=== PATIENT | male | born 1945 | race Caucasian/White ===

== ENCOUNTER 2016-10-23 19:51 | Inpatient (IN) | payer MEDICARE, BC ==
[~2016-10-23] VITALS: Ht 185.4 cm; Wt 117.0 kg
[2016-10-24] VITALS (14 sets, daily range): BP systolic 128–166; BP diastolic 61–83; PULSE 70–86; RESP 16–20; TEMP 96.5–98.2; O2SAT 97–100
[2016-10-24] MEDS ORDERED: NALOXONE HCL 0.4 MG/ML AMP IV PRN (01:45)
--- NOTE | 2016-10-24 02:43 | HHI.HP ---
HPI Service [facility] Primary Care Physician Hallie Norris M.D. Admission Diagnosis Pancytopenia, right lobe pneumonia . Diagnoses: (1) Pancytopenia Chief Complaint: Low Platelets Travel History International Travel<30 Days: No Contact w/Intl Traveler <30 Da: No History of Present Illness Written by Tierney Rae, acting as scribe for Dr. Lew on 10/24/16 at 02:43. The patient states that he had sciatic pain for about 3 weeks and not moving around much On Thursday10/20/16, he was walking to the mailbox, felt short of breath, called PCP Went to PCP, EKG was done and PCP sent him to [facility] Went to hospital and he was found to have thrombocytopenia, emphysema, and right lobe pneumonia (tx with Cefepime and Doxycycline) He was seen by Dr. Rice at [facility] Bone biopsy was planned on morning The patient was not happy with the care at [facility] His addiction social worker, Dr. 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 Denies chest pain, nausea/vomiting , or diarrhea. . Review of Systems Except as stated in HPI: all other systems reviewed are Neg Past Family Social History Past Medical History Vocal polyps in 20's Rheumatic Fever - did not affect his heart Denies hypertension, CAD, CHF, respiratory problems, liver problems, kidney problems, CVA, seizures, or thyroid problems. Denies any history of cancer. . Past Surgical History Appendectomy Vocal polyps removed in his 20's . Reported Medications Baby aspirin daily p.o. . Allergies: Coded Allergies: No Known Allergies (Unverified , 10/24/16) Active Ordered Medications Current Medications Sodium Chloride (NS Flush) 2 ml UNSCH PRN IV FLUSH FLUSH AFTER USING IV ACCESS ; Start 10/24/16 at 01:45 Sodium Chloride (NS Flush) 2 ml BID IV FLUSH ; Start 10/24/16 at 09:00 Naloxone HCl (Narcan Inj) 0.4 mg UNSCH PRN IV SEE LABEL COMMENTS; Start at 01:45 . Family History Father from COPD Mother from valvular heart disease Brother with valvular heart disease secondary to rheumatic fever . Social History Tobacco: 1 PPD until age 36 y/o Alcohol: rare use Illicit Drugs: denies . Physical Exam Vital Signs Vital Signs Date Time Temp Pulse Resp B/P Pulse Ox O2 Delivery O2 Flow Rate FiO2 10/24/16 02:00 97.5 86 20 139/63 97 Physical Exam GENERAL: This is a pleasant, pale patient, in no apparent distress. SKIN: No rashes. Cool and dry. Multiple bruises noted on upper extremities. HEAD: Atraumatic. Normocephalic. EYES: No scleral icterus. No injection or drainage. ENT: Nose without bleeding, purulent drainage. NECK: Trachea midline. No JVD or lymphadenopathy. CARDIOVASCULAR: Regular rate and rhythm without murmurs, gallops, or rubs. RESPIRATORY: Clear to auscultation. Breath sounds equal bilaterally. No wheezes , rales, or rhonchi. GASTROINTESTINAL: Abdomen soft, non-tender, nondistended. No guarding. MUSCULOSKELETAL: Extremities without clubbing, cyanosis, or edema. No calf tenderness. NEUROLOGICAL: Awake and alert. Motor and sensory grossly within normal limits. Normal speech. . Laboratory Records reviewed from [facility] demonstrate pancytopenia . Imaging From records reviewed from [facility]: CT pulmonary angiogram negative for pulmonary embolism on 10/20 Assessment and Plan Problem List: (1) Pancytopenia ICD Code: D61.818 Status: Acute (2) Pneumonia ICD Code: J18.9 Status: Acute Assessment and Plan Pancytopenia - per patient, ALL suspected by Dr. Rice - consult Dr. Rice - assistance appreciated Right lobe pneumonia - per record review from [facility] - continue Cefepime IV and p.o. Doxycycline - duonebulizers q4h PRN sob/wheezing DVT prophylaxis - SCDs/TEDs Echo report finalized at [facility] but the hospital rep told the charge nurse that they were unable to print the report for our records- per charge nurse Tierney Gibson RN . This note was transcribed by scribe [Tierney Rae]. I, Dr. Suman Lew personally performed the history, physical exam, and medical decision making; and confirmed the accuracy of the information in the transcribed note. Authenticated by Dr. Suman Lew on 10/24/16 at 02:43. Discussed Condition With Patient . Physician Certification 2 Midnight Certification Type: Admission for Inpatient Services Order for Inpatient Services The services are ordered in accordance with Medicare regulations or non- Medicare payer requirements, as applicable. In the case of services not specified as inpatient-only, they are appropriately provided as inpatient services in accordance with the 2-midnight benchmark. Estimated LOS (days): 3 days is the estimated time the patient will need to remain in the hospital, assuming treatment plan goals are met and no additional complications. Post-Hospital Plan: Home Problem Qualifiers (1) Pneumonia: Qualified Code: J18.9 - Pneumonia of right lung due to infectious organism, unspecified part of lung Tierney Rae Oct 24, 2016 02:43 Suman Lew MD Oct 24, 2016 08:31
[2016-10-24] MEDS ORDERED: RESP: ALBUTEROL 2.5 MG/IPRATROPIUM 0.5 MG NEB (PRN) NEB (03:45)
[2016-10-24] MEDS: CEFEPIME INJ 2,000 MG in SODIUM CHLORIDE 0.9% INJ 100 ML IV SCH ×3 (03:51→20:29)
--- NOTE | 2016-10-24 08:14 | MB ---
cc: FRANCISCO JAVIER VANCE MD, STACI M.D. DATE OF CONSULTATION 10/24/2016 DATE OF 1945 [address] 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 CHIEF COMPLAINT The patient reports fatigue, weakness, loss of appetite, breathlessness with exertion and easy bruising. HISTORY OF PRESENT ILLNESS Mr. Chou is a very pleasant 71-year-old man whom I initially saw two days ago as an inpatient consultation at [facility]. I was asked to see the patient for evaluation of anemia and thrombocytopenia which were acute in onset, peripheral smear findings indicated immature circulating cells. 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 He was advised transfer to [facility] for further workup and inpatient induction systemic chemotherapy. Mr. Chou reports being in his usual good state of health up until about two weeks ago, he began at that point to notice breathlessness with exertion, especially while he was out doing groceries. Previous to that, he was able to walk uninhibited for three or four miles at a time and able to perform all activities of daily living independently. He denies having any serious medical comorbid conditions other than obesity. On the day of presentation to the hospital at [facility], the patient noted breathlessness with walking just several feet, he noted palpitations and felt nauseated. He presents to his PCP's office who referred him directly to [facility] for further evaluation. At [facility]. He underwent CT angiogram of the chest and was found to have no evidence of pulmonary emboli or mediastinal lymphadenopathy. Blood work indicated a hemoglobin of 9.5 gm/dl and a platelet count of 30,000. Noted also in circulation were metamyelocytes and myelocytes. Hematology consultation was requested. Peripheral blood was sent off for a flow cytometry and his peripheral smear was evaluated by pathology. Peripheral blood flow cytometry indicated the above findings. He was then was transferred to [facility]. PAST MEDICAL HISTORY Obesity PAST SURGICAL HISTORY 1. Appendectomy 2. He underwent polyp removal from his larynx which were benign. FAMILY HISTORY He tells me he has a sister who is a breast cancer survivor, but other than that, no oncologic diagnoses. His mother at an advanced age. His father of complications of smoking. SOCIAL HISTORY The patient is , he lost his about four years ago to metastatic ovarian cancer. The patient has three adult children all of whom live in the [facility] area. He is also originally from [place], he worked various jobs including with the [employer]. 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 He reports being a former smoker. He smoked very briefly, but quit over 30 years ago. He denies ever having been a heavy drinker. ALLERGIES NO KNOWN DRUG ALLERGIES. CURRENT INPATIENT MEDICATIONS 1. Cefepime 2 grams IV q.8 h. 1. Albuterol/Ipratropium nebulizers every 4 hours as needed for wheezing. 2. Doxycycline 100 mg p.o. q. 12. REVIEW OF SYSTEMS A 13-point review of systems were obtained. The following are the pertinent positives: CONSTITUTIONAL: The patient reports fatigue, he denies loss of appetite, denies fevers, chills, night sweats or unintended weight loss. HEENT: Denies headaches, blurry vision, numbness or tingling of the face, difficulty swallowing or soreness in the throat. RESPIRATORY: Reports difficulty breathing with minimal exertion. Denies cough, hemoptysis, pleuritic chest pain. CARDIOVASCULAR: Denies angina-like chest pain, PND, orthopnea. He reports palpitations and exertional dyspnea. GI: Denies nausea, vomiting, diarrhea hematochezia, melena, abdominal distension, jaundice. : No complaints. MUSCULOSKELETAL: No complaints of chronic lower back pain. [employer] CL[employer]: No focal sensory motor deficits. PHYSICAL EXAMINATION VITAL SIGNS: Temperature 97.9 degrees Fahrenheit, heart rate 70 beats minute, respiratory rate 18, blood pressure 128/61, O2 sats 98% on room air. GENERAL APPEARANCE: Mr. Chou is an elderly male, he is tall and heavy-set, he has a very pleasant disposition and is in no acute distress. HEENT: Head atraumatic, normocephalic, conjunctivae are mildly pale. Sclerae are anicteric, EOMI, PERRLA, oral exam no pharyngeal erythema. NECK: No palpable cervical or supraclavicular lymphadenopathy. RESPIRATORY: Good air movement bilaterally. No added breath sounds. CARDIOVASCULAR: Regular rate and rhythm, S1-S2. No obvious murmurs, gallops. ABDOMEN: Obese belly, soft, nontender, nondistended, no palpable organ enlargement, specifically no hepatosplenomegaly. EXTREMITIES: Lower extremities, no pretibial edema. No calf tenderness. JAZ/LYMPH EXAMINATION: No cervical lymphadenopathy, no axillary lymphadenopathy and no inguinal lymphadenopathy. [employer]ERK: Exam without any abnormal findings specifically no motor or sensory deficits. LABORATORY FINDINGS Blood work dated 10/21/2016: WBC count 4.4, hemoglobin 9.5 gm/dl, hematocrit 28.1%, MCV 105.6, RDW 18, platelet count 30,000. Manual differential: Absolute neutrophil count 1.6, absolute lymphocyte count 2.2. Noted is polychromasia, metamyelocytes and myelocytes. Chemistries dated 10/21/2016: Sodium 142, potassium 4.4, chloride 103, bicarbonate 25, glucose 162, BUN 22, creatinine 0.9, calcium 9.3, troponin less than 0.01. IMAGING STUDIES Chest x-ray dated 10/20/2016: Indicates no evidence of acute cardiopulmonary disease. CT chest with and without contrast dated 10/20/2016 indicates no evidence of pulmonary embolus. Mild to moderate central lobar emphysematous changes without pneumothorax. Patchy reticular nodular infiltration seen focally involving the lower portion of the anterior right upper lobe that could represent developing alveolitis versus interstitial infiltrate. No evidence of mediastinal lymphadenopathy. Peripheral blood pathologist review dated 10/22/2016: Peripheral smear macrocytic anemia with moderate anisopoikilocytosis and nucleated red blood cells. Severe thrombocytopenia. Histopathologic changes are suggestive of underlying hematopoietic disorder. Large nucleated cells were noted with significant dyspoietic findings. Peripheral blood was sent off for flow cytometry. ASSESSMENT Mr. Chou is a very pleasant 71-year-old man who had been in his usual good state of health up until two weeks ago. He began to subsequently notice progressive difficulty breathing with exertion. The symptoms progressed to the point where he presented to [facility] on 10/20/2016. He was noted to be anemic and thrombocytopenic. Both findings were new. Peripheral smear findings indicated the presence of large nucleated cells which were immature in appearance. 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 He will also require analysis for the BCR/ABL mutation (the [place] chromosome). Additionally, I will request final results of his echocardiogram which was done earlier this week at [facility] as well as any additional imaging studies which were done. I believe he has not yet undergone CT of the abdomen and this will be required to identify any intra-abdominal lymphadenopathy. CT angiogram of the chest was negative for mediastinal lymphadenopathy which essentially rules out the possibility of him having underlying acute lymphoblastic lymphoma. Additionally, the patient will require imaging studies of his head as well as an eventual lumbar puncture for CSF fluid analysis as well as intrathecal chemotherapy should a diagnosis of B-cell ALL be identified. I did have a talk with the patient today, I explained to him the seriousness of his diagnosis and the need to urgently pursue the definitive diagnosis and then treat his disease with the appropriate chemotherapeutic regimens. There are various choices and treatment options. The treatment options vary depending on whether an individual has [place] chromosome positive disease or whether the patient has mature B-cells in the marrow which are positive for CD20 verses CD20 negative disease. At any rate, I have reviewed the NCCN guidelines for the appropriate pretreatment workup. I have ordered a hepatitis panel as well. Tumor lysis syndrome labs were also ordered. CBC and CMP was ordered as well. He will require a PICC line or other central access which has also been ordered. The hematology service will follow along closely. MD CARLOS Santoyo/KRISTINE /7:14 AM /7:47 AM ZULY
[2016-10-24 08:44] LABS: BASOPHIL % 0.2 % (0.0-2.0); EOSINOPHIL % 0.5 % (0.0-4.0); HEMATOCRIT 23.5 % (39.0-51.0); LYMPH % 49.9 % (9.0-44.0); LYMPHOCYTE # 1.1 TH/MM3 (1.0-4.8); MEAN CELL VOLUME 104.6 FL (80.0-100.0); MEAN CORPUSCULAR HEMOGLOBIN 36.1 PG (27.0-34.0); MEAN CORPUSCULAR HGB CONC 34.6 % (32.0-36.0); MONO % 5.9 % (0.0-8.0); NEUT % 43.5 % (16.0-70.0); PLATELET COUNT 23 TH/MM3 (150-450); RED BLOOD COUNT 2.25 MIL/MM3 (4.50-5.90); RED CELL DISTRIBUTION WIDTH 18.3 % (11.6-17.2); WHITE BLOOD COUNT 2.2 TH/MM3 (4.0-11.0)
[2016-10-24 08:50] LABS: HEMO FLAGS AUTO DIFF
[2016-10-24 08:54] LABS: APTT (PATIENT) 23.4 SEC (24.3-30.1); PROTHROMBIN TIME - PATIENT 11.5 SEC (9.8-11.6)
[2016-10-24 08:59] LABS: ANION GAP 10 MEQ/L (5-15); BICARBONATE 26.2 MEQ/L (21.0-32.0); BLOOD UREA NITROGEN 28 MG/DL (7-18); CHLORIDE 102 MEQ/L (98-107); GLOMERULAR FILTRATION RATE 85 ML/MIN (>89); SODIUM (NA) 138 MEQ/L (136-145)
[2016-10-24 09:04] LABS: ALKALINE PHOSPHATASE 50 U/L (45-117); ALT (GPT) 27 U/L (12-78); AST (GOT) 22 U/L (15-37); TOTAL BILIRUBIN ADULT 0.6 MG/DL (0.2-1.0); URIC ACID 10.6 MG/DL (2.6-7.2)
[2016-10-24 09:45] LABS: BANDS 10 % (0-6); BASOPHILS 1 % (0-2); BLASTS 4 % (0-0); CORRECTED NUCLEATED RBC 3 /100 WBC (0-0); NEUTROPHIL # MANUAL DIFF 0.9 TH/MM3 (1.8-7.7); POLYS (SEG NEUTROPHILS) 31 % (16-70); WBC DIFF SAMPLE 100
[2016-10-24 09:46] LABS: OVALOCYTES 1+ (NORMAL); PLATELET ESTIMATE SMEAR RARE (NORMAL); PLATELET MORPHOLOGY NORMAL (NORMAL); SCAN/DIFF FINAL DIFF MANUAL
[2016-10-24 09:47] LABS: ACANTHOCYTES OCC (NORMAL)
[2016-10-24] MEDS: DOXYCYCLINE HYCLATE 100 MG TAB PO SCH ×2 (09:47→20:29)
[2016-10-24] MEDS: SODIUM CHLORIDE 0.9% FLUSH 10 ML FLUSH IV FLUSH SCH ×2 (09:47→20:30)
--- NOTE | 2016-10-24 11:37 | HHI.PR ---
Subjective Remarks Follow up pancytopenia, pneumonia. Patient going for PICC placement. Denies chest pain, dyspnea today. Objective Vitals Vital Signs Date Time Temp Pulse Resp B/P Pulse Ox O2 Delivery O2 Flow Rate FiO2 10/24/16 08:43 98 10/24/16 08:00 96.6 76 18 155/70 99 10/24/16 04:00 97.9 70 18 128/61 98 10/24/16 03:35 70 10/24/16 02:00 97.5 86 20 139/63 97 I/O 10/23/16 10/23/16 10/23/16 10/24/16 10/24/16 10/24/16 07:00 15:00 23:00 07:00 15:00 23:00 Intake Total 240 ml Balance 240 ml Intake Oral 240 ml Result Diagram: 10/24/1634 10/24/1634 Objective Remarks General: Obese male in no acute distress. Heart: Regular rate and rhythm. No murmur. Lungs: Clear to auscultation bilaterally. No wheezes, rales, or rhonchi. Breathing is nonlabored. Abdomen: Soft, nontender, nondistended. Extremities: No lower extremity edema. Psych: Alert and oriented. Urinary Catheter: No Vascular Central Line Catheter: No A/P Problem List: (1) Pancytopenia ICD Code: D61.818 Status: Acute (2) Pneumonia ICD Code: J18.9 Status: Acute Assessment and Plan 1. Pancytopenia: Suspect ALL per oncology. Appreciate oncology recommendations. 2. Pneumonia: Continue cefepime, doxycycline. DuoNeb as needed. 3. DVT prophylaxis: SCDsKRISTEN. Problem Qualifiers (1) Pneumonia: Qualified Code: J18.9 - Pneumonia of right lung due to infectious organism, unspecified part of lung Hugo Dumont MD Oct 24, 2016 11:36
--- NOTE | 2016-10-24 13:11 | PD.RAD ---
Post Procedure Progress Note Pre Procedure Diagnosis: (1) Pancytopenia Post Procedure Diagnosis: (1) Pancytopenia (2) Pneumonia Procedure Date: Oct 24, 2016 Supervising Radiologist: Serafin Saba Proceduralist/Assist: RT Prosper(R)() Anesthesia: Local Plan of Activity Patient to Unit: Nursing Unit Patient Condition: Good See PACS Report for procedural detail/treatment PICC Device Right PICC line placement single lumen Paraguayan: 4 PICC Line Length (cm): 44 Catheter: Power PICC PICC line can be used immediately Serafin Saba MD Oct 24, 2016 13:11
[2016-10-24] MEDS ORDERED: LIDOCAINE HCL 1% 20 ML VIAL ONE (15:36)
[2016-10-24] MEDS ORDERED: fentaNYL CITRATE 250 MCG/5 ML AMP ONE (15:36)
[2016-10-24] MEDS ORDERED: MIDAZOLAM HCL 2 MG/2 ML VIAL ONE (15:36)
[2016-10-24] MEDS ORDERED: IOHEXOL 350 MG/ML 10 ML VIAL (for RAD DIAG) IV ONE (16:08)
--- NOTE | 2016-10-24 16:48 | RADRPT ---
EXAM DATE/TIME: 10/24/2016 12:01 [facility] COMPARISON: No previous studies available for comparison. INDICATIONS : Patient with a history of shortness of breath and acute lymphoblastic leukemia. MEDICAL HISTORY : Vocal polyps Rheumatic fever SURGICAL HISTORY : Appendectomy ENCOUNTER: Initial ACUITY: 3 weeks PAIN SCORE: 0/10 FLUORO TIME: 0.2 minutes IMAGE SERIES: 1 ACCESS: Right basilic vein DEVICE(S): 1.) 4 Serbian single lumen 44 cm Xcela Power PICC PROCEDURE : 1. Ultrasound guidance for venous catheterization. 2. Fluoroscopic guidance. 3. Ultrasound & fluoroscopic guided central venous Power PICC line placement. The risks, benefits and alternatives to the procedure were explained and verbal and written consent w as obtained. The site was prepped in sterile fashion. Full sterile technique was used, including ca p, mask, sterile gloves and gown and a large sterile sheet. Hand hygiene and 2% chlorhexidine prep w as utilized per protocol for cutaneous antisepsis with appropriate dry time for site. The skin and s ubcutaneous tissues were infiltrated with local anesthetic solution. Under direct ultrasound guidance, a suitable vein was accessed and a measuring guidewire was introduc ed and positioned in the central venous system. The ultrasound images depicting access guidance were saved and stored to PACS for permanent record. A Power Injectable PICC line was cut to prescribed length and introduced, positioned with tip at the cavoatrial junction level. The line was flushed and secured per protocol. CONCLUSION: 1. Uncomplicated central venous Power PICC line placement. 2. The PICC line can be used immediately. Serafin Saba MD on October 24, 2016 at 16:46 Board Certified Radiologist. This report was verified electronically.
--- NOTE | 2016-10-24 16:50 | PD.RAD ---
Post CT Procedure Prog Note Pre Procedure Diagnosis: (1) Pancytopenia Post Procedure Diagnosis: (1) Pancytopenia Procedure Date: Oct 24, 2016 Supervising Radiologist: Balwinder Swenson Anesthesia: Conscious Sedation Plan of Activity Patient to Unit: [facility] Patient Condition: Good See PACS Report for procedural detail/treatment Biopsy Imaging Guidance: CT Side: Left Biopsy Procedure: Bone Marrow Site: left iliac bone marrow biopsy Specimen: Core Biopsy Plan to [facility] for monitoring then return to floor. Balwinder Swenson MD Oct 24, 2016 16:50
--- NOTE | 2016-10-24 17:01 | RADRPT ---
EXAM DATE/TIME: 10/24/2016 16:09 [facility] COMPARISON: CT ABDOMEN & PELVIS W CONTRAST, October 24, 2016, 15:57. INDICATIONS : Acute lymphoblastic leukenia. SEDATION TIME: 30 minutes BIOPSY SITE: MEDICATION(S): 1.) 3 mg midazolam (Versed) IV 2.) 150 mcg fentanyl (Sublimaze) IV DEVICE(S): 1.) 11 gauge Bone biopsy needle MEDICAL HISTORY : None. SURGICAL HISTORY : Appendectomy. ENCOUNTER: Initial ACUITY: 1 day PAIN SCORE: 0/10 LOCATION: Left iliac A total of three core specimen(s) were obtained and sent to the laboratory for pathologic evaluation. PROCEDURE: 1. CT guided bone marrow biopsy. 2. Conscious sedation with continuous EKG and oximetry monitoring. 3. EKG and oximetry remained stable throughout the procedure. Prior to the procedure informed consent was obtained. Any appropriate prior imaging studies were rev iewed. Using automated exposure control and adjustment of the mA and/or kV according to patient size , radiation dose was kept as low as reasonably achievable to obtain optimal diagnostic quality images . DICOM format image data is available electronically for review and comparison. The site was prepped in a sterile fashion. Full sterile technique was used, including cap, mask, robin rile gloves and gown and a large sterile sheet. Hand hygiene and 2% chlorhexidine and/or betadine/al cohol prep was utilized per protocol for cutaneous antisepsis. The skin and subcutaneous tissues wer e infiltrated with local anesthetic solution. With CT guidance the posterior aspect of the left iliac bone was localized. Biopsy was performed usin g the prescribed needle as above. Following biopsy marrow aspiration was performed with repeat punct ure. Adequate hemostasis was obtained with compression at the puncture site. Conscious sedation was performed with the prescribed dosages and duration as above in the presence of an independent trained radiology nurse to assist in the monitoring of the patient. EKG and oximetry remained stable throughout the procedure. The patient tolerated the procedure well and there were no complications. The patient was sent to Radiology Outpatient Unit in stable condition. CONCLUSION: 1. Uncomplicated CT guided bone marrow aspirate. 2. Uncomplicated CT guided bone marrow biopsy. Balwinder Swenson MD on October 24, 2016 at 16:58 Board Certified Radiologist. This report was verified electronically.
[2016-10-24 17:05] LABS: BONE MARROW PROCESSING COMPLETE; IRON STAIN DONE; JENNER GIEMSA STAIN DONE
--- NOTE | 2016-10-24 17:07 | RADRPT ---
EXAM DATE/TIME: 10/24/2016 15:57 [facility] COMPARISON: CT NEEDLE BIOPSY BONE MARROW, October 24, 2016, 16:09. INDICATIONS : Shortness of Breath evaluate for metastases. IV CONTRAST: 100 cc Omnipaque 350 (iohexol) IV ORAL CONTRAST: No oral contrast ingested. RADIATION DOSE: 16.47 CTDIvol (mGy) MEDICAL HISTORY : Leukemia SURGICAL HISTORY : Appendectomy. ENCOUNTER: Initial ACUITY: 1 day PAIN SCALE: 10/10 LOCATION: Bilateral cranial TECHNIQUE: Volumetric scanning of the abdomen and pelvis was performed. Using automated exposure control and ad justment of the mA and/or kV according to patient size, radiation dose was kept as low as reasonably achievable to obtain optimal diagnostic quality images. DICOM format image data is available electro nically for review and comparison. FINDINGS: LOWER LUNGS: The visualized lower lungs are clear. LIVER: The liver is diffusely hypodense. There are no suspicious lesions or evidence of biliary duct dilatat ion. Small stones are identified within the gallbladder. SPLEEN: Normal size without lesion. PANCREAS: Within normal limits. KIDNEYS: Normal in size and shape. There is no mass, stone or hydronephrosis. ADRENAL GLANDS: Within normal limits. VASCULAR: There is no aortic aneurysm. BOWEL/MESENTERY: Diverticula are seen throughout the sigmoid colon. The stomach, small bowel, and colon demonstrate no acute abnormality. There is no free intraperitoneal air or fluid. ABDOMINAL WALL: Within normal limits. RETROPERITONEUM: There is no lymphadenopathy. BLADDER: No wall thickening or mass. REPRODUCTIVE: Within normal limits. INGUINAL: Bilateral inguinal hernias are noted. There is no evidence of adenopathy. MUSCULOSKELETAL: Within normal limits for patient age. CONCLUSION: 1. Hepatic steatosis. 2. No evidence of metastatic disease or suspicious mass. 3. Bilateral inguinal hernias. Triston Espinoza MD on October 24, 2016 at 17:02 Board Certified Radiologist. This report was verified electronically.
[2016-10-24] MEDS: LACTOBACILLUS ACIDOPHILUS TAB PO SCH (18:19)
[2016-10-25] VITALS (11 sets, daily range): BP systolic 128–169; BP diastolic 61–77; PULSE 73–96; RESP 16–20; TEMP 96.7–99.1; O2SAT 97–100
[2016-10-25] MEDS: CEFEPIME INJ 2,000 MG in SODIUM CHLORIDE 0.9% INJ 100 ML IV SCH ×3 (04:52→21:18)
[2016-10-25 05:44] LABS: BASOPHIL % 0.3 % (0.0-2.0); EOSINOPHIL % 0.6 % (0.0-4.0); LYMPH % 62.5 % (9.0-44.0); LYMPHOCYTE # 1.1 TH/MM3 (1.0-4.8); MEAN CELL VOLUME 105.1 FL (80.0-100.0); MEAN CORPUSCULAR HEMOGLOBIN 36.1 PG (27.0-34.0); MEAN CORPUSCULAR HGB CONC 34.4 % (32.0-36.0); MONO % 4.5 % (0.0-8.0); NEUT % 32.1 % (16.0-70.0); RED BLOOD COUNT 1.97 MIL/MM3 (4.50-5.90); WHITE BLOOD COUNT 1.7 TH/MM3 (4.0-11.0)
[2016-10-25 05:58] LABS: HEMO FLAGS AUTO DIFF
[2016-10-25 06:04] LABS: HEMATOCRIT 20.7 % (39.0-51.0); POTASSIUM 4.3 MEQ/L (3.5-5.1)
[2016-10-25 06:05] LABS: AUTOMATED NEUTROPHIL # 0.5 TH/MM3 (1.8-7.7); PLATELET COUNT 16 TH/MM3 (150-450)
[2016-10-25 07:42] LABS: BANDS 3 % (0-6); CORRECTED NUCLEATED RBC 2 /100 WBC (0-0); EOSINOPHILS 1 % (0-4); METAMYELOCYTES 1 % (0-1); NEUTROPHIL # MANUAL DIFF 0.6 TH/MM3 (1.8-7.7); POLYS (SEG NEUTROPHILS) 29 % (16-70); WBC DIFF SAMPLE 100
[2016-10-25 07:43] LABS: KERATOCYTES OCC (NORMAL); OVALOCYTES 1+ (NORMAL); PLATELET ESTIMATE SMEAR LOW (NORMAL); PLATELET MORPHOLOGY NORMAL (NORMAL); SCAN/DIFF FINAL DIFF MANUAL; STOMATOCYTES 1+ (NORMAL)
[2016-10-25] MEDS: LACTOBACILLUS ACIDOPHILUS TAB PO SCH ×3 (07:45→17:48)
[2016-10-25] MEDS: DOXYCYCLINE HYCLATE 100 MG TAB PO SCH ×2 (07:45→21:19)
[2016-10-25] MEDS: SODIUM CHLORIDE 0.9% FLUSH 10 ML FLUSH IVF SCH (07:46)
[2016-10-25] MEDS: SODIUM CHLORIDE 0.9% FLUSH 10 ML FLUSH IV FLUSH SCH ×2 (07:46→21:19)
[2016-10-25] MEDS ORDERED: ACETAMINOPHEN 325 MG TAB PO PRN ×2 (12:00→18:00)
[2016-10-25] MEDS ORDERED: FUROSEMIDE 20 MG/2 ML VIAL IV ONE (12:00)
[2016-10-25] MEDS ORDERED: SODIUM CHLOR 0.9% 250 ML INJ 250 ML IV ONE (12:00)
[2016-10-25] MEDS ORDERED: diphenhydrAMINE HCL 25 MG CAP PO PRN (12:00)
--- NOTE | 2016-10-25 12:07 | PD.ONC.PN ---
Subjective Subjective Remarks Afebrile overnight Patient states he still has shortness of breath that is not overall improved Noticed some bruising to his right flank Objective Data Date Time Temp Pulse Resp B/P Pulse Ox O2 Delivery O2 Flow Rate FiO2 10/25/16 08:00 97.3 85 16 156/72 98 10/25/16 04:00 98.1 73 16 128/61 100 10/25/16 00:00 96.7 88 18 166/77 97 10/24/16 20:00 97.0 83 18 151/68 99 10/24/16 18:43 98.2 77 20 141/63 100 10/24/16 17:30 80 16 129/72 98 10/24/16 17:15 82 16 143/76 98 10/24/16 17:00 83 16 149/79 98 10/24/16 16:45 98.2 81 16 157/83 97 10/24/16 12:26 75 10/24/16 12:20 96.5 78 18 166/67 98 10/25/16 10/25/16 10/25/16 06:59 14:59 22:59 Intake Total 240 ml Balance 240 ml Result Diagram: 10/25/16 0450 10/25/16 0450 Laboratory Results Laboratory Tests Test 10/25/16 04:50 White Blood Count 1.7 TH/MM3 Red Blood Count 1.97 MIL/MM3 Hemoglobin 7.1 GM/DL Hematocrit 20.7 % Mean Corpuscular Volume 105.1 FL Mean Corpuscular Hemoglobin 36.1 PG Mean Corpuscular Hemoglobin 34.4 % Concent Red Cell Distribution Width 18.0 % Platelet Count 16 TH/MM3 Mean Platelet Volume 7.4 FL Neutrophils (%) (Auto) 32.1 % Lymphocytes (%) (Auto) 62.5 % Monocytes (%) (Auto) 4.5 % Eosinophils (%) (Auto) 0.6 % Basophils (%) (Auto) 0.3 % Neutrophils # (Auto) 0.5 TH/MM3 Lymphocytes # (Auto) 1.1 TH/MM3 Monocytes # (Auto) 0.1 TH/MM3 Eosinophils # (Auto) 0.0 TH/MM3 Basophils # (Auto) 0.0 TH/MM3 CBC Comment AUTO DIFF Differential Total Cells 100 Counted Neutrophils % (Manual) 29 % Band Neutrophils % 3 % Lymphocytes % 66 % Eosinophils % 1 % Neutrophils # (Manual) 0.6 TH/MM3 Metamyelocytes 1 % Nucleated Red Blood Cells 2 /100 WBC Differential Comment FINAL DIFF MANUAL Platelet Estimate LOW Platelet Morphology Comment NORMAL Ovalocytes 1+ Stomatocytes 1+ Keratocytes OCC Sodium Level 141 MEQ/L Potassium Level 4.3 MEQ/L Chloride Level 104 MEQ/L Carbon Dioxide Level 25.0 MEQ/L Anion Gap 12 MEQ/L Blood Urea Nitrogen 26 MG/DL Creatinine 0.89 MG/DL Estimat Glomerular Filtration 85 ML/MIN Rate Random Glucose 82 MG/DL Calcium Level 8.1 MG/DL Administered Medications Medications (Trade) Dose Ordered Sig/Daniel Route PRN Reason Start Time Stop Time Status Last Admin Dose Admin Sodium Chloride 2 ml 2 ml BID IV FLUSH 10/24/16 09:00 10/25/16 07:46 Cefepime HCl/ Sodium Chloride (Maxipime Inj/NS Inj) 100 ml @ 200 mls/hr Q8H IV 10/24/16 04:00 10/25/16 04:52 Doxycycline Hyclate (Vibratab) 100 mg Q12HR PO 10/24/16 09:00 10/25/16 07:45 Heparin Sodium (Porcine) (Heparin Central Flush) DAILY IV FLUSH 10/25/16 09:00 10/25/16 07:45 Lactobacillus Acidophilus (Lactinex) 1 tab TID PO 10/24/16 18:00 10/25/16 07:45 Objective Remarks GENERAL: Overweight middle-aged male sitting up on side of bed in no acute distress SKIN: Warm and dry. Moderate-sized hematoma to right flank. Small bruise right upper arm PICC insertion site. HEAD: Normocephalic. EYES: No injection or drainage. NECK: Supple, trachea midline. CARDIOVASCULAR: + S1/S2 RESPIRATORY: Clear posteriorly. Breathing unlabored at rest. GASTROINTESTINAL: Abdomen soft, non-tender, nondistended. EXTREMITIES: No cyanosis, or edema. NEUROLOGICAL: No obvious focal deficit. Awake, alert, and oriented x3. Assessment/Plan Problem List: (1) Acute lymphocytic leukemia Status: Acute Plan: -- Awaiting bone marrow biopsy results -- Noted to have metamyelocytes and myelocytes in circulation -- CT abdomen shows no diffuse lymphadenopathy -- CT angiography of the chest showed no mediastinal lymphadenopathy -- Hepatitis panel negative Hx/Workup: Patient began to notice approximately 2 weeks ago that he is having breathlessness with exertion. This is concerning to him as he is usually able to walk approximately 3-4 miles with no problems. His PCP advised that the go to the hospital for evaluation. 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 He was transferred to [place] for further workup and inpatient induction chemotherapy. Assessment 71-year-old male admitted for workup and induction chemotherapy for a diagnosis of B-cell acute lymphocytic leukemia Plan 1. Await bone marrow biopsy for BCR/ABL results. 2. Will transfuse packed red blood cells and platelets today, as the patient has bruising and remains short of breath 3. Monitor CBC 4. Recommendations of treatment will depend on results of bone marrow biopsy FISH panel results. 5. Supportive care Attending Statement The exam, history, and the medical decision-making described in the above note were completed with the assistance of the mid-level provider. I reviewed and agree with the findings presented. I attest that I had a [id number] encounter with the patient on the same day, and personally performed and documented my assessment and findings in the medical record. Pt seen and examined. 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 BCR-ABL still pending. Discussed with patient dx and pending final results. Discussed w/ Dr. Rice plan for Hyper CVAD + Rituxan +/- Gleevec. Imelda Michaels Oct 25, 2016 12:07 Svitlana Paula MD Oct 25, 2016 15:47
[2016-10-25] MEDS ORDERED: ENALAPRILAT 1.25 MG/ML VIAL IV PUSH PRN (15:45)
--- NOTE | 2016-10-25 15:49 | HHI.PR ---
Subjective Remarks Follow up pancytopenia, pneumonia. Patient has no complaints at this time. He does have some discomfort at the site of the biopsy. No chest pain, dyspnea. Objective Vitals Vital Signs Date Time Temp Pulse Resp B/P Pulse Ox O2 Delivery O2 Flow Rate FiO2 10/25/16 15:27 98.4 85 20 150/70 100 10/25/16 15:15 98.1 82 20 169/68 98 10/25/16 12:00 91 10/25/16 12:00 96.7 96 18 165/70 98 10/25/16 08:00 97.3 85 16 156/72 98 10/25/16 04:00 98.1 73 16 128/61 100 10/25/16 00:00 96.7 88 18 166/77 97 10/24/16 20:00 97.0 83 18 151/68 99 10/24/16 18:43 98.2 77 20 141/63 100 10/24/16 17:30 80 16 129/72 98 10/24/16 17:15 82 16 143/76 98 10/24/16 17:00 83 16 149/79 98 10/24/16 16:45 98.2 81 16 157/83 97 I/O 10/24/16 10/24/16 10/24/16 10/25/16 10/25/16 10/25/16 07:00 15:00 23:00 07:00 15:00 23:00 Intake Total 240 ml 110 ml 240 ml 240 ml 450 ml Balance 240 ml 110 ml 240 ml 240 ml 450 ml Intake Oral 240 ml 240 ml 240 ml IV Total 110 ml 450 ml # Voids 3 1 # Bowel Movements 2 Result Diagram: 10/25/16 0450 10/25/16 0450 Imaging Last Impressions PICC Line Insertion 10/24/16 0000 Signed Impressions: Service Date/Time: Monday, October 24, 2016 12:01 - CONCLUSION: 1. Uncomplicated central venous Power PICC line placement. 2. The PICC line can be used immediately. Serafin Saba MD Bone Biopsy CT 10/24/16 0000 Signed Impressions: Service Date/Time: Monday, October 24, 2016 16:09 - CONCLUSION: 1. Uncomplicated CT guided bone marrow aspirate. 2. Uncomplicated CT guided bone marrow biopsy. Balwinder Swenson MD Abdomen/Pelvis CT 10/24/16 0000 Signed Impressions: Service Date/Time: Monday, October 24, 2016 15:57 - CONCLUSION: 1. Hepatic steatosis. 2. No evidence of metastatic disease or suspicious mass. 3. Bilateral inguinal hernias. Triston Espinoza MD Objective Remarks General: Obese male in no acute distress. Heart: Regular rate and rhythm. No murmur. Lungs: Clear to auscultation bilaterally. No wheezes, rales, or rhonchi. Breathing is nonlabored. Abdomen: Soft, nontender, nondistended. Extremities: No lower extremity edema. Psych: Alert and oriented. Procedures 10/24/16 PICC line placement 10/24/16 bone marrow biopsy Urinary Catheter: No Vascular Central Line Catheter: Yes Assessment to: Continue Date of Insertion: Oct 24, 2016 Line: PICC A/P Problem List: (1) Pancytopenia ICD Code: D61.818 Status: Acute (2) Pneumonia ICD Code: J18.9 Status: Acute Assessment and Plan 1. Pancytopenia: Suspect ALL per oncology. Appreciate oncology recommendations. 2. Pneumonia: Continue cefepime, doxycycline. DuoNeb as needed. 3. Hypertension: BP remaining elevated. Add amlodipine. Vasotec IV as needed. 4. DVT prophylaxis: BETHs, KRISTEN sauer. Problem Qualifiers (1) Pneumonia: Qualified Code: J18.9 - Pneumonia of right lung due to infectious organism, unspecified part of lung uHgo Dumont MD Oct 25, 2016 15:49
[2016-10-25] MEDS ORDERED: ALLOPURINOL 300 MG TAB PO ONE (17:45)
[2016-10-25] MEDS: amLODIPine BESYLATE 5 MG TAB PO SCH (17:48)
[2016-10-25] MEDS: diphenhydrAMINE HCL 25 MG CAP PO PRN (18:33)
[2016-10-26] VITALS (10 sets, daily range): BP systolic 127–158; BP diastolic 61–88; PULSE 69–92; RESP 16–18; TEMP 96.8–98.8; O2SAT 96–99
[2016-10-26] MEDS: CEFEPIME INJ 2,000 MG in SODIUM CHLORIDE 0.9% INJ 100 ML IV SCH ×3 (04:56→21:06)
[2016-10-26 05:56] LABS: AUTOMATED NEUTROPHIL # 0.5 TH/MM3 (1.8-7.7); BASOPHIL % 0.4 % (0.0-2.0); EOSINOPHIL % 1.3 % (0.0-4.0); HEMATOCRIT 22.6 % (39.0-51.0); LYMPHOCYTE # 1.3 TH/MM3 (1.0-4.8); MEAN CELL VOLUME 101.3 FL (80.0-100.0); MEAN CORPUSCULAR HEMOGLOBIN 35.9 PG (27.0-34.0); MEAN CORPUSCULAR HGB CONC 35.4 % (32.0-36.0); MONO % 2.9 % (0.0-8.0); NEUT % 25.4 % (16.0-70.0); PLATELET COUNT 26 TH/MM3 (150-450); RED BLOOD COUNT 2.23 MIL/MM3 (4.50-5.90); RED CELL DISTRIBUTION WIDTH 18.2 % (11.6-17.2); WHITE BLOOD COUNT 1.8 TH/MM3 (4.0-11.0)
[2016-10-26 06:02] LABS: HEMO FLAGS AUTO DIFF
[2016-10-26 06:35] LABS: BANDS 2 % (0-6); EOSINOPHILS 1 % (0-4); NEUTROPHIL # MANUAL DIFF 0.6 TH/MM3 (1.8-7.7); POLYS (SEG NEUTROPHILS) 33 % (16-70); WBC DIFF SAMPLE 100
[2016-10-26 06:36] LABS: OVALOCYTES 1+ (NORMAL); PLATELET ESTIMATE SMEAR LOW (NORMAL); PLATELET MORPHOLOGY NORMAL (NORMAL); SCAN/DIFF FINAL DIFF MANUAL
[2016-10-26] MEDS: LACTOBACILLUS ACIDOPHILUS TAB PO SCH ×3 (08:00→18:13)
[2016-10-26] MEDS: SODIUM CHLORIDE 0.9% FLUSH 10 ML FLUSH IVF SCH (08:01)
[2016-10-26] MEDS: amLODIPine BESYLATE 5 MG TAB PO SCH (08:01)
[2016-10-26] MEDS: SODIUM CHLORIDE 0.9% FLUSH 10 ML FLUSH IV FLUSH SCH ×2 (08:01→21:07)
[2016-10-26] MEDS: DOXYCYCLINE HYCLATE 100 MG TAB PO SCH ×2 (08:01→21:07)
--- NOTE | 2016-10-26 09:09 | HHI.PR ---
Subjective Remarks Follow up hypertension, pancytopenia. Patient has slight discomfort at site of bone marrow biopsy. Otherwise no complaints at this time. Denies chest pain, dyspnea. Objective Vitals Vital Signs Date Time Temp Pulse Resp B/P Pulse Ox O2 Delivery O2 Flow Rate FiO2 10/26/16 04:00 98.7 78 18 131/70 98 10/26/16 04:00 69 10/26/16 00:00 98.8 80 18 127/61 99 10/26/16 00:00 69 10/25/16 21:00 99.1 85 19 160/68 100 10/25/16 21:00 99.1 85 19 160/68 100 10/25/16 20:00 83 10/25/16 18:05 97.9 90 20 138/65 99 10/25/16 17:50 97.8 94 20 135/61 100 10/25/16 16:00 98.9 80 16 140/65 99 10/25/16 16:00 74 10/25/16 15:27 98.4 85 20 150/70 100 10/25/16 15:15 98.1 82 20 169/68 98 10/25/16 12:00 91 10/25/16 12:00 96.7 96 18 165/70 98 I/O 10/25/16 10/25/16 10/25/16 10/26/16 10/26/16 10/26/16 07:00 15:00 23:00 07:00 15:00 23:00 Intake Total 240 ml 1590 ml 452 ml 245 ml Balance 240 ml 1590 ml 452 ml 245 ml Intake Oral 240 ml 1140 ml 120 ml IV Total 450 ml 152 ml 125 ml Packed Cells 300 ml # Voids 4 1 # Bowel Movements 4 1 Result Diagram: 10/26/16 0500 10/25/16 0450 Imaging Last Impressions PICC Line Insertion 10/24/16 0000 Signed Impressions: Service Date/Time: Monday, October 24, 2016 12:01 - CONCLUSION: 1. Uncomplicated central venous Power PICC line placement. 2. The PICC line can be used immediately. Serafin Saba MD Bone Biopsy CT 10/24/16 0000 Signed Impressions: Service Date/Time: Monday, October 24, 2016 16:09 - CONCLUSION: 1. Uncomplicated CT guided bone marrow aspirate. 2. Uncomplicated CT guided bone marrow biopsy. Balwinder Swenson MD Abdomen/Pelvis CT 10/24/16 0000 Signed Impressions: Service Date/Time: Monday, October 24, 2016 15:57 - CONCLUSION: 1. Hepatic steatosis. 2. No evidence of metastatic disease or suspicious mass. 3. Bilateral inguinal hernias. Triston Espinoza MD Objective Remarks General: Obese male in no acute distress. Heart: Regular rate and rhythm. No murmur. Lungs: Clear to auscultation bilaterally. No wheezes, rales, or rhonchi. Breathing is nonlabored. Abdomen: Soft, nontender, nondistended. Extremities: No lower extremity edema. Psych: Alert and oriented. 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 ALL: Appreciate oncology recommendations. Start chemotherapy. 2. Pneumonia: Continue cefepime, doxycycline. DuoNeb as needed. 3. Hypertension: Continue amlodipine. Vasotec IV as needed. 4. DVT prophylaxis: SCDs, KRISTEN sauer. Problem Qualifiers (1) Pneumonia: Qualified Code: J18.9 - Pneumonia of right lung due to infectious organism, unspecified part of lung Hugo Dumont MD Oct 26, 2016 09:08
--- NOTE | 2016-10-26 09:32 | PD.ONC.PN ---
Subjective Subjective Remarks Afebrile overnight Patient sitting up on side of bed in no distress States he is ready to begin chemotherapy today No acute complaints Objective Data Date Time Temp Pulse Resp B/P Pulse Ox O2 Delivery O2 Flow Rate FiO2 10/26/16 08:06 89 10/26/16 08:00 97.2 92 16 135/74 96 10/26/16 04:00 98.7 78 18 131/70 98 10/26/16 04:00 69 10/26/16 00:00 98.8 80 18 127/61 99 10/26/16 00:00 69 10/25/16 21:00 99.1 85 19 160/68 100 10/25/16 21:00 99.1 85 19 160/68 100 10/25/16 20:00 83 10/25/16 18:05 97.9 90 20 138/65 99 10/25/16 17:50 97.8 94 20 135/61 100 10/25/16 16:00 98.9 80 16 140/65 99 10/25/16 16:00 74 10/25/16 15:27 98.4 85 20 150/70 100 10/25/16 15:15 98.1 82 20 169/68 98 10/25/16 12:00 91 10/25/16 12:00 96.7 96 18 165/70 98 10/26/16 10/26/16 10/26/16 07:00 15:00 23:00 Intake Total 245 ml Balance 245 ml Result Diagram: 10/26/16 0500 10/25/16 0450 Laboratory Results Laboratory Tests Test 10/25/16 10/25/16 10/26/16 13:15 13:37 05:00 Blood Type O POSITIVE O POSITIVE Antibody Screen NEGATIVE Crossmatch Leukocyte-Reduced Red Blood Cells Blood Bank Comment White Blood Count 1.8 TH/MM3 Red Blood Count 2.23 MIL/MM3 Hemoglobin 8.0 GM/DL Hematocrit 22.6 % Mean Corpuscular Volume 101.3 FL Mean Corpuscular Hemoglobin 35.9 PG Mean Corpuscular Hemoglobin 35.4 % Concent Red Cell Distribution Width 18.2 % Platelet Count 26 TH/MM3 Mean Platelet Volume 7.8 FL Neutrophils (%) (Auto) 25.4 % Lymphocytes (%) (Auto) 70.0 % Monocytes (%) (Auto) 2.9 % Eosinophils (%) (Auto) 1.3 % Basophils (%) (Auto) 0.4 % Neutrophils # (Auto) 0.5 TH/MM3 Lymphocytes # (Auto) 1.3 TH/MM3 Monocytes # (Auto) 0.1 TH/MM3 Eosinophils # (Auto) 0.0 TH/MM3 Basophils # (Auto) 0.0 TH/MM3 CBC Comment AUTO DIFF Differential Total Cells 100 Counted Neutrophils % (Manual) 33 % Band Neutrophils % 2 % Lymphocytes % 63 % Monocytes % 1 % Eosinophils % 1 % Neutrophils # (Manual) 0.6 TH/MM3 Differential Comment FINAL DIFF MANUAL Platelet Estimate LOW Platelet Morphology Comment NORMAL Ovalocytes 1+ Uric Acid 7.9 MG/DL Administered Medications Medications (Trade) Dose Ordered Sig/Daniel Route PRN Reason Start Time Stop Time Status Last Admin Dose Admin Sodium Chloride 2 ml 2 ml BID IV FLUSH 10/24/16 09:00 10/26/16 08:01 Cefepime HCl/ Sodium Chloride (Maxipime Inj/NS Inj) 100 ml @ 200 mls/hr Q8H IV 10/24/16 04:00 10/26/16 04:56 Doxycycline Hyclate (Vibratab) 100 mg Q12HR PO 10/24/16 09:00 10/26/16 08:01 Sodium Chloride (NS Flush) DAILY IVF 10/25/16 09:00 10/26/16 08:01 Heparin Sodium (Porcine) (Heparin Central Flush) DAILY IV FLUSH 10/25/16 09:00 10/26/16 08:01 Lactobacillus Acidophilus (Lactinex) 1 tab TID PO 10/24/16 18:00 10/26/16 08:00 Amlodipine Besylate (Norvasc) 5 mg DAILY PO 10/25/16 15:45 10/26/16 08:01 Acetaminophen (Tylenol) 650 mg Q4H PRN PO WHILE BLOOD INFUSING 10/25/16 18:00 10/26/16 17:59 10/25/16 18:33 Diphenhydramine HCl (Benadryl) 25 mg Q4H PRN PO WHILE BLOOD INFUSING 10/25/16 18:00 10/25/16 18:33 Objective Remarks GENERAL: Overweight middle-aged male sitting up on side of bed in no acute distress SKIN: Warm and dry. Moderate-sized hematoma to right flank. HEAD: Normocephalic. EYES: No injection or drainage. NECK: Supple, trachea midline. CARDIOVASCULAR: + S1/S2. RESPIRATORY: Clear posteriorly. Breathing unlabored at rest. GASTROINTESTINAL: Abdomen soft, non-tender, nondistended. EXTREMITIES: No cyanosis, or edema. NEUROLOGICAL: No obvious focal deficit. Awake, alert, and oriented x3. Assessment/Plan Problem List: (1) Acute lymphocytic leukemia Status: Acute Plan: -- Awaiting bone marrow biopsy results -- Noted to have metamyelocytes and myelocytes in circulation -- CT abdomen shows no diffuse lymphadenopathy -- CT angiography of the chest showed no mediastinal lymphadenopathy -- Hepatitis panel negative Hx/Workup: Patient began to notice approximately 2 weeks ago that he is having breathlessness with exertion. This is concerning to him as he is usually able to walk approximately 3-4 miles with no problems. His PCP advised that the go to the hospital for evaluation. 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 He was transferred to [place] for further workup and inpatient induction chemotherapy. Assessment 71-year-old male admitted for workup and induction chemotherapy for a diagnosis of B-cell acute lymphocytic leukemia Plan 1. Start chemotherapy with hyper-CVAD today 2. Received supportive care with PRBCs and platelets yesterday 3. 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 Awaiting results of BCR/ABL. 4. Monitor for tumor lysis syndrome. Attending Statement The exam, history, and the medical decision-making described in the above note were completed with the assistance of the mid-level provider. I reviewed and agree with the findings presented. I attest that I had a [id number] encounter with the patient on the same day, and personally performed and documented my assessment and findings in the medical record. Discussed plan for HYPER CVAD Part A. Discussed risks and benefits of chemotherapy with patient and answered questions. Discussed w/ Dr. Rice induction therapy, Day 1 today, Day 2 with IT therapy. Anticipate transfuse platelet for LP. Defer to Dr. Rice specific dose adjustments for patient's age. ECHO report EF 50-55%. Continue with support. Imelda Michaels Oct 26, 2016 09:32 Svitlana Paula MD Oct 26, 2016 22:51
[2016-10-26] MEDS: DEXAMETHASONE IV SCH (13:28)
[2016-10-26] MEDS: GRANISETRON HCL 1 MG TAB PO SCH ×2 (13:28→21:00)
[2016-10-26] MEDS: SODIUM CHLORIDE 0.9% IV SCH (13:28)
[2016-10-26] MEDS: SODIUM CHLORID 0.9% IV SCH (14:01)
[2016-10-26] MEDS: MESNA IV SCH (14:01)
[2016-10-26] MEDS: CYCLOPHOSPHAMIDE IV SCH (15:31)
[2016-10-26] MEDS: SODIUM CHLOR 0.9% IV SCH (15:31)
[2016-10-27] VITALS (9 sets, daily range): BP systolic 127–167; BP diastolic 52–92; PULSE 61–92; RESP 18–22; TEMP 96.3–98.6; O2SAT 95–100
[2016-10-27] MEDS: SODIUM CHLOR 0.9% IV SCH ×2 (02:39→14:48)
[2016-10-27] MEDS: CYCLOPHOSPHAMIDE IV SCH ×2 (02:39→14:48)
[2016-10-27] MEDS: CEFEPIME INJ 2,000 MG in SODIUM CHLORIDE 0.9% INJ 100 ML IV SCH ×3 (02:50→20:06)
[2016-10-27 04:26] LABS: HEMATOCRIT 22.9 % (39.0-51.0); MEAN CELL VOLUME 102.1 FL (80.0-100.0); MEAN CORPUSCULAR HEMOGLOBIN 35.9 PG (27.0-34.0); MEAN CORPUSCULAR HGB CONC 35.1 % (32.0-36.0); PLATELET COUNT 25 TH/MM3 (150-450); RED BLOOD COUNT 2.24 MIL/MM3 (4.50-5.90); RED CELL DISTRIBUTION WIDTH 17.8 % (11.6-17.2); WHITE BLOOD COUNT 1.2 TH/MM3 (4.0-11.0)
[2016-10-27 04:31] LABS: HEMO FLAGS AUTO DIFF
[2016-10-27 04:55] LABS: BICARBONATE 19.4 MEQ/L (21.0-32.0); POTASSIUM 4.8 MEQ/L (3.5-5.1)
[2016-10-27 05:28] LABS: BANDS 8 % (0-6); CORRECTED NUCLEATED RBC 8 /100 WBC (0-0); NEUTROPHIL # MANUAL DIFF 0.6 TH/MM3 (1.8-7.7); POLYS (SEG NEUTROPHILS) 40 % (16-70); WBC DIFF SAMPLE 25
[2016-10-27 05:29] LABS: OVALOCYTES 1+ (NORMAL); PLATELET ESTIMATE SMEAR LOW (NORMAL); PLATELET MORPHOLOGY NORMAL (NORMAL); SCAN/DIFF FINAL DIFF MANUAL
[2016-10-27] MEDS ORDERED: ACETAMINOPHEN 325 MG TAB PO PRN ×2 (06:00→11:30)
[2016-10-27] MEDS ORDERED: diphenhydrAMINE HCL 25 MG CAP PO PRN ×2 (06:00→11:30)
[2016-10-27] MEDS: DOXYCYCLINE HYCLATE 100 MG TAB PO SCH ×2 (08:34→20:25)
[2016-10-27] MEDS: GRANISETRON HCL 1 MG TAB PO SCH ×2 (08:34→20:27)
[2016-10-27] MEDS: amLODIPine BESYLATE 5 MG TAB PO SCH (08:34)
[2016-10-27] MEDS: LACTOBACILLUS ACIDOPHILUS TAB PO SCH ×3 (08:34→14:05)
[2016-10-27] MEDS: SODIUM CHLORIDE 0.9% FLUSH 10 ML FLUSH IVF SCH (08:35)
[2016-10-27] MEDS: SODIUM CHLORIDE 0.9% FLUSH 10 ML FLUSH IV FLUSH SCH ×2 (08:38→20:27)
[2016-10-27] MEDS: ALLOPURINOL 300 MG TAB PO SCH ×2 (09:00→20:25)
[2016-10-27] MEDS ORDERED: METHOTREXATE IT SCH (09:00)
--- NOTE | 2016-10-27 09:16 | PD.ONC.PN ---
Subjective Subjective Remarks Patient seen and examined, vital signs, medication list, labs, imaging studies including echocardiogram from [facility] were reviewed. Day 2 of hyper-CVAD today for new diagnosis of B cell acute lymphoblastic leukemia. Subjectively, the patient denies acute complaints other than bruising on his skin. He specifically denies fevers, chills, night sweats, nausea vomiting or diarrhea. He also denies overt bleeding. Objective Data Date Time Temp Pulse Resp B/P Pulse Ox O2 Delivery O2 Flow Rate FiO2 10/27/16 08:00 96.5 76 18 157/75 95 10/27/16 04:00 98.3 82 18 134/70 96 10/27/16 04:00 61 10/27/16 00:00 92 10/27/16 00:00 97.6 91 19 149/92 98 10/26/16 20:45 69 10/26/16 20:00 96.8 91 18 140/88 98 10/26/16 17:03 80 10/26/16 16:00 97.7 82 16 143/66 98 10/26/16 12:04 82 10/26/16 12:00 98.3 88 16 158/71 98 Result Diagram: 10/27/16 0031 10/27/16 0031 Laboratory Results Laboratory Tests Test 10/27/16 10/27/16 00:12 00:31 Blood Bank Comment White Blood Count 1.2 TH/MM3 Red Blood Count 2.24 MIL/MM3 Hemoglobin 8.0 GM/DL Hematocrit 22.9 % Mean Corpuscular Volume 102.1 FL Mean Corpuscular Hemoglobin 35.9 PG Mean Corpuscular Hemoglobin 35.1 % Concent Red Cell Distribution Width 17.8 % Platelet Count 25 TH/MM3 Mean Platelet Volume 8.6 FL Neutrophils (%) (Auto) % Lymphocytes (%) (Auto) % Monocytes (%) (Auto) % Eosinophils (%) (Auto) % Basophils (%) (Auto) % Neutrophils # (Auto) TH/MM3 Lymphocytes # (Auto) TH/MM3 Monocytes # (Auto) TH/MM3 Eosinophils # (Auto) TH/MM3 Basophils # (Auto) TH/MM3 CBC Comment AUTO DIFF Differential Total Cells 25 Counted Neutrophils % (Manual) 40 % Band Neutrophils % 8 % Lymphocytes % 52 % Neutrophils # (Manual) 0.6 TH/MM3 Nucleated Red Blood Cells 8 /100 WBC Differential Comment FINAL DIFF MANUAL Platelet Estimate LOW Platelet Morphology Comment NORMAL Ovalocytes 1+ Sodium Level 137 MEQ/L Potassium Level 4.8 MEQ/L Chloride Level 103 MEQ/L Carbon Dioxide Level 19.4 MEQ/L Anion Gap 15 MEQ/L Blood Urea Nitrogen 22 MG/DL Creatinine 0.98 MG/DL Estimat Glomerular Filtration 76 ML/MIN Rate Random Glucose 173 MG/DL Calcium Level 8.1 MG/DL Administered Medications Medications (Trade) Dose Ordered Sig/Daniel Route PRN Reason Start Time Stop Time Status Last Admin Dose Admin Sodium Chloride 2 ml 2 ml BID IV FLUSH 10/24/16 09:00 10/26/16 21:07 Cefepime HCl/ Sodium Chloride (Maxipime Inj/NS Inj) 100 ml @ 200 mls/hr Q8H IV 10/24/16 04:00 10/27/16 02:50 Doxycycline Hyclate (Vibratab) 100 mg Q12HR PO 10/24/16 09:00 10/27/16 08:34 Sodium Chloride (NS Flush) DAILY IVF 10/25/16 09:00 10/26/16 08:01 Heparin Sodium (Porcine) (Heparin Central Flush) DAILY IV FLUSH 10/25/16 09:00 10/26/16 08:01 Lactobacillus Acidophilus (Lactinex) 1 tab TID PO 10/24/16 18:00 10/27/16 08:34 Amlodipine Besylate (Norvasc) 5 mg DAILY PO 10/25/16 15:45 10/27/16 08:34 Diphenhydramine HCl (Benadryl) 25 mg Q4H PRN PO WHILE BLOOD INFUSING 10/25/16 18:00 10/25/16 18:33 Granisetron HCl 1 mg 1 mg Q12HR PO 10/26/16 11:00 10/29/16 21:01 10/27/16 08:34 Dexamethasone Sodium Phosphate 40 mg/Sodium Chloride 60 ml @ 120 mls/hr DAILY IV 10/26/16 11:00 10/29/16 09:29 10/26/16 13:28 Cyclophosphamide 741 mg/Sodium Chloride 250 ml @ 83.333 mls/ hr Q12H IV 10/26/16 12:00 10/29/16 02:59 10/27/16 02:39 [place]/Sodium Chloride (Mesnex Inj/NS 500 ml Inj) 514.82 ml @ 21.451 mls/hr Q24H IV 10/26/16 11:00 10/29/16 10:59 10/26/16 14:01 Objective Remarks GENERAL APPEARANCE: Mr. Chou is an elderly male, he is tall and heavy-set, he has a very pleasant disposition and is in no acute distress. HEENT: Head atraumatic, normocephalic, conjunctivae are mildly pale. Sclerae are anicteric, EOMI, PERRLA, oral exam no pharyngeal erythema. NECK: No palpable cervical or supraclavicular lymphadenopathy. RESPIRATORY: Good air movement bilaterally. No added breath sounds. CARDIOVASCULAR: Regular rate and rhythm, S1-S2. No obvious murmurs, gallops. ABDOMEN: Obese belly, soft, nontender, nondistended, no palpable organ enlargement, specifically no hepatosplenomegaly. EXTREMITIES: Lower extremities, no pretibial edema. No calf tenderness. PICC line in right arm. JAZ/LYMPH EXAMINATION: No cervical lymphadenopathy, no axillary lymphadenopathy and no inguinal lymphadenopathy. BINDER ROLLER: Exam without any abnormal findings specifically no motor or sensory deficits. Assessment/Plan Problem List: (1) Acute lymphocytic leukemia Status: Acute Plan: -- Awaiting bone marrow biopsy results -- Noted to have metamyelocytes and myelocytes in circulation -- CT abdomen shows no diffuse lymphadenopathy -- CT angiography of the chest showed no mediastinal lymphadenopathy -- Hepatitis panel negative Hx/Workup: Patient began to notice approximately 2 weeks ago that he is having breathlessness with exertion. This is concerning to him as he is usually able to walk approximately 3-4 miles with no problems. His PCP advised that the go to the hospital for evaluation. 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 He was transferred to [place] for further workup and inpatient induction chemotherapy. Assessment 71-year-old male admitted for workup and induction chemotherapy for a diagnosis of B-cell acute lymphocytic leukemia Plan 1. Started chemotherapy with hyper-CVAD on 10/26/2016. 2. Continue supportive transfusions. 3. Preliminary from 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 Awaiting results of BCR/ABL. 4. 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 5. Check daily labs. 6. Lumbar puncture today with CSF fluid collection and injection of intrathecal cytarabine. Sukhwinder Rice MD Oct 27, 2016 09:16
--- NOTE | 2016-10-27 10:24 | HHI.PR ---
Subjective Remarks Follow-up hypertension, pneumonia. The patient states that he feels okay today. Started chemotherapy yesterday. No pain at this time. Denies dyspnea. Objective Vitals Vital Signs Date Time Temp Pulse Resp B/P Pulse Ox O2 Delivery O2 Flow Rate FiO2 10/27/16 08:00 96.5 76 18 157/75 95 10/27/16 04:00 98.3 82 18 134/70 96 10/27/16 04:00 61 10/27/16 00:00 92 10/27/16 00:00 97.6 91 19 149/92 98 10/26/16 20:45 69 10/26/16 20:00 96.8 91 18 140/88 98 10/26/16 17:03 80 10/26/16 16:00 97.7 82 16 143/66 98 10/26/16 12:04 82 10/26/16 12:00 98.3 88 16 158/71 98 I/O 10/26/16 10/26/16 10/26/16 10/27/16 10/27/16 10/27/16 07:00 15:00 23:00 07:00 15:00 23:00 Intake Total 245 ml 1300 ml 1260 ml 480 ml Balance 245 ml 1300 ml 1260 ml 480 ml Intake Oral 120 ml 1300 ml 960 ml 480 ml IV Total 125 ml 300 ml # Voids 1 4 3 2 # Bowel Movements 1 1 Result Diagram: 10/27/16 0031 10/27/16 0031 Imaging Last Impressions PICC Line Insertion 10/24/16 0000 Signed Impressions: Service Date/Time: Monday, October 24, 2016 12:01 - CONCLUSION: 1. Uncomplicated central venous Power PICC line placement. 2. The PICC line can be used immediately. Serafin Saba MD Bone Biopsy CT 10/24/16 0000 Signed Impressions: Service Date/Time: Monday, October 24, 2016 16:09 - CONCLUSION: 1. Uncomplicated CT guided bone marrow aspirate. 2. Uncomplicated CT guided bone marrow biopsy. Balwinder Swenson MD Abdomen/Pelvis CT 10/24/16 0000 Signed Impressions: Service Date/Time: Monday, October 24, 2016 15:57 - CONCLUSION: 1. Hepatic steatosis. 2. No evidence of metastatic disease or suspicious mass. 3. Bilateral inguinal hernias. Triston Espinoza MD Objective Remarks General: Obese male in no acute distress. Heart: Regular rate and rhythm. No murmur. Lungs: Clear to auscultation bilaterally. No wheezes, rales, or rhonchi. Breathing is nonlabored. Abdomen: Soft, nontender, nondistended. Extremities: No lower extremity edema. Psych: Alert and oriented. 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 ALL: Appreciate oncology recommendations. Chemotherapy started yesterday. 2. Pneumonia: Continue cefepime, doxycycline. DuoNeb as needed. Stable on room air. 3. Hypertension: Continue amlodipine. Vasotec IV as needed. 4. DVT prophylaxis: SCDs, KRISTEN sauer. Problem Qualifiers (1) Pneumonia: Qualified Code: J18.9 - Pneumonia of right lung due to infectious organism, unspecified part of lung Hugo Dumont MD Oct 27, 2016 10:24
[2016-10-27] MEDS: diphenhydrAMINE HCL 25 MG CAP PO PRN (11:25)
--- NOTE | 2016-10-27 12:46 | PD.RAD ---
Post Procedure Progress Note Pre Procedure Diagnosis: (1) Acute lymphocytic leukemia Post Procedure Diagnosis: (1) Acute lymphocytic leukemia Procedure Date: Oct 27, 2016 Supervising Radiologist: Matt Lassiter Anesthesia: Local Plan of Activity Patient to Unit: Nursing Unit Patient Condition: Fair Additional Comments: LP completed without difficulty Opening pressure 17cm h2o Pt. tolerated the procedure well. See PACS Report for procedural detail/treatment Matt Lassiter MD Oct 27, 2016 12:46
--- NOTE | 2016-10-27 13:24 | RADRPT ---
EXAM DATE/TIME: 10/27/2016 12:19 [facility] COMPARISON: LUMBAR PUNCTURE W/OPENING PRESSURES, October 27, 2016, 0:00. INDICATIONS : Patient with history of leukemia in need of lumbar puncture with opening pressures and chemotherapy i njection. MEDICAL HISTORY : 1.B-cell acute lymphoblastic leukemia 2.Vocal polyps 3.Rheumatic fever SURGICAL HISTORY : 1.Appendectomy 2.Vocal polyps ENCOUNTER: Initial ACUITY: 3 days PAIN SCORE: 0/10 LUMBAR PUNCTURE TIME: 1233 hours FLUORO TIME: 2.3 minutes IMAGE SERIES: 0 ACCESS LEVEL: L3-4 FLUID: 15 cc of clear CSF was collected and sent to the laboratory for analysis. TECH NOTE; Opening pressure: 17.5 cm of H20. Closing pressures not requested.GIOVANY BO MR#[id number] :46 Exam date/ desc:October 27, 2016LUMBAR PUNCTURE W/CHEMO INJECT PROCEDURE : Fluoroscopic guided lumbar puncture. Instillation of chemotherapy. The risks, benefits and alternatives to the procedure were explained and verbal and written consent w as obtained. The site was prepped in sterile fashion. Full sterile technique was used, including ca p, mask, sterile gloves and gown and a large sterile sheet. Hand hygiene and 2% chlorhexidine and/or betadine/alcohol prep was utilized per protocol for cutaneous antisepsis. The skin and subcutaneous tissues were infiltrated with local anesthetic solution. With fluoroscopic guidance the lumbar thecal sac was punctured at the level above. The prescribed ch emo therapeutic was injected. The patient tolerated the procedure well and there were no complications. CONCLUSION: Uncomplicated fluoroscopically guided lumbar puncture with chemotherapy injection. Matt Lassiter MD on October 27, 2016 at 13:22 Board Certified Radiologist. This report was verified electronically.
[2016-10-27] MEDS: SODIUM CHLORIDE 0.9% IV SCH (13:53)
[2016-10-27] MEDS: DEXAMETHASONE IV SCH (13:53)
[2016-10-27] MEDS: MESNA IV SCH (14:01)
[2016-10-27] MEDS: SODIUM CHLORID 0.9% IV SCH (14:01)
[2016-10-27] MEDS: SODIUM CHLORIDE 0.9% FLUSH 10 ML FLUSH IV FLUSH PRN (20:13)
[2016-10-27] MEDS: DEXTROSE 5% IV SCH ×2 (23:50)
[2016-10-27] MEDS: WATE IV SCH ×2 (23:50)
[2016-10-27] MEDS: SODIUM ACETATE IV SCH ×2 (23:50)
[2016-10-28] VITALS (15 sets, daily range): BP systolic 102–160; BP diastolic 48–72; PULSE 60–104; RESP 16–20; TEMP 96.5–99.8; O2SAT 97–100
[2016-10-28] MEDS: CYCLOPHOSPHAMIDE IV SCH ×2 (00:21→14:32)
[2016-10-28] MEDS: SODIUM CHLOR 0.9% IV SCH ×2 (00:21→14:32)
[2016-10-28] MEDS: SODIUM CHLORIDE 0.9% FLUSH 10 ML FLUSH IV FLUSH PRN (03:42)
[2016-10-28] MEDS: CEFEPIME INJ 2,000 MG in SODIUM CHLORIDE 0.9% INJ 100 ML IV SCH ×3 (03:42→20:13)
--- NOTE | 2016-10-28 08:11 | PD.ONC.PN ---
Subjective Subjective Remarks Patient seen and examined, vital signs, medications, support weight findings, imaging studies, chemotherapy order sets and dosing as well as imaging studies including procedures reviewed. Patient remains on Hyper-CVAD protocol, I will add on rituxan to this today. Pt is s/p lumbar puncture with CSF aspiration and cytarabine 100 mg injection in the CSF on 10/27/2016. Subjectively: He denies fevers, he denies chills, he denies nausea vomiting or diarrhea. He denies rashes, sores in throat, headaches blurry vision or other acute complaints. He tells me he is urinating every hour due to IV fluid hydration and chemotherapy infusions. He tells me his appetite remains excellent. He is tolerating chemotherapy without difficulty thus far. Objective Data Date Time Temp Pulse Resp B/P Pulse Ox O2 Delivery O2 Flow Rate FiO2 10/28/16 04:00 98.0 72 20 138/65 99 10/28/16 00:00 96.8 70 20 149/67 98 10/27/16 20:11 70 10/27/16 20:00 96.3 77 22 167/73 100 10/27/16 16:25 78 10/27/16 16:00 98.1 80 18 154/72 99 10/27/16 11:52 98.2 82 18 128/58 100 10/27/16 11:38 98.6 83 18 127/52 100 10/28/16 10/28/16 10/28/16 07:00 15:00 23:00 Intake Total 760 ml Output Total 1400 ml Balance -640 ml Result Diagram: 10/27/16 0031 10/27/16 0031 Laboratory Results Laboratory Tests Test 10/27/16 12:33 CSF Glucose 111 MG/DL CSF Total Protein 64.2 MG/DL Administered Medications Medications (Trade) Dose Ordered Sig/Daniel Route PRN Reason Start Time Stop Time Status Last Admin Dose Admin Sodium Chloride (NS Flush) 2 ml UNSCH PRN IV FLUSH FLUSH AFTER USING IV ACCESS 10/24/16 01:45 10/28/16 03:42 Sodium Chloride 2 ml 2 ml BID IV FLUSH 10/24/16 09:00 10/27/16 20:27 Cefepime HCl/ Sodium Chloride (Maxipime Inj/NS Inj) 100 ml @ 200 mls/hr Q8H IV 10/24/16 04:00 10/28/16 03:42 Doxycycline Hyclate (Vibratab) 100 mg Q12HR PO 10/24/16 09:00 10/27/16 20:25 Sodium Chloride (NS Flush) DAILY IVF 10/25/16 09:00 10/26/16 08:01 Heparin Sodium (Porcine) (Heparin Central Flush) DAILY IV FLUSH 10/25/16 09:00 10/26/16 08:01 Lactobacillus Acidophilus (Lactinex) 1 tab TID PO 10/24/16 18:00 10/27/16 14:05 Amlodipine Besylate (Norvasc) 5 mg DAILY PO 10/25/16 15:45 10/27/16 08:34 Diphenhydramine HCl (Benadryl) 25 mg Q4H PRN PO WHILE BLOOD INFUSING 10/25/16 18:00 10/27/16 11:25 Granisetron HCl 1 mg 1 mg Q12HR PO 10/26/16 11:00 10/29/16 21:01 10/27/16 20:27 Dexamethasone Sodium Phosphate 40 mg/Sodium Chloride 60 ml @ 120 mls/hr DAILY IV 10/26/16 11:00 10/29/16 09:29 10/27/16 13:53 Cyclophosphamide 741 mg/Sodium Chloride 250 ml @ 83.333 mls/ hr Q12H IV 10/26/16 12:00 10/29/16 02:59 10/28/16 00:21 Mesna/Sodium Chloride (Mesnex Inj/NS 500 ml Inj) 514.82 ml @ 21.451 mls/hr Q24H IV 10/26/16 11:00 10/29/16 10:59 10/27/16 14:01 Allopurinol 300 mg 300 mg BID PO 10/27/16 09:00 10/27/16 20:25 Sodium Acetate/ Dextrose (Sodium Acetate Inj/D5W 1000 ml Inj) 1,050 ml @ 84 mls/hr [id number] IV 10/27/16 23:30 10/27/16 23:50 Objective Remarks GENERAL APPEARANCE: Mr. Chou is an elderly male, he is tall and heavy-set, he has a very pleasant disposition and is in no acute distress. HEENT: Head atraumatic, normocephalic, conjunctivae are mildly pale. Sclerae are anicteric, EOMI, PERRLA, oral exam no pharyngeal erythema. NECK: No palpable cervical or supraclavicular lymphadenopathy. RESPIRATORY: Good air movement bilaterally. No added breath sounds. CARDIOVASCULAR: Regular rate and rhythm, S1-S2. No obvious murmurs, gallops. ABDOMEN: Obese belly, soft, nontender, nondistended, no palpable organ enlargement, specifically no hepatosplenomegaly. EXTREMITIES: Lower extremities, no pretibial edema. No calf tenderness. PICC line in right arm. JAZ/LYMPH EXAMINATION: No cervical lymphadenopathy, no axillary lymphadenopathy and no inguinal lymphadenopathy. 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 Assessment/Plan Problem List: (1) Acute lymphocytic leukemia Status: Acute Plan: -- Awaiting bone marrow biopsy results -- Noted to have metamyelocytes and myelocytes in circulation -- CT abdomen shows no diffuse lymphadenopathy -- CT angiography of the chest showed no mediastinal lymphadenopathy -- Hepatitis panel negative Hx/Workup: Patient began to notice approximately 2 weeks ago that he is having breathlessness with exertion. This is concerning to him as he is usually able to walk approximately 3-4 miles with no problems. His PCP advised that the go to the hospital for evaluation. He was originally seen for [facility] and peripheral blood flow cytometry indicated findings consistent with B-cell acute lymphoblastic leukemia. He was transferred to [place] for further workup and inpatient induction chemotherapy. Assessment 71-year-old male admitted for workup and induction chemotherapy for a diagnosis of B-cell acute lymphocytic leukemia Plan 1. Started chemotherapy with hyper-CVAD on 10/26/2016. I will add on Rituxan today given the CD 20 positivity of the B-cell ALL on Flow cytometry on bone marrow aspiration specimen. Await results of the [place] chromosome to determine if the patient may benefit from tyrosine kinase inhibitors. He is thus far tolerating treatment without significant difficulty. He is however increasingly cytopenic. 2. Continue supportive transfusions. 3. 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 Check tumor lysis syndrome labs tomorrow morning with LDH and magnesium as well as CMP. 4. CBC CMP ordered for tomorrow morning. 5. Patient requesting regular diet and I will order this. Continue ongoing care. Sukhwinder Rice MD Oct 28, 2016 08:11
[2016-10-28] MEDS: SODIUM CHLORIDE 0.9% FLUSH 10 ML FLUSH IV FLUSH SCH ×2 (09:00→20:22)
[2016-10-28] MEDS: SODIUM CHLORIDE 0.9% FLUSH 10 ML FLUSH IVF SCH (09:00)
[2016-10-28] MEDS: amLODIPine BESYLATE 5 MG TAB PO SCH (09:51)
[2016-10-28] MEDS: DOXYCYCLINE HYCLATE 100 MG TAB PO SCH ×2 (09:51→21:37)
[2016-10-28] MEDS: ALLOPURINOL 300 MG TAB PO SCH ×2 (09:51→21:37)
[2016-10-28] MEDS: LACTOBACILLUS ACIDOPHILUS TAB PO SCH ×3 (09:51→17:44)
[2016-10-28] MEDS: DEXAMETHASONE IV SCH (13:19)
[2016-10-28] MEDS: SODIUM CHLORIDE 0.9% IV SCH (13:19)
[2016-10-28] MEDS: GRANISETRON HCL 1 MG TAB PO SCH ×2 (13:20→21:37)
[2016-10-28] MEDS: MESNA IV SCH (13:36)
[2016-10-28] MEDS: SODIUM CHLORID 0.9% IV SCH (13:36)
--- NOTE | 2016-10-28 15:14 | HHI.PR ---
Subjective Remarks Follow up pancytopenia, pneumonia. Patient states that he is tolerating chemo well so far. Does report some discomfort in his ears. No chest pain, dyspnea. Objective Vitals Vital Signs Date Time Temp Pulse Resp B/P Pulse Ox O2 Delivery O2 Flow Rate FiO2 10/28/16 13:30 96.6 71 18 152/64 100 10/28/16 12:00 60 10/28/16 08:00 78 10/28/16 08:00 96.5 73 18 147/56 99 10/28/16 04:00 98.0 72 20 138/65 99 10/28/16 00:00 96.8 70 20 149/67 98 10/27/16 20:11 70 10/27/16 20:00 96.3 77 22 167/73 100 10/27/16 16:25 78 10/27/16 16:00 98.1 80 18 154/72 99 I/O 10/27/16 10/27/16 10/27/16 10/28/16 10/28/16 10/28/16 07:00 15:00 23:00 07:00 15:00 23:00 Intake Total 987 ml 1450 ml 760 ml 1138 ml Output Total 300 ml 1400 ml 1300 ml Balance 987 ml 1150 ml -640 ml -162 ml Intake Oral 987 ml 600 ml 240 ml IV Total 850 ml 760 ml 898 ml Output Urine Total 300 ml 1400 ml 1300 ml # Voids 2 6 # Bowel Movements 1 2 Result Diagram: 10/27/16 0031 10/27/16 0031 Imaging Last Impressions Lumbar Puncture Fluoroscopy 10/27/16 0000 Signed Impressions: Service Date/Time: Thursday, October 27, 2016 12:19 - CONCLUSION: Uncomplicated fluoroscopically guided lumbar puncture with chemotherapy injection. Matt Lassiter MD PICC Line Insertion 10/24/16 0000 Signed Impressions: Service Date/Time: Monday, October 24, 2016 12:01 - CONCLUSION: 1. Uncomplicated central venous Power PICC line placement. 2. The PICC line can be used immediately. Serafin Saba MD Bone Biopsy CT 10/24/16 0000 Signed Impressions: Service Date/Time: Monday, October 24, 2016 16:09 - CONCLUSION: 1. Uncomplicated CT guided bone marrow aspirate. 2. Uncomplicated CT guided bone marrow biopsy. Balwinder Swenson MD Abdomen/Pelvis CT 10/24/16 0000 Signed Impressions: Service Date/Time: Monday, October 24, 2016 15:57 - CONCLUSION: 1. Hepatic steatosis. 2. No evidence of metastatic disease or suspicious mass. 3. Bilateral inguinal hernias. Triston Espinoza MD Objective Remarks General: Obese male in no acute distress. Heart: Regular rate and rhythm. No murmur. Lungs: Clear to auscultation bilaterally. No wheezes, rales, or rhonchi. Breathing is nonlabored. Abdomen: Soft, nontender, nondistended. Extremities: No lower extremity edema. Psych: Alert and oriented. 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 Chemo per oncology. Monitor BP and adjust meds if needed. 1. ALL: Appreciate oncology recommendations. Continue chemotherapy per oncology. 2. Pneumonia: Continue cefepime, doxycycline. DuoNeb as needed. Stable on room air. 3. Hypertension: Continue amlodipine. Vasotec IV as needed. May need to increase BP meds if BP remains elevated. 4. DVT prophylaxis: SCDKRISTEN hardwick. Problem Qualifiers (1) Pneumonia: Qualified Code: J18.9 - Pneumonia of right lung due to infectious organism, unspecified part of lung Hugo Dumont MD Oct 28, 2016 15:14
[2016-10-28] MEDS ORDERED: diphenhydrAMINE HCL 50 MG CAP PO ONE (16:30)
[2016-10-28] MEDS ORDERED: ACETAMINOPHEN 325 MG TAB PO ONE (16:30)
[2016-10-28] MEDS ORDERED: SODIUM CHLORID 0.9% IV ONE (17:00)
[2016-10-28] MEDS ORDERED: SODIUM CHLOR 0.9% 1000 ML INJ 1,000 ML IV SCH (17:00)
[2016-10-28] MEDS ORDERED: RITUXIMAB IV ONE (17:00)
[2016-10-28] MEDS ORDERED: PROCHLORPERAZINE MALEATE 10 MG TAB PO ONE (21:00)
[2016-10-29] VITALS (15 sets, daily range): BP systolic 94–160; BP diastolic 51–75; PULSE 74–107; RESP 16–21; TEMP 96–100.3; O2SAT 96–100
[2016-10-29] MEDS: SODIUM ACETATE IV SCH ×2 (00:20)
[2016-10-29] MEDS: WATE IV SCH ×2 (00:20)
[2016-10-29] MEDS: DEXTROSE 5% IV SCH ×2 (00:20)
[2016-10-29] MEDS: CEFEPIME INJ 2,000 MG in SODIUM CHLORIDE 0.9% INJ 100 ML IV SCH ×3 (03:01→20:46)
[2016-10-29] MEDS: SODIUM CHLOR 0.9% IV SCH (04:08)
[2016-10-29] MEDS: CYCLOPHOSPHAMIDE IV SCH (04:08)
[2016-10-29 05:10] LABS: AUTOMATED NEUTROPHIL # 0.2 TH/MM3 (1.8-7.7); BASOPHIL % 0.7 % (0.0-2.0); EOSINOPHIL % 0.3 % (0.0-4.0); LYMPH % 13.4 % (9.0-44.0); MEAN CELL VOLUME 104.2 FL (80.0-100.0); MEAN CORPUSCULAR HEMOGLOBIN 36.9 PG (27.0-34.0); MEAN CORPUSCULAR HGB CONC 35.5 % (32.0-36.0); MONO % 0.5 % (0.0-8.0); NEUT % 85.1 % (16.0-70.0); RED BLOOD COUNT 1.59 MIL/MM3 (4.50-5.90); RED CELL DISTRIBUTION WIDTH 18.6 % (11.6-17.2); WHITE BLOOD COUNT 0.2 TH/MM3 (4.0-11.0)
[2016-10-29 05:18] LABS: HEMO FLAGS AUTO DIFF
[2016-10-29 05:20] LABS: HEMATOCRIT 16.6 % (39.0-51.0); PLATELET COUNT 14 TH/MM3 (150-450)
[2016-10-29 05:42] LABS: BICARBONATE 19.5 MEQ/L (21.0-32.0); MAGNESIUM 2.3 MG/DL (1.5-2.5); POTASSIUM 4.5 MEQ/L (3.5-5.1)
[2016-10-29 05:52] LABS: CALCIUM-PROTEIN CORRECTED 8.6 MG/DL (8.5-10.1); TOTAL BILIRUBIN ADULT 0.4 MG/DL (0.2-1.0)
[2016-10-29] MEDS ORDERED: SODIUM CHLOR 0.9% 250 ML INJ 250 ML IV ONE (07:15)
[2016-10-29] MEDS ORDERED: diphenhydrAMINE HCL 25 MG CAP PO PRN (07:15)
[2016-10-29] MEDS ORDERED: FUROSEMIDE 20 MG/2 ML VIAL IV ONE (07:15)
[2016-10-29] MEDS ORDERED: ACETAMINOPHEN 325 MG TAB PO PRN ×2 (07:15→12:00)
--- NOTE | 2016-10-29 07:41 | PD.ONC.PN ---
Subjective Subjective Remarks Patient seen and examined. Subjectively he reports feeling much better this morning than he did last evening and last night. He had a difficult time with chills and sweats, tremulousness and fatigue while receiving Rituxan infusion. He denies difficulty breathing, denies chest pain, denies overt bleeding. Denies nausea or vomiting. He tells me he feels generally exhausted. Objective Data Date Time Temp Pulse Resp B/P Pulse Ox O2 Delivery O2 Flow Rate FiO2 10/29/16 04:14 99.8 86 18 112/51 97 10/29/16 04:10 93 10/29/16 02:48 100.3 103 18 94/51 10/29/16 01:36 100.3 104 18 96/54 10/29/16 00:57 99.7 107 18 108/54 10/29/16 00:17 100.0 104 18 107/51 10/29/16 00:05 98 10/28/16 23:24 99.2 99 18 102/56 98 10/28/16 23:00 100 111/48 10/28/16 22:38 99.8 99 18 112/54 10/28/16 21:38 99.0 104 20 130/61 97 10/28/16 20:49 97.6 96 20 137/58 100 10/28/16 20:00 88 10/28/16 19:40 97.3 80 20 160/69 10/28/16 18:59 97.1 83 18 135/72 100 10/28/16 18:30 98.7 70 20 146/71 100 10/28/16 16:00 98.2 72 16 145/66 99 10/28/16 16:00 66 10/28/16 13:30 96.6 71 18 152/64 100 10/28/16 12:00 60 10/28/16 08:00 78 10/28/16 08:00 96.5 73 18 147/56 99 10/29/16 10/29/16 10/29/16 07:00 15:00 23:00 Intake Total 1640 ml Output Total 400 ml Balance 1240 ml Result Diagram: 10/29/16 0400 10/29/16 0400 Laboratory Results Laboratory Tests Test 10/29/16 04:00 White Blood Count 0.2 TH/MM3 Red Blood Count 1.59 MIL/MM3 Hemoglobin 5.9 GM/DL Hematocrit 16.6 % Mean Corpuscular Volume 104.2 FL Mean Corpuscular Hemoglobin 36.9 PG Mean Corpuscular Hemoglobin 35.5 % Concent Red Cell Distribution Width 18.6 % Platelet Count 14 TH/MM3 Mean Platelet Volume 7.5 FL Neutrophils (%) (Auto) 85.1 % Lymphocytes (%) (Auto) 13.4 % Monocytes (%) (Auto) 0.5 % Eosinophils (%) (Auto) 0.3 % Basophils (%) (Auto) 0.7 % Neutrophils # (Auto) 0.2 TH/MM3 Lymphocytes # (Auto) 0.0 TH/MM3 Monocytes # (Auto) 0.0 TH/MM3 Eosinophils # (Auto) 0.0 TH/MM3 Basophils # (Auto) 0.0 TH/MM3 CBC Comment AUTO DIFF Sodium Level 137 MEQ/L Potassium Level 4.5 MEQ/L Chloride Level 103 MEQ/L Carbon Dioxide Level 19.5 MEQ/L Anion Gap 15 MEQ/L Blood Urea Nitrogen 52 MG/DL Creatinine 1.76 MG/DL Estimat Glomerular Filtration 38 ML/MIN Rate Random Glucose 242 MG/DL Calcium Level 7.1 MG/DL Protein Corrected Calcium 8.6 MG/DL Magnesium Level 2.3 MG/DL Total Bilirubin 0.4 MG/DL Aspartate Amino Transf 351 U/L (AST/SGOT) Alanine Aminotransferase 35 U/L (ALT/SGPT) Alkaline Phosphatase 42 U/L Lactate Dehydrogenase 5626 U/L B-Type Natriuretic Peptide 287 PG/ML Total Protein 4.4 GM/DL Albumin 2.5 GM/DL Blood Type O POSITIVE Antibody Screen NEGATIVE Crossmatch Irradiated/Leukocyte-Reduced RBC Blood Bank Comment Administered Medications Medications (Trade) Dose Ordered Sig/Daniel Route PRN Reason Start Time Stop Time Status Last Admin Dose Admin Sodium Chloride (NS Flush) 2 ml UNSCH PRN IV FLUSH FLUSH AFTER USING IV ACCESS 10/24/16 01:45 10/28/16 03:42 Sodium Chloride 2 ml 2 ml BID IV FLUSH 10/24/16 09:00 10/28/16 20:22 Cefepime HCl/ Sodium Chloride (Maxipime Inj/NS Inj) 100 ml @ 200 mls/hr Q8H IV 10/24/16 04:00 10/29/16 03:01 Doxycycline Hyclate (Vibratab) 100 mg Q12HR PO 10/24/16 09:00 10/28/16 21:37 Sodium Chloride (NS Flush) DAILY IVF 10/25/16 09:00 10/26/16 08:01 Heparin Sodium (Porcine) (Heparin Central Flush) DAILY IV FLUSH 10/25/16 09:00 10/26/16 08:01 Lactobacillus Acidophilus (Lactinex) 1 tab TID PO 10/24/16 18:00 10/28/16 17:44 Amlodipine Besylate (Norvasc) 5 mg DAILY PO 10/25/16 15:45 10/28/16 09:51 Diphenhydramine HCl (Benadryl) 25 mg Q4H PRN PO WHILE BLOOD INFUSING 10/25/16 18:00 10/27/16 11:25 Granisetron HCl 1 mg 1 mg Q12HR PO 10/26/16 11:00 10/29/16 21:01 10/28/16 21:37 Dexamethasone Sodium Phosphate 40 mg/Sodium Chloride 60 ml @ 120 mls/hr DAILY IV 10/26/16 11:00 10/29/16 09:29 10/28/16 13:19 Mesna/Sodium Chloride (Mesnex Inj/NS 500 ml Inj) 514.82 ml @ 21.451 mls/hr Q24H IV 10/26/16 11:00 10/29/16 10:59 10/28/16 13:36 Allopurinol (Zyloprim) 300 mg BID PO 10/27/16 09:00 10/28/16 21:37 Objective Remarks GENERAL APPEARANCE: Mr. Chou is an elderly male, he is tall and heavy-set, he has a very pleasant disposition and is in no acute distress. HEENT: Head atraumatic, normocephalic, conjunctivae are mildly pale. Sclerae are anicteric, EOMI, PERRLA, oral exam no pharyngeal erythema. NECK: No palpable cervical or supraclavicular lymphadenopathy. RESPIRATORY: Good air movement bilaterally. No added breath sounds. CARDIOVASCULAR: Regular rate and rhythm, S1-S2. No obvious murmurs, gallops. ABDOMEN: Obese belly, soft, nontender, nondistended, no palpable organ enlargement, specifically no hepatosplenomegaly. EXTREMITIES: Lower extremities, no pretibial edema. No calf tenderness. PICC line in right arm. JAZ/LYMPH EXAMINATION: No cervical lymphadenopathy, no axillary lymphadenopathy and no inguinal lymphadenopathy. 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 Assessment/Plan Problem List: (1) Acute lymphocytic leukemia Status: Acute Plan: -- Awaiting bone marrow biopsy results -- Noted to have metamyelocytes and myelocytes in circulation -- CT abdomen shows no diffuse lymphadenopathy -- CT angiography of the chest showed no mediastinal lymphadenopathy -- Hepatitis panel negative Hx/Workup: Patient began to notice approximately 2 weeks ago that he is having breathlessness with exertion. This is concerning to him as he is usually able to walk approximately 3-4 miles with no problems. His PCP advised that the go to the hospital for evaluation. He was originally seen for [facility] and peripheral blood flow cytometry indicated findings consistent with B-cell acute lymphoblastic leukemia. He was transferred to [place] for further workup and inpatient induction chemotherapy. Assessment 71-year-old male admitted for workup and induction chemotherapy for a diagnosis of B-cell acute lymphocytic leukemia Plan 1. Started chemotherapy with hyper-CVAD on 10/26/2016. I will add on Rituxan today given the CD 20 positivity of the B-cell ALL on Flow cytometry on bone marrow aspiration specimen. Await results of the [place] chromosome to determine if the patient may benefit from tyrosine kinase inhibitors. He is thus far tolerating treatment without significant difficulty. He is however increasingly cytopenic, had neutropenic, anemic and from cytopenic. 2. Continue supportive transfusions; daily CBCs. 3. 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 Creatinine up from 0.9 to 1.78 over the past 48 hours. I have started him on sodium bicarbonate infusion. Repeat blood work tomorrow, consider nephrology consultation. 4. Daily CBC, CMP's ordered. 5. Temperature 100.3F overnight, I started him on vancomycin in addition to the cefepime he was already on. Blood cultures and urine cultures a been ordered. 1 set of blood cultures to be drawn from his PICC line, the other from a peripheral stick. Urine cultures ordered, chest x-ray ordered. Infectious diseases consultation placed. 6. Anemia: 2 units packed red blood cells ordered. Continue ongoing care. Sukhwinder Rice MD Oct 29, 2016 07:41
[2016-10-29 08:19] LABS: BANDS 12 % (0-6); METAMYELOCYTES 12 % (0-1); POLYS (SEG NEUTROPHILS) 68 % (16-70); WBC DIFF SAMPLE 25
[2016-10-29 08:21] LABS: KERATOCYTES OCC (NORMAL); OVALOCYTES 1+ (NORMAL); PLATELET ESTIMATE SMEAR RARE (NORMAL)
[2016-10-29 08:22] LABS: PLATELET MORPHOLOGY NORMAL (NORMAL); SCAN/DIFF FINAL DIFF MANUAL
[2016-10-29 08:25] LABS: NEUTROPHIL # MANUAL DIFF 0.2 TH/MM3 (1.8-7.7)
[2016-10-29] MEDS: ALLOPURINOL 300 MG TAB PO SCH ×2 (08:42→20:54)
[2016-10-29] MEDS: SODIUM CHLORIDE 0.9% FLUSH 10 ML FLUSH IVF SCH (08:42)
[2016-10-29] MEDS: SODIUM CHLORIDE 0.9% FLUSH 10 ML FLUSH IV FLUSH SCH ×2 (08:42→20:54)
[2016-10-29] MEDS: LACTOBACILLUS ACIDOPHILUS TAB PO SCH ×3 (08:42→17:19)
[2016-10-29] MEDS: amLODIPine BESYLATE 5 MG TAB PO SCH (08:42)
[2016-10-29] MEDS: DOXYCYCLINE HYCLATE 100 MG TAB PO SCH ×2 (08:42→20:54)
[2016-10-29] MEDS: SODIUM BICARBONATE 8.4% INJ 100 MEQ in DEXTROSE 5% IN WATE 1000ML INJ 1,000 ML IV SCH ×4 (08:44→23:50)
[2016-10-29] MEDS ORDERED: VANCOMYCIN INJ 1,250 MG in SODIUM CHLOR 0.9% 250 ML INJ 250 ML IV SCH (09:00)
--- NOTE | 2016-10-29 09:13 | RADRPT ---
EXAM DATE/TIME: 10/29/2016 08:10 [facility] COMPARISON: No previous studies available for comparison. INDICATIONS : Fever. MEDICAL HISTORY : Acute lymphoblastic leukenia. SURGICAL HISTORY : Appendectomy. ENCOUNTER: Subsequent ACUITY: 4 - 6 days PAIN SCORE: 0/10 LOCATION: Bilateral cranial FINDINGS: 2 frontal views of the chest demonstrate the lungs to be symmetrically aerated without evidence of ma ss, infiltrate or effusion. The cardiomediastinal contours are unremarkable. Osseous structures are intact. Right-sided PICC line. CONCLUSION: No acute disease. Dion Marmolejo Jr., MD on October 29, 2016 at 9:10 Board Certified Radiologist. This report was verified electronically.
[2016-10-29] MEDS: GRANISETRON HCL 1 MG TAB PO SCH ×2 (10:33→20:54)
[2016-10-29] MEDS ORDERED: vinCRIStine INJ 2 MG in SODIUM CHLORIDE 0.9% INJ 50 ML IV ONE ×2 (12:00→20:30)
[2016-10-29] MEDS: diphenhydrAMINE HCL 25 MG CAP PO PRN (12:02)
[2016-10-29] MEDS ORDERED: DOXORUBICIN IV ONE ×2 (12:45→21:00)
[2016-10-29] MEDS ORDERED: Vancomycin Consult Pharmacy 1 EA OTHER SCH (12:45)
[2016-10-29] MEDS ORDERED: SODIUM CHLOR 0.9% IV ONE ×2 (12:45→21:00)
--- NOTE | 2016-10-29 13:37 | MB ---
cc: KATI POOL MD DATE OF CONSULTATION 10/29/[address] 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 HISTORY OF PRESENT ILLNESS This is a 71-year-old white male who was diagnosed recently with acute leukemia. The patient was admitted to the hospital on 10/24. He has started to chemotherapy with vincristin, doxarubicin, and Rituximab and also cyclophosphamide. The white blood cell count was 2.2 on 10/24 and is now down to 0.2 and he also has thrombocytopenia and anemia. The patient presents with shortness of breath and he also had easy bruising. Currently he tells me that he feels well. He did have some chills last night. His temperature ellie to 100.3 degrees which is the highest since admission this morning early. It is reported to me by the nurse that this elevated temperature was during chemotherapy. His temperature is now down to normal. Blood cultures were taken today and also urine culture and these are pending. The patient is currently on antibiotics. PAST MEDICAL HISTORY 1. Rheumatic fever 2. Removal of vocal polyps in his 20s. 3. Appendectomy ALLERGIES No drug allergies. MEDICATIONS 1. Vancomycin 2. Kytril 3. Tylenol 4. Benadryl 5. Norvasc 6. Lactinex 7. Cefepime 8. Doxycycline 9. DuoNeb SOCIAL HISTORY No tobacco use. The patient smoked briefly many years ago. No alcohol. No illicit drugs. FAMILY HISTORY Significant for COPD in his father and heart disease in his mother. REVIEW OF SYSTEMS GENERAL: Positive for chills and low grade fever. HEAD, EYES, EARS, NOSE, AND THROAT: No visual blurring or diplopia. No difficulty swallowing or soreness of the throat. No nasal bleeding or nasal discharge. NECK: No neck pain or neck swelling. CARDIOVASCULAR: No palpitation or chest pain. RESPIRATORY: Significant for shortness of breath. No cough. GASTROINTESTINAL: No nausea, vomiting, abdominal pain or diarrhea. GENITOURINARY: No urgency, frequency or dysuria. MUSCULOSKELETAL: No muscle aches or pain. HEMATOPOIETIC: Easy bruising. ENDOCRINE: No polyuria or polydipsia. NEUROLOGIC: No problems with coordination or dizziness. PSYCHIATRIC: No mood problems with depression. PHYSICAL EXAMINATION This is a pleasant well-developed moderately obese male in no acute distress. He is awake and alert and oriented. VITAL SIGNS: Temperature 98.8, BP 108/57, respirations 16, heart rate 81. HEAD, EYES, EARS, NOSE, AND THROAT: The head is atraumatic. Extraocular movements grossly intact. Pupils reactive to light. No icterus. Oropharynx moist mucosa without lesions. The patient is edentulous. NECK: Supple without adenopathy or swelling. LUNGS: Slight rhonchi at the right base. HEART: Regular S1 and S2 without audible murmurs, rubs or gallops. ABDOMEN: Bowel sounds present, obese, soft, and nontender. No masses palpable. RECTAL: Not performed. EXTREMITIES: No clubbing, cyanosis or edema. The patient has some bruises of the upper extremity in the area of IV drug blood draws. SKIN: No diffuse rash. NEUROLOGIC: No gross focal findings. PSYCHIATRIC: The patient is pleasant, calm and cooperative. LABORATORY DATA WBC 0.2, platelets 14, 60% neutrophils, 12% banded neutrophils, 68% neutrophils, 8% lymphocytes, creatinine 1.76, BUN 52, estimated GFR 38, AST 351, ALT 35, alkaline phosphatase 42. HSV1 IgG positive, HSV2 IgG negative, hepatitis serology negative, CMV antibody pending. IMPRESSION 1. Acute myelogenous leukemia with pancytopenia. Patient undergoing induction chemotherapy and now has had a low grade fever. 2. Febrile neutropenia. RECOMMENDATIONS 1. Continue cefepime. 2. Continue vancomycin with pharmacy to monitor the dosage since the patient's renal function has declined. 3. Continue doxycycline. 4. Monitor temperature. 5. Monitor cultures. 6. Monitor clinical status. 7. Observe for obvious signs of infection. Thank you for this consultation. I will follow the patient's progress along with you and make further recommendations upon followup. Kati Pool MD FD/KRISTINE /12:53 PM /1:17 PM MTDJerrod
[2016-10-29] MEDS: DEXAMETHASONE IV SCH (14:49)
[2016-10-29] MEDS: SODIUM CHLORIDE 0.9% IV SCH (14:49)
--- NOTE | 2016-10-29 15:28 | HHI.PR ---
Subjective Remarks Follow up pancytopenia, pneumonia. Patient developed fever overnight. Infectious disease was consulted. Patient states that he feels better this afternoon. Did not feel well last night due to fevers. Denies chest pain, dyspnea. Objective Vitals Vital Signs Date Time Temp Pulse Resp B/P Pulse Ox O2 Delivery O2 Flow Rate FiO2 10/29/16 12:51 98.8 81 16 108/57 100 10/29/16 12:21 97.3 77 21 101/53 99 10/29/16 08:49 97.8 91 21 123/69 100 10/29/16 04:14 99.8 86 18 112/51 97 10/29/16 04:10 93 10/29/16 02:48 100.3 103 18 94/51 10/29/16 01:36 100.3 104 18 96/54 10/29/16 00:57 99.7 107 18 108/54 10/29/16 00:17 100.0 104 18 107/51 10/29/16 00:05 98 10/28/16 23:24 99.2 99 18 102/56 98 10/28/16 23:00 100 111/48 10/28/16 22:38 99.8 99 18 112/54 10/28/16 21:38 99.0 104 20 130/61 97 10/28/16 20:49 97.6 96 20 137/58 100 10/28/16 20:00 88 10/28/16 19:40 97.3 80 20 160/69 10/28/16 18:59 97.1 83 18 135/72 100 10/28/16 18:30 98.7 70 20 146/71 100 10/28/16 16:00 98.2 72 16 145/66 99 10/28/16 16:00 66 I/O 10/28/16 10/28/16 10/28/16 10/29/16 10/29/16 10/29/16 07:00 15:00 23:00 07:00 15:00 23:00 Intake Total 760 ml 2659 ml 1640 ml 240 ml Output Total 1400 ml 2200 ml 1500 ml 400 ml Balance -640 ml 459 ml -1500 ml 1240 ml 240 ml Intake Oral 1761 ml 240 ml IV Total 760 ml 898 ml 1640 ml Output Urine Total 1400 ml 2200 ml 1500 ml 400 ml # Voids 3 Result Diagram: 10/29/16 0400 10/29/16 0400 Imaging Last Impressions Chest X-Ray 10/29/16 0000 Signed Impressions: Service Date/Time: Saturday, October 29, 2016 08:10 - CONCLUSION: No acute disease. Dion Marmolejo Jr., MD Lumbar Puncture Fluoroscopy 10/27/16 0000 Signed Impressions: Service Date/Time: Thursday, October 27, 2016 12:19 - CONCLUSION: Uncomplicated fluoroscopically guided lumbar puncture with chemotherapy injection. Matt Lassiter MD PICC Line Insertion 10/24/16 0000 Signed Impressions: Service Date/Time: Monday, October 24, 2016 12:01 - CONCLUSION: 1. Uncomplicated central venous Power PICC line placement. 2. The PICC line can be used immediately. Serafin Saba MD Bone Biopsy CT 10/24/16 0000 Signed Impressions: Service Date/Time: Monday, October 24, 2016 16:09 - CONCLUSION: 1. Uncomplicated CT guided bone marrow aspirate. 2. Uncomplicated CT guided bone marrow biopsy. Balwinder Swenson MD Abdomen/Pelvis CT 10/24/16 0000 Signed Impressions: Service Date/Time: Monday, October 24, 2016 15:57 - CONCLUSION: 1. Hepatic steatosis. 2. No evidence of metastatic disease or suspicious mass. 3. Bilateral inguinal hernias. Triston Espinoza MD Objective Remarks General: Obese male in no acute distress. Heart: Regular rate and rhythm. No murmur. Lungs: Clear to auscultation bilaterally. No wheezes, rales, or rhonchi. Breathing is nonlabored. Abdomen: Soft, nontender, nondistended. Extremities: No lower extremity edema. Psych: Alert and oriented. Procedures 10/24/16 PICC line placement 10/24/16 bone marrow biopsy Urinary Catheter: No Vascular Central Line Catheter: Yes Date of Insertion: Oct 24, 2016 Line: PICC A/P Problem List: (1) Pancytopenia ICD Code: D61.818 Status: Acute (2) Pneumonia ICD Code: J18.9 Status: Acute (3) Acute lymphocytic leukemia ICD Code: C91.00 Status: Acute (4) Hypertension ICD Code: I10 Status: Chronic Assessment and Plan 10/29/16 Neutropenic fever. Antibiotics per infectious disease. Chemo per oncology. 1. ALL: Appreciate oncology recommendations. Continue chemotherapy per oncology. 2. Pneumonia: Continue cefepime, doxycycline. DuoNeb as needed. Stable on room air. 3. Hypertension: Continue amlodipine. Vasotec IV as needed. Blood pressure control improved. 4. DVT prophylaxis: KRISTEN Seaman. Problem Qualifiers (1) Pneumonia: Qualified Code: J18.9 - Pneumonia of right lung due to infectious organism, unspecified part of lung Hugo Dumont MD Oct 29, 2016 15:28
[2016-10-30] VITALS (11 sets, daily range): BP systolic 115–163; BP diastolic 55–100; PULSE 73–138; RESP 15–20; TEMP 96.2–97.2; O2SAT 95–98
[2016-10-30] MEDS ORDERED: VANCOMYCIN INJ 2,000 MG in SODIUM CHLORID 0.9% 500 ML INJ 500 ML IV ONE ×2
[2016-10-30] MEDS: CEFEPIME INJ 2,000 MG in SODIUM CHLORIDE 0.9% INJ 100 ML IV SCH ×2 (04:12→12:34)
[2016-10-30 05:32] LABS: MEAN CELL VOLUME 97.4 FL (80.0-100.0); MEAN CORPUSCULAR HEMOGLOBIN 34.3 PG (27.0-34.0); MEAN CORPUSCULAR HGB CONC 35.2 % (32.0-36.0); RED BLOOD COUNT 2.11 MIL/MM3 (4.50-5.90); RED CELL DISTRIBUTION WIDTH 19.9 % (11.6-17.2); WHITE BLOOD COUNT 0.3 TH/MM3 (4.0-11.0)
[2016-10-30 05:40] LABS: HEMO FLAGS AUTO DIFF
[2016-10-30 05:41] LABS: HEMATOCRIT 20.5 % (39.0-51.0); PLATELET COUNT 10 TH/MM3 (150-450)
[2016-10-30 06:18] LABS: BICARBONATE 20.4 MEQ/L (21.0-32.0); CALCIUM-PROTEIN CORRECTED 8.2 MG/DL (8.5-10.1); POTASSIUM 4.6 MEQ/L (3.5-5.1); TOTAL BILIRUBIN ADULT 0.8 MG/DL (0.2-1.0)
[2016-10-30] MEDS ORDERED: DILTIAZEM HCL 30 MG TAB PO ONE (06:30)
[2016-10-30] MEDS ORDERED: DILTIAZEM HCL 60 MG TAB PO ONE (06:30)
[2016-10-30] MEDS ORDERED: PILL SPLITTER OTHER PRN (06:45)
[2016-10-30 07:08] LABS: BANDS 14 % (0-6); EOSINOPHILS 2 % (0-4); NEUTROPHIL # MANUAL DIFF 0.3 TH/MM3 (1.8-7.7); OVALOCYTES 1+ (NORMAL); POLYS (SEG NEUTROPHILS) 78 % (16-70); WBC DIFF SAMPLE 50
[2016-10-30 07:09] LABS: PLATELET ESTIMATE SMEAR RARE (NORMAL); PLATELET MORPHOLOGY NORMAL (NORMAL); SCAN/DIFF FINAL DIFF MANUAL
[2016-10-30] MEDS: SODIUM CHLORIDE 0.9% FLUSH 10 ML FLUSH IVF PRN (08:44)
[2016-10-30] MEDS: SODIUM CHLORIDE 0.9% FLUSH 10 ML FLUSH IVF SCH (08:44)
[2016-10-30] MEDS: SODIUM CHLORIDE 0.9% FLUSH 10 ML FLUSH IV FLUSH SCH ×2 (08:45→20:40)
[2016-10-30] MEDS ORDERED: SODIUM CHLOR 0.9% 1000 ML INJ 1,000 ML IV PRN ×2 (08:47)
[2016-10-30] MEDS: SODIUM CHLOR 0.9% 1000 ML INJ 1,000 ML IV SCH (08:52)
[2016-10-30] MEDS: DOXYCYCLINE HYCLATE 100 MG TAB PO SCH ×2 (08:53→20:40)
[2016-10-30] MEDS: ALLOPURINOL 300 MG TAB PO SCH ×2 (08:53→20:40)
[2016-10-30] MEDS: BUMETANIDE INJ 1 MG/4 ML VIAL IV PUSH SCH ×2 (08:53→16:56)
[2016-10-30] MEDS: LACTOBACILLUS ACIDOPHILUS TAB PO SCH ×3 (08:53→16:56)
--- NOTE | 2016-10-30 08:54 | PD.CONS ---
[facility] Service Nephrology Consult Requested By Reason for Consult Acute kidney injury Primary Care Physician Hallie Norris M.D. History of Present Illness was diagnosed with PE and mediastinal lymphadenopathy at [facility]. He is now diagnosed with acute lymphoblastic leukemia. He is now in [place], started on chemotherapy. Creatinine was 0.98 until 14th of this month. It was 1.76 yesterday, and has increased to 3.7 today. Patient reports that his urine output has dropped. He has developed lower extremity edema. His weight has increased by nearly 10 kg. He has become pancytopenic. Review of Systems Constitutional: COMPLAINS OF: Fatigue, Weight gain, DENIES: Fever Ears, nose, mouth, throat: DENIES: Vertigo Respiratory: COMPLAINS OF: Shortness of breath Cardiovascular: COMPLAINS OF: Palpitations, Lower Extremity Edema, DENIES: Chest pain Gastrointestinal: DENIES: Abdominal pain, Black stools, Bloody stools Integumentary: DENIES: Abnormal pigmentation Neurologic: DENIES: Headache, Localized weakness, Paresthesias Psychiatric: DENIES: Confusion, Agitation, Suicidal Ideation Past Family Social History Allergies: Coded Allergies: No Known Allergies (Unverified , 10/24/16) Past Medical History no major chronic illness before this diagnosis. History of PE. ALL Atrial fibrillation which he has developed at this time. Active Ordered Medications Current Medications Medications (Trade) Dose Ordered Sig/Daniel Route Start Time Stop Time Status Last Admin (NS Flush) 2 ml UNSCH PRN IV FLUSH 10/24/16 01:45 10/28/16 03:42 (NS Flush) 2 ml BID IV FLUSH 10/24/16 09:00 10/29/16 20:54 Naloxone HCl 0.4 mg 0.4 mg UNSCH PRN IV 10/24/16 01:45 (Maxipime Inj/NS Inj) 100 ml @ 200 mls/hr Q8H IV 10/24/16 04:00 10/30/16 04:12 (Vibratab) 100 mg Q12HR PO 10/24/16 09:00 10/29/16 20:54 (NS Flush) DAILY IVF 10/25/16 09:00 10/26/16 08:01 (Heparin Central Flush) DAILY IV FLUSH 10/25/16 09:00 10/26/16 08:01 (NS Flush) 2 ml UNSCH PRN IVF 10/24/16 13:15 (Lactinex) 1 tab TID PO 10/24/16 18:00 10/29/16 17:19 (Vasotec Inj) 1.25 mg Q8H PRN IV PUSH 10/25/16 15:45 (Norvasc) 5 mg DAILY PO 10/25/16 15:45 10/29/16 08:42 (Benadryl) 25 mg Q4H PRN PO 10/25/16 18:00 10/29/16 12:02 Allopurinol 300 mg 300 mg BID PO 10/27/16 09:00 10/29/16 20:54 (Vancomycin Consult Pharmacy) 0 ml @ 0 mls/hr UNSCH OTHER 10/29/16 12:45 Miscellaneous 1 ea 1 ea UNSCH PRN OTHER 10/30/16 06:45 10/30/16 06:36 (NS 1000 ml Inj) 1,000 ml @ 42 mls/hr [id number] IV 10/30/16 08:30 (Bumex Inj) 2 mg BID@09,18 IV PUSH 10/30/16 09:00 (Renvela) 1,600 mg TIDAC PO 10/30/16 12:00 Family History sister had breast cancer. Social History quit smoking 30 years ago. No ETOH. . Physical Exam Vital Signs Vital Signs Date Time Temp Pulse Resp B/P Pulse Ox O2 Delivery O2 Flow Rate FiO2 10/30/16 04:26 95 10/30/16 04:00 96.9 109 18 115/55 98 10/30/16 00:00 114 10/30/16 00:00 96.2 75 19 124/56 97 10/29/16 20:00 89 10/29/16 20:00 97.6 74 19 113/75 99 10/29/16 17:00 98.4 82 20 117/53 98 10/29/16 16:44 96.6 99 20 160/70 96 10/29/16 16:33 96.0 84 21 125/55 100 10/29/16 13:15 98.3 80 20 95/54 99 10/29/16 12:51 98.8 81 16 108/57 100 10/29/16 12:21 97.3 77 21 101/53 99 10/29/16 08:49 97.8 91 21 123/69 100 Physical Exam GENERAL: Pleasant, not in distress. SKIN: Warm and dry. HEAD: Normocephalic. EYES: No scleral icterus. No injection or drainage. NECK: Supple, trachea midline. No JVD or lymphadenopathy. CARDIOVASCULAR: tachycardia. RESPIRATORY: bilateral wheezing. GASTROINTESTINAL: Abdomen soft, non-tender, nondistended. MUSCULOSKELETAL: 3+ edema. BACK: Nontender without obvious deformity. No CVA tenderness. Laboratory Laboratory Tests Test 10/30/16 04:30 White Blood Count 0.3 Red Blood Count 2.11 Hemoglobin 7.2 Hematocrit 20.5 Mean Corpuscular Volume 97.4 Mean Corpuscular Hemoglobin 34.3 Mean Corpuscular Hemoglobin 35.2 Concent Red Cell Distribution Width 19.9 Platelet Count 10 Mean Platelet Volume 8.1 Neutrophils (%) (Auto) Lymphocytes (%) (Auto) Monocytes (%) (Auto) Eosinophils (%) (Auto) Basophils (%) (Auto) Neutrophils # (Auto) Lymphocytes # (Auto) Monocytes # (Auto) Eosinophils # (Auto) Basophils # (Auto) CBC Comment AUTO DIFF Differential Total Cells 50 Counted Neutrophils % (Manual) 78 Band Neutrophils % 14 Lymphocytes % 6 Eosinophils % 2 Neutrophils # (Manual) 0.3 Differential Comment FINAL DIFF MANUAL Platelet Estimate RARE Platelet Morphology Comment NORMAL Ovalocytes 1+ Sodium Level 132 Potassium Level 4.6 Chloride Level 101 Carbon Dioxide Level 20.4 Anion Gap 11 Blood Urea Nitrogen 78 Creatinine 3.72 Estimat Glomerular Filtration 16 Rate Random Glucose 223 Uric Acid 8.0 Calcium Level 7.0 Protein Corrected Calcium 8.2 Phosphorus Level 8.7 Total Bilirubin 0.8 Aspartate Amino Transf 91 (AST/SGOT) Alanine Aminotransferase 46 (ALT/SGPT) Alkaline Phosphatase 61 Total Protein 4.8 Albumin 2.4 Date/Time Procedure Status Source Growth 10/29/16 11:49 Aerobic Blood Culture Received Blood Peripheral Pending 10/29/16 11:49 Anaerobic Blood Culture Received Blood Peripheral Pending 10/29/16 09:20 Urine Culture Received Urine Random Urine Pending Result Diagram: 10/30/160 10/30/16429 Assessment and Plan Problem List: (1) Acute kidney injury Plan: the patient likely has suffered Tumor lysis syndrome. Oliguric. Weight has increased by 10kg. Does not have hyperkalemia yet. He does have hypocalcemia, hyperphosphatemia, and hyperuricemia. Discussed with Dr. Rice who is going to speak with pharmacy about Rasburicase. We will initiate dialysis. Bicarbonate drip will be stopped: not recommended in this situation as it can promote deposition of phosphate containing stones. Start diuretics and assess response. Avoid nephrotoxic agents. (2) Acute lymphocytic leukemia Plan: Receive chemotherapy. (3) Hyperphosphatemia Plan: Start phosphorus binders. Dialysis. (4) Hypocalcemia Plan: Avoid IV calcium administration. Treat hyperphosphatemia. Assessment and Plan Thanks for the consult. Discussed with Dr. Rice. Prognosis is guarded. Clay Galicia MD Oct 30, 2016 08:54
[2016-10-30] MEDS: amLODIPine BESYLATE 5 MG TAB PO SCH (08:59)
[2016-10-30] MEDS ORDERED: MANNITOL 12.5 GM/50 ML VIAL IV PRN (09:00)
[2016-10-30] MEDS ORDERED: NITROGLYCERIN 0.4 MG SL 25 TABS/BTL SL PRN (09:00)
[2016-10-30] MEDS ORDERED: cloNIDine HCL 0.1 MG TAB PO PRN (09:00)
[2016-10-30] MEDS ORDERED: GELATIN 12 MM/7 MM FOAM TOP PRN (09:00)
[2016-10-30] MEDS ORDERED: ALBUMIN HUMAN 25% 25 GM/100 ML BAGP IV PRN (09:00)
[2016-10-30] MEDS ORDERED: HEPARIN SODIUM - IV 10,000 UNITS/10 ML VIAL IVF PRN (09:00)
--- NOTE | 2016-10-30 09:09 | RADRPT ---
EXAM DATE/TIME: 10/30/2016 08:13 [place] COMPARISON: CT ABDOMEN & PELVIS W CONTRAST, October 24, 2016, 15:57. INDICATIONS : Increased BUN/Creatinine. MEDICAL HISTORY : Leukemia. Dyspnea. SURGICAL HISTORY : Appendectomy. ENCOUNTER: Initial ACUITY: 1 day PAIN SCORE: 0/10 LOCATION: Bilateral flank MEASUREMENTS: RIGHT KIDNEY: 11.7 x 6.1 x 5.8 cm LEFT KIDNEY: 11.7 x 7.2 x 7.1 cm FINDINGS: RIGHT KIDNEY: Renal cortex is normal in thickness and echotexture. No hydronephrosis, stone, or mass. LEFT KIDNEY: Renal cortex is normal in thickness and echotexture. No hydronephrosis, stone, or mass. BLADDER: Within normal limits given the degree of distension. CONCLUSION: Unremarkable exam with no evidence of hydronephrosis. Wander Hodges MD on October 30, 2016 at 9:07 Board Certified Radiologist. This report was verified electronically.
[2016-10-30] MEDS ORDERED: Custom Consult Pharmacy 1 EA OTHER SCH (09:15)
[2016-10-30] MEDS ORDERED: SODIUM CHLOR 0.9% 250 ML INJ 250 ML IV ONE (09:15)
--- NOTE | 2016-10-30 10:38 | PD.ONC.PN ---
Subjective Subjective Remarks Had Afib with RVR this AM while getting up to the restroom. Urine output is less. Gaining wt (about 15 lbs since admission). Denies fevers or chills. Arma short of breath with exertion. Objective Data Date Time Temp Pulse Resp B/P Pulse Ox O2 Delivery O2 Flow Rate FiO2 10/30/16 08:00 96.4 138 20 139/75 98 10/30/16 04:26 95 10/30/16 04:00 96.9 109 18 115/55 98 10/30/16 00:00 114 10/30/16 00:00 96.2 75 19 124/56 97 10/29/16 20:00 89 10/29/16 20:00 97.6 74 19 113/75 99 10/29/16 17:00 98.4 82 20 117/53 98 10/29/16 16:44 96.6 99 20 160/70 96 10/29/16 16:33 96.0 84 21 125/55 100 10/29/16 13:15 98.3 80 20 95/54 99 10/29/16 12:51 98.8 81 16 108/57 100 10/29/16 12:21 97.3 77 21 101/53 99 10/30/16 10/30/16 10/30/16 07:00 15:00 23:00 Intake Total 1083 ml 480 ml Output Total 100 ml 300 ml Balance 983 ml 180 ml Result Diagram: 10/30/16 0430 10/30/16 0430 Laboratory Results Laboratory Tests Test 10/30/16 04:30 White Blood Count 0.3 TH/MM3 Red Blood Count 2.11 MIL/MM3 Hemoglobin 7.2 GM/DL Hematocrit 20.5 % Mean Corpuscular Volume 97.4 FL Mean Corpuscular Hemoglobin 34.3 PG Mean Corpuscular Hemoglobin 35.2 % Concent Red Cell Distribution Width 19.9 % Platelet Count 10 TH/MM3 Mean Platelet Volume 8.1 FL Neutrophils (%) (Auto) % Lymphocytes (%) (Auto) % Monocytes (%) (Auto) % Eosinophils (%) (Auto) % Basophils (%) (Auto) % Neutrophils # (Auto) TH/MM3 Lymphocytes # (Auto) TH/MM3 Monocytes # (Auto) TH/MM3 Eosinophils # (Auto) TH/MM3 Basophils # (Auto) TH/MM3 CBC Comment AUTO DIFF Differential Total Cells 50 Counted Neutrophils % (Manual) 78 % Band Neutrophils % 14 % Lymphocytes % 6 % Eosinophils % 2 % Neutrophils # (Manual) 0.3 TH/MM3 Differential Comment FINAL DIFF MANUAL Platelet Estimate RARE Platelet Morphology Comment NORMAL Ovalocytes 1+ Sodium Level 132 MEQ/L Potassium Level 4.6 MEQ/L Chloride Level 101 MEQ/L Carbon Dioxide Level 20.4 MEQ/L Anion Gap 11 MEQ/L Blood Urea Nitrogen 78 MG/DL Creatinine 3.72 MG/DL Estimat Glomerular Filtration 16 ML/MIN Rate Random Glucose 223 MG/DL Uric Acid 8.0 MG/DL Calcium Level 7.0 MG/DL Protein Corrected Calcium 8.2 MG/DL Phosphorus Level 8.7 MG/DL Total Bilirubin 0.8 MG/DL Aspartate Amino Transf 91 U/L (AST/SGOT) Alanine Aminotransferase 46 U/L (ALT/SGPT) Alkaline Phosphatase 61 U/L Total Protein 4.8 GM/DL Albumin 2.4 GM/DL Culture Results Microbiology Date/Time Procedure Status Source Growth 10/29/16 09:20 Aerobic Blood Culture Received Blood Other Pending 10/29/16 09:20 Anaerobic Blood Culture Received Blood Other Pending 10/29/16 09:20 Urine Culture - Preliminary Resulted Urine Random Urine NO GROWTH IN 24 HOURS. 10/29/16 11:49 Aerobic Blood Culture Received Blood Peripheral Pending 10/29/16 11:49 Anaerobic Blood Culture Received Blood Peripheral Pending Imaging Studies Last 24 hours Impressions Renal Ultrasound 10/30/16 0000 Signed Impressions: Service Date/Time: October 08:13 - CONCLUSION: Unremarkable exam with no evidence of hydronephrosis. Wander Hodges MD Administered Medications Medications (Trade) Dose Ordered Sig/Daniel Route PRN Reason Start Time Stop Time Status Last Admin Dose Admin Sodium Chloride (NS Flush) 2 ml UNSCH PRN IV FLUSH FLUSH AFTER USING IV ACCESS 10/24/16 01:45 10/28/16 03:42 Sodium Chloride 2 ml 2 ml BID IV FLUSH 10/24/16 09:00 10/29/16 20:54 Cefepime HCl/ Sodium Chloride (Maxipime Inj/NS Inj) 100 ml @ 200 mls/hr Q8H IV 10/24/16 04:00 10/30/16 04:12 Doxycycline Hyclate (Vibratab) 100 mg Q12HR PO 10/24/16 09:00 10/30/16 08:53 Sodium Chloride (NS Flush) DAILY IVF 10/25/16 09:00 10/26/16 08:01 Heparin Sodium (Porcine) (Heparin Central Flush) DAILY IV FLUSH 10/25/16 09:00 10/26/16 08:01 Lactobacillus Acidophilus (Lactinex) 1 tab TID PO 10/24/16 18:00 10/30/16 08:53 Amlodipine Besylate (Norvasc) 5 mg DAILY PO 10/25/16 15:45 10/30/16 08:59 Diphenhydramine HCl (Benadryl) 25 mg Q4H PRN PO WHILE BLOOD INFUSING 10/25/16 18:00 10/29/16 12:02 Allopurinol (Zyloprim) 300 mg BID PO 10/27/16 09:00 10/30/16 08:53 Miscellaneous 1 ea 1 ea UNSCH PRN OTHER SEE LABEL COMMENTS 10/30/16 06:45 10/30/16 06:36 Sodium Chloride (NS 1000 ml Inj) 1,000 ml @ 42 mls/hr [id number] IV 10/30/16 08:30 10/30/16 08:52 Bumetanide (Bumex Inj) 2 mg BID@,18 IV PUSH 10/30/16 09:00 10/30/16 08:53 Objective Remarks GENERAL APPEARANCE: Mr. Chou is an elderly male, he is tall and heavy-set, he has a very pleasant disposition and is in no acute distress. HEENT: Head atraumatic, normocephalic, conjunctivae are mildly pale. Sclerae are anicteric, EOMI, PERRLA, oral exam no pharyngeal erythema. NECK: No palpable cervical or supraclavicular lymphadenopathy. RESPIRATORY: Good air movement bilaterally. No added breath sounds. CARDIOVASCULAR: Regular rate and rhythm, S1-S2. No obvious murmurs, gallops. ABDOMEN: Obese belly, soft, nontender, nondistended, no palpable organ enlargement, specifically no hepatosplenomegaly. EXTREMITIES: Lower extremities, positive for pretibial edema. No calf tenderness. PICC line in right arm. JAZ/LYMPH EXAMINATION: No cervical lymphadenopathy, no axillary lymphadenopathy and no inguinal lymphadenopathy. 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 Assessment/Plan Problem List: (1) Acute lymphocytic leukemia Status: Acute Plan: -- Awaiting bone marrow biopsy results -- Noted to have metamyelocytes and myelocytes in circulation -- CT abdomen shows no diffuse lymphadenopathy -- CT angiography of the chest showed no mediastinal lymphadenopathy -- Hepatitis panel negative Hx/Workup: Patient began to notice approximately 2 weeks ago that he is having breathlessness with exertion. This is concerning to him as he is usually able to walk approximately 3-4 miles with no problems. His PCP advised that the go to the hospital for evaluation. He was originally seen for [facility] and peripheral blood flow cytometry indicated findings consistent with B-cell acute lymphoblastic leukemia. He was transferred to [place] for further workup and inpatient induction chemotherapy. Assessment 71-year-old male admitted for workup and induction chemotherapy for a diagnosis of B-cell acute lymphocytic leukemia Plan 1. Started chemotherapy with Rituxan + hyper-CVAD on 10/26/2016; given the CD 20 positivity of the B-cell ALL on Flow cytometry on bone marrow aspiration specimen. Await results of the [place] chromosome to determine if the patient may benefit from tyrosine kinase inhibitors. He is increasingly cytopenic, had neutropenic, anemic and from cytopenic. 2. TLS; with renal failure, elevated Uric acid, LDH and Phos. Per nephrology ; start HD today. I will dose him with rasburicase today as well. 3. Continue supportive transfusions; daily CBCs. PLT transfusion ordered today prior to Dialysis cath placement. 4. Daily CBC, CMP's ordered. 5. Isolated Temps earlier this Week: On cefepime and vancomycin. Cultures drawn and negative todate. Appreciated ID input. 6. AFib with RVR: Was given 1 dose of cardiazem this AM. Cardiology consult requested for management. Continue ongoing care. Sukhwinder Rice MD Oct 30, 2016 10:38
[2016-10-30] MEDS ORDERED: ACETAMINOPHEN 325 MG TAB PO PRN (11:00)
[2016-10-30] MEDS ORDERED: diphenhydrAMINE HCL 25 MG CAP PO PRN (11:00)
--- NOTE | 2016-10-30 11:03 | HHI.PR ---
Subjective Remarks Follow up pancytopenia, pneumonia, acute renal failure. The patient states that he feels okay this morning. No specific complaints. Pain is well controlled. Denies dyspnea. Objective Vitals Vital Signs Date Time Temp Pulse Resp B/P Pulse Ox O2 Delivery O2 Flow Rate FiO2 10/30/16 08:00 96.4 138 20 139/75 98 10/30/16 04:26 95 10/30/16 04:00 96.9 109 18 115/55 98 10/30/16 00:00 114 10/30/16 00:00 96.2 75 19 124/56 97 10/29/16 20:00 89 10/29/16 20:00 97.6 74 19 113/75 99 10/29/16 17:00 98.4 82 20 117/53 98 10/29/16 16:44 96.6 99 20 160/70 96 10/29/16 16:33 96.0 84 21 125/55 100 10/29/16 13:15 98.3 80 20 95/54 99 10/29/16 12:51 98.8 81 16 108/57 100 10/29/16 12:21 97.3 77 21 101/53 99 I/O 10/29/16 10/29/16 10/29/16 10/30/16 10/30/16 10/30/16 06:59 14:59 22:59 06:59 14:59 22:59 Intake Total 1640 ml 240 ml 1609 ml 1083 ml 480 ml Output Total 400 ml 100 ml 100 ml 300 ml Balance 1240 ml 240 ml 1509 ml 983 ml 180 ml Intake Oral 240 ml 750 ml 240 ml 480 ml IV Total 1640 ml 200 ml 843 ml Packed Cells 659 ml Output Urine Total 400 ml 100 ml 100 ml 300 ml # Voids 3 # Bowel Movements 1 Result Diagram: 10/30/16 0430 10/30/16 0430 Imaging Last Impressions Renal Ultrasound 10/30/16 0000 Signed Impressions: Service Date/Time: October 08:13 - CONCLUSION: Unremarkable exam with no evidence of hydronephrosis. Wander Hodges MD Chest X-Ray 10/29/16 0000 Signed Impressions: Service Date/Time: Saturday, October 29, 2016 08:10 - CONCLUSION: No acute disease. Dion Marmolejo Jr., MD Lumbar Puncture Fluoroscopy 10/27/16 0000 Signed Impressions: Service Date/Time: Thursday, October 27, 2016 12:19 - CONCLUSION: Uncomplicated fluoroscopically guided lumbar puncture with chemotherapy injection. Matt Lassiter MD PICC Line Insertion 10/24/16 0000 Signed Impressions: Service Date/Time: Monday, October 24, 2016 12:01 - CONCLUSION: 1. Uncomplicated central venous Power PICC line placement. 2. The PICC line can be used immediately. Serafin Saba MD Bone Biopsy CT 10/24/16 0000 Signed Impressions: Service Date/Time: Monday, October 24, 2016 16:09 - CONCLUSION: 1. Uncomplicated CT guided bone marrow aspirate. 2. Uncomplicated CT guided bone marrow biopsy. Balwinder Swenson MD Abdomen/Pelvis CT 10/24/16 0000 Signed Impressions: Service Date/Time: Monday, October 24, 2016 15:57 - CONCLUSION: 1. Hepatic steatosis. 2. No evidence of metastatic disease or suspicious mass. 3. Bilateral inguinal hernias. Triston Espinoza MD Objective Remarks General: Obese male in no acute distress. Heart: Regular rate and rhythm. No murmur. Lungs: Clear to auscultation bilaterally. No wheezes, rales, or rhonchi. Breathing is nonlabored. Abdomen: Soft, nontender, nondistended. Extremities: No lower extremity edema. Psych: Alert and oriented. 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 ALL: Appreciate oncology recommendations. Continue chemotherapy per oncology. 2. Pneumonia: Continue cefepime, doxycycline. DuoNeb as needed. Stable on room air. 3. Hypertension: Continue amlodipine. Vasotec IV as needed. Blood pressure control improved. 4. DVT prophylaxis: SCDs, KRISTEN sauer. 5. Tumor lysis syndrome: Patient has developed acute renal failure, uric acidemia, and elevated phosphorus. Potassium is still within normal limits. Appreciate oncology, nephrology management. 6. Atrial fibrillation with RVR: Cardiology consultation is pending. Received 1 dose of Cardizem this morning. Heart rate has been in the 120s. May need transfer to [facility] for Cardizem drip. Problem Qualifiers (1) Pneumonia: Qualified Code: J18.9 - Pneumonia of right lung due to infectious organism, unspecified part of lung Hugo Dumont MD Oct 30, 2016 11:03
--- NOTE | 2016-10-30 11:37 | PD.RAD ---
Post Procedure Progress Note Pre Procedure Diagnosis: (1) Pancytopenia (2) Acute kidney injury Post Procedure Diagnosis: (1) Acute kidney injury (2) Pancytopenia Procedure Date: Oct 30, 2016 Supervising Radiologist: Matt Lassiter Anesthesia: Local Plan of Activity Patient to Unit: Nursing Unit Patient Condition: Fair Additional Comments: Right IJ vascath placed without difficulty. Catheter in good position OK for use. See PACS Report for procedural detail/treatment Matt Lassiter MD Oct 30, 2016 11:37
[2016-10-30] MEDS ORDERED: HEPARIN SODIUM - IV 2,000 UNITS/2 ML VIAL IV FLUSH PRN (11:45)
[2016-10-30] MEDS ORDERED: SODIUM CHLORIDE 0.9% FLUSH 10 ML FLUSH IVF PRN (11:45)
[2016-10-30] MEDS: DILTIAZEM HCL 30 MG TAB PO SCH ×3 (12:00→23:15)
--- NOTE | 2016-10-30 12:08 | RADRPT ---
EXAM DATE/TIME: 10/30/2016 11:04 [facility] COMPARISON: LUMBAR PUNCTURE W/CHEMO INJECT, October 27, 2016, 12:19. INDICATIONS : Patient with acute kidney injury in need of dialysis catheter placement. MEDICAL HISTORY : PE, A-Fib, Acute lymphoblastic leukemia, Chemotherapy, Emphysema, Vocal polyps, Rheumatic fever SURGICAL HISTORY : Appendectomy, Vocal polyps removed ENCOUNTER: Initial ACUITY: 1 week PAIN SCORE: 0/10 FLUORO TIME: 0.7 minutes IMAGE SERIES: 0 ACCESS: Right internal jugular vein DEVICE(S): 1.) 14 Vietnamese dual lumen 15 cm Schon catheter PROCEDURE : 1. Ultrasound guided venipuncture. 2. Fluoroscopic guidance. 3. Central line placement. The risks, benefits and alternatives to the procedure were explained and verbal and written consent w as obtained. The site was prepped in sterile fashion. Full sterile technique was used, including ca p, mask, sterile gloves and gown and a large sterile sheet. Hand hygiene and 2% chlorhexidine prep w as utilized per protocol for cutaneous antisepsis with appropriate dry time for site. The skin and subcutaneous tissues were infiltrated with local anesthetic solution. A suitable site a brandon the right internal jugular vein was selected with ultrasound and fluoroscopic guidance. A small incision was made. The vein was accessed under direct ultrasound visualization using the micropunct ure technique. The micropuncture set was exchanged for a 0.035 wire. The tract was dilated. The ca theter was advanced into position under direct fluoroscopic visualization. The catheter was fixed in place with suture and a sterile dressing was applied. The patient tolerated the procedure well and there were no complications. CONCLUSION: Uncomplicated Vas-Cath placement as above. Matt Lassiter MD on October 30, 2016 at 12:06 Board Certified Radiologist. This report was verified electronically.
[2016-10-30] MEDS: diphenhydrAMINE HCL 25 MG CAP PO PRN (12:34)
[2016-10-30] MEDS: SEVELAMER CARBONATE 800 MG TAB PO SCH ×2 (12:36→16:57)
--- NOTE | 2016-10-30 12:55 | HHI.IDPN ---
Note Infectious Disease Note Patient is sitting on side of bed. Feels okay. Denies chills. No SOB. Decreased UO. Had Vas cath placed. Afebrile. Patient with AML receiving chemotherapy. PAST MEDICAL HISTORY 1. Rheumatic fever 2. Removal of vocal polyps in his 20s. 3. Appendectomy ALLERGIES No drug allergies. MEDICATIONS 1. Vancomycin 2. Cefepime 3. Doxycycline OBJECTIVE: Vital Signs Date Time Temp Pulse Resp B/P Pulse Ox O2 Delivery O2 Flow Rate FiO2 10/30/16 12:25 97 21 10/30/16 08:00 96.4 138 20 139/75 98 10/30/16 04:26 95 10/30/16 04:00 96.9 109 18 115/55 98 10/30/16 00:00 114 10/30/16 00:00 96.2 75 19 124/56 97 10/29/16 20:00 89 10/29/16 20:00 97.6 74 19 113/75 99 10/29/16 17:00 98.4 82 20 117/53 98 10/29/16 16:44 96.6 99 20 160/70 96 10/29/16 16:33 96.0 84 21 125/55 100 10/29/16 13:15 98.3 80 20 95/54 99 10/29/16 10/29/16 10/30/16 15:00 23:00 07:00 Intake Total 240 ml 1609 ml 1083 ml Output Total 100 ml 100 ml Balance 240 ml 1509 ml 983 ml Intake Oral 240 ml 750 ml 240 ml IV Total 200 ml 843 ml Packed Cells 659 ml Output Urine Total 100 ml 100 ml # Voids 3 Laboratory Tests Test 10/29/16 10/30/16 04:00 04:30 White Blood Count 0.2 TH/MM3 0.3 TH/MM3 Red Blood Count 1.59 MIL/MM3 2.11 MIL/MM3 Hemoglobin 5.9 GM/DL 7.2 GM/DL Hematocrit 16.6 % 20.5 % Mean Corpuscular Volume 104.2 FL 97.4 FL Mean Corpuscular Hemoglobin 36.9 PG 34.3 PG Mean Corpuscular Hemoglobin 35.5 % 35.2 % Concent Red Cell Distribution Width 18.6 % 19.9 % Platelet Count 14 TH/MM3 10 TH/MM3 Mean Platelet Volume 7.5 FL 8.1 FL Neutrophils (%) (Auto) 85.1 % % Lymphocytes (%) (Auto) 13.4 % % Monocytes (%) (Auto) 0.5 % % Eosinophils (%) (Auto) 0.3 % % Basophils (%) (Auto) 0.7 % % Neutrophils # (Auto) 0.2 TH/MM3 TH/MM3 Lymphocytes # (Auto) 0.0 TH/MM3 TH/MM3 Monocytes # (Auto) 0.0 TH/MM3 TH/MM3 Eosinophils # (Auto) 0.0 TH/MM3 TH/MM3 Basophils # (Auto) 0.0 TH/MM3 TH/MM3 CBC Comment AUTO DIFF AUTO DIFF Differential Total Cells 25 50 Counted Neutrophils % (Manual) 68 % 78 % Band Neutrophils % 12 % 14 % Lymphocytes % 8 % 6 % Neutrophils # (Manual) 0.2 TH/MM3 0.3 TH/MM3 Metamyelocytes 12 % Differential Comment FINAL DIFF FINAL DIFF MANUAL MANUAL Platelet Estimate RARE RARE Platelet Morphology Comment NORMAL NORMAL Ovalocytes 1+ 1+ Keratocytes OCC Eosinophils % 2 % Laboratory Tests Test 10/29/16 10/30/16 04:00 04:30 Sodium Level 137 MEQ/L 132 MEQ/L Potassium Level 4.5 MEQ/L 4.6 MEQ/L Chloride Level 103 MEQ/L 101 MEQ/L Carbon Dioxide Level 19.5 MEQ/L 20.4 MEQ/L Anion Gap 15 MEQ/L 11 MEQ/L Blood Urea Nitrogen 52 MG/DL 78 MG/DL Creatinine 1.76 MG/DL 3.72 MG/DL Estimat Glomerular Filtration 38 ML/MIN 16 ML/MIN Rate Random Glucose 242 MG/DL 223 MG/DL Calcium Level 7.1 MG/DL 7.0 MG/DL Protein Corrected Calcium 8.6 MG/DL 8.2 MG/DL Magnesium Level 2.3 MG/DL Total Bilirubin 0.4 MG/DL 0.8 MG/DL Aspartate Amino Transf 351 U/L 91 U/L (AST/SGOT) Alanine Aminotransferase 35 U/L 46 U/L (ALT/SGPT) Alkaline Phosphatase 42 U/L 61 U/L Lactate Dehydrogenase 5626 U/L B-Type Natriuretic Peptide 287 PG/ML Total Protein 4.4 GM/DL 4.8 GM/DL Albumin 2.5 GM/DL 2.4 GM/DL Uric Acid 8.0 MG/DL Phosphorus Level 8.7 MG/DL Microbiology Date/Time Procedure Status Source Growth 10/29/16 09:20 Aerobic Blood Culture - Preliminary Resulted Blood Other NO GROWTH IN 1 DAY 10/29/16 09:20 Anaerobic Blood Culture - Preliminary Resulted Blood Other NO GROWTH IN 1 DAY 10/29/16 09:20 Urine Culture - Preliminary Resulted Urine Random Urine NO GROWTH IN 24 HOURS. 10/29/16 11:49 Aerobic Blood Culture - Preliminary Resulted Blood Peripheral NO GROWTH IN 1 DAY 10/29/16 11:49 Anaerobic Blood Culture - Preliminary Resulted Blood Peripheral NO GROWTH IN 1 DAY IMAGING: Renal Ultrasound 10/30/16 0000 Signed Impressions: Service Date/Time: October 08:13 - CONCLUSION: Unremarkable exam with no evidence of hydronephrosis. Wander Hodges MD Chest X-Ray 10/29/16 0000 Signed Impressions: Service Date/Time: Saturday, October 29, 2016 08:10 - CONCLUSION: No acute disease. Dion Marmolejo Jr., MD PHYSICAL EXAMINATION GENERAL: No acute distress. HEAD, EYES, EARS, NOSE, AND THROAT: The head is atraumatic. Extraocular movements grossly intact. Pupils reactive to light. No icterus. Oropharynx moist mucosa without lesions. NECK: Supple without adenopathy or swelling. LUNGS: Clear. HEART: Irregular S1 and S2 without audible murmurs, rubs or gallops. ABDOMEN: Bowel sounds present, obese, soft, and nontender. No masses palpable. EXTREMITIES: No clubbing, cyanosis or edema. SKIN: No diffuse rash. NEUROLOGIC: No gross focal findings. PSYCHIATRIC: Calm and cooperative. IMPRESSION 1. Acute myelogenous leukemia with pancytopenia. Patient status post undergoing induction chemotherapy. 2. Febrile neutropenia. 3. Acute renal failure. RECOMMENDATIONS 1. Continue cefepime - adjust dose. 2. Continue vancomycin with pharmacy to monitor the dosage since the patient's renal function has declined. 3. Continue doxycycline. 4. Monitor temperature. 5. Monitor cultures. 6. Monitor clinical status. Gene Hewitt MD Oct 30, 2016 12:55
--- NOTE | 2016-10-30 14:32 | PD.CONS ---
HPI Consult Requested By Primary Care Physician Hallie Norris M.D. History of Present Illness 71 y/o M with acute lymphoblastic leukemia recently started on chemotherapy with vincristin, doxarubicin, and Rituximab and also cyclophosphamide. His stay has been complicated with PE, severe anemia and thrombocytopenia, pancytopenia, FAIZA requiring urgent dialysis and afib wiht RVR. Cardiology has been consulted for evaluation and management for new onset asymptomatic Atrial Fibrillation with RVR. Review of Systems Consitutional: DENIES: Fatigue, Fever, Chills, Weight gain, Weight loss Eyes: DENIES: Amaurosis Fugax, Change in vision HEENT: DENIES: Lightheadedness, Change in hearing Respiratory: DENIES: See HPI, Cough, Snoring, Shortness of breath, Wheezing, Sputum production Cardiovascular: DENIES: See HPI, Chest pain, Palpitations, Syncope, Tachycardia Gastrointestinal: DENIES: Nausea, Vomiting, Change in bowel habits, Reflux, Bloody stools, Melena Genitourinary: DENIES: Urinary incontinence, Difficulty voiding Integumentary: DENIES: Rash Neurologic: DENIES: Tingling or numbness, Memory problems, Poor Balance, Stroke symptoms Musculoskeletal: DENIES: Joint pain, Muscle pain, Limited range of motion, Back pain Psychiatric: DENIES: Anxiety, Depression, Sleep disturbances Hematologic: DENIES: Bruising tendencies, Bleeding tendencies Endocrine: DENIES: Weight gain, Weight loss, Thyroid disease Past Family Social History Allergies: Coded Allergies: No Known Allergies (Unverified , 10/24/16) Past Medical History Rheumatic fever Removal of vocal polyps in his 20s. Appendectomy Reported Medications Current Medications Medications (Trade) Dose Ordered Sig/Daniel Route Start Time Stop Time Status Last Admin (NS Flush) 2 ml UNSCH PRN IV FLUSH 10/24/16 01:45 10/28/16 03:42 (NS Flush) 2 ml BID IV FLUSH 10/24/16 09:00 10/29/16 20:54 (Narcan Inj) 0.4 mg UNSCH PRN IV 10/24/16 01:45 (Vibratab) 100 mg Q12HR PO 10/24/16 09:00 10/30/16 08:53 (NS Flush) DAILY IVF 10/25/16 09:00 10/26/16 08:01 (Heparin Central Flush) DAILY IV FLUSH 10/25/16 09:00 10/26/16 08:01 (NS Flush) 2 ml UNSCH PRN IVF 10/24/16 13:15 (Lactinex) 1 tab TID PO 10/24/16 18:00 10/30/16 12:33 (Vasotec Inj) 1.25 mg Q8H PRN IV PUSH 10/25/16 15:45 (Benadryl) 25 mg Q4H PRN PO 10/25/16 18:00 10/30/16 12:34 Allopurinol 300 mg 300 mg BID PO 10/27/16 09:00 10/30/16 08:53 (Vancomycin Consult Pharmacy) 0 ml @ 0 mls/hr UNSCH OTHER 10/29/16 12:45 Miscellaneous 1 ea 1 ea UNSCH PRN OTHER 10/30/16 06:45 10/30/16 06:36 (NS 1000 ml Inj) 1,000 ml @ 42 mls/hr [id number] IV 10/30/16 08:30 10/30/16 08:52 (Bumex Inj) 2 mg BID@,18 IV PUSH 10/30/16 09:00 10/30/16 08:53 Sevelamer Carbonate 1600 mg 1,600 mg TIDAC PO 10/30/16 12:00 10/30/16 12:36 (NS 1000 ml Inj) 1,000 ml @ 0 mls/hr Q0M PRN IV 10/30/16 08:47 Heparin Sodium (Porcine) 8000 units 8,000 units UNSCH PRN IVF 10/30/16 09:00 Sodium Chloride 1,000 ml @ 200 mls/hr Q5H PRN IV 10/30/16 08:47 (NS 1000 ml Inj) 1,000 ml @ 0 mls/hr Q0M PRN IV 10/30/16 08:47 (Mannitol Inj) 12.5 gm UNSCH PRN IV 10/30/16 09:00 (Albumin 25% Inj) 25 gm UNSCH PRN IV 10/30/16 09:00 (NS Flush) 5 ml UNSCH PRN IV FLUSH 10/30/16 09:00 (Heparin Inj) UNSCH PRN .XX 10/30/16 09:00 (Gentamicin (Dialysis) Inj) 20 mg UNSCH PRN IV 10/30/16 09:00 (Zofran Inj) 4 mg UNSCH PRN IV 10/30/16 09:00 (Tylenol) 650 mg UNSCH PRN PO 10/30/16 09:00 (Benadryl) 25 mg UNSCH PRN PO 10/30/16 09:00 (Nitrostat Sl) 0.4 mg UNSCH PRN SL 10/30/16 09:00 (Catapres) 0.1 mg UNSCH PRN PO 10/30/16 09:00 Gelatin 1 foam 1 foam UNSCH PRN TOP 10/30/16 09:00 (NS 250 ml Inj) 250 ml @ 15 mls/hr ONCE ONCE IV 10/30/16 09:15 10/31/16 01:54 (Tylenol) 650 mg Q4H PRN PO 10/30/16 11:00 10/30/16 15:01 10/30/16 12:34 Diphenhydramine HCl 25 mg 25 mg Q4H PRN PO 10/30/16 11:00 10/30/16 15:01 (Custom Consult Pharmacy) 0 ml @ 0 mls/hr UNSCH OTHER 10/30/16 09:15 (Cardizem) 30 mg Q6HR PO 10/30/16 12:00 (NS Flush) UNSCH PRN IVF 10/30/16 11:45 Heparin Sodium (Porcine) UNSCH PRN IV FLUSH 10/30/16 11:45 (Maxipime Inj/NS Inj) 100 ml @ 200 mls/hr Q24H IV 10/31/16 12:00 Active Ordered Medications Current Medications Medications (Trade) Dose Ordered Sig/Daniel Route Start Time Stop Time Status Last Admin (NS Flush) 2 ml UNSCH PRN IV FLUSH 10/24/16 01:45 10/28/16 03:42 (NS Flush) 2 ml BID IV FLUSH 10/24/16 09:00 10/29/16 20:54 (Narcan Inj) 0.4 mg UNSCH PRN IV 10/24/16 01:45 (Vibratab) 100 mg Q12HR PO 10/24/16 09:00 10/30/16 08:53 (NS Flush) DAILY IVF 10/25/16 09:00 10/26/16 08:01 (Heparin Central Flush) DAILY IV FLUSH 10/25/16 09:00 10/26/16 08:01 (NS Flush) 2 ml UNSCH PRN IVF 10/24/16 13:15 (Lactinex) 1 tab TID PO 10/24/16 18:00 10/30/16 12:33 (Vasotec Inj) 1.25 mg Q8H PRN IV PUSH 10/25/16 15:45 (Benadryl) 25 mg Q4H PRN PO 10/25/16 18:00 10/30/16 12:34 Allopurinol 300 mg 300 mg BID PO 10/27/16 09:00 10/30/16 08:53 (Vancomycin Consult Pharmacy) 0 ml @ 0 mls/hr UNSCH OTHER 10/29/16 12:45 Miscellaneous 1 ea 1 ea UNSCH PRN OTHER 10/30/16 06:45 10/30/16 06:36 (NS 1000 ml Inj) 1,000 ml @ 42 mls/hr [id number] IV 10/30/16 08:30 10/30/16 08:52 (Bumex Inj) 2 mg BID@,18 IV PUSH 10/30/16 09:00 10/30/16 08:53 Sevelamer Carbonate 1600 mg 1,600 mg TIDAC PO 10/30/16 12:00 10/30/16 12:36 (NS 1000 ml Inj) 1,000 ml @ 0 mls/hr Q0M PRN IV 10/30/16 08:47 Heparin Sodium (Porcine) 8000 units 8,000 units UNSCH PRN IVF 10/30/16 09:00 Sodium Chloride 1,000 ml @ 200 mls/hr Q5H PRN IV 10/30/16 08:47 (NS 1000 ml Inj) 1,000 ml @ 0 mls/hr Q0M PRN IV 10/30/16 08:47 (Mannitol Inj) 12.5 gm UNSCH PRN IV 10/30/16 09:00 (Albumin 25% Inj) 25 gm UNSCH PRN IV 10/30/16 09:00 (NS Flush) 5 ml UNSCH PRN IV FLUSH 10/30/16 09:00 (Heparin Inj) UNSCH PRN .XX 10/30/16 09:00 (Gentamicin (Dialysis) Inj) 20 mg UNSCH PRN IV 10/30/16 09:00 (Zofran Inj) 4 mg UNSCH PRN IV 10/30/16 09:00 (Tylenol) 650 mg UNSCH PRN PO 10/30/16 09:00 (Benadryl) 25 mg UNSCH PRN PO 10/30/16 09:00 (Nitrostat Sl) 0.4 mg UNSCH PRN SL 10/30/16 09:00 (Catapres) 0.1 mg UNSCH PRN PO 10/30/16 09:00 Gelatin 1 foam 1 foam UNSCH PRN TOP 10/30/16 09:00 (NS 250 ml Inj) 250 ml @ 15 mls/hr ONCE ONCE IV 10/30/16 09:15 10/31/16 01:54 (Tylenol) 650 mg Q4H PRN PO 10/30/16 11:00 10/30/16 15:01 10/30/16 12:34 Diphenhydramine HCl 25 mg 25 mg Q4H PRN PO 10/30/16 11:00 10/30/16 15:01 (Custom Consult Pharmacy) 0 ml @ 0 mls/hr UNSCH OTHER 10/30/16 09:15 (Cardizem) 30 mg Q6HR PO 10/30/16 12:00 (NS Flush) UNSCH PRN IVF 10/30/16 11:45 Heparin Sodium (Porcine) UNSCH PRN IV FLUSH 10/30/16 11:45 (Maxipime Inj/NS Inj) 100 ml @ 200 mls/hr Q24H IV 10/31/16 12:00 Social History No tobacco No alcohol No illicit drug use Physical Exam Vital Signs Vital Signs Date Time Temp Pulse Resp B/P Pulse Ox O2 Delivery O2 Flow Rate FiO2 10/30/16 12:25 97 21 10/30/16 12:15 96.6 120 20 163/85 98 10/30/16 08:00 96.4 138 20 139/75 98 10/30/16 04:26 95 10/30/16 04:00 96.9 109 18 115/55 98 10/30/16 00:00 114 10/30/16 00:00 96.2 75 19 124/56 97 10/29/16 20:00 89 10/29/16 20:00 97.6 74 19 113/75 99 10/29/16 17:00 98.4 82 20 117/53 98 10/29/16 16:44 96.6 99 20 160/70 96 10/29/16 16:33 96.0 84 21 125/55 100 Physical Exam GENERAL: Well-nourished, well-developed patient. SKIN: Warm and dry. HEAD: Normocephalic. EYES: No scleral icterus. No injection or drainage. NECK: Supple, trachea midline. No JVD or lymphadenopathy. CARDIOVASCULAR: Regular rate and rhythm without murmurs, gallops, or rubs. RESPIRATORY: Breath sounds equal bilaterally. No accessory muscle use. GASTROINTESTINAL: Abdomen soft, non-tender, nondistended. EXTREMITIES: No cyanosis, or ++edema. NEUROLOGICAL: Awake, alert, and oriented x 3. Non-focal. Laboratory Laboratory Tests Test 10/30/16 10/30/16 04:30 09:06 White Blood Count 0.3 Red Blood Count 2.11 Hemoglobin 7.2 Hematocrit 20.5 Mean Corpuscular Volume 97.4 Mean Corpuscular Hemoglobin 34.3 Mean Corpuscular Hemoglobin 35.2 Concent Red Cell Distribution Width 19.9 Platelet Count 10 Mean Platelet Volume 8.1 Neutrophils (%) (Auto) Lymphocytes (%) (Auto) Monocytes (%) (Auto) Eosinophils (%) (Auto) Basophils (%) (Auto) Neutrophils # (Auto) Lymphocytes # (Auto) Monocytes # (Auto) Eosinophils # (Auto) Basophils # (Auto) CBC Comment AUTO DIFF Differential Total Cells 50 Counted Neutrophils % (Manual) 78 Band Neutrophils % 14 Lymphocytes % 6 Eosinophils % 2 Neutrophils # (Manual) 0.3 Differential Comment FINAL DIFF MANUAL Platelet Estimate RARE Platelet Morphology Comment NORMAL Ovalocytes 1+ Sodium Level 132 Potassium Level 4.6 Chloride Level 101 Carbon Dioxide Level 20.4 Anion Gap 11 Blood Urea Nitrogen 78 Creatinine 3.72 Estimat Glomerular Filtration 16 Rate Random Glucose 223 Uric Acid 8.0 Calcium Level 7.0 Protein Corrected Calcium 8.2 Phosphorus Level 8.7 Total Bilirubin 0.8 Aspartate Amino Transf 91 (AST/SGOT) Alanine Aminotransferase 46 (ALT/SGPT) Alkaline Phosphatase 61 Total Protein 4.8 Albumin 2.4 Blood Bank Comment Date/Time Procedure Status Source Growth 10/29/16 11:49 Aerobic Blood Culture - Preliminary Resulted Blood Peripheral NO GROWTH IN 1 DAY 10/29/16 11:49 Anaerobic Blood Culture - Preliminary Resulted Blood Peripheral NO GROWTH IN 1 DAY 10/29/16 09:20 Urine Culture - Preliminary Resulted Urine Random Urine NO GROWTH IN 24 HOURS. Result Diagram: 10/30/16 0430 10/30/16 0430 Imaging Last Impressions Catheter Placement X-Ray 10/30/16 0826 Signed Impressions: Service Date/Time: October 11:04 - CONCLUSION: Uncomplicated Vas-Cath placement as above. Matt Lassiter MD Renal Ultrasound 10/30/16 0000 Signed Impressions: Service Date/Time: October 08:13 - CONCLUSION: Unremarkable exam with no evidence of hydronephrosis. Wander Hodges MD Chest X-Ray 10/29/16 0000 Signed Impressions: Service Date/Time: Saturday, October 29, 2016 08:10 - CONCLUSION: No acute disease. Dion Marmolejo Jr., MD Lumbar Puncture Fluoroscopy 10/27/16 0000 Signed Impressions: Service Date/Time: Thursday, October 27, 2016 12:19 - CONCLUSION: Uncomplicated fluoroscopically guided lumbar puncture with chemotherapy injection. Matt Lassiter MD PICC Line Insertion 10/24/16 0000 Signed Impressions: Service Date/Time: Monday, October 24, 2016 12:01 - CONCLUSION: 1. Uncomplicated central venous Power PICC line placement. 2. The PICC line can be used immediately. Serafin Saba MD Bone Biopsy CT 10/24/16 0000 Signed Impressions: Service Date/Time: Monday, October 24, 2016 16:09 - CONCLUSION: 1. Uncomplicated CT guided bone marrow aspirate. 2. Uncomplicated CT guided bone marrow biopsy. Balwinder Swenson MD Abdomen/Pelvis CT 10/24/16 0000 Signed Impressions: Service Date/Time: Monday, October 24, 2016 15:57 - CONCLUSION: 1. Hepatic steatosis. 2. No evidence of metastatic disease or suspicious mass. 3. Bilateral inguinal hernias. Triston Espinoza MD Assessment and Plan Problem List: (1) Atrial fibrillation Assessment and Plan: Afib resolved, now NSR on Telemetry. Not candidate for OAC given thrombocytopenia and anemia. Recent ECHO 10/19/2016 EF 60% Recommendations: 1. Rate control with Cardizem 30mg PO QID 2. Repeat 2Decho to reassess LV function (2) Thrombocytopenia (3) Pancytopenia (4) Pneumonia (5) Acute lymphocytic leukemia (6) Hypertension (7) Hyperphosphatemia (8) Hypocalcemia (9) Acute kidney injury Problem Qualifiers (1) Atrial fibrillation: Qualified Code: I48.0 - Paroxysmal atrial fibrillation (2) Pneumonia: Qualified Code: J18.9 - Pneumonia of right lung due to infectious organism, unspecified part of lung Jace Thornton MD Oct 30, 2016 14:32
[2016-10-30] MEDS: GENTAMICIN SULFATE (DIALYSIS USE ONLY) 20 MG/2 ML VIAL IV PRN (17:22)
[2016-10-30] MEDS: SODIUM CHLOR 0.9% 1000 ML INJ 1,000 ML IV PRN (17:22)
--- NOTE | 2016-10-30 19:06 | ECHRPT ---
Indication: Coronary Arthersclerosis CONCLUSIONS Normal left ventricular size. Wall thickness is normal. The left ventricular systolic function is normal with an estimated ejection fraction in the range of 55-60%. No regional wall motion abnormalities are present. The right ventricle was not well visualized. The aortic valve is not well visualized. Appears to be normal. The tricuspid valve is not well visualized. The pulmonary valve is not well visualized. The inferior vena cava was not well visualized. BP: 163 / 85 HR: 120 Rhythm: Sinus MEASUREMENTS (Male / Female) Normal Values Technical Quality:Very technically difficult study 2D ECHO LV Diastolic Diameter PLAX 4.7 cm 4.2 - 5.9 / 3.9 - 5.3 cm LV Systolic Diameter PLAX 3.3 cm IVS Diastolic Thickness 1.2 cm 0.6 - 1.0 / 0.6 - 0.9 cm LVPW Diastolic Thickness 1.2 cm 0.6 - 1.0 / 0.6 - 0.9 cm LV Relative Wall Thickness 0.5 RV Internal Dim ED PLAX 2.3 cm LA Systolic Diameter LX 4.0 cm 3.0 - 4.0 / 2.7 - 3.8 cm M-MODE Aortic Root Diameter MM 2.8 cm LA Systolic Diameter MM 3.8 cm LA Ao Ratio MM 1.4 AV Cusp Separation MM 2.2 cm DOPPLER AV Peak Velocity 136.0 cm/s AV Peak Gradient 7.4 mmHg LVOT Peak Velocity 112.0 cm/s LVOT Peak Gradient 5.0 mmHg MV Area PHT 4.4 cm Mitral E Point Velocity 116.0 cm/s Mitral A Point Velocity 99.2 cm/s Mitral E to A Ratio 1.2 PV Peak Velocity 122.0 cm/s PV Peak Gradient 6.0 mmHg FINDINGS LEFT VENTRICLE Normal left ventricular size. Wall thickness is normal. The left ventricular systolic function is normal with an estimated ejection fraction in the range of 55-60%. No regional wall motion abnormalities are present. RIGHT VENTRICLE The right ventricle was not well visualized. LEFT ATRIUM The left atrial size is normal. RIGHT ATRIUM The right atrial size is normal. ATRIAL SEPTUM Normal atrial septal thickness without atrial level shunting by limited color doppler interrogation. AORTA The aortic root and proximal ascending aorta are normal in size on limited imaging. MITRAL VALVE Structurally normal mitral valve. No mitral valve stenosis or regurgitation. AORTIC VALVE The aortic valve is not well visualized. Appears to be normal. TRICUSPID VALVE The tricuspid valve is not well visualized. PULMONARY VALVE The pulmonary valve is not well visualized. VESSELS The inferior vena cava was not well visualized. PERICARDIUM No pericardial effusion. Jace Thornton MD (Electronically Signed) Final Date:30 October 2016 19:05
[2016-10-31] VITALS (8 sets, daily range): BP systolic 122–157; BP diastolic 57–77; PULSE 66–85; RESP 18–21; TEMP 96.3–98.1; O2SAT 97–98
[2016-10-31] MEDS: DILTIAZEM HCL 30 MG TAB PO SCH ×4 (05:08→23:43)
[2016-10-31 05:33] LABS: MEAN CELL VOLUME 98.1 FL (80.0-100.0); MEAN CORPUSCULAR HEMOGLOBIN 34.3 PG (27.0-34.0); MEAN CORPUSCULAR HGB CONC 34.9 % (32.0-36.0); PLATELET COUNT 24 TH/MM3 (150-450); RED BLOOD COUNT 2.13 MIL/MM3 (4.50-5.90); RED CELL DISTRIBUTION WIDTH 19.2 % (11.6-17.2); WHITE BLOOD COUNT 0.3 TH/MM3 (4.0-11.0)
[2016-10-31 05:43] LABS: HEMATOCRIT 20.9 % (39.0-51.0)
[2016-10-31 05:46] LABS: HEMO FLAGS AUTO DIFF
[2016-10-31 05:57] LABS: ANION GAP 14 MEQ/L (5-15); AST (GOT) 30 U/L (15-37); BICARBONATE 21.1 MEQ/L (21.0-32.0); BLOOD UREA NITROGEN 81 MG/DL (7-18); CHLORIDE 100 MEQ/L (98-107); GLOMERULAR FILTRATION RATE 13 ML/MIN (>89); MAGNESIUM 2.3 MG/DL (1.5-2.5); POTASSIUM 4.8 MEQ/L (3.5-5.1); SODIUM (NA) 135 MEQ/L (136-145)
[2016-10-31 06:00] LABS: ALKALINE PHOSPHATASE 44 U/L (45-117); ALT (GPT) 36 U/L (12-78); TOTAL BILIRUBIN ADULT 0.7 MG/DL (0.2-1.0)
--- NOTE | 2016-10-31 07:31 | PD.ONC.PN ---
Subjective Subjective Remarks Patient seen and examined, vital signs, labs, medications, microbiology and [employer] operations consultant reports reviewed. Subjectively the patient reports his breathing feels more comfortable this morning, he tells me he has hiccups which seemed to not go away. He also feels generally swollen. He denies fevers or chills, denies overt bleeding. Patient underwent right IJ Vas-Cath placement yesterday and was started on hemodialysis. Objective Data Date Time Temp Pulse Resp B/P Pulse Ox O2 Delivery O2 Flow Rate FiO2 10/31/16 04:20 85 10/31/16 04:00 96.8 80 18 157/77 98 10/31/16 00:00 66 10/30/16 23:14 97.2 73 15 127/61 98 10/30/16 21:30 140/80 10/30/16 20:45 79 10/30/16 20:00 96.4 91 20 144/100 95 10/30/16 16:00 96.2 80 18 161/71 98 10/30/16 12:25 97 21 10/30/16 12:15 96.6 120 20 163/85 98 10/30/16 08:00 96.4 138 20 139/75 98 10/31/16 10/31/16 10/31/16 07:00 15:00 23:00 Intake Total 810 ml Output Total 700 ml Balance 110 ml Result Diagram: 10/31/16 0500 10/31/16 0500 Laboratory Results Laboratory Tests Test 10/30/16 10/31/16 09:06 05:00 Blood Bank Comment White Blood Count 0.3 TH/MM3 Red Blood Count 2.13 MIL/MM3 Hemoglobin 7.3 GM/DL Hematocrit 20.9 % Mean Corpuscular Volume 98.1 FL Mean Corpuscular Hemoglobin 34.3 PG Mean Corpuscular Hemoglobin 34.9 % Concent Red Cell Distribution Width 19.2 % Platelet Count 24 TH/MM3 Mean Platelet Volume 8.1 FL Neutrophils (%) (Auto) % Lymphocytes (%) (Auto) % Monocytes (%) (Auto) % Eosinophils (%) (Auto) % Basophils (%) (Auto) % Neutrophils # (Auto) TH/MM3 Lymphocytes # (Auto) TH/MM3 Monocytes # (Auto) TH/MM3 Eosinophils # (Auto) TH/MM3 Basophils # (Auto) TH/MM3 CBC Comment AUTO DIFF Sodium Level 135 MEQ/L Potassium Level 4.8 MEQ/L Chloride Level 100 MEQ/L Carbon Dioxide Level 21.1 MEQ/L Anion Gap 14 MEQ/L Blood Urea Nitrogen 81 MG/DL Creatinine 4.54 MG/DL Estimat Glomerular Filtration 13 ML/MIN Rate Random Glucose 200 MG/DL Calcium Level 7.6 MG/DL Phosphorus Level 8.9 MG/DL Magnesium Level 2.3 MG/DL Total Bilirubin 0.7 MG/DL Aspartate Amino Transf 30 U/L (AST/SGOT) Alanine Aminotransferase 36 U/L (ALT/SGPT) Alkaline Phosphatase 44 U/L Total Protein 5.7 GM/DL Albumin 2.7 GM/DL Random Vancomycin Level 26.1 COMMENT Culture Results Microbiology Date/Time Procedure Status Source Growth 10/29/16 09:20 Aerobic Blood Culture - Preliminary Resulted Blood Other NO GROWTH IN 1 DAY 10/29/16 09:20 Anaerobic Blood Culture - Preliminary Resulted Blood Other NO GROWTH IN 1 DAY 10/29/16 09:20 Urine Culture - Preliminary Resulted Urine Random Urine NO GROWTH IN 24 HOURS. 10/29/16 11:49 Aerobic Blood Culture - Preliminary Resulted Blood Peripheral NO GROWTH IN 1 DAY 10/29/16 11:49 Anaerobic Blood Culture - Preliminary Resulted Blood Peripheral NO GROWTH IN 1 DAY Imaging Studies Last 24 hours Impressions Catheter Placement X-Ray 10/30/16825 Signed Impressions: Service Date/Time: October 11:04 - CONCLUSION: Uncomplicated Vas-Cath placement as above. Matt Lassiter MD Administered Medications Medications (Trade) Dose Ordered Sig/Daniel Route PRN Reason Start Time Stop Time Status Last Admin Dose Admin Sodium Chloride (NS Flush) 2 ml UNSCH PRN IV FLUSH FLUSH AFTER USING IV ACCESS 10/24/16 01:45 10/28/16 03:42 Sodium Chloride (NS Flush) 2 ml BID IV FLUSH 10/24/16 09:00 10/30/16 20:40 Doxycycline Hyclate (Vibratab) 100 mg Q12HR PO 10/24/16 09:00 10/30/16 20:40 Sodium Chloride (NS Flush) DAILY IVF 10/25/16 09:00 10/26/16 08:01 Heparin Sodium (Porcine) (Heparin Central Flush) DAILY IV FLUSH 10/25/16 09:00 10/26/16 08:01 Lactobacillus Acidophilus (Lactinex) 1 tab TID PO 10/24/16 18:00 10/30/16 16:56 Diphenhydramine HCl (Benadryl) 25 mg Q4H PRN PO WHILE BLOOD INFUSING 10/25/16 18:00 10/30/16 12:34 Allopurinol (Zyloprim) 300 mg BID PO 10/27/16 09:00 10/30/16 20:40 Miscellaneous 1 ea 1 ea UNSCH PRN OTHER SEE LABEL COMMENTS 10/30/16 06:45 10/30/16 06:36 Sodium Chloride (NS 1000 ml Inj) 1,000 ml @ 42 mls/hr [id number] IV 10/30/16 08:30 10/30/16 08:52 Bumetanide (Bumex Inj) 2 mg BID@,18 IV PUSH 10/30/16 09:00 10/30/16 16:56 Sevelamer Carbonate 1600 mg 1,600 mg TIDAC PO 10/30/16 12:00 10/30/16 16:57 Sodium Chloride (NS 1000 ml Inj) 1,000 ml @ 0 mls/hr Q0M PRN IV For Prime & Rinse Back 10/30/16 08:47 10/30/16 17:22 Gentamicin Sulfate (Gentamicin (Dialysis) Inj) 20 mg UNSCH PRN IV WITH DIALYSIS 10/30/16 09:00 10/30/16 17:22 Diltiazem HCl (Cardizem) 30 mg Q6HR PO 10/30/16 12:00 10/31/16 05:08 Objective Remarks GENERAL APPEARANCE: Mr. Chou is an elderly male, he is tall and heavy-set, he has a very pleasant disposition and is in no acute distress. HEENT: Head atraumatic, normocephalic, conjunctivae are mildly pale. Sclerae are anicteric, EOMI, PERRLA, oral exam no pharyngeal erythema. NECK: No palpable cervical or supraclavicular lymphadenopathy. Right IJ Vas-Cath placement in the interim. RESPIRATORY: Good air movement bilaterally. No added breath sounds. CARDIOVASCULAR: Regular rate and rhythm, S1-S2. No obvious murmurs, gallops. ABDOMEN: Obese belly, soft, nontender, nondistended, no palpable organ enlargement, specifically no hepatosplenomegaly. EXTREMITIES: Lower extremities, positive for pretibial edema. No calf tenderness. PICC line in right arm. JAZ/LYMPH EXAMINATION: No cervical lymphadenopathy, no axillary lymphadenopathy and no inguinal lymphadenopathy. LAWN CARE SPECIALIST: Exam without any abnormal findings specifically no motor or sensory deficits. Assessment/Plan Problem List: (1) Acute lymphocytic leukemia Status: Acute Plan: -- Awaiting bone marrow biopsy results -- Noted to have metamyelocytes and myelocytes in circulation -- CT abdomen shows no diffuse lymphadenopathy -- CT angiography of the chest showed no mediastinal lymphadenopathy -- Hepatitis panel negative Hx/Workup: Patient began to notice approximately 2 weeks ago that he is having breathlessness with exertion. This is concerning to him as he is usually able to walk approximately 3-4 miles with no problems. His PCP advised that the go to the hospital for evaluation. 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 He was transferred to [place] for further workup and inpatient induction chemotherapy. Assessment 71-year-old male admitted for workup and induction chemotherapy for a diagnosis of B-cell acute lymphocytic leukemia Plan 1. Started chemotherapy with Rituxan + hyper-CVAD on 10/26/2016; given the CD 20 positivity of the B-cell ALL on Flow cytometry on bone marrow aspiration specimen. Await results of the [place] chromosome to determine if the patient may benefit from tyrosine kinase inhibitors. He is increasingly cytopenic, had neutropenic, anemic and from cytopenic. Neupogen started a dose of 480 g subcutaneous daily on 10/31/2016. 2. TLS; with renal failure, elevated Uric acid, LDH and Phos. Started on hemodialysis on 10/30/2016, second treatment will be on 10/31/2016. Rasburicase to be dosed after hemodialysis today. 3. Continue supportive transfusions; daily CBCs. PLT transfusion ordered today prior to Dialysis cath placement. 4. Daily CBC, CMP's ordered. 5. Isolated Temps earlier this Week: On cefepime and vancomycin. Cultures drawn and negative todate. Appreciated ID input. 6. AFib with RVR: Now rate controlled, appreciate cardiology input. Continue ongoing care. Sukhwinder Rice MD Oct 31, 2016 07:31
[2016-10-31] MEDS: SEVELAMER CARBONATE 800 MG TAB PO SCH ×3 (08:00→17:30)
[2016-10-31 08:20] LABS: BANDS 15 % (0-6); NEUTROPHIL # MANUAL DIFF 0.3 TH/MM3 (1.8-7.7); OVALOCYTES 1+ (NORMAL); PLATELET ESTIMATE SMEAR LOW (NORMAL); PLATELET MORPHOLOGY NORMAL (NORMAL); POLYS (SEG NEUTROPHILS) 75 % (16-70); SCAN/DIFF FINAL DIFF MANUAL; WBC DIFF SAMPLE 20
[2016-10-31] MEDS: SODIUM CHLORIDE 0.9% FLUSH 10 ML FLUSH IVF SCH (09:00)
[2016-10-31] MEDS: SODIUM CHLORIDE 0.9% FLUSH 10 ML FLUSH IV FLUSH SCH ×2 (09:00→20:56)
[2016-10-31] MEDS: BUMETANIDE INJ 1 MG/4 ML VIAL IV PUSH SCH ×2 (09:00→17:31)
[2016-10-31] MEDS: LACTOBACILLUS ACIDOPHILUS TAB PO SCH ×3 (09:00→17:30)
--- NOTE | 2016-10-31 10:42 | HHI.NPPN ---
Subjective Renal Failure: Acute Interval History Seen in route to dialysis. He looks well, is eating without nausea/vomiting. Excellent urine output. Creatinine is higher today. (Nava Cabral) Objective Data Data 10/30/16 10/31/16 19:00 07:00 Intake Total 1897 ml 1015 ml Output Total 3200 ml 1250 ml Balance -1303 ml -235 ml Intake Oral 480 ml 560 ml IV Total 1417 ml 455 ml Output Urine Total 1200 ml 1250 ml Hemodialysis 2000 ml # Voids 3 # Bowel Movements 2 0 Vital Signs Date Time Temp Pulse Resp B/P Pulse Ox O2 Delivery O2 Flow Rate FiO2 10/31/16 08:00 96.3 83 20 123/58 97 10/31/16 04:20 85 10/31/16 04:00 96.8 80 18 157/77 98 10/31/16 00:00 66 10/30/16 23:14 97.2 73 15 127/61 98 10/30/16 21:30 140/80 10/30/16 20:45 79 10/30/16 20:00 96.4 91 20 144/100 95 10/30/16 16:00 96.2 80 18 161/71 98 10/30/16 12:25 97 21 10/30/16 12:15 96.6 120 20 163/85 98 (Nava Cabral) -: 10/31/16 0500 10/31/16 0500 Imaging Last 72 hours Impressions Catheter Placement X-Ray 10/30/16 0826 Signed Impressions: Service Date/Time: October 11:04 - CONCLUSION: Uncomplicated Vas-Cath placement as above. Matt Lassiter MD Renal Ultrasound 10/30/16 0000 Signed Impressions: Service Date/Time: October 08:13 - CONCLUSION: Unremarkable exam with no evidence of hydronephrosis. Wander Hodges MD Chest X-Ray 10/29/16 0000 Signed Impressions: Service Date/Time: Saturday, October 29, 2016 08:10 - CONCLUSION: No acute disease. Dion Marmolejo Jr., MD Tubes & Lines: Vas-Cath (Nava Cabral) Physical Exam General Appearance: Well Developed, Well Nourished, No Acute Distress, Comfortable ( Nava CabralP) Eyes Eye Exam: Pupils Equal (Nava CabralP) Throat Throat Exam: Oral Mucosa [place] & Moist (Nava Cabral SSIS ETL DEVELOPER) Neck Neck Exam: Neck Supple (Nava Cabral SSIS ETL DEVELOPER) Pulmonary Resp Exam: Clear Bilaterally, Breath Sounds Equal (Nava Cabral. SSIS ETL DEVELOPER) Cardiology CV Exam: Normal Sinus Rhythm, Good Perfusion (Nava CabralP) Gastrointestinal/Abdomen GI Exam: Soft, Non-Tender, Bowel Sounds Present (Nava Cabral) Musculoskeletal MS Exam: Joints Intact, Normal Gait, Normal Tone (Nava Cabral) Integumentary Skin Exam: Clear, Warm, Dry, Intact (Nava Cabral SSIS ETL DEVELOPER) Extremeties Extremities Exam: No Edema, Pedal Pulses Palpable (Nava Cabral SSIS ETL DEVELOPER) Neurologic Neuro Exam: Alert, Awake, Oriented, Speech Clear, Moving All Extremities ( Nava Cabral) Psychiatric Psych Exam: Appropriate Responses (Nava Cabral) Assessment/Plan Discussed Condition With: Patient Assessment Summary: FAIZA/Acute Renal Failure, Hypertension Electrolyte Assessment: Hypocalcemia, Metabolic Acidosis Problem List: (1) Acute kidney injury Plan: He has normal renal funciton at baseline, FAIZA from Tumor lysis syndrome (with hypocalcemia, hyperphosphatemia, and hyperuricemia) creatinine is higher today, however his urine output has improved s/p vascath placement 10/30 He was started on hemodialysis yesterday, tolerated well, 2L UF to have dialysis again today Continue Bumex, follow urine output Avoid bicarb drip, it is not recommended in this situation as it can promote deposition of phosphate containing stones. repeat renal panel in AM Avoid nephrotoxic agents. (2) Acute lymphocytic leukemia Plan: Oncology following, managing his chemo regimen appreciate further recommendations.Receive (3) Hyperphosphatemia Plan: He is on Renvela, follow phosphorus level (4) Hypocalcemia Plan: Avoid IV calcium administration. Continue phosphate binders to treat hyperphosphatemia (5) Pancytopenia Plan: ID following he was febrile earlier on Doxycycline, cefepime , vancomycin monitor drug levels when appropriate (Nava Cabral) Plan patient was seen and examined. Agree with above assessment and plan. He received Rasburicase today. (Clay Galicia MD) Nava Cabral Oct 31, 2016 10:42 Clay Galicia MD Oct 31, 2016 20:39
[2016-10-31] MEDS ORDERED: SODIUM CHLORIDE 0.9% IV ONE (12:00)
[2016-10-31] MEDS ORDERED: RASBURICASE IV ONE (12:00)
[2016-10-31] MEDS ORDERED: CEFEPIME INJ 1,000 MG in SODIUM CHLORIDE 0.9% INJ 100 ML IV SCH (12:00)
[2016-10-31] MEDS: GENTAMICIN SULFATE (DIALYSIS USE ONLY) 20 MG/2 ML VIAL IV PRN (12:44)
[2016-10-31] MEDS: ALLOPURINOL 300 MG TAB PO SCH ×2 (13:56→20:55)
[2016-10-31] MEDS: DOXYCYCLINE HYCLATE 100 MG TAB PO SCH ×2 (13:57→20:55)
[2016-10-31] MEDS: CEFEPIME 1000 MG/NS 100 ML IV SCH ×2 (13:57)
[2016-10-31] MEDS: FILGRASTIM 480 MCG/1.6 ML VIAL SQ SCH (15:08)
--- NOTE | 2016-10-31 15:11 | HHI.PR ---
Subjective Remarks Follow-up renal failure, pneumonia, pancytopenia. The patient states that he feels a little better today. He had dialysis again today. Denies chest pain, dyspnea, nausea, vomiting. Does have some lower extremity edema. Objective Vitals Vital Signs Date Time Temp Pulse Resp B/P Pulse Ox O2 Delivery O2 Flow Rate FiO2 10/31/16 08:00 96.3 83 20 123/58 97 10/31/16 08:00 79 10/31/16 04:20 85 10/31/16 04:00 96.8 80 18 157/77 98 10/31/16 00:00 66 10/30/16 23:14 97.2 73 15 127/61 98 10/30/16 21:30 140/80 10/30/16 20:45 79 10/30/16 20:00 96.4 91 20 144/100 95 10/30/16 16:00 96.2 80 18 161/71 98 I/O 10/30/16 10/30/16 10/30/16 10/31/16 10/31/16 10/31/16 07:00 15:00 23:00 07:00 15:00 23:00 Intake Total 1083 ml 480 ml 1622 ml 810 ml Output Total 100 ml 400 ml 3350 ml 700 ml 3000 ml Balance 983 ml 80 ml -1728 ml 110 ml -3000 ml Intake Oral 240 ml 480 ml 560 ml IV Total 843 ml 1622 ml 250 ml Output Urine Total 100 ml 400 ml 1350 ml 700 ml Hemodialysis 2000 ml 3000 ml # Voids 3 # Bowel Movements 2 0 Result Diagram: 10/31/16 0500 10/31/16 0500 Imaging Last Impressions Catheter Placement X-Ray 10/30/16 0826 Signed Impressions: Service Date/Time: October 11:04 - CONCLUSION: Uncomplicated Vas-Cath placement as above. Matt Lassiter MD Renal Ultrasound 10/30/16 0000 Signed Impressions: Service Date/Time: October 08:13 - CONCLUSION: Unremarkable exam with no evidence of hydronephrosis. Wander Hodges MD Chest X-Ray 10/29/16 0000 Signed Impressions: Service Date/Time: Saturday, October 29, 2016 08:10 - CONCLUSION: No acute disease. Dion Marmolejo Jr., MD Lumbar Puncture Fluoroscopy 10/27/16 0000 Signed Impressions: Service Date/Time: Thursday, October 27, 2016 12:19 - CONCLUSION: Uncomplicated fluoroscopically guided lumbar puncture with chemotherapy injection. Matt Lassiter MD PICC Line Insertion 10/24/16 0000 Signed Impressions: Service Date/Time: Monday, October 24, 2016 12:01 - CONCLUSION: 1. Uncomplicated central venous Power PICC line placement. 2. The PICC line can be used immediately. Serafin Saba MD Bone Biopsy CT 10/24/16 0000 Signed Impressions: Service Date/Time: Monday, October 24, 2016 16:09 - CONCLUSION: 1. Uncomplicated CT guided bone marrow aspirate. 2. Uncomplicated CT guided bone marrow biopsy. Balwinder Swenson MD Abdomen/Pelvis CT 10/24/16 0000 Signed Impressions: Service Date/Time: Monday, October 24, 2016 15:57 - CONCLUSION: 1. Hepatic steatosis. 2. No evidence of metastatic disease or suspicious mass. 3. Bilateral inguinal hernias. Triston Espinoza MD Objective Remarks General: Obese male in no acute distress. Heart: Regular rate and rhythm. No murmur. Lungs: Clear to auscultation bilaterally. No wheezes, rales, or rhonchi. Breathing is nonlabored. Abdomen: Soft, nontender, nondistended. Extremities: 1+ bilateral lower extremity edema. Psych: Alert and oriented. Procedures 10/24/16 PICC line placement 10/24/16 bone marrow biopsy 10/30/16 Vas-Cath placement Urinary Catheter: No Vascular Central Line Catheter: Yes Assessment to: Continue Date of Insertion: Oct 24, 2016 Line: PICC A/P Problem List: (1) Pancytopenia ICD Code: D61.818 Status: Acute (2) Pneumonia ICD Code: J18.9 Status: Acute (3) Acute lymphocytic leukemia ICD Code: C91.00 Status: Acute (4) Hypertension ICD Code: I10 Status: Chronic Assessment and Plan 1. ALL: Appreciate oncology recommendations. Continue chemotherapy per oncology. 2. Pneumonia: Continue cefepime, doxycycline. DuoNeb as needed. Stable on room air. 3. Hypertension: Continue amlodipine. Vasotec IV as needed. Blood pressure control improved. 4. DVT prophylaxis: SCDKRISTEN hardwick. 5. Tumor lysis syndrome: Patient has developed acute renal failure, uric acidemia, and elevated phosphorus. Potassium is still within normal limits. Appreciate oncology, nephrology management. 6. Atrial fibrillation with RVR: Appreciate cardiology recommendations. Rate is well controlled. 2-D echocardiogram shows ejection fraction 55-60%. Continue oral Cardizem. Problem Qualifiers (1) Pneumonia: Qualified Code: J18.9 - Pneumonia of right lung due to infectious organism, unspecified part of lung Hugo Dumont MD Oct 31, 2016 15:11
--- NOTE | 2016-10-31 19:35 | HHI.IDPN ---
Note Infectious Disease Note Patient feels okay. Had dialysis today. Denies chills. Afebrile. One blood culture with staph epi. Patient with AML receiving chemotherapy. PAST MEDICAL HISTORY 1. Rheumatic fever 2. Removal of vocal polyps in his 20s. 3. Appendectomy ALLERGIES No drug allergies. MEDICATIONS 1. Vancomycin 2. Cefepime 3. Doxycycline OBJECTIVE: Vital Signs Date Time Temp Pulse Resp B/P Pulse Ox O2 Delivery O2 Flow Rate FiO2 10/31/16 17:00 82 10/31/16 16:00 98.1 84 20 122/60 97 10/31/16 08:00 96.3 83 20 123/58 97 10/31/16 08:00 79 10/31/16 04:20 85 10/31/16 04:00 96.8 80 18 157/77 98 10/31/16 00:00 66 10/30/16 23:14 97.2 73 15 127/61 98 10/30/16 21:30 140/80 10/30/16 20:45 79 10/30/16 20:00 96.4 91 20 144/100 95 10/30/16 10/30/16 10/31/16 14:59 22:59 06:59 Intake Total 480 ml 1622 ml 810 ml Output Total 400 ml 3350 ml 700 ml Balance 80 ml -1728 ml 110 ml Intake Oral 480 ml 560 ml IV Total 1622 ml 250 ml Output Urine Total 400 ml 1350 ml 700 ml Hemodialysis 2000 ml # Voids 3 # Bowel Movements 2 0 Laboratory Tests Test 10/30/16 10/31/16 04:30 05:00 White Blood Count 0.3 TH/MM3 0.3 TH/MM3 Red Blood Count 2.11 MIL/MM3 2.13 MIL/MM3 Hemoglobin 7.2 GM/DL 7.3 GM/DL Hematocrit 20.5 % 20.9 % Mean Corpuscular Volume 97.4 FL 98.1 FL Mean Corpuscular Hemoglobin 34.3 PG 34.3 PG Mean Corpuscular Hemoglobin 35.2 % 34.9 % Concent Red Cell Distribution Width 19.9 % 19.2 % Platelet Count 10 TH/MM3 24 TH/MM3 Mean Platelet Volume 8.1 FL 8.1 FL Neutrophils (%) (Auto) % % Lymphocytes (%) (Auto) % % Monocytes (%) (Auto) % % Eosinophils (%) (Auto) % % Basophils (%) (Auto) % % Neutrophils # (Auto) TH/MM3 TH/MM3 Lymphocytes # (Auto) TH/MM3 TH/MM3 Monocytes # (Auto) TH/MM3 TH/MM3 Eosinophils # (Auto) TH/MM3 TH/MM3 Basophils # (Auto) TH/MM3 TH/MM3 CBC Comment AUTO DIFF AUTO DIFF Differential Total Cells 50 20 Counted Neutrophils % (Manual) 78 % 75 % Band Neutrophils % 14 % 15 % Lymphocytes % 6 % 10 % Eosinophils % 2 % Neutrophils # (Manual) 0.3 TH/MM3 0.3 TH/MM3 Differential Comment FINAL DIFF FINAL DIFF MANUAL MANUAL Platelet Estimate RARE LOW Platelet Morphology Comment NORMAL NORMAL Ovalocytes 1+ 1+ Laboratory Tests Test 10/30/16 10/31/16 04:30 05:00 Sodium Level 132 MEQ/L 135 MEQ/L Potassium Level 4.6 MEQ/L 4.8 MEQ/L Chloride Level 101 MEQ/L 100 MEQ/L Carbon Dioxide Level 20.4 MEQ/L 21.1 MEQ/L Anion Gap 11 MEQ/L 14 MEQ/L Blood Urea Nitrogen 78 MG/DL 81 MG/DL Creatinine 3.72 MG/DL 4.54 MG/DL Estimat Glomerular Filtration 16 ML/MIN 13 ML/MIN Rate Random Glucose 223 MG/DL 200 MG/DL Uric Acid 8.0 MG/DL Calcium Level 7.0 MG/DL 7.6 MG/DL Protein Corrected Calcium 8.2 MG/DL Phosphorus Level 8.7 MG/DL 8.9 MG/DL Total Bilirubin 0.8 MG/DL 0.7 MG/DL Aspartate Amino Transf 91 U/L 30 U/L (AST/SGOT) Alanine Aminotransferase 46 U/L 36 U/L (ALT/SGPT) Alkaline Phosphatase 61 U/L 44 U/L Total Protein 4.8 GM/DL 5.7 GM/DL Albumin 2.4 GM/DL 2.7 GM/DL Magnesium Level 2.3 MG/DL Microbiology Date/Time Procedure Status Source Growth 10/29/16 09:20 Aerobic Blood Culture - Preliminary Resulted Blood Other Staphylococcus Epidermidis 10/29/16 09:20 Anaerobic Blood Culture - Preliminary Resulted Blood Other NO GROWTH IN 2 DAYS 10/29/16 09:20 Urine Culture - Final Complete Urine Random Urine NO GROWTH IN 48 HOURS. 10/29/16 11:49 Aerobic Blood Culture - Preliminary Resulted Blood Peripheral NO GROWTH IN 2 DAYS 10/29/16 11:49 Anaerobic Blood Culture - Preliminary Resulted Blood Peripheral NO GROWTH IN 2 DAYS IMAGING: Renal Ultrasound 10/30/16 0000 Signed Impressions: Service Date/Time: October 08:13 - CONCLUSION: Unremarkable exam with no evidence of hydronephrosis. Wander Hodges MD Chest X-Ray 10/29/16 0000 Signed Impressions: Service Date/Time: Saturday, October 29, 2016 08:10 - CONCLUSION: No acute disease. Dion Marmolejo Jr., MD PHYSICAL EXAMINATION GENERAL: No acute distress. HEAD, EYES, EARS, NOSE, AND THROAT: Pupils reactive to light. No icterus. Oropharynx moist mucosa without lesions. NECK: Supple without adenopathy or swelling. LUNGS: Clear breath sounds. HEART: Irregular S1 and S2 without audible murmurs, rubs or gallops. ABDOMEN: Bowel sounds present, obese, soft, and nontender. EXTREMITIES: No clubbing, cyanosis or edema. SKIN: No diffuse rash. NEUROLOGIC: No gross focal findings. PSYCHIATRIC: Calm and cooperative. IMPRESSION 1. Acute myelogenous leukemia with pancytopenia. Patient undergoing induction chemotherapy. 2. Febrile neutropenia. 3. Acute renal failure. 4. The One blood culture is contaminant. RECOMMENDATIONS 1. Continue cefepime. 2. Continue vancomycin with pharmacy to monitor the levels and dosage since the patient's renal function has declined. 3. Continue doxycycline. 4. Monitor temperature. 5. Monitor cultures. Reculture if fever. 6. Monitor clinical status. Gene Hewitt MD Oct 31, 2016 19:35
[2016-11-01] VITALS (9 sets, daily range): BP systolic 126–146; BP diastolic 57–82; PULSE 77–90; RESP 18–23; TEMP 96.9–98.8; O2SAT 96–99
[2016-11-01] MEDS: ONDANSETRON HCL 4 MG/2 ML VIAL IV PRN ×2 (04:22→10:46)
[2016-11-01 05:40] LABS: ANION GAP 14 MEQ/L (5-15); BICARBONATE 24.3 MEQ/L (21.0-32.0); BLOOD UREA NITROGEN 74 MG/DL (7-18); CHLORIDE 100 MEQ/L (98-107); GLOMERULAR FILTRATION RATE 12 ML/MIN (>89); MEAN CORPUSCULAR HGB CONC 34.7 % (32.0-36.0); POTASSIUM 4.3 MEQ/L (3.5-5.1); RED BLOOD COUNT 1.91 MIL/MM3 (4.50-5.90); RED CELL DISTRIBUTION WIDTH 18.9 % (11.6-17.2); SODIUM (NA) 138 MEQ/L (136-145); URIC ACID LESS THAN 0.2 MG/DL (2.6-7.2); WHITE BLOOD COUNT 0.1 TH/MM3 (4.0-11.0)
[2016-11-01 05:41] LABS: LDH SERUM 714 U/L (87-241)
[2016-11-01 05:55] LABS: HEMO FLAGS AUTO DIFF
[2016-11-01 05:56] LABS: HEMATOCRIT 18.7 % (39.0-51.0); PLATELET COUNT 11 TH/MM3 (150-450)
[2016-11-01] MEDS: DILTIAZEM HCL 30 MG TAB PO SCH ×3 (06:04→18:09)
[2016-11-01] MEDS ORDERED: FUROSEMIDE 20 MG/2 ML VIAL IV ONE (08:00)
[2016-11-01] MEDS ORDERED: diphenhydrAMINE HCL 25 MG CAP PO PRN (08:00)
[2016-11-01] MEDS ORDERED: SODIUM CHLOR 0.9% 250 ML INJ 250 ML IV ONE (08:00)
[2016-11-01] MEDS ORDERED: ACETAMINOPHEN 325 MG TAB PO PRN (08:00)
[2016-11-01 08:13] LABS: NEUTROPHIL # MANUAL DIFF 0.1 TH/MM3 (1.8-7.7); POLYS (SEG NEUTROPHILS) 85 % (16-70); WBC DIFF SAMPLE 20
[2016-11-01 08:14] LABS: PLATELET ESTIMATE SMEAR RARE (NORMAL); PLATELET MORPHOLOGY NORMAL (NORMAL); SCAN/DIFF FINAL DIFF MANUAL
[2016-11-01] MEDS ORDERED: CYTARABINE INJ 100 MG in SYRINGE/BAG 1 EA IT SCH (09:00)
[2016-11-01] MEDS: SODIUM CHLORIDE 0.9% FLUSH 10 ML FLUSH IV FLUSH SCH ×2 (10:47→21:00)
[2016-11-01] MEDS: DOXYCYCLINE HYCLATE 100 MG TAB PO SCH ×2 (10:47→22:12)
[2016-11-01] MEDS: BUMETANIDE INJ 1 MG/4 ML VIAL IV PUSH SCH ×2 (10:47→18:11)
[2016-11-01] MEDS: SEVELAMER CARBONATE 800 MG TAB PO SCH ×3 (10:47→18:11)
[2016-11-01] MEDS: ALLOPURINOL 300 MG TAB PO SCH (10:47)
[2016-11-01] MEDS: LACTOBACILLUS ACIDOPHILUS TAB PO SCH ×3 (10:48→18:09)
[2016-11-01] MEDS: SODIUM CHLORIDE 0.9% FLUSH 10 ML FLUSH IVF SCH (10:52)
--- NOTE | 2016-11-01 11:41 | PD.ONC.PN ---
Subjective Subjective Remarks Afebrile overnight. Had a tiny bit of blood tinged sputum this morning. Has not yet had pRBC and platelet transfusions. Tolerated dialysis yesterday. Objective Data Date Time Temp Pulse Resp B/P Pulse Ox O2 Delivery O2 Flow Rate FiO2 11/01/16 09:30 97.6 82 20 131/82 98 11/01/16 04:00 97.8 81 23 143/60 98 11/01/16 00:00 97.5 77 22 133/57 99 10/31/16 21:00 70 10/31/16 20:00 97.6 82 21 126/57 98 10/31/16 17:00 82 10/31/16 16:00 98.1 84 20 122/60 97 11/01/16 11/01/16 11/01/16 07:00 15:00 23:00 Intake Total 984 ml Output Total 300 ml Balance 684 ml Result Diagram: 11/01/16 0426 11/01/16 0426 Laboratory Results Laboratory Tests Test 11/01/16 04:26 White Blood Count 0.1 TH/MM3 Red Blood Count 1.91 MIL/MM3 Hemoglobin 6.5 GM/DL Hematocrit 18.7 % Mean Corpuscular Volume 98.0 FL Mean Corpuscular Hemoglobin 34.0 PG Mean Corpuscular Hemoglobin 34.7 % Concent Red Cell Distribution Width 18.9 % Platelet Count 11 TH/MM3 Mean Platelet Volume 7.4 FL Neutrophils (%) (Auto) % Lymphocytes (%) (Auto) % Monocytes (%) (Auto) % Eosinophils (%) (Auto) % Basophils (%) (Auto) % Neutrophils # (Auto) TH/MM3 Lymphocytes # (Auto) TH/MM3 Monocytes # (Auto) TH/MM3 Eosinophils # (Auto) TH/MM3 Basophils # (Auto) TH/MM3 CBC Comment AUTO DIFF Differential Total Cells 20 Counted Neutrophils % (Manual) 85 % Lymphocytes % 15 % Neutrophils # (Manual) 0.1 TH/MM3 Differential Comment FINAL DIFF MANUAL Platelet Estimate RARE Platelet Morphology Comment NORMAL Sodium Level 138 MEQ/L Potassium Level 4.3 MEQ/L Chloride Level 100 MEQ/L Carbon Dioxide Level 24.3 MEQ/L Anion Gap 14 MEQ/L Blood Urea Nitrogen 74 MG/DL Creatinine 4.74 MG/DL Estimat Glomerular Filtration 12 ML/MIN Rate Random Glucose 138 MG/DL Uric Acid LESS THAN 0.2 MG/DL Calcium Level 7.7 MG/DL Lactate Dehydrogenase 714 U/L Random Vancomycin Level 21.5 COMMENT Culture Results Microbiology Date/Time Procedure Status Source Growth 10/29/16 11:49 Aerobic Blood Culture - Preliminary Resulted Blood Peripheral NO GROWTH IN 3 DAYS 10/29/16 11:49 Anaerobic Blood Culture - Preliminary Resulted Blood Peripheral NO GROWTH IN 3 DAYS Administered Medications Medications (Trade) Dose Ordered Sig/Daniel Route PRN Reason Start Time Stop Time Status Last Admin Dose Admin Sodium Chloride (NS Flush) 2 ml UNSCH PRN IV FLUSH FLUSH AFTER USING IV ACCESS 10/24/16 01:45 10/28/16 03:42 Sodium Chloride (NS Flush) 2 ml BID IV FLUSH 10/24/16 09:00 11/01/16 10:47 Doxycycline Hyclate (Vibratab) 100 mg Q12HR PO 10/24/16 09:00 11/01/16 10:47 Sodium Chloride (NS Flush) DAILY IVF 10/25/16 09:00 11/01/16 10:52 Heparin Sodium (Porcine) (Heparin Central Flush) DAILY IV FLUSH 10/25/16 09:00 10/26/16 08:01 Lactobacillus Acidophilus (Lactinex) 1 tab TID PO 10/24/16 18:00 11/01/16 10:48 Diphenhydramine HCl (Benadryl) 25 mg Q4H PRN PO WHILE BLOOD INFUSING 10/25/16 18:00 10/30/16 12:34 Allopurinol (Zyloprim) 300 mg BID PO 10/27/16 09:00 11/01/16 10:47 Miscellaneous 1 ea 1 ea UNSCH PRN OTHER SEE LABEL COMMENTS 10/30/16 06:45 10/30/16 06:36 Sodium Chloride (NS 1000 ml Inj) 1,000 ml @ 42 mls/hr [id number] IV 10/30/16 08:30 10/30/16 08:52 Bumetanide (Bumex Inj) 2 mg BID@,18 IV PUSH 10/30/16 09:00 11/01/16 10:47 Sevelamer Carbonate 1600 mg 1,600 mg TIDAC PO 10/30/16 12:00 11/01/16 10:47 Sodium Chloride (NS 1000 ml Inj) 1,000 ml @ 0 mls/hr Q0M PRN IV For Prime & Rinse Back 10/30/16 08:47 10/30/16 17:22 Gentamicin Sulfate (Gentamicin (Dialysis) Inj) 20 mg UNSCH PRN IV WITH DIALYSIS 10/30/16 09:00 10/31/16 12:44 Ondansetron HCl (Zofran Inj) 4 mg UNSCH PRN IV WITH DIALYSIS 10/30/16 09:00 11/01/16 10:46 Diltiazem HCl 30 mg 30 mg Q6HR PO 10/30/16 12:00 11/01/16 06:04 Cefepime HCl/ Sodium Chloride (Maxipime Inj/NS Inj) 100 ml @ 200 mls/hr Q24H IV 10/31/16 12:00 10/31/16 13:57 Filgrastim (Neupogen Inj) 480 mcg DAILY@14 SQ 10/31/16 14:00 10/31/16 15:08 Objective Remarks GENERAL: Elderly male upright in bed in nad. SKIN: Warm and dry. PICC line right arm. there is a 1cm abrasion that appears to be from tape, which is just adjacent to the PICC line dressing. HEAD: Normocephalic. EYES: No injection or drainage. NECK: Supple, trachea midline. CARDIOVASCULAR: Regular rate and rhythm RESPIRATORY: Breath sounds equal bilaterally. No accessory muscle use. GASTROINTESTINAL: Abdomen soft, non-tender, nondistended. EXTREMITIES: No cyanosis. mild edema bilateral lower extremities. NEUROLOGICAL: No obvious focal deficit. Awake, alert, and oriented x3. Assessment/Plan Assessment 71-year-old male admitted for workup and induction chemotherapy for a diagnosis of B-cell acute lymphocytic leukemia Plan 1. Started chemotherapy with Rituxan + hyper-CVAD on 10/26/2016; given the CD 20 positivity of the B-cell ALL on Flow cytometry on bone marrow aspiration specimen. Await results of the [place] chromosome to determine if the patient may benefit from tyrosine kinase inhibitors. He is increasingly cytopenic, had neutropenic, anemic and from cytopenic. Neupogen started a dose of 480 g subcutaneous daily on 10/31/2016. Remains afebrile. Neutrophil count= 100. will obtain CXR for blood tinged sputum. Very small amount. suspect either PNA or insignificant bleeding d/t low platelets. 2. TLS; with renal failure, elevated Uric acid, LDH and Phos. Started on hemodialysis on 10/30/2016, second treatment on 10/31/2016. Rasburicase given . will renally dose allopurinol. uric acid 0.2 today. LDH improved. phosphorus pending (on Renvela) 3. Continue supportive transfusions; daily CBCs. 1 unit pRBC and 1 unit platelets (irradiated ordered this AM) 4. Isolated Temps earlier this Week: On cefepime, vancomycin and Doxycycline. one cx + s. epidermis (likely contaminant). check CXR. bactroban to open abrasion right arm. 5. AFib with RVR: Now rate controlled, appreciate cardiology input. 6. start Protonix for GI prophylaxis Continue ongoing care. Attending Statement The exam, history, and the medical decision-making described in the above note were completed with the assistance of the mid-level provider. I reviewed and agree with the findings presented. I attest that I had a [id number] encounter with the patient on the same day, and personally performed and documented my assessment and findings in the medical record. Ava Akhtar Nov 01, 2016 11:41 Cristhian Bond MD Nov 01, 2016 18:14
[2016-11-01] MEDS: CEFEPIME 1000 MG/NS 100 ML IV SCH ×2 (12:12)
--- NOTE | 2016-11-01 12:56 | HHI.NPPN ---
Subjective Renal Failure: Acute Additional Remarks No acute complaints Objective Data Data 10/31/16 11/01/16 19:00 07:00 Intake Total 1200 ml 1466 ml Output Total 3550 ml 900 ml Balance -2350 ml 566 ml Intake Oral 1200 ml 722 ml IV Total 744 ml Output Urine Total 550 ml 900 ml Hemodialysis 3000 ml # Bowel Movements 2 Vital Signs Date Time Temp Pulse Resp B/P Pulse Ox O2 Delivery O2 Flow Rate FiO2 11/01/16 12:00 96.9 82 18 135/63 98 11/01/16 09:30 97.6 82 20 131/82 98 11/01/16 04:00 97.8 81 23 143/60 98 11/01/16 00:00 97.5 77 22 133/57 99 10/31/16 21:00 70 10/31/16 20:00 97.6 82 21 126/57 98 10/31/16 17:00 82 10/31/16 16:00 98.1 84 20 122/60 97 -: 11/01/16 0426 11/01/16 0426 Tubes & Lines: Vas-Cath Physical Exam General Appearance: Well Developed, Well Nourished, No Acute Distress, Comfortable Eyes Eye Exam: Pupils Equal Throat Throat Exam: Oral Mucosa [place] & Moist Neck Neck Exam: Neck Supple Pulmonary Resp Exam: Clear Bilaterally, Breath Sounds Equal Cardiology CV Exam: Normal Sinus Rhythm, Good Perfusion Gastrointestinal/Abdomen GI Exam: Soft, Non-Tender, Bowel Sounds Present Musculoskeletal MS Exam: Joints Intact, Normal Gait, Normal Tone Integumentary Skin Exam: Clear, Warm, Dry, Intact Extremeties Extremities Exam: No Edema, Pedal Pulses Palpable Neurologic Neuro Exam: Alert, Awake, Oriented, Speech Clear, Moving All Extremities Psychiatric Psych Exam: Appropriate Responses Assessment/Plan Discussed Condition With: Patient Assessment Summary: FAIZA/Acute Renal Failure, Hypertension Electrolyte Assessment: Hypocalcemia, Metabolic Acidosis Problem List: (1) Acute kidney injury Plan: He has normal renal function at baseline, FAIZA from Tumor lysis syndrome (with hypocalcemia, hyperphosphatemia, and hyperuricemia) Received rasburicase On renvela s/p vascath placement 10/30 He was started on hemodialysis 10/31, had HD 11/01. Volume status and electrolytes stable. Continue Bumex, follow urine output - 1.4L / 24 hours Will hold HD today, plan next HD Thursday as needed. Good UOP now. Follow K, Phos, Ca Avoid bicarb drip, it is not recommended in this situation as it can promote deposition of phosphate containing stones. repeat renal panel in AM Avoid nephrotoxic agents. (2) Acute lymphocytic leukemia Plan: Oncology following, managing his chemo regimen appreciate further recommendations.Receive (3) Hyperphosphatemia Plan: He is on Renvela, follow phosphorus level (4) Hypocalcemia Plan: Avoid IV calcium administration. Continue phosphate binders to treat hyperphosphatemia (5) Pancytopenia Plan: ID following he was febrile earlier on Doxycycline, cefepime , vancomycin monitor drug levels when appropriate Matt Hills MD Nov 01, 2016 12:56
--- NOTE | 2016-11-01 13:55 | HHI.PR ---
Subjective Remarks No acute events overnight. Afebrile, vital signs stable. Patient states he is feeling fatigued this morning. Objective Vitals Vital Signs Date Time Temp Pulse Resp B/P Pulse Ox O2 Delivery O2 Flow Rate FiO2 11/01/16 12:00 96.9 82 18 135/63 98 11/01/16 09:30 97.6 82 20 131/82 98 11/01/16 04:00 97.8 81 23 143/60 98 11/01/16 00:00 97.5 77 22 133/57 99 10/31/16 21:00 70 10/31/16 20:00 97.6 82 21 126/57 98 10/31/16 17:00 82 10/31/16 16:00 98.1 84 20 122/60 97 I/O 10/31/16 10/31/16 10/31/16 11/01/16 11/01/16 11/01/16 07:00 15:00 23:00 07:00 15:00 23:00 Intake Total 810 ml 1682 ml 984 ml Output Total 700 ml 3000 ml 1150 ml 300 ml Balance 110 ml -3000 ml 532 ml 684 ml Intake Oral 560 ml 1682 ml 240 ml IV Total 250 ml 744 ml Output Urine Total 700 ml 1150 ml 300 ml Hemodialysis 3000 ml # Voids 3 # Bowel Movements 0 2 Result Diagram: 11/01/1642511/01/16425 Objective Remarks General: Obese male in no acute distress. Heart: Regular rate and rhythm. No murmur. Lungs: Clear to auscultation bilaterally. No wheezes, rales, or rhonchi. Breathing is nonlabored. Abdomen: Soft, nontender, nondistended. Extremities: 1+ bilateral lower extremity edema. Psych: Alert and oriented. Procedures 10/24/16 PICC line placement 10/24/16 bone marrow biopsy 10/30/16 Vas-Cath placement Date of Insertion: Oct 24, 2016 Line: PICC A/P Problem List: (1) Pancytopenia ICD Code: D61.818 Status: Acute (2) Pneumonia ICD Code: J18.9 Status: Acute (3) Acute lymphocytic leukemia ICD Code: C91.00 Status: Acute (4) Hypertension ICD Code: I10 Status: Chronic Assessment and Plan 1. ALL: Appreciate oncology recommendations. Continue chemotherapy per oncology. 2. Pneumonia: Continue cefepime, vanc, doxycycline. DuoNeb as needed. Stable on room air. Repeat chest x-ray today for blood-tinged sputum. 3. Pancytopenia: Hemoglobin today 6.5. Transfuse 1 unit packed red blood cells per oncology. 4. Hypertension: Continue amlodipine. Vasotec IV as needed. Blood pressure control improved. 5. DVT prophylaxis: Jurgen, KRISTEN sauer. 6. Tumor lysis syndrome: Patient has developed acute renal failure, uric acidemia, and elevated phosphorus. Potassium is still within normal limits. Appreciate oncology, nephrology management. 7. Atrial fibrillation with RVR: Appreciate cardiology recommendations. Rate is well controlled. 2-D echocardiogram shows ejection fraction 55-60%. Continue oral Cardizem. Discharge Planning Pending nephrology, oncology recommendations Problem Qualifiers (1) Pneumonia: Qualified Code: J18.9 - Pneumonia of right lung due to infectious organism, unspecified part of lung Sheri Troy MD R3 Nov 01, 2016 13:55
--- NOTE | 2016-11-01 14:20 | RADRPT ---
EXAM DATE/TIME: 11/01/2016 14:05 [facility] COMPARISON: CHEST SINGLE AP, October 29, 2016, 8:10. INDICATIONS : Hemoptysis. MEDICAL HISTORY : Leukemia. Dyspnea. SURGICAL HISTORY : Appendectomy. ENCOUNTER: Subsequent ACUITY: 1 week PAIN SCORE: 0/10 LOCATION: Bilateral chest FINDINGS: PA and lateral views of the chest demonstrate bibasilar densities. Right jugular line and right-sided PICC line are unchanged. Heart normal in size. Osseous structures are intact. CONCLUSION: Bibasilar densities likely atelectasis. Neal Castro MD on November 01, 2016 at 14:18 Board Certified Radiologist. This report was verified electronically.
[2016-11-01] MEDS: FILGRASTIM 480 MCG/1.6 ML VIAL SQ SCH (15:34)
[2016-11-01] MEDS: diphenhydrAMINE HCL 25 MG CAP PO PRN ×2 (18:09→22:11)
[2016-11-01] MEDS ORDERED: PANTOPRAZOLE SOD 20 MG DELAYED RELEASE TAB PO ONE (19:45)
[2016-11-01] MEDS: MUPIROCIN 2% OINT 22 GM TUBE TOPICAL SCH (21:00)
[2016-11-01] MEDS: ACETAMINOPHEN 325 MG TAB PO PRN (22:11)
[2016-11-02] VITALS (10 sets, daily range): BP systolic 128–151; BP diastolic 57–70; PULSE 73–87; RESP 16–22; TEMP 96.4–98.4; O2SAT 95–99
[2016-11-02] MEDS: DILTIAZEM HCL 30 MG TAB PO SCH ×4 (00:35→18:22)
[2016-11-02 05:36] LABS: MEAN CELL VOLUME 95.1 FL (80.0-100.0); MEAN CORPUSCULAR HEMOGLOBIN 33.1 PG (27.0-34.0); MEAN CORPUSCULAR HGB CONC 34.8 % (32.0-36.0); RED BLOOD COUNT 1.86 MIL/MM3 (4.50-5.90); RED CELL DISTRIBUTION WIDTH 21.1 % (11.6-17.2); WHITE BLOOD COUNT 0.1 TH/MM3 (4.0-11.0)
[2016-11-02 05:48] LABS: HEMO FLAGS AUTO DIFF
[2016-11-02 05:49] LABS: HEMATOCRIT 17.7 % (39.0-51.0)
[2016-11-02 05:50] LABS: PLATELET COUNT 19 TH/MM3 (150-450)
[2016-11-02 06:26] LABS: ALKALINE PHOSPHATASE 36 U/L (45-117); ALT (GPT) 24 U/L (12-78); ANION GAP 11 MEQ/L (5-15); AST (GOT) 13 U/L (15-37); BICARBONATE 24.2 MEQ/L (21.0-32.0); BLOOD UREA NITROGEN 89 MG/DL (7-18); CHLORIDE 100 MEQ/L (98-107); GLOMERULAR FILTRATION RATE 9 ML/MIN (>89); LDH SERUM 512 U/L (87-241); MAGNESIUM 2.3 MG/DL (1.5-2.5); POTASSIUM 4.3 MEQ/L (3.5-5.1); SODIUM (NA) 135 MEQ/L (136-145); TOTAL BILIRUBIN ADULT 0.7 MG/DL (0.2-1.0); URIC ACID LESS THAN 0.2 MG/DL (2.6-7.2)
[2016-11-02 07:24] LABS: WBC DIFF SAMPLE 2
[2016-11-02 07:25] LABS: PLATELET ESTIMATE SMEAR RARE (NORMAL); PLATELET MORPHOLOGY NORMAL (NORMAL)
[2016-11-02 07:26] LABS: SCAN/DIFF FINAL DIFF MANUAL
[2016-11-02] MEDS ORDERED: SODIUM CHLOR 0.9% 250 ML INJ 250 ML IV ONE (08:00)
[2016-11-02] MEDS: MUPIROCIN 2% OINT 22 GM TUBE TOPICAL SCH ×2 (09:00→21:00)
[2016-11-02] MEDS: SEVELAMER CARBONATE 800 MG TAB PO SCH ×3 (09:13→18:22)
[2016-11-02] MEDS: BUMETANIDE INJ 1 MG/4 ML VIAL IV PUSH SCH ×2 (09:13→18:22)
[2016-11-02] MEDS: LACTOBACILLUS ACIDOPHILUS TAB PO SCH ×3 (09:13→18:22)
[2016-11-02] MEDS: SODIUM CHLOR 0.9% 1000 ML INJ 1,000 ML IV SCH (09:13)
[2016-11-02] MEDS: SODIUM CHLORIDE 0.9% FLUSH 10 ML FLUSH IVF SCH (09:13)
[2016-11-02] MEDS: PANTOPRAZOLE SOD 20 MG DELAYED RELEASE TAB PO SCH (09:13)
[2016-11-02] MEDS: DOXYCYCLINE HYCLATE 100 MG TAB PO SCH ×2 (09:13→22:24)
[2016-11-02] MEDS: SODIUM CHLORIDE 0.9% FLUSH 10 ML FLUSH IV FLUSH SCH ×2 (09:13→22:27)
[2016-11-02] MEDS: ALLOPURINOL 100 MG TAB PO SCH (09:13)
[2016-11-02] MEDS: CEFEPIME 1000 MG/NS 100 ML IV SCH ×2 (11:40)
--- NOTE | 2016-11-02 13:05 | HHI.PR ---
Subjective Remarks No acute events overnight. Afebrile, vital signs stable. Patient states he continues to feel fatigued and lethargic. Transfusion pending. Shortness of breath is improving, chest x-ray yesterday with no acute findings. Objective Vitals Vital Signs Date Time Temp Pulse Resp B/P (MAP) Pulse Ox O2 Delivery O2 Flow Rate FiO2 11/02/16 07:49 98.3 87 22 129/57 (81) 97 11/02/16 04:00 96.4 76 19 137/63 (87) 99 11/02/16 01:49 98.4 81 19 142/64 (90) 97 11/01/16 23:30 20 11/01/16 23:19 97.6 80 20 132/63 (86) 96 11/01/16 23:08 98.8 81 20 145/63 (90) 97 11/01/16 21:00 81 11/01/16 20:00 97.3 83 18 126/58 (80) 98 11/01/16 16:00 96.9 90 18 146/67 (93) 98 I/O 11/01/16 11/01/16 11/01/16 11/02/16 11/02/16 11/02/16 07:00 15:00 23:00 07:00 15:00 23:00 Intake Total 984 ml 808 ml 731 ml 754 ml Output Total 300 ml 600 ml 600 ml 600 ml Balance 684 ml 208 ml 131 ml 154 ml Intake Oral 240 ml 480 ml 480 ml 240 ml IV Total 744 ml 328 ml 251 ml 514 ml Output Urine Total 300 ml 600 ml 600 ml 600 ml # Bowel Movements 3 Result Diagram: 11/02/16 0515 11/02/16 0515 Objective Remarks General: Obese male in no acute distress. Heart: Regular rate and rhythm. No murmur. Lungs: Clear to auscultation bilaterally. No wheezes, rales, or rhonchi. Breathing is nonlabored. Abdomen: Soft, nontender, nondistended. Extremities: 1+ bilateral lower extremity edema. Psych: Alert and oriented. Procedures 10/24/16 PICC line placement 10/24/16 bone marrow biopsy 10/30/16 Vas-Cath placement Date of Insertion: Oct 24, 2016 Line: PICC A/P Problem List: (1) Pancytopenia ICD Code: D61.818 - Other pancytopenia Status: Acute (2) Pneumonia ICD Code: J18.9 - Pneumonia, unspecified organism Status: Acute (3) Acute lymphocytic leukemia ICD Code: C91.00 - Acute lymphoblastic leukemia not having achieved remission Status: Acute (4) Hypertension ICD Code: I10 - Essential (primary) hypertension Status: Chronic Assessment and Plan 1. ALL: Appreciate oncology recommendations. Continue chemotherapy per oncology. 2. Pneumonia: Continue cefepime, vanc, doxycycline. DuoNeb as needed. Stable on room air. Repeat chest x-ray yesterday for blood-tinged sputum with no acute findings. 3. Pancytopenia: Hemoglobin today 6.2. Transfuse 1 unit packed red blood cells per oncology. 4. Hypertension: Continue amlodipine. Vasotec IV as needed. Blood pressure control improved. 5. DVT prophylaxis: Jurgen, KRISTEN sauer. 6. Tumor lysis syndrome: Patient has developed acute renal failure, uric acidemia, and elevated phosphorus. Potassium is still within normal limits. Appreciate oncology, nephrology management. 7. Atrial fibrillation with RVR: Appreciate cardiology recommendations. Rate is well controlled. 2-D echocardiogram shows ejection fraction 55-60%. Continue oral Cardizem. 8. Acute kidney injury: Nephrology consulted, appreciate recommendations. Creatinine today 6. Anticipate dialysis tomorrow. Discharge Planning Pending nephrology, oncology recommendations Problem Qualifiers (1) Pneumonia: Sheri Troy MD R3 Nov 02, 2016 13:05
--- NOTE | 2016-11-02 14:12 | PD.ONC.PN ---
Subjective Subjective Remarks Afebrile overnight. Patient feeling fatigued today. Tolerated blood transfusion yesterday without reaction. no further hemoptysis. urinating well. Objective Data Date Time Temp Pulse Resp B/P (MAP) Pulse Ox O2 Delivery O2 Flow Rate FiO2 11/02/16 07:49 98.3 87 22 129/57 (81) 97 11/02/16 04:00 96.4 76 19 137/63 (87) 99 11/02/16 01:49 98.4 81 19 142/64 (90) 97 11/01/16 23:30 20 11/01/16 23:19 97.6 80 20 132/63 (86) 96 11/01/16 23:08 98.8 81 20 145/63 (90) 97 11/01/16 21:00 81 11/01/16 20:00 97.3 83 18 126/58 (80) 98 11/01/16 16:00 96.9 90 18 146/67 (93) 98 11/02/16 11/02/16 11/02/16 07:00 15:00 23:00 Intake Total 754 ml Output Total 600 ml Balance 154 ml Result Diagram: 11/02/16 0515 11/02/16 0515 Laboratory Results Laboratory Tests Test 11/02/16 05:15 White Blood Count 0.1 TH/MM3 Red Blood Count 1.86 MIL/MM3 Hemoglobin 6.2 GM/DL Hematocrit 17.7 % Mean Corpuscular Volume 95.1 FL Mean Corpuscular Hemoglobin 33.1 PG Mean Corpuscular Hemoglobin Concent 34.8 % Red Cell Distribution Width 21.1 % Platelet Count 19 TH/MM3 Mean Platelet Volume 8.0 FL Neutrophils (%) (Auto) % Lymphocytes (%) (Auto) % Monocytes (%) (Auto) % Eosinophils (%) (Auto) % Basophils (%) (Auto) % Neutrophils # (Auto) TH/MM3 Lymphocytes # (Auto) TH/MM3 Monocytes # (Auto) TH/MM3 Eosinophils # (Auto) TH/MM3 Basophils # (Auto) TH/MM3 CBC Comment AUTO DIFF Differential Total Cells Counted 2 Lymphocytes % 100 % Neutrophils # (Manual) 0.0 TH/MM3 Differential Comment FINAL DIFF MANUAL Platelet Estimate RARE Platelet Morphology Comment NORMAL Blood Urea Nitrogen 89 MG/DL Creatinine 6.04 MG/DL Random Glucose 100 MG/DL Total Protein 5.0 GM/DL Albumin 2.5 GM/DL Calcium Level 7.5 MG/DL Phosphorus Level 8.4 MG/DL Magnesium Level 2.3 MG/DL Uric Acid LESS THAN 0.2 MG/DL Alkaline Phosphatase 36 U/L Aspartate Amino Transf (AST/SGOT) 13 U/L Alanine Aminotransferase (ALT/SGPT) 24 U/L Lactate Dehydrogenase 512 U/L Total Bilirubin 0.7 MG/DL Sodium Level 135 MEQ/L Potassium Level 4.3 MEQ/L Chloride Level 100 MEQ/L Carbon Dioxide Level 24.2 MEQ/L Anion Gap 11 MEQ/L Estimat Glomerular Filtration Rate 9 ML/MIN Administered Medications Medications (Trade) Dose Ordered Sig/Daniel Route PRN Reason Start Time Stop Time Status Last Admin Dose Admin Sodium Chloride (NS Flush) 2 ml UNSCH PRN IV FLUSH FLUSH AFTER USING IV ACCESS 10/24/16 01:45 10/28/16 03:42 Sodium Chloride (NS Flush) 2 ml BID IV FLUSH 10/24/16 09:00 11/01/16 10:47 Doxycycline Hyclate (Vibratab) 100 mg Q12HR PO 10/24/16 09:00 11/01/16 22:12 Sodium Chloride (NS Flush) DAILY IVF 10/25/16 09:00 11/01/16 10:52 Heparin Sodium (Porcine) (Heparin Central Flush) DAILY IV FLUSH 10/25/16 09:00 10/26/16 08:01 Lactobacillus Acidophilus (Lactinex) 1 tab TID PO 10/24/16 18:00 11/01/16 18:09 Diphenhydramine HCl (Benadryl) 25 mg Q4H PRN PO WHILE BLOOD INFUSING 10/25/16 18:00 11/01/16 22:11 Miscellaneous (Pill Splitter) 1 ea UNSCH PRN OTHER SEE LABEL COMMENTS 10/30/16 06:45 10/30/16 06:36 Sodium Chloride 1,000 ml @ 42 mls/hr [id number] IV 10/30/16 08:30 10/30/16 08:52 Bumetanide (Bumex Inj) 2 mg BID@09,18 IV PUSH 10/30/16 09:00 11/01/16 18:11 Sevelamer Carbonate (Renvela) 1,600 mg TIDAC PO 10/30/16 12:00 11/01/16 18:11 Sodium Chloride 1,000 ml @ 0 mls/hr Q0M PRN IV For Prime & Rinse Back 10/30/16 08:47 10/30/16 17:22 Gentamicin Sulfate (Gentamicin (Dialysis) Inj) 20 mg UNSCH PRN IV WITH DIALYSIS 10/30/16 09:00 10/31/16 12:44 Ondansetron HCl (Zofran Inj) 4 mg UNSCH PRN IV WITH DIALYSIS 10/30/16 09:00 11/01/16 10:46 Acetaminophen (Tylenol) 650 mg UNSCH PRN PO for headach, pain, temp > 101F 10/30/16 09:00 11/01/16 22:11 Diltiazem HCl (Cardizem) 30 mg Q6HR PO 10/30/16 12:00 11/02/16 05:14 Cefepime HCl 1000 mg/Sodium Chloride 100 ml @ 200 mls/hr Q24H IV 10/31/16 12:00 11/01/16 12:12 Filgrastim (Neupogen Inj) 480 mcg DAILY@14 SQ 10/31/16 14:00 11/01/16 15:34 Objective Remarks GENERAL: Elderly male supine in bed in nad SKIN: Warm and dry. PICC line site clean. HEAD: Normocephalic. EYES: No injection or drainage. NECK: Supple, trachea midline. CARDIOVASCULAR: Regular rate and rhythm RESPIRATORY: Breath sounds equal bilaterally. No accessory muscle use. GASTROINTESTINAL: Abdomen soft, non-tender, nondistended. EXTREMITIES: No cyanosis. moderate edema in lower extremities NEUROLOGICAL: awake and alert, normal speech. moving extremities. Assessment/Plan Assessment 71-year-old male admitted for workup and induction chemotherapy for a diagnosis of B-cell acute lymphocytic leukemia Plan 1. Started chemotherapy with Rituxan + hyper-CVAD on 10/26/2016; given the CD 20 positivity of the B-cell ALL on Flow cytometry on bone marrow aspiration specimen. Await results of the [place] chromosome to determine if the patient may benefit from tyrosine kinase inhibitors. He is increasingly cytopenic, had neutropenic, anemic and from cytopenic. Neupogen started a dose of 480 g subcutaneous daily on 10/31/2016. Remains afebrile. Neutrophil count= 0. 2. TLS; with renal failure, elevated Uric acid, LDH and Phos. Started on hemodialysis on 10/30/2016, second treatment on 10/31/2016. Rasburicase given . continue renally dosed allopurinol. phosphorus remains elevated (on Renvela) 3. Continue supportive transfusions; daily CBCs. patient requires irradiated blood products. +CMV status. give 1 unit irradiated pRBC today. transfuse slowly to avoid fluid overload in this dialysis dependent patient. 4. Isolated Temps earlier this Week: On cefepime, vancomycin (on hold d/t high trough) and Doxycycline. one cx + s. epidermis (likely contaminant). CXR from 11.01 showed only bibasilar atelectasis. 5. AFib with RVR: rate controlled, appreciate cardiology input. 6. dyspepsia: started Protonix Attending Statement The exam, history, and the medical decision-making described in the above note were completed with the assistance of the mid-level provider. I reviewed and agree with the findings presented. I attest that I had a [id number] encounter with the patient on the same day, and personally performed and documented my assessment and findings in the medical record remains severely neutropenic continue IV antibiotics Transfuse 1 unit of pRBC today Protonix for GERD supportive care yary rn overnight events reviewed Ava Akhtar Nov 02, 2016 14:12 Cristhian Bond MD Nov 02, 2016 17:46
--- NOTE | 2016-11-02 16:17 | HHI.NPPN ---
Subjective Renal Failure: Acute Additional Remarks No acute complaints, feels tired Objective Data Data 11/02/16 11/03/16 19:00 07:00 Intake Total 100 ml Balance 100 ml IV Total 100 ml Vital Signs Date Time Temp Pulse Resp B/P (MAP) Pulse Ox O2 Delivery O2 Flow Rate FiO2 11/02/16 15:36 97.2 81 16 149/67 (94) 98 11/02/16 12:45 97.3 73 16 128/60 (82) 96 11/02/16 11:50 97.3 78 16 140/65 (90) 98 11/02/16 07:49 98.3 87 22 129/57 (81) 97 11/02/16 04:00 96.4 76 19 137/63 (87) 99 11/02/16 01:49 98.4 81 19 142/64 (90) 97 11/01/16 23:30 20 11/01/16 23:19 97.6 80 20 132/63 (86) 96 11/01/16 23:08 98.8 81 20 145/63 (90) 97 11/01/16 21:00 81 11/01/16 20:00 97.3 83 18 126/58 (80) 98 -: 11/02/16 0515 11/02/16 0515 Tubes & Lines: Vas-Cath Physical Exam General Appearance: Well Developed, Well Nourished, No Acute Distress, Comfortable Eyes Eye Exam: Pupils Equal Throat Throat Exam: Oral Mucosa [place] & Moist Neck Neck Exam: Neck Supple Pulmonary Resp Exam: Clear Bilaterally, Breath Sounds Equal Cardiology CV Exam: Normal Sinus Rhythm, Good Perfusion Gastrointestinal/Abdomen GI Exam: Soft, Non-Tender, Bowel Sounds Present Musculoskeletal MS Exam: Joints Intact, Normal Gait, Normal Tone Integumentary Skin Exam: Clear, Warm, Dry, Intact Extremeties Extremities Exam: No Edema, Pedal Pulses Palpable Neurologic Neuro Exam: Alert, Awake, Oriented, Speech Clear, Moving All Extremities Psychiatric Psych Exam: Appropriate Responses Assessment/Plan Discussed Condition With: Patient Assessment Summary: FAIZA/Acute Renal Failure, Hypertension Electrolyte Assessment: Hypocalcemia, Metabolic Acidosis Problem List: (1) Acute kidney injury ICD Codes: N17.9 - Acute kidney failure, unspecified Status: Acute Plan: He has normal renal function at baseline, FAIZA from Tumor lysis syndrome (with hypocalcemia, hyperphosphatemia, and hyperuricemia) Received rasburicase On renvela s/p vascath placement 10/30 He was started on hemodialysis 10/31, had HD 11/01. Volume status and electrolytes stable today. Continues Bumex,1.8L UOP/ 24 hours Plan for HD Thursday Follow K, Phos, Ca Avoid bicarb drip, it is not recommended in this situation as it can promote deposition of phosphate containing stones. repeat renal panel in AM Avoid nephrotoxic agents. 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 Continue phosphate binders to treat hyperphosphatemia (5) Pancytopenia ICD Codes: D61.818 - Other pancytopenia Status: Acute Plan: ID following he was febrile earlier on Doxycycline, cefepime , vancomycin monitor drug levels when appropriate Matt Hills MD Nov 02, 2016 16:17
[2016-11-02] MEDS: FILGRASTIM 480 MCG/1.6 ML VIAL SQ SCH (18:29)
[2016-11-02 19:50] LABS: HEMATOCRIT 21.3 % (39.0-51.0)
[2016-11-02 19:53] LABS: REVIEW FLAG FINAL
[2016-11-02 22:41] LABS: APTT (PATIENT) 28.6 SEC (24.3-30.1); PROTHROMBIN TIME - PATIENT 11.1 SEC (9.8-11.6)
[2016-11-03] VITALS (10 sets, daily range): BP systolic 128–156; BP diastolic 61–68; PULSE 71–91; RESP 18–20; TEMP 97.2–98.3; O2SAT 97–98
[2016-11-03] MEDS: DILTIAZEM HCL 30 MG TAB PO SCH ×4 (00:22→17:12)
[2016-11-03 05:05] LABS: HEMATOCRIT 22.1 % (39.0-51.0); MEAN CELL VOLUME 93.7 FL (80.0-100.0); MEAN CORPUSCULAR HEMOGLOBIN 32.8 PG (27.0-34.0); RED BLOOD COUNT 2.36 MIL/MM3 (4.50-5.90); WHITE BLOOD COUNT 0.1 TH/MM3 (4.0-11.0)
[2016-11-03 05:08] LABS: HEMO FLAGS AUTO DIFF
[2016-11-03 05:10] LABS: PLATELET COUNT 12 TH/MM3 (150-450)
[2016-11-03 05:28] LABS: BICARBONATE 19.3 MEQ/L (21.0-32.0); CALCIUM-PROTEIN CORRECTED 7.6 MG/DL (8.5-10.1); MAGNESIUM 2.2 MG/DL (1.5-2.5); POTASSIUM 4.7 MEQ/L (3.5-5.1); TOTAL BILIRUBIN ADULT 0.7 MG/DL (0.2-1.0); URIC ACID 0.3 MG/DL (2.6-7.2)
[2016-11-03 06:36] LABS: PLATELET ESTIMATE SMEAR LOW (NORMAL); PLATELET MORPHOLOGY NORMAL (NORMAL); ROULEAUX PRESENT (NORMAL); WBC DIFF SAMPLE 10
[2016-11-03 06:37] LABS: SCAN/DIFF FINAL DIFF MANUAL
[2016-11-03] MEDS ORDERED: ACETAMINOPHEN 325 MG TAB PO PRN (07:45)
[2016-11-03] MEDS ORDERED: diphenhydrAMINE HCL 25 MG CAP PO PRN (07:45)
[2016-11-03] MEDS ORDERED: SODIUM CHLOR 0.9% 250 ML INJ 250 ML IV ONE (07:45)
--- NOTE | 2016-11-03 07:45 | PD.ONC.PN ---
Subjective Subjective Remarks Patient seen and examined, vital signs, medications, weekend events were noted. Subjectively, patient reports difficulty breathing with exertion and also reports worsening appetite. He denies having had fevers or chills. He denies overt bleeding, denies vomiting, denies nausea. He does report heartburn and burping after he eats or drinks anything. Objective Data Date Time Temp Pulse Resp B/P (MAP) Pulse Ox O2 Delivery O2 Flow Rate FiO2 11/03/16 04:00 97.6 82 20 156/68 (97) 98 11/03/16 04:00 71 11/03/16 00:10 72 11/03/16 00:00 98.2 77 20 143/62 (89) 98 11/02/16 20:06 74 11/02/16 20:00 97.8 74 19 143/66 (91) 99 11/02/16 16:00 97.9 76 18 151/70 (97) 97 11/02/16 15:36 97.2 81 16 149/67 (94) 98 11/02/16 12:45 97.3 73 16 128/60 (82) 96 11/02/16 12:00 97.3 78 16 140/65 (90) 95 11/02/16 11:50 97.3 78 16 140/65 (90) 98 11/02/16 07:49 98.3 87 22 129/57 (81) 97 11/03/16 11/03/16 11/03/16 07:00 15:00 23:00 Intake Total 1745 ml Output Total 600 ml Balance 1145 ml Result Diagram: 11/03/16 0430 11/03/16 0430 Laboratory Results Laboratory Tests Test 11/02/16 18:50 11/02/16 19:40 11/03/16 04:30 Hemoglobin 7.3 GM/DL 7.7 GM/DL Hematocrit 21.3 % 22.1 % Prothrombin Time 11.1 SEC Prothromb Time International Ratio 1.0 RATIO Activated Partial Thromboplast Time 28.6 SEC White Blood Count 0.1 TH/MM3 Red Blood Count 2.36 MIL/MM3 Mean Corpuscular Volume 93.7 FL Mean Corpuscular Hemoglobin 32.8 PG Mean Corpuscular Hemoglobin Concent 35.0 % Red Cell Distribution Width 19.0 % Platelet Count 12 TH/MM3 Mean Platelet Volume 9.1 FL CBC Comment AUTO DIFF Differential Total Cells Counted 10 Lymphocytes % 100 % Differential Comment FINAL DIFF MANUAL Platelet Estimate LOW Platelet Morphology Comment NORMAL Rouleau PRESENT Blood Urea Nitrogen 104 MG/DL Creatinine 7.39 MG/DL Random Glucose 102 MG/DL Total Protein 5.3 GM/DL Albumin 2.6 GM/DL Calcium Level 6.7 MG/DL Phosphorus Level 8.5 MG/DL Magnesium Level 2.2 MG/DL Uric Acid 0.3 MG/DL Alkaline Phosphatase 37 U/L Aspartate Amino Transf (AST/SGOT) 17 U/L Alanine Aminotransferase (ALT/SGPT) 23 U/L Lactate Dehydrogenase 470 U/L Total Bilirubin 0.7 MG/DL Sodium Level 136 MEQ/L Potassium Level 4.7 MEQ/L Chloride Level 101 MEQ/L Carbon Dioxide Level 19.3 MEQ/L Anion Gap 16 MEQ/L Estimat Glomerular Filtration Rate 7 ML/MIN Protein Corrected Calcium 7.6 MG/DL Random Vancomycin Level 17.0 COMMENT Administered Medications Medications (Trade) Dose Ordered Sig/Daniel Route PRN Reason Start Time Stop Time Status Last Admin Dose Admin Sodium Chloride (NS Flush) 2 ml UNSCH PRN IV FLUSH FLUSH AFTER USING IV ACCESS 10/24/16 01:45 10/28/16 03:42 Sodium Chloride (NS Flush) 2 ml BID IV FLUSH 10/24/16 09:00 11/02/16 22:27 Doxycycline Hyclate (Vibratab) 100 mg Q12HR PO 10/24/16 09:00 11/02/16 22:24 Sodium Chloride (NS Flush) DAILY IVF 10/25/16 09:00 11/01/16 10:52 Heparin Sodium (Porcine) (Heparin Central Flush) DAILY IV FLUSH 10/25/16 09:00 10/26/16 08:01 Lactobacillus Acidophilus (Lactinex) 1 tab TID PO 10/24/16 18:00 11/02/16 18:22 Diphenhydramine HCl (Benadryl) 25 mg Q4H PRN PO WHILE BLOOD INFUSING 10/25/16 18:00 11/01/16 22:11 Miscellaneous (Pill Splitter) 1 ea UNSCH PRN OTHER SEE LABEL COMMENTS 10/30/16 06:45 10/30/16 06:36 Sodium Chloride 1,000 ml @ 42 mls/hr [id number] IV 10/30/16 08:30 11/02/16 09:13 Bumetanide (Bumex Inj) 2 mg BID@,18 IV PUSH 10/30/16 09:00 11/02/16 18:22 Sevelamer Carbonate (Renvela) 1,600 mg TIDAC PO 10/30/16 12:00 11/02/16 18:22 Sodium Chloride 1,000 ml @ 0 mls/hr Q0M PRN IV For Prime & Rinse Back 10/30/16 08:47 10/30/16 17:22 Gentamicin Sulfate (Gentamicin (Dialysis) Inj) 20 mg UNSCH PRN IV WITH DIALYSIS 10/30/16 09:00 10/31/16 12:44 Ondansetron HCl (Zofran Inj) 4 mg UNSCH PRN IV WITH DIALYSIS 10/30/16 09:00 11/01/16 10:46 Acetaminophen (Tylenol) 650 mg UNSCH PRN PO for headach, pain, temp > 101F 10/30/16 09:00 11/01/16 22:11 Diltiazem HCl (Cardizem) 30 mg Q6HR PO 10/30/16 12:00 11/03/16 06:41 Cefepime HCl 1000 mg/Sodium Chloride 100 ml @ 200 mls/hr Q24H IV 10/31/16 12:00 11/02/16 11:40 Filgrastim (Neupogen Inj) 480 mcg DAILY@14 SQ 10/31/16 14:00 11/02/16 18:29 Mupirocin (Bactroban 2% Oint) 1 applic Q12HR TOPICAL 11/01/16 21:00 11/02/16 21:00 Allopurinol (Zyloprim) 200 mg DAILY PO 11/02/16 09:00 11/02/16 09:13 Pantoprazole Sodium (Protonix) 20 mg DAILY PO 11/02/16 09:00 11/02/16 09:13 Objective Remarks GENERAL APPEARANCE: Mr. Chou is an elderly male, he is tall and heavy-set, he has a very pleasant disposition and is in no acute distress. HEENT: Head atraumatic, normocephalic, conjunctivae are mildly pale. Sclerae are anicteric, EOMI, PERRLA, oral exam no pharyngeal erythema. NECK: No palpable cervical or supraclavicular lymphadenopathy. Right IJ Vas-Cath in place. RESPIRATORY: Good air movement bilaterally. No added breath sounds. CARDIOVASCULAR: Regular rate and rhythm, S1-S2. No obvious murmurs, gallops. ABDOMEN: Obese belly, soft, nontender, nondistended, no palpable organ enlargement, specifically no hepatosplenomegaly. EXTREMITIES: Lower extremities, positive for pretibial edema. No calf tenderness. PICC line in right arm. JAZ/LYMPH EXAMINATION: No cervical lymphadenopathy, no axillary lymphadenopathy and no inguinal lymphadenopathy. GAS CHARGER: Exam without any abnormal findings specifically no motor or sensory deficits. 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 This is concerning to him as he is usually able to walk approximately 3-4 miles with no problems. His PCP advised that the go to the hospital for evaluation. 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 He was transferred to [place] for further workup and inpatient induction chemotherapy. Assessment 71-year-old male admitted for workup and induction chemotherapy for a diagnosis of B-cell acute lymphocytic leukemia Plan 1. Started chemotherapy with Rituxan + hyper-CVAD on 10/26/2016; given the CD 20 positivity of the B-cell ALL on Flow cytometry on bone marrow aspiration specimen. Await results of the Armstrong chromosome to determine if the patient may benefit from tyrosine kinase inhibitors. He is increasingly cytopenic, had neutropenic, anemic and from cytopenic. Neupogen started a dose of 480 g subcutaneous daily on 10/31/2016. Remains afebrile. Neutrophil count= 0. 2. TLS; with renal failure, elevated Uric acid, LDH and Phos. Started on hemodialysis on 10/30/2016, second treatment on 10/31/2016. Rasburicase given . continue renally dosed allopurinol. phosphorus remains elevated (on Renvela) . Status post rasburicase on 10/30/2016. 3. Continue supportive transfusions; daily CBCs. patient requires irradiated blood products. +CMV status. Transfuse 1 unit platelets today. 4. Isolated Temps earlier this Week: On cefepime, vancomycin (on hold d/t high trough) and Doxycycline. one cx + s. epidermis (likely contaminant). CXR from 11.01 showed only bibasilar atelectasis. 5. AFib with RVR: rate controlled, appreciate cardiology input. 6. dyspepsia: started Protonix Sukhwinder Rice MD Nov 03, 2016 07:44
[2016-11-03] MEDS: MUPIROCIN 2% OINT 22 GM TUBE TOPICAL SCH ×2 (09:00→21:00)
--- NOTE | 2016-11-03 09:30 | HHI.NPPN ---
Subjective General Problems: Edema, Hypertension Renal Failure: Acute Interval History Seen during dialysis. He is reporting fatigue. (Nava Cabral) Review of Systems General Constitutional: Fatigue (Nava Cabral) Respiratory Lungs: SOB (Nava Cabral) Cardiovascular Cardiac: Edema, YOUNGER (Nava Cabral) Objective Data Data Vital Signs Date Time Temp Pulse Resp B/P (MAP) Pulse Ox O2 Delivery O2 Flow Rate FiO2 11/03/16 04:00 97.6 82 20 156/68 (97) 98 11/03/16 04:00 71 11/03/16 00:10 72 11/03/16 00:00 98.2 77 20 143/62 (89) 98 11/02/16 20:06 74 11/02/16 20:00 97.8 74 19 143/66 (91) 99 11/02/16 16:00 97.9 76 18 151/70 (97) 97 11/02/16 15:36 97.2 81 16 149/67 (94) 98 11/02/16 12:45 97.3 73 16 128/60 (82) 96 11/02/16 12:00 97.3 78 16 140/65 (90) 95 11/02/16 11:50 97.3 78 16 140/65 (90) 98 (Nava Cabral) -: 11/03/16 0430 11/03/16 0430 Imaging Last Impressions Chest X-Ray 11/01/16 0000 Signed Impressions: Service Date/Time: Tuesday, November 01, 2016 14:05 - CONCLUSION: Bibasilar densities likely atelectasis. Neal Castro MD Catheter Placement X-Ray 10/30/16 0826 Signed Impressions: Service Date/Time: October 11:04 - CONCLUSION: Uncomplicated Vas-Cath placement as above. Matt Lassiter MD Renal Ultrasound 10/30/16 0000 Signed Impressions: Service Date/Time: , October 30, 2016 08:13 - CONCLUSION: Unremarkable exam with no evidence of hydronephrosis. Wander Hodges MD Lumbar Puncture Fluoroscopy 10/27/16 0000 Signed Impressions: Service Date/Time: Thursday, October 27, 2016 12:19 - CONCLUSION: Uncomplicated fluoroscopically guided lumbar puncture with chemotherapy injection. Matt Lassiter MD PICC Line Insertion 10/24/16 0000 Signed Impressions: Service Date/Time: Monday, October 24, 2016 12:01 - CONCLUSION: 1. Uncomplicated central venous Power PICC line placement. 2. The PICC line can be used immediately. Serafin Saba MD Bone Biopsy CT 10/24/16 0000 Signed Impressions: Service Date/Time: Monday, October 24, 2016 16:09 - CONCLUSION: 1. Uncomplicated CT guided bone marrow aspirate. 2. Uncomplicated CT guided bone marrow biopsy. Balwinder Swenson MD Abdomen/Pelvis CT 10/24/16 0000 Signed Impressions: Service Date/Time: Monday, October 24, 2016 15:57 - CONCLUSION: 1. Hepatic steatosis. 2. No evidence of metastatic disease or suspicious mass. 3. Bilateral inguinal hernias. Triston Espinoza MD Tubes & Lines: Vas-Cath (Nava Cabral B. [employer]UC[employer]) Physical Exam General Appearance: Well Developed, Well Nourished, No Acute Distress, Comfortable (MariannaNava B. [employer] EDUCATION [employer]OR) Eyes Eye Exam: Pupils Equal (MariannaNava B. [employer] EDUCATION TUTOR) Throat Throat Exam: Oral Mucosa [place] & Moist (MariannaNava B. [employer] EDUCATION TUTOR) Neck Neck Exam: Neck Supple (MariannaNava B. [employer] EDUCATION TUTOR) Pulmonary Resp Exam: Clear Bilaterally, Breath Sounds Equal (MariannaNava B. [employer] EDUCATION TUTOR) Cardiology CV Exam: Normal Sinus Rhythm, Good Perfusion (MariannaNava B. [employer] EDUCATION TUTOR) Gastrointestinal/Abdomen GI Exam: Soft, Non-Tender, Bowel Sounds Present (MariannaNava B. [employer] EDUCATION TUTOR) Musculoskeletal MS Exam: Joints Intact, Normal Gait, Normal Tone (MariannaNava B. [employer] EDUCATION TUTOR) Integumentary Skin Exam: Clear, Warm, Dry, Intact (MariannaNava B. [employer] EDUCATION TUTOR) Extremeties Extremities Exam: Pedal Pulses Palpable, Moderate Edema (MariannaNava B. [employer] EDUCATION TUTOR) Neurologic Neuro Exam: Alert, Awake, Oriented, Speech Clear, Moving All Extremities (Nava Cabral B. [employer] EDUCATION TUTOR) Psychiatric Psych Exam: Appropriate Responses (Nava Cabral) Assessment/Plan Discussed Condition With: Patient Assessment Summary: FAIZA/Acute Renal Failure, Hypertension Electrolyte Assessment: Hypocalcemia, Metabolic Acidosis Problem List: (1) Acute kidney injury ICD Codes: N17.9 - Acute kidney failure, unspecified Status: Acute Plan: He has normal renal function at baseline, FAIZA from Tumor lysis syndrome (with hypocalcemia, hyperphosphatemia, and hyperuricemia) Received rasburicase s/p vascath placement 10/30, HD initiated 10/31, now on MWF HD schedule Seen during dialysis today on a 2K, 250 BFR, goal 4L he is non oliguric, continue Bumex 2 mg IV BID Avoid bicarb drip, it is not recommended in this situation as it can promote deposition of phosphate containing stones. Monitor calcium, phosphorus, K, and uric acid repeat renal panel in AM Avoid nephrotoxic agents. 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 (3) Hyperphosphatemia ICD Codes: E83.39 - Other disorders of phosphorus metabolism Status: Acute Plan: He is on Renvela, follow phosphorus level (4) Hypocalcemia ICD Codes: E83.51 - Hypocalcemia Status: Acute Plan: follow serum calcium level Avoid IV calcium administration. Continue phosphate binders to treat hyperphosphatemia (5) Pancytopenia ICD Codes: D61.818 - Other pancytopenia Status: Acute Plan: ID and oncology following, he is neutropenic on cefepime; Doxycycline and vancomycin have been stopped monitor drug levels and renally dose medications if appropriate he has been transfused with PRBC and platelets (Nava Cabral) Plan patient was seen and examined. Agree with above assessment and plan. Non oliguric, however no renal recovery. (Clay Galicia MD) Nava Cabral Nov 03, 2016 09:30 Clay Galicia MD Nov 04, 2016 10:57
--- NOTE | 2016-11-03 09:39 | HHI.PR ---
Subjective Remarks seen in hemodialysis no complain of chest discomfort or slight nausea, poor po states leg swelling the same patient states he has been voiding a lot- grossly clear urine Objective Vitals Vital Signs Date Time Temp Pulse Resp B/P (MAP) Pulse Ox O2 Delivery O2 Flow Rate FiO2 11/03/16 04:00 97.6 82 20 156/68 (97) 98 11/03/16 04:00 71 11/03/16 00:10 72 11/03/16 00:00 98.2 77 20 143/62 (89) 98 11/02/16 20:06 74 11/02/16 20:00 97.8 74 19 143/66 (91) 99 11/02/16 16:00 97.9 76 18 151/70 (97) 97 11/02/16 15:36 97.2 81 16 149/67 (94) 98 11/02/16 12:45 97.3 73 16 128/60 (82) 96 11/02/16 12:00 97.3 78 16 140/65 (90) 95 11/02/16 11:50 97.3 78 16 140/65 (90) 98 I/O 11/02/16 11/02/16 11/02/16 11/03/16 11/03/16 11/03/16 07:00 15:00 23:00 07:00 15:00 23:00 Intake Total 754 ml 100 ml 1555 ml 1745 ml Output Total 600 ml 2800 ml 600 ml Balance 154 ml 100 ml -1245 ml 1145 ml Intake Oral 240 ml 480 ml 980 ml IV Total 514 ml 100 ml 700 ml 765 ml Packed Cells 375 ml Output Urine Total 600 ml 2800 ml 600 ml # Bowel Movements 3 Result Diagram: 11/03/16 04311/03/16 043 Imaging awake and alert, BAD anicteric neck - Vas cath in place decreased breath sounds, no rales or wheezes regular rhythm abdomen- globularly soft, nontender extremities + edema, good peripheral pulses Procedures 10/24/16 PICC line placement 10/24/16 bone marrow biopsy 10/30/16 Vas-Cath placement Date of Insertion: Oct 24, 2016 Line: PICC A/P Problem List: (1) Pancytopenia ICD Code: D61.818 - Other pancytopenia Status: Acute (2) Pneumonia ICD Code: J18.9 - Pneumonia, unspecified organism Status: Acute (3) 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 On Allopurinol FAIZA secondary to TLS Appreciate oncology recommendations. Continue chemotherapy per oncology. ff electrolytes/renal functions ongoing hemodialyis. ff electrolytes. Nephrology ff. On IV Bumex q 12 New onset Atrial fibrillation with RVR on admission- now rate controlled- in SR. on Cardizem 30 mg po qid. . EF 55-60%. not on OAC- with pancytopenia Pneumonia: Continue cefepime, doxycycline,Vancomycin. ID ff. Stable on room air. Pancytopenia: RBC transfusion per Oncology Thrombocytopenia- on Neupogen per Oncology. platelet transfusion today Hypertension: Continue CCB. Vasotec IV as needed. Blood pressure control improved. with HD DVT prophylaxis: SCDs, KRISTEN sauer. Discharge Planning Pending nephrology, oncology recommendations Problem Qualifiers (1) Pneumonia: Minda Aquino MD Nov 03, 2016 09:38
--- NOTE | 2016-11-03 12:42 | HHI.IDPN ---
Note Infectious Disease Note Patient feels "wiped out". No other complaints. Had dialysis today. Denies chills or nausea. Afebrile. hemodynamically stable. Patient with AML receiving chemotherapy. PAST MEDICAL HISTORY 1. Rheumatic fever 2. Removal of vocal polyps in his 20s. 3. Appendectomy ALLERGIES No drug allergies. MEDICATIONS 1. Vancomycin 2. Cefepime 3. Doxycycline OBJECTIVE: Vital Signs Date Time Temp Pulse Resp B/P (MAP) Pulse Ox O2 Delivery O2 Flow Rate FiO2 11/03/16 12:25 97.2 72 20 128/61 (83) 98 11/03/16 04:00 97.6 82 20 156/68 (97) 98 11/03/16 04:00 71 11/03/16 00:10 72 11/03/16 00:00 98.2 77 20 143/62 (89) 98 11/02/16 20:06 74 11/02/16 20:00 97.8 74 19 143/66 (91) 99 11/02/16 16:00 97.9 76 18 151/70 (97) 97 11/02/16 15:36 97.2 81 16 149/67 (94) 98 11/02/16 12:45 97.3 73 16 128/60 (82) 96 11/03/16 11/03/16 11/04/16 14:59 22:59 06:59 Output Total 225 ml Balance -225 ml Output Urine Total 225 ml Laboratory Tests Test 11/02/16 05:15 11/02/16 18:50 11/03/16 04:30 White Blood Count 0.1 TH/MM3 0.1 TH/MM3 Red Blood Count 1.86 MIL/MM3 2.36 MIL/MM3 Hemoglobin 6.2 GM/DL 7.3 GM/DL 7.7 GM/DL Hematocrit 17.7 % 21.3 % 22.1 % Mean Corpuscular Volume 95.1 FL 93.7 FL Mean Corpuscular Hemoglobin 33.1 PG 32.8 PG Mean Corpuscular Hemoglobin Concent 34.8 % 35.0 % Red Cell Distribution Width 21.1 % 19.0 % Platelet Count 19 TH/MM3 12 TH/MM3 Mean Platelet Volume 8.0 FL 9.1 FL Neutrophils (%) (Auto) % Lymphocytes (%) (Auto) % Monocytes (%) (Auto) % Eosinophils (%) (Auto) % Basophils (%) (Auto) % Neutrophils # (Auto) TH/MM3 Lymphocytes # (Auto) TH/MM3 Monocytes # (Auto) TH/MM3 Eosinophils # (Auto) TH/MM3 Basophils # (Auto) TH/MM3 CBC Comment AUTO DIFF AUTO DIFF Differential Total Cells Counted 2 10 Lymphocytes % 100 % 100 % Neutrophils # (Manual) 0.0 TH/MM3 Differential Comment FINAL DIFF MANUAL FINAL DIFF MANUAL Platelet Estimate RARE LOW Platelet Morphology Comment NORMAL NORMAL Rouleau PRESENT Laboratory Tests Test 11/02/16 05:15 11/03/16 04:30 Blood Urea Nitrogen 89 MG/DL 104 MG/DL Creatinine 6.04 MG/DL 7.39 MG/DL Random Glucose 100 MG/DL 102 MG/DL Total Protein 5.0 GM/DL 5.3 GM/DL Albumin 2.5 GM/DL 2.6 GM/DL Calcium Level 7.5 MG/DL 6.7 MG/DL Phosphorus Level 8.4 MG/DL 8.5 MG/DL Magnesium Level 2.3 MG/DL 2.2 MG/DL Uric Acid LESS THAN 0.2 MG/DL 0.3 MG/DL Alkaline Phosphatase 36 U/L 37 U/L Aspartate Amino Transf (AST/SGOT) 13 U/L 17 U/L Alanine Aminotransferase (ALT/SGPT) 24 U/L 23 U/L Lactate Dehydrogenase 512 U/L 470 U/L Total Bilirubin 0.7 MG/DL 0.7 MG/DL Sodium Level 135 MEQ/L 136 MEQ/L Potassium Level 4.3 MEQ/L 4.7 MEQ/L Chloride Level 100 MEQ/L 101 MEQ/L Carbon Dioxide Level 24.2 MEQ/L 19.3 MEQ/L Anion Gap 11 MEQ/L 16 MEQ/L Estimat Glomerular Filtration Rate 9 ML/MIN 7 ML/MIN Protein Corrected Calcium 7.6 MG/DL IMAGING: Renal Ultrasound 10/30/16 0000 Signed Impressions: Service Date/Time: October 08:13 - CONCLUSION: Unremarkable exam with no evidence of hydronephrosis. Wander Hodges MD Chest X-Ray 10/29/16 0000 Signed Impressions: Service Date/Time: Saturday, October 29, 2016 08:10 - CONCLUSION: No acute disease. Dion Marmolejo Jr., MD PHYSICAL EXAMINATION GENERAL: No acute distress. HEENT: Pupils reactive to light. No icterus. Oropharynx moist mucosa without lesions. NECK: Supple, No adenopathy or swelling. LUNGS: Clear breath sounds. HEART: Irregular S1 and S2 without audible murmurs, rubs or gallops. ABDOMEN: Bowel sounds present, soft, and nontender. EXTREMITIES: No clubbing, cyanosis or edema. SKIN: No diffuse rash. NEUROLOGIC: No gross focal findings. PSYCHIATRIC: Calm and cooperative. IMPRESSION 1. Acute myelogenous leukemia with pancytopenia. Patient undergoing induction chemotherapy. 2. Febrile neutropenia. Negative cultures. 3. Acute renal failure. 4. The One blood culture is contaminant. RECOMMENDATIONS 1. Continue Cefepime. 2. Continue vancomycin with pharmacy to monitor the levels and dosage since the patient's renal function has declined. 3. Continue Doxycycline. 4. Monitor temperature. 5. Reculture if fever. 6. Monitor clinical status. Observe for signs of infection. Gene Hewitt MD Nov 03, 2016 12:42
[2016-11-03] MEDS: CEFEPIME 1000 MG/NS 100 ML IV SCH ×2 (12:59)
[2016-11-03] MEDS: SEVELAMER CARBONATE 800 MG TAB PO SCH ×2 (12:59→17:00)
[2016-11-03] MEDS: PANTOPRAZOLE SOD 20 MG DELAYED RELEASE TAB PO SCH (13:00)
[2016-11-03] MEDS: DOXYCYCLINE HYCLATE 100 MG TAB PO SCH ×2 (13:00→22:35)
[2016-11-03] MEDS: LACTOBACILLUS ACIDOPHILUS TAB PO SCH ×2 (13:00→17:12)
[2016-11-03] MEDS: ALLOPURINOL 100 MG TAB PO SCH (13:00)
[2016-11-03] MEDS: SODIUM CHLORIDE 0.9% FLUSH 10 ML FLUSH IVF SCH (13:01)
[2016-11-03] MEDS: SODIUM CHLORIDE 0.9% FLUSH 10 ML FLUSH IV FLUSH SCH ×2 (13:01→22:36)
[2016-11-03] MEDS: BUMETANIDE INJ 1 MG/4 ML VIAL IV PUSH SCH ×2 (13:01→19:43)
[2016-11-03] MEDS: SODIUM CHLOR 0.9% 1000 ML INJ 1,000 ML IV SCH (15:49)
[2016-11-03] MEDS: FILGRASTIM 480 MCG/1.6 ML VIAL SQ SCH (15:49)
[2016-11-03] MEDS ORDERED: VANCOMYCIN 1,000 MG/NS 250 ML IV ONE ×2 (16:00)
[2016-11-03] MEDS: ONDANSETRON HCL 4 MG/2 ML VIAL IV PRN (23:59)
[2016-11-04] VITALS (10 sets, daily range): BP systolic 136–146; BP diastolic 60–65; PULSE 75–82; RESP 17–18; TEMP 97.4–99.5; O2SAT 96–99
[2016-11-04] MEDS: DILTIAZEM HCL 30 MG TAB PO SCH ×4 (00:02→17:41)
[2016-11-04] MEDS: SODIUM CHLORIDE 0.9% FLUSH 10 ML FLUSH IV FLUSH PRN ×2 (03:52→03:53)
[2016-11-04 06:13] LABS: MAGNESIUM 2.2 MG/DL (1.5-2.5); URIC ACID 0.4 MG/DL (2.6-7.2)
[2016-11-04] MEDS: SEVELAMER CARBONATE 800 MG TAB PO SCH ×3 (08:00→17:00)
[2016-11-04 08:28] LABS: MEAN CELL VOLUME 94.3 FL (80.0-100.0); MEAN CORPUSCULAR HEMOGLOBIN 33.6 PG (27.0-34.0); MEAN CORPUSCULAR HGB CONC 35.6 % (32.0-36.0); RED BLOOD COUNT 2.22 MIL/MM3 (4.50-5.90); RED CELL DISTRIBUTION WIDTH 18.7 % (11.6-17.2); WHITE BLOOD COUNT 0.1 TH/MM3 (4.0-11.0)
[2016-11-04] MEDS: BUMETANIDE INJ 1 MG/4 ML VIAL IV PUSH SCH ×2 (08:36→17:39)
[2016-11-04] MEDS: PANTOPRAZOLE SOD 20 MG DELAYED RELEASE TAB PO SCH (08:37)
[2016-11-04] MEDS: DOXYCYCLINE HYCLATE 100 MG TAB PO SCH (08:37)
[2016-11-04] MEDS: LACTOBACILLUS ACIDOPHILUS TAB PO SCH ×3 (08:37→17:41)
[2016-11-04] MEDS: ALLOPURINOL 100 MG TAB PO SCH (08:37)
--- NOTE | 2016-11-04 08:40 | PD.ONC.PN ---
Subjective Subjective Remarks Patient seen and examined, vital signs, labs, medications and technology methodology consultant reports reviewed. Subjectively; the patient reports having "indigestion" and nausea, he tells me he vomited bile and acid this morning. He feels generally tired and getting up out of bed to the bathroom is exhausting. He denies fevers or chills but did have a temperature of 99.8F overnight. He continues hemodialysis and reports that process is also very tiring. He denies overt bleeding, diarrhea, chest pain or other major complaints. Objective Data Date Time Temp Pulse Resp B/P (MAP) Pulse Ox O2 Delivery O2 Flow Rate FiO2 11/04/16 04:05 82 11/04/16 03:44 98.9 79 18 136/63 (87) 98 11/04/16 00:05 99.5 11/04/16 00:03 75 11/04/16 00:00 98.6 77 17 143/63 (89) 97 11/03/16 20:12 75 11/03/16 20:00 98.3 91 18 138/65 (89) 97 11/03/16 16:14 74 11/03/16 15:15 97.5 80 18 145/66 (92) 98 11/03/16 12:31 73 11/03/16 12:25 97.2 72 20 128/61 (83) 98 11/04/16 11/04/16 11/04/16 07:00 15:00 23:00 Intake Total 375 ml Output Total 300 ml Balance 75 ml Result Diagram: 11/03/16 0430 11/03/16 0430 Laboratory Results Laboratory Tests Test 11/04/16 03:55 Uric Acid 0.4 MG/DL Phosphorus Level 6.4 MG/DL Magnesium Level 2.2 MG/DL Lactate Dehydrogenase 428 U/L Administered Medications Medications (Trade) Dose Ordered Sig/Daniel Route PRN Reason Start Time Stop Time Status Last Admin Dose Admin Sodium Chloride (NS Flush) 2 ml UNSCH PRN IV FLUSH FLUSH AFTER USING IV ACCESS 10/24/16 01:45 11/04/16 03:53 Sodium Chloride (NS Flush) 2 ml BID IV FLUSH 10/24/16 09:00 11/03/16 22:36 Doxycycline Hyclate (Vibratab) 100 mg Q12HR PO 10/24/16 09:00 11/03/16 22:35 Sodium Chloride (NS Flush) DAILY IVF 10/25/16 09:00 11/03/16 13:01 Heparin Sodium (Porcine) (Heparin Central Flush) DAILY IV FLUSH 10/25/16 09:00 10/26/16 08:01 Lactobacillus Acidophilus (Lactinex) 1 tab TID PO 10/24/16 18:00 11/03/16 17:12 Miscellaneous (Pill Splitter) 1 ea UNSCH PRN OTHER SEE LABEL COMMENTS 10/30/16 06:45 10/30/16 06:36 Sodium Chloride 1,000 ml @ 42 mls/hr [id number] IV 10/30/16 08:30 11/03/16 15:49 Bumetanide (Bumex Inj) 2 mg BID@ IV PUSH 10/30/16 09:00 11/03/16 19:43 Sodium Chloride 1,000 ml @ 0 mls/hr Q0M PRN IV For Prime & Rinse Back 10/30/16 08:47 10/30/16 17:22 Sodium Chloride (NS Flush) 5 ml UNSCH PRN IV FLUSH WITH DIALYSIS 10/30/16 09:00 11/04/16 03:52 Gentamicin Sulfate (Gentamicin (Dialysis) Inj) 20 mg UNSCH PRN IV WITH DIALYSIS 10/30/16 09:00 10/31/16 12:44 Ondansetron HCl (Zofran Inj) 4 mg UNSCH PRN IV WITH DIALYSIS 10/30/16 09:00 11/03/16 23:59 Acetaminophen (Tylenol) 650 mg UNSCH PRN PO for headach, pain, temp > 101F 10/30/16 09:00 11/01/16 22:11 Diltiazem HCl (Cardizem) 30 mg Q6HR PO 10/30/16 12:00 11/04/16 06:03 Cefepime HCl 1000 mg/Sodium Chloride 100 ml @ 200 mls/hr Q24H IV 10/31/16 12:00 11/03/16 12:59 Filgrastim (Neupogen Inj) 480 mcg DAILY@14 SQ 10/31/16 14:00 11/03/16 15:49 Mupirocin (Bactroban 2% Oint) 1 applic Q12HR TOPICAL 11/01/16 21:00 11/02/16 21:00 Allopurinol (Zyloprim) 200 mg DAILY PO 11/02/16 09:00 11/03/16 13:00 Pantoprazole Sodium (Protonix) 20 mg DAILY PO 11/02/16 09:00 11/03/16 13:00 Sevelamer Carbonate (Renvela) 2,400 mg TIDAC PO 11/03/16 12:15 11/03/16 12:59 Objective Remarks GENERAL APPEARANCE: Mr. Chou is an elderly male, he is tall and heavy-set, he has a very pleasant disposition and is in no acute distress. HEENT: Head atraumatic, normocephalic, conjunctivae are mildly pale. Sclerae are anicteric, EOMI, PERRLA, oral exam no pharyngeal erythema. NECK: No palpable cervical or supraclavicular lymphadenopathy. Right IJ Vas-Cath in place. RESPIRATORY: Good air movement bilaterally. No added breath sounds. CARDIOVASCULAR: Regular rate and rhythm, S1-S2. No obvious murmurs, gallops. ABDOMEN: Obese belly, soft, nontender, nondistended, no palpable organ enlargement, specifically no hepatosplenomegaly. EXTREMITIES: Lower extremities, positive for pretibial edema. No calf tenderness. PICC line in right arm. JAZ/LYMPH EXAMINATION: No cervical lymphadenopathy, no axillary lymphadenopathy and no inguinal lymphadenopathy. [employer]W MEMBER: Exam without any abnormal findings specifically no motor or sensory deficits. 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 This is concerning to him as he is usually able to walk approximately 3-4 miles with no problems. His PCP advised that the go to the hospital for evaluation. 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 He was transferred to [place] for further workup and inpatient induction chemotherapy. Assessment 71-year-old male admitted for workup and induction chemotherapy for a diagnosis of B-cell acute lymphocytic leukemia Plan 1. Started chemotherapy with Rituxan + hyper-CVAD on 10/26/2016; given the CD 20 positivity of the B-cell ALL on Flow cytometry on bone marrow aspiration specimen. Await results of the Wilbur chromosome to determine if the patient may benefit from tyrosine kinase inhibitors. He is increasingly cytopenic, had neutropenic, anemic and from cytopenic. Neupogen started a dose of 480 g subcutaneous daily on 10/31/2016. Remains afebrile. Neutrophil count= 0. Continue daily CBCs; CBC from this morning is pending at this time. Supportive transfusions to maintain platelet count over 10,000 and to maintain hemoglobin over 7 g/dL. 2. TLS; with renal failure, elevated Uric acid, LDH and Phos. Started on hemodialysis on 10/30/2016, second treatment on 10/31/2016. Rasburicase given . continue renally dosed allopurinol. phosphorus remains elevated (on Renvela) . Status post rasburicase on 10/30/2016. Uric acid level 0.2 as of today. LDH continues to trend down. 3. Continue supportive transfusions; daily CBCs. patient requires irradiated blood products. +CMV status. 4. Isolated Temps earlier this Week: On cefepime, vancomycin (on hold d/t high trough) and Doxycycline. one cx + s. epidermis (likely contaminant). CXR from 11.01 showed only bibasilar atelectasis. 5. AFib with RVR: rate controlled, appreciate cardiology input. 6. dyspepsia: started Protonix will start when necessary Zofran every 6 hours. Sukhwinder Rice MD Nov 04, 2016 08:40
[2016-11-04] MEDS: SODIUM CHLORIDE 0.9% FLUSH 10 ML FLUSH IV FLUSH SCH (08:41)
[2016-11-04] MEDS: MUPIROCIN 2% OINT 22 GM TUBE TOPICAL SCH ×2 (08:42→21:00)
[2016-11-04 08:51] LABS: POTASSIUM 4.1 MEQ/L (3.5-5.1)
[2016-11-04 08:54] LABS: HEMATOCRIT 20.9 % (39.0-51.0); HEMO FLAGS AUTO DIFF
[2016-11-04 08:55] LABS: PLATELET COUNT 16 TH/MM3 (150-450)
[2016-11-04 09:47] LABS: PLATELET ESTIMATE SMEAR LOW (NORMAL); PLATELET MORPHOLOGY NORMAL (NORMAL); POLYS (SEG NEUTROPHILS) 10 % (16-70); SCAN/DIFF FINAL DIFF MANUAL; TEARDROP RBCS 1+ (NORMAL); WBC DIFF SAMPLE 10
--- NOTE | 2016-11-04 10:13 | HHI.PR ---
Subjective Remarks main complain- is GI- belching a lot- per patient chronic- gas, "no pain at all " + BM- formed- no black stools Objective Vitals Vital Signs Date Time Temp Pulse Resp B/P (MAP) Pulse Ox O2 Delivery O2 Flow Rate FiO2 11/04/16 08:55 97.4 79 18 138/64 (88) 99 11/04/16 04:05 82 11/04/16 03:44 98.9 79 18 136/63 (87) 98 11/04/16 00:05 99.5 11/04/16 00:03 75 11/04/16 00:00 98.6 77 17 143/63 (89) 97 11/03/16 20:12 75 11/03/16 20:00 98.3 91 18 138/65 (89) 97 11/03/16 16:14 74 11/03/16 15:15 97.5 80 18 145/66 (92) 98 11/03/16 12:31 73 11/03/16 12:25 97.2 72 20 128/61 (83) 98 I/O 11/03/16 11/03/16 11/03/16 11/04/16 11/04/16 11/04/16 07:00 15:00 23:00 07:00 15:00 23:00 Intake Total 1745 ml 240 ml 350 ml 375 ml Output Total 600 ml 425 ml 700 ml 300 ml Balance 1145 ml -185 ml -350 ml 75 ml Intake Oral 980 ml 240 ml IV Total 765 ml 350 ml 375 ml Output Urine Total 600 ml 425 ml 700 ml 300 ml # Bowel Movements 1 1 Result Diagram: 11/04/16 0355 11/04/16 0355 Imaging Last Impressions Chest X-Ray 11/01/16 0000 Signed Impressions: Service Date/Time: Tuesday, November 01, 2016 14:05 - CONCLUSION: Bibasilar densities likely atelectasis. Neal Castro MD Catheter Placement X-Ray 10/30/16 0826 Signed Impressions: Service Date/Time: October 11:04 - CONCLUSION: Uncomplicated Vas-Cath placement as above. Matt Lassiter MD Renal Ultrasound 10/30/16 0000 Signed Impressions: Service Date/Time: October 08:13 - CONCLUSION: Unremarkable exam with no evidence of hydronephrosis. Wander Hodges MD Lumbar Puncture Fluoroscopy 10/27/16 0000 Signed Impressions: Service Date/Time: Thursday, October 27, 2016 12:19 - CONCLUSION: Uncomplicated fluoroscopically guided lumbar puncture with chemotherapy injection. aMtt Lassiter MD PICC Line Insertion 10/24/16 0000 Signed Impressions: Service Date/Time: Monday, October 24, 2016 12:01 - CONCLUSION: 1. Uncomplicated central venous Power PICC line placement. 2. The PICC line can be used immediately. Serafin Saba MD Bone Biopsy CT 10/24/16 0000 Signed Impressions: Service Date/Time: Monday, October 24, 2016 16:09 - CONCLUSION: 1. Uncomplicated CT guided bone marrow aspirate. 2. Uncomplicated CT guided bone marrow biopsy. Balwinder Swenson MD Abdomen/Pelvis CT 10/24/16 0000 Signed Impressions: Service Date/Time: Monday, October 24, 2016 15:57 - CONCLUSION: 1. Hepatic steatosis. 2. No evidence of metastatic disease or suspicious mass. 3. Bilateral inguinal hernias. Triston Espinoza MD Objective Remarks awake alert anicteric lungs no rales or wheezes regular rhythm abdomen- globularly soft, nontender extremities + trace pretibial edema neuro exam- unremarkable Procedures 10/24/16 PICC line placement 10/24/16 bone marrow biopsy 10/30/16 Vas-Cath placement Date of Insertion: Oct 24, 2016 Line: PICC A/P Problem List: (1) Pancytopenia ICD Code: D61.818 - Other pancytopenia Status: Acute (2) Pneumonia ICD Code: J18.9 - Pneumonia, unspecified organism Status: Acute (3) 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 On Allopurinol FAIZA secondary to TLS Appreciate oncology recommendations. Continue chemotherapy per oncology. ff electrolytes/renal functions ongoing hemodialysis. ff electrolytes. Nephrology ff. On IV Bumex q 12 New onset Atrial fibrillation with RVR on admission- now rate controlled- in SR. on Cardizem 30 mg po qid. . EF 55-60%. not on OAC- with pancytopenia Pneumonia: Continue cefepime, doxycycline . ID ff. Vancomycin with pharmacy dosing. Stable on room air. Pancytopenia: blood products transfusions per Oncology Thrombocytopenia- on Neupogen per Oncology. transfusions per Oncology Hypertension: Continue CCB. Vasotec IV as needed. Blood pressure control improved. with HD DVT prophylaxis: SCDs, KRISTEN hose. Gas sensation- trial of simethicone- will d/w pharmacy if will affect blood counts. started on PPI Dietitian consult for recommendation- poor po Discharge Planning Pending nephrology, oncology recommendations Problem Qualifiers (1) Pneumonia: Minda Aquino MD Nov 04, 2016 10:13
[2016-11-04] MEDS: SIMETHICONE 80 MG CHEWABLE TAB CHEW SCH ×3 (10:30→17:41)
--- NOTE | 2016-11-04 10:44 | HHI.NPPN ---
Subjective General Problems: Edema, Hypertension Renal Failure: Acute Interval History Resting in bed. Vomited overnight. Had dialysis yesterday. He has been making a good amount of urine. (Nava Cabral) Review of Systems General Constitutional: Fatigue (Nava Cabral) Respiratory Lungs: SOB (Nava Cabral) Cardiovascular Cardiac: Edema, YOUNGER (Nava Cabral) Gastrointestinal Gastrointestinal: Nausea & Vomiting (Nava Cabral) Objective Data Data Vital Signs Date Time Temp Pulse Resp B/P (MAP) Pulse Ox O2 Delivery O2 Flow Rate FiO2 11/04/16 08:55 97.4 79 18 138/64 (88) 99 11/04/16 04:05 82 11/04/16 03:44 98.9 79 18 136/63 (87) 98 11/04/16 00:05 99.5 11/04/16 00:03 75 11/04/16 00:00 98.6 77 17 143/63 (89) 97 11/03/16 20:12 75 11/03/16 20:00 98.3 91 18 138/65 (89) 97 11/03/16 16:14 74 11/03/16 15:15 97.5 80 18 145/66 (92) 98 11/03/16 12:31 73 11/03/16 12:25 97.2 72 20 128/61 (83) 98 (Nava Cabral) -: 11/04/16 0355 11/04/16 0355 Imaging Last Impressions Chest X-Ray 11/01/16 0000 Signed Impressions: Service Date/Time: Tuesday, November 01, 2016 14:05 - CONCLUSION: Bibasilar densities likely atelectasis. Neal Castro MD Catheter Placement X-Ray 10/30/16 0826 Signed Impressions: Service Date/Time: October 11:04 - CONCLUSION: Uncomplicated Vas-Cath placement as above. Matt Lassiter MD Renal Ultrasound 10/30/16 0000 Signed Impressions: Service Date/Time: October 08:13 - CONCLUSION: Unremarkable exam with no evidence of hydronephrosis. Wander Hodges MD Lumbar Puncture Fluoroscopy 8/14/17 0000 Signed Impressions: Service Date/Time: Thursday, October 27, 2016 12:19 - CONCLUSION: Uncomplicated fluoroscopically guided lumbar puncture with chemotherapy injection. Matt Lassiter MD PICC Line Insertion 10/24/16 0000 Signed Impressions: Service Date/Time: Monday, October 24, 2016 12:01 - CONCLUSION: 1. Uncomplicated central venous Power PICC line placement. 2. The PICC line can be used immediately. Serafin Saba MD Bone Biopsy CT 10/24/16 0000 Signed Impressions: Service Date/Time: Monday, October 24, 2016 16:09 - CONCLUSION: 1. Uncomplicated CT guided bone marrow aspirate. 2. Uncomplicated CT guided bone marrow biopsy. Balwinder Swenson MD Abdomen/Pelvis CT 10/24/16 0000 Signed Impressions: Service Date/Time: Monday, October 24, 2016 15:57 - CONCLUSION: 1. Hepatic steatosis. 2. No evidence of metastatic disease or suspicious mass. 3. Bilateral inguinal hernias. Triston Espinoza MD Tubes & Lines: Vas-Cath (MariannaNava B. ENTERTAINMENT PRODUCTION PROFESSIONAL) Physical Exam General Appearance: Well Developed, Well Nourished, No Acute Distress, Comfortable (Marianna,Nava B. ENTERTAINMENT PRODUCTION PROFESSIONAL) Eyes Eye Exam: Pupils Equal (Marianna,Nava B. ENTERTAINMENT PRODUCTION PROFESSIONAL) Throat Throat Exam: Oral Mucosa Caroline & Moist (Marianna,Nava B. ENTERTAINMENT PRODUCTION PROFESSIONAL) Neck Neck Exam: Neck Supple (Marianna,Nava B. ENTERTAINMENT PRODUCTION PROFESSIONAL) Pulmonary Resp Exam: Clear Bilaterally, Breath Sounds Equal (Marianna,Nava B. ENTERTAINMENT PRODUCTION PROFESSIONAL) Cardiology CV Exam: Normal Sinus Rhythm, Good Perfusion (Marianna,Nava B. ENTERTAINMENT PRODUCTION PROFESSIONAL) Gastrointestinal/Abdomen GI Exam: Soft, Non-Tender, Bowel Sounds Present (Marianna,Nava B. ENTERTAINMENT PRODUCTION PROFESSIONAL) Musculoskeletal MS Exam: Joints Intact, Normal Gait, Normal Tone (Marianna,Nava B. ENTERTAINMENT PRODUCTION PROFESSIONAL) Integumentary Skin Exam: Clear, Warm, Dry, Intact (Marianna,Nava B. ENTERTAINMENT PRODUCTION PROFESSIONAL) Extremeties Extremities Exam: Pedal Pulses Palpable, Moderate Edema (Marianna,Nava B. ENTERTAINMENT PRODUCTION PROFESSIONAL) Neurologic Neuro Exam: Alert, Awake, Oriented, Speech Clear, Moving All Extremities (Marianna,Nava B. ENTERTAINMENT PRODUCTION PROFESSIONAL) Psychiatric Psych Exam: Appropriate Responses (Nava Cabral) Assessment/Plan Discussed Condition With: Patient Assessment Summary: FAIZA/Acute Renal Failure, Hypertension Electrolyte Assessment: Hypocalcemia, Metabolic Acidosis Problem List: (1) Acute kidney injury ICD Codes: N17.9 - Acute kidney failure, unspecified Status: Acute Plan: He has normal renal function at baseline, FAIZA from Tumor lysis syndrome (with hypocalcemia, hyperphosphatemia, and hyperuricemia) Received rasburicase on 10/31 s/p vascath placement 10/30, HD initiated 10/31, now on MWF HD schedule 4 liter UF yesterday he is non oliguric, continue Bumex 2 mg IV BID Avoid bicarb drip, it is not recommended in this situation as it can promote deposition of phosphate containing stones. Monitor calcium, phosphorus, K, and uric acid repeat renal panel in AM , await renal recovery dialysis tomorrow if needed Avoid nephrotoxic agents. 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 (3) Hyperphosphatemia ICD Codes: E83.39 - Other disorders of phosphorus metabolism Status: Acute Plan: He is on Renvela, follow phosphorus level it has improved slightly (4) Hypocalcemia ICD Codes: E83.51 - Hypocalcemia Status: Acute Plan: follow serum calcium level Avoid IV calcium administration. Continue phosphate binders to treat hyperphosphatemia (5) Pancytopenia ICD Codes: D61.818 - Other pancytopenia Status: Acute Plan: ID and oncology following, he is neutropenic on cefepime monitor drug levels and renally dose medications if appropriate he has been transfused with PRBC and platelets (Nava Cabral) Plan patient was seen and examined. Agree with above assessment and plan. Non oliguric, but no renal recovery so far. Continue dialytic support for the time being. (Clay Galicia MD) Nava Cabral Nov 04, 2016 10:43 Clay Galicia MD Nov 04, 2016 16:15
--- NOTE | 2016-11-04 12:06 | HHI.IDPN ---
Note Infectious Disease Note Patient feels tired. Denies chills or nausea. Afebrile. No SOB. Makes some urine. PAST MEDICAL HISTORY 1. Rheumatic fever 2. Removal of vocal polyps in his 20s. 3. Appendectomy ALLERGIES No drug allergies. MEDICATIONS 1. Vancomycin 2. Cefepime 3. Doxycycline OBJECTIVE: Vital Signs Date Time Temp Pulse Resp B/P (MAP) Pulse Ox O2 Delivery O2 Flow Rate FiO2 11/04/16 08:55 97.4 79 18 138/64 (88) 99 11/04/16 04:05 82 11/04/16 03:44 98.9 79 18 136/63 (87) 98 11/04/16 00:05 99.5 11/04/16 00:03 75 11/04/16 00:00 98.6 77 17 143/63 (89) 97 11/03/16 20:12 75 11/03/16 20:00 98.3 91 18 138/65 (89) 97 11/03/16 16:14 74 11/03/16 15:15 97.5 80 18 145/66 (92) 98 11/03/16 12:31 73 11/03/16 12:25 97.2 72 20 128/61 (83) 98 Laboratory Tests Test 11/02/16 18:50 11/03/16 04:30 11/04/16 03:55 Hemoglobin 7.3 GM/DL 7.7 GM/DL 7.5 GM/DL Hematocrit 21.3 % 22.1 % 20.9 % White Blood Count 0.1 TH/MM3 0.1 TH/MM3 Red Blood Count 2.36 MIL/MM3 2.22 MIL/MM3 Mean Corpuscular Volume 93.7 FL 94.3 FL Mean Corpuscular Hemoglobin 32.8 PG 33.6 PG Mean Corpuscular Hemoglobin Concent 35.0 % 35.6 % Red Cell Distribution Width 19.0 % 18.7 % Platelet Count 12 TH/MM3 16 TH/MM3 Mean Platelet Volume 9.1 FL 8.3 FL CBC Comment AUTO DIFF AUTO DIFF Differential Total Cells Counted 10 10 Lymphocytes % 100 % 90 % Differential Comment FINAL DIFF MANUAL FINAL DIFF MANUAL Platelet Estimate LOW LOW Platelet Morphology Comment NORMAL NORMAL Rouleau PRESENT Neutrophils % (Manual) 10 % Neutrophils # (Manual) 0.0 TH/MM3 Tear Drop Cells 1+ Laboratory Tests Test 11/03/16 04:30 11/04/16 03:55 Blood Urea Nitrogen 104 MG/DL 72 MG/DL Creatinine 7.39 MG/DL 6.36 MG/DL Random Glucose 102 MG/DL 117 MG/DL Total Protein 5.3 GM/DL 5.6 GM/DL Albumin 2.6 GM/DL Calcium Level 6.7 MG/DL 7.2 MG/DL Phosphorus Level 8.5 MG/DL 6.4 MG/DL Magnesium Level 2.2 MG/DL 2.2 MG/DL Uric Acid 0.3 MG/DL 0.4 MG/DL Alkaline Phosphatase 37 U/L Aspartate Amino Transf (AST/SGOT) 17 U/L Alanine Aminotransferase (ALT/SGPT) 23 U/L Lactate Dehydrogenase 470 U/L 428 U/L Total Bilirubin 0.7 MG/DL Sodium Level 136 MEQ/L 138 MEQ/L Potassium Level 4.7 MEQ/L 4.1 MEQ/L Chloride Level 101 MEQ/L 99 MEQ/L Carbon Dioxide Level 19.3 MEQ/L 25.0 MEQ/L Anion Gap 16 MEQ/L 14 MEQ/L Estimat Glomerular Filtration Rate 7 ML/MIN 9 ML/MIN Protein Corrected Calcium 7.6 MG/DL 8.0 MG/DL 11/03/16 11/03/16 11/04/16 14:59 22:59 06:59 Output Total 225 ml Balance -225 ml Output Urine Total 225 ml IMAGING: Renal Ultrasound 10/30/16 0000 Signed Impressions: Service Date/Time: October 08:13 - CONCLUSION: Unremarkable exam with no evidence of hydronephrosis. Wander Hodges MD Chest X-Ray 10/29/16 0000 Signed Impressions: Service Date/Time: Saturday, October 29, 2016 08:10 - CONCLUSION: No acute disease. Dion Marmolejo Jr., MD PHYSICAL EXAMINATION GENERAL: No acute distress. Awake and alert. HEENT: Pupils reactive to light. No icterus. Oropharynx moist mucosa without lesions. NECK: Supple, No adenopathy or swelling. LUNGS: Clear bilateral breath sounds. HEART: Irregular S1 and S2 without audible murmurs, rubs or gallops. ABDOMEN: Bowel sounds present, soft, and nontender. EXTREMITIES: No clubbing, cyanosis or edema. SKIN: No diffuse rash. NEUROLOGIC: No gross focal findings. PSYCHIATRIC: Calm and cooperative. IMPRESSION 1. Acute myelogenous leukemia with pancytopenia. Patient undergoing induction chemotherapy. 2. Febrile neutropenia. Negative cultures. Counts remain low. 3. Acute renal failure. 4. The One blood culture is contaminant. RECOMMENDATIONS 1. Continue Cefepime. 2. Continue vancomycin. Pharmacy to monitor the levels and dosage. 3. Continue Doxycycline. 4. Monitor temperature. 5. Monitor clinical status. Gene Hewitt MD Nov 04, 2016 12:06
[2016-11-04] MEDS: CEFEPIME 1000 MG/NS 100 ML IV SCH ×2 (12:52)
[2016-11-04] MEDS: FILGRASTIM 480 MCG/1.6 ML VIAL SQ SCH (12:53)
[2016-11-04] MEDS: SODIUM CHLOR 0.9% 1000 ML INJ 1,000 ML IV SCH (17:39)
[2016-11-05] VITALS (13 sets, daily range): BP systolic 137–155; BP diastolic 60–81; PULSE 68–102; RESP 16–20; TEMP 97.7–98.9; O2SAT 96–100
[2016-11-05] MEDS: SIMETHICONE 80 MG CHEWABLE TAB CHEW SCH ×5 (00:13→21:39)
[2016-11-05] MEDS: SODIUM CHLORIDE 0.9% FLUSH 10 ML FLUSH IV FLUSH SCH ×3 (00:14→21:41)
[2016-11-05] MEDS: DOXYCYCLINE HYCLATE 100 MG TAB PO SCH ×3 (00:14→21:39)
[2016-11-05] MEDS: DILTIAZEM HCL 30 MG TAB PO SCH ×5 (00:14→23:18)
[2016-11-05] MEDS: SODIUM CHLORIDE 0.9% FLUSH 10 ML FLUSH IVF SCH ×2 (00:14→12:12)
[2016-11-05] MEDS: SODIUM CHLORIDE 0.9% FLUSH 10 ML FLUSH IV FLUSH PRN ×2 (05:08)
[2016-11-05 07:02] LABS: MEAN CELL VOLUME 95.2 FL (80.0-100.0); MEAN CORPUSCULAR HEMOGLOBIN 32.2 PG (27.0-34.0); MEAN CORPUSCULAR HGB CONC 33.8 % (32.0-36.0); RED BLOOD COUNT 1.94 MIL/MM3 (4.50-5.90); RED CELL DISTRIBUTION WIDTH 18.4 % (11.6-17.2); WHITE BLOOD COUNT 0.1 TH/MM3 (4.0-11.0)
[2016-11-05 07:17] LABS: HEMO FLAGS AUTO DIFF
[2016-11-05 07:18] LABS: HEMATOCRIT 18.5 % (39.0-51.0); PLATELET COUNT 7 TH/MM3 (150-450)
[2016-11-05 07:27] LABS: BICARBONATE 22.7 MEQ/L (21.0-32.0); POTASSIUM 4.3 MEQ/L (3.5-5.1)
[2016-11-05 07:28] LABS: CALCIUM-PROTEIN CORRECTED 7.5 MG/DL (8.5-10.1); TOTAL BILIRUBIN ADULT 0.8 MG/DL (0.2-1.0)
[2016-11-05] MEDS ORDERED: SODIUM CHLOR 0.9% 250 ML INJ 250 ML IV ONE (07:30)
--- NOTE | 2016-11-05 07:35 | PD.ONC.PN ---
Subjective Subjective Remarks Patient seen and examined, vital signs, labs, medications, ins and outs/fluid balance reviewed. Subjectively; patient reports continued poor appetite and poor oral intake, his nausea is somewhat improved. He continues to feel breathless with minimal movement such as getting up from bed to go to the bathroom. He denies fevers or chills or overt bleeding. He is due for hemodialysis today. Objective Data Date Time Temp Pulse Resp B/P (MAP) Pulse Ox O2 Delivery O2 Flow Rate FiO2 11/05/16 05:06 98.2 76 18 139/65 (89) 99 11/05/16 04:02 68 11/05/16 00:15 79 11/05/16 00:11 98.8 70 20 141/63 (89) 98 11/04/16 20:12 77 11/04/16 20:00 98.7 75 18 146/64 (91) 96 11/04/16 16:00 97.5 75 18 142/60 (87) 98 11/04/16 12:00 97.9 77 18 141/65 (90) 98 11/04/16 08:55 97.4 79 18 138/64 (88) 99 Result Diagram: 11/05/1614 11/05/16 0514 Laboratory Results Laboratory Tests Test 11/05/16 05:14 White Blood Count 0.1 TH/MM3 Red Blood Count 1.94 MIL/MM3 Hemoglobin 6.2 GM/DL Hematocrit 18.5 % Mean Corpuscular Volume 95.2 FL Mean Corpuscular Hemoglobin 32.2 PG Mean Corpuscular Hemoglobin Concent 33.8 % Red Cell Distribution Width 18.4 % Platelet Count 7 TH/MM3 Mean Platelet Volume 8.3 FL CBC Comment AUTO DIFF Blood Urea Nitrogen 80 MG/DL Creatinine 7.49 MG/DL Random Glucose 79 MG/DL Total Protein 5.2 GM/DL Albumin 2.4 GM/DL Calcium Level 6.6 MG/DL Alkaline Phosphatase 35 U/L Aspartate Amino Transf (AST/SGOT) 13 U/L Alanine Aminotransferase (ALT/SGPT) 18 U/L Total Bilirubin 0.8 MG/DL Sodium Level 138 MEQ/L Potassium Level 4.3 MEQ/L Chloride Level 100 MEQ/L Carbon Dioxide Level 22.7 MEQ/L Anion Gap 15 MEQ/L Estimat Glomerular Filtration Rate 7 ML/MIN Protein Corrected Calcium 7.5 MG/DL Random Vancomycin Level 20.3 COMMENT Administered Medications Medications (Trade) Dose Ordered Sig/Daniel Route PRN Reason Start Time Stop Time Status Last Admin Dose Admin Sodium Chloride (NS Flush) 2 ml UNSCH PRN IV FLUSH FLUSH AFTER USING IV ACCESS 10/24/16 01:45 11/05/16 05:08 Sodium Chloride (NS Flush) 2 ml BID IV FLUSH 10/24/16 09:00 11/05/16 00:14 Doxycycline Hyclate (Vibratab) 100 mg Q12HR PO 10/24/16 09:00 11/05/16 00:14 Sodium Chloride (NS Flush) DAILY IVF 10/25/16 09:00 11/05/16 00:14 Heparin Sodium (Porcine) (Heparin Central Flush) DAILY IV FLUSH 10/25/16 09:00 10/26/16 08:01 Lactobacillus Acidophilus (Lactinex) 1 tab TID PO 10/24/16 18:00 11/04/16 17:41 Miscellaneous (Pill Splitter) 1 ea UNSCH PRN OTHER SEE LABEL COMMENTS 10/30/16 06:45 10/30/16 06:36 Sodium Chloride 1,000 ml @ 42 mls/hr [id number] IV 10/30/16 08:30 11/04/16 17:39 Bumetanide (Bumex Inj) 2 mg BID@09,18 IV PUSH 10/30/16 09:00 11/04/16 17:39 Sodium Chloride 1,000 ml @ 0 mls/hr Q0M PRN IV For Prime & Rinse Back 10/30/16 08:47 10/30/16 17:22 Sodium Chloride (NS Flush) 5 ml UNSCH PRN IV FLUSH WITH DIALYSIS 10/30/16 09:00 11/05/16 05:08 Gentamicin Sulfate (Gentamicin (Dialysis) Inj) 20 mg UNSCH PRN IV WITH DIALYSIS 10/30/16 09:00 10/31/16 12:44 Ondansetron HCl (Zofran Inj) 4 mg UNSCH PRN IV WITH DIALYSIS 10/30/16 09:00 11/03/16 23:59 Acetaminophen (Tylenol) 650 mg UNSCH PRN PO for headach, pain, temp > 101F 10/30/16 09:00 8/19/17 22:11 Diltiazem HCl (Cardizem) 30 mg Q6HR PO 10/30/16 12:00 11/05/16 05:18 Cefepime HCl 1000 mg/Sodium Chloride 100 ml @ 200 mls/hr Q24H IV 10/31/16 12:00 11/04/16 12:52 Filgrastim (Neupogen Inj) 480 mcg DAILY@14 SQ 10/31/16 14:00 11/04/16 12:53 Mupirocin (Bactroban 2% Oint) 1 applic Q12HR TOPICAL 11/01/16 21:00 11/02/16 21:00 Allopurinol (Zyloprim) 200 mg DAILY PO 11/02/16 09:00 11/04/16 08:37 Pantoprazole Sodium (Protonix) 20 mg DAILY PO 11/02/16 09:00 11/04/16 08:37 Sevelamer Carbonate (Renvela) 2,400 mg TIDAC PO 11/03/16 12:15 11/03/16 12:59 Simethicone (Mylicon Chew) 80 mg PCHS CHEW 11/04/16 10:30 11/05/16 00:13 Objective Remarks GENERAL APPEARANCE: Mr. Chou is an elderly male, he is tall and heavy-set, he has a very pleasant disposition and is in no acute distress. HEENT: Head atraumatic, normocephalic, conjunctivae are mildly pale. Sclerae are anicteric, EOMI, PERRLA, oral exam no pharyngeal erythema. NECK: No palpable cervical or supraclavicular lymphadenopathy. Right IJ Vas-Cath in place. RESPIRATORY: Good air movement bilaterally. No added breath sounds. CARDIOVASCULAR: Regular rate and rhythm, S1-S2. No obvious murmurs, gallops. ABDOMEN: Obese belly, soft, nontender, nondistended, no palpable organ enlargement, specifically no hepatosplenomegaly. EXTREMITIES: Lower extremities, positive for pretibial edema. No calf tenderness. PICC line in right arm. JAZ/LYMPH EXAMINATION: No cervical lymphadenopathy, no axillary lymphadenopathy and no inguinal lymphadenopathy. CAN RECONDITIONER: Exam without any abnormal findings specifically no motor or sensory deficits. 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 This is concerning to him as he is usually able to walk approximately 3-4 miles with no problems. His PCP advised that the go to the hospital for evaluation. 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 He was transferred to [place] for further workup and inpatient induction chemotherapy. Assessment 71-year-old male admitted for workup and induction chemotherapy for a diagnosis of B-cell acute lymphocytic leukemia Plan 1. Started chemotherapy with Rituxan + hyper-CVAD on 10/26/2016; given the CD 20 positivity of the B-cell ALL on Flow cytometry on bone marrow aspiration specimen. Await results of the [place] chromosome to determine if the patient may benefit from tyrosine kinase inhibitors. He is increasingly cytopenic, had neutropenic, anemic and from cytopenic. Neupogen started a dose of 480 g subcutaneous daily on 10/31/2016. Remains afebrile. Neutrophil count= 0. Continue daily CBCs; CBC from this morning is pending at this time. 11/05/2016: Transfuse 1 unit packed red blood cells and 1 unit of pooled platelets today. 2. TLS; with renal failure, elevated Uric acid, LDH and Phos. Started on hemodialysis on 10/30/2016, second treatment on 10/31/2016. Rasburicase given . continue renally dosed allopurinol. phosphorus remains elevated (on Renvela) . Status post rasburicase on 10/30/2016. Uric acid level and LDH levels are declining. 3. Continue supportive transfusions; daily CBCs. patient requires irradiated blood products. +CMV status. 4. Isolated Temps earlier this Week: On cefepime, vancomycin (on hold d/t high trough) and Doxycycline. one cx + s. epidermis (likely contaminant). CXR from 11.01 showed only bibasilar atelectasis. 5. AFib with RVR: rate controlled, appreciate cardiology input. 6. dyspepsia: started Protonix will start when necessary Zofran every 6 hours. Krystal,Sukhwinder MD Nov 05, 2016 07:35
[2016-11-05] MEDS: MUPIROCIN 2% OINT 22 GM TUBE TOPICAL SCH ×2 (09:00→21:00)
[2016-11-05 09:23] LABS: WBC DIFF SAMPLE 5
[2016-11-05 09:24] LABS: PLATELET ESTIMATE SMEAR RARE (NORMAL); PLATELET MORPHOLOGY NORMAL (NORMAL); SCAN/DIFF FINAL DIFF MANUAL
[2016-11-05] MEDS: ALLOPURINOL 100 MG TAB PO SCH (10:00)
[2016-11-05] MEDS: SEVELAMER CARBONATE 800 MG TAB PO SCH ×3 (10:00→17:58)
[2016-11-05] MEDS: PANTOPRAZOLE SOD 20 MG DELAYED RELEASE TAB PO SCH (10:01)
[2016-11-05] MEDS: LACTOBACILLUS ACIDOPHILUS TAB PO SCH ×3 (10:01→17:03)
[2016-11-05] MEDS: BUMETANIDE INJ 1 MG/4 ML VIAL IV PUSH SCH ×2 (10:01→17:04)
--- NOTE | 2016-11-05 10:22 | HHI.PR ---
Subjective Remarks patient clinically feeling better T down, no fever or chills stools soft, once a day, no blood gas sensation improved with Simethicone Objective Vitals Vital Signs Date Time Temp Pulse Resp B/P (MAP) Pulse Ox O2 Delivery O2 Flow Rate FiO2 11/05/16 08:21 92 11/05/16 08:00 97.7 86 16 147/60 (89) 99 11/05/16 05:06 98.2 76 18 139/65 (89) 99 11/05/16 04:02 68 11/05/16 00:15 79 11/05/16 00:11 98.8 70 20 141/63 (89) 98 11/04/16 20:12 77 11/04/16 20:00 98.7 75 18 146/64 (91) 96 11/04/16 16:00 97.5 75 18 142/60 (87) 98 11/04/16 12:00 97.9 77 18 141/65 (90) 98 I/O 11/04/16 11/04/16 11/04/16 11/05/16 11/05/16 11/05/16 06:59 14:59 22:59 06:59 14:59 22:59 Intake Total 375 ml 100 ml 480 ml Output Total 300 ml 100 ml 1100 ml 1100 ml Balance 75 ml 0 ml -620 ml -1100 ml Intake Oral 480 ml IV Total 375 ml 100 ml Output Urine Total 300 ml 100 ml 1100 ml 1100 ml Result Diagram: 11/05/16 0514 11/05/16 0514 Imaging Last Impressions Chest X-Ray 11/01/16 0000 Signed Impressions: Service Date/Time: Tuesday, November 01, 2016 14:05 - CONCLUSION: Bibasilar densities likely atelectasis. Neal Castro MD Catheter Placement X-Ray 10/30/16 0826 Signed Impressions: Service Date/Time: October 11:04 - CONCLUSION: Uncomplicated Vas-Cath placement as above. Matt Lassiter MD Renal Ultrasound 10/30/16 0000 Signed Impressions: Service Date/Time: October 08:13 - CONCLUSION: Unremarkable exam with no evidence of hydronephrosis. Wander Hodges MD Lumbar Puncture Fluoroscopy 10/27/16 0000 Signed Impressions: Service Date/Time: Thursday, October 27, 2016 12:19 - CONCLUSION: Uncomplicated fluoroscopically guided lumbar puncture with chemotherapy injection. Matt Lassiter MD PICC Line Insertion 10/24/16 0000 Signed Impressions: Service Date/Time: Monday, October 24, 2016 12:01 - CONCLUSION: 1. Uncomplicated central venous Power PICC line placement. 2. The PICC line can be used immediately. Serafin Saba MD Bone Biopsy CT 10/24/16 0000 Signed Impressions: Service Date/Time: Monday, October 24, 2016 16:09 - CONCLUSION: 1. Uncomplicated CT guided bone marrow aspirate. 2. Uncomplicated CT guided bone marrow biopsy. Balwinder Swenson MD Abdomen/Pelvis CT 10/24/16 0000 Signed Impressions: Service Date/Time: Monday, October 24, 2016 15:57 - CONCLUSION: 1. Hepatic steatosis. 2. No evidence of metastatic disease or suspicious mass. 3. Bilateral inguinal hernias. Triston Espinoza MD Objective Remarks awake alert anicteric VAS cath in place - right lungs no rales or wheezes regular rhythm abdomen- globularly soft, nontender extremities no edema neuro exam- unremarkable Procedures 10/24/16 PICC line placement 10/24/16 bone marrow biopsy 10/30/16 Vas-Cath placement Date of Insertion: Oct 24, 2016 Line: PICC A/P Problem List: (1) Pancytopenia ICD Code: D61.818 - Other pancytopenia Status: Acute (2) Pneumonia ICD Code: J18.9 - Pneumonia, unspecified organism Status: Acute (3) 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 On Allopurinol FAIZA secondary to TLS Appreciate oncology recommendations. Continue chemotherapy per oncology. ff electrolytes/renal functions ongoing hemodialysis. ff electrolytes. Nephrology ff. On IV Bumex q 12 New onset Atrial fibrillation with RVR on admission- now in SR. on Cardizem 30 mg po qid. . EF 55-60%. not on OAC- with pancytopenia Pneumonia: Continue cefepime, doxycycline . ID ff. Vancomycin with pharmacy dosing. Stable on room air. Pancytopenia: blood products transfusions per Oncology Thrombocytopenia- on Neupogen per Oncology. transfusions per Oncology Hypertension: Continue CCB. Vasotec IV as needed. Blood pressure control improved. with HD DVT prophylaxis: Jurgen, KRISTEN sauer. Gas sensation- trial of simethicone- will d/w pharmacy if will affect blood counts. on PPI Dietitian ff along with us patient clinically feeling better gradually.. Still requiring blood products transfusion per Oncology Continue hemodialysis. continue current antibiotics Renal functions stabilizing- requiring hemodialysis- initiated this admission Still neutropenic- but afebrile- continue on current antibiotics with ID ff closely along with Problem Qualifiers (1) Pneumonia: Minda Aquino MD Nov 05, 2016 10:22
--- NOTE | 2016-11-05 10:24 | HHI.NPPN ---
Subjective General Problems: Edema, Hypertension Renal Failure: Acute Interval History Worsening renal function and anemia. He is fatigued. Appetite fair. (Nava Cabral) Review of Systems General Constitutional: Fatigue (Nava Cabral) Respiratory Lungs: SOB (Nava Cabral) Cardiovascular Cardiac: Edema, YOUNGER (Nava Cabral) Gastrointestinal Gastrointestinal: Nausea & Vomiting (Nava Cabral) Objective Data Data 11/05/16 11/06/16 18:59 06:59 Output Total 1100 ml Balance -1100 ml Output Urine Total 1100 ml Vital Signs Date Time Temp Pulse Resp B/P (MAP) Pulse Ox O2 Delivery O2 Flow Rate FiO2 11/05/16 08:21 92 11/05/16 08:00 97.7 86 16 147/60 (89) 99 11/05/16 05:06 98.2 76 18 139/65 (89) 99 11/05/16 04:02 68 11/05/16 00:15 79 11/05/16 00:11 98.8 70 20 141/63 (89) 98 11/04/16 20:12 77 11/04/16 20:00 98.7 75 18 146/64 (91) 96 11/04/16 16:00 97.5 75 18 142/60 (87) 98 11/04/16 12:00 97.9 77 18 141/65 (90) 98 (Nava Cabral) -: 11/05/16 0514 11/05/16 0514 Imaging Last Impressions Chest X-Ray 11/01/16 0000 Signed Impressions: Service Date/Time: Tuesday, November 01, 2016 14:05 - CONCLUSION: Bibasilar densities likely atelectasis. Neal Castro MD Catheter Placement X-Ray 10/30/16 0826 Signed Impressions: Service Date/Time: October 11:04 - CONCLUSION: Uncomplicated Vas-Cath placement as above. Matt Lassiter MD Renal Ultrasound 10/30/16 0000 Signed Impressions: Service Date/Time: October 08:13 - CONCLUSION: Unremarkable exam with no evidence of hydronephrosis. Wander Hodges MD Lumbar Puncture Fluoroscopy 10/27/16 0000 Signed Impressions: Service Date/Time: Thursday, October 27, 2016 12:19 - CONCLUSION: Uncomplicated fluoroscopically guided lumbar puncture with chemotherapy injection. Matt Lassiter MD PICC Line Insertion 10/24/16 0000 Signed Impressions: Service Date/Time: Monday, October 24, 2016 12:01 - CONCLUSION: 1. Uncomplicated central venous Power PICC line placement. 2. The PICC line can be used immediately. Serafin Saba MD Bone Biopsy CT 10/24/16 0000 Signed Impressions: Service Date/Time: Monday, October 24, 2016 16:09 - CONCLUSION: 1. Uncomplicated CT guided bone marrow aspirate. 2. Uncomplicated CT guided bone marrow biopsy. Balwinder Swenson MD Abdomen/Pelvis CT 10/24/16 0000 Signed Impressions: Service Date/Time: Monday, October 24, 2016 15:57 - CONCLUSION: 1. Hepatic steatosis. 2. No evidence of metastatic disease or suspicious mass. 3. Bilateral inguinal hernias. Triston Espinoza MD Tubes & Lines: Vas-Cath (MariannaNava B. TRIAGE TECHNICIAN) Physical Exam General Appearance: Well Developed, Well Nourished, No Acute Distress, Comfortable (Marianna,Nava B. TRIAGE TECHNICIAN) Eyes Eye Exam: Pupils Equal (MariannaNava B. TRIAGE TECHNICIAN) Throat Throat Exam: Oral Mucosa [place] & Moist (Marianna,Nava B. TRIAGE TECHNICIAN) Neck Neck Exam: Neck Supple (Marianna,Nava B. TRIAGE TECHNICIAN) Pulmonary Resp Exam: Clear Bilaterally, Breath Sounds Equal (MariannaNava B. TRIAGE TECHNICIAN) Cardiology CV Exam: Normal Sinus Rhythm, Good Perfusion (MariannaNava B. TRIAGE TECHNICIAN) Gastrointestinal/Abdomen GI Exam: Soft, Non-Tender, Bowel Sounds Present (Marianna,Nava B. TRIAGE TECHNICIAN) Musculoskeletal MS Exam: Joints Intact, Normal Gait, Normal Tone (Marianna,Nava B. TRIAGE TECHNICIAN) Integumentary Skin Exam: Clear, Warm, Dry, Intact (Marianna,Nava B. TRIAGE TECHNICIAN) Extremeties Extremities Exam: Pedal Pulses Palpable, Moderate Edema (MariannaNava B. TRIAGE TECHNICIAN) Neurologic Neuro Exam: Alert, Awake, Oriented, Speech Clear, Moving All Extremities (Nava Cabral) Psychiatric Psych Exam: Appropriate Responses (Nava Cabral) Assessment/Plan Discussed Condition With: Patient Assessment Summary: FAIZA/Acute Renal Failure, Hypertension Electrolyte Assessment: Hypocalcemia Problem List: (1) Acute kidney injury ICD Codes: N17.9 - Acute kidney failure, unspecified Status: Acute Plan: He has normal renal function at baseline, FAIZA from Tumor lysis syndrome (with hypocalcemia, hyperphosphatemia, and hyperuricemia) Received rasburicase on 10/31 s/p vascath placement 10/30, HD initiated 10/31 Continue HD MWF as needed await renal recovery, obtain daily labs he is non oliguric, continue Bumex 2 mg IV BID Avoid bicarb drip, it is not recommended in this situation as it can promote deposition of phosphate containing stones. Monitor calcium, phosphorus, K, and uric acid Avoid nephrotoxic agents. 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 (3) Hyperphosphatemia ICD Codes: E83.39 - Other disorders of phosphorus metabolism Status: Acute Plan: He is on Renvela, follow phosphorus level (4) Hypocalcemia ICD Codes: E83.51 - Hypocalcemia Status: Acute Plan: follow serum calcium level Avoid IV calcium administration. Continue phosphate binders to treat hyperphosphatemia (5) Pancytopenia ICD Codes: D61.818 - Other pancytopenia Status: Acute Plan: ID and oncology following, he is neutropenic on cefepime monitor drug levels and renally dose medications if appropriate PRBC and pooled platelets ordered for transfusion 11/05 (Nava Cabral) Plan patient was seen and examined. Non oliguric, but no renal recovery. Dialysis again today. (Clay Galicia MD) Nava Cabral Nov 05, 2016 10:23 Clay Galicia MD Nov 05, 2016 20:15
[2016-11-05] MEDS: diphenhydrAMINE HCL 25 MG CAP PO PRN ×2 (12:11→17:02)
[2016-11-05] MEDS: ACETAMINOPHEN 325 MG TAB PO PRN ×2 (12:11→17:02)
--- NOTE | 2016-11-05 12:44 | HHI.IDPN ---
Note Infectious Disease Note Patient feels better. Feels more energetic. Slept well. Denies chills or nausea. Afebrile. No SOB. PAST MEDICAL HISTORY 1. Rheumatic fever 2. Removal of vocal polyps in his 20s. 3. Appendectomy ALLERGIES No drug allergies. MEDICATIONS 1. Vancomycin 2. Cefepime 3. Doxycycline OBJECTIVE: Vital Signs Date Time Temp Pulse Resp B/P (MAP) Pulse Ox O2 Delivery O2 Flow Rate FiO2 11/05/16 08:21 92 11/05/16 08:00 97.7 86 16 147/60 (89) 99 11/05/16 05:06 98.2 76 18 139/65 (89) 99 11/05/16 04:02 68 11/05/16 00:15 79 11/05/16 00:11 98.8 70 20 141/63 (89) 98 11/04/16 20:12 77 11/04/16 20:00 98.7 75 18 146/64 (91) 96 11/04/16 16:00 97.5 75 18 142/60 (87) 98 11/05/16 11/05/16 11/06/16 15:00 23:00 07:00 Output Total 1100 ml Balance -1100 ml Output Urine Total 1100 ml Laboratory Tests Test 11/04/16 03:55 11/05/16 05:14 White Blood Count 0.1 TH/MM3 0.1 TH/MM3 Red Blood Count 2.22 MIL/MM3 1.94 MIL/MM3 Hemoglobin 7.5 GM/DL 6.2 GM/DL Hematocrit 20.9 % 18.5 % Mean Corpuscular Volume 94.3 FL 95.2 FL Mean Corpuscular Hemoglobin 33.6 PG 32.2 PG Mean Corpuscular Hemoglobin Concent 35.6 % 33.8 % Red Cell Distribution Width 18.7 % 18.4 % Platelet Count 16 TH/MM3 7 TH/MM3 Mean Platelet Volume 8.3 FL 8.3 FL CBC Comment AUTO DIFF AUTO DIFF Differential Total Cells Counted 10 5 Neutrophils % (Manual) 10 % Lymphocytes % 90 % 100 % Neutrophils # (Manual) 0.0 TH/MM3 0.0 TH/MM3 Differential Comment FINAL DIFF MANUAL FINAL DIFF MANUAL Platelet Estimate LOW RARE Platelet Morphology Comment NORMAL NORMAL Tear Drop Cells 1+ Laboratory Tests Test 11/04/16 03:55 11/05/16 05:14 Blood Urea Nitrogen 72 MG/DL 80 MG/DL Creatinine 6.36 MG/DL 7.49 MG/DL Random Glucose 117 MG/DL 79 MG/DL Total Protein 5.6 GM/DL 5.2 GM/DL Calcium Level 7.2 MG/DL 6.6 MG/DL Sodium Level 138 MEQ/L 138 MEQ/L Potassium Level 4.1 MEQ/L 4.3 MEQ/L Chloride Level 99 MEQ/L 100 MEQ/L Carbon Dioxide Level 25.0 MEQ/L 22.7 MEQ/L Anion Gap 14 MEQ/L 15 MEQ/L Estimat Glomerular Filtration Rate 9 ML/MIN 7 ML/MIN Uric Acid 0.4 MG/DL Protein Corrected Calcium 8.0 MG/DL 7.5 MG/DL Phosphorus Level 6.4 MG/DL 7.3 MG/DL Magnesium Level 2.2 MG/DL Lactate Dehydrogenase 428 U/L Albumin 2.4 GM/DL Alkaline Phosphatase 35 U/L Aspartate Amino Transf (AST/SGOT) 13 U/L Alanine Aminotransferase (ALT/SGPT) 18 U/L Total Bilirubin 0.8 MG/DL IMAGING: Renal Ultrasound 10/30/16 0000 Signed Impressions: Service Date/Time: October 08:13 - CONCLUSION: Unremarkable exam with no evidence of hydronephrosis. Wander Hodges MD Chest X-Ray 10/29/16 0000 Signed Impressions: Service Date/Time: Saturday, October 29, 2016 08:10 - CONCLUSION: No acute disease. Dion Marmolejo Jr., MD PHYSICAL EXAMINATION GENERAL: No acute distress. Awake and alert. HEENT: No icterus. Oropharynx moist mucosa without lesions. NECK: Supple, No adenopathy or swelling. LUNGS: Clear breath sounds. HEART: S1 and S2 without audible murmurs, rubs or gallops. ABDOMEN: Bowel sounds present, soft, and nontender. EXTREMITIES: No clubbing, cyanosis or edema. SKIN: No diffuse rash. NEUROLOGIC: No gross focal findings. PSYCHIATRIC: Calm and cooperative. IMPRESSION 1. Acute myelogenous leukemia with pancytopenia. Patient post induction chemotherapy. 2. Febrile neutropenia. Negative cultures. Counts remain low. 3. Acute renal failure. 4. The One blood culture is contaminant. RECOMMENDATIONS 1. Continue Cefepime. 2. Continue vancomycin. Pharmacy to monitor the levels and dosage. 3. Continue Doxycycline. 4. Monitor temperature. 5. Monitor clinical status. Discussed with and RN. Gene Hewitt MD Nov 05, 2016 12:43
[2016-11-05] MEDS: GENTAMICIN SULFATE (DIALYSIS USE ONLY) 20 MG/2 ML VIAL IV PRN (15:42)
[2016-11-05] MEDS: SODIUM CHLOR 0.9% 1000 ML INJ 1,000 ML IV PRN (15:43)
[2016-11-05] MEDS: CEFEPIME 1000 MG/NS 100 ML IV SCH ×2 (17:03)
[2016-11-05] MEDS: FILGRASTIM 480 MCG/1.6 ML VIAL SQ SCH (17:11)
[2016-11-05] MEDS: SODIUM CHLOR 0.9% 1000 ML INJ 1,000 ML IV SCH (21:39)
[2016-11-06] VITALS (11 sets, daily range): BP systolic 115–152; BP diastolic 57–67; PULSE 66–89; RESP 17–22; TEMP 98.2–99.6; O2SAT 95–98
[2016-11-06] MEDS: ONDANSETRON HCL 4 MG/2 ML VIAL IV PUSH PRN ×3 (01:53→16:54)
[2016-11-06] MEDS: DILTIAZEM HCL 30 MG TAB PO SCH ×3 (05:30→17:00)
[2016-11-06 07:17] LABS: MEAN CELL VOLUME 93.5 FL (80.0-100.0); MEAN CORPUSCULAR HEMOGLOBIN 32.3 PG (27.0-34.0); MEAN CORPUSCULAR HGB CONC 34.6 % (32.0-36.0); RED BLOOD COUNT 2.18 MIL/MM3 (4.50-5.90); RED CELL DISTRIBUTION WIDTH 17.7 % (11.6-17.2); WHITE BLOOD COUNT 0.1 TH/MM3 (4.0-11.0)
--- NOTE | 2016-11-06 07:28 | PD.ONC.PN ---
Subjective Subjective Remarks Pt seen and examined, denies acute complaints of fevers, chills, chest pain, head ache, overt bleeding or difficulty breathing at rest. He tells me he ate a full dinner last night. There were no acute cardio- pulmonary events last night. Objective Data Date Time Temp Pulse Resp B/P (MAP) Pulse Ox O2 Delivery O2 Flow Rate FiO2 11/06/16 05:29 99.6 79 17 152/67 (95) 95 11/06/16 04:00 72 11/06/16 00:00 77 11/05/16 23:00 98.9 78 16 155/67 (96) 98 11/05/16 20:15 76 11/05/16 20:00 97.7 74 18 150/81 (104) 96 11/05/16 17:55 97.7 84 20 137/63 98 11/05/16 16:00 97.8 73 18 150/78 (102) 100 11/05/16 13:05 98.0 75 20 150/76 11/05/16 12:00 102 11/05/16 08:21 92 11/05/16 08:00 97.7 86 16 147/60 (89) 99 11/06/16 11/06/16 11/06/16 07:00 15:00 23:00 Intake Total 300 ml Output Total 500 ml Balance -200 ml Result Diagram: 11/05/1614 11/05/1614 Laboratory Results Laboratory Tests Test 11/06/16 05:35 Administered Medications Medications (Trade) Dose Ordered Sig/Daniel Route PRN Reason Start Time Stop Time Status Last Admin Dose Admin Sodium Chloride (NS Flush) 2 ml UNSCH PRN IV FLUSH FLUSH AFTER USING IV ACCESS 10/24/16 01:45 11/05/16 05:08 Sodium Chloride (NS Flush) 2 ml BID IV FLUSH 10/24/16 09:00 11/05/16 21:41 Doxycycline Hyclate (Vibratab) 100 mg Q12HR PO 10/24/16 09:00 11/05/16 21:39 Sodium Chloride (NS Flush) DAILY IVF 10/25/16 09:00 11/05/16 12:12 Heparin Sodium (Porcine) (Heparin Central Flush) DAILY IV FLUSH 10/25/16 09:00 10/26/16 08:01 Lactobacillus Acidophilus (Lactinex) 1 tab TID PO 10/24/16 18:00 11/05/16 17:03 Miscellaneous (Pill Splitter) 1 ea UNSCH PRN OTHER SEE LABEL COMMENTS 10/30/16 06:45 10/30/16 06:36 Sodium Chloride 1,000 ml @ 42 mls/hr [id number] IV 10/30/16 08:30 11/05/16 21:39 Bumetanide (Bumex Inj) 2 mg BID@18 IV PUSH 10/30/16 09:00 11/05/16 17:04 Sodium Chloride 1,000 ml @ 0 mls/hr Q0M PRN IV For Prime & Rinse Back 10/30/16 08:47 11/05/16 15:43 Sodium Chloride (NS Flush) 5 ml UNSCH PRN IV FLUSH WITH DIALYSIS 10/30/16 09:00 11/05/16 05:08 Gentamicin Sulfate (Gentamicin (Dialysis) Inj) 20 mg UNSCH PRN IV WITH DIALYSIS 10/30/16 09:00 11/05/16 15:42 Ondansetron HCl (Zofran Inj) 4 mg UNSCH PRN IV WITH DIALYSIS 10/30/16 09:00 11/03/16 23:59 Acetaminophen (Tylenol) 650 mg UNSCH PRN PO for headach, pain, temp > 101F 10/30/16 09:00 11/01/16 22:11 Diltiazem HCl (Cardizem) 30 mg Q6HR PO 10/30/16 12:00 11/06/16 05:30 Cefepime HCl 1000 mg/Sodium Chloride 100 ml @ 200 mls/hr Q24H IV 10/31/16 12:00 11/05/16 17:03 Filgrastim (Neupogen Inj) 480 mcg DAILY@14 SQ 10/31/16 14:00 11/05/16 17:11 Mupirocin (Bactroban 2% Oint) 1 applic Q12HR TOPICAL 11/01/16 21:00 11/02/16 21:00 Allopurinol (Zyloprim) 200 mg DAILY PO 11/02/16 09:00 11/05/16 10:00 Pantoprazole Sodium (Protonix) 20 mg DAILY PO 11/02/16 09:00 11/05/16 10:01 Sevelamer Carbonate (Renvela) 2,400 mg TIDAC PO 11/03/16 12:15 11/05/16 17:58 Ondansetron HCl (Zofran Inj) 4 mg Q6H PRN IV PUSH nausea 11/04/16 08:45 11/06/16 01:53 Simethicone (Mylicon Chew) 80 mg PCHS CHEW 11/04/16 10:30 11/05/16 21:39 Objective Remarks GENERAL APPEARANCE: Mr. Chou is an elderly male, he is tall and heavy-set, he has a very pleasant disposition and is in no acute distress. HEENT: Head atraumatic, normocephalic, conjunctivae are mildly pale. Sclerae are anicteric, EOMI, PERRLA, oral exam no pharyngeal erythema. NECK: No palpable cervical or supraclavicular lymphadenopathy. Right IJ Vas-Cath in place. RESPIRATORY: Good air movement bilaterally. No added breath sounds. CARDIOVASCULAR: Regular rate and rhythm, S1-S2. No obvious murmurs, gallops. ABDOMEN: Obese belly, soft, nontender, nondistended, no palpable organ enlargement, specifically no hepatosplenomegaly. EXTREMITIES: Lower extremities, positive for pretibial edema. No calf tenderness. PICC line in right arm. JAZ/LYMPH EXAMINATION: No cervical lymphadenopathy, no axillary lymphadenopathy and no inguinal lymphadenopathy. 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 This is concerning to him as he is usually able to walk approximately 3-4 miles with no problems. His PCP advised that the go to the hospital for evaluation. 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 He was transferred to [place] for further workup and inpatient induction chemotherapy. Assessment 71-year-old male admitted for workup and induction chemotherapy for a diagnosis of B-cell acute lymphocytic leukemia Plan 1. Started chemotherapy with Rituxan + hyper-CVAD on 10/26/2016; given the CD 20 positivity of the B-cell ALL on Flow cytometry on bone marrow aspiration specimen. Await results of the [place] chromosome to determine if the patient may benefit from tyrosine kinase inhibitors. He is increasingly cytopenic, had neutropenic, anemic and from cytopenic. Neupogen started a dose of 480 g subcutaneous daily on 10/31/2016. Remains afebrile. Neutrophil count= 0. Continue daily CBCs; CBC from this morning is pending at this time. 11/05/2016: Transfuse 1 unit packed red blood cells and 1 unit of pooled platelets today. 2. TLS; with renal failure, elevated Uric acid, LDH and Phos. Started on hemodialysis on 10/30/2016, second treatment on 10/31/2016. Rasburicase given . continue renally dosed allopurinol. phosphorus remains elevated (on Renvela) . Status post rasburicase on 10/30/2016. Uric acid level and LDH levels are declining. Meds have had doses adjusted to renal function. 3. Continue supportive transfusions; daily CBCs. patient requires irradiated blood products. +CMV status. 4. Isolated Temps earlier this Week: On cefepime, vancomycin (on hold d/t high trough) and Doxycycline. one cx + s. epidermis (likely contaminant). CXR from 11.01 showed only bibasilar atelectasis. 5. AFib with RVR: rate controlled, appreciate cardiology input. 6. Dyspepsia: started Protonix will start when necessary Zofran every 6 hours. Sukhwinder Rice MD Nov 06, 2016 07:28
[2016-11-06 07:30] LABS: HEMO FLAGS AUTO DIFF
[2016-11-06 07:36] LABS: HEMATOCRIT 20.4 % (39.0-51.0); PLATELET COUNT 13 TH/MM3 (150-450)
[2016-11-06 07:41] LABS: BICARBONATE 25.3 MEQ/L (21.0-32.0); POTASSIUM 4.2 MEQ/L (3.5-5.1)
[2016-11-06] MEDS: SEVELAMER CARBONATE 800 MG TAB PO SCH ×3 (08:00→17:00)
--- NOTE | 2016-11-06 08:16 | HHI.PR ---
Subjective Remarks feeling better each day po improved - had a big pork loin no nausea or vomiting, no abdominal pain Objective Vitals Vital Signs Date Time Temp Pulse Resp B/P (MAP) Pulse Ox O2 Delivery O2 Flow Rate FiO2 11/06/16 07:39 89 11/06/16 05:29 99.6 79 17 152/67 (95) 95 11/06/16 04:00 72 11/06/16 00:00 77 11/05/16 23:00 98.9 78 16 155/67 (96) 98 11/05/16 20:15 76 11/05/16 20:00 97.7 74 18 150/81 (104) 96 11/05/16 17:55 97.7 84 20 137/63 98 11/05/16 16:00 97.8 73 18 150/78 (102) 100 11/05/16 13:05 98.0 75 20 150/76 11/05/16 12:00 102 11/05/16 08:21 92 I/O 11/05/16 11/05/16 11/05/16 11/06/16 11/06/16 11/06/16 07:00 15:00 23:00 07:00 15:00 23:00 Intake Total 250 ml 484 ml 300 ml Output Total 1100 ml 500 ml Balance -850 ml 484 ml -200 ml IV Total 100 ml 300 ml Packed Cells 250 ml Platelets 384 ml Output Urine Total 1100 ml 500 ml Result Diagram: 11/06/16 0535 11/06/16 0535 Imaging Last Impressions Chest X-Ray 11/01/16 0000 Signed Impressions: Service Date/Time: Tuesday, November 01, 2016 14:05 - CONCLUSION: Bibasilar densities likely atelectasis. Neal Castro MD Catheter Placement X-Ray 10/30/16 0826 Signed Impressions: Service Date/Time: October 11:04 - CONCLUSION: Uncomplicated Vas-Cath placement as above. Matt Lassiter MD Renal Ultrasound 10/30/16 0000 Signed Impressions: Service Date/Time: October 08:13 - CONCLUSION: Unremarkable exam with no evidence of hydronephrosis. Wander Hodges MD Lumbar Puncture Fluoroscopy 10/27/16 0000 Signed Impressions: Service Date/Time: Thursday, October 27, 2016 12:19 - CONCLUSION: Uncomplicated fluoroscopically guided lumbar puncture with chemotherapy injection. Matt Lassiter MD PICC Line Insertion 10/24/16 0000 Signed Impressions: Service Date/Time: Monday, October 24, 2016 12:01 - CONCLUSION: 1. Uncomplicated central venous Power PICC line placement. 2. The PICC line can be used immediately. Serafin Saba MD Bone Biopsy CT 10/24/16 0000 Signed Impressions: Service Date/Time: Monday, October 24, 2016 16:09 - CONCLUSION: 1. Uncomplicated CT guided bone marrow aspirate. 2. Uncomplicated CT guided bone marrow biopsy. Balwinder Swenson MD Abdomen/Pelvis CT 10/24/16 0000 Signed Impressions: Service Date/Time: Monday, October 24, 2016 15:57 - CONCLUSION: 1. Hepatic steatosis. 2. No evidence of metastatic disease or suspicious mass. 3. Bilateral inguinal hernias. Triston Espinoza MD Objective Remarks awake alert, no acute distress anicteric VAS cath in place - right lungs no rales or wheezes regular rhythm abdomen- globularly soft, nontender low back area- fading ecchymosis- quarter size extremities no edema neuro exam- unremarkable Procedures 10/24/16 PICC line placement 10/24/16 bone marrow biopsy 10/30/16 Vas-Cath placement Date of Insertion: Oct 24, 2016 Line: PICC A/P Problem List: (1) Pancytopenia ICD Code: D61.818 - Other pancytopenia Status: Acute (2) Pneumonia ICD Code: J18.9 - Pneumonia, unspecified organism Status: Acute (3) 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 On Allopurinol FAIZA secondary to TLS Appreciate oncology recommendations. Continue chemotherapy per oncology. ff electrolytes/renal functions ongoing hemodialysis. ff electrolytes. Nephrology ff. On IV Bumex per nephrology New onset Atrial fibrillation with RVR on admission- now in SR. on Cardizem 30 mg po qid. . EF 55-60%. not on OAC- with pancytopenia Pneumonia: Continue cefepime, doxycycline . ID ff. Vancomycin with pharmacy dosing. Stable on room air. Pancytopenia: blood products transfusions per Oncology Thrombocytopenia- on Neupogen per Oncology. transfusions per Oncology Hypertension: Continue CCB. Vasotec IV as needed. Blood pressure control improved. with HD DVT prophylaxis: SCDs, KRISTEN sauer. Gas sensation- trial of simethicone- will d/w pharmacy if will affect blood counts. on PPI Dietitian ff along with us patient clinically improving gradually.. Still requiring blood products transfusion per Oncology Continue hemodialysis. continue current antibiotics Renal functions stabilizing- requiring hemodialysis- had HD 11/05 Still neutropenic- but afebrile- continue on current antibiotics with ID ff closely along with Problem Qualifiers (1) Pneumonia: Minda Aquino MD Nov 06, 2016 08:16
[2016-11-06] MEDS: SIMETHICONE 80 MG CHEWABLE TAB CHEW SCH ×4 (08:21→21:28)
[2016-11-06] MEDS: PANTOPRAZOLE SOD 20 MG DELAYED RELEASE TAB PO SCH (08:21)
[2016-11-06] MEDS: LACTOBACILLUS ACIDOPHILUS TAB PO SCH ×3 (08:21→17:00)
[2016-11-06] MEDS: ALLOPURINOL 100 MG TAB PO SCH (08:21)
[2016-11-06] MEDS: DOXYCYCLINE HYCLATE 100 MG TAB PO SCH ×2 (08:21→21:28)
[2016-11-06] MEDS: BUMETANIDE INJ 1 MG/4 ML VIAL IV PUSH SCH ×2 (08:22→17:00)
[2016-11-06] MEDS: MUPIROCIN 2% OINT 22 GM TUBE TOPICAL SCH ×2 (08:33→21:00)
[2016-11-06] MEDS: SODIUM CHLORIDE 0.9% FLUSH 10 ML FLUSH IV FLUSH SCH ×2 (08:33→21:29)
[2016-11-06] MEDS: SODIUM CHLORIDE 0.9% FLUSH 10 ML FLUSH IVF SCH (08:33)
[2016-11-06 09:51] LABS: PLATELET ESTIMATE SMEAR RARE (NORMAL); PLATELET MORPHOLOGY NORMAL (NORMAL); SCAN/DIFF FINAL DIFF MANUAL; WBC DIFF SAMPLE 10
[2016-11-06] MEDS ORDERED: VANCOMYCIN 1,000 MG/NS 250 ML IV ONE ×2 (11:00)
[2016-11-06] MEDS: FILGRASTIM 480 MCG/1.6 ML VIAL SQ SCH (13:01)
[2016-11-06] MEDS: CEFEPIME 1000 MG/NS 100 ML IV SCH ×2 (13:02)
--- NOTE | 2016-11-06 19:33 | HHI.NPPN ---
Subjective General Problems: Edema, Hypertension Renal Failure: Acute History of Present Illness was diagnosed with PE and mediastinal lymphadenopathy at [facility]. He is now diagnosed with acute lymphoblastic leukemia. He is now in [place], started on chemotherapy. Creatinine was 0.98 until 14th of this month, then develop FAIZA and started on HD. Additional Remarks Patient is alert, complain of loose BM, no abd. pain, no SOB. Review of Systems General Constitutional: Fatigue Respiratory Lungs: SOB Cardiovascular Cardiac: Edema, YOUNGER Gastrointestinal Gastrointestinal: Nausea & Vomiting Objective Data Data 11/06/16 11/07/16 19:00 07:00 Intake Total 1252 ml Balance 1252 ml Intake Oral 480 ml IV Total 772 ml # Voids 3 # Bowel Movements 2 Vital Signs Date Time Temp Pulse Resp B/P (MAP) Pulse Ox O2 Delivery O2 Flow Rate FiO2 11/06/16 16:25 98.3 73 21 152/67 (95) 98 11/06/16 16:00 89 11/06/16 12:48 98.2 83 22 136/60 (85) 97 11/06/16 12:00 72 11/06/16 10:30 98.3 89 20 115/57 (76) 98 11/06/16 08:00 98.5 66 20 140/67 (91) 98 11/06/16 07:39 89 11/06/16 05:29 99.6 79 17 152/67 (95) 95 11/06/16 04:00 72 11/06/16 00:00 77 11/05/16 23:00 98.9 78 16 155/67 (96) 98 11/05/16 20:15 76 11/05/16 20:00 97.7 74 18 150/81 (104) 96 -: 11/06/16 0535 11/06/16 0535 Tubes & Lines: Vas-Cath Physical Exam General Appearance: Well Developed, Well Nourished, No Acute Distress, Comfortable Eyes Eye Exam: Pupils Equal Throat Throat Exam: Oral Mucosa [place] & Moist Neck Neck Exam: Neck Supple Pulmonary Resp Exam: Clear Bilaterally, Breath Sounds Equal Cardiology CV Exam: Normal Sinus Rhythm, Good Perfusion Gastrointestinal/Abdomen GI Exam: Soft, Non-Tender, Bowel Sounds Present Musculoskeletal MS Exam: Joints Intact, Normal Gait, Normal Tone Integumentary Skin Exam: Clear, Warm, Dry, Intact Extremeties Extremities Exam: Moderate Edema Neurologic Neuro Exam: Alert, Awake, Oriented Assessment/Plan Discussed Condition With: Patient Assessment Summary: FAIZA/Acute Renal Failure, Hypertension Electrolyte Assessment: Hypocalcemia Problem List: (1) Acute kidney injury ICD Codes: N17.9 - Acute kidney failure, unspecified Status: Acute Plan: He has normal renal function at baseline, FAIZA from Tumor lysis syndrome (with hypocalcemia, hyperphosphatemia, and hyperuricemia) Received rasburicase on 10/31 s/p vascath placement 10/30, HD initiated 10/31 Continue HD MWF as needed await renal recovery, obtain daily labs he is non oliguric, continue Bumex 2 mg IV BID Monitor calcium, phosphorus, K, and uric acid Avoid nephrotoxic agents. HD will be in AM again. 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 (3) Hyperphosphatemia ICD Codes: E83.39 - Other disorders of phosphorus metabolism Status: Acute Plan: He is on Renvela, follow phosphorus level (4) Hypocalcemia ICD Codes: E83.51 - Hypocalcemia Status: Acute Plan: follow serum calcium level Avoid IV calcium administration. Continue phosphate binders to treat hyperphosphatemia (5) Pancytopenia ICD Codes: D61.818 - Other pancytopenia Status: Acute Plan: ID and oncology following, he is neutropenic on cefepime monitor drug levels and renally dose medications if appropriate PRBC and pooled platelets ordered for transfusion 11/05 Caity Jones MD Nov 06, 2016 19:33
[2016-11-06] MEDS: SODIUM CHLOR 0.9% 1000 ML INJ 1,000 ML IV SCH (21:31)
[2016-11-06 22:32] LABS: C. DIFF EPI 027 PRESUMPTIVE NEGATIVE (NEGATIVE)
[2016-11-07] VITALS (11 sets, daily range): BP systolic 133–169; BP diastolic 61–84; PULSE 59–89; RESP 18–20; TEMP 97.6–99.6; O2SAT 95–98
[2016-11-07] MEDS: DILTIAZEM HCL 30 MG TAB PO SCH ×5 (00:06→23:16)
[2016-11-07] MEDS: SODIUM CHLOR 0.9% 1000 ML INJ 1,000 ML IV SCH (07:02)
[2016-11-07 07:03] LABS: MEAN CORPUSCULAR HEMOGLOBIN 31.5 PG (27.0-34.0); MEAN CORPUSCULAR HGB CONC 33.6 % (32.0-36.0); RED BLOOD COUNT 2.02 MIL/MM3 (4.50-5.90); RED CELL DISTRIBUTION WIDTH 17.5 % (11.6-17.2)
[2016-11-07 07:16] LABS: HEMO FLAGS AUTO DIFF
[2016-11-07 07:19] LABS: PLATELET COUNT 7 TH/MM3 (150-450)
--- NOTE | 2016-11-07 07:21 | PD.ONC.PN ---
Subjective Subjective Remarks Patient seen and examined, vital signs, medications, laboratory findings and jd edwards consultant reports reviewed. Subjectively; patient reports having had a difficult day yesterday, he had multiple episodes of semisolid formed stools yesterday, he estimates about 5 bowel movements over the course of the day and night. He continues to urinate, and has been getting up out of bed to get to the restroom and sitting up on the chair. His appetite is poor and he was only able to take down to bottles of ensure and a milkshake yesterday. He is scheduled to undergo hemodialysis later today. Objective Data Date Time Temp Pulse Resp B/P (MAP) Pulse Ox O2 Delivery O2 Flow Rate FiO2 11/07/16 04:00 71 11/07/16 04:00 99.5 78 18 146/61 (89) 98 11/07/16 00:00 85 11/07/16 00:00 99.3 81 19 153/69 (97) 97 11/06/16 20:00 99.1 83 19 143/64 (90) 98 11/06/16 20:00 73 11/06/16 16:25 98.3 73 21 152/67 (95) 98 11/06/16 16:00 89 11/06/16 12:48 98.2 83 22 136/60 (85) 97 11/06/16 12:00 72 11/06/16 10:30 98.3 89 20 115/57 (76) 98 11/06/16 08:00 98.5 66 20 140/67 (91) 98 11/06/16 07:39 89 11/07/16 11/07/16 11/07/16 06:59 14:59 22:59 Intake Total 720 ml Balance 720 ml Result Diagram: 11/06/16 0535 11/06/16 0535 Laboratory Results Laboratory Tests Test 11/06/16 17:30 11/07/16 06:25 Stool C. difficile Toxin (PCR) NEGATIVE Stl C. difficile Toxin Epiderm 027 PRESUMPTIVE NEGATIVE Administered Medications Medications (Trade) Dose Ordered Sig/Daniel Route PRN Reason Start Time Stop Time Status Last Admin Dose Admin Sodium Chloride (NS Flush) 2 ml UNSCH PRN IV FLUSH FLUSH AFTER USING IV ACCESS 10/24/16 01:45 11/05/16 05:08 Sodium Chloride (NS Flush) 2 ml BID IV FLUSH 10/24/16 09:00 11/06/16 21:29 Doxycycline Hyclate (Vibratab) 100 mg Q12HR PO 10/24/16 09:00 11/06/16 21:28 Sodium Chloride (NS Flush) DAILY IVF 10/25/16 09:00 11/05/16 12:12 Heparin Sodium (Porcine) (Heparin Central Flush) DAILY IV FLUSH 10/25/16 09:00 10/26/16 08:01 Lactobacillus Acidophilus (Lactinex) 1 tab TID PO 10/24/16 18:00 11/06/16 17:00 Miscellaneous (Pill Splitter) 1 ea UNSCH PRN OTHER SEE LABEL COMMENTS 10/30/16 06:45 10/30/16 06:36 Sodium Chloride 1,000 ml @ 42 mls/hr [id number] IV 10/30/16 08:30 11/06/16 21:31 Bumetanide (Bumex Inj) 2 mg BID@ IV PUSH 10/30/16 09:00 11/06/16 17:00 Sodium Chloride 1,000 ml @ 0 mls/hr Q0M PRN IV For Prime & Rinse Back 10/30/16 08:47 11/05/16 15:43 Sodium Chloride (NS Flush) 5 ml UNSCH PRN IV FLUSH WITH DIALYSIS 10/30/16 09:00 11/05/16 05:08 Gentamicin Sulfate (Gentamicin (Dialysis) Inj) 20 mg UNSCH PRN IV WITH DIALYSIS 10/30/16 09:00 11/05/16 15:42 Ondansetron HCl (Zofran Inj) 4 mg UNSCH PRN IV WITH DIALYSIS 10/30/16 09:00 11/03/16 23:59 Acetaminophen (Tylenol) 650 mg UNSCH PRN PO for headach, pain, temp > 101F 10/30/16 09:00 11/01/16 22:11 Diltiazem HCl (Cardizem) 30 mg Q6HR PO 10/30/16 12:00 11/07/16 06:22 Cefepime HCl 1000 mg/Sodium Chloride 100 ml @ 200 mls/hr Q24H IV 10/31/16 12:00 11/06/16 13:02 Filgrastim (Neupogen Inj) 480 mcg DAILY@14 SQ 10/31/16 14:00 11/06/16 13:01 Mupirocin (Bactroban 2% Oint) 1 applic Q12HR TOPICAL 11/01/16 21:00 11/02/16 21:00 Allopurinol (Zyloprim) 200 mg DAILY PO 11/02/16 09:00 11/06/16 08:21 Pantoprazole Sodium (Protonix) 20 mg DAILY PO 11/02/16 09:00 11/06/16 08:21 Sevelamer Carbonate (Renvela) 2,400 mg TIDAC PO 11/03/16 12:15 11/05/16 17:58 Ondansetron HCl (Zofran Inj) 4 mg Q6H PRN IV PUSH nausea 11/04/16 08:45 11/06/16 16:54 Simethicone (Mylicon Chew) 80 mg PCHS CHEW 11/04/16 10:30 11/06/16 21:28 Objective Remarks GENERAL APPEARANCE: Mr. Chou is an elderly male, he is tall and heavy-set, he has a very pleasant disposition and is in no acute distress. HEENT: Head atraumatic, normocephalic, conjunctivae are mildly pale. Sclerae are anicteric, EOMI, PERRLA, oral exam no pharyngeal erythema. NECK: No palpable cervical or supraclavicular lymphadenopathy. Right IJ Vas-Cath in place. RESPIRATORY: Good air movement bilaterally. No added breath sounds. CARDIOVASCULAR: Regular rate and rhythm, S1-S2. No obvious murmurs, gallops. ABDOMEN: Obese belly, soft, nontender, nondistended, no palpable organ enlargement, specifically no hepatosplenomegaly. EXTREMITIES: Lower extremities, positive for pretibial edema. No calf tenderness. PICC line in right arm. JAZ/LYMPH EXAMINATION: No cervical lymphadenopathy, no axillary lymphadenopathy and no inguinal lymphadenopathy. 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 This is concerning to him as he is usually able to walk approximately 3-4 miles with no problems. His PCP advised that the go to the hospital for evaluation. 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 He was transferred to [place] for further workup and inpatient induction chemotherapy. Assessment 71-year-old male admitted for workup and induction chemotherapy for a diagnosis of B-cell acute lymphocytic leukemia Plan 1. Started chemotherapy with Rituxan + hyper-CVAD on 10/26/2016; given the CD 20 positivity of the B-cell ALL on Flow cytometry on bone marrow aspiration specimen. Await results of the [place] chromosome to determine if the patient may benefit from tyrosine kinase inhibitors. He is increasingly cytopenic, had neutropenic, anemic and from cytopenic. Neupogen started a dose of 480 g subcutaneous daily on 10/31/2016. Remains afebrile. Neutrophil count= 0. Continue daily CBCs; CBC from this morning is pending at this time. 11/05/2016: Transfuse 1 unit packed red blood cells and 1 unit of pooled platelets today. : Await results of CBC, transfuse today following hemodialysis if transfusion indicated. 2. TLS; with renal failure, elevated Uric acid, LDH and Phos. Started on hemodialysis on 10/30/2016, second treatment on 10/31/2016. Rasburicase given . continue renally dosed allopurinol. phosphorus remains elevated (on Renvela) . Status post rasburicase on 10/30/2016. Uric acid level and LDH levels are declining. Meds have had doses adjusted to renal function. 3. Continue supportive transfusions; daily CBCs. patient requires irradiated blood products. +CMV status. 4. Isolated Temps earlier this Week: On cefepime, vancomycin (on hold d/t high trough) and Doxycycline. one cx + s. epidermis (likely contaminant). CXR from 11.01 showed only bibasilar atelectasis. 5. AFib with RVR: rate controlled, appreciate cardiology input. 6. Dyspepsia: started Protonix will start when necessary Zofran every 6 hours. Sukhwinder Rice MD Nov 07, 2016 07:21
[2016-11-07] MEDS ORDERED: SODIUM CHLOR 0.9% 250 ML INJ 250 ML IV ONE (07:30)
[2016-11-07 07:31] LABS: BICARBONATE 25.2 MEQ/L (21.0-32.0); POTASSIUM 3.8 MEQ/L (3.5-5.1)
[2016-11-07] MEDS: SEVELAMER CARBONATE 800 MG TAB PO SCH ×3 (08:00→16:19)
[2016-11-07 08:07] LABS: WBC DIFF SAMPLE 5
[2016-11-07 08:10] LABS: PLATELET ESTIMATE SMEAR RARE (NORMAL); PLATELET MORPHOLOGY NORMAL (NORMAL); SCAN/DIFF FINAL DIFF MANUAL
[2016-11-07] MEDS: LACTOBACILLUS ACIDOPHILUS TAB PO SCH ×3 (08:15→16:19)
[2016-11-07] MEDS: BUMETANIDE INJ 1 MG/4 ML VIAL IV PUSH SCH ×2 (08:25→18:23)
[2016-11-07] MEDS: SIMETHICONE 80 MG CHEWABLE TAB CHEW SCH ×4 (08:28→20:14)
[2016-11-07] MEDS: SODIUM CHLORIDE 0.9% FLUSH 10 ML FLUSH IVF SCH (09:00)
[2016-11-07] MEDS: MUPIROCIN 2% OINT 22 GM TUBE TOPICAL SCH ×2 (09:00→20:17)
[2016-11-07] MEDS: SODIUM CHLORIDE 0.9% FLUSH 10 ML FLUSH IV FLUSH SCH ×2 (09:00→20:15)
[2016-11-07] MEDS: diphenhydrAMINE HCL 25 MG CAP PO PRN ×2 (09:30→16:52)
[2016-11-07] MEDS: ACETAMINOPHEN 325 MG TAB PO PRN ×4 (09:30→23:21)
[2016-11-07] MEDS: HEPARIN SODIUM - IV 10,000 UNITS/10 ML VIAL PRN (10:47)
[2016-11-07] MEDS: SODIUM CHLOR 0.9% 1000 ML INJ 1,000 ML IV PRN (10:47)
[2016-11-07] MEDS: GENTAMICIN SULFATE (DIALYSIS USE ONLY) 20 MG/2 ML VIAL IV PRN (10:47)
[2016-11-07] MEDS ORDERED: VANCOMYCIN 1,000 MG/NS 250 ML IV ONE ×2 (12:00)
[2016-11-07] MEDS: ALLOPURINOL 100 MG TAB PO SCH (13:14)
[2016-11-07] MEDS: DOXYCYCLINE HYCLATE 100 MG TAB PO SCH ×2 (13:14→20:15)
[2016-11-07] MEDS: PANTOPRAZOLE SOD 20 MG DELAYED RELEASE TAB PO SCH ×2 (13:14→20:14)
[2016-11-07] MEDS: FILGRASTIM 480 MCG/1.6 ML VIAL SQ SCH (13:15)
[2016-11-07] MEDS: CEFEPIME 1000 MG/NS 100 ML IV SCH ×2 (13:16)
--- NOTE | 2016-11-07 13:55 | HHI.IDPN ---
Note Infectious Disease Note Patient feels okay Having diarrhea last couple of days. C. diff toxin negative. Get SOB with activity. Denies chills or nausea. Afebrile. PAST MEDICAL HISTORY 1. Rheumatic fever 2. Removal of vocal polyps in his 20s. 3. Appendectomy ALLERGIES No drug allergies. MEDICATIONS 1. Vancomycin 2. Cefepime 3. Doxycycline OBJECTIVE: Vital Signs Date Time Temp Pulse Resp B/P (MAP) Pulse Ox O2 Delivery O2 Flow Rate FiO2 11/07/16 13:00 97.8 89 20 156/69 (98) 96 11/07/16 10:31 98.7 59 18 149/84 11/07/16 10:00 98.7 69 20 140/77 11/07/16 08:00 97.6 72 18 133/68 (89) 97 11/07/16 04:00 71 11/07/16 04:00 99.5 78 18 146/61 (89) 98 11/07/16 00:00 85 11/07/16 00:00 99.3 81 19 153/69 (97) 97 11/06/16 20:00 99.1 83 19 143/64 (90) 98 11/06/16 20:00 73 11/06/16 16:25 98.3 73 21 152/67 (95) 98 11/06/16 16:00 89 11/07/16 11/07/16 11/08/16 15:00 23:00 07:00 Intake Total 500 ml Output Total 3000 ml Balance -2500 ml Packed Cells 500 ml Hemodialysis 3000 ml # Voids 1 Laboratory Tests Test 11/06/16 05:35 11/07/16 06:25 White Blood Count 0.1 TH/MM3 0.0 TH/MM3 Red Blood Count 2.18 MIL/MM3 2.02 MIL/MM3 Hemoglobin 7.0 GM/DL 6.4 GM/DL Hematocrit 20.4 % 19.0 % Mean Corpuscular Volume 93.5 FL 94.0 FL Mean Corpuscular Hemoglobin 32.3 PG 31.5 PG Mean Corpuscular Hemoglobin Concent 34.6 % 33.6 % Red Cell Distribution Width 17.7 % 17.5 % Platelet Count 13 TH/MM3 7 TH/MM3 Mean Platelet Volume 7.8 FL 7.3 FL CBC Comment AUTO DIFF AUTO DIFF Differential Total Cells Counted 10 5 Lymphocytes % 100 % 100 % Neutrophils # (Manual) 0.0 TH/MM3 0.0 TH/MM3 Differential Comment FINAL DIFF MANUAL FINAL DIFF MANUAL Platelet Estimate RARE RARE Platelet Morphology Comment NORMAL NORMAL Red Cell Morphology Comment NORMAL Laboratory Tests Test 11/06/16 05:35 11/07/16 06:25 Blood Urea Nitrogen 59 MG/DL 65 MG/DL Creatinine 5.92 MG/DL 7.03 MG/DL Random Glucose 101 MG/DL 162 MG/DL Albumin 2.5 GM/DL 2.3 GM/DL Calcium Level 7.1 MG/DL 6.7 MG/DL Phosphorus Level 5.1 MG/DL 4.6 MG/DL Sodium Level 137 MEQ/L 138 MEQ/L Potassium Level 4.2 MEQ/L 3.8 MEQ/L Chloride Level 100 MEQ/L 100 MEQ/L Carbon Dioxide Level 25.3 MEQ/L 25.2 MEQ/L Anion Gap 12 MEQ/L 13 MEQ/L Estimat Glomerular Filtration Rate 9 ML/MIN 8 ML/MIN IMAGING: Renal Ultrasound 10/30/16 0000 Signed Impressions: Service Date/Time: October 08:13 - CONCLUSION: Unremarkable exam with no evidence of hydronephrosis. Wander Hodges MD Chest X-Ray 10/29/16 0000 Signed Impressions: Service Date/Time: Saturday, October 29, 2016 08:10 - CONCLUSION: No acute disease. Dion Marmolejo Jr., MD PHYSICAL EXAMINATION GENERAL: No acute distress. Awake and alert. HEENT: No icterus. Oropharynx moist mucosa, no lesions. NECK: Supple, No adenopathy or swelling. LUNGS: Clear breath sounds. HEART: S1 and S2 without audible murmurs, rubs or gallops. ABDOMEN: Bowel sounds present, soft, and nontender. EXTREMITIES: No clubbing, cyanosis or edema. SKIN: No rash. Ecchymosis at r. flank. NEUROLOGIC: No gross focal findings. PSYCHIATRIC: Calm and cooperative. IMPRESSION 1. Acute lymphoblastic leukemia with pancytopenia. Patient post induction chemotherapy. ( Previous notes that referred to leukemia diagnosis as AML - corrected above) 2. Febrile neutropenia. Negative cultures. Counts remain low. 3. Acute renal failure. On hemodialysis. 4. The One blood culture is contaminant. RECOMMENDATIONS 1. Continue Cefepime. 2. Continue vancomycin. Pharmacy to monitor the levels and dosage. 3. Continue Doxycycline. 4. Monitor temperature. 5. Monitor clinical status. Gene Hewitt MD Nov 07, 2016 13:55
--- NOTE | 2016-11-07 14:07 | HHI.PR ---
Subjective Remarks patient - burping a lot, denies any abdominal pain, + nausea + BM- formed- brown stools Objective Vitals Vital Signs Date Time Temp Pulse Resp B/P (MAP) Pulse Ox O2 Delivery O2 Flow Rate FiO2 11/07/16 13:00 97.8 89 20 156/69 (98) 96 11/07/16 10:31 98.7 59 18 149/84 11/07/16 10:00 98.7 69 20 140/77 11/07/16 08:00 97.6 72 18 133/68 (89) 97 11/07/16 04:00 71 11/07/16 04:00 99.5 78 18 146/61 (89) 98 11/07/16 00:00 85 11/07/16 00:00 99.3 81 19 153/69 (97) 97 11/06/16 20:00 99.1 83 19 143/64 (90) 98 11/06/16 20:00 73 11/06/16 16:25 98.3 73 21 152/67 (95) 98 11/06/16 16:00 89 I/O 11/06/16 11/06/16 11/06/16 11/07/16 11/07/16 11/07/16 06:59 14:59 22:59 06:59 14:59 22:59 Intake Total 300 ml 830 ml 1172 ml 720 ml 500 ml Output Total 500 ml 3000 ml Balance -200 ml 830 ml 1172 ml 720 ml -2500 ml Intake Oral 480 ml 750 ml 720 ml IV Total 300 ml 350 ml 422 ml Packed Cells 500 ml Output Urine Total 500 ml Hemodialysis 3000 ml # Voids 3 2 2 1 # Bowel Movements 2 Result Diagram: 11/07/16 0625 11/07/16 0625 Imaging Last Impressions Chest X-Ray 11/01/16 0000 Signed Impressions: Service Date/Time: Tuesday, November 01, 2016 14:05 - CONCLUSION: Bibasilar densities likely atelectasis. Neal Castro MD Catheter Placement X-Ray 10/30/16 0826 Signed Impressions: Service Date/Time: October 11:04 - CONCLUSION: Uncomplicated Vas-Cath placement as above. Matt Lassiter MD Renal Ultrasound 10/30/16 0000 Signed Impressions: Service Date/Time: October 08:13 - CONCLUSION: Unremarkable exam with no evidence of hydronephrosis. Wander Hodges MD Lumbar Puncture Fluoroscopy 10/27/16 0000 Signed Impressions: Service Date/Time: Thursday, October 27, 2016 12:19 - CONCLUSION: Uncomplicated fluoroscopically guided lumbar puncture with chemotherapy injection. Matt Lassiter MD PICC Line Insertion 10/24/16 0000 Signed Impressions: Service Date/Time: Monday, October 24, 2016 12:01 - CONCLUSION: 1. Uncomplicated central venous Power PICC line placement. 2. The PICC line can be used immediately. Serafin Saba MD Bone Biopsy CT 10/24/16 0000 Signed Impressions: Service Date/Time: Monday, October 24, 2016 16:09 - CONCLUSION: 1. Uncomplicated CT guided bone marrow aspirate. 2. Uncomplicated CT guided bone marrow biopsy. Balwinder Swenson MD Abdomen/Pelvis CT 10/24/16 0000 Signed Impressions: Service Date/Time: Monday, October 24, 2016 15:57 - CONCLUSION: 1. Hepatic steatosis. 2. No evidence of metastatic disease or suspicious mass. 3. Bilateral inguinal hernias. 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 On Allopurinol. On chemotherapy Pancytopenia. blood products replaced/transfusions per Oncology FAIZA secondary to TLS ff electrolytes/renal functions ongoing hemodialysis. ff electrolytes. Nephrology ff. On IV Bumex per nephrology New onset Atrial fibrillation with RVR on admission- now in [place]. on Cardizem 30 mg po qid. . EF 55-60%. not on OAC- with pancytopenia Febrile neutropenic -Pneumonia: Continue cefepime, Vancomycin, doxycycline . ID ff. Vancomycin with pharmacy dosing. Stable on room air. Hypertension: Continue CCB. Vasotec IV as needed. Blood pressure control improved. with HD DVT prophylaxis: KRISTEN Seaman. Gas sensation- trial of simethicone- . Increase PPI to bid. Add trial low dose Phenergan 12.5 mg po ti ac Dietitian ff along with us Problem Qualifiers (1) Pneumonia: Minda Aquino MD Nov 07, 2016 14:07
--- NOTE | 2016-11-07 15:47 | HHI.NPPN ---
Subjective General Problems: Edema, Hypertension Renal Failure: Acute History of Present Illness was diagnosed with PE and mediastinal lymphadenopathy at [facility]. He is now diagnosed with acute lymphoblastic leukemia. He is now in [place], started on chemotherapy. Creatinine was 0.98 until 14th of this month, then develop FAIZA and started on HD. Additional Remarks Patient is alert, still has loose BM, no SOB, eating better, on room air. Review of Systems General Constitutional: Fatigue Respiratory Lungs: SOB Cardiovascular Cardiac: Edema, YOUNGER Gastrointestinal Gastrointestinal: Nausea & Vomiting Objective Data Data 11/07/16 11/08/16 19:00 07:00 Intake Total 500 ml Output Total 3000 ml Balance -2500 ml Packed Cells 500 ml Hemodialysis 3000 ml # Voids 1 Vital Signs Date Time Temp Pulse Resp B/P (MAP) Pulse Ox O2 Delivery O2 Flow Rate FiO2 11/07/16 13:00 97.8 89 20 156/69 (98) 96 11/07/16 10:31 98.7 59 18 149/84 11/07/16 10:00 98.7 69 20 140/77 11/07/16 08:00 97.6 72 18 133/68 (89) 97 11/07/16 04:00 71 11/07/16 04:00 99.5 78 18 146/61 (89) 98 11/07/16 00:00 85 11/07/16 00:00 99.3 81 19 153/69 (97) 97 11/06/16 20:00 99.1 83 19 143/64 (90) 98 11/06/16 20:00 73 11/06/16 16:25 98.3 73 21 152/67 (95) 98 11/06/16 16:00 89 -: 11/07/16 0625 11/07/16 0625 Tubes & Lines: Vas-Cath Physical Exam General Appearance: Well Developed, Well Nourished, No Acute Distress, Comfortable Eyes Eye Exam: Pupils Equal Throat Throat Exam: Oral Mucosa [place] & Moist Neck Neck Exam: Neck Supple Pulmonary Resp Exam: Clear Bilaterally, Breath Sounds Equal Cardiology CV Exam: Normal Sinus Rhythm, Good Perfusion Gastrointestinal/Abdomen GI Exam: Soft, Non-Tender, Bowel Sounds Present Musculoskeletal MS Exam: Joints Intact, Normal Gait, Normal Tone Integumentary Skin Exam: Clear, Warm, Dry, Intact Extremeties Extremities Exam: Moderate Edema Neurologic Neuro Exam: Alert, Awake, Oriented Assessment/Plan Discussed Condition With: Patient Assessment Summary: FAIZA/Acute Renal Failure, Hypertension Electrolyte Assessment: Hypocalcemia Problem List: (1) Acute kidney injury ICD Codes: N17.9 - Acute kidney failure, unspecified Status: Acute Plan: He has normal renal function at baseline, FAIZA from Tumor lysis syndrome (with hypocalcemia, hyperphosphatemia, and hyperuricemia) Received rasburicase on 10/31 s/p vascath placement 10/30, HD initiated 10/31 Continue HD MWF as needed await renal recovery, obtain daily labs he is non oliguric, continue Bumex 2 mg IV BID Monitor calcium, phosphorus, K, and uric acid Avoid nephrotoxic agents. HD done in AM and 3 liters removed. Replace Calcium IV and start PO. Follow the urine out put and BMP. HD as needed. Dr. Rice will follow over the weekend and Dr. Galicia from Thursday. 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 (3) Hyperphosphatemia ICD Codes: E83.39 - Other disorders of phosphorus metabolism Status: Acute Plan: He is on Renvela, follow phosphorus level (4) Hypocalcemia ICD Codes: E83.51 - Hypocalcemia Status: Acute Plan: follow serum calcium level Avoid IV calcium administration. Continue phosphate binders to treat hyperphosphatemia (5) Pancytopenia ICD Codes: D61.818 - Other pancytopenia Status: Acute Plan: ID and oncology following, he is neutropenic on cefepime monitor drug levels and renally dose medications if appropriate PRBC and pooled platelets ordered for transfusion 11/05 Caity Jones MD Nov 07, 2016 15:47
[2016-11-07] MEDS ORDERED: CALCIUM GLUCONATE INJ 1 GM in DEXTROSE 5% IN WATER 100ML INJ 100 ML IV ONE ×2 (18:00)
[2016-11-07] MEDS: PROMETHAZINE HCL 25 MG TAB PO SCH (18:23)
[2016-11-07] MEDS: CALCIUM/VITAMIN D 250 MG/125 U TAB PO SCH (20:14)
[2016-11-08] VITALS (7 sets, daily range): BP systolic 132–172; BP diastolic 58–87; PULSE 75–98; RESP 19–24; TEMP 97.6–100; O2SAT 94–98
[2016-11-08] MEDS: DILTIAZEM HCL 30 MG TAB PO SCH ×4 (05:29→23:33)
[2016-11-08] MEDS: SODIUM CHLOR 0.9% 1000 ML INJ 1,000 ML IV SCH (05:33)
[2016-11-08 06:44] LABS: MEAN CELL VOLUME 90.6 FL (80.0-100.0); MEAN CORPUSCULAR HEMOGLOBIN 31.6 PG (27.0-34.0); MEAN CORPUSCULAR HGB CONC 34.9 % (32.0-36.0); RED BLOOD COUNT 2.54 MIL/MM3 (4.50-5.90); RED CELL DISTRIBUTION WIDTH 16.8 % (11.6-17.2); WHITE BLOOD COUNT 0.1 TH/MM3 (4.0-11.0)
[2016-11-08 07:20] LABS: HEMO FLAGS AUTO DIFF; PLATELET COUNT 8 TH/MM3 (150-450)
[2016-11-08 07:23] LABS: BICARBONATE 26.8 MEQ/L (21.0-32.0); POTASSIUM 3.6 MEQ/L (3.5-5.1); URIC ACID 1.5 MG/DL (2.6-7.2)
[2016-11-08] MEDS: BUMETANIDE INJ 1 MG/4 ML VIAL IV PUSH SCH ×2 (07:56→17:01)
[2016-11-08] MEDS: ONDANSETRON HCL 4 MG/2 ML VIAL IV PUSH PRN ×2 (07:56→20:34)
[2016-11-08] MEDS: CALCIUM/VITAMIN D 250 MG/125 U TAB PO SCH ×2 (07:57→20:39)
[2016-11-08] MEDS: LACTOBACILLUS ACIDOPHILUS TAB PO SCH ×3 (07:57→17:01)
[2016-11-08] MEDS: SEVELAMER CARBONATE 800 MG TAB PO SCH ×3 (07:57→17:02)
[2016-11-08] MEDS: DOXYCYCLINE HYCLATE 100 MG TAB PO SCH ×2 (07:58→20:39)
[2016-11-08] MEDS: SIMETHICONE 80 MG CHEWABLE TAB CHEW SCH ×4 (07:58→20:39)
[2016-11-08] MEDS: PROMETHAZINE HCL 25 MG TAB PO SCH (07:59)
[2016-11-08] MEDS: SODIUM CHLORIDE 0.9% FLUSH 10 ML FLUSH IV FLUSH SCH ×2 (07:59→20:43)
[2016-11-08] MEDS: PANTOPRAZOLE SOD 20 MG DELAYED RELEASE TAB PO SCH (07:59)
[2016-11-08] MEDS: SODIUM CHLORIDE 0.9% FLUSH 10 ML FLUSH IVF SCH (07:59)
[2016-11-08] MEDS: SODIUM CHLORIDE 0.9% FLUSH 10 ML FLUSH IVF PRN (07:59)
[2016-11-08 08:00] LABS: CALCIUM-PROTEIN CORRECTED 7.9 MG/DL (8.5-10.1)
[2016-11-08] MEDS: MUPIROCIN 2% OINT 22 GM TUBE TOPICAL SCH ×2 (08:00→20:43)
[2016-11-08] MEDS: ALLOPURINOL 100 MG TAB PO SCH (08:15)
[2016-11-08 09:02] LABS: WBC DIFF SAMPLE 5
[2016-11-08 09:03] LABS: PLATELET ESTIMATE SMEAR RARE (NORMAL); PLATELET MORPHOLOGY NORMAL (NORMAL); SCAN/DIFF FINAL DIFF MANUAL
--- NOTE | 2016-11-08 09:15 | PD.ONC.PN ---
Subjective Subjective Remarks Low grade fevers Reports that something feels like it is "eating his stomach" Frequent semi formed loose stools Objective Data Date Time Temp Pulse Resp B/P (MAP) Pulse Ox O2 Delivery O2 Flow Rate FiO2 11/08/16 08:00 100.0 97 22 157/70 (99) 95 11/08/16 04:00 99.6 81 20 137/86 (103) 95 11/08/16 01:26 19 11/08/16 00:00 100.0 86 20 136/61 (86) 94 11/07/16 21:00 77 11/07/16 20:00 99.6 76 18 161/69 (99) 95 11/07/16 17:20 99.0 73 20 135/61 96 11/07/16 17:10 99.2 73 20 150/68 97 11/07/16 16:00 98.6 74 18 169/74 (105) 97 11/07/16 13:00 97.8 89 20 156/69 (98) 96 11/07/16 10:31 98.7 59 18 149/84 11/07/16 10:00 98.7 69 20 140/77 11/08/16 11/08/16 11/08/16 07:00 15:00 23:00 Intake Total 1312 ml Balance 1312 ml Result Diagram: 11/08/1652911/08/16 0530 Laboratory Results Laboratory Tests Test 11/08/16 05:30 White Blood Count 0.1 TH/MM3 Red Blood Count 2.54 MIL/MM3 Hemoglobin 8.0 GM/DL Hematocrit 23.0 % Mean Corpuscular Volume 90.6 FL Mean Corpuscular Hemoglobin 31.6 PG Mean Corpuscular Hemoglobin Concent 34.9 % Red Cell Distribution Width 16.8 % Platelet Count 8 TH/MM3 Mean Platelet Volume 7.0 FL CBC Comment AUTO DIFF Differential Total Cells Counted 5 Lymphocytes % 100 % Neutrophils # (Manual) 0.0 TH/MM3 Differential Comment FINAL DIFF MANUAL Platelet Estimate RARE Platelet Morphology Comment NORMAL Blood Urea Nitrogen 44 MG/DL Creatinine 5.50 MG/DL Random Glucose 124 MG/DL Total Protein 5.3 GM/DL Calcium Level 7.0 MG/DL Uric Acid 1.5 MG/DL Lactate Dehydrogenase 264 U/L Sodium Level 138 MEQ/L Potassium Level 3.6 MEQ/L Chloride Level 100 MEQ/L Carbon Dioxide Level 26.8 MEQ/L Anion Gap 11 MEQ/L Estimat Glomerular Filtration Rate 10 ML/MIN Protein Corrected Calcium 7.9 MG/DL Administered Medications Medications (Trade) Dose Ordered Sig/Daniel Route PRN Reason Start Time Stop Time Status Last Admin Dose Admin Sodium Chloride (NS Flush) 2 ml UNSCH PRN IV FLUSH FLUSH AFTER USING IV ACCESS 10/24/16 01:45 11/05/16 05:08 Sodium Chloride (NS Flush) 2 ml BID IV FLUSH 10/24/16 09:00 11/08/16 07:59 Doxycycline Hyclate (Vibratab) 100 mg Q12HR PO 10/24/16 09:00 11/08/16 07:58 Sodium Chloride (NS Flush) DAILY IVF 10/25/16 09:00 11/05/16 12:12 Heparin Sodium (Porcine) (Heparin Central Flush) DAILY IV FLUSH 10/25/16 09:00 10/26/16 08:01 Lactobacillus Acidophilus (Lactinex) 1 tab TID PO 10/24/16 18:00 11/08/16 07:57 Miscellaneous (Pill Splitter) 1 ea UNSCH PRN OTHER SEE LABEL COMMENTS 10/30/16 06:45 10/30/16 06:36 Sodium Chloride 1,000 ml @ 42 mls/hr [id number] IV 10/30/16 08:30 11/08/16 05:33 Bumetanide (Bumex Inj) 2 mg BID@09,18 IV PUSH 10/30/16 09:00 11/08/16 07:56 Sodium Chloride 1,000 ml @ 0 mls/hr Q0M PRN IV For Prime & Rinse Back 10/30/16 08:47 11/07/16 10:47 Sodium Chloride (NS Flush) 5 ml UNSCH PRN IV FLUSH WITH DIALYSIS 10/30/16 09:00 11/05/16 05:08 Heparin Sodium (Porcine) (Heparin Inj) UNSCH PRN .XX WITH DIALYSIS 10/30/16 09:00 11/07/16 10:47 Gentamicin Sulfate (Gentamicin (Dialysis) Inj) 20 mg UNSCH PRN IV WITH DIALYSIS 10/30/16 09:00 11/07/16 10:47 Ondansetron HCl (Zofran Inj) 4 mg UNSCH PRN IV WITH DIALYSIS 10/30/16 09:00 11/03/16 23:59 Acetaminophen (Tylenol) 650 mg UNSCH PRN PO for headach, pain, temp > 101F 10/30/16 09:00 11/07/16 23:21 Diltiazem HCl (Cardizem) 30 mg Q6HR PO 10/30/16 12:00 11/08/16 05:29 Cefepime HCl 1000 mg/Sodium Chloride 100 ml @ 200 mls/hr Q24H IV 10/31/16 12:00 11/07/16 13:16 Filgrastim (Neupogen Inj) 480 mcg DAILY@14 SQ 10/31/16 14:00 11/07/16 13:15 Mupirocin (Bactroban 2% Oint) 1 applic Q12HR TOPICAL 11/01/16 21:00 11/02/16 21:00 Allopurinol (Zyloprim) 200 mg DAILY PO 11/02/16 09:00 11/08/16 08:15 Sevelamer Carbonate (Renvela) 2,400 mg TIDAC PO 11/03/16 12:15 11/08/16 07:57 Ondansetron HCl (Zofran Inj) 4 mg Q6H PRN IV PUSH nausea 11/04/16 08:45 11/08/16 07:56 Simethicone (Mylicon Chew) 80 mg PCHS CHEW 11/04/16 10:30 11/08/16 07:58 Pantoprazole Sodium (Protonix) 20 mg BID PO 11/07/16 21:00 11/08/16 07:59 Promethazine HCl (Phenergan) 12.5 mg TIDAC PO 11/07/16 17:00 11/08/16 07:59 Calcium/Vitamin D (Oscal-D 250-125) 500 mg Q12HR PO 11/07/16 21:00 11/08/16 07:57 Objective Remarks GENERAL: Older male, sitting up in chair at bedside. He appears somewhat uncomfortable. SKIN: Warm and dry. HEAD: Normocephalic. EYES: No injection or drainage. NECK: Supple, trachea midline. CARDIOVASCULAR: Regular rate and rhythm without murmurs. RESPIRATORY: Breath sounds equal bilaterally. No accessory muscle use. GASTROINTESTINAL: Abdomen soft, mildly tender to mid epigastric and RUQ areas. EXTREMITIES: No cyanosis. Generalized edema to BLE. NEUROLOGICAL: No obvious focal deficit. Awake, alert, and oriented x3. Assessment/Plan Problem List: (1) Acute lymphocytic leukemia ICD Codes: C91.00 - Acute lymphoblastic leukemia not having achieved remission Status: Acute Plan: Assessment 71-year-old male admitted for workup and induction chemotherapy for a diagnosis of B-cell acute lymphocytic leukemia Plan 1. Pt with worsening dyspepsia. When palpating his RUQ he seemed somewhat more uncomfortable, will get CT abdomen to evaluate for cholecystitis and other problems. will check amylase and lipase 2. Consult GI. 3. Continue Neupogen. 4. Transfuse 1 unit irradiated platelets today. Attending Statement The exam, history, and the medical decision-making described in the above note were completed with the assistance of the mid-level provider. I reviewed and agree with the findings presented. I attest that I had a [id number] encounter with the patient on the same day, and personally performed and documented my assessment and findings in the medical record. patient definitely uncomfortable with abd pain and mild tenderness. Will check ct abd, lipase, amylase, and ask GI to see. will order pain meds. Imelda Michaels Nov 08, 2016 09:15 Jose Alberto Julien MD Nov 08, 2016 13:29
[2016-11-08] MEDS ORDERED: SUCRALFATE 1 GM/10 ML CUP PO ONE (11:30)
--- NOTE | 2016-11-08 11:35 | HHI.NPPN ---
Subjective General Problems: Edema, Hypertension Renal Failure: Acute History of Present Illness was diagnosed with PE and mediastinal lymphadenopathy at [facility]. He is now diagnosed with acute lymphoblastic leukemia. He is now in [place], started on chemotherapy. Creatinine was 0.98 until 14th of this month, then develop FAIZA and started on HD. Additional Remarks Patient is alert, still has loose BM, no SOB, eating better, on room air. Review of Systems General Constitutional: Fatigue Respiratory Lungs: SOB Cardiovascular Cardiac: Edema, YOUNGER Gastrointestinal Gastrointestinal: Nausea & Vomiting Objective Data Data 11/08/16 11/09/16 18:59 06:59 # Bowel Movements 2 Vital Signs Date Time Temp Pulse Resp B/P (MAP) Pulse Ox O2 Delivery O2 Flow Rate FiO2 11/08/16 08:00 100.0 97 22 157/70 (99) 95 11/08/16 04:00 99.6 81 20 137/86 (103) 95 11/08/16 01:26 19 11/08/16 00:00 100.0 86 20 136/61 (86) 94 11/07/16 21:00 77 11/07/16 20:00 99.6 76 18 161/69 (99) 95 11/07/16 17:20 99.0 73 20 135/61 96 11/07/16 17:10 99.2 73 20 150/68 97 11/07/16 16:00 98.6 74 18 169/74 (105) 97 11/07/16 13:00 97.8 89 20 156/69 (98) 96 -: 11/08/16 0530 11/08/16 0530 Tubes & Lines: Vas-Cath Physical Exam General Appearance: Well Developed, Well Nourished, No Acute Distress, Comfortable Eyes Eye Exam: Pupils Equal Throat Throat Exam: Oral Mucosa [place] & Moist Neck Neck Exam: Neck Supple Pulmonary Resp Exam: Clear Bilaterally, Breath Sounds Equal Cardiology CV Exam: Normal Sinus Rhythm, Good Perfusion Gastrointestinal/Abdomen GI Exam: Soft, Non-Tender, Bowel Sounds Present Musculoskeletal MS Exam: Joints Intact, Normal Gait, Normal Tone Integumentary Skin Exam: Clear, Warm, Dry, Intact Extremeties Extremities Exam: Moderate Edema Neurologic Neuro Exam: Alert, Awake, Oriented Assessment/Plan Discussed Condition With: Patient Assessment Summary: FAIZA/Acute Renal Failure, Hypertension Electrolyte Assessment: Hypocalcemia Problem List: (1) Acute kidney injury ICD Codes: N17.9 - Acute kidney failure, unspecified Status: Acute Plan: He has normal renal function at baseline, FAIZA from Tumor lysis syndrome (with hypocalcemia, hyperphosphatemia, and hyperuricemia) Received rasburicase on 10/31 s/p vascath placement 10/30, HD initiated 10/31 Continue HD MWF as needed await renal recovery, he is non oliguric, continue Bumex [address] Galicia from Thursday. 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 (3) Hyperphosphatemia ICD Codes: E83.39 - Other disorders of phosphorus metabolism Status: Acute Plan: He is on Renvela, follow phosphorus level (4) Hypocalcemia ICD Codes: E83.51 - Hypocalcemia Status: Acute Plan: follow serum calcium level Avoid IV calcium administration. Continue phosphate binders to treat hyperphosphatemia (5) Pancytopenia ICD Codes: D61.818 - Other pancytopenia Status: Acute Plan: ID and oncology following, he is neutropenic on cefepime monitor drug levels and renally dose medications if appropriate PRBC and pooled platelets ordered for transfusion 11/05 Kyle Rice MD Nov 08, 2016 11:35
--- NOTE | 2016-11-08 11:55 | HHI.PR ---
Subjective Remarks patient burping a lot with lots of reflux still with loose watery stools feels weak but feisty Objective Vitals Vital Signs Date Time Temp Pulse Resp B/P (MAP) Pulse Ox O2 Delivery O2 Flow Rate FiO2 11/08/16 08:00 100.0 97 22 157/70 (99) 95 11/08/16 04:00 99.6 81 20 137/86 (103) 95 11/08/16 01:26 19 11/08/16 00:00 100.0 86 20 136/61 (86) 94 11/07/16 21:00 77 11/07/16 20:00 99.6 76 18 161/69 (99) 95 11/07/16 17:20 99.0 73 20 135/61 96 11/07/16 17:10 99.2 73 20 150/68 97 11/07/16 16:00 98.6 74 18 169/74 (105) 97 11/07/16 13:00 97.8 89 20 156/69 (98) 96 I/O 11/07/16 11/07/16 11/07/16 11/08/16 11/08/16 11/08/16 07:00 15:00 23:00 07:00 15:00 23:00 Intake Total 720 ml 1100 ml 964 ml 1312 ml Output Total 3000 ml Balance 720 ml -1900 ml 964 ml 1312 ml Intake Oral 720 ml 600 ml 480 ml 360 ml IV Total 952 ml Packed Cells 500 ml Platelets 479 ml Blood Product IV Normal Saline Flush 5 ml Hemodialysis 3000 ml # Voids 2 1 2 2 # Bowel Movements 0 2 Result Diagram: 11/08/1630 11/08/16 0530 Imaging Last Impressions Chest X-Ray 11/01/16 0000 Signed Impressions: Service Date/Time: Tuesday, November 01, 2016 14:05 - CONCLUSION: Bibasilar densities likely atelectasis. Neal Castro MD Catheter Placement X-Ray 10/30/16 0826 Signed Impressions: Service Date/Time: October 11:04 - CONCLUSION: Uncomplicated Vas-Cath placement as above. Matt Lassiter MD Renal Ultrasound 10/30/16 0000 Signed Impressions: Service Date/Time: October 08:13 - CONCLUSION: Unremarkable exam with no evidence of hydronephrosis. Wander Hodges MD Lumbar Puncture Fluoroscopy 10/27/16 0000 Signed Impressions: Service Date/Time: Thursday, October 27, 2016 12:19 - CONCLUSION: Uncomplicated fluoroscopically guided lumbar puncture with chemotherapy injection. Matt Lassiter MD PICC Line Insertion 10/24/16 0000 Signed Impressions: Service Date/Time: Monday, October 24, 2016 12:01 - CONCLUSION: 1. Uncomplicated central venous Power PICC line placement. 2. The PICC line can be used immediately. Serafin Saba MD Bone Biopsy CT 10/24/16 0000 Signed Impressions: Service Date/Time: Monday, October 24, 2016 16:09 - CONCLUSION: 1. Uncomplicated CT guided bone marrow aspirate. 2. Uncomplicated CT guided bone marrow biopsy. Balwinder Swenson MD Abdomen/Pelvis CT 10/24/16 0000 Signed Impressions: Service Date/Time: Monday, October 24, 2016 15:57 - CONCLUSION: 1. Hepatic steatosis. 2. No evidence of metastatic disease or suspicious mass. 3. Bilateral inguinal hernias. 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 On Allopurinol. On chemotherapy Pancytopenia. blood products replaced/transfusions per Oncology FAIZA secondary to TLS ff electrolytes/renal functions ongoing hemodialysis. ff electrolytes. Nephrology ff. On IV Bumex per nephrology New onset Atrial fibrillation with RVR on admission- now in SR. on Cardizem 30 mg po qid. . EF 55-60%. not on OAC- with pancytopenia Febrile neutropenic -Pneumonia: T down Continue cefepime, Vancomycin, doxycycline . ID ff. Vancomycin with pharmacy dosing. Stable on room air. Hypertension: Continue CCB. . Blood pressure control improved. with HD DVT prophylaxis: SCDs, KRISTEN sauer. GERD-- trial of simethicone- . Increase PPI to bid. DC phenergan with diarrhea Diarrhea- c diff negative. - antiiboitc associated. On Lactinex. give x 1 Imodium Dietitian ff along with us Problem Qualifiers (1) Pneumonia: Minda Aquino MD Nov 08, 2016 11:55
[2016-11-08] MEDS ORDERED: LOPERAMIDE HCL 2 MG CAP PO ONE (12:00)
[2016-11-08] MEDS: CEFEPIME 1000 MG/NS 100 ML IV SCH ×2 (12:13)
[2016-11-08] MEDS: FILGRASTIM 480 MCG/1.6 ML VIAL SQ SCH (12:17)
[2016-11-08] MEDS ORDERED: oxyCODONE/ACETAMINOPHEN 5 MG/325 MG TAB PO PRN ×2 (13:30→16:45)
--- NOTE | 2016-11-08 15:20 | RADRPT ---
EXAM DATE/TIME: 11/08/2016 15:00 [facility] COMPARISON: No previous studies available for comparison. INDICATIONS : Upper abdomen pain. ORAL CONTRAST: No oral contrast ingested. RADIATION DOSE: 15.39 CTDIvol (mGy) MEDICAL HISTORY : Leukemia. SURGICAL HISTORY : Appendectomy. ENCOUNTER: Initial ACUITY: 1 day PAIN SCALE: 7/10 LOCATION: Bilateral upper quadrant TECHNIQUE: Volumetric scanning of the abdomen and pelvis was performed. Using automated exposure control and adjustment of the mA and/or kV according to patient size, radiation dose was kept as low as reasonably achievable to obtain optimal diagnostic quality images. DICOM format image data is av ailable electronically for review and comparison. FINDINGS: LOWER LUNGS: There is a small right-sided pleural effusion. There is a focal area of subpleural h oneycombing identified along the lateral aspect of the right lower lobe and paraseptal emphysema seen along the lateral aspect of the left lower lobe. The heart size is normal without evidence of perica rdial effusion. LIVER: Homogeneous density without lesion. There is no dilation of the biliary tree. No calcifi ed gallstones. SPLEEN: Normal size without lesion. PANCREAS: The pancreas demonstrates fatty replacement ND adjacent mesenteric fat near the pancrea tic head appears subtly increased in density as compared to the fat adjacent to the body and tail. Th is never present inflammatory changes related to pancreatitis. KIDNEYS: Normal in size and shape. There is no mass, stone, or hydronephrosis. ADRENAL GLANDS: Within normal limits. VASCULAR: There is no aortic aneurysm. BOWEL/MESENTERY: Diverticulosis involving the sigmoid colon without evidence of adjacent inflamma tory change. ABDOMINAL WALL: Small focal area of preperitoneal fat herniation through any abdominal wall defec t measuring 1.4 cm in width. This is seen 2 cm above the level of the umbilicus. RETROPERITONEUM: There is no lymphadenopathy. BLADDER: No wall thickening or mass. REPRODUCTIVE: Within normal limits. INGUINAL: There is no lymphadenopathy or hernia. MUSCULOSKELETAL: Within normal limits for patient age. CONCLUSION: #1. Small right-sided pleural effusion. #2. Hazy increased density identified adjacent to the head of the pancreas as compared to the body an d tail which may represent early changes of acute pancreatitis. Recommend correlation with patient's laboratory values. #3. Small anterior hernia with preperitoneal fat. This is seen approximately 2 cm superior to the umb ilicus. Darcie Evans MD on November 08, 2016 at 15:13 Board Certified Radiologist. This report was verified electronically.
[2016-11-08 15:26] LABS: AMYLASE 44 U/L (25-115)
--- NOTE | 2016-11-08 16:05 | PD.CONS ---
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 He underwent bone marrow biopsy, lumbar puncture for CSF fluid analysis and was started on chemotherapy with Rituxan and hyper-CVAD on 10/26/16. His hospital course was complicated by tumor lysis syndrome and he was noted to have renal failure and subsequently started hemodialysis on 10/30/16. He is now pancytopenia/ neutropenic with an abolute neutrophil count of 0, platelets of 8. He has had multiple blood transfusions. GI has been consulted for dyspepsia, abdominal pain. CT scan abdomen and pelvis (11/08/16)----> small right sided pleural effusion, hazy increased density identified adjacent to the head of the pancreas as compared to the body and tail which may represent early changes of acute pancreatitis. Recommend correlation with patient's laboratory values. Small anterior hernia with preperitoneal fat. This is seen approximately 2 cm superior to the umbilicus. The patient reports that he has never had issues with GERD, pancreatitis, peptic ulcer disease, or known gallbladder issues in the past. He denies any heartburn or reflux, however, he states that he has always "belched a lot." Since starting his chemotherapy, he has had a constant epigastric discomfort. He denies this being a pain, but states he has a constant fullness/pressure that makes him very uncomfortable. This is aggravated by any po intake, especially the ensure. He denies any nausea or vomiting. He has had mild diarrhea x 3 days, but denies any black tarry stools or hematochezia. His stool was negative for Cdiff. (Britney Cummins) [facility] Past Medical History Obesity Vocal polyps in 20's Rheumatic Fever - did not affect his heart Past Surgical History Appendectomy Vocal polyps removed in his 20's (Britney Cummins) Coded Allergies: No Known Allergies (Unverified , 10/24/16) Medications Allergies Coded Allergies Type Severity Reaction Last Updated Verified No Known Allergies 10/24/16 No Family History Father from COPD Mother from valvular heart disease Brother with valvular heart disease secondary to rheumatic fever Social History Tobacco: 1 PPD until age 36 y/o Alcohol: rare use Illicit Drugs: denies (Britney Cummins) Review of Systems Constitutional: COMPLAINS OF: Fatigue, Fever, Weight loss, Change in appetite Respiratory: COMPLAINS OF: Shortness of breath, DENIES: Cough Cardiovascular: DENIES: Chest pain Gastrointestinal: COMPLAINS OF: Abdominal pain (discomfort), Diarrhea, Swelling of Abdomen, DENIES: Black stools, Bloody stools, Constipation, Nausea, Vomiting, Difficulty Swallowing, Anorexia, Heartburn, Hematemesis Musculoskeletal: COMPLAINS OF: Back pain Integumentary: DENIES: Abnormal pigmentation Hematologic/lymphatic: COMPLAINS OF: Bruising Neurologic: DENIES: Headache Psychiatric: DENIES: Confusion (CumminsBritney) GI Exam Vitals I&O Vital Signs Date Time Temp Pulse Resp B/P (MAP) Pulse Ox O2 Delivery O2 Flow Rate FiO2 11/08/16 12:00 98.9 85 20 150/87 (108) 98 11/08/16 08:00 100.0 97 22 157/70 (99) 95 11/08/16 04:00 99.6 81 20 137/86 (103) 95 11/08/16 01:26 19 11/08/16 00:00 100.0 86 20 136/61 (86) 94 11/07/16 21:00 77 11/07/16 20:00 99.6 76 18 161/69 (99) 95 11/07/16 17:20 99.0 73 20 135/61 96 11/07/16 17:10 99.2 73 20 150/68 97 11/07/16 16:00 98.6 74 18 169/74 (105) 97 I/O 11/07/16 11/07/16 11/07/16 11/08/16 11/08/16 11/08/16 06:59 14:59 22:59 06:59 14:59 22:59 Intake Total 720 ml 1100 ml 964 ml 1312 ml 720 ml Output Total 3000 ml 150 ml Balance 720 ml -1900 ml 964 ml 1312 ml 570 ml Intake Oral 720 ml 600 ml 480 ml 360 ml 720 ml IV Total 952 ml Packed Cells 500 ml Platelets 479 ml Blood Product IV Normal Saline Flush 5 ml Output Urine Total 150 ml Hemodialysis 3000 ml # Voids 2 1 2 2 2 # Bowel Movements 0 5 Imaging Last Impressions Abdomen/Pelvis CT 11/08/16 0000 Signed Impressions: Service Date/Time: Tuesday, November 08, 2016 15:00 - CONCLUSION: #1. Small right-sided pleural effusion. #2. Hazy increased density identified adjacent to the head of the pancreas as compared to the body and tail which may represent early changes of acute pancreatitis. Recommend correlation with patient's laboratory values. #3. Small anterior hernia with preperitoneal fat. This is seen approximately 2 cm superior to the umbilicus. Darcie Evans MD Chest X-Ray 11/01/16 0000 Signed Impressions: Service Date/Time: Tuesday, November 01, 2016 14:05 - CONCLUSION: Bibasilar densities likely atelectasis. Neal Castro MD Catheter Placement X-Ray 10/30/16 0826 Signed Impressions: Service Date/Time: October 11:04 - CONCLUSION: Uncomplicated Vas-Cath placement as above. Matt Lassiter MD Renal Ultrasound 10/30/16 0000 Signed Impressions: Service Date/Time: October 08:13 - CONCLUSION: Unremarkable exam with no evidence of hydronephrosis. Wander Hodges MD Lumbar Puncture Fluoroscopy 10/27/16 0000 Signed Impressions: Service Date/Time: Thursday, October 27, 2016 12:19 - CONCLUSION: Uncomplicated fluoroscopically guided lumbar puncture with chemotherapy injection. Matt Lassiter MD PICC Line Insertion 10/24/16 0000 Signed Impressions: Service Date/Time: Monday, October 24, 2016 12:01 - CONCLUSION: 1. Uncomplicated central venous Power PICC line placement. 2. The PICC line can be used immediately. Serafin Saba MD Bone Biopsy CT 10/24/16 0000 Signed Impressions: Service Date/Time: Monday, October 24, 2016 16:09 - CONCLUSION: 1. Uncomplicated CT guided bone marrow aspirate. 2. Uncomplicated CT guided bone marrow biopsy. Balwinder Swenson MD Laboratory Test 11/08/16 05:30 White Blood Count 0.1 TH/MM3 Red Blood Count 2.54 MIL/MM3 Hemoglobin 8.0 GM/DL Hematocrit 23.0 % Mean Corpuscular Volume 90.6 FL Mean Corpuscular Hemoglobin 31.6 PG Mean Corpuscular Hemoglobin Concent 34.9 % Red Cell Distribution Width 16.8 % Platelet Count 8 TH/MM3 Mean Platelet Volume 7.0 FL CBC Comment AUTO DIFF Differential Total Cells Counted 5 Lymphocytes % 100 % Neutrophils # (Manual) 0.0 TH/MM3 Differential Comment FINAL DIFF MANUAL Platelet Estimate RARE Platelet Morphology Comment NORMAL Blood Urea Nitrogen 44 MG/DL Creatinine 5.50 MG/DL Random Glucose 124 MG/DL Total Protein 5.3 GM/DL Calcium Level 7.0 MG/DL Uric Acid 1.5 MG/DL Lactate Dehydrogenase 264 U/L Sodium Level 138 MEQ/L Potassium Level 3.6 MEQ/L Chloride Level 100 MEQ/L Carbon Dioxide Level 26.8 MEQ/L Anion Gap 11 MEQ/L Estimat Glomerular Filtration Rate 10 ML/MIN Protein Corrected Calcium 7.9 MG/DL Amylase Level 44 U/L Lipase 135 U/L Date/Time Source Procedure Growth Status 10/29/16 11:49 Blood Peripheral Aerobic Blood Culture - Final NO GROWTH IN 5 DAYS Complete 10/29/16 11:49 Blood Peripheral Anaerobic Blood Culture - Final NO GROWTH IN 5 DAYS Complete 10/29/16 09:20 Urine Random Urine Urine Culture - Final NO GROWTH IN 48 HOURS. Complete Physical Examination HEENT: Normocephalic; atraumatic; no jaundice. CHEST: Resp even/shallow, diminished bases CARDIAC: RRR ABDOMEN: Soft, obese, nondistended, mild epigastric discomfort; no hepatosplenomegaly; bowel sounds are present in all four quadrants. EXTREMITIES: Mild edema. SKIN: Normal; no rash; no jaundice. ORAL HEALTH THERAPIST: No focal deficits; alert and oriented times three. (Britney Cummins [facility]) Assessment and Plan Plan ASSESSMENT: - Epigastric discomfort, belching. Pt denies any prior hx of GERD, PUD, Pancreatitis, or GB disease- although he does report frequent belching his whole life. Since starting chemotherapy, he complains of a constant epigastric discomfort/bloating (denies this being pain), worse with oral intake. No n/v, no heartburn or reflux. No melena/hematochezia. CT scan abdomen and pelvis (11/08/16)----> small right sided pleural effusion, hazy increased density identified adjacent to the head of the pancreas as compared to the body and tail which may represent early changes of acute pancreatitis. Recommend correlation with patient's laboratory values. Small anterior hernia with preperitoneal fat. This is seen approximately 2 cm superior to the umbilicus. Lipase unremarkable at 135. LFT on 11/05 were unremarkable. ? gastritis, duodenitis, early pancreatitis. Would start by increasing Protonix 40mg IV BID, add Carafate ACHS. Will get RUQ US to r/o pericholecystic fluid/wall thickening. Also check LFTs. If not improvement and US negative, then consider EGD after transfusion of platelets once neutropenia improves. If unable, ? upper gi series. - Diarrhea. CDiff negative. Imodium. 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 Rituxan and hyper-CVAD started 10/26. Per oncology - TLS, renal failure. Started on HD- Thu/Thu/Thu per nurse. - Severe pancytopenia, WBC 0.1, H/H 8.0/23.0, Plt 8,Transfusions per hematology/ oncology - Neutropenic fever. Neutrophil 0. On Neupogen. BCx no growth (10/29) - New onset atrial fibrillation, HTN, Pneumonia. Abx per primary. PLAN: - Clear liquids - Increase Protonix to 40mg IV BID - Add Carafate 1 gram ACHS - Agree with Simethicone - Add LFT to BMP - RUQ US to r/o pericholecystic fluid and gb wall thickening - If no improvement with above, consider upper gi series vs. EGD once pancytopenia/neutropenia improves - Supportive care - Further recommendations to follow based on results of above - Pt seen and examined by Dr. Hollingsworth and myself and this note is written on his behalf (Britney Cummins) Physician Comments Agree with assessment and plan as above, RUQ US for now and labs, will consider CT without contrast although that will limit the study. Patient doesn't want any endoscopic intervention. Further recommendations to follow. (Junior Hollingsworth MD) Britney Cummins Nov 08, 2016 16:05 Junior Hollingsworth MD Nov 08, 2016 19:24
[2016-11-08 20:07] LABS: INDIRECT BILIRUBIN 0.7 MG/DL (0.0-0.8)
[2016-11-08] MEDS: HYDROmorphone HCL PF 1 MG/ML VIAL IV PRN (20:35)
[2016-11-08] MEDS: SUCRALFATE 1 GM/10 ML CUP PO SCH (20:39)
[2016-11-08] MEDS: PANTOPRAZOLE SODIUM 40 MG VIAL IV PUSH SCH (20:43)
[2016-11-09] VITALS (8 sets, daily range): BP systolic 120–148; BP diastolic 56–71; PULSE 82–112; RESP 18–22; TEMP 97.3–100.4; O2SAT 93–100
[2016-11-09] MEDS: HYDROmorphone HCL PF 1 MG/ML VIAL IV PRN ×3 (00:04→06:36)
[2016-11-09] MEDS ORDERED: LOPERAMIDE HCL 2 MG CAP PO ONE (00:15)
[2016-11-09] MEDS: ONDANSETRON HCL 4 MG/2 ML VIAL IV PUSH PRN (03:30)
[2016-11-09] MEDS: DILTIAZEM HCL 30 MG TAB PO SCH (05:01)
[2016-11-09] MEDS: PANTOPRAZOLE SODIUM 40 MG VIAL IV PUSH SCH ×2 (05:01→16:53)
[2016-11-09 06:18] LABS: MEAN CELL VOLUME 91.8 FL (80.0-100.0); MEAN CORPUSCULAR HEMOGLOBIN 30.8 PG (27.0-34.0); MEAN CORPUSCULAR HGB CONC 33.6 % (32.0-36.0); RED BLOOD COUNT 2.73 MIL/MM3 (4.50-5.90); RED CELL DISTRIBUTION WIDTH 16.5 % (11.6-17.2); WHITE BLOOD COUNT 0.1 TH/MM3 (4.0-11.0)
[2016-11-09 06:21] LABS: HEMO FLAGS AUTO DIFF
[2016-11-09 06:22] LABS: PLATELET COUNT 4 TH/MM3 (150-450)
[2016-11-09] MEDS: SODIUM CHLOR 0.9% 1000 ML INJ 1,000 ML IV SCH (06:40)
[2016-11-09] MEDS: SUCRALFATE 1 GM/10 ML CUP PO SCH ×4 (06:40→22:07)
[2016-11-09] MEDS ORDERED: DILTIAZEM HCL 25 MG/5 ML VIAL IV ONE (06:45)
[2016-11-09 07:36] LABS: BANDS 15 % (0-6); POLYS (SEG NEUTROPHILS) 20 % (16-70); WBC DIFF SAMPLE 20
[2016-11-09 07:37] LABS: TOTAL BILIRUBIN ADULT 0.9 MG/DL (0.2-1.0)
[2016-11-09 07:38] LABS: BICARBONATE 26.9 MEQ/L (21.0-32.0); MAGNESIUM 1.6 MG/DL (1.5-2.5); POTASSIUM 3.9 MEQ/L (3.5-5.1)
[2016-11-09 07:40] LABS: DOHLE BODIES PRESENT (NONE SEEN); TOXIC GRANULATION 1+ (NORMAL)
[2016-11-09 07:41] LABS: PLATELET ESTIMATE SMEAR RARE (NORMAL); PLATELET MORPHOLOGY NORMAL (NORMAL)
[2016-11-09 07:44] LABS: SCAN/DIFF FINAL DIFF MANUAL
[2016-11-09] MEDS: SEVELAMER CARBONATE 800 MG TAB PO SCH ×3 (08:00→16:52)
[2016-11-09] MEDS ORDERED: DILTIAZEM HCL 25 MG/5 ML VIAL IV PUSH ONE (08:45)
[2016-11-09] MEDS: CALCIUM/VITAMIN D 250 MG/125 U TAB PO SCH ×2 (08:51→20:16)
[2016-11-09] MEDS: SIMETHICONE 80 MG CHEWABLE TAB CHEW SCH ×4 (08:52→20:16)
[2016-11-09] MEDS: DOXYCYCLINE HYCLATE 100 MG TAB PO SCH ×2 (08:52→20:16)
[2016-11-09] MEDS: LACTOBACILLUS ACIDOPHILUS TAB PO SCH ×3 (08:52→16:51)
[2016-11-09] MEDS: ALLOPURINOL 100 MG TAB PO SCH (08:52)
[2016-11-09] MEDS: SODIUM CHLORIDE 0.9% FLUSH 10 ML FLUSH IVF SCH (08:53)
[2016-11-09] MEDS: SODIUM CHLORIDE 0.9% FLUSH 10 ML FLUSH IVF PRN (08:53)
[2016-11-09] MEDS: SODIUM CHLORIDE 0.9% FLUSH 10 ML FLUSH IV FLUSH SCH ×2 (08:53→20:17)
[2016-11-09] MEDS: MUPIROCIN 2% OINT 22 GM TUBE TOPICAL SCH ×2 (08:54→20:20)
[2016-11-09] MEDS: BUMETANIDE INJ 1 MG/4 ML VIAL IV PUSH SCH ×2 (09:00→16:57)
--- NOTE | 2016-11-09 09:17 | PD.ONC.PN ---
Subjective Subjective Remarks Per RN, pt went into Afib with RVR He was given a dose of 10mg Cardizem IVP Pt reports "I feel just fine, I didn't even know there was a problem" He states the pain medication is helping his abdominal pain Objective Data Date Time Temp Pulse Resp B/P (MAP) Pulse Ox O2 Delivery O2 Flow Rate FiO2 11/09/16 08:27 99.2 98 18 136/56 97 11/09/16 04:06 20 11/09/16 04:00 98.7 87 18 148/71 (96) 96 11/09/16 00:00 97.3 82 19 147/65 (92) 93 11/08/16 21:00 98 11/08/16 20:00 97.6 75 19 132/58 (82) 95 11/08/16 16:00 98.6 90 24 172/73 (106) 96 11/08/16 12:00 98.9 85 20 150/87 (108) 98 11/09/16 11/09/16 11/09/16 06:59 14:59 22:59 Intake Total 1020 ml 10 ml Balance 1020 ml 10 ml Result Diagram: 11/09/16 0456 11/09/16 0456 Laboratory Results Laboratory Tests Test 11/09/16 04:56 White Blood Count 0.1 TH/MM3 Red Blood Count 2.73 MIL/MM3 Hemoglobin 8.4 GM/DL Hematocrit 25.0 % Mean Corpuscular Volume 91.8 FL Mean Corpuscular Hemoglobin 30.8 PG Mean Corpuscular Hemoglobin Concent 33.6 % Red Cell Distribution Width 16.5 % Platelet Count 4 TH/MM3 Mean Platelet Volume 8.2 FL CBC Comment AUTO DIFF Differential Total Cells Counted 20 Neutrophils % (Manual) 20 % Band Neutrophils % 15 % Lymphocytes % 65 % Neutrophils # (Manual) 0.0 TH/MM3 Differential Comment FINAL DIFF MANUAL Toxic Granulation 1+ Dohle Bodies PRESENT Platelet Estimate RARE Platelet Morphology Comment NORMAL Blood Urea Nitrogen 54 MG/DL Creatinine 6.14 MG/DL Random Glucose 123 MG/DL Total Protein 6.0 GM/DL Albumin 2.7 GM/DL Calcium Level 7.4 MG/DL Magnesium Level 1.6 MG/DL Alkaline Phosphatase 49 U/L Aspartate Amino Transf (AST/SGOT) 11 U/L Alanine Aminotransferase (ALT/SGPT) 23 U/L Total Bilirubin 0.9 MG/DL Sodium Level 137 MEQ/L Potassium Level 3.9 MEQ/L Chloride Level 98 MEQ/L Carbon Dioxide Level 26.9 MEQ/L Anion Gap 12 MEQ/L Estimat Glomerular Filtration Rate 9 ML/MIN Protein Corrected Calcium 8.0 MG/DL Random Vancomycin Level 24.7 COMMENT Administered Medications Medications (Trade) Dose Ordered Sig/Daniel Route PRN Reason Start Time Stop Time Status Last Admin Dose Admin Sodium Chloride (NS Flush) 2 ml UNSCH PRN IV FLUSH FLUSH AFTER USING IV ACCESS 10/24/16 01:45 11/05/16 05:08 Sodium Chloride (NS Flush) 2 ml BID IV FLUSH 10/24/16 09:00 11/09/16 08:53 Doxycycline Hyclate (Vibratab) 100 mg Q12HR PO 10/24/16 09:00 11/09/16 08:52 Sodium Chloride (NS Flush) DAILY IVF 10/25/16 09:00 11/05/16 12:12 Heparin Sodium (Porcine) (Heparin Central Flush) DAILY IV FLUSH 10/25/16 09:00 10/26/16 08:01 Lactobacillus Acidophilus (Lactinex) 1 tab TID PO 10/24/16 18:00 11/09/16 08:52 Miscellaneous (Pill Splitter) 1 ea UNSCH PRN OTHER SEE LABEL COMMENTS 10/30/16 06:45 10/30/16 06:36 Sodium Chloride 1,000 ml @ 42 mls/hr [id number] IV 10/30/16 08:30 11/08/16 05:33 Bumetanide (Bumex Inj) 2 mg BID@,18 IV PUSH 10/30/16 09:00 11/08/16 17:01 Sodium Chloride 1,000 ml @ 0 mls/hr Q0M PRN IV For Prime & Rinse Back 10/30/16 08:47 11/07/16 10:47 Sodium Chloride (NS Flush) 5 ml UNSCH PRN IV FLUSH WITH DIALYSIS 10/30/16 09:00 11/05/16 05:08 Heparin Sodium (Porcine) (Heparin Inj) UNSCH PRN .XX WITH DIALYSIS 10/30/16 09:00 11/07/16 10:47 Gentamicin Sulfate (Gentamicin (Dialysis) Inj) 20 mg UNSCH PRN IV WITH DIALYSIS 10/30/16 09:00 11/07/16 10:47 Ondansetron HCl (Zofran Inj) 4 mg UNSCH PRN IV WITH DIALYSIS 10/30/16 09:00 11/03/16 23:59 Acetaminophen (Tylenol) 650 mg UNSCH PRN PO for headach, pain, temp > 101F 10/30/16 09:00 11/07/16 23:21 Diltiazem HCl (Cardizem) 30 mg Q6HR PO 10/30/16 12:00 11/09/16 05:01 Cefepime HCl 1000 mg/Sodium Chloride 100 ml @ 200 mls/hr Q24H IV 10/31/16 12:00 11/08/16 12:13 Filgrastim (Neupogen Inj) 480 mcg DAILY@14 SQ 10/31/16 14:00 11/08/16 12:17 Mupirocin (Bactroban 2% Oint) 1 applic Q12HR TOPICAL 11/01/16 21:00 11/02/16 21:00 Allopurinol (Zyloprim) 200 mg DAILY PO 11/02/16 09:00 11/09/16 08:52 Sevelamer Carbonate (Renvela) 2,400 mg TIDAC PO 11/03/16 12:15 11/08/16 17:02 Ondansetron HCl (Zofran Inj) 4 mg Q6H PRN IV PUSH nausea 11/04/16 08:45 11/09/16 03:30 Simethicone (Mylicon Chew) 80 mg PCHS CHEW 11/04/16 10:30 11/09/16 08:52 Calcium/Vitamin D (Oscal-D 250-125) 500 mg Q12HR PO 11/07/16 21:00 11/09/16 08:51 Hydromorphone HCl (Dilaudid Pf Inj) 1 mg Q3H PRN IV PAIN 6-10 11/08/16 16:45 11/09/16 06:36 Sucralfate (Carafate Liq) 1 gm ACHS PO 11/08/16 21:00 11/09/16 06:40 Pantoprazole Sodium (Protonix Inj) 40 mg Q12H IV PUSH 11/08/16 17:45 11/09/16 05:01 Objective Remarks GENERAL: Older male, sitting up in chair at bedside connected to physical therapy assistant instructor. SKIN: Warm and dry. HEAD: Normocephalic. EYES: No injection or drainage. NECK: Supple, trachea midline. CARDIOVASCULAR: Fast, irregular rhythm RESPIRATORY: Breath sounds equal bilaterally. No accessory muscle use. GASTROINTESTINAL: Abdomen soft, nontender to palpation. EXTREMITIES: No cyanosis. Generalized edema to BLE. NEUROLOGICAL: No obvious focal deficit. Awake, alert, and oriented x3. Assessment/Plan Problem List: (1) Acute lymphocytic leukemia ICD Codes: C91.00 - Acute lymphoblastic leukemia not having achieved remission Status: Acute Plan: Assessment 71-year-old male admitted for workup and induction chemotherapy for a diagnosis of B-cell acute lymphocytic leukemia Plan 1. The patient is being monitored for A. fib. The nursing staff has contacted his platform software engineer who recommends beginning by mouth Cardizem 4 times a day. The patient is currently asymptomatic. 2. The patient is scheduled to have a ultrasound to the right upper quadrant today to rule out nara-cholecystic fluid and gallbladder wall thickening by GI. Amylase and Lipase were negative. 3. Fortunately there was some confusion with the platelets yesterday and he never received them. He has had no bleeding. We will transfuse 1 unit of irradiated platelets today. 4. Monitor CBC Attending Statement The exam, history, and the medical decision-making described in the above note were completed with the assistance of the mid-level provider. I reviewed and agree with the findings presented. I attest that I had a [id number] encounter with the patient on the same day, and personally performed and documented my assessment and findings in the medical record. He is doing better today with abdominal pain gone. At present his rhythm is regular and afib was transient. will transfuse platelets today and continue antibiotics. Imelda Michaels Nov 09, 2016 09:17 Jose Alberto Julien MD Nov 09, 2016 15:37
--- NOTE | 2016-11-09 12:11 | HHI.PR ---
Subjective Remarks this am- went into rapid a fib- -was totally asymptomatic converted with 15 mg IV Cardizem x2 denies any pain or shortness of breath, no reflux symptoms no diarrhea since last evening burping resolved - states the "chewable pill helped" telemetry- SR with occasional; PVCs Objective Vitals Vital Signs Date Time Temp Pulse Resp B/P (MAP) Pulse Ox O2 Delivery O2 Flow Rate FiO2 11/09/16 09:13 99.3 112 18 129/60 98 11/09/16 08:27 99.2 98 18 136/56 97 11/09/16 04:06 20 11/09/16 04:00 98.7 87 18 148/71 (96) 96 11/09/16 00:00 97.3 82 19 147/65 (92) 93 11/08/16 21:00 98 11/08/16 20:00 97.6 75 19 132/58 (82) 95 11/08/16 16:00 98.6 90 24 172/73 (106) 96 I/O 11/08/16 11/08/16 11/08/16 11/09/16 11/09/16 11/09/16 07:00 15:00 23:00 07:00 15:00 23:00 Intake Total 1312 ml 720 ml 990 ml 1020 ml 304 ml Output Total 150 ml 300 ml Balance 1312 ml 570 ml 690 ml 1020 ml 304 ml Intake Oral 360 ml 720 ml 990 ml IV Total 952 ml 1020 ml Platelets 284 ml Blood Product IV Normal Saline Flush 20 ml Output Urine Total 150 ml 300 ml # Voids 2 2 1 # Bowel Movements 5 1 Result Diagram: 11/09/16 0456 11/09/16 0456 Imaging Last Impressions Abdomen/Pelvis CT 11/08/16 0000 Signed Impressions: Service Date/Time: Tuesday, November 08, 2016 15:00 - CONCLUSION: #1. Small right-sided pleural effusion. #2. Hazy increased density identified adjacent to the head of the pancreas as compared to the body and tail which may represent early changes of acute pancreatitis. Recommend correlation with patient's laboratory values. #3. Small anterior hernia with preperitoneal fat. This is seen approximately 2 cm superior to the umbilicus. Darcie Evans MD Chest X-Ray 11/01/16 0000 Signed Impressions: Service Date/Time: Tuesday, November 01, 2016 14:05 - CONCLUSION: Bibasilar densities likely atelectasis. Neal Castro MD Catheter Placement X-Ray 10/30/16 0826 Signed Impressions: Service Date/Time: October 11:04 - CONCLUSION: Uncomplicated Vas-Cath placement as above. Matt Lassiter MD Renal Ultrasound 10/30/16 0000 Signed Impressions: Service Date/Time: October 08:13 - CONCLUSION: Unremarkable exam with no evidence of hydronephrosis. Wander Hodges MD Lumbar Puncture Fluoroscopy 10/27/16 0000 Signed Impressions: Service Date/Time: Thursday, October 27, 2016 12:19 - CONCLUSION: Uncomplicated fluoroscopically guided lumbar puncture with chemotherapy injection. Matt Lassiter MD PICC Line Insertion 10/24/16 0000 Signed Impressions: Service Date/Time: Monday, October 24, 2016 12:01 - CONCLUSION: 1. Uncomplicated central venous Power PICC line placement. 2. The PICC line can be used immediately. Serafin Saba MD Bone Biopsy CT 10/24/16 0000 Signed Impressions: Service Date/Time: Monday, October 24, 2016 16:09 - CONCLUSION: 1. Uncomplicated CT guided bone marrow aspirate. 2. Uncomplicated CT guided bone marrow biopsy. Balwinder Swenson MD Objective Remarks awake alert, no acute distress anicteric VAS cath in place - right lungs no rales or wheezes regular rhythm- telemetry -in SR with occasional PVCs abdomen- globularly soft, nontender low back area- fading ecchymosis, flank with ecchymoses extremities + edema neuro exam- unremarkable Procedures 10/24/16 PICC line placement 10/24/16 bone marrow biopsy 10/30/16 Vas-Cath placement Date of Insertion: Oct 24, 2016 Line: PICC A/P Problem List: (1) Pancytopenia ICD Code: D61.818 - Other pancytopenia Status: Acute (2) Pneumonia ICD Code: J18.9 - Pneumonia, unspecified organism Status: Acute (3) 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 On Allopurinol. On chemotherapy Pancytopenia.- FAIZA secondary to TLS blood products transfusions per Oncologgy ff electrolytes/renal functions ongoing hemodialysis. ff electrolytes. Nephrology ff. On IV Bumex q 12 per nephrology Paroxysmal atrial fibrillation - New onset Atrial fibrillation with RVR on admission 10/24 -converted to SR Went back to Rapid a fib this am- 11/08 - converted back to SR with 15 mg IV Cardizem x 2 already on 30 mg cardizem qid - will Increase Cardizem to 60 mg po qid EF 55-60%. not on OAC- with pancytopenia Febrile neutropenic -Pneumonia: T down Continue cefepime, Vancomycin, doxycycline . ID ff. Vancomycin with pharmacy dosing. Stable on room air. On Neupogen Hypertension: Continue CCB. . increase to 60 mg po qid- paroxysmal a fib episode 11/08 DVT prophylaxis: SCDs, KRISTEN sauer. GERD-- trial of simethicone- . Increased PPI to bid. DC phenergan with diarrhea Diarrhea- c diff negative. - antiibotic associated. On Lactinex. -none since last evening Dietitian ff along with us Problem Qualifiers (1) Pneumonia: Minda Aquino MD Nov 09, 2016 12:11
[2016-11-09] MEDS: CEFEPIME 1000 MG/NS 100 ML IV SCH ×2 (12:45)
--- NOTE | 2016-11-09 13:01 | RADRPT ---
EXAM DATE/TIME: 11/09/2016 12:22 [facility] COMPARISON: No previous studies available for comparison. INDICATIONS : Bloating, abdominal pain. MEDICAL HISTORY : Leukemia. SURGICAL HISTORY : Appendectomy. ENCOUNTER: Initial ACUITY: 1 day PAIN SCORE: 0/10 LOCATION: Right upper quadrant MEASUREMENTS: LIVER: 18.5 cm length COMMON DUCT: 4 mm RIGHT KIDNEY: 12.7 x 6.1 x 6.7 cm FINDINGS: LIVER: There is increased echogenicity throughout the liver. No dilated biliary ducts. The portal system is patent. No evidence of ascites. COMMON DUCT: No intraluminal mass or stone visualized. GALLBLADDER: Multiple stones in the gallbladder. The gallbladder abraham are not thickened. No significant fluid aurea und the gallbladder. PANCREAS: The visualized portions are within normal limits. RIGHT KIDNEY: No evidence of hydronephrosis, stone, or mass. CONCLUSION: 1. Increased echogenicity throughout the liver suggestive of fatty infiltration. The liver is enlarge d at 18.5 cm. 2. There are gallstones in the gallbladder. No biliary tract obstruction. Prasad Cade MD on November 09, 2016 at 12:58 Board Certified Radiologist. This report was verified electronically.
[2016-11-09] MEDS: FILGRASTIM 480 MCG/1.6 ML VIAL SQ SCH (13:12)
--- NOTE | 2016-11-09 13:23 | PD.CARD.PN ---
Subjective Subjective Remarks overnight events noted episode of afib asymptomatic Objective Medications Current Medications Medications (Trade) Dose Ordered Sig/Daniel Route Start Time Stop Time Status Last Admin (NS Flush) 2 ml UNSCH PRN IV FLUSH 10/24/16 01:45 11/05/16 05:08 (NS Flush) 2 ml BID IV FLUSH 10/24/16 09:00 11/09/16 08:53 (Narcan Inj) 0.4 mg UNSCH PRN IV 10/24/16 01:45 (Vibratab) 100 mg Q12HR PO 10/24/16 09:00 11/09/16 08:52 (Duoneb Neb) 1 ampule Q4HR NEB PRN NEB 10/24/16 03:45 (NS Flush) DAILY IVF 10/25/16 09:00 11/05/16 12:12 (Heparin Central Flush) DAILY IV FLUSH 10/25/16 09:00 10/26/16 08:01 (NS Flush) 2 ml UNSCH PRN IVF 10/24/16 13:15 (Lactinex) 1 tab TID PO 10/24/16 18:00 11/09/16 13:00 (Vasotec Inj) 1.25 mg Q8H PRN IV PUSH 10/25/16 15:45 Pharmacy Profile Note 0 ml @ 0 mls/hr UNSCH OTHER 10/29/16 12:45 (Pill Splitter) 1 ea UNSCH PRN OTHER 10/30/16 06:45 10/30/16 06:36 Sodium Chloride 1,000 ml @ 42 mls/hr [id number] IV 10/30/16 08:30 11/08/16 05:33 (Bumex Inj) 2 mg BID@09,18 IV PUSH 10/30/16 09:00 11/08/16 17:01 Sodium Chloride 1,000 ml @ 0 mls/hr Q0M PRN IV 10/30/16 08:47 11/07/16 10:47 (Heparin Inj) 8,000 units UNSCH PRN IVF 10/30/16 09:00 Sodium Chloride 1,000 ml @ 200 mls/hr Q5H PRN IV 10/30/16 08:47 Sodium Chloride 1,000 ml @ 0 mls/hr Q0M PRN IV 10/30/16 08:47 (Mannitol Inj) 12.5 gm UNSCH PRN IV 10/30/16 09:00 (Albumin 25% Inj) 25 gm UNSCH PRN IV 10/30/16 09:00 (NS Flush) 5 ml UNSCH PRN IV FLUSH 10/30/16 09:00 11/05/16 05:08 (Heparin Inj) UNSCH PRN .XX 10/30/16 09:00 11/07/16 10:47 (Gentamicin (Dialysis) Inj) 20 mg UNSCH PRN IV 10/30/16 09:00 11/07/16 10:47 (Zofran Inj) 4 mg UNSCH PRN IV 10/30/16 09:00 11/03/16 23:59 (Tylenol) 650 mg UNSCH PRN PO 10/30/16 09:00 11/07/16 23:21 (Benadryl) 25 mg UNSCH PRN PO 10/30/16 09:00 (Nitrostat Sl) 0.4 mg UNSCH PRN SL 10/30/16 09:00 (Catapres) 0.1 mg UNSCH PRN PO 10/30/16 09:00 (Gelfoam 12 Mm/7 Mm Top) 1 foam UNSCH PRN TOP 10/30/16 09:00 (NS Flush) UNSCH PRN IVF 10/30/16 11:45 (Heparin Inj) UNSCH PRN IV FLUSH 10/30/16 11:45 Cefepime HCl 1000 mg/Sodium Chloride 100 ml @ 200 mls/hr Q24H IV 10/31/16 12:00 11/09/16 12:45 (Neupogen Inj) 480 mcg DAILY@14 SQ 10/31/16 14:00 11/09/16 13:12 (Bactroban 2% Oint) 1 applic Q12HR TOPICAL 11/01/16 21:00 11/02/16 21:00 (Zyloprim) 200 mg DAILY PO 11/02/16 09:00 11/09/16 08:52 (Renvela) 2,400 mg TIDAC PO 11/03/16 12:15 11/08/16 17:02 (Zofran Inj) 4 mg Q6H PRN IV PUSH 11/04/16 08:45 11/09/16 03:30 (Mylicon Chew) 80 mg PCHS CHEW 11/04/16 10:30 11/09/16 13:12 (Oscal-D 250-125) 500 mg Q12HR PO 11/07/16 21:00 11/09/16 08:51 (Percocet 5-325 Mg) 1 tab Q3H PRN PO 11/08/16 16:45 (Dilaudid Pf Inj) 1 mg Q3H PRN IV 11/08/16 16:45 11/09/16 06:36 (Carafate Liq) 1 gm ACHS PO 11/08/16 21:00 11/09/16 11:00 (Protonix Inj) 40 mg Q12H IV PUSH 11/08/16 17:45 11/09/16 05:01 (Cardizem) 60 mg Q6HR PO 11/09/16 18:00 UNV Vital Signs / I&O Vital Signs Date Time Temp Pulse Resp B/P (MAP) Pulse Ox O2 Delivery O2 Flow Rate FiO2 11/09/16 09:13 99.3 112 18 129/60 98 11/09/16 08:27 99.2 98 18 136/56 97 11/09/16 04:06 20 11/09/16 04:00 98.7 87 18 148/71 (96) 96 11/09/16 00:00 97.3 82 19 147/65 (92) 93 11/08/16 21:00 98 11/08/16 20:00 97.6 75 19 132/58 (82) 95 11/08/16 16:00 98.6 90 24 172/73 (106) 96 I/O 11/08/16 11/08/16 11/08/16 11/09/16 11/09/16 11/09/16 06:59 14:59 22:59 06:59 14:59 22:59 Intake Total 1312 ml 720 ml 990 ml 1020 ml 304 ml Output Total 150 ml 300 ml Balance 1312 ml 570 ml 690 ml 1020 ml 304 ml Intake Oral 360 ml 720 ml 990 ml IV Total 952 ml 1020 ml Platelets 284 ml Blood Product IV Normal Saline Flush 20 ml Output Urine Total 150 ml 300 ml # Voids 2 2 1 # Bowel Movements 5 1 Physical Exam GENERAL: Well-nourished, well-developed patient. SKIN: Warm and dry. HEAD: Normocephalic. EYES: No scleral icterus. No injection or drainage. NECK: Supple, trachea midline. No JVD or lymphadenopathy. CARDIOVASCULAR: Regular rate and rhythm without murmurs, gallops, or rubs. RESPIRATORY: Breath sounds equal bilaterally. No accessory muscle use. GASTROINTESTINAL: Abdomen soft, non-tender, nondistended. EXTREMITIES: No cyanosis, or edema. NEUROLOGICAL: Awake, alert, and oriented x 3. Non-focal. Laboratory Laboratory Tests Test 11/09/16 04:56 White Blood Count 0.1 TH/MM3 Red Blood Count 2.73 MIL/MM3 Hemoglobin 8.4 GM/DL Hematocrit 25.0 % Mean Corpuscular Volume 91.8 FL Mean Corpuscular Hemoglobin 30.8 PG Mean Corpuscular Hemoglobin Concent 33.6 % Red Cell Distribution Width 16.5 % Platelet Count 4 TH/MM3 Mean Platelet Volume 8.2 FL CBC Comment AUTO DIFF Differential Total Cells Counted 20 Neutrophils % (Manual) 20 % Band Neutrophils % 15 % Lymphocytes % 65 % Neutrophils # (Manual) 0.0 TH/MM3 Differential Comment FINAL DIFF MANUAL Toxic Granulation 1+ Dohle Bodies PRESENT Platelet Estimate RARE Platelet Morphology Comment NORMAL Blood Urea Nitrogen 54 MG/DL Creatinine 6.14 MG/DL Random Glucose 123 MG/DL Total Protein 6.0 GM/DL Albumin 2.7 GM/DL Calcium Level 7.4 MG/DL Magnesium Level 1.6 MG/DL Alkaline Phosphatase 49 U/L Aspartate Amino Transf (AST/SGOT) 11 U/L Alanine Aminotransferase (ALT/SGPT) 23 U/L Total Bilirubin 0.9 MG/DL Sodium Level 137 MEQ/L Potassium Level 3.9 MEQ/L Chloride Level 98 MEQ/L Carbon Dioxide Level 26.9 MEQ/L Anion Gap 12 MEQ/L Estimat Glomerular Filtration Rate 9 ML/MIN Protein Corrected Calcium 8.0 MG/DL Random Vancomycin Level 24.7 COMMENT Assessment and Plan Problem List: (1) Atrial fibrillation ICD Codes: I48.91 - Unspecified atrial fibrillation Status: Acute Plan: Afib now resolved. Back to sinus rhythm. No CV complaints Recommendations: Start Cardizem 30mg PO QID Not candidate for OAC (2) Thrombocytopenia ICD Codes: D69.6 - Thrombocytopenia, unspecified Status: Acute (3) Pancytopenia ICD Codes: D61.818 - Other pancytopenia Status: Acute (4) Pneumonia ICD Codes: J18.9 - Pneumonia, unspecified organism Status: Acute (5) Acute lymphocytic leukemia ICD Codes: C91.00 - Acute lymphoblastic leukemia not having achieved remission Status: Acute (6) Hypertension ICD Codes: I10 - Essential (primary) hypertension Status: Chronic (7) Hyperphosphatemia ICD Codes: E83.39 - Other disorders of phosphorus metabolism Status: Acute (8) Hypocalcemia ICD Codes: E83.51 - Hypocalcemia Status: Acute (9) Acute kidney injury ICD Codes: N17.9 - Acute kidney failure, unspecified Status: Acute Problem Qualifiers (1) Atrial fibrillation: (2) Pneumonia: Jace Thornton MD Nov 09, 2016 13:22
[2016-11-09] MEDS: DILTIAZEM HCL 60 MG TAB PO SCH ×2 (13:58→20:16)
--- NOTE | 2016-11-09 16:13 | HHI.NPPN ---
Subjective General Problems: Edema, Hypertension Renal Failure: Acute History of Present Illness was diagnosed with PE and mediastinal lymphadenopathy at [facility]. He is now diagnosed with acute lymphoblastic leukemia. He is now in [place], started on chemotherapy. Creatinine was 0.98 until 14th of this month, then develop FAIZA and started on HD. Additional Remarks Patient is alert, no SOB, on room air.had A FIB now NSR Review of Systems General Constitutional: Fatigue Respiratory Lungs: SOB Cardiovascular Cardiac: Edema, YOUNGER Gastrointestinal Gastrointestinal: Nausea & Vomiting Objective Data Data 11/09/16 11/10/16 19:00 07:00 Intake Total 304 ml Balance 304 ml Platelets 284 ml Blood Product IV Normal Saline Flush 20 ml Vital Signs Date Time Temp Pulse Resp B/P (MAP) Pulse Ox O2 Delivery O2 Flow Rate FiO2 11/09/16 12:00 98.8 86 22 120/60 (80) 100 11/09/16 09:13 99.3 112 18 129/60 98 11/09/16 08:27 99.2 98 18 136/56 97 11/09/16 04:06 20 11/09/16 04:00 98.7 87 18 148/71 (96) 96 11/09/16 00:00 97.3 82 19 147/65 (92) 93 11/08/16 21:00 98 11/08/16 20:00 97.6 75 19 132/58 (82) 95 -: 11/09/16 0456 11/09/16 0456 Tubes & Lines: Vas-Cath Physical Exam General Appearance: Well Developed, Well Nourished, No Acute Distress, Comfortable Eyes Eye Exam: Pupils Equal Throat Throat Exam: Oral Mucosa [place] & Moist Neck Neck Exam: Neck Supple Pulmonary Resp Exam: Clear Bilaterally, Breath Sounds Equal Cardiology CV Exam: Normal Sinus Rhythm, Good Perfusion Gastrointestinal/Abdomen GI Exam: Soft, Non-Tender, Bowel Sounds Present Musculoskeletal MS Exam: Joints Intact, Normal Gait, Normal Tone Integumentary Skin Exam: Clear, Warm, Dry, Intact Extremeties Extremities Exam: Moderate Edema Neurologic Neuro Exam: Alert, Awake, Oriented Assessment/Plan Discussed Condition With: Patient Assessment Summary: FAIZA/Acute Renal Failure, Hypertension Electrolyte Assessment: Hypocalcemia Problem List: (1) Acute kidney injury ICD Codes: N17.9 - Acute kidney failure, unspecified Status: Acute Plan: He has normal renal function at baseline, FAIZA from Tumor lysis syndrome (with hypocalcemia, hyperphosphatemia, and hyperuricemia) Received rasburicase on 10/31 s/p vascath placement 10/30, HD initiated 10/31 Continue HD MWF as needed await renal recovery, cr higher he is non oliguric, continue Bumex [address] Galicia from Thursday. 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 (3) Hyperphosphatemia ICD Codes: E83.39 - Other disorders of phosphorus metabolism Status: Acute Plan: He is on Renvela held as NPO, follow phosphorus level (4) Hypocalcemia ICD Codes: E83.51 - Hypocalcemia Status: Acute Plan: follow serum calcium level Avoid IV calcium administration. Continue phosphate binders to treat hyperphosphatemia (5) Pancytopenia ICD Codes: D61.818 - Other pancytopenia Status: Acute Plan: ID and oncology following, he is neutropenic on cefepime monitor drug levels and renally dose medications if appropriate PRBC and pooled platelets ordered for transfusion 11/05 Kyle Rice MD Nov 09, 2016 16:13
[2016-11-10] VITALS (18 sets, daily range): BP systolic 103–153; BP diastolic 51–74; PULSE 79–94; RESP 16–20; TEMP 97–99.7; O2SAT 93–97
[2016-11-10] MEDS: DILTIAZEM HCL 60 MG TAB PO SCH ×4 (02:03→20:08)
[2016-11-10] MEDS: SODIUM CHLORIDE 0.9% FLUSH 10 ML FLUSH IV FLUSH PRN ×2 (04:17→04:18)
[2016-11-10] MEDS: PANTOPRAZOLE SODIUM 40 MG VIAL IV PUSH SCH ×2 (04:30→18:20)
[2016-11-10] MEDS: SODIUM CHLOR 0.9% 1000 ML INJ 1,000 ML IV SCH (04:31)
[2016-11-10 04:50] LABS: MEAN CELL VOLUME 91.2 FL (80.0-100.0); MEAN CORPUSCULAR HEMOGLOBIN 31.4 PG (27.0-34.0); MEAN CORPUSCULAR HGB CONC 34.4 % (32.0-36.0); RED BLOOD COUNT 2.29 MIL/MM3 (4.50-5.90); RED CELL DISTRIBUTION WIDTH 15.9 % (11.6-17.2); WHITE BLOOD COUNT 0.1 TH/MM3 (4.0-11.0)
[2016-11-10 05:02] LABS: HEMO FLAGS AUTO DIFF
[2016-11-10 05:03] LABS: HEMATOCRIT 20.9 % (39.0-51.0); PLATELET COUNT 7 TH/MM3 (150-450)
[2016-11-10 05:17] LABS: BICARBONATE 28.5 MEQ/L (21.0-32.0); POTASSIUM 3.9 MEQ/L (3.5-5.1)
[2016-11-10] MEDS ORDERED: SODIUM CHLOR 0.9% 250 ML INJ 250 ML IV ONE ×3 (05:30→08:30)
[2016-11-10 05:31] LABS: CALCIUM-PROTEIN CORRECTED 8.2 MG/DL (8.5-10.1)
[2016-11-10 05:38] LABS: BANDS 10 % (0-6); NEUTROPHIL # MANUAL DIFF 0.1 TH/MM3 (1.8-7.7); POLYS (SEG NEUTROPHILS) 50 % (16-70); WBC DIFF SAMPLE 10
[2016-11-10 05:39] LABS: PLATELET ESTIMATE SMEAR RARE (NORMAL); PLATELET MORPHOLOGY NORMAL (NORMAL); SCAN/DIFF FINAL DIFF MANUAL
[2016-11-10] MEDS: SUCRALFATE 1 GM/10 ML CUP PO SCH ×4 (06:09→21:25)
[2016-11-10] MEDS ORDERED: diphenhydrAMINE HCL 25 MG CAP PO PRN (07:30)
--- NOTE | 2016-11-10 07:44 | PD.ONC.PN ---
Subjective Subjective Remarks Patient was seen and examined, vital signs, medications, laboratory findings and unix consultant/primary team physician notes reviewed. Major events over the weekend included epigastric abdominal pain for which the GI service was consulted, imaging studies of the abdomen and pelvis were obtained and no definite explanation for the epigastric pain was identified. The patient also developed A. fib with RVR and was started on rate control with a calcium channel krystina. He is also had low-grade temperatures over the past 2 days. He remained cytopenic and FISH studies for BCR/ABL fusion gene came back as negative. Subjectively; he reports feeling weak, reports trembling of the hands and feet, he reports feeling cold and reports a lack of appetite and "an uneasy " feeling in the stomach which she likens to "churning ". He denies overt bleeding. And tells me he is only been out of bed for short period of time to get to the bathroom. Objective Data Date Time Temp Pulse Resp B/P (MAP) Pulse Ox O2 Delivery O2 Flow Rate FiO2 11/10/16 04:14 98.9 85 104/52 (69) 95 11/10/16 04:12 85 11/10/16 01:58 89 112/53 (72) 11/10/16 00:08 93 11/10/16 00:00 99.6 94 20 103/51 (68) 96 11/09/16 20:16 98 11/09/16 20:07 99.4 91 20 139/60 (86) 97 11/09/16 18:00 100.4 86 20 141/63 (89) 97 11/09/16 12:00 98.8 86 22 120/60 (80) 100 11/09/16 09:13 99.3 112 18 129/60 98 11/09/16 08:27 99.2 98 18 136/56 97 11/10/16 11/10/16 11/10/16 06:59 14:59 22:59 Intake Total 850 ml 320 ml Output Total 350 ml 200 ml Balance 500 ml 120 ml Result Diagram: 11/10/16 0420 11/10/16 0420 Laboratory Results Laboratory Tests Test 11/10/16 04:20 White Blood Count 0.1 TH/MM3 Red Blood Count 2.29 MIL/MM3 Hemoglobin 7.2 GM/DL Hematocrit 20.9 % Mean Corpuscular Volume 91.2 FL Mean Corpuscular Hemoglobin 31.4 PG Mean Corpuscular Hemoglobin Concent 34.4 % Red Cell Distribution Width 15.9 % Platelet Count 7 TH/MM3 Mean Platelet Volume 7.2 FL CBC Comment AUTO DIFF Differential Total Cells Counted 10 Neutrophils % (Manual) 50 % Band Neutrophils % 10 % Lymphocytes % 40 % Neutrophils # (Manual) 0.1 TH/MM3 Differential Comment FINAL DIFF MANUAL Platelet Estimate RARE Platelet Morphology Comment NORMAL Red Cell Morphology Comment NORMAL Blood Urea Nitrogen 63 MG/DL Creatinine 6.96 MG/DL Random Glucose 115 MG/DL Total Protein 5.4 GM/DL Albumin 2.4 GM/DL Calcium Level 7.3 MG/DL Phosphorus Level 3.3 MG/DL Sodium Level 134 MEQ/L Potassium Level 3.9 MEQ/L Chloride Level 98 MEQ/L Carbon Dioxide Level 28.5 MEQ/L Anion Gap 8 MEQ/L Estimat Glomerular Filtration Rate 8 ML/MIN Protein Corrected Calcium 8.2 MG/DL Administered Medications Medications (Trade) Dose Ordered Sig/Daniel Route PRN Reason Start Time Stop Time Status Last Admin Dose Admin Sodium Chloride (NS Flush) 2 ml UNSCH PRN IV FLUSH FLUSH AFTER USING IV ACCESS 10/24/16 01:45 11/10/16 04:17 Sodium Chloride (NS Flush) 2 ml BID IV FLUSH 10/24/16 09:00 11/09/16 20:17 Doxycycline Hyclate (Vibratab) 100 mg Q12HR PO 10/24/16 09:00 11/09/16 20:16 Sodium Chloride (NS Flush) DAILY IVF 10/25/16 09:00 11/05/16 12:12 Heparin Sodium (Porcine) (Heparin Central Flush) DAILY IV FLUSH 10/25/16 09:00 10/26/16 08:01 Lactobacillus Acidophilus (Lactinex) 1 tab TID PO 10/24/16 18:00 11/09/16 16:51 Miscellaneous (Pill Splitter) 1 ea UNSCH PRN OTHER SEE LABEL COMMENTS 10/30/16 06:45 10/30/16 06:36 Sodium Chloride 1,000 ml @ 42 mls/hr [id number] IV 10/30/16 08:30 11/10/16 04:31 Bumetanide (Bumex Inj) 2 mg BID@18 IV PUSH 10/30/16 09:00 11/09/16 16:57 Sodium Chloride 1,000 ml @ 0 mls/hr Q0M PRN IV For Prime & Rinse Back 10/30/16 08:47 11/07/16 10:47 Sodium Chloride (NS Flush) 5 ml UNSCH PRN IV FLUSH WITH DIALYSIS 10/30/16 09:00 11/10/16 04:18 Heparin Sodium (Porcine) (Heparin Inj) UNSCH PRN .XX WITH DIALYSIS 10/30/16 09:00 11/07/16 10:47 Gentamicin Sulfate (Gentamicin (Dialysis) Inj) 20 mg UNSCH PRN IV WITH DIALYSIS 10/30/16 09:00 11/07/16 10:47 Ondansetron HCl (Zofran Inj) 4 mg UNSCH PRN IV WITH DIALYSIS 10/30/16 09:00 11/03/16 23:59 Acetaminophen (Tylenol) 650 mg UNSCH PRN PO for headach, pain, temp > 101F 10/30/16 09:00 11/07/16 23:21 Cefepime HCl 1000 mg/Sodium Chloride 100 ml @ 200 mls/hr Q24H IV 10/31/16 12:00 11/09/16 12:45 Filgrastim (Neupogen Inj) 480 mcg DAILY@14 SQ 10/31/16 14:00 11/09/16 13:12 Mupirocin (Bactroban 2% Oint) 1 applic Q12HR TOPICAL 11/01/16 21:00 11/02/16 21:00 Allopurinol (Zyloprim) 200 mg DAILY PO 11/02/16 09:00 11/09/16 08:52 Sevelamer Carbonate (Renvela) 2,400 mg TIDAC PO 11/03/16 12:15 11/09/16 16:52 Ondansetron HCl (Zofran Inj) 4 mg Q6H PRN IV PUSH nausea 11/04/16 08:45 11/09/16 03:30 Simethicone (Mylicon Chew) 80 mg PCHS CHEW 11/04/16 10:30 11/09/16 20:16 Calcium/Vitamin D (Oscal-D 250-125) 500 mg Q12HR PO 11/07/16 21:00 11/09/16 20:16 Hydromorphone HCl (Dilaudid Pf Inj) 1 mg Q3H PRN IV PAIN 6-10 11/08/16 16:45 11/09/16 06:36 Sucralfate (Carafate Liq) 1 gm ACHS PO 11/08/16 21:00 11/10/16 06:09 Pantoprazole Sodium (Protonix Inj) 40 mg Q12H IV PUSH 11/08/16 17:45 11/10/16 04:30 Diltiazem HCl (Cardizem) 60 mg Q6H PO 11/09/16 14:00 11/10/16 02:03 Objective Remarks GENERAL APPEARANCE: Mr. Chou is an elderly male, he is tall and heavy-set, He is laying in bed, has 2 or 3 layers of blankets on him and his hands are trembling. He appears tired fatigued and pale today. HEENT: Head atraumatic, normocephalic, conjunctivae are pale. Sclerae are anicteric, EOMI, PERRLA, oral exam no pharyngeal erythema. He has a submucosal bruise along the right side of the soft palate. NECK: No palpable cervical or supraclavicular lymphadenopathy. Right IJ Vas-Cath in place. RESPIRATORY: Good air movement bilaterally over the upper and middle lung zones , decreased breath sounds over the bases. No added breath sounds. CARDIOVASCULAR: Regular rate and rhythm, S1-S2. No obvious murmurs, gallops. ABDOMEN: Obese belly, soft, nontender, nondistended, no palpable organ enlargement, specifically no hepatosplenomegaly. EXTREMITIES: Lower extremities, positive for pretibial edema. No calf tenderness. PICC line in right arm. JAZ/LYMPH EXAMINATION: No cervical lymphadenopathy, no axillary lymphadenopathy and no inguinal lymphadenopathy. [facility]: Exam without any abnormal findings specifically no motor or sensory deficits. 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 His disease is negative for the BCR/ABL fusion gene. 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 S/p cycle 1 Hyper-CVAD + Rituxan and IT cytarabine. Plan 1. Started chemotherapy with Rituxan + hyper-CVAD on 10/26/2016; given the CD 20 positivity of the B-cell ALL on Flow cytometry on bone marrow aspiration specimen. [place] chromosome FISH negative for BCR/ABL. Neupogen started a dose of 480 g subcutaneous daily on 10/31/2016. Neutrophil count=0. Cytopenic due to chemotherapy associated marrow suppression. 2. TLS; with renal failure, elevated Uric acid, LDH and Phos. Started on hemodialysis on 10/30/2016, second treatment on 10/31/2016. Rasburicase given . continue renally dosed allopurinol. phosphorus remains elevated (on Renvela) . Status post rasburicase on 10/30/2016. Uric acid level and LDH levels are declining. Meds have had doses adjusted to renal function. 3. Continue supportive transfusions; daily CBCs. patient requires irradiated blood products. +CMV status. 4. Low grade fevers: on Cefepime. Cultures negative. 5. AFib with RVR: rate controlled, appreciate cardiology input. 6. Dyspepsia: started Protonix will start when necessary Zofran every 6 hours. US Gallbladder indicated no evidence of biliary obstruction. His liver was noted to be diffusely fat infiltrated. LFTs have remained relatively normal. His epigastric pain is severe and seems out of proportion to the imaging study findings. Problem Qualifiers (1) Acute lymphocytic leukemia: Qualified Codes: C91.00 - Acute lymphoblastic leukemia not having achieved remission Sukhwinder Rice MD Nov 10, 2016 07:44
[2016-11-10] MEDS: SEVELAMER CARBONATE 800 MG TAB PO SCH ×3 (08:00→17:00)
[2016-11-10] MEDS: MUPIROCIN 2% OINT 22 GM TUBE TOPICAL SCH ×2 (09:00→20:08)
[2016-11-10] MEDS: SODIUM CHLORIDE 0.9% FLUSH 10 ML FLUSH IVF SCH (09:33)
[2016-11-10] MEDS: BUMETANIDE INJ 1 MG/4 ML VIAL IV PUSH SCH ×2 (09:34→18:20)
[2016-11-10] MEDS: DOXYCYCLINE HYCLATE 100 MG TAB PO SCH ×2 (09:34→20:08)
[2016-11-10] MEDS: ALLOPURINOL 100 MG TAB PO SCH (09:34)
[2016-11-10] MEDS: LACTOBACILLUS ACIDOPHILUS TAB PO SCH ×3 (09:34→18:20)
[2016-11-10] MEDS: CALCIUM/VITAMIN D 250 MG/125 U TAB PO SCH ×2 (09:35→20:08)
[2016-11-10] MEDS: SIMETHICONE 80 MG CHEWABLE TAB CHEW SCH ×4 (09:35→20:08)
[2016-11-10] MEDS: SODIUM CHLORIDE 0.9% FLUSH 10 ML FLUSH IV FLUSH SCH ×2 (09:48→20:11)
--- NOTE | 2016-11-10 10:00 | HHI.NPPN ---
Subjective General Problems: Edema, Hypertension Renal Failure: Acute Interval History He is reporting severe fatigue, low appetite. Creatinine continues to elevate. Has low grade fevers. (Nava Cabral) Review of Systems General Constitutional: Fatigue (Nava Cabral) Respiratory Lungs: SOB (Nava Cabral) Cardiovascular Cardiac: Edema, YOUNGER (Nava Cabral) Gastrointestinal Gastrointestinal: Nausea & Vomiting GI Remarks loss of appetite (Nava Cabral) Objective Data Data 11/10/16 11/11/16 18:59 06:59 Intake Total 320 ml Output Total 400 ml Balance -80 ml Intake Oral 320 ml Output Urine Total 400 ml Vital Signs Date Time Temp Pulse Resp B/P (MAP) Pulse Ox O2 Delivery O2 Flow Rate FiO2 11/10/16 08:00 99.6 86 18 137/63 (87) 95 11/10/16 07:37 99.3 11/10/16 04:14 98.9 85 104/52 (69) 95 11/10/16 04:12 85 11/10/16 01:58 89 112/53 (72) 11/10/16 00:08 93 11/10/16 00:00 99.6 94 20 103/51 (68) 96 11/09/16 20:16 98 11/09/16 20:07 99.4 91 20 139/60 (86) 97 11/09/16 18:00 100.4 86 20 141/63 (89) 97 11/09/16 12:00 98.8 86 22 120/60 (80) 100 (Nava Cabral) -: 11/10/16 0420 11/10/16 0420 Imaging Last 72 hours Impressions Gall Bladder Ultrasound 11/09/16 0000 Signed Impressions: Service Date/Time: Wednesday, November 09, 2016 12:22 - CONCLUSION: 1. Increased echogenicity throughout the liver suggestive of fatty infiltration. The liver is enlarged at 18.5 cm. 2. There are gallstones in the gallbladder. No biliary tract obstruction. Prasad Cade MD Abdomen/Pelvis CT 11/08/16 0000 Signed Impressions: Service Date/Time: Tuesday, November 08, 2016 15:00 - CONCLUSION: #1. Small right-sided pleural effusion. #2. Hazy increased density identified adjacent to the head of the pancreas as compared to the body and tail which may represent early changes of acute pancreatitis. Recommend correlation with patient's laboratory values. #3. Small anterior hernia with preperitoneal fat. This is seen approximately 2 cm superior to the umbilicus. Darcie Evans MD Tubes & Lines: Vas-Cath (Marianna,Nava B. BREAD ROOM HAND) Physical Exam General Appearance: Well Developed, Well Nourished, No Acute Distress, Comfortable (Marianna,Nava B. BREAD ROOM HAND) Eyes Eye Exam: Pupils Equal (Marianna,Nava B. BREAD ROOM HAND) Throat Throat Exam: Oral Mucosa [place] & Moist (Marianna,Nava B. BREAD ROOM HAND) Neck Neck Exam: Neck Supple (Marianna,Nava B. BREAD ROOM HAND) Pulmonary Resp Exam: Clear Bilaterally, Breath Sounds Equal (Marianna,Nava B. BREAD ROOM HAND) Cardiology CV Exam: Normal Sinus Rhythm, Good Perfusion (Marianna,Nava B. BREAD ROOM HAND) Gastrointestinal/Abdomen GI Exam: Soft, Non-Tender, Bowel Sounds Present (Marianna,Nava B. BREAD ROOM HAND) Musculoskeletal MS Exam: Joints Intact, Normal Gait, Normal Tone (Marianna,Nava B. BREAD ROOM HAND) Integumentary Skin Exam: Clear, Warm, Dry, Intact (Marianna,Nava B. BREAD ROOM HAND) Extremeties Extremities Exam: Pedal Pulses Palpable, Trace Edema (Marianna,Nava B. BREAD ROOM HAND) Neurologic Neuro Exam: Alert, Awake, Oriented, Speech Clear, Moving All Extremities (Marianna,Nava B. BREAD ROOM HAND) Psychiatric Psych Exam: Appropriate Responses (Marianna,Nava B. 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 (3) Hyperphosphatemia ICD Codes: E83.39 - Other disorders of phosphorus metabolism Status: Acute Plan: hold renvela as he has minimal oral intake and phosphorous level is acceptable continue to monitor (4) Hypocalcemia ICD Codes: E83.51 - Hypocalcemia Status: Acute Plan: follow serum calcium level Avoid IV calcium administration. Continue to treat hyperphosphatemia (5) Pancytopenia ICD Codes: D61.818 - Other pancytopenia Status: Acute Plan: ID and oncology following, he is neutropenic on cefepime and doxycycline monitor drug levels and renally dose medications if appropriate PRBC and pooled platelets ordered for transfusion today (Nava Cabral) Plan patient was seen and examined. Agree with above assessment and plan. Await renal recovery. Monitor urine output and renal function (Clay Galicia MD) Problem Qualifiers (1) Acute lymphocytic leukemia: Qualified Codes: C91.00 - Acute lymphoblastic leukemia not having achieved remission Nava Cabral Nov 10, 2016 10:00 Clay Galicia MD Nov 10, 2016 10:50
[2016-11-10] MEDS ORDERED: MEGESTROL ACETATE SUSP 400 MG/10 ML CUP PO ONE (10:15)
--- NOTE | 2016-11-10 10:35 | HHI.GIFU ---
Subjective Remarks Feeling better today, overall tired, minimal abdominal discomfort. and no more diarrhea. Objective Vitals I&O Vital Signs Date Time Temp Pulse Resp B/P (MAP) Pulse Ox O2 Delivery O2 Flow Rate FiO2 11/10/16 08:00 99.6 86 18 137/63 (87) 95 11/10/16 07:58 84 11/10/16 07:37 99.3 11/10/16 04:14 98.9 85 104/52 (69) 95 11/10/16 04:12 85 11/10/16 01:58 89 112/53 (72) 11/10/16 00:08 93 11/10/16 00:00 99.6 94 20 103/51 (68) 96 11/09/16 20:16 98 11/09/16 20:07 99.4 91 20 139/60 (86) 97 11/09/16 18:00 100.4 86 20 141/63 (89) 97 11/09/16 12:00 98.8 86 22 120/60 (80) 100 I/O 11/09/16 11/09/16 11/09/16 11/10/16 11/10/16 11/10/16 06:59 14:59 22:59 06:59 14:59 22:59 Intake Total 1020 ml 304 ml 840 ml 850 ml 320 ml Output Total 1250 ml 350 ml 400 ml Balance 1020 ml 304 ml -410 ml 500 ml -80 ml Intake Oral 840 ml 320 ml IV Total 1020 ml 850 ml Platelets 284 ml Blood Product IV Normal Saline Flush 20 ml Output Urine Total 1250 ml 350 ml 400 ml # Voids 5 Laboratory Laboratory Tests Test 11/10/16 04:20 White Blood Count 0.1 Red Blood Count 2.29 Hemoglobin 7.2 Hematocrit 20.9 Mean Corpuscular Volume 91.2 Mean Corpuscular Hemoglobin 31.4 Mean Corpuscular Hemoglobin Concent 34.4 Red Cell Distribution Width 15.9 Platelet Count 7 Mean Platelet Volume 7.2 CBC Comment AUTO DIFF Differential Total Cells Counted 10 Neutrophils % (Manual) 50 Band Neutrophils % 10 Lymphocytes % 40 Neutrophils # (Manual) 0.1 Differential Comment FINAL DIFF MANUAL Platelet Estimate RARE Platelet Morphology Comment NORMAL Red Cell Morphology Comment NORMAL Blood Urea Nitrogen 63 Creatinine 6.96 Random Glucose 115 Total Protein 5.4 Albumin 2.4 Calcium Level 7.3 Phosphorus Level 3.3 Sodium Level 134 Potassium Level 3.9 Chloride Level 98 Carbon Dioxide Level 28.5 Anion Gap 8 Estimat Glomerular Filtration Rate 8 Protein Corrected Calcium 8.2 Date/Time Source Procedure Growth Status 10/29/16 11:49 Blood Peripheral Aerobic Blood Culture - Final NO GROWTH IN 5 DAYS Complete 10/29/16 11:49 Blood Peripheral Anaerobic Blood Culture - Final NO GROWTH IN 5 DAYS Complete 10/29/16 09:20 Urine Random Urine Urine Culture - Final NO GROWTH IN 48 HOURS. Complete Physical Exam HEENT: Pupils round and reactive to light; normocephalic; atraumatic; no jaundice. Throat is clear. NECK: Neck is supple, no JVD, no lymphadenopathy. CHEST: Chest is clear to auscultation and percussion. CARDIAC: Regular rate and rhythm with no murmur gallop or rubs. ABDOMEN: Soft, slight distended EXTREMITIES: No clubbing, cyanosis, or edema. SKIN: Normal; no rash; no jaundice. OPERATIONS CONSULTANT: No focal deficits; alert and oriented times three. Assessment and Plan Plan ASSESSMENT: - Epigastric discomfort, belching. Pt denies any prior hx of GERD, PUD, Pancreatitis, or GB disease- although he does report frequent belching his whole life. Since starting chemotherapy, he complains of a constant epigastric discomfort/bloating (denies this being pain), worse with oral intake. No n/v, no heartburn or reflux. No melena/hematochezia. CT scan abdomen and pelvis (11/08/16)----> small right sided pleural effusion, hazy increased density identified adjacent to the head of the pancreas as compared to the body and tail which may represent early changes of acute pancreatitis. Recommend correlation with patient's laboratory values. Small anterior hernia with preperitoneal fat. This is seen approximately 2 cm superior to the umbilicus. Lipase unremarkable at 135. LFT on 11/05 were unremarkable. ? gastritis, duodenitis, early pancreatitis. Would start by increasing Protonix 40mg IV BID, add Carafate ACHS. Will get RUQ US to r/o pericholecystic fluid/wall thickening. Also check LFTs. If not improvement and US negative, then consider EGD after transfusion of platelets once neutropenia improves. If unable, ? upper gi series. - Diarrhea. CDiff negative. Imodium. 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 Rituxan and hyper-CVAD started 10/26. Per oncology - TLS, renal failure. Started on HD- Thu/Thu/Thu per nurse. - Severe pancytopenia, WBC 0.1, H/H 8.0/23.0, Plt 8,Transfusions per hematology/ oncology - Neutropenic fever. Neutrophil 0. On Neupogen. BCx no growth (10/29) - New onset atrial fibrillation, HTN, Pneumonia. Abx per primary. PLAN: - MAMIE - Check stool studies - Continue current treatment plan. - Further recommendations to follow. Junior Hollingsworth MD Nov 10, 2016 10:35
[2016-11-10] MEDS: diphenhydrAMINE HCL 25 MG CAP PO PRN (10:55)
[2016-11-10] MEDS: ACETAMINOPHEN 325 MG TAB PO PRN (10:56)
--- NOTE | 2016-11-10 11:36 | HHI.PR ---
Subjective Remarks Patient complains of diffuse tremors. Correlation between tumor lysis syndrome and tremors is discussed with the patient. Progression and anemia and it drop in platelets is present this morning. Objective Vital Signs Date Time Temp Pulse Resp B/P (MAP) Pulse Ox O2 Delivery O2 Flow Rate FiO2 11/10/16 08:00 99.6 86 18 137/63 (87) 95 11/10/16 07:58 84 11/10/16 07:37 99.3 11/10/16 04:14 98.9 85 104/52 (69) 95 11/10/16 04:12 85 11/10/16 01:58 89 112/53 (72) 11/10/16 00:08 93 11/10/16 00:00 99.6 94 20 103/51 (68) 96 11/09/16 20:16 98 11/09/16 20:07 99.4 91 20 139/60 (86) 97 11/09/16 18:00 100.4 86 20 141/63 (89) 97 11/09/16 12:00 98.8 86 22 120/60 (80) 100 I/O 11/09/16 11/09/16 11/09/16 11/10/16 11/10/16 11/10/16 07:00 15:00 23:00 07:00 15:00 23:00 Intake Total 1020 ml 304 ml 840 ml 850 ml 320 ml Output Total 1250 ml 350 ml 400 ml Balance 1020 ml 304 ml -410 ml 500 ml -80 ml Intake Oral 840 ml 320 ml IV Total 1020 ml 850 ml Platelets 284 ml Blood Product IV Normal Saline Flush 20 ml Output Urine Total 1250 ml 350 ml 400 ml # Voids 5 Result Diagram: 11/10/1641911/10/16419 Objective Remarks GENERAL: NAD, A&Ox3 HEAD: Normocephalic. NECK: Supple, trachea midline. No lymphadenopathy. EYES: No scleral icterus. No injection or drainage. CARDIOVASCULAR: Regular rate and rhythm without murmurs, gallops, or rubs. RESPIRATORY: Breath sounds equal bilaterally. No accessory muscle use. GASTROINTESTINAL: Abdomen soft, non-tender, nondistended. MUSCULOSKELETAL: No cyanosis, or edema. SKIN: Warm and dry. NEURO: No focal neurological deficitis. A/P Problem List: (1) Thrombocytopenia ICD Code: D69.6 - Thrombocytopenia, unspecified Status: Acute (2) Atrial fibrillation ICD Code: I48.91 - Unspecified atrial fibrillation Status: Acute (3) Acute kidney injury ICD Code: N17.9 - Acute kidney failure, unspecified Status: Acute (4) Hypocalcemia ICD Code: E83.51 - Hypocalcemia Status: Acute (5) Hyperphosphatemia ICD Code: E83.39 - Other disorders of phosphorus metabolism Status: Acute (6) Hypertension ICD Code: I10 - Essential (primary) hypertension Status: Chronic (7) Acute lymphocytic leukemia ICD Code: C91.00 - Acute lymphoblastic leukemia not having achieved remission Status: Acute (8) Pancytopenia ICD Code: D61.818 - Other pancytopenia Status: Acute (9) Pneumonia ICD Code: J18.9 - Pneumonia, unspecified organism Status: Acute Assessment and Plan Assessment and Plan 71 years old male admitted secondary to tumor lysis syndrome with underlying ALL. ALL Status post chemotherapy Tumor lysis syndrome Pancytopenia Continue allopurinol 1 unit of packed red blood cells and 1 unit of platelets ordered by hematology oncology for transfusion on the morning of 11/10/16 I've added one more unit of packed red blood cells to be transfused on 11/10/16 Acute renal failure Related to tumor lysis syndrome Continue hemodialysis Nephrology following Continue Bumex Paroxysmal atrial fibrillation Recent history of A. fib RVR No recurrence of RVR thus far since admitted his last episode on 11/08/16 Continue by mouth Cardizem 60 mg by mouth 4 times a day Aspirin on hold secondary to pancytopenia Pneumonia Neutropenic fever Continue cefepime, vancomycin, doxycycline ID following Continue Neupogen Hypertension Follow blood pressures Continue Cardizem as above Diarrhea Continue Lactinex Follow clinically Poor appetite Likely related to chemotherapy Start Megace DVT prophylaxis SCDs No blood thinners secondary to degree of anemia and pancytopenia Problem Qualifiers (1) Atrial fibrillation: (2) Acute lymphocytic leukemia: Qualified Codes: C91.00 - Acute lymphoblastic leukemia not having achieved remission (3) Pneumonia: Matt Cash MD Nov 10, 2016 11:36
--- NOTE | 2016-11-10 12:08 | HHI.IDPN ---
Note Infectious Disease Note Patient feels tired. Having low grade fever. No BM last 2 days. Denies chills, SOB, nausea. Abdominal pain. Occasionally coughs up phlem. Produces little urine. PAST MEDICAL HISTORY 1. Rheumatic fever 2. Removal of vocal polyps in his 20s. 3. Appendectomy ALLERGIES No drug allergies. MEDICATIONS 1. Vancomycin 2. Cefepime 3. Doxycycline OBJECTIVE: Vital Signs Date Time Temp Pulse Resp B/P (MAP) Pulse Ox O2 Delivery O2 Flow Rate FiO2 11/10/16 11:37 99.7 85 16 134/59 96 11/10/16 08:00 99.6 86 18 137/63 (87) 95 11/10/16 07:58 84 11/10/16 07:37 99.3 11/10/16 04:14 98.9 85 104/52 (69) 95 11/10/16 04:12 85 11/10/16 01:58 89 112/53 (72) 11/10/16 00:08 93 11/10/16 00:00 99.6 94 20 103/51 (68) 96 11/09/16 20:16 98 11/09/16 20:07 99.4 91 20 139/60 (86) 97 11/09/16 18:00 100.4 86 20 141/63 (89) 97 11/09/16 12:00 98.8 86 22 120/60 (80) 100 11/10/16 11/10/16 11/11/16 15:00 23:00 07:00 Intake Total 330 ml Output Total 400 ml Balance -70 ml Intake Oral 320 ml Blood Product IV Normal Saline Flush 10 ml Output Urine Total 400 ml Laboratory Tests Test 11/09/16 04:56 11/10/16 04:20 White Blood Count 0.1 TH/MM3 0.1 TH/MM3 Red Blood Count 2.73 MIL/MM3 2.29 MIL/MM3 Hemoglobin 8.4 GM/DL 7.2 GM/DL Hematocrit 25.0 % 20.9 % Mean Corpuscular Volume 91.8 FL 91.2 FL Mean Corpuscular Hemoglobin 30.8 PG 31.4 PG Mean Corpuscular Hemoglobin Concent 33.6 % 34.4 % Red Cell Distribution Width 16.5 % 15.9 % Platelet Count 4 TH/MM3 7 TH/MM3 Mean Platelet Volume 8.2 FL 7.2 FL CBC Comment AUTO DIFF AUTO DIFF Differential Total Cells Counted 20 10 Neutrophils % (Manual) 20 % 50 % Band Neutrophils % 15 % 10 % Lymphocytes % 65 % 40 % Neutrophils # (Manual) 0.0 TH/MM3 0.1 TH/MM3 Differential Comment FINAL DIFF MANUAL FINAL DIFF MANUAL Toxic Granulation 1+ Dohle Bodies PRESENT Platelet Estimate RARE RARE Platelet Morphology Comment NORMAL NORMAL Red Cell Morphology Comment NORMAL Laboratory Tests Test 11/09/16 04:56 11/10/16 04:20 Blood Urea Nitrogen 54 MG/DL 63 MG/DL Creatinine 6.14 MG/DL 6.96 MG/DL Random Glucose 123 MG/DL 115 MG/DL Total Protein 6.0 GM/DL 5.4 GM/DL Albumin 2.7 GM/DL 2.4 GM/DL Calcium Level 7.4 MG/DL 7.3 MG/DL Magnesium Level 1.6 MG/DL Alkaline Phosphatase 49 U/L Aspartate Amino Transf (AST/SGOT) 11 U/L Alanine Aminotransferase (ALT/SGPT) 23 U/L Total Bilirubin 0.9 MG/DL Sodium Level 137 MEQ/L 134 MEQ/L Potassium Level 3.9 MEQ/L 3.9 MEQ/L Chloride Level 98 MEQ/L 98 MEQ/L Carbon Dioxide Level 26.9 MEQ/L 28.5 MEQ/L Anion Gap 12 MEQ/L 8 MEQ/L Estimat Glomerular Filtration Rate 9 ML/MIN 8 ML/MIN Protein Corrected Calcium 8.0 MG/DL 8.2 MG/DL Phosphorus Level 3.3 MG/DL IMAGING: Gall Bladder Ultrasound 11/09/16 0000 Signed Impressions: Service Date/Time: Wednesday, November 09, 2016 12:22 - CONCLUSION: 1. Increased echogenicity throughout the liver suggestive of fatty infiltration. The liver is enlarged at 18.5 cm. 2. There are gallstones in the gallbladder. No biliary tract obstruction. Prasad Cade MD Abdomen/Pelvis CT 11/08/16 0000 Signed Impressions: Service Date/Time: Tuesday, November 08, 2016 15:00 - CONCLUSION: #1. Small right-sided pleural effusion. #2. Hazy increased density identified adjacent to the head of the pancreas as compared to the body and tail which may represent early changes of acute pancreatitis. Recommend correlation with patient's laboratory values. #3. Small anterior hernia with preperitoneal fat. This is seen approximately 2 cm superior to the umbilicus. Darcie Evans MD Renal Ultrasound 10/30/16 0000 Signed Impressions: Service Date/Time: October 08:13 - CONCLUSION: Unremarkable exam with no evidence of hydronephrosis. Wander Hodges MD Chest X-Ray 10/29/16 0000 Signed Impressions: Service Date/Time: Saturday, October 29, 2016 08:10 - CONCLUSION: No acute disease. Dion Marmolejo Jr., MD PHYSICAL EXAMINATION GENERAL: No acute distress. HEENT: No icterus. Oropharynx moist mucosa, no lesions. NECK: Supple, No adenopathy or swelling. LUNGS: Breath sounds clear, decreased. HEART: S1 and S2 without audible murmurs, rubs or gallops. ABDOMEN: Bowel sounds present, soft, and nontender. EXTREMITIES: No clubbing, cyanosis or edema. SKIN: No rash. Ecchymosis at r. flank. NEUROLOGIC: No gross focal findings. PSYCHIATRIC: Calm and cooperative. IMPRESSION 1. Acute myelogenous leukemia with pancytopenia. Patient post induction chemotherapy. 2. Febrile neutropenia. Negative cultures. Counts continue to be low. 3. Acute renal failure. On hemodialysis. RECOMMENDATIONS 1. Continue Cefepime. 2. Continue vancomycin. Pharmacy to monitor the levels and dosage. 3. Continue Doxycycline. 4. Monitor temperature. 5. Monitor for infection. Gene Hewitt MD Nov 10, 2016 12:08
[2016-11-10] MEDS ORDERED: CEFEPIME INJ 1,000 MG in SODIUM CHLORIDE 0.9% INJ 100 ML IV PRN (12:15)
[2016-11-10] MEDS: FILGRASTIM 480 MCG/1.6 ML VIAL SQ SCH (13:33)
[2016-11-10] MEDS: GENTAMICIN SULFATE (DIALYSIS USE ONLY) 20 MG/2 ML VIAL IV PRN (16:06)
[2016-11-10] MEDS: SODIUM CHLOR 0.9% 1000 ML INJ 1,000 ML IV PRN (16:07)
[2016-11-10] MEDS: CEFEPIME 1000 MG/NS 100 ML IV SCH ×2 (18:20)
[2016-11-11] VITALS (11 sets, daily range): BP systolic 124–159; BP diastolic 56–67; PULSE 72–90; RESP 16–22; TEMP 96.3–98.6; O2SAT 94–98
[2016-11-11] MEDS: DILTIAZEM HCL 60 MG TAB PO SCH ×4 (02:34→20:43)
[2016-11-11] MEDS: SODIUM CHLORIDE 0.9% FLUSH 10 ML FLUSH IV FLUSH PRN ×2 (04:41)
[2016-11-11] MEDS: PANTOPRAZOLE SODIUM 40 MG VIAL IV PUSH SCH ×2 (04:48→17:11)
[2016-11-11] MEDS: SODIUM CHLOR 0.9% 1000 ML INJ 1,000 ML IV SCH (04:55)
[2016-11-11 05:18] LABS: HEMATOCRIT 26.3 % (39.0-51.0); MEAN CELL VOLUME 89.9 FL (80.0-100.0); MEAN CORPUSCULAR HEMOGLOBIN 32.2 PG (27.0-34.0); MEAN CORPUSCULAR HGB CONC 35.8 % (32.0-36.0); RED BLOOD COUNT 2.92 MIL/MM3 (4.50-5.90); RED CELL DISTRIBUTION WIDTH 15.2 % (11.6-17.2); WHITE BLOOD COUNT 0.6 TH/MM3 (4.0-11.0)
[2016-11-11 05:28] LABS: HEMO FLAGS AUTO DIFF
[2016-11-11 05:31] LABS: PLATELET COUNT 12 TH/MM3 (150-450)
[2016-11-11 05:44] LABS: BICARBONATE 29.1 MEQ/L (21.0-32.0); CALCIUM-PROTEIN CORRECTED 8.2 MG/DL (8.5-10.1); POTASSIUM 3.8 MEQ/L (3.5-5.1)
[2016-11-11] MEDS: SUCRALFATE 1 GM/10 ML CUP PO SCH ×4 (07:01→22:36)
--- NOTE | 2016-11-11 07:56 | PD.ONC.PN ---
Subjective Subjective Remarks Patient seen and examined, vital signs, medications, labs and microbiology reviewed. Subjectively; the patient reports continued fatigue and loss of appetite. He did attempt to eat a hamburger last night but reports having had pain with swallowing especially along the left side of his throat. He denies fevers or chills, reports his breathing is much more comfortable after receiving 2 units packed red blood cells yesterday. He continues to urinate several times a day. He had a bowel movement which was dark and was sent off first will for occult blood testing last night. He remains afebrile, presently being dosed with vancomycin and cefepime. Objective Data Date Time Temp Pulse Resp B/P (MAP) Pulse Ox O2 Delivery O2 Flow Rate FiO2 11/11/16 04:39 98.6 84 16 124/59 (80) 94 11/11/16 04:04 79 11/11/16 00:13 72 11/11/16 00:00 97.1 83 18 133/63 (86) 94 11/10/16 20:05 98.4 89 18 121/55 (77) 97 11/10/16 20:02 92 11/10/16 18:27 98.4 89 16 153/70 (97) 96 11/10/16 16:59 98.0 79 20 150/74 11/10/16 13:34 97.8 84 16 131/59 95 11/10/16 12:52 97.0 80 16 122/59 95 11/10/16 12:28 98.7 86 16 131/63 93 11/10/16 12:03 98.7 86 16 131/63 93 11/10/16 12:02 82 11/10/16 11:37 99.7 85 16 134/59 96 11/10/16 08:00 99.6 86 18 137/63 (87) 95 11/10/16 07:58 84 11/11/16 11/11/16 11/11/16 07:00 15:00 23:00 Intake Total 790 ml 210 ml Output Total 350 ml 200 ml Balance 440 ml 10 ml Result Diagram: 11/11/1643911/11/16439 Laboratory Results Laboratory Tests Test 11/11/16 04:40 White Blood Count 0.6 TH/MM3 Red Blood Count 2.92 MIL/MM3 Hemoglobin 9.4 GM/DL Hematocrit 26.3 % Mean Corpuscular Volume 89.9 FL Mean Corpuscular Hemoglobin 32.2 PG Mean Corpuscular Hemoglobin Concent 35.8 % Red Cell Distribution Width 15.2 % Platelet Count 12 TH/MM3 Mean Platelet Volume 7.5 FL CBC Comment AUTO DIFF Blood Urea Nitrogen 41 MG/DL Creatinine 4.92 MG/DL Random Glucose 101 MG/DL Total Protein 5.7 GM/DL Albumin 2.4 GM/DL Calcium Level 7.4 MG/DL Alkaline Phosphatase 46 U/L Aspartate Amino Transf (AST/SGOT) 11 U/L Alanine Aminotransferase (ALT/SGPT) 19 U/L Total Bilirubin 1.0 MG/DL Sodium Level 139 MEQ/L Potassium Level 3.8 MEQ/L Chloride Level 99 MEQ/L Carbon Dioxide Level 29.1 MEQ/L Anion Gap 11 MEQ/L Estimat Glomerular Filtration Rate 12 ML/MIN Protein Corrected Calcium 8.2 MG/DL Random Vancomycin Level 16.8 COMMENT Culture Results Microbiology Date/Time Source Procedure Growth Status 11/10/16 19:30 Stool Stool Cryptosporidium Exam Pending Received 11/10/16 19:30 Stool Stool Giardia Antigen (JENIFER) Pending Received 11/10/16 19:30 Stool Stool Pending Received Administered Medications Medications (Trade) Dose Ordered Sig/Daniel Route PRN Reason Start Time Stop Time Status Last Admin Dose Admin Sodium Chloride (NS Flush) 2 ml UNSCH PRN IV FLUSH FLUSH AFTER USING IV ACCESS 10/24/16 01:45 11/11/16 04:41 Sodium Chloride (NS Flush) 2 ml BID IV FLUSH 10/24/16 09:00 11/10/16 20:11 Doxycycline Hyclate (Vibratab) 100 mg Q12HR PO 10/24/16 09:00 11/10/16 20:08 Sodium Chloride (NS Flush) DAILY IVF 10/25/16 09:00 11/10/16 09:33 Heparin Sodium (Porcine) (Heparin Central Flush) DAILY IV FLUSH 10/25/16 09:00 10/26/16 08:01 Lactobacillus Acidophilus (Lactinex) 1 tab TID PO 10/24/16 18:00 11/10/16 18:20 Miscellaneous (Pill Splitter) 1 ea UNSCH PRN OTHER SEE LABEL COMMENTS 10/30/16 06:45 10/30/16 06:36 Sodium Chloride 1,000 ml @ 42 mls/hr [id number] IV 10/30/16 08:30 11/11/16 04:55 Bumetanide (Bumex Inj) 2 mg BID@,18 IV PUSH 10/30/16 09:00 11/10/16 18:20 Sodium Chloride 1,000 ml @ 0 mls/hr Q0M PRN IV For Prime & Rinse Back 10/30/16 08:47 11/10/16 16:07 Sodium Chloride (NS Flush) 5 ml UNSCH PRN IV FLUSH WITH DIALYSIS 10/30/16 09:00 11/11/16 04:41 Heparin Sodium (Porcine) (Heparin Inj) UNSCH PRN .XX WITH DIALYSIS 10/30/16 09:00 11/07/16 10:47 Gentamicin Sulfate (Gentamicin (Dialysis) Inj) 20 mg UNSCH PRN IV WITH DIALYSIS 10/30/16 09:00 11/10/16 16:06 Ondansetron HCl (Zofran Inj) 4 mg UNSCH PRN IV WITH DIALYSIS 10/30/16 09:00 11/03/16 23:59 Acetaminophen (Tylenol) 650 mg UNSCH PRN PO for headach, pain, temp > 101F 10/30/16 09:00 11/07/16 23:21 Diphenhydramine HCl (Benadryl) 25 mg UNSCH PRN PO for hives/itching/anaphylaxis 10/30/16 09:00 11/10/16 10:55 Cefepime HCl 1000 mg/Sodium Chloride 100 ml @ 200 mls/hr Q24H IV 10/31/16 12:00 11/10/16 18:20 Filgrastim (Neupogen Inj) 480 mcg DAILY@14 SQ 10/31/16 14:00 11/10/16 13:33 Mupirocin (Bactroban 2% Oint) 1 applic Q12HR TOPICAL 11/01/16 21:00 11/02/16 21:00 Allopurinol (Zyloprim) 200 mg DAILY PO 11/02/16 09:00 11/10/16 09:34 Sevelamer Carbonate (Renvela) 2,400 mg TIDAC PO 11/03/16 12:15 11/09/16 16:52 Ondansetron HCl (Zofran Inj) 4 mg Q6H PRN IV PUSH nausea 11/04/16 08:45 11/09/16 03:30 Simethicone (Mylicon Chew) 80 mg PCHS CHEW 11/04/16 10:30 11/10/16 20:08 Calcium/Vitamin D (Oscal-D 250-125) 500 mg Q12HR PO 11/07/16 21:00 11/10/16 20:08 Hydromorphone HCl (Dilaudid Pf Inj) 1 mg Q3H PRN IV PAIN 6-10 11/08/16 16:45 11/09/16 06:36 Sucralfate (Carafate Liq) 1 gm ACHS PO 11/08/16 21:00 11/11/16 07:01 Pantoprazole Sodium (Protonix Inj) 40 mg Q12H IV PUSH 11/08/16 17:45 11/11/16 04:48 Diltiazem HCl (Cardizem) 60 mg Q6H PO 11/09/16 14:00 11/11/16 02:34 Acetaminophen (Tylenol) 650 mg Q4H PRN PO SEE LABEL COMMENTS 11/10/16 07:30 11/10/16 10:56 Objective Remarks GENERAL APPEARANCE: Mr. Chou is an elderly male, he is tall and heavy-set, He is laying in bed, has 2 or 3 layers of blankets on him and his hands are trembling. He appears tired fatigued and pale today. HEENT: Head atraumatic, normocephalic, conjunctivae are pale. Sclerae are anicteric, EOMI, PERRLA, oral exam no pharyngeal erythema. He has a submucosal bruise along the right side of the soft palate. NECK: No palpable cervical or supraclavicular lymphadenopathy. Right IJ Vas-Cath in place. RESPIRATORY: Good air movement bilaterally over the upper and middle lung zones , decreased breath sounds over the bases. No added breath sounds. CARDIOVASCULAR: Regular rate and rhythm, S1-S2. No obvious murmurs, gallops. ABDOMEN: Obese belly, soft, nontender, nondistended, no palpable organ enlargement, specifically no hepatosplenomegaly. EXTREMITIES: Lower extremities, positive for pretibial edema. No calf tenderness. PICC line in right arm. JAZ/LYMPH EXAMINATION: No cervical lymphadenopathy, no axillary lymphadenopathy and no inguinal lymphadenopathy. GRAVITY PROSPECTING OBSERVER: Exam without any abnormal findings specifically no motor or sensory deficits. 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 His disease is negative for the BCR/ABL fusion gene. 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 S/p cycle 1 Hyper-CVAD + Rituxan and IT cytarabine. Plan 1. Started chemotherapy with Rituxan + hyper-CVAD on 10/26/2016; given the CD 20 positivity of the B-cell ALL on Flow cytometry on bone marrow aspiration specimen. [place] chromosome FISH negative for BCR/ABL. Neupogen started a dose of 480 g subcutaneous daily on 10/31/2016. Cytopenic due to chemotherapy associated marrow suppression. WBC count has improved to 0.6 as of today. 2. TLS; with renal failure, elevated Uric acid, LDH and Phos. Started on hemodialysis on 10/30/2016, second treatment on 10/31/2016. Rasburicase given . continue renally dosed allopurinol. phosphorus remains elevated (on Renvela) . Status post rasburicase on 10/30/2016. Uric acid level and LDH levels are declining. Meds have had doses adjusted to renal function. 3. Continue supportive transfusions; daily CBCs. patient requires irradiated blood products. +CMV status. 4. Low grade fevers: on Cefepime and vancomycin. Both dose modified to his renal function. 5. AFib with RVR: rate controlled, appreciate cardiology input. 6. Dyspepsia: started Protonix will start when necessary Zofran every 6 hours. US Gallbladder indicated no evidence of biliary obstruction. His liver was noted to be diffusely fat infiltrated. LFTs have remained relatively normal. His epigastric pain is severe and seems out of proportion to the imaging study findings. 7. Dysphagia: Empirically start him on nystatin swish and swallow 4 times daily for possible kerrie esophagitis. 8. Dark stool this morning; stool for occult blood testing ordered. Problem Qualifiers (1) Acute lymphocytic leukemia: Qualified Codes: C91.00 - Acute lymphoblastic leukemia not having achieved remission Sukhwinder Rice MD Nov 11, 2016 07:56
[2016-11-11 08:09] LABS: BANDS 20 % (0-6); NEUTROPHIL # MANUAL DIFF 0.4 TH/MM3 (1.8-7.7); POLYS (SEG NEUTROPHILS) 48 % (16-70); WBC DIFF SAMPLE 40
[2016-11-11 08:10] LABS: DOHLE BODIES PRESENT (NONE SEEN); PLATELET ESTIMATE SMEAR RARE (NORMAL); PLATELET MORPHOLOGY NORMAL (NORMAL); SCAN/DIFF FINAL DIFF MANUAL; TOXIC GRANULATION 2+ (NORMAL)
[2016-11-11] MEDS: SODIUM CHLORIDE 0.9% FLUSH 10 ML FLUSH IVF SCH (09:00)
[2016-11-11] MEDS: MUPIROCIN 2% OINT 22 GM TUBE TOPICAL SCH ×2 (09:00→20:44)
[2016-11-11] MEDS: SEVELAMER CARBONATE 800 MG TAB PO SCH (09:14)
[2016-11-11] MEDS: BUMETANIDE INJ 1 MG/4 ML VIAL IV PUSH SCH (09:14)
[2016-11-11] MEDS: MEGESTROL ACETATE SUSP 400 MG/10 ML CUP PO SCH (09:14)
[2016-11-11] MEDS: ALLOPURINOL 100 MG TAB PO SCH (09:15)
[2016-11-11] MEDS: LACTOBACILLUS ACIDOPHILUS TAB PO SCH ×3 (09:15→17:11)
[2016-11-11] MEDS: DOXYCYCLINE HYCLATE 100 MG TAB PO SCH ×2 (09:15→20:43)
[2016-11-11] MEDS: SIMETHICONE 80 MG CHEWABLE TAB CHEW SCH ×4 (09:15→20:44)
[2016-11-11] MEDS: CALCIUM/VITAMIN D 250 MG/125 U TAB PO SCH ×2 (09:15→20:44)
[2016-11-11] MEDS: SODIUM CHLORIDE 0.9% FLUSH 10 ML FLUSH IV FLUSH SCH ×2 (09:16→20:48)
[2016-11-11] MEDS: NYSTATIN SUSP 500,000 U/5 ML CUP SWISH-SWAL SCH ×4 (09:16→20:44)
--- NOTE | 2016-11-11 10:16 | HHI.NPPN ---
Subjective General Problems: Edema, Hypertension Renal Failure: Acute Interval History Out of bed in chair. Still with fatigue and poor appetite. Good urine output. (Nava Cabral) Review of Systems General Constitutional: Fatigue (Nava Cabral) Respiratory Lungs: SOB (Nava Cabral) Cardiovascular Cardiac: Edema, YOUNGER (Nava Cabral) Gastrointestinal Gastrointestinal: Nausea & Vomiting GI Remarks loss of appetite (Nava Cbaral) Objective Data Data 11/11/16 11/12/16 19:00 07:00 Intake Total 210 ml Output Total 200 ml Balance 10 ml Intake Oral 210 ml Output Urine Total 200 ml Vital Signs Date Time Temp Pulse Resp B/P (MAP) Pulse Ox O2 Delivery O2 Flow Rate FiO2 11/11/16 08:00 97.7 89 20 159/65 (96) 96 11/11/16 04:39 98.6 84 16 124/59 (80) 94 11/11/16 04:04 79 11/11/16 00:13 72 11/11/16 00:00 97.1 83 18 133/63 (86) 94 11/10/16 20:05 98.4 89 18 121/55 (77) 97 11/10/16 20:02 92 11/10/16 18:27 98.4 89 16 153/70 (97) 96 11/10/16 16:59 98.0 79 20 150/74 11/10/16 13:34 97.8 84 16 131/59 95 11/10/16 12:52 97.0 80 16 122/59 95 11/10/16 12:28 98.7 86 16 131/63 93 11/10/16 12:03 98.7 86 16 131/63 93 11/10/16 12:02 82 11/10/16 11:37 99.7 85 16 134/59 96 (Nava Cabral) -: 11/11/16 0440 11/11/16 0440 Microbiology 11/10/16 Cryptosporidium Exam, Received Pending 11/10/16 Giardia Antigen (JENIFER), Received Pending 11/10/16 , Received Pending Imaging Last 72 hours Impressions Gall Bladder Ultrasound 11/09/16 0000 Signed Impressions: Service Date/Time: Wednesday, November 09, 2016 12:22 - CONCLUSION: 1. Increased echogenicity throughout the liver suggestive of fatty infiltration. The liver is enlarged at 18.5 cm. 2. There are gallstones in the gallbladder. No biliary tract obstruction. Prasad Cade MD Tubes & Lines: Vas-Cath (Nava Cabral) Physical Exam General Appearance: Well Developed, Well Nourished, No Acute Distress, Comfortable (Nava Cabral B. ROOMING HOUSE INSPECTOR) Eyes Eye Exam: Pupils Equal (Nava Cabral B. ROOMING HOUSE INSPECTOR) Throat Throat Exam: Oral Mucosa [place] & Moist (Nava Cabral B. ROOMING HOUSE INSPECTOR) Neck Neck Exam: Neck Supple (Nava Cabral B. ROOMING HOUSE INSPECTOR) Pulmonary Resp Exam: Clear Bilaterally, Breath Sounds Equal (Nava Cabral B. ROOMING HOUSE INSPECTOR) Cardiology CV Exam: Normal Sinus Rhythm, Good Perfusion (Nava Cabral B. ROOMING HOUSE INSPECTOR) Gastrointestinal/Abdomen GI Exam: Soft, Non-Tender, Bowel Sounds Present, Positive Bowel Movement (Nava Cabral B. ROOMING HOUSE INSPECTOR) Musculoskeletal MS Exam: Joints Intact, Normal Gait, Normal Tone MS Remarks generalized weakness (Nava Cabral B. ROOMING HOUSE INSPECTOR) Integumentary Skin Exam: Clear, Warm, Dry, Intact (Nava Cabral B. ROOMING HOUSE INSPECTOR) Extremeties Extremities Exam: Pedal Pulses Palpable, Trace Edema (Nava Cabral B. ROOMING HOUSE INSPECTOR) Neurologic Neuro Exam: Alert, Awake, Oriented, Speech Clear, Moving All Extremities (Nava Cabral B. 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 (3) Hyperphosphatemia ICD Codes: E83.39 - Other disorders of phosphorus metabolism Status: Acute Plan: hold renvela as he has minimal oral intake and phosphorous level is acceptable continue to monitor (4) Hypocalcemia ICD Codes: E83.51 - Hypocalcemia Status: Acute Plan: follow serum calcium level Avoid IV calcium administration. hyperphosphatemia corrected (5) Pancytopenia ICD Codes: D61.818 - Other pancytopenia Status: Acute Plan: ID and oncology following, he is neutropenic on cefepime and doxycycline monitor drug levels and renally dose medications if appropriate PRBC and pooled platelets given 11/10 (Nava Cabral) Plan patient was seen and examined. He reports that his urine output has improved. Repeat labs tomorrow, dialysis only if necessary. Avoid nephrotoxic agents. Agree with above assessment and plan. (Clay Galicia MD) Problem Qualifiers (1) Acute lymphocytic leukemia: Qualified Codes: C91.00 - Acute lymphoblastic leukemia not having achieved remission Nava Cabral Nov 11, 2016 10:16 Clay Galicia MD Nov 11, 2016 11:33
--- NOTE | 2016-11-11 13:05 | HHI.IDPN ---
Note Infectious Disease Note Patient feels feels okay. notes pain on chewing last night. Afebrile. Denies chills, SOB, nausea. Abdominal pain. Occasionally coughs up phlem. No new complaints. PAST MEDICAL HISTORY 1. Rheumatic fever 2. Removal of vocal polyps in his 20s. 3. Appendectomy ALLERGIES No drug allergies. MEDICATIONS 1. Vancomycin 2. Cefepime 3. Doxycycline OBJECTIVE: Vital Signs Date Time Temp Pulse Resp B/P (MAP) Pulse Ox O2 Delivery O2 Flow Rate FiO2 11/11/16 08:00 97.7 89 20 159/65 (96) 96 11/11/16 04:39 98.6 84 16 124/59 (80) 94 11/11/16 04:04 79 11/11/16 00:13 72 11/11/16 00:00 97.1 83 18 133/63 (86) 94 11/10/16 20:05 98.4 89 18 121/55 (77) 97 11/10/16 20:02 92 11/10/16 18:27 98.4 89 16 153/70 (97) 96 11/10/16 16:59 98.0 79 20 150/74 11/10/16 13:34 97.8 84 16 131/59 95 11/10/16 12:52 97.0 80 16 122/59 95 11/11/16 11/11/16 11/12/16 14:59 22:59 06:59 Intake Total 218 ml Output Total 550 ml Balance -332 ml Intake Oral 210 ml IV Total 8 ml Output Urine Total 550 ml Laboratory Tests Test 11/10/16 04:20 11/11/16 04:40 White Blood Count 0.1 TH/MM3 0.6 TH/MM3 Red Blood Count 2.29 MIL/MM3 2.92 MIL/MM3 Hemoglobin 7.2 GM/DL 9.4 GM/DL Hematocrit 20.9 % 26.3 % Mean Corpuscular Volume 91.2 FL 89.9 FL Mean Corpuscular Hemoglobin 31.4 PG 32.2 PG Mean Corpuscular Hemoglobin Concent 34.4 % 35.8 % Red Cell Distribution Width 15.9 % 15.2 % Platelet Count 7 TH/MM3 12 TH/MM3 Mean Platelet Volume 7.2 FL 7.5 FL CBC Comment AUTO DIFF AUTO DIFF Differential Total Cells Counted 10 40 Neutrophils % (Manual) 50 % 48 % Band Neutrophils % 10 % 20 % Lymphocytes % 40 % 23 % Neutrophils # (Manual) 0.1 TH/MM3 0.4 TH/MM3 Differential Comment FINAL DIFF MANUAL FINAL DIFF MANUAL Platelet Estimate RARE RARE Platelet Morphology Comment NORMAL NORMAL Red Cell Morphology Comment NORMAL Monocytes % 10 % Toxic Granulation 2+ Dohle Bodies PRESENT Laboratory Tests Test 11/10/16 04:20 11/11/16 04:40 Blood Urea Nitrogen 63 MG/DL 41 MG/DL Creatinine 6.96 MG/DL 4.92 MG/DL Random Glucose 115 MG/DL 101 MG/DL Total Protein 5.4 GM/DL 5.7 GM/DL Albumin 2.4 GM/DL 2.4 GM/DL Calcium Level 7.3 MG/DL 7.4 MG/DL Phosphorus Level 3.3 MG/DL Sodium Level 134 MEQ/L 139 MEQ/L Potassium Level 3.9 MEQ/L 3.8 MEQ/L Chloride Level 98 MEQ/L 99 MEQ/L Carbon Dioxide Level 28.5 MEQ/L 29.1 MEQ/L Anion Gap 8 MEQ/L 11 MEQ/L Estimat Glomerular Filtration Rate 8 ML/MIN 12 ML/MIN Protein Corrected Calcium 8.2 MG/DL 8.2 MG/DL Alkaline Phosphatase 46 U/L Aspartate Amino Transf (AST/SGOT) 11 U/L Alanine Aminotransferase (ALT/SGPT) 19 U/L Total Bilirubin 1.0 MG/DL Microbiology Date/Time Source Procedure Growth Status 11/10/16 19:30 Stool Stool Cryptosporidium Exam Pending Received 11/10/16 19:30 Stool Stool Giardia Antigen (JENIFER) Pending Received 11/10/16 19:30 Stool Stool Pending Received IMAGING: Gall Bladder Ultrasound 11/09/16 0000 Signed Impressions: Service Date/Time: Wednesday, November 09, 2016 12:22 - CONCLUSION: 1. Increased echogenicity throughout the liver suggestive of fatty infiltration. The liver is enlarged at 18.5 cm. 2. There are gallstones in the gallbladder. No biliary tract obstruction. Prasad Cade MD Abdomen/Pelvis CT 11/08/16 0000 Signed Impressions: Service Date/Time: Tuesday, November 08, 2016 15:00 - CONCLUSION: #1. Small right-sided pleural effusion. #2. Hazy increased density identified adjacent to the head of the pancreas as compared to the body and tail which may represent early changes of acute pancreatitis. Recommend correlation with patient's laboratory values. #3. Small anterior hernia with preperitoneal fat. This is seen approximately 2 cm superior to the umbilicus. Darcie Evans MD PHYSICAL EXAMINATION GENERAL: No acute distress. HEENT: No icterus. Oropharynx moist mucosa, ecchymosis at the R upper palate. 2mm shallow ulcer with pale blue film in crater at upper right gum line. Edentulous. NECK: Supple, No adenopathy or swelling. LUNGS: Breath sounds clear, decreased. HEART: S1 and S2 without audible murmurs, rubs or gallops. ABDOMEN: Bowel sounds present, soft, and nontender. EXTREMITIES: No clubbing, cyanosis or edema. SKIN: No rash. Ecchymosis at r. flank. NEUROLOGIC: No gross focal findings. PSYCHIATRIC: Calm and cooperative. IMPRESSION 1. Acute Lymphoblastic leukemia with pancytopenia. Patient post induction chemotherapy. ( Previous notes that referred to leukemia diagnosis as AML - corrected as above) 2. Febrile neutropenia. Negative cultures. Counts continue to be low. 3. Acute renal failure. On hemodialysis. appears to be improving. 4. Gingival stomatitis. Probably herpetic. RECOMMENDATIONS 1. Continue Cefepime. 2. Continue vancomycin. Pharmacy to monitor the levels and dosage. 3. Continue Doxycycline. 4. Add Diflucan PO 5. Add PO Acyclovir. 6. Monitor temperature. 7. Monitor for infection. Gene Hewitt MD Nov 11, 2016 13:05
[2016-11-11] MEDS: FLUCONAZOLE 100 MG TAB PO SCH (13:24)
[2016-11-11] MEDS: ACYCLOVIR 200 MG CAP PO SCH ×2 (13:24→20:43)
[2016-11-11] MEDS: FILGRASTIM 480 MCG/1.6 ML VIAL SQ SCH (13:24)
--- NOTE | 2016-11-11 14:52 | HHI.PR ---
Subjective Remarks Improvement in CBC and platelets after transfusion. Patient out of bed in chair today. White blood cell count has trended up. Objective Vital Signs Date Time Temp Pulse Resp B/P (MAP) Pulse Ox O2 Delivery O2 Flow Rate FiO2 11/11/16 12:04 87 11/11/16 12:00 96.7 81 18 154/67 (96) 97 11/11/16 08:00 97.7 89 20 159/65 (96) 96 11/11/16 08:00 85 11/11/16 04:39 98.6 84 16 124/59 (80) 94 11/11/16 04:04 79 11/11/16 00:13 72 11/11/16 00:00 97.1 83 18 133/63 (86) 94 11/10/16 20:05 98.4 89 18 121/55 (77) 97 11/10/16 20:02 92 11/10/16 18:27 98.4 89 16 153/70 (97) 96 11/10/16 16:59 98.0 79 20 150/74 I/O 11/10/16 11/10/16 11/10/16 11/11/16 11/11/16 11/11/16 07:00 15:00 23:00 07:00 15:00 23:00 Intake Total 850 ml 1160 ml 550 ml 790 ml 218 ml Output Total 350 ml 700 ml 3250 ml 350 ml 700 ml Balance 500 ml 460 ml -2700 ml 440 ml -482 ml Intake Oral 320 ml 210 ml IV Total 850 ml 30 ml 150 ml 790 ml 8 ml Packed Cells 400 ml 400 ml Platelets 195 ml Blood Product IV Normal Saline Flush 215 ml Output Urine Total 350 ml 700 ml 250 ml 350 ml 700 ml Hemodialysis 3000 ml Result Diagram: 11/11/1643911/11/16439 Objective Remarks GENERAL: NAD, A&Ox3 HEAD: Normocephalic. NECK: Supple, trachea midline. No lymphadenopathy. EYES: No scleral icterus. No injection or drainage. CARDIOVASCULAR: Regular rate and rhythm without murmurs, gallops, or rubs. RESPIRATORY: Breath sounds equal bilaterally. No accessory muscle use. GASTROINTESTINAL: Abdomen soft, non-tender, nondistended. MUSCULOSKELETAL: No cyanosis, or edema. SKIN: Warm and dry. NEURO: No focal neurological deficitis. A/P Problem List: (1) Thrombocytopenia ICD Code: D69.6 - Thrombocytopenia, unspecified Status: Acute (2) Atrial fibrillation ICD Code: I48.91 - Unspecified atrial fibrillation Status: Acute (3) Acute kidney injury ICD Code: N17.9 - Acute kidney failure, unspecified Status: Acute (4) Hypocalcemia ICD Code: E83.51 - Hypocalcemia Status: Acute (5) Hyperphosphatemia ICD Code: E83.39 - Other disorders of phosphorus metabolism Status: Acute (6) Hypertension ICD Code: I10 - Essential (primary) hypertension Status: Chronic (7) Acute lymphocytic leukemia ICD Code: C91.00 - Acute lymphoblastic leukemia not having achieved remission Status: Acute (8) Pancytopenia ICD Code: D61.818 - Other pancytopenia Status: Acute (9) Pneumonia ICD Code: J18.9 - Pneumonia, unspecified organism Status: Acute Assessment and Plan Assessment and Plan 71 years old male admitted secondary to tumor lysis syndrome with underlying ALL. Follow CBC. Labs ordered. Follow BMP. Labs ordered. White blood cell count is improved today. Platelets and hemoglobin levels are improved today. ALL Status post chemotherapy Tumor lysis syndrome Pancytopenia Continue allopurinol 1 unit of packed red blood cells and 1 unit of platelets ordered by hematology oncology for transfusion on the morning of 11/10/16 I've added one more unit of packed red blood cells to be transfused on 11/10/16 Acute renal failure Related to tumor lysis syndrome Continue hemodialysis Nephrology following Continue Bumex Paroxysmal atrial fibrillation Recent history of A. fib RVR No recurrence of RVR thus far since admitted his last episode on 11/08/16 Continue by mouth Cardizem 60 mg by mouth 4 times a day Aspirin on hold secondary to pancytopenia Pneumonia Neutropenic fever Continue cefepime, vancomycin, doxycycline ID following Continue Neupogen Hypertension Follow blood pressures Continue Cardizem as above Diarrhea Continue Lactinex Follow clinically Poor appetite Likely related to chemotherapy Start Megace DVT prophylaxis SCDs No blood thinners secondary to degree of anemia and pancytopenia Problem Qualifiers (1) Atrial fibrillation: (2) Acute lymphocytic leukemia: Qualified Codes: C91.00 - Acute lymphoblastic leukemia not having achieved remission (3) Pneumonia: Matt Cash MD Nov 11, 2016 14:52
[2016-11-11] MEDS: CEFEPIME 1000 MG/NS 100 ML IV SCH ×2 (15:43)
[2016-11-11] MEDS: ONDANSETRON HCL 4 MG/2 ML VIAL IV PUSH PRN (20:57)
[2016-11-12] VITALS (10 sets, daily range): BP systolic 110–150; BP diastolic 54–72; PULSE 74–96; RESP 16–20; TEMP 96.7–99.1; O2SAT 94–98
[2016-11-12] MEDS: DILTIAZEM HCL 60 MG TAB PO SCH ×4 (02:21→21:09)
[2016-11-12] MEDS: SODIUM CHLOR 0.9% 1000 ML INJ 1,000 ML IV SCH (04:36)
[2016-11-12] MEDS: PANTOPRAZOLE SODIUM 40 MG VIAL IV PUSH SCH ×2 (04:37→16:46)
[2016-11-12 05:56] LABS: HEMATOCRIT 26.1 % (39.0-51.0); MEAN CORPUSCULAR HEMOGLOBIN 31.7 PG (27.0-34.0); MEAN CORPUSCULAR HGB CONC 34.8 % (32.0-36.0); RED BLOOD COUNT 2.86 MIL/MM3 (4.50-5.90); RED CELL DISTRIBUTION WIDTH 15.2 % (11.6-17.2); WHITE BLOOD COUNT 1.4 TH/MM3 (4.0-11.0)
[2016-11-12 05:57] LABS: HEMO FLAGS AUTO DIFF
[2016-11-12 05:58] LABS: PLATELET COUNT 9 TH/MM3 (150-450)
[2016-11-12 06:23] LABS: ALKALINE PHOSPHATASE 47 U/L (45-117); ALT (GPT) 19 U/L (12-78); ANION GAP 9 MEQ/L (5-15); AST (GOT) 13 U/L (15-37); BICARBONATE 29.1 MEQ/L (21.0-32.0); BLOOD UREA NITROGEN 53 MG/DL (7-18); CHLORIDE 97 MEQ/L (98-107); GLOMERULAR FILTRATION RATE 10 ML/MIN (>89); POTASSIUM 3.8 MEQ/L (3.5-5.1); SODIUM (NA) 135 MEQ/L (136-145); TOTAL BILIRUBIN ADULT 0.9 MG/DL (0.2-1.0)
[2016-11-12] MEDS: SUCRALFATE 1 GM/10 ML CUP PO SCH ×3 (06:53→21:09)
[2016-11-12 06:56] LABS: BANDS 19 % (0-6); BASOPHILS 1 % (0-2); METAMYELOCYTES 15 % (0-1); NEUTROPHIL # MANUAL DIFF 1.3 TH/MM3 (1.8-7.7); POLYS (SEG NEUTROPHILS) 61 % (16-70); WBC DIFF SAMPLE 100
[2016-11-12 06:57] LABS: PLATELET ESTIMATE SMEAR RARE (NORMAL); PLATELET MORPHOLOGY NORMAL (NORMAL)
[2016-11-12 06:58] LABS: SCAN/DIFF FINAL DIFF MANUAL
[2016-11-12] MEDS ORDERED: ACETAMINOPHEN 325 MG TAB PO PRN (07:30)
[2016-11-12] MEDS ORDERED: SODIUM CHLOR 0.9% 250 ML INJ 250 ML IV ONE (07:30)
[2016-11-12] MEDS ORDERED: diphenhydrAMINE HCL 25 MG CAP PO PRN (07:30)
--- NOTE | 2016-11-12 07:41 | PD.ONC.PN ---
Subjective Subjective Remarks Patient seen and examined, labs, vital signs, medication list and rn lactation consultant notes reviewed. Subjectively; the patient reports having had a better day yesterday, he tried to eat dinner last night but vomited shortly thereafter. He did drink boost/ ensure supplements. He denies difficulty breathing, denies overt bleeding, denies fevers or chills. He continues to urinate several times a day and had a total urine output of proximally 1600 mL yesterday. This morning he is a little distraught because he hallucinated that his came to visit him (she of ovarian cancer 2-3 years ago). Objective Data Date Time Temp Pulse Resp B/P (MAP) Pulse Ox O2 Delivery O2 Flow Rate FiO2 11/12/16 03:58 99.1 86 16 123/58 (79) 94 11/12/16 00:04 80 11/12/16 00:00 96.7 88 17 128/59 (82) 96 11/11/16 20:24 83 11/11/16 20:00 96.3 88 17 134/56 (82) 98 11/11/16 16:06 90 11/11/16 16:00 97.0 89 22 153/63 (93) 97 11/11/16 12:04 87 11/11/16 12:00 96.7 81 18 154/67 (96) 97 11/11/16 08:00 97.7 89 20 159/65 (96) 96 11/11/16 08:00 85 11/12/16 11/12/16 11/12/16 07:00 15:00 23:00 Intake Total 1000 ml Output Total 400 ml Balance 600 ml Result Diagram: 11/12/16 0405 11/12/16 0405 Laboratory Results Laboratory Tests Test 11/12/16 04:05 White Blood Count 1.4 TH/MM3 Red Blood Count 2.86 MIL/MM3 Hemoglobin 9.1 GM/DL Hematocrit 26.1 % Mean Corpuscular Volume 91.0 FL Mean Corpuscular Hemoglobin 31.7 PG Mean Corpuscular Hemoglobin Concent 34.8 % Red Cell Distribution Width 15.2 % Platelet Count 9 TH/MM3 Mean Platelet Volume 7.9 FL CBC Comment AUTO DIFF Differential Total Cells Counted 100 Neutrophils % (Manual) 61 % Band Neutrophils % 19 % Lymphocytes % 2 % Monocytes % 2 % Basophils % 1 % Neutrophils # (Manual) 1.3 TH/MM3 Metamyelocytes 15 % Differential Comment FINAL DIFF MANUAL Platelet Estimate RARE Platelet Morphology Comment NORMAL Red Cell Morphology Comment NORMAL Blood Urea Nitrogen 53 MG/DL Creatinine 5.75 MG/DL Random Glucose 97 MG/DL Total Protein 5.6 GM/DL Albumin 2.5 GM/DL Calcium Level 7.5 MG/DL Alkaline Phosphatase 47 U/L Aspartate Amino Transf (AST/SGOT) 13 U/L Alanine Aminotransferase (ALT/SGPT) 19 U/L Total Bilirubin 0.9 MG/DL Sodium Level 135 MEQ/L Potassium Level 3.8 MEQ/L Chloride Level 97 MEQ/L Carbon Dioxide Level 29.1 MEQ/L Anion Gap 9 MEQ/L Estimat Glomerular Filtration Rate 10 ML/MIN Random Vancomycin Level 13.5 COMMENT Culture Results Microbiology Date/Time Source Procedure Growth Status 11/10/16 19:30 Stool Stool Stool Occult Blood (JENIFER) - Final HEMOCCULT POSITIVE Complete 11/10/16 19:30 Stool Stool Cryptosporidium Exam Pending Received 11/10/16 19:30 Stool Stool Giardia Antigen (JENIFER) Pending Received 11/10/16 19:30 Stool Stool - Final NO ENTERIC PATHOGENS DETECTED BY PCR... Complete Administered Medications Medications (Trade) Dose Ordered Sig/Daniel Route PRN Reason Start Time Stop Time Status Last Admin Dose Admin Sodium Chloride (NS Flush) 2 ml UNSCH PRN IV FLUSH FLUSH AFTER USING IV ACCESS 10/24/16 01:45 11/11/16 04:41 Sodium Chloride (NS Flush) 2 ml BID IV FLUSH 10/24/16 09:00 11/11/16 20:48 Doxycycline Hyclate (Vibratab) 100 mg Q12HR PO 10/24/16 09:00 11/11/16 20:43 Sodium Chloride (NS Flush) DAILY IVF 10/25/16 09:00 11/10/16 09:33 Heparin Sodium (Porcine) (Heparin Central Flush) DAILY IV FLUSH 10/25/16 09:00 10/26/16 08:01 Lactobacillus Acidophilus (Lactinex) 1 tab TID PO 10/24/16 18:00 11/11/16 17:11 Miscellaneous (Pill Splitter) 1 ea UNSCH PRN OTHER SEE LABEL COMMENTS 10/30/16 06:45 10/30/16 06:36 Sodium Chloride 1,000 ml @ 42 mls/hr [id number] IV 10/30/16 08:30 11/12/16 04:36 Sodium Chloride 1,000 ml @ 0 mls/hr Q0M PRN IV For Prime & Rinse Back 10/30/16 08:47 11/10/16 16:07 Sodium Chloride (NS Flush) 5 ml UNSCH PRN IV FLUSH WITH DIALYSIS 10/30/16 09:00 11/11/16 04:41 Heparin Sodium (Porcine) (Heparin Inj) UNSCH PRN .XX WITH DIALYSIS 10/30/16 09:00 11/07/16 10:47 Gentamicin Sulfate (Gentamicin (Dialysis) Inj) 20 mg UNSCH PRN IV WITH DIALYSIS 10/30/16 09:00 11/10/16 16:06 Ondansetron HCl (Zofran Inj) 4 mg UNSCH PRN IV WITH DIALYSIS 10/30/16 09:00 11/03/16 23:59 Acetaminophen (Tylenol) 650 mg UNSCH PRN PO for headach, pain, temp > 101F 10/30/16 09:00 11/07/16 23:21 Diphenhydramine HCl (Benadryl) 25 mg UNSCH PRN PO for hives/itching/anaphylaxis 10/30/16 09:00 11/10/16 10:55 Cefepime HCl 1000 mg/Sodium Chloride 100 ml @ 200 mls/hr Q24H IV 10/31/16 12:00 11/11/16 15:43 Filgrastim (Neupogen Inj) 480 mcg DAILY@14 SQ 10/31/16 14:00 11/11/16 13:24 Mupirocin (Bactroban 2% Oint) 1 applic Q12HR TOPICAL 11/01/16 21:00 11/02/16 21:00 Allopurinol (Zyloprim) 200 mg DAILY PO 11/02/16 09:00 11/11/16 09:15 Sevelamer Carbonate (Renvela) 2,400 mg TIDAC PO 11/03/16 12:15 Future Hold 11/11/16 09:14 Ondansetron HCl (Zofran Inj) 4 mg Q6H PRN IV PUSH nausea 11/04/16 08:45 11/11/16 20:57 Simethicone (Mylicon Chew) 80 mg PCHS CHEW 11/04/16 10:30 11/11/16 20:44 Calcium/Vitamin D (Oscal-D 250-125) 500 mg Q12HR PO 11/07/16 21:00 11/11/16 20:44 Hydromorphone HCl (Dilaudid Pf Inj) 1 mg Q3H PRN IV PAIN 6-10 11/08/16 16:45 11/09/16 06:36 Sucralfate (Carafate Liq) 1 gm ACHS PO 11/08/16 21:00 11/12/16 06:53 Pantoprazole Sodium (Protonix Inj) 40 mg Q12H IV PUSH 11/08/16 17:45 11/12/16 04:37 Diltiazem HCl (Cardizem) 60 mg Q6H PO 11/09/16 14:00 11/12/16 02:21 Acetaminophen (Tylenol) 650 mg Q4H PRN PO SEE LABEL COMMENTS 11/10/16 07:30 11/10/16 10:56 Megestrol Acetate (Megace Liq) 400 mg DAILY PO 11/11/16 09:00 11/11/16 09:14 Nystatin (Mycostatin Liq) 5 ml QID SWISH-SWAL 11/11/16 09:00 11/11/16 20:44 Fluconazole (Diflucan) 100 mg DAILY PO 11/11/16 13:15 11/11/16 13:24 Acyclovir (Zovirax) 400 mg Q12HR PO 11/11/16 13:15 11/11/16 20:43 Objective Remarks GENERAL APPEARANCE: Mr. Chou is an elderly male, he is tall and heavy-set, He is laying in bed, has 2 or 3 layers of blankets on him and his hands are trembling. He appears tired fatigued and pale today. HEENT: Head atraumatic, normocephalic, conjunctivae are pale. Sclerae are anicteric, EOMI, PERRLA, oral exam no pharyngeal erythema. He has a submucosal bruise along the right side of the soft palate. NECK: No palpable cervical or supraclavicular lymphadenopathy. Right IJ Vas-Cath in place. RESPIRATORY: Good air movement bilaterally over the upper and middle lung zones , decreased breath sounds over the bases. No added breath sounds. CARDIOVASCULAR: Regular rate and rhythm, S1-S2. No obvious murmurs, gallops. ABDOMEN: Obese belly, soft, nontender, nondistended, no palpable organ enlargement, specifically no hepatosplenomegaly. EXTREMITIES: Lower extremities, positive for pretibial edema. No calf tenderness. PICC line in right arm. JAZ/LYMPH EXAMINATION: No cervical lymphadenopathy, no axillary lymphadenopathy and no inguinal lymphadenopathy. 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 His disease is negative for the BCR/ABL fusion gene. 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 S/p cycle 1 Hyper-CVAD + Rituxan and IT cytarabine. Plan 1. Started chemotherapy with Rituxan + hyper-CVAD on 10/26/2016; given the CD 20 positivity of the B-cell ALL on Flow cytometry on bone marrow aspiration specimen. [place] chromosome FISH negative for BCR/ABL. Neupogen started a dose of 480 g subcutaneous daily on 10/31/2016. Cytopenic due to chemotherapy associated marrow suppression. WBC count has improved to 1.4 as of today; continue Neupogen until ANC is greater than 3.5. 2. TLS; with renal failure, elevated Uric acid, LDH and Phos. Started on hemodialysis on 10/30/2016, second treatment on 10/31/2016. Rasburicase given . continue renally dosed allopurinol. phosphorus remains elevated (on Renvela) . Status post rasburicase on 10/30/2016. Uric acid level and LDH levels are declining. Meds have had doses adjusted to renal function. Non-oliguric, I'm cautiously optimistic that his renal function will recover. 3. Continue supportive transfusions; daily CBCs. patient requires irradiated blood products. +CMV status. 4. Low grade fevers: on Cefepime and vancomycin. Both dose modified to his renal function. 5. AFib with RVR: rate controlled, appreciate cardiology input. 6. Dyspepsia: started Protonix will start when necessary Zofran every 6 hours. US Gallbladder indicated no evidence of biliary obstruction. His liver was noted to be diffusely fat infiltrated. LFTs have remained relatively normal. His epigastric pain is severe and seems out of proportion to the imaging study findings. 7. Dysphagia: Empirically start him on nystatin swish and swallow 4 times daily for possible kerrie esophagitis. 8. Dark stool on Thursday; stool for occult blood was positive. Continue monitoring for now. Problem Qualifiers (1) Acute lymphocytic leukemia: Qualified Codes: C91.00 - Acute lymphoblastic leukemia not having achieved remission Sukhwinder Rice MD Nov 12, 2016 07:41
[2016-11-12] MEDS: MUPIROCIN 2% OINT 22 GM TUBE TOPICAL SCH ×2 (09:00→21:00)
[2016-11-12] MEDS: SODIUM CHLORIDE 0.9% FLUSH 10 ML FLUSH IVF SCH (09:00)
[2016-11-12] MEDS: BUMETANIDE INJ 1 MG/4 ML VIAL IV PUSH SCH (09:21)
[2016-11-12] MEDS: FLUCONAZOLE 100 MG TAB PO SCH (09:21)
[2016-11-12] MEDS: CALCIUM/VITAMIN D 250 MG/125 U TAB PO SCH ×2 (09:21→21:09)
[2016-11-12] MEDS: DOXYCYCLINE HYCLATE 100 MG TAB PO SCH ×2 (09:22→21:09)
[2016-11-12] MEDS: MEGESTROL ACETATE SUSP 400 MG/10 ML CUP PO SCH (09:22)
[2016-11-12] MEDS: LACTOBACILLUS ACIDOPHILUS TAB PO SCH ×2 (09:22→15:31)
[2016-11-12] MEDS: SODIUM CHLORIDE 0.9% FLUSH 10 ML FLUSH IV FLUSH SCH ×2 (09:22→21:10)
[2016-11-12] MEDS: ALLOPURINOL 100 MG TAB PO SCH (09:22)
[2016-11-12] MEDS: ACYCLOVIR 200 MG CAP PO SCH ×2 (09:29→21:09)
[2016-11-12] MEDS: NYSTATIN SUSP 500,000 U/5 ML CUP SWISH-SWAL SCH ×3 (09:29→21:09)
[2016-11-12] MEDS: SIMETHICONE 80 MG CHEWABLE TAB CHEW SCH ×3 (09:30→21:09)
[2016-11-12 10:59] LABS: BLOOD, URINE SMALL (NEG); GLUCOSE,URINE NEG (NEG); KETONE, URINE NEG (NEG); NITRITE,URINE NEG (NEG); PH, URINE 7.5 (5.0-8.5); SQUAMOUS EPITHELIAL CELL URINE <1 /hpf (0-5); URINE COLOR LIGHT-YELLOW (YELLW/STRAW)
[2016-11-12 11:01] LABS: COMMENT (UR) CULT NOT INDICATED; CULTURE IF INDICATED CULT NOT INDICATED
--- NOTE | 2016-11-12 11:34 | HHI.NPPN ---
Subjective General Problems: Edema, Hypertension Renal Failure: Acute Interval History Renal function is worse. He has developed edema. Minimal appetite. (Nava Cabral) Review of Systems General Constitutional: Fatigue (Nava Cabral) Respiratory Lungs: SOB (Nava Cabral) Cardiovascular Cardiac: Edema, YOUNGER (Nava Cabral) Gastrointestinal Gastrointestinal: Nausea & Vomiting GI Remarks loss of appetite (Nava Cabral) Objective Data Data Vital Signs Date Time Temp Pulse Resp B/P (MAP) Pulse Ox O2 Delivery O2 Flow Rate FiO2 11/12/16 07:50 99.0 88 20 150/66 (94) 96 11/12/16 04:14 84 11/12/16 03:58 99.1 86 16 123/58 (79) 94 11/12/16 00:04 80 11/12/16 00:00 96.7 88 17 128/59 (82) 96 11/11/16 20:24 83 11/11/16 20:00 96.3 88 17 134/56 (82) 98 11/11/16 16:06 90 11/11/16 16:00 97.0 89 22 153/63 (93) 97 11/11/16 12:04 87 11/11/16 12:00 96.7 81 18 154/67 (96) 97 (Nava Cabral) -: 11/12/16 0405 11/12/16 0405 Microbiology 11/12/16 Stool Occult Blood (JENIFER) - Final, Complete HEMOCCULT POSITIVE Tubes & Lines: Vas-Cath (Nava Cabral) Physical Exam General Appearance: Well Developed, Well Nourished, No Acute Distress, Comfortable (Nava Cabral) Eyes Eye Exam: Pupils Equal (Nava Cabral) Throat Throat Exam: Oral Mucosa [place] & Moist (Nava Cabral) Neck Neck Exam: Neck Supple (Nava Cabral) Pulmonary Resp Exam: Clear Bilaterally, Breath Sounds Equal, No Distress (Nava Cabral) Cardiology CV Exam: Normal Sinus Rhythm, Good Perfusion (Nava Cabral) Gastrointestinal/Abdomen GI Exam: Soft, Non-Tender, Bowel Sounds Present, Positive Bowel Movement (Nava Cabral) Musculoskeletal MS Exam: Joints Intact, Normal Gait, Normal Tone MS Remarks generalized weakness (Nava Cabral) Integumentary Skin Exam: Clear, Warm, Dry, Intact (Nava Cabral) Extremeties Extremities Exam: Pedal Pulses Palpable, Moderate Edema, Pitting Edema Extremeties Remarks 2+ edema to lower extremities (Nava Cabral) Neurologic Neuro Exam: Alert, Awake, Oriented, Speech Clear, Moving All Extremities (Nava Cabral) Psychiatric Psych Exam: Appropriate Responses (Nava Cabral) Assessment/Plan Discussed Condition With: Patient Assessment Summary: FAIZA/Acute Renal Failure, Hypertension Electrolyte Assessment: Hypocalcemia Problem List: (1) Acute kidney injury ICD Codes: N17.9 - Acute kidney failure, unspecified Status: Acute Plan: He has normal renal function at baseline, 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 (3) Hyperphosphatemia ICD Codes: E83.39 - Other disorders of phosphorus metabolism Status: Acute Plan: now hypophosphatemia due to poor oral intake stop renvela continue to monitor (4) Hypocalcemia ICD Codes: E83.51 - Hypocalcemia Status: Acute Plan: follow serum calcium level Avoid IV calcium administration. hyperphosphatemia corrected (5) Pancytopenia ICD Codes: D61.818 - Other pancytopenia Status: Acute Plan: ID and oncology following, he is neutropenic on cefepime and doxycycline monitor drug levels and renally dose medications if appropriate PRBC and pooled platelets given 11/10 (Nava Cabral) Plan patient was seen and examined. Agree with above assessment and plan. Non oliguric, but creatinine is higher. Dialysis again today. (Clay Galicia MD) Problem Qualifiers (1) Acute lymphocytic leukemia: Qualified Codes: C91.00 - Acute lymphoblastic leukemia not having achieved remission Nava Cabral Nov 12, 2016 11:33 Clay Galicia MD Nov 12, 2016 17:22
[2016-11-12] MEDS ORDERED: POTASSIUM PHOSPHATE MONOBASIC 500 MG TAB PO ONE (11:45)
--- NOTE | 2016-11-12 11:57 | HHI.PR ---
Subjective Remarks Follow up for ALL, Tumor lysis syndrome. Patient is currently doing well. Sitting in his chair. No acute concerns. No fever or chills. He did have a temperature of 99.1F. Objective Vitals Vital Signs Date Time Temp Pulse Resp B/P (MAP) Pulse Ox O2 Delivery O2 Flow Rate FiO2 11/12/16 07:50 99.0 88 20 150/66 (94) 96 11/12/16 04:14 84 11/12/16 03:58 99.1 86 16 123/58 (79) 94 11/12/16 00:04 80 11/12/16 00:00 96.7 88 17 128/59 (82) 96 11/11/16 20:24 83 11/11/16 20:00 96.3 88 17 134/56 (82) 98 11/11/16 16:06 90 11/11/16 16:00 97.0 89 22 153/63 (93) 97 11/11/16 12:04 87 11/11/16 12:00 96.7 81 18 154/67 (96) 97 I/O 11/11/16 11/11/16 11/11/16 11/12/16 11/12/16 11/12/16 06:59 14:59 22:59 06:59 14:59 22:59 Intake Total 790 ml 218 ml 480 ml 1000 ml Output Total 350 ml 850 ml 350 ml 400 ml Balance 440 ml -632 ml 130 ml 600 ml Intake Oral 210 ml 480 ml IV Total 790 ml 8 ml 1000 ml Output Urine Total 350 ml 850 ml 350 ml 400 ml # Bowel Movements 1 Result Diagram: 11/12/16 0405 11/12/16 0405 Imaging Last Impressions Gall Bladder Ultrasound 11/09/16 0000 Signed Impressions: Service Date/Time: Wednesday, November 09, 2016 12:22 - CONCLUSION: 1. Increased echogenicity throughout the liver suggestive of fatty infiltration. The liver is enlarged at 18.5 cm. 2. There are gallstones in the gallbladder. No biliary tract obstruction. Prasad Cade MD Abdomen/Pelvis CT 11/08/16 0000 Signed Impressions: Service Date/Time: Tuesday, November 08, 2016 15:00 - CONCLUSION: #1. Small right-sided pleural effusion. #2. Hazy increased density identified adjacent to the head of the pancreas as compared to the body and tail which may represent early changes of acute pancreatitis. Recommend correlation with patient's laboratory values. #3. Small anterior hernia with preperitoneal fat. This is seen approximately 2 cm superior to the umbilicus. Darcie Evans MD Chest X-Ray 11/01/16 0000 Signed Impressions: Service Date/Time: Tuesday, November 01, 2016 14:05 - CONCLUSION: Bibasilar densities likely atelectasis. Neal Castro MD Catheter Placement X-Ray 10/30/16 0826 Signed Impressions: Service Date/Time: October 11:04 - CONCLUSION: Uncomplicated Vas-Cath placement as above. Matt Lassiter MD Renal Ultrasound 10/30/16 0000 Signed Impressions: Service Date/Time: October 08:13 - CONCLUSION: Unremarkable exam with no evidence of hydronephrosis. Wander Hodges MD Lumbar Puncture Fluoroscopy 10/27/16 0000 Signed Impressions: Service Date/Time: Thursday, October 27, 2016 12:19 - CONCLUSION: Uncomplicated fluoroscopically guided lumbar puncture with chemotherapy injection. Matt Lassiter MD PICC Line Insertion 10/24/16 0000 Signed Impressions: Service Date/Time: Monday, October 24, 2016 12:01 - CONCLUSION: 1. Uncomplicated central venous Power PICC line placement. 2. The PICC line can be used immediately. Serafin Saba MD Bone Biopsy CT 10/24/16 0000 Signed Impressions: Service Date/Time: Monday, October 24, 2016 16:09 - CONCLUSION: 1. Uncomplicated CT guided bone marrow aspirate. 2. Uncomplicated CT guided bone marrow biopsy. Balwinder Swenson MD Objective Remarks GENERAL: Alert, oriented 3, NAD. SKIN: Warm and dry. HEAD: Normocephalic. EYES: No scleral icterus. No injection or drainage. NECK: Supple, trachea midline. No JVD or lymphadenopathy. CARDIOVASCULAR: Regular rate and rhythm without murmurs, gallops, or rubs. RESPIRATORY: Breath sounds equal bilaterally. No accessory muscle use. GASTROINTESTINAL: Abdomen soft, non-tender, nondistended. MUSCULOSKELETAL: No cyanosis, or edema. BACK: Nontender without obvious deformity. No CVA tenderness. Procedures 10/24/16 PICC line placement 10/24/16 bone marrow biopsy 10/30/16 Vas-Cath placement Date of Insertion: Oct 24, 2016 Line: PICC A/P Problem List: (1) Pancytopenia ICD Code: D61.818 - Other pancytopenia Status: Acute (2) Pneumonia ICD Code: J18.9 - Pneumonia, unspecified organism Status: Acute (3) Acute lymphocytic leukemia ICD Code: C91.00 - Acute lymphoblastic leukemia not having achieved remission Status: Acute (4) Hypertension ICD Code: I10 - Essential (primary) hypertension Status: Chronic Assessment and Plan 71 years old male admitted secondary to tumor lysis syndrome with underlying ALL. BCL acute lymphocytic leukemia - CD20 positive, PCI/ABL negative. Tumor lysis syndrome Pancytopenia Currently on chemotherapy - hyperCVAD + Rituxan and Cytarabine. Patient received dialysis as well as rasburicase. Transfusion as needed. Transfusion products must be irradiated products. Currently on cefepime 1 g Q48 hours with dialysis, acyclovir 400 mg by mouth every 12 hours and doxycycline 100 mg by mouth every 12 hours as well as, as I' ll 100 mg by mouth daily. Patient is also on vancomycin. Neupogen 480 g subcutaneous per hematology oncology. Acute renal failure Creatinine went from 4.92 --> 5.75 today. Nephrology following. He is on hemodialysis Thursday when necessary. Nephrology plans to dialyze patient today. Continue Bumex once a day. Paroxysmal atrial fibrillation Recent history of A. fib RVR No recurrence of RVR thus far since admitted his last episode on 11/08/16 Continue by mouth Cardizem 60 mg by mouth 4 times a day. Will consider switching to long-acting diltiazem. Aspirin on hold secondary to pancytopenia Pneumonia Neutropenic fever Continue cefepime, vancomycin, doxycycline as well as acyclovir ID following Continue Neupogen Diarrhea Continue Lactinex Follow clinically Poor appetite Likely related to chemotherapy Continue Megace DVT prophylaxis SCDs Problem Qualifiers (1) Pneumonia: (2) Acute lymphocytic leukemia: Qualified Codes: C91.00 - Acute lymphoblastic leukemia not having achieved remission Rony Elliott DO Nov 12, 2016 11:57
[2016-11-12] MEDS: ACETAMINOPHEN 325 MG TAB PO PRN (13:00)
[2016-11-12] MEDS: HEPARIN SODIUM - IV 10,000 UNITS/10 ML VIAL PRN (14:00)
[2016-11-12] MEDS: GENTAMICIN SULFATE (DIALYSIS USE ONLY) 20 MG/2 ML VIAL IV PRN (14:00)
[2016-11-12] MEDS: SODIUM CHLOR 0.9% 1000 ML INJ 1,000 ML IV PRN (14:00)
[2016-11-12] MEDS: FILGRASTIM 480 MCG/1.6 ML VIAL SQ SCH (15:30)
[2016-11-12] MEDS: CEFEPIME 1000 MG/NS 100 ML IV SCH ×2 (15:31)
[2016-11-12] MEDS ORDERED: VANCOMYCIN 1,000 MG/NS 250 ML IV ONE ×2 (16:00)
[2016-11-13] VITALS (11 sets, daily range): BP systolic 121–152; BP diastolic 49–69; PULSE 83–105; RESP 17–20; TEMP 98–99.8; O2SAT 94–97
[2016-11-13] MEDS: PANTOPRAZOLE SODIUM 40 MG VIAL IV PUSH SCH ×2 (04:10→17:13)
[2016-11-13] MEDS: DILTIAZEM HCL 60 MG TAB PO SCH ×4 (04:10→19:55)
[2016-11-13 05:49] LABS: HEMATOCRIT 27.9 % (39.0-51.0); MEAN CELL VOLUME 91.5 FL (80.0-100.0); MEAN CORPUSCULAR HEMOGLOBIN 30.9 PG (27.0-34.0); MEAN CORPUSCULAR HGB CONC 33.8 % (32.0-36.0); PLATELET COUNT 25 TH/MM3 (150-450); RED BLOOD COUNT 3.05 MIL/MM3 (4.50-5.90); RED CELL DISTRIBUTION WIDTH 15.5 % (11.6-17.2)
[2016-11-13 05:54] LABS: HEMO FLAGS AUTO DIFF
[2016-11-13 06:10] LABS: BICARBONATE 31.4 MEQ/L (21.0-32.0); POTASSIUM 4.1 MEQ/L (3.5-5.1)
[2016-11-13] MEDS: SUCRALFATE 1 GM/10 ML CUP PO SCH ×4 (07:00→19:55)
--- NOTE | 2016-11-13 07:40 | PD.ONC.PN ---
Subjective Subjective Remarks Patient seen and examined, vital signs reviewed, labs and medications reviewed as well. Input and output and fluid balance reviewed. Subjectively; he tells me he feels a little better today, his energy is improved however his appetite remains poor and he continues to have epigastric pain. He denies overt bleeding, diarrhea, nausea or vomiting, fevers or chills or difficulty breathing. He tells me he has been urinating well and that his urine color is increasingly normal as opposed to clear. WBC count is up to 3. Creatinine has improved to 4.5. Objective Data Date Time Temp Pulse Resp B/P (MAP) Pulse Ox O2 Delivery O2 Flow Rate FiO2 11/13/16 04:00 98.8 87 18 141/69 (93) 96 11/13/16 00:00 99.1 83 17 121/49 (73) 94 11/12/16 20:00 97.9 88 17 110/54 (72) 98 11/12/16 16:10 97.9 90 20 149/68 (95) 97 11/12/16 13:23 98.8 74 18 149/72 11/12/16 08:04 84 11/12/16 07:50 99.0 88 20 150/66 (94) 96 11/13/16 11/13/16 11/13/16 07:00 15:00 23:00 Output Total 200 ml Balance -200 ml Result Diagram: 11/13/16 0418 11/13/16 0418 Laboratory Results Laboratory Tests Test 11/12/16 10:30 11/13/16 04:18 Urine Color LIGHT-YELLOW Urine Turbidity CLEAR Urine pH 7.5 Urine Specific [place] 1.006 Urine Protein TRACE mg/dL Urine Glucose (UA) NEG mg/dL Urine Ketones NEG mg/dL Urine Occult Blood SMALL Urine Nitrite NEG Urine Bilirubin NEG Urine Urobilinogen LESS THAN 2.0 MG/DL Urine Leukocyte Esterase NEG Urine RBC 2 /hpf Urine WBC LESS THAN 1 /hpf Urine Squamous Epithelial Cells <1 /hpf Microscopic Urinalysis Comment CULT NOT INDICATED White Blood Count 3.0 TH/MM3 Red Blood Count 3.05 MIL/MM3 Hemoglobin 9.4 GM/DL Hematocrit 27.9 % Mean Corpuscular Volume 91.5 FL Mean Corpuscular Hemoglobin 30.9 PG Mean Corpuscular Hemoglobin Concent 33.8 % Red Cell Distribution Width 15.5 % Platelet Count 25 TH/MM3 Mean Platelet Volume 7.7 FL CBC Comment AUTO DIFF Blood Urea Nitrogen 38 MG/DL Creatinine 4.51 MG/DL Random Glucose 81 MG/DL Albumin 2.6 GM/DL Calcium Level 7.7 MG/DL Phosphorus Level 1.8 MG/DL Sodium Level 138 MEQ/L Potassium Level 4.1 MEQ/L Chloride Level 97 MEQ/L Carbon Dioxide Level 31.4 MEQ/L Anion Gap 10 MEQ/L Estimat Glomerular Filtration Rate 13 ML/MIN Culture Results Microbiology Date/Time Source Procedure Growth Status 11/12/16 07:50 Stool Stool Stool Occult Blood (JENIFER) - Final HEMOCCULT POSITIVE Complete 11/10/16 19:30 Stool Stool Stool Occult Blood (JENIFER) - Final HEMOCCULT POSITIVE Complete 11/10/16 19:30 Stool Stool Cryptosporidium Exam Pending Received 11/10/16 19:30 Stool Stool Giardia Antigen (JENIFER) Pending Received 11/10/16 19:30 Stool Stool - Final NO ENTERIC PATHOGENS DETECTED BY PCR... Complete Administered Medications Medications (Trade) Dose Ordered Sig/Daniel Route PRN Reason Start Time Stop Time Status Last Admin Dose Admin Sodium Chloride (NS Flush) 2 ml UNSCH PRN IV FLUSH FLUSH AFTER USING IV ACCESS 10/24/16 01:45 11/11/16 04:41 Sodium Chloride (NS Flush) 2 ml BID IV FLUSH 10/24/16 09:00 11/12/16 21:10 Doxycycline Hyclate (Vibratab) 100 mg Q12HR PO 10/24/16 09:00 11/12/16 21:09 Sodium Chloride (NS Flush) DAILY IVF 10/25/16 09:00 11/10/16 09:33 Heparin Sodium (Porcine) (Heparin Central Flush) DAILY IV FLUSH 10/25/16 09:00 10/26/16 08:01 Lactobacillus Acidophilus (Lactinex) 1 tab TID PO 10/24/16 18:00 11/12/16 15:31 Miscellaneous (Pill Splitter) 1 ea UNSCH PRN OTHER SEE LABEL COMMENTS 10/30/16 06:45 10/30/16 06:36 Sodium Chloride 1,000 ml @ 0 mls/hr Q0M PRN IV For Prime & Rinse Back 10/30/16 08:47 11/12/16 14:00 Sodium Chloride (NS Flush) 5 ml UNSCH PRN IV FLUSH WITH DIALYSIS 10/30/16 09:00 11/11/16 04:41 Heparin Sodium (Porcine) (Heparin Inj) UNSCH PRN .XX WITH DIALYSIS 10/30/16 09:00 11/12/16 14:00 Gentamicin Sulfate (Gentamicin (Dialysis) Inj) 20 mg UNSCH PRN IV WITH DIALYSIS 10/30/16 09:00 11/12/16 14:00 Ondansetron HCl (Zofran Inj) 4 mg UNSCH PRN IV WITH DIALYSIS 10/30/16 09:00 11/03/16 23:59 Acetaminophen (Tylenol) 650 mg UNSCH PRN PO for headach, pain, temp > 101F 10/30/16 09:00 11/07/16 23:21 Diphenhydramine HCl (Benadryl) 25 mg UNSCH PRN PO for hives/itching/anaphylaxis 10/30/16 09:00 11/10/16 10:55 Cefepime HCl 1000 mg/Sodium Chloride 100 ml @ 200 mls/hr Q24H IV 10/31/16 12:00 11/12/16 15:31 Filgrastim (Neupogen Inj) 480 mcg DAILY@14 SQ 10/31/16 14:00 11/12/16 15:30 Mupirocin (Bactroban 2% Oint) 1 applic Q12HR TOPICAL 11/01/16 21:00 11/02/16 21:00 Allopurinol (Zyloprim) 200 mg DAILY PO 11/02/16 09:00 11/12/16 09:22 Ondansetron HCl (Zofran Inj) 4 mg Q6H PRN IV PUSH nausea 11/04/16 08:45 11/11/16 20:57 Simethicone (Mylicon Chew) 80 mg PCHS CHEW 11/04/16 10:30 11/12/16 21:09 Calcium/Vitamin D (Oscal-D 250-125) 500 mg Q12HR PO 11/07/16 21:00 11/12/16 21:09 Hydromorphone HCl (Dilaudid Pf Inj) 1 mg Q3H PRN IV PAIN 6-10 11/08/16 16:45 11/09/16 06:36 Sucralfate (Carafate Liq) 1 gm ACHS PO 11/08/16 21:00 11/12/16 21:09 Pantoprazole Sodium (Protonix Inj) 40 mg Q12H IV PUSH 11/08/16 17:45 11/13/16 04:10 Diltiazem HCl (Cardizem) 60 mg Q6H PO 11/09/16 14:00 11/13/16 04:10 Diphenhydramine HCl (Benadryl) 25 mg Q4H PRN PO SEE LABEL COMMENTS 11/10/16 07:30 11/12/16 13:00 Megestrol Acetate (Megace Liq) 400 mg DAILY PO 11/11/16 09:00 11/12/16 09:22 Nystatin (Mycostatin Liq) 5 ml QID SWISH-SWAL 11/11/16 09:00 11/12/16 21:09 Bumetanide (Bumex Inj) 2 mg DAILY IV PUSH 11/12/16 09:00 11/12/16 09:21 Fluconazole (Diflucan) 100 mg DAILY PO 11/11/16 13:15 11/12/16 09:21 Acyclovir (Zovirax) 400 mg Q12HR PO 11/11/16 13:15 11/12/16 21:09 Objective Remarks GENERAL APPEARANCE: Mr. Chou is an elderly male, he is tall and heavy-set, He is laying in bed, has 2 or 3 layers of blankets on him and his hands are trembling. He appears tired fatigued and pale today. HEENT: Head atraumatic, normocephalic, conjunctivae are pale. Sclerae are anicteric, EOMI, PERRLA, oral exam no pharyngeal erythema. He has a submucosal bruise along the right side of the soft palate. NECK: No palpable cervical or supraclavicular lymphadenopathy. Right IJ Vas-Cath in place. RESPIRATORY: Good air movement bilaterally over the upper and middle lung zones , decreased breath sounds over the bases. No added breath sounds. CARDIOVASCULAR: Regular rate and rhythm, S1-S2. No obvious murmurs, gallops. ABDOMEN: Obese belly, soft, nontender, nondistended, no palpable organ enlargement, specifically no hepatosplenomegaly. EXTREMITIES: Lower extremities, positive for pretibial edema. No calf tenderness. PICC line in right arm. JAZ/LYMPH EXAMINATION: No cervical lymphadenopathy, no axillary lymphadenopathy and no inguinal lymphadenopathy. 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 His disease is negative for the BCR/ABL fusion gene. 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 S/p cycle 1 Hyper-CVAD + Rituxan and IT cytarabine. Plan 1. Started chemotherapy with Rituxan + hyper-CVAD on 10/26/2016; given the CD 20 positivity of the B-cell ALL on Flow cytometry on bone marrow aspiration specimen. Cobb chromosome FISH negative for BCR/ABL. Neupogen started a dose of 480 g subcutaneous daily on 10/31/2016. Cytopenic due to chemotherapy associated marrow suppression. WBC count has improved to 3 as of today; continue Neupogen until ANC is greater than 3.5. 2. TLS; with renal failure, elevated Uric acid, LDH and Phos. Started on hemodialysis on 10/30/2016, second treatment on 10/31/2016. Rasburicase given . continue renally dosed allopurinol. phosphorus remains elevated (on Renvela) . Status post rasburicase on 10/30/2016. Uric acid level and LDH levels are declining. Meds have had doses adjusted to renal function. Non-oliguric, I am cautiously optimistic that his renal function will recover and that he may be able to come off hemodialysis. 3. Continue supportive transfusions; daily CBCs. patient requires irradiated blood products. +CMV status. 4. Low grade fevers: on Cefepime and vancomycin. Both dose modified to his renal function. 5. AFib with RVR: rate controlled, appreciate cardiology input. 6. Dyspepsia: started Protonix will start when necessary Zofran every 6 hours. US Gallbladder indicated no evidence of biliary obstruction. His liver was noted to be diffusely fat infiltrated. LFTs have remained relatively normal. His epigastric pain is severe and seems out of proportion to the imaging study findings. 7. Dysphagia: Empirically start him on nystatin swish and swallow 4 times daily for possible kerrie esophagitis. 8. Dark stool on Thursday; stool for occult blood was positive. Likely mucosal bleeding secondary to thrombocytopenia, this would not be a good time for an invasive workup with colonoscopy/EGD. 9. Physical therapy consultation/evaluation requested. Problem Qualifiers (1) Acute lymphocytic leukemia: Qualified Codes: C91.00 - Acute lymphoblastic leukemia not having achieved remission Sukhwinder Rice MD Nov 13, 2016 07:40
[2016-11-13 08:37] LABS: BANDS 32 % (0-6); METAMYELOCYTES 1 % (0-1); NEUTROPHIL # MANUAL DIFF 2.9 TH/MM3 (1.8-7.7); POLYS (SEG NEUTROPHILS) 62 % (16-70); WBC DIFF SAMPLE 100
[2016-11-13 08:38] LABS: DOHLE BODIES PRESENT (NONE SEEN); PLATELET ESTIMATE SMEAR LOW (NORMAL); PLATELET MORPHOLOGY NORMAL (NORMAL); SCAN/DIFF FINAL DIFF MANUAL; TOXIC GRANULATION 1+ (NORMAL)
[2016-11-13 08:41] LABS: TOXIC VACUOLATION PRESENT (NONE SEEN)
[2016-11-13] MEDS: MUPIROCIN 2% OINT 22 GM TUBE TOPICAL SCH ×2 (09:00→20:01)
[2016-11-13] MEDS: SODIUM CHLORIDE 0.9% FLUSH 10 ML FLUSH IVF SCH (09:00)
[2016-11-13] MEDS: MEGESTROL ACETATE SUSP 400 MG/10 ML CUP PO SCH (09:30)
[2016-11-13] MEDS: FLUCONAZOLE 100 MG TAB PO SCH (09:31)
[2016-11-13] MEDS: DOXYCYCLINE HYCLATE 100 MG TAB PO SCH (09:31)
[2016-11-13] MEDS: SIMETHICONE 80 MG CHEWABLE TAB CHEW SCH ×4 (09:31→19:55)
[2016-11-13] MEDS: NYSTATIN SUSP 500,000 U/5 ML CUP SWISH-SWAL SCH ×4 (09:31→19:55)
[2016-11-13] MEDS: ALLOPURINOL 100 MG TAB PO SCH (09:31)
[2016-11-13] MEDS: BUMETANIDE INJ 1 MG/4 ML VIAL IV PUSH SCH (09:31)
[2016-11-13] MEDS: LACTOBACILLUS ACIDOPHILUS TAB PO SCH ×3 (09:31→17:13)
[2016-11-13] MEDS: ACYCLOVIR 200 MG CAP PO SCH ×2 (09:31→19:55)
[2016-11-13] MEDS: CALCIUM/VITAMIN D 250 MG/125 U TAB PO SCH ×2 (09:31→19:55)
[2016-11-13] MEDS: SODIUM CHLORIDE 0.9% FLUSH 10 ML FLUSH IV FLUSH SCH ×2 (09:32→19:55)
--- NOTE | 2016-11-13 10:41 | HHI.GIFU ---
Subjective Remarks Tolerating diet well, no more abdominal pain, had one formed BM this AM. Objective Vitals I&O Vital Signs Date Time Temp Pulse Resp B/P (MAP) Pulse Ox O2 Delivery O2 Flow Rate FiO2 11/13/16 07:45 98.3 96 19 152/62 (92) 96 11/13/16 07:44 105 11/13/16 04:50 84 11/13/16 04:00 98.8 87 18 141/69 (93) 96 11/13/16 00:33 96 11/13/16 00:00 99.1 83 17 121/49 (73) 94 11/12/16 20:10 96 11/12/16 20:00 97.9 88 17 110/54 (72) 98 11/12/16 16:10 97.9 90 20 149/68 (95) 97 11/12/16 13:23 98.8 74 18 149/72 I/O 11/12/16 11/12/16 11/12/16 11/13/16 11/13/16 11/13/16 06:59 14:59 22:59 06:59 14:59 22:59 Intake Total 1000 ml 1436 ml 350 ml Output Total 400 ml 3300 ml 200 ml 200 ml Balance 600 ml -1864 ml 150 ml -200 ml Intake Oral 1000 ml IV Total 1000 ml 148 ml 350 ml Platelets 288 ml Output Urine Total 400 ml 300 ml 200 ml 200 ml Hemodialysis 3000 ml # Voids 1 # Bowel Movements 1 Laboratory Laboratory Tests Test 11/13/16 04:18 White Blood Count 3.0 Red Blood Count 3.05 Hemoglobin 9.4 Hematocrit 27.9 Mean Corpuscular Volume 91.5 Mean Corpuscular Hemoglobin 30.9 Mean Corpuscular Hemoglobin Concent 33.8 Red Cell Distribution Width 15.5 Platelet Count 25 Mean Platelet Volume 7.7 CBC Comment AUTO DIFF Differential Total Cells Counted 100 Neutrophils % (Manual) 62 Band Neutrophils % 32 Lymphocytes % 2 Monocytes % 3 Neutrophils # (Manual) 2.9 Metamyelocytes 1 Differential Comment FINAL DIFF MANUAL Toxic Granulation 1+ Toxic Vacuolation PRESENT Dohle Bodies PRESENT Platelet Estimate LOW Platelet Morphology Comment NORMAL Red Cell Morphology Comment NORMAL Blood Urea Nitrogen 38 Creatinine 4.51 Random Glucose 81 Albumin 2.6 Calcium Level 7.7 Phosphorus Level 1.8 Sodium Level 138 Potassium Level 4.1 Chloride Level 97 Carbon Dioxide Level 31.4 Anion Gap 10 Estimat Glomerular Filtration Rate 13 Date/Time Source Procedure Growth Status 10/29/16 11:49 Blood Peripheral Aerobic Blood Culture - Final NO GROWTH IN 5 DAYS Complete 10/29/16 11:49 Blood Peripheral Anaerobic Blood Culture - Final NO GROWTH IN 5 DAYS Complete 11/12/16 07:50 Stool Stool Stool Occult Blood (JENIFER) - Final HEMOCCULT POSITIVE Complete 10/29/16 09:20 Urine Random Urine Urine Culture - Final NO GROWTH IN 48 HOURS. Complete Physical Exam HEENT: Pupils round and reactive to light; normocephalic; atraumatic; no jaundice. Throat is clear. NECK: Neck is supple, no JVD, no lymphadenopathy. CHEST: Chest is clear to auscultation and percussion. CARDIAC: Regular rate and rhythm with no murmur gallop or rubs. ABDOMEN: Soft, slight distended EXTREMITIES: No clubbing, cyanosis, or edema. SKIN: Normal; no rash; no jaundice. TRANSITIONAL CARE LIAISON: No focal deficits; alert and oriented times three. Assessment and Plan Plan ASSESSMENT: - Epigastric discomfort, belching. Pt denies any prior hx of GERD, PUD, Pancreatitis, or GB disease- although he does report frequent belching his whole life. Since starting chemotherapy, he complains of a constant epigastric discomfort/bloating (denies this being pain), worse with oral intake. No n/v, no heartburn or reflux. No melena/hematochezia. CT scan abdomen and pelvis (11/08/16)----> small right sided pleural effusion, hazy increased density identified adjacent to the head of the pancreas as compared to the body and tail which may represent early changes of acute pancreatitis. Recommend correlation with patient's laboratory values. Small anterior hernia with preperitoneal fat. This is seen approximately 2 cm superior to the umbilicus. Lipase unremarkable at 135. LFT on 11/05 were unremarkable. ? gastritis, duodenitis, early pancreatitis. Would start by increasing Protonix 40mg IV BID, add Carafate ACHS. . - Diarrhea. cultures negative - B-cell acute lymphocytic leukemia (new diagnosis- admitted for workup/ induction chemotherapy). Rituxan and hyper-CVAD started 10/26. Per oncology - TLS, renal failure. Started on HD- Thu/Thu/Thu per nurse. - Severe pancytopenia, WBC 0.1, H/H 8.0/23.0, Plt 8,Transfusions per hematology/ oncology - Neutropenic fever. Neutrophil 0. On Neupogen. BCx no growth (10/29) - New onset atrial fibrillation, HTN, Pneumonia. Abx per primary. PLAN: - MAMIE - Stable from GI point of view, please notify us if needed - Continue current treatment plan. - Further recommendations to follow. Junior Hollingsworth MD Nov 13, 2016 10:41
[2016-11-13] MEDS ORDERED: POTASSIUM PHOSPHATE MONOBASIC 500 MG TAB PO ONE (11:00)
[2016-11-13] MEDS: CEFEPIME 1000 MG/NS 100 ML IV SCH ×2 (11:13)
--- NOTE | 2016-11-13 11:18 | HHI.IDPN ---
Note Infectious Disease Note Patient feels better. Eating better. No pain on swallowing. Afebrile. Denies chills or nausea. No SOB. Counts improving. PAST MEDICAL HISTORY 1. Rheumatic fever 2. Removal of vocal polyps in his 20s. 3. Appendectomy ALLERGIES No drug allergies. MEDICATIONS 1. Vancomycin 2. Cefepime 3. Doxycycline OBJECTIVE: Vital Signs Date Time Temp Pulse Resp B/P (MAP) Pulse Ox O2 Delivery O2 Flow Rate FiO2 11/13/16 07:45 98.3 96 19 152/62 (92) 96 11/13/16 07:44 105 11/13/16 04:50 84 11/13/16 04:00 98.8 87 18 141/69 (93) 96 11/13/16 00:33 96 11/13/16 00:00 99.1 83 17 121/49 (73) 94 11/12/16 20:10 96 11/12/16 20:00 97.9 88 17 110/54 (72) 98 11/12/16 16:10 97.9 90 20 149/68 (95) 97 11/12/16 13:23 98.8 74 18 149/72 Laboratory Tests Test 11/12/16 04:05 11/13/16 04:18 White Blood Count 1.4 TH/MM3 3.0 TH/MM3 Red Blood Count 2.86 MIL/MM3 3.05 MIL/MM3 Hemoglobin 9.1 GM/DL 9.4 GM/DL Hematocrit 26.1 % 27.9 % Mean Corpuscular Volume 91.0 FL 91.5 FL Mean Corpuscular Hemoglobin 31.7 PG 30.9 PG Mean Corpuscular Hemoglobin Concent 34.8 % 33.8 % Red Cell Distribution Width 15.2 % 15.5 % Platelet Count 9 TH/MM3 25 TH/MM3 Mean Platelet Volume 7.9 FL 7.7 FL CBC Comment AUTO DIFF AUTO DIFF Differential Total Cells Counted 100 100 Neutrophils % (Manual) 61 % 62 % Band Neutrophils % 19 % 32 % Lymphocytes % 2 % 2 % Monocytes % 2 % 3 % Basophils % 1 % Neutrophils # (Manual) 1.3 TH/MM3 2.9 TH/MM3 Metamyelocytes 15 % 1 % Differential Comment FINAL DIFF MANUAL FINAL DIFF MANUAL Platelet Estimate RARE LOW Platelet Morphology Comment NORMAL NORMAL Red Cell Morphology Comment NORMAL NORMAL Toxic Granulation 1+ Toxic Vacuolation PRESENT Dohle Bodies PRESENT Laboratory Tests Test 11/12/16 04:05 11/13/16 04:18 Blood Urea Nitrogen 53 MG/DL 38 MG/DL Creatinine 5.75 MG/DL 4.51 MG/DL Random Glucose 97 MG/DL 81 MG/DL Total Protein 5.6 GM/DL Albumin 2.5 GM/DL 2.6 GM/DL Calcium Level 7.5 MG/DL 7.7 MG/DL Alkaline Phosphatase 47 U/L Aspartate Amino Transf (AST/SGOT) 13 U/L Alanine Aminotransferase (ALT/SGPT) 19 U/L Total Bilirubin 0.9 MG/DL Sodium Level 135 MEQ/L 138 MEQ/L Potassium Level 3.8 MEQ/L 4.1 MEQ/L Chloride Level 97 MEQ/L 97 MEQ/L Carbon Dioxide Level 29.1 MEQ/L 31.4 MEQ/L Anion Gap 9 MEQ/L 10 MEQ/L Estimat Glomerular Filtration Rate 10 ML/MIN 13 ML/MIN Phosphorus Level 2.2 MG/DL 1.8 MG/DL Microbiology Date/Time Source Procedure Growth Status 11/12/16 07:50 Stool Stool Stool Occult Blood (JENIFER) - Final HEMOCCULT POSITIVE Complete 11/10/16 19:30 Stool Stool Stool Occult Blood (JENIFER) - Final HEMOCCULT POSITIVE Complete 11/10/16 19:30 Stool Stool Cryptosporidium Exam - Final NEGATIVE - NO CRYPTOSPORIDIUM ANTIGEN... Complete 11/10/16 19:30 Stool Stool Giardia Antigen (JENIFER) - Final NEGATIVE - NO GIARDIA ANTIGEN DETECTE... Complete 11/10/16 19:30 Stool Stool - Final NO ENTERIC PATHOGENS DETECTED BY PCR... Complete IMAGING: Renal Ultrasound 10/30/16 0000 Signed Impressions: Service Date/Time: October 08:13 - CONCLUSION: Unremarkable exam with no evidence of hydronephrosis. Wander Hodges MD Chest X-Ray 10/29/16 0000 Signed Impressions: Service Date/Time: Saturday, October 29, 2016 08:10 - CONCLUSION: No acute disease. Dion Marmolejo Jr., MD GENERAL: No acute distress. HEENT: No icterus. Oropharynx moist mucosa, ecchymosis at the R upper palate is fading. 2mm diameter shallow ulcer at upper right gum line looks improved. Edentulous. NECK: Supple, No adenopathy or swelling. LUNGS: Breath sounds clear. HEART: S1 and S2 without audible murmurs, rubs or gallops. ABDOMEN: Bowel sounds present, soft, and nontender. EXTREMITIES: No clubbing, cyanosis or edema. SKIN: No rash. Ecchymosis at r. flank. NEUROLOGIC: No gross focal findings. PSYCHIATRIC: Calm and cooperative. IMPRESSION 1. Acute Lymphoblastic leukemia with pancytopenia. Patient post induction chemotherapy. 2. Febrile neutropenia. Negative cultures. Counts are recovering. ANC above 1500. 3. Acute renal failure. On hemodialysis. improving. 4. Gingival stomatitis. Probably herpetic. Looks better. RECOMMENDATIONS 1. Continue Cefepime. 2. Continue vancomycin. Pharmacy to monitor the levels and dosage. 3. Continue Doxycycline. 4. Continue Diflucan PO 5. Continue PO Acyclovir. 6. Monitor temperature. Could stop antibiotics but keep on PO Acyclovir and Diflucan x 5 more days. I will sign off now. I will be off 11/14 to 11/30. Please call ID service if further input is needed. Gene Hewitt MD Nov 13, 2016 11:18
--- NOTE | 2016-11-13 13:29 | HHI.PR ---
Subjective Remarks Follow up for ALL, Tumor lysis syndrome. Patient is currently doing well. No fever or chills. Tolerating diet well. He is happy to know that his neutrophil count went up this morning to 2900. Objective Vitals Vital Signs Date Time Temp Pulse Resp B/P (MAP) Pulse Ox O2 Delivery O2 Flow Rate FiO2 11/13/16 11:45 98.4 100 18 142/61 (88) 97 11/13/16 07:45 98.3 96 19 152/62 (92) 96 11/13/16 07:44 105 11/13/16 04:50 84 11/13/16 04:00 98.8 87 18 141/69 (93) 96 11/13/16 00:33 96 11/13/16 00:00 99.1 83 17 121/49 (73) 94 11/12/16 20:10 96 11/12/16 20:00 97.9 88 17 110/54 (72) 98 11/12/16 16:10 97.9 90 20 149/68 (95) 97 11/12/16 13:23 98.8 74 18 149/72 I/O 11/12/16 11/12/16 11/12/16 11/13/16 11/13/16 11/13/16 07:00 15:00 23:00 07:00 15:00 23:00 Intake Total 1000 ml 1436 ml 350 ml Output Total 400 ml 3300 ml 200 ml 200 ml Balance 600 ml -1864 ml 150 ml -200 ml Intake Oral 1000 ml IV Total 1000 ml 148 ml 350 ml Platelets 288 ml Output Urine Total 400 ml 300 ml 200 ml 200 ml Hemodialysis 3000 ml # Voids 1 # Bowel Movements 1 Result Diagram: 11/13/16 0418 11/13/16 0418 Objective Remarks GENERAL: Alert, oriented 3, NAD. SKIN: Warm and dry. HEAD: Normocephalic. EYES: No scleral icterus. No injection or drainage. NECK: Supple, trachea midline. No JVD or lymphadenopathy. CARDIOVASCULAR: Regular rate and rhythm without murmurs, gallops, or rubs. RESPIRATORY: Breath sounds equal bilaterally. No accessory muscle use. GASTROINTESTINAL: Abdomen soft, non-tender, nondistended. MUSCULOSKELETAL: No cyanosis, or edema. BACK: Nontender without obvious deformity. No CVA tenderness. Procedures 10/24/16 PICC line placement 10/24/16 bone marrow biopsy 10/30/16 Vas-Cath placement Date of Insertion: Oct 24, 2016 Line: PICC A/P Problem List: (1) Pancytopenia ICD Code: D61.818 - Other pancytopenia Status: Acute (2) Pneumonia ICD Code: J18.9 - Pneumonia, unspecified organism Status: Acute (3) Acute lymphocytic leukemia ICD Code: C91.00 - Acute lymphoblastic leukemia not having achieved remission Status: Acute (4) Hypertension ICD Code: I10 - Essential (primary) hypertension Status: Chronic Assessment and Plan 71 years old male admitted secondary to tumor lysis syndrome with underlying ALL. BCL acute lymphocytic leukemia - CD20 positive, PCI/ABL negative. Tumor lysis syndrome Pancytopenia Currently on chemotherapy - hyperCVAD + Rituxan and Cytarabine. Patient received dialysis as well as rasburicase. Transfusion as needed. Transfusion products must be irradiated products. Currently on cefepime 1 g Q48 hours with dialysis, acyclovir 400 mg by mouth every 12 hours and doxycycline 100 mg by mouth every 12 hours as well as, as I' ll 100 mg by mouth daily. Patient is also on vancomycin. Per ID, all abx can be stopped but continue PO Acyclovir and Diflucan for 5 more days. Neupogen 480 g subcutaneous per hematology oncology until WBC count is above 3.5. Acute renal failure Creatinine went from 4.92 --> 5.75 --> 4.51. Nephrology following. He is on hemodialysis Thursday when necessary. Continue Bumex once a day. Paroxysmal atrial fibrillation Recent history of A. fib RVR No recurrence of RVR thus far since admitted his last episode on 11/08/16 Continue by mouth Cardizem 60 mg by mouth 4 times a day. Aspirin on hold secondary to pancytopenia Pneumonia Neutropenic fever Per ID recommendations, will stop all abx except acyclovir and Diflucan. Continue Neupogen. Neutropenia is improved, neutrophil count 2900. Platelet count also improved to 25K. Diarrhea Continue Lactinex Follow clinically Poor appetite Likely related to chemotherapy Continue Megace DVT prophylaxis SCDs Problem Qualifiers (1) Pneumonia: (2) Acute lymphocytic leukemia: Qualified Codes: C91.00 - Acute lymphoblastic leukemia not having achieved remission Rony Elliott DO Nov 13, 2016 13:29
--- NOTE | 2016-11-13 14:30 | HHI.NPPN ---
Subjective General Problems: Edema, Hypertension Renal Failure: Acute Interval History He looks and feels better. WBC, Hb, and platelets have improved. Taken off reverse isolation. He had dialysis yesterday. (Nava Cabral) Review of Systems General Constitutional: Fatigue (Nava Cabral) Respiratory Lungs: SOB (Nava Cabral) Cardiovascular Cardiac: Edema, YOUNGER (Nava Cabral) Gastrointestinal Gastrointestinal: Nausea & Vomiting GI Remarks loss of appetite (Nava Cabral) Objective Data Data Vital Signs Date Time Temp Pulse Resp B/P (MAP) Pulse Ox O2 Delivery O2 Flow Rate FiO2 11/13/16 12:00 96 11/13/16 11:45 98.4 100 18 142/61 (88) 97 11/13/16 07:45 98.3 96 19 152/62 (92) 96 11/13/16 07:44 105 11/13/16 04:50 84 11/13/16 04:00 98.8 87 18 141/69 (93) 96 11/13/16 00:33 96 11/13/16 00:00 99.1 83 17 121/49 (73) 94 11/12/16 20:10 96 11/12/16 20:00 97.9 88 17 110/54 (72) 98 11/12/16 16:10 97.9 90 20 149/68 (95) 97 (Nava Cabral) -: 11/13/16 0418 11/13/16 0418 Tubes & Lines: Vas-Cath (Nava Cabral) Physical Exam General Appearance: Well Developed, Well Nourished, No Acute Distress, Comfortable (Nava Cabral) Eyes Eye Exam: Pupils Equal (Nava Cabral) Throat Throat Exam: Oral Mucosa [place] & Moist (Nava Cabral) Neck Neck Exam: Neck Supple (Nava Cabral) Pulmonary Resp Exam: Clear Bilaterally, Breath Sounds Equal, No Distress (Nava Cabral) Cardiology CV Exam: Regular, Normal Sinus Rhythm, Good Perfusion (Nava Cabral) Gastrointestinal/Abdomen GI Exam: Soft, Non-Tender, Bowel Sounds Present, Positive Bowel Movement (Nava Cabral) Musculoskeletal MS Exam: Joints Intact, Normal Gait, Normal Tone MS Remarks generalized weakness (Nava Cabral) Integumentary Skin Exam: Clear, Warm, Dry, Intact (Nava Cabral) Extremeties Extremities Exam: Pedal Pulses Palpable, Moderate Edema, Pitting Edema Extremeties Remarks 1+ edema to lower extremities (Nava Cabral) Neurologic Neuro Exam: Alert, Awake, Oriented, Speech Clear, Moving All Extremities (Nava Cabral) Psychiatric Psych Exam: Appropriate Responses (Nava Cabral) Assessment/Plan Discussed Condition With: Patient Assessment Summary: FAIZA/Acute Renal Failure, Hypertension Electrolyte Assessment: Hypocalcemia Problem List: (1) Acute kidney injury ICD Codes: N17.9 - Acute kidney failure, unspecified Status: Acute Plan: He has normal renal function at baseline, 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 (3) Hypocalcemia ICD Codes: E83.51 - Hypocalcemia Status: Acute Plan: follow serum calcium level Avoid IV calcium administration. 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 Agree with above assessment and plan. Watch for signs of renal recovery. Consider stopping antibiotics. (Clay Galicia MD) Problem Qualifiers (1) Acute lymphocytic leukemia: Qualified Codes: C91.00 - Acute lymphoblastic leukemia not having achieved remission Nava Cabral Nov 13, 2016 14:30 Clay Galicia MD Nov 13, 2016 16:19
[2016-11-13] MEDS: FILGRASTIM 480 MCG/1.6 ML VIAL SQ SCH (15:41)
[2016-11-13] MEDS ORDERED: METOPROLOL TARTRATE 5 MG/5 ML VIAL IV PUSH PRN (17:15)
[2016-11-13] MEDS ORDERED: METOPROLOL TARTRATE 50 MG TAB PO ONE (17:15)
[2016-11-14] VITALS: BP 126/59; PULSE 86; RESP 20; TEMP 99.3; O2SAT 97
[2016-11-14] MEDS: DILTIAZEM HCL 60 MG TAB PO SCH (02:05)
[2016-11-14 04:00] VITALS: BP 134/60; PULSE 84; RESP 20; TEMP 99.1; O2SAT 96
[2016-11-14] MEDS: SUCRALFATE 1 GM/10 ML CUP PO SCH ×4 (05:50→20:54)
[2016-11-14] MEDS: PANTOPRAZOLE SODIUM 40 MG VIAL IV PUSH SCH ×2 (05:52→17:45)
[2016-11-14 06:27] LABS: HEMATOCRIT 28.2 % (39.0-51.0); MEAN CELL VOLUME 91.2 FL (80.0-100.0); MEAN CORPUSCULAR HEMOGLOBIN 31.9 PG (27.0-34.0); MEAN CORPUSCULAR HGB CONC 34.9 % (32.0-36.0); PLATELET COUNT 37 TH/MM3 (150-450); RED BLOOD COUNT 3.09 MIL/MM3 (4.50-5.90); RED CELL DISTRIBUTION WIDTH 15.6 % (11.6-17.2); WHITE BLOOD COUNT 5.9 TH/MM3 (4.0-11.0)
[2016-11-14 06:33] LABS: HEMO FLAGS AUTO DIFF
[2016-11-14 07:03] LABS: ALKALINE PHOSPHATASE 64 U/L (45-117); ALT (GPT) 26 U/L (12-78); ANION GAP 10 MEQ/L (5-15); AST (GOT) 12 U/L (15-37); BLOOD UREA NITROGEN 47 MG/DL (7-18); CHLORIDE 95 MEQ/L (98-107); GLOMERULAR FILTRATION RATE 10 ML/MIN (>89); LDH SERUM 293 U/L (87-241); SODIUM (NA) 133 MEQ/L (136-145); TOTAL BILIRUBIN ADULT 0.8 MG/DL (0.2-1.0)
[2016-11-14 07:57] LABS: BANDS 28 % (0-6); DOHLE BODIES PRESENT (NONE SEEN); NEUTROPHIL # MANUAL DIFF 5.6 TH/MM3 (1.8-7.7); PLATELET ESTIMATE SMEAR LOW (NORMAL); PLATELET MORPHOLOGY NORMAL (NORMAL); POLYS (SEG NEUTROPHILS) 67 % (16-70); TOXIC GRANULATION 3+ (NORMAL); WBC DIFF SAMPLE 100
[2016-11-14 07:59] LABS: SCAN/DIFF FINAL DIFF MANUAL
[2016-11-14] MEDS: NYSTATIN SUSP 500,000 U/5 ML CUP SWISH-SWAL SCH ×4 (08:19→20:54)
[2016-11-14] MEDS: LACTOBACILLUS ACIDOPHILUS TAB PO SCH ×3 (08:20→17:45)
[2016-11-14] MEDS: SIMETHICONE 80 MG CHEWABLE TAB CHEW SCH ×4 (08:20→20:54)
[2016-11-14] MEDS: CALCIUM/VITAMIN D 250 MG/125 U TAB PO SCH ×2 (08:20→20:54)
[2016-11-14] MEDS: BUMETANIDE INJ 1 MG/4 ML VIAL IV PUSH SCH (08:20)
[2016-11-14] MEDS: ACYCLOVIR 200 MG CAP PO SCH ×2 (08:21→20:53)
[2016-11-14] MEDS: ALLOPURINOL 100 MG TAB PO SCH (08:21)
[2016-11-14] MEDS: METOPROLOL TARTRATE 25 MG TAB PO SCH ×2 (08:21→20:54)
[2016-11-14] MEDS: DILTIAZEM-CD 240 MG CAP ER PO SCH (08:21)
[2016-11-14] MEDS: FLUCONAZOLE 100 MG TAB PO SCH (08:21)
[2016-11-14] MEDS: MEGESTROL ACETATE SUSP 400 MG/10 ML CUP PO SCH (08:22)
[2016-11-14] MEDS: SODIUM CHLORIDE 0.9% FLUSH 10 ML FLUSH IVF SCH (08:23)
[2016-11-14] MEDS: MUPIROCIN 2% OINT 22 GM TUBE TOPICAL SCH ×2 (08:23→20:17)
[2016-11-14] MEDS: SODIUM CHLORIDE 0.9% FLUSH 10 ML FLUSH IV FLUSH SCH ×2 (08:23→20:58)
[2016-11-14] MEDS: SODIUM CHLORIDE 0.9% FLUSH 10 ML FLUSH IVF PRN (08:23)
--- NOTE | 2016-11-14 10:01 | HHI.NPPN ---
Subjective General Problems: Edema, Hypertension Renal Failure: Acute Interval History Seen during dialysis. Feeling okay today. He has low grade fevers overnight. (Nava Cabral) Review of Systems General Constitutional: Fatigue (Nava Cabral) Respiratory Lungs: SOB (Nava Cabral) Cardiovascular Cardiac: Edema, YOUNGER (Nava Cabral) Gastrointestinal Gastrointestinal: Nausea & Vomiting GI Remarks loss of appetite (Nava Cabral) Objective Data Data Vital Signs Date Time Temp Pulse Resp B/P (MAP) Pulse Ox O2 Delivery O2 Flow Rate FiO2 11/14/16 04:00 99.1 84 20 134/60 (84) 96 11/14/16 00:00 99.3 86 20 126/59 (81) 97 11/13/16 21:00 96 11/13/16 20:00 99.8 90 20 132/63 (86) 97 11/13/16 15:45 98.0 91 18 134/61 (85) 97 11/13/16 12:00 96 11/13/16 11:45 98.4 100 18 142/61 (88) 97 (Nava Cabral) -: 11/14/16 0549 11/14/16 0549 Tubes & Lines: Vas-Cath (Nava Cabral) Physical Exam General Appearance: Well Developed, Well Nourished, No Acute Distress, Comfortable (Nava Cabral) Eyes Eye Exam: Pupils Equal (Nava Cabral) Throat Throat Exam: Oral Mucosa [place] & Moist (Nava Cabral) Neck Neck Exam: Neck Supple (Nava Cabral) Pulmonary Resp Exam: Clear Bilaterally, Breath Sounds Equal, No Distress (Nava Cabral) Cardiology CV Exam: Regular, Normal Sinus Rhythm, Good Perfusion (Nava Cabral) Gastrointestinal/Abdomen GI Exam: Soft, Non-Tender, Bowel Sounds Present, Positive Bowel Movement (Nava Cabral) Musculoskeletal MS Exam: Joints Intact, Normal Gait, Normal Tone MS Remarks generalized weakness (Nava Cabral) Integumentary Skin Exam: Clear, Warm, Dry, Intact (Nava Cabral) Extremeties Extremities Exam: Pedal Pulses Palpable, Moderate Edema, Pitting Edema Extremeties Remarks 1+ edema to lower extremities (Nava Cabral) Neurologic Neuro Exam: Alert, Awake, Oriented, Speech Clear, Moving All Extremities (Nava Cabral) Psychiatric Psych Exam: Appropriate Responses (Nava Cabral) Assessment/Plan Discussed Condition With: Patient Assessment Summary: FAIZA/Acute Renal Failure, Hypertension Electrolyte Assessment: Hypocalcemia Problem List: (1) Acute kidney injury ICD Codes: N17.9 - Acute kidney failure, unspecified Status: Acute Plan: He has normal renal function at baseline, 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 (3) Hypocalcemia ICD Codes: E83.51 - Hypocalcemia Status: Acute Plan: follow serum calcium level Avoid IV calcium administration. 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 Non oliguric, renal function has not improved. Dialysis today. Replace phosphorus. (Clay Galicia MD) Problem Qualifiers (1) Acute lymphocytic leukemia: Qualified Codes: C91.00 - Acute lymphoblastic leukemia not having achieved remission Nava Cabral Nov 14, 2016 10:01 Clay Galicia MD Nov 14, 2016 15:04
[2016-11-14] MEDS: HEPARIN SODIUM - IV 10,000 UNITS/10 ML VIAL PRN (12:17)
[2016-11-14] MEDS: GENTAMICIN SULFATE (DIALYSIS USE ONLY) 20 MG/2 ML VIAL IV PRN (12:17)
--- NOTE | 2016-11-14 13:04 | PD.ONC.PN ---
Subjective Subjective Remarks TMax 99.8 overnight. Just back from dialysis. Feeling great. Sore throat improved. dyspepsia improved. eager to go home. Objective Data Date Time Temp Pulse Resp B/P (MAP) Pulse Ox O2 Delivery O2 Flow Rate FiO2 11/14/16 04:00 99.1 84 20 134/60 (84) 96 11/14/16 00:00 99.3 86 20 126/59 (81) 97 11/13/16 21:00 96 11/13/16 20:00 99.8 90 20 132/63 (86) 97 11/13/16 15:45 98.0 91 18 134/61 (85) 97 11/14/16 11/14/16 11/14/16 07:00 15:00 23:00 Intake Total 480 ml Output Total 401 ml Balance 79 ml Result Diagram: 11/14/16 0549 11/14/16 0549 Laboratory Results Laboratory Tests Test 11/14/16 05:49 White Blood Count 5.9 TH/MM3 Red Blood Count 3.09 MIL/MM3 Hemoglobin 9.9 GM/DL Hematocrit 28.2 % Mean Corpuscular Volume 91.2 FL Mean Corpuscular Hemoglobin 31.9 PG Mean Corpuscular Hemoglobin Concent 34.9 % Red Cell Distribution Width 15.6 % Platelet Count 37 TH/MM3 Mean Platelet Volume 8.3 FL CBC Comment AUTO DIFF Differential Total Cells Counted 100 Neutrophils % (Manual) 67 % Band Neutrophils % 28 % Lymphocytes % 2 % Monocytes % 3 % Neutrophils # (Manual) 5.6 TH/MM3 Differential Comment FINAL DIFF MANUAL Toxic Granulation 3+ Dohle Bodies PRESENT Platelet Estimate LOW Platelet Morphology Comment NORMAL Blood Urea Nitrogen 47 MG/DL Creatinine 5.65 MG/DL Random Glucose 115 MG/DL Total Protein 6.0 GM/DL Albumin 2.6 GM/DL Calcium Level 7.9 MG/DL Alkaline Phosphatase 64 U/L Aspartate Amino Transf (AST/SGOT) 12 U/L Alanine Aminotransferase (ALT/SGPT) 26 U/L Lactate Dehydrogenase 293 U/L Total Bilirubin 0.8 MG/DL Sodium Level 133 MEQ/L Potassium Level 4.0 MEQ/L Chloride Level 95 MEQ/L Carbon Dioxide Level 28.0 MEQ/L Anion Gap 10 MEQ/L Estimat Glomerular Filtration Rate 10 ML/MIN Culture Results Microbiology Date/Time Source Procedure Growth Status 11/12/16 07:50 Stool Stool Stool Occult Blood (JENIFER) - Final HEMOCCULT POSITIVE Complete Administered Medications Medications (Trade) Dose Ordered Sig/Daniel Route PRN Reason Start Time Stop Time Status Last Admin Dose Admin Sodium Chloride (NS Flush) 2 ml UNSCH PRN IV FLUSH FLUSH AFTER USING IV ACCESS 10/24/16 01:45 11/11/16 04:41 Sodium Chloride (NS Flush) 2 ml BID IV FLUSH 10/24/16 09:00 11/14/16 08:23 Sodium Chloride (NS Flush) DAILY IVF 10/25/16 09:00 11/14/16 08:23 Heparin Sodium (Porcine) (Heparin Central Flush) DAILY IV FLUSH 10/25/16 09:00 11/14/16 08:19 Sodium Chloride (NS Flush) 2 ml UNSCH PRN IVF SEE PROTOCOL 10/24/16 13:15 11/14/16 08:23 Lactobacillus Acidophilus (Lactinex) 1 tab TID PO 10/24/16 18:00 11/14/16 08:20 Miscellaneous (Pill Splitter) 1 ea UNSCH PRN OTHER SEE LABEL COMMENTS 10/30/16 06:45 10/30/16 06:36 Sodium Chloride 1,000 ml @ 0 mls/hr Q0M PRN IV For Prime & Rinse Back 10/30/16 08:47 11/12/16 14:00 Sodium Chloride (NS Flush) 5 ml UNSCH PRN IV FLUSH WITH DIALYSIS 10/30/16 09:00 11/11/16 04:41 Heparin Sodium (Porcine) (Heparin Inj) UNSCH PRN .XX WITH DIALYSIS 10/30/16 09:00 11/14/16 12:17 Gentamicin Sulfate (Gentamicin (Dialysis) Inj) 20 mg UNSCH PRN IV WITH DIALYSIS 10/30/16 09:00 11/14/16 12:17 Ondansetron HCl (Zofran Inj) 4 mg UNSCH PRN IV WITH DIALYSIS 10/30/16 09:00 11/03/16 23:59 Acetaminophen (Tylenol) 650 mg UNSCH PRN PO for headach, pain, temp > 101F 10/30/16 09:00 11/07/16 23:21 Diphenhydramine HCl (Benadryl) 25 mg UNSCH PRN PO for hives/itching/anaphylaxis 10/30/16 09:00 11/10/16 10:55 Mupirocin (Bactroban 2% Oint) 1 applic Q12HR TOPICAL 11/01/16 21:00 11/02/16 21:00 Allopurinol (Zyloprim) 200 mg DAILY PO 11/02/16 09:00 11/14/16 08:21 Ondansetron HCl (Zofran Inj) 4 mg Q6H PRN IV PUSH nausea 11/04/16 08:45 11/11/16 20:57 Simethicone (Mylicon Chew) 80 mg PCHS CHEW 11/04/16 10:30 11/14/16 08:20 Calcium/Vitamin D (Oscal-D 250-125) 500 mg Q12HR PO 11/07/16 21:00 11/14/16 08:20 Hydromorphone HCl (Dilaudid Pf Inj) 1 mg Q3H PRN IV PAIN 6-10 11/08/16 16:45 11/09/16 06:36 Sucralfate (Carafate Liq) 1 gm ACHS PO 11/08/16 21:00 11/14/16 05:50 Pantoprazole Sodium (Protonix Inj) 40 mg Q12H IV PUSH 11/08/16 17:45 11/14/16 05:52 Diphenhydramine HCl (Benadryl) 25 mg Q4H PRN PO SEE LABEL COMMENTS 11/10/16 07:30 11/12/16 13:00 Megestrol Acetate (Megace Liq) 400 mg DAILY PO 11/11/16 09:00 11/14/16 08:22 Cefepime HCl 1000 mg/Sodium Chloride 100 ml @ 200 mls/hr Q48H PRN IV WITH DIALYSIS 11/10/16 12:15 11/14/16 12:16 Nystatin (Mycostatin Liq) 5 ml QID SWISH-SWAL 11/11/16 09:00 11/14/16 08:19 Bumetanide (Bumex Inj) 2 mg DAILY IV PUSH 11/12/16 09:00 11/14/16 08:20 Fluconazole (Diflucan) 100 mg DAILY PO 11/11/16 13:15 11/18/16 13:14 11/14/16 08:21 Acyclovir (Zovirax) 400 mg Q12HR PO 11/11/16 13:15 11/18/16 13:14 11/14/16 08:21 Metoprolol Tartrate (Lopressor) 25 mg Q12HR PO 11/14/16 09:00 11/14/16 08:21 Diltiazem HCl (Cardizem Cd) 240 mg DAILY PO 11/14/16 09:00 11/14/16 08:21 Objective Remarks GENERAL: Pleasant elderly male upright in bed in nad. SKIN: Warm and dry. HEAD: Normocephalic. EYES: No injection or drainage. NECK: Supple, trachea midline. CARDIOVASCULAR: IRR RESPIRATORY: Breath sounds equal bilaterally. No accessory muscle use. GASTROINTESTINAL: Abdomen soft, non-tender, nondistended. MUSCULOSKELETAL: No cyanosis, or edema. NEURO: awake and alert, normal speech. no obvious focal deficit. 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 His disease is negative for the BCR/ABL fusion gene. 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 S/p cycle 1 Hyper-CVAD + Rituxan and IT cytarabine. Plan 1. Started chemotherapy with Rituxan + hyper-CVAD on 10/26/2016; given the CD 20 positivity of the B-cell ALL on Flow cytometry on bone marrow aspiration specimen. [place] chromosome FISH negative for BCR/ABL. WBC recovered. will stop Neupogen. 2. TLS; with renal failure, Started on hemodialysis on 10/30/2016, second treatment on 10/31/2016. Rasburicase given 10/31. continue renally dosed allopurinol. 3. Continue supportive transfusions; daily CBCs. patient requires irradiated blood products. +CMV status. No transfusion today. 4. Low grade fevers: on only PO Acyclovir and Diflucan now--> Cefepime and Vanco stopped per ID. 5. AFib with RVR: on Lopressor + Cardizem for rate control. 6. Dyspepsia: on scheduled Protonix + PRN Zofran. dyspepsia is significantly improved. occasionally gets nausea but has not needed zofran. 7. Dysphagia: improved with Nystatin. will continue. 8. +dark stool: stool for occult blood was positive. Likely mucosal bleeding secondary to thrombocytopenia, this would not be a good time for an invasive workup with colonoscopy/EGD. monitor CBC for now. 9. Physical therapy following and recommends home with home health when appropriate. Problem Qualifiers (1) Acute lymphocytic leukemia: Qualified Codes: C91.00 - Acute lymphoblastic leukemia not having achieved remission Ava Akhtar Nov 14, 2016 13:04 Sukhwinder Rice MD Nov 15, 2016 09:41
[2016-11-14 13:10] VITALS: BP 134/64; PULSE 78; RESP 19; TEMP 97.7; O2SAT 99
--- NOTE | 2016-11-14 16:04 | HHI.PR ---
Subjective Remarks Follow up ALL, tumor lysis syndrome, renal failure. Patient states that he feels tired. Had dialysis today. Eating better. Objective Vitals Vital Signs Date Time Temp Pulse Resp B/P (MAP) Pulse Ox O2 Delivery O2 Flow Rate FiO2 11/14/16 13:10 97.7 78 19 134/64 (87) 99 11/14/16 04:00 99.1 84 20 134/60 (84) 96 11/14/16 00:00 99.3 86 20 126/59 (81) 97 11/13/16 21:00 96 11/13/16 20:00 99.8 90 20 132/63 (86) 97 I/O 11/13/16 11/13/16 11/13/16 11/14/16 11/14/16 11/14/16 07:00 15:00 23:00 07:00 15:00 23:00 Intake Total 1580 ml 750 ml 480 ml Output Total 200 ml 900 ml 100 ml 401 ml Balance -200 ml 680 ml 650 ml 79 ml Intake Oral 1480 ml 750 ml 480 ml IV Total 100 ml Output Urine Total 200 ml 900 ml 100 ml 400 ml Stool Total 1 ml # Bowel Movements 1 Result Diagram: 11/14/16 0549 11/14/16 0549 Imaging Last Impressions Gall Bladder Ultrasound 11/09/16 0000 Signed Impressions: Service Date/Time: Wednesday, November 09, 2016 12:22 - CONCLUSION: 1. Increased echogenicity throughout the liver suggestive of fatty infiltration. The liver is enlarged at 18.5 cm. 2. There are gallstones in the gallbladder. No biliary tract obstruction. Prasad Cade MD Abdomen/Pelvis CT 11/08/16 0000 Signed Impressions: Service Date/Time: Tuesday, November 08, 2016 15:00 - CONCLUSION: #1. Small right-sided pleural effusion. #2. Hazy increased density identified adjacent to the head of the pancreas as compared to the body and tail which may represent early changes of acute pancreatitis. Recommend correlation with patient's laboratory values. #3. Small anterior hernia with preperitoneal fat. This is seen approximately 2 cm superior to the umbilicus. Darcie Evans MD Chest X-Ray 11/01/16 0000 Signed Impressions: Service Date/Time: Tuesday, November 01, 2016 14:05 - CONCLUSION: Bibasilar densities likely atelectasis. Neal Castro MD Catheter Placement X-Ray 10/30/16 0826 Signed Impressions: Service Date/Time: October 11:04 - CONCLUSION: Uncomplicated Vas-Cath placement as above. Matt Lassiter MD Renal Ultrasound 10/30/16 0000 Signed Impressions: Service Date/Time: , October 30, 2016 08:13 - CONCLUSION: Unremarkable exam with no evidence of hydronephrosis. Wander Hodges MD Lumbar Puncture Fluoroscopy 10/27/16 0000 Signed Impressions: Service Date/Time: Thursday, October 27, 2016 12:19 - CONCLUSION: Uncomplicated fluoroscopically guided lumbar puncture with chemotherapy injection. Matt Lassiter MD PICC Line Insertion 10/24/16 0000 Signed Impressions: Service Date/Time: Monday, October 24, 2016 12:01 - CONCLUSION: 1. Uncomplicated central venous Power PICC line placement. 2. The PICC line can be used immediately. Serafin Saba MD Bone Biopsy CT 10/24/16 0000 Signed Impressions: Service Date/Time: Monday, October 24, 2016 16:09 - CONCLUSION: 1. Uncomplicated CT guided bone marrow aspirate. 2. Uncomplicated CT guided bone marrow biopsy. Balwinder Swenson MD Objective Remarks General: Obese male in no acute distress. Heart: Regular rate and rhythm. No murmur. Lungs: Clear to auscultation bilaterally. No wheezes, rales, or rhonchi. Breathing is nonlabored. Abdomen: Soft, nontender, nondistended. Extremities: Trace bilateral lower extremity edema. Psych: Alert and oriented. Procedures 10/24/16 PICC line placement 10/24/16 bone marrow biopsy 10/30/16 Vas-Cath placement Urinary Catheter: No Vascular Central Line Catheter: Yes Assessment to: Continue Date of Insertion: Oct 24, 2016 Line: PICC Side: Right A/P Problem List: (1) Pancytopenia ICD Code: D61.818 - Other pancytopenia Status: Acute (2) Pneumonia ICD Code: J18.9 - Pneumonia, unspecified organism Status: Acute (3) Acute lymphocytic leukemia ICD Code: C91.00 - Acute lymphoblastic leukemia not having achieved remission Status: Acute (4) Hypertension ICD Code: I10 - Essential (primary) hypertension Status: Chronic (5) Acute renal failure ICD Code: N17.9 - Acute kidney failure, unspecified (6) Tumor lysis syndrome ICD Code: E88.3 - Tumor lysis syndrome (7) Atrial fibrillation ICD Code: I48.91 - Unspecified atrial fibrillation Status: Acute Assessment and Plan 1. ALL: Appreciate oncology recommendations. Continue chemotherapy (hyperCVAD + Rituxan & Cytarabine). 2. Pneumonia: Off antibiotics per infectious disease. DuoNeb as needed. Stable on room air. 3. Hypertension: Continue amlodipine. Vasotec IV as needed. Blood pressure control improved. 4. DVT prophylaxis: SCDs, KRISTEN sauer. 5. Tumor lysis syndrome: S/P Rasburicase. Appreciate oncology, nephrology management. 6. Atrial fibrillation with RVR: Appreciate cardiology recommendations.2-D echocardiogram shows ejection fraction 55-60%. Continue oral Cardizem, metoprolol. 7. Acute renal failure: Dialysis per nephrology (-W-). 8. Poor oral intake: Likely secondary to chemotherapy. Continue Megace. Intake improving. Problem Qualifiers (1) Pneumonia: (2) Acute lymphocytic leukemia: Qualified Codes: C91.00 - Acute lymphoblastic leukemia not having achieved remission (3) Atrial fibrillation: Hugo Dumont MD Nov 14, 2016 16:04
[2016-11-14 16:50] VITALS: BP 140/63; PULSE 96; RESP 19; TEMP 99.9; O2SAT 96
[2016-11-14 20:44] VITALS: BP 121/54; PULSE 93; RESP 19; TEMP 100.1; O2SAT 94
[2016-11-14] MEDS: POTASSIUM PHOSPHATE/SODIUM PHOSPHATE 250 MG TAB PO SCH (20:54)
[2016-11-14 21:00] VITALS: PULSE 94
[2016-11-15] VITALS (7 sets, daily range): BP systolic 127–158; BP diastolic 61–79; PULSE 80–103; RESP 16–21; TEMP 98–99.9; O2SAT 95–99
[2016-11-15] MEDS: PANTOPRAZOLE SODIUM 40 MG VIAL IV PUSH SCH ×2 (04:02→16:35)
[2016-11-15] MEDS: SUCRALFATE 1 GM/10 ML CUP PO SCH ×4 (04:03→19:25)
[2016-11-15 06:12] LABS: AUTOMATED NEUTROPHIL # 4.6 TH/MM3 (1.8-7.7); BASOPHIL % 0.1 % (0.0-2.0); HEMATOCRIT 25.9 % (39.0-51.0); LYMPH % 1.6 % (9.0-44.0); LYMPHOCYTE # 0.1 TH/MM3 (1.0-4.8); MEAN CELL VOLUME 91.4 FL (80.0-100.0); MEAN CORPUSCULAR HEMOGLOBIN 31.2 PG (27.0-34.0); MEAN CORPUSCULAR HGB CONC 34.1 % (32.0-36.0); MONO % 6.3 % (0.0-8.0); PLATELET COUNT 53 TH/MM3 (150-450); RED BLOOD COUNT 2.84 MIL/MM3 (4.50-5.90); RED CELL DISTRIBUTION WIDTH 15.1 % (11.6-17.2)
[2016-11-15 06:26] LABS: HEMO FLAGS AUTO DIFF
[2016-11-15 07:16] LABS: BICARBONATE 29.8 MEQ/L (21.0-32.0); MAGNESIUM 1.6 MG/DL (1.5-2.5); POTASSIUM 3.8 MEQ/L (3.5-5.1)
[2016-11-15 08:27] LABS: BANDS 10 % (0-6); METAMYELOCYTES 2 % (0-1); MYELOCYTES 2 % (0-0); NEUTROPHIL # MANUAL DIFF 4.9 TH/MM3 (1.8-7.7); POLYS (SEG NEUTROPHILS) 81 % (16-70); PROMYELOCYTES 2 % (0-0); WBC DIFF SAMPLE 100
[2016-11-15 08:30] LABS: PLATELET ESTIMATE SMEAR LOW (NORMAL); PLATELET MORPHOLOGY NORMAL (NORMAL); SCAN/DIFF FINAL DIFF MANUAL; TOXIC GRANULATION 1+ (NORMAL)
[2016-11-15] MEDS: ACYCLOVIR 200 MG CAP PO SCH ×2 (08:52→19:26)
[2016-11-15] MEDS: DILTIAZEM-CD 240 MG CAP ER PO SCH (08:52)
[2016-11-15] MEDS: SIMETHICONE 80 MG CHEWABLE TAB CHEW SCH ×4 (08:53→19:31)
[2016-11-15] MEDS: METOPROLOL TARTRATE 25 MG TAB PO SCH ×2 (08:53→19:26)
[2016-11-15] MEDS: CALCIUM/VITAMIN D 250 MG/125 U TAB PO SCH ×2 (08:53→19:26)
[2016-11-15] MEDS: FLUCONAZOLE 100 MG TAB PO SCH (08:54)
[2016-11-15] MEDS: MEGESTROL ACETATE SUSP 400 MG/10 ML CUP PO SCH (08:54)
[2016-11-15] MEDS: ALLOPURINOL 100 MG TAB PO SCH (08:54)
[2016-11-15] MEDS: POTASSIUM PHOSPHATE/SODIUM PHOSPHATE 250 MG TAB PO SCH ×2 (08:54→19:27)
[2016-11-15] MEDS: LACTOBACILLUS ACIDOPHILUS TAB PO SCH ×3 (08:54→16:36)
[2016-11-15] MEDS: NYSTATIN SUSP 500,000 U/5 ML CUP SWISH-SWAL SCH ×4 (08:54→19:25)
[2016-11-15] MEDS: SODIUM CHLORIDE 0.9% FLUSH 10 ML FLUSH IVF SCH (08:57)
[2016-11-15] MEDS: SODIUM CHLORIDE 0.9% FLUSH 10 ML FLUSH IV FLUSH SCH ×2 (08:57→19:30)
[2016-11-15] MEDS: BUMETANIDE INJ 1 MG/4 ML VIAL IV PUSH SCH (08:57)
[2016-11-15] MEDS: MUPIROCIN 2% OINT 22 GM TUBE TOPICAL SCH ×2 (08:58→19:31)
--- NOTE | 2016-11-15 09:52 | PD.ONC.PN ---
Subjective Subjective Remarks Patient seen and examined, vital signs, labs, medications and microbiology reviewed. I did discuss Mr. Chou's renal function and management of renal failure with his manager voice yesterday. Subjectively; the patient reports feeling a little bit better, he reports the shaking of his hands is improved, his breathing is better and he is able to ambulate easier. His appetite however remains poor. Patient also reports a diffuse rash that is broken out over his torso and arms, this is itchy. He also had a temperature max of 100.1F overnight. His dialysis catheter remains in place. He also has a PICC line in the right arm. Objective Data Date Time Temp Pulse Resp B/P (MAP) Pulse Ox O2 Delivery O2 Flow Rate FiO2 11/15/16 04:00 99.2 85 20 141/65 (90) 96 11/15/16 00:00 99.8 88 20 127/61 (83) 95 11/14/16 21:00 94 11/14/16 20:44 100.1 93 19 121/54 (76) 94 11/14/16 16:50 99.9 96 19 140/63 (88) 96 11/14/16 13:10 97.7 78 19 134/64 (87) 99 11/15/16 11/15/16 11/15/16 07:00 15:00 23:00 Intake Total 240 ml Output Total 300 ml Balance -60 ml Result Diagram: 11/15/16 0407 11/15/16 0407 Laboratory Results Laboratory Tests Test 11/15/16 04:07 White Blood Count 5.0 TH/MM3 Red Blood Count 2.84 MIL/MM3 Hemoglobin 8.8 GM/DL Hematocrit 25.9 % Mean Corpuscular Volume 91.4 FL Mean Corpuscular Hemoglobin 31.2 PG Mean Corpuscular Hemoglobin Concent 34.1 % Red Cell Distribution Width 15.1 % Platelet Count 53 TH/MM3 Mean Platelet Volume 8.2 FL Neutrophils (%) (Auto) 92.0 % Lymphocytes (%) (Auto) 1.6 % Monocytes (%) (Auto) 6.3 % Eosinophils (%) (Auto) 0.0 % Basophils (%) (Auto) 0.1 % Neutrophils # (Auto) 4.6 TH/MM3 Lymphocytes # (Auto) 0.1 TH/MM3 Monocytes # (Auto) 0.3 TH/MM3 Eosinophils # (Auto) 0.0 TH/MM3 Basophils # (Auto) 0.0 TH/MM3 CBC Comment AUTO DIFF Differential Total Cells Counted 100 Neutrophils % (Manual) 81 % Band Neutrophils % 10 % Lymphocytes % 1 % Monocytes % 2 % Neutrophils # (Manual) 4.9 TH/MM3 Metamyelocytes 2 % Myelocytes 2 % Promyelocytes 2 % Differential Comment FINAL DIFF MANUAL Toxic Granulation 1+ Platelet Estimate LOW Platelet Morphology Comment NORMAL Red Cell Morphology Comment NORMAL Blood Urea Nitrogen 34 MG/DL Creatinine 4.66 MG/DL Random Glucose 100 MG/DL Calcium Level 7.5 MG/DL Phosphorus Level 1.9 MG/DL Magnesium Level 1.6 MG/DL Sodium Level 137 MEQ/L Potassium Level 3.8 MEQ/L Chloride Level 98 MEQ/L Carbon Dioxide Level 29.8 MEQ/L Anion Gap 9 MEQ/L Estimat Glomerular Filtration Rate 13 ML/MIN Administered Medications Medications (Trade) Dose Ordered Sig/Daniel Route PRN Reason Start Time Stop Time Status Last Admin Dose Admin Sodium Chloride (NS Flush) 2 ml UNSCH PRN IV FLUSH FLUSH AFTER USING IV ACCESS 10/24/16 01:45 11/11/16 04:41 Sodium Chloride (NS Flush) 2 ml BID IV FLUSH 10/24/16 09:00 11/15/16 08:57 Sodium Chloride (NS Flush) DAILY IVF 10/25/16 09:00 11/14/16 08:23 Heparin Sodium (Porcine) (Heparin Central Flush) DAILY IV FLUSH 10/25/16 09:00 11/14/16 08:19 Sodium Chloride (NS Flush) 2 ml UNSCH PRN IVF SEE PROTOCOL 10/24/16 13:15 11/14/16 08:23 Lactobacillus Acidophilus (Lactinex) 1 tab TID PO 10/24/16 18:00 11/15/16 08:54 Miscellaneous (Pill Splitter) 1 ea UNSCH PRN OTHER SEE LABEL COMMENTS 10/30/16 06:45 10/30/16 06:36 Sodium Chloride 1,000 ml @ 0 mls/hr Q0M PRN IV For Prime & Rinse Back 10/30/16 08:47 11/12/16 14:00 Sodium Chloride (NS Flush) 5 ml UNSCH PRN IV FLUSH WITH DIALYSIS 10/30/16 09:00 11/11/16 04:41 Heparin Sodium (Porcine) (Heparin Inj) UNSCH PRN .XX WITH DIALYSIS 10/30/16 09:00 11/14/16 12:17 Gentamicin Sulfate (Gentamicin (Dialysis) Inj) 20 mg UNSCH PRN IV WITH DIALYSIS 10/30/16 09:00 11/14/16 12:17 Ondansetron HCl (Zofran Inj) 4 mg UNSCH PRN IV WITH DIALYSIS 10/30/16 09:00 11/03/16 23:59 Acetaminophen (Tylenol) 650 mg UNSCH PRN PO for headach, pain, temp > 101F 10/30/16 09:00 11/07/16 23:21 Diphenhydramine HCl (Benadryl) 25 mg UNSCH PRN PO for hives/itching/anaphylaxis 10/30/16 09:00 11/10/16 10:55 Mupirocin (Bactroban 2% Oint) 1 applic Q12HR TOPICAL 11/01/16 21:00 11/02/16 21:00 Allopurinol (Zyloprim) 200 mg DAILY PO 11/02/16 09:00 11/15/16 08:54 Ondansetron HCl (Zofran Inj) 4 mg Q6H PRN IV PUSH nausea 11/04/16 08:45 11/11/16 20:57 Simethicone (Mylicon Chew) 80 mg PCHS CHEW 11/04/16 10:30 11/15/16 08:53 Calcium/Vitamin D (Oscal-D 250-125) 500 mg Q12HR PO 11/07/16 21:00 11/15/16 08:53 Hydromorphone HCl (Dilaudid Pf Inj) 1 mg Q3H PRN IV PAIN 6-10 11/08/16 16:45 11/09/16 06:36 Sucralfate (Carafate Liq) 1 gm ACHS PO 11/08/16 21:00 11/15/16 04:03 Pantoprazole Sodium (Protonix Inj) 40 mg Q12H IV PUSH 11/08/16 17:45 11/15/16 04:02 Diphenhydramine HCl (Benadryl) 25 mg Q4H PRN PO SEE LABEL COMMENTS 11/10/16 07:30 11/12/16 13:00 Megestrol Acetate (Megace Liq) 400 mg DAILY PO 11/11/16 09:00 11/15/16 08:54 Nystatin (Mycostatin Liq) 5 ml QID SWISH-SWAL 11/11/16 09:00 11/15/16 08:54 Bumetanide (Bumex Inj) 2 mg DAILY IV PUSH 11/12/16 09:00 11/15/16 08:57 Fluconazole (Diflucan) 100 mg DAILY PO 11/11/16 13:15 11/18/16 13:14 11/15/16 08:54 Acyclovir (Zovirax) 400 mg Q12HR PO 11/11/16 13:15 11/18/16 13:14 11/15/16 08:52 Metoprolol Tartrate (Lopressor) 25 mg Q12HR PO 11/14/16 09:00 11/15/16 08:53 Diltiazem HCl (Cardizem Cd) 240 mg DAILY PO 11/14/16 09:00 11/15/16 08:52 Potassium Phos/ Sodium Phos (K-Phos Neutral) 250 mg BID PO 11/14/16 21:00 11/16/16 09:00 11/15/16 08:54 Objective Remarks GENERAL APPEARANCE: Mr. Chou is an elderly male, he is tall and heavy-set, He is laying in bed, has 2 or 3 layers of blankets on him and his hands are trembling. He appears tired fatigued and pale today. HEENT: Head atraumatic, normocephalic, conjunctivae are pale. Sclerae are anicteric, EOMI, PERRLA, oral exam no pharyngeal erythema. He has a submucosal bruise along the right side of the soft palate. NECK: No palpable cervical or supraclavicular lymphadenopathy. Right IJ Vas-Cath in place. RESPIRATORY: Good air movement bilaterally over the upper and middle lung zones , decreased breath sounds over the bases. No added breath sounds. CARDIOVASCULAR: Regular rate and rhythm, S1-S2. No obvious murmurs, gallops. ABDOMEN: Obese belly, soft, nontender, nondistended, no palpable organ enlargement, specifically no hepatosplenomegaly. EXTREMITIES: Lower extremities, positive for pretibial edema. No calf tenderness. PICC line in right arm. JAZ/LYMPH EXAMINATION: No cervical lymphadenopathy, no axillary lymphadenopathy and no inguinal lymphadenopathy. IMAGE EDITOR: Exam without any abnormal findings specifically no motor or sensory deficits. Skin: Maculopapular rash diffusely present over the anterior chest wall and back. 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 His disease is negative for the BCR/ABL fusion gene. 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 S/p cycle 1 Hyper-CVAD + Rituxan and IT cytarabine. Plan 1. Started chemotherapy with Rituxan + hyper-CVAD on 10/26/2016; given the CD 20 positivity of the B-cell ALL on Flow cytometry on bone marrow aspiration specimen. [place] chromosome FISH negative for BCR/ABL. WBC recovered. will stop Neupogen. 2. TLS; with renal failure, Started on hemodialysis on 10/30/2016, second treatment on 10/31/2016. Rasburicase given 10/31. continue renally dosed allopurinol. 3. Continue supportive transfusions; daily CBCs. patient requires irradiated blood products. +CMV status. WBC count and platelet count are recovering, no transfusion needed today. 4. Low grade fevers: on only PO Acyclovir and Diflucan now. Has a rash and also has low-grade temperatures, I have given him a dose of vancomycin 1.25 g IV 1 today and I have also asked ID to see him. 5. AFib with RVR: on Lopressor + Cardizem for rate control. 6. Dyspepsia: on scheduled Protonix + PRN Zofran. dyspepsia is significantly improved. occasionally gets nausea but has not needed zofran. 7. Dysphagia: improved with Nystatin. will continue. 8. +dark stool: stool for occult blood was positive. Likely mucosal bleeding secondary to thrombocytopenia, this would not be a good time for an invasive workup with colonoscopy/EGD. monitor CBC for now. 9. Physical therapy following and recommends home with home health when appropriate. Disposition: Continue ongoing care. I'm hopeful for discharge home or to rehabilitation early next week. Renal function will be monitored. Patient would prefer to keep his dialysis catheter in place, I however did explain that should he continue to have fevers the dialysis catheter will be removed as will the PICC line. Repeat blood cultures also ordered; one peripheral draw and 1 PICC line draw. Problem Qualifiers (1) Acute lymphocytic leukemia: Qualified Codes: C91.00 - Acute lymphoblastic leukemia not having achieved remission Sukhwinder Rice MD Nov 15, 2016 09:52
[2016-11-15] MEDS ORDERED: VANCOMYCIN INJ 1,250 MG in SODIUM CHLOR 0.9% 250 ML INJ 250 ML IV ONE (11:00)
--- NOTE | 2016-11-15 12:41 | HHI.PR ---
Subjective Remarks Follow up ALL, tumor lysis syndrome, renal failure. Patient seen and examined today. States he has been tolerating PO intake well. Denies any recent fever, chills, cough, shortness of breath, nausea, vomiting, diarrhea or dysuria. Temp of 100.1 overnight. Throat is clearing up, feels better. Complaint of itchy rash in upper trunk. Objective Vitals Vital Signs Date Time Temp Pulse Resp B/P (MAP) Pulse Ox O2 Delivery O2 Flow Rate FiO2 11/15/16 08:00 98.7 103 16 158/79 (105) 95 11/15/16 04:00 99.2 85 20 141/65 (90) 96 11/15/16 00:00 99.8 88 20 127/61 (83) 95 11/14/16 21:00 94 11/14/16 20:44 100.1 93 19 121/54 (76) 94 11/14/16 16:50 99.9 96 19 140/63 (88) 96 11/14/16 13:10 97.7 78 19 134/64 (87) 99 I/O 11/14/16 11/14/16 11/14/16 11/15/16 11/15/16 11/15/16 07:00 15:00 23:00 07:00 15:00 23:00 Intake Total 480 ml 1500 ml 240 ml Output Total 401 ml 725 ml 300 ml Balance 79 ml 775 ml -60 ml Intake Oral 480 ml 1500 ml 240 ml Output Urine Total 400 ml 725 ml 300 ml Stool Total 1 ml # Bowel Movements 0 1 Result Diagram: 11/15/16 0407 11/15/16 0407 Imaging Last Impressions Gall Bladder Ultrasound 11/09/16 0000 Signed Impressions: Service Date/Time: Wednesday, November 09, 2016 12:22 - CONCLUSION: 1. Increased echogenicity throughout the liver suggestive of fatty infiltration. The liver is enlarged at 18.5 cm. 2. There are gallstones in the gallbladder. No biliary tract obstruction. Prasad Cade MD Abdomen/Pelvis CT 11/08/16 0000 Signed Impressions: Service Date/Time: Tuesday, November 08, 2016 15:00 - CONCLUSION: #1. Small right-sided pleural effusion. #2. Hazy increased density identified adjacent to the head of the pancreas as compared to the body and tail which may represent early changes of acute pancreatitis. Recommend correlation with patient's laboratory values. #3. Small anterior hernia with preperitoneal fat. This is seen approximately 2 cm superior to the umbilicus. Darcie Evans MD Chest X-Ray 11/01/16 0000 Signed Impressions: Service Date/Time: Tuesday, November 01, 2016 14:05 - CONCLUSION: Bibasilar densities likely atelectasis. Neal Castro MD Catheter Placement X-Ray 10/30/16 0826 Signed Impressions: Service Date/Time: October 11:04 - CONCLUSION: Uncomplicated Vas-Cath placement as above. Matt Lassiter MD Renal Ultrasound 10/30/16 0000 Signed Impressions: Service Date/Time: October 08:13 - CONCLUSION: Unremarkable exam with no evidence of hydronephrosis. Wander Hodges MD Lumbar Puncture Fluoroscopy 10/27/16 0000 Signed Impressions: Service Date/Time: Thursday, October 27, 2016 12:19 - CONCLUSION: Uncomplicated fluoroscopically guided lumbar puncture with chemotherapy injection. Matt Lassiter MD PICC Line Insertion 10/24/16 0000 Signed Impressions: Service Date/Time: Monday, October 24, 2016 12:01 - CONCLUSION: 1. Uncomplicated central venous Power PICC line placement. 2. The PICC line can be used immediately. Serafin Saba MD Bone Biopsy CT 10/24/16 0000 Signed Impressions: Service Date/Time: Monday, October 24, 2016 16:09 - CONCLUSION: 1. Uncomplicated CT guided bone marrow aspirate. 2. Uncomplicated CT guided bone marrow biopsy. Balwinder Swenson MD Objective Remarks GENERAL: Well-nourished, well-developed patient. Lying in bed in no apparent distress. SKIN: Warm and dry. Rash noted to upper trunk and neck area. No urticaria. HEAD: Normocephalic. EYES: No scleral icterus. No injection or drainage. NECK: Supple, trachea midline. No JVD. CARDIOVASCULAR: Regular rate and rhythm without murmurs, gallops, or rubs. RESPIRATORY: Breath sounds equal bilaterally. No accessory muscle use. GASTROINTESTINAL: Abdomen soft, non-tender, nondistended. MUSCULOSKELETAL: No cyanosis, or edema. BACK: Nontender without obvious deformity. No CVA tenderness. 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 having achieved remission Status: Acute (4) Hypertension ICD Code: I10 - Essential (primary) hypertension Status: Chronic (5) Acute renal failure ICD Code: N17.9 - Acute kidney failure, unspecified (6) Tumor lysis syndrome ICD Code: E88.3 - Tumor lysis syndrome (7) Atrial fibrillation ICD Code: I48.91 - Unspecified atrial fibrillation Status: Acute Assessment and Plan 1. ALL: Appreciate oncology recommendations. Continue chemotherapy (hyperCVAD + Rituxan & Cytarabine). 2. Pneumonia: Off antibiotics per infectious disease. DuoNeb as needed. Stable on room air. 3. Hypertension: Continue amlodipine. Vasotec IV as needed. Blood pressure control improved. 4. DVT prophylaxis: Jurgen, KRISTEN sauer. 5. Tumor lysis syndrome: S/P Rasburicase. Appreciate oncology, nephrology management. 6. Atrial fibrillation with RVR: Appreciate cardiology recommendations.2-D echocardiogram shows ejection fraction 55-60%. Continue oral Cardizem, metoprolol. 7. Acute renal failure: Dialysis per nephrology (--). 8. Poor oral intake: Likely secondary to chemotherapy. Continue Megace. Still complaints of decreased appetite. Encouraged. 9. Truncal rash: Will update ID. No recent changes to medications or any new medications. On multiple antibiotics, difficult to assess which medication causing reaction. Benadryl available PRN. Will follow. Attending Statement Patient seen and examined. Has rash on upper back and chest that started yesterday. Rash is papular and there is evidence of excoriation. Patient denies chest pain, dyspnea, wheeze. Lungs are clear on exam. Only new medication is metoprolol, started 11/14/16. Benadryl as needed. Monitor rash. Problem Qualifiers (1) Pneumonia: (2) Acute lymphocytic leukemia: Qualified Codes: C91.00 - Acute lymphoblastic leukemia not having achieved remission (3) Atrial fibrillation: Diane Arrington Nov 15, 2016 12:41 Hugo Dumont MD Nov 15, 2016 15:48
--- NOTE | 2016-11-15 12:49 | HHI.NPPN ---
Subjective General Problems: Edema, Hypertension Renal Failure: Acute Additional Remarks Patient is sitting on chair, breathing is better. Review of Systems General Constitutional: Fatigue Respiratory Lungs: SOB Cardiovascular Cardiac: Edema, YOUNGER Gastrointestinal Gastrointestinal: Nausea & Vomiting GI Remarks loss of appetite Objective Data Data Vital Signs Date Time Temp Pulse Resp B/P (MAP) Pulse Ox O2 Delivery O2 Flow Rate FiO2 11/15/16 08:00 98.7 103 16 158/79 (105) 95 11/15/16 04:00 99.2 85 20 141/65 (90) 96 11/15/16 00:00 99.8 88 20 127/61 (83) 95 11/14/16 21:00 94 11/14/16 20:44 100.1 93 19 121/54 (76) 94 11/14/16 16:50 99.9 96 19 140/63 (88) 96 11/14/16 13:10 97.7 78 19 134/64 (87) 99 -: 11/15/16 0407 11/15/16 0407 Microbiology 11/15/16 Aerobic Blood Culture, Received Pending 11/15/16 Anaerobic Blood Culture, Received Pending 11/15/16 Aerobic Blood Culture, Received Pending 11/15/16 Anaerobic Blood Culture, Received Pending Tubes & Lines: Vas-Cath Physical Exam General Appearance: Well Developed, Well Nourished, No Acute Distress, Comfortable Eyes Eye Exam: Pupils Equal Throat Throat Exam: Oral Mucosa [place] & Moist Neck Neck Exam: Neck Supple Pulmonary Resp Exam: Clear Bilaterally, Breath Sounds Equal, No Distress Cardiology CV Exam: Regular, Normal Sinus Rhythm, Good Perfusion Gastrointestinal/Abdomen GI Exam: Soft, Non-Tender, Bowel Sounds Present, Positive Bowel Movement Musculoskeletal MS Exam: Joints Intact, Normal Gait, Normal Tone Integumentary Skin Exam: Clear, Warm, Dry, Intact Extremeties Extremities Exam: Moderate Edema, Pitting Edema Neurologic Neuro Exam: Alert, Awake, Oriented Psychiatric Psych Exam: Appropriate Responses Assessment/Plan Discussed Condition With: Patient Assessment Summary: FAIZA/Acute Renal Failure, Hypertension Electrolyte Assessment: Hypocalcemia Problem List: (1) Acute kidney injury ICD Codes: N17.9 - Acute kidney failure, unspecified Status: Acute Plan: He has normal renal function at baseline, FAIZA from Tumor lysis syndrome Received rasburicase on 10/31 s/p vascath placement 10/30, HD initiated 10/31 Continue HD MWF as needed; Last HD done yesterday. He is off IVF; continue Bumex once daily repeat renal panel daily, avoid nephrotoxins await renal recovery; his urine output adequate (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 (3) Hypocalcemia ICD Codes: E83.51 - Hypocalcemia Status: Acute Plan: follow serum calcium level Avoid IV calcium administration. hyperphosphatemia corrected (4) Pancytopenia ICD Codes: D61.818 - Other pancytopenia Status: Acute Plan: improving; ID and oncology following given Neupogen on cefepime and doxycycline monitor drug levels and renally dose medications if appropriate transfused with platelets 11/12 off neutropenic precautions (5) Hypophosphatasia ICD Codes: E83.39 - Other disorders of phosphorus metabolism Plan: previously hyperphosphatemic; now running low due to poor oral intake off Renvela ; replace as needed continue to monitor Problem Qualifiers (1) Acute lymphocytic leukemia: Qualified Codes: C91.00 - Acute lymphoblastic leukemia not having achieved remission Caity Jones MD Nov 15, 2016 12:49
--- NOTE | 2016-11-15 18:40 | HHI.IDPN ---
Note Infectious Disease Note ID COVERAGE Chart reviewed Patient with acute leukemia, status post induction chemotherapy Had problem with fever and neutropenia, and that has improved, and his counts are now normal I was asked to evaluate patient who has been off antibiotics since November 14, and having some low-grade fevers Patient states that he feels about the same. Denies any respiratory complaint. He is swallowing without any problem. No nausea or vomiting or diarrhea No abdominal pain No urinary complaints States he noted the rash about 2 days ago, and it was mildly itchy PAST HISTORY 1. Rheumatic fever 2. Removal of vocal polyps in his 20s. 3. Appendectomy ALLERGIES No drug allergies. MEDICATIONS Vancomycin Acyclovir Diflucan OBJECTIVE: Vital Signs Date Time Temp Pulse Resp B/P (MAP) Pulse Ox O2 Delivery O2 Flow Rate FiO2 11/15/16 16:00 98.7 92 20 136/78 (97) 99 11/15/16 12:00 98.0 80 16 136/63 (87) 97 11/15/16 08:00 98.7 103 16 158/79 (105) 95 11/15/16 04:00 99.2 85 20 141/65 (90) 96 11/15/16 00:00 99.8 88 20 127/61 (83) 95 11/14/16 21:00 94 11/14/16 20:44 100.1 93 19 121/54 (76) 94 Laboratory Tests Test 11/14/16 05:49 11/15/16 04:07 White Blood Count 5.9 TH/MM3 5.0 TH/MM3 Red Blood Count 3.09 MIL/MM3 2.84 MIL/MM3 Hemoglobin 9.9 GM/DL 8.8 GM/DL Hematocrit 28.2 % 25.9 % Mean Corpuscular Volume 91.2 FL 91.4 FL Mean Corpuscular Hemoglobin 31.9 PG 31.2 PG Mean Corpuscular Hemoglobin Concent 34.9 % 34.1 % Red Cell Distribution Width 15.6 % 15.1 % Platelet Count 37 TH/MM3 53 TH/MM3 Mean Platelet Volume 8.3 FL 8.2 FL CBC Comment AUTO DIFF AUTO DIFF Differential Total Cells Counted 100 100 Neutrophils % (Manual) 67 % 81 % Band Neutrophils % 28 % 10 % Lymphocytes % 2 % 1 % Monocytes % 3 % 2 % Neutrophils # (Manual) 5.6 TH/MM3 4.9 TH/MM3 Differential Comment FINAL DIFF MANUAL FINAL DIFF MANUAL Toxic Granulation 3+ 1+ Dohle Bodies PRESENT Platelet Estimate LOW LOW Platelet Morphology Comment NORMAL NORMAL Neutrophils (%) (Auto) 92.0 % Lymphocytes (%) (Auto) 1.6 % Monocytes (%) (Auto) 6.3 % Eosinophils (%) (Auto) 0.0 % Basophils (%) (Auto) 0.1 % Neutrophils # (Auto) 4.6 TH/MM3 Lymphocytes # (Auto) 0.1 TH/MM3 Monocytes # (Auto) 0.3 TH/MM3 Eosinophils # (Auto) 0.0 TH/MM3 Basophils # (Auto) 0.0 TH/MM3 Metamyelocytes 2 % Myelocytes 2 % Promyelocytes 2 % Red Cell Morphology Comment NORMAL Laboratory Tests Test 11/14/16 05:49 11/15/16 04:07 Blood Urea Nitrogen 47 MG/DL 34 MG/DL Creatinine 5.65 MG/DL 4.66 MG/DL Random Glucose 115 MG/DL 100 MG/DL Total Protein 6.0 GM/DL Albumin 2.6 GM/DL Calcium Level 7.9 MG/DL 7.5 MG/DL Alkaline Phosphatase 64 U/L Aspartate Amino Transf (AST/SGOT) 12 U/L Alanine Aminotransferase (ALT/SGPT) 26 U/L Lactate Dehydrogenase 293 U/L Total Bilirubin 0.8 MG/DL Sodium Level 133 MEQ/L 137 MEQ/L Potassium Level 4.0 MEQ/L 3.8 MEQ/L Chloride Level 95 MEQ/L 98 MEQ/L Carbon Dioxide Level 28.0 MEQ/L 29.8 MEQ/L Anion Gap 10 MEQ/L 9 MEQ/L Estimat Glomerular Filtration Rate 10 ML/MIN 13 ML/MIN Phosphorus Level 1.4 MG/DL 1.9 MG/DL Magnesium Level 1.6 MG/DL Microbiology Date/Time Source Procedure Growth Status 11/15/16 10:50 Blood Peripheral Aerobic Blood Culture Pending Received 11/15/16 10:50 Blood Peripheral Anaerobic Blood Culture Pending Received 11/15/16 10:50 Blood Line Aerobic Blood Culture Pending Received 11/15/16 10:50 Blood Line Anaerobic Blood Culture Pending Received IMAGING: Last Impressions Gall Bladder Ultrasound 11/09/16 0000 Signed Impressions: Service Date/Time: Wednesday, November 09, 2016 12:22 - CONCLUSION: 1. Increased echogenicity throughout the liver suggestive of fatty infiltration. The liver is enlarged at 18.5 cm. 2. There are gallstones in the gallbladder. No biliary tract obstruction. Prasad Cade MD Abdomen/Pelvis CT 11/08/16 0000 Signed Impressions: Service Date/Time: Tuesday, November 08, 2016 15:00 - CONCLUSION: #1. Small right-sided pleural effusion. #2. Hazy increased density identified adjacent to the head of the pancreas as compared to the body and tail which may represent early changes of acute pancreatitis. Recommend correlation with patient's laboratory values. #3. Small anterior hernia with preperitoneal fat. This is seen approximately 2 cm superior to the umbilicus. Darcie Evans MD Chest X-Ray 11/01/16 0000 Signed Impressions: Service Date/Time: Tuesday, November 01, 2016 14:05 - CONCLUSION: Bibasilar densities likely atelectasis. Neal Castro MD Catheter Placement X-Ray 10/30/16 0826 Signed Impressions: Service Date/Time: October 11:04 - CONCLUSION: Uncomplicated Vas-Cath placement as above. Matt Lassiter MD Renal Ultrasound 10/30/16 0000 Signed Impressions: Service Date/Time: October 08:13 - CONCLUSION: Unremarkable exam with no evidence of hydronephrosis. Wander Hodges MD Lumbar Puncture Fluoroscopy 10/27/16 0000 Signed Impressions: Service Date/Time: Thursday, October 27, 2016 12:19 - CONCLUSION: Uncomplicated fluoroscopically guided lumbar puncture with chemotherapy injection. Matt Lassiter MD PICC Line Insertion 10/24/16 0000 Signed Impressions: Service Date/Time: Monday, October 24, 2016 12:01 - CONCLUSION: 1. Uncomplicated central venous Power PICC line placement. 2. The PICC line can be used immediately. Serafin Saba MD Bone Biopsy CT 10/24/16 0000 Signed Impressions: Service Date/Time: Monday, October 24, 2016 16:09 - CONCLUSION: 1. Uncomplicated CT guided bone marrow aspirate. 2. Uncomplicated CT guided bone marrow biopsy. Balwinder Swenson MD Renal Ultrasound 10/30/16 0000 Signed Impressions: Service Date/Time: October 08:13 - CONCLUSION: Unremarkable exam with no evidence of hydronephrosis. Wander Hodges MD Chest X-Ray 10/29/16 0000 Signed Impressions: Service Date/Time: Saturday, October 29, 2016 08:10 - CONCLUSION: No acute disease. Dion Marmolejo Jr., MD PHYSICAL EXAMINATION GENERAL: Awake and alert. No acute distress. HEENT: No icterus. Oropharynx moist mucosa, ecchymosis at the R upper palate is fading. 2mm diameter shallow ulcer at upper right gum line looks improved. Edentulous. NECK: Supple, No adenopathy or swelling. Permacath looks ok LUNGS: Breath sounds clear. HEART: S1 and S2 without audible murmurs, rubs or gallops. ABDOMEN: Bowel sounds present, soft, and nontender. EXTREMITIES: No clubbing, cyanosis or edema. PICC ok SKIN: Has erythematous maculopapular rash in neck, upper trunk and whole back NEUROLOGIC: No gross focal findings. PSYCHIATRIC: Calm and cooperative. IMPRESSION Acute Lymphoblastic leukemia with pancytopenia. - Patient post induction chemotherapy. Neutropenia. resolve Low grade fevers - clinically no eevidence of new infection - certainly concern with his line - BC have been ordered - suspect could be low grade temps from drug eruption Acute renal failure. On hemodialysis. improving. Gingival stomatitis. Probably herpetic. Looks better. RECOMMENDATIONS Patient got a dose of Vanco He is on Diflucan and acyclovir Repeat blood cultures have been done and I will follow Follow temps Monitor rash I will not start any antibiotics in light of the possibility that the rash is causing the low-grade fevers and likely due to a drug eruption - He has been on broad-spectrum antibiotics, but beta-lactam (Cefepime) probably most common cause of allergy related to antibiotic Deonna Ansari MD Nov 15, 2016 18:40
[2016-11-15] MEDS ORDERED: LOPERAMIDE HCL 2 MG CAP PO PRN (23:30)
[2016-11-16] VITALS (8 sets, daily range): BP systolic 116–157; BP diastolic 57–70; PULSE 79–94; RESP 14–24; TEMP 97.2–99.3; O2SAT 95–99
[2016-11-16] MEDS: PANTOPRAZOLE SODIUM 40 MG VIAL IV PUSH SCH ×2 (04:36→17:21)
[2016-11-16] MEDS: SUCRALFATE 1 GM/10 ML CUP PO SCH ×4 (04:37→20:41)
[2016-11-16] MEDS: diphenhydrAMINE HCL 25 MG CAP PO PRN (04:38)
[2016-11-16] MEDS: MUPIROCIN 2% OINT 22 GM TUBE TOPICAL SCH ×2 (09:00→20:43)
[2016-11-16] MEDS: METOPROLOL TARTRATE 25 MG TAB PO SCH ×2 (09:13→20:41)
[2016-11-16] MEDS: CALCIUM/VITAMIN D 250 MG/125 U TAB PO SCH ×2 (09:13→20:41)
[2016-11-16] MEDS: DILTIAZEM-CD 240 MG CAP ER PO SCH (09:14)
[2016-11-16] MEDS: FLUCONAZOLE 100 MG TAB PO SCH (09:14)
[2016-11-16] MEDS: POTASSIUM PHOSPHATE/SODIUM PHOSPHATE 250 MG TAB PO SCH (09:14)
[2016-11-16] MEDS: ALLOPURINOL 100 MG TAB PO SCH (09:14)
[2016-11-16] MEDS: LACTOBACILLUS ACIDOPHILUS TAB PO SCH ×3 (09:14→17:21)
[2016-11-16] MEDS: SIMETHICONE 80 MG CHEWABLE TAB CHEW SCH ×4 (09:14→20:41)
[2016-11-16] MEDS: ACYCLOVIR 200 MG CAP PO SCH ×2 (09:14→20:41)
[2016-11-16] MEDS: NYSTATIN SUSP 500,000 U/5 ML CUP SWISH-SWAL SCH (09:15)
[2016-11-16] MEDS: MEGESTROL ACETATE SUSP 400 MG/10 ML CUP PO SCH (09:15)
[2016-11-16] MEDS: BUMETANIDE INJ 1 MG/4 ML VIAL IV PUSH SCH (09:15)
[2016-11-16] MEDS: SODIUM CHLORIDE 0.9% FLUSH 10 ML FLUSH IVF SCH (09:27)
[2016-11-16] MEDS: SODIUM CHLORIDE 0.9% FLUSH 10 ML FLUSH IV FLUSH SCH ×2 (09:28→20:41)
[2016-11-16] MEDS: SODIUM CHLORIDE 0.9% FLUSH 10 ML FLUSH IVF PRN (09:28)
--- NOTE | 2016-11-16 09:39 | PD.ONC.PN ---
Subjective Subjective Remarks Tmax 99.9 overnight. Had some dyspepsia last night while receiving antibiotic therapy. Also had an itching rash that he feels is improved this morning. Objective Data Date Time Temp Pulse Resp B/P (MAP) Pulse Ox O2 Delivery O2 Flow Rate FiO2 11/16/16 04:00 99.1 85 21 95 11/16/16 04:00 79 132/63 (86) 11/16/16 00:00 99.3 86 20 116/57 (76) 95 11/15/16 20:59 88 11/15/16 20:00 99.9 103 21 151/72 (98) 96 11/15/16 16:00 98.7 92 20 136/78 (97) 99 11/15/16 12:00 98.0 80 16 136/63 (87) 97 11/16/16 11/16/16 11/16/16 07:00 15:00 23:00 Intake Total 240 ml Output Total 300 ml Balance -60 ml Result Diagram: 11/15/167 11/15/16406 Culture Results Microbiology Date/Time Source Procedure Growth Status 11/15/16 10:50 Blood Peripheral Aerobic Blood Culture Pending Received 11/15/16 10:50 Blood Peripheral Anaerobic Blood Culture Pending Received 11/15/16 10:50 Blood Line Aerobic Blood Culture Pending Received 11/15/16 10:50 Blood Line Anaerobic Blood Culture Pending Received Administered Medications Medications (Trade) Dose Ordered Sig/Daniel Route PRN Reason Start Time Stop Time Status Last Admin Dose Admin Sodium Chloride (NS Flush) 2 ml UNSCH PRN IV FLUSH FLUSH AFTER USING IV ACCESS 10/24/16 01:45 11/11/16 04:41 Sodium Chloride (NS Flush) 2 ml BID IV FLUSH 10/24/16 09:00 11/16/16 09:28 Sodium Chloride (NS Flush) DAILY IVF 10/25/16 09:00 11/16/16 09:27 Heparin Sodium (Porcine) (Heparin Central Flush) DAILY IV FLUSH 10/25/16 09:00 11/14/16 08:19 Sodium Chloride (NS Flush) 2 ml UNSCH PRN IVF SEE PROTOCOL 10/24/16 13:15 11/16/16 09:28 Lactobacillus Acidophilus (Lactinex) 1 tab TID PO 10/24/16 18:00 11/16/16 09:14 Miscellaneous (Pill Splitter) 1 ea UNSCH PRN OTHER SEE LABEL COMMENTS 10/30/16 06:45 10/30/16 06:36 Sodium Chloride 1,000 ml @ 0 mls/hr Q0M PRN IV For Prime & Rinse Back 10/30/16 08:47 11/12/16 14:00 Sodium Chloride (NS Flush) 5 ml UNSCH PRN IV FLUSH WITH DIALYSIS 10/30/16 09:00 11/11/16 04:41 Heparin Sodium (Porcine) (Heparin Inj) UNSCH PRN .XX WITH DIALYSIS 10/30/16 09:00 11/14/16 12:17 Gentamicin Sulfate (Gentamicin (Dialysis) Inj) 20 mg UNSCH PRN IV WITH DIALYSIS 10/30/16 09:00 11/14/16 12:17 Ondansetron HCl (Zofran Inj) 4 mg UNSCH PRN IV WITH DIALYSIS 10/30/16 09:00 11/03/16 23:59 Acetaminophen (Tylenol) 650 mg UNSCH PRN PO for headach, pain, temp > 101F 10/30/16 09:00 11/07/16 23:21 Diphenhydramine HCl (Benadryl) 25 mg UNSCH PRN PO for hives/itching/anaphylaxis 10/30/16 09:00 11/16/16 04:38 Mupirocin (Bactroban 2% Oint) 1 applic Q12HR TOPICAL 11/01/16 21:00 11/02/16 21:00 Allopurinol (Zyloprim) 200 mg DAILY PO 11/02/16 09:00 11/16/16 09:14 Ondansetron HCl (Zofran Inj) 4 mg Q6H PRN IV PUSH nausea 11/04/16 08:45 11/11/16 20:57 Simethicone (Mylicon Chew) 80 mg PCHS CHEW 11/04/16 10:30 11/16/16 09:14 Calcium/Vitamin D (Oscal-D 250-125) 500 mg Q12HR PO 11/07/16 21:00 11/16/16 09:13 Hydromorphone HCl (Dilaudid Pf Inj) 1 mg Q3H PRN IV PAIN 6-10 11/08/16 16:45 11/09/16 06:36 Sucralfate (Carafate Liq) 1 gm ACHS PO 11/08/16 21:00 11/16/16 04:37 Pantoprazole Sodium (Protonix Inj) 40 mg Q12H IV PUSH 11/08/16 17:45 11/16/16 04:36 Diphenhydramine HCl (Benadryl) 25 mg Q4H PRN PO SEE LABEL COMMENTS 11/10/16 07:30 11/12/16 13:00 Megestrol Acetate (Megace Liq) 400 mg DAILY PO 11/11/16 09:00 11/16/16 09:15 Nystatin (Mycostatin Liq) 5 ml QID SWISH-SWAL 11/11/16 09:00 11/16/16 09:15 Bumetanide (Bumex Inj) 2 mg DAILY IV PUSH 11/12/16 09:00 11/16/16 09:15 Fluconazole (Diflucan) 100 mg DAILY PO 11/11/16 13:15 11/18/16 13:14 11/16/16 09:14 Acyclovir (Zovirax) 400 mg Q12HR PO 11/11/16 13:15 11/18/16 13:14 11/16/16 09:14 Metoprolol Tartrate (Lopressor) 25 mg Q12HR PO 11/14/16 09:00 11/16/16 09:13 Diltiazem HCl (Cardizem Cd) 240 mg DAILY PO 11/14/16 09:00 11/16/16 09:14 Loperamide HCl (Imodium) 2 mg Q4H PRN PO diarrhea 11/15/16 23:30 11/15/16 23:37 Objective Remarks GENERAL: Elderly pleasant male sitting upright in bed in [facility]. SKIN: Warm and dry. macular red rash on trunk and extremities. HEAD: Normocephalic. EYES: No injection or drainage. NECK: Supple, trachea midline. vas-cath in place, no bleeding CARDIOVASCULAR: Regular rate and rhythm RESPIRATORY: Breath sounds equal bilaterally. No accessory muscle use. GASTROINTESTINAL: Abdomen soft, non-tender, nondistended. EXTREMITIES: No cyanosis. MUSCULOSKELETAL: Adequate muscle tone. NEUROLOGICAL: No obvious focal deficit. Awake, alert, and oriented x3. 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 S/p cycle 1 Hyper-CVAD + Rituxan and IT cytarabine. Plan 1. Renal insufficiency: last HD on 11/14/16. on Bumex. Nephrology following. 2. Thrombocytopenia + Anemia: counts recovering. +CMV status. await CBC today. Has not required blood transfusion since 11/12. 3. Low grade fevers + rash: on PO Acyclovir and Diflucan prophylaxis. given vancomycin 1.25 g IV 1 on 11/15. BC pending. ID following and recommends no further abx at this time. 4. AFib with RVR: on Lopressor + Cardizem for rate control. 5. Dyspepsia: on scheduled Protonix as well as Carafate. still gets occasional dyspepsia 6. Dysphagia: resolved. stop Nystatin 7. +dark stool: stool for occult blood was positive. Likely mucosal bleeding secondary to thrombocytopenia, this would not be a good time for an invasive workup with colonoscopy/EGD. monitor CBC for now. 8. Physical therapy following and recommends home with home health when appropriate. Disposition: Continue ongoing care. I'm hopeful for discharge home or to rehabilitation early next week. Renal function will be monitored. Patient would prefer to keep his dialysis catheter in place, I however did explain that should he continue to have fevers the dialysis catheter will be removed as will the PICC line. Repeat blood cultures pending; one peripheral draw and 1 PICC line draw. Attending Statement The exam, history, and the medical decision-making described in the above note were completed with the assistance of the mid-level provider. I reviewed and agree with the findings presented. I attest that I had a [id number] encounter with the patient on the same day, and personally performed and documented my assessment and findings in the medical record. Pt seen and examined, VS, labs and medications reviewed. His rash is improved; it still however itches. He has been having low grade temps. Counts improved, renal function remains labile, he is non oligouric. He will likely require out patient HD. His R IJ Vascath may need to be converted to a tunneled cath prior to d/c. Antibiotic management per ID. Rash is likely a drug rash. Ava Akhtar Nov 16, 2016 09:39 Sukhwinder Rice MD Nov 16, 2016 20:15
--- NOTE | 2016-11-16 09:42 | HHI.PR ---
Subjective Remarks Follow up ALL, tumor lysis syndrome, renal failure. Patient seen and examined today. Does complain of diarrhea overnight, given Imodium. Eating well. Continued itchy rash on chest and back but states he thinks its improving. Denies any recent fever, chills, cough, shortness of breath, nausea, vomiting, diarrhea or dysuria. Objective Vitals Vital Signs Date Time Temp Pulse Resp B/P (MAP) Pulse Ox O2 Delivery O2 Flow Rate FiO2 11/16/16 04:00 99.1 85 21 95 11/16/16 04:00 79 132/63 (86) 11/16/16 00:00 99.3 86 20 116/57 (76) 95 11/15/16 20:59 88 11/15/16 20:00 99.9 103 21 151/72 (98) 96 11/15/16 16:00 98.7 92 20 136/78 (97) 99 11/15/16 12:00 98.0 80 16 136/63 (87) 97 I/O 11/15/16 11/15/16 11/15/16 11/16/16 11/16/16 11/16/16 07:00 15:00 23:00 07:00 15:00 23:00 Intake Total 240 ml 236 ml 480 ml 240 ml Output Total 300 ml 475 ml 300 ml 300 ml Balance -60 ml -239 ml 180 ml -60 ml Intake Oral 240 ml 236 ml 480 ml 240 ml Output Urine Total 300 ml 475 ml 300 ml 300 ml # Voids 3 # Bowel Movements 1 0 1 Result Diagram: 11/15/16 0407 11/15/16 0407 Objective Remarks GENERAL: Well-nourished, well-developed patient. Lying in bed in no apparent distress. SKIN: Warm and dry. Rash noted to upper trunk and neck area. No urticaria. HEAD: Normocephalic. EYES: No scleral icterus. No injection or drainage. NECK: Supple, trachea midline. No JVD. CARDIOVASCULAR: Regular rate and rhythm without murmurs, gallops, or rubs. RESPIRATORY: Breath sounds equal bilaterally. No accessory muscle use. GASTROINTESTINAL: Abdomen soft, non-tender, nondistended. MUSCULOSKELETAL: No cyanosis, or edema. BACK: Nontender without obvious deformity. No CVA tenderness. 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 having achieved remission Status: Acute (4) Hypertension ICD Code: I10 - Essential (primary) hypertension Status: Chronic (5) Acute renal failure ICD Code: N17.9 - Acute kidney failure, unspecified (6) Tumor lysis syndrome ICD Code: E88.3 - Tumor lysis syndrome (7) Atrial fibrillation ICD Code: I48.91 - Unspecified atrial fibrillation Status: Acute Assessment and Plan 1. ALL: Appreciate oncology recommendations. Continue chemotherapy (hyperCVAD + Rituxan & Cytarabine). 2. Pneumonia: Off antibiotics per infectious disease. DuoNeb as needed. Stable on room air. 3. Hypertension: Continue amlodipine. Vasotec IV as needed. Blood pressure control improved. 4. DVT prophylaxis: BETHs, KRISTEN sauer. 5. Tumor lysis syndrome: S/P Rasburicase. Appreciate oncology, nephrology management. 6. Atrial fibrillation with RVR: Appreciate cardiology recommendations.2-D echocardiogram shows ejection fraction 55-60%. Continue oral Cardizem, metoprolol. 7. Acute renal failure: Dialysis per nephrology (M-W-). Adequate UO. HD in am. Avoid nephrotoxins. 8. Poor oral intake: Likely secondary to chemotherapy. Continue Megace. Complaints of decreased appetite. Encouraged. 9. Rash: Has rash on upper back and chest that started 2 days ago. Rash is papular and there is evidence of excoriation. Patient denies chest pain, dyspnea , wheeze. Lungs are clear on exam. Only new medication is metoprolol, started 11/14/16. Monitor rash. On multiple antibiotics, difficult to assess which medication causing reaction. Benadryl available PRN. Will follow. 10. Diarrhea: Acute overnight. Was given one time dose of Imodium. Cdiff checked on 11/06/16 which was negative. Will repeat. Follow. Problem Qualifiers (1) Pneumonia: (2) Acute lymphocytic leukemia: Qualified Codes: C91.00 - Acute lymphoblastic leukemia not having achieved remission (3) Atrial fibrillation: Diane Arrington Nov 16, 2016 09:42
[2016-11-16 12:14] LABS: AUTOMATED NEUTROPHIL # 3.7 TH/MM3 (1.8-7.7); BASOPHIL % 0.1 % (0.0-2.0); HEMATOCRIT 26.8 % (39.0-51.0); LYMPH % 1.5 % (9.0-44.0); LYMPHOCYTE # 0.1 TH/MM3 (1.0-4.8); MEAN CELL VOLUME 90.9 FL (80.0-100.0); MEAN CORPUSCULAR HEMOGLOBIN 32.1 PG (27.0-34.0); MEAN CORPUSCULAR HGB CONC 35.4 % (32.0-36.0); MONO % 8.5 % (0.0-8.0); NEUT % 89.9 % (16.0-70.0); PLATELET COUNT 85 TH/MM3 (150-450); RED BLOOD COUNT 2.94 MIL/MM3 (4.50-5.90); RED CELL DISTRIBUTION WIDTH 15.4 % (11.6-17.2); WHITE BLOOD COUNT 4.1 TH/MM3 (4.0-11.0)
[2016-11-16 12:16] LABS: HEMO FLAGS AUTO DIFF
[2016-11-16 12:46] LABS: BANDS 14 % (0-6); CORRECTED NUCLEATED RBC 2 /100 WBC (0-0); METAMYELOCYTES 5 % (0-1); MYELOCYTES 4 % (0-0); NEUTROPHIL # MANUAL DIFF 3.9 TH/MM3 (1.8-7.7); POLYS (SEG NEUTROPHILS) 72 % (16-70); WBC DIFF SAMPLE 100
[2016-11-16 12:47] LABS: PLATELET ESTIMATE SMEAR LOW (NORMAL); PLATELET MORPHOLOGY NORMAL (NORMAL); SCAN/DIFF FINAL DIFF MANUAL; TOXIC GRANULATION 1+ (NORMAL)
[2016-11-16 12:49] LABS: BICARBONATE 28.1 MEQ/L (21.0-32.0); POTASSIUM 3.6 MEQ/L (3.5-5.1)
[2016-11-16 12:57] LABS: INDIRECT BILIRUBIN 0.4 MG/DL (0.0-0.8); TOTAL BILIRUBIN ADULT 0.6 MG/DL (0.2-1.0)
--- NOTE | 2016-11-16 14:06 | HHI.NPPN ---
Subjective General Problems: Edema, Hypertension Renal Failure: Acute Additional Remarks Patient is clinically same, no SOB. Review of Systems General Constitutional: Fatigue Respiratory Lungs: SOB Cardiovascular Cardiac: Edema, YOUNGER Gastrointestinal Gastrointestinal: Nausea & Vomiting GI Remarks loss of appetite Objective Data Data Vital Signs Date Time Temp Pulse Resp B/P (MAP) Pulse Ox O2 Delivery O2 Flow Rate FiO2 11/16/16 12:00 98.0 82 18 120/59 (79) 97 11/16/16 08:00 97.8 81 24 120/67 (84) 95 11/16/16 04:00 99.1 85 21 95 11/16/16 04:00 79 132/63 (86) 11/16/16 00:00 99.3 86 20 116/57 (76) 95 11/15/16 20:59 88 11/15/16 20:00 99.9 103 21 151/72 (98) 96 11/15/16 16:00 98.7 92 20 136/78 (97) 99 -: 11/16/16 1130 11/16/16 1130 Tubes & Lines: Vas-Cath Physical Exam General Appearance: Well Developed, Well Nourished, No Acute Distress, Comfortable Eyes Eye Exam: Pupils Equal Throat Throat Exam: Oral Mucosa [place] & Moist Neck Neck Exam: Neck Supple Pulmonary Resp Exam: Clear Bilaterally, Breath Sounds Equal, No Distress Cardiology CV Exam: Regular, Normal Sinus Rhythm, Good Perfusion Gastrointestinal/Abdomen GI Exam: Soft, Non-Tender, Bowel Sounds Present, Positive Bowel Movement Musculoskeletal MS Exam: Joints Intact, Normal Gait, Normal Tone Integumentary Skin Exam: Clear, Warm, Dry, Intact Extremeties Extremities Exam: Moderate Edema, Pitting Edema Neurologic Neuro Exam: Alert, Awake, Oriented Psychiatric Psych Exam: Appropriate Responses Assessment/Plan Discussed Condition With: Patient Assessment Summary: FAIZA/Acute Renal Failure, Hypertension Electrolyte Assessment: Hypocalcemia Problem List: (1) Acute kidney injury ICD Codes: N17.9 - Acute kidney failure, unspecified Status: Acute Plan: He has normal renal function at baseline, FAIZA from Tumor lysis syndrome Received rasburicase on 10/31 s/p vascath placement 10/30, HD initiated 10/31 Continue HD MWF as needed; Last HD done yesterday. He is off IVF; continue Bumex once daily repeat renal panel daily, avoid nephrotoxins await renal recovery; his urine output adequate. Creatinine still elevated, HD will be in AM. 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 (3) Hypocalcemia ICD Codes: E83.51 - Hypocalcemia Status: Acute Plan: follow serum calcium level Avoid IV calcium administration. hyperphosphatemia corrected (4) Pancytopenia ICD Codes: D61.818 - Other pancytopenia Status: Acute Plan: improving; ID and oncology following given Neupogen on cefepime and doxycycline monitor drug levels and renally dose medications if appropriate transfused with platelets 11/12 off neutropenic precautions (5) Hypophosphatasia ICD Codes: E83.39 - Other disorders of phosphorus metabolism Plan: previously hyperphosphatemic; now running low due to poor oral intake off Renvela ; replace as needed continue to monitor Problem Qualifiers (1) Acute lymphocytic leukemia: Qualified Codes: C91.00 - Acute lymphoblastic leukemia not having achieved remission Caity Jones MD Nov 16, 2016 14:06
[2016-11-16 19:42] LABS: C. DIFF EPI 027 PRESUMPTIVE NEGATIVE (NEGATIVE)
[2016-11-17] VITALS (12 sets, daily range): BP systolic 112–150; BP diastolic 56–77; PULSE 76–104; RESP 18–20; TEMP 97.9–99.4; O2SAT 95–98
[2016-11-17] MEDS: diphenhydrAMINE HCL 25 MG CAP PO PRN (02:42)
[2016-11-17] MEDS: PANTOPRAZOLE SODIUM 40 MG VIAL IV PUSH SCH ×2 (04:53→18:24)
[2016-11-17] MEDS: SUCRALFATE 1 GM/10 ML CUP PO SCH ×4 (04:53→23:22)
[2016-11-17 05:29] LABS: AUTOMATED NEUTROPHIL # 3.9 TH/MM3 (1.8-7.7); BASOPHIL % 0.1 % (0.0-2.0); EOSINOPHIL % 0.1 % (0.0-4.0); HEMATOCRIT 27.7 % (39.0-51.0); LYMPH % 1.9 % (9.0-44.0); LYMPHOCYTE # 0.1 TH/MM3 (1.0-4.8); MEAN CELL VOLUME 91.7 FL (80.0-100.0); MEAN CORPUSCULAR HEMOGLOBIN 31.9 PG (27.0-34.0); MEAN CORPUSCULAR HGB CONC 34.8 % (32.0-36.0); MONO % 13.6 % (0.0-8.0); NEUT % 84.3 % (16.0-70.0); PLATELET COUNT 109 TH/MM3 (150-450); RED BLOOD COUNT 3.02 MIL/MM3 (4.50-5.90); RED CELL DISTRIBUTION WIDTH 15.4 % (11.6-17.2); WHITE BLOOD COUNT 4.6 TH/MM3 (4.0-11.0)
[2016-11-17 05:39] LABS: HEMO FLAGS AUTO DIFF
[2016-11-17 08:36] LABS: BANDS 14 % (0-6); METAMYELOCYTES 4 % (0-1); MYELOCYTES 5 % (0-0); NEUTROPHIL # MANUAL DIFF 4.5 TH/MM3 (1.8-7.7); PLATELET ESTIMATE SMEAR LOW (NORMAL); POLYS (SEG NEUTROPHILS) 71 % (16-70); PROMYELOCYTES 3 % (0-0); TOXIC GRANULATION 1+ (NORMAL); WBC DIFF SAMPLE 100
[2016-11-17 08:37] LABS: PLATELET MORPHOLOGY NORMAL (NORMAL); SCAN/DIFF FINAL DIFF MANUAL
[2016-11-17] MEDS: MEGESTROL ACETATE SUSP 400 MG/10 ML CUP PO SCH (09:30)
[2016-11-17] MEDS: CALCIUM/VITAMIN D 250 MG/125 U TAB PO SCH ×2 (09:30→21:50)
[2016-11-17] MEDS: METOPROLOL TARTRATE 25 MG TAB PO SCH ×2 (09:30→21:51)
[2016-11-17] MEDS: LACTOBACILLUS ACIDOPHILUS TAB PO SCH ×3 (09:39→18:25)
[2016-11-17] MEDS: SIMETHICONE 80 MG CHEWABLE TAB CHEW SCH ×4 (09:39→21:51)
--- NOTE | 2016-11-17 09:47 | HHI.NPPN ---
Subjective General Problems: Edema, Hypertension Renal Failure: Acute Interval History seen during dialysis. He has lower extremity edema, good urine output, but no signs of renal recovery. Review of Systems General Constitutional: Fatigue Respiratory Lungs: SOB Cardiovascular Cardiac: Edema, YOUNGER Gastrointestinal Gastrointestinal: Nausea & Vomiting GI Remarks loss of appetite Objective Data Data Vital Signs Date Time Temp Pulse Resp B/P (MAP) Pulse Ox O2 Delivery O2 Flow Rate FiO2 11/17/16 08:00 98.5 80 20 130/59 (82) 96 11/17/16 04:40 98.7 82 18 150/72 (98) 97 11/17/16 04:03 80 11/17/16 00:35 99.4 85 19 112/56 (74) 96 11/17/16 00:09 76 11/16/16 20:30 97.7 94 18 157/70 (99) 97 11/16/16 20:04 93 11/16/16 19:41 99 11/16/16 16:00 97.2 92 14 121/61 (81) 97 11/16/16 12:00 98.0 82 18 120/59 (79) 97 -: 11/17/16 0500 11/16/16 1130 Tubes & Lines: Vas-Cath Physical Exam General Appearance: Well Developed, Well Nourished, No Acute Distress, Comfortable Eyes Eye Exam: Pupils Equal Throat Throat Exam: Oral Mucosa Cale & Moist Neck Neck Exam: Neck Supple Pulmonary Resp Exam: Clear Bilaterally, Breath Sounds Equal, No Distress Cardiology CV Exam: Regular, Normal Sinus Rhythm, Good Perfusion Gastrointestinal/Abdomen GI Exam: Soft, Non-Tender, Bowel Sounds Present, Positive Bowel Movement Musculoskeletal MS Exam: Joints Intact, Normal Gait, Normal Tone Integumentary Skin Exam: Clear, Warm, Dry, Intact Extremeties Extremities Exam: Moderate Edema, Pitting Edema Neurologic Neuro Exam: Alert, Awake, Oriented Psychiatric Psych Exam: Appropriate Responses Assessment/Plan Discussed Condition With: Patient Assessment Summary: FAIZA/Acute Renal Failure, Hypertension Electrolyte Assessment: Hypocalcemia Problem List: (1) Acute kidney injury ICD Codes: N17.9 - Acute kidney failure, unspecified Status: Acute Plan: 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 Non oliguric, however no renal recovery yet. Dialysis today on 3K, UF goal is 3 liters. He does have lower extremity edema, continue Bumex. Remove Vascath today after dialysis, it is poorly functioning, he will need a new Vascath or PermCath. 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 (3) Hypocalcemia ICD Codes: E83.51 - Hypocalcemia Status: Acute Plan: follow serum calcium level Avoid IV calcium administration. hyperphosphatemia corrected (4) Pancytopenia ICD Codes: D61.818 - Other pancytopenia Status: Acute Plan: improving; ID and oncology following given Neupogen on cefepime and doxycycline monitor drug levels and renally dose medications if appropriate transfused with platelets 11/12 off neutropenic precautions (5) Hypophosphatasia ICD Codes: E83.39 - Other disorders of phosphorus metabolism Plan: previously hyperphosphatemic; now running low due to poor oral intake off Renvela ; replace as needed continue to monitor Problem Qualifiers (1) Acute lymphocytic leukemia: Qualified Codes: C91.00 - Acute lymphoblastic leukemia not having achieved remission Clay Galicia MD Nov 17, 2016 09:47
--- NOTE | 2016-11-17 11:26 | PD.ONC.PN ---
Subjective Subjective Remarks Patient seen and examined, vital signs, medications and labs reviewed. He is presently on hemodialysis in the dialysis suite. He remained afebrile over the past 24 hours, tells me he wants to eat but tends to get nausea when he tries. Does feel a bit stronger, a little less shakier and reports his breathing is better when he gets up out of bed. He denies fevers or chills or overt bleeding. Denies having diarrhea. Objective Data Date Time Temp Pulse Resp B/P (MAP) Pulse Ox O2 Delivery O2 Flow Rate FiO2 11/17/16 08:00 98.5 80 20 130/59 (82) 96 11/17/16 07:20 77 11/17/16 04:40 98.7 82 18 150/72 (98) 97 11/17/16 04:03 80 11/17/16 00:35 99.4 85 19 112/56 (74) 96 11/17/16 00:09 76 11/16/16 20:30 97.7 94 18 157/70 (99) 97 11/16/16 20:04 93 11/16/16 19:41 99 11/16/16 16:00 97.2 92 14 121/61 (81) 97 11/16/16 12:00 98.0 82 18 120/59 (79) 97 11/17/16 11/17/16 11/17/16 06:59 14:59 22:59 Intake Total 1000 ml Output Total 350 ml Balance 650 ml Result Diagram: 11/17/16 0500 11/16/16 1130 Laboratory Results Laboratory Tests Test 11/16/16 11:30 11/16/16 18:10 11/17/16 05:00 White Blood Count 4.1 TH/MM3 4.6 TH/MM3 Red Blood Count 2.94 MIL/MM3 3.02 MIL/MM3 Hemoglobin 9.5 GM/DL 9.7 GM/DL Hematocrit 26.8 % 27.7 % Mean Corpuscular Volume 90.9 FL 91.7 FL Mean Corpuscular Hemoglobin 32.1 PG 31.9 PG Mean Corpuscular Hemoglobin Concent 35.4 % 34.8 % Red Cell Distribution Width 15.4 % 15.4 % Platelet Count 85 TH/MM3 109 TH/MM3 Mean Platelet Volume 8.7 FL 7.9 FL Neutrophils (%) (Auto) 89.9 % 84.3 % Lymphocytes (%) (Auto) 1.5 % 1.9 % Monocytes (%) (Auto) 8.5 % 13.6 % Eosinophils (%) (Auto) 0.0 % 0.1 % Basophils (%) (Auto) 0.1 % 0.1 % Neutrophils # (Auto) 3.7 TH/MM3 3.9 TH/MM3 Lymphocytes # (Auto) 0.1 TH/MM3 0.1 TH/MM3 Monocytes # (Auto) 0.3 TH/MM3 0.6 TH/MM3 Eosinophils # (Auto) 0.0 TH/MM3 0.0 TH/MM3 Basophils # (Auto) 0.0 TH/MM3 0.0 TH/MM3 CBC Comment AUTO DIFF AUTO DIFF Differential Total Cells Counted 100 100 Neutrophils % (Manual) 72 % 71 % Band Neutrophils % 14 % 14 % Monocytes % 5 % 3 % Neutrophils # (Manual) 3.9 TH/MM3 4.5 TH/MM3 Metamyelocytes 5 % 4 % Myelocytes 4 % 5 % Nucleated Red Blood Cells 2 /100 WBC Differential Comment FINAL DIFF MANUAL FINAL DIFF MANUAL Toxic Granulation 1+ 1+ Platelet Estimate LOW LOW Platelet Morphology Comment NORMAL NORMAL Red Cell Morphology Comment NORMAL NORMAL Blood Urea Nitrogen 48 MG/DL Creatinine 6.02 MG/DL Random Glucose 188 MG/DL Total Protein 5.8 GM/DL Albumin 2.5 GM/DL Calcium Level 7.7 MG/DL Alkaline Phosphatase 69 U/L Aspartate Amino Transf (AST/SGOT) 10 U/L Alanine Aminotransferase (ALT/SGPT) 29 U/L Total Bilirubin 0.6 MG/DL Direct Bilirubin 0.2 MG/DL Sodium Level 132 MEQ/L Potassium Level 3.6 MEQ/L Chloride Level 94 MEQ/L Carbon Dioxide Level 28.1 MEQ/L Anion Gap 10 MEQ/L Estimat Glomerular Filtration Rate 9 ML/MIN Indirect Bilirubin 0.4 MG/DL Stool C. difficile Toxin (PCR) NEGATIVE Stl C. difficile Toxin Epiderm 027 PRESUMPTIVE NEGATIVE Promyelocytes 3 % Culture Results Microbiology Date/Time Source Procedure Growth Status 11/15/16 10:50 Blood Peripheral Aerobic Blood Culture - Preliminary NO GROWTH IN 2 DAYS Resulted 11/15/16 10:50 Blood Peripheral Anaerobic Blood Culture - Preliminary NO GROWTH IN 2 DAYS Resulted 11/15/16 10:50 Blood Line Aerobic Blood Culture - Preliminary NO GROWTH IN 2 DAYS Resulted 11/15/16 10:50 Blood Line Anaerobic Blood Culture - Preliminary NO GROWTH IN 2 DAYS Resulted Administered Medications Medications (Trade) Dose Ordered Sig/Daniel Route PRN Reason Start Time Stop Time Status Last Admin Dose Admin Sodium Chloride (NS Flush) 2 ml UNSCH PRN IV FLUSH FLUSH AFTER USING IV ACCESS 10/24/16 01:45 11/11/16 04:41 Sodium Chloride (NS Flush) 2 ml BID IV FLUSH 10/24/16 09:00 11/16/16 20:41 Sodium Chloride (NS Flush) DAILY IVF 10/25/16 09:00 11/16/16 09:27 Heparin Sodium (Porcine) (Heparin Central Flush) DAILY IV FLUSH 10/25/16 09:00 11/16/16 09:00 Sodium Chloride (NS Flush) 2 ml UNSCH PRN IVF SEE PROTOCOL 10/24/16 13:15 11/16/16 09:28 Lactobacillus Acidophilus (Lactinex) 1 tab TID PO 10/24/16 18:00 11/16/16 17:21 Miscellaneous (Pill Splitter) 1 ea UNSCH PRN OTHER SEE LABEL COMMENTS 10/30/16 06:45 10/30/16 06:36 Sodium Chloride 1,000 ml @ 0 mls/hr Q0M PRN IV For Prime & Rinse Back 10/30/16 08:47 11/12/16 14:00 Sodium Chloride (NS Flush) 5 ml UNSCH PRN IV FLUSH WITH DIALYSIS 10/30/16 09:00 11/11/16 04:41 Heparin Sodium (Porcine) (Heparin Inj) UNSCH PRN .XX WITH DIALYSIS 10/30/16 09:00 11/14/16 12:17 Gentamicin Sulfate (Gentamicin (Dialysis) Inj) 20 mg UNSCH PRN IV WITH DIALYSIS 10/30/16 09:00 11/14/16 12:17 Ondansetron HCl (Zofran Inj) 4 mg UNSCH PRN IV WITH DIALYSIS 10/30/16 09:00 11/03/16 23:59 Acetaminophen (Tylenol) 650 mg UNSCH PRN PO for headach, pain, temp > 101F 10/30/16 09:00 11/07/16 23:21 Diphenhydramine HCl (Benadryl) 25 mg UNSCH PRN PO for hives/itching/anaphylaxis 10/30/16 09:00 11/17/16 02:42 Mupirocin (Bactroban 2% Oint) 1 applic Q12HR TOPICAL 11/01/16 21:00 11/02/16 21:00 Allopurinol (Zyloprim) 200 mg DAILY PO 11/02/16 09:00 11/16/16 09:14 Ondansetron HCl (Zofran Inj) 4 mg Q6H PRN IV PUSH nausea 11/04/16 08:45 11/11/16 20:57 Simethicone (Mylicon Chew) 80 mg PCHS CHEW 11/04/16 10:30 11/16/16 17:20 Calcium/Vitamin D (Oscal-D 250-125) 500 mg Q12HR PO 11/07/16 21:00 11/16/16 20:41 Hydromorphone HCl (Dilaudid Pf Inj) 1 mg Q3H PRN IV PAIN 6-10 11/08/16 16:45 11/09/16 06:36 Sucralfate (Carafate Liq) 1 gm ACHS PO 11/08/16 21:00 11/17/16 04:53 Pantoprazole Sodium (Protonix Inj) 40 mg Q12H IV PUSH 11/08/16 17:45 11/17/16 04:53 Diphenhydramine HCl (Benadryl) 25 mg Q4H PRN PO SEE LABEL COMMENTS 11/10/16 07:30 11/12/16 13:00 Megestrol Acetate (Megace Liq) 400 mg DAILY PO 11/11/16 09:00 11/16/16 09:15 Bumetanide (Bumex Inj) 2 mg DAILY IV PUSH 11/12/16 09:00 11/16/16 09:15 Fluconazole (Diflucan) 100 mg DAILY PO 11/11/16 13:15 11/18/16 13:14 11/16/16 09:14 Acyclovir (Zovirax) 400 mg Q12HR PO 11/11/16 13:15 11/18/16 13:14 11/16/16 20:41 Metoprolol Tartrate (Lopressor) 25 mg Q12HR PO 11/14/16 09:00 11/16/16 20:41 Diltiazem HCl (Cardizem Cd) 240 mg DAILY PO 11/14/16 09:00 11/16/16 09:14 Loperamide HCl (Imodium) 2 mg Q4H PRN PO diarrhea 11/15/16 23:30 11/15/16 23:37 Objective Remarks GENERAL APPEARANCE: Mr. Chou is an elderly male, he is tall and heavy-set, He is laying in bed, has 2 or 3 layers of blankets on him and his hands are trembling. He appears tired fatigued and pale today. HEENT: Head atraumatic, normocephalic, conjunctivae are pale. Sclerae are anicteric, EOMI, PERRLA, oral exam no pharyngeal erythema. He has a submucosal bruise along the right side of the soft palate. NECK: No palpable cervical or supraclavicular lymphadenopathy. Right IJ Vas-Cath in place. RESPIRATORY: Good air movement bilaterally over the upper and middle lung zones , decreased breath sounds over the bases. No added breath sounds. CARDIOVASCULAR: Regular rate and rhythm, S1-S2. No obvious murmurs, gallops. ABDOMEN: Obese belly, soft, nontender, nondistended, no palpable organ enlargement, specifically no hepatosplenomegaly. EXTREMITIES: Lower extremities, positive for pretibial edema. No calf tenderness. PICC line in right arm. JAZ/LYMPH EXAMINATION: No cervical lymphadenopathy, no axillary lymphadenopathy and no inguinal lymphadenopathy. UNDERWRITER: Exam without any abnormal findings specifically no motor or sensory deficits. Skin: Maculopapular rash diffusely present over the anterior chest wall and back. 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 His disease is negative for the BCR/ABL fusion gene. 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 S/p cycle 1 Hyper-CVAD + Rituxan and IT cytarabine. Plan B-cell ALL Ph chromosome negative, CD 20 positive. S/p C1 Hyper-CVAD + R. Complicated by TLS and ARF requiring HD for this. 1. Renal insufficiency: Remains on hemodialysis, hemodialysis will likely continue in the outpatient setting. His dialysis catheter will likely need to be converted to a tunneled catheter before he is discharged. 2. Cytopenias are recovering well, his platelet count is now over 100, absolute neutral count is within normal limits and his hemoglobin is approaching 10 g/dL. 3. Low grade fevers + rash: on PO Acyclovir and Diflucan prophylaxis. given vancomycin 1.25 g IV 1 on 11/15. BC pending. ID following and recommends no further abx at this time. As of 11/17/2016 the rash is improved. 4. AFib with RVR: on Lopressor + Cardizem for rate control. I will consider adding on anticoagulation should he remain in A. fib. 5. Dyspepsia: on scheduled Protonix as well as Carafate. still gets occasional dyspepsia 6. Dysphagia/thrush: resolved. stop Nystatin 7. +dark stool: stool for occult blood was positive. Likely mucosal bleeding secondary to thrombocytopenia, this would not be a good time for an invasive workup with colonoscopy/EGD. monitor CBC for now. 8. Physical therapy following and recommends home with home health when appropriate. Disposition: Continue ongoing care. I'm hopeful for discharge home or to rehabilitation early next week. Renal function will be monitored. Patient would prefer to keep his dialysis catheter in place, I however did explain that should he continue to have fevers the dialysis catheter will be removed as will the PICC line. Repeat blood cultures pending; one peripheral draw and 1 PICC line draw. Problem Qualifiers (1) Acute lymphocytic leukemia: Qualified Codes: C91.00 - Acute lymphoblastic leukemia not having achieved remission Sukhwinder Rice MD Nov 17, 2016 11:26
--- NOTE | 2016-11-17 13:28 | HHI.PR ---
Subjective Remarks Follow-up visit ALL, tumor lysis syndrome, renal failure. She was seen and examined today. Reports he's doing well. He is just being bothered by the rash he has. States he is itchy all the time. Otherwise, denies pain and discomfort. Denies SOB/ dyspnea. Denies chest pain, palpitations, headaches, dizziness. Denies fevers, chills, n/v/d. Objective Vitals Vital Signs Date Time Temp Pulse Resp B/P (MAP) Pulse Ox O2 Delivery O2 Flow Rate FiO2 11/17/16 13:15 104 131/77 (95) 95 11/17/16 08:00 98.5 80 20 130/59 (82) 96 11/17/16 07:20 77 11/17/16 04:40 98.7 82 18 150/72 (98) 97 11/17/16 04:03 80 11/17/16 00:35 99.4 85 19 112/56 (74) 96 11/17/16 00:09 76 11/16/16 20:30 97.7 94 18 157/70 (99) 97 11/16/16 20:04 93 11/16/16 19:41 99 11/16/16 16:00 97.2 92 14 121/61 (81) 97 I/O 11/16/16 11/16/16 11/16/16 11/17/16 11/17/16 11/17/16 07:00 15:00 23:00 07:00 15:00 23:00 Intake Total 240 ml 472 ml 1000 ml Output Total 300 ml 500 ml 350 ml 3000 ml Balance -60 ml -28 ml 650 ml -3000 ml Intake Oral 240 ml 472 ml 1000 ml Output Urine Total 300 ml 500 ml 350 ml Hemodialysis 3000 ml # Bowel Movements 1 0 1 Result Diagram: 11/17/16 0500 11/16/16 1130 Imaging Last Impressions Gall Bladder Ultrasound 11/09/16 0000 Signed Impressions: Service Date/Time: Wednesday, November 09, 2016 12:22 - CONCLUSION: 1. Increased echogenicity throughout the liver suggestive of fatty infiltration. The liver is enlarged at 18.5 cm. 2. There are gallstones in the gallbladder. No biliary tract obstruction. Prasad Cade MD Abdomen/Pelvis CT 11/08/16 0000 Signed Impressions: Service Date/Time: Tuesday, November 08, 2016 15:00 - CONCLUSION: #1. Small right-sided pleural effusion. #2. Hazy increased density identified adjacent to the head of the pancreas as compared to the body and tail which may represent early changes of acute pancreatitis. Recommend correlation with patient's laboratory values. #3. Small anterior hernia with preperitoneal fat. This is seen approximately 2 cm superior to the umbilicus. Darcie Evans MD Chest X-Ray 11/01/16 0000 Signed Impressions: Service Date/Time: Tuesday, November 01, 2016 14:05 - CONCLUSION: Bibasilar densities likely atelectasis. Neal Castro MD Catheter Placement X-Ray 10/30/16 0826 Signed Impressions: Service Date/Time: October 11:04 - CONCLUSION: Uncomplicated Vas-Cath placement as above. Matt Lassiter MD Renal Ultrasound 10/30/16 0000 Signed Impressions: Service Date/Time: October 08:13 - CONCLUSION: Unremarkable exam with no evidence of hydronephrosis. Wander Hodges MD Lumbar Puncture Fluoroscopy 10/27/16 0000 Signed Impressions: Service Date/Time: Thursday, October 27, 2016 12:19 - CONCLUSION: Uncomplicated fluoroscopically guided lumbar puncture with chemotherapy injection. Matt Lassiter MD PICC Line Insertion 10/24/16 0000 Signed Impressions: Service Date/Time: Monday, October 24, 2016 12:01 - CONCLUSION: 1. Uncomplicated central venous Power PICC line placement. 2. The PICC line can be used immediately. Serafin Saba MD Bone Biopsy CT 10/24/16 0000 Signed Impressions: Service Date/Time: Monday, October 24, 2016 16:09 - CONCLUSION: 1. Uncomplicated CT guided bone marrow aspirate. 2. Uncomplicated CT guided bone marrow biopsy. Balwinder Swenson MD Objective Remarks GENERAL: This is a well-nourished, well-developed patient, in no apparent distress. SKIN: Warm and dry. The mother was buckled papular rash throughout trunk and back area, bilateral side of the abdomen. HEENT: Normocephalic. Pupils equal round and reactive. Nose without bleeding. Airway patent. NECK: Trachea midline. Supple. CARDIOVASCULAR: Regular rate and rhythm without murmurs, gallops, or rubs. RESPIRATORY: Diminished bases. No wheezes, rales, or rhonchi. GASTROINTESTINAL: Abdomen soft, non-tender, nondistended. Bowel Sounds normoactive x4. MUSCULOSKELETAL: Extremities without clubbing, cyanosis, or edema. NEUROLOGICAL: Awake and alert. Oriented to time, place, person. No focal neuro deficit. Moves all extremities. Normal speech. 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 having achieved remission Status: Acute (4) Hypertension ICD Code: I10 - Essential (primary) hypertension Status: Chronic (5) Acute renal failure ICD Code: N17.9 - Acute kidney failure, unspecified (6) Tumor lysis syndrome ICD Code: E88.3 - Tumor lysis syndrome (7) Atrial fibrillation ICD Code: I48.91 - Unspecified atrial fibrillation Status: Acute Assessment and Plan Patient is a 71-year-old male with 1. ALL: Appreciate oncology recommendations. Continue chemotherapy (hyperCVAD + Rituxan & Cytarabine). 2. Pneumonia: Off antibiotics per infectious disease. DuoNeb as needed. Stable on room air. 3. Hypertension: Continue amlodipine. Vasotec IV as needed. Blood pressure control improved. 4. DVT prophylaxis: Jurgen, KRISTEN sauer. 5. Tumor lysis syndrome: S/P Rasburicase. Appreciate oncology, nephrology management. 6. Atrial fibrillation with RVR: Appreciate cardiology recommendations.2-D echocardiogram shows ejection fraction 55-60%. Continue oral Cardizem, metoprolol. 7. Acute renal failure: Dialysis per nephrology (M-W-). Adequate UO. HD in am. Avoid nephrotoxins. - Right IJ Vas-Cath removed today. As per nephro, patient will need a new Vas-Cath or permacath - 3 L fluid removal today 8. Poor oral intake: Likely secondary to chemotherapy. Continue Megace. Complaints of decreased appetite. Encouraged. 9. Rash: Has rash on upper back and chest that started 2 days ago. Rash is papular and there is evidence of excoriation. Patient denies chest pain, dyspnea , wheeze. Lungs are clear on exam. - Only new medication is metoprolol, started 11/14/16. Monitor rash. - Was on multiple antibiotics previously broad spectrum coverage which may have caused the reaction. As per ID they will not start any antibiotic for now. - Benadryl available PRN - Hydrocortisone cream BID. 10. Diarrhea: Was given one time dose of Imodium. Cdiff checked on 11/06/16 which was negative. - No complaints Discussed with patient, nursing, Dr. Dumont Discharge Planning Plan for discharge when cleared by nephrology and oncology Problem Qualifiers (1) Pneumonia: (2) Acute lymphocytic leukemia: Qualified Codes: C91.00 - Acute lymphoblastic leukemia not having achieved remission (3) Atrial fibrillation: Reymundo Aguilar Nov 17, 2016 13:28
[2016-11-17] MEDS: HYDROCORTISONE 1% OINT 30 GM TUBE TOPICAL SCH ×2 (13:30→21:51)
[2016-11-17] MEDS: MUPIROCIN 2% OINT 22 GM TUBE TOPICAL SCH ×2 (15:01→21:00)
[2016-11-17] MEDS: BUMETANIDE INJ 1 MG/4 ML VIAL IV PUSH SCH (15:03)
[2016-11-17] MEDS: ALLOPURINOL 100 MG TAB PO SCH (15:04)
[2016-11-17] MEDS: FLUCONAZOLE 100 MG TAB PO SCH (15:04)
[2016-11-17] MEDS: ACYCLOVIR 200 MG CAP PO SCH ×2 (15:05→21:50)
[2016-11-17] MEDS: DILTIAZEM-CD 240 MG CAP ER PO SCH (15:05)
[2016-11-17] MEDS: SODIUM CHLORIDE 0.9% FLUSH 10 ML FLUSH IVF SCH (15:05)
[2016-11-17] MEDS: SODIUM CHLORIDE 0.9% FLUSH 10 ML FLUSH IV FLUSH SCH ×2 (15:11→21:52)
[2016-11-18] VITALS (12 sets, daily range): BP systolic 113–152; BP diastolic 58–87; PULSE 58–97; RESP 18–20; TEMP 97.3–99.4; O2SAT 94–97
[2016-11-18] MEDS: PANTOPRAZOLE SODIUM 40 MG VIAL IV PUSH SCH ×2 (05:55→17:54)
[2016-11-18] MEDS: SODIUM CHLORIDE 0.9% FLUSH 10 ML FLUSH IV FLUSH PRN ×2 (06:02)
[2016-11-18] MEDS: SUCRALFATE 1 GM/10 ML CUP PO SCH ×4 (06:05→21:50)
[2016-11-18 06:26] LABS: HEMATOCRIT 27.1 % (39.0-51.0); MEAN CELL VOLUME 90.9 FL (80.0-100.0); MEAN CORPUSCULAR HGB CONC 34.1 % (32.0-36.0); PLATELET COUNT 156 TH/MM3 (150-450); RED BLOOD COUNT 2.98 MIL/MM3 (4.50-5.90); RED CELL DISTRIBUTION WIDTH 15.4 % (11.6-17.2); WHITE BLOOD COUNT 4.2 TH/MM3 (4.0-11.0)
[2016-11-18 06:28] LABS: HEMO FLAGS AUTO DIFF
[2016-11-18 07:13] LABS: BICARBONATE 29.8 MEQ/L (21.0-32.0); POTASSIUM 4.1 MEQ/L (3.5-5.1)
[2016-11-18] MEDS: MEGESTROL ACETATE SUSP 400 MG/10 ML CUP PO SCH (08:03)
[2016-11-18] MEDS: ALLOPURINOL 100 MG TAB PO SCH (08:04)
[2016-11-18] MEDS: LACTOBACILLUS ACIDOPHILUS TAB PO SCH ×3 (08:04→21:50)
[2016-11-18] MEDS: BUMETANIDE INJ 1 MG/4 ML VIAL IV PUSH SCH (08:04)
[2016-11-18] MEDS: DILTIAZEM-CD 240 MG CAP ER PO SCH (08:04)
[2016-11-18] MEDS: METOPROLOL TARTRATE 25 MG TAB PO SCH ×2 (08:04→21:50)
[2016-11-18] MEDS: FLUCONAZOLE 100 MG TAB PO SCH (08:04)
[2016-11-18] MEDS: HYDROCORTISONE 1% OINT 30 GM TUBE TOPICAL SCH ×2 (08:04→21:50)
[2016-11-18] MEDS: ACYCLOVIR 200 MG CAP PO SCH (08:04)
[2016-11-18] MEDS: CALCIUM/VITAMIN D 250 MG/125 U TAB PO SCH ×2 (08:05→21:50)
[2016-11-18] MEDS: SIMETHICONE 80 MG CHEWABLE TAB CHEW SCH ×4 (08:05→21:50)
--- NOTE | 2016-11-18 08:12 | PD.ONC.PN ---
Subjective Subjective Remarks Patient seen and examined, vital signs, labs and medications reviewed. Right-sided IJ dialysis catheter was removed yesterday because was not functioning well and also because the patient had been having low-grade temperatures. He denies acute complaints, he reports trying to eat a little bit more yesterday , he has been up and out of bed, he reports his bowel movements are close to normal. And he denies overt bleeding. His major complaint is that of an itchy rash involving his back, the rash previously involved the front of his chest as well and the area in the front is resolved mostly. Objective Data Date Time Temp Pulse Resp B/P (MAP) Pulse Ox O2 Delivery O2 Flow Rate FiO2 11/18/16 04:40 98.4 67 19 124/62 (82) 94 11/18/16 04:06 84 11/18/16 00:25 99.4 96 19 113/59 (77) 96 11/18/16 00:02 82 11/17/16 20:30 97.9 97 20 128/60 (82) 98 11/17/16 20:12 93 11/17/16 17:05 82 11/17/16 16:00 98.5 88 20 130/68 (88) 97 11/17/16 14:41 88 11/17/16 13:15 104 131/77 (95) 95 11/18/16 11/18/16 11/18/16 07:00 15:00 23:00 Intake Total 500 ml Output Total 425 ml Balance 75 ml Result Diagram: 11/18/16 0600 11/18/16 0600 Laboratory Results Laboratory Tests Test 11/18/16 06:00 White Blood Count 4.2 TH/MM3 Red Blood Count 2.98 MIL/MM3 Hemoglobin 9.2 GM/DL Hematocrit 27.1 % Mean Corpuscular Volume 90.9 FL Mean Corpuscular Hemoglobin 31.0 PG Mean Corpuscular Hemoglobin Concent 34.1 % Red Cell Distribution Width 15.4 % Platelet Count 156 TH/MM3 Mean Platelet Volume 7.4 FL CBC Comment AUTO DIFF Blood Urea Nitrogen 49 MG/DL Creatinine 5.58 MG/DL Random Glucose 95 MG/DL Albumin 2.5 GM/DL Calcium Level 7.4 MG/DL Phosphorus Level 2.7 MG/DL Sodium Level 135 MEQ/L Potassium Level 4.1 MEQ/L Chloride Level 97 MEQ/L Carbon Dioxide Level 29.8 MEQ/L Anion Gap 8 MEQ/L Estimat Glomerular Filtration Rate 10 ML/MIN Culture Results Microbiology Date/Time Source Procedure Growth Status 11/15/16 10:50 Blood Peripheral Aerobic Blood Culture - Preliminary NO GROWTH IN 2 DAYS Resulted 11/15/16 10:50 Blood Peripheral Anaerobic Blood Culture - Preliminary NO GROWTH IN 2 DAYS Resulted 11/15/16 10:50 Blood Line Aerobic Blood Culture - Preliminary NO GROWTH IN 2 DAYS Resulted 11/15/16 10:50 Blood Line Anaerobic Blood Culture - Preliminary NO GROWTH IN 2 DAYS Resulted Administered Medications Medications (Trade) Dose Ordered Sig/Daniel Route PRN Reason Start Time Stop Time Status Last Admin Dose Admin Sodium Chloride (NS Flush) 2 ml UNSCH PRN IV FLUSH FLUSH AFTER USING IV ACCESS 10/24/16 01:45 11/18/16 06:02 Sodium Chloride (NS Flush) 2 ml BID IV FLUSH 10/24/16 09:00 11/17/16 21:52 Sodium Chloride (NS Flush) DAILY IVF 10/25/16 09:00 11/17/16 15:05 Heparin Sodium (Porcine) (Heparin Central Flush) DAILY IV FLUSH 10/25/16 09:00 11/18/16 06:03 Sodium Chloride (NS Flush) 2 ml UNSCH PRN IVF SEE PROTOCOL 10/24/16 13:15 11/16/16 09:28 Lactobacillus Acidophilus (Lactinex) 1 tab TID PO 10/24/16 18:00 11/18/16 08:04 Miscellaneous (Pill Splitter) 1 ea UNSCH PRN OTHER SEE LABEL COMMENTS 10/30/16 06:45 10/30/16 06:36 Sodium Chloride 1,000 ml @ 0 mls/hr Q0M PRN IV For Prime & Rinse Back 10/30/16 08:47 11/12/16 14:00 Sodium Chloride (NS Flush) 5 ml UNSCH PRN IV FLUSH WITH DIALYSIS 10/30/16 09:00 11/18/16 06:02 Heparin Sodium (Porcine) (Heparin Inj) UNSCH PRN .XX WITH DIALYSIS 10/30/16 09:00 11/14/16 12:17 Gentamicin Sulfate (Gentamicin (Dialysis) Inj) 20 mg UNSCH PRN IV WITH DIALYSIS 10/30/16 09:00 11/14/16 12:17 Ondansetron HCl (Zofran Inj) 4 mg UNSCH PRN IV WITH DIALYSIS 10/30/16 09:00 11/03/16 23:59 Acetaminophen (Tylenol) 650 mg UNSCH PRN PO for headach, pain, temp > 101F 10/30/16 09:00 11/07/16 23:21 Diphenhydramine HCl (Benadryl) 25 mg UNSCH PRN PO for hives/itching/anaphylaxis 10/30/16 09:00 11/17/16 02:42 Mupirocin (Bactroban 2% Oint) 1 applic Q12HR TOPICAL 11/01/16 21:00 11/02/16 21:00 Allopurinol (Zyloprim) 200 mg DAILY PO 11/02/16 09:00 11/18/16 08:04 Ondansetron HCl (Zofran Inj) 4 mg Q6H PRN IV PUSH nausea 11/04/16 08:45 11/11/16 20:57 Simethicone (Mylicon Chew) 80 mg PCHS CHEW 11/04/16 10:30 11/17/16 21:51 Calcium/Vitamin D (Oscal-D 250-125) 500 mg Q12HR PO 11/07/16 21:00 11/17/16 21:50 Hydromorphone HCl (Dilaudid Pf Inj) 1 mg Q3H PRN IV PAIN 6-10 11/08/16 16:45 11/09/16 06:36 Sucralfate (Carafate Liq) 1 gm ACHS PO 11/08/16 21:00 11/18/16 06:05 Pantoprazole Sodium (Protonix Inj) 40 mg Q12H IV PUSH 11/08/16 17:45 11/18/16 05:55 Diphenhydramine HCl (Benadryl) 25 mg Q4H PRN PO SEE LABEL COMMENTS 11/10/16 07:30 11/12/16 13:00 Megestrol Acetate (Megace Liq) 400 mg DAILY PO 11/11/16 09:00 11/18/16 08:03 Bumetanide (Bumex Inj) 2 mg DAILY IV PUSH 11/12/16 09:00 11/18/16 08:04 Fluconazole (Diflucan) 100 mg DAILY PO 11/11/16 13:15 9/5/17 13:14 11/18/16 08:04 Acyclovir (Zovirax) 400 mg Q12HR PO 11/11/16 13:15 11/18/16 13:14 11/17/16 21:50 Metoprolol Tartrate (Lopressor) 25 mg Q12HR PO 11/14/16 09:00 11/17/16 21:51 Diltiazem HCl (Cardizem Cd) 240 mg DAILY PO 11/14/16 09:00 11/18/16 08:04 Loperamide HCl (Imodium) 2 mg Q4H PRN PO diarrhea 11/15/16 23:30 11/15/16 23:37 Hydrocortisone (Nutracort 1% Oint) 1 applic BID TOPICAL 11/17/16 13:30 11/27/16 13:29 11/18/16 08:04 Objective Remarks GENERAL APPEARANCE: Mr. Chou is an elderly male, he is tall and heavy-set, He sitting up, appears to be no acute distress. Does not appear as ill or fatigued today. HEENT: Head atraumatic, normocephalic, conjunctivae are pale. Sclerae are anicteric, EOMI, PERRLA, oral exam no pharyngeal erythema. He has a submucosal bruise along the right side of the soft palate. NECK: No palpable cervical or supraclavicular lymphadenopathy. Right IJ Vas-Cath in place. RESPIRATORY: Good air movement bilaterally over the upper and middle lung zones , decreased breath sounds over the bases. No added breath sounds. CARDIOVASCULAR: Regular rate and rhythm, S1-S2. No obvious murmurs, gallops. ABDOMEN: Obese belly, soft, nontender, nondistended, no palpable organ enlargement, specifically no hepatosplenomegaly. EXTREMITIES: Lower extremities, positive for pretibial edema. No calf tenderness. PICC line in right arm. JAZ/LYMPH EXAMINATION: No cervical lymphadenopathy, no axillary lymphadenopathy and no inguinal lymphadenopathy. DRIVER STARTING GATE: Exam without any abnormal findings specifically no motor or sensory deficits. Skin: Maculopapular rash diffusely present over the posterior chest wall and flank. The rash involving the anterior chest is adult education manager and less pronounced today. 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 His disease is negative for the BCR/ABL fusion gene. 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 S/p cycle 1 Hyper-CVAD + Rituxan and IT cytarabine. Plan B-cell ALL Ph chromosome negative, CD 20 positive. S/p C1 Hyper-CVAD + R. Complicated by TLS and ARF requiring HD for this. 1. Renal insufficiency: Remains on hemodialysis, hemodialysis will likely continue in the outpatient setting, we remain cautiously optimistic that his renal function will recover and that hemodialysis will not be a long-term requirement even though it is clearly required at the time being. Right IJ vast catheter removed. 2. Cytopenias are recovering well, his platelet count is now over 100, absolute neutral count is within normal limits and his hemoglobin is approaching 10 g/dL. 3. Low grade fevers + rash: on PO Acyclovir and Diflucan prophylaxis. given vancomycin 1.25 g IV 1 on 11/15. BC pending. ID following and recommends no further abx at this time. As of 11/18/2016 the rash is improved. 4. AFib with RVR: He is rate controlled and in regular rhythm at this time. A. fib may have been a transient issue when he was acutely ill, he is not on anticoagulation and at this point I do not think anticoagulation is indicated. 5. Dyspepsia: on scheduled Protonix as well as Carafate. still gets occasional dyspepsia. Dyspepsia is no longer a complaint. 6. Dysphagia/thrush: Resolved with nystatin. Nystatin now discontinued. 7. +dark stool: stool for occult blood was positive. Likely mucosal bleeding secondary to thrombocytopenia, this would not be a good time for an invasive workup with colonoscopy/EGD. monitor CBC for now. 8. Physical therapy following and recommends home with home health when appropriate. Disposition: He is ready for discharge from a hematologic standpoint. He will require readmission in the upcoming 2 weeks for cycle #2/arm B Hyper-CVAD. He may benefit from discharged to a rehabilitation however he clearly prefers going home. He does live at home alone but does have neighbors who are willing to help in family members who live close by to help with meals and doctors appointments and other activities of daily living. It appears hemodialysis will be required as an outpatient even though he continues to be designated as acute renal failure. Per our highway construction inspector acute renal failure now meets insurance requirements for coverage in the outpatient setting. He will require a tunneled catheter for dialysis prior discharge. Problem Qualifiers (1) Acute lymphocytic leukemia: Qualified Codes: C91.00 - Acute lymphoblastic leukemia not having achieved remission Sukhwinder Rice MD Nov 18, 2016 08:12
[2016-11-18] MEDS: SODIUM CHLORIDE 0.9% FLUSH 10 ML FLUSH IV FLUSH SCH ×2 (08:22→21:49)
[2016-11-18 08:50] LABS: BANDS 22 % (0-6); METAMYELOCYTES 2 % (0-1); MYELOCYTES 4 % (0-0); NEUTROPHIL # MANUAL DIFF 3.8 TH/MM3 (1.8-7.7); POLYS (SEG NEUTROPHILS) 63 % (16-70); WBC DIFF SAMPLE 100
[2016-11-18 08:51] LABS: OVALOCYTES 1+ (NORMAL); PLATELET ESTIMATE SMEAR NORMAL (NORMAL); PLATELET MORPHOLOGY NORMAL (NORMAL); SCAN/DIFF FINAL DIFF MANUAL; TOXIC GRANULATION 1+ (NORMAL)
[2016-11-18] MEDS: SODIUM CHLORIDE 0.9% FLUSH 10 ML FLUSH IVF SCH (09:00)
[2016-11-18] MEDS: MUPIROCIN 2% OINT 22 GM TUBE TOPICAL SCH ×2 (09:00→21:00)
--- NOTE | 2016-11-18 09:30 | HHI.NPPN ---
Subjective General Problems: Edema, Hypertension Renal Failure: Acute Interval History had dialysis yesterday, needs PermCath for continued dialysis support. Discussed with Dr. Rice. Apparently he will need continued chemotherapy about once a month. He is non oliguric, but there is no evidence of renal recovery so far. Review of Systems General Constitutional: Fatigue Respiratory Lungs: SOB Cardiovascular Cardiac: Edema, YOUNGER Gastrointestinal Gastrointestinal: Nausea & Vomiting GI Remarks loss of appetite Objective Data Data Vital Signs Date Time Temp Pulse Resp B/P (MAP) Pulse Ox O2 Delivery O2 Flow Rate FiO2 11/18/16 04:40 98.4 67 19 124/62 (82) 94 11/18/16 04:06 84 11/18/16 00:25 99.4 96 19 113/59 (77) 96 11/18/16 00:02 82 11/17/16 20:30 97.9 97 20 128/60 (82) 98 11/17/16 20:12 93 11/17/16 17:05 82 11/17/16 16:00 98.5 88 20 130/68 (88) 97 11/17/16 14:41 88 11/17/16 13:15 104 131/77 (95) 95 -: 11/18/16 0600 11/18/16 0600 Tubes & Lines: Vas-Cath Physical Exam General Appearance: Well Developed, Well Nourished, No Acute Distress, Comfortable Eyes Eye Exam: Pupils Equal Throat Throat Exam: Oral Mucosa [place] & Moist Neck Neck Exam: Neck Supple Pulmonary Resp Exam: Clear Bilaterally, Breath Sounds Equal, No Distress Cardiology CV Exam: Regular, Normal Sinus Rhythm, Good Perfusion Gastrointestinal/Abdomen GI Exam: Soft, Non-Tender, Bowel Sounds Present, Positive Bowel Movement Musculoskeletal MS Exam: Joints Intact, Normal Gait, Normal Tone Integumentary Skin Exam: Clear, Warm, Dry, Intact Extremeties Extremities Exam: Moderate Edema, Pitting Edema Neurologic Neuro Exam: Alert, Awake, Oriented Psychiatric Psych Exam: Appropriate Responses Assessment/Plan Discussed Condition With: Patient Assessment Summary: FAIZA/Acute Renal Failure, Hypertension Electrolyte Assessment: Hypocalcemia Problem List: (1) Acute kidney injury ICD Codes: N17.9 - Acute kidney failure, unspecified Status: Acute Plan: 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 Non oliguric, however no renal recovery yet. Consult IR for PermCath placement. Unable to say he has reached ESRD. court manager to see if he can be placed in outpatient dialysis unit with a diagnosis of acute kidney injury. Fredis Petersen will be the option. 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 (3) Hypocalcemia ICD Codes: E83.51 - Hypocalcemia Status: Acute Plan: follow serum calcium level Avoid IV calcium administration. 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 Most recent phosphorus is 2.7. Problem Qualifiers (1) Acute lymphocytic leukemia: Qualified Codes: C91.00 - Acute lymphoblastic leukemia not having achieved remission Clay Galicia MD Nov 18, 2016 09:30
--- NOTE | 2016-11-18 10:37 | HHI.IDPN ---
Note Infectious Disease Note ID COVERAGE Chart reviewed Patient with acute leukemia, status post induction chemotherapy Had problem with fever and neutropenia, and that has improved, and his counts are now normal I was asked to evaluate patient who has been off antibiotics since November 14, and having some low-grade fevers Notes reviewed C/O itching in his back temps normal Had HD yesterday Denies any respiratory complaint. He is swallowing without any problem. No nausea or vomiting or diarrhea No abdominal pain No urinary complaints States he noted the rash about 2 days ago, and it was mildly itchy PAST HISTORY 1. Rheumatic fever 2. Removal of vocal polyps in his 20s. 3. Appendectomy ALLERGIES No drug allergies. MEDICATIONS Acyclovir Diflucan OBJECTIVE: Vital Signs Date Time Temp Pulse Resp B/P (MAP) Pulse Ox O2 Delivery O2 Flow Rate FiO2 11/18/16 04:40 98.4 67 19 124/62 (82) 94 11/18/16 04:06 84 11/18/16 00:25 99.4 96 19 113/59 (77) 96 11/18/16 00:02 82 11/17/16 20:30 97.9 97 20 128/60 (82) 98 11/17/16 20:12 93 11/17/16 17:05 82 11/17/16 16:00 98.5 88 20 130/68 (88) 97 11/17/16 14:41 88 11/17/16 13:15 104 131/77 (95) 95 Laboratory Tests Test 11/16/16 11:30 11/17/16 05:00 11/18/16 06:00 White Blood Count 4.1 TH/MM3 4.6 TH/MM3 4.2 TH/MM3 Red Blood Count 2.94 MIL/MM3 3.02 MIL/MM3 2.98 MIL/MM3 Hemoglobin 9.5 GM/DL 9.7 GM/DL 9.2 GM/DL Hematocrit 26.8 % 27.7 % 27.1 % Mean Corpuscular Volume 90.9 FL 91.7 FL 90.9 FL Mean Corpuscular Hemoglobin 32.1 PG 31.9 PG 31.0 PG Mean Corpuscular Hemoglobin Concent 35.4 % 34.8 % 34.1 % Red Cell Distribution Width 15.4 % 15.4 % 15.4 % Platelet Count 85 TH/MM3 109 TH/MM3 156 TH/MM3 Mean Platelet Volume 8.7 FL 7.9 FL 7.4 FL Neutrophils (%) (Auto) 89.9 % 84.3 % Lymphocytes (%) (Auto) 1.5 % 1.9 % Monocytes (%) (Auto) 8.5 % 13.6 % Eosinophils (%) (Auto) 0.0 % 0.1 % Basophils (%) (Auto) 0.1 % 0.1 % Neutrophils # (Auto) 3.7 TH/MM3 3.9 TH/MM3 Lymphocytes # (Auto) 0.1 TH/MM3 0.1 TH/MM3 Monocytes # (Auto) 0.3 TH/MM3 0.6 TH/MM3 Eosinophils # (Auto) 0.0 TH/MM3 0.0 TH/MM3 Basophils # (Auto) 0.0 TH/MM3 0.0 TH/MM3 CBC Comment AUTO DIFF AUTO DIFF AUTO DIFF Differential Total Cells Counted 100 100 100 Neutrophils % (Manual) 72 % 71 % 63 % Band Neutrophils % 14 % 14 % 22 % Monocytes % 5 % 3 % 4 % Neutrophils # (Manual) 3.9 TH/MM3 4.5 TH/MM3 3.8 TH/MM3 Metamyelocytes 5 % 4 % 2 % Myelocytes 4 % 5 % 4 % Nucleated Red Blood Cells 2 /100 WBC Differential Comment FINAL DIFF MANUAL FINAL DIFF MANUAL FINAL DIFF MANUAL Toxic Granulation 1+ 1+ 1+ Platelet Estimate LOW LOW NORMAL Platelet Morphology Comment NORMAL NORMAL NORMAL Red Cell Morphology Comment NORMAL NORMAL Promyelocytes 3 % Lymphocytes % 5 % Ovalocytes 1+ Laboratory Tests Test 11/16/16 11:30 11/18/16 06:00 Blood Urea Nitrogen 48 MG/DL 49 MG/DL Creatinine 6.02 MG/DL 5.58 MG/DL Random Glucose 188 MG/DL 95 MG/DL Total Protein 5.8 GM/DL Albumin 2.5 GM/DL 2.5 GM/DL Calcium Level 7.7 MG/DL 7.4 MG/DL Alkaline Phosphatase 69 U/L Aspartate Amino Transf (AST/SGOT) 10 U/L Alanine Aminotransferase (ALT/SGPT) 29 U/L Total Bilirubin 0.6 MG/DL Direct Bilirubin 0.2 MG/DL Sodium Level 132 MEQ/L 135 MEQ/L Potassium Level 3.6 MEQ/L 4.1 MEQ/L Chloride Level 94 MEQ/L 97 MEQ/L Carbon Dioxide Level 28.1 MEQ/L 29.8 MEQ/L Anion Gap 10 MEQ/L 8 MEQ/L Estimat Glomerular Filtration Rate 9 ML/MIN 10 ML/MIN Indirect Bilirubin 0.4 MG/DL Phosphorus Level 2.7 MG/DL Microbiology Date/Time Source Procedure Growth Status 11/15/16 10:50 Blood Peripheral Aerobic Blood Culture - Preliminary NO GROWTH IN 2 DAYS Resulted 11/15/16 10:50 Blood Peripheral Anaerobic Blood Culture - Preliminary NO GROWTH IN 2 DAYS Resulted 11/15/16 10:50 Blood Line Aerobic Blood Culture - Preliminary NO GROWTH IN 2 DAYS Resulted 11/15/16 10:50 Blood Line Anaerobic Blood Culture - Preliminary NO GROWTH IN 2 DAYS Resulted Laboratory Tests Test 11/14/16 05:49 11/15/16 04:07 White Blood Count 5.9 TH/MM3 5.0 TH/MM3 Red Blood Count 3.09 MIL/MM3 2.84 MIL/MM3 Hemoglobin 9.9 GM/DL 8.8 GM/DL Hematocrit 28.2 % 25.9 % Mean Corpuscular Volume 91.2 FL 91.4 FL Mean Corpuscular Hemoglobin 31.9 PG 31.2 PG Mean Corpuscular Hemoglobin Concent 34.9 % 34.1 % Red Cell Distribution Width 15.6 % 15.1 % Platelet Count 37 TH/MM3 53 TH/MM3 Mean Platelet Volume 8.3 FL 8.2 FL CBC Comment AUTO DIFF AUTO DIFF Differential Total Cells Counted 100 100 Neutrophils % (Manual) 67 % 81 % Band Neutrophils % 28 % 10 % Lymphocytes % 2 % 1 % Monocytes % 3 % 2 % Neutrophils # (Manual) 5.6 TH/MM3 4.9 TH/MM3 Differential Comment FINAL DIFF MANUAL FINAL DIFF MANUAL Toxic Granulation 3+ 1+ Dohle Bodies PRESENT Platelet Estimate LOW LOW Platelet Morphology Comment NORMAL NORMAL Neutrophils (%) (Auto) 92.0 % Lymphocytes (%) (Auto) 1.6 % Monocytes (%) (Auto) 6.3 % Eosinophils (%) (Auto) 0.0 % Basophils (%) (Auto) 0.1 % Neutrophils # (Auto) 4.6 TH/MM3 Lymphocytes # (Auto) 0.1 TH/MM3 Monocytes # (Auto) 0.3 TH/MM3 Eosinophils # (Auto) 0.0 TH/MM3 Basophils # (Auto) 0.0 TH/MM3 Metamyelocytes 2 % Myelocytes 2 % Promyelocytes 2 % Red Cell Morphology Comment NORMAL Laboratory Tests Test 11/14/16 05:49 11/15/16 04:07 Blood Urea Nitrogen 47 MG/DL 34 MG/DL Creatinine 5.65 MG/DL 4.66 MG/DL Random Glucose 115 MG/DL 100 MG/DL Total Protein 6.0 GM/DL Albumin 2.6 GM/DL Calcium Level 7.9 MG/DL 7.5 MG/DL Alkaline Phosphatase 64 U/L Aspartate Amino Transf (AST/SGOT) 12 U/L Alanine Aminotransferase (ALT/SGPT) 26 U/L Lactate Dehydrogenase 293 U/L Total Bilirubin 0.8 MG/DL Sodium Level 133 MEQ/L 137 MEQ/L Potassium Level 4.0 MEQ/L 3.8 MEQ/L Chloride Level 95 MEQ/L 98 MEQ/L Carbon Dioxide Level 28.0 MEQ/L 29.8 MEQ/L Anion Gap 10 MEQ/L 9 MEQ/L Estimat Glomerular Filtration Rate 10 ML/MIN 13 ML/MIN Phosphorus Level 1.4 MG/DL 1.9 MG/DL Magnesium Level 1.6 MG/DL IMAGING: Last Impressions Gall Bladder Ultrasound 11/09/16 0000 Signed Impressions: Service Date/Time: Wednesday, November 09, 2016 12:22 - CONCLUSION: 1. Increased echogenicity throughout the liver suggestive of fatty infiltration. The liver is enlarged at 18.5 cm. 2. There are gallstones in the gallbladder. No biliary tract obstruction. Prasad Cade MD Abdomen/Pelvis CT 11/08/16 0000 Signed Impressions: Service Date/Time: Tuesday, November 08, 2016 15:00 - CONCLUSION: #1. Small right-sided pleural effusion. #2. Hazy increased density identified adjacent to the head of the pancreas as compared to the body and tail which may represent early changes of acute pancreatitis. Recommend correlation with patient's laboratory values. #3. Small anterior hernia with preperitoneal fat. This is seen approximately 2 cm superior to the umbilicus. Darcie Evans MD Chest X-Ray 11/01/16 0000 Signed Impressions: Service Date/Time: Tuesday, November 01, 2016 14:05 - CONCLUSION: Bibasilar densities likely atelectasis. Neal Castro MD Catheter Placement X-Ray 10/30/16 0826 Signed Impressions: Service Date/Time: October 11:04 - CONCLUSION: Uncomplicated Vas-Cath placement as above. Matt Lassiter MD Renal Ultrasound 10/30/16 0000 Signed Impressions: Service Date/Time: October 08:13 - CONCLUSION: Unremarkable exam with no evidence of hydronephrosis. Wander Hodges MD Lumbar Puncture Fluoroscopy 10/27/16 0000 Signed Impressions: Service Date/Time: Thursday, October 27, 2016 12:19 - CONCLUSION: Uncomplicated fluoroscopically guided lumbar puncture with chemotherapy injection. Matt Lassiter MD PICC Line Insertion 10/24/16 0000 Signed Impressions: Service Date/Time: Monday, October 24, 2016 12:01 - CONCLUSION: 1. Uncomplicated central venous Power PICC line placement. 2. The PICC line can be used immediately. Serafin Saba MD Bone Biopsy CT 10/24/16 0000 Signed Impressions: Service Date/Time: Monday, October 24, 2016 16:09 - CONCLUSION: 1. Uncomplicated CT guided bone marrow aspirate. 2. Uncomplicated CT guided bone marrow biopsy. Balwinder Swenson MD Renal Ultrasound 10/30/16 0000 Signed Impressions: Service Date/Time: October 08:13 - CONCLUSION: Unremarkable exam with no evidence of hydronephrosis. Wander Hodges MD Chest X-Ray 10/29/16 0000 Signed Impressions: Service Date/Time: Saturday, October 29, 2016 08:10 - CONCLUSION: No acute disease. Dion Marmolejo Jr., MD PHYSICAL EXAMINATION GENERAL: Awake and alert. No acute distress. HEENT: No icterus. Oropharynx moist mucosa NECK: Supple, No adenopathy or swelling. LUNGS: Breath sounds clear. HEART: S1 and S2 without audible murmurs, rubs or gallops. ABDOMEN: Bowel sounds present, soft, and nontender. EXTREMITIES: No clubbing, cyanosis or edema. PICC ok SKIN: Has erythematous maculopapular rash in whole back, some scattered rash in UE, thigh; rash in upper chest better NEUROLOGIC: No gross focal findings. PSYCHIATRIC: Calm and cooperative. IMPRESSION Acute Lymphoblastic leukemia with pancytopenia. - Patient post induction chemotherapy. Neutropenia. resolve Low grade fevers, resolved - clinically no eevidence of new infection - certainly concern with his line - BC have been ordered - suspect could be low grade temps from drug eruption Acute renal failure. On hemodialysis. improving. Gingival stomatitis. Probably herpetic. Looks better. Rash, likely drug eruption, etiology? RECOMMENDATIONS He is on Diflucan and acyclovir - to finish today No evidence of new infection He is clinically stable from ID standpoint I will sign off Please call if with any new ID issue or question Deonna Ansari MD Nov 18, 2016 10:37
[2016-11-18] MEDS ORDERED: VANCOMYCIN INJ 1,000 MG in SODIUM CHLOR 0.9% 250 ML INJ 250 ML IV SCH (10:45)
[2016-11-18] MEDS ORDERED: ceFAZolin 2 GM PREMIX 50 ML IV SCH (10:45)
--- NOTE | 2016-11-18 13:55 | HHI.PR ---
Subjective Remarks Follow-up visit ALL, tumor lysis syndrome, renal failure. Patient was seen and examined today states that he is awaiting permacath placement. He also reported that Dr. Rice spoke with him that he will probably placed him in [facility] center once insurance has been straightened out. Otherwise, denies pain, denies SOB/ dyspnea. Denies chest pain, palpitations, headaches, dizziness. Denies fevers, chills, n/v/d. Objective Vitals Vital Signs Date Time Temp Pulse Resp B/P (MAP) Pulse Ox O2 Delivery O2 Flow Rate FiO2 11/18/16 12:00 91 11/18/16 08:00 85 11/18/16 08:00 97.8 84 18 124/58 (80) 96 11/18/16 04:40 98.4 67 19 124/62 (82) 94 11/18/16 04:06 84 11/18/16 00:25 99.4 96 19 113/59 (77) 96 11/18/16 00:02 82 11/17/16 20:30 97.9 97 20 128/60 (82) 98 11/17/16 20:12 93 11/17/16 17:05 82 11/17/16 16:00 98.5 88 20 130/68 (88) 97 11/17/16 14:41 88 I/O 11/17/16 11/17/16 11/17/16 11/18/16 11/18/16 11/18/16 07:00 15:00 23:00 07:00 15:00 23:00 Intake Total 1000 ml 360 ml 500 ml Output Total 350 ml 3250 ml 800 ml 425 ml 250 ml Balance 650 ml -2890 ml -800 ml 75 ml -250 ml Intake Oral 1000 ml 360 ml 500 ml Output Urine Total 350 ml 250 ml 800 ml 425 ml 250 ml Hemodialysis 3000 ml # Voids 2 # Bowel Movements 1 Result Diagram: 11/18/16 0600 11/18/16 0600 Imaging Last Impressions Gall Bladder Ultrasound 11/09/16 0000 Signed Impressions: Service Date/Time: Wednesday, November 09, 2016 12:22 - CONCLUSION: 1. Increased echogenicity throughout the liver suggestive of fatty infiltration. The liver is enlarged at 18.5 cm. 2. There are gallstones in the gallbladder. No biliary tract obstruction. Prasad Cade MD Abdomen/Pelvis CT 11/08/16 0000 Signed Impressions: Service Date/Time: Tuesday, November 08, 2016 15:00 - CONCLUSION: #1. Small right-sided pleural effusion. #2. Hazy increased density identified adjacent to the head of the pancreas as compared to the body and tail which may represent early changes of acute pancreatitis. Recommend correlation with patient's laboratory values. #3. Small anterior hernia with preperitoneal fat. This is seen approximately 2 cm superior to the umbilicus. Darcie Evans MD Chest X-Ray 11/01/16 0000 Signed Impressions: Service Date/Time: Tuesday, November 01, 2016 14:05 - CONCLUSION: Bibasilar densities likely atelectasis. Neal Castro MD Catheter Placement X-Ray 10/30/16 0826 Signed Impressions: Service Date/Time: October 11:04 - CONCLUSION: Uncomplicated Vas-Cath placement as above. Matt Lassiter MD Renal Ultrasound 10/30/16 0000 Signed Impressions: Service Date/Time: October 08:13 - CONCLUSION: Unremarkable exam with no evidence of hydronephrosis. Wander Hodges MD Lumbar Puncture Fluoroscopy 10/27/16 0000 Signed Impressions: Service Date/Time: Thursday, October 27, 2016 12:19 - CONCLUSION: Uncomplicated fluoroscopically guided lumbar puncture with chemotherapy injection. Matt Lassiter MD PICC Line Insertion 10/24/16 0000 Signed Impressions: Service Date/Time: Monday, October 24, 2016 12:01 - CONCLUSION: 1. Uncomplicated central venous Power PICC line placement. 2. The PICC line can be used immediately. Serafin Saba MD Bone Biopsy CT 10/24/16 0000 Signed Impressions: Service Date/Time: Monday, October 24, 2016 16:09 - CONCLUSION: 1. Uncomplicated CT guided bone marrow aspirate. 2. Uncomplicated CT guided bone marrow biopsy. Balwinder Swenson MD Objective Remarks GENERAL: This is a well-nourished, well-developed patient, in no apparent distress. SKIN: Warm and dry. Erythematous macupapular rash throughout trunk and back area, bilateral side of the abdomen - improving HEENT: Normocephalic. Pupils equal round and reactive. Nose without bleeding. Airway patent. NECK: Trachea midline. Supple. CARDIOVASCULAR: Regular rate and rhythm without murmurs, gallops, or rubs. RESPIRATORY: Diminished bases. No wheezes, rales, or rhonchi. GASTROINTESTINAL: Abdomen soft, non-tender, nondistended. Bowel Sounds normoactive x4. MUSCULOSKELETAL: Extremities without clubbing, cyanosis, or edema. NEUROLOGICAL: Awake and alert. Oriented to time, place, person. No focal neuro deficit. Moves all extremities. Normal speech. 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 Continue chemotherapy (hyperCVAD + Rituxan & Cytarabine). - Patient will continue outpatient chemotherapy. Follow up with oncology Pneumonia: Off antibiotics per infectious disease. DuoNeb as needed. Stable on room air. Hypertension: Continue amlodipine. Vasotec IV as needed. Blood pressure control improved. Tumor lysis syndrome: S/P Rasburicase. Appreciate oncology, nephrology management. Atrial fibrillation with RVR: Appreciate cardiology recommendations.2-D echocardiogram shows ejection fraction 55-60%. Continue oral Cardizem, metoprolol. Acute renal failure: Dialysis per nephrology (M-W-). Adequate UO. HD in am. Avoid nephrotoxins. - Right IJ Vas-Cath removed. Plan for permacath placement today - Patient will need outpatient hemodialysis set up. As per her hotel front desk agent , unknown if patient is end-stage renal but will set him up for hemodialysis as an outpatient. - Case management is working on setting him up for [facility] Poor oral intake: Likely secondary to chemotherapy. Continue Megace. Complaints of decreased appetite. Encouraged. Rash: Has rash on upper back and chest that started 2 days ago. Rash is papular and there is evidence of excoriation. Patient denies chest pain, dyspnea, wheeze. Lungs are clear on exam. - Only new medication is metoprolol, started 11/14/16. Monitor rash. - Was on multiple antibiotics previously broad spectrum coverage which may have caused the reaction. As per ID they will not start any antibiotic for now. - Benadryl available PRN - Hydrocortisone cream BID. - Improving Diarrhea: Was given one time dose of Imodium. Cdiff checked on 11/06/16 which was negative. - No complaints DVT prophylaxis: Jurgen, KRISTEN sauer. Discussed with patient, nursing, Dr. Dee Discharge Planning Plan for discharge when cleared by nephrology and hemodialysis set up is done. Problem Qualifiers (1) Pneumonia: (2) Acute lymphocytic leukemia: Qualified Codes: C91.00 - Acute lymphoblastic leukemia not having achieved remission (3) Atrial fibrillation: Reymundo Aguilar [facility] Nov 18, 2016 13:55
[2016-11-18] MEDS ORDERED: MIDAZOLAM HCL 2 MG/2 ML VIAL ONE ×2 (16:45→17:27)
[2016-11-18] MEDS ORDERED: LIDOCAINE 2%/EPINEPHrine 1:100,000 20ML MDV ONE (17:07)
--- NOTE | 2016-11-18 17:49 | RADRPT ---
EXAM DATE/TIME: 11/18/2016 16:47 [place] COMPARISON: No previous studies available for comparison. INDICATIONS : Acute renal failure. MEDICAL HISTORY : 1. Acute kidney injury 2.ALL 3. rheumatic fever SURGICAL HISTORY : 1. vas cath 2. Bone bx 3. Appendectomy ENCOUNTER: Initial ACUITY: 3 weeks PAIN SCORE: 0/10 FLUORO TIME: 1.2 minutes IMAGE SERIES: 1 SEDATION TIME: 30 minutes ACCESS: Right internal jugular vein SEDATION: 1.) 3 mg midazolam (Versed) IV 2.) 100 mcg fentanyl (Sublimaze) IV Prophylactic antibiotics were administered with appropriate pre-procedure timing. Vancomycin within 2 hours of procedure, Ancef (or alternative) within 1 hour of procedure. DEVICE: 1. 15 Polish dual lumen 23 cm Leach II Plus catheter PROCEDURE : 1. Ultrasound-guided venipuncture. 2. PermaCath placement. 3. Conscious sedation with continuous EKG and oximetry monitoring. The risks, benefits and alternatives to the procedure were explained and verbal and written consent w as obtained. The site was prepped in sterile fashion. Full sterile technique was used, including ca p, mask, sterile gloves and gown and a large sterile sheet. Hand hygiene and 2% chlorhexidine and/or betadine/alcohol prep was utilized per protocol for cutaneous antisepsis. Sterile gel and sterile p robe cover were utilized for ultrasound guidance. The skin and subcutaneous tissues were infiltrated with local anesthetic solution. With ultrasound and fluoroscopic guidance a dermatotomy was created over the prescribed vein. A micr opuncture set was used to access the targeted vein and serial dilatation was performed to accept the prescribed length catheter. A subcutaneous tunnel was created in a retrograde fashion the catheter w as pulled through the tunnel. The catheter was flushed and assembled and locked with heparin. The c atheter was sutured in place. Conscious sedation was performed with the prescribed dosages and duration as above in the presence of an independent trained radiology nurse to assist in the monitoring of the patient. EKG and oximetry remained stable throughout the procedure. The patient tolerated the procedure well and there were n o complications. The patient was sent to post anesthesia recovery in stable condition. CONCLUSION: Uncomplicated PermaCath placement as above. Balwinder Oliver MD on November 18, 2016 at 17:47 Board Certified Radiologist. This report was verified electronically.
[2016-11-18] MEDS ORDERED: HEPARIN SODIUM - IV 2,000 UNITS/2 ML VIAL IV FLUSH PRN (18:00)
[2016-11-18] MEDS ORDERED: SODIUM CHLORIDE 0.9% FLUSH 10 ML FLUSH IVF PRN (18:00)
--- NOTE | 2016-11-18 18:03 | PD.RAD ---
Post Procedure Progress Note Pre Procedure Diagnosis: (1) Acute lymphocytic leukemia Post Procedure Diagnosis: (1) Acute lymphocytic leukemia (2) Acute renal failure Procedure Date: Nov 18, 2016 Supervising Radiologist: Balwinder Oliver Proceduralist/Assist: RT Rena(R)() Anesthesia: Local, Conscious Sedation Plan of Activity Patient to Unit: ROPU Patient Condition: Good See PACS Report for procedural detail/treatment Central Venous Access Device Procedure 1 Right Internal Jugular Hemodialysis Catheter Tunneled Placement dual lumen Wallisian: 15 Additional Detail: 23cm Balwinder Cota II, MD Nov 18, 2016 18:03
[2016-11-19] VITALS (8 sets, daily range): BP systolic 117–132; BP diastolic 50–64; PULSE 75–86; RESP 16–19; TEMP 98–99.6; O2SAT 96–98
[2016-11-19] MEDS: SUCRALFATE 1 GM/10 ML CUP PO SCH ×4 (05:22→20:28)
[2016-11-19] MEDS: PANTOPRAZOLE SODIUM 40 MG VIAL IV PUSH SCH ×2 (05:22→18:32)
[2016-11-19 05:50] LABS: HEMATOCRIT 25.7 % (39.0-51.0); MEAN CELL VOLUME 90.3 FL (80.0-100.0); MEAN CORPUSCULAR HEMOGLOBIN 31.7 PG (27.0-34.0); MEAN CORPUSCULAR HGB CONC 35.1 % (32.0-36.0); PLATELET COUNT 186 TH/MM3 (150-450); RED BLOOD COUNT 2.85 MIL/MM3 (4.50-5.90); RED CELL DISTRIBUTION WIDTH 15.3 % (11.6-17.2); WHITE BLOOD COUNT 3.9 TH/MM3 (4.0-11.0)
[2016-11-19 06:05] LABS: HEMO FLAGS AUTO DIFF
--- NOTE | 2016-11-19 07:52 | PD.ONC.PN ---
Subjective Subjective Remarks Patient seen and examined, vital signs, medications labs and fluid balance reviewed. Physician requesting he be allowed to eat, he has been nothing by mouth since he underwent dialysis catheter placement. He reports having some discomfort at the site of the dialysis catheter insertion. The rash on his back persists it is a little less itchy today. The patient denies fevers or chills, chest pain, overt bleeding, nausea vomiting or diarrhea. He is a little anxious about the possibility of the incoming Hurricaine and wants to know how this may impact his ability to undergo outpatient dialysis if he is discharged later this week. Objective Data Date Time Temp Pulse Resp B/P (MAP) Pulse Ox O2 Delivery O2 Flow Rate FiO2 11/19/16 04:35 98.4 76 18 121/62 (81) 96 11/19/16 00:40 99.6 82 19 124/60 (81) 96 11/18/16 20:40 97.3 97 20 119/58 (78) 96 11/18/16 18:15 75 20 138/71 (93) 95 11/18/16 18:00 58 20 137/66 (89) 95 11/18/16 17:45 98.5 80 20 137/66 (89) 95 11/18/16 16:00 76 11/18/16 12:00 98.1 79 20 152/87 (108) 97 11/18/16 12:00 91 11/18/16 08:00 85 11/18/16 08:00 97.8 84 18 124/58 (80) 96 11/19/16 11/19/16 11/19/16 07:00 15:00 23:00 Intake Total 500 ml Output Total 450 ml Balance 50 ml Result Diagram: 11/19/16 0530 11/18/16 0600 Laboratory Results Laboratory Tests Test 11/19/16 05:30 White Blood Count 3.9 TH/MM3 Red Blood Count 2.85 MIL/MM3 Hemoglobin 9.0 GM/DL Hematocrit 25.7 % Mean Corpuscular Volume 90.3 FL Mean Corpuscular Hemoglobin 31.7 PG Mean Corpuscular Hemoglobin Concent 35.1 % Red Cell Distribution Width 15.3 % Platelet Count 186 TH/MM3 Mean Platelet Volume 7.1 FL CBC Comment AUTO DIFF Administered Medications Medications (Trade) Dose Ordered Sig/Daniel Route PRN Reason Start Time Stop Time Status Last Admin Dose Admin Sodium Chloride (NS Flush) 2 ml UNSCH PRN IV FLUSH FLUSH AFTER USING IV ACCESS 10/24/16 01:45 11/18/16 06:02 Sodium Chloride (NS Flush) 2 ml BID IV FLUSH 10/24/16 09:00 11/18/16 21:49 Sodium Chloride (NS Flush) DAILY IVF 10/25/16 09:00 11/17/16 15:05 Heparin Sodium (Porcine) (Heparin Central Flush) DAILY IV FLUSH 10/25/16 09:00 11/18/16 06:03 Sodium Chloride (NS Flush) 2 ml UNSCH PRN IVF SEE PROTOCOL 10/24/16 13:15 11/16/16 09:28 Lactobacillus Acidophilus (Lactinex) 1 tab TID PO 10/24/16 18:00 11/18/16 21:50 Miscellaneous (Pill Splitter) 1 ea UNSCH PRN OTHER SEE LABEL COMMENTS 10/30/16 06:45 10/30/16 06:36 Sodium Chloride 1,000 ml @ 0 mls/hr Q0M PRN IV For Prime & Rinse Back 10/30/16 08:47 11/12/16 14:00 Sodium Chloride (NS Flush) 5 ml UNSCH PRN IV FLUSH WITH DIALYSIS 10/30/16 09:00 11/18/16 06:02 Heparin Sodium (Porcine) (Heparin Inj) UNSCH PRN .XX WITH DIALYSIS 10/30/16 09:00 11/14/16 12:17 Gentamicin Sulfate (Gentamicin (Dialysis) Inj) 20 mg UNSCH PRN IV WITH DIALYSIS 10/30/16 09:00 11/14/16 12:17 Ondansetron HCl (Zofran Inj) 4 mg UNSCH PRN IV WITH DIALYSIS 10/30/16 09:00 11/03/16 23:59 Acetaminophen (Tylenol) 650 mg UNSCH PRN PO for headach, pain, temp > 101F 10/30/16 09:00 11/07/16 23:21 Diphenhydramine HCl (Benadryl) 25 mg UNSCH PRN PO for hives/itching/anaphylaxis 10/30/16 09:00 11/17/16 02:42 Mupirocin (Bactroban 2% Oint) 1 applic Q12HR TOPICAL 11/01/16 21:00 11/02/16 21:00 Allopurinol (Zyloprim) 200 mg DAILY PO 11/02/16 09:00 11/18/16 08:04 Ondansetron HCl (Zofran Inj) 4 mg Q6H PRN IV PUSH nausea 11/04/16 08:45 11/11/16 20:57 Simethicone (Mylicon Chew) 80 mg PCHS CHEW 11/04/16 10:30 11/18/16 21:50 Calcium/Vitamin D (Oscal-D 250-125) 500 mg Q12HR PO 11/07/16 21:00 11/18/16 21:50 Hydromorphone HCl (Dilaudid Pf Inj) 1 mg Q3H PRN IV PAIN 6-10 11/08/16 16:45 11/09/16 06:36 Sucralfate (Carafate Liq) 1 gm ACHS PO 11/08/16 21:00 11/19/16 05:22 Pantoprazole Sodium (Protonix Inj) 40 mg Q12H IV PUSH 11/08/16 17:45 11/19/16 05:22 Diphenhydramine HCl (Benadryl) 25 mg Q4H PRN PO SEE LABEL COMMENTS 11/10/16 07:30 11/12/16 13:00 Megestrol Acetate (Megace Liq) 400 mg DAILY PO 11/11/16 09:00 11/18/16 08:03 Bumetanide (Bumex Inj) 2 mg DAILY IV PUSH 11/12/16 09:00 11/18/16 08:04 Metoprolol Tartrate (Lopressor) 25 mg Q12HR PO 11/14/16 09:00 11/18/16 21:50 Diltiazem HCl (Cardizem Cd) 240 mg DAILY PO 11/14/16 09:00 11/18/16 08:04 Loperamide HCl (Imodium) 2 mg Q4H PRN PO diarrhea 11/15/16 23:30 11/15/16 23:37 Hydrocortisone (Nutracort 1% Oint) 1 applic BID TOPICAL 11/17/16 13:30 11/27/16 13:29 11/18/16 21:50 Vancomycin HCl 1000 mg/Sodium Chloride 250 ml @ 250 mls/hr NARROW GAUGE ENGINEER IV 11/18/16 10:45 11/22/16 10:44 11/18/16 16:12 Objective Remarks GENERAL APPEARANCE: Mr. Chou is an elderly male, he is tall and heavy-set, He sitting up, appears to be no acute distress. Does not appear as ill or fatigued today. HEENT: Head atraumatic, normocephalic, conjunctivae are pale. Sclerae are anicteric, EOMI, PERRLA, oral exam no pharyngeal erythema. He has a submucosal bruise along the right side of the soft palate. NECK: No palpable cervical or supraclavicular lymphadenopathy. Right . Right IJ dialysis catheter has been removed, it has been replaced by a tunneled Vas-Cath on the right side. RESPIRATORY: Good air movement bilaterally over the upper and middle lung zones , decreased breath sounds over the bases. No added breath sounds. CARDIOVASCULAR: Regular rate and rhythm, S1-S2. No obvious murmurs, gallops. ABDOMEN: Obese belly, soft, nontender, nondistended, no palpable organ enlargement, specifically no hepatosplenomegaly. EXTREMITIES: Lower extremities, positive for pretibial edema. No calf tenderness. PICC line in right arm. JAZ/LYMPH EXAMINATION: No cervical lymphadenopathy, no axillary lymphadenopathy and no inguinal lymphadenopathy. SONOGRAM TECHNICIAN: Exam without any abnormal findings specifically no motor or sensory deficits. Skin: Maculopapular rash diffusely present over the posterior chest wall and flank. The rash involving the anterior chest is imaging clerk and less pronounced today. 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 His disease is negative for the BCR/ABL fusion gene. 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 S/p cycle 1 Hyper-CVAD + Rituxan and IT cytarabine. Plan B-cell ALL Ph chromosome negative, CD 20 positive. S/p C1 Hyper-CVAD + R. Complicated by TLS and ARF requiring HD for this. His counts are recovering. 1. Renal insufficiency: Remains on hemodialysis, hemodialysis will likely continue in the outpatient setting, we remain cautiously optimistic that his renal function will recover and that hemodialysis will not be a long-term requirement even though it is clearly required at the time being. 2. Cytopenias are recovering well, his platelet count is now over 100, absolute neutral count is within normal limits and his hemoglobin is approaching 10 g/dL. 3. Low grade fevers + rash: on PO Acyclovir and Diflucan prophylaxis. given vancomycin 1.25 g IV 1 on 11/15. BC pending. ID following and recommends no further abx at this time. As of 11/18/2016 the rash is improved. 4. AFib with RVR: He is rate controlled and in regular rhythm at this time. A. fib may have been a transient issue when he was acutely ill, he is not on anticoagulation and at this point I do not think anticoagulation is indicated. 5. Dyspepsia: on scheduled Protonix as well as Carafate. still gets occasional dyspepsia. Dyspepsia is no longer a complaint. 6. Dysphagia/thrush: Resolved with nystatin. Nystatin now discontinued. 7. +dark stool: stool for occult blood was positive. Likely mucosal bleeding secondary to thrombocytopenia, this would not be a good time for an invasive workup with colonoscopy/EGD. monitor CBC for now. 8. Physical therapy following and recommends home with home health when appropriate. Disposition: He is ready for discharge from a hematologic standpoint. He will require readmission in the upcoming 2 weeks for cycle #2/arm B Hyper-CVAD. He may benefit from discharged to a rehabilitation however he clearly prefers going home. He does live at home alone but does have neighbors who are willing to help in family members who live close by to help with meals and doctors appointments and other activities of daily living. It appears hemodialysis will be required as an outpatient even though he continues to be designated as acute renal failure. Per our high school social science teacher acute renal failure now meets insurance requirements for coverage in the outpatient setting. He will require a tunneled catheter for dialysis prior discharge. Problem Qualifiers (1) Acute lymphocytic leukemia: Qualified Codes: C91.00 - Acute lymphoblastic leukemia not having achieved remission Sukhwinder Rice MD Nov 19, 2016 07:52
[2016-11-19 08:50] LABS: BANDS 10 % (0-6); EOSINOPHILS 1 % (0-4); METAMYELOCYTES 4 % (0-1); MYELOCYTES 5 % (0-0); NEUTROPHIL # MANUAL DIFF 2.8 TH/MM3 (1.8-7.7); PLATELET ESTIMATE SMEAR NORMAL (NORMAL); PLATELET MORPHOLOGY NORMAL (NORMAL); POLYS (SEG NEUTROPHILS) 54 % (16-70); SCAN/DIFF FINAL DIFF MANUAL; WBC DIFF SAMPLE 100
[2016-11-19] MEDS: SODIUM CHLORIDE 0.9% FLUSH 10 ML FLUSH IVF SCH (09:00)
[2016-11-19] MEDS: MUPIROCIN 2% OINT 22 GM TUBE TOPICAL SCH ×2 (09:00→20:29)
[2016-11-19] MEDS: SIMETHICONE 80 MG CHEWABLE TAB CHEW SCH ×4 (10:09→20:28)
[2016-11-19] MEDS: SODIUM CHLORIDE 0.9% FLUSH 10 ML FLUSH IV FLUSH SCH ×2 (10:09→20:29)
[2016-11-19] MEDS: BUMETANIDE INJ 1 MG/4 ML VIAL IV PUSH SCH (10:09)
[2016-11-19] MEDS: METOPROLOL TARTRATE 25 MG TAB PO SCH ×2 (10:09→20:28)
[2016-11-19] MEDS: LACTOBACILLUS ACIDOPHILUS TAB PO SCH ×3 (10:09→18:32)
[2016-11-19] MEDS: DILTIAZEM-CD 240 MG CAP ER PO SCH (10:09)
[2016-11-19] MEDS: CALCIUM/VITAMIN D 250 MG/125 U TAB PO SCH ×2 (10:10→20:29)
[2016-11-19] MEDS: ALLOPURINOL 100 MG TAB PO SCH (10:10)
[2016-11-19] MEDS: MEGESTROL ACETATE SUSP 400 MG/10 ML CUP PO SCH (10:10)
[2016-11-19] MEDS: HYDROCORTISONE 1% OINT 30 GM TUBE TOPICAL SCH ×2 (11:04→20:29)
[2016-11-19] MEDS ORDERED: GNP1OIN TOPICAL (11:07)
[2016-11-19] MEDS ORDERED: ALLO100 PO (11:07)
[2016-11-19 11:09] LABS: POTASSIUM 4.1 MEQ/L (3.5-5.1)
[2016-11-19] MEDS ORDERED: GETGO ROLLING W1 MI1 (11:10)
[2016-11-19] MEDS ORDERED: BEDSIDE COMMODE1 MI1 (11:12)
[2016-11-19] MEDS ORDERED: ADJUSTABLE COMM1 MIS (11:15)
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
--- NOTE | 2016-11-19 13:42 | HHI.NPPN ---
Subjective General Problems: Anemia, Edema, Hypertension Renal Failure: Acute Interval History Creatinine is higher today. Being prepared for HD. Good urine output. Permcath placed yesterday. (Nava Cabral) Review of Systems General Constitutional: Fatigue (Nava Cabral) Respiratory Lungs: SOB (Nava Cabral) Cardiovascular Cardiac: Edema, YOUNGER (Nava Cabral) Gastrointestinal Gastrointestinal: Nausea & Vomiting GI Remarks loss of appetite (Nava Cabral) Objective Data Data Vital Signs Date Time Temp Pulse Resp B/P (MAP) Pulse Ox O2 Delivery O2 Flow Rate FiO2 11/19/16 08:00 98.5 86 16 132/64 (86) 97 11/19/16 04:35 98.4 76 18 121/62 (81) 96 11/19/16 04:03 79 11/19/16 00:40 99.6 82 19 124/60 (81) 96 11/19/16 00:04 75 11/18/16 20:40 97.3 97 20 119/58 (78) 96 11/18/16 20:06 97 11/18/16 18:15 75 20 138/71 (93) 95 11/18/16 18:00 58 20 137/66 (89) 95 11/18/16 17:45 98.5 80 20 137/66 (89) 95 11/18/16 16:00 76 (Nava Cabral) -: 11/19/16 0530 11/19/16 1011 Imaging Last 72 hours Impressions Catheter Placement X-Ray 11/18/16 0000 Signed Impressions: Service Date/Time: Friday, November 18, 2016 16:47 - CONCLUSION: Uncomplicated PermaCath placement as above. Balwinder Oliver MD Tubes & Lines: Perma-Cath (Nava Cabral) Physical Exam General Appearance: Well Developed, Well Nourished, No Acute Distress, Comfortable (Nava Cabral) Eyes Eye Exam: Pupils Equal (Nava Cabral) Throat Throat Exam: Oral Mucosa Moffett & Moist (Nava Cabral) Neck Neck Exam: Neck Supple (Nava Cabral) Pulmonary Resp Exam: Clear Bilaterally, Breath Sounds Equal, No Distress (Nava Cabral) Cardiology CV Exam: Regular, Normal Sinus Rhythm, Good Perfusion (Nava Cabral) Gastrointestinal/Abdomen GI Exam: Soft, Non-Tender, Bowel Sounds Present, Positive Bowel Movement (Nava Cabral) Musculoskeletal MS Exam: Joints Intact, Normal Gait, Normal Tone MS Remarks generalized weakness (Nava Cabral) Integumentary Skin Exam: Clear, Warm, Dry, Intact (Nava Cabral) Extremeties Extremities Exam: Moderate Edema, Pitting Edema Extremeties Remarks 1+ edema to lower extremities (Nava Cabral) Neurologic Neuro Exam: Alert, Awake, Oriented (Nava Cabral) Psychiatric Psych Exam: Appropriate Responses (Nava Cabral) Assessment/Plan Discussed Condition With: Patient Assessment Summary: FAIZA/Acute Renal Failure, Hypertension Electrolyte Assessment: Hypocalcemia Problem List: (1) Acute kidney injury ICD Codes: N17.9 - Acute kidney failure, unspecified Status: Acute Plan: 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 Non oliguric, however no renal recovery yet. s/p PermCath placement. on MWF HD if needed; to have HD today await renal recovery if needed he can do outpatient HD with a diagnosis of acute kidney injury. He would go to [facility] repeat renal panel daily avoid IVF, nephrotoxins (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 (3) Hypocalcemia ICD Codes: E83.51 - Hypocalcemia Status: Acute Plan: follow serum calcium level Avoid IV calcium administration. 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 Non oliguric, however no renal recovery yet. s/p PermCath placement. on MWF HD if needed; to have HD today await renal recovery if needed he can do outpatient HD with a diagnosis of acute kidney injury. He would go to [facility] repeat renal panel daily avoid IVF, nephrotoxins (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 (3) Hypocalcemia ICD Codes: E83.51 - Hypocalcemia Status: Acute Plan: follow serum calcium level Avoid IV calcium administration. 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 Non oliguric. Dialysis as needed. Avoid nephrotoxic agents. (Clay Galicia MD) Problem Qualifiers (1) Acute lymphocytic leukemia: Qualified Codes: C91.00 - Acute lymphoblastic leukemia not having achieved remission Nava Cabral Nov 19, 2016 13:42 Clay Galicia MD Nov 19, 2016 22:29
[2016-11-19] MEDS: GENTAMICIN SULFATE (DIALYSIS USE ONLY) 20 MG/2 ML VIAL IV PRN (15:27)
[2016-11-20] VITALS: BP 120/53; PULSE 73; PULSE 83; RESP 18; TEMP 98.5; O2SAT 96
[2016-11-20 04:00] VITALS: BP 128/56; PULSE 72; PULSE 78; RESP 16; TEMP 98.8; O2SAT 95
[2016-11-20] MEDS: PANTOPRAZOLE SODIUM 40 MG VIAL IV PUSH SCH ×2 (05:01→18:03)
[2016-11-20] MEDS: SUCRALFATE 1 GM/10 ML CUP PO SCH ×4 (05:01→20:30)
[2016-11-20 06:02] LABS: BICARBONATE 30.3 MEQ/L (21.0-32.0); POTASSIUM 4.1 MEQ/L (3.5-5.1)
--- NOTE | 2016-11-20 07:26 | PD.ONC.PN ---
Subjective Subjective Remarks Pt seen and examined. VS, labs and medications reviewed. He had HD yesterday, continues to have good urine output. Denies overt bleeding, fevers, chills, chest pain or diarrhea. His rash is improved. Objective Data Date Time Temp Pulse Resp B/P (MAP) Pulse Ox O2 Delivery O2 Flow Rate FiO2 11/20/16 04:00 72 11/20/16 04:00 98.8 78 16 128/56 (80) 95 11/20/16 00:00 98.5 83 18 120/53 (75) 96 11/20/16 00:00 73 11/19/16 20:00 81 11/19/16 20:00 98.3 85 18 127/50 (75) 96 11/19/16 17:00 98.1 82 16 117/53 (74) 96 11/19/16 12:00 98.0 79 16 127/57 (80) 98 11/19/16 08:00 98.5 86 16 132/64 (86) 97 11/20/16 11/20/16 11/20/16 07:00 15:00 23:00 Intake Total 480 ml Output Total 350 ml Balance 130 ml Result Diagram: 11/19/16 0530 11/20/16 0506 Laboratory Results Laboratory Tests Test 11/19/16 10:11 11/20/16 05:06 Blood Urea Nitrogen 60 MG/DL 35 MG/DL Creatinine 6.16 MG/DL 4.15 MG/DL Random Glucose 166 MG/DL 130 MG/DL Calcium Level 7.7 MG/DL 7.8 MG/DL Sodium Level 136 MEQ/L 137 MEQ/L Potassium Level 4.1 MEQ/L 4.1 MEQ/L Chloride Level 99 MEQ/L 99 MEQ/L Carbon Dioxide Level 25.0 MEQ/L 30.3 MEQ/L Anion Gap 12 MEQ/L 8 MEQ/L Estimat Glomerular Filtration Rate 9 ML/MIN 14 ML/MIN Albumin 2.6 GM/DL Phosphorus Level 3.0 MG/DL Administered Medications Medications (Trade) Dose Ordered Sig/Daniel Route PRN Reason Start Time Stop Time Status Last Admin Dose Admin Sodium Chloride (NS Flush) 2 ml UNSCH PRN IV FLUSH FLUSH AFTER USING IV ACCESS 10/24/16 01:45 11/18/16 06:02 Sodium Chloride (NS Flush) 2 ml BID IV FLUSH 10/24/16 09:00 11/19/16 20:29 Sodium Chloride (NS Flush) DAILY IVF 10/25/16 09:00 11/17/16 15:05 Heparin Sodium (Porcine) (Heparin Central Flush) DAILY IV FLUSH 10/25/16 09:00 11/18/16 06:03 Sodium Chloride (NS Flush) 2 ml UNSCH PRN IVF SEE PROTOCOL 10/24/16 13:15 11/16/16 09:28 Lactobacillus Acidophilus (Lactinex) 1 tab TID PO 10/24/16 18:00 11/19/16 18:32 Miscellaneous (Pill Splitter) 1 ea UNSCH PRN OTHER SEE LABEL COMMENTS 10/30/16 06:45 10/30/16 06:36 Sodium Chloride 1,000 ml @ 0 mls/hr Q0M PRN IV For Prime & Rinse Back 10/30/16 08:47 11/12/16 14:00 Heparin Sodium (Porcine) (Heparin Inj) 8,000 units UNSCH PRN IVF WITH DIALYSIS 10/30/16 09:00 11/19/16 15:27 Sodium Chloride (NS Flush) 5 ml UNSCH PRN IV FLUSH WITH DIALYSIS 10/30/16 09:00 11/18/16 06:02 Heparin Sodium (Porcine) (Heparin Inj) UNSCH PRN .XX WITH DIALYSIS 10/30/16 09:00 11/14/16 12:17 Gentamicin Sulfate (Gentamicin (Dialysis) Inj) 20 mg UNSCH PRN IV WITH DIALYSIS 10/30/16 09:00 11/19/16 15:27 Ondansetron HCl (Zofran Inj) 4 mg UNSCH PRN IV WITH DIALYSIS 10/30/16 09:00 11/03/16 23:59 Acetaminophen (Tylenol) 650 mg UNSCH PRN PO for headach, pain, temp > 101F 10/30/16 09:00 11/07/16 23:21 Diphenhydramine HCl (Benadryl) 25 mg UNSCH PRN PO for hives/itching/anaphylaxis 10/30/16 09:00 11/17/16 02:42 Mupirocin (Bactroban 2% Oint) 1 applic Q12HR TOPICAL 11/01/16 21:00 11/02/16 21:00 Allopurinol (Zyloprim) 200 mg DAILY PO 11/02/16 09:00 11/19/16 10:10 Ondansetron HCl (Zofran Inj) 4 mg Q6H PRN IV PUSH nausea 11/04/16 08:45 11/11/16 20:57 Simethicone (Mylicon Chew) 80 mg PCHS CHEW 11/04/16 10:30 11/19/16 20:28 Calcium/Vitamin D (Oscal-D 250-125) 500 mg Q12HR PO 11/07/16 21:00 11/19/16 20:29 Hydromorphone HCl (Dilaudid Pf Inj) 1 mg Q3H PRN IV PAIN 6-10 11/08/16 16:45 11/09/16 06:36 Sucralfate (Carafate Liq) 1 gm ACHS PO 11/08/16 21:00 11/20/16 05:01 Pantoprazole Sodium (Protonix Inj) 40 mg Q12H IV PUSH 11/08/16 17:45 11/20/16 05:01 Diphenhydramine HCl (Benadryl) 25 mg Q4H PRN PO SEE LABEL COMMENTS 11/10/16 07:30 11/12/16 13:00 Megestrol Acetate (Megace Liq) 400 mg DAILY PO 11/11/16 09:00 11/19/16 10:10 Bumetanide (Bumex Inj) 2 mg DAILY IV PUSH 11/12/16 09:00 11/19/16 10:09 Metoprolol Tartrate (Lopressor) 25 mg Q12HR PO 11/14/16 09:00 11/19/16 20:28 Diltiazem HCl (Cardizem Cd) 240 mg DAILY PO 11/14/16 09:00 11/19/16 10:09 Loperamide HCl (Imodium) 2 mg Q4H PRN PO diarrhea 11/15/16 23:30 11/15/16 23:37 Hydrocortisone (Nutracort 1% Oint) 1 applic BID TOPICAL 11/17/16 13:30 11/27/16 13:29 11/19/16 20:29 Vancomycin HCl 1000 mg/Sodium Chloride 250 ml @ 250 mls/hr FORMING PROCESS WORKER IV 11/18/16 10:45 11/22/16 10:44 11/18/16 16:12 Objective Remarks GENERAL APPEARANCE: Mr. Chou is an elderly male, he is tall and heavy-set, He sitting up, appears to be no acute distress. Does not appear as ill or fatigued today. HEENT: Head atraumatic, normocephalic, conjunctivae are pale. Sclerae are anicteric, EOMI, PERRLA, oral exam no pharyngeal erythema. He has a submucosal bruise along the right side of the soft palate. NECK: No palpable cervical or supraclavicular lymphadenopathy. Right . Right IJ dialysis catheter has been removed, it has been replaced by a tunneled Vas-Cath on the right side. RESPIRATORY: Good air movement bilaterally over the upper and middle lung zones , decreased breath sounds over the bases. No added breath sounds. CARDIOVASCULAR: Regular rate and rhythm, S1-S2. No obvious murmurs, gallops. ABDOMEN: Obese belly, soft, nontender, nondistended, no palpable organ enlargement, specifically no hepatosplenomegaly. EXTREMITIES: Lower extremities, positive for pretibial edema. No calf tenderness. PICC line in right arm. JAZ/LYMPH EXAMINATION: No cervical lymphadenopathy, no axillary lymphadenopathy and no inguinal lymphadenopathy. LANDSCAPE CREW MEMBER: Exam without any abnormal findings specifically no motor or sensory deficits. Skin: Maculopapular rash diffusely present over the posterior chest wall and flank. The rash involving the anterior chest is edge banding machine offbearer and less pronounced today. 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 His disease is negative for the BCR/ABL fusion gene. 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 S/p cycle 1 Hyper-CVAD + Rituxan and IT cytarabine. Plan B-cell ALL Ph chromosome negative, CD 20 positive. S/p C1 Hyper-CVAD + R. Complicated by TLS and ARF requiring HD for this. His counts are recovering. 1. Renal insufficiency: Remains on hemodialysis, hemodialysis will likely continue in the outpatient setting, we remain cautiously optimistic that his renal function will recover and that hemodialysis will not be a long-term requirement even though it is clearly required at the time being. 2. Cytopenias are recovering well, his platelet count is now over 100, absolute neutral count is within normal limits and his hemoglobin is approaching 10 g/dL. 3. Low grade fevers + rash: on PO Acyclovir and Diflucan prophylaxis. given vancomycin 1.25 g IV 1 on 11/15. BC pending. ID following and recommends no further abx at this time. As of 11/18/2016 the rash is improved. 4. AFib with RVR: He is rate controlled and in regular rhythm at this time. A. fib may have been a transient issue when he was acutely ill, he is not on anticoagulation and at this point I do not think anticoagulation is indicated. 5. Dyspepsia: on scheduled Protonix as well as Carafate. still gets occasional dyspepsia. Dyspepsia is no longer a complaint. 6. Dysphagia/thrush: Resolved with nystatin. Nystatin now discontinued. 7. +dark stool: stool for occult blood was positive. Likely mucosal bleeding secondary to thrombocytopenia, this would not be a good time for an invasive workup with colonoscopy/EGD. monitor CBC for now. 8. Physical therapy following and recommends home with home health when appropriate. Disposition: He is ready for discharge from a hematologic standpoint. He will require readmission in the upcoming 2 weeks for cycle #2/arm B Hyper-CVAD. He may benefit from discharged to a rehabilitation however he clearly prefers going home. He does live at home alone but does have neighbors who are willing to help in family members who live close by to help with meals and doctors appointments and other activities of daily living. It appears hemodialysis will be required as an outpatient even though he continues to be designated as acute renal failure. Per our marketing information analyst acute renal failure now meets insurance requirements for coverage in the outpatient setting. He will require a tunneled catheter for dialysis prior discharge. No changes. Problem Qualifiers (1) Acute lymphocytic leukemia: Qualified Codes: C91.00 - Acute lymphoblastic leukemia not having achieved remission Sukhwinder Rice MD Nov 20, 2016 07:26
[2016-11-20 08:00] VITALS: BP 127/62; PULSE 86; RESP 21; TEMP 96.7; O2SAT 94
--- NOTE | 2016-11-20 08:54 | HHI.NPPN ---
Subjective General Problems: Anemia, Edema, Hypertension Renal Failure: Acute Interval History He was dialyzed yesterday. He remains non oliguric. He has no other specific complaints. Review of Systems General Constitutional: Fatigue Respiratory Lungs: SOB Cardiovascular Cardiac: Edema Gastrointestinal GI Remarks loss of appetite Objective Data Data Vital Signs Date Time Temp Pulse Resp B/P (MAP) Pulse Ox O2 Delivery O2 Flow Rate FiO2 11/20/16 04:00 72 11/20/16 04:00 98.8 78 16 128/56 (80) 95 11/20/16 00:00 98.5 83 18 120/53 (75) 96 11/20/16 00:00 73 11/19/16 20:00 81 11/19/16 20:00 98.3 85 18 127/50 (75) 96 11/19/16 17:00 98.1 82 16 117/53 (74) 96 11/19/16 12:00 98.0 79 16 127/57 (80) 98 -: 11/19/16 0530 11/20/16 0506 Tubes & Lines: Perma-Cath Physical Exam General Appearance: Well Developed, Well Nourished, No Acute Distress, Comfortable Eyes Eye Exam: Pupils Equal Throat Throat Exam: Oral Mucosa [place] & Moist Neck Neck Exam: Neck Supple Pulmonary Resp Exam: Clear Bilaterally, Breath Sounds Equal, No Distress Cardiology CV Exam: Regular, Normal Sinus Rhythm, Good Perfusion Gastrointestinal/Abdomen GI Exam: Soft, Non-Tender, Bowel Sounds Present, Positive Bowel Movement Musculoskeletal MS Exam: Joints Intact, Normal Gait, Normal Tone Integumentary Skin Exam: Clear, Warm, Dry, Intact Extremeties Extremities Exam: Pitting Edema Neurologic Neuro Exam: Alert, Awake, Oriented Psychiatric Psych Exam: Appropriate Responses Assessment/Plan Discussed Condition With: Patient Assessment Summary: FAIZA/Acute Renal Failure, Hypertension Electrolyte Assessment: Hypocalcemia Problem List: (1) Acute kidney injury ICD Codes: N17.9 - Acute kidney failure, unspecified Status: Acute Plan: 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 Non oliguric, I am hopeful that renal function will improve. s/p PermCath placement. Repeat labs tomorrow, dialysis only if necessary. 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 (3) Hypocalcemia ICD Codes: E83.51 - Hypocalcemia Status: Acute Plan: resolved, (4) Pancytopenia ICD Codes: D61.818 - Other pancytopenia Status: Acute Plan: Resolved. 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 Problem Qualifiers (1) Acute lymphocytic leukemia: Qualified Codes: C91.00 - Acute lymphoblastic leukemia not having achieved remission Clay Galicia MD Nov 20, 2016 08:54
[2016-11-20] MEDS: SODIUM CHLORIDE 0.9% FLUSH 10 ML FLUSH IV FLUSH SCH ×2 (09:00→20:34)
[2016-11-20] MEDS: SODIUM CHLORIDE 0.9% FLUSH 10 ML FLUSH IVF SCH (09:00)
[2016-11-20] MEDS: MUPIROCIN 2% OINT 22 GM TUBE TOPICAL SCH ×2 (09:00→20:31)
[2016-11-20] MEDS: HYDROCORTISONE 1% OINT 30 GM TUBE TOPICAL SCH ×2 (09:00→20:31)
[2016-11-20] MEDS: BUMETANIDE INJ 1 MG/4 ML VIAL IV PUSH SCH (09:23)
[2016-11-20] MEDS: ALLOPURINOL 100 MG TAB PO SCH (09:23)
[2016-11-20] MEDS: DILTIAZEM-CD 240 MG CAP ER PO SCH (09:23)
[2016-11-20] MEDS: METOPROLOL TARTRATE 25 MG TAB PO SCH ×2 (09:23→20:31)
[2016-11-20] MEDS: LACTOBACILLUS ACIDOPHILUS TAB PO SCH ×3 (09:23→18:03)
[2016-11-20] MEDS: CALCIUM/VITAMIN D 250 MG/125 U TAB PO SCH ×2 (09:24→20:31)
[2016-11-20] MEDS: MEGESTROL ACETATE SUSP 400 MG/10 ML CUP PO SCH (09:24)
[2016-11-20] MEDS: SIMETHICONE 80 MG CHEWABLE TAB CHEW SCH ×4 (09:30→20:31)
--- NOTE | 2016-11-20 09:32 | HHI.PR ---
Subjective Remarks Follow-up visit ALL, tumor lysis syndrome, acute renal failure. Patient seen and examined today lying in bed. States he is doing well. No acute issues. Denies pain and discomfort. Denies SOB/ dyspnea. Denies chest pain, palpitations, headaches, dizziness. Denies fevers, chills, n/v/d. Denies dysuria. Objective Vitals Vital Signs Date Time Temp Pulse Resp B/P (MAP) Pulse Ox O2 Delivery O2 Flow Rate FiO2 11/20/16 04:00 72 11/20/16 04:00 98.8 78 16 128/56 (80) 95 11/20/16 00:00 98.5 83 18 120/53 (75) 96 11/20/16 00:00 73 11/19/16 20:00 81 11/19/16 20:00 98.3 85 18 127/50 (75) 96 11/19/16 17:00 98.1 82 16 117/53 (74) 96 11/19/16 12:00 98.0 79 16 127/57 (80) 98 I/O 11/19/16 11/19/16 11/19/16 11/20/16 11/20/16 11/20/16 07:00 15:00 23:00 07:00 15:00 23:00 Intake Total 500 ml 340 ml 240 ml 480 ml Output Total 450 ml 500 ml 1925 ml 350 ml Balance 50 ml -160 ml -1685 ml 130 ml Intake Oral 500 ml 340 ml 240 ml 480 ml Output Urine Total 450 ml 500 ml 225 ml 350 ml Hemodialysis 1700 ml # Bowel Movements 1 Result Diagram: 11/19/16 0530 11/20/16 0506 Objective Remarks GENERAL: This is a well-nourished, well-developed patient, in no apparent distress. SKIN: Warm and dry. Erythematous macupapular rash throughout trunk and back area, bilateral side of the abdomen - improving HEENT: Normocephalic. Pupils equal round and reactive. Nose without bleeding. Airway patent. NECK: Trachea midline. Supple. CARDIOVASCULAR: Regular rate and rhythm without murmurs, gallops, or rubs. RESPIRATORY: Diminished bases. No wheezes, rales, or rhonchi. GASTROINTESTINAL: Abdomen soft, non-tender, nondistended. Bowel Sounds normoactive x4. MUSCULOSKELETAL: Extremities without clubbing, cyanosis, BLE trace edema. NEUROLOGICAL: Awake and alert. Oriented to time, place, person. No focal neuro deficit. Moves all extremities. Normal speech. 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 Continue chemotherapy (hyperCVAD + Rituxan & Cytarabine). - Patient will continue outpatient chemotherapy. Follow up with oncology - Hematology/Oncology states patient is ready for discharge from hematologic standpoint. Requires readmission in the upcoming 2 weeks for cycle #2/arm B Hyper- CVAD Pneumonia: Off antibiotics per infectious disease. DuoNeb as needed. Stable on room air. - ID signed off. Clinically stable on infectious disease standpoint. Hypertension: Continue amlodipine. Vasotec IV as needed. Blood pressure control improved. Tumor lysis syndrome: S/P Rasburicase. Appreciate oncology, nephrology management. Atrial fibrillation with RVR: Appreciate cardiology recommendations.2-D echocardiogram shows ejection fraction 55-60%. Continue oral Cardizem, metoprolol. Acute renal failure: Dialysis per nephrology (M-W-). Adequate UO. HD in am. Avoid nephrotoxins. - Right IJ Vas-Cath removed. Plan for permacath placement today - Patient will need outpatient hemodialysis set up. As per her plant cytologist , unknown if patient is end-stage renal but will set him up for hemodialysis as an outpatient. - Case management is working on setting him up for [facility] - Spoke with Dr. Galicia, plan to keep the patient to determine whether he would need continued HD or not Poor oral intake: Likely secondary to chemotherapy. Continue Megace. Complaints of decreased appetite. Encouraged. Rash: Has rash on upper back and chest that started 2 days ago. Rash is papular and there is evidence of excoriation. Patient denies chest pain, dyspnea, wheeze. Lungs are clear on exam. - Only new medication is metoprolol, started 11/14/16. Monitor rash. - Was on multiple antibiotics previously broad spectrum coverage which may have caused the reaction. As per ID they will not start any antibiotic for now. - Benadryl available PRN - Hydrocortisone cream BID. - Improving Diarrhea: Was given one time dose of Imodium. Cdiff checked on 11/06/16 which was negative. - No complaints Generalized weakness - Patient has been evaluated by physical therapy and has been working on him. Recommends rolling walker, bedside commode and shower chair for use at home. - Continue with physical therapy until discharge. DVT prophylaxis: Jurgen, KRISTEN sauer. Discussed with patient, nursing, Dr. Dee Discharge Planning Plan for discharge when cleared by nephrology and hemodialysis set up is done. SUZY Carlisle arranging HD with [facility]. Problem Qualifiers (1) Pneumonia: (2) Acute lymphocytic leukemia: Qualified Codes: C91.00 - Acute lymphoblastic leukemia not having achieved remission (3) Atrial fibrillation: Reymundo Aguilar Nov 20, 2016 09:32
[2016-11-20 12:27] VITALS: BP 128/69; PULSE 90; RESP 23; TEMP 96; O2SAT 94
[2016-11-20 16:44] VITALS: BP 131/63; PULSE 104; RESP 22; TEMP 98.2; O2SAT 96
[2016-11-20 20:00] VITALS: BP 123/59; PULSE 75; PULSE 85; RESP 18; TEMP 98.4; O2SAT 97
[2016-11-21] VITALS: BP 151/63; PULSE 70; PULSE 81; RESP 18; TEMP 97.5; O2SAT 97
[2016-11-21 04:00] VITALS: BP 136/60; PULSE 72; PULSE 76; RESP 18; TEMP 98.3; O2SAT 96
[2016-11-21] MEDS: PANTOPRAZOLE SODIUM 40 MG VIAL IV PUSH SCH ×2 (05:08→17:11)
[2016-11-21] MEDS: SUCRALFATE 1 GM/10 ML CUP PO SCH ×4 (05:08→20:20)
[2016-11-21 05:22] LABS: AUTOMATED NEUTROPHIL # 2.5 TH/MM3 (1.8-7.7); EOSINOPHIL % 0.6 % (0.0-4.0); HEMATOCRIT 26.3 % (39.0-51.0); LYMPH % 2.7 % (9.0-44.0); LYMPHOCYTE # 0.1 TH/MM3 (1.0-4.8); MEAN CELL VOLUME 91.2 FL (80.0-100.0); MONO % 33.6 % (0.0-8.0); NEUT % 62.1 % (16.0-70.0); PLATELET COUNT 212 TH/MM3 (150-450); RED BLOOD COUNT 2.89 MIL/MM3 (4.50-5.90); RED CELL DISTRIBUTION WIDTH 15.3 % (11.6-17.2); WHITE BLOOD COUNT 4.1 TH/MM3 (4.0-11.0)
[2016-11-21 05:26] LABS: HEMO FLAGS AUTO DIFF
[2016-11-21 06:00] LABS: BICARBONATE 29.2 MEQ/L (21.0-32.0); POTASSIUM 4.4 MEQ/L (3.5-5.1)
[2016-11-21 08:28] LABS: BANDS 10 % (0-6); BASOPHILS 1 % (0-2); BLASTS 1 % (0-0); EOSINOPHILS 4 % (0-4); METAMYELOCYTES 3 % (0-1); MYELOCYTES 7 % (0-0); NEUTROPHIL # MANUAL DIFF 3.2 TH/MM3 (1.8-7.7); POLYS (SEG NEUTROPHILS) 57 % (16-70); TOXIC GRANULATION 1+ (NORMAL); WBC DIFF SAMPLE 100
[2016-11-21 08:29] LABS: OVALOCYTES 1+ (NORMAL); SCAN/DIFF FINAL DIFF MANUAL
[2016-11-21] MEDS: MUPIROCIN 2% OINT 22 GM TUBE TOPICAL SCH ×2 (09:00→20:20)
[2016-11-21] MEDS: LACTOBACILLUS ACIDOPHILUS TAB PO SCH ×3 (09:00→17:11)
[2016-11-21] MEDS: SODIUM CHLORIDE 0.9% FLUSH 10 ML FLUSH IVF SCH (09:00)
[2016-11-21] MEDS: HYDROCORTISONE 1% OINT 30 GM TUBE TOPICAL SCH ×2 (09:00→20:24)
[2016-11-21] MEDS: SODIUM CHLORIDE 0.9% FLUSH 10 ML FLUSH IV FLUSH SCH ×2 (09:00→20:24)
[2016-11-21] MEDS: SIMETHICONE 80 MG CHEWABLE TAB CHEW SCH ×4 (09:30→20:24)
--- NOTE | 2016-11-21 09:33 | HHI.NPPN ---
Subjective General Problems: Anemia, Edema, Hypertension Renal Failure: Acute Interval History Seen during dialysis. Appetite is better. (Nava Cabral) Review of Systems General Constitutional: Fatigue (Nava Cabral) Respiratory Lungs: SOB (Nava Cabral) Cardiovascular Cardiac: Edema (Nava Cabral) Gastrointestinal GI Remarks loss of appetite (Nava Cabral) Objective Data Data Vital Signs Date Time Temp Pulse Resp B/P (MAP) Pulse Ox O2 Delivery O2 Flow Rate FiO2 11/21/16 04:00 72 11/21/16 04:00 98.3 76 18 136/60 (85) 96 11/21/16 00:00 97.5 70 18 151/63 (92) 97 11/21/16 00:00 81 11/20/16 20:00 75 11/20/16 20:00 98.4 85 18 123/59 (80) 97 11/20/16 16:44 98.2 104 22 131/63 (85) 96 11/20/16 12:27 96.0 90 23 128/69 (88) 94 (Nava Cabral) -: 11/21/16 0511 11/21/16 0511 Tubes & Lines: Perma-Cath (Nava Cabral) Physical Exam General Appearance: Well Developed, Well Nourished, No Acute Distress, Comfortable (Nava Cabral) Eyes Eye Exam: Pupils Equal, Pupils Reactive (Nava Cabral) Throat Throat Exam: Oral Mucosa [place] & Moist (Nava Cabral) Neck Neck Exam: Neck Supple (Nava Cabral) Pulmonary Resp Exam: Clear Bilaterally, Breath Sounds Equal, No Distress (Nava Cabral) Cardiology CV Exam: Regular, Normal Sinus Rhythm, Good Perfusion (Nava Cabral) Gastrointestinal/Abdomen GI Exam: Soft, Non-Tender, Bowel Sounds Present, Positive Bowel Movement (Nava Cabral) Musculoskeletal MS Exam: Joints Intact, Normal Gait, Normal Tone MS Remarks generalized weakness (Nava Cabral) Integumentary Skin Exam: Clear, Warm, Dry, Intact (Nava Cabral) Extremeties Extremities Exam: Pitting Edema Extremeties Remarks 1+ edema to lower extremities (Nava Cabral) Neurologic Neuro Exam: Alert, Awake, Oriented (Nava Cabral) Psychiatric Psych Exam: Appropriate Responses (Nava Cabral) Assessment/Plan Discussed Condition With: Patient Assessment Summary: FAIZA/Acute Renal Failure, Hypertension Electrolyte Assessment: Hypocalcemia Problem List: (1) Acute kidney injury ICD Codes: N17.9 - Acute kidney failure, unspecified Status: Acute Plan: 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 Non oliguric, but he has been on dialysis MWF since 10/30 seen during dialysis today on a 3K, 350 BFR, goal 1L await renal recovery; I am hopeful that renal function will improve. s/p PermCath placement. obtain daily labs, monitor renal function. 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 (3) Hypocalcemia ICD Codes: E83.51 - Hypocalcemia Status: Acute Plan: improved, monitor (4) Pancytopenia ICD Codes: D61.818 - Other pancytopenia Status: Acute Plan: Resolved. 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 Monitor. (Nava Cabral) Plan patient was seen and examined. Renal function may be improving. Daily BMP. Dialysis only if necessary. Discussed with self pay collector. (Clay Galicia MD) Problem Qualifiers (1) Acute lymphocytic leukemia: Qualified Codes: C91.00 - Acute lymphoblastic leukemia not having achieved remission Nava Cabral Nov 21, 2016 09:33 Clay Galicia MD Nov 21, 2016 13:55
[2016-11-21] MEDS: HEPARIN SODIUM - IV 10,000 UNITS/10 ML VIAL PRN (11:03)
[2016-11-21] MEDS: GENTAMICIN SULFATE (DIALYSIS USE ONLY) 20 MG/2 ML VIAL IV PRN (11:03)
[2016-11-21 12:00] VITALS: BP 144/69; PULSE 82; RESP 16; TEMP 97.3; O2SAT 97
--- NOTE | 2016-11-21 12:42 | PD.ONC.PN ---
Subjective Subjective Remarks Afebrile overnight. Just back from dialysis. Feeling fatigued but otherwise without complaint. Objective Data Date Time Temp Pulse Resp B/P (MAP) Pulse Ox O2 Delivery O2 Flow Rate FiO2 11/21/16 04:00 72 11/21/16 04:00 98.3 76 18 136/60 (85) 96 11/21/16 00:00 97.5 70 18 151/63 (92) 97 11/21/16 00:00 81 11/20/16 20:00 75 11/20/16 20:00 98.4 85 18 123/59 (80) 97 11/20/16 16:44 98.2 104 22 131/63 (85) 96 11/21/16 11/21/16 11/21/16 07:00 15:00 23:00 Intake Total 240 ml Output Total 300 ml 2000 ml Balance -60 ml -2000 ml Result Diagram: 11/21/16 0511 11/21/16 0511 Laboratory Results Laboratory Tests Test 11/21/16 05:11 White Blood Count 4.1 TH/MM3 Red Blood Count 2.89 MIL/MM3 Hemoglobin 8.9 GM/DL Hematocrit 26.3 % Mean Corpuscular Volume 91.2 FL Mean Corpuscular Hemoglobin 31.0 PG Mean Corpuscular Hemoglobin Concent 34.0 % Red Cell Distribution Width 15.3 % Platelet Count 212 TH/MM3 Mean Platelet Volume 6.8 FL Neutrophils (%) (Auto) 62.1 % Lymphocytes (%) (Auto) 2.7 % Monocytes (%) (Auto) 33.6 % Eosinophils (%) (Auto) 0.6 % Basophils (%) (Auto) 1.0 % Neutrophils # (Auto) 2.5 TH/MM3 Lymphocytes # (Auto) 0.1 TH/MM3 Monocytes # (Auto) 1.4 TH/MM3 Eosinophils # (Auto) 0.0 TH/MM3 Basophils # (Auto) 0.0 TH/MM3 CBC Comment AUTO DIFF Differential Total Cells Counted 100 Neutrophils % (Manual) 57 % Band Neutrophils % 10 % Lymphocytes % 3 % Monocytes % 14 % Eosinophils % 4 % Basophils % 1 % Neutrophils # (Manual) 3.2 TH/MM3 Metamyelocytes 3 % Myelocytes 7 % Differential Comment FINAL DIFF MANUAL Blastocytes 1 % Toxic Granulation 1+ Ovalocytes 1+ Blood Urea Nitrogen 46 MG/DL Creatinine 4.94 MG/DL Random Glucose 102 MG/DL Calcium Level 7.6 MG/DL Sodium Level 136 MEQ/L Potassium Level 4.4 MEQ/L Chloride Level 98 MEQ/L Carbon Dioxide Level 29.2 MEQ/L Anion Gap 9 MEQ/L Estimat Glomerular Filtration Rate 12 ML/MIN Administered Medications Medications (Trade) Dose Ordered Sig/Daniel Route PRN Reason Start Time Stop Time Status Last Admin Dose Admin Sodium Chloride (NS Flush) 2 ml UNSCH PRN IV FLUSH FLUSH AFTER USING IV ACCESS 10/24/16 01:45 11/18/16 06:02 Sodium Chloride (NS Flush) 2 ml BID IV FLUSH 10/24/16 09:00 11/20/16 20:34 Sodium Chloride (NS Flush) DAILY IVF 10/25/16 09:00 11/17/16 15:05 Heparin Sodium (Porcine) (Heparin Central Flush) DAILY IV FLUSH 10/25/16 09:00 11/18/16 06:03 Sodium Chloride (NS Flush) 2 ml UNSCH PRN IVF SEE PROTOCOL 10/24/16 13:15 11/16/16 09:28 Lactobacillus Acidophilus (Lactinex) 1 tab TID PO 10/24/16 18:00 11/20/16 18:03 Miscellaneous (Pill Splitter) 1 ea UNSCH PRN OTHER SEE LABEL COMMENTS 10/30/16 06:45 10/30/16 06:36 Sodium Chloride 1,000 ml @ 0 mls/hr Q0M PRN IV For Prime & Rinse Back 10/30/16 08:47 11/12/16 14:00 Heparin Sodium (Porcine) (Heparin Inj) 8,000 units UNSCH PRN IVF WITH DIALYSIS 10/30/16 09:00 11/19/16 15:27 Sodium Chloride (NS Flush) 5 ml UNSCH PRN IV FLUSH WITH DIALYSIS 10/30/16 09:00 11/18/16 06:02 Heparin Sodium (Porcine) (Heparin Inj) UNSCH PRN .XX WITH DIALYSIS 10/30/16 09:00 11/21/16 11:03 Gentamicin Sulfate (Gentamicin (Dialysis) Inj) 20 mg UNSCH PRN IV WITH DIALYSIS 10/30/16 09:00 11/21/16 11:03 Ondansetron HCl (Zofran Inj) 4 mg UNSCH PRN IV WITH DIALYSIS 10/30/16 09:00 11/03/16 23:59 Acetaminophen (Tylenol) 650 mg UNSCH PRN PO for headach, pain, temp > 101F 10/30/16 09:00 11/07/16 23:21 Diphenhydramine HCl (Benadryl) 25 mg UNSCH PRN PO for hives/itching/anaphylaxis 10/30/16 09:00 11/17/16 02:42 Mupirocin (Bactroban 2% Oint) 1 applic Q12HR TOPICAL 11/01/16 21:00 11/20/16 09:00 Allopurinol (Zyloprim) 200 mg DAILY PO 11/02/16 09:00 11/20/16 09:23 Ondansetron HCl (Zofran Inj) 4 mg Q6H PRN IV PUSH nausea 11/04/16 08:45 11/11/16 20:57 Simethicone (Mylicon Chew) 80 mg PCHS CHEW 11/04/16 10:30 11/20/16 20:31 Calcium/Vitamin D (Oscal-D 250-125) 500 mg Q12HR PO 11/07/16 21:00 11/20/16 20:31 Hydromorphone HCl (Dilaudid Pf Inj) 1 mg Q3H PRN IV PAIN 6-10 11/08/16 16:45 11/09/16 06:36 Sucralfate (Carafate Liq) 1 gm ACHS PO 11/08/16 21:00 11/21/16 05:08 Pantoprazole Sodium (Protonix Inj) 40 mg Q12H IV PUSH 11/08/16 17:45 11/21/16 05:08 Diphenhydramine HCl (Benadryl) 25 mg Q4H PRN PO SEE LABEL COMMENTS 11/10/16 07:30 11/12/16 13:00 Megestrol Acetate (Megace Liq) 400 mg DAILY PO 11/11/16 09:00 11/20/16 09:24 Bumetanide (Bumex Inj) 2 mg DAILY IV PUSH 11/12/16 09:00 11/20/16 09:23 Metoprolol Tartrate (Lopressor) 25 mg Q12HR PO 11/14/16 09:00 11/20/16 20:31 Diltiazem HCl (Cardizem Cd) 240 mg DAILY PO 11/14/16 09:00 11/20/16 09:23 Loperamide HCl (Imodium) 2 mg Q4H PRN PO diarrhea 11/15/16 23:30 11/15/16 23:37 Hydrocortisone (Nutracort 1% Oint) 1 applic BID TOPICAL 11/17/16 13:30 11/27/16 13:29 11/20/16 09:00 Vancomycin HCl 1000 mg/Sodium Chloride 250 ml @ 250 mls/hr [employer] IV 11/18/16 10:45 11/22/16 10:44 11/18/16 16:12 Objective Remarks GENERAL: Elderly pleasant male sitting up in bed in nad. SKIN: Warm and dry. HEAD: Normocephalic. EYES: No injection or drainage. NECK: Supple, trachea midline. Perma-cath in place, right chest wall CARDIOVASCULAR: Regular rate and rhythm RESPIRATORY: Breath sounds equal bilaterally. No accessory muscle use. GASTROINTESTINAL: Abdomen soft, non-tender, nondistended. EXTREMITIES: No cyanosis. MUSCULOSKELETAL: Adequate muscle tone. NEUROLOGICAL: awake and alert, normal speech. moving all extremities. 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 S/p cycle 1 Hyper-CVAD + Rituxan and IT cytarabine. Plan B-cell ALL Ph chromosome negative, CD 20 positive. S/p C1 Hyper-CVAD + R. Complicated by TLS and ARF requiring HD for this. His counts are recovering. 1. Renal insufficiency: Remains on HD. Perma-cath placed for continuance once discharged. 2. Cytopenias: mostly recovered. remains anemic. platelet and WBC recovered. on PO Acyclovir and Diflucan prophylaxis. 3. AFib with RVR: rate controlled and in regular rhythm. On Cardizem. Disposition: He is ready for discharge from a hematologic standpoint. He will require readmission in the upcoming 2 weeks for cycle #2/arm B Hyper-CVAD. He may benefit from discharged to a rehabilitation however he clearly prefers going home. He does live at home alone but does have neighbors who are willing to help in family members who live close by to help with meals and doctors appointments and other activities of daily living. It appears hemodialysis will be required as an outpatient even though he continues to be designated as acute renal failure. Per our forms analyst acute renal failure now meets insurance requirements for coverage in the outpatient setting. Ava Akhtar Nov 21, 2016 12:42
[2016-11-21] MEDS: BUMETANIDE INJ 1 MG/4 ML VIAL IV PUSH SCH (12:56)
[2016-11-21] MEDS: DILTIAZEM-CD 240 MG CAP ER PO SCH (12:56)
[2016-11-21] MEDS: CALCIUM/VITAMIN D 250 MG/125 U TAB PO SCH ×2 (12:56→20:19)
[2016-11-21] MEDS: ALLOPURINOL 100 MG TAB PO SCH (12:56)
[2016-11-21] MEDS: METOPROLOL TARTRATE 25 MG TAB PO SCH ×2 (12:57→20:19)
[2016-11-21] MEDS: MEGESTROL ACETATE SUSP 400 MG/10 ML CUP PO SCH (12:57)
--- NOTE | 2016-11-21 14:04 | HHI.PR ---
Subjective Remarks Follow-up visit ALL, tumor lysis syndrome, acute renal failure. Patient seen and examined today. Patient reports fatigue following dialysis today otherwise has no complaints. Denies any fever or chills. Denies any chest pain or shortness of breath. Denies any N/V or abdominal pain. (+)BM yesterday and this am. Objective Vitals Vital Signs Date Time Temp Pulse Resp B/P (MAP) Pulse Ox O2 Delivery O2 Flow Rate FiO2 11/21/16 04:00 72 11/21/16 04:00 98.3 76 18 136/60 (85) 96 11/21/16 00:00 97.5 70 18 151/63 (92) 97 11/21/16 00:00 81 11/20/16 20:00 75 11/20/16 20:00 98.4 85 18 123/59 (80) 97 11/20/16 16:44 98.2 104 22 131/63 (85) 96 I/O 11/20/16 11/20/16 11/20/16 11/21/16 11/21/16 11/21/16 07:00 15:00 23:00 07:00 15:00 23:00 Intake Total 480 ml 480 ml 480 ml 240 ml Output Total 350 ml 500 ml 300 ml 2000 ml Balance 130 ml -20 ml 480 ml -60 ml -2000 ml Intake Oral 480 ml 480 ml 480 ml 240 ml Output Urine Total 350 ml 500 ml 300 ml Hemodialysis 2000 ml # Bowel Movements 3 Result Diagram: 11/21/16 0511 11/21/16 0511 Imaging Last Impressions Catheter Placement X-Ray 11/18/16 0000 Signed Impressions: Service Date/Time: Friday, November 18, 2016 16:47 - CONCLUSION: Uncomplicated PermaCath placement as above. Balwinder Oliver MD Gall Bladder Ultrasound 11/09/16 0000 Signed Impressions: Service Date/Time: Wednesday, November 09, 2016 12:22 - CONCLUSION: 1. Increased echogenicity throughout the liver suggestive of fatty infiltration. The liver is enlarged at 18.5 cm. 2. There are gallstones in the gallbladder. No biliary tract obstruction. Prasad Cade MD Abdomen/Pelvis CT 11/08/16 0000 Signed Impressions: Service Date/Time: Tuesday, November 08, 2016 15:00 - CONCLUSION: #1. Small right-sided pleural effusion. #2. Hazy increased density identified adjacent to the head of the pancreas as compared to the body and tail which may represent early changes of acute pancreatitis. Recommend correlation with patient's laboratory values. #3. Small anterior hernia with preperitoneal fat. This is seen approximately 2 cm superior to the umbilicus. Darcie Evans MD Chest X-Ray 11/01/16 0000 Signed Impressions: Service Date/Time: Tuesday, November 01, 2016 14:05 - CONCLUSION: Bibasilar densities likely atelectasis. Neal Castro MD Renal Ultrasound 10/30/16 0000 Signed Impressions: Service Date/Time: October 08:13 - CONCLUSION: Unremarkable exam with no evidence of hydronephrosis. Wander Hodges MD Lumbar Puncture Fluoroscopy 10/27/16 0000 Signed Impressions: Service Date/Time: Thursday, October 27, 2016 12:19 - CONCLUSION: Uncomplicated fluoroscopically guided lumbar puncture with chemotherapy injection. Matt Lassiter MD PICC Line Insertion 10/24/16 0000 Signed Impressions: Service Date/Time: Monday, October 24, 2016 12:01 - CONCLUSION: 1. Uncomplicated central venous Power PICC line placement. 2. The PICC line can be used immediately. Serafin Saba MD Bone Biopsy CT 10/24/16 0000 Signed Impressions: Service Date/Time: Monday, October 24, 2016 16:09 - CONCLUSION: 1. Uncomplicated CT guided bone marrow aspirate. 2. Uncomplicated CT guided bone marrow biopsy. Balwinder Swenson MD Objective Remarks GENERAL: This is a well-nourished, well-developed patient, in no apparent distress. Lying in hospital bed. Sleeping but easily awakens to voice. Appears comfortable. SKIN: Warm and dry. Erythematous macupapular rash throughout trunk and back area, bilateral side of the abdomen - improving HEENT: Normocephalic. Pupils equal round and reactive. Nose without bleeding. Airway patent. NECK: Trachea midline. Supple. CARDIOVASCULAR: Regular rate and rhythm without murmurs, gallops, or rubs. RESPIRATORY: Diminished bases. No wheezes, rales, or rhonchi. GASTROINTESTINAL: Abdomen soft, non-tender, nondistended. Bowel Sounds normoactive x4. MUSCULOSKELETAL: Extremities without clubbing, cyanosis, BLE trace edema. NEUROLOGICAL: Awake and alert. Oriented to time, place, person. No focal neuro deficit. Moves all extremities. Normal speech. Procedures 10/24/16 PICC line placement 10/24/16 bone marrow biopsy 10/30/16 Vas-Cath placement Medications and IVs Current Medications Medications (Trade) Dose Ordered Sig/Daniel Route Start Time Stop Time Status Last Admin (NS Flush) 2 ml UNSCH PRN IV FLUSH 10/24/16 01:45 11/18/16 06:02 (NS Flush) 2 ml BID IV FLUSH 10/24/16 09:00 11/20/16 20:34 (Narcan Inj) 0.4 mg UNSCH PRN IV 10/24/16 01:45 (Duoneb Neb) 1 ampule Q4HR NEB PRN NEB 10/24/16 03:45 (NS Flush) DAILY IVF 10/25/16 09:00 11/17/16 15:05 (Heparin Central Flush) DAILY IV FLUSH 10/25/16 09:00 11/18/16 06:03 (NS Flush) 2 ml UNSCH PRN IVF 10/24/16 13:15 11/16/16 09:28 (Lactinex) 1 tab TID PO 10/24/16 18:00 11/21/16 12:56 (Vasotec Inj) 1.25 mg Q8H PRN IV PUSH 10/25/16 15:45 (Pill Splitter) 1 ea UNSCH PRN OTHER 10/30/16 06:45 10/30/16 06:36 Sodium Chloride 1,000 ml @ 0 mls/hr Q0M PRN IV 10/30/16 08:47 11/12/16 14:00 (Heparin Inj) 8,000 units UNSCH PRN IVF 10/30/16 09:00 11/19/16 15:27 Sodium Chloride 1,000 ml @ 200 mls/hr Q5H PRN IV 10/30/16 08:47 Sodium Chloride 1,000 ml @ 0 mls/hr Q0M PRN IV 10/30/16 08:47 (Mannitol Inj) 12.5 gm UNSCH PRN IV 10/30/16 09:00 (Albumin 25% Inj) 25 gm UNSCH PRN IV 10/30/16 09:00 (NS Flush) 5 ml UNSCH PRN IV FLUSH 10/30/16 09:00 11/18/16 06:02 (Heparin Inj) UNSCH PRN .XX 10/30/16 09:00 11/21/16 11:03 (Gentamicin (Dialysis) Inj) 20 mg UNSCH PRN IV 10/30/16 09:00 11/21/16 11:03 (Zofran Inj) 4 mg UNSCH PRN IV 10/30/16 09:00 11/03/16 23:59 (Tylenol) 650 mg UNSCH PRN PO 10/30/16 09:00 11/07/16 23:21 (Benadryl) 25 mg UNSCH PRN PO 10/30/16 09:00 11/17/16 02:42 (Nitrostat Sl) 0.4 mg UNSCH PRN SL 10/30/16 09:00 (Catapres) 0.1 mg UNSCH PRN PO 10/30/16 09:00 (Gelfoam 12 Mm/7 Mm Top) 1 foam UNSCH PRN TOP 10/30/16 09:00 (Bactroban 2% Oint) 1 applic Q12HR TOPICAL 11/01/16 21:00 11/20/16 09:00 (Zyloprim) 200 mg DAILY PO 11/02/16 09:00 11/21/16 12:56 (Zofran Inj) 4 mg Q6H PRN IV PUSH 11/04/16 08:45 11/11/16 20:57 (Mylicon Chew) 80 mg PCHS CHEW 11/04/16 10:30 11/21/16 13:07 (Oscal-D 250-125) 500 mg Q12HR PO 11/07/16 21:00 11/21/16 12:56 (Percocet 5-325 Mg) 1 tab Q3H PRN PO 11/08/16 16:45 (Dilaudid Pf Inj) 1 mg Q3H PRN IV 11/08/16 16:45 11/09/16 06:36 (Carafate Liq) 1 gm ACHS PO 11/08/16 21:00 11/21/16 05:08 (Protonix Inj) 40 mg Q12H IV PUSH 11/08/16 17:45 11/21/16 05:08 (Benadryl) 25 mg Q4H PRN PO 11/10/16 07:30 11/12/16 13:00 (Megace Liq) 400 mg DAILY PO 11/11/16 09:00 11/21/16 12:57 (Bumex Inj) 2 mg DAILY IV PUSH 11/12/16 09:00 11/21/16 12:56 (Tylenol) 650 mg Q4H PRN PO 11/12/16 07:30 (Benadryl) 25 mg Q4H PRN PO 11/12/16 07:30 (Lopressor) 25 mg Q12HR PO 11/14/16 09:00 11/21/16 12:57 (Cardizem Cd) 240 mg DAILY PO 11/14/16 09:00 11/21/16 12:56 (Imodium) 2 mg Q4H PRN PO 11/15/16 23:30 11/15/16 23:37 (Nutracort 1% Oint) 1 applic BID TOPICAL 11/17/16 13:30 11/27/16 13:29 11/20/16 09:00 Vancomycin HCl 1000 mg/Sodium Chloride 250 ml @ 250 mls/hr HEALTH SERVICE WORKER IV 11/18/16 10:45 11/22/16 10:44 11/18/16 16:12 Cefazolin Sodium/ Dextrose 50 ml @ 100 mls/hr HEALTH SERVICE WORKER IV 11/18/16 10:45 11/22/16 10:44 (NS Flush) UNSCH PRN IVF 11/18/16 18:00 (Heparin Inj) UNSCH PRN IV FLUSH 11/18/16 18:00 Date of Insertion: Oct 24, 2016 Line: PICC Side: Right A/P Problem List: (1) Pancytopenia ICD Code: D61.818 - Other pancytopenia Status: Acute (2) Pneumonia ICD Code: J18.9 - Pneumonia, unspecified organism Status: Acute (3) 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 Continue chemotherapy (hyperCVAD + Rituxan & Cytarabine). - Patient will continue outpatient chemotherapy. Follow up with oncology - Hematology/Oncology states patient is ready for discharge from hematologic standpoint. Requires readmission in the upcoming 2 weeks for cycle #2/arm B Hyper- CVAD - continue on po Acyclovir and Diflucan prophylaxis Pneumonia: Off antibiotics per infectious disease. DuoNeb as needed. Stable on room air. - ID signed off. Clinically stable on infectious disease standpoint. Hypertension: Continue amlodipine. Vasotec IV as needed. Blood pressure control improved. Tumor lysis syndrome: S/P Rasburicase. Appreciate oncology, nephrology management. Atrial fibrillation with RVR: Appreciate cardiology recommendations.2-D echocardiogram shows ejection fraction 55-60%. Continue oral Cardizem, metoprolol. Acute renal failure: Dialysis per nephrology (M-W-). Adequate UO. s/p HD today. Avoid nephrotoxins. - s/p permacath placement - Patient will need outpatient hemodialysis set up. As per her slicing machine operator/tender , unknown if patient is end-stage renal but will set him up for hemodialysis as an outpatient. - Case management is working on setting him up for [facility] - Spoke with Dr. Galicia, plan to keep the patient to determine whether he would need continued HD or not Poor oral intake: Likely secondary to chemotherapy. Continue Megace. Complaints of decreased appetite. Encouraged. Rash: Has rash on upper back and chest that started 2 days ago. Rash is papular and there is evidence of excoriation. Patient denies chest pain, dyspnea, wheeze. Lungs are clear on exam. - Only new medication is metoprolol, started 11/14/16. Monitor rash. - Was on multiple antibiotics previously broad spectrum coverage which may have caused the reaction. As per ID they will not start any antibiotic for now. - Benadryl available PRN - Hydrocortisone cream BID. - Improving Diarrhea: Was given one time dose of Imodium. Cdiff checked on 11/06/16 which was negative. - No complaints Generalized weakness - Patient has been evaluated by physical therapy and has been working on him. Recommends rolling walker, bedside commode and shower chair for use at home. - Continue with physical therapy until discharge. DVT prophylaxis: Jurgen, KRISTEN sauer. Discussed with patient, nursing, Dr. Dee Problem Qualifiers (1) Pneumonia: (2) Acute lymphocytic leukemia: Qualified Codes: C91.00 - Acute lymphoblastic leukemia not having achieved remission (3) Atrial fibrillation: Nehal Chan Nov 21, 2016 14:04
[2016-11-21 19:00] VITALS: PULSE 95
[2016-11-21 20:00] VITALS: BP 123/59; PULSE 85; RESP 18; TEMP 98; O2SAT 95
[2016-11-21 21:00] VITALS: PULSE 90
[2016-11-22] VITALS (7 sets, daily range): BP systolic 106–155; BP diastolic 59–92; PULSE 76–96; RESP 16–21; TEMP 96.1–99; O2SAT 94–98
[2016-11-22] MEDS: SUCRALFATE 1 GM/10 ML CUP PO SCH ×4 (04:53→20:08)
[2016-11-22] MEDS: PANTOPRAZOLE SODIUM 40 MG VIAL IV PUSH SCH ×2 (04:53→17:31)
[2016-11-22 05:20] LABS: AUTOMATED NEUTROPHIL # 2.9 TH/MM3 (1.8-7.7); BASOPHIL # 0.1 TH/MM3 (0-0.2); BASOPHIL % 1.5 % (0.0-2.0); EOSINOPHIL % 0.9 % (0.0-4.0); LYMPH % 3.6 % (9.0-44.0); LYMPHOCYTE # 0.2 TH/MM3 (1.0-4.8); MEAN CELL VOLUME 91.8 FL (80.0-100.0); MEAN CORPUSCULAR HEMOGLOBIN 30.7 PG (27.0-34.0); MEAN CORPUSCULAR HGB CONC 33.4 % (32.0-36.0); MONO % 31.4 % (0.0-8.0); NEUT % 62.6 % (16.0-70.0); PLATELET COUNT 212 TH/MM3 (150-450); RED BLOOD COUNT 3.05 MIL/MM3 (4.50-5.90); RED CELL DISTRIBUTION WIDTH 15.4 % (11.6-17.2); WHITE BLOOD COUNT 4.6 TH/MM3 (4.0-11.0)
[2016-11-22 05:28] LABS: HEMO FLAGS AUTO DIFF
[2016-11-22 05:52] LABS: BICARBONATE 30.2 MEQ/L (21.0-32.0); POTASSIUM 4.5 MEQ/L (3.5-5.1)
[2016-11-22] MEDS: MUPIROCIN 2% OINT 22 GM TUBE TOPICAL SCH ×2 (09:00→20:11)
[2016-11-22] MEDS: METOPROLOL TARTRATE 25 MG TAB PO SCH ×2 (09:00→20:08)
[2016-11-22] MEDS: HYDROCORTISONE 1% OINT 30 GM TUBE TOPICAL SCH ×2 (09:00→20:11)
[2016-11-22] MEDS: SODIUM CHLORIDE 0.9% FLUSH 10 ML FLUSH IVF SCH (09:00)
[2016-11-22 09:04] LABS: BANDS 9 % (0-6); EOSINOPHILS 1 % (0-4); METAMYELOCYTES 1 % (0-1); MYELOCYTES 1 % (0-0); NEUTROPHIL # MANUAL DIFF 3.2 TH/MM3 (1.8-7.7); POLYS (SEG NEUTROPHILS) 58 % (16-70); WBC DIFF SAMPLE 100
[2016-11-22] MEDS: DILTIAZEM-CD 240 MG CAP ER PO SCH (09:04)
[2016-11-22 09:05] LABS: PLATELET ESTIMATE SMEAR NORMAL (NORMAL); PLATELET MORPHOLOGY NORMAL (NORMAL); SCAN/DIFF FINAL DIFF MANUAL; TOXIC GRANULATION 1+ (NORMAL)
[2016-11-22] MEDS: ALLOPURINOL 100 MG TAB PO SCH (09:05)
[2016-11-22] MEDS: BUMETANIDE INJ 1 MG/4 ML VIAL IV PUSH SCH (09:05)
[2016-11-22] MEDS: SIMETHICONE 80 MG CHEWABLE TAB CHEW SCH ×4 (09:05→20:08)
[2016-11-22] MEDS: LACTOBACILLUS ACIDOPHILUS TAB PO SCH ×3 (09:05→17:31)
[2016-11-22] MEDS: MEGESTROL ACETATE SUSP 400 MG/10 ML CUP PO SCH (09:05)
[2016-11-22] MEDS: CALCIUM/VITAMIN D 250 MG/125 U TAB PO SCH ×2 (09:05→20:08)
--- NOTE | 2016-11-22 09:06 | PD.ONC.PN ---
Subjective Subjective Remarks Afebrile "I feel pretty good today" No acute complaints Objective Data Date Time Temp Pulse Resp B/P (MAP) Pulse Ox O2 Delivery O2 Flow Rate FiO2 11/22/16 04:00 97.8 76 16 131/62 (85) 95 11/22/16 00:00 98.6 83 18 130/63 (85) 95 11/21/16 21:00 90 11/21/16 20:00 98.0 85 18 123/59 (80) 95 11/21/16 19:00 95 11/21/16 12:00 97.3 82 16 144/69 (94) 97 11/22/16 11/22/16 11/22/16 07:00 15:00 23:00 Intake Total 500 ml Output Total 600 ml Balance -100 ml Result Diagram: 11/22/16 0455 11/22/16 0455 Laboratory Results Laboratory Tests Test 11/22/16 04:55 White Blood Count 4.6 TH/MM3 Red Blood Count 3.05 MIL/MM3 Hemoglobin 9.4 GM/DL Hematocrit 28.0 % Mean Corpuscular Volume 91.8 FL Mean Corpuscular Hemoglobin 30.7 PG Mean Corpuscular Hemoglobin Concent 33.4 % Red Cell Distribution Width 15.4 % Platelet Count 212 TH/MM3 Mean Platelet Volume 7.2 FL Neutrophils (%) (Auto) 62.6 % Lymphocytes (%) (Auto) 3.6 % Monocytes (%) (Auto) 31.4 % Eosinophils (%) (Auto) 0.9 % Basophils (%) (Auto) 1.5 % Neutrophils # (Auto) 2.9 TH/MM3 Lymphocytes # (Auto) 0.2 TH/MM3 Monocytes # (Auto) 1.4 TH/MM3 Eosinophils # (Auto) 0.0 TH/MM3 Basophils # (Auto) 0.1 TH/MM3 CBC Comment AUTO DIFF Blood Urea Nitrogen 31 MG/DL Creatinine 3.98 MG/DL Random Glucose 88 MG/DL Calcium Level 8.0 MG/DL Sodium Level 137 MEQ/L Potassium Level 4.5 MEQ/L Chloride Level 98 MEQ/L Carbon Dioxide Level 30.2 MEQ/L Anion Gap 9 MEQ/L Estimat Glomerular Filtration Rate 15 ML/MIN Administered Medications Medications (Trade) Dose Ordered Sig/Daniel Route PRN Reason Start Time Stop Time Status Last Admin Dose Admin Sodium Chloride (NS Flush) 2 ml UNSCH PRN IV FLUSH FLUSH AFTER USING IV ACCESS 10/24/16 01:45 11/18/16 06:02 Sodium Chloride (NS Flush) 2 ml BID IV FLUSH 10/24/16 09:00 11/21/16 20:24 Sodium Chloride (NS Flush) DAILY IVF 10/25/16 09:00 11/17/16 15:05 Heparin Sodium (Porcine) (Heparin Central Flush) DAILY IV FLUSH 10/25/16 09:00 11/18/16 06:03 Sodium Chloride (NS Flush) 2 ml UNSCH PRN IVF SEE PROTOCOL 10/24/16 13:15 11/16/16 09:28 Lactobacillus Acidophilus (Lactinex) 1 tab TID PO 10/24/16 18:00 11/21/16 17:11 Miscellaneous (Pill Splitter) 1 ea UNSCH PRN OTHER SEE LABEL COMMENTS 10/30/16 06:45 10/30/16 06:36 Sodium Chloride 1,000 ml @ 0 mls/hr Q0M PRN IV For Prime & Rinse Back 10/30/16 08:47 11/12/16 14:00 Heparin Sodium (Porcine) (Heparin Inj) 8,000 units UNSCH PRN IVF WITH DIALYSIS 10/30/16 09:00 11/19/16 15:27 Sodium Chloride (NS Flush) 5 ml UNSCH PRN IV FLUSH WITH DIALYSIS 10/30/16 09:00 11/18/16 06:02 Heparin Sodium (Porcine) (Heparin Inj) UNSCH PRN .XX WITH DIALYSIS 10/30/16 09:00 11/21/16 11:03 Gentamicin Sulfate (Gentamicin (Dialysis) Inj) 20 mg UNSCH PRN IV WITH DIALYSIS 10/30/16 09:00 11/21/16 11:03 Ondansetron HCl (Zofran Inj) 4 mg UNSCH PRN IV WITH DIALYSIS 10/30/16 09:00 11/03/16 23:59 Acetaminophen (Tylenol) 650 mg UNSCH PRN PO for headach, pain, temp > 101F 10/30/16 09:00 11/07/16 23:21 Diphenhydramine HCl (Benadryl) 25 mg UNSCH PRN PO for hives/itching/anaphylaxis 10/30/16 09:00 11/17/16 02:42 Mupirocin (Bactroban 2% Oint) 1 applic Q12HR TOPICAL 11/01/16 21:00 11/20/16 09:00 Allopurinol (Zyloprim) 200 mg DAILY PO 11/02/16 09:00 11/21/16 12:56 Ondansetron HCl (Zofran Inj) 4 mg Q6H PRN IV PUSH nausea 11/04/16 08:45 11/11/16 20:57 Simethicone (Mylicon Chew) 80 mg PCHS CHEW 11/04/16 10:30 11/21/16 20:24 Calcium/Vitamin D (Oscal-D 250-125) 500 mg Q12HR PO 11/07/16 21:00 11/21/16 20:19 Hydromorphone HCl (Dilaudid Pf Inj) 1 mg Q3H PRN IV PAIN 6-10 11/08/16 16:45 11/09/16 06:36 Sucralfate (Carafate Liq) 1 gm ACHS PO 11/08/16 21:00 11/22/16 04:53 Pantoprazole Sodium (Protonix Inj) 40 mg Q12H IV PUSH 11/08/16 17:45 11/22/16 04:53 Diphenhydramine HCl (Benadryl) 25 mg Q4H PRN PO SEE LABEL COMMENTS 11/10/16 07:30 11/12/16 13:00 Megestrol Acetate (Megace Liq) 400 mg DAILY PO 11/11/16 09:00 11/21/16 12:57 Bumetanide (Bumex Inj) 2 mg DAILY IV PUSH 11/12/16 09:00 11/21/16 12:56 Metoprolol Tartrate (Lopressor) 25 mg Q12HR PO 11/14/16 09:00 11/21/16 20:19 Diltiazem HCl (Cardizem Cd) 240 mg DAILY PO 11/14/16 09:00 11/21/16 12:56 Loperamide HCl (Imodium) 2 mg Q4H PRN PO diarrhea 11/15/16 23:30 11/15/16 23:37 Hydrocortisone (Nutracort 1% Oint) 1 applic BID TOPICAL 11/17/16 13:30 11/27/16 13:29 11/20/16 09:00 Vancomycin HCl 1000 mg/Sodium Chloride 250 ml @ 250 mls/hr NETSUITE DEVELOPER IV 11/18/16 10:45 11/22/16 10:44 11/18/16 16:12 Objective Remarks GENERAL: Elderly pleasant male sitting up on side of bed eating breakfast in no acute distress SKIN: Warm and dry. HEAD: Normocephalic. EYES: No injection or drainage. NECK: Supple, trachea midline. Perma-cath in place, right chest wall CARDIOVASCULAR: Regular rate and rhythm RESPIRATORY: Breath sounds equal bilaterally. No accessory muscle use. GASTROINTESTINAL: Abdomen soft, non-tender, nondistended. EXTREMITIES: No cyanosis. No edema MUSCULOSKELETAL: Adequate muscle tone. NEUROLOGICAL: awake and alert, normal speech. moving all extremities. Assessment/Plan Problem List: (1) Acute lymphocytic leukemia ICD Codes: C91.00 - Acute lymphoblastic leukemia not having achieved remission Status: Acute Plan: 11/22: Pt doing well and counts mostly recovered. Plan to give cycle #2 of arm B Hyper CVAD in 2 weeks. -- Status post induction systemic therapy with hyper-CVAD with Rituxan. 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 S/p C1 Hyper-CVAD + R. -- Complicated by TLS and ARF requiring HD for this. -- He is ready for discharge from a hematologic standpoint. -- He will need to be set up with outpatient dialysis prior to discharge from a renal standpoint. 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 S/p cycle 1 Hyper-CVAD + Rituxan and IT cytarabine. Attending Statement anxious to go home ARF due to TLS, on HD HD can be arrange as outpt Ok to d/c from hematlogical standpoint. The exam, history, and the medical decision-making described in the above note were completed with the assistance of the mid-level provider. I reviewed and agree with the findings presented. I attest that I had a [id number] encounter with the patient on the same day, and personally performed and documented my assessment and findings in the medical record. Problem Qualifiers (1) Acute lymphocytic leukemia: Qualified Codes: C91.00 - Acute lymphoblastic leukemia not having achieved remission Imelda Michaels Nov 22, 2016 09:06 Tobi Chu MD Nov 22, 2016 18:34
[2016-11-22] MEDS: SODIUM CHLORIDE 0.9% FLUSH 10 ML FLUSH IV FLUSH SCH ×2 (09:07→20:10)
--- NOTE | 2016-11-22 12:58 | HHI.PR ---
Subjective Remarks No chest pain, no short of breath, no fever or chills, cleared by oncology however he is on hemodialysis nephrology following for further recommendation Objective Vitals Vital Signs Date Time Temp Pulse Resp B/P (MAP) Pulse Ox O2 Delivery O2 Flow Rate FiO2 11/22/16 08:00 97.2 96 21 155/92 (113) 94 11/22/16 04:00 97.8 76 16 131/62 (85) 95 11/22/16 00:00 98.6 83 18 130/63 (85) 95 11/21/16 21:00 90 11/21/16 20:00 98.0 85 18 123/59 (80) 95 11/21/16 19:00 95 I/O 11/21/16 11/21/16 11/21/16 11/22/16 11/22/16 11/22/16 06:59 14:59 22:59 06:59 14:59 22:59 Intake Total 240 ml 234 ml 240 ml 500 ml Output Total 300 ml 2925 ml 80 ml 600 ml Balance -60 ml -2691 ml 160 ml -100 ml Intake Oral 240 ml 234 ml 240 ml 500 ml Output Urine Total 300 ml 925 ml 80 ml 600 ml Hemodialysis 2000 ml Result Diagram: 11/22/16 0455 11/22/16 0455 Objective Remarks GENERAL: This is a well-nourished, well-developed patient, in no apparent distress. Lying in hospital bed. Sleeping but easily awakens to voice. Appears comfortable. SKIN: Warm and dry. Erythematous macupapular rash throughout trunk and back area, bilateral side of the abdomen - improving HEENT: Normocephalic. Pupils equal round and reactive. Nose without bleeding. Airway patent. NECK: Trachea midline. Supple. CARDIOVASCULAR: Regular rate and rhythm without murmurs, gallops, or rubs. RESPIRATORY: Diminished bases. No wheezes, rales, or rhonchi. GASTROINTESTINAL: Abdomen soft, non-tender, nondistended. Bowel Sounds normoactive x4. MUSCULOSKELETAL: Extremities without clubbing, cyanosis, BLE trace edema. NEUROLOGICAL: Awake and alert. Oriented to time, place, person. No focal neuro deficit. Moves all extremities. Normal speech. 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 having achieved remission Status: Acute (4) Hypertension ICD Code: I10 - Essential (primary) hypertension Status: Chronic (5) Acute renal failure ICD Code: N17.9 - Acute kidney failure, unspecified (6) Tumor lysis syndrome ICD Code: E88.3 - Tumor lysis syndrome (7) Atrial fibrillation ICD Code: I48.91 - Unspecified atrial fibrillation Status: Acute Assessment and Plan 11/22: Continue monitoring BMP, continue on hemodialysis until deciding if patient will have extermination supervisor need HD, if so he will need arrangement for outpatient hemodialysis, considering the special weather circumstances ( [place]) patient will be here until Thursday or Thursday 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 Continue chemotherapy (hyperCVAD + Rituxan & Cytarabine). - Patient will continue outpatient chemotherapy. Follow up with oncology - Hematology/Oncology states patient is ready for discharge from hematologic standpoint. Requires readmission in the upcoming 2 weeks for cycle #2/arm B Hyper- CVAD - continue on po Acyclovir and Diflucan prophylaxis Pneumonia: Off antibiotics per infectious disease. DuoNeb as needed. Stable on room air. - ID signed off. Clinically stable on infectious disease standpoint. Hypertension: Continue amlodipine. Vasotec IV as needed. Blood pressure control improved. Tumor lysis syndrome: S/P Rasburicase. Appreciate oncology, nephrology management. Atrial fibrillation with RVR: Appreciate cardiology recommendations.2-D echocardiogram shows ejection fraction 55-60%. Continue oral Cardizem, metoprolol. Acute renal failure: Dialysis per nephrology (M-W-). Adequate UO. . Avoid nephrotoxins. - s/p permacath placement - Patient will need outpatient hemodialysis set up. As per her sea shell gatherer , unknown if patient is end-stage renal but will set him up for hemodialysis as an outpatient. - Case management is working on setting him up for [facility] -Per Dr. Galicia, plan to keep the patient to determine whether he would need continued HD or not Poor oral intake: Likely secondary to chemotherapy. Continue Megace. Complaints of decreased appetite. Encouraged. Rash: Has rash on upper back and chest that started 2 days ago. Rash is papular and there is evidence of excoriation. Patient denies chest pain, dyspnea, wheeze. Lungs are clear on exam. - Only new medication is metoprolol, started 11/14/16. Monitor rash. - Was on multiple antibiotics previously broad spectrum coverage which may have caused the reaction. As per ID they will not start any antibiotic for now. - Benadryl available PRN - Hydrocortisone cream BID. - Improving Diarrhea: Was given one time dose of Imodium. Cdiff checked on 11/06/16 which was negative. - No complaints Generalized weakness - Patient has been evaluated by physical therapy and has been working on him. Recommends rolling walker, bedside commode and shower chair for use at home. - Continue with physical therapy until discharge. DVT prophylaxis: Jurgen, KRISTEN sauer. Problem Qualifiers (1) Pneumonia: (2) Acute lymphocytic leukemia: Qualified Codes: C91.00 - Acute lymphoblastic leukemia not having achieved remission (3) Atrial fibrillation: Elin Mcleod MD Nov 22, 2016 12:58
--- NOTE | 2016-11-22 16:36 | HHI.NPPN ---
Subjective General Problems: Anemia, Edema, Hypertension Renal Failure: Acute Review of Systems General Constitutional: Fatigue Respiratory Lungs: SOB Cardiovascular Cardiac: Edema Gastrointestinal GI Remarks loss of appetite Objective Data Data Vital Signs Date Time Temp Pulse Resp B/P (MAP) Pulse Ox O2 Delivery O2 Flow Rate FiO2 11/22/16 16:32 97.3 80 21 121/60 (80) 98 11/22/16 12:00 96.1 89 20 109/59 (76) 94 11/22/16 08:00 97.2 96 21 155/92 (113) 94 11/22/16 04:00 97.8 76 16 131/62 (85) 95 11/22/16 00:00 98.6 83 18 130/63 (85) 95 11/21/16 21:00 90 11/21/16 20:00 98.0 85 18 123/59 (80) 95 11/21/16 19:00 95 -: 11/22/16 0455 11/22/16 0455 Tubes & Lines: Perma-Cath Physical Exam General Appearance: Well Developed, Well Nourished, No Acute Distress, Comfortable Eyes Eye Exam: Pupils Equal, Pupils Reactive Throat Throat Exam: Oral Mucosa [place] & Moist Neck Neck Exam: Neck Supple Pulmonary Resp Exam: Clear Bilaterally, Breath Sounds Equal, No Distress Cardiology CV Exam: Regular, Normal Sinus Rhythm, Good Perfusion Gastrointestinal/Abdomen GI Exam: Soft, Non-Tender, Bowel Sounds Present, Positive Bowel Movement Musculoskeletal MS Exam: Joints Intact, Normal Gait, Normal Tone Integumentary Skin Exam: Clear, Warm, Dry, Intact Extremeties Extremities Exam: Pitting Edema Neurologic Neuro Exam: Alert, Awake, Oriented Psychiatric Psych Exam: Appropriate Responses Assessment/Plan Discussed Condition With: Patient Assessment Summary: FAIZA/Acute Renal Failure, Hypertension Electrolyte Assessment: Hypocalcemia Problem List: (1) Acute kidney injury ICD Codes: N17.9 - Acute kidney failure, unspecified Status: Acute Plan: 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 Non oliguric, but he has been on dialysis MWF since 10/30 Cr declined post dialysis stable s/p PermCath placement. obtain daily labs, monitor renal function. 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 (3) Hypocalcemia ICD Codes: E83.51 - Hypocalcemia Status: Acute Plan: improved, monitor (4) Pancytopenia ICD Codes: D61.818 - Other pancytopenia Status: Acute Plan: Resolved. 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 Monitor. Problem Qualifiers (1) Acute lymphocytic leukemia: Qualified Codes: C91.00 - Acute lymphoblastic leukemia not having achieved remission Kyle Rice MD Nov 22, 2016 16:36
[2016-11-23] VITALS (10 sets, daily range): BP systolic 114–143; BP diastolic 58–83; PULSE 67–89; RESP 16–18; TEMP 96.2–99.4; O2SAT 95–97
[2016-11-23] MEDS: PANTOPRAZOLE SODIUM 40 MG VIAL IV PUSH SCH ×2 (06:15→16:30)
[2016-11-23] MEDS: SUCRALFATE 1 GM/10 ML CUP PO SCH ×3 (06:15→16:29)
--- NOTE | 2016-11-23 08:22 | PD.ONC.PN ---
Subjective Subjective Remarks Afebrile overnight Patient on the phone ordering breakfast Only complaint is boredom from being in the hospital Objective Data Date Time Temp Pulse Resp B/P (MAP) Pulse Ox O2 Delivery O2 Flow Rate FiO2 11/23/16 04:00 99.4 70 16 128/61 (83) 97 11/23/16 00:00 97.8 89 18 130/74 (92) 96 11/22/16 21:00 82 11/22/16 20:06 99.0 90 19 106/67 (80) 96 11/22/16 16:32 97.3 80 21 121/60 (80) 98 11/22/16 12:00 96.1 89 20 109/59 (76) 94 11/23/16 11/23/16 11/23/16 07:00 15:00 23:00 Intake Total 250 ml Output Total 600 ml Balance -350 ml Result Diagram: 11/22/16 0455 11/22/16 0455 Administered Medications Medications (Trade) Dose Ordered Sig/Daniel Route PRN Reason Start Time Stop Time Status Last Admin Dose Admin Sodium Chloride (NS Flush) 2 ml UNSCH PRN IV FLUSH FLUSH AFTER USING IV ACCESS 10/24/16 01:45 11/18/16 06:02 Sodium Chloride (NS Flush) 2 ml BID IV FLUSH 10/24/16 09:00 11/22/16 20:10 Sodium Chloride (NS Flush) DAILY IVF 10/25/16 09:00 11/17/16 15:05 Heparin Sodium (Porcine) (Heparin Central Flush) DAILY IV FLUSH 10/25/16 09:00 11/22/16 09:07 Sodium Chloride (NS Flush) 2 ml UNSCH PRN IVF SEE PROTOCOL 10/24/16 13:15 11/16/16 09:28 Lactobacillus Acidophilus (Lactinex) 1 tab TID PO 10/24/16 18:00 11/22/16 17:31 Miscellaneous (Pill Splitter) 1 ea UNSCH PRN OTHER SEE LABEL COMMENTS 10/30/16 06:45 10/30/16 06:36 Sodium Chloride 1,000 ml @ 0 mls/hr Q0M PRN IV For Prime & Rinse Back 10/30/16 08:47 11/12/16 14:00 Heparin Sodium (Porcine) (Heparin Inj) 8,000 units UNSCH PRN IVF WITH DIALYSIS 10/30/16 09:00 11/19/16 15:27 Sodium Chloride (NS Flush) 5 ml UNSCH PRN IV FLUSH WITH DIALYSIS 10/30/16 09:00 11/18/16 06:02 Heparin Sodium (Porcine) (Heparin Inj) UNSCH PRN .XX WITH DIALYSIS 10/30/16 09:00 11/21/16 11:03 Gentamicin Sulfate (Gentamicin (Dialysis) Inj) 20 mg UNSCH PRN IV WITH DIALYSIS 10/30/16 09:00 11/21/16 11:03 Ondansetron HCl (Zofran Inj) 4 mg UNSCH PRN IV WITH DIALYSIS 10/30/16 09:00 11/03/16 23:59 Acetaminophen (Tylenol) 650 mg UNSCH PRN PO for headach, pain, temp > 101F 10/30/16 09:00 11/07/16 23:21 Diphenhydramine HCl (Benadryl) 25 mg UNSCH PRN PO for hives/itching/anaphylaxis 10/30/16 09:00 11/17/16 02:42 Mupirocin (Bactroban 2% Oint) 1 applic Q12HR TOPICAL 11/01/16 21:00 11/20/16 09:00 Allopurinol (Zyloprim) 200 mg DAILY PO 11/02/16 09:00 11/22/16 09:05 Ondansetron HCl (Zofran Inj) 4 mg Q6H PRN IV PUSH nausea 11/04/16 08:45 11/11/16 20:57 Simethicone (Mylicon Chew) 80 mg PCHS CHEW 11/04/16 10:30 11/22/16 20:08 Calcium/Vitamin D (Oscal-D 250-125) 500 mg Q12HR PO 11/07/16 21:00 11/22/16 20:08 Hydromorphone HCl (Dilaudid Pf Inj) 1 mg Q3H PRN IV PAIN 6-10 11/08/16 16:45 11/09/16 06:36 Sucralfate (Carafate Liq) 1 gm ACHS PO 11/08/16 21:00 11/23/16 06:15 Pantoprazole Sodium (Protonix Inj) 40 mg Q12H IV PUSH 11/08/16 17:45 11/23/16 06:15 Diphenhydramine HCl (Benadryl) 25 mg Q4H PRN PO SEE LABEL COMMENTS 11/10/16 07:30 11/12/16 13:00 Megestrol Acetate (Megace Liq) 400 mg DAILY PO 11/11/16 09:00 11/22/16 09:05 Bumetanide (Bumex Inj) 2 mg DAILY IV PUSH 11/12/16 09:00 11/22/16 09:05 Metoprolol Tartrate (Lopressor) 25 mg Q12HR PO 11/14/16 09:00 11/22/16 20:08 Diltiazem HCl (Cardizem Cd) 240 mg DAILY PO 11/14/16 09:00 11/22/16 09:04 Loperamide HCl (Imodium) 2 mg Q4H PRN PO diarrhea 11/15/16 23:30 11/15/16 23:37 Hydrocortisone (Nutracort 1% Oint) 1 applic BID TOPICAL 11/17/16 13:30 11/27/16 13:29 11/20/16 09:00 Objective Remarks GENERAL: Elderly pleasant male resting in bed in no acute distress SKIN: Warm and dry. Perma-cath in place, right chest wall. HEAD: Normocephalic. EYES: No injection or drainage. NECK: Supple, trachea midline. CARDIOVASCULAR: Regular rate and rhythm RESPIRATORY: Breath sounds equal bilaterally. No accessory muscle use. GASTROINTESTINAL: Abdomen soft, non-tender, nondistended. EXTREMITIES: No cyanosis. No edema MUSCULOSKELETAL: Adequate muscle tone. NEUROLOGICAL: awake and alert, normal speech. moving all extremities. 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 Monitor periodic CBC. -- Status post induction systemic therapy with hyper-CVAD with Rituxan. 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 S/p C1 Hyper-CVAD + R. -- Complicated by TLS and ARF requiring HD for this. -- He is ready for discharge from a hematologic standpoint. -- He will need to be set up with outpatient dialysis prior to discharge from a renal standpoint. 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 S/p cycle 1 Hyper-CVAD + Rituxan and IT cytarabine. Attending Statement no c/o offer Wants to go home. Blood counts have recovered. Check BMP today and tomorrow. OK to d/c from my standpoint. Disposition per Hepas and Renal. The exam, history, and the medical decision-making described in the above note were completed with the assistance of the mid-level provider. I reviewed and agree with the findings presented. I attest that I had a [id number] encounter with the patient on the same day, and personally performed and documented my assessment and findings in the medical record. Problem Qualifiers (1) Acute lymphocytic leukemia: Qualified Codes: C91.00 - Acute lymphoblastic leukemia not having achieved remission Imelda Michaels Nov 23, 2016 08:22 Tobi Chu MD Nov 23, 2016 10:36
[2016-11-23] MEDS: ALLOPURINOL 100 MG TAB PO SCH (08:49)
[2016-11-23] MEDS: DILTIAZEM-CD 240 MG CAP ER PO SCH (08:49)
[2016-11-23] MEDS: SIMETHICONE 80 MG CHEWABLE TAB CHEW SCH ×4 (08:49→22:33)
[2016-11-23] MEDS: LACTOBACILLUS ACIDOPHILUS TAB PO SCH ×3 (08:50→16:29)
[2016-11-23] MEDS: METOPROLOL TARTRATE 25 MG TAB PO SCH ×2 (08:50→22:33)
[2016-11-23] MEDS: CALCIUM/VITAMIN D 250 MG/125 U TAB PO SCH ×2 (08:50→22:32)
[2016-11-23] MEDS: SODIUM CHLORIDE 0.9% FLUSH 10 ML FLUSH IV FLUSH SCH ×2 (08:51→21:00)
[2016-11-23] MEDS: BUMETANIDE INJ 1 MG/4 ML VIAL IV PUSH SCH (08:51)
[2016-11-23] MEDS: SODIUM CHLORIDE 0.9% FLUSH 10 ML FLUSH IVF SCH (08:55)
[2016-11-23] MEDS: MEGESTROL ACETATE SUSP 400 MG/10 ML CUP PO SCH (08:56)
[2016-11-23] MEDS: HYDROCORTISONE 1% OINT 30 GM TUBE TOPICAL SCH ×2 (08:56→21:00)
[2016-11-23] MEDS: MUPIROCIN 2% OINT 22 GM TUBE TOPICAL SCH ×2 (08:56→21:00)
--- NOTE | 2016-11-23 10:52 | HHI.NPPN ---
Subjective General Problems: Anemia, Edema, Hypertension Renal Failure: Acute Review of Systems General Constitutional: Fatigue Respiratory Lungs: SOB Cardiovascular Cardiac: Edema Gastrointestinal GI Remarks loss of appetite Objective Data Data Vital Signs Date Time Temp Pulse Resp B/P (MAP) Pulse Ox O2 Delivery O2 Flow Rate FiO2 11/23/16 08:00 96.2 86 18 143/63 (89) 95 11/23/16 04:00 99.4 70 16 128/61 (83) 97 11/23/16 00:00 97.8 89 18 130/74 (92) 96 11/22/16 21:00 82 11/22/16 20:06 99.0 90 19 106/67 (80) 96 11/22/16 16:32 97.3 80 21 121/60 (80) 98 11/22/16 12:00 96.1 89 20 109/59 (76) 94 -: 11/22/16 0455 11/22/16 0455 Tubes & Lines: Perma-Cath Physical Exam General Appearance: Well Developed, Well Nourished, No Acute Distress, Comfortable Eyes Eye Exam: Pupils Equal, Pupils Reactive Throat Throat Exam: Oral Mucosa [place] & Moist Neck Neck Exam: Neck Supple Pulmonary Resp Exam: Clear Bilaterally, Breath Sounds Equal, No Distress Cardiology CV Exam: Regular, Normal Sinus Rhythm, Good Perfusion Gastrointestinal/Abdomen GI Exam: Soft, Non-Tender, Bowel Sounds Present, Positive Bowel Movement Musculoskeletal MS Exam: Joints Intact, Normal Gait, Normal Tone Integumentary Skin Exam: Clear, Warm, Dry, Intact Extremeties Extremities Exam: Pitting Edema Neurologic Neuro Exam: Alert, Awake, Oriented Psychiatric Psych Exam: Appropriate Responses Assessment/Plan Discussed Condition With: Patient Assessment Summary: FAIZA/Acute Renal Failure, Hypertension Electrolyte Assessment: Hypocalcemia Problem List: (1) Acute kidney injury ICD Codes: N17.9 - Acute kidney failure, unspecified Status: Acute Plan: 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 Non oliguric, but he has been on dialysis MWF since 10/30 Cr declined post dialysis stable s/p PermCath placement. obtain daily labs, monitor renal function. Continue HD if needed check BMP in am Dr. 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 (3) Hypocalcemia ICD Codes: E83.51 - Hypocalcemia Status: Acute Plan: improved, monitor (4) Pancytopenia ICD Codes: D61.818 - Other pancytopenia Status: Acute Plan: Resolved. 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 Monitor. Problem Qualifiers (1) Acute lymphocytic leukemia: Qualified Codes: C91.00 - Acute lymphoblastic leukemia not having achieved remission Kyle Rice MD Nov 23, 2016 10:52
[2016-11-23 11:48] LABS: BICARBONATE 26.2 MEQ/L (21.0-32.0); POTASSIUM 4.1 MEQ/L (3.5-5.1)
--- NOTE | 2016-11-23 16:38 | HHI.PR ---
Subjective Remarks No acute events overnight, no fever or chills or short of breath Resting comfortably in bed Discussed with oncology they are clear from their standpoint, nephrology is following for hemodialysis Objective Vitals Vital Signs Date Time Temp Pulse Resp B/P (MAP) Pulse Ox O2 Delivery O2 Flow Rate FiO2 11/23/16 12:00 98.3 79 18 138/63 (88) 96 11/23/16 08:00 96.2 86 18 143/63 (89) 95 11/23/16 04:00 99.4 70 16 128/61 (83) 97 11/23/16 00:00 97.8 89 18 130/74 (92) 96 11/22/16 21:00 82 11/22/16 20:06 99.0 90 19 106/67 (80) 96 I/O 11/22/16 11/22/16 11/22/16 11/23/16 11/23/16 11/23/16 06:59 14:59 22:59 06:59 14:59 22:59 Intake Total 500 ml 500 ml 250 ml 600 ml Output Total 600 ml 825 ml 600 ml 250 ml 200 ml Balance -100 ml -325 ml -350 ml -250 ml 400 ml Intake Oral 500 ml 500 ml 250 ml 600 ml Output Urine Total 600 ml 825 ml 600 ml 250 ml 200 ml # Voids 1 Result Diagram: 11/22/16 0455 11/23/16 1045 Objective Remarks GENERAL: This is a well-nourished, well-developed patient, in no apparent distress. Lying in hospital bed. Sleeping but easily awakens to voice. Appears comfortable. SKIN: Warm and dry. Erythematous macupapular rash throughout trunk and back area, bilateral side of the abdomen - improving HEENT: Normocephalic. Pupils equal round and reactive. Nose without bleeding. Airway patent. NECK: Trachea midline. Supple. CARDIOVASCULAR: Regular rate and rhythm without murmurs, gallops, or rubs. RESPIRATORY: Diminished bases. No wheezes, rales, or rhonchi. GASTROINTESTINAL: Abdomen soft, non-tender, nondistended. Bowel Sounds normoactive x4. MUSCULOSKELETAL: Extremities without clubbing, cyanosis, BLE trace edema. NEUROLOGICAL: Awake and alert. Oriented to time, place, person. No focal neuro deficit. Moves all extremities. Normal speech. 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 having achieved remission Status: Acute (4) Hypertension ICD Code: I10 - Essential (primary) hypertension Status: Chronic (5) Acute renal failure ICD Code: N17.9 - Acute kidney failure, unspecified (6) Tumor lysis syndrome ICD Code: E88.3 - Tumor lysis syndrome (7) Atrial fibrillation ICD Code: I48.91 - Unspecified atrial fibrillation Status: Acute Assessment and Plan 11/22: Continue monitoring BMP, continue on hemodialysis until deciding if patient will have 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 Continue chemotherapy (hyperCVAD + Rituxan & Cytarabine). - Patient will continue outpatient chemotherapy. Follow up with oncology - Hematology/Oncology states patient is ready for discharge from hematologic standpoint. Requires readmission in the upcoming 2 weeks for cycle #2/arm B Hyper- CVAD - continue on po Acyclovir and Diflucan prophylaxis Pneumonia: Off antibiotics per infectious disease. DuoNeb as needed. Stable on room air. - ID signed off. Clinically stable on infectious disease standpoint. Hypertension: Continue amlodipine. Vasotec IV as needed. Blood pressure control improved. Tumor lysis syndrome: S/P Rasburicase. Appreciate oncology, nephrology management. Atrial fibrillation with RVR: Appreciate cardiology recommendations.2-D echocardiogram shows ejection fraction 55-60%. Continue oral Cardizem, metoprolol. Acute renal failure: Dialysis per nephrology (M-W-). Adequate UO. . Avoid nephrotoxins. - s/p permacath placement - Patient will need outpatient hemodialysis set up. As per her floor manager , unknown if patient is end-stage renal but will set him up for hemodialysis as an outpatient. - Case management is working on setting him up for [facility] -Per Dr. Galicia, plan to keep the patient to determine whether he would need continued HD or not Poor oral intake: Likely secondary to chemotherapy. Continue Megace. Complaints of decreased appetite. Encouraged. Rash: Has rash on upper back and chest that started 2 days ago. Rash is papular and there is evidence of excoriation. Patient denies chest pain, dyspnea, wheeze. Lungs are clear on exam. - Only new medication is metoprolol, started 11/14/16. Monitor rash. - Was on multiple antibiotics previously broad spectrum coverage which may have caused the reaction. As per ID they will not start any antibiotic for now. - Benadryl available PRN - Hydrocortisone cream BID. - Improving Diarrhea: Was given one time dose of Imodium. Cdiff checked on 11/06/16 which was negative. - No complaints Generalized weakness - Patient has been evaluated by physical therapy and has been working on him. Recommends rolling walker, bedside commode and shower chair for use at home. - Continue with physical therapy until discharge. DVT prophylaxis: BETHs, KRISTEN sauer. Problem Qualifiers (1) Pneumonia: (2) Acute lymphocytic leukemia: Qualified Codes: C91.00 - Acute lymphoblastic leukemia not having achieved remission (3) Atrial fibrillation: Elin Mcleod MD Nov 23, 2016 16:37
[2016-11-24] VITALS (13 sets, daily range): BP systolic 100–127; BP diastolic 52–72; PULSE 78–110; RESP 16–18; TEMP 97–99.8; O2SAT 95–98
[2016-11-24] MEDS: SUCRALFATE 1 GM/10 ML CUP PO SCH ×5 (00:28→22:59)
[2016-11-24] MEDS: PANTOPRAZOLE SODIUM 40 MG VIAL IV PUSH SCH ×2 (05:03→17:32)
[2016-11-24 06:27] LABS: BICARBONATE 24.2 MEQ/L (21.0-32.0); POTASSIUM 4.3 MEQ/L (3.5-5.1)
[2016-11-24] MEDS: MEGESTROL ACETATE SUSP 400 MG/10 ML CUP PO SCH (09:00)
[2016-11-24] MEDS: MUPIROCIN 2% OINT 22 GM TUBE TOPICAL SCH ×2 (09:00→21:00)
[2016-11-24] MEDS: SODIUM CHLOR 0.9% 1000 ML INJ 1,000 ML IV PRN (10:08)
[2016-11-24] MEDS: SODIUM CHLORIDE 0.9% FLUSH 10 ML FLUSH IV FLUSH PRN (10:09)
[2016-11-24] MEDS: HEPARIN SODIUM - IV 10,000 UNITS/10 ML VIAL PRN (10:09)
[2016-11-24] MEDS: GENTAMICIN SULFATE (DIALYSIS USE ONLY) 20 MG/2 ML VIAL IV PRN (10:09)
[2016-11-24] MEDS: SIMETHICONE 80 MG CHEWABLE TAB CHEW SCH ×4 (12:43→21:20)
[2016-11-24] MEDS: HYDROCORTISONE 1% OINT 30 GM TUBE TOPICAL SCH ×2 (12:44→21:22)
[2016-11-24] MEDS: METOPROLOL TARTRATE 25 MG TAB PO SCH ×2 (12:44→21:20)
[2016-11-24] MEDS: ALLOPURINOL 100 MG TAB PO SCH (12:44)
[2016-11-24] MEDS: LACTOBACILLUS ACIDOPHILUS TAB PO SCH ×3 (12:44→17:32)
[2016-11-24] MEDS: DILTIAZEM-CD 240 MG CAP ER PO SCH (12:44)
[2016-11-24] MEDS: CALCIUM/VITAMIN D 250 MG/125 U TAB PO SCH ×2 (12:45→21:20)
[2016-11-24] MEDS: BUMETANIDE INJ 1 MG/4 ML VIAL IV PUSH SCH (12:45)
[2016-11-24] MEDS: SODIUM CHLORIDE 0.9% FLUSH 10 ML FLUSH IV FLUSH SCH ×2 (12:45→21:22)
[2016-11-24] MEDS: SODIUM CHLORIDE 0.9% FLUSH 10 ML FLUSH IVF SCH (12:46)
--- NOTE | 2016-11-24 14:06 | HHI.PR ---
Subjective Remarks patient feeling tired after hemodialysis He reported recurrent pruritic macular rash on the trunk and buttocks Objective Vitals Vital Signs Date Time Temp Pulse Resp B/P (MAP) Pulse Ox O2 Delivery O2 Flow Rate FiO2 11/24/16 12:26 110 11/24/16 12:00 97.0 99 18 125/72 (89) 98 11/24/16 11:00 96 11/24/16 10:45 98.2 100 18 117/66 (83) 97 11/24/16 08:04 89 11/24/16 04:23 91 11/24/16 04:00 99.6 91 18 100/52 (68) 95 11/24/16 00:04 80 11/24/16 00:00 99.5 78 18 127/60 (82) 97 11/23/16 20:07 83 11/23/16 20:00 99.1 67 16 127/58 (81) 96 11/23/16 16:00 98.5 86 16 114/83 (93) 97 11/23/16 15:18 77 I/O 11/23/16 11/23/16 11/23/16 11/24/16 11/24/16 11/24/16 07:00 15:00 23:00 07:00 15:00 23:00 Intake Total 250 ml 600 ml 200 ml 480 ml Output Total 600 ml 450 ml 650 ml 300 ml 1500 ml Balance -350 ml 150 ml -450 ml 180 ml -1500 ml Intake Oral 250 ml 600 ml 200 ml 480 ml Output Urine Total 600 ml 450 ml 650 ml 300 ml Hemodialysis 1500 ml # Voids 1 Result Diagram: 11/22/16 0455 11/24/16 0505 Objective Remarks GENERAL: This is a well-nourished, well-developed patient, in no apparent distress. Lying in hospital bed. Sleeping but easily awakens to voice. Appears comfortable. SKIN: Warm and dry. Erythematous macupapular rash throughout trunk and back area, bilateral side of the abdomen - improving HEENT: Normocephalic. Pupils equal round and reactive. Nose without bleeding. Airway patent. NECK: Trachea midline. Supple. CARDIOVASCULAR: Regular rate and rhythm without murmurs, gallops, or rubs. RESPIRATORY: Diminished bases. No wheezes, rales, or rhonchi. GASTROINTESTINAL: Abdomen soft, non-tender, nondistended. Bowel Sounds normoactive x4. MUSCULOSKELETAL: Extremities without clubbing, cyanosis, BLE trace edema. NEUROLOGICAL: Awake and alert. Oriented to time, place, person. No focal neuro deficit. Moves all extremities. Normal speech. 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 having achieved remission Status: Acute (4) Hypertension ICD Code: I10 - Essential (primary) hypertension Status: Chronic (5) Acute renal failure ICD Code: N17.9 - Acute kidney failure, unspecified (6) Tumor lysis syndrome ICD Code: E88.3 - Tumor lysis syndrome (7) Atrial fibrillation ICD Code: I48.91 - Unspecified atrial fibrillation Status: Acute Assessment and Plan 11/22: Continue monitoring BMP, continue on hemodialysis until deciding if patient will have 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 11/24: Recurrent pruritic macular rash today, feeling weak after dialysis, applied hydrocortisone, discharged once cleared by nephrology Patient is a 71-year-old male with ALL: Appreciate oncology recommendations. Continue chemotherapy (hyperCVAD + Rituxan & Cytarabine). - Patient will continue outpatient chemotherapy. Follow up with oncology - Hematology/Oncology states patient is ready for discharge from hematologic standpoint. Requires readmission in the upcoming 2 weeks for cycle #2/arm B Hyper- CVAD - continue on po Acyclovir and Diflucan prophylaxis Pneumonia: Off antibiotics per infectious disease. DuoNeb as needed. Stable on room air. - ID signed off. Clinically stable on infectious disease standpoint. Hypertension: Continue amlodipine. Vasotec IV as needed. Blood pressure control improved. Tumor lysis syndrome: S/P Rasburicase. Appreciate oncology, nephrology management. Atrial fibrillation with RVR: Appreciate cardiology recommendations.2-D echocardiogram shows ejection fraction 55-60%. Continue oral Cardizem, metoprolol. Acute renal failure: Dialysis per nephrology (M-W-). Adequate UO. . Avoid nephrotoxins. - s/p permacath placement - Patient will need outpatient hemodialysis set up. As per her hydraulic rockbreaker operator , unknown if patient is end-stage renal but will set him up for hemodialysis as an outpatient. - Case management is working on setting him up for [facility] -Per Dr. Gailcia, plan to keep the patient to determine whether he would need continued HD or not Poor oral intake: Likely secondary to chemotherapy. Continue Megace. Complaints of decreased appetite. Encouraged. Rash: Has rash on upper back and chest that started 2 days ago. Rash is papular and there is evidence of excoriation. Patient denies chest pain, dyspnea, wheeze. Lungs are clear on exam. - Only new medication is metoprolol, started 11/14/16. Monitor rash. - Was on multiple antibiotics previously broad spectrum coverage which may have caused the reaction. As per ID they will not start any antibiotic for now. - Benadryl available PRN - Hydrocortisone cream BID. - Improving Diarrhea: Was given one time dose of Imodium. Cdiff checked on 11/06/16 which was negative. - No complaints Generalized weakness - Patient has been evaluated by physical therapy and has been working on him. Recommends rolling walker, bedside commode and shower chair for use at home. - Continue with physical therapy until discharge. DVT prophylaxis: Jurgen, KRISTEN sauer. Problem Qualifiers (1) Pneumonia: (2) Acute lymphocytic leukemia: Qualified Codes: C91.00 - Acute lymphoblastic leukemia not having achieved remission (3) Atrial fibrillation: Elin Mcleod MD Nov 24, 2016 14:06
[2016-11-24] MEDS ORDERED: MEGE40SU PO (14:15)
[2016-11-24] MEDS ORDERED: LACT PO (14:15)
[2016-11-24] MEDS ORDERED: PANT40P IV PUSH (14:15)
[2016-11-24] MEDS ORDERED: CALC250 PO (14:15)
[2016-11-24] MEDS ORDERED: BENA25CA4 PO (14:15)
[2016-11-24] MEDS ORDERED: SUCR1S PO (14:15)
[2016-11-24] MEDS ORDERED: OXYC1TAB63 PO (14:15)
[2016-11-24] MEDS ORDERED: METO25TA3 PO (14:15)
--- NOTE | 2016-11-24 15:12 | HHI.NPPN ---
Subjective General Problems: Anemia, Edema, Hypertension Renal Failure: Acute Interval History patient is non oliguric. Slight increase in the creatinine. Dialysis terminated early today. Review of Systems General Constitutional: Fatigue Respiratory Lungs: SOB Cardiovascular Cardiac: Edema Gastrointestinal GI Remarks loss of appetite Objective Data Data 11/24/16 11/25/16 19:00 07:00 Intake Total 240 ml Output Total 1700 ml Balance -1460 ml Intake Oral 240 ml Output Urine Total 200 ml Hemodialysis 1500 ml Vital Signs Date Time Temp Pulse Resp B/P (MAP) Pulse Ox O2 Delivery O2 Flow Rate FiO2 11/24/16 12:26 110 11/24/16 12:00 97.0 99 18 125/72 (89) 98 11/24/16 11:00 96 11/24/16 10:45 98.2 100 18 117/66 (83) 97 11/24/16 08:04 89 11/24/16 04:23 91 11/24/16 04:00 99.6 91 18 100/52 (68) 95 11/24/16 00:04 80 11/24/16 00:00 99.5 78 18 127/60 (82) 97 11/23/16 20:07 83 11/23/16 20:00 99.1 67 16 127/58 (81) 96 11/23/16 16:00 98.5 86 16 114/83 (93) 97 11/23/16 15:18 77 -: 11/22/16 0455 11/24/16 0505 Tubes & Lines: Perma-Cath Physical Exam General Appearance: Well Developed, Well Nourished, No Acute Distress, Comfortable Eyes Eye Exam: Pupils Equal, Pupils Reactive Throat Throat Exam: Oral Mucosa [place] & Moist Neck Neck Exam: Neck Supple Pulmonary Resp Exam: Clear Bilaterally, Breath Sounds Equal, No Distress Cardiology CV Exam: Regular, Normal Sinus Rhythm, Good Perfusion Gastrointestinal/Abdomen GI Exam: Soft, Non-Tender, Bowel Sounds Present, Positive Bowel Movement Musculoskeletal MS Exam: Joints Intact, Normal Gait, Normal Tone Integumentary Skin Exam: Clear, Warm, Dry, Intact Extremeties Extremities Exam: Pitting Edema Neurologic Neuro Exam: Alert, Awake, Oriented Psychiatric Psych Exam: Appropriate Responses Assessment/Plan Discussed Condition With: Patient Assessment Summary: FAIZA/Acute Renal Failure, Hypertension Electrolyte Assessment: Hypocalcemia Problem List: (1) Acute kidney injury ICD Codes: N17.9 - Acute kidney failure, unspecified Status: Acute Plan: 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 Non oliguric, but he has been on dialysis MWF since 10/30 Repeat labs tomorrow and again on Thursday. Dialysis as needed. 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 (3) Hypocalcemia ICD Codes: E83.51 - Hypocalcemia Status: Acute Plan: improved, monitor (4) Pancytopenia ICD Codes: D61.818 - Other pancytopenia Status: Acute Plan: Resolved. 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 Monitor. Problem Qualifiers (1) Acute lymphocytic leukemia: Qualified Codes: C91.00 - Acute lymphoblastic leukemia not having achieved remission Clay Galicia MD Nov 24, 2016 15:12
[2016-11-24] MEDS: diphenhydrAMINE HCL 25 MG CAP PO PRN ×2 (19:26→23:52)
[2016-11-25] VITALS (11 sets, daily range): BP systolic 104–128; BP diastolic 61–77; PULSE 74–116; RESP 17–20; TEMP 97.5–100; O2SAT 96–99
[2016-11-25] MEDS: SODIUM CHLORIDE 0.9% FLUSH 10 ML FLUSH IV FLUSH PRN ×3 (04:42→04:46)
[2016-11-25] MEDS: PANTOPRAZOLE SODIUM 40 MG VIAL IV PUSH SCH (04:46)
[2016-11-25 06:05] LABS: BICARBONATE 27.4 MEQ/L (21.0-32.0); POTASSIUM 4.6 MEQ/L (3.5-5.1)
[2016-11-25] MEDS: SUCRALFATE 1 GM/10 ML CUP PO SCH ×2 (07:35→10:25)
[2016-11-25] MEDS: diphenhydrAMINE HCL 25 MG CAP PO PRN ×2 (07:51→22:28)
[2016-11-25] MEDS: ALLOPURINOL 100 MG TAB PO SCH (08:59)
[2016-11-25] MEDS: SIMETHICONE 80 MG CHEWABLE TAB CHEW SCH (08:59)
[2016-11-25] MEDS: CALCIUM/VITAMIN D 250 MG/125 U TAB PO SCH ×2 (08:59→22:28)
[2016-11-25] MEDS: LACTOBACILLUS ACIDOPHILUS TAB PO SCH ×3 (08:59→18:00)
[2016-11-25] MEDS: DILTIAZEM-CD 240 MG CAP ER PO SCH (09:00)
[2016-11-25] MEDS: HYDROCORTISONE 1% OINT 30 GM TUBE TOPICAL SCH ×2 (09:00→22:30)
[2016-11-25] MEDS: MUPIROCIN 2% OINT 22 GM TUBE TOPICAL SCH ×2 (09:00→21:00)
[2016-11-25] MEDS: METOPROLOL TARTRATE 25 MG TAB PO SCH ×2 (09:00→22:28)
[2016-11-25] MEDS: BUMETANIDE INJ 1 MG/4 ML VIAL IV PUSH SCH (09:00)
[2016-11-25] MEDS: MEGESTROL ACETATE SUSP 400 MG/10 ML CUP PO SCH (09:00)
[2016-11-25] MEDS: SODIUM CHLORIDE 0.9% FLUSH 10 ML FLUSH IV FLUSH SCH ×2 (09:01→21:00)
[2016-11-25] MEDS: SODIUM CHLORIDE 0.9% FLUSH 10 ML FLUSH IVF SCH (09:01)
--- NOTE | 2016-11-25 09:27 | HHI.NPPN ---
Subjective General Problems: Anemia, Edema, Hypertension Renal Failure: Acute Interval History Has generalilzed macular rash with itching. Dialyzed shortened HD treatment yesterday. Low grade fevers overnight. (Nava Cabral) Review of Systems General Constitutional: Fatigue (Nava Cabral) Gastrointestinal GI Remarks loss of appetite (Nava Cabral) Skin Skin: Skin Rash (Nava Cabral) Objective Data Data Vital Signs Date Time Temp Pulse Resp B/P (MAP) Pulse Ox O2 Delivery O2 Flow Rate FiO2 11/25/16 04:08 92 11/25/16 04:00 99.8 100 17 104/62 (76) 97 11/25/16 00:15 116 11/25/16 00:00 99.5 85 18 125/75 (92) 96 11/24/16 21:18 99.8 97 16 114/59 (77) 97 11/24/16 20:02 87 11/24/16 16:36 85 11/24/16 16:00 98.3 84 18 121/72 (88) 97 11/24/16 12:26 110 11/24/16 12:00 97.0 99 18 125/72 (89) 98 11/24/16 11:00 96 11/24/16 10:45 98.2 100 18 117/66 (83) 97 (Nava Cabral) -: 11/22/16 0455 11/25/16 0440 Imaging Last Impressions Catheter Placement X-Ray 11/18/16 0000 Signed Impressions: Service Date/Time: Friday, November 18, 2016 16:47 - CONCLUSION: Uncomplicated PermaCath placement as above. Balwinder Oliver MD Gall Bladder Ultrasound 11/09/16 0000 Signed Impressions: Service Date/Time: Wednesday, November 09, 2016 12:22 - CONCLUSION: 1. Increased echogenicity throughout the liver suggestive of fatty infiltration. The liver is enlarged at 18.5 cm. 2. There are gallstones in the gallbladder. No biliary tract obstruction. Prasad Cade MD Abdomen/Pelvis CT 11/08/16 0000 Signed Impressions: Service Date/Time: Tuesday, November 08, 2016 15:00 - CONCLUSION: #1. Small right-sided pleural effusion. #2. Hazy increased density identified adjacent to the head of the pancreas as compared to the body and tail which may represent early changes of acute pancreatitis. Recommend correlation with patient's laboratory values. #3. Small anterior hernia with preperitoneal fat. This is seen approximately 2 cm superior to the umbilicus. Darcie Evans MD Chest X-Ray 11/01/16 0000 Signed Impressions: Service Date/Time: Tuesday, November 01, 2016 14:05 - CONCLUSION: Bibasilar densities likely atelectasis. Neal Castro MD Renal Ultrasound 10/30/16 0000 Signed Impressions: Service Date/Time: October 08:13 - CONCLUSION: Unremarkable exam with no evidence of hydronephrosis. Wander Hodges MD Lumbar Puncture Fluoroscopy 10/27/16 0000 Signed Impressions: Service Date/Time: Thursday, October 27, 2016 12:19 - CONCLUSION: Uncomplicated fluoroscopically guided lumbar puncture with chemotherapy injection. Matt Lassiter MD PICC Line Insertion 10/24/16 0000 Signed Impressions: Service Date/Time: Monday, October 24, 2016 12:01 - CONCLUSION: 1. Uncomplicated central venous Power PICC line placement. 2. The PICC line can be used immediately. Serafin aSba MD Bone Biopsy CT 10/24/16 0000 Signed Impressions: Service Date/Time: Monday, October 24, 2016 16:09 - CONCLUSION: 1. Uncomplicated CT guided bone marrow aspirate. 2. Uncomplicated CT guided bone marrow biopsy. Balwinder Swenson MD Tubes & Lines: Perma-Cath (Nava Cabral B. CROSS CUT SAW OPERATOR) Physical Exam General Appearance: Well Developed, Well Nourished, No Acute Distress, Comfortable (MariannaNava B. CROSS CUT SAW OPERATOR) Eyes Eye Exam: Pupils Equal, Pupils Reactive (MariannaNava B. CROSS CUT SAW OPERATOR) Throat Throat Exam: Oral Mucosa [place] & Moist (MariannaNava B. CROSS CUT SAW OPERATOR) Neck Neck Exam: Neck Supple (MariannaNava B. CROSS CUT SAW OPERATOR) Pulmonary Resp Exam: Clear Bilaterally, Breath Sounds Equal, No Distress (Nava Cabral B. CROSS CUT SAW OPERATOR) Cardiology CV Exam: Regular, Normal Sinus Rhythm, Good Perfusion (Nava Cabral) Gastrointestinal/Abdomen GI Exam: Soft, Non-Tender, Bowel Sounds Present, Positive Bowel Movement (Nava Cabral) Musculoskeletal MS Exam: Joints Intact, Normal Gait, Normal Tone MS Remarks generalized weakness (Nava Cabral) Integumentary Skin Exam: Clear, Warm, Dry, Intact Skin Remarks systemic macular rash, more pronounced on upper extremities with urticaria (Nava Cabral) Extremeties Extremities Exam: Pedal Pulses Palpable, Trace Edema Extremeties Remarks 1+ edema to lower extremities (Nava Cabral) Neurologic Neuro Exam: Alert, Awake, Oriented, Speech Clear, Moving All Extremities (Nava Cabral) Psychiatric Psych Exam: Appropriate Responses (Nava Cabral) Assessment/Plan Discussed Condition With: Patient Assessment Summary: FAIZA/Acute Renal Failure, Hypertension Electrolyte Assessment: Hypocalcemia Problem List: (1) Acute kidney injury ICD Codes: N17.9 - Acute kidney failure, unspecified Status: Acute Plan: 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 Non oliguric, but he has been on dialysis MWF since 10/30 Had shortened HD yesterday, 1500 ml UF Repeat labs tomorrow, HD if needed Hopeful about renal recovery Avoid IVF, nephrotoxins Follow urine output. 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 To follow outpatient, oncology has cleared for discharge (3) Hypocalcemia ICD Codes: E83.51 - Hypocalcemia Status: Acute Plan: improved, monitor (4) Pancytopenia ICD Codes: D61.818 - Other pancytopenia Status: Acute Plan: Resolved. 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 Monitor. (Nava Cabral) Plan patient was seen and examined. Agree with above assessment and plan. Unclear why he has developed rash. Stop Allopurinol. Uric acid was low. Watch for signs of renal recovery. (Clay Galicia MD) Problem Qualifiers (1) Acute lymphocytic leukemia: Qualified Codes: C91.00 - Acute lymphoblastic leukemia not having achieved remission Nava Cabral Nov 25, 2016 09:27 Clay Galicia MD Nov 25, 2016 10:24
[2016-11-25] MEDS ORDERED: methylPREDNISolone SOD SUCC 125 MG/2 ML VIAL IV PUSH ONE (09:30)
--- NOTE | 2016-11-25 11:12 | PD.ONC.PN ---
Subjective Subjective Remarks Patient reports progressive rash involving his face, torso, arms and legs, the rash is itchy and has been progressive over the past 4 days. He tells me it all started after his bed sheets were changed 5 days ago. He denies fevers or chills, denies difficulty breathing, reports his appetite has been improving and denies epigastric abdominal pain. There have been no reported acute cardiopulmonary events over the past 4 days. Objective Data Date Time Temp Pulse Resp B/P (MAP) Pulse Ox O2 Delivery O2 Flow Rate FiO2 11/25/16 08:00 99.5 95 20 121/77 (92) 99 11/25/16 04:08 92 11/25/16 04:00 99.8 100 17 104/62 (76) 97 11/25/16 00:15 116 11/25/16 00:00 99.5 85 18 125/75 (92) 96 11/24/16 21:18 99.8 97 16 114/59 (77) 97 11/24/16 20:02 87 11/24/16 16:36 85 11/24/16 16:00 98.3 84 18 121/72 (88) 97 11/24/16 12:26 110 11/24/16 12:00 97.0 99 18 125/72 (89) 98 Result Diagram: 11/22/16 0455 11/25/16 0440 Laboratory Results Laboratory Tests Test 11/25/16 04:40 Blood Urea Nitrogen 47 MG/DL Creatinine 5.46 MG/DL Random Glucose 96 MG/DL Albumin 3.1 GM/DL Calcium Level 8.2 MG/DL Phosphorus Level 4.3 MG/DL Sodium Level 132 MEQ/L Potassium Level 4.6 MEQ/L Chloride Level 94 MEQ/L Carbon Dioxide Level 27.4 MEQ/L Anion Gap 11 MEQ/L Estimat Glomerular Filtration Rate 10 ML/MIN Administered Medications Medications (Trade) Dose Ordered Sig/Daniel Route PRN Reason Start Time Stop Time Status Last Admin Dose Admin Sodium Chloride (NS Flush) 2 ml UNSCH PRN IV FLUSH FLUSH AFTER USING IV ACCESS 10/24/16 01:45 11/25/16 04:46 Sodium Chloride (NS Flush) 2 ml BID IV FLUSH 10/24/16 09:00 11/25/16 09:01 Sodium Chloride (NS Flush) DAILY IVF 10/25/16 09:00 11/25/16 09:01 Heparin Sodium (Porcine) (Heparin Central Flush) DAILY IV FLUSH 10/25/16 09:00 11/25/16 04:47 Sodium Chloride (NS Flush) 2 ml UNSCH PRN IVF SEE PROTOCOL 10/24/16 13:15 11/16/16 09:28 Lactobacillus Acidophilus (Lactinex) 1 tab TID PO 10/24/16 18:00 11/25/16 08:59 Miscellaneous (Pill Splitter) 1 ea UNSCH PRN OTHER SEE LABEL COMMENTS 10/30/16 06:45 10/30/16 06:36 Sodium Chloride 1,000 ml @ 0 mls/hr Q0M PRN IV For Prime & Rinse Back 10/30/16 08:47 11/24/16 10:08 Heparin Sodium (Porcine) (Heparin Inj) 8,000 units UNSCH PRN IVF WITH DIALYSIS 10/30/16 09:00 11/19/16 15:27 Sodium Chloride (NS Flush) 5 ml UNSCH PRN IV FLUSH WITH DIALYSIS 10/30/16 09:00 11/25/16 04:46 Heparin Sodium (Porcine) (Heparin Inj) UNSCH PRN .XX WITH DIALYSIS 10/30/16 09:00 11/24/16 10:09 Gentamicin Sulfate (Gentamicin (Dialysis) Inj) 20 mg UNSCH PRN IV WITH DIALYSIS 10/30/16 09:00 11/24/16 10:09 Ondansetron HCl (Zofran Inj) 4 mg UNSCH PRN IV WITH DIALYSIS 10/30/16 09:00 11/03/16 23:59 Acetaminophen (Tylenol) 650 mg UNSCH PRN PO for headach, pain, temp > 101F 10/30/16 09:00 11/07/16 23:21 Diphenhydramine HCl (Benadryl) 25 mg UNSCH PRN PO for hives/itching/anaphylaxis 10/30/16 09:00 11/25/16 07:51 Mupirocin (Bactroban 2% Oint) 1 applic Q12HR TOPICAL 11/01/16 21:00 11/20/16 09:00 Ondansetron HCl (Zofran Inj) 4 mg Q6H PRN IV PUSH nausea 11/04/16 08:45 11/11/16 20:57 Simethicone (Mylicon Chew) 80 mg PCHS CHEW 11/04/16 10:30 11/25/16 08:59 Calcium/Vitamin D (Oscal-D 250-125) 500 mg Q12HR PO 11/07/16 21:00 11/25/16 08:59 Hydromorphone HCl (Dilaudid Pf Inj) 1 mg Q3H PRN IV PAIN 6-10 11/08/16 16:45 11/09/16 06:36 Sucralfate (Carafate Liq) 1 gm ACHS PO 11/08/16 21:00 11/25/16 07:35 Pantoprazole Sodium (Protonix Inj) 40 mg Q12H IV PUSH 11/08/16 17:45 11/25/16 04:46 Diphenhydramine HCl (Benadryl) 25 mg Q4H PRN PO SEE LABEL COMMENTS 11/10/16 07:30 11/12/16 13:00 Megestrol Acetate (Megace Liq) 400 mg DAILY PO 11/11/16 09:00 11/22/16 09:05 Bumetanide (Bumex Inj) 2 mg DAILY IV PUSH 11/12/16 09:00 11/25/16 09:00 Metoprolol Tartrate (Lopressor) 25 mg Q12HR PO 11/14/16 09:00 11/25/16 09:00 Diltiazem HCl (Cardizem Cd) 240 mg DAILY PO 11/14/16 09:00 11/25/16 09:00 Loperamide HCl (Imodium) 2 mg Q4H PRN PO diarrhea 11/15/16 23:30 11/15/16 23:37 Hydrocortisone (Nutracort 1% Oint) 1 applic BID TOPICAL 11/17/16 13:30 11/27/16 13:29 11/25/16 09:00 Objective Remarks GENERAL APPEARANCE: Mr. Chou is an elderly male, he is tall and heavy-set, He sitting up, appears to be no acute distress. He is a diffuse maculopapular rash involving his face, torso and arms. HEENT: Head atraumatic, normocephalic, conjunctivae are pale. Sclerae are anicteric, EOMI, PERRLA, oral exam no pharyngeal erythema. He has a submucosal bruise along the right side of the soft palate. NECK: No palpable cervical or supraclavicular lymphadenopathy. Right . Right IJ dialysis catheter has been removed, it has been replaced by a tunneled Vas-Cath on the right side. RESPIRATORY: Good air movement bilaterally over the upper and middle lung zones , decreased breath sounds over the bases. No added breath sounds. CARDIOVASCULAR: Regular rate and rhythm, S1-S2. No obvious murmurs, gallops. ABDOMEN: Obese belly, soft, nontender, nondistended, no palpable organ enlargement, specifically no hepatosplenomegaly. EXTREMITIES: Lower extremities, positive for pretibial edema. No calf tenderness. PICC line in right arm. JAZ/LYMPH EXAMINATION: No cervical lymphadenopathy, no axillary lymphadenopathy and no inguinal lymphadenopathy. 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 Skin: Maculopapular rash diffusely present over most of his skin. 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 Monitor periodic CBC. -- Status post induction systemic therapy with hyper-CVAD with Rituxan. 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 S/p C1 Hyper-CVAD + R. -- Complicated by TLS and ARF requiring HD for this. -- He is ready for discharge from a hematologic standpoint. -- He will need to be set up with outpatient dialysis prior to discharge from a renal standpoint. 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 S/p cycle 1 Hyper-CVAD + Rituxan and IT cytarabine. Plan 1. B-cell ALL ([place] chromosome negative): Status post cycle #1 (Arm A ) hyper-CVAD with Rituxan and intrathecal chemotherapy. His counts have recovered. I would like to discharge him home before treating him with cycle # 2 (Arm B) Hyper-CVAD. 2. ARF due to TLS; on HD. Renal function seems to not have recovered. He is urinating well. 3. Rash: I suspect this may be a drug rash, however eliminated some of the medications which are not at this time needed including IV pantoprazole, simethicone and Carafate. I have also start him on prednisone 40 MG by mouth daily. Disposition: Discharge home or to rehabilitation once outpatient hemodialysis has been arranged. Problem Qualifiers (1) Acute lymphocytic leukemia: Qualified Codes: C91.00 - Acute lymphoblastic leukemia not having achieved remission Sukhwinder Rice MD Nov 25, 2016 11:12
--- NOTE | 2016-11-25 14:20 | HHI.PR ---
Subjective Remarks Called by the nurse patient is having worsening of the skin rash it's getting more papular on the arms today, but no fever or chills Discussed with Dr. 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 Rice , the patient Objective Vitals Vital Signs Date Time Temp Pulse Resp B/P (MAP) Pulse Ox O2 Delivery O2 Flow Rate FiO2 11/25/16 12:00 100.0 82 18 121/66 (84) 97 11/25/16 08:00 99.5 95 20 121/77 (92) 99 11/25/16 04:08 92 11/25/16 04:00 99.8 100 17 104/62 (76) 97 11/25/16 00:15 116 11/25/16 00:00 99.5 85 18 125/75 (92) 96 11/24/16 21:18 99.8 97 16 114/59 (77) 97 11/24/16 20:02 87 11/24/16 16:36 85 11/24/16 16:00 98.3 84 18 121/72 (88) 97 I/O 11/24/16 11/24/16 11/24/16 11/25/16 11/25/16 11/25/16 07:00 15:00 23:00 07:00 15:00 23:00 Intake Total 480 ml 747 ml Output Total 300 ml 1700 ml 300 ml Balance 180 ml -953 ml -300 ml Intake Oral 480 ml 747 ml Output Urine Total 300 ml 200 ml 300 ml Hemodialysis 1500 ml # Bowel Movements 2 Result Diagram: 11/22/16 0455 11/25/16 0440 Objective Remarks - - GENERAL: This is a well-nourished, well-developed patient, in no apparent distress. Lying in hospital bed. Sleeping but easily awakens to voice. Appears comfortable. SKIN: Warm and dry. Erythematous macupapular rash throughout trunk and back area now on the upper extremity, bilateral side of the abdomen - HEENT: Normocephalic. Pupils equal round and reactive. Nose without bleeding. Airway patent. NECK: Trachea midline. Supple. CARDIOVASCULAR: Regular rate and rhythm without murmurs, gallops, or rubs. RESPIRATORY: Diminished bases. No wheezes, rales, or rhonchi. GASTROINTESTINAL: Abdomen soft, non-tender, nondistended. Bowel Sounds normoactive x4. MUSCULOSKELETAL: Extremities without clubbing, cyanosis, BLE trace edema. NEUROLOGICAL: Awake and alert. Oriented to time, place, person. No focal neuro deficit. Moves all extremities. Normal speech. 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 having achieved remission Status: Acute (4) Hypertension ICD Code: I10 - Essential (primary) hypertension Status: Chronic (5) Acute renal failure ICD Code: N17.9 - Acute kidney failure, unspecified (6) Tumor lysis syndrome ICD Code: E88.3 - Tumor lysis syndrome (7) Atrial fibrillation ICD Code: I48.91 - Unspecified atrial fibrillation Status: Acute Assessment and Plan 11/22: Continue monitoring BMP, continue on hemodialysis until deciding 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 11/24: Recurrent pruritic macular rash today, feeling weak after dialysis, applied hydrocortisone, discharged once cleared by nephrology Patient is a 71-year-old male with 11/25: low-grade fever of 100, Pruritic rash getting worse papular on the upper extremity, discussed with hematology oncology recommended dose of steroid, discussed with Dr. Paula, Dr. Rice will be following, ALL: Appreciate oncology recommendations. Continue chemotherapy (hyperCVAD + Rituxan & Cytarabine). - Patient will continue outpatient chemotherapy. Follow up with oncology - Hematology/Oncology states patient is ready for discharge from hematologic standpoint. Requires readmission in the upcoming 2 weeks for cycle #2/arm B Hyper- CVAD - continue on po Acyclovir and Diflucan prophylaxis Pneumonia: Off antibiotics per infectious disease. DuoNeb as needed. Stable on room air. - ID signed off. Clinically stable on infectious disease standpoint. Hypertension: Continue amlodipine. Vasotec IV as needed. Blood pressure control improved. Tumor lysis syndrome: S/P Rasburicase. Appreciate oncology, nephrology management. Atrial fibrillation with RVR: Appreciate cardiology recommendations.2-D echocardiogram shows ejection fraction 55-60%. Continue oral Cardizem, metoprolol. Acute renal failure: Dialysis per nephrology (M-W-). Adequate UO. . Avoid nephrotoxins. - s/p permacath placement - Patient will need outpatient hemodialysis set up. As per her certified nurse , unknown if patient is end-stage renal but will set him up for hemodialysis as an outpatient. - Case management is working on setting him up for [facility] -Per Dr. Galicia, plan to keep the patient to determine whether he would need continued HD or not Poor oral intake: Likely secondary to chemotherapy. Continue Megace. Complaints of decreased appetite. Encouraged. Rash: Has rash on upper back and chest that started 2 days ago. Rash is papular and there is evidence of excoriation. Patient denies chest pain, dyspnea, wheeze. Lungs are clear on exam. - Only new medication is metoprolol, started 11/14/16. Monitor rash. - Was on multiple antibiotics previously broad spectrum coverage which may have caused the reaction. As per ID they will not start any antibiotic for now. - Benadryl available PRN - Hydrocortisone cream BID. - Improving Diarrhea: Was given one time dose of Imodium. Cdiff checked on 11/06/16 which was negative. - No complaints Generalized weakness - Patient has been evaluated by physical therapy and has been working on him. Recommends rolling walker, bedside commode and shower chair for use at home. - Continue with physical therapy until discharge. DVT prophylaxis: SCDs, KRISTEN sauer. Problem Qualifiers (1) Pneumonia: (2) Acute lymphocytic leukemia: Qualified Codes: C91.00 - Acute lymphoblastic leukemia not having achieved remission (3) Atrial fibrillation: Elin Mcleod MD Nov 25, 2016 14:20
[2016-11-26] VITALS (9 sets, daily range): BP systolic 100–137; BP diastolic 52–97; PULSE 64–83; RESP 17–20; TEMP 96.4–98.2; O2SAT 96–99
[2016-11-26] MEDS: SODIUM CHLORIDE 0.9% FLUSH 10 ML FLUSH IV FLUSH PRN (04:52)
[2016-11-26] MEDS: diphenhydrAMINE HCL 25 MG CAP PO PRN (05:00)
[2016-11-26 06:05] LABS: BASOPHIL # 0.1 TH/MM3 (0-0.2); BASOPHIL % 0.7 % (0.0-2.0); EOSINOPHIL # 0.1 TH/MM3 (0-0.4); EOSINOPHIL % 0.9 % (0.0-4.0); LYMPH % 1.6 % (9.0-44.0); LYMPHOCYTE # 0.2 TH/MM3 (1.0-4.8); MEAN CELL VOLUME 90.1 FL (80.0-100.0); MEAN CORPUSCULAR HEMOGLOBIN 31.3 PG (27.0-34.0); MEAN CORPUSCULAR HGB CONC 34.7 % (32.0-36.0); MONO % 18.9 % (0.0-8.0); NEUT % 77.9 % (16.0-70.0); PLATELET COUNT 190 TH/MM3 (150-450); RED CELL DISTRIBUTION WIDTH 16.3 % (11.6-17.2); WHITE BLOOD COUNT 10.3 TH/MM3 (4.0-11.0)
[2016-11-26 06:28] LABS: HEMO FLAGS AUTO DIFF
[2016-11-26 06:41] LABS: BICARBONATE 24.4 MEQ/L (21.0-32.0); POTASSIUM 4.3 MEQ/L (3.5-5.1)
--- NOTE | 2016-11-26 08:02 | PD.ONC.PN ---
Subjective Subjective Remarks Reports worsening rash on the skin, severe itching. Especially on the face, arms and torso. Had low grade temps yesterday, Tmax of 100F on 2 occasions. He denies chills or sweats. He is eating better and diarrhea is essentially resolved. HD today. Objective Data Date Time Temp Pulse Resp B/P (MAP) Pulse Ox O2 Delivery O2 Flow Rate FiO2 11/26/16 04:00 97.2 66 17 116/52 (73) 99 11/26/16 00:01 64 11/26/16 00:00 98.2 70 18 100/61 (74) 96 11/25/16 20:33 74 11/25/16 20:00 97.5 74 17 124/61 (82) 97 11/25/16 19:26 77 11/25/16 18:00 100.0 80 18 128/65 (86) 96 11/25/16 14:36 85 11/25/16 12:00 100.0 82 18 121/66 (84) 97 11/26/16 11/26/16 11/26/16 07:00 15:00 23:00 Output Total 400 ml 300 ml Balance -400 ml -300 ml Result Diagram: 11/26/16 0455 11/26/16 0455 Laboratory Results Laboratory Tests Test 11/26/16 04:55 White Blood Count 10.3 TH/MM3 Red Blood Count 3.10 MIL/MM3 Hemoglobin 9.7 GM/DL Hematocrit 28.0 % Mean Corpuscular Volume 90.1 FL Mean Corpuscular Hemoglobin 31.3 PG Mean Corpuscular Hemoglobin Concent 34.7 % Red Cell Distribution Width 16.3 % Platelet Count 190 TH/MM3 Mean Platelet Volume 8.0 FL Neutrophils (%) (Auto) 77.9 % Lymphocytes (%) (Auto) 1.6 % Monocytes (%) (Auto) 18.9 % Eosinophils (%) (Auto) 0.9 % Basophils (%) (Auto) 0.7 % Neutrophils # (Auto) 8.0 TH/MM3 Lymphocytes # (Auto) 0.2 TH/MM3 Monocytes # (Auto) 1.9 TH/MM3 Eosinophils # (Auto) 0.1 TH/MM3 Basophils # (Auto) 0.1 TH/MM3 CBC Comment AUTO DIFF Blood Urea Nitrogen 64 MG/DL Creatinine 5.78 MG/DL Random Glucose 132 MG/DL Albumin 3.0 GM/DL Calcium Level 7.8 MG/DL Phosphorus Level 5.3 MG/DL Sodium Level 126 MEQ/L Potassium Level 4.3 MEQ/L Chloride Level 89 MEQ/L Carbon Dioxide Level 24.4 MEQ/L Anion Gap 13 MEQ/L Estimat Glomerular Filtration Rate 10 ML/MIN Administered Medications Medications (Trade) Dose Ordered Sig/Daniel Route PRN Reason Start Time Stop Time Status Last Admin Dose Admin Sodium Chloride (NS Flush) 2 ml UNSCH PRN IV FLUSH FLUSH AFTER USING IV ACCESS 10/24/16 01:45 11/25/16 04:46 Sodium Chloride (NS Flush) 2 ml BID IV FLUSH 10/24/16 09:00 11/25/16 09:01 Sodium Chloride (NS Flush) DAILY IVF 10/25/16 09:00 11/25/16 09:01 Heparin Sodium (Porcine) (Heparin Central Flush) DAILY IV FLUSH 10/25/16 09:00 11/26/16 04:53 Sodium Chloride (NS Flush) 2 ml UNSCH PRN IVF SEE PROTOCOL 10/24/16 13:15 11/16/16 09:28 Lactobacillus Acidophilus (Lactinex) 1 tab TID PO 10/24/16 18:00 11/25/16 14:26 Miscellaneous (Pill Splitter) 1 ea UNSCH PRN OTHER SEE LABEL COMMENTS 10/30/16 06:45 10/30/16 06:36 Sodium Chloride 1,000 ml @ 0 mls/hr Q0M PRN IV For Prime & Rinse Back 10/30/16 08:47 11/24/16 10:08 Heparin Sodium (Porcine) (Heparin Inj) 8,000 units UNSCH PRN IVF WITH DIALYSIS 10/30/16 09:00 11/19/16 15:27 Sodium Chloride (NS Flush) 5 ml UNSCH PRN IV FLUSH WITH DIALYSIS 10/30/16 09:00 11/26/16 04:52 Heparin Sodium (Porcine) (Heparin Inj) UNSCH PRN .XX WITH DIALYSIS 10/30/16 09:00 11/24/16 10:09 Gentamicin Sulfate (Gentamicin (Dialysis) Inj) 20 mg UNSCH PRN IV WITH DIALYSIS 10/30/16 09:00 11/24/16 10:09 Ondansetron HCl (Zofran Inj) 4 mg UNSCH PRN IV WITH DIALYSIS 10/30/16 09:00 11/03/16 23:59 Acetaminophen (Tylenol) 650 mg UNSCH PRN PO for headach, pain, temp > 101F 10/30/16 09:00 11/07/16 23:21 Diphenhydramine HCl (Benadryl) 25 mg UNSCH PRN PO for hives/itching/anaphylaxis 10/30/16 09:00 11/26/16 05:00 Mupirocin (Bactroban 2% Oint) 1 applic Q12HR TOPICAL 11/01/16 21:00 11/20/16 09:00 Ondansetron HCl (Zofran Inj) 4 mg Q6H PRN IV PUSH nausea 11/04/16 08:45 11/11/16 20:57 Calcium/Vitamin D (Oscal-D 250-125) 500 mg Q12HR PO 11/07/16 21:00 11/25/16 22:28 Hydromorphone HCl (Dilaudid Pf Inj) 1 mg Q3H PRN IV PAIN 6-10 11/08/16 16:45 11/09/16 06:36 Diphenhydramine HCl (Benadryl) 25 mg Q4H PRN PO SEE LABEL COMMENTS 11/10/16 07:30 11/12/16 13:00 Bumetanide (Bumex Inj) 2 mg DAILY IV PUSH 11/12/16 09:00 11/25/16 09:00 Metoprolol Tartrate (Lopressor) 25 mg Q12HR PO 11/14/16 09:00 11/25/16 22:28 Diltiazem HCl (Cardizem Cd) 240 mg DAILY PO 11/14/16 09:00 11/25/16 09:00 Loperamide HCl (Imodium) 2 mg Q4H PRN PO diarrhea 11/15/16 23:30 11/15/16 23:37 Hydrocortisone (Nutracort 1% Oint) 1 applic BID TOPICAL 11/17/16 13:30 11/27/16 13:29 11/25/16 22:30 Sodium Chloride (NS Flush) UNSCH PRN IVF SEE PROTOCOL 11/18/16 18:00 11/26/16 04:53 Objective Remarks GENERAL APPEARANCE: Mr. Chou is an elderly male, he is tall and heavy-set, He sitting up, appears to be no acute distress. He is a diffuse maculopapular rash involving his face, torso and arms. HEENT: Head atraumatic, normocephalic, conjunctivae are pale. Sclerae are anicteric, EOMI, PERRLA, oral exam no pharyngeal erythema. He has a submucosal bruise along the right side of the soft palate. NECK: No palpable cervical or supraclavicular lymphadenopathy. Right . Right IJ dialysis catheter has been removed, it has been replaced by a tunneled Vas-Cath on the right side. RESPIRATORY: Good air movement bilaterally over the upper and middle lung zones , decreased breath sounds over the bases. No added breath sounds. CARDIOVASCULAR: Regular rate and rhythm, S1-S2. No obvious murmurs, gallops. ABDOMEN: Obese belly, soft, nontender, nondistended, no palpable organ enlargement, specifically no hepatosplenomegaly. EXTREMITIES: Lower extremities, positive for pretibial edema. No calf tenderness. PICC line in right arm. JAZ/LYMPH EXAMINATION: No cervical lymphadenopathy, no axillary lymphadenopathy and no inguinal lymphadenopathy. CHRONOMETER TESTER: Exam without any abnormal findings specifically no motor or sensory deficits. Skin: Maculopapular rash diffusely present over most of his skin. 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 Monitor periodic CBC. -- Status post induction systemic therapy with hyper-CVAD with Rituxan. 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 S/p C1 Hyper-CVAD + R. -- Complicated by TLS and ARF requiring HD for this. -- He is ready for discharge from a hematologic standpoint. -- He will need to be set up with outpatient dialysis prior to discharge from a renal standpoint. 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 S/p cycle 1 Hyper-CVAD + Rituxan and IT cytarabine. Plan 1. B-cell ALL ([place] chromosome negative): Status post cycle #1 (Arm A ) hyper-CVAD with Rituxan and intrathecal chemotherapy. His counts have recovered. I would like to discharge him home before treating him with cycle # 2 (Arm B) Hyper-CVAD. 2. ARF due to TLS; on HD. Renal function seems to not have recovered. He is urinating well. 3. Rash: I suspect this may be a drug rash, however eliminated some of the medications which are not at this time needed including IV pantoprazole, simethicone and Carafate. I have also start him on prednisone 40 MG by mouth daily. I will consult Gen Surgery for a skin biopsy of the rash for pathologic review. Disposition: Discharge home or to rehabilitation once outpatient hemodialysis has been arranged. Problem Qualifiers (1) Acute lymphocytic leukemia: Qualified Codes: C91.00 - Acute lymphoblastic leukemia not having achieved remission Sukhwinder Rice MD Nov 26, 2016 08:02
[2016-11-26 08:06] LABS: PLATELET ESTIMATE SMEAR NORMAL (NORMAL); PLATELET MORPHOLOGY NORMAL (NORMAL); SCAN/DIFF AUTO DIFF CONFIRMED
[2016-11-26] MEDS: LACTOBACILLUS ACIDOPHILUS TAB PO SCH ×3 (08:52→17:42)
[2016-11-26] MEDS: CALCIUM/VITAMIN D 250 MG/125 U TAB PO SCH ×2 (08:52→21:12)
[2016-11-26] MEDS: METOPROLOL TARTRATE 25 MG TAB PO SCH ×2 (08:52→21:12)
[2016-11-26] MEDS: PANTOPRAZOLE SOD 20 MG DELAYED RELEASE TAB PO SCH (08:52)
[2016-11-26] MEDS: predniSONE 20 MG TAB PO SCH (08:52)
[2016-11-26] MEDS: DILTIAZEM-CD 240 MG CAP ER PO SCH (08:52)
[2016-11-26] MEDS: SODIUM CHLORIDE 0.9% FLUSH 10 ML FLUSH IVF SCH (08:53)
[2016-11-26] MEDS: SODIUM CHLORIDE 0.9% FLUSH 10 ML FLUSH IV FLUSH SCH ×2 (08:53→21:14)
[2016-11-26] MEDS: BUMETANIDE INJ 1 MG/4 ML VIAL IV PUSH SCH (08:53)
[2016-11-26] MEDS: MUPIROCIN 2% OINT 22 GM TUBE TOPICAL SCH ×2 (08:53→21:00)
[2016-11-26] MEDS: HYDROCORTISONE 1% OINT 30 GM TUBE TOPICAL SCH ×2 (08:54→21:00)
[2016-11-26] MEDS ORDERED: LIDOCAINE 1%/EPINEPHrine 1:100,000 SOLN 20 ML VIAL INFIL ONE (10:30)
--- NOTE | 2016-11-26 11:25 | HHI.NPPN ---
Subjective General Problems: Anemia, Edema, Hypertension Renal Failure: Acute Interval History His rash is worse today. Creatinine is higher today. (Nava Cabral) Review of Systems General Constitutional: Fatigue (Nava Cabral) Gastrointestinal GI Remarks loss of appetite (Nava Cabral) Skin Skin: Skin Rash (Nava Cabral) Objective Data Data 11/26/16 11/27/16 19:00 07:00 Output Total 300 ml Balance -300 ml Output Urine Total 300 ml Vital Signs Date Time Temp Pulse Resp B/P (MAP) Pulse Ox O2 Delivery O2 Flow Rate FiO2 11/26/16 04:00 97.2 66 17 116/52 (73) 99 11/26/16 00:01 64 11/26/16 00:00 98.2 70 18 100/61 (74) 96 11/25/16 20:33 74 11/25/16 20:00 97.5 74 17 124/61 (82) 97 11/25/16 19:26 77 11/25/16 18:00 100.0 80 18 128/65 (86) 96 11/25/16 14:36 85 11/25/16 12:00 100.0 82 18 121/66 (84) 97 (Nava Cabral) -: 11/26/16 0455 11/26/16 0455 Tubes & Lines: Perma-Cath (Nava Cabral) Physical Exam General Appearance: Well Developed, Well Nourished, No Acute Distress, Comfortable (Nava Cabral) Eyes Eye Exam: Pupils Equal, Pupils Reactive (Nava Cabral) Throat Throat Exam: Oral Mucosa [place] & Moist (Nava Cabral) Neck Neck Exam: Neck Supple (Nava Cabral) Pulmonary Resp Exam: Clear Bilaterally, Breath Sounds Equal, No Distress (Nava Cabral) Cardiology CV Exam: Regular, Normal Sinus Rhythm, Good Perfusion (Nava Cabral) Gastrointestinal/Abdomen GI Exam: Soft, Non-Tender, Bowel Sounds Present, Positive Bowel Movement (Nava Cabral) Musculoskeletal MS Exam: Joints Intact, Normal Gait, Normal Tone MS Remarks generalized weakness (Nava Cabral) Integumentary Skin Exam: Clear, Warm, Dry, Intact Skin Remarks systemic maculopapular rash, has developed on lower body, abdomen, legs; previously was more on upper body. (Nava Cabral) Extremeties Extremities Exam: Pedal Pulses Palpable, Trace Edema Extremeties Remarks 1+ edema to lower extremities (Nava Cabral) Neurologic Neuro Exam: Alert, Awake, Oriented, Speech Clear, Moving All Extremities (Nava Cabral) Psychiatric Psych Exam: Appropriate Responses (Nava aCbral) Assessment/Plan Discussed Condition With: Patient Assessment Summary: FAIZA/Acute Renal Failure, Hypertension Electrolyte Assessment: Hypocalcemia Problem List: (1) Acute kidney injury ICD Codes: N17.9 - Acute kidney failure, unspecified Status: Acute Plan: 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 Non oliguric, but he has been on dialysis MWF since 10/30 Creatinine is slightly worse today, will hold HD and monitor labs in AM Remains to be seen if half-way HD is needed Repeat labs in AM including phosphorus level; start Renvela if needed He is not on IVF No edema noted, stop Bumex and monitor He is making a good amount of urine. 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 To follow outpatient, oncology has cleared for discharge (3) Hypocalcemia ICD Codes: E83.51 - Hypocalcemia Status: Acute Plan: improved, monitor (4) Pancytopenia ICD Codes: D61.818 - Other pancytopenia Status: Acute Plan: Resolved. 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 Monitor. (6) Rash and nonspecific skin eruption ICD Codes: R21 - Rash and other nonspecific skin eruption Plan: Unclear the etiology. Appears to be drug induced, but chart reviewed and he was not given anything new during that time. On Benadryl and steroids May need to see dermatology. (Nava Cabral) Plan patient was seen and examined. Agree with above assessment and plan. Dialysis held today. Bumex stopped. (Clay Galicia MD) Problem Qualifiers (1) Acute lymphocytic leukemia: Qualified Codes: C91.00 - Acute lymphoblastic leukemia not having achieved remission Nava Cabral Nov 26, 2016 11:25 Clay Galicia MD Nov 26, 2016 18:46
[2016-11-26] MEDS ORDERED: LIDOCAINE 2%/EPINEPHrine 1:100,000 50ML MDV INFIL ONE (14:00)
--- NOTE | 2016-11-26 14:22 | PD.OP ---
cc: Hao Salazar MD Operative Report Date of Surgery: Nov 26, 2016 Preoperative Diagnosis: (1) Rash and nonspecific skin eruption (2) Thrombocytopenia (3) Acute lymphocytic leukemia (4) History of chemotherapy (5) Leukemia Postoperative Diagnosis: (1) Leukemia (2) History of chemotherapy (3) Rash and nonspecific skin eruption (4) Acute lymphocytic leukemia Same Procedure: 4 mm skin punch biopsy x3 Anesthesia: Local Surgeon: Performed by Ashley BARBER Supervised by Dr. Hao Salazar M.D. Sand Mill Operator Facing Sand(s): None Operation and Findings: The patient has a diffuse rash of unknown origin. A General Surgery consultation has been requested for bedside punch biopsy. Informed consent was obtained. Risks and benefits of procedure explained and all questions answered. A proper Procedure Time Out was completed with HILARIA Carter. The lower RIGHT abdomen was cleaned with Betadine prep sticks. The area was adequately anesthetized using 2 % lidocaine with epinephrine. A 4 mm punch biopsy was used to obtain three samples which was placed into specimen cups. A 3-0 Nylon suture was used to close the three biopsy sites. Dressings were applied and all sharps and supplies were collected and disposed of. The patient tolerated the procedure without any complications. The specimens were labeled with the patient's label and date and time. Ashley Zamora Nov 26, 2016 14:22 Hao Salazar MD Nov 26, 2016 16:07
--- NOTE | 2016-11-26 19:16 | HHI.PR ---
Subjective Remarks Resting in bed, had a punch skin biopsy today, no fever or chills Objective Vitals Vital Signs Date Time Temp Pulse Resp B/P (MAP) Pulse Ox O2 Delivery O2 Flow Rate FiO2 11/26/16 15:51 97.0 76 20 119/57 (77) 98 11/26/16 11:50 97.6 74 20 121/70 (87) 98 11/26/16 07:50 97.8 83 20 134/97 (109) 97 11/26/16 04:00 97.2 66 17 116/52 (73) 99 11/26/16 00:01 64 11/26/16 00:00 98.2 70 18 100/61 (74) 96 11/25/16 20:33 74 11/25/16 20:00 97.5 74 17 124/61 (82) 97 11/25/16 19:26 77 I/O 11/25/16 11/25/16 11/25/16 11/26/16 11/26/16 11/26/16 07:00 15:00 23:00 07:00 15:00 23:00 Intake Total 1960 ml 740 ml Output Total 1000 ml 400 ml 300 ml Balance 960 ml -400 ml 440 ml Intake Oral 1960 ml 740 ml Output Urine Total 1000 ml 400 ml 300 ml # Voids 6 2 # Bowel Movements 1 0 Result Diagram: 11/26/16 0455 11/26/16 0455 Objective Remarks - - GENERAL: This is a well-nourished, well-developed patient, in no apparent distress. Lying in hospital bed. Sleeping but easily awakens to voice. Appears comfortable. SKIN: Warm and dry. Erythematous macupapular rash throughout trunk and back area now on the upper extremity, bilateral side of the abdomen - HEENT: Normocephalic. Pupils equal round and reactive. Nose without bleeding. Airway patent. NECK: Trachea midline. Supple. CARDIOVASCULAR: Regular rate and rhythm without murmurs, gallops, or rubs. RESPIRATORY: Diminished bases. No wheezes, rales, or rhonchi. GASTROINTESTINAL: Abdomen soft, non-tender, nondistended. Bowel Sounds normoactive x4. MUSCULOSKELETAL: Extremities without clubbing, cyanosis, BLE trace edema. NEUROLOGICAL: Awake and alert. Oriented to time, place, person. No focal neuro deficit. Moves all extremities. Normal speech. Procedures 8/11/17 PICC line placement 10/24/16 bone marrow biopsy 10/30/16 Vas-Cath placement Date of Insertion: Oct 24, 2016 Line: PICC Side: Right A/P Problem List: (1) Pancytopenia ICD Code: D61.818 - Other pancytopenia Status: Acute (2) Pneumonia ICD Code: J18.9 - Pneumonia, unspecified organism Status: Acute (3) Acute lymphocytic leukemia ICD Code: C91.00 - Acute lymphoblastic leukemia not having achieved remission Status: Acute (4) Hypertension ICD Code: I10 - Essential (primary) hypertension Status: Chronic (5) Acute renal failure ICD Code: N17.9 - Acute kidney failure, unspecified (6) Tumor lysis syndrome ICD Code: E88.3 - Tumor lysis syndrome (7) Atrial fibrillation ICD Code: I48.91 - Unspecified atrial fibrillation Status: Acute Assessment and Plan 11/22: Continue monitoring BMP, continue on hemodialysis until deciding if patient will have skilled nursing need HD, if so he will need arrangement for outpatient hemodialysis, considering the special weather circumstances ( [place]) patient will be here until Thursday or Thursday 11/23: Discussed with oncology, cleared from their standpoint, following with nephrology for hemodialysis, BMP in a.m. 11/24: Recurrent pruritic macular rash today, feeling weak after dialysis, applied hydrocortisone, discharged once cleared by nephrology Patient is a 71-year-old male with 11/25: low-grade fever of 100, Pruritic rash getting worse papular on the upper extremity, discussed with hematology oncology recommended dose of steroid, discussed with Dr. Paula, Dr. Riec will be following, 11/26: Patient had a punch skin biopsy, started on prednisone by the lodge officer oncologist, suspecting drug-induced rash, held PPI, simethicone:, wood strip block floor installer still following decision to be made regarding the need for intermediate teacher HD, hemodialysis and Bumex has been held by wood strip block floor installer today, repeat BMP in a.m. A/P: ALL: Appreciate oncology recommendations. Continue chemotherapy (hyperCVAD + Rituxan & Cytarabine). - Patient will continue outpatient chemotherapy. Follow up with oncology - Hematology/Oncology states patient is ready for discharge from hematologic standpoint. Requires readmission in the upcoming 2 weeks for cycle #2/arm B Hyper- CVAD - continue on po Acyclovir and Diflucan prophylaxis Pneumonia: Off antibiotics per infectious disease. DuoNeb as needed. Stable on room air. - ID signed off. Clinically stable on infectious disease standpoint. Hypertension: Continue amlodipine. Vasotec IV as needed. Blood pressure control improved. Tumor lysis syndrome: S/P Rasburicase. Appreciate oncology, nephrology management. Atrial fibrillation with RVR: Appreciate cardiology recommendations.2-D echocardiogram shows ejection fraction 55-60%. Continue oral Cardizem, metoprolol. Acute renal failure: Dialysis per nephrology (M-W-). Adequate UO. . Avoid nephrotoxins. - s/p permacath placement - Patient will need outpatient hemodialysis set up. As per her wood strip block floor installer , unknown if patient is end-stage renal but will set him up for hemodialysis as an outpatient. - Case management is working on setting him up for [facility] -Per Dr. Galicia, plan to keep the patient to determine whether he would need continued HD or not Poor oral intake: Likely secondary to chemotherapy. Continue Megace. Complaints of decreased appetite. Encouraged. Rash: Has rash on upper back and chest that started 2 days ago. Rash is papular and there is evidence of excoriation. Patient denies chest pain, dyspnea, wheeze. Lungs are clear on exam. - Only new medication is metoprolol, started 11/14/16. Monitor rash. - Was on multiple antibiotics previously broad spectrum coverage which may have caused the reaction. As per ID they will not start any antibiotic for now. - Benadryl available PRN - Hydrocortisone cream BID. - Improving Diarrhea: Was given one time dose of Imodium. Cdiff checked on 11/06/16 which was negative. - No complaints Generalized weakness - Patient has been evaluated by physical therapy and has been working on him. Recommends rolling walker, bedside commode and shower chair for use at home. - Continue with physical therapy until discharge. DVT prophylaxis: SCDs, KRISTEN sauer. Problem Qualifiers (1) Pneumonia: (2) Acute lymphocytic leukemia: Qualified Codes: C91.00 - Acute lymphoblastic leukemia not having achieved remission (3) Atrial fibrillation: Elin Mcleod MD Nov 26, 2016 19:15
[2016-11-27] VITALS (7 sets, daily range): BP systolic 114–128; BP diastolic 53–76; PULSE 66–80; RESP 17–20; TEMP 96–98.5; O2SAT 94–100
[2016-11-27] MEDS: diphenhydrAMINE HCL 25 MG CAP PO PRN (04:52)
[2016-11-27 06:02] LABS: AUTOMATED NEUTROPHIL # 13.6 TH/MM3 (1.8-7.7); BASOPHIL % 0.2 % (0.0-2.0); EOSINOPHIL # 0.3 TH/MM3 (0-0.4); EOSINOPHIL % 1.7 % (0.0-4.0); HEMATOCRIT 29.2 % (39.0-51.0); LYMPH % 1.4 % (9.0-44.0); LYMPHOCYTE # 0.3 TH/MM3 (1.0-4.8); MEAN CELL VOLUME 91.1 FL (80.0-100.0); MEAN CORPUSCULAR HGB CONC 34.1 % (32.0-36.0); MONO % 23.7 % (0.0-8.0); PLATELET COUNT 239 TH/MM3 (150-450); RED CELL DISTRIBUTION WIDTH 15.9 % (11.6-17.2); WHITE BLOOD COUNT 18.7 TH/MM3 (4.0-11.0)
[2016-11-27 06:06] LABS: HEMO FLAGS AUTO DIFF
[2016-11-27 06:33] LABS: BICARBONATE 22.8 MEQ/L (21.0-32.0); POTASSIUM 4.3 MEQ/L (3.5-5.1)
[2016-11-27 08:20] LABS: SCAN/DIFF AUTO DIFF CONFIRMED
--- NOTE | 2016-11-27 08:38 | PD.ONC.PN ---
Subjective Subjective Remarks Patient was seen and examined, vital signs, medications, labs and air quality consultant reports reviewed. Subjectively; he continues to have a 2 rash which diffusely involves his skin; head, face, torso (anterior and posterior) as well as bilateral upper and lower extremities. The itching is less severe today. He underwent punch biopsy of 2 of the inbound customer service representative lesions over the right side of his abdomen yesterday. He tells me he continues to urinate well and is eating much better as well. There were no acute cardiopulmonary events over the past 24 hours, he remains afebrile. Objective Data Date Time Temp Pulse Resp B/P (MAP) Pulse Ox O2 Delivery O2 Flow Rate FiO2 11/27/16 04:00 97.4 80 18 125/76 (92) 94 11/27/16 00:00 97.7 77 17 122/53 (76) 95 11/26/16 21:00 83 11/26/16 20:00 96.4 79 18 137/66 (89) 97 11/26/16 15:51 97.0 76 20 119/57 (77) 98 11/26/16 11:50 97.6 74 20 121/70 (87) 98 11/27/16 11/27/16 11/27/16 07:00 15:00 23:00 Output Total 450 ml Balance -450 ml Result Diagram: 11/27/16 0458 11/27/16 0458 Laboratory Results Laboratory Tests Test 11/27/16 04:58 White Blood Count 18.7 TH/MM3 Red Blood Count 3.20 MIL/MM3 Hemoglobin 9.9 GM/DL Hematocrit 29.2 % Mean Corpuscular Volume 91.1 FL Mean Corpuscular Hemoglobin 31.0 PG Mean Corpuscular Hemoglobin Concent 34.1 % Red Cell Distribution Width 15.9 % Platelet Count 239 TH/MM3 Mean Platelet Volume 8.7 FL Neutrophils (%) (Auto) 73.0 % Lymphocytes (%) (Auto) 1.4 % Monocytes (%) (Auto) 23.7 % Eosinophils (%) (Auto) 1.7 % Basophils (%) (Auto) 0.2 % Neutrophils # (Auto) 13.6 TH/MM3 Lymphocytes # (Auto) 0.3 TH/MM3 Monocytes # (Auto) 4.4 TH/MM3 Eosinophils # (Auto) 0.3 TH/MM3 Basophils # (Auto) 0.0 TH/MM3 CBC Comment AUTO DIFF Differential Comment AUTO DIFF CONFIRMED Blood Urea Nitrogen 82 MG/DL Creatinine 5.81 MG/DL Random Glucose 126 MG/DL Calcium Level 7.9 MG/DL Sodium Level 133 MEQ/L Potassium Level 4.3 MEQ/L Chloride Level 96 MEQ/L Carbon Dioxide Level 22.8 MEQ/L Anion Gap 14 MEQ/L Estimat Glomerular Filtration Rate 10 ML/MIN Administered Medications Medications (Trade) Dose Ordered Sig/Daniel Route PRN Reason Start Time Stop Time Status Last Admin Dose Admin Sodium Chloride (NS Flush) 2 ml UNSCH PRN IV FLUSH FLUSH AFTER USING IV ACCESS 10/24/16 01:45 11/25/16 04:46 Sodium Chloride (NS Flush) 2 ml BID IV FLUSH 10/24/16 09:00 11/26/16 21:14 Sodium Chloride (NS Flush) DAILY IVF 10/25/16 09:00 11/25/16 09:01 Heparin Sodium (Porcine) (Heparin Central Flush) DAILY IV FLUSH 10/25/16 09:00 11/26/16 04:53 Sodium Chloride (NS Flush) 2 ml UNSCH PRN IVF SEE PROTOCOL 10/24/16 13:15 11/16/16 09:28 Lactobacillus Acidophilus (Lactinex) 1 tab TID PO 10/24/16 18:00 11/26/16 17:42 Miscellaneous (Pill Splitter) 1 ea UNSCH PRN OTHER SEE LABEL COMMENTS 10/30/16 06:45 10/30/16 06:36 Sodium Chloride 1,000 ml @ 0 mls/hr Q0M PRN IV For Prime & Rinse Back 10/30/16 08:47 11/24/16 10:08 Heparin Sodium (Porcine) (Heparin Inj) 8,000 units UNSCH PRN IVF WITH DIALYSIS 10/30/16 09:00 11/19/16 15:27 Sodium Chloride (NS Flush) 5 ml UNSCH PRN IV FLUSH WITH DIALYSIS 10/30/16 09:00 11/26/16 04:52 Heparin Sodium (Porcine) (Heparin Inj) UNSCH PRN .XX WITH DIALYSIS 10/30/16 09:00 11/24/16 10:09 Gentamicin Sulfate (Gentamicin (Dialysis) Inj) 20 mg UNSCH PRN IV WITH DIALYSIS 10/30/16 09:00 11/24/16 10:09 Ondansetron HCl (Zofran Inj) 4 mg UNSCH PRN IV WITH DIALYSIS 10/30/16 09:00 11/03/16 23:59 Acetaminophen (Tylenol) 650 mg UNSCH PRN PO for headach, pain, temp > 101F 10/30/16 09:00 11/07/16 23:21 Diphenhydramine HCl (Benadryl) 25 mg UNSCH PRN PO for hives/itching/anaphylaxis 10/30/16 09:00 11/27/16 04:52 Mupirocin (Bactroban 2% Oint) 1 applic Q12HR TOPICAL 11/01/16 21:00 11/20/16 09:00 Ondansetron HCl (Zofran Inj) 4 mg Q6H PRN IV PUSH nausea 11/04/16 08:45 11/11/16 20:57 Calcium/Vitamin D (Oscal-D 250-125) 500 mg Q12HR PO 11/07/16 21:00 11/26/16 21:12 Hydromorphone HCl (Dilaudid Pf Inj) 1 mg Q3H PRN IV PAIN 6-10 11/08/16 16:45 11/09/16 06:36 Diphenhydramine HCl (Benadryl) 25 mg Q4H PRN PO SEE LABEL COMMENTS 11/10/16 07:30 11/12/16 13:00 Metoprolol Tartrate (Lopressor) 25 mg Q12HR PO 11/14/16 09:00 11/26/16 21:12 Diltiazem HCl (Cardizem Cd) 240 mg DAILY PO 11/14/16 09:00 11/26/16 08:52 Loperamide HCl (Imodium) 2 mg Q4H PRN PO diarrhea 11/15/16 23:30 11/15/16 23:37 Hydrocortisone (Nutracort 1% Oint) 1 applic BID TOPICAL 11/17/16 13:30 11/27/16 13:29 11/25/16 22:30 Sodium Chloride (NS Flush) UNSCH PRN IVF SEE PROTOCOL 11/18/16 18:00 11/26/16 04:53 Pantoprazole Sodium (Protonix) 20 mg DAILY PO 11/26/16 09:00 11/26/16 08:52 Prednisone (Deltasone) 40 mg DAILY PO 11/26/16 09:00 11/26/16 08:52 Objective Remarks GENERAL APPEARANCE: Mr. Chou is an elderly male, he is tall and heavy-set, He sitting up, appears to be no acute distress. He is a diffuse maculopapular rash involving his face, torso and arms. HEENT: Head atraumatic, normocephalic, conjunctivae are pale. Sclerae are anicteric, EOMI, PERRLA, oral exam no pharyngeal erythema. He has a submucosal bruise along the right side of the soft palate. NECK: No palpable cervical or supraclavicular lymphadenopathy. Right . Right IJ dialysis catheter has been removed, it has been replaced by a tunneled Vas-Cath on the right side. RESPIRATORY: Good air movement bilaterally over the upper and middle lung zones , decreased breath sounds over the bases. No added breath sounds. CARDIOVASCULAR: Regular rate and rhythm, S1-S2. No obvious murmurs, gallops. ABDOMEN: Obese belly, soft, nontender, nondistended, no palpable organ enlargement, specifically no hepatosplenomegaly. EXTREMITIES: Lower extremities, positive for pretibial edema. No calf tenderness. PICC line in right arm. JAZ/LYMPH EXAMINATION: No cervical lymphadenopathy, no axillary lymphadenopathy and no inguinal lymphadenopathy. COMPUTER ENGINEERING TECHNOLOGIST: Exam without any abnormal findings specifically no motor or sensory deficits. Skin: Maculopapular rash diffusely present over most of his skin. 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 Monitor periodic CBC. -- Status post induction systemic therapy with hyper-CVAD with Rituxan. 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 S/p C1 Hyper-CVAD + R. -- Complicated by TLS and ARF requiring HD for this. -- He is ready for discharge from a hematologic standpoint. -- He will need to be set up with outpatient dialysis prior to discharge from a renal standpoint. 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 S/p cycle 1 Hyper-CVAD + Rituxan and IT cytarabine. Plan 1. B-cell ALL ([place] chromosome negative): Status post cycle #1 (Arm A ) hyper-CVAD with Rituxan and intrathecal chemotherapy. His counts have recovered. I would like to discharge him home before treating him with cycle # 2 (Arm B) Hyper-CVAD with Rituxan and intrathecal cytarabine. 2. ARF due to TLS; on HD. Renal function seems to not have recovered. He is urinating well and it is yet to be determined whether hemodialysis will be required for the long-term. 3. Rash: Biopsied yesterday, await pathologic findings. He does not need to remain in the hospital while we await the final results. Continue oral prednisone 40 MG by mouth daily which seems to be helping the itching. Disposition: Discharge home or to rehabilitation once outpatient hemodialysis has been arranged. Problem Qualifiers (1) Acute lymphocytic leukemia: Qualified Codes: C91.00 - Acute lymphoblastic leukemia not having achieved remission Sukhwinder Rice MD Nov 27, 2016 08:38
[2016-11-27] MEDS: predniSONE 20 MG TAB PO SCH (08:42)
[2016-11-27] MEDS: CALCIUM/VITAMIN D 250 MG/125 U TAB PO SCH ×2 (08:42→20:35)
[2016-11-27] MEDS: PANTOPRAZOLE SOD 20 MG DELAYED RELEASE TAB PO SCH (08:42)
[2016-11-27] MEDS: METOPROLOL TARTRATE 25 MG TAB PO SCH ×2 (08:42→20:34)
[2016-11-27] MEDS: DILTIAZEM-CD 240 MG CAP ER PO SCH (08:42)
[2016-11-27] MEDS: SODIUM CHLORIDE 0.9% FLUSH 10 ML FLUSH IVF PRN (08:43)
[2016-11-27] MEDS: SODIUM CHLORIDE 0.9% FLUSH 10 ML FLUSH IVF SCH (08:43)
[2016-11-27] MEDS: LACTOBACILLUS ACIDOPHILUS TAB PO SCH ×3 (08:43→17:56)
[2016-11-27] MEDS: HYDROCORTISONE 1% OINT 30 GM TUBE TOPICAL SCH (08:44)
[2016-11-27] MEDS: MUPIROCIN 2% OINT 22 GM TUBE TOPICAL SCH ×2 (08:44→20:48)
[2016-11-27] MEDS: SODIUM CHLORIDE 0.9% FLUSH 10 ML FLUSH IV FLUSH SCH ×2 (08:44→20:35)
--- NOTE | 2016-11-27 10:54 | HHI.NPPN ---
Subjective General Problems: Anemia, Edema, Hypertension Renal Failure: Acute Interval History He feels rash is getting worse. Biopsy was taken yesterday, results not available. Creatinine is only slightly higher today. (Nava Cabral) Review of Systems General Constitutional: Fatigue (Nava Cabral) Gastrointestinal GI Remarks loss of appetite (Nava Cabral) Skin Skin: Skin Rash (Nava Cabral) Objective Data Data Vital Signs Date Time Temp Pulse Resp B/P (MAP) Pulse Ox O2 Delivery O2 Flow Rate FiO2 11/27/16 07:50 96.0 72 20 128/64 (85) 99 11/27/16 04:00 97.4 80 18 125/76 (92) 94 11/27/16 00:00 97.7 77 17 122/53 (76) 95 11/26/16 21:00 83 11/26/16 20:00 96.4 79 18 137/66 (89) 97 11/26/16 15:51 97.0 76 20 119/57 (77) 98 11/26/16 11:50 97.6 74 20 121/70 (87) 98 (Nava Cabral) -: 11/27/16 0458 11/27/16 0458 Tubes & Lines: Perma-Cath (Nava Cabral) Physical Exam General Appearance: Well Developed, Well Nourished, No Acute Distress, Comfortable (Nava Cabral) Eyes Eye Exam: Pupils Equal, Pupils Reactive (Nava Cabral) Throat Throat Exam: Oral Mucosa [place] & Moist (Nava Cabral) Neck Neck Exam: Neck Supple (Nava Cabral) Pulmonary Resp Exam: Clear Bilaterally, Breath Sounds Equal, No Distress (Nava Cabral) Cardiology CV Exam: Regular, Normal Sinus Rhythm, Good Perfusion (Nava Cabral) Gastrointestinal/Abdomen GI Exam: Soft, Non-Tender, Bowel Sounds Present, Positive Bowel Movement (Nava Cabral) Musculoskeletal MS Exam: Joints Intact, Normal Gait, Normal Tone MS Remarks generalized weakness (Nava Cabral) Integumentary Skin Exam: Clear, Warm, Dry, Intact Skin Remarks systemic papular rash, continues on lower body, abdomen, trunk, and legs; previously was more on upper body. 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 To follow outpatient, oncology has cleared for discharge (3) Hypocalcemia ICD Codes: E83.51 - Hypocalcemia Status: Acute Plan: improved, monitor (4) Pancytopenia ICD Codes: D61.818 - Other pancytopenia Status: Acute Plan: Resolved. 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 Monitor. (6) Rash and nonspecific skin eruption ICD Codes: R21 - Rash and other nonspecific skin eruption Plan: Unclear the etiology. Appears to be drug induced, but chart reviewed and he was not given anything new during that time. On Benadryl and steroids Dermatology has performed a punch biopsy yesterday, await results. (Nava Cabral) Plan patient was seen and examined. Non oliguric. Defer dialysis. Skin biopsy performed. Rash persists. Monitor urine output and renal function. (Clay Galicia MD) Problem Qualifiers (1) Acute lymphocytic leukemia: Qualified Codes: C91.00 - Acute lymphoblastic leukemia not having achieved remission Nava Cabral Nov 27, 2016 10:54 Clay Galicia MD Nov 28, 2016 13:44
--- NOTE | 2016-11-27 11:56 | HHI.PR ---
cc: Urvashi Funk MD Subjective Subjective Notes DAILY PROGRESS NOTE FOR SURGICAL ATTENDING, DR. URVASHI FUNK Sitting on the side of the bed No issues overnight Pain controlled Objective Vitals/I&O Vital Signs Date Time Temp Pulse Resp B/P (MAP) Pulse Ox O2 Delivery O2 Flow Rate FiO2 11/27/16 07:50 96.0 72 20 128/64 (85) 99 Labs Laboratory Tests Test 11/27/16 04:58 White Blood Count 18.7 Red Blood Count 3.20 Hemoglobin 9.9 Hematocrit 29.2 Mean Corpuscular Volume 91.1 Mean Corpuscular Hemoglobin 31.0 Mean Corpuscular Hemoglobin Concent 34.1 Red Cell Distribution Width 15.9 Platelet Count 239 Mean Platelet Volume 8.7 Neutrophils (%) (Auto) 73.0 Lymphocytes (%) (Auto) 1.4 Monocytes (%) (Auto) 23.7 Eosinophils (%) (Auto) 1.7 Basophils (%) (Auto) 0.2 Neutrophils # (Auto) 13.6 Lymphocytes # (Auto) 0.3 Monocytes # (Auto) 4.4 Eosinophils # (Auto) 0.3 Basophils # (Auto) 0.0 CBC Comment AUTO DIFF Differential Comment AUTO DIFF CONFIRMED Blood Urea Nitrogen 82 Creatinine 5.81 Random Glucose 126 Calcium Level 7.9 Sodium Level 133 Potassium Level 4.3 Chloride Level 96 Carbon Dioxide Level 22.8 Anion Gap 14 Estimat Glomerular Filtration Rate 10 Date/Time Source Procedure Growth Status 11/15/16 10:50 Blood Peripheral Aerobic Blood Culture - Final NO GROWTH IN 5 DAYS Complete 11/15/16 10:50 Blood Peripheral Anaerobic Blood Culture - Final NO GROWTH IN 5 DAYS Complete 11/12/16 07:50 Stool Stool Stool Occult Blood (JENIFER) - Final HEMOCCULT POSITIVE Complete 10/29/16 09:20 Urine Random Urine Urine Culture - Final NO GROWTH IN 48 HOURS. Complete Cardiovascular: Regular Lungs: Clear Abdomen: Other (skin biopsy sites c/d/i; suture in place ) Extremities: Other (see below ) Narrative Exam Diffuse papular rash over chest/torso/BUE/BLE A/P Assessment and Plan 71 year old male with Acute lymphocytic leukemia; diffuse rash; s/p punch biopsy -Regular diet -Pain controlled -Sites c/d/i; sutures in place -Await pathology; Oncology to follow up -Follow up with Dr. Funk in about 10 days for suture removal; Patient states he will be back in hospital for 2nd round of chemotherapy at that time--I'd be happy to come remove sutures at that time while is in the hospital -GS to sign off Attending Statement NOTE FOR SURGICAL ATTENDING, DR. URVASHI FUNK I agree with above assessment and plan. The exam, history, and the medical decision-making described in the above note were completed with the assistance of the mid-level provider. I reviewed and agree with the findings presented. The following services were provided during this hospital visit: Chart data review, vital sign assessments/reviewing monitor data Review of consultations notes if present. Medication orders/review and/or management Ordering and/or reviewing lab tests Ordering and/or interpreting/reviewing x-rays and/or diagnostic studies Care of the patient and discussion of the patient with the care team Documentation time To help prompt me to consider important information that might be impacting today's encounter and assessment, information from prior notes written by myself or my colleagues may have been "brought forward/copy and pasted" into today's note. Ashley Zamora Nov 27, 2016 11:56 Urvashi Funk MD Nov 27, 2016 17:18
[2016-11-27] MEDS: SEVELAMER CARBONATE 800 MG TAB PO SCH ×2 (12:00→17:56)
--- NOTE | 2016-11-27 17:23 | MB ---
cc: URVASHI FUNK M.D. DATE OF CONSULTATION: 11/27/2016 REASON FOR CONSULTATION: Severe rash in the skin biopsy to help and treatment. HISTORY OF PRESENT ILLNESS: History is a pleasant gentleman who is been admitted to the hospital he has acute lymphocytic leukemia he has been on chemotherapy. He is requiring dialysis. Unfortunately developed generalized rash on his abdomen, arms and back that is fairly uncomfortable. He is started on steroids the medical team has asked surgery to perform a skin biopsy to aid in the diagnosis. There is some differential of possible Sweet syndrome. PAST HISTORY All documented the chart therefore will not be repeated he is getting treatment for his lymphocytic leukemia, he has thrombocytopenia as well. He has had appendectomy in the past. REVIEW OF SYSTEMS On pertinent review of systems is he itchy all over where the rash is. PHYSICAL EXAMINATION: IN GENERAL: On examination he is sitting up in bed. He has a vas cath in the right subclavian area. He has a PICC line in the right arm. He is generalized alert, oriented, comfortable, but he irritated with a rash. He had a rash diffusely on his anterior abdomen and chest and back and upper and lower extremities. Otherwise exam is benign. ASSESSMENT/PLAN: Generalized rash in need of skin biopsy. We will plan to do this later today once the equipment becomes available. We can do it by the bedside. This was discussed in detail with the patient. He appeared to understand. MD MARQUIS Ignacio/naomi /5:02 PM /5:[address] [facility] PARTNERSJerrod
[2016-11-27 19:09] LABS: MAGNESIUM 1.6 MG/DL (1.5-2.5)
--- NOTE | 2016-11-27 19:11 | HHI.PR ---
Subjective Remarks Patient feeling disappointed because of the skin rash It's getting more spreading around his lower abdomen upper thighs Fever or chills, still awaiting on skin punch biopsy. Uneventful night Objective Vitals Vital Signs Date Time Temp Pulse Resp B/P (MAP) Pulse Ox O2 Delivery O2 Flow Rate FiO2 11/27/16 11:50 97.3 66 20 119/56 (77) 100 11/27/16 07:50 96.0 72 20 128/64 (85) 99 11/27/16 04:00 97.4 80 18 125/76 (92) 94 11/27/16 00:00 97.7 77 17 122/53 (76) 95 11/26/16 21:00 83 11/26/16 20:00 96.4 79 18 137/66 (89) 97 I/O 11/26/16 11/26/16 11/26/16 11/27/16 11/27/16 11/27/16 07:00 15:00 23:00 07:00 15:00 23:00 Intake Total 740 ml 1360 ml Output Total 400 ml 300 ml 450 ml 650 ml Balance -400 ml 440 ml -450 ml 710 ml Intake Oral 740 ml 1360 ml Output Urine Total 400 ml 300 ml 450 ml 650 ml # Voids 2 # Bowel Movements 0 0 Result Diagram: 11/27/16 0458 11/27/16 0458 Objective Remarks - - GENERAL: This is a well-nourished, well-developed patient, in no apparent distress. Lying in hospital bed. Sleeping but easily awakens to voice. Appears comfortable. SKIN: Warm and dry. Erythematous macupapular rash throughout trunk and back area on the upper extremity, upper thighs, bilateral side of the abdomen - HEENT: Normocephalic. Pupils equal round and reactive. Nose without bleeding. Airway patent. NECK: Trachea midline. Supple. CARDIOVASCULAR: Regular rate and rhythm without murmurs, gallops, or rubs. RESPIRATORY: Diminished bases. No wheezes, rales, or rhonchi. GASTROINTESTINAL: Abdomen soft, non-tender, nondistended. Bowel Sounds normoactive x4. MUSCULOSKELETAL: Extremities without clubbing, cyanosis, BLE trace edema. NEUROLOGICAL: Awake and alert. Oriented to time, place, person. No focal neuro deficit. Moves all extremities. Normal speech. 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 having achieved remission Status: Acute (4) Hypertension ICD Code: I10 - Essential (primary) hypertension Status: Chronic (5) Acute renal failure ICD Code: N17.9 - Acute kidney failure, unspecified (6) 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 11/24: Recurrent pruritic macular rash today, feeling weak after dialysis, applied hydrocortisone, discharged once cleared by nephrology Patient is a 71-year-old male with 11/25: low-grade fever of 100, Pruritic rash getting worse papular on the upper extremity, discussed with hematology oncology recommended dose of steroid, discussed with Dr. Paula, Dr. Rice will be following, 11/26: Patient had a punch skin biopsy, started on prednisone by the area development consultant oncologist, suspecting drug-induced rash, held PPI, simethicone:, senior publications specialist still following decision to be made regarding the need for watermaster HD, hemodialysis and Bumex has been held by senior publications specialist today, repeat BMP in a.m. 11/27: Increased WBC to 18,000 mostly due to cortisone, skin rash still exist, awaiting skin punch biopsy, increase phosphorus> nephrology started Renvela, BMP in a.m. A/P: ALL: Appreciate oncology recommendations. Continue chemotherapy (hyperCVAD + Rituxan & Cytarabine). - Patient will continue outpatient chemotherapy. Follow up with oncology - Hematology/Oncology states patient is ready for discharge from hematologic standpoint. Requires readmission in the upcoming 2 weeks for cycle #2/arm B Hyper- CVAD - continue on po Acyclovir and Diflucan prophylaxis Pneumonia: Off antibiotics per infectious disease. DuoNeb as needed. Stable on room air. - ID signed off. Clinically stable on infectious disease standpoint. Hypertension: Continue amlodipine. Vasotec IV as needed. Blood pressure control improved. Tumor lysis syndrome: S/P Rasburicase. Appreciate oncology, nephrology management. Atrial fibrillation with RVR: Appreciate cardiology recommendations.2-D echocardiogram shows ejection fraction 55-60%. Continue oral Cardizem, metoprolol. Acute renal failure: Dialysis per nephrology (--). Adequate UO. . Avoid nephrotoxins. - s/p permacath placement - Patient will need outpatient hemodialysis set up. As per her senior publications specialist , unknown if patient is end-stage renal but will set him up for hemodialysis as an outpatient. - Case management is working on setting him up for [facility] -Per Dr. Galicia, plan to keep the patient to determine whether he would need continued HD or not Poor oral intake: Likely secondary to chemotherapy. Continue Megace. Complaints of decreased appetite. Encouraged. Rash: Has rash on upper back and chest that started 2 days ago. Rash is papular and there is evidence of excoriation. Patient denies chest pain, dyspnea, wheeze. Lungs are clear on exam. - Only new medication is metoprolol, started 11/14/16. Monitor rash. - Was on multiple antibiotics previously broad spectrum coverage which may have caused the reaction. As per ID they will not start any antibiotic for now. - Benadryl available PRN - Hydrocortisone cream BID. - Improving Diarrhea: Was given one time dose of Imodium. Cdiff checked on 11/06/16 which was negative. - No complaints Generalized weakness - Patient has been evaluated by physical therapy and has been working on him. Recommends rolling walker, bedside commode and shower chair for use at home. - Continue with physical therapy until discharge. DVT prophylaxis: SCDs, KRISTEN sauer. Problem Qualifiers (1) Pneumonia: (2) Acute lymphocytic leukemia: Qualified Codes: C91.00 - Acute lymphoblastic leukemia not having achieved remission (3) Atrial fibrillation: Elin Mcleod MD Nov 27, 2016 19:11
[2016-11-28] VITALS (7 sets, daily range): BP systolic 110–140; BP diastolic 52–70; PULSE 65–72; RESP 16–22; TEMP 96–98.2; O2SAT 93–100
[2016-11-28] MEDS: diphenhydrAMINE HCL 25 MG CAP PO PRN ×2 (00:30→06:02)
[2016-11-28 07:33] LABS: BICARBONATE 24.1 MEQ/L (21.0-32.0); POTASSIUM 4.3 MEQ/L (3.5-5.1)
[2016-11-28] MEDS: CALCIUM/VITAMIN D 250 MG/125 U TAB PO SCH ×2 (07:59→21:38)
[2016-11-28] MEDS: DILTIAZEM-CD 240 MG CAP ER PO SCH (07:59)
[2016-11-28] MEDS: LACTOBACILLUS ACIDOPHILUS TAB PO SCH ×3 (07:59→17:10)
[2016-11-28] MEDS: predniSONE 20 MG TAB PO SCH (07:59)
[2016-11-28] MEDS: SEVELAMER CARBONATE 800 MG TAB PO SCH ×3 (07:59→17:10)
[2016-11-28] MEDS: METOPROLOL TARTRATE 25 MG TAB PO SCH ×2 (07:59→21:38)
[2016-11-28] MEDS: PANTOPRAZOLE SOD 20 MG DELAYED RELEASE TAB PO SCH (07:59)
[2016-11-28] MEDS: SODIUM CHLORIDE 0.9% FLUSH 10 ML FLUSH IVF SCH (08:00)
[2016-11-28] MEDS: MUPIROCIN 2% OINT 22 GM TUBE TOPICAL SCH ×2 (08:00→21:00)
[2016-11-28] MEDS: SODIUM CHLORIDE 0.9% FLUSH 10 ML FLUSH IVF PRN (08:00)
[2016-11-28] MEDS: SODIUM CHLORIDE 0.9% FLUSH 10 ML FLUSH IV FLUSH SCH ×2 (08:00→21:42)
--- NOTE | 2016-11-28 10:01 | HHI.NPPN ---
Subjective General Problems: Anemia, Edema, Hypertension Renal Failure: Acute Interval History Creatinine improving off dialysis. He feels he has made more urine. Rash also improving. (Nava Cabral) Review of Systems General Constitutional: Fatigue (Nava Cabral) Gastrointestinal GI Remarks loss of appetite (Nava Cabral) Skin Skin: Skin Rash (Nava Cabral) Objective Data Data Vital Signs Date Time Temp Pulse Resp B/P (MAP) Pulse Ox O2 Delivery O2 Flow Rate FiO2 11/28/16 08:00 96.2 68 18 140/64 (89) 100 11/28/16 04:00 98.2 72 22 110/59 (76) 97 11/28/16 00:00 97.5 69 20 126/62 (83) 98 11/27/16 21:00 71 11/27/16 20:32 98.5 75 20 114/61 (78) 100 11/27/16 15:50 97.0 66 20 117/60 (79) 98 11/27/16 11:50 97.3 66 20 119/56 (77) 100 (Nava Cabral) -: 11/27/16 0458 11/28/16 0606 Tubes & Lines: Perma-Cath (Nava Cabral) Physical Exam General Appearance: Well Developed, Well Nourished, No Acute Distress, Comfortable (Nava Cabral) Eyes Eye Exam: Pupils Equal, Pupils Reactive (Nava Cabral) Throat Throat Exam: Oral Mucosa [place] & Moist (Nava Cabral) Neck Neck Exam: Neck Supple (Nava Cabral) Pulmonary Resp Exam: Clear Bilaterally, Breath Sounds Equal, No Distress (Nava Cabral) Cardiology CV Exam: Regular, Normal Sinus Rhythm, Good Perfusion (Nava Cabral) Gastrointestinal/Abdomen GI Exam: Soft, Non-Tender, Bowel Sounds Present, Positive Bowel Movement (Nava Cabral) Musculoskeletal MS Exam: Joints Intact, Normal Gait, Normal Tone MS Remarks generalized weakness (Nava Cabral) Integumentary Skin Exam: Clear, Warm, Dry, Intact Skin Remarks systemic papular rash, continues on lower body, abdomen, trunk, and legs; previously was more on upper body. 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 To follow outpatient, oncology has cleared for discharge (3) Hypocalcemia ICD Codes: E83.51 - Hypocalcemia Status: Acute Plan: improved, monitor (4) Pancytopenia ICD Codes: D61.818 - Other pancytopenia Status: Acute Plan: Resolved. Monitor (5) Rash and nonspecific skin eruption ICD Codes: R21 - Rash and other nonspecific skin eruption Plan: Unclear the etiology. Appears to be drug induced, but chart reviewed and he was not given anything new during that time. On Benadryl and steroids Dermatology has performed a punch biopsy yesterday, await results. (Nava Cabral) Plan patient was seen and examined. Agree with above assessment and plan. Creatinine is better. We will defer dialysis. Higher BUN is due to Prednisone. Consider tapering it down. (Clay Galicia MD) Problem Qualifiers (1) Acute lymphocytic leukemia: Qualified Codes: C91.00 - Acute lymphoblastic leukemia not having achieved remission Nava Cabral Nov 28, 2016 10:01 Clay Galicia MD Nov 28, 2016 14:00
--- NOTE | 2016-11-28 12:13 | HHI.PR ---
Subjective Remarks Patient stated patient stated the rash is getting slightly better and fade out however it still there Business Broker wants to monitor BMP for the next 1 or 2 days before deciding on removing the catheter and stopping dialysis Objective Vitals Vital Signs Date Time Temp Pulse Resp B/P (MAP) Pulse Ox O2 Delivery O2 Flow Rate FiO2 11/28/16 08:00 96.2 68 18 140/64 (89) 100 11/28/16 04:00 98.2 72 22 110/59 (76) 97 11/28/16 00:00 97.5 69 20 126/62 (83) 98 11/27/16 21:00 71 11/27/16 20:32 98.5 75 20 114/61 (78) 100 11/27/16 15:50 97.0 66 20 117/60 (79) 98 I/O 11/27/16 11/27/16 11/27/16 11/28/16 11/28/16 11/28/16 07:00 15:00 23:00 07:00 15:00 23:00 Intake Total 1360 ml 240 ml Output Total 450 ml 650 ml 1300 ml Balance -450 ml 710 ml -1060 ml Intake Oral 1360 ml 240 ml Output Urine Total 450 ml 650 ml 1300 ml # Bowel Movements 0 Result Diagram: 11/27/16 0458 11/28/16 0606 Objective Remarks - - GENERAL: This is a well-nourished, well-developed patient, in no apparent distress. Lying in hospital bed. Sleeping but easily awakens to voice. Appears comfortable. SKIN: Warm and dry. Erythematous macupapular rash throughout trunk and back area on the upper extremity, upper thighs, bilateral side of the abdomen - HEENT: Normocephalic. Pupils equal round and reactive. Nose without bleeding. Airway patent. NECK: Trachea midline. Supple. CARDIOVASCULAR: Regular rate and rhythm without murmurs, gallops, or rubs. RESPIRATORY: Diminished bases. No wheezes, rales, or rhonchi. GASTROINTESTINAL: Abdomen soft, non-tender, nondistended. Bowel Sounds normoactive x4. MUSCULOSKELETAL: Extremities without clubbing, cyanosis, BLE trace edema. NEUROLOGICAL: Awake and alert. Oriented to time, place, person. No focal neuro deficit. Moves all extremities. Normal speech. 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 having achieved remission Status: Acute (4) Hypertension ICD Code: I10 - Essential (primary) hypertension Status: Chronic (5) Acute renal failure ICD Code: N17.9 - Acute kidney failure, unspecified (6) Tumor lysis syndrome ICD Code: E88.3 - Tumor lysis syndrome (7) Atrial fibrillation ICD Code: I48.91 - Unspecified atrial fibrillation Status: Acute Assessment and Plan A/P: ALL: Oncology signed off. Continue chemotherapy (hyperCVAD + Rituxan & Cytarabine). - Patient will continue outpatient chemotherapy. Follow up with oncology - Hematology/Oncology states patient is ready for discharge from hematologic standpoint. Requires readmission in the upcoming 2 weeks for cycle #2/arm B Hyper- CVAD - continue on po Acyclovir and Diflucan prophylaxis Increased WB to 18,000 mostly due to cortisone, skin rash still exist, awaiting skin punch biopsy, increase phosphorus> nephrology started Renvelelmo BMP in a.m. Pneumonia: Off antibiotics per infectious disease. DuoNeb as needed. Stable on room air. - ID signed off. Clinically stable on infectious disease standpoint. Hypertension: Continue amlodipine. Vasotec IV as needed. Blood pressure control improved. Tumor lysis syndrome: S/P Rasburicase. Appreciate oncology, nephrology management. Atrial fibrillation with RVR: Appreciate cardiology recommendations.2-D echocardiogram shows ejection fraction 55-60%. Continue oral Cardizem, metoprolol. Acute renal failure: Dialysis per nephrology (M-W-). Adequate UO. . Avoid nephrotoxins. - s/p permacath placement - As per her special events director, unknown if patient is end-stage renal but will set him up for hemodialysis as an outpatient. - Case management is working on setting him up for [facility] -Per Dr. Galicia, plan to keep the patient to determine whether he would need continued HD or not, mostly the next 1 or 2 days Poor oral intake: Likely secondary to chemotherapy. Continue Megace. Complaints of decreased appetite. Encouraged. Rash: Has rash on upper back and chest that started 2 days ago. Rash is papular and there is evidence of excoriation. Patient denies chest pain, dyspnea, wheeze. Lungs are clear on exam. - Only new medication is metoprolol, started 11/14/16. Monitor rash. - Was on multiple antibiotics previously broad spectrum coverage which may have caused the reaction. ID did not recommend antibiotic - Benadryl available PRN, Hydrocortisone cream -Collagen suggesting drug induced, most of the nonessential medication have been stopped -Status post skin punch biopsy, awaiting pathology -Started on prednisone by oncology Diarrhea: Was given one time dose of Imodium. Cdiff checked on 11/06/16 which was negative. - No complaints Generalized weakness - Patient has been evaluated by physical therapy and has been working on him. Recommends rolling walker, bedside commode and shower chair for use at home. - Continue with physical therapy until discharge. DVT prophylaxis: KRISTEN Seaman. Problem Qualifiers (1) Pneumonia: (2) Acute lymphocytic leukemia: Qualified Codes: C91.00 - Acute lymphoblastic leukemia not having achieved remission (3) Atrial fibrillation: Elin Mcleod MD Nov 28, 2016 12:13
--- NOTE | 2016-11-28 19:09 | PD.ONC.PN ---
Subjective Subjective Remarks Patient seen and examined, vital signs, labs and medications reviewed. Subjectively he reports his rash lightens up overnight however after he takes his morning medications the rash flares up. He is happy to report his kidney functions are improved and that hemodialysis was not delivered today and despite this his kidney function was better. Objective Data Date Time Temp Pulse Resp B/P (MAP) Pulse Ox O2 Delivery O2 Flow Rate FiO2 11/28/16 17:00 65 16 121/66 (84) 93 11/28/16 12:00 96.0 66 18 139/70 (93) 98 11/28/16 08:00 96.2 68 18 140/64 (89) 100 11/28/16 04:00 98.2 72 22 110/59 (76) 97 11/28/16 00:00 97.5 69 20 126/62 (83) 98 11/27/16 21:00 71 11/27/16 20:32 98.5 75 20 114/61 (78) 100 11/28/16 11/28/16 11/28/16 07:00 15:00 23:00 Intake Total 240 ml 1134 ml Output Total 1300 ml 800 ml Balance -1060 ml 334 ml Result Diagram: 11/27/16 0458 11/28/16 0606 Laboratory Results Laboratory Tests Test 11/28/16 06:06 Blood Urea Nitrogen 88 MG/DL Creatinine 4.80 MG/DL Random Glucose 145 MG/DL Albumin 2.8 GM/DL Calcium Level 8.0 MG/DL Phosphorus Level 4.8 MG/DL Sodium Level 137 MEQ/L Potassium Level 4.3 MEQ/L Chloride Level 100 MEQ/L Carbon Dioxide Level 24.1 MEQ/L Anion Gap 13 MEQ/L Estimat Glomerular Filtration Rate 12 ML/MIN Administered Medications Medications (Trade) Dose Ordered Sig/Daniel Route PRN Reason Start Time Stop Time Status Last Admin Dose Admin Sodium Chloride (NS Flush) 2 ml UNSCH PRN IV FLUSH FLUSH AFTER USING IV ACCESS 10/24/16 01:45 11/25/16 04:46 Sodium Chloride (NS Flush) 2 ml BID IV FLUSH 10/24/16 09:00 11/28/16 08:00 Sodium Chloride (NS Flush) DAILY IVF 10/25/16 09:00 11/25/16 09:01 Heparin Sodium (Porcine) (Heparin Central Flush) DAILY IV FLUSH 10/25/16 09:00 11/26/16 04:53 Sodium Chloride (NS Flush) 2 ml UNSCH PRN IVF SEE PROTOCOL 10/24/16 13:15 11/16/16 09:28 Lactobacillus Acidophilus (Lactinex) 1 tab TID PO 10/24/16 18:00 11/28/16 17:10 Miscellaneous (Pill Splitter) 1 ea UNSCH PRN OTHER SEE LABEL COMMENTS 10/30/16 06:45 10/30/16 06:36 Sodium Chloride 1,000 ml @ 0 mls/hr Q0M PRN IV For Prime & Rinse Back 10/30/16 08:47 11/24/16 10:08 Heparin Sodium (Porcine) (Heparin Inj) 8,000 units UNSCH PRN IVF WITH DIALYSIS 10/30/16 09:00 11/19/16 15:27 Sodium Chloride (NS Flush) 5 ml UNSCH PRN IV FLUSH WITH DIALYSIS 10/30/16 09:00 11/26/16 04:52 Heparin Sodium (Porcine) (Heparin Inj) UNSCH PRN .XX WITH DIALYSIS 10/30/16 09:00 11/24/16 10:09 Gentamicin Sulfate (Gentamicin (Dialysis) Inj) 20 mg UNSCH PRN IV WITH DIALYSIS 10/30/16 09:00 11/24/16 10:09 Ondansetron HCl (Zofran Inj) 4 mg UNSCH PRN IV WITH DIALYSIS 10/30/16 09:00 11/03/16 23:59 Acetaminophen (Tylenol) 650 mg UNSCH PRN PO for headach, pain, temp > 101F 10/30/16 09:00 11/07/16 23:21 Diphenhydramine HCl (Benadryl) 25 mg UNSCH PRN PO for hives/itching/anaphylaxis 10/30/16 09:00 11/28/16 06:02 Mupirocin (Bactroban 2% Oint) 1 applic Q12HR TOPICAL 11/01/16 21:00 11/20/16 09:00 Ondansetron HCl (Zofran Inj) 4 mg Q6H PRN IV PUSH nausea 11/04/16 08:45 11/11/16 20:57 Calcium/Vitamin D (Oscal-D 250-125) 500 mg Q12HR PO 11/07/16 21:00 11/28/16 07:59 Hydromorphone HCl (Dilaudid Pf Inj) 1 mg Q3H PRN IV PAIN 6-10 11/08/16 16:45 11/09/16 06:36 Diphenhydramine HCl (Benadryl) 25 mg Q4H PRN PO SEE LABEL COMMENTS 11/10/16 07:30 11/12/16 13:00 Metoprolol Tartrate (Lopressor) 25 mg Q12HR PO 11/14/16 09:00 11/28/16 07:59 Diltiazem HCl (Cardizem Cd) 240 mg DAILY PO 11/14/16 09:00 11/28/16 07:59 Loperamide HCl (Imodium) 2 mg Q4H PRN PO diarrhea 11/15/16 23:30 11/15/16 23:37 Sodium Chloride (NS Flush) UNSCH PRN IVF SEE PROTOCOL 11/18/16 18:00 11/26/16 04:53 Pantoprazole Sodium (Protonix) 20 mg DAILY PO 11/26/16 09:00 11/28/16 07:59 Prednisone (Deltasone) 40 mg DAILY PO 11/26/16 09:00 11/28/16 07:59 Sevelamer Carbonate (Renvela) 800 mg TIDAC PO 11/27/16 12:00 11/28/16 17:10 Objective Remarks GENERAL APPEARANCE: Mr. Chou is an elderly male, he is tall and heavy-set, He sitting up, appears to be no acute distress. He is a diffuse maculopapular rash involving his face, torso and arms. HEENT: Head atraumatic, normocephalic, conjunctivae are pale. Sclerae are anicteric, EOMI, PERRLA, oral exam no pharyngeal erythema. He has a submucosal bruise along the right side of the soft palate. NECK: No palpable cervical or supraclavicular lymphadenopathy. Right . Right IJ dialysis catheter has been removed, it has been replaced by a tunneled Vas-Cath on the right side. RESPIRATORY: Good air movement bilaterally over the upper and middle lung zones , decreased breath sounds over the bases. No added breath sounds. CARDIOVASCULAR: Regular rate and rhythm, S1-S2. No obvious murmurs, gallops. ABDOMEN: Obese belly, soft, nontender, nondistended, no palpable organ enlargement, specifically no hepatosplenomegaly. EXTREMITIES: Lower extremities, positive for pretibial edema. No calf tenderness. PICC line in right arm. JAZ/LYMPH EXAMINATION: No cervical lymphadenopathy, no axillary lymphadenopathy and no inguinal lymphadenopathy. LOWERATOR OPERATOR: Exam without any abnormal findings specifically no motor or sensory deficits. Skin: Maculopapular rash diffusely present over most of his skin. 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 Monitor periodic CBC. -- Status post induction systemic therapy with hyper-CVAD with Rituxan. 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 S/p C1 Hyper-CVAD + R. -- Complicated by TLS and ARF requiring HD for this. -- He is ready for discharge from a hematologic standpoint. -- He will need to be set up with outpatient dialysis prior to discharge from a renal standpoint. 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 S/p cycle 1 Hyper-CVAD + Rituxan and IT cytarabine. Plan 1. B-cell ALL ([place] chromosome negative): Status post cycle #1 (Arm A ) hyper-CVAD with Rituxan and intrathecal chemotherapy. His counts have recovered. I would like to discharge him home before treating him with cycle # 2 (Arm B) Hyper-CVAD with Rituxan and intrathecal cytarabine. 2. ARF due to TLS; hemodialysis was held today given the improvement in his renal function. Nephrology team remains cautiously optimistic that patient may no longer require hemodialysis due to renal recovery. 3. Rash: Biopsied yesterday, await pathologic findings. He does not need to remain in the hospital while we await the final results. Continue oral prednisone 40 MG by mouth daily which seems to be helping the itching. Disposition: Discharge home or to rehabilitation once outpatient hemodialysis has been arranged. Problem Qualifiers (1) Acute lymphocytic leukemia: Qualified Codes: C91.00 - Acute lymphoblastic leukemia not having achieved remission Sukhwinder Rice MD Nov 28, 2016 19:09
[2016-11-29] VITALS (8 sets, daily range): BP systolic 111–162; BP diastolic 46–72; PULSE 61–72; RESP 14–20; TEMP 96.1–98.5; O2SAT 97–100
[2016-11-29] MEDS: diphenhydrAMINE HCL 25 MG CAP PO PRN (04:45)
[2016-11-29 05:54] LABS: POTASSIUM 4.2 MEQ/L (3.5-5.1)
--- NOTE | 2016-11-29 08:04 | HHI.PR ---
Subjective Remarks resting comfortably with no distress. denies pain. no new complaints. Objective Vitals Vital Signs Date Time Temp Pulse Resp B/P (MAP) Pulse Ox O2 Delivery O2 Flow Rate FiO2 11/29/16 04:00 98.5 68 18 116/46 (69) 99 11/29/16 00:00 97.5 70 18 111/60 (77) 99 11/28/16 21:00 70 11/28/16 20:00 97.9 72 19 113/52 (72) 100 11/28/16 17:00 65 16 121/66 (84) 93 11/28/16 12:00 96.0 66 18 139/70 (93) 98 I/O 11/28/16 11/28/16 11/28/16 11/29/16 11/29/16 11/29/16 07:00 15:00 23:00 07:00 15:00 23:00 Intake Total 240 ml 1134 ml 480 ml 582 ml Output Total 1300 ml 800 ml 450 ml 600 ml Balance -1060 ml 334 ml 30 ml -18 ml Intake Oral 240 ml 1134 ml 480 ml 240 ml IV Total 342 ml Output Urine Total 1300 ml 800 ml 450 ml 600 ml # Bowel Movements 1 Result Diagram: 11/27/16 0458 11/29/16 0448 Imaging Last Impressions Catheter Placement X-Ray 11/18/16 0000 Signed Impressions: Service Date/Time: Friday, November 18, 2016 16:47 - CONCLUSION: Uncomplicated PermaCath placement as above. Balwinder Oliver MD Gall Bladder Ultrasound 11/09/16 0000 Signed Impressions: Service Date/Time: Wednesday, November 09, 2016 12:22 - CONCLUSION: 1. Increased echogenicity throughout the liver suggestive of fatty infiltration. The liver is enlarged at 18.5 cm. 2. There are gallstones in the gallbladder. No biliary tract obstruction. Prasad Cade MD Abdomen/Pelvis CT 11/08/16 0000 Signed Impressions: Service Date/Time: Tuesday, November 08, 2016 15:00 - CONCLUSION: #1. Small right-sided pleural effusion. #2. Hazy increased density identified adjacent to the head of the pancreas as compared to the body and tail which may represent early changes of acute pancreatitis. Recommend correlation with patient's laboratory values. #3. Small anterior hernia with preperitoneal fat. This is seen approximately 2 cm superior to the umbilicus. Darcie Evans MD Chest X-Ray 11/01/16 0000 Signed Impressions: Service Date/Time: Tuesday, November 01, 2016 14:05 - CONCLUSION: Bibasilar densities likely atelectasis. Neal Castro MD Renal Ultrasound 10/30/16 0000 Signed Impressions: Service Date/Time: October 08:13 - CONCLUSION: Unremarkable exam with no evidence of hydronephrosis. Wander Hodges MD Lumbar Puncture Fluoroscopy 10/27/16 0000 Signed Impressions: Service Date/Time: Thursday, October 27, 2016 12:19 - CONCLUSION: Uncomplicated fluoroscopically guided lumbar puncture with chemotherapy injection. Matt Lassiter MD PICC Line Insertion 10/24/16 0000 Signed Impressions: Service Date/Time: Monday, October 24, 2016 12:01 - CONCLUSION: 1. Uncomplicated central venous Power PICC line placement. 2. The PICC line can be used immediately. Serafin Saba MD Bone Biopsy CT 10/24/16 0000 Signed Impressions: Service Date/Time: Monday, October 24, 2016 16:09 - CONCLUSION: 1. Uncomplicated CT guided bone marrow aspirate. 2. Uncomplicated CT guided bone marrow biopsy. Balwinder Swenson MD Objective Remarks GENERAL: This is a well-nourished, well-developed patient, in no apparent distress. CARDIOVASCULAR: Regular rate and regular rhythm without murmurs, gallops, or rubs. RESPIRATORY: Clear to auscultation. Breath sounds equal bilaterally. No wheezes , rales, or rhonchi. GASTROINTESTINAL: Abdomen soft, non-tender, nondistended. Normal, active bowel sounds MUSCULOSKELETAL: Extremities without clubbing, cyanosis, or edema. NEURO: Alert & Oriented x4 to person, place, time, situation. Moves all ext x4 skin; generalized rash Procedures 10/24/16 PICC line placement 10/24/16 bone marrow biopsy 10/30/16 Vas-Cath placement skin biopsy Medications and IVs Current Medications Sodium Chloride (NS Flush) 2 ml UNSCH PRN IV FLUSH FLUSH AFTER USING IV ACCESS Last administered on 11/25/16t 04:46; Start 10/24/16 at 01:45 Sodium Chloride (NS Flush) 2 ml BID IV FLUSH Last administered on 11/28/16 21: 42; Start 10/24/16 at 09:00 Naloxone HCl (Narcan Inj) 0.4 mg UNSCH PRN IV SEE LABEL COMMENTS; Start at 01:45 Cefepime HCl 2000 mg/Sodium Chloride 100 ml @ 200 mls/hr Q8H IV Last administered on 10/30/16 12:34; Start 10/24/16 at 04:00; Stop 10/30/16 at 12:57 ; Status DC Doxycycline Hyclate (Vibratab) 100 mg Q12HR PO Last administered on 11/13/16 09:31; Start 10/24/16 at 09:00; Stop 11/13/16 at 13:29; Status DC Albuterol/ Ipratropium (Duoneb Neb) 1 ampule Q4HR NEB PRN NEB SOB/Wheezing; Start 10/24/16 at 03:45 Heparin Sodium (Porcine) (*HEPARIN CENTRAL FLUSH PERIprocedural ONLY) 500 units STK-MED ONCE IV FLUSH Last administered on 10/24/16 11:37; Start 10/24/16 at 11:37; Stop 10/24/16 at 11:38; Status DC Sodium Chloride (NS Flush) DAILY IVF Last administered on 11/25/16 09:01; Start 10/25/16 at 09:00 Heparin Sodium (Porcine) (Heparin Central Flush) DAILY IV FLUSH Last administered on 11/26/16 04:53; Start 10/25/16 at 09:00 Sodium Chloride (NS Flush) 2 ml UNSCH PRN IVF SEE PROTOCOL Last administered on 11/16/16 09:28; Start 10/24/16 at 13:15 Lactobacillus Acidophilus (Lactinex) 1 tab TID PO Last administered on 17:10; Start 10/24/16 at 18:00 Midazolam HCl (Versed Inj) 4 mg STK-MED ONCE .ROUTE Last administered on 15:36; Start 10/24/16 at 15:36; Stop 10/24/16 at 15:37; Status DC Fentanyl Citrate (fentaNYL INJ) 250 mcg STK-MED ONCE .ROUTE Last administered on 10/24/16 15:36; Start 10/24/16 at 15:36; Stop 10/24/16 at 15:37; Status DC Lidocaine HCl (Xylocaine 1% Inj) 20 ml STK-MED ONCE .ROUTE ; Start 10/24/16 at 15:36; Stop 10/24/16 at 15:37; Status DC Iohexol (Omnipaque 350 Inj) 100 ml STK-MED ONCE IV Last administered on 16:08; Start 10/24/16 at 16:08; Stop 10/24/16 at 16:09; Status DC Sodium Chloride 250 ml @ 15 mls/hr ONCE ONCE IV ; Start 10/25/16 at 12:00; Stop 10/26/16 at 04:39; Status DC Acetaminophen (Tylenol) 650 mg Q4H PRN PO SEE LABEL COMMENTS Last administered on 10/25/16 14:34; Start 10/25/16 at 12:00; Stop 10/25/16 at 16:01; Status DC Diphenhydramine HCl (Benadryl) 25 mg Q4H PRN PO SEE LABEL COMMENTS Last administered on 10/25/16 14:34; Start 10/25/16 at 12:00; Stop 10/25/16 at 16:01 ; Status DC Furosemide (Lasix Inj) 20 mg ONCE ONCE IV Last administered on 10/25/16 21:18 ; Start 10/25/16 at 12:00; Stop 10/25/16 at 12:20; Status DC Enalaprilat (Vasotec Inj) 1.25 mg Q8H PRN IV PUSH SBP> OR = 180, DBP> OR = 100 ; Start 10/25/16 at 15:45 Amlodipine Besylate (Norvasc) 5 mg DAILY PO Last administered on 10/30/16 08: 59; Start 10/25/16 at 15:45; Stop 10/30/16 at 11:04; Status DC Allopurinol (Zyloprim) 300 mg ONCE ONCE PO Last administered on 10/25/16 18: 33; Start 10/25/16 at 17:45; Stop 10/25/16 at 17:54; Status DC Acetaminophen (Tylenol) 650 mg Q4H PRN PO WHILE BLOOD INFUSING Last administered on 8/12/17at 18:33; Start 10/25/16 at 18:00; Stop 10/26/16 at 17:59 ; Status DC Diphenhydramine HCl (Benadryl) 25 mg Q4H PRN PO WHILE BLOOD INFUSING Last administered on 11/01/16 22:11; Start 10/25/16 at 18:00; Stop 11/03/16 at 07:54 ; Status DC Granisetron HCl (Kytril) 1 mg Q12HR PO Last administered on 10/29/16 20:54; Start 10/26/16 at 11:00; Stop 10/29/16 at 21:01; Status DC Dexamethasone Sodium Phosphate 40 mg/Sodium Chloride 60 ml @ 120 mls/hr DAILY IV Last administered on 10/29/16 14:49; Start 10/26/16 at 11:00; Stop at 09:29; Status DC Cyclophosphamide 741 mg/Sodium Chloride 250 ml @ 83.333 mls/ hr Q12H IV Last administered on 10/29/16 04:08; Start 10/26/16 at 12:00; Stop 10/29/16 at 02:59 ; Status DC [place] 1482 mg/ Sodium Chloride 514.82 ml @ 21.451 mls/hr Q24H IV Last administered on 10/28/16 13:36; Start 10/26/16 at 11:00; Stop 10/29/16 at 10:59 ; Status DC Vincristine Sulfate 2 mg/ Sodium Chloride 52 ml @ 312 mls/hr ONCE ONCE IV Last administered on 10/29/16 20:43; Start 10/29/16 at 12:00; Stop 10/29/16 at 12:09; Status DC Doxorubicin HCl 123.5 mg/Sodium Chloride 311.75 ml @ 155.875 mls/hr ONCE ONCE IV Last administered on 10/29/16 20:44; Start 10/29/16 at 12:45; Stop at 14:44; Status DC Methotrexate Sodium 12 mg/ Syringe / Bag 0.48 ml @ 0 mls/hr [employer] IT Last administered on 10/27/16 12:33; Start 10/27/16 at 09:00; Stop 10/29/16 at 13:58 ; Status DC Cytarabine 100 mg/ Syringe / Bag ml @ 0 mls/hr [employer] IT ; Start 11/01/16 at 09:00; Status Cancel Acetaminophen (Tylenol) 650 mg Q4H PRN PO SEE LABEL COMMENTS; Start 10/27/16 at 06:00; Stop 10/27/16 at 10:01; Status DC Diphenhydramine HCl (Benadryl) 25 mg Q4H PRN PO SEE LABEL COMMENTS; Start 10/27 at 06:00; Stop 10/27/16 at 10:01; Status DC Allopurinol (Zyloprim) 300 mg BID PO Last administered on 11/01/16 10:47; Start 10/27/16 at 09:00; Stop 11/01/16 at 11:32; Status DC Acetaminophen (Tylenol) 650 mg Q4H PRN PO SEE LABEL COMMENTS Last administered on 10/27/16 11:25; Start 10/27/16 at 11:30; Stop 10/27/16 at 15:31; Status DC Diphenhydramine HCl (Benadryl) 25 mg Q4H PRN PO SEE LABEL COMMENTS; Start 10/27 at 11:30; Stop 10/27/16 at 15:31; Status DC Sodium Acetate 100 meq/Dextrose 1,050 ml @ 84 mls/hr [id number] IV Last administered on 10/27/16 23:50; Start 10/27/16 at 23:30; Stop 10/29/16 at 07:13 ; Status DC Sodium Chloride 1,000 ml @ 100 mls/hr Q10H IV Last administered on 10/28/16 18:35; Start 10/28/16 at 17:00; Stop 10/28/16 at 23:59; Status DC Acetaminophen (Tylenol) 650 mg ONCE ONCE PO Last administered on 10/28/16 17: 43; Start 10/28/16 at 16:30; Stop 10/28/16 at 16:31; Status DC Diphenhydramine HCl (Benadryl) 50 mg ONCE ONCE PO Last administered on 17:43; Start 10/28/16 at 16:30; Stop 10/28/16 at 16:31; Status DC Rituximab 900 mg/ Sodium Chloride 590 ml @ 0 mls/hr ONCE ONCE IV Last administered on 10/28/16 18:21; Start 10/28/16 at 17:00; Stop 10/28/16 at 17:01 ; Status DC Prochlorperazine Maleate (Compazine) 10 mg NOW ONCE PO Last administered on 20:13; Start 10/28/16 at 21:00; Stop 10/28/16 at 21:01; Status DC Sodium Bicarbonate 100 meq/Dextrose 1,100 ml @ 83 mls/hr [id number] IV Last administered on 10/29/16 23:50; Start 10/29/16 at 09:00; Stop 10/30/16 at 08:23 ; Status DC Sodium Chloride 250 ml @ 15 mls/hr ONCE ONCE IV Last administered on 07:15; Start 10/29/16 at 07:15; Stop 10/29/16 at 23:54; Status DC Acetaminophen (Tylenol) 650 mg Q4H PRN PO SEE LABEL COMMENTS; Start 10/29/16 at 07:15; Stop 10/29/16 at 11:16; Status DC Diphenhydramine HCl (Benadryl) 25 mg Q4H PRN PO SEE LABEL COMMENTS; Start 10/29 at 07:15; Stop 10/29/16 at 11:16; Status DC Furosemide (Lasix Inj) 20 mg ONCE ONCE IV Last administered on 10/29/16 14:48 ; Start 10/29/16 at 07:15; Stop 10/29/16 at 07:25; Status DC Vancomycin HCl 1250 mg/Sodium Chloride 262.5 ml @ 262.5 mls/ hr Q12H IV Last administered on 10/29/16 08:44; Start 10/29/16 at 09:00; Stop 10/29/16 at 14:33 ; Status DC Acetaminophen (Tylenol) 650 mg Q4H PRN PO SEE LABEL COMMENTS Last administered on 10/29/16 12:02; Start 10/29/16 at 12:00; Stop 10/29/16 at 16:01; Status DC Pharmacy Profile Note 0 ml @ 0 mls/hr UNSCH OTHER ; Start 10/29/16 at 12:45; Stop 11/13/16 at 13:29; Status DC Vancomycin HCl 2000 mg/Sodium Chloride 520 ml @ 250 mls/hr ONCE ONCE IV Last administered on 10/29/16 23:50; Start 10/30/16 at 00:00; Stop 10/30/16 at 02:04 ; Status DC Vincristine Sulfate 2 mg/ Sodium Chloride 52 ml @ 312 mls/hr ONCE ONCE IV ; Start 10/29/16 at 20:30; Stop 10/29/16 at 20:39; Status DC Doxorubicin HCl 123.5 mg/Sodium Chloride 311.75 ml @ 155.875 mls/hr ONCE ONCE IV ; Start 10/29/16 at 21:00; Stop 10/29/16 at 22:59; Status DC Diltiazem HCl (Cardizem) 30 mg ONCE ONCE PO ; Start 10/30/16 at 06:30; Stop at 06:30; Status DC Diltiazem HCl (Cardizem) 30 mg ONCE ONCE PO Last administered on 10/30/16 06: 36; Start 10/30/16 at 06:30; Stop 10/30/16 at 06:31; Status DC Miscellaneous (Pill Splitter) 1 ea UNSCH PRN OTHER SEE LABEL COMMENTS Last administered on 10/30/16 06:36; Start 10/30/16 at 06:45 Sodium Chloride 1,000 ml @ 42 mls/hr [id number] IV Last administered on 04:36; Start 10/30/16 at 08:30; Stop 11/12/16 at 11:35; Status DC Bumetanide (Bumex Inj) 2 mg BID@09,18 IV PUSH Last administered on 11/11/16 09 :14; Start 10/30/16 at 09:00; Stop 11/11/16 at 10:18; Status DC Sevelamer Carbonate (Renvela) 1,600 mg TIDAC PO Last administered on 11/02/16 18:22; Start 10/30/16 at 12:00; Stop 11/03/16 at 11:19; Status DC Sodium Chloride 1,000 ml @ 0 mls/hr Q0M PRN IV For Prime & Rinse Back Last administered on 11/24/16 10:08; Start 10/30/16 at 08:47 Heparin Sodium (Porcine) (Heparin Inj) 8,000 units UNSCH PRN IVF WITH DIALYSIS Last administered on 11/19/16 15:27; Start 10/30/16 at 09:00 Sodium Chloride 1,000 ml @ 200 mls/hr Q5H PRN IV WITH DIALYSIS; Start 10/30/16 at 08:47 Sodium Chloride 1,000 ml @ 0 mls/hr Q0M PRN IV WITH DIALYSIS; Start 10/30/16 at 08:47 Mannitol (Mannitol Inj) 12.5 gm UNSCH PRN IV WITH DIALYSIS; Start 10/30/16 at 09:00 Albumin Human (Albumin 25% Inj) 25 gm UNSCH PRN IV WITH DIALYSIS; Start at 09:00 Sodium Chloride (NS Flush) 5 ml UNSCH PRN IV FLUSH WITH DIALYSIS Last administered on 11/26/16 04:52; Start 10/30/16 at 09:00 Heparin Sodium (Porcine) (Heparin Inj) UNSCH PRN .XX WITH DIALYSIS Last administered on 11/24/16 10:09; Start 10/30/16 at 09:00 Gentamicin Sulfate (Gentamicin (Dialysis) Inj) 20 mg UNSCH PRN IV WITH DIALYSIS Last administered on 11/24/16 10:09; Start 10/30/16 at 09:00 Ondansetron HCl (Zofran Inj) 4 mg UNSCH PRN IV WITH DIALYSIS Last administered on 11/03/16 23:59; Start 10/30/16 at 09:00 Acetaminophen (Tylenol) 650 mg UNSCH PRN PO for headach, pain, temp > 101F Last administered on 11/07/16 23:21; Start 10/30/16 at 09:00 Diphenhydramine HCl (Benadryl) 25 mg UNSCH PRN PO for hives/itching/ anaphylaxis Last administered on 11/29/16 04:45; Start 10/30/16 at 09:00 Nitroglycerin (Nitrostat Sl) 0.4 mg UNSCH PRN SL CHEST PAIN; Start 10/30/16 at 09:00 Clonidine (Catapres) 0.1 mg UNSCH PRN PO for BP > 180/100 X 2 readings; Start 10/30/16 at 09:00 Gelatin (Gelfoam 12 Mm/7 Mm Top) 1 foam UNSCH PRN TOP SEE LABEL COMMENTS; Start 10/30/16 at 09:00 Sodium Chloride 250 ml @ 15 mls/hr ONCE ONCE IV ; Start 10/30/16 at 09:15; Stop 10/31/16 at 01:54; Status DC Acetaminophen (Tylenol) 650 mg Q4H PRN PO SEE LABEL COMMENTS Last administered on 10/30/16 12:34; Start 10/30/16 at 11:00; Stop 10/30/16 at 15:01; Status DC Diphenhydramine HCl (Benadryl) 25 mg Q4H PRN PO SEE LABEL COMMENTS; Start 10/30 at 11:00; Stop 10/30/16 at 15:01; Status DC Pharmacy Profile Note 0 ml @ 0 mls/hr UNSCH OTHER ; Start 10/30/16 at 09:15; Status Cancel Diltiazem HCl (Cardizem) 30 mg Q6HR PO Last administered on 11/09/16 05:01; Start 10/30/16 at 12:00; Stop 11/09/16 at 12:26; Status DC Heparin Sodium (Porcine) (*HEPARIN INJ Periprocedural ONLY) 10,000 units STK- MED ONCE .ROUTE Last administered on 10/30/16 11:35; Start 10/30/16 at 11:17; Stop 10/30/16 at 11:18; Status DC Sodium Chloride (NS Flush) UNSCH PRN IVF SEE PROTOCOL; Start 10/30/16 at 11:45 ; Stop 11/18/16 at 19:42; Status DC Heparin Sodium (Porcine) (Heparin Inj) UNSCH PRN IV FLUSH SEE PROTOCOL; Start 10/30/16 at 11:45; Stop 11/18/16 at 19:42; Status DC Cefepime HCl 1000 mg/Sodium Chloride 100 ml @ 200 mls/hr Q24H IV ; Start at 12:00; Status UNV Cefepime HCl 1000 mg/Sodium Chloride 100 ml @ 200 mls/hr Q24H IV Last administered on 11/13/16 11:13; Start 10/31/16 at 12:00; Stop 11/13/16 at 13:29 ; Status DC Rasburicase 22.5 mg/Sodium Chloride 50 ml @ 100 mls/hr ONCE ONCE IV Last administered on 10/31/16 15:01; Start 10/31/16 at 12:00; Stop 10/31/16 at 12:29 ; Status DC Filgrastim (Neupogen Inj) 480 mcg DAILY@14 SQ Last administered on 11/13/16 15 :41; Start 10/31/16 at 14:00; Stop 11/14/16 at 12:53; Status DC Sodium Chloride 250 ml @ 15 mls/hr ONCE ONCE IV ; Start 11/01/16 at 08:00; Stop 11/02/16 at 00:39; Status DC Acetaminophen (Tylenol) 650 mg Q4H PRN PO SEE LABEL COMMENTS Last administered on 11/01/16 18:10; Start 11/01/16 at 08:00; Stop 11/01/16 at 12:01; Status DC Diphenhydramine HCl (Benadryl) 25 mg Q4H PRN PO SEE LABEL COMMENTS; Start 11/01 at 08:00; Stop 11/01/16 at 12:01; Status DC Furosemide (Lasix Inj) 20 mg ONCE ONCE IV Last administered on 11/02/16 01:45 ; Start 11/01/16 at 08:00; Stop 11/01/16 at 08:01; Status DC Mupirocin (Bactroban 2% Oint) 1 applic Q12HR TOPICAL Last administered on 09:00; Start 11/01/16 at 21:00 Allopurinol (Zyloprim) 200 mg DAILY PO Last administered on 11/25/16 08:59; Start 11/02/16 at 09:00; Stop 11/25/16 at 10:24; Status DC Pantoprazole Sodium (Protonix) 20 mg DAILY PO Last administered on 11/07/16 13 :14; Start 11/02/16 at 09:00; Stop 11/07/16 at 14:12; Status DC Pantoprazole Sodium (Protonix) 20 mg ONCE ONCE PO Last administered on 22:12; Start 11/01/16 at 19:45; Stop 11/01/16 at 19:46; Status DC Sodium Chloride 250 ml @ 15 mls/hr ONCE ONCE IV ; Start 11/02/16 at 08:00; Stop 11/03/16 at 00:39; Status DC Sodium Chloride 250 ml @ 15 mls/hr ONCE ONCE IV ; Start 11/03/16 at 07:45; Stop 11/04/16 at 00:24; Status DC Acetaminophen (Tylenol) 650 mg Q4H PRN PO SEE LABEL COMMENTS; Start 11/03/16 at 07:45; Stop 11/05/16 at 07:51; Status DC Diphenhydramine HCl (Benadryl) 25 mg Q4H PRN PO SEE LABEL COMMENTS; Start 11/03 at 07:45; Stop 11/05/16 at 07:51; Status DC Sevelamer Carbonate (Renvela) 2,400 mg TIDAC PO Last administered on 11/11/16 09:14; Start 11/03/16 at 12:15; Stop 11/12/16 at 11:35; Status DC Vancomycin HCl 1000 mg/Sodium Chloride 250 ml @ 250 mls/hr ONCE ONCE IV Last administered on 11/03/16 17:08; Start 11/03/16 at 16:00; Stop 11/03/16 at 16:59 ; Status DC Ondansetron HCl (Zofran Inj) 4 mg Q6H PRN IV PUSH nausea Last administered on 20:57; Start 11/04/16 at 08:45 Simethicone (Mylicon Chew) 80 mg PCHS CHEW Last administered on 11/25/16 08:59 ; Start 11/04/16 at 10:30; Stop 11/25/16 at 11:04; Status DC Sodium Chloride 250 ml @ 15 mls/hr ONCE ONCE IV ; Start 11/05/16 at 07:30; Stop 11/06/16 at 00:09; Status DC Acetaminophen (Tylenol) 650 mg Q4H PRN PO SEE LABEL COMMENTS Last administered on 11/05/16 17:02; Start 11/05/16 at 07:30; Stop 11/05/16 at 17:12; Status DC Diphenhydramine HCl (Benadryl) 25 mg Q4H PRN PO SEE LABEL COMMENTS Last administered on 11/05/16 17:02; Start 11/05/16 at 07:30; Stop 11/05/16 at 17:12 ; Status DC Vancomycin HCl 1000 mg/Sodium Chloride 250 ml @ 250 mls/hr ONCE ONCE IV Last administered on 11/06/16 12:28; Start 11/06/16 at 11:00; Stop 11/06/16 at 11:59 ; Status DC Sodium Chloride 250 ml @ 15 mls/hr ONCE ONCE IV ; Start 11/07/16 at 07:30; Stop 11/08/16 at 00:09; Status DC Acetaminophen (Tylenol) 650 mg Q4H PRN PO SEE LABEL COMMENTS Last administered on 11/07/16 16:51; Start 11/07/16 at 07:30; Stop 11/07/16 at 17:45; Status DC Diphenhydramine HCl (Benadryl) 25 mg Q4H PRN PO SEE LABEL COMMENTS Last administered on 11/07/16 16:52; Start 11/07/16 at 07:30; Stop 11/07/16 at 16:52 ; Status DC Vancomycin HCl 1000 mg/Sodium Chloride 250 ml @ 250 mls/hr ONCE ONCE IV Last administered on 11/07/16 16:15; Start 11/07/16 at 12:00; Stop 11/07/16 at 12:59 ; Status DC Pantoprazole Sodium (Protonix) 20 mg BID PO Last administered on 11/08/16 07: 59; Start 11/07/16 at 21:00; Stop 11/08/16 at 17:37; Status DC Promethazine HCl (Phenergan) 12.5 mg TIDAC PO Last administered on 11/08/16 07 :59; Start 11/07/16 at 17:00; Stop 11/08/16 at 11:57; Status DC Calcium Gluconate 1 gm/Dextrose 110 ml @ 110 mls/hr ONCE ONCE IV Last administered on 11/07/16 20:14; Start 11/07/16 at 18:00; Stop 11/07/16 at 18:59 ; Status DC Calcium/Vitamin D (Oscal-D 250-125) 500 mg Q12HR PO Last administered on 21:38; Start 11/07/16 at 21:00 Sucralfate (Carafate Liq) 1 gm ONCE ONCE PO Last administered on 11/08/16 12: 12; Start 11/08/16 at 11:30; Stop 11/08/16 at 11:31; Status DC Loperamide HCl (Imodium) 4 mg ONCE ONCE PO Last administered on 11/08/16 12: 23; Start 11/08/16 at 12:00; Stop 11/08/16 at 12:08; Status DC Oxycodone/ Acetaminophen (Percocet 5-325 Mg) 1 tab Q4H PRN PO PAIN 3-10 Last administered on 11/08/16 15:39; Start 11/08/16 at 13:30; Stop 11/08/16 at 16:43 ; Status DC Oxycodone/ Acetaminophen (Percocet 5-325 Mg) 1 tab Q3H PRN PO PAIN 1-5; Start 11/08/16 at 16:45 Hydromorphone HCl (Dilaudid Pf Inj) 1 mg Q3H PRN IV PAIN 6-10 Last administered on 11/09/16 06:36; Start 11/08/16 at 16:45 Sucralfate (Carafate Liq) 1 gm ACHS PO Last administered on 11/25/16 07:35; Start 11/08/16 at 21:00; Stop 11/25/16 at 11:04; Status DC Pantoprazole Sodium (Protonix Inj) 40 mg Q12H IV PUSH Last administered on 11/25 04:46; Start 11/08/16 at 17:45; Stop 11/25/16 at 11:04; Status DC Loperamide HCl (Imodium) 2 mg ONCE ONCE PO Last administered on 11/09/16 00: 25; Start 11/09/16 at 00:15; Stop 11/09/16 at 00:19; Status DC Diltiazem HCl (Cardizem Inj) 10 mg ONCE ONCE IV Last administered on 06:58; Start 11/09/16 at 06:45; Stop 11/09/16 at 06:50; Status DC Diltiazem HCl (Cardizem Inj) 15 mg NOW ONCE IV PUSH Last administered on 08:47; Start 11/09/16 at 08:45; Stop 11/09/16 at 08:46; Status DC Diltiazem HCl (Cardizem) 60 mg Q6H PO Last administered on 11/14/16 02:05; Start 11/09/16 at 14:00; Stop 11/14/16 at 04:00; Status DC Sodium Chloride 250 ml @ 15 mls/hr ONCE ONCE IV ; Start 11/10/16 at 05:30; Stop 11/10/16 at 22:09; Status DC Sodium Chloride 250 ml @ 15 mls/hr ONCE ONCE IV Last administered on 11:40; Start 11/10/16 at 07:30; Stop 11/11/16 at 00:09; Status DC Acetaminophen (Tylenol) 650 mg Q4H PRN PO SEE LABEL COMMENTS Last administered on 11/12/16 13:00; Start 11/10/16 at 07:30; Stop 11/12/16 at 14:07; Status DC Diphenhydramine HCl (Benadryl) 25 mg Q4H PRN PO SEE LABEL COMMENTS Last administered on 11/12/16 13:00; Start 11/10/16 at 07:30 Sodium Chloride 250 ml @ 15 mls/hr ONCE ONCE IV Last administered on 12:32; Start 11/10/16 at 08:30; Stop 11/11/16 at 01:09; Status DC Megestrol Acetate (Megace Liq) 400 mg DAILY PO Last administered on 11/22/16 09 :05; Start 11/11/16 at 09:00; Stop 11/25/16 at 11:04; Status DC Megestrol Acetate (Megace Liq) 400 mg ONCE ONCE PO Last administered on 10:56; Start 11/10/16 at 10:15; Stop 11/10/16 at 10:44; Status DC Cefepime HCl 1000 mg/Sodium Chloride 100 ml @ 200 mls/hr Q48H PRN IV WITH DIALYSIS Last administered on 11/14/16 12:16; Start 11/10/16 at 12:15; Stop 11/14 at 13:03; Status DC Nystatin (Mycostatin Liq) 5 ml QID SWISH-SWAL Last administered on 11/16/16 09 :15; Start 11/11/16 at 09:00; Stop 11/16/16 at 12:22; Status DC Bumetanide (Bumex Inj) 2 mg DAILY IV PUSH Last administered on 11/26/16 08:53 ; Start 11/12/16 at 09:00; Stop 11/26/16 at 11:27; Status DC Fluconazole (Diflucan) 100 mg DAILY PO Last administered on 11/18/16 08:04; Start 11/11/16 at 13:15; Stop 11/18/16 at 13:14; Status DC Acyclovir (Zovirax) 400 mg Q12HR PO Last administered on 11/18/16 08:04; Start 11/11/16 at 13:15; Stop 11/18/16 at 13:14; Status DC Sodium Chloride 250 ml @ 15 mls/hr ONCE ONCE IV ; Start 11/12/16 at 07:30; Stop 11/13/16 at 00:09; Status DC Acetaminophen (Tylenol) 650 mg Q4H PRN PO SEE LABEL COMMENTS; Start 11/12/16 at 07:30 Diphenhydramine HCl (Benadryl) 25 mg Q4H PRN PO SEE LABEL COMMENTS; Start 11/12 at 07:30 Vancomycin HCl 1000 mg/Sodium Chloride 250 ml @ 250 mls/hr ONCE ONCE IV Last administered on 11/12/16 16:46; Start 11/12/16 at 16:00; Stop 11/12/16 at 16:59 ; Status DC Potassium Phosphate (K-Phos) 500 mg ONCE ONCE PO Last administered on 15:30; Start 11/12/16 at 11:45; Stop 11/12/16 at 11:46; Status DC Potassium Phosphate (K-Phos) 500 mg ONCE ONCE PO Last administered on 11:14; Start 11/13/16 at 11:00; Stop 11/13/16 at 11:06; Status DC Metoprolol Tartrate (Lopressor) 50 mg ONCE ONCE PO Last administered on 17:11; Start 11/13/16 at 17:15; Stop 11/13/16 at 17:16; Status DC Metoprolol Tartrate (Lopressor Inj) 5 mg Q5M PRN IV PUSH Afib; Start 11/13/16 at 17:15; Stop 11/13/16 at 22:16; Status DC Metoprolol Tartrate (Lopressor) 25 mg Q12HR PO Last administered on 11/28/16 21:38; Start 11/14/16 at 09:00 Diltiazem HCl (Cardizem Cd) 240 mg DAILY PO Last administered on 11/28/16 07: 59; Start 11/14/16 at 09:00 Potassium Phos/ Sodium Phos (K-Phos Neutral) 250 mg BID PO Last administered on 11/16/16 09:14; Start 11/14/16 at 21:00; Stop 11/16/16 at 09:00; Status DC Vancomycin HCl 1250 mg/Sodium Chloride 262.5 ml @ 262.5 mls/ hr ONCE ONCE IV Last administered on 11/15/16 13:16; Start 11/15/16 at 11:00; Stop 11/15/16 at 11: 59; Status DC Loperamide HCl (Imodium) 2 mg Q4H PRN PO diarrhea Last administered on 23:37; Start 11/15/16 at 23:30 Hydrocortisone (Nutracort 1% Oint) 1 applic BID TOPICAL Last administered on 22:30; Start 11/17/16 at 13:30; Stop 11/27/16 at 13:29; Status DC Vancomycin HCl 1000 mg/Sodium Chloride 250 ml @ 250 mls/hr EDIT[employer] GREETING CARD IV Last administered on 11/18/16 16:12; Start 11/18/16 at 10:45; Stop 11/22/16 at 10:44; Status DC Cefazolin Sodium/ Dextrose 50 ml @ 100 mls/hr EDIT[employer] GREETING CARD IV ; Start 11/18/16 at 10 :45; Stop 11/22/16 at 10:44; Status DC Fentanyl Citrate (fentaNYL INJ) 100 mcg STK-MED ONCE .ROUTE Last administered on 11/18/16 16:44; Start 11/18/16 at 16:44; Stop 11/18/16 at 16:45; Status DC Midazolam HCl (Versed Inj) 2 mg STK-MED ONCE .ROUTE Last administered on 16:45; Start 11/18/16 at 16:45; Stop 11/18/16 at 16:46; Status DC Heparin Sodium (Porcine) (*HEPARIN INJ Periprocedural ONLY) 10,000 units STK- MED ONCE .ROUTE Last administered on 11/18/16 17:07; Start 11/18/16 at 17:07; Stop 11/18/16 at 17:08; Status DC Lidocaine/ Epinephrine (Xylocaine-Epi 2%-1:100,000 Inj) 20 ml STK-MED ONCE .ROUTE Last administered on 11/18/16 17:07; Start 11/18/16 at 17:07; Stop at 17:08; Status DC Midazolam HCl (Versed Inj) 2 mg STK-MED ONCE .ROUTE Last administered on 17:27; Start 11/18/16 at 17:27; Stop 11/18/16 at 17:28; Status DC Sodium Chloride (NS Flush) UNSCH PRN IVF SEE PROTOCOL Last administered on 04:53; Start 11/18/16 at 18:00 Heparin Sodium (Porcine) (Heparin Inj) UNSCH PRN IV FLUSH SEE PROTOCOL; Start 11/18/16 at 18:00 Methylprednisolone Sodium Succinate (SoluMEDROL INJ) 125 mg ONCE ONCE IV PUSH Last administered on 11/25/16 10:27; Start 11/25/16 at 09:30; Stop 11/25/16 at 09:31; Status DC Pantoprazole Sodium (Protonix) 20 mg DAILY PO Last administered on 11/28/16 07 :59; Start 11/26/16 at 09:00 Prednisone (Deltasone) 40 mg DAILY PO Last administered on 11/28/16 07:59; Start 11/26/16 at 09:00 Lidocaine/ Epinephrine (Xylocaine-Epi 1%-1:100,000 Inj) 30 ml ONCE ONCE INFIL ; Start 11/26/16 at 10:30; Stop 11/26/16 at 12:45; Status DC Lidocaine/ Epinephrine (Xylocaine-Epi 2%-1:100,000 Inj) 30 ml ONCE ONCE INFIL ; Start 11/26/16 at 12:45; Stop 11/26/16 at 12:46; Status UNV Sevelamer Carbonate (Renvela) 800 mg TIDAC PO Last administered on 11/28/16 17 :10; Start 11/27/16 at 12:00 Date of Insertion: Oct 24, 2016 Line: PICC Side: Right A/P Assessment and Plan ALL: Oncology signed off. Continue chemotherapy - Patient will continue outpatient chemotherapy. Follow up with oncology - Hematology/Oncology states patient is ready for discharge from hematologic standpoint. Requires readmission in the upcoming 2 weeks for cycle #2/arm B Hyper- CVAD - continue on po Acyclovir and Diflucan prophylaxis Increased WB to 18,000 mostly due to steroids, skin rash still exist, awaiting skin punch biopsy result. Pneumonia: Off antibiotics per infectious disease. DuoNeb as needed. Stable on room air. - ID signed off. Clinically stable on infectious disease standpoint. Hypertension: Continue amlodipine. Vasotec IV as needed. Blood pressure control improved. Tumor lysis syndrome: S/P Rasburicase. Appreciate oncology, nephrology management. Atrial fibrillation with RVR: Appreciate cardiology recommendations.2-D echocardiogram shows ejection fraction 55-60%. Continue oral Cardizem, metoprolol. Acute renal failure: Dialysis per nephrology (--). Adequate UO. . Avoid nephrotoxins. - s/p permacath placement - As per her loan review manager, unknown if patient is end-stage renal but will set him up for hemodialysis as an outpatient. - Case management is working on setting him up for [facility] -Per Dr. Galicia, plan to keep the patient to determine whether he would need continued HD or not. Poor oral intake: Likely secondary to chemotherapy. Continue Megace. Complaints of decreased appetite. Encouraged. Rash: Has rash on upper back and chest that started 2 days ago. Rash is papular and there is evidence of excoriation. Patient denies chest pain, dyspnea, wheeze. Lungs are clear on exam. - Only new medication is metoprolol, started 11/14/16. Monitor rash. - Was on multiple antibiotics previously broad spectrum coverage which may have caused the reaction. ID did not recommend antibiotic - Benadryl available PRN, Hydrocortisone cream -Collagen suggesting drug induced, most of the nonessential medication have been stopped -Status post skin punch biopsy, awaiting pathology -Started on prednisone by oncology Diarrhea: Was given one time dose of Imodium. Cdiff checked on 11/06/16 which was negative. - No complaints Generalized weakness - Patient has been evaluated by physical therapy and has been working on him. Recommends rolling walker, bedside commode and shower chair for use at home. - Continue with physical therapy until discharge. DVT prophylaxis: Jurgen, KRISTEN sauer. Tabitha Jimenez MD Nov 29, 2016 08:04
[2016-11-29] MEDS: LACTOBACILLUS ACIDOPHILUS TAB PO SCH ×3 (08:26→16:55)
[2016-11-29] MEDS: SEVELAMER CARBONATE 800 MG TAB PO SCH ×3 (08:26→16:55)
[2016-11-29] MEDS: METOPROLOL TARTRATE 25 MG TAB PO SCH ×2 (08:26→21:15)
[2016-11-29] MEDS: PANTOPRAZOLE SOD 20 MG DELAYED RELEASE TAB PO SCH (08:26)
[2016-11-29] MEDS: DILTIAZEM-CD 240 MG CAP ER PO SCH (08:26)
[2016-11-29] MEDS: predniSONE 20 MG TAB PO SCH (08:26)
[2016-11-29] MEDS: CALCIUM/VITAMIN D 250 MG/125 U TAB PO SCH ×2 (08:26→21:15)
[2016-11-29] MEDS: SODIUM CHLORIDE 0.9% FLUSH 10 ML FLUSH IVF SCH (08:27)
[2016-11-29] MEDS: SODIUM CHLORIDE 0.9% FLUSH 10 ML FLUSH IV FLUSH SCH ×2 (08:27→21:16)
[2016-11-29] MEDS: MUPIROCIN 2% OINT 22 GM TUBE TOPICAL SCH ×2 (08:27→21:16)
--- NOTE | 2016-11-29 09:26 | HHI.NPPN ---
Subjective General Problems: Anemia, Edema, Hypertension Renal Failure: Acute Interval History Non oliguric, good urine output. Renal function is improving. No need for dialysis. Review of Systems General Constitutional: Fatigue Gastrointestinal GI Remarks loss of appetite Skin Skin: Skin Rash Objective Data Data Vital Signs Date Time Temp Pulse Resp B/P (MAP) Pulse Ox O2 Delivery O2 Flow Rate FiO2 11/29/16 04:00 98.5 68 18 116/46 (69) 99 11/29/16 00:00 97.5 70 18 111/60 (77) 99 11/28/16 21:00 70 11/28/16 20:00 97.9 72 19 113/52 (72) 100 11/28/16 17:00 65 16 121/66 (84) 93 11/28/16 12:00 96.0 66 18 139/70 (93) 98 -: 11/27/16 0458 11/29/16 0448 Tubes & Lines: Perma-Cath Physical Exam General Appearance: Well Developed, Well Nourished, No Acute Distress, Comfortable Eyes Eye Exam: Pupils Equal, Pupils Reactive Throat Throat Exam: Oral Mucosa Bonnie & Moist Neck Neck Exam: Neck Supple Pulmonary Resp Exam: Clear Bilaterally, Breath Sounds Equal, No Distress Cardiology CV Exam: Regular, Normal Sinus Rhythm, Good Perfusion Gastrointestinal/Abdomen GI Exam: Soft, Non-Tender, Bowel Sounds Present, Positive Bowel Movement Musculoskeletal MS Exam: Joints Intact, Normal Gait, Normal Tone Integumentary Skin Exam: Clear, Warm, Dry, Intact Skin Remarks rash Extremeties Extremities Exam: Pedal Pulses Palpable, Trace Edema Neurologic Neuro Exam: Alert, Awake, Oriented, Speech Clear, Moving All Extremities Psychiatric Psych Exam: Appropriate Responses Assessment/Plan Discussed Condition With: Patient Assessment Summary: FAIZA/Acute Renal Failure, Hypertension Electrolyte Assessment: Hypocalcemia Problem List: (1) Acute kidney injury ICD Codes: N17.9 - Acute kidney failure, unspecified Status: Acute Plan: 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 Renal function improving without dialysis Non oliguric PermCath can be removed. Patient can be discharged if PermCath can be removed. Higher BUN is due to Prednisone: I will reduce the dose. 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 To follow outpatient, oncology has cleared for discharge (3) Hypocalcemia ICD Codes: E83.51 - Hypocalcemia Status: Acute Plan: improved, monitor (4) Pancytopenia ICD Codes: D61.818 - Other pancytopenia Status: Acute Plan: Resolved. Monitor (5) Rash and nonspecific skin eruption ICD Codes: R21 - Rash and other nonspecific skin eruption Plan: Unclear the etiology. Appears to be drug induced, but chart reviewed and he was not given anything new during that time. On Benadryl and steroids Dermatology has performed a punch biopsy yesterday, await results. Problem Qualifiers (1) Acute lymphocytic leukemia: Qualified Codes: C91.00 - Acute lymphoblastic leukemia not having achieved remission Clay Galicia MD Nov 29, 2016 09:26
--- NOTE | 2016-11-29 09:49 | PD.ONC.PN ---
Subjective Subjective Remarks Afebrile overnight. patient resting in bed in nad. Rash on torso and extremities is persistent, no change. no overnight events. Objective Data Date Time Temp Pulse Resp B/P (MAP) Pulse Ox O2 Delivery O2 Flow Rate FiO2 11/29/16 07:50 67 11/29/16 04:00 98.5 68 18 116/46 (69) 99 11/29/16 00:00 97.5 70 18 111/60 (77) 99 11/28/16 21:00 70 11/28/16 20:00 97.9 72 19 113/52 (72) 100 11/28/16 17:00 65 16 121/66 (84) 93 11/28/16 12:00 96.0 66 18 139/70 (93) 98 11/29/16 11/29/16 11/29/16 07:00 15:00 23:00 Intake Total 582 ml Output Total 600 ml Balance -18 ml Result Diagram: 11/27/16 0458 11/29/16 0448 Laboratory Results Laboratory Tests Test 11/29/16 04:48 Blood Urea Nitrogen 90 MG/DL Creatinine 3.89 MG/DL Random Glucose 233 MG/DL Albumin 2.8 GM/DL Calcium Level 7.9 MG/DL Phosphorus Level 4.1 MG/DL Sodium Level 137 MEQ/L Potassium Level 4.2 MEQ/L Chloride Level 102 MEQ/L Carbon Dioxide Level 23.0 MEQ/L Anion Gap 12 MEQ/L Estimat Glomerular Filtration Rate 15 ML/MIN Administered Medications Medications (Trade) Dose Ordered Sig/Daniel Route PRN Reason Start Time Stop Time Status Last Admin Dose Admin Sodium Chloride (NS Flush) 2 ml UNSCH PRN IV FLUSH FLUSH AFTER USING IV ACCESS 10/24/16 01:45 11/25/16 04:46 Sodium Chloride (NS Flush) 2 ml BID IV FLUSH 10/24/16 09:00 11/28/16 21:42 Sodium Chloride (NS Flush) DAILY IVF 10/25/16 09:00 11/25/16 09:01 Heparin Sodium (Porcine) (Heparin Central Flush) DAILY IV FLUSH 10/25/16 09:00 11/26/16 04:53 Sodium Chloride (NS Flush) 2 ml UNSCH PRN IVF SEE PROTOCOL 10/24/16 13:15 11/16/16 09:28 Lactobacillus Acidophilus (Lactinex) 1 tab TID PO 10/24/16 18:00 11/29/16 08:26 Miscellaneous (Pill Splitter) 1 ea UNSCH PRN OTHER SEE LABEL COMMENTS 10/30/16 06:45 10/30/16 06:36 Sodium Chloride 1,000 ml @ 0 mls/hr Q0M PRN IV For Prime & Rinse Back 10/30/16 08:47 11/24/16 10:08 Heparin Sodium (Porcine) (Heparin Inj) 8,000 units UNSCH PRN IVF WITH DIALYSIS 10/30/16 09:00 11/19/16 15:27 Sodium Chloride (NS Flush) 5 ml UNSCH PRN IV FLUSH WITH DIALYSIS 10/30/16 09:00 11/26/16 04:52 Heparin Sodium (Porcine) (Heparin Inj) UNSCH PRN .XX WITH DIALYSIS 10/30/16 09:00 11/24/16 10:09 Gentamicin Sulfate (Gentamicin (Dialysis) Inj) 20 mg UNSCH PRN IV WITH DIALYSIS 10/30/16 09:00 11/24/16 10:09 Ondansetron HCl (Zofran Inj) 4 mg UNSCH PRN IV WITH DIALYSIS 10/30/16 09:00 11/03/16 23:59 Acetaminophen (Tylenol) 650 mg UNSCH PRN PO for headach, pain, temp > 101F 10/30/16 09:00 11/07/16 23:21 Diphenhydramine HCl (Benadryl) 25 mg UNSCH PRN PO for hives/itching/anaphylaxis 10/30/16 09:00 11/29/16 04:45 Mupirocin (Bactroban 2% Oint) 1 applic Q12HR TOPICAL 11/01/16 21:00 11/20/16 09:00 Ondansetron HCl (Zofran Inj) 4 mg Q6H PRN IV PUSH nausea 11/04/16 08:45 11/11/16 20:57 Calcium/Vitamin D (Oscal-D 250-125) 500 mg Q12HR PO 11/07/16 21:00 11/29/16 08:26 Hydromorphone HCl (Dilaudid Pf Inj) 1 mg Q3H PRN IV PAIN 6-10 11/08/16 16:45 11/09/16 06:36 Diphenhydramine HCl (Benadryl) 25 mg Q4H PRN PO SEE LABEL COMMENTS 11/10/16 07:30 11/12/16 13:00 Metoprolol Tartrate (Lopressor) 25 mg Q12HR PO 11/14/16 09:00 11/29/16 08:26 Diltiazem HCl (Cardizem Cd) 240 mg DAILY PO 11/14/16 09:00 11/29/16 08:26 Loperamide HCl (Imodium) 2 mg Q4H PRN PO diarrhea 11/15/16 23:30 11/15/16 23:37 Sodium Chloride (NS Flush) UNSCH PRN IVF SEE PROTOCOL 11/18/16 18:00 11/26/16 04:53 Pantoprazole Sodium (Protonix) 20 mg DAILY PO 11/26/16 09:00 11/29/16 08:26 Sevelamer Carbonate (Renvela) 800 mg TIDAC PO 11/27/16 12:00 11/29/16 08:26 Objective Remarks GENERAL: Pleasant elderly male upright in bed in [facility]. SKIN: Warm and dry. macular rounded confluent rash on trunk and extremities. no lesions on palms or soles. HEAD: Normocephalic. EYES: No scleral icterus. No injection or drainage. MOUTH: no oral lesions NECK: Supple, trachea midline. CARDIOVASCULAR: Regular rate and rhythm RESPIRATORY: Breath sounds equal bilaterally. No accessory muscle use. GASTROINTESTINAL: Abdomen soft, non-tender, nondistended. EXTREMITIES: No cyanosis, or edema. MUSCULOSKELETAL: Adequate muscle tone. NEUROLOGICAL: No obvious focal deficit. Awake, alert, and oriented x3. 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 S/p cycle 1 Hyper-CVAD + Rituxan and IT cytarabine. Plan 1. B-cell ALL ([place] chromosome negative): Status post cycle #1 (Arm A ) hyper-CVAD with Rituxan and intrathecal chemotherapy. His counts have recovered. I would like to discharge him home before treating him with cycle # 2 (Arm B) Hyper-CVAD with Rituxan and intrathecal cytarabine. 2. ARF due to TLS; HD on hold. renal function continuing to improve. 3. Rash: s/p biopsy, await pathologic findings. He does not need to remain in the hospital while we await the final results. Continue oral prednisone 30 MG by mouth daily which seems to be helping the itching. Disposition: Discharge home or to rehabilitation once outpatient hemodialysis has been arranged or patient cleared by nephrology for discharge. Attending Statement The exam, history, and the medical decision-making described in the above note were completed with the assistance of the mid-level provider. I reviewed and agree with the findings presented. I attest that I had a [id number] encounter with the patient on the same day, and personally performed and documented my assessment and findings in the medical record. Rash improved with steroid, biopsy path pending. No need for further dialysis per nephrology. Can be d/c once able to remove the permacath. Ava Akhtar Nov 29, 2016 09:49 Gaurav Castaneda MD Nov 29, 2016 12:08
[2016-11-29 13:48] LABS: AUTOMATED NEUTROPHIL # 10.8 TH/MM3 (1.8-7.7); BASOPHIL # 0.1 TH/MM3 (0-0.2); BASOPHIL % 0.4 % (0.0-2.0); EOSINOPHIL # 0.5 TH/MM3 (0-0.4); EOSINOPHIL % 3.8 % (0.0-4.0); HEMATOCRIT 27.1 % (39.0-51.0); LYMPH % 6.7 % (9.0-44.0); LYMPHOCYTE # 0.9 TH/MM3 (1.0-4.8); MEAN CELL VOLUME 91.7 FL (80.0-100.0); MEAN CORPUSCULAR HEMOGLOBIN 30.7 PG (27.0-34.0); MEAN CORPUSCULAR HGB CONC 33.5 % (32.0-36.0); MONO % 12.7 % (0.0-8.0); NEUT % 76.4 % (16.0-70.0); PLATELET COUNT 211 TH/MM3 (150-450); RED BLOOD COUNT 2.95 MIL/MM3 (4.50-5.90); RED CELL DISTRIBUTION WIDTH 16.5 % (11.6-17.2); WHITE BLOOD COUNT 14.1 TH/MM3 (4.0-11.0)
[2016-11-29 13:58] LABS: HEMO FLAGS AUTO DIFF
[2016-11-29 14:27] LABS: BANDS 2 % (0-6); EOSINOPHILS 2 % (0-4); METAMYELOCYTES 1 % (0-1); MYELOCYTES 1 % (0-0); NEUTROPHIL # MANUAL DIFF 12.7 TH/MM3 (1.8-7.7); POLYS (SEG NEUTROPHILS) 86 % (16-70); WBC DIFF SAMPLE 100
[2016-11-29 14:31] LABS: SCAN/DIFF FINAL DIFF MANUAL
[2016-11-30] VITALS (13 sets, daily range): BP systolic 125–163; BP diastolic 54–69; PULSE 63–95; RESP 14–19; TEMP 96–98; O2SAT 94–100
[2016-11-30] MEDS: diphenhydrAMINE HCL 25 MG CAP PO PRN (05:50)
[2016-11-30 06:45] LABS: BICARBONATE 22.6 MEQ/L (21.0-32.0); POTASSIUM 4.7 MEQ/L (3.5-5.1)
--- NOTE | 2016-11-30 07:58 | HHI.PR ---
Subjective Remarks in no acute distress. denies pain. no fever. has some itching. no new complaints. d/w the RN and no acute issues over night. Objective Vitals Vital Signs Date Time Temp Pulse Resp B/P (MAP) Pulse Ox O2 Delivery O2 Flow Rate FiO2 11/30/16 04:08 63 11/30/16 04:00 97.9 67 19 137/61 (86) 98 11/30/16 00:17 63 11/30/16 00:00 97.6 93 19 125/54 (77) 99 11/29/16 20:10 72 11/29/16 20:00 96.1 72 18 147/57 (87) 99 11/29/16 16:00 97.9 61 20 135/60 (85) 97 11/29/16 12:00 98.0 64 18 138/63 (88) 98 11/29/16 08:00 98.0 70 14 162/72 (102) 100 I/O 11/29/16 11/29/16 11/29/16 11/30/16 11/30/16 11/30/16 07:00 15:00 23:00 07:00 15:00 23:00 Intake Total 582 ml 576 ml 480 ml 240 ml Output Total 600 ml 400 ml 300 ml 600 ml Balance -18 ml 176 ml 180 ml -360 ml Intake Oral 240 ml 576 ml 480 ml 240 ml IV Total 342 ml Output Urine Total 600 ml 400 ml 300 ml 600 ml # Bowel Movements 2 Result Diagram: 11/29/16 1255 11/30/16 0545 Imaging Last Impressions Catheter Placement X-Ray 11/18/16 0000 Signed Impressions: Service Date/Time: Friday, November 18, 2016 16:47 - CONCLUSION: Uncomplicated PermaCath placement as above. Balwinder Oliver MD Gall Bladder Ultrasound 11/09/16 0000 Signed Impressions: Service Date/Time: Wednesday, November 09, 2016 12:22 - CONCLUSION: 1. Increased echogenicity throughout the liver suggestive of fatty infiltration. The liver is enlarged at 18.5 cm. 2. There are gallstones in the gallbladder. No biliary tract obstruction. Prasad Cade MD Abdomen/Pelvis CT 11/08/16 0000 Signed Impressions: Service Date/Time: Tuesday, November 08, 2016 15:00 - CONCLUSION: #1. Small right-sided pleural effusion. #2. Hazy increased density identified adjacent to the head of the pancreas as compared to the body and tail which may represent early changes of acute pancreatitis. Recommend correlation with patient's laboratory values. #3. Small anterior hernia with preperitoneal fat. This is seen approximately 2 cm superior to the umbilicus. Darcie Evans MD Chest X-Ray 11/01/16 0000 Signed Impressions: Service Date/Time: Tuesday, November 01, 2016 14:05 - CONCLUSION: Bibasilar densities likely atelectasis. Neal Castro MD Renal Ultrasound 10/30/16 0000 Signed Impressions: Service Date/Time: October 08:13 - CONCLUSION: Unremarkable exam with no evidence of hydronephrosis. Wander Hodges MD Lumbar Puncture Fluoroscopy 10/27/16 0000 Signed Impressions: Service Date/Time: Thursday, October 27, 2016 12:19 - CONCLUSION: Uncomplicated fluoroscopically guided lumbar puncture with chemotherapy injection. Matt Lassiter MD PICC Line Insertion 10/24/16 0000 Signed Impressions: Service Date/Time: Monday, October 24, 2016 12:01 - CONCLUSION: 1. Uncomplicated central venous Power PICC line placement. 2. The PICC line can be used immediately. Serafin Saba MD Bone Biopsy CT 10/24/16 0000 Signed Impressions: Service Date/Time: Monday, October 24, 2016 16:09 - CONCLUSION: 1. Uncomplicated CT guided bone marrow aspirate. 2. Uncomplicated CT guided bone marrow biopsy. Balwinder Swenson MD Objective Remarks GENERAL: This is a well-nourished, well-developed patient, in no apparent distress. CARDIOVASCULAR: Regular rate and regular rhythm without murmurs, gallops, or rubs. RESPIRATORY: Clear to auscultation. Breath sounds equal bilaterally. No wheezes , rales, or rhonchi. GASTROINTESTINAL: Abdomen soft, non-tender, nondistended. Normal, active bowel sounds MUSCULOSKELETAL: Extremities without clubbing, cyanosis, or edema. NEURO: Alert & Oriented x4 to person, place, time, situation. Moves all ext x4 skin; generalized rash Procedures 10/24/16 PICC line placement 10/24/16 bone marrow biopsy 10/30/16 Vas-Cath placement skin biopsy perma-cath placement Medications and IVs Current Medications Sodium Chloride (NS Flush) 2 ml UNSCH PRN IV FLUSH FLUSH AFTER USING IV ACCESS Last administered on 11/25/16 04:46; Start 10/24/16 at 01:45 Sodium Chloride (NS Flush) 2 ml BID IV FLUSH Last administered on 11/29/16 21: 16; Start 10/24/16 at 09:00 Naloxone HCl (Narcan Inj) 0.4 mg UNSCH PRN IV SEE LABEL COMMENTS; Start at 01:45 Cefepime HCl 2000 mg/Sodium Chloride 100 ml @ 200 mls/hr Q8H IV Last administered on 10/30/16 12:34; Start 10/24/16 at 04:00; Stop 10/30/16 at 12:57 ; Status DC Doxycycline Hyclate (Vibratab) 100 mg Q12HR PO Last administered on 11/13/16 09:31; Start 10/24/16 at 09:00; Stop 11/13/16 at 13:29; Status DC Albuterol/ Ipratropium (Duoneb Neb) 1 ampule Q4HR NEB PRN NEB SOB/Wheezing; Start 10/24/16 at 03:45 Heparin Sodium (Porcine) (*HEPARIN CENTRAL FLUSH PERIprocedural ONLY) 500 units STK-MED ONCE IV FLUSH Last administered on 10/24/16 11:37; Start 10/24/16 at 11:37; Stop 10/24/16 at 11:38; Status DC Sodium Chloride (NS Flush) DAILY IVF Last administered on 11/25/16 09:01; Start 10/25/16 at 09:00 Heparin Sodium (Porcine) (Heparin Central Flush) DAILY IV FLUSH Last administered on 11/26/16 04:53; Start 10/25/16 at 09:00 Sodium Chloride (NS Flush) 2 ml UNSCH PRN IVF SEE PROTOCOL Last administered on 11/16/16 09:28; Start 10/24/16 at 13:15 Lactobacillus Acidophilus (Lactinex) 1 tab TID PO Last administered on 16:55; Start 10/24/16 at 18:00 Midazolam HCl (Versed Inj) 4 mg STK-MED ONCE .ROUTE Last administered on 15:36; Start 10/24/16 at 15:36; Stop 10/24/16 at 15:37; Status DC Fentanyl Citrate (fentaNYL INJ) 250 mcg STK-MED ONCE .ROUTE Last administered on 10/24/16 15:36; Start 10/24/16 at 15:36; Stop 10/24/16 at 15:37; Status DC Lidocaine HCl (Xylocaine 1% Inj) 20 ml STK-MED ONCE .ROUTE ; Start 10/24/16 at 15:36; Stop 10/24/16 at 15:37; Status DC Iohexol (Omnipaque 350 Inj) 100 ml STK-MED ONCE IV Last administered on 16:08; Start 10/24/16 at 16:08; Stop 10/24/16 at 16:09; Status DC Sodium Chloride 250 ml @ 15 mls/hr ONCE ONCE IV ; Start 10/25/16 at 12:00; Stop 10/26/16 at 04:39; Status DC Acetaminophen (Tylenol) 650 mg Q4H PRN PO SEE LABEL COMMENTS Last administered on 10/25/16 14:34; Start 10/25/16 at 12:00; Stop 10/25/16 at 16:01; Status DC Diphenhydramine HCl (Benadryl) 25 mg Q4H PRN PO SEE LABEL COMMENTS Last administered on 10/25/16 14:34; Start 10/25/16 at 12:00; Stop 10/25/16 at 16:01 ; Status DC Furosemide (Lasix Inj) 20 mg ONCE ONCE IV Last administered on 10/25/16 21:18 ; Start 10/25/16 at 12:00; Stop 10/25/16 at 12:20; Status DC Enalaprilat (Vasotec Inj) 1.25 mg Q8H PRN IV PUSH SBP> OR = 180, DBP> OR = 100 ; Start 10/25/16 at 15:45 Amlodipine Besylate (Norvasc) 5 mg DAILY PO Last administered on 10/30/16 08: 59; Start 10/25/16 at 15:45; Stop 10/30/16 at 11:04; Status DC Allopurinol (Zyloprim) 300 mg ONCE ONCE PO Last administered on 10/25/16 18: 33; Start 10/25/16 at 17:45; Stop 10/25/16 at 17:54; Status DC Acetaminophen (Tylenol) 650 mg Q4H PRN PO WHILE BLOOD INFUSING Last administered on 10/25/16 18:33; Start 10/25/16 at 18:00; Stop 10/26/16 at 17:59 ; Status DC Diphenhydramine HCl (Benadryl) 25 mg Q4H PRN PO WHILE BLOOD INFUSING Last administered on 11/01/16 22:11; Start 10/25/16 at 18:00; Stop 11/03/16 at 07:54 ; Status DC Granisetron HCl (Kytril) 1 mg Q12HR PO Last administered on 10/29/16 20:54; Start 10/26/16 at 11:00; Stop 10/29/16 at 21:01; Status DC Dexamethasone Sodium Phosphate 40 mg/Sodium Chloride 60 ml @ 120 mls/hr DAILY IV Last administered on 10/29/16 14:49; Start 10/26/16 at 11:00; Stop at 09:29; Status DC Cyclophosphamide 741 mg/Sodium Chloride 250 ml @ 83.333 mls/ hr Q12H IV Last administered on 10/29/16 04:08; Start 10/26/16 at 12:00; Stop 10/29/16 at 02:59 ; Status DC [place] 1482 mg/ Sodium Chloride 514.82 ml @ 21.451 mls/hr Q24H IV Last administered on 10/28/16 13:36; Start 10/26/16 at 11:00; Stop 10/29/16 at 10:59 ; Status DC Vincristine Sulfate 2 mg/ Sodium Chloride 52 ml @ 312 mls/hr ONCE ONCE IV Last administered on 10/29/16 20:43; Start 10/29/16 at 12:00; Stop 10/29/16 at 12:09; Status DC Doxorubicin HCl 123.5 mg/Sodium Chloride 311.75 ml @ 155.875 mls/hr ONCE ONCE IV Last administered on 10/29/16 20:44; Start 10/29/16 at 12:45; Stop at 14:44; Status DC Methotrexate Sodium 12 mg/ Syringe / Bag 0.48 ml @ 0 mls/hr 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 IT Last administered on 10/27/16 12:33; Start 10/27/16 at 09:00; Stop 10/29/16 at 13:58 ; Status DC Cytarabine 100 mg/ Syringe / Bag ml @ 0 mls/hr [employer] 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 IT ; Start 11/01/16 at 09:00; Status Cancel Acetaminophen (Tylenol) 650 mg Q4H PRN PO SEE LABEL COMMENTS; Start 10/27/16 at 06:00; Stop 10/27/16 at 10:01; Status DC Diphenhydramine HCl (Benadryl) 25 mg Q4H PRN PO SEE LABEL COMMENTS; Start 10/27 at 06:00; Stop 10/27/16 at 10:01; Status DC Allopurinol (Zyloprim) 300 mg BID PO Last administered on 11/01/16 10:47; Start 10/27/16 at 09:00; Stop 11/01/16 at 11:32; Status DC Acetaminophen (Tylenol) 650 mg Q4H PRN PO SEE LABEL COMMENTS Last administered on 10/27/16 11:25; Start 10/27/16 at 11:30; Stop 10/27/16 at 15:31; Status DC Diphenhydramine HCl (Benadryl) 25 mg Q4H PRN PO SEE LABEL COMMENTS; Start 10/27 at 11:30; Stop 10/27/16 at 15:31; Status DC Sodium Acetate 100 meq/Dextrose 1,050 ml @ 84 mls/hr [id number] IV Last administered on 10/27/16 23:50; Start 10/27/16 at 23:30; Stop 10/29/16 at 07:13 ; Status DC Sodium Chloride 1,000 ml @ 100 mls/hr Q10H IV Last administered on 10/28/16 18:35; Start 10/28/16 at 17:00; Stop 10/28/16 at 23:59; Status DC Acetaminophen (Tylenol) 650 mg ONCE ONCE PO Last administered on 10/28/16 17: 43; Start 10/28/16 at 16:30; Stop 10/28/16 at 16:31; Status DC Diphenhydramine HCl (Benadryl) 50 mg ONCE ONCE PO Last administered on 17:43; Start 10/28/16 at 16:30; Stop 10/28/16 at 16:31; Status DC Rituximab 900 mg/ Sodium Chloride 590 ml @ 0 mls/hr ONCE ONCE IV Last administered on 10/28/16 18:21; Start 10/28/16 at 17:00; Stop 10/28/16 at 17:01 ; Status DC Prochlorperazine Maleate (Compazine) 10 mg NOW ONCE PO Last administered on 20:13; Start 10/28/16 at 21:00; Stop 10/28/16 at 21:01; Status DC Sodium Bicarbonate 100 meq/Dextrose 1,100 ml @ 83 mls/hr [id number] IV Last administered on 10/29/16 23:50; Start 10/29/16 at 09:00; Stop 10/30/16 at 08:23 ; Status DC Sodium Chloride 250 ml @ 15 mls/hr ONCE ONCE IV Last administered on 07:15; Start 10/29/16 at 07:15; Stop 10/29/16 at 23:54; Status DC Acetaminophen (Tylenol) 650 mg Q4H PRN PO SEE LABEL COMMENTS; Start 10/29/16 at 07:15; Stop 10/29/16 at 11:16; Status DC Diphenhydramine HCl (Benadryl) 25 mg Q4H PRN PO SEE LABEL COMMENTS; Start 10/29 at 07:15; Stop 10/29/16 at 11:16; Status DC Furosemide (Lasix Inj) 20 mg ONCE ONCE IV Last administered on 10/29/16 14:48 ; Start 10/29/16 at 07:15; Stop 10/29/16 at 07:25; Status DC Vancomycin HCl 1250 mg/Sodium Chloride 262.5 ml @ 262.5 mls/ hr Q12H IV Last administered on 10/29/16 08:44; Start 10/29/16 at 09:00; Stop 10/29/16 at 14:33 ; Status DC Acetaminophen (Tylenol) 650 mg Q4H PRN PO SEE LABEL COMMENTS Last administered on 10/29/16 12:02; Start 10/29/16 at 12:00; Stop 10/29/16 at 16:01; Status DC Pharmacy Profile Note 0 ml @ 0 mls/hr UNSCH OTHER ; Start 10/29/16 at 12:45; Stop 11/13/16 at 13:29; Status DC Vancomycin HCl 2000 mg/Sodium Chloride 520 ml @ 250 mls/hr ONCE ONCE IV Last administered on 10/29/16 23:50; Start 10/30/16 at 00:00; Stop 10/30/16 at 02:04 ; Status DC Vincristine Sulfate 2 mg/ Sodium Chloride 52 ml @ 312 mls/hr ONCE ONCE IV ; Start 10/29/16 at 20:30; Stop 10/29/16 at 20:39; Status DC Doxorubicin HCl 123.5 mg/Sodium Chloride 311.75 ml @ 155.875 mls/hr ONCE ONCE IV ; Start 10/29/16 at 21:00; Stop 10/29/16 at 22:59; Status DC Diltiazem HCl (Cardizem) 30 mg ONCE ONCE PO ; Start 10/30/16 at 06:30; Stop at 06:30; Status DC Diltiazem HCl (Cardizem) 30 mg ONCE ONCE PO Last administered on 10/30/16 06: 36; Start 10/30/16 at 06:30; Stop 10/30/16 at 06:31; Status DC Miscellaneous (Pill Splitter) 1 ea UNSCH PRN OTHER SEE LABEL COMMENTS Last administered on 10/30/16 06:36; Start 10/30/16 at 06:45 Sodium Chloride 1,000 ml @ 42 mls/hr [id number] IV Last administered on 04:36; Start 10/30/16 at 08:30; Stop 11/12/16 at 11:35; Status DC Bumetanide (Bumex Inj) 2 mg BID@09,18 IV PUSH Last administered on 11/11/16 09 :14; Start 10/30/16 at 09:00; Stop 11/11/16 at 10:18; Status DC Sevelamer Carbonate (Renvela) 1,600 mg TIDAC PO Last administered on 11/02/16 18:22; Start 10/30/16 at 12:00; Stop 11/03/16 at 11:19; Status DC Sodium Chloride 1,000 ml @ 0 mls/hr Q0M PRN IV For Prime & Rinse Back Last administered on 11/24/16 10:08; Start 10/30/16 at 08:47 Heparin Sodium (Porcine) (Heparin Inj) 8,000 units UNSCH PRN IVF WITH DIALYSIS Last administered on 11/19/16 15:27; Start 10/30/16 at 09:00 Sodium Chloride 1,000 ml @ 200 mls/hr Q5H PRN IV WITH DIALYSIS; Start 10/30/16 at 08:47 Sodium Chloride 1,000 ml @ 0 mls/hr Q0M PRN IV WITH DIALYSIS; Start 10/30/16 at 08:47 Mannitol (Mannitol Inj) 12.5 gm UNSCH PRN IV WITH DIALYSIS; Start 10/30/16 at 09:00 Albumin Human (Albumin 25% Inj) 25 gm UNSCH PRN IV WITH DIALYSIS; Start at 09:00 Sodium Chloride (NS Flush) 5 ml UNSCH PRN IV FLUSH WITH DIALYSIS Last administered on 11/26/16 04:52; Start 10/30/16 at 09:00 Heparin Sodium (Porcine) (Heparin Inj) UNSCH PRN .XX WITH DIALYSIS Last administered on 11/24/16 10:09; Start 10/30/16 at 09:00 Gentamicin Sulfate (Gentamicin (Dialysis) Inj) 20 mg UNSCH PRN IV WITH DIALYSIS Last administered on 11/24/16 10:09; Start 10/30/16 at 09:00 Ondansetron HCl (Zofran Inj) 4 mg UNSCH PRN IV WITH DIALYSIS Last administered on 11/03/16 23:59; Start 10/30/16 at 09:00 Acetaminophen (Tylenol) 650 mg UNSCH PRN PO for headach, pain, temp > 101F Last administered on 11/07/16 23:21; Start 10/30/16 at 09:00 Diphenhydramine HCl (Benadryl) 25 mg UNSCH PRN PO for hives/itching/ anaphylaxis Last administered on 11/30/16 05:50; Start 10/30/16 at 09:00 Nitroglycerin (Nitrostat Sl) 0.4 mg UNSCH PRN SL CHEST PAIN; Start 10/30/16 at 09:00 Clonidine (Catapres) 0.1 mg UNSCH PRN PO for BP > 180/100 X 2 readings; Start 10/30/16 at 09:00 Gelatin (Gelfoam 12 Mm/7 Mm Top) 1 foam UNSCH PRN TOP SEE LABEL COMMENTS; Start 10/30/16 at 09:00 Sodium Chloride 250 ml @ 15 mls/hr ONCE ONCE IV ; Start 10/30/16 at 09:15; Stop 10/31/16 at 01:54; Status DC Acetaminophen (Tylenol) 650 mg Q4H PRN PO SEE LABEL COMMENTS Last administered on 10/30/16 12:34; Start 10/30/16 at 11:00; Stop 10/30/16 at 15:01; Status DC Diphenhydramine HCl (Benadryl) 25 mg Q4H PRN PO SEE LABEL COMMENTS; Start 10/30 at 11:00; Stop 10/30/16 at 15:01; Status DC Pharmacy Profile Note 0 ml @ 0 mls/hr UNSCH OTHER ; Start 10/30/16 at 09:15; Status Cancel Diltiazem HCl (Cardizem) 30 mg Q6HR PO Last administered on 11/09/16 05:01; Start 10/30/16 at 12:00; Stop 11/09/16 at 12:26; Status DC Heparin Sodium (Porcine) (*HEPARIN INJ Periprocedural ONLY) 10,000 units STK- MED ONCE .ROUTE Last administered on 10/30/16 11:35; Start 10/30/16 at 11:17; Stop 10/30/16 at 11:18; Status DC Sodium Chloride (NS Flush) UNSCH PRN IVF SEE PROTOCOL; Start 10/30/16 at 11:45 ; Stop 11/18/16 at 19:42; Status DC Heparin Sodium (Porcine) (Heparin Inj) UNSCH PRN IV FLUSH SEE PROTOCOL; Start 10/30/16 at 11:45; Stop 11/18/16 at 19:42; Status DC Cefepime HCl 1000 mg/Sodium Chloride 100 ml @ 200 mls/hr Q24H IV ; Start at 12:00; Status UNV Cefepime HCl 1000 mg/Sodium Chloride 100 ml @ 200 mls/hr Q24H IV Last administered on 11/13/16 11:13; Start 10/31/16 at 12:00; Stop 11/13/16 at 13:29 ; Status DC Rasburicase 22.5 mg/Sodium Chloride 50 ml @ 100 mls/hr ONCE ONCE IV Last administered on 10/31/16 15:01; Start 10/31/16 at 12:00; Stop 10/31/16 at 12:29 ; Status DC Filgrastim (Neupogen Inj) 480 mcg DAILY@14 SQ Last administered on 11/13/16 15 :41; Start 10/31/16 at 14:00; Stop 11/14/16 at 12:53; Status DC Sodium Chloride 250 ml @ 15 mls/hr ONCE ONCE IV ; Start 11/01/16 at 08:00; Stop 11/02/16 at 00:39; Status DC Acetaminophen (Tylenol) 650 mg Q4H PRN PO SEE LABEL COMMENTS Last administered on 11/01/16 18:10; Start 11/01/16 at 08:00; Stop 11/01/16 at 12:01; Status DC Diphenhydramine HCl (Benadryl) 25 mg Q4H PRN PO SEE LABEL COMMENTS; Start 11/01 at 08:00; Stop 11/01/16 at 12:01; Status DC Furosemide (Lasix Inj) 20 mg ONCE ONCE IV Last administered on 11/02/16 01:45 ; Start 11/01/16 at 08:00; Stop 11/01/16 at 08:01; Status DC Mupirocin (Bactroban 2% Oint) 1 applic Q12HR TOPICAL Last administered on 09:00; Start 11/01/16 at 21:00 Allopurinol (Zyloprim) 200 mg DAILY PO Last administered on 11/25/16 08:59; Start 11/02/16 at 09:00; Stop 11/25/16 at 10:24; Status DC Pantoprazole Sodium (Protonix) 20 mg DAILY PO Last administered on 11/07/16 13 :14; Start 11/02/16 at 09:00; Stop 11/07/16 at 14:12; Status DC Pantoprazole Sodium (Protonix) 20 mg ONCE ONCE PO Last administered on 22:12; Start 11/01/16 at 19:45; Stop 11/01/16 at 19:46; Status DC Sodium Chloride 250 ml @ 15 mls/hr ONCE ONCE IV ; Start 11/02/16 at 08:00; Stop 11/03/16 at 00:39; Status DC Sodium Chloride 250 ml @ 15 mls/hr ONCE ONCE IV ; Start 11/03/16 at 07:45; Stop 11/04/16 at 00:24; Status DC Acetaminophen (Tylenol) 650 mg Q4H PRN PO SEE LABEL COMMENTS; Start 11/03/16 at 07:45; Stop 11/05/16 at 07:51; Status DC Diphenhydramine HCl (Benadryl) 25 mg Q4H PRN PO SEE LABEL COMMENTS; Start 11/03 at 07:45; Stop 11/05/16 at 07:51; Status DC Sevelamer Carbonate (Renvela) 2,400 mg TIDAC PO Last administered on 11/11/16 09:14; Start 11/03/16 at 12:15; Stop 11/12/16 at 11:35; Status DC Vancomycin HCl 1000 mg/Sodium Chloride 250 ml @ 250 mls/hr ONCE ONCE IV Last administered on 11/03/16 17:08; Start 11/03/16 at 16:00; Stop 11/03/16 at 16:59 ; Status DC Ondansetron HCl (Zofran Inj) 4 mg Q6H PRN IV PUSH nausea Last administered on 20:57; Start 11/04/16 at 08:45 Simethicone (Mylicon Chew) 80 mg PCHS CHEW Last administered on 11/25/16 08:59 ; Start 11/04/16 at 10:30; Stop 11/25/16 at 11:04; Status DC Sodium Chloride 250 ml @ 15 mls/hr ONCE ONCE IV ; Start 11/05/16 at 07:30; Stop 11/06/16 at 00:09; Status DC Acetaminophen (Tylenol) 650 mg Q4H PRN PO SEE LABEL COMMENTS Last administered on 11/05/16 17:02; Start 11/05/16 at 07:30; Stop 11/05/16 at 17:12; Status DC Diphenhydramine HCl (Benadryl) 25 mg Q4H PRN PO SEE LABEL COMMENTS Last administered on 11/05/16 17:02; Start 11/05/16 at 07:30; Stop 11/05/16 at 17:12 ; Status DC Vancomycin HCl 1000 mg/Sodium Chloride 250 ml @ 250 mls/hr ONCE ONCE IV Last administered on 11/06/16 12:28; Start 11/06/16 at 11:00; Stop 11/06/16 at 11:59 ; Status DC Sodium Chloride 250 ml @ 15 mls/hr ONCE ONCE IV ; Start 11/07/16 at 07:30; Stop 11/08/16 at 00:09; Status DC Acetaminophen (Tylenol) 650 mg Q4H PRN PO SEE LABEL COMMENTS Last administered on 11/07/16 16:51; Start 11/07/16 at 07:30; Stop 11/07/16 at 17:45; Status DC Diphenhydramine HCl (Benadryl) 25 mg Q4H PRN PO SEE LABEL COMMENTS Last administered on 11/07/16 16:52; Start 11/07/16 at 07:30; Stop 11/07/16 at 16:52 ; Status DC Vancomycin HCl 1000 mg/Sodium Chloride 250 ml @ 250 mls/hr ONCE ONCE IV Last administered on 11/07/16 16:15; Start 11/07/16 at 12:00; Stop 11/07/16 at 12:59 ; Status DC Pantoprazole Sodium (Protonix) 20 mg BID PO Last administered on 11/08/16 07: 59; Start 11/07/16 at 21:00; Stop 11/08/16 at 17:37; Status DC Promethazine HCl (Phenergan) 12.5 mg TIDAC PO Last administered on 11/08/16 07 :59; Start 11/07/16 at 17:00; Stop 11/08/16 at 11:57; Status DC Calcium Gluconate 1 gm/Dextrose 110 ml @ 110 mls/hr ONCE ONCE IV Last administered on 11/07/16 20:14; Start 11/07/16 at 18:00; Stop 11/07/16 at 18:59 ; Status DC Calcium/Vitamin D (Oscal-D 250-125) 500 mg Q12HR PO Last administered on 21:15; Start 11/07/16 at 21:00 Sucralfate (Carafate Liq) 1 gm ONCE ONCE PO Last administered on 11/08/16 12: 12; Start 11/08/16 at 11:30; Stop 11/08/16 at 11:31; Status DC Loperamide HCl (Imodium) 4 mg ONCE ONCE PO Last administered on 11/08/16 12: 23; Start 11/08/16 at 12:00; Stop 11/08/16 at 12:08; Status DC Oxycodone/ Acetaminophen (Percocet 5-325 Mg) 1 tab Q4H PRN PO PAIN 3-10 Last administered on 11/08/16 15:39; Start 11/08/16 at 13:30; Stop 11/08/16 at 16:43 ; Status DC Oxycodone/ Acetaminophen (Percocet 5-325 Mg) 1 tab Q3H PRN PO PAIN 1-5; Start 11/08/16 at 16:45 Hydromorphone HCl (Dilaudid Pf Inj) 1 mg Q3H PRN IV PAIN 6-10 Last administered on 11/09/16 06:36; Start 11/08/16 at 16:45 Sucralfate (Carafate Liq) 1 gm ACHS PO Last administered on 11/25/16 07:35; Start 11/08/16 at 21:00; Stop 11/25/16 at 11:04; Status DC Pantoprazole Sodium (Protonix Inj) 40 mg Q12H IV PUSH Last administered on 11/25 04:46; Start 11/08/16 at 17:45; Stop 11/25/16 at 11:04; Status DC Loperamide HCl (Imodium) 2 mg ONCE ONCE PO Last administered on 11/09/16 00: 25; Start 11/09/16 at 00:15; Stop 11/09/16 at 00:19; Status DC Diltiazem HCl (Cardizem Inj) 10 mg ONCE ONCE IV Last administered on 06:58; Start 11/09/16 at 06:45; Stop 11/09/16 at 06:50; Status DC Diltiazem HCl (Cardizem Inj) 15 mg NOW ONCE IV PUSH Last administered on 08:47; Start 11/09/16 at 08:45; Stop 11/09/16 at 08:46; Status DC Diltiazem HCl (Cardizem) 60 mg Q6H PO Last administered on 11/14/16 02:05; Start 11/09/16 at 14:00; Stop 11/14/16 at 04:00; Status DC Sodium Chloride 250 ml @ 15 mls/hr ONCE ONCE IV ; Start 11/10/16 at 05:30; Stop 11/10/16 at 22:09; Status DC Sodium Chloride 250 ml @ 15 mls/hr ONCE ONCE IV Last administered on 11:40; Start 11/10/16 at 07:30; Stop 11/11/16 at 00:09; Status DC Acetaminophen (Tylenol) 650 mg Q4H PRN PO SEE LABEL COMMENTS Last administered on 11/12/16 13:00; Start 11/10/16 at 07:30; Stop 11/12/16 at 14:07; Status DC Diphenhydramine HCl (Benadryl) 25 mg Q4H PRN PO SEE LABEL COMMENTS Last administered on 11/12/16 13:00; Start 11/10/16 at 07:30 Sodium Chloride 250 ml @ 15 mls/hr ONCE ONCE IV Last administered on 12:32; Start 11/10/16 at 08:30; Stop 11/11/16 at 01:09; Status DC Megestrol Acetate (Megace Liq) 400 mg DAILY PO Last administered on 11/22/16 09 :05; Start 11/11/16 at 09:00; Stop 11/25/16 at 11:04; Status DC Megestrol Acetate (Megace Liq) 400 mg ONCE ONCE PO Last administered on 10:56; Start 11/10/16 at 10:15; Stop 11/10/16 at 10:44; Status DC Cefepime HCl 1000 mg/Sodium Chloride 100 ml @ 200 mls/hr Q48H PRN IV WITH DIALYSIS Last administered on 11/14/16 12:16; Start 11/10/16 at 12:15; Stop 11/14 at 13:03; Status DC Nystatin (Mycostatin Liq) 5 ml QID SWISH-SWAL Last administered on 11/16/16 09 :15; Start 11/11/16 at 09:00; Stop 11/16/16 at 12:22; Status DC Bumetanide (Bumex Inj) 2 mg DAILY IV PUSH Last administered on 11/26/16 08:53 ; Start 11/12/16 at 09:00; Stop 11/26/16 at 11:27; Status DC Fluconazole (Diflucan) 100 mg DAILY PO Last administered on 11/18/16 08:04; Start 11/11/16 at 13:15; Stop 11/18/16 at 13:14; Status DC Acyclovir (Zovirax) 400 mg Q12HR PO Last administered on 11/18/16 08:04; Start 11/11/16 at 13:15; Stop 11/18/16 at 13:14; Status DC Sodium Chloride 250 ml @ 15 mls/hr ONCE ONCE IV ; Start 11/12/16 at 07:30; Stop 11/13/16 at 00:09; Status DC Acetaminophen (Tylenol) 650 mg Q4H PRN PO SEE LABEL COMMENTS; Start 11/12/16 at 07:30 Diphenhydramine HCl (Benadryl) 25 mg Q4H PRN PO SEE LABEL COMMENTS; Start 11/12 at 07:30 Vancomycin HCl 1000 mg/Sodium Chloride 250 ml @ 250 mls/hr ONCE ONCE IV Last administered on 11/12/16 16:46; Start 11/12/16 at 16:00; Stop 11/12/16 at 16:59 ; Status DC Potassium Phosphate (K-Phos) 500 mg ONCE ONCE PO Last administered on 15:30; Start 11/12/16 at 11:45; Stop 11/12/16 at 11:46; Status DC Potassium Phosphate (K-Phos) 500 mg ONCE ONCE PO Last administered on 11:14; Start 11/13/16 at 11:00; Stop 11/13/16 at 11:06; Status DC Metoprolol Tartrate (Lopressor) 50 mg ONCE ONCE PO Last administered on 17:11; Start 11/13/16 at 17:15; Stop 11/13/16 at 17:16; Status DC Metoprolol Tartrate (Lopressor Inj) 5 mg Q5M PRN IV PUSH Afib; Start 11/13/16 at 17:15; Stop 11/13/16 at 22:16; Status DC Metoprolol Tartrate (Lopressor) 25 mg Q12HR PO Last administered on 11/29/16 21:15; Start 11/14/16 at 09:00 Diltiazem HCl (Cardizem Cd) 240 mg DAILY PO Last administered on 11/29/16 08: 26; Start 11/14/16 at 09:00 Potassium Phos/ Sodium Phos (K-Phos Neutral) 250 mg BID PO Last administered on 11/16/16 09:14; Start 11/14/16 at 21:00; Stop 11/16/16 at 09:00; Status DC Vancomycin HCl 1250 mg/Sodium Chloride 262.5 ml @ 262.5 mls/ hr ONCE ONCE IV Last administered on 11/15/16 13:16; Start 11/15/16 at 11:00; Stop 11/15/16 at 11: 59; Status DC Loperamide HCl (Imodium) 2 mg Q4H PRN PO diarrhea Last administered on 23:37; Start 11/15/16 at 23:30 Hydrocortisone (Nutracort 1% Oint) 1 applic BID TOPICAL Last administered on 22:30; Start 11/17/16 at 13:30; Stop 11/27/16 at 13:29; Status DC Vancomycin HCl 1000 mg/Sodium Chloride 250 ml @ 250 mls/hr 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 IV Last administered on 11/18/16 16:12; Start 11/18/16 at 10:45; Stop 11/22/16 at 10:44; Status DC Cefazolin Sodium/ Dextrose 50 ml @ 100 mls/hr [employer] 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 IV ; Start 11/18/16 at 10 :45; Stop 11/22/16 at 10:44; Status DC Fentanyl Citrate (fentaNYL INJ) 100 mcg STK-MED ONCE .ROUTE Last administered on 11/18/16 16:44; Start 11/18/16 at 16:44; Stop 11/18/16 at 16:45; Status DC Midazolam HCl (Versed Inj) 2 mg STK-MED ONCE .ROUTE Last administered on 16:45; Start 11/18/16 at 16:45; Stop 11/18/16 at 16:46; Status DC Heparin Sodium (Porcine) (*HEPARIN INJ Periprocedural ONLY) 10,000 units STK- MED ONCE .ROUTE Last administered on 11/18/16 17:07; Start 11/18/16 at 17:07; Stop 11/18/16 at 17:08; Status DC Lidocaine/ Epinephrine (Xylocaine-Epi 2%-1:100,000 Inj) 20 ml STK-MED ONCE .ROUTE Last administered on 11/18/16 17:07; Start 11/18/16 at 17:07; Stop at 17:08; Status DC Midazolam HCl (Versed Inj) 2 mg STK-MED ONCE .ROUTE Last administered on 17:27; Start 11/18/16 at 17:27; Stop 11/18/16 at 17:28; Status DC Sodium Chloride (NS Flush) UNSCH PRN IVF SEE PROTOCOL Last administered on 04:53; Start 11/18/16 at 18:00 Heparin Sodium (Porcine) (Heparin Inj) UNSCH PRN IV FLUSH SEE PROTOCOL; Start 11/18/16 at 18:00 Methylprednisolone Sodium Succinate (SoluMEDROL INJ) 125 mg ONCE ONCE IV PUSH Last administered on 11/25/16 10:27; Start 11/25/16 at 09:30; Stop 11/25/16 at 09:31; Status DC Pantoprazole Sodium (Protonix) 20 mg DAILY PO Last administered on 11/29/16 08 :26; Start 11/26/16 at 09:00 Prednisone (Deltasone) 40 mg DAILY PO Last administered on 11/29/16 08:26; Start 11/26/16 at 09:00; Stop 11/29/16 at 09:25; Status DC Lidocaine/ Epinephrine (Xylocaine-Epi 1%-1:100,000 Inj) 30 ml ONCE ONCE INFIL ; Start 11/26/16 at 10:30; Stop 11/26/16 at 12:45; Status DC Lidocaine/ Epinephrine (Xylocaine-Epi 2%-1:100,000 Inj) 30 ml ONCE ONCE INFIL ; Start 11/26/16 at 12:45; Stop 11/26/16 at 12:46; Status UNV Sevelamer Carbonate (Renvela) 800 mg TIDAC PO Last administered on 11/29/16 16 :55; Start 11/27/16 at 12:00 Prednisone (Deltasone) 30 mg DAILY PO ; Start 11/30/16 at 09:00 Date of Insertion: Oct 24, 2016 Line: PICC Side: Right A/P Assessment and Plan 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 - Patient will continue outpatient chemotherapy. Follow up with oncology - Hematology/Oncology states patient is ready for discharge from hematologic standpoint. Requires readmission in the upcoming 2 weeks for cycle #2/arm B Hyper- CVAD leukocytosis mostly due to steroids, skin rash still exist, awaiting skin punch biopsy result. Pneumonia: Off antibiotics per infectious disease. DuoNeb as needed. Stable on room air. - ID signed off. Clinically stable on infectious disease standpoint. Hypertension: Continue amlodipine. Vasotec IV as needed. Blood pressure control improved. Tumor lysis syndrome: S/P Rasburicase. Appreciate oncology, nephrology management. Atrial fibrillation with RVR: Appreciate cardiology recommendations.2-D echocardiogram shows ejection fraction 55-60%. Continue oral Cardizem, metoprolol. Acute renal failure: Dialysis per nephrology (--). Adequate UO. . Avoid nephrotoxins. renal function improving. -no need for further dialysis - permacath will be removed -nephrology has signed off- f/u as outpatient. Poor oral intake: Likely secondary to chemotherapy. Continue Megace. Complaints of decreased appetite. Encouraged. Rash: Has rash on upper back and chest that started 2 days ago. Rash is papular and there is evidence of excoriation. Patient denies chest pain, dyspnea, wheeze. Lungs are clear on exam. - Only new medication is metoprolol, started 11/14/16. Monitor rash. - Was on multiple antibiotics previously broad spectrum coverage which may have caused the reaction. ID did not recommend antibiotic - Benadryl available PRN, Hydrocortisone cream -Collagen suggesting drug induced, most of the nonessential medication have been stopped -Status post skin punch biopsy, awaiting pathology -Started on prednisone by oncology Diarrhea: Was given one time dose of Imodium. Cdiff checked on 11/06/16 which was negative. - No complaints Generalized weakness - evaluated by PT. DVT prophylaxis: SCDs, KRISTEN sauer. Discharge Planning dc home after perma-cath has been removed. f/u; pcp,oncology,nephrology and surgery. see med list. d/w the patient and RN. time spent 35 min. Tabitha Jimenez MD Nov 30, 2016 07:58
[2016-11-30] MEDS ORDERED: PRED5TAB PO (08:04)
[2016-11-30] MEDS ORDERED: CARD240C6 PO (08:04)
--- NOTE | 2016-11-30 08:04 | HHI.DCPOC ---
Discharge Care Plan Diagnosis: (1) Acute lymphocytic leukemia Goals to Promote Your Health * To prevent worsening of your condition and complications * To maintain your health at the optimal level Directions to Meet Your Goals Take your medications as prescribed Follow your dietary instruction Follow activity as directed Keep your appointments as scheduled Take your immunizations and boosters as scheduled If your symptoms worsen call your PCP, if no PCP go to Urgent Care Center or Emergency Room Smoking is Dangerous to Your Health. Avoid second hand smoke Call the 24-hour hour crisis hotline for domestic abuse at Tabitha Jimenez MD Nov 30, 2016 08:04
--- NOTE | 2016-11-30 08:05 | HHI.DS ---
Discharge Summary Admission Date Oct 24, 2016 at 01:14 Discharge Date: Nov 30, 2016 Admitting Diagnosis Pancytopenia, right lobe pneumonia . 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 Diagnosis: Principal Status: Acute (4) Hypertension ICD Code: I10 - Essential (primary) hypertension Diagnosis: Secondary Status: Chronic (5) Acute renal failure ICD Code: N17.9 - Acute kidney failure, unspecified Diagnosis: Principal (6) Tumor lysis syndrome ICD Code: E88.3 - Tumor lysis syndrome Diagnosis: Principal (7) Atrial fibrillation ICD Code: I48.91 - Unspecified atrial fibrillation Diagnosis: Secondary Status: Acute Procedures 10/24/16 PICC line placement 10/24/16 bone marrow biopsy 10/30/16 Vas-Cath placement skin biopsy perma-cath placement Brief History - From Admission Written by Tierney Rae, acting as scribe for Dr. Lew on 10/24/16 at 02:43. The patient states that he had sciatic pain for about 3 weeks and not moving around much On Thursday10/20/16, he was walking to the mailbox, felt short of breath, called PCP Went to PCP, EKG was done and PCP sent him to [facility] Went to hospital and he was found to have thrombocytopenia, emphysema, and right lobe pneumonia (tx with Cefepime and Doxycycline) He was seen by Dr. Rice at [facility] Bone biopsy was planned on morning The patient was not happy with the care at [facility] His stoneworker, Dr. Rice, transferred him here Acute Lymphoblastic Leukemia suspected The patient did not have a stress test nor an angiogram at [facility] - they are planning to do work up as an outpatient Pulmonology also wants to do follow up as an outpatient The patient has bruised easily since age 21 Denies weakness, fevers, diaphoresis, lymphadenopathy, bleeding gums, or easy bleeding, hematuria, bloody or black stools. Denies chest pain, nausea/vomiting , or diarrhea. . CBC/BMP: 11/29/16 1255 11/30/16 0545 Significant Findings Laboratory Tests Test 11/27/16 18:40 11/28/16 06:06 11/29/16 04:48 11/29/16 12:55 Phosphorus Level 5.2 MG/DL (2.5-4.9) Blood Urea Nitrogen 88 MG/DL (7-18) 90 MG/DL (7-18) Creatinine 4.80 MG/DL (0.60-1.30) 3.89 MG/DL (0.60-1.30) Random Glucose 145 MG/DL (74-106) 233 MG/DL (74-106) Albumin 2.8 GM/DL (3.4-5.0) 2.8 GM/DL (3.4-5.0) Calcium Level 8.0 MG/DL (8.5-10.1) 7.9 MG/DL (8.5-10.1) Estimat Glomerular Filtration Rate 12 ML/MIN (>89) 15 ML/MIN (>89) White Blood Count 14.1 TH/MM3 (4.0-11.0) Red Blood Count 2.95 MIL/MM3 (4.50-5.90) Hemoglobin 9.1 GM/DL (13.0-17.0) Hematocrit 27.1 % (39.0-51.0) Neutrophils (%) (Auto) 76.4 % (16.0-70.0) Lymphocytes (%) (Auto) 6.7 % (9.0-44.0) Monocytes (%) (Auto) 12.7 % (0.0-8.0) Neutrophils # (Auto) 10.8 TH/MM3 (1.8-7.7) Lymphocytes # (Auto) 0.9 TH/MM3 (1.0-4.8) Monocytes # (Auto) 1.8 TH/MM3 (0-0.9) Eosinophils # (Auto) 0.5 TH/MM3 (0-0.4) Neutrophils % (Manual) 86 % (16-70) Lymphocytes % 2 % (9-44) Neutrophils # (Manual) 12.7 TH/MM3 (1.8-7.7) Myelocytes 1 % (0-0) Test 11/30/16 05:45 Blood Urea Nitrogen 84 MG/DL (7-18) Creatinine 2.93 MG/DL (0.60-1.30) Albumin 3.0 GM/DL (3.4-5.0) Estimat Glomerular Filtration Rate 21 ML/MIN (>89) Imaging Last Impressions Catheter Placement X-Ray 11/18/16 0000 Signed Impressions: Service Date/Time: Friday, November 18, 2016 16:47 - CONCLUSION: Uncomplicated PermaCath placement as above. Balwinder Oliver MD Gall Bladder Ultrasound 11/09/16 0000 Signed Impressions: Service Date/Time: Wednesday, November 09, 2016 12:22 - CONCLUSION: 1. Increased echogenicity throughout the liver suggestive of fatty infiltration. The liver is enlarged at 18.5 cm. 2. There are gallstones in the gallbladder. No biliary tract obstruction. Prasad Cade MD Abdomen/Pelvis CT 11/08/16 0000 Signed Impressions: Service Date/Time: Tuesday, November 08, 2016 15:00 - CONCLUSION: #1. Small right-sided pleural effusion. #2. Hazy increased density identified adjacent to the head of the pancreas as compared to the body and tail which may represent early changes of acute pancreatitis. Recommend correlation with patient's laboratory values. #3. Small anterior hernia with preperitoneal fat. This is seen approximately 2 cm superior to the umbilicus. Darcie Evans MD Chest X-Ray 11/01/16 0000 Signed Impressions: Service Date/Time: Tuesday, November 01, 2016 14:05 - CONCLUSION: Bibasilar densities likely atelectasis. Neal Castro MD Renal Ultrasound 10/30/16 0000 Signed Impressions: Service Date/Time: October 08:13 - CONCLUSION: Unremarkable exam with no evidence of hydronephrosis. Wander Hodges MD Lumbar Puncture Fluoroscopy 10/27/16 0000 Signed Impressions: Service Date/Time: Thursday, October 27, 2016 12:19 - CONCLUSION: Uncomplicated fluoroscopically guided lumbar puncture with chemotherapy injection. Matt Lassiter MD PICC Line Insertion 10/24/16 0000 Signed Impressions: Service Date/Time: Monday, October 24, 2016 12:01 - CONCLUSION: 1. Uncomplicated central venous Power PICC line placement. 2. The PICC line can be used immediately. Serafin Saba MD Bone Biopsy CT 10/24/16 0000 Signed Impressions: Service Date/Time: Monday, October 24, 2016 16:09 - CONCLUSION: 1. Uncomplicated CT guided bone marrow aspirate. 2. Uncomplicated CT guided bone marrow biopsy. Balwinder Swenson MD PE at Discharge GENERAL: This is a well-nourished, well-developed patient, in no apparent distress. CARDIOVASCULAR: Regular rate and regular rhythm without murmurs, gallops, or rubs. RESPIRATORY: Clear to auscultation. Breath sounds equal bilaterally. No wheezes , rales, or rhonchi. GASTROINTESTINAL: Abdomen soft, non-tender, nondistended. Normal, active bowel sounds MUSCULOSKELETAL: Extremities without clubbing, cyanosis, or edema. NEURO: Alert & Oriented x4 to person, place, time, situation. 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 - Patient will continue outpatient chemotherapy. Follow up with oncology - Hematology/Oncology states patient is ready for discharge from hematologic standpoint. Requires readmission in the upcoming 2 weeks for cycle #2/arm B Hyper- CVAD leukocytosis mostly due to steroids, skin rash still exist, awaiting skin punch biopsy result. Pneumonia: Off antibiotics per infectious disease. DuoNeb as needed. Stable on room air. - ID signed off. Clinically stable on infectious disease standpoint. Hypertension: Continue amlodipine. Vasotec IV as needed. Blood pressure control improved. Tumor lysis syndrome: S/P Rasburicase. Appreciate oncology, nephrology management. Atrial fibrillation with RVR: Appreciate cardiology recommendations.2-D echocardiogram shows ejection fraction 55-60%. Continue oral Cardizem, metoprolol. Acute renal failure: Dialysis per nephrology (--). Adequate UO. . Avoid nephrotoxins. renal function improving. -no need for further dialysis - permacath will be removed -nephrology has signed off- f/u as outpatient. Poor oral intake: Likely secondary to chemotherapy. Continue Megace. Complaints of decreased appetite. Encouraged. Rash: Has rash on upper back and chest that started 2 days ago. Rash is papular and there is evidence of excoriation. Patient denies chest pain, dyspnea, wheeze. Lungs are clear on exam. - Only new medication is metoprolol, started 11/14/16. Monitor rash. - Was on multiple antibiotics previously broad spectrum coverage which may have caused the reaction. ID did not recommend antibiotic - Benadryl available PRN, Hydrocortisone cream -Collagen suggesting drug induced, most of the nonessential medication have been stopped -Status post skin punch biopsy, awaiting pathology -Started on prednisone by oncology Diarrhea: Was given one time dose of Imodium. Cdiff checked on 11/06/16 which was negative. - No complaints Generalized weakness - evaluated by PT. DVT prophylaxis: SCDs, KRISTEN sauer. Pt Condition on Discharge: Good Discharge Disposition: Discharge Home Discharge Time: > 30 minutes Discharge Instructions DIET: Follow Instructions for: Heart Healthy Diet, Low Sodium Diet Activities you can perform: Regular-No Restrictions Follow up Referrals: Nephrology - 1 Week Oncology/Hematology - 1 Week with Sukhwinder Rice MD PCP Follow-up - 1 Week Surgical New Medications: Adjustable Commode 3-in-1 (Adjustable Commode 3-in-1) 1 Mis Mis EA .ROUTE DIRECTED, #1 Bedside Commode (Bedside Commode) 1 Mis Mis EA .ROUTE DIRECTED, #1 Pantoprazole (Protonix) 20 Mg Tab 20 MG PO DAILY for Reflux, #30 TAB 0 Refills Prednisone (Prednisone) 5 Mg Tab 5 MG PO DAILY for Itching, #12 TAB 0 Refills 30 mg po daily for three days then 20 mg po daily for three days then 10 mg po daily for three days then 5 mg po daily for three days then stop. Walker Rolling/GetGo (Walker Rolling/GetGo) 1 Mis Mis EA .ROUTE DIRECTED, #1 Allopurinol (Zyloprim) 100 Mg Tab 200 MG PO DAILY for gout, #30 TAB Calcium/Vitamin D (Oyster Shell 250 mg + Vit D Tb) 250 Mg Calcium (625 Mg)-125 Unit Tablet 500 MG PO Q12HR for hypoca, #60 TAB Diltiazem CD 24 HR (Cardizem CD 24 HR) 240 Mg Caper 240 MG PO DAILY for hypertension for 30 Days, #30 CAP 0 Refills Diphenhydramine HCl (Benadryl Allergy) 25 Mg Cap 25 MG PO Q4H PRN for SEE LABEL COMMENTS, #20 CAP Hydrocortisone (Topical) (Gnp Hydrocortisone Maximu) 1 % Oin 1 APPLIC TOPICAL BID for Rash for 10 Days, #2 TUBE Lactobacillus Acidophilus (Acidophilus/l-Sporogenes) 35 Million Cell-25 Million Cell Tab 1 TAB PO TID for proph, #30 TAB Megestrol Liq (Megestrol Liq) 40 Mg/Ml Susp 400 MG PO DAILY for appetite MDD 400, #30 TAB Metoprolol Tartrate (Metoprolol Tartrate) 25 Mg Tab 25 MG PO Q12HR for htn, #60 TAB Oxycodone-Acetaminophen (Oxycodone-Acetaminophen) 5-325 mg Tab 1 TAB PO Q3H PRN for PAIN 1-5, #60 TAB Sucralfate Liq (Sucralfate Liq) 1 Gram/10 Ml Maki 1 GM PO ACHS for gi, #60 TAB Tabitha Jimenez MD Nov 30, 2016 08:05
[2016-11-30] MEDS ORDERED: PANT20 PO (08:11)
[2016-11-30] MEDS: MUPIROCIN 2% OINT 22 GM TUBE TOPICAL SCH ×2 (09:00→21:00)
[2016-11-30] MEDS: SODIUM CHLORIDE 0.9% FLUSH 10 ML FLUSH IV FLUSH SCH ×2 (09:00→21:11)
[2016-11-30] MEDS: DILTIAZEM-CD 240 MG CAP ER PO SCH (09:35)
[2016-11-30] MEDS: LACTOBACILLUS ACIDOPHILUS TAB PO SCH ×3 (09:35→18:11)
[2016-11-30] MEDS: PANTOPRAZOLE SOD 20 MG DELAYED RELEASE TAB PO SCH (09:35)
[2016-11-30] MEDS: SODIUM CHLORIDE 0.9% FLUSH 10 ML FLUSH IVF SCH (09:35)
[2016-11-30] MEDS: METOPROLOL TARTRATE 25 MG TAB PO SCH ×2 (09:35→21:12)
[2016-11-30] MEDS: predniSONE 20 MG TAB PO SCH (09:35)
[2016-11-30] MEDS: CALCIUM/VITAMIN D 250 MG/125 U TAB PO SCH ×2 (09:36→21:12)
[2016-11-30] MEDS: SEVELAMER CARBONATE 800 MG TAB PO SCH ×3 (09:36→18:11)
--- NOTE | 2016-11-30 11:44 | HHI.NPPN ---
Subjective General Problems: Anemia, Edema, Hypertension Renal Failure: Acute Interval History He is doing well. Renal function is improving. Concerned about persistence of rash, but I feel that rash is improving as well. Review of Systems General Constitutional: Fatigue Gastrointestinal GI Remarks loss of appetite Skin Skin: Skin Rash Objective Data Data Vital Signs Date Time Temp Pulse Resp B/P (MAP) Pulse Ox O2 Delivery O2 Flow Rate FiO2 11/30/16 09:34 79 11/30/16 04:08 63 11/30/16 04:00 97.9 67 19 137/61 (86) 98 11/30/16 00:17 63 11/30/16 00:00 97.6 93 19 125/54 (77) 99 11/29/16 20:10 72 11/29/16 20:00 96.1 72 18 147/57 (87) 99 11/29/16 16:00 97.9 61 20 135/60 (85) 97 11/29/16 12:00 98.0 64 18 138/63 (88) 98 -: 11/29/16 1255 11/30/16 0545 Tubes & Lines: Perma-Cath Physical Exam General Appearance: Well Developed, Well Nourished, No Acute Distress, Comfortable Eyes Eye Exam: Pupils Equal, Pupils Reactive Throat Throat Exam: Oral Mucosa Ogema & Moist Neck Neck Exam: Neck Supple Pulmonary Resp Exam: Clear Bilaterally, Breath Sounds Equal, No Distress Cardiology CV Exam: Regular, Normal Sinus Rhythm, Good Perfusion Gastrointestinal/Abdomen GI Exam: Soft, Non-Tender, Bowel Sounds Present, Positive Bowel Movement Musculoskeletal MS Exam: Joints Intact, Normal Gait, Normal Tone Integumentary Skin Exam: Clear, Warm, Dry, Intact Skin Remarks rash Extremeties Extremities Exam: Pedal Pulses Palpable, Trace Edema Neurologic Neuro Exam: Alert, Awake, Oriented, Speech Clear, Moving All Extremities Psychiatric Psych Exam: Appropriate Responses Assessment/Plan Discussed Condition With: Patient Assessment Summary: FAIZA/Acute Renal Failure, Hypertension Electrolyte Assessment: Hypocalcemia Problem List: (1) Acute kidney injury ICD Codes: N17.9 - Acute kidney failure, unspecified Status: Acute Plan: 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 Renal function has improved. Non oliguric PermCath can be removed. Consulted IR. Patient can be discharged if PermCath can be removed. Higher BUN is due to Prednisone: Continue to taper it off. 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 To follow outpatient, oncology has cleared for discharge (3) Hypocalcemia ICD Codes: E83.51 - Hypocalcemia Status: Acute Plan: improved, monitor (4) Pancytopenia ICD Codes: D61.818 - Other pancytopenia Status: Acute Plan: Resolved. Monitor (5) Rash and nonspecific skin eruption ICD Codes: R21 - Rash and other nonspecific skin eruption Plan: Possible drug eruption. Due to Allopurinol? Improving. Continue symptomatic management, taper down steroids. Problem Qualifiers (1) Acute lymphocytic leukemia: Qualified Codes: C91.00 - Acute lymphoblastic leukemia not having achieved remission Clay Galicia MD Nov 30, 2016 11:44
[2016-12-01] VITALS: BP 123/50; PULSE 69; RESP 18; TEMP 97; O2SAT 99
[2016-12-01 00:18] VITALS: PULSE 63
[2016-12-01 04:00] VITALS: BP 128/52; PULSE 70; RESP 18; TEMP 97.4; O2SAT 98
[2016-12-01 04:01] VITALS: PULSE 64
--- NOTE | 2016-12-01 07:33 | PD.ONC.PN ---
Subjective Subjective Remarks Patient seen and examined, vital signs, medications and labs reviewed. Bait Packer notes reviewed as well. Subjectively; the patient reports feeling overall a great deal improved over the past few days. He continues to produce a good amount of urine and is happy to report his renal function continues to improve. He is expecting to be discharged home later today after his dialysis catheter is removed. He specifically denies fevers, chills, night sweats, difficulty breathing, overt bleeding, abdominal pain, nausea or vomiting. He tells me his appetite is excellent and he had a full meal last night which she was able to hold down. He has several questions regarding follow-up plans as well as readmission for additional systemic chemotherapy. Objective Data Date Time Temp Pulse Resp B/P (MAP) Pulse Ox O2 Delivery O2 Flow Rate FiO2 12/01/16 04:01 64 12/01/16 04:00 97.4 70 18 128/52 (77) 98 12/01/16 00:18 63 12/01/16 00:00 97.0 69 18 123/50 (74) 99 11/30/16 20:03 95 11/30/16 20:00 96.0 74 16 136/69 (91) 100 11/30/16 16:10 66 11/30/16 16:00 98.0 66 14 140/68 (92) 94 11/30/16 12:16 69 11/30/16 12:00 98.0 65 16 137/63 (87) 100 11/30/16 09:34 79 11/30/16 08:01 75 11/30/16 08:00 97.7 79 16 163/66 (98) 99 12/01/16 12/01/16 12/01/16 07:00 15:00 23:00 Intake Total 240 ml Output Total 350 ml Balance -110 ml Result Diagram: 11/29/16 1255 11/30/16 0545 Administered Medications Medications (Trade) Dose Ordered Sig/Daniel Route PRN Reason Start Time Stop Time Status Last Admin Dose Admin Sodium Chloride (NS Flush) 2 ml UNSCH PRN IV FLUSH FLUSH AFTER USING IV ACCESS 10/24/16 01:45 11/25/16 04:46 Sodium Chloride (NS Flush) 2 ml BID IV FLUSH 10/24/16 09:00 11/30/16 21:11 Sodium Chloride (NS Flush) DAILY IVF 10/25/16 09:00 11/30/16 09:35 Heparin Sodium (Porcine) (Heparin Central Flush) DAILY IV FLUSH 10/25/16 09:00 11/30/16 09:35 Sodium Chloride (NS Flush) 2 ml UNSCH PRN IVF SEE PROTOCOL 10/24/16 13:15 11/16/16 09:28 Lactobacillus Acidophilus (Lactinex) 1 tab TID PO 10/24/16 18:00 11/30/16 18:11 Miscellaneous (Pill Splitter) 1 ea UNSCH PRN OTHER SEE LABEL COMMENTS 10/30/16 06:45 10/30/16 06:36 Sodium Chloride 1,000 ml @ 0 mls/hr Q0M PRN IV For Prime & Rinse Back 10/30/16 08:47 11/24/16 10:08 Heparin Sodium (Porcine) (Heparin Inj) 8,000 units UNSCH PRN IVF WITH DIALYSIS 10/30/16 09:00 11/19/16 15:27 Sodium Chloride (NS Flush) 5 ml UNSCH PRN IV FLUSH WITH DIALYSIS 10/30/16 09:00 11/26/16 04:52 Heparin Sodium (Porcine) (Heparin Inj) UNSCH PRN .XX WITH DIALYSIS 10/30/16 09:00 11/24/16 10:09 Gentamicin Sulfate (Gentamicin (Dialysis) Inj) 20 mg UNSCH PRN IV WITH DIALYSIS 10/30/16 09:00 11/24/16 10:09 Ondansetron HCl (Zofran Inj) 4 mg UNSCH PRN IV WITH DIALYSIS 10/30/16 09:00 11/03/16 23:59 Acetaminophen (Tylenol) 650 mg UNSCH PRN PO for headach, pain, temp > 101F 10/30/16 09:00 11/07/16 23:21 Diphenhydramine HCl (Benadryl) 25 mg UNSCH PRN PO for hives/itching/anaphylaxis 10/30/16 09:00 11/30/16 05:50 Mupirocin (Bactroban 2% Oint) 1 applic Q12HR TOPICAL 11/01/16 21:00 11/20/16 09:00 Ondansetron HCl (Zofran Inj) 4 mg Q6H PRN IV PUSH nausea 11/04/16 08:45 11/11/16 20:57 Calcium/Vitamin D (Oscal-D 250-125) 500 mg Q12HR PO 11/07/16 21:00 11/30/16 21:12 Hydromorphone HCl (Dilaudid Pf Inj) 1 mg Q3H PRN IV PAIN 6-10 11/08/16 16:45 11/09/16 06:36 Diphenhydramine HCl (Benadryl) 25 mg Q4H PRN PO SEE LABEL COMMENTS 11/10/16 07:30 11/12/16 13:00 Metoprolol Tartrate (Lopressor) 25 mg Q12HR PO 11/14/16 09:00 11/30/16 21:12 Diltiazem HCl (Cardizem Cd) 240 mg DAILY PO 11/14/16 09:00 11/30/16 09:35 Loperamide HCl (Imodium) 2 mg Q4H PRN PO diarrhea 11/15/16 23:30 11/15/16 23:37 Sodium Chloride (NS Flush) UNSCH PRN IVF SEE PROTOCOL 11/18/16 18:00 11/26/16 04:53 Pantoprazole Sodium (Protonix) 20 mg DAILY PO 11/26/16 09:00 11/30/16 09:35 Sevelamer Carbonate (Renvela) 800 mg TIDAC PO 11/27/16 12:00 11/30/16 18:11 Prednisone (Deltasone) 30 mg DAILY PO 11/30/16 09:00 11/30/16 09:35 Objective Remarks GENERAL APPEARANCE: Mr. Chou is an elderly male, he is tall and heavy-set, He sitting up, appears to be no acute distress. He is a diffuse maculopapular rash involving his face, torso and arms. HEENT: Head atraumatic, normocephalic, conjunctivae are pale. Sclerae are anicteric, EOMI, PERRLA, oral exam no pharyngeal erythema. He has a submucosal bruise along the right side of the soft palate. NECK: No palpable cervical or supraclavicular lymphadenopathy. Right . Right IJ dialysis catheter has been removed, it has been replaced by a tunneled Vas-Cath on the right side. RESPIRATORY: Good air movement bilaterally over the upper and middle lung zones , decreased breath sounds over the bases. No added breath sounds. CARDIOVASCULAR: Regular rate and rhythm, S1-S2. No obvious murmurs, gallops. ABDOMEN: Obese belly, soft, nontender, nondistended, no palpable organ enlargement, specifically no hepatosplenomegaly. EXTREMITIES: Lower extremities, positive for pretibial edema. No calf tenderness. PICC line in right arm. JAZ/LYMPH EXAMINATION: No cervical lymphadenopathy, no axillary lymphadenopathy and no inguinal lymphadenopathy. BRASS BUFFER: Exam without any abnormal findings specifically no motor or sensory deficits. Skin: Maculopapular rash diffusely present over most of his skin. The rash is less erythematous today and seems to be scaling and peeling. 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 Monitor periodic CBC. -- Status post induction systemic therapy with hyper-CVAD with Rituxan. 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 S/p C1 Hyper-CVAD + R. -- Complicated by TLS and ARF requiring HD for this. -- He is ready for discharge from a hematologic standpoint. -- He will need to be set up with outpatient dialysis prior to discharge from a renal standpoint. 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 S/p cycle 1 Hyper-CVAD + Rituxan and IT cytarabine. Plan 1. B-cell ALL (Fletcher chromosome negative): Status post cycle #1 (Arm A ) hyper-CVAD with Rituxan and intrathecal chemotherapy. His counts have recovered. I would like to discharge him home before treating him with cycle # 2 (Arm B) Hyper-CVAD with Rituxan and intrathecal cytarabine. 2. ARF due to TLS; HD on hold. renal function continuing to improve. 3. Rash: s/p biopsy, await pathologic findings. He does not need to remain in the hospital while we await the final results. Continue oral prednisone 30 MG by mouth daily which seems to be helping the itching. This may be completely tapered off over the next one week. Disposition: Discharge home later today with outpatient follow-up. Okay to remove right upper extremity PICC line prior to discharge. Problem Qualifiers (1) Acute lymphocytic leukemia: Qualified Codes: C91.00 - Acute lymphoblastic leukemia not having achieved remission Sukhwinder Rice MD Dec 01, 2016 07:33
--- NOTE | 2016-12-01 07:40 | HHI.PR ---
Subjective Remarks resting comfortably with no distress. denies pain. no new complaints. Objective Vitals Vital Signs Date Time Temp Pulse Resp B/P (MAP) Pulse Ox O2 Delivery O2 Flow Rate FiO2 12/01/16 04:01 64 12/01/16 04:00 97.4 70 18 128/52 (77) 98 12/01/16 00:18 63 12/01/16 00:00 97.0 69 18 123/50 (74) 99 11/30/16 20:03 95 11/30/16 20:00 96.0 74 16 136/69 (91) 100 11/30/16 16:10 66 11/30/16 16:00 98.0 66 14 140/68 (92) 94 11/30/16 12:16 69 11/30/16 12:00 98.0 65 16 137/63 (87) 100 11/30/16 09:34 79 11/30/16 08:01 75 11/30/16 08:00 97.7 79 16 163/66 (98) 99 I/O 11/30/16 11/30/16 11/30/16 12/01/16 12/01/16 12/01/16 07:00 15:00 23:00 07:00 15:00 23:00 Intake Total 240 ml 680 ml 480 ml 240 ml Output Total 600 ml 925 ml 400 ml 350 ml Balance -360 ml -245 ml 80 ml -110 ml Intake Oral 240 ml 680 ml 480 ml 240 ml Output Urine Total 600 ml 925 ml 400 ml 350 ml # Bowel Movements 1 1 Result Diagram: 11/29/16 1255 11/30/16 0545 Imaging Last Impressions Catheter Placement X-Ray 11/18/16 0000 Signed Impressions: Service Date/Time: Friday, November 18, 2016 16:47 - CONCLUSION: Uncomplicated PermaCath placement as above. Balwinder Oliver MD Gall Bladder Ultrasound 11/09/16 0000 Signed Impressions: Service Date/Time: Wednesday, November 09, 2016 12:22 - CONCLUSION: 1. Increased echogenicity throughout the liver suggestive of fatty infiltration. The liver is enlarged at 18.5 cm. 2. There are gallstones in the gallbladder. No biliary tract obstruction. Prasad Cade MD Abdomen/Pelvis CT 11/08/16 0000 Signed Impressions: Service Date/Time: Tuesday, November 08, 2016 15:00 - CONCLUSION: #1. Small right-sided pleural effusion. #2. Hazy increased density identified adjacent to the head of the pancreas as compared to the body and tail which may represent early changes of acute pancreatitis. Recommend correlation with patient's laboratory values. #3. Small anterior hernia with preperitoneal fat. This is seen approximately 2 cm superior to the umbilicus. Darcie Evans MD Chest X-Ray 11/01/16 0000 Signed Impressions: Service Date/Time: Tuesday, November 01, 2016 14:05 - CONCLUSION: Bibasilar densities likely atelectasis. Neal Castro MD Renal Ultrasound 10/30/16 0000 Signed Impressions: Service Date/Time: October 08:13 - CONCLUSION: Unremarkable exam with no evidence of hydronephrosis. Wander Hodges MD Lumbar Puncture Fluoroscopy 10/27/16 0000 Signed Impressions: Service Date/Time: Thursday, October 27, 2016 12:19 - CONCLUSION: Uncomplicated fluoroscopically guided lumbar puncture with chemotherapy injection. Matt Lassiter MD PICC Line Insertion 10/24/16 0000 Signed Impressions: Service Date/Time: Monday, October 24, 2016 12:01 - CONCLUSION: 1. Uncomplicated central venous Power PICC line placement. 2. The PICC line can be used immediately. Serafin Saba MD Bone Biopsy CT 10/24/16 0000 Signed Impressions: Service Date/Time: Monday, October 24, 2016 16:09 - CONCLUSION: 1. Uncomplicated CT guided bone marrow aspirate. 2. Uncomplicated CT guided bone marrow biopsy. Balwinder Swenson MD Objective Remarks GENERAL: This is a well-nourished, well-developed patient, in no apparent distress. CARDIOVASCULAR: Regular rate and regular rhythm without murmurs, gallops, or rubs. RESPIRATORY: Clear to auscultation. Breath sounds equal bilaterally. No wheezes , rales, or rhonchi. GASTROINTESTINAL: Abdomen soft, non-tender, nondistended. Normal, active bowel sounds MUSCULOSKELETAL: Extremities without clubbing, cyanosis, or edema. NEURO: Alert & Oriented x4 to person, place, time, situation. Moves all ext x4 skin; generalized rash Procedures 10/24/16 PICC line placement 10/24/16 bone marrow biopsy 10/30/16 Vas-Cath placement skin biopsy perma-cath placement Medications and IVs Current Medications Sodium Chloride (NS Flush) 2 ml UNSCH PRN IV FLUSH FLUSH AFTER USING IV ACCESS Last administered on 11/25/16 04:46; Start 10/24/16 at 01:45 Sodium Chloride (NS Flush) 2 ml BID IV FLUSH Last administered on 11/30/16 21: 11; Start 10/24/16 at 09:00 Naloxone HCl (Narcan Inj) 0.4 mg UNSCH PRN IV SEE LABEL COMMENTS; Start at 01:45 Cefepime HCl 2000 mg/Sodium Chloride 100 ml @ 200 mls/hr Q8H IV Last administered on 10/30/16 12:34; Start 10/24/16 at 04:00; Stop 10/30/16 at 12:57 ; Status DC Doxycycline Hyclate (Vibratab) 100 mg Q12HR PO Last administered on 11/13/16 09:31; Start 10/24/16 at 09:00; Stop 11/13/16 at 13:29; Status DC Albuterol/ Ipratropium (Duoneb Neb) 1 ampule Q4HR NEB PRN NEB SOB/Wheezing; Start 10/24/16 at 03:45 Heparin Sodium (Porcine) (*HEPARIN CENTRAL FLUSH PERIprocedural ONLY) 500 units STK-MED ONCE IV FLUSH Last administered on 10/24/16 11:37; Start 10/24/16 at 11:37; Stop 10/24/16 at 11:38; Status DC Sodium Chloride (NS Flush) DAILY IVF Last administered on 11/30/16 09:35; Start 10/25/16 at 09:00 Heparin Sodium (Porcine) (Heparin Central Flush) DAILY IV FLUSH Last administered on 11/30/16 09:35; Start 10/25/16 at 09:00 Sodium Chloride (NS Flush) 2 ml UNSCH PRN IVF SEE PROTOCOL Last administered on 11/16/16 09:28; Start 10/24/16 at 13:15 Lactobacillus Acidophilus (Lactinex) 1 tab TID PO Last administered on 18:11; Start 10/24/16 at 18:00 Midazolam HCl (Versed Inj) 4 mg STK-MED ONCE .ROUTE Last administered on 15:36; Start 10/24/16 at 15:36; Stop 10/24/16 at 15:37; Status DC Fentanyl Citrate (fentaNYL INJ) 250 mcg STK-MED ONCE .ROUTE Last administered on 10/24/16 15:36; Start 10/24/16 at 15:36; Stop 10/24/16 at 15:37; Status DC Lidocaine HCl (Xylocaine 1% Inj) 20 ml STK-MED ONCE .ROUTE ; Start 10/24/16 at 15:36; Stop 10/24/16 at 15:37; Status DC Iohexol (Omnipaque 350 Inj) 100 ml STK-MED ONCE IV Last administered on 16:08; Start 10/24/16 at 16:08; Stop 10/24/16 at 16:09; Status DC Sodium Chloride 250 ml @ 15 mls/hr ONCE ONCE IV ; Start 10/25/16 at 12:00; Stop 10/26/16 at 04:39; Status DC Acetaminophen (Tylenol) 650 mg Q4H PRN PO SEE LABEL COMMENTS Last administered on 10/25/16 14:34; Start 10/25/16 at 12:00; Stop 10/25/16 at 16:01; Status DC Diphenhydramine HCl (Benadryl) 25 mg Q4H PRN PO SEE LABEL COMMENTS Last administered on 10/25/16 14:34; Start 10/25/16 at 12:00; Stop 10/25/16 at 16:01 ; Status DC Furosemide (Lasix Inj) 20 mg ONCE ONCE IV Last administered on 10/25/16 21:18 ; Start 10/25/16 at 12:00; Stop 10/25/16 at 12:20; Status DC Enalaprilat (Vasotec Inj) 1.25 mg Q8H PRN IV PUSH SBP> OR = 180, DBP> OR = 100 ; Start 10/25/16 at 15:45 Amlodipine Besylate (Norvasc) 5 mg DAILY PO Last administered on 10/30/16 08: 59; Start 10/25/16 at 15:45; Stop 10/30/16 at 11:04; Status DC Allopurinol (Zyloprim) 300 mg ONCE ONCE PO Last administered on 10/25/16 18: 33; Start 10/25/16 at 17:45; Stop 10/25/16 at 17:54; Status DC Acetaminophen (Tylenol) 650 mg Q4H PRN PO WHILE BLOOD INFUSING Last administered on 10/25/16 18:33; Start 10/25/16 at 18:00; Stop 10/26/16 at 17:59 ; Status DC Diphenhydramine HCl (Benadryl) 25 mg Q4H PRN PO WHILE BLOOD INFUSING Last administered on 11/01/16 22:11; Start 10/25/16 at 18:00; Stop 11/03/16 at 07:54 ; Status DC Granisetron HCl (Kytril) 1 mg Q12HR PO Last administered on 10/29/16 20:54; Start 10/26/16 at 11:00; Stop 10/29/16 at 21:01; Status DC Dexamethasone Sodium Phosphate 40 mg/Sodium Chloride 60 ml @ 120 mls/hr DAILY IV Last administered on 10/29/16 14:49; Start 10/26/16 at 11:00; Stop at 09:29; Status DC Cyclophosphamide 741 mg/Sodium Chloride 250 ml @ 83.333 mls/ hr Q12H IV Last administered on 10/29/16 04:08; Start 10/26/16 at 12:00; Stop 10/29/16 at 02:59 ; Status DC [place] 1482 mg/ Sodium Chloride 514.82 ml @ 21.451 mls/hr Q24H IV Last administered on 10/28/16 13:36; Start 10/26/16 at 11:00; Stop 10/29/16 at 10:59 ; Status DC Vincristine Sulfate 2 mg/ Sodium Chloride 52 ml @ 312 mls/hr ONCE ONCE IV Last administered on 10/29/16 20:43; Start 10/29/16 at 12:00; Stop 10/29/16 at 12:09; Status DC Doxorubicin HCl 123.5 mg/Sodium Chloride 311.75 ml @ 155.875 mls/hr ONCE ONCE IV Last administered on 10/29/16 20:44; Start 10/29/16 at 12:45; Stop at 14:44; Status DC Methotrexate Sodium 12 mg/ Syringe / Bag 0.48 ml @ 0 mls/hr PEDIATRIC SURGEON IT Last administered on 10/27/16 12:33; Start 10/27/16 at 09:00; Stop 10/29/16 at 13:58 ; Status DC Cytarabine 100 mg/ Syringe / Bag ml @ 0 mls/hr PEDIATRIC SURGEON IT ; Start 11/01/16 at 09:00; Status Cancel Acetaminophen (Tylenol) 650 mg Q4H PRN PO SEE LABEL COMMENTS; Start 10/27/16 at 06:00; Stop 10/27/16 at 10:01; Status DC Diphenhydramine HCl (Benadryl) 25 mg Q4H PRN PO SEE LABEL COMMENTS; Start 10/27 at 06:00; Stop 10/27/16 at 10:01; Status DC Allopurinol (Zyloprim) 300 mg BID PO Last administered on 11/01/16 10:47; Start 10/27/16 at 09:00; Stop 11/01/16 at 11:32; Status DC Acetaminophen (Tylenol) 650 mg Q4H PRN PO SEE LABEL COMMENTS Last administered on 10/27/16 11:25; Start 10/27/16 at 11:30; Stop 10/27/16 at 15:31; Status DC Diphenhydramine HCl (Benadryl) 25 mg Q4H PRN PO SEE LABEL COMMENTS; Start 10/27 at 11:30; Stop 10/27/16 at 15:31; Status DC Sodium Acetate 100 meq/Dextrose 1,050 ml @ 84 mls/hr [id number] IV Last administered on 10/27/16 23:50; Start 10/27/16 at 23:30; Stop 10/29/16 at 07:13 ; Status DC Sodium Chloride 1,000 ml @ 100 mls/hr Q10H IV Last administered on 10/28/16 18:35; Start 10/28/16 at 17:00; Stop 10/28/16 at 23:59; Status DC Acetaminophen (Tylenol) 650 mg ONCE ONCE PO Last administered on 10/28/16 17: 43; Start 10/28/16 at 16:30; Stop 10/28/16 at 16:31; Status DC Diphenhydramine HCl (Benadryl) 50 mg ONCE ONCE PO Last administered on 17:43; Start 10/28/16 at 16:30; Stop 10/28/16 at 16:31; Status DC Rituximab 900 mg/ Sodium Chloride 590 ml @ 0 mls/hr ONCE ONCE IV Last administered on 10/28/16 18:21; Start 10/28/16 at 17:00; Stop 10/28/16 at 17:01 ; Status DC Prochlorperazine Maleate (Compazine) 10 mg NOW ONCE PO Last administered on 20:13; Start 10/28/16 at 21:00; Stop 10/28/16 at 21:01; Status DC Sodium Bicarbonate 100 meq/Dextrose 1,100 ml @ 83 mls/hr [id number] IV Last administered on 10/29/16 23:50; Start 10/29/16 at 09:00; Stop 10/30/16 at 08:23 ; Status DC Sodium Chloride 250 ml @ 15 mls/hr ONCE ONCE IV Last administered on 07:15; Start 10/29/16 at 07:15; Stop 10/29/16 at 23:54; Status DC Acetaminophen (Tylenol) 650 mg Q4H PRN PO SEE LABEL COMMENTS; Start 10/29/16 at 07:15; Stop 10/29/16 at 11:16; Status DC Diphenhydramine HCl (Benadryl) 25 mg Q4H PRN PO SEE LABEL COMMENTS; Start 10/29 at 07:15; Stop 10/29/16 at 11:16; Status DC Furosemide (Lasix Inj) 20 mg ONCE ONCE IV Last administered on 10/29/16 14:48 ; Start 10/29/16 at 07:15; Stop 10/29/16 at 07:25; Status DC Vancomycin HCl 1250 mg/Sodium Chloride 262.5 ml @ 262.5 mls/ hr Q12H IV Last administered on 10/29/16 08:44; Start 10/29/16 at 09:00; Stop 10/29/16 at 14:33 ; Status DC Acetaminophen (Tylenol) 650 mg Q4H PRN PO SEE LABEL COMMENTS Last administered on 10/29/16 12:02; Start 10/29/16 at 12:00; Stop 10/29/16 at 16:01; Status DC Pharmacy Profile Note 0 ml @ 0 mls/hr UNSCH OTHER ; Start 10/29/16 at 12:45; Stop 11/13/16 at 13:29; Status DC Vancomycin HCl 2000 mg/Sodium Chloride 520 ml @ 250 mls/hr ONCE ONCE IV Last administered on 10/29/16 23:50; Start 10/30/16 at 00:00; Stop 10/30/16 at 02:04 ; Status DC Vincristine Sulfate 2 mg/ Sodium Chloride 52 ml @ 312 mls/hr ONCE ONCE IV ; Start 10/29/16 at 20:30; Stop 10/29/16 at 20:39; Status DC Doxorubicin HCl 123.5 mg/Sodium Chloride 311.75 ml @ 155.875 mls/hr ONCE ONCE IV ; Start 10/29/16 at 21:00; Stop 10/29/16 at 22:59; Status DC Diltiazem HCl (Cardizem) 30 mg ONCE ONCE PO ; Start 10/30/16 at 06:30; Stop at 06:30; Status DC Diltiazem HCl (Cardizem) 30 mg ONCE ONCE PO Last administered on 10/30/16 06: 36; Start 10/30/16 at 06:30; Stop 10/30/16 at 06:31; Status DC Miscellaneous (Pill Splitter) 1 ea UNSCH PRN OTHER SEE LABEL COMMENTS Last administered on 10/30/16 06:36; Start 10/30/16 at 06:45 Sodium Chloride 1,000 ml @ 42 mls/hr [id number] IV Last administered on 04:36; Start 10/30/16 at 08:30; Stop 11/12/16 at 11:35; Status DC Bumetanide (Bumex Inj) 2 mg BID@09,18 IV PUSH Last administered on 11/11/16 09 :14; Start 10/30/16 at 09:00; Stop 11/11/16 at 10:18; Status DC Sevelamer Carbonate (Renvela) 1,600 mg TIDAC PO Last administered on 11/02/16 18:22; Start 10/30/16 at 12:00; Stop 11/03/16 at 11:19; Status DC Sodium Chloride 1,000 ml @ 0 mls/hr Q0M PRN IV For Prime & Rinse Back Last administered on 11/24/16 10:08; Start 10/30/16 at 08:47 Heparin Sodium (Porcine) (Heparin Inj) 8,000 units UNSCH PRN IVF WITH DIALYSIS Last administered on 11/19/16 15:27; Start 10/30/16 at 09:00 Sodium Chloride 1,000 ml @ 200 mls/hr Q5H PRN IV WITH DIALYSIS; Start 10/30/16 at 08:47 Sodium Chloride 1,000 ml @ 0 mls/hr Q0M PRN IV WITH DIALYSIS; Start 10/30/16 at 08:47 Mannitol (Mannitol Inj) 12.5 gm UNSCH PRN IV WITH DIALYSIS; Start 10/30/16 at 09:00 Albumin Human (Albumin 25% Inj) 25 gm UNSCH PRN IV WITH DIALYSIS; Start at 09:00 Sodium Chloride (NS Flush) 5 ml UNSCH PRN IV FLUSH WITH DIALYSIS Last administered on 11/26/16 04:52; Start 10/30/16 at 09:00 Heparin Sodium (Porcine) (Heparin Inj) UNSCH PRN .XX WITH DIALYSIS Last administered on 11/24/16 10:09; Start 10/30/16 at 09:00 Gentamicin Sulfate (Gentamicin (Dialysis) Inj) 20 mg UNSCH PRN IV WITH DIALYSIS Last administered on 11/24/16 10:09; Start 10/30/16 at 09:00 Ondansetron HCl (Zofran Inj) 4 mg UNSCH PRN IV WITH DIALYSIS Last administered on 11/03/16 23:59; Start 10/30/16 at 09:00 Acetaminophen (Tylenol) 650 mg UNSCH PRN PO for headach, pain, temp > 101F Last administered on 11/07/16 23:21; Start 10/30/16 at 09:00 Diphenhydramine HCl (Benadryl) 25 mg UNSCH PRN PO for hives/itching/ anaphylaxis Last administered on 11/30/16 05:50; Start 10/30/16 at 09:00 Nitroglycerin (Nitrostat Sl) 0.4 mg UNSCH PRN SL CHEST PAIN; Start 10/30/16 at 09:00 Clonidine (Catapres) 0.1 mg UNSCH PRN PO for BP > 180/100 X 2 readings; Start 10/30/16 at 09:00 Gelatin (Gelfoam 12 Mm/7 Mm Top) 1 foam UNSCH PRN TOP SEE LABEL COMMENTS; Start 10/30/16 at 09:00 Sodium Chloride 250 ml @ 15 mls/hr ONCE ONCE IV ; Start 10/30/16 at 09:15; Stop 10/31/16 at 01:54; Status DC Acetaminophen (Tylenol) 650 mg Q4H PRN PO SEE LABEL COMMENTS Last administered on 10/30/16 12:34; Start 10/30/16 at 11:00; Stop 10/30/16 at 15:01; Status DC Diphenhydramine HCl (Benadryl) 25 mg Q4H PRN PO SEE LABEL COMMENTS; Start 10/30 at 11:00; Stop 10/30/16 at 15:01; Status DC Pharmacy Profile Note 0 ml @ 0 mls/hr UNSCH OTHER ; Start 10/30/16 at 09:15; Status Cancel Diltiazem HCl (Cardizem) 30 mg Q6HR PO Last administered on 11/09/16 05:01; Start 10/30/16 at 12:00; Stop 11/09/16 at 12:26; Status DC Heparin Sodium (Porcine) (*HEPARIN INJ Periprocedural ONLY) 10,000 units STK- MED ONCE .ROUTE Last administered on 10/30/16 11:35; Start 10/30/16 at 11:17; Stop 10/30/16 at 11:18; Status DC Sodium Chloride (NS Flush) UNSCH PRN IVF SEE PROTOCOL; Start 10/30/16 at 11:45 ; Stop 11/18/16 at 19:42; Status DC Heparin Sodium (Porcine) (Heparin Inj) UNSCH PRN IV FLUSH SEE PROTOCOL; Start 10/30/16 at 11:45; Stop 11/18/16 at 19:42; Status DC Cefepime HCl 1000 mg/Sodium Chloride 100 ml @ 200 mls/hr Q24H IV ; Start at 12:00; Status UNV Cefepime HCl 1000 mg/Sodium Chloride 100 ml @ 200 mls/hr Q24H IV Last administered on 11/13/16 11:13; Start 10/31/16 at 12:00; Stop 11/13/16 at 13:29 ; Status DC Rasburicase 22.5 mg/Sodium Chloride 50 ml @ 100 mls/hr ONCE ONCE IV Last administered on 10/31/16 15:01; Start 10/31/16 at 12:00; Stop 10/31/16 at 12:29 ; Status DC Filgrastim (Neupogen Inj) 480 mcg DAILY@14 SQ Last administered on 11/13/16 15 :41; Start 10/31/16 at 14:00; Stop 11/14/16 at 12:53; Status DC Sodium Chloride 250 ml @ 15 mls/hr ONCE ONCE IV ; Start 11/01/16 at 08:00; Stop 11/02/16 at 00:39; Status DC Acetaminophen (Tylenol) 650 mg Q4H PRN PO SEE LABEL COMMENTS Last administered on 11/01/16 18:10; Start 11/01/16 at 08:00; Stop 11/01/16 at 12:01; Status DC Diphenhydramine HCl (Benadryl) 25 mg Q4H PRN PO SEE LABEL COMMENTS; Start 11/01 at 08:00; Stop 11/01/16 at 12:01; Status DC Furosemide (Lasix Inj) 20 mg ONCE ONCE IV Last administered on 11/02/16 01:45 ; Start 11/01/16 at 08:00; Stop 11/01/16 at 08:01; Status DC Mupirocin (Bactroban 2% Oint) 1 applic Q12HR TOPICAL Last administered on 09:00; Start 11/01/16 at 21:00 Allopurinol (Zyloprim) 200 mg DAILY PO Last administered on 11/25/16 08:59; Start 11/02/16 at 09:00; Stop 11/25/16 at 10:24; Status DC Pantoprazole Sodium (Protonix) 20 mg DAILY PO Last administered on 11/07/16 13 :14; Start 11/02/16 at 09:00; Stop 11/07/16 at 14:12; Status DC Pantoprazole Sodium (Protonix) 20 mg ONCE ONCE PO Last administered on 22:12; Start 11/01/16 at 19:45; Stop 11/01/16 at 19:46; Status DC Sodium Chloride 250 ml @ 15 mls/hr ONCE ONCE IV ; Start 11/02/16 at 08:00; Stop 11/03/16 at 00:39; Status DC Sodium Chloride 250 ml @ 15 mls/hr ONCE ONCE IV ; Start 11/03/16 at 07:45; Stop 11/04/16 at 00:24; Status DC Acetaminophen (Tylenol) 650 mg Q4H PRN PO SEE LABEL COMMENTS; Start 11/03/16 at 07:45; Stop 11/05/16 at 07:51; Status DC Diphenhydramine HCl (Benadryl) 25 mg Q4H PRN PO SEE LABEL COMMENTS; Start 11/03 at 07:45; Stop 11/05/16 at 07:51; Status DC Sevelamer Carbonate (Renvela) 2,400 mg TIDAC PO Last administered on 11/11/16 09:14; Start 11/03/16 at 12:15; Stop 11/12/16 at 11:35; Status DC Vancomycin HCl 1000 mg/Sodium Chloride 250 ml @ 250 mls/hr ONCE ONCE IV Last administered on 11/03/16 17:08; Start 11/03/16 at 16:00; Stop 11/03/16 at 16:59 ; Status DC Ondansetron HCl (Zofran Inj) 4 mg Q6H PRN IV PUSH nausea Last administered on 20:57; Start 11/04/16 at 08:45 Simethicone (Mylicon Chew) 80 mg PCHS CHEW Last administered on 11/25/16 08:59 ; Start 11/04/16 at 10:30; Stop 11/25/16 at 11:04; Status DC Sodium Chloride 250 ml @ 15 mls/hr ONCE ONCE IV ; Start 11/05/16 at 07:30; Stop 11/06/16 at 00:09; Status DC Acetaminophen (Tylenol) 650 mg Q4H PRN PO SEE LABEL COMMENTS Last administered on 11/05/16 17:02; Start 11/05/16 at 07:30; Stop 11/05/16 at 17:12; Status DC Diphenhydramine HCl (Benadryl) 25 mg Q4H PRN PO SEE LABEL COMMENTS Last administered on 11/05/16 17:02; Start 11/05/16 at 07:30; Stop 11/05/16 at 17:12 ; Status DC Vancomycin HCl 1000 mg/Sodium Chloride 250 ml @ 250 mls/hr ONCE ONCE IV Last administered on 11/06/16 12:28; Start 11/06/16 at 11:00; Stop 11/06/16 at 11:59 ; Status DC Sodium Chloride 250 ml @ 15 mls/hr ONCE ONCE IV ; Start 11/07/16 at 07:30; Stop 11/08/16 at 00:09; Status DC Acetaminophen (Tylenol) 650 mg Q4H PRN PO SEE LABEL COMMENTS Last administered on 11/07/16 16:51; Start 11/07/16 at 07:30; Stop 11/07/16 at 17:45; Status DC Diphenhydramine HCl (Benadryl) 25 mg Q4H PRN PO SEE LABEL COMMENTS Last administered on 11/07/16 16:52; Start 11/07/16 at 07:30; Stop 11/07/16 at 16:52 ; Status DC Vancomycin HCl 1000 mg/Sodium Chloride 250 ml @ 250 mls/hr ONCE ONCE IV Last administered on 11/07/16 16:15; Start 11/07/16 at 12:00; Stop 11/07/16 at 12:59 ; Status DC Pantoprazole Sodium (Protonix) 20 mg BID PO Last administered on 11/08/16 07: 59; Start 11/07/16 at 21:00; Stop 11/08/16 at 17:37; Status DC Promethazine HCl (Phenergan) 12.5 mg TIDAC PO Last administered on 11/08/16 07 :59; Start 11/07/16 at 17:00; Stop 11/08/16 at 11:57; Status DC Calcium Gluconate 1 gm/Dextrose 110 ml @ 110 mls/hr ONCE ONCE IV Last administered on 11/07/16 20:14; Start 11/07/16 at 18:00; Stop 11/07/16 at 18:59 ; Status DC Calcium/Vitamin D (Oscal-D 250-125) 500 mg Q12HR PO Last administered on 21:12; Start 11/07/16 at 21:00 Sucralfate (Carafate Liq) 1 gm ONCE ONCE PO Last administered on 11/08/16 12: 12; Start 11/08/16 at 11:30; Stop 11/08/16 at 11:31; Status DC Loperamide HCl (Imodium) 4 mg ONCE ONCE PO Last administered on 11/08/16 12: 23; Start 11/08/16 at 12:00; Stop 11/08/16 at 12:08; Status DC Oxycodone/ Acetaminophen (Percocet 5-325 Mg) 1 tab Q4H PRN PO PAIN 3-10 Last administered on 11/08/16 15:39; Start 11/08/16 at 13:30; Stop 11/08/16 at 16:43 ; Status DC Oxycodone/ Acetaminophen (Percocet 5-325 Mg) 1 tab Q3H PRN PO PAIN 1-5; Start 11/08/16 at 16:45 Hydromorphone HCl (Dilaudid Pf Inj) 1 mg Q3H PRN IV PAIN 6-10 Last administered on 11/09/16 06:36; Start 11/08/16 at 16:45 Sucralfate (Carafate Liq) 1 gm ACHS PO Last administered on 11/25/16 07:35; Start 11/08/16 at 21:00; Stop 11/25/16 at 11:04; Status DC Pantoprazole Sodium (Protonix Inj) 40 mg Q12H IV PUSH Last administered on 11/25 04:46; Start 11/08/16 at 17:45; Stop 11/25/16 at 11:04; Status DC Loperamide HCl (Imodium) 2 mg ONCE ONCE PO Last administered on 11/09/16 00: 25; Start 11/09/16 at 00:15; Stop 11/09/16 at 00:19; Status DC Diltiazem HCl (Cardizem Inj) 10 mg ONCE ONCE IV Last administered on 06:58; Start 11/09/16 at 06:45; Stop 11/09/16 at 06:50; Status DC Diltiazem HCl (Cardizem Inj) 15 mg NOW ONCE IV PUSH Last administered on 08:47; Start 11/09/16 at 08:45; Stop 11/09/16 at 08:46; Status DC Diltiazem HCl (Cardizem) 60 mg Q6H PO Last administered on 11/14/16 02:05; Start 11/09/16 at 14:00; Stop 11/14/16 at 04:00; Status DC Sodium Chloride 250 ml @ 15 mls/hr ONCE ONCE IV ; Start 11/10/16 at 05:30; Stop 11/10/16 at 22:09; Status DC Sodium Chloride 250 ml @ 15 mls/hr ONCE ONCE IV Last administered on 11:40; Start 11/10/16 at 07:30; Stop 11/11/16 at 00:09; Status DC Acetaminophen (Tylenol) 650 mg Q4H PRN PO SEE LABEL COMMENTS Last administered on 11/12/16 13:00; Start 11/10/16 at 07:30; Stop 11/12/16 at 14:07; Status DC Diphenhydramine HCl (Benadryl) 25 mg Q4H PRN PO SEE LABEL COMMENTS Last administered on 11/12/16 13:00; Start 11/10/16 at 07:30 Sodium Chloride 250 ml @ 15 mls/hr ONCE ONCE IV Last administered on 12:32; Start 11/10/16 at 08:30; Stop 11/11/16 at 01:09; Status DC Megestrol Acetate (Megace Liq) 400 mg DAILY PO Last administered on 11/22/16 09 :05; Start 11/11/16 at 09:00; Stop 11/25/16 at 11:04; Status DC Megestrol Acetate (Megace Liq) 400 mg ONCE ONCE PO Last administered on 10:56; Start 11/10/16 at 10:15; Stop 11/10/16 at 10:44; Status DC Cefepime HCl 1000 mg/Sodium Chloride 100 ml @ 200 mls/hr Q48H PRN IV WITH DIALYSIS Last administered on 11/14/16 12:16; Start 11/10/16 at 12:15; Stop 11/14 at 13:03; Status DC Nystatin (Mycostatin Liq) 5 ml QID SWISH-SWAL Last administered on 11/16/16 09 :15; Start 11/11/16 at 09:00; Stop 11/16/16 at 12:22; Status DC Bumetanide (Bumex Inj) 2 mg DAILY IV PUSH Last administered on 11/26/16 08:53 ; Start 11/12/16 at 09:00; Stop 11/26/16 at 11:27; Status DC Fluconazole (Diflucan) 100 mg DAILY PO Last administered on 11/18/16 08:04; Start 11/11/16 at 13:15; Stop 11/18/16 at 13:14; Status DC Acyclovir (Zovirax) 400 mg Q12HR PO Last administered on 11/18/16 08:04; Start 11/11/16 at 13:15; Stop 11/18/16 at 13:14; Status DC Sodium Chloride 250 ml @ 15 mls/hr ONCE ONCE IV ; Start 11/12/16 at 07:30; Stop 11/13/16 at 00:09; Status DC Acetaminophen (Tylenol) 650 mg Q4H PRN PO SEE LABEL COMMENTS; Start 11/12/16 at 07:30 Diphenhydramine HCl (Benadryl) 25 mg Q4H PRN PO SEE LABEL COMMENTS; Start 11/12 at 07:30 Vancomycin HCl 1000 mg/Sodium Chloride 250 ml @ 250 mls/hr ONCE ONCE IV Last administered on 11/12/16 16:46; Start 11/12/16 at 16:00; Stop 11/12/16 at 16:59 ; Status DC Potassium Phosphate (K-Phos) 500 mg ONCE ONCE PO Last administered on 15:30; Start 11/12/16 at 11:45; Stop 11/12/16 at 11:46; Status DC Potassium Phosphate (K-Phos) 500 mg ONCE ONCE PO Last administered on 11:14; Start 11/13/16 at 11:00; Stop 11/13/16 at 11:06; Status DC Metoprolol Tartrate (Lopressor) 50 mg ONCE ONCE PO Last administered on 17:11; Start 11/13/16 at 17:15; Stop 11/13/16 at 17:16; Status DC Metoprolol Tartrate (Lopressor Inj) 5 mg Q5M PRN IV PUSH Afib; Start 11/13/16 at 17:15; Stop 11/13/16 at 22:16; Status DC Metoprolol Tartrate (Lopressor) 25 mg Q12HR PO Last administered on 11/30/16 21:12; Start 11/14/16 at 09:00 Diltiazem HCl (Cardizem Cd) 240 mg DAILY PO Last administered on 11/30/16 09: 35; Start 11/14/16 at 09:00 Potassium Phos/ Sodium Phos (K-Phos Neutral) 250 mg BID PO Last administered on 11/16/16 09:14; Start 11/14/16 at 21:00; Stop 11/16/16 at 09:00; Status DC Vancomycin HCl 1250 mg/Sodium Chloride 262.5 ml @ 262.5 mls/ hr ONCE ONCE IV Last administered on 11/15/16 13:16; Start 11/15/16 at 11:00; Stop 11/15/16 at 11: 59; Status DC Loperamide HCl (Imodium) 2 mg Q4H PRN PO diarrhea Last administered on 23:37; Start 11/15/16 at 23:30 Hydrocortisone (Nutracort 1% Oint) 1 applic BID TOPICAL Last administered on 22:30; Start 11/17/16 at 13:30; Stop 11/27/16 at 13:29; Status DC Vancomycin HCl 1000 mg/Sodium Chloride 250 ml @ 250 mls/hr PEDIATRIC SURGEON IV Last administered on 11/18/16 16:12; Start 11/18/16 at 10:45; Stop 11/22/16 at 10:44; Status DC Cefazolin Sodium/ Dextrose 50 ml @ 100 mls/hr PEDIATRIC SURGEON IV ; Start 11/18/16 at 10 :45; Stop 11/22/16 at 10:44; Status DC Fentanyl Citrate (fentaNYL INJ) 100 mcg STK-MED ONCE .ROUTE Last administered on 11/18/16 16:44; Start 11/18/16 at 16:44; Stop 11/18/16 at 16:45; Status DC Midazolam HCl (Versed Inj) 2 mg STK-MED ONCE .ROUTE Last administered on 16:45; Start 11/18/16 at 16:45; Stop 11/18/16 at 16:46; Status DC Heparin Sodium (Porcine) (*HEPARIN INJ Periprocedural ONLY) 10,000 units STK- MED ONCE .ROUTE Last administered on 11/18/16 17:07; Start 11/18/16 at 17:07; Stop 11/18/16 at 17:08; Status DC Lidocaine/ Epinephrine (Xylocaine-Epi 2%-1:100,000 Inj) 20 ml STK-MED ONCE .ROUTE Last administered on 11/18/16 17:07; Start 11/18/16 at 17:07; Stop at 17:08; Status DC Midazolam HCl (Versed Inj) 2 mg STK-MED ONCE .ROUTE Last administered on 17:27; Start 11/18/16 at 17:27; Stop 11/18/16 at 17:28; Status DC Sodium Chloride (NS Flush) UNSCH PRN IVF SEE PROTOCOL Last administered on 04:53; Start 11/18/16 at 18:00 Heparin Sodium (Porcine) (Heparin Inj) UNSCH PRN IV FLUSH SEE PROTOCOL; Start 11/18/16 at 18:00 Methylprednisolone Sodium Succinate (SoluMEDROL INJ) 125 mg ONCE ONCE IV PUSH Last administered on 11/25/16 10:27; Start 11/25/16 at 09:30; Stop 11/25/16 at 09:31; Status DC Pantoprazole Sodium (Protonix) 20 mg DAILY PO Last administered on 11/30/16 09 :35; Start 11/26/16 at 09:00 Prednisone (Deltasone) 40 mg DAILY PO Last administered on 11/29/16 08:26; Start 11/26/16 at 09:00; Stop 11/29/16 at 09:25; Status DC Lidocaine/ Epinephrine (Xylocaine-Epi 1%-1:100,000 Inj) 30 ml ONCE ONCE INFIL ; Start 11/26/16 at 10:30; Stop 11/26/16 at 12:45; Status DC Lidocaine/ Epinephrine (Xylocaine-Epi 2%-1:100,000 Inj) 30 ml ONCE ONCE INFIL ; Start 11/26/16 at 12:45; Stop 11/26/16 at 12:46; Status UNV Sevelamer Carbonate (Renvela) 800 mg TIDAC PO Last administered on 11/30/16 18 :11; Start 11/27/16 at 12:00 Prednisone (Deltasone) 30 mg DAILY PO Last administered on 11/30/16 09:35; Start 11/30/16 at 09:00 Date of Insertion: Oct 24, 2016 Line: PICC Side: Right A/P Assessment and Plan 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 - Patient will continue outpatient chemotherapy. Follow up with oncology - Hematology/Oncology states patient is ready for discharge from hematologic standpoint. Requires readmission in the upcoming 2 weeks for cycle #2/arm B Hyper- CVAD leukocytosis mostly due to steroids, skin rash still exist, awaiting skin punch biopsy result. Pneumonia: Off antibiotics per infectious disease. DuoNeb as needed. Stable on room air. - ID signed off. Clinically stable on infectious disease standpoint. Hypertension: Continue amlodipine. Vasotec IV as needed. Blood pressure control improved. Tumor lysis syndrome: S/P Rasburicase. Appreciate oncology, nephrology management. Atrial fibrillation with RVR: Appreciate cardiology recommendations.2-D echocardiogram shows ejection fraction 55-60%. Continue oral Cardizem, metoprolol. Acute renal failure: off -dialysis- renal function improving. -no need for further dialysis - permacath will be removed -nephrology has signed off- f/u as outpatient. Poor oral intake: Likely secondary to chemotherapy. Continue Megace. Complaints of decreased appetite. Encouraged. Rash: Has rash on upper back and chest that started 2 days ago. Rash is papular and there is evidence of excoriation. Patient denies chest pain, dyspnea, wheeze. Lungs are clear on exam. - Only new medication is metoprolol, started 11/14/16. Monitor rash. - Was on multiple antibiotics previously broad spectrum coverage which may have caused the reaction. ID did not recommend antibiotic - Benadryl available PRN, Hydrocortisone cream -Collagen suggesting drug induced, most of the nonessential medication have been stopped -Status post skin punch biopsy, awaiting pathology -Started on prednisone by oncology Generalized weakness - evaluated by PT. DVT prophylaxis: SCDs, KRISTEN sauer. Discharge Planning dc home after perma-cath has been removed. f/u; pcp,oncology,nephrology and surgery. see med list. d/w the patient and RN. time spent 35 min. Tabitha Jimenez MD Dec 01, 2016 07:40
[2016-12-01 08:00] VITALS: BP 140/70; PULSE 86; RESP 22; TEMP 97.7; O2SAT 100
[2016-12-01] MEDS: MUPIROCIN 2% OINT 22 GM TUBE TOPICAL SCH (09:00)
[2016-12-01] MEDS: SEVELAMER CARBONATE 800 MG TAB PO SCH ×2 (09:10→12:00)
[2016-12-01] MEDS: LACTOBACILLUS ACIDOPHILUS TAB PO SCH ×2 (09:10→13:11)
[2016-12-01] MEDS: DILTIAZEM-CD 240 MG CAP ER PO SCH (09:10)
[2016-12-01] MEDS: PANTOPRAZOLE SOD 20 MG DELAYED RELEASE TAB PO SCH (09:11)
[2016-12-01] MEDS: predniSONE 20 MG TAB PO SCH (09:11)
[2016-12-01] MEDS: CALCIUM/VITAMIN D 250 MG/125 U TAB PO SCH (09:11)
[2016-12-01] MEDS: METOPROLOL TARTRATE 25 MG TAB PO SCH (09:11)
[2016-12-01] MEDS: SODIUM CHLORIDE 0.9% FLUSH 10 ML FLUSH IV FLUSH SCH (09:12)
--- NOTE | 2016-12-01 11:17 | HHI.NPPN ---
Subjective General Problems: Anemia, Edema, Hypertension Renal Failure: Acute Interval History PermCath to be removed. Ready for discharge. Review of Systems General Constitutional: Fatigue Gastrointestinal GI Remarks loss of appetite Skin Skin: Skin Rash Objective Data Data Vital Signs Date Time Temp Pulse Resp B/P (MAP) Pulse Ox O2 Delivery O2 Flow Rate FiO2 12/01/16 08:00 97.7 86 22 140/70 (93) 100 12/01/16 04:01 64 12/01/16 04:00 97.4 70 18 128/52 (77) 98 12/01/16 00:18 63 12/01/16 00:00 97.0 69 18 123/50 (74) 99 11/30/16 20:03 95 11/30/16 20:00 96.0 74 16 136/69 (91) 100 11/30/16 16:10 66 11/30/16 16:00 98.0 66 14 140/68 (92) 94 11/30/16 12:16 69 11/30/16 12:00 98.0 65 16 137/63 (87) 100 -: 11/29/16 1255 11/30/16 0545 Tubes & Lines: Perma-Cath Physical Exam General Appearance: Well Developed, Well Nourished, No Acute Distress, Comfortable Eyes Eye Exam: Pupils Equal, Pupils Reactive Throat Throat Exam: Oral Mucosa [place] & Moist Neck Neck Exam: Neck Supple Pulmonary Resp Exam: Clear Bilaterally, Breath Sounds Equal, No Distress Cardiology CV Exam: Regular, Normal Sinus Rhythm, Good Perfusion Gastrointestinal/Abdomen GI Exam: Soft, Non-Tender, Bowel Sounds Present, Positive Bowel Movement Musculoskeletal MS Exam: Joints Intact, Normal Gait, Normal Tone Integumentary Skin Exam: Clear, Warm, Dry, Intact Skin Remarks rash Extremeties Extremities Exam: Pedal Pulses Palpable, Trace Edema Neurologic Neuro Exam: Alert, Awake, Oriented, Speech Clear, Moving All Extremities Psychiatric Psych Exam: Appropriate Responses Assessment/Plan Discussed Condition With: Patient Assessment Summary: FAIZA/Acute Renal Failure, Hypertension Electrolyte Assessment: Hypocalcemia Problem List: (1) Acute kidney injury ICD Codes: N17.9 - Acute kidney failure, unspecified Status: Acute Plan: 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 Renal function has improved. Non oliguric PermCath can be removed. Consulted IR. Patient can be discharged if PermCath can be removed. Higher BUN is due to Prednisone: Continue to taper it off. 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 To follow outpatient, oncology has cleared for discharge (3) Hypocalcemia ICD Codes: E83.51 - Hypocalcemia Status: Acute Plan: improved, monitor (4) Pancytopenia ICD Codes: D61.818 - Other pancytopenia Status: Acute Plan: Resolved. Monitor (5) Rash and nonspecific skin eruption ICD Codes: R21 - Rash and other nonspecific skin eruption Plan: Possible drug eruption. Due to Allopurinol? Improving. Continue symptomatic management, taper down steroids. 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
[2016-12-01 12:52] VITALS: BP 133/87; PULSE 59; RESP 21; TEMP 96.4; O2SAT 100
[2016-12-01] MEDS: SODIUM CHLORIDE 0.9% FLUSH 10 ML FLUSH IVF SCH (13:12)
--- NOTE | 2016-12-01 14:55 | HHI.FF ---
Face to Face Verification Diagnosis: (1) History of chemotherapy Physical Therapy Order: Evaluate and Treat Home Health Nursing Order: Medical education Signs/symptoms of disease process Medication education-adverse effect Nursing assessment with vital signs I have seen patient Dion Chou on 12/01/16. My clinical findings support the need for the requested home health care services because: Ltd mobility - disease progression I certify that my clinical findings support that this patient is homebound because: Poor cardiac reserve Tabitha Jimenez MD Dec 01, 2016 14:55
--- NOTE | 2016-12-01 16:16 | RADRPT ---
EXAM DATE/TIME: 12/01/2016 00:00 [facility] COMPARISON: No previous studies available for comparison. INDICATIONS : Patient with hx of acute renal failure. Permcath no longer needed. MEDICAL HISTORY : 1. Acute renal failure 2. ALL 3. rheumatic fever SURGICAL HISTORY : 1. vas cath 2. permacath 3. Bone BX ENCOUNTER: Initial ACUITY: 1 month PAIN SCORE: 0/10 IMAGE SERIES: 0 ACCESS: Right PROCEDURE : 1. PermaCath removal. The risks, benefits and alternatives to the procedure were explained and verbal and written consent w as obtained. The site was prepped in sterile fashion. Full sterile technique was used, including ca p, mask, sterile gloves and gown and a large sterile sheet. Hand hygiene and 2% chlorhexidine and/or betadine/alcohol prep was utilized per protocol for cutaneous antisepsis. The skin and subcutaneous tissues were infiltrated with local anesthetic solution. The tract was anesthetized with 1% Lidocaine using. The Permcath was dissected from the subcutaneous tissues and easily removed in one piece. Manual pressure was applied to the venotomy site until hem ostasis was obtained. Sterile dressing was applied. The patient tolerated the procedure well and there were no complications. CONCLUSION: Uncomplicated Permcath removal. Serafin Saba MD on December 01, 2016 at 16:14 Board Certified Radiologist. This report was verified electronically.
== END 2016-12-01 14:37 | disposition home health service (06) | DRG 834 ==
LOC: HOCA 10-24 01:14
PROVIDERS: ADMIT Internal Medicine; ATTEND Internal Medicine
PROC: 07DR3ZX Extraction of Iliac Bone Marrow, Percutaneous Approach, Diagnostic (ICD-10-PCS; principal; 2016-10-24)
PROC: 02HV33Z Insertion of Infusion Device into Superior Vena Cava, Percutaneous Approach (ICD-10-PCS; 2016-10-24)
PROC: 30233R1 Transfusion of Nonautologous Platelets into Peripheral Vein, Percutaneous Approach (ICD-10-PCS; 2016-10-25)
PROC: 30233N1 Transfusion of Nonautologous Red Blood Cells into Peripheral Vein, Percutaneous Approach (ICD-10-PCS; 2016-10-25)
PROC: 3E0R305 Introduction of Other Antineoplastic into Spinal Canal, Percutaneous Approach (ICD-10-PCS; 2016-10-27)
PROC: 009U3ZX Drainage of Spinal Canal, Percutaneous Approach, Diagnostic (ICD-10-PCS; 2016-10-27)
PROC: 05HM33Z Insertion of Infusion Device into Right Internal Jugular Vein, Percutaneous Approach (ICD-10-PCS; 2016-10-30)
PROC: 5A1D60Z (ICD-10-PCS; 2016-10-31)
PROC: 02HV33Z Insertion of Infusion Device into Superior Vena Cava, Percutaneous Approach (ICD-10-PCS; 2016-11-18)
PROC: 0HB7XZX Excision of Abdomen Skin, External Approach, Diagnostic (ICD-10-PCS; 2016-11-26)
PROC: 02PY33Z Removal of Infusion Device from Great Vessel, Percutaneous Approach (ICD-10-PCS; 2016-12-01)
DX: C91.00 Acute lymphoblastic leukemia not having achieved remission (principal); J18.9 Pneumonia, unspecified organism; E88.3 Tumor lysis syndrome; D61.818 Other pancytopenia; J90 Pleural effusion, not elsewhere classified; D70.1 Agranulocytosis secondary to cancer chemotherapy; I48.0 Paroxysmal atrial fibrillation; B37.0 Candidal stomatitis; N17.9 Acute kidney failure, unspecified; B00.2 Herpesviral gingivostomatitis and pharyngotonsillitis; R50.81 Fever presenting with conditions classified elsewhere; I10 Essential (primary) hypertension; T45.1X5A Adverse effect of antineoplastic and immunosuppressive drugs, initial encounter; E83.51 Hypocalcemia; E83.39 Other disorders of phosphorus metabolism; R21 Rash and other nonspecific skin eruption; R19.7 Diarrhea, unspecified; R53.1 Weakness; L29.9 Pruritus, unspecified; R10.13 Epigastric pain; R19.5 Other fecal abnormalities; K21.9 Gastro-esophageal reflux disease without esophagitis; T38.0X5A Adverse effect of glucocorticoids and synthetic analogues, initial encounter; D72.829 Elevated white blood cell count, unspecified; E66.9 Obesity, unspecified; Z68.34 Body mass index [BMI] 34.0-34.9, adult; Z87.891 Personal history of nicotine dependence
CPT/HCPCS: 36430; 36556; 36558; 36569; 38221; 71010; 71020; 74176; 74177; 76705; 76775; 76937; 77001; 77003; 77012; 80048; 80053; 80069; 80074; 80076; 80202; 81001; 82150; 82272; 82945; 82948; 83615; 83690; 83735; 83880; 84100; 84155; 84157; 84550; 85007; 85014; 85018; 85025; 85027; 85097; 85610; 85730; 86644; 86645; 86695; 86696; 86850; 86900; 86901; 86920; 87040; 87086; 87186; 87205; 87328; 87329; 87493; 87506; 88112; 88184; 88185; 88237; 88264; 88280; 88305; 88311; 88312; 88313; 88377; 90935; 93306; 96374; 96375; 96450; 99152; 99153; C1750; C1751; C1752; C1769; C1830; C9113; J0610; J0692; J1100; J1170; J1442; J1580; J1642; J1644; J1940; J2250; J2405; J2783; J2930; J3010; J3370; J7030; J7040; J7050; J7070; J7512; J9000; J9070; J9209; J9250; J9310; J9370; P9016; P9035; P9037; P9040; Q0163; Q0164; Q0166; Q0169; Q9967

== ENCOUNTER 2016-12-29 06:38 | Inpatient (IN) | payer MEDICARE, BC ==
[~2016-12-29] VITALS: Ht 185.4 cm; Wt 121.3 kg
[~2016-12-29 06:38] MED LIST: ADJUSTABLE COMM1 MIS; ALLO100 PO; BEDSIDE COMMODE1 MI1; BENA25CA4 PO; CALC250 PO; CARD240C6 PO; GETGO ROLLING W1 MI1; GNP1OIN TOPICAL; LACT PO; MEGE40SU PO; METO25TA3 PO; OXYC1TAB63 PO; PANT20 PO; PRED5TAB PO; SUCR1S PO
[2016-12-29] MEDS ORDERED: ONDANSETRON HCL 4 MG/2 ML VIAL IVP PRN ×2 (08:00→11:30)
[2016-12-29] MEDS ORDERED: PROCHLORPERAZINE 25 MG SUPP RECTAL PRN ×2 (08:00→11:30)
[2016-12-29] MEDS ORDERED: BISACODYL 10 MG SUPP RECTAL PRN ×2 (08:00→11:45)
[2016-12-29] MEDS ORDERED: LACTULOSE SYRUP 20 GM/30 ML CUP PO PRN ×2 (08:00→11:45)
[2016-12-29] MEDS ORDERED: SENNOSIDES 8.6 MG TAB PO PRN ×2 (08:00→11:45)
[2016-12-29] MEDS ORDERED: NALOXONE HCL 0.4 MG/ML AMP IV PUSH PRN ×2 (08:00→11:45)
[2016-12-29] MEDS ORDERED: MAGNESIUM HYDROXIDE SUSP 30 ML CUP PO PRN ×2 (08:00→11:45)
[2016-12-29] MEDS ORDERED: METOCLOPRAMIDE HCL 10 MG/2 ML VIAL IV PUSH PRN (08:00)
[2016-12-29] MEDS ORDERED: SODIUM CHLORIDE 0.9% FLUSH 10 ML FLUSH IV FLUSH PRN (08:00)
--- NOTE | 2016-12-29 08:30 | MH ---
cc: KATHI DICKENS M.D.AYAD LARAFAR DATE OF ADMISSION: 12/29/2016 DATE OF 1945 [address] Kathi Dickens [place], [place] REASON FOR ADMISSION Inpatient hospitalization for high-dose systemic therapy (Hyper-CVAD) (Arm-B). 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 TREATMENT HISTORY TO DATE The patient is status post cycle #1 of Hyper-CVAD (arm-A) plus Rituxan and intrathecal chemotherapy injection with cytarabine which was delivered in mid-October of 2016. CHIEF COMPLAINT Mr. Chou reports a rash which is itchy and has caused quite a bit of skin flaking over his back, arms and essentially his entire torso. He also reports feeling weak. His appetite is poor. He tells me his legs are swollen. He also reports having epigastric pain and nausea. HISTORY OF PRESENT ILLNESS Ms. 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 He presented with unexplained pancytopenia and the diagnosis was established based on bone marrow biopsy findings. He had no evidence of lymphadenopathy on staging studies with CT chest, abdomen and pelvis. After receiving induction systemic therapy with Hyper-CVAD, he developed acute kidney failure secondary to tumor lysis syndrome and required hemodialysis. He became pancytopenic and required a prolonged hospitalization during which time he also had isolated fevers and required broad spectrum antibiotic coverage. The patient's hospital course was further complicated by a diffuse rash which erupted over his torso, face and arms and biopsies of field representative/health education skin lesion was obtained on November 25, 2016. Pathologic findings were consistent with vacuolar interface dermatitis; the likes of which can be seen in erythema multiforme graft versus host disease or other drug reactions. The patient comes in today for readmission for chemotherapy. He is no longer requiring hemodialysis and his kidney function is back to baseline. His blood counts have also recovered. PAST MEDICAL HISTORY 1. 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 2. Acute kidney failure (now recovered). 3. 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 4. Severe rash, currently present. 5. Protein calorie malnutrition. 6. Chemotherapy-related myelosuppression. 7. Atrial fibrillation. PAST SURGICAL HISTORY 1. Appendectomy. 2. Benign polyp removal from the throat. 3. Lumbar puncture with intrathecal chemotherapy injection. 4. Port placement. 5. Bone marrow biopsy and aspiration. FAMILY HISTORY Parents both of coronary artery disease. He is not aware of any oncologic diagnosis in the family. SOCIAL HISTORY The patient is . He lives at home alone. He has a rexisdp-op-lei and lprkmr-px-glc who live close by and check in on him. He has three adult children, all of whom live in [place]. Mr. Chou himself is from [place]. He previously worked for [employer] in [employer] and then worked 28 years for [employer]. He previously was a smoker but quit 40 years ago. He rarely drinks alcohol. ALLERGIES No known drug allergies. OUTPATIENT MEDICATIONS The patient tells me he only takes prednisone 40 mg once daily for management of his skin rash. REVIEW OF SYSTEMS A 13-point review of systems was obtained. Following are the pertinent positives and negatives: CONSTITUTIONAL: The patient reports fatigue, loss of appetite. He denies fevers, chills or night sweats. HEENT: Denies headaches, blurry vision, difficulty swallowing or mouth sores. He reports itchy rash on his face. RESPIRATORY: Reports exertional dyspnea. Denies cough or hemoptysis. Denies pleuritic chest pain. CARDIOVASCULAR: Denies angina-like chest pain, PND or orthopnea, palpitations. He does report lower extremity edema. GI: Reports acid reflus, nausea, loss of appetite. He denies hematochezia, melena, abdominal distention. UG: Denies dysuria, hematuria or urinary incontinence. He does report scrotal edema. LOWER EXTREMITIES: Reports bilateral pretibial edema. Denies calf tenderness. AIR FORCE PILOT: Denies focal sensorimotor deficits. SKIN: Reports rash with flaking of the skin. PHYSICAL EXAMINATION VITAL SIGNS: Temperature 98 degrees Fahrenheit, heart rate 60 beats per minute, blood pressure 133/87. O2 sats are 100% on room air. Height and weight are pending. GENERAL PHYSICAL APPEARANCE: Mr. Chou is an elderly male. He is tall, heavyset. He appears to be in no acute distress. He appears to have a diffuse rash over his arms, face and legs. HEENT: Had is atraumatic, normocephalic. Conjunctivae are pale, sclerae are anicteric. EOMI. PERRLA. Oral exam - no pharyngeal erythema. NECK EXAM: No palpable cervical or supraclavicular lymphadenopathy. RESPIRATORY EXAM: Good air movement bilaterally. No added breath sounds. CARDIOVASCULAR EXAM: Regular rate and rhythm. S1, S2, without any obvious murmurs, rubs or gallops. ABDOMINAL EXAM: Obese belly, soft and nontender, nondistended. No palpable organ enlargement. LOWER EXTREMITIES: Bilateral pretibial edema. No calf tenderness. AIR FORCE PILOT: No focal sensory or motor deficits. SKIN EXTREMITIES: He has an exfoliative rash noted over his arms, especially on his back and torso. LABORATORY FINDINGS Blood work is pending at this time. CBC, CMP have been ordered. ASSESSMENT Mr. 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 His disease is associated with very complex cytogenetics and unfortunately this predicts a poor outcome and high rates of relapse despite appropriate and aggressive treatment. He is status post induction remission therapy with Hyper-CVAD with Rituxan and intrathecal chemotherapy which was delivered in mid-October of 2016. 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 Luckily his renal function is back to baseline. He also developed fever, atrial fibrillation and a diffuse rash over the skin which persists. He comes in today for cycle #1 of consolidation therapy with Hyper-CVAD Arm-B which will consist of methotrexate and high-dose cyterabine. He has received outpatient Rituxan infusion last week at my [facility] office. RECOMMENDATIONS 1. B-cell acute lymphoblastic leukemia: Proceed with cycle #1 hyper-CVAD Arm-B. I will start him on high-dose methotrexate today and this will consist of the bolus dose followed by the 22-hour infusion. Following this he will receive cytarabine at a dose of 2 grams/meter2 every 12 hours for a total of 4 doses. The patient will be hydrated with D-5 water with sodium acetate at 100 cc/hour. 2. Skin rash: I will request a certified mortician to come in and see him. I am not certain what the etiology of the rash is. I am hopeful they can help us optimize management and to help identify the etiology. 3. Cardiac arrhythmia with history of A-fib. He will be put on a monitor. 4. I will also consult the medicine service to help us manage him inpatient given the complexities of his previous hospitalization. MD CARLOS Santoyo/MOOKIE /7:42 AM /7:55 AM
[2016-12-29 08:41] VITALS: BP 148/80; PULSE 76; RESP 20; TEMP 97.6; O2SAT 100
[2016-12-29] MEDS ORDERED: PRED20 PO (08:55)
[2016-12-29] MEDS ORDERED: SODIUM CHLORIDE 0.9% FLUSH 10 ML FLUSH IV FLUSH SCH (09:00)
[2016-12-29] MEDS ORDERED: DOCUSATE SODIUM 50 MG/SENNA 8.6 MG TAB PO SCH (09:00)
[2016-12-29 10:00] VITALS: PULSE 80
[2016-12-29] MEDS: predniSONE 20 MG TAB PO SCH (10:18)
[2016-12-29] MEDS: ENOXAPARIN SODIUM 40 MG/0.4 ML SYRINGE SQ SCH (10:18)
[2016-12-29] MEDS: PANTOPRAZOLE SOD 40 MG DELAYED RELEASE TAB PO SCH (10:18)
[2016-12-29] MEDS: DEXTROSE IV SCH ×4 (10:57→21:50)
[2016-12-29] MEDS: SODIUM ACETATE IV SCH ×4 (10:57→21:50)
[2016-12-29] MEDS ORDERED: predniSONE 20 MG TAB PO SCH (11:15)
--- NOTE | 2016-12-29 11:16 | PD.CONS ---
HPI Service [facility] Consult Requested By DR FRANCISCO JAVIER RICE Reason for Consult Medical management with history of acute kidney injury and atrial fibrillation Primary Care Physician Hallie Norris M.D. 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 Had a previous prolonged hospitalization had an issue with a diffuse rash that was on his torso, face, and arms had VACUOLAR interface dermatitis which can be seen in erythema multiforme [id number] disease or other drug reactions PATIENT HAD STOPPED HIS BETA KRYSTINA AND CARDIZEM WHICH WE WILL RESTART Review of Systems Constitutional: COMPLAINS OF: Fatigue, DENIES: Diaphoretic episodes, Fever, Weight gain, Weight loss, Chills Endocrine: DENIES: Heat/cold intolerance, Polydipsia, Polyuria, Polyphagia Eyes: DENIES: Blurred vision, Diplopia, Eye inflammation Ears, nose, mouth, throat: DENIES: Tinnitus, Hearing loss, Vertigo, Odynophagia Respiratory: DENIES: Apneas, Cough, Snoring, Wheezing Cardiovascular: DENIES: Chest pain, Palpitations, Syncope Gastrointestinal: DENIES: Abdominal pain, Black stools, Bloody stools Genitourinary: DENIES: Sexual dysfunction, Urinary frequency, Urinary incontinence Musculoskeletal: DENIES: Joint pain, Muscle aches, Stiffness, Joint Swelling Integumentary: COMPLAINS OF: Abnormal pigmentation, Rash, DENIES: Nail changes , Pruritus Hematologic/lymphatic: DENIES: Bruising, Lymphadenopathy Immunologic/allergic: DENIES: Eczema, Urticaria Neurologic: DENIES: Abnormal gait, Headache, Localized weakness, Paresthesias Psychiatric: DENIES: Anxiety, Confusion, Mood changes Past Family Social History Allergies: Coded Allergies: No Known Allergies (Unverified , 10/24/16) Past Medical History 1. B-cell ALL ([place] chromosome negative). 2. Acute kidney failure (now recovered). 3. 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 4. Severe rash, currently present. 5. Protein calorie malnutrition. 6. Chemotherapy-related myelosuppression. 7. Atrial fibrillation. Past Surgical History 1. Appendectomy. 2. Benign polyp removal from the throat. 3. Lumbar puncture with intrathecal chemotherapy injection. 4. Port placement. 5. Bone marrow biopsy and aspiration. Reported Medications Reported Meds & Active Scripts Active Protonix (Pantoprazole Sodium) 20 Mg Tab 20 Mg PO DAILY Prednisone 5 Mg Tab 5 Mg PO DAILY 30 mg po daily for three days then 20 mg po daily for three days then 10 mg po daily for three days then 5 mg po daily for three days then stop. Cardizem CD 24 HR (Diltiazem CD 24 HR) 240 Mg Caper 240 Mg PO DAILY 30 Days Acidophilus/l-Sporogenes (Lactobacillus Acidophilus) 35 Million Cell-25 Million Cell Tab 1 Tab PO TID Sucralfate Liq (Sucralfate) 1 Gram/10 Ml Maki 1 Gm PO ACHS Oyster Shell 250 mg + Vit D Tb (Calcium/Vitamin D) 250 Mg Calcium (625 Mg)-125 Unit Tablet 500 Mg PO Q12HR Oxycodone-Acetaminophen 5-325 mg Tab 1 Tab PO Q3H PRN Metoprolol Tartrate 25 Mg Tab 25 Mg PO Q12HR Megestrol Liq (Megestrol Acetate) 40 Mg/Ml Susp 400 Mg PO DAILY MDD 400 Benadryl Allergy (Diphenhydramine HCl) 25 Mg Cap 25 Mg PO Q4H PRN Adjustable Commode 3-in-1 (Device) 1 Mis Mis Ea .ROUTE DIRECTED Bedside Commode (Device) 1 Mis Mis Ea .ROUTE DIRECTED Walker Rolling/GetGo (Device) 1 Mis Mis Ea .ROUTE DIRECTED Zyloprim (Allopurinol) 100 Mg Tab 200 Mg PO DAILY Gnp Hydrocortisone Maximu (Hydrocortisone (Topical)) 1 % Oin 1 Applic TOPICAL BID 10 Days Reported Prednisone 20 Mg Tab 40 Mg PO DAILY Take 40 mg (2 tablets) daily for 5 days Active Ordered Medications Current Medications Sodium Chloride (NS Flush) 2 ml UNSCH PRN IV FLUSH FLUSH AFTER USING IV ACCESS ; Start 12/29/16 at 08:00 Sodium Chloride (NS Flush) 2 ml BID IV FLUSH Last administered on 12/29/16t 10 :20; Start 12/29/16 at 09:00 Ondansetron HCl (Zofran Inj) 4 mg Q6H PRN IVP NAUSEA OR VOMITING; Start at 08:00 Metoclopramide HCl (Reglan Inj) 5 mg Q6H PRN IV PUSH NAUSEA OR VOMITING; Start 12/29/16 at 08:00 Prochlorperazine (Compazine Supp) 25 mg Q12H PRN RECTAL NAUSEA OR VOMITING; Start 12/29/16 at 08:00 Zolpidem Tartrate (Ambien) 5 mg HS PRN PO INSOMNIA; Start 12/29/16 at 21:00 Enoxaparin Sodium (Lovenox Inj) 40 mg Q24H SQ Last administered on 12/29/16 10:18; Start 12/29/16 at 09:00 Naloxone HCl (Narcan Inj) 0.4 mg UNSCH PRN IV PUSH SEE LABEL COMMENTS; Start 12/29/16 at 08:00 Senna/Docusate Sodium (Cindy-Colace) 1 tab BID PO ; Start 12/29/16 at 09:00 Magnesium Hydroxide (Milk Of Magnesia Liq) 30 ml Q12H PRN PO Mild constipation ; Start 12/29/16 at 08:00 Sennosides (Senokot) 17.2 mg Q12H PRN PO Moderate constipation; Start at 08:00 Bisacodyl (Dulcolax Supp) 10 mg DAILY PRN RECTAL SEVERE CONSITIPATION; Start 12/29/16 at 08:00 Lactulose (Lactulose Liq) 30 ml DAILY PRN PO SEVERE CONSITIPATION; Start 12/29 at 08:00 Prednisone (Deltasone) 20 mg DAILY PO Last administered on 12/29/16 10:18; Start 12/29/16 at 09:00 Pantoprazole Sodium (Protonix) 40 mg DAILY PO Last administered on 12/29/16 10:18; Start 12/29/16 at 09:00 Sodium Acetate 100 meq/Dextrose 1,050 ml @ 100 mls/hr [id number] IV Last administered on 12/29/16 10:57; Start 12/29/16 at 13:00; Stop 01/01/17 at 12 :00 Prednisolone Acetate (Pred Forte 1% Opth Susp) 2 DROPS TO BOTH EYES QID EACH EYE ; Start 12/29/16 at 13:00; Stop 01/03/17 at 12:59 Sodium Bicarbonate (Sodium Bicarbonate) 1,300 mg QID PO ; Start 12/29/16 at 13: 00; Stop 01/02/17 at 12:59 Acetazolamide (Diamox) 250 mg BID PO ; Start 12/29/16 at 21:00 Granisetron HCl (Kytril) 1 mg Q12H PO ; Start 12/29/16 at 13:00; Stop at 01:01 Methylprednisolone Sodium Succinate (SoluMEDROL INJ) 50 mg Q12H IV PUSH ; Start 12/29/16 at 13:00; Stop 01/01/17 at 01:01 Methotrexate Sodium 440 mg/ Dextrose 267.6 ml @ 133.8 mls/ hr ONCE ONCE IV ; Start 12/29/16 at 14:00; Stop 12/29/16 at 15:59 Methotrexate Sodium 1760 mg/ Dextrose 1,070.4 ml @ 48.655 mls/hr ONCE ONCE IV ; Start 12/29/16 at 16:00; Stop 12/30/16 at 13:59 Cytarabine 4400 mg/Dextrose 250 ml @ 125 mls/hr Q12H IV ; Start 12/30/16 at 16 :00; Stop 01/01/17 at 05:59 Allopurinol (Zyloprim) 200 mg DAILY PO ; Start 12/30/16 at 09:00; Status UNV Calcium/Vitamin D (Oscal-D 250-125) 500 mg Q12HR PO ; Start 12/29/16 at 21:00; Status UNV Diltiazem HCl (Cardizem Cd) 240 mg DAILY PO ; Start 12/30/16 at 09:00; Status UNV Diphenhydramine HCl (Benadryl) 25 mg Q4H PRN PO SEE LABEL COMMENTS; Start at 11:00; Status UNV Lactobacillus Acidophilus (Lactinex) 1 tab TID PO ; Start 12/29/16 at 13:00; Status UNV Megestrol Acetate (Megace Liq) 400 mg DAILY PO ; Start 12/30/16 at 09:00; Status UNV Metoprolol Tartrate (Lopressor) 25 mg Q12HR PO ; Start 12/29/16 at 21:00; Status UNV Pantoprazole Sodium (Protonix) 20 mg DAILY PO ; Start 12/30/16 at 09:00; Status UNV Family History Both parents of coronary artery disease Social History He is . He lives at home alone. 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 SKIN: Possible skin rash, ecchymoses or lesions. Cool and dry. HEAD: Atraumatic. Normocephalic. No temporal or scalp tenderness. EYES: Pupils equal round and reactive. Extraocular motions intact. No scleral icterus. No injection or drainage. ENT: Nose without bleeding, purulent drainage or septal hematoma. Throat without erythema, tonsillar hypertrophy or exudate. Uvula midline. Airway patent. Tongue is midline NECK: Trachea midline. No JVD or lymphadenopathy. Supple, nontender, no meningeal signs. CARDIOVASCULAR: Regular rate and rhythm without murmurs, gallops, or rubs. S1 and S2 no S3 or S4 no heave or thrill or rub or gallop RESPIRATORY: Clear to auscultation. Breath sounds equal bilaterally. No wheezes , rales, or rhonchi. GASTROINTESTINAL: Abdomen soft, non-tender, nondistended. No hepato-splenomegaly , or palpable masses. No guarding. MUSCULOSKELETAL: Extremities without clubbing, cyanosis, or edema. No joint tenderness, effusion, or edema noted. No calf tenderness. Negative Homans sign bilaterally. NEUROLOGICAL: Awake and alert. Cranial nerves II through XII intact. Motor and sensory grossly within normal limits. Five out of 5 muscle strength in all muscle groups. Normal speech. Insight and judgment is good, mood and behaviors appropriate Laboratory Labs are pending Imaging No radiological reports today Assessment and Plan Problem List: (1) History of chemotherapy ICD Code: Z92.21 - Personal history of antineoplastic chemotherapy (2) Leukemia ICD Code: C95.90 - Leukemia, unspecified not having achieved remission (3) Rash and nonspecific skin eruption ICD Code: R21 - Rash and other nonspecific skin eruption (4) Tumor lysis syndrome ICD Code: E88.3 - Tumor lysis syndrome (5) Atrial fibrillation ICD Code: I48.91 - Unspecified atrial fibrillation Status: Acute (6) Acute kidney injury ICD Code: N17.9 - Acute kidney failure, unspecified Status: Acute (7) Hypertension ICD Code: I10 - Essential (primary) hypertension Status: Chronic Assessment and Plan B-cell acute lymphoblastic leukemia to have chemotherapy per Dr. Rice Chronic skin rash we do not have a dermatological service here-we will continue on his prednisone Atrial fibrillation by history we'll continue on his beta krystina and calcium channel krystina for rate control CHRONIC RENAL INSUFFICIENCY- WILL CHECK LABS NOW A.m. labs Labs today prior to chemotherapy Pain control as needed Code Status Full code Discussed Condition With Discussed with patient and RN Fidel De DO Dec 29, 2016 11:16
[2016-12-29] MEDS ORDERED: oxyCODONE/ACETAMINOPHEN 5 MG/325 MG TAB PO PRN (11:30)
[2016-12-29] MEDS ORDERED: ACETAMINOPHEN 325 MG TAB PO PRN (11:30)
[2016-12-29 11:31] LABS: BASOPHIL % 0.2 % (0.0-2.0); EOSINOPHIL # 0.2 TH/MM3 (0-0.4); EOSINOPHIL % 1.7 % (0.0-4.0); HEMATOCRIT 23.4 % (39.0-51.0); HEMO FLAGS DIFF FINAL; LYMPH % 16.8 % (9.0-44.0); LYMPHOCYTE # 1.9 TH/MM3 (1.0-4.8); MEAN CELL VOLUME 97.1 FL (80.0-100.0); MEAN CORPUSCULAR HEMOGLOBIN 33.3 PG (27.0-34.0); MEAN CORPUSCULAR HGB CONC 34.3 % (32.0-36.0); MONO % 9.5 % (0.0-8.0); NEUT % 71.8 % (16.0-70.0); PLATELET COUNT 201 TH/MM3 (150-450); RED BLOOD COUNT 2.41 MIL/MM3 (4.50-5.90); WHITE BLOOD COUNT 11.2 TH/MM3 (4.0-11.0)
[2016-12-29 11:42] LABS: ANION GAP 12 MEQ/L (5-15); AST (GOT) 12 U/L (15-37); BLOOD UREA NITROGEN 21 MG/DL (7-18); CHLORIDE 106 MEQ/L (98-107); GLOMERULAR FILTRATION RATE 77 ML/MIN (>89); MAGNESIUM 1.6 MG/DL (1.5-2.5); POTASSIUM 3.5 MEQ/L (3.5-5.1); SODIUM (NA) 139 MEQ/L (136-145)
[2016-12-29 11:43] LABS: ALT (GPT) 29 U/L (12-78)
[2016-12-29 11:51] LABS: ALKALINE PHOSPHATASE 67 U/L (45-117); FREE T4 0.92 NG/DL (0.76-1.46); TOTAL BILIRUBIN ADULT 0.4 MG/DL (0.2-1.0)
[2016-12-29 12:00] VITALS: BP 155/79; PULSE 79; RESP 20; TEMP 98.8; O2SAT 100
[2016-12-29] MEDS: HYDROCORTISONE 1% OINT 30 GM TUBE TOPICAL SCH ×2 (13:00→20:46)
[2016-12-29] MEDS: SODIUM BICARBONATE 650 MG TAB PO SCH ×3 (13:53→20:45)
[2016-12-29] MEDS: LACTOBACILLUS ACIDOPHILUS TAB PO SCH ×2 (13:53→18:19)
[2016-12-29] MEDS: GRANISETRON HCL 1 MG TAB PO SCH (13:53)
[2016-12-29] MEDS: methylPREDNISolone SOD SUCC 125 MG/2 ML VIAL IV PUSH SCH (13:53)
[2016-12-29] MEDS: prednisoLONE ACETATE 1% OPHT SUSP 5 ML BTL EACH EYE SCH ×3 (13:59→20:44)
[2016-12-29] MEDS ORDERED: METHOTREXATE IV ONE ×4 (14:00→16:00)
[2016-12-29] MEDS ORDERED: DEXTROSE 5% IV ONE ×4 (14:00→16:00)
[2016-12-29] MEDS ORDERED: WATER IV ONE ×2 (14:00)
[2016-12-29 15:51] LABS: HEMOGLOBIN A1a 1.5 %; HEMOGLOBIN A1b 2.4 %; HEMOGLOBIN Ao 81.6 %; HEMOGLOBIN LA1C 2.5 %; HEMOGLOBIN P3 6.8 %
[2016-12-29] MEDS ORDERED: WATE IV ONE ×2 (16:00)
[2016-12-29 16:30] VITALS: BP 160/81; PULSE 80; RESP 18; TEMP 98.6; O2SAT 99
[2016-12-29 20:25] VITALS: BP 157/73; PULSE 70; RESP 18; TEMP 98.5; O2SAT 100
[2016-12-29] MEDS: DOCUSATE SODIUM 50 MG/SENNA 8.6 MG TAB PO SCH (20:46)
[2016-12-29] MEDS: METOPROLOL TARTRATE 25 MG TAB PO SCH (20:46)
[2016-12-29] MEDS: CALCIUM/VITAMIN D 250 MG/125 U TAB PO SCH (20:46)
[2016-12-29] MEDS ORDERED: ZOLPIDEM TARTRATE 5 MG TAB PO PRN (21:00)
[2016-12-29] MEDS: acetaZOLAMIDE 250 MG TAB PO SCH (21:01)
[2016-12-29] MEDS: SODIUM CHLORIDE 0.9% FLUSH 10 ML FLUSH IV FLUSH SCH (21:03)
[2016-12-29 21:30] VITALS: PULSE 65
[2016-12-30] VITALS (11 sets, daily range): BP systolic 112–149; BP diastolic 56–75; PULSE 59–92; RESP 16–20; TEMP 98.2–100; O2SAT 97–100
[2016-12-30] MEDS: methylPREDNISolone SOD SUCC 125 MG/2 ML VIAL IV PUSH SCH (01:00)
[2016-12-30] MEDS: GRANISETRON HCL 1 MG TAB PO SCH (01:00)
[2016-12-30 05:50] LABS: AUTOMATED NEUTROPHIL # 8.2 TH/MM3 (1.8-7.7); BASOPHIL % 0.1 % (0.0-2.0); EOSINOPHIL % 0.2 % (0.0-4.0); LYMPHOCYTE # 1.2 TH/MM3 (1.0-4.8); MEAN CELL VOLUME 96.5 FL (80.0-100.0); MEAN CORPUSCULAR HEMOGLOBIN 32.5 PG (27.0-34.0); MEAN CORPUSCULAR HGB CONC 33.7 % (32.0-36.0); MONO % 10.4 % (0.0-8.0); NEUT % 78.3 % (16.0-70.0); PLATELET COUNT 175 TH/MM3 (150-450); RED BLOOD COUNT 2.14 MIL/MM3 (4.50-5.90); RED CELL DISTRIBUTION WIDTH 21.1 % (11.6-17.2); WHITE BLOOD COUNT 10.5 TH/MM3 (4.0-11.0)
[2016-12-30 06:05] LABS: HEMO FLAGS DIFF FINAL
[2016-12-30 06:09] LABS: HEMATOCRIT 20.7 % (39.0-51.0)
[2016-12-30 06:13] LABS: ANION GAP 10 MEQ/L (5-15); AST (GOT) 7 U/L (15-37); BLOOD UREA NITROGEN 21 MG/DL (7-18); CHLORIDE 102 MEQ/L (98-107); GLOMERULAR FILTRATION RATE 70 ML/MIN (>89); MAGNESIUM 1.7 MG/DL (1.5-2.5); POTASSIUM 3.7 MEQ/L (3.5-5.1); SODIUM (NA) 138 MEQ/L (136-145)
[2016-12-30 06:15] LABS: ALT (GPT) 27 U/L (12-78)
[2016-12-30 06:16] LABS: ALKALINE PHOSPHATASE 54 U/L (45-117); TOTAL BILIRUBIN ADULT 0.4 MG/DL (0.2-1.0)
--- NOTE | 2016-12-30 07:50 | PD.ONC.PN ---
Subjective Subjective Remarks Patient seen and examined, he denies acute complaints this morning. He denies fevers, chills or night sweats, nausea vomiting or diarrhea. He reports having had some blood from the tip of the penis last evening, this is self-limited and has not recurred since. He denies any pain at that area. Objective Data Date Time Temp Pulse Resp B/P (MAP) Pulse Ox O2 Delivery O2 Flow Rate FiO2 12/30/16 04:55 98.7 62 16 128/62 (84) 100 12/30/16 04:19 59 12/30/16 01:22 66 12/30/16 00:55 99.0 70 16 142/71 (94) 97 12/29/16 21:30 65 12/29/16 20:25 98.5 70 18 157/73 (101) 100 12/29/16 16:30 98.6 80 18 160/81 (107) 99 12/29/16 12:00 98.8 79 20 155/79 (104) 100 12/29/16 10:00 80 12/29/16 08:41 97.6 76 20 148/80 (102) 100 12/30/16 12/30/16 12/30/16 07:00 15:00 23:00 Intake Total 1170 ml Output Total 1700 ml Balance -530 ml Result Diagram: 12/30/16 0530 12/30/16 0530 Laboratory Results Laboratory Tests Test 12/29/16 10:00 12/29/16 10:10 12/29/16 16:40 12/30/16 05:30 Urine pH 5.5 6.0 White Blood Count 11.2 TH/MM3 10.5 TH/MM3 Red Blood Count 2.41 MIL/MM3 2.14 MIL/MM3 Hemoglobin 8.0 GM/DL 7.0 GM/DL Hematocrit 23.4 % 20.7 % Mean Corpuscular Volume 97.1 FL 96.5 FL Mean Corpuscular Hemoglobin 33.3 PG 32.5 PG Mean Corpuscular Hemoglobin Concent 34.3 % 33.7 % Red Cell Distribution Width 21.0 % 21.1 % Platelet Count 201 TH/MM3 175 TH/MM3 Mean Platelet Volume 7.4 FL 6.7 FL Neutrophils (%) (Auto) 71.8 % 78.3 % Lymphocytes (%) (Auto) 16.8 % 11.0 % Monocytes (%) (Auto) 9.5 % 10.4 % Eosinophils (%) (Auto) 1.7 % 0.2 % Basophils (%) (Auto) 0.2 % 0.1 % Neutrophils # (Auto) 8.0 TH/MM3 8.2 TH/MM3 Lymphocytes # (Auto) 1.9 TH/MM3 1.2 TH/MM3 Monocytes # (Auto) 1.1 TH/MM3 1.1 TH/MM3 Eosinophils # (Auto) 0.2 TH/MM3 0.0 TH/MM3 Basophils # (Auto) 0.0 TH/MM3 0.0 TH/MM3 CBC Comment DIFF FINAL DIFF FINAL Differential Comment Blood Urea Nitrogen 21 MG/DL 21 MG/DL Creatinine 0.97 MG/DL 1.05 MG/DL Random Glucose 150 MG/DL 147 MG/DL Total Protein 6.3 GM/DL 5.6 GM/DL Albumin 3.3 GM/DL 2.9 GM/DL Calcium Level 9.3 MG/DL 8.6 MG/DL Phosphorus Level 3.8 MG/DL 4.5 MG/DL Magnesium Level 1.6 MG/DL 1.7 MG/DL Alkaline Phosphatase 67 U/L 54 U/L Aspartate Amino Transf (AST/SGOT) 12 U/L 7 U/L Alanine Aminotransferase (ALT/SGPT) 29 U/L 27 U/L Total Bilirubin 0.4 MG/DL 0.4 MG/DL Sodium Level 139 MEQ/L 138 MEQ/L Potassium Level 3.5 MEQ/L 3.7 MEQ/L Chloride Level 106 MEQ/L 102 MEQ/L Carbon Dioxide Level 21.0 MEQ/L 26.0 MEQ/L Anion Gap 12 MEQ/L 10 MEQ/L Estimat Glomerular Filtration Rate 77 ML/MIN 70 ML/MIN Hemoglobin A1c 6.3 % Free Thyroxine 0.92 NG/DL Thyroid Stimulating Hormone 3rd Gen 5.960 uIU/ML Test 12/30/16 06:40 Urine pH 8.5 Administered Medications Medications (Trade) Dose Ordered Sig/Daniel Route PRN Reason Start Time Stop Time Status Last Admin Dose Admin Enoxaparin Sodium (Lovenox Inj) 40 mg Q24H SQ 12/29/16 09:00 12/29/16 10:18 Prednisone (Deltasone) 20 mg DAILY PO 12/29/16 09:00 12/29/16 10:18 Pantoprazole Sodium (Protonix) 40 mg DAILY PO 12/29/16 09:00 12/29/16 10:18 Sodium Acetate 100 meq/Dextrose 1,050 ml @ 100 mls/hr [id number] IV 12/29/16 13:00 01/01/17 12:00 12/29/16 21:50 Prednisolone Acetate (Pred Forte 1% Opth Susp) 2 DROPS TO BOTH EYES QID EACH EYE 12/29/16 13:00 01/03/17 12:59 12/29/16 20:44 Sodium Bicarbonate (Sodium Bicarbonate) 1,300 mg QID PO 12/29/16 13:00 01/02/17 12:59 12/29/16 20:45 Acetazolamide (Diamox) 250 mg BID PO 12/29/16 21:00 12/29/16 21:01 Granisetron HCl (Kytril) 1 mg Q12H PO 12/29/16 13:00 01/01/17 01:01 12/29/16 13:53 Methylprednisolone Sodium Succinate (SoluMEDROL INJ) 50 mg Q12H IV PUSH 12/29/16 13:00 01/01/17 01:01 12/29/16 13:53 Calcium/Vitamin D (Oscal-D 250-125) 500 mg Q12HR PO 12/29/16 21:00 12/29/16 20:46 Lactobacillus Acidophilus (Lactinex) 1 tab TID PO 12/29/16 13:00 12/29/16 18:19 Metoprolol Tartrate (Lopressor) 25 mg Q12HR PO 12/29/16 21:00 12/29/16 20:46 Hydrocortisone (Nutracort 1% Oint) 1 applic BID TOPICAL 12/29/16 13:00 12/29/16 20:46 Sodium Chloride (NS Flush) 2 ml BID IV FLUSH 12/29/16 21:00 12/29/16 21:03 Senna/Docusate Sodium (Cindy-Colace) 1 tab BID PO 12/29/16 21:00 12/29/16 20:46 Objective Remarks GENERAL PHYSICAL APPEARANCE: Mr. Chou is an elderly male. He is tall, heavyset. He appears to be in no acute distress. He appears to have a diffuse rash over his arms, face and legs. HEENT: Had is atraumatic, normocephalic. Conjunctivae are pale, sclerae are anicteric. EOMI. PERRLA. Oral exam - no pharyngeal erythema. NECK EXAM: No palpable cervical or supraclavicular lymphadenopathy. RESPIRATORY EXAM: Good air movement bilaterally. No added breath sounds. CARDIOVASCULAR EXAM: Regular rate and rhythm. S1, S2, without any obvious murmurs, rubs or gallops. ABDOMINAL EXAM: Obese belly, soft and nontender, nondistended. No palpable organ enlargement. LOWER EXTREMITIES: Bilateral pretibial edema. No calf tenderness. QUALITY ASSURANCE TECH: No focal sensory or motor deficits. SKIN EXTREMITIES: He has an exfoliative rash noted over his arms, especially on his back and torso. Assessment/Plan Assessment Mr. Chou is a 71-year-old male with a diagnosis of B-cell acute lymphoblastic leukemia ([place] chromosome negative). His disease is associated with very complex cytogenetics and unfortunately this predicts a poor outcome and high rates of relapse despite appropriate and aggressive treatment. He is status post induction remission therapy with Hyper-CVAD with Rituxan and intrathecal chemotherapy which was delivered in mid-October of 2016. 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 Luckily his renal function is back to baseline. He also developed fever, atrial fibrillation and a diffuse rash over the skin which persists. He comes in today for cycle #1 of consolidation therapy with Hyper-CVAD Arm-B which will consist of methotrexate and high-dose cyterabine. He has received outpatient Rituxan infusion last week at my [facility] office. Plan 1. B-cell acute lymphoblastic leukemia ([place] chromosome negative): Plan to start hyper-CVAD arm B later today now that his urine has been appropriately alkalinized. Bolus dose and methotrexate infusion to be administered on day 1. Cytarabine 2 g per metered squared to 12 hours 4 doses to be delivered on days 2 and 3. Following that the patient will be initiated on Neupogen growth factor support. I will be able to coordinate intrathecal cytarabine injection as an outpatient. 2. Skin rash: Seems to be greatly improved with corticosteroids. 3. For hypertension and A. fib he has been resumed on beta blockers. 4. Isolated episode of blood expression from the tip of the penis: Isolated event, no rashes, ulcers or lesions noted on clinical exam today. 5. Anemia: Hemoglobin 7 g/dL noted, he is asymptomatic. I will monitor and transfuse 1 unit packed red blood cells in between chemotherapy infusion. Sukhwinder Rice MD Dec 30, 2016 07:50
[2016-12-30] MEDS: DOCUSATE SODIUM 50 MG/SENNA 8.6 MG TAB PO SCH ×2 (08:24→22:19)
[2016-12-30] MEDS: MEGESTROL ACETATE SUSP 400 MG/10 ML CUP PO SCH (08:24)
[2016-12-30] MEDS: HYDROCORTISONE 1% OINT 30 GM TUBE TOPICAL SCH ×2 (08:25→21:00)
[2016-12-30] MEDS: prednisoLONE ACETATE 1% OPHT SUSP 5 ML BTL EACH EYE SCH ×4 (08:42→22:20)
[2016-12-30] MEDS: SODIUM ACETATE IV SCH ×4 (08:43→21:01)
[2016-12-30] MEDS: DEXTROSE IV SCH ×4 (08:43→21:01)
[2016-12-30] MEDS: DILTIAZEM-CD 240 MG CAP ER PO SCH (08:46)
[2016-12-30] MEDS: PANTOPRAZOLE SOD 40 MG DELAYED RELEASE TAB PO SCH (08:46)
[2016-12-30] MEDS: LACTOBACILLUS ACIDOPHILUS TAB PO SCH ×3 (08:47→17:26)
[2016-12-30] MEDS: ENOXAPARIN SODIUM 40 MG/0.4 ML SYRINGE SQ SCH (08:47)
[2016-12-30] MEDS: SODIUM BICARBONATE 650 MG TAB PO SCH ×4 (08:47→22:18)
[2016-12-30] MEDS: ALLOPURINOL 100 MG TAB PO SCH (08:47)
[2016-12-30] MEDS: acetaZOLAMIDE 250 MG TAB PO SCH ×2 (08:47→22:18)
[2016-12-30] MEDS: METOPROLOL TARTRATE 25 MG TAB PO SCH ×2 (08:47→22:19)
[2016-12-30] MEDS: predniSONE 20 MG TAB PO SCH (08:48)
[2016-12-30] MEDS: CALCIUM/VITAMIN D 250 MG/125 U TAB PO SCH ×2 (08:48→22:19)
[2016-12-30] MEDS: SODIUM CHLORIDE 0.9% FLUSH 10 ML FLUSH IV FLUSH SCH ×2 (08:48→22:22)
[2016-12-30] MEDS ORDERED: GRANISETRON HCL 1 MG TAB PO SCH (09:00)
[2016-12-30] MEDS ORDERED: PANTOPRAZOLE SOD 20 MG DELAYED RELEASE TAB PO SCH (09:00)
[2016-12-30] MEDS ORDERED: methylPREDNISolone SOD SUCC 125 MG/2 ML VIAL IV PUSH SCH (09:00)
[2016-12-30] MEDS: ACETAMINOPHEN 325 MG TAB PO PRN (09:08)
--- NOTE | 2016-12-30 11:06 | HHI.PR ---
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 Had a previous prolonged hospitalization had an issue with a diffuse rash that was on his torso, face, and arms had VACUOLAR interface dermatitis which can be seen in erythema multiforme [id number] disease or other drug reactions PATIENT HAD STOPPED HIS BETA TAN AND CARDIZEM WHICH WE WILL RESTART 12-30 having chemo today had blood from penis today NO SOB NO CHEST PAIN TO HAVE TRANSFUSION LATER TODAY DW RN AND PT Objective Vitals Vital Signs Date Time Temp Pulse Resp B/P (MAP) Pulse Ox O2 Delivery O2 Flow Rate FiO2 12/30/16 08:58 100.0 12/30/16 08:14 98.2 92 20 149/75 (99) 98 12/30/16 04:55 98.7 62 16 128/62 (84) 100 12/30/16 04:19 59 12/30/16 01:22 66 12/30/16 00:55 99.0 70 16 142/71 (94) 97 12/29/16 21:30 65 12/29/16 20:25 98.5 70 18 157/73 (101) 100 12/29/16 16:30 98.6 80 18 160/81 (107) 99 12/29/16 12:00 98.8 79 20 155/79 (104) 100 I/O 12/29/16 12/29/16 12/29/16 12/30/16 12/30/16 12/30/16 07:00 15:00 23:00 07:00 15:00 23:00 Intake Total 2194 ml 1170 ml Output Total 1950 ml 1700 ml Balance 244 ml -530 ml Intake Oral 1100 ml 470 ml IV Total 1094 ml 700 ml Output Urine Total 1950 ml 1700 ml Result Diagram: 12/30/16 0530 12/30/16 0530 Other Results Laboratory Tests Test 12/29/16 10:00 12/29/16 10:10 12/29/16 16:40 12/30/16 05:30 Urine pH 5.5 6.0 White Blood Count 11.2 TH/MM3 10.5 TH/MM3 Red Blood Count 2.41 MIL/MM3 2.14 MIL/MM3 Hemoglobin 8.0 GM/DL 7.0 GM/DL Hematocrit 23.4 % 20.7 % Mean Corpuscular Volume 97.1 FL 96.5 FL Mean Corpuscular Hemoglobin 33.3 PG 32.5 PG Mean Corpuscular Hemoglobin Concent 34.3 % 33.7 % Red Cell Distribution Width 21.0 % 21.1 % Platelet Count 201 TH/MM3 175 TH/MM3 Mean Platelet Volume 7.4 FL 6.7 FL Neutrophils (%) (Auto) 71.8 % 78.3 % Lymphocytes (%) (Auto) 16.8 % 11.0 % Monocytes (%) (Auto) 9.5 % 10.4 % Eosinophils (%) (Auto) 1.7 % 0.2 % Basophils (%) (Auto) 0.2 % 0.1 % Neutrophils # (Auto) 8.0 TH/MM3 8.2 TH/MM3 Lymphocytes # (Auto) 1.9 TH/MM3 1.2 TH/MM3 Monocytes # (Auto) 1.1 TH/MM3 1.1 TH/MM3 Eosinophils # (Auto) 0.2 TH/MM3 0.0 TH/MM3 Basophils # (Auto) 0.0 TH/MM3 0.0 TH/MM3 CBC Comment DIFF FINAL DIFF FINAL Differential Comment Blood Urea Nitrogen 21 MG/DL 21 MG/DL Creatinine 0.97 MG/DL 1.05 MG/DL Random Glucose 150 MG/DL 147 MG/DL Total Protein 6.3 GM/DL 5.6 GM/DL Albumin 3.3 GM/DL 2.9 GM/DL Calcium Level 9.3 MG/DL 8.6 MG/DL Phosphorus Level 3.8 MG/DL 4.5 MG/DL Magnesium Level 1.6 MG/DL 1.7 MG/DL Alkaline Phosphatase 67 U/L 54 U/L Aspartate Amino Transf (AST/SGOT) 12 U/L 7 U/L Alanine Aminotransferase (ALT/SGPT) 29 U/L 27 U/L Total Bilirubin 0.4 MG/DL 0.4 MG/DL Sodium Level 139 MEQ/L 138 MEQ/L Potassium Level 3.5 MEQ/L 3.7 MEQ/L Chloride Level 106 MEQ/L 102 MEQ/L Carbon Dioxide Level 21.0 MEQ/L 26.0 MEQ/L Anion Gap 12 MEQ/L 10 MEQ/L Estimat Glomerular Filtration Rate 77 ML/MIN 70 ML/MIN Hemoglobin A1c 6.3 % Free Thyroxine 0.92 NG/DL Thyroid Stimulating Hormone 3rd Gen 5.960 uIU/ML Test 12/30/16 06:40 Urine pH 8.5 Objective Remarks GENERAL: This is a well-nourished, well-developed patient, in no apparent distress. SKIN: Possible skin rash, ecchymoses or lesions. Cool and dry. HEAD: Atraumatic. Normocephalic. No temporal or scalp tenderness. EYES: Pupils equal round and reactive. Extraocular motions intact. No scleral icterus. No injection or drainage. ENT: Nose without bleeding, purulent drainage or septal hematoma. Throat without erythema, tonsillar hypertrophy or exudate. Uvula midline. Airway patent. Tongue is midline NECK: Trachea midline. No JVD or lymphadenopathy. Supple, nontender, no meningeal signs. CARDIOVASCULAR: Regular rate and rhythm without murmurs, gallops, or rubs. S1 and S2 no S3 or S4 no heave or thrill or rub or gallop RESPIRATORY: Clear to auscultation. Breath sounds equal bilaterally. No wheezes , rales, or rhonchi. GASTROINTESTINAL: Abdomen soft, non-tender, nondistended. No hepato-splenomegaly , or palpable masses. No guarding. MUSCULOSKELETAL: Extremities without clubbing, cyanosis, or edema. No joint tenderness, effusion, or edema noted. No calf tenderness. Negative Homans sign bilaterally. NEUROLOGICAL: Awake and alert. Cranial nerves II through XII intact. Motor and sensory grossly within normal limits. Five out of 5 muscle strength in all muscle groups. Normal speech. Insight and judgment is good, mood and behaviors appropriate Medications and IVs Current Medications Sodium Chloride (NS Flush) 2 ml UNSCH PRN IV FLUSH FLUSH AFTER USING IV ACCESS ; Start 12/29/16 at 08:00; Status Cancel Sodium Chloride (NS Flush) 2 ml BID IV FLUSH Last administered on 12/29/16t 10 :20; Start 12/29/16 at 09:00; Stop 12/29/16 at 12:20; Status DC Ondansetron HCl (Zofran Inj) 4 mg Q6H PRN IVP NAUSEA OR VOMITING; Start at 08:00; Status Cancel Metoclopramide HCl (Reglan Inj) 5 mg Q6H PRN IV PUSH NAUSEA OR VOMITING; Start 12/29/16 at 08:00 Prochlorperazine (Compazine Supp) 25 mg Q12H PRN RECTAL NAUSEA OR VOMITING; Start 12/29/16 at 08:00; Status Cancel Zolpidem Tartrate (Ambien) 5 mg HS PRN PO INSOMNIA; Start 12/29/16 at 21:00 Enoxaparin Sodium (Lovenox Inj) 40 mg Q24H SQ Last administered on 12/30/16 08:47; Start 12/29/16 at 09:00 Naloxone HCl (Narcan Inj) 0.4 mg UNSCH PRN IV PUSH SEE LABEL COMMENTS; Start 12/29/16 at 08:00; Status Cancel Senna/Docusate Sodium (Cindy-Colace) 1 tab BID PO ; Start 12/29/16 at 09:00; Stop 12/29/16 at 11:49; Status DC Magnesium Hydroxide (Milk Of Magnesia Liq) 30 ml Q12H PRN PO Mild constipation ; Start 12/29/16 at 08:00; Status Cancel Sennosides (Senokot) 17.2 mg Q12H PRN PO Moderate constipation; Start at 08:00; Status Cancel Bisacodyl (Dulcolax Supp) 10 mg DAILY PRN RECTAL SEVERE CONSITIPATION; Start 12/29/16 at 08:00; Status Cancel Lactulose (Lactulose Liq) 30 ml DAILY PRN PO SEVERE CONSITIPATION; Start 12/29 at 08:00; Status Cancel Prednisone (Deltasone) 20 mg DAILY PO Last administered on 12/30/16 08:48; Start 12/29/16 at 09:00 Pantoprazole Sodium (Protonix) 40 mg DAILY PO Last administered on 12/30/16 08:46; Start 12/29/16 at 09:00 Sodium Acetate 100 meq/Dextrose 1,050 ml @ 100 mls/hr [id number] IV Last administered on 12/30/16 08:43; Start 12/29/16 at 13:00; Stop 01/01/17 at 12 :00 Prednisolone Acetate (Pred Forte 1% Opth Susp) 2 DROPS TO BOTH EYES QID EACH EYE Last administered on 12/30/16 08:42; Start 12/29/16 at 13:00; Stop at 12:59 Sodium Bicarbonate (Sodium Bicarbonate) 1,300 mg QID PO Last administered on 08:47; Start 12/29/16 at 13:00; Stop 01/02/17 at 12:59 Acetazolamide (Diamox) 250 mg BID PO Last administered on 12/30/16 08:47; Start 12/29/16 at 21:00 Granisetron HCl (Kytril) 1 mg Q12H PO Last administered on 12/29/16 13:53; Start 12/29/16 at 13:00; Stop 12/30/16 at 08:38; Status DC Methylprednisolone Sodium Succinate (SoluMEDROL INJ) 50 mg Q12H IV PUSH Last administered on 12/29/16 13:53; Start 12/29/16 at 13:00; Stop 12/30/16 at 08 :39; Status DC Methotrexate Sodium 440 mg/ Dextrose 267.6 ml @ 133.8 mls/ hr ONCE ONCE IV Last administered on 12/30/16 09:58; Start 12/29/16 at 14:00; Stop 12/29/16 at 15:59; Status DC Methotrexate Sodium 1760 mg/ Dextrose 1,070.4 ml @ 48.655 mls/hr ONCE ONCE IV ; Start 12/29/16 at 16:00; Stop 12/30/16 at 13:59 Cytarabine 4400 mg/Dextrose 250 ml @ 125 mls/hr Q12H IV ; Start 12/30/16 at 16 :00; Stop 01/01/17 at 05:59 Allopurinol (Zyloprim) 200 mg DAILY PO Last administered on 12/30/16 08:47; Start 12/30/16 at 09:00 Calcium/Vitamin D (Oscal-D 250-125) 500 mg Q12HR PO Last administered on 08:48; Start 12/29/16 at 21:00 Diltiazem HCl (Cardizem Cd) 240 mg DAILY PO Last administered on 12/30/16 08: 46; Start 12/30/16 at 09:00 Diphenhydramine HCl (Benadryl) 25 mg Q4H PRN PO SEE LABEL COMMENTS; Start at 11:00 Lactobacillus Acidophilus (Lactinex) 1 tab TID PO Last administered on 08:47; Start 12/29/16 at 13:00 Megestrol Acetate (Megace Liq) 400 mg DAILY PO ; Start 12/30/16 at 09:00 Metoprolol Tartrate (Lopressor) 25 mg Q12HR PO Last administered on 12/30/16 08:47; Start 12/29/16 at 21:00 Pantoprazole Sodium (Protonix) 20 mg DAILY PO ; Start 12/30/16 at 09:00; Stop 12/30/16 at 09:00; Status DC Hydrocortisone (Nutracort 1% Oint) 1 applic BID TOPICAL Last administered on 20:46; Start 12/29/16 at 13:00 Prednisone (Deltasone) 40 mg DAILY PO ; Start 12/29/16 at 11:15; Status UNV Sodium Chloride (NS Flush) 2 ml UNSCH PRN IV FLUSH FLUSH AFTER USING IV ACCESS ; Start 12/29/16 at 12:00 Sodium Chloride (NS Flush) 2 ml BID IV FLUSH Last administered on 12/29/16 21 :03; Start 12/29/16 at 21:00 Acetaminophen (Tylenol) 650 mg Q4H PRN PO TEMP > 100.4 Last administered on 09:08; Start 12/29/16 at 11:30 Ondansetron HCl (Zofran Inj) 4 mg Q6H PRN IVP NAUSEA OR VOMITING; Start at 11:30 Prochlorperazine (Compazine Supp) 25 mg Q12H PRN RECTAL NAUSEA OR VOMITING; Start 12/29/16 at 11:30 Acetaminophen (Tylenol) 650 mg Q6H PRN PO PAIN SCALE 1 TO 2; Start 12/29/16 at 11:30 Oxycodone/ Acetaminophen (Percocet 5-325 Mg) 1 tab Q6H PRN PO PAIN SCALE 3 TO 5; Start 12/29/16 at 11:30 Oxycodone/ Acetaminophen (Percocet 10-325 Mg) 1 tab Q6H PRN PO PAIN SCALE 6 TO 10; Start 12/29/16 at 11:30 Morphine Sulfate (Morphine Inj) 2 mg Q3H PRN IV PUSH Pain 3-5; if unable to take PO; Start 12/29/16 at 11:30 Morphine Sulfate (Morphine Inj) 4 mg Q3H PRN IV PUSH Pain 6-10;if unable to take PO; Start 12/29/16 at 11:30 Naloxone HCl (Narcan Inj) 0.4 mg UNSCH PRN IV PUSH SEE LABEL COMMENTS; Start 12/29/16 at 11:45 Senna/Docusate Sodium (Cindy-Colace) 1 tab BID PO Last administered on 20:46; Start 12/29/16 at 21:00 Magnesium Hydroxide (Milk Of Magnesia Liq) 30 ml Q12H PRN PO Mild constipation ; Start 12/29/16 at 11:45 Sennosides (Senokot) 17.2 mg Q12H PRN PO Moderate constipation; Start at 11:45 Bisacodyl (Dulcolax Supp) 10 mg DAILY PRN RECTAL SEVERE CONSITIPATION; Start 12/29/16 at 11:45 Lactulose (Lactulose Liq) 30 ml DAILY PRN PO SEVERE CONSITIPATION; Start 12/29 at 11:45 Leucovorin Calcium 50 mg/ Sodium Chloride 50 ml @ 200 mls/hr ONCE ONCE IV ; Start 12/31/16 at 02:00; Stop 12/31/16 at 02:14 Leucovorin Calcium 25 mg/ Sodium Chloride 50 ml @ 200 mls/hr Q6H IV ; Start at 08:00; Stop 01/02/17 at 02:14 Granisetron HCl (Kytril) 1 mg Q12H PO Last administered on 12/30/16 08:48; Start 12/30/16 at 09:00; Stop 12/30/16 at 09:01; Status DC Methylprednisolone Sodium Succinate (SoluMEDROL INJ) 50 mg Q12H IV PUSH Last administered on 12/30/16 08:46; Start 12/30/16 at 09:00; Stop 12/30/16 at 09 :01; Status DC Urinary Catheter: No A/P Problem List: (1) History of chemotherapy ICD Code: Z92.21 - Personal history of antineoplastic chemotherapy (2) Leukemia ICD Code: C95.90 - Leukemia, unspecified not having achieved remission (3) Rash and nonspecific skin eruption ICD Code: R21 - Rash and other nonspecific skin eruption (4) Tumor lysis syndrome ICD Code: E88.3 - Tumor lysis syndrome (5) Atrial fibrillation ICD Code: I48.91 - Unspecified atrial fibrillation Status: Acute (6) Acute kidney injury ICD Code: N17.9 - Acute kidney failure, unspecified Status: Acute (7) Hypertension ICD Code: I10 - Essential (primary) hypertension Status: Chronic Assessment and Plan B-cell acute lymphoblastic leukemia to have chemotherapy per Dr. Rice Chronic skin rash we do not have a dermatological service here-we will continue on his prednisone Atrial fibrillation by history we'll continue on his beta tan and calcium channel tan for rate control CHRONIC RENAL INSUFFICIENCY- WILL CHECK LABS NOW ANEMIA WILL BE TRANSFUSED BY ONCOLOGY HYPOTHYROIDISM START SYNTHROID 25MCG PO DAILY A.m. labs Labs today prior to chemotherapy Pain control as needed DW RN AND PT Discharge Planning PENDING ONCOLOGY CLEARANCE Fidel De DO Dec 30, 2016 11:06
[2016-12-30] MEDS ORDERED: LEVOTHYROXINE SODIUM 25 MCG TAB PO ONE (11:15)
[2016-12-30] MEDS ORDERED: WATER IV SCH ×2 (16:00)
[2016-12-30] MEDS ORDERED: DEXTROSE 5% IV SCH ×2 (16:00)
[2016-12-30] MEDS ORDERED: CYTARABINE IV SCH ×2 (16:00)
[2016-12-30] MEDS: SODIUM CHLORIDE 0.9% IV ONE (23:53)
[2016-12-30] MEDS: LEUCOVORIN CALCIUM IV ONE (23:53)
[2016-12-31] VITALS (15 sets, daily range): BP systolic 108–132; BP diastolic 43–78; PULSE 59–81; RESP 18; TEMP 96.9–99; O2SAT 96–100
[2016-12-31] MEDS: LEUCOVORIN CALCIUM IV ONE (02:00)
[2016-12-31] MEDS: SODIUM CHLORIDE 0.9% IV ONE (02:00)
[2016-12-31] MEDS: SODIUM CHLORIDE 0.9% FLUSH 10 ML FLUSH IV FLUSH PRN (04:07)
[2016-12-31 05:09] LABS: AUTOMATED NEUTROPHIL # 14.9 TH/MM3 (1.8-7.7); LYMPHOCYTE # 1.1 TH/MM3 (1.0-4.8); MEAN CELL VOLUME 96.4 FL (80.0-100.0); MEAN CORPUSCULAR HEMOGLOBIN 33.2 PG (27.0-34.0); MEAN CORPUSCULAR HGB CONC 34.4 % (32.0-36.0); MONO % 8.6 % (0.0-8.0); NEUT % 85.4 % (16.0-70.0); PLATELET COUNT 162 TH/MM3 (150-450); RED BLOOD COUNT 2.02 MIL/MM3 (4.50-5.90); RED CELL DISTRIBUTION WIDTH 21.2 % (11.6-17.2); WHITE BLOOD COUNT 17.5 TH/MM3 (4.0-11.0)
[2016-12-31 05:14] LABS: ALT (GPT) 31 U/L (12-78); ANION GAP 8 MEQ/L (5-15); AST (GOT) 11 U/L (15-37); BICARBONATE 26.5 MEQ/L (21.0-32.0); BLOOD UREA NITROGEN 26 MG/DL (7-18); CHLORIDE 102 MEQ/L (98-107); GLOMERULAR FILTRATION RATE 57 ML/MIN (>89); MAGNESIUM 1.7 MG/DL (1.5-2.5); POTASSIUM 3.6 MEQ/L (3.5-5.1); SODIUM (NA) 136 MEQ/L (136-145)
[2016-12-31 05:17] LABS: ALKALINE PHOSPHATASE 67 U/L (45-117); TOTAL BILIRUBIN ADULT 0.2 MG/DL (0.2-1.0)
[2016-12-31 05:19] LABS: HEMATOCRIT 19.4 % (39.0-51.0); HEMO FLAGS DIFF FINAL
[2016-12-31] MEDS: LEVOTHYROXINE SODIUM 25 MCG TAB PO SCH (06:07)
[2016-12-31] MEDS: DEXTROSE IV SCH ×4 (07:35→17:50)
[2016-12-31] MEDS: SODIUM ACETATE IV SCH ×4 (07:35→17:50)
[2016-12-31] MEDS ORDERED: diphenhydrAMINE HCL 25 MG CAP PO PRN (07:45)
[2016-12-31] MEDS ORDERED: SODIUM CHLOR 0.9% 250 ML INJ 250 ML IV ONE (07:45)
[2016-12-31] MEDS ORDERED: SODIUM CHLORIDE 0.9% IV SCH (08:00)
[2016-12-31] MEDS ORDERED: LEUCOVORIN CALCIUM IV SCH (08:00)
--- NOTE | 2016-12-31 08:13 | PD.ONC.PN ---
Subjective Subjective Remarks Patient seen and examined, he denies acute complaints than having a brief period of chills yesterday. Tmax was 99.5F, he has not had any measured fevers. Systemic chemotherapy was initiated yesterday with bolus dose methotrexate he remains on methotrexate infusion. Leucovorin to start after methotrexate infusion is complete. Cytarabine will start later today. Objective Data Date Time Temp Pulse Resp B/P (MAP) Pulse Ox O2 Delivery O2 Flow Rate FiO2 12/31/16 07:47 99.0 69 18 108/58 (75) 98 12/31/16 04:06 67 12/31/16 04:01 98.6 62 18 113/43 (66) 98 12/31/16 00:28 99.0 69 18 116/53 (74) 97 12/31/16 00:03 59 12/30/16 21:55 69 12/30/16 20:45 98.7 66 16 127/60 (82) 100 12/30/16 19:11 21 12/30/16 17:00 99.0 65 20 119/56 (77) 98 12/30/16 11:55 99.9 78 18 112/67 (82) 99 12/30/16 08:58 100.0 12/30/16 08:14 98.2 92 20 149/75 (99) 98 12/31/16 12/31/16 12/31/16 07:00 15:00 23:00 Intake Total 1260 ml Output Total 1900 ml Balance -640 ml Result Diagram: 12/31/16 0410 12/31/16 0410 Laboratory Results Laboratory Tests Test 12/30/16 13:00 12/31/16 04:10 Urine pH 8.0 White Blood Count 17.5 TH/MM3 Red Blood Count 2.02 MIL/MM3 Hemoglobin 6.7 GM/DL Hematocrit 19.4 % Mean Corpuscular Volume 96.4 FL Mean Corpuscular Hemoglobin 33.2 PG Mean Corpuscular Hemoglobin Concent 34.4 % Red Cell Distribution Width 21.2 % Platelet Count 162 TH/MM3 Mean Platelet Volume 6.9 FL Neutrophils (%) (Auto) 85.4 % Lymphocytes (%) (Auto) 6.0 % Monocytes (%) (Auto) 8.6 % Eosinophils (%) (Auto) 0.0 % Basophils (%) (Auto) 0.0 % Neutrophils # (Auto) 14.9 TH/MM3 Lymphocytes # (Auto) 1.1 TH/MM3 Monocytes # (Auto) 1.5 TH/MM3 Eosinophils # (Auto) 0.0 TH/MM3 Basophils # (Auto) 0.0 TH/MM3 CBC Comment DIFF FINAL Differential Comment Blood Urea Nitrogen 26 MG/DL Creatinine 1.26 MG/DL Random Glucose 228 MG/DL Total Protein 5.5 GM/DL Albumin 2.6 GM/DL Calcium Level 7.9 MG/DL Phosphorus Level 4.0 MG/DL Magnesium Level 1.7 MG/DL Alkaline Phosphatase 67 U/L Aspartate Amino Transf (AST/SGOT) 11 U/L Alanine Aminotransferase (ALT/SGPT) 31 U/L Total Bilirubin 0.2 MG/DL Sodium Level 136 MEQ/L Potassium Level 3.6 MEQ/L Chloride Level 102 MEQ/L Carbon Dioxide Level 26.5 MEQ/L Anion Gap 8 MEQ/L Estimat Glomerular Filtration Rate 57 ML/MIN Administered Medications Medications (Trade) Dose Ordered Sig/Daniel Route PRN Reason Start Time Stop Time Status Last Admin Dose Admin Enoxaparin Sodium (Lovenox Inj) 40 mg Q24H SQ 12/29/16 09:00 12/30/16 08:47 Prednisone (Deltasone) 20 mg DAILY PO 12/29/16 09:00 12/30/16 08:48 Pantoprazole Sodium (Protonix) 40 mg DAILY PO 12/29/16 09:00 12/30/16 08:46 Sodium Acetate 100 meq/Dextrose 1,050 ml @ 100 mls/hr [id number] IV 12/29/16 13:00 01/01/17 12:00 12/31/16 07:35 Prednisolone Acetate (Pred Forte 1% Opth Susp) 2 DROPS TO BOTH EYES QID EACH EYE 12/29/16 13:00 01/03/17 12:59 12/30/16 22:20 Sodium Bicarbonate (Sodium Bicarbonate) 1,300 mg QID PO 12/29/16 13:00 01/02/17 12:59 12/30/16 22:18 Acetazolamide (Diamox) 250 mg BID PO 12/29/16 21:00 12/30/16 22:18 Allopurinol (Zyloprim) 200 mg DAILY PO 12/30/16 09:00 12/30/16 08:47 Calcium/Vitamin D (Oscal-D 250-125) 500 mg Q12HR PO 12/29/16 21:00 12/30/16 22:19 Diltiazem HCl (Cardizem Cd) 240 mg DAILY PO 12/30/16 09:00 12/30/16 08:46 Lactobacillus Acidophilus (Lactinex) 1 tab TID PO 12/29/16 13:00 12/30/16 17:26 Metoprolol Tartrate (Lopressor) 25 mg Q12HR PO 12/29/16 21:00 12/30/16 22:19 Hydrocortisone (Nutracort 1% Oint) 1 applic BID TOPICAL 12/29/16 13:00 12/29/16 20:46 Sodium Chloride (NS Flush) 2 ml UNSCH PRN IV FLUSH FLUSH AFTER USING IV ACCESS 12/29/16 12:00 12/31/16 04:07 Sodium Chloride (NS Flush) 2 ml BID IV FLUSH 12/29/16 21:00 12/30/16 22:22 Acetaminophen (Tylenol) 650 mg Q4H PRN PO TEMP > 100.4 12/29/16 11:30 12/30/16 09:08 Senna/Docusate Sodium (Cindy-Colace) 1 tab BID PO 12/29/16 21:00 12/30/16 22:19 Levothyroxine Sodium (Synthroid) 25 mcg DAILY@0600 PO 12/31/16 06:00 12/31/16 06:07 Objective Remarks GENERAL PHYSICAL APPEARANCE: Mr. Chou is an elderly male. He is tall, heavyset. He appears to be in no acute distress. He appears to have a diffuse rash over his arms, face and legs. HEENT: Had is atraumatic, normocephalic. Conjunctivae are pale, sclerae are anicteric. EOMI. PERRLA. Oral exam - no pharyngeal erythema. NECK EXAM: No palpable cervical or supraclavicular lymphadenopathy. RESPIRATORY EXAM: Good air movement bilaterally. No added breath sounds. CARDIOVASCULAR EXAM: Regular rate and rhythm. S1, S2, without any obvious murmurs, rubs or gallops. ABDOMINAL EXAM: Obese belly, soft and nontender, nondistended. No palpable organ enlargement. LOWER EXTREMITIES: Bilateral pretibial edema. No calf tenderness. 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 SKIN EXTREMITIES: He has an exfoliative rash noted over his arms, especially on his back and torso. Assessment/Plan Assessment Mr. Chou is a 71-year-old male with a diagnosis of B-cell acute lymphoblastic leukemia ([place] chromosome negative). His disease is associated with very complex cytogenetics and unfortunately this predicts a poor outcome and high rates of relapse despite appropriate and aggressive treatment. He is status post induction remission therapy with Hyper-CVAD with Rituxan and intrathecal chemotherapy which was delivered in mid-October of 2016. 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 Luckily his renal function is back to baseline. He also developed fever, atrial fibrillation and a diffuse rash over the skin which persists. He comes in today for cycle #1 of consolidation therapy with Hyper-CVAD Arm-B which will consist of methotrexate and high-dose cyterabine. He has received outpatient Rituxan infusion last week at my [facility] office. Plan 1. B-cell acute lymphoblastic leukemia ([place]rose chromosome negative): Initiated on hyper-CVAD arm B day 1 was 12/30/2016. Bolus dose and methotrexate infusion to be administered on day 1. Cytarabine 2 g per metered squared to 12 hours 4 doses to be delivered on days 2 and 3. Following that the patient will be initiated on Neupogen growth factor support. Leucovorin rescue to initiate after methotrexate infusion is complete. He will remain on alkalinizing agents including sodium acetate and sodium bicarbonate. I will be able to coordinate intrathecal cytarabine injection as an outpatient. 2. Skin rash: Seems to be greatly improved with corticosteroids. 3. For hypertension and A. fib he has been resumed on beta blockers. 4. Isolated episode of blood expression from the tip of the penis: Isolated event, no rashes, ulcers or lesions noted on clinical exam today. 12/31/2016: No evidence of recurrent bleeding. 5. Anemia: Hemoglobin 6.7 g/dL noted, he is asymptomatic. 2 unit packed red blood cell transfusion ordered for today. Sukhwinder Rice MD Dec 31, 2016 08:13
[2016-12-31] MEDS: MEGESTROL ACETATE SUSP 400 MG/10 ML CUP PO SCH (09:00)
[2016-12-31] MEDS: HYDROCORTISONE 1% OINT 30 GM TUBE TOPICAL SCH ×2 (09:00→20:20)
--- NOTE | 2016-12-31 09:13 | HHI.PR ---
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 Had a previous prolonged hospitalization had an issue with a diffuse rash that was on his torso, face, and arms had VACUOLAR interface dermatitis which can be seen in erythema multiforme [id number] disease or other drug reactions PATIENT HAD STOPPED HIS BETA TAN AND CARDIZEM WHICH WE WILL RESTART 12-30 having chemo today had blood from penis today NO SOB NO CHEST PAIN TO HAVE TRANSFUSION LATER TODAY DW RN AND PT 12-31 MORE ANEMIC AFTER CHEMO TO GET BLOOD TRANSFUSIONS LATER TODAY DW RN AND PT Objective Vitals Vital Signs Date Time Temp Pulse Resp B/P (MAP) Pulse Ox O2 Delivery O2 Flow Rate FiO2 12/31/16 07:47 99.0 69 18 108/58 (75) 98 12/31/16 04:06 67 12/31/16 04:01 98.6 62 18 113/43 (66) 98 12/31/16 00:28 99.0 69 18 116/53 (74) 97 12/31/16 00:03 59 12/30/16 21:55 69 12/30/16 20:45 98.7 66 16 127/60 (82) 100 12/30/16 19:11 21 12/30/16 17:00 99.0 65 20 119/56 (77) 98 12/30/16 11:55 99.9 78 18 112/67 (82) 99 I/O 12/30/16 12/30/16 12/30/16 12/31/16 12/31/16 12/31/16 07:00 15:00 23:00 07:00 15:00 23:00 Intake Total 1170 ml 330 ml 4797 ml 1260 ml Output Total 1700 ml 1500 ml 1350 ml 1900 ml Balance -530 ml -1170 ml 3447 ml -640 ml Intake Oral 470 ml 3390 ml 120 ml IV Total 700 ml 330 ml 1407 ml 1140 ml Output Urine Total 1700 ml 1500 ml 1350 ml 1900 ml # Bowel Movements 2 Result Diagram: 12/31/16 0410 12/31/16 0410 Other Results Laboratory Tests Test 12/29/16 10:00 12/29/16 10:10 12/29/16 16:40 12/30/16 05:30 Urine pH 5.5 6.0 White Blood Count 11.2 TH/MM3 10.5 TH/MM3 Red Blood Count 2.41 MIL/MM3 2.14 MIL/MM3 Hemoglobin 8.0 GM/DL 7.0 GM/DL Hematocrit 23.4 % 20.7 % Mean Corpuscular Volume 97.1 FL 96.5 FL Mean Corpuscular Hemoglobin 33.3 PG 32.5 PG Mean Corpuscular Hemoglobin Concent 34.3 % 33.7 % Red Cell Distribution Width 21.0 % 21.1 % Platelet Count 201 TH/MM3 175 TH/MM3 Mean Platelet Volume 7.4 FL 6.7 FL Neutrophils (%) (Auto) 71.8 % 78.3 % Lymphocytes (%) (Auto) 16.8 % 11.0 % Monocytes (%) (Auto) 9.5 % 10.4 % Eosinophils (%) (Auto) 1.7 % 0.2 % Basophils (%) (Auto) 0.2 % 0.1 % Neutrophils # (Auto) 8.0 TH/MM3 8.2 TH/MM3 Lymphocytes # (Auto) 1.9 TH/MM3 1.2 TH/MM3 Monocytes # (Auto) 1.1 TH/MM3 1.1 TH/MM3 Eosinophils # (Auto) 0.2 TH/MM3 0.0 TH/MM3 Basophils # (Auto) 0.0 TH/MM3 0.0 TH/MM3 CBC Comment DIFF FINAL DIFF FINAL Differential Comment Blood Urea Nitrogen 21 MG/DL 21 MG/DL Creatinine 0.97 MG/DL 1.05 MG/DL Random Glucose 150 MG/DL 147 MG/DL Total Protein 6.3 GM/DL 5.6 GM/DL Albumin 3.3 GM/DL 2.9 GM/DL Calcium Level 9.3 MG/DL 8.6 MG/DL Phosphorus Level 3.8 MG/DL 4.5 MG/DL Magnesium Level 1.6 MG/DL 1.7 MG/DL Alkaline Phosphatase 67 U/L 54 U/L Aspartate Amino Transf (AST/SGOT) 12 U/L 7 U/L Alanine Aminotransferase (ALT/SGPT) 29 U/L 27 U/L Total Bilirubin 0.4 MG/DL 0.4 MG/DL Sodium Level 139 MEQ/L 138 MEQ/L Potassium Level 3.5 MEQ/L 3.7 MEQ/L Chloride Level 106 MEQ/L 102 MEQ/L Carbon Dioxide Level 21.0 MEQ/L 26.0 MEQ/L Anion Gap 12 MEQ/L 10 MEQ/L Estimat Glomerular Filtration Rate 77 ML/MIN 70 ML/MIN Hemoglobin A1c 6.3 % Free Thyroxine 0.92 NG/DL Thyroid Stimulating Hormone 3rd Gen 5.960 uIU/ML Test 12/30/16 06:40 12/30/16 13:00 12/31/16 04:10 Urine pH 8.5 8.0 White Blood Count 17.5 TH/MM3 Red Blood Count 2.02 MIL/MM3 Hemoglobin 6.7 GM/DL Hematocrit 19.4 % Mean Corpuscular Volume 96.4 FL Mean Corpuscular Hemoglobin 33.2 PG Mean Corpuscular Hemoglobin Concent 34.4 % Red Cell Distribution Width 21.2 % Platelet Count 162 TH/MM3 Mean Platelet Volume 6.9 FL Neutrophils (%) (Auto) 85.4 % Lymphocytes (%) (Auto) 6.0 % Monocytes (%) (Auto) 8.6 % Eosinophils (%) (Auto) 0.0 % Basophils (%) (Auto) 0.0 % Neutrophils # (Auto) 14.9 TH/MM3 Lymphocytes # (Auto) 1.1 TH/MM3 Monocytes # (Auto) 1.5 TH/MM3 Eosinophils # (Auto) 0.0 TH/MM3 Basophils # (Auto) 0.0 TH/MM3 CBC Comment DIFF FINAL Differential Comment Blood Urea Nitrogen 26 MG/DL Creatinine 1.26 MG/DL Random Glucose 228 MG/DL Total Protein 5.5 GM/DL Albumin 2.6 GM/DL Calcium Level 7.9 MG/DL Phosphorus Level 4.0 MG/DL Magnesium Level 1.7 MG/DL Alkaline Phosphatase 67 U/L Aspartate Amino Transf (AST/SGOT) 11 U/L Alanine Aminotransferase (ALT/SGPT) 31 U/L Total Bilirubin 0.2 MG/DL Sodium Level 136 MEQ/L Potassium Level 3.6 MEQ/L Chloride Level 102 MEQ/L Carbon Dioxide Level 26.5 MEQ/L Anion Gap 8 MEQ/L Estimat Glomerular Filtration Rate 57 ML/MIN Objective Remarks GENERAL: This is a well-nourished, well-developed patient, in no apparent distress. SKIN: Possible skin rash, ecchymoses or lesions. Cool and dry. HEAD: Atraumatic. Normocephalic. No temporal or scalp tenderness. EYES: Pupils equal round and reactive. Extraocular motions intact. No scleral icterus. No injection or drainage. ENT: Nose without bleeding, purulent drainage or septal hematoma. Throat without erythema, tonsillar hypertrophy or exudate. Uvula midline. Airway patent. Tongue is midline NECK: Trachea midline. No JVD or lymphadenopathy. Supple, nontender, no meningeal signs. CARDIOVASCULAR: Regular rate and rhythm without murmurs, gallops, or rubs. S1 and S2 no S3 or S4 no heave or thrill or rub or gallop RESPIRATORY: Clear to auscultation. Breath sounds equal bilaterally. No wheezes , rales, or rhonchi. GASTROINTESTINAL: Abdomen soft, non-tender, nondistended. No hepato-splenomegaly , or palpable masses. No guarding. MUSCULOSKELETAL: Extremities without clubbing, cyanosis, or edema. No joint tenderness, effusion, or edema noted. No calf tenderness. Negative Homans sign bilaterally. NEUROLOGICAL: Awake and alert. Cranial nerves II through XII intact. Motor and sensory grossly within normal limits. Five out of 5 muscle strength in all muscle groups. Normal speech. Insight and judgment is good, mood and behaviors appropriate Medications and IVs Laboratory Tests Test 12/29/16 10:00 12/29/16 10:10 12/29/16 16:40 12/30/16 05:30 Urine pH 5.5 6.0 White Blood Count 11.2 TH/MM3 10.5 TH/MM3 Red Blood Count 2.41 MIL/MM3 2.14 MIL/MM3 Hemoglobin 8.0 GM/DL 7.0 GM/DL Hematocrit 23.4 % 20.7 % Mean Corpuscular Volume 97.1 FL 96.5 FL Mean Corpuscular Hemoglobin 33.3 PG 32.5 PG Mean Corpuscular Hemoglobin Concent 34.3 % 33.7 % Red Cell Distribution Width 21.0 % 21.1 % Platelet Count 201 TH/MM3 175 TH/MM3 Mean Platelet Volume 7.4 FL 6.7 FL Neutrophils (%) (Auto) 71.8 % 78.3 % Lymphocytes (%) (Auto) 16.8 % 11.0 % Monocytes (%) (Auto) 9.5 % 10.4 % Eosinophils (%) (Auto) 1.7 % 0.2 % Basophils (%) (Auto) 0.2 % 0.1 % Neutrophils # (Auto) 8.0 TH/MM3 8.2 TH/MM3 Lymphocytes # (Auto) 1.9 TH/MM3 1.2 TH/MM3 Monocytes # (Auto) 1.1 TH/MM3 1.1 TH/MM3 Eosinophils # (Auto) 0.2 TH/MM3 0.0 TH/MM3 Basophils # (Auto) 0.0 TH/MM3 0.0 TH/MM3 CBC Comment DIFF FINAL DIFF FINAL Differential Comment Blood Urea Nitrogen 21 MG/DL 21 MG/DL Creatinine 0.97 MG/DL 1.05 MG/DL Random Glucose 150 MG/DL 147 MG/DL Total Protein 6.3 GM/DL 5.6 GM/DL Albumin 3.3 GM/DL 2.9 GM/DL Calcium Level 9.3 MG/DL 8.6 MG/DL Phosphorus Level 3.8 MG/DL 4.5 MG/DL Magnesium Level 1.6 MG/DL 1.7 MG/DL Alkaline Phosphatase 67 U/L 54 U/L Aspartate Amino Transf (AST/SGOT) 12 U/L 7 U/L Alanine Aminotransferase (ALT/SGPT) 29 U/L 27 U/L Total Bilirubin 0.4 MG/DL 0.4 MG/DL Sodium Level 139 MEQ/L 138 MEQ/L Potassium Level 3.5 MEQ/L 3.7 MEQ/L Chloride Level 106 MEQ/L 102 MEQ/L Carbon Dioxide Level 21.0 MEQ/L 26.0 MEQ/L Anion Gap 12 MEQ/L 10 MEQ/L Estimat Glomerular Filtration Rate 77 ML/MIN 70 ML/MIN Hemoglobin A1c 6.3 % Free Thyroxine 0.92 NG/DL Thyroid Stimulating Hormone 3rd Gen 5.960 uIU/ML Test 12/30/16 06:40 12/30/16 13:00 12/31/16 04:10 Urine pH 8.5 8.0 White Blood Count 17.5 TH/MM3 Red Blood Count 2.02 MIL/MM3 Hemoglobin 6.7 GM/DL Hematocrit 19.4 % Mean Corpuscular Volume 96.4 FL Mean Corpuscular Hemoglobin 33.2 PG Mean Corpuscular Hemoglobin Concent 34.4 % Red Cell Distribution Width 21.2 % Platelet Count 162 TH/MM3 Mean Platelet Volume 6.9 FL Neutrophils (%) (Auto) 85.4 % Lymphocytes (%) (Auto) 6.0 % Monocytes (%) (Auto) 8.6 % Eosinophils (%) (Auto) 0.0 % Basophils (%) (Auto) 0.0 % Neutrophils # (Auto) 14.9 TH/MM3 Lymphocytes # (Auto) 1.1 TH/MM3 Monocytes # (Auto) 1.5 TH/MM3 Eosinophils # (Auto) 0.0 TH/MM3 Basophils # (Auto) 0.0 TH/MM3 CBC Comment DIFF FINAL Differential Comment Blood Urea Nitrogen 26 MG/DL Creatinine 1.26 MG/DL Random Glucose 228 MG/DL Total Protein 5.5 GM/DL Albumin 2.6 GM/DL Calcium Level 7.9 MG/DL Phosphorus Level 4.0 MG/DL Magnesium Level 1.7 MG/DL Alkaline Phosphatase 67 U/L Aspartate Amino Transf (AST/SGOT) 11 U/L Alanine Aminotransferase (ALT/SGPT) 31 U/L Total Bilirubin 0.2 MG/DL Sodium Level 136 MEQ/L Potassium Level 3.6 MEQ/L Chloride Level 102 MEQ/L Carbon Dioxide Level 26.5 MEQ/L Anion Gap 8 MEQ/L Estimat Glomerular Filtration Rate 57 ML/MIN Urinary Catheter: No Vascular Central Line Catheter: No A/P Problem List: (1) History of chemotherapy ICD Code: Z92.21 - Personal history of antineoplastic chemotherapy (2) Leukemia ICD Code: C95.90 - Leukemia, unspecified not having achieved remission (3) Rash and nonspecific skin eruption ICD Code: R21 - Rash and other nonspecific skin eruption (4) Tumor lysis syndrome ICD Code: E88.3 - Tumor lysis syndrome (5) Atrial fibrillation ICD Code: I48.91 - Unspecified atrial fibrillation Status: Acute (6) Acute kidney injury ICD Code: N17.9 - Acute kidney failure, unspecified Status: Acute (7) Hypertension ICD Code: I10 - Essential (primary) hypertension Status: Chronic Assessment and Plan B-cell acute lymphoblastic leukemia to have chemotherapy per Dr. Rice Chronic skin rash we do not have a dermatological service here-we will continue on his prednisone Atrial fibrillation by history we'll continue on his beta tan and calcium channel tan for rate control CHRONIC RENAL INSUFFICIENCY- WILL CHECK LABS NOW ANEMIA WILL BE TRANSFUSED BY ONCOLOGY HYPOTHYROIDISM START SYNTHROID 25MCG PO DAILY A.m. labs Labs today prior to chemotherapy Pain control as needed DW RN AND PT WILL NEED A TRANSFUSION TODAY AM LABS Discharge Planning PENDING ONCOLOGY CLEARANCE Fidel eD DO Dec 31, 2016 09:13
[2016-12-31] MEDS: ENOXAPARIN SODIUM 40 MG/0.4 ML SYRINGE SQ SCH (09:15)
[2016-12-31] MEDS: methylPREDNISolone SOD SUCC 125 MG/2 ML VIAL IV PUSH SCH ×2 (09:15→20:20)
[2016-12-31] MEDS: acetaZOLAMIDE 250 MG TAB PO SCH ×2 (09:16→20:19)
[2016-12-31] MEDS: prednisoLONE ACETATE 1% OPHT SUSP 5 ML BTL EACH EYE SCH ×4 (09:16→20:19)
[2016-12-31] MEDS: DILTIAZEM-CD 240 MG CAP ER PO SCH (09:16)
[2016-12-31] MEDS: ALLOPURINOL 100 MG TAB PO SCH (09:16)
[2016-12-31] MEDS: GRANISETRON HCL 1 MG TAB PO SCH ×2 (09:16→20:00)
[2016-12-31] MEDS: PANTOPRAZOLE SOD 40 MG DELAYED RELEASE TAB PO SCH (09:16)
[2016-12-31] MEDS: DOCUSATE SODIUM 50 MG/SENNA 8.6 MG TAB PO SCH ×2 (09:16→20:19)
[2016-12-31] MEDS: predniSONE 20 MG TAB PO SCH (09:16)
[2016-12-31] MEDS: METOPROLOL TARTRATE 25 MG TAB PO SCH ×2 (09:17→20:19)
[2016-12-31] MEDS: SODIUM BICARBONATE 650 MG TAB PO SCH ×4 (09:17→20:19)
[2016-12-31] MEDS: SODIUM CHLORIDE 0.9% FLUSH 10 ML FLUSH IV FLUSH SCH ×2 (09:17→20:20)
[2016-12-31] MEDS: CALCIUM/VITAMIN D 250 MG/125 U TAB PO SCH ×2 (09:17→20:19)
[2016-12-31] MEDS: LACTOBACILLUS ACIDOPHILUS TAB PO SCH ×3 (09:17→17:50)
[2016-12-31] MEDS: WATER IV SCH ×4 (11:10→22:47)
[2016-12-31] MEDS: DEXTROSE 5% IV SCH ×4 (11:10→22:47)
[2016-12-31] MEDS: CYTARABINE IV SCH ×4 (11:10→22:47)
[2016-12-31] MEDS: diphenhydrAMINE HCL 25 MG CAP PO PRN ×2 (13:52→17:49)
[2016-12-31] MEDS: ACETAMINOPHEN 325 MG TAB PO PRN ×2 (13:52→17:50)
[2016-12-31] MEDS ORDERED: LEUCOVORIN CALCIUM IV ONE (22:00)
[2016-12-31] MEDS ORDERED: SODIUM CHLORIDE 0.9% IV ONE (22:00)
[2017-01-01] VITALS (10 sets, daily range): BP systolic 127–152; BP diastolic 69–75; PULSE 60–76; RESP 16–18; TEMP 97.5–98.8; O2SAT 98–100
[2017-01-01] MEDS: SODIUM CHLORIDE 0.9% IV SCH ×4 (04:11→21:58)
[2017-01-01] MEDS: LEUCOVORIN CALCIUM IV SCH ×4 (04:11→21:58)
[2017-01-01] MEDS: SODIUM ACETATE IV SCH ×4 (04:46→16:24)
[2017-01-01] MEDS: DEXTROSE IV SCH ×4 (04:46→16:24)
[2017-01-01] MEDS: LEVOTHYROXINE SODIUM 25 MCG TAB PO SCH (04:46)
[2017-01-01 04:49] LABS: AUTOMATED NEUTROPHIL # 12.8 TH/MM3 (1.8-7.7); BASOPHIL % 0.1 % (0.0-2.0); HEMATOCRIT 28.4 % (39.0-51.0); HEMO FLAGS DIFF FINAL; LYMPH % 2.6 % (9.0-44.0); LYMPHOCYTE # 0.3 TH/MM3 (1.0-4.8); MEAN CELL VOLUME 91.2 FL (80.0-100.0); MEAN CORPUSCULAR HEMOGLOBIN 31.1 PG (27.0-34.0); MEAN CORPUSCULAR HGB CONC 34.1 % (32.0-36.0); MONO % 1.4 % (0.0-8.0); NEUT % 95.9 % (16.0-70.0); PLATELET COUNT 164 TH/MM3 (150-450); RED BLOOD COUNT 3.12 MIL/MM3 (4.50-5.90); RED CELL DISTRIBUTION WIDTH 21.7 % (11.6-17.2); WHITE BLOOD COUNT 13.4 TH/MM3 (4.0-11.0)
[2017-01-01 05:16] LABS: ALKALINE PHOSPHATASE 88 U/L (45-117); ALT (GPT) 58 U/L (12-78); ANION GAP 9 MEQ/L (5-15); AST (GOT) 26 U/L (15-37); BLOOD UREA NITROGEN 30 MG/DL (7-18); CHLORIDE 102 MEQ/L (98-107); GLOMERULAR FILTRATION RATE 56 ML/MIN (>89); POTASSIUM 3.3 MEQ/L (3.5-5.1); SODIUM (NA) 135 MEQ/L (136-145); TOTAL BILIRUBIN ADULT 0.4 MG/DL (0.2-1.0)
--- NOTE | 2017-01-01 07:40 | HHI.PR ---
Subjective Remarks in no acute distress. resting comfortably with no distress. denies pain. afebrile. Objective Vitals Vital Signs Date Time Temp Pulse Resp B/P (MAP) Pulse Ox O2 Delivery O2 Flow Rate FiO2 01/01/17 04:37 97.5 63 18 135/71 (92) 98 01/01/17 00:00 97.8 66 18 143/69 (93) 99 12/31/16 21:23 73 12/31/16 21:08 99 12/31/16 20:00 98.2 74 18 126/53 (77) 100 12/31/16 18:43 98.0 73 18 126/72 100 12/31/16 18:12 96.9 77 18 132/78 100 12/31/16 15:30 98.3 76 18 123/76 96 12/31/16 14:44 98.0 81 18 120/76 100 12/31/16 11:45 99 12/31/16 11:15 98.0 64 18 123/68 (86) 99 12/31/16 08:10 68 12/31/16 07:47 99.0 69 18 108/58 (75) 98 I/O 12/31/16 12/31/16 12/31/16 01/01/17 01/01/17 01/01/17 07:00 15:00 23:00 07:00 15:00 23:00 Intake Total 1260 ml 503 ml 1981 ml 540 ml Output Total 1900 ml 1275 ml 1300 ml 1250 ml Balance -640 ml -772 ml 681 ml -710 ml Intake Oral 120 ml 240 ml IV Total 1140 ml 503 ml 1156 ml 300 ml Packed Cells 800 ml Blood Product IV Normal Saline Flush 25 ml Output Urine Total 1900 ml 1275 ml 1300 ml 1250 ml # Bowel Movements 3 Result Diagram: 01/01/17 0415 01/01/17 0415 Objective Remarks GENERAL: This is a well-nourished, well-developed patient, in no apparent distress. CARDIOVASCULAR: Regular rate and regular rhythm without murmurs, gallops, or rubs. RESPIRATORY: Clear to auscultation. Breath sounds equal bilaterally. No wheezes , rales, or rhonchi. GASTROINTESTINAL: Abdomen soft, non-tender, nondistended. Normal, active bowel sounds MUSCULOSKELETAL: Extremities without clubbing, cyanosis, or edema. NEURO: Alert & Oriented x4 to person, place, time, situation. Moves all ext x4 Medications and IVs Current Medications Sodium Chloride (NS Flush) 2 ml UNSCH PRN IV FLUSH FLUSH AFTER USING IV ACCESS ; Start 12/29/16 at 08:00; Status Cancel Sodium Chloride (NS Flush) 2 ml BID IV FLUSH Last administered on 12/29/16t 10 :20; Start 12/29/16 at 09:00; Stop 12/29/16 at 12:20; Status DC Ondansetron HCl (Zofran Inj) 4 mg Q6H PRN IVP NAUSEA OR VOMITING; Start at 08:00; Status Cancel Metoclopramide HCl (Reglan Inj) 5 mg Q6H PRN IV PUSH NAUSEA OR VOMITING; Start 12/29/16 at 08:00 Prochlorperazine (Compazine Supp) 25 mg Q12H PRN RECTAL NAUSEA OR VOMITING; Start 12/29/16 at 08:00; Status Cancel Zolpidem Tartrate (Ambien) 5 mg HS PRN PO INSOMNIA; Start 12/29/16 at 21:00 Enoxaparin Sodium (Lovenox Inj) 40 mg Q24H SQ Last administered on 12/31/16 09:15; Start 12/29/16 at 09:00 Naloxone HCl (Narcan Inj) 0.4 mg UNSCH PRN IV PUSH SEE LABEL COMMENTS; Start 12/29/16 at 08:00; Status Cancel Senna/Docusate Sodium (Cindy-Colace) 1 tab BID PO ; Start 12/29/16 at 09:00; Stop 12/29/16 at 11:49; Status DC Magnesium Hydroxide (Milk Of Magnesia Liq) 30 ml Q12H PRN PO Mild constipation ; Start 12/29/16 at 08:00; Status Cancel Sennosides (Senokot) 17.2 mg Q12H PRN PO Moderate constipation; Start at 08:00; Status Cancel Bisacodyl (Dulcolax Supp) 10 mg DAILY PRN RECTAL SEVERE CONSITIPATION; Start 12/29/16 at 08:00; Status Cancel Lactulose (Lactulose Liq) 30 ml DAILY PRN PO SEVERE CONSITIPATION; Start 12/29 at 08:00; Status Cancel Prednisone (Deltasone) 20 mg DAILY PO Last administered on 12/31/16 09:16; Start 12/29/16 at 09:00 Pantoprazole Sodium (Protonix) 40 mg DAILY PO Last administered on 12/31/16 09:16; Start 12/29/16 at 09:00 Sodium Acetate 100 meq/Dextrose 1,050 ml @ 100 mls/hr [id number] IV Last administered on 01/01/17 04:46; Start 12/29/16 at 13:00; Stop 01/01/17 at 12 :00 Prednisolone Acetate (Pred Forte 1% Opth Susp) 2 DROPS TO BOTH EYES QID EACH EYE Last administered on 12/31/16 20:19; Start 12/29/16 at 13:00; Stop at 12:59 Sodium Bicarbonate (Sodium Bicarbonate) 1,300 mg QID PO Last administered on 20:19; Start 12/29/16 at 13:00; Stop 01/02/17 at 12:59 Acetazolamide (Diamox) 250 mg BID PO Last administered on 12/31/16 20:19; Start 12/29/16 at 21:00 Granisetron HCl (Kytril) 1 mg Q12H PO Last administered on 12/29/16 13:53; Start 12/29/16 at 13:00; Stop 12/30/16 at 08:38; Status DC Methylprednisolone Sodium Succinate (SoluMEDROL INJ) 50 mg Q12H IV PUSH Last administered on 12/29/16 13:53; Start 12/29/16 at 13:00; Stop 12/30/16 at 08 :39; Status DC Methotrexate Sodium 440 mg/ Dextrose 267.6 ml @ 133.8 mls/ hr ONCE ONCE IV Last administered on 12/30/16 09:58; Start 12/29/16 at 14:00; Stop 12/29/16 at 15:59; Status DC Methotrexate Sodium 1760 mg/ Dextrose 1,070.4 ml @ 48.655 mls/hr ONCE ONCE IV Last administered on 12/30/16 12:57; Start 12/29/16 at 16:00; Stop at 13:59; Status DC Cytarabine 4400 mg/Dextrose 250 ml @ 125 mls/hr Q12H IV ; Start 12/30/16 at 16 :00; Stop 12/31/16 at 09:42; Status DC Allopurinol (Zyloprim) 200 mg DAILY PO Last administered on 12/31/16 09:16; Start 12/30/16 at 09:00 Calcium/Vitamin D (Oscal-D 250-125) 500 mg Q12HR PO Last administered on 20:19; Start 12/29/16 at 21:00 Diltiazem HCl (Cardizem Cd) 240 mg DAILY PO Last administered on 12/31/16 09: 16; Start 12/30/16 at 09:00 Diphenhydramine HCl (Benadryl) 25 mg Q4H PRN PO SEE LABEL COMMENTS Last administered on 12/31/16 17:49; Start 12/29/16 at 11:00 Lactobacillus Acidophilus (Lactinex) 1 tab TID PO Last administered on 17:50; Start 12/29/16 at 13:00 Megestrol Acetate (Megace Liq) 400 mg DAILY PO ; Start 12/30/16 at 09:00 Metoprolol Tartrate (Lopressor) 25 mg Q12HR PO Last administered on 12/31/16 20:19; Start 12/29/16 at 21:00 Pantoprazole Sodium (Protonix) 20 mg DAILY PO ; Start 12/30/16 at 09:00; Stop 12/30/16 at 09:00; Status DC Hydrocortisone (Nutracort 1% Oint) 1 applic BID TOPICAL Last administered on 20:46; Start 12/29/16 at 13:00 Prednisone (Deltasone) 40 mg DAILY PO ; Start 12/29/16 at 11:15; Status UNV Sodium Chloride (NS Flush) 2 ml UNSCH PRN IV FLUSH FLUSH AFTER USING IV ACCESS Last administered on 12/31/16 04:07; Start 12/29/16 at 12:00 Sodium Chloride (NS Flush) 2 ml BID IV FLUSH Last administered on 12/31/16 20 :20; Start 12/29/16 at 21:00 Acetaminophen (Tylenol) 650 mg Q4H PRN PO TEMP > 100.4 Last administered on 09:08; Start 12/29/16 at 11:30 Ondansetron HCl (Zofran Inj) 4 mg Q6H PRN IVP NAUSEA OR VOMITING; Start at 11:30 Prochlorperazine (Compazine Supp) 25 mg Q12H PRN RECTAL NAUSEA OR VOMITING; Start 12/29/16 at 11:30 Acetaminophen (Tylenol) 650 mg Q6H PRN PO PAIN SCALE 1 TO 2; Start 12/29/16 at 11:30 Oxycodone/ Acetaminophen (Percocet 5-325 Mg) 1 tab Q6H PRN PO PAIN SCALE 3 TO 5; Start 12/29/16 at 11:30 Oxycodone/ Acetaminophen (Percocet 10-325 Mg) 1 tab Q6H PRN PO PAIN SCALE 6 TO 10; Start 12/29/16 at 11:30 Morphine Sulfate (Morphine Inj) 2 mg Q3H PRN IV PUSH Pain 3-5; if unable to take PO; Start 12/29/16 at 11:30 Morphine Sulfate (Morphine Inj) 4 mg Q3H PRN IV PUSH Pain 6-10;if unable to take PO; Start 12/29/16 at 11:30 Naloxone HCl (Narcan Inj) 0.4 mg UNSCH PRN IV PUSH SEE LABEL COMMENTS; Start 12/29/16 at 11:45 Senna/Docusate Sodium (Cindy-Colace) 1 tab BID PO Last administered on t 20:19; Start 12/29/16 at 21:00 Magnesium Hydroxide (Milk Of Magnesia Liq) 30 ml Q12H PRN PO Mild constipation ; Start 12/29/16 at 11:45 Sennosides (Senokot) 17.2 mg Q12H PRN PO Moderate constipation; Start at 11:45 Bisacodyl (Dulcolax Supp) 10 mg DAILY PRN RECTAL SEVERE CONSITIPATION; Start 12/29/16 at 11:45 Lactulose (Lactulose Liq) 30 ml DAILY PRN PO SEVERE CONSITIPATION; Start 12/29 at 11:45 Leucovorin Calcium 50 mg/ Sodium Chloride 50 ml @ 200 mls/hr ONCE ONCE IV ; Start 12/31/16 at 02:00; Stop 12/31/16 at 02:14; Status DC Leucovorin Calcium 25 mg/ Sodium Chloride 50 ml @ 200 mls/hr Q6H IV ; Start at 08:00; Stop 12/31/16 at 09:50; Status DC Granisetron HCl (Kytril) 1 mg Q12H PO Last administered on 12/30/16 08:48; Start 12/30/16 at 09:00; Stop 12/30/16 at 09:01; Status DC Methylprednisolone Sodium Succinate (SoluMEDROL INJ) 50 mg Q12H IV PUSH Last administered on 12/30/16 08:46; Start 12/30/16 at 09:00; Stop 12/30/16 at 09 :01; Status DC Levothyroxine Sodium (Synthroid) 25 mcg DAILY@0600 PO Last administered on 04:46; Start 12/31/16 at 06:00 Levothyroxine Sodium (Synthroid) 25 mcg ONCE ONCE PO Last administered on 13:00; Start 12/30/16 at 11:15; Stop 12/30/16 at 11:16; Status DC Granisetron HCl (Kytril) 1 mg Q12H PO Last administered on 12/31/16 20:00; Start 12/31/16 at 08:00; Stop 01/01/17 at 20:01 Methylprednisolone Sodium Succinate (SoluMEDROL INJ) 50 mg Q12H IV PUSH Last administered on 12/31/16 20:20; Start 12/31/16 at 08:00; Stop 01/01/17 at 20 :01 Sodium Chloride 250 ml @ 15 mls/hr ONCE ONCE IV Last administered on 15:00; Start 12/31/16 at 07:45; Stop 01/01/17 at 00:24; Status DC Acetaminophen (Tylenol) 650 mg Q4H PRN PO SEE LABEL COMMENTS Last administered on 12/31/16 17:50; Start 12/31/16 at 07:45; Stop 12/31/16 at 17:50; Status DC Diphenhydramine HCl (Benadryl) 25 mg Q4H PRN PO SEE LABEL COMMENTS; Start at 07:45 Cytarabine 4400 mg/Dextrose 250 ml @ 125 mls/hr Q12H IV Last administered on 12/31/16 22:47; Start 12/31/16 at 11:00; Stop 01/02/17 at 00:59 Leucovorin Calcium 50 mg/ Sodium Chloride 50 ml @ 200 mls/hr ONCE ONCE IV Last administered on 12/31/16 22:00; Start 12/31/16 at 22:00; Stop 12/31/16 at 22:14; Status DC Leucovorin Calcium 25 mg/ Sodium Chloride 50 ml @ 200 mls/hr Q6H IV Last administered on 01/01/17 04:11; Start 01/01/17 at 04:00; Stop 01/02/17 at 22 :14 A/P Problem List: (1) History of chemotherapy ICD Code: Z92.21 - Personal history of antineoplastic chemotherapy (2) Leukemia ICD Code: C95.90 - Leukemia, unspecified not having achieved remission (3) Rash and nonspecific skin eruption ICD Code: R21 - Rash and other nonspecific skin eruption (4) Tumor lysis syndrome ICD Code: E88.3 - Tumor lysis syndrome (5) Atrial fibrillation ICD Code: I48.91 - Unspecified atrial fibrillation Status: Acute (6) Acute kidney injury ICD Code: N17.9 - Acute kidney failure, unspecified Status: Acute (7) Hypertension ICD Code: I10 - Essential (primary) hypertension Status: Chronic Assessment and Plan A/P B-cell acute lymphoblastic leukemia-on chemotherapy per Dr. Rice Chronic skin rash- continue steroids Atrial fibrillation by history we'll continue on his beta krystina and calcium channel krystina for rate control anemia- due to chemo- transfused with PRBC- H/H improved- continue to monitor. hypothyroidism; continue synthroid mild hypokalemia; will replace. DVT prophylaxis with subq Lovenox Tabitha Jimenez MD Jan 01, 2017 07:40
[2017-01-01] MEDS ORDERED: POTASSIUM CHLORIDE 20 MEQ CONTROLLED RELEASE TAB PO ONE (07:45)
[2017-01-01] MEDS: GRANISETRON HCL 1 MG TAB PO SCH ×2 (08:00→20:00)
[2017-01-01] MEDS: PANTOPRAZOLE SOD 40 MG DELAYED RELEASE TAB PO SCH (08:53)
[2017-01-01] MEDS: CALCIUM/VITAMIN D 250 MG/125 U TAB PO SCH ×2 (08:53→21:05)
[2017-01-01] MEDS: predniSONE 20 MG TAB PO SCH (08:53)
[2017-01-01] MEDS: ALLOPURINOL 100 MG TAB PO SCH (08:53)
[2017-01-01] MEDS: acetaZOLAMIDE 250 MG TAB PO SCH ×2 (08:54→21:05)
[2017-01-01] MEDS: LACTOBACILLUS ACIDOPHILUS TAB PO SCH ×3 (08:54→18:25)
[2017-01-01] MEDS: SODIUM BICARBONATE 650 MG TAB PO SCH ×4 (08:54→21:05)
[2017-01-01] MEDS: methylPREDNISolone SOD SUCC 125 MG/2 ML VIAL IV PUSH SCH ×2 (08:55→21:06)
[2017-01-01] MEDS: SODIUM CHLORIDE 0.9% FLUSH 10 ML FLUSH IV FLUSH SCH ×2 (08:56→21:11)
[2017-01-01] MEDS: prednisoLONE ACETATE 1% OPHT SUSP 5 ML BTL EACH EYE SCH ×4 (08:56→21:06)
[2017-01-01] MEDS: METOPROLOL TARTRATE 25 MG TAB PO SCH ×2 (08:59→21:05)
[2017-01-01] MEDS: MEGESTROL ACETATE SUSP 400 MG/10 ML CUP PO SCH (08:59)
[2017-01-01] MEDS: HYDROCORTISONE 1% OINT 30 GM TUBE TOPICAL SCH ×2 (08:59→21:06)
[2017-01-01] MEDS: DILTIAZEM-CD 240 MG CAP ER PO SCH (08:59)
[2017-01-01] MEDS: ENOXAPARIN SODIUM 40 MG/0.4 ML SYRINGE SQ SCH (08:59)
[2017-01-01] MEDS: DOCUSATE SODIUM 50 MG/SENNA 8.6 MG TAB PO SCH ×2 (09:00→21:05)
[2017-01-01] MEDS: DEXTROSE 5% IV SCH ×4 (11:14→23:01)
[2017-01-01] MEDS: WATER IV SCH ×4 (11:14→23:01)
[2017-01-01] MEDS: CYTARABINE IV SCH ×4 (11:14→23:01)
--- NOTE | 2017-01-01 17:51 | PD.ONC.PN ---
Subjective Subjective Remarks Patient reports feeling some fatigue, he denies fevers or chills, reports his rash is well controlled. He has been eating reasonably well reports moving his bowels as well. He denies overt bleeding. He is status post 3 out of 4 doses of cytarabine. He remains on leucovorin infusions. Objective Data Date Time Temp Pulse Resp B/P (MAP) Pulse Ox O2 Delivery O2 Flow Rate FiO2 01/01/17 16:25 98.1 68 18 142/71 (94) 98 01/01/17 12:32 97.9 61 18 127/74 (91) 98 01/01/17 08:55 98.7 67 18 152/75 (100) 99 01/01/17 08:51 67 01/01/17 08:03 76 01/01/17 04:37 97.5 63 18 135/71 (92) 98 01/01/17 00:00 97.8 66 18 143/69 (93) 99 12/31/16 21:23 73 12/31/16 21:08 99 12/31/16 20:00 98.2 74 18 126/53 (77) 100 12/31/16 18:43 98.0 73 18 126/72 100 12/31/16 18:12 96.9 77 18 132/78 100 01/01/17 01/01/17 01/01/17 07:00 15:00 23:00 Intake Total 540 ml 352 ml 988 ml Output Total 1250 ml 275 ml 400 ml Balance -710 ml 77 ml 588 ml Result Diagram: 01/01/17 0415 01/01/17 0415 Laboratory Results Laboratory Tests Test 12/31/16 19:41 01/01/17 04:15 01/01/17 08:02 01/01/17 10:30 Urine pH 8.0 8.0 White Blood Count 13.4 TH/MM3 Red Blood Count 3.12 MIL/MM3 Hemoglobin 9.7 GM/DL Hematocrit 28.4 % Mean Corpuscular Volume 91.2 FL Mean Corpuscular Hemoglobin 31.1 PG Mean Corpuscular Hemoglobin Concent 34.1 % Red Cell Distribution Width 21.7 % Platelet Count 164 TH/MM3 Mean Platelet Volume 7.1 FL Neutrophils (%) (Auto) 95.9 % Lymphocytes (%) (Auto) 2.6 % Monocytes (%) (Auto) 1.4 % Eosinophils (%) (Auto) 0.0 % Basophils (%) (Auto) 0.1 % Neutrophils # (Auto) 12.8 TH/MM3 Lymphocytes # (Auto) 0.3 TH/MM3 Monocytes # (Auto) 0.2 TH/MM3 Eosinophils # (Auto) 0.0 TH/MM3 Basophils # (Auto) 0.0 TH/MM3 CBC Comment DIFF FINAL Differential Comment Blood Urea Nitrogen 30 MG/DL Creatinine 1.27 MG/DL Random Glucose 313 MG/DL Total Protein 6.1 GM/DL Albumin 2.8 GM/DL Calcium Level 8.0 MG/DL Phosphorus Level 3.5 MG/DL Magnesium Level 2.0 MG/DL Alkaline Phosphatase 88 U/L Aspartate Amino Transf (AST/SGOT) 26 U/L Alanine Aminotransferase (ALT/SGPT) 58 U/L Total Bilirubin 0.4 MG/DL Sodium Level 135 MEQ/L Potassium Level 3.3 MEQ/L Chloride Level 102 MEQ/L Carbon Dioxide Level 24.0 MEQ/L Anion Gap 9 MEQ/L Estimat Glomerular Filtration Rate 56 ML/MIN Methotrexate Level 1.50 UMOL/L Administered Medications Medications (Trade) Dose Ordered Sig/Daniel Route PRN Reason Start Time Stop Time Status Last Admin Dose Admin Enoxaparin Sodium (Lovenox Inj) 40 mg Q24H SQ 12/29/16 09:00 01/01/17 08:59 Prednisone (Deltasone) 20 mg DAILY PO 12/29/16 09:00 01/01/17 08:53 Pantoprazole Sodium (Protonix) 40 mg DAILY PO 12/29/16 09:00 01/01/17 08:53 Prednisolone Acetate (Pred Forte 1% Opth Susp) 2 DROPS TO BOTH EYES QID EACH EYE 12/29/16 13:00 01/03/17 12:59 01/01/17 13:09 Sodium Bicarbonate (Sodium Bicarbonate) 1,300 mg QID PO 12/29/16 13:00 01/02/17 12:59 01/01/17 13:09 Acetazolamide (Diamox) 250 mg BID PO 12/29/16 21:00 01/01/17 08:54 Allopurinol (Zyloprim) 200 mg DAILY PO 12/30/16 09:00 01/01/17 08:53 Calcium/Vitamin D (Oscal-D 250-125) 500 mg Q12HR PO 12/29/16 21:00 01/01/17 08:53 Diltiazem HCl (Cardizem Cd) 240 mg DAILY PO 12/30/16 09:00 01/01/17 08:59 Diphenhydramine HCl (Benadryl) 25 mg Q4H PRN PO SEE LABEL COMMENTS 12/29/16 11:00 12/31/16 17:49 Lactobacillus Acidophilus (Lactinex) 1 tab TID PO 12/29/16 13:00 01/01/17 13:09 Metoprolol Tartrate (Lopressor) 25 mg Q12HR PO 12/29/16 21:00 01/01/17 08:59 Hydrocortisone (Nutracort 1% Oint) 1 applic BID TOPICAL 12/29/16 13:00 12/29/16 20:46 Sodium Chloride (NS Flush) 2 ml UNSCH PRN IV FLUSH FLUSH AFTER USING IV ACCESS 12/29/16 12:00 12/31/16 04:07 Sodium Chloride (NS Flush) 2 ml BID IV FLUSH 12/29/16 21:00 01/01/17 08:56 Acetaminophen (Tylenol) 650 mg Q4H PRN PO TEMP > 100.4 12/29/16 11:30 12/30/16 09:08 Senna/Docusate Sodium (Cindy-Colace) 1 tab BID PO 12/29/16 21:00 12/31/16 20:19 Levothyroxine Sodium (Synthroid) 25 mcg DAILY@0600 PO 12/31/16 06:00 01/01/17 04:46 Granisetron HCl (Kytril) 1 mg Q12H PO 12/31/16 08:00 01/01/17 20:01 01/01/17 08:00 Methylprednisolone Sodium Succinate (SoluMEDROL INJ) 50 mg Q12H IV PUSH 12/31/16 08:00 01/01/17 20:01 01/01/17 08:55 Cytarabine 4400 mg/Dextrose 250 ml @ 125 mls/hr Q12H IV 12/31/16 11:00 01/02/17 00:59 01/01/17 11:14 Leucovorin Calcium 25 mg/ Sodium Chloride 50 ml @ 200 mls/hr Q6H IV 01/01/17 04:00 01/02/17 22:14 01/01/17 16:24 Sodium Acetate 100 meq/Dextrose 1,050 ml @ 100 mls/hr [id number] IV 01/01/17 16:15 01/02/17 08:00 01/01/17 16:24 Objective Remarks GENERAL PHYSICAL APPEARANCE: Mr. Chou is an elderly male. He is tall, heavyset. He appears to be in no acute distress. He appears to have a diffuse rash over his arms, face and legs. HEENT: Had is atraumatic, normocephalic. Conjunctivae are pale, sclerae are anicteric. EOMI. PERRLA. Oral exam - no pharyngeal erythema. NECK EXAM: No palpable cervical or supraclavicular lymphadenopathy. RESPIRATORY EXAM: Good air movement bilaterally. No added breath sounds. CARDIOVASCULAR EXAM: Regular rate and rhythm. S1, S2, without any obvious murmurs, rubs or gallops. ABDOMINAL EXAM: Obese belly, soft and nontender, nondistended. No palpable organ enlargement. LOWER EXTREMITIES: Bilateral pretibial edema. No calf tenderness. SPED TEACHER: No focal sensory or motor deficits. SKIN EXTREMITIES: He has an exfoliative rash noted over his arms, especially on his back and torso. Assessment/Plan Assessment Mr. 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 His disease is associated with very complex cytogenetics and unfortunately this predicts a poor outcome and high rates of relapse despite appropriate and aggressive treatment. He is status post induction remission therapy with Hyper-CVAD with Rituxan and intrathecal chemotherapy which was delivered in mid-October of 2016. 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 Luckily his renal function is back to baseline. He also developed fever, atrial fibrillation and a diffuse rash over the skin which persists. He comes in today for cycle #1 of consolidation therapy with Hyper-CVAD Arm-B which will consist of methotrexate and high-dose cyterabine. He has received outpatient Rituxan infusion last week at my [facility] office. Plan 1. 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 Bolus dose and methotrexate infusion to be administered on day 1. Currently receiving Cytarabine 2 g per metered squared to 12 hours 4 doses (as of right now he has received 3 out of 4 doses). Following that the patient will be initiated on Neupogen growth factor support. Leucovorin rescue, methotrexate level was 1.5 today. He will remain on alkalinizing agents including sodium acetate and sodium bicarbonate. I will be able to coordinate intrathecal cytarabine injection as an outpatient. 2. Skin rash: Seems to be greatly improved with corticosteroids. 3. For hypertension and A. fib he has been resumed on beta blockers. 4. Isolated episode of blood expression from the tip of the penis: Isolated event, no rashes, ulcers or lesions noted on clinical exam today. 12/31/2016: No evidence of recurrent bleeding. 5. Anemia: Hemoglobin 6.7 g/dL noted, he is asymptomatic. 2 unit packed red blood cell transfusion ordered for today. 6. Blood glucose noted to be 312 today. He will be initiated on bedside glucose monitoring before meals and before bedtime and will be initiated on an insulin aspartate sliding scale. Sukhwinder Rice MD Jan 01, 2017 17:51
[2017-01-01] MEDS: INSULIN NovoLIN REGULAR SUPPLEMENTAL SCALE SQ SCH (21:00)
[2017-01-02] MEDS: SODIUM ACETATE IV SCH ×2 (02:12)
[2017-01-02] MEDS: DEXTROSE IV SCH ×2 (02:12)
[2017-01-02 04:45] VITALS: BP 135/74; PULSE 67; RESP 14; TEMP 98.9; O2SAT 95
[2017-01-02] MEDS: SODIUM CHLORIDE 0.9% IV SCH ×4 (04:48→22:56)
[2017-01-02] MEDS: LEUCOVORIN CALCIUM IV SCH ×3 (04:48→16:46)
[2017-01-02] MEDS: LEVOTHYROXINE SODIUM 25 MCG TAB PO SCH (04:48)
[2017-01-02 05:21] LABS: AUTOMATED NEUTROPHIL # 13.9 TH/MM3 (1.8-7.7); BASOPHIL # 0.1 TH/MM3 (0-0.2); BASOPHIL % 0.7 % (0.0-2.0); HEMATOCRIT 27.4 % (39.0-51.0); HEMO FLAGS DIFF FINAL; LYMPH % 0.4 % (9.0-44.0); LYMPHOCYTE # 0.1 TH/MM3 (1.0-4.8); MEAN CELL VOLUME 92.8 FL (80.0-100.0); MEAN CORPUSCULAR HEMOGLOBIN 31.6 PG (27.0-34.0); MONO % 0.4 % (0.0-8.0); NEUT % 98.5 % (16.0-70.0); PLATELET COUNT 143 TH/MM3 (150-450); RED BLOOD COUNT 2.95 MIL/MM3 (4.50-5.90); RED CELL DISTRIBUTION WIDTH 21.6 % (11.6-17.2); WHITE BLOOD COUNT 14.1 TH/MM3 (4.0-11.0)
[2017-01-02 05:42] LABS: ALT (GPT) 38 U/L (12-78); ANION GAP 9 MEQ/L (5-15); AST (GOT) 8 U/L (15-37); BLOOD UREA NITROGEN 29 MG/DL (7-18); CHLORIDE 106 MEQ/L (98-107); GLOMERULAR FILTRATION RATE 59 ML/MIN (>89); POTASSIUM 3.5 MEQ/L (3.5-5.1); SODIUM (NA) 136 MEQ/L (136-145)
[2017-01-02 05:44] LABS: ALKALINE PHOSPHATASE 62 U/L (45-117); TOTAL BILIRUBIN ADULT 0.5 MG/DL (0.2-1.0)
--- NOTE | 2017-01-02 07:46 | HHI.PR ---
Subjective Remarks in no acute distress. denies pain. afebrile. no new complaints. Objective Vitals Vital Signs Date Time Temp Pulse Resp B/P (MAP) Pulse Ox O2 Delivery O2 Flow Rate FiO2 01/02/17 04:45 98.9 67 14 135/74 (94) 95 01/01/17 23:00 98.8 60 16 146/73 (97) 100 01/01/17 21:05 69 01/01/17 21:00 98.4 65 16 140/72 (94) 100 01/01/17 16:25 98.1 68 18 142/71 (94) 98 01/01/17 12:32 97.9 61 18 127/74 (91) 98 01/01/17 08:55 98.7 67 18 152/75 (100) 99 01/01/17 08:51 67 01/01/17 08:03 76 I/O 01/01/17 01/01/17 01/01/17 01/02/17 01/02/17 01/02/17 07:00 15:00 23:00 07:00 15:00 23:00 Intake Total 540 ml 352 ml 1038 ml 1880 ml Output Total 1250 ml 275 ml 1950 ml 1425 ml Balance -710 ml 77 ml -912 ml 455 ml Intake Oral 240 ml 480 ml IV Total 300 ml 352 ml 1038 ml 1400 ml Output Urine Total 1250 ml 275 ml 1950 ml 1425 ml # Voids 1 # Bowel Movements 3 1 Result Diagram: 01/02/17 0450 01/02/17 0450 Objective Remarks GENERAL: This is a well-nourished, well-developed patient, in no apparent distress. CARDIOVASCULAR: Regular rate and regular rhythm without murmurs, gallops, or rubs. RESPIRATORY: Clear to auscultation. Breath sounds equal bilaterally. No wheezes , rales, or rhonchi. GASTROINTESTINAL: Abdomen soft, non-tender, nondistended. Normal, active bowel sounds MUSCULOSKELETAL: Extremities without clubbing, cyanosis, or edema. NEURO: Alert & Oriented x4 to person, place, time, situation. Moves all ext x4 Medications and IVs Current Medications Sodium Chloride (NS Flush) 2 ml UNSCH PRN IV FLUSH FLUSH AFTER USING IV ACCESS ; Start 12/29/16 at 08:00; Status Cancel Sodium Chloride (NS Flush) 2 ml BID IV FLUSH Last administered on 12/29/16 10 :20; Start 12/29/16 at 09:00; Stop 12/29/16 at 12:20; Status DC Ondansetron HCl (Zofran Inj) 4 mg Q6H PRN IVP NAUSEA OR VOMITING; Start at 08:00; Status Cancel Metoclopramide HCl (Reglan Inj) 5 mg Q6H PRN IV PUSH NAUSEA OR VOMITING; Start 12/29/16 at 08:00 Prochlorperazine (Compazine Supp) 25 mg Q12H PRN RECTAL NAUSEA OR VOMITING; Start 12/29/16 at 08:00; Status Cancel Zolpidem Tartrate (Ambien) 5 mg HS PRN PO INSOMNIA; Start 12/29/16 at 21:00 Enoxaparin Sodium (Lovenox Inj) 40 mg Q24H SQ Last administered on 01/01/17 08:59; Start 12/29/16 at 09:00 Naloxone HCl (Narcan Inj) 0.4 mg UNSCH PRN IV PUSH SEE LABEL COMMENTS; Start 12/29/16 at 08:00; Status Cancel Senna/Docusate Sodium (Cindy-Colace) 1 tab BID PO ; Start 12/29/16 at 09:00; Stop 12/29/16 at 11:49; Status DC Magnesium Hydroxide (Milk Of Magnesia Liq) 30 ml Q12H PRN PO Mild constipation ; Start 12/29/16 at 08:00; Status Cancel Sennosides (Senokot) 17.2 mg Q12H PRN PO Moderate constipation; Start at 08:00; Status Cancel Bisacodyl (Dulcolax Supp) 10 mg DAILY PRN RECTAL SEVERE CONSITIPATION; Start 12/29/16 at 08:00; Status Cancel Lactulose (Lactulose Liq) 30 ml DAILY PRN PO SEVERE CONSITIPATION; Start 12/29 at 08:00; Status Cancel Prednisone (Deltasone) 20 mg DAILY PO Last administered on 01/01/17 08:53; Start 12/29/16 at 09:00 Pantoprazole Sodium (Protonix) 40 mg DAILY PO Last administered on 01/01/17 08:53; Start 12/29/16 at 09:00 Sodium Acetate 100 meq/Dextrose 1,050 ml @ 100 mls/hr [id number] IV Last administered on 01/01/17 04:46; Start 12/29/16 at 13:00; Stop 01/01/17 at 12 :00; Status DC Prednisolone Acetate (Pred Forte 1% Opth Susp) 2 DROPS TO BOTH EYES QID EACH EYE Last administered on 01/01/17 21:06; Start 12/29/16 at 13:00; Stop at 12:59 Sodium Bicarbonate (Sodium Bicarbonate) 1,300 mg QID PO Last administered on 21:05; Start 12/29/16 at 13:00; Stop 01/02/17 at 12:59 Acetazolamide (Diamox) 250 mg BID PO Last administered on 01/01/17 21:05; Start 12/29/16 at 21:00 Granisetron HCl (Kytril) 1 mg Q12H PO Last administered on 12/29/16 13:53; Start 12/29/16 at 13:00; Stop 12/30/16 at 08:38; Status DC Methylprednisolone Sodium Succinate (SoluMEDROL INJ) 50 mg Q12H IV PUSH Last administered on 12/29/16 13:53; Start 12/29/16 at 13:00; Stop 12/30/16 at 08 :39; Status DC Methotrexate Sodium 440 mg/ Dextrose 267.6 ml @ 133.8 mls/ hr ONCE ONCE IV Last administered on 12/30/16 09:58; Start 12/29/16 at 14:00; Stop 12/29/16 at 15:59; Status DC Methotrexate Sodium 1760 mg/ Dextrose 1,070.4 ml @ 48.655 mls/hr ONCE ONCE IV Last administered on 12/30/16 12:57; Start 12/29/16 at 16:00; Stop at 13:59; Status DC Cytarabine 4400 mg/Dextrose 250 ml @ 125 mls/hr Q12H IV ; Start 12/30/16 at 16 :00; Stop 12/31/16 at 09:42; Status DC Allopurinol (Zyloprim) 200 mg DAILY PO Last administered on 01/01/17 08:53; Start 12/30/16 at 09:00 Calcium/Vitamin D (Oscal-D 250-125) 500 mg Q12HR PO Last administered on 21:05; Start 12/29/16 at 21:00 Diltiazem HCl (Cardizem Cd) 240 mg DAILY PO Last administered on 01/01/17 08: 59; Start 12/30/16 at 09:00 Diphenhydramine HCl (Benadryl) 25 mg Q4H PRN PO SEE LABEL COMMENTS Last administered on 12/31/16 17:49; Start 12/29/16 at 11:00 Lactobacillus Acidophilus (Lactinex) 1 tab TID PO Last administered on 18:25; Start 12/29/16 at 13:00 Megestrol Acetate (Megace Liq) 400 mg DAILY PO ; Start 12/30/16 at 09:00 Metoprolol Tartrate (Lopressor) 25 mg Q12HR PO Last administered on 01/01/17 21:05; Start 12/29/16 at 21:00 Pantoprazole Sodium (Protonix) 20 mg DAILY PO ; Start 12/30/16 at 09:00; Stop 12/30/16 at 09:00; Status DC Hydrocortisone (Nutracort 1% Oint) 1 applic BID TOPICAL Last administered on 21:06; Start 12/29/16 at 13:00 Prednisone (Deltasone) 40 mg DAILY PO ; Start 12/29/16 at 11:15; Status UNV Sodium Chloride (NS Flush) 2 ml UNSCH PRN IV FLUSH FLUSH AFTER USING IV ACCESS Last administered on 12/31/16 04:07; Start 12/29/16 at 12:00 Sodium Chloride (NS Flush) 2 ml BID IV FLUSH Last administered on 01/01/17 21 :11; Start 12/29/16 at 21:00 Acetaminophen (Tylenol) 650 mg Q4H PRN PO TEMP > 100.4 Last administered on 09:08; Start 12/29/16 at 11:30 Ondansetron HCl (Zofran Inj) 4 mg Q6H PRN IVP NAUSEA OR VOMITING; Start at 11:30 Prochlorperazine (Compazine Supp) 25 mg Q12H PRN RECTAL NAUSEA OR VOMITING; Start 12/29/16 at 11:30 Acetaminophen (Tylenol) 650 mg Q6H PRN PO PAIN SCALE 1 TO 2; Start 12/29/16 at 11:30 Oxycodone/ Acetaminophen (Percocet 5-325 Mg) 1 tab Q6H PRN PO PAIN SCALE 3 TO 5; Start 12/29/16 at 11:30 Oxycodone/ Acetaminophen (Percocet 10-325 Mg) 1 tab Q6H PRN PO PAIN SCALE 6 TO 10; Start 12/29/16 at 11:30 Morphine Sulfate (Morphine Inj) 2 mg Q3H PRN IV PUSH Pain 3-5; if unable to take PO; Start 12/29/16 at 11:30 Morphine Sulfate (Morphine Inj) 4 mg Q3H PRN IV PUSH Pain 6-10;if unable to take PO; Start 12/29/16 at 11:30 Naloxone HCl (Narcan Inj) 0.4 mg UNSCH PRN IV PUSH SEE LABEL COMMENTS; Start 12/29/16 at 11:45 Senna/Docusate Sodium (Cindy-Colace) 1 tab BID PO Last administered on t 21:05; Start 12/29/16 at 21:00 Magnesium Hydroxide (Milk Of Magnesia Liq) 30 ml Q12H PRN PO Mild constipation ; Start 12/29/16 at 11:45 Sennosides (Senokot) 17.2 mg Q12H PRN PO Moderate constipation; Start at 11:45 Bisacodyl (Dulcolax Supp) 10 mg DAILY PRN RECTAL SEVERE CONSITIPATION; Start 12/29/16 at 11:45 Lactulose (Lactulose Liq) 30 ml DAILY PRN PO SEVERE CONSITIPATION; Start 12/29 at 11:45 Leucovorin Calcium 50 mg/ Sodium Chloride 50 ml @ 200 mls/hr ONCE ONCE IV ; Start 12/31/16 at 02:00; Stop 12/31/16 at 02:14; Status DC Leucovorin Calcium 25 mg/ Sodium Chloride 50 ml @ 200 mls/hr Q6H IV ; Start at 08:00; Stop 12/31/16 at 09:50; Status DC Granisetron HCl (Kytril) 1 mg Q12H PO Last administered on 12/30/16 08:48; Start 12/30/16 at 09:00; Stop 12/30/16 at 09:01; Status DC Methylprednisolone Sodium Succinate (SoluMEDROL INJ) 50 mg Q12H IV PUSH Last administered on 12/30/16 08:46; Start 12/30/16 at 09:00; Stop 12/30/16 at 09 :01; Status DC Levothyroxine Sodium (Synthroid) 25 mcg DAILY@0600 PO Last administered on 04:48; Start 12/31/16 at 06:00 Levothyroxine Sodium (Synthroid) 25 mcg ONCE ONCE PO Last administered on 13:00; Start 12/30/16 at 11:15; Stop 12/30/16 at 11:16; Status DC Granisetron HCl (Kytril) 1 mg Q12H PO Last administered on 01/01/17 20:00; Start 12/31/16 at 08:00; Stop 01/01/17 at 20:01; Status DC Methylprednisolone Sodium Succinate (SoluMEDROL INJ) 50 mg Q12H IV PUSH Last administered on 01/01/17 21:06; Start 12/31/16 at 08:00; Stop 01/01/17 at 20 :01; Status DC Sodium Chloride 250 ml @ 15 mls/hr ONCE ONCE IV Last administered on 15:00; Start 12/31/16 at 07:45; Stop 01/01/17 at 00:24; Status DC Acetaminophen (Tylenol) 650 mg Q4H PRN PO SEE LABEL COMMENTS Last administered on 12/31/16 17:50; Start 12/31/16 at 07:45; Stop 12/31/16 at 17:50; Status DC Diphenhydramine HCl (Benadryl) 25 mg Q4H PRN PO SEE LABEL COMMENTS; Start at 07:45 Cytarabine 4400 mg/Dextrose 250 ml @ 125 mls/hr Q12H IV Last administered on 01/01/17 23:01; Start 12/31/16 at 11:00; Stop 01/02/17 at 00:59; Status DC Leucovorin Calcium 50 mg/ Sodium Chloride 50 ml @ 200 mls/hr ONCE ONCE IV Last administered on 12/31/16 22:00; Start 12/31/16 at 22:00; Stop 12/31/16 at 22:14; Status DC Leucovorin Calcium 25 mg/ Sodium Chloride 50 ml @ 200 mls/hr Q6H IV Last administered on 01/02/17 04:48; Start 01/01/17 at 04:00; Stop 01/02/17 at 22 :14 Potassium Chloride (KCl) 20 meq ONCE ONCE PO Last administered on 01/01/17 08:53; Start 01/01/17 at 07:45; Stop 01/01/17 at 07:46; Status DC Sodium Acetate 100 meq/Dextrose 1,050 ml @ 100 mls/hr [id number] IV Last administered on 01/02/17 02:12; Start 01/01/17 at 16:15; Stop 01/02/17 at 08 :00 Insulin Human Regular (NovoLIN R SUPPLEMENTAL SCALE) 1 ACHS SLIDING SCALE SQ Last administered on 01/01/17 21:00; Start 01/01/17 at 21:00 A/P Problem List: (1) History of chemotherapy ICD Code: Z92.21 - Personal history of antineoplastic chemotherapy (2) Leukemia ICD Code: C95.90 - Leukemia, unspecified not having achieved remission (3) Rash and nonspecific skin eruption ICD Code: R21 - Rash and other nonspecific skin eruption (4) Tumor lysis syndrome ICD Code: E88.3 - Tumor lysis syndrome (5) Atrial fibrillation ICD Code: I48.91 - Unspecified atrial fibrillation Status: Acute (6) Acute kidney injury ICD Code: N17.9 - Acute kidney failure, unspecified Status: Acute (7) Hypertension ICD Code: I10 - Essential (primary) hypertension Status: Chronic Assessment and Plan A/P B-cell acute lymphoblastic leukemia-on chemotherapy per Dr. Rice Chronic skin rash- continue steroids Atrial fibrillation by history we'll continue on his beta krystina and calcium channel krystina for rate control anemia- due to chemo- transfused with PRBC- H/H improved- continue to monitor. hyperglycemia- steroid-induced; continue with accu-check and SSI hypothyroidism; continue synthroid mild hypokalemia; replaced. DVT prophylaxis with subq Tabitha Smith MD Jan 02, 2017 07:46
[2017-01-02] MEDS: INSULIN NovoLIN REGULAR SUPPLEMENTAL SCALE SQ SCH ×4 (08:00→20:41)
[2017-01-02] MEDS ORDERED: ENOXAPARIN SODIUM 40 MG/0.4 ML SYRINGE SQ SCH (08:45)
[2017-01-02] MEDS: HYDROCORTISONE 1% OINT 30 GM TUBE TOPICAL SCH ×2 (09:00→20:42)
[2017-01-02] MEDS: MEGESTROL ACETATE SUSP 400 MG/10 ML CUP PO SCH (09:00)
--- NOTE | 2017-01-02 09:20 | PD.ONC.PN ---
Subjective Subjective Remarks Patient seen and examined, vital signs, medications, labs and chemotherapy administration orders reviewed. Subjectively; he reports feeling well, he denies fevers, chills, night sweats or overt bleeding. He does report his skin seems to be a little bit more red today than it has been. Objective Data Date Time Temp Pulse Resp B/P (MAP) Pulse Ox O2 Delivery O2 Flow Rate FiO2 01/02/17 04:45 98.9 67 14 135/74 (94) 95 01/01/17 23:00 98.8 60 16 146/73 (97) 100 01/01/17 21:05 69 01/01/17 21:00 98.4 65 16 140/72 (94) 100 01/01/17 16:25 98.1 68 18 142/71 (94) 98 01/01/17 12:32 97.9 61 18 127/74 (91) 98 01/02/17 01/02/17 01/02/17 07:00 15:00 23:00 Intake Total 1880 ml Output Total 1425 ml Balance 455 ml Result Diagram: 01/02/17 0450 01/02/17 0450 Laboratory Results Laboratory Tests Test 01/01/17 10:30 01/01/17 21:15 01/02/17 04:50 01/02/17 06:32 Urine pH 8.0 8.0 White Blood Count 14.1 TH/MM3 Red Blood Count 2.95 MIL/MM3 Hemoglobin 9.3 GM/DL Hematocrit 27.4 % Mean Corpuscular Volume 92.8 FL Mean Corpuscular Hemoglobin 31.6 PG Mean Corpuscular Hemoglobin Concent 34.0 % Red Cell Distribution Width 21.6 % Platelet Count 143 TH/MM3 Mean Platelet Volume 7.2 FL Neutrophils (%) (Auto) 98.5 % Lymphocytes (%) (Auto) 0.4 % Monocytes (%) (Auto) 0.4 % Eosinophils (%) (Auto) 0.0 % Basophils (%) (Auto) 0.7 % Neutrophils # (Auto) 13.9 TH/MM3 Lymphocytes # (Auto) 0.1 TH/MM3 Monocytes # (Auto) 0.0 TH/MM3 Eosinophils # (Auto) 0.0 TH/MM3 Basophils # (Auto) 0.1 TH/MM3 CBC Comment DIFF FINAL Differential Comment Blood Urea Nitrogen 29 MG/DL Creatinine 1.21 MG/DL Random Glucose 273 MG/DL Total Protein 5.7 GM/DL Albumin 2.5 GM/DL Calcium Level 7.7 MG/DL Alkaline Phosphatase 62 U/L Aspartate Amino Transf (AST/SGOT) 8 U/L Alanine Aminotransferase (ALT/SGPT) 38 U/L Total Bilirubin 0.5 MG/DL Sodium Level 136 MEQ/L Potassium Level 3.5 MEQ/L Chloride Level 106 MEQ/L Carbon Dioxide Level 21.0 MEQ/L Anion Gap 9 MEQ/L Estimat Glomerular Filtration Rate 59 ML/MIN Administered Medications Medications (Trade) Dose Ordered Sig/Daniel Route PRN Reason Start Time Stop Time Status Last Admin Dose Admin Enoxaparin Sodium (Lovenox Inj) 40 mg Q24H SQ 12/29/16 09:00 01/01/17 08:59 Prednisone (Deltasone) 20 mg DAILY PO 12/29/16 09:00 01/01/17 08:53 Pantoprazole Sodium (Protonix) 40 mg DAILY PO 12/29/16 09:00 01/01/17 08:53 Prednisolone Acetate (Pred Forte 1% Opth Susp) 2 DROPS TO BOTH EYES QID EACH EYE 12/29/16 13:00 01/03/17 12:59 01/01/17 21:06 Sodium Bicarbonate (Sodium Bicarbonate) 1,300 mg QID PO 12/29/16 13:00 01/02/17 12:59 01/01/17 21:05 Acetazolamide (Diamox) 250 mg BID PO 12/29/16 21:00 01/01/17 21:05 Allopurinol (Zyloprim) 200 mg DAILY PO 12/30/16 09:00 01/01/17 08:53 Calcium/Vitamin D (Oscal-D 250-125) 500 mg Q12HR PO 12/29/16 21:00 01/01/17 21:05 Diltiazem HCl (Cardizem Cd) 240 mg DAILY PO 12/30/16 09:00 01/01/17 08:59 Diphenhydramine HCl (Benadryl) 25 mg Q4H PRN PO SEE LABEL COMMENTS 12/29/16 11:00 12/31/16 17:49 Lactobacillus Acidophilus (Lactinex) 1 tab TID PO 12/29/16 13:00 01/01/17 18:25 Metoprolol Tartrate (Lopressor) 25 mg Q12HR PO 12/29/16 21:00 01/01/17 21:05 Hydrocortisone (Nutracort 1% Oint) 1 applic BID TOPICAL 12/29/16 13:00 01/01/17 21:06 Sodium Chloride (NS Flush) 2 ml UNSCH PRN IV FLUSH FLUSH AFTER USING IV ACCESS 12/29/16 12:00 12/31/16 04:07 Sodium Chloride (NS Flush) 2 ml BID IV FLUSH 12/29/16 21:00 01/01/17 21:11 Acetaminophen (Tylenol) 650 mg Q4H PRN PO TEMP > 100.4 12/29/16 11:30 12/30/16 09:08 Senna/Docusate Sodium (Cindy-Colace) 1 tab BID PO 12/29/16 21:00 01/01/17 21:05 Levothyroxine Sodium (Synthroid) 25 mcg DAILY@0600 PO 12/31/16 06:00 01/02/17 04:48 Leucovorin Calcium 25 mg/ Sodium Chloride 50 ml @ 200 mls/hr Q6H IV 01/01/17 04:00 01/02/17 22:14 01/02/17 04:48 Insulin Human Regular (NovoLIN R SUPPLEMENTAL SCALE) 1 ACHS SLIDING SCALE SQ 01/01/17 21:00 01/01/17 21:00 Objective Remarks GENERAL PHYSICAL APPEARANCE: Mr. Chou is an elderly male. He is tall, heavyset. He appears to be in no acute distress. He appears to have a diffuse rash over his arms, face and legs. HEENT: Had is atraumatic, normocephalic. Conjunctivae are pale, sclerae are anicteric. EOMI. PERRLA. Oral exam - no pharyngeal erythema. NECK EXAM: No palpable cervical or supraclavicular lymphadenopathy. RESPIRATORY EXAM: Good air movement bilaterally. No added breath sounds. CARDIOVASCULAR EXAM: Regular rate and rhythm. S1, S2, without any obvious murmurs, rubs or gallops. ABDOMINAL EXAM: Obese belly, soft and nontender, nondistended. No palpable organ enlargement. LOWER EXTREMITIES: Bilateral pretibial edema. No calf tenderness. LINEN ATTENDANT: No focal sensory or motor deficits. SKIN EXTREMITIES: He has an exfoliative rash noted over his arms, especially on his back and torso. Assessment/Plan Assessment Mr. 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 His disease is associated with very complex cytogenetics and unfortunately this predicts a poor outcome and high rates of relapse despite appropriate and aggressive treatment. He is status post induction remission therapy with Hyper-CVAD with Rituxan and intrathecal chemotherapy which was delivered in mid-October of 2016. 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 Luckily his renal function is back to baseline. He also developed fever, atrial fibrillation and a diffuse rash over the skin which persists. He comes in today for cycle #1 of consolidation therapy with Hyper-CVAD Arm-B which will consist of methotrexate and high-dose cyterabine. He has received outpatient Rituxan infusion last week at my [facility] office. Plan 1. 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 Bolus dose and methotrexate infusion to be administered on day 1. Currently receiving Cytarabine 2 grams per metered squared to 12 hours 4 doses (as of right now he has received 3 out of 4 doses). Following that the patient will be initiated on Neupogen growth factor support. Leucovorin rescue, methotrexate level was 1.5 today. He will remain on alkalinizing agents including sodium acetate and sodium bicarbonate. I will be able to coordinate intrathecal cytarabine injection as an outpatient. 2. Skin rash: Seems to be greatly improved with corticosteroids. 3. For hypertension and A. fib he has been resumed on beta blockers. 4. Isolated episode of blood expression from the tip of the penis: Isolated event, no rashes, ulcers or lesions noted on clinical exam today. 12/31/2016: No evidence of recurrent bleeding. 5. Anemia: Hemoglobin 6.7 g/dL noted, he is asymptomatic. 2 unit packed red blood cell transfusion ordered for today. 6. Blood glucose noted to be 273 this morning. He will be initiated on bedside glucose monitoring before meals and before bedtime and will be initiated on an insulin regular sliding scale as well as long acting insulin. 7. Lovenox 40mg sq daily for DVT prophylaxis. Sukhwinder Rice MD Jan 02, 2017 09:20
[2017-01-02] MEDS: DOCUSATE SODIUM 50 MG/SENNA 8.6 MG TAB PO SCH ×2 (09:37→20:41)
[2017-01-02] MEDS: acetaZOLAMIDE 250 MG TAB PO SCH ×2 (09:38→20:39)
[2017-01-02] MEDS: METOPROLOL TARTRATE 25 MG TAB PO SCH ×2 (09:38→20:40)
[2017-01-02] MEDS: CALCIUM/VITAMIN D 250 MG/125 U TAB PO SCH ×2 (09:38→20:41)
[2017-01-02] MEDS: ALLOPURINOL 100 MG TAB PO SCH (09:38)
[2017-01-02] MEDS: predniSONE 20 MG TAB PO SCH (09:38)
[2017-01-02] MEDS: PANTOPRAZOLE SOD 40 MG DELAYED RELEASE TAB PO SCH (09:38)
[2017-01-02] MEDS: SODIUM BICARBONATE 650 MG TAB PO SCH (09:38)
[2017-01-02] MEDS: DILTIAZEM-CD 240 MG CAP ER PO SCH (09:38)
[2017-01-02] MEDS: LACTOBACILLUS ACIDOPHILUS TAB PO SCH ×3 (09:38→19:49)
[2017-01-02] MEDS: prednisoLONE ACETATE 1% OPHT SUSP 5 ML BTL EACH EYE SCH ×4 (09:39→20:39)
[2017-01-02] MEDS: SODIUM CHLORIDE 0.9% FLUSH 10 ML FLUSH IV FLUSH SCH ×2 (09:39→20:42)
[2017-01-02] MEDS: INSULIN DETEMIR 100 UNITS/ML VIAL SQ SCH ×2 (09:40→21:00)
[2017-01-02] MEDS: ENOXAPARIN SODIUM 40 MG/0.4 ML SYRINGE SQ SCH (09:40)
[2017-01-02 12:45] VITALS: BP 158/76; PULSE 70; RESP 20; TEMP 98.6; O2SAT 100
[2017-01-02 16:36] VITALS: BP 170/77; PULSE 86; RESP 20; TEMP 99.3
[2017-01-02] MEDS: ACETAMINOPHEN 325 MG TAB PO PRN (17:18)
[2017-01-02] MEDS ORDERED: LEUCOVORIN INJ 50 MG in SODIUM CHLORIDE 0.9% INJ 50 ML IV SCH ×3 (18:15→20:00)
[2017-01-02 18:22] VITALS: BP 134/66; TEMP 100
[2017-01-02 20:00] VITALS: BP 151/63; PULSE 102; PULSE 112; RESP 20; TEMP 99.5; O2SAT 99
[2017-01-02] MEDS ORDERED: CEFEPIME INJ 2,000 MG in SODIUM CHLORIDE 0.9% INJ 100 ML IV SCH (21:00)
[2017-01-02 21:35] VITALS: O2SAT 98
[2017-01-02] MEDS: LEUCOVORIN IV SCH (22:56)
[2017-01-03] VITALS (8 sets, daily range): BP systolic 108–164; BP diastolic 64–82; PULSE 90–117; RESP 18–22; TEMP 98.7–103; O2SAT 98–100
[2017-01-03] MEDS: ACETAMINOPHEN 325 MG TAB PO PRN (00:11)
[2017-01-03] MEDS: oxyCODONE/ACETAMINOPHEN 10 MG/325 MG TAB PO PRN ×3 (03:38→18:43)
[2017-01-03] MEDS: LEVOTHYROXINE SODIUM 25 MCG TAB PO SCH (05:51)
[2017-01-03] MEDS: SODIUM CHLORIDE 0.9% IV SCH ×3 (05:51→17:36)
[2017-01-03] MEDS: LEUCOVORIN IV SCH (05:51)
[2017-01-03] MEDS: MORPHINE SULFATE 4 MG/ML INJ IV PUSH PRN ×4 (06:02→22:15)
[2017-01-03] MEDS ORDERED: METOPROLOL TARTRATE 5 MG/5 ML VIAL IV PUSH PRN (06:45)
[2017-01-03 07:41] LABS: AUTOMATED NEUTROPHIL # 5.8 TH/MM3 (1.8-7.7); BASOPHIL % 0.1 % (0.0-2.0); EOSINOPHIL % 0.1 % (0.0-4.0); HEMATOCRIT 31.3 % (39.0-51.0); LYMPH % 0.5 % (9.0-44.0); MEAN CELL VOLUME 94.6 FL (80.0-100.0); MEAN CORPUSCULAR HGB CONC 33.9 % (32.0-36.0); MONO % 0.1 % (0.0-8.0); NEUT % 99.2 % (16.0-70.0); PLATELET COUNT 69 TH/MM3 (150-450); RED BLOOD COUNT 3.31 MIL/MM3 (4.50-5.90); RED CELL DISTRIBUTION WIDTH 21.1 % (11.6-17.2); WHITE BLOOD COUNT 5.8 TH/MM3 (4.0-11.0)
[2017-01-03] MEDS: INSULIN NovoLIN REGULAR SUPPLEMENTAL SCALE SQ SCH ×4 (08:00→21:00)
[2017-01-03 08:04] LABS: BICARBONATE 17.8 MEQ/L (21.0-32.0); MAGNESIUM 1.9 MG/DL (1.5-2.5); POTASSIUM 3.4 MEQ/L (3.5-5.1)
[2017-01-03 08:06] LABS: HEMO FLAGS AUTO DIFF
[2017-01-03 08:08] LABS: PLATELET ESTIMATE SMEAR LOW (NORMAL); PLATELET MORPHOLOGY NORMAL (NORMAL); SCAN/DIFF AUTO DIFF CONFIRMED
--- NOTE | 2017-01-03 08:38 | HHI.PR ---
Subjective Remarks f/u; ALL doesn't feel today. was febrile and tachycardic last night. Tmax 103. no cough or urinary complaints. feels weak today. Objective Vitals Vital Signs Date Time Temp Pulse Resp B/P (MAP) Pulse Ox O2 Delivery O2 Flow Rate FiO2 01/03/17 04:00 98.7 108 20 164/64 (97) 99 01/03/17 01:00 100.1 01/03/17 00:00 103.0 100 20 154/72 (99) 100 01/02/17 21:35 98 01/02/17 20:00 102 01/02/17 20:00 99.5 112 20 151/63 (92) 99 01/02/17 18:22 100.0 134/66 (88) 01/02/17 16:36 99.3 86 20 170/77 (108) 01/02/17 12:45 98.6 70 20 158/76 (103) 100 I/O 01/02/17 01/02/17 01/02/17 01/03/17 01/03/17 01/03/17 07:00 15:00 23:00 07:00 15:00 23:00 Intake Total 1880 ml 53 ml 1080 ml Output Total 1425 ml 275 ml 800 ml 420 ml Balance 455 ml -222 ml 280 ml -420 ml Intake Oral 480 ml 1080 ml IV Total 1400 ml 53 ml Output Urine Total 1425 ml 275 ml 800 ml 420 ml # Bowel Movements 2 Result Diagram: 01/03/1772001/03/17720 Objective Remarks GENERAL: This is a well-nourished, well-developed patient, in no apparent distress. CARDIOVASCULAR: Regular rate and regular rhythm without murmurs, gallops, or rubs. RESPIRATORY: Clear to auscultation. Breath sounds equal bilaterally. No wheezes , rales, or rhonchi. GASTROINTESTINAL: Abdomen soft, non-tender, nondistended. Normal, active bowel sounds MUSCULOSKELETAL: Extremities without clubbing, cyanosis, or edema. NEURO: Alert & Oriented x4 to person, place, time, situation. Moves all ext x4 Medications and IVs Current Medications Sodium Chloride (NS Flush) 2 ml UNSCH PRN IV FLUSH FLUSH AFTER USING IV ACCESS ; Start 12/29/16 at 08:00; Status Cancel Sodium Chloride (NS Flush) 2 ml BID IV FLUSH Last administered on 12/29/16 10 :20; Start 12/29/16 at 09:00; Stop 12/29/16 at 12:20; Status DC Ondansetron HCl (Zofran Inj) 4 mg Q6H PRN IVP NAUSEA OR VOMITING; Start at 08:00; Status Cancel Metoclopramide HCl (Reglan Inj) 5 mg Q6H PRN IV PUSH NAUSEA OR VOMITING; Start 12/29/16 at 08:00 Prochlorperazine (Compazine Supp) 25 mg Q12H PRN RECTAL NAUSEA OR VOMITING; Start 12/29/16 at 08:00; Status Cancel Zolpidem Tartrate (Ambien) 5 mg HS PRN PO INSOMNIA; Start 12/29/16 at 21:00 Enoxaparin Sodium (Lovenox Inj) 40 mg Q24H SQ Last administered on 01/02/17 09:40; Start 12/29/16 at 09:00 Naloxone HCl (Narcan Inj) 0.4 mg UNSCH PRN IV PUSH SEE LABEL COMMENTS; Start 12/29/16 at 08:00; Status Cancel Senna/Docusate Sodium (Cindy-Colace) 1 tab BID PO ; Start 12/29/16 at 09:00; Stop 12/29/16 at 11:49; Status DC Magnesium Hydroxide (Milk Of Magnesia Liq) 30 ml Q12H PRN PO Mild constipation ; Start 12/29/16 at 08:00; Status Cancel Sennosides (Senokot) 17.2 mg Q12H PRN PO Moderate constipation; Start at 08:00; Status Cancel Bisacodyl (Dulcolax Supp) 10 mg DAILY PRN RECTAL SEVERE CONSITIPATION; Start 12/29/16 at 08:00; Status Cancel Lactulose (Lactulose Liq) 30 ml DAILY PRN PO SEVERE CONSITIPATION; Start 12/29 at 08:00; Status Cancel Prednisone (Deltasone) 20 mg DAILY PO Last administered on 01/02/17 09:38; Start 12/29/16 at 09:00 Pantoprazole Sodium (Protonix) 40 mg DAILY PO Last administered on 01/02/17 09:38; Start 12/29/16 at 09:00 Sodium Acetate 100 meq/Dextrose 1,050 ml @ 100 mls/hr [id number] IV Last administered on 01/01/17 04:46; Start 12/29/16 at 13:00; Stop 01/01/17 at 12 :00; Status DC Prednisolone Acetate (Pred Forte 1% Opth Susp) 2 DROPS TO BOTH EYES QID EACH EYE Last administered on 01/02/17 20:39; Start 12/29/16 at 13:00; Stop at 12:59 Sodium Bicarbonate (Sodium Bicarbonate) 1,300 mg QID PO Last administered on 09:38; Start 12/29/16 at 13:00; Stop 01/02/17 at 12:59; Status DC Acetazolamide (Diamox) 250 mg BID PO Last administered on 01/02/17 20:39; Start 12/29/16 at 21:00 Granisetron HCl (Kytril) 1 mg Q12H PO Last administered on 12/29/16 13:53; Start 12/29/16 at 13:00; Stop 12/30/16 at 08:38; Status DC Methylprednisolone Sodium Succinate (SoluMEDROL INJ) 50 mg Q12H IV PUSH Last administered on 12/29/16 13:53; Start 12/29/16 at 13:00; Stop 12/30/16 at 08 :39; Status DC Methotrexate Sodium 440 mg/ Dextrose 267.6 ml @ 133.8 mls/ hr ONCE ONCE IV Last administered on 12/30/16 09:58; Start 12/29/16 at 14:00; Stop 12/29/16 at 15:59; Status DC Methotrexate Sodium 1760 mg/ Dextrose 1,070.4 ml @ 48.655 mls/hr ONCE ONCE IV Last administered on 12/30/16 12:57; Start 12/29/16 at 16:00; Stop at 13:59; Status DC Cytarabine 4400 mg/Dextrose 250 ml @ 125 mls/hr Q12H IV ; Start 12/30/16 at 16 :00; Stop 12/31/16 at 09:42; Status DC Allopurinol (Zyloprim) 200 mg DAILY PO Last administered on 01/02/17 09:38; Start 12/30/16 at 09:00 Calcium/Vitamin D (Oscal-D 250-125) 500 mg Q12HR PO Last administered on 20:41; Start 12/29/16 at 21:00 Diltiazem HCl (Cardizem Cd) 240 mg DAILY PO Last administered on 01/02/17 09: 38; Start 12/30/16 at 09:00 Diphenhydramine HCl (Benadryl) 25 mg Q4H PRN PO SEE LABEL COMMENTS Last administered on 12/31/16 17:49; Start 12/29/16 at 11:00 Lactobacillus Acidophilus (Lactinex) 1 tab TID PO Last administered on 19:49; Start 12/29/16 at 13:00 Megestrol Acetate (Megace Liq) 400 mg DAILY PO ; Start 12/30/16 at 09:00 Metoprolol Tartrate (Lopressor) 25 mg Q12HR PO Last administered on 01/02/17 20:40; Start 12/29/16 at 21:00 Pantoprazole Sodium (Protonix) 20 mg DAILY PO ; Start 12/30/16 at 09:00; Stop 12/30/16 at 09:00; Status DC Hydrocortisone (Nutracort 1% Oint) 1 applic BID TOPICAL Last administered on 20:42; Start 12/29/16 at 13:00 Prednisone (Deltasone) 40 mg DAILY PO ; Start 12/29/16 at 11:15; Status UNV Sodium Chloride (NS Flush) 2 ml UNSCH PRN IV FLUSH FLUSH AFTER USING IV ACCESS Last administered on 12/31/16 04:07; Start 12/29/16 at 12:00 Sodium Chloride (NS Flush) 2 ml BID IV FLUSH Last administered on 01/02/17 20 :42; Start 12/29/16 at 21:00 Acetaminophen (Tylenol) 650 mg Q4H PRN PO TEMP > 100.4 Last administered on 00:11; Start 12/29/16 at 11:30 Ondansetron HCl (Zofran Inj) 4 mg Q6H PRN IVP NAUSEA OR VOMITING; Start at 11:30 Prochlorperazine (Compazine Supp) 25 mg Q12H PRN RECTAL NAUSEA OR VOMITING; Start 12/29/16 at 11:30 Acetaminophen (Tylenol) 650 mg Q6H PRN PO PAIN SCALE 1 TO 2; Start 12/29/16 at 11:30 Oxycodone/ Acetaminophen (Percocet 5-325 Mg) 1 tab Q6H PRN PO PAIN SCALE 3 TO 5; Start 12/29/16 at 11:30 Oxycodone/ Acetaminophen (Percocet 10-325 Mg) 1 tab Q6H PRN PO PAIN SCALE 6 TO 10 Last administered on 01/03/17 03:38; Start 12/29/16 at 11:30 Morphine Sulfate (Morphine Inj) 2 mg Q3H PRN IV PUSH Pain 3-5; if unable to take PO; Start 12/29/16 at 11:30 Morphine Sulfate (Morphine Inj) 4 mg Q3H PRN IV PUSH Pain 6-10;if unable to take PO Last administered on 01/03/17 06:02; Start 12/29/16 at 11:30 Naloxone HCl (Narcan Inj) 0.4 mg UNSCH PRN IV PUSH SEE LABEL COMMENTS; Start 12/29/16 at 11:45 Senna/Docusate Sodium (Cindy-Colace) 1 tab BID PO Last administered on 09:37; Start 12/29/16 at 21:00 Magnesium Hydroxide (Milk Of Magnesia Liq) 30 ml Q12H PRN PO Mild constipation ; Start 12/29/16 at 11:45 Sennosides (Senokot) 17.2 mg Q12H PRN PO Moderate constipation; Start at 11:45 Bisacodyl (Dulcolax Supp) 10 mg DAILY PRN RECTAL SEVERE CONSITIPATION; Start 12/29/16 at 11:45 Lactulose (Lactulose Liq) 30 ml DAILY PRN PO SEVERE CONSITIPATION; Start 12/29 at 11:45 Leucovorin Calcium 50 mg/ Sodium Chloride 50 ml @ 200 mls/hr ONCE ONCE IV ; Start 12/31/16 at 02:00; Stop 12/31/16 at 02:14; Status DC Leucovorin Calcium 25 mg/ Sodium Chloride 50 ml @ 200 mls/hr Q6H IV ; Start at 08:00; Stop 12/31/16 at 09:50; Status DC Granisetron HCl (Kytril) 1 mg Q12H PO Last administered on 12/30/16 08:48; Start 12/30/16 at 09:00; Stop 12/30/16 at 09:01; Status DC Methylprednisolone Sodium Succinate (SoluMEDROL INJ) 50 mg Q12H IV PUSH Last administered on 12/30/16 08:46; Start 12/30/16 at 09:00; Stop 12/30/16 at 09 :01; Status DC Levothyroxine Sodium (Synthroid) 25 mcg DAILY@0600 PO Last administered on 05:51; Start 12/31/16 at 06:00 Levothyroxine Sodium (Synthroid) 25 mcg ONCE ONCE PO Last administered on 13:00; Start 12/30/16 at 11:15; Stop 12/30/16 at 11:16; Status DC Granisetron HCl (Kytril) 1 mg Q12H PO Last administered on 01/01/17 20:00; Start 12/31/16 at 08:00; Stop 01/01/17 at 20:01; Status DC Methylprednisolone Sodium Succinate (SoluMEDROL INJ) 50 mg Q12H IV PUSH Last administered on 01/01/17 21:06; Start 12/31/16 at 08:00; Stop 01/01/17 at 20 :01; Status DC Sodium Chloride 250 ml @ 15 mls/hr ONCE ONCE IV Last administered on 15:00; Start 12/31/16 at 07:45; Stop 01/01/17 at 00:24; Status DC Acetaminophen (Tylenol) 650 mg Q4H PRN PO SEE LABEL COMMENTS Last administered on 12/31/16 17:50; Start 12/31/16 at 07:45; Stop 12/31/16 at 17:50; Status DC Diphenhydramine HCl (Benadryl) 25 mg Q4H PRN PO SEE LABEL COMMENTS; Start at 07:45 Cytarabine 4400 mg/Dextrose 250 ml @ 125 mls/hr Q12H IV Last administered on 01/01/17 23:01; Start 12/31/16 at 11:00; Stop 01/02/17 at 00:59; Status DC Leucovorin Calcium 50 mg/ Sodium Chloride 50 ml @ 200 mls/hr ONCE ONCE IV Last administered on 12/31/16 22:00; Start 12/31/16 at 22:00; Stop 12/31/16 at 22:14; Status DC Leucovorin Calcium 25 mg/ Sodium Chloride 50 ml @ 200 mls/hr Q6H IV Last administered on 01/02/17 16:46; Start 01/01/17 at 04:00; Stop 01/02/17 at 18 :10; Status DC Potassium Chloride (KCl) 20 meq ONCE ONCE PO Last administered on 01/01/17 08:53; Start 01/01/17 at 07:45; Stop 01/01/17 at 07:46; Status DC Sodium Acetate 100 meq/Dextrose 1,050 ml @ 100 mls/hr [id number] IV Last administered on 01/02/17 02:12; Start 01/01/17 at 16:15; Stop 01/02/17 at 08 :00; Status DC Insulin Human Regular (NovoLIN R SUPPLEMENTAL SCALE) 1 ACHS SLIDING SCALE SQ Last administered on 01/02/17 16:54; Start 01/01/17 at 21:00 Enoxaparin Sodium (Lovenox Inj) 40 mg Q24H SQ ; Start 01/02/17 at 08:45; Stop 01/02/17 at 08:45; Status DC Insulin Detemir (Levemir Inj) 5 units Q12HR SQ Last administered on 01/02/17 09:40; Start 01/02/17 at 09:00 Leucovorin Calcium 50 mg/ Sodium Chloride 50 ml @ 200 mls/hr Q6H IV ; Start at 18:15; Stop 01/02/17 at 18:15; Status DC Leucovorin Calcium 50 mg/ Sodium Chloride 50 ml @ 200 mls/hr Q6H IV ; Start at 19:00; Stop 01/02/17 at 19:00; Status DC Leucovorin Calcium 50 mg/ Sodium Chloride 50 ml @ 200 mls/hr Q6H IV ; Start at 20:00; Stop 01/02/17 at 20:00; Status DC Cefepime HCl 2000 mg/Sodium Chloride 100 ml @ 200 mls/hr Q12H IV Last administered on 01/02/17t 21:54; Start 01/02/17 at 21:00; Stop 01/03/17 at 08 :09; Status DC Leucovorin Calcium 25 mg/ Sodium Chloride 50 ml @ 200 mls/hr Q6H IV Last administered on 01/03/17t 05:51; Start 01/02/17 at 23:00; Stop 01/03/17 at 05 :14; Status DC Metoprolol Tartrate (Lopressor Inj) 5 mg ONCE PRN IV PUSH sustained HR > 130 bpm; Start 01/03/17 at 06:45; Stop 01/03/17 at 08:45 Vancomycin HCl 1250 mg/Sodium Chloride 262.5 ml @ 262.5 mls/ hr Q12H IV ; Start 01/03/17 at 08:15; Status UNV Cefepime HCl 2000 mg/Sodium Chloride 100 ml @ 200 mls/hr Q8HR IV ; Start 01/03 at 14:00; Status UNV A/P Problem List: (1) History of chemotherapy ICD Code: Z92.21 - Personal history of antineoplastic chemotherapy (2) Leukemia ICD Code: C95.90 - Leukemia, unspecified not having achieved remission (3) Rash and nonspecific skin eruption ICD Code: R21 - Rash and other nonspecific skin eruption (4) Tumor lysis syndrome ICD Code: E88.3 - Tumor lysis syndrome (5) Atrial fibrillation ICD Code: I48.91 - Unspecified atrial fibrillation Status: Acute (6) Acute kidney injury ICD Code: N17.9 - Acute kidney failure, unspecified Status: Acute (7) Hypertension ICD Code: I10 - Essential (primary) hypertension Status: Chronic Assessment and Plan A/P B-cell acute lymphoblastic leukemia-on chemotherapy per Dr. Rice fever/ immunocompromised- T max 103; started on Vanco and Cefepime- blood cultures obtained- ID consulted. acute kidney injury; start on IV fluid- monitor I/O and renal function. Chronic skin rash- continue steroids Atrial fibrillation with RVR; continue on his beta krystina and calcium channel krystina for rate control consider increasing BB if tachycardia persists. anemia- due to chemo- transfused with PRBC- H/H improved- continue to monitor. thrombocytopenia; due to chemo- oncology following. hyperglycemia- steroid-induced; continue with accu-check and SSI hypothyroidism; continue synthroid mild hypokalemia; will replace. DVT prophylaxis with SCD's- ( Lovenox on hold) Tabitha Jimenez MD Jan 03, 2017 08:38
[2017-01-03] MEDS ORDERED: POTASSIUM CHLORIDE 10 MEQ CONTROLLED RELEASE TAB PO ONE (09:00)
[2017-01-03] MEDS: HYDROCORTISONE 1% OINT 30 GM TUBE TOPICAL SCH ×2 (09:00→22:47)
[2017-01-03] MEDS ORDERED: SODIUM CHLOR 0.9% 1000 ML INJ 1,000 ML IV ONE (09:00)
[2017-01-03] MEDS: MEGESTROL ACETATE SUSP 400 MG/10 ML CUP PO SCH ×2 (09:00→09:08)
[2017-01-03] MEDS: INSULIN DETEMIR 100 UNITS/ML VIAL SQ SCH ×2 (09:00→21:00)
[2017-01-03] MEDS: ALLOPURINOL 100 MG TAB PO SCH (09:08)
[2017-01-03] MEDS: PANTOPRAZOLE SOD 40 MG DELAYED RELEASE TAB PO SCH (09:08)
[2017-01-03] MEDS: DILTIAZEM-CD 240 MG CAP ER PO SCH (09:08)
[2017-01-03] MEDS: prednisoLONE ACETATE 1% OPHT SUSP 5 ML BTL EACH EYE SCH (09:09)
[2017-01-03] MEDS: acetaZOLAMIDE 250 MG TAB PO SCH ×2 (09:09→22:46)
[2017-01-03] MEDS: LACTOBACILLUS ACIDOPHILUS TAB PO SCH ×3 (09:09→17:36)
[2017-01-03] MEDS: DOCUSATE SODIUM 50 MG/SENNA 8.6 MG TAB PO SCH ×2 (09:09→21:00)
[2017-01-03] MEDS: predniSONE 20 MG TAB PO SCH (09:09)
[2017-01-03] MEDS: METOPROLOL TARTRATE 25 MG TAB PO SCH ×2 (09:09→22:46)
[2017-01-03] MEDS: CALCIUM/VITAMIN D 250 MG/125 U TAB PO SCH ×2 (09:09→22:46)
[2017-01-03] MEDS ORDERED: VANCOMYCIN INJ 1,250 MG in SODIUM CHLOR 0.9% 250 ML INJ 250 ML IV SCH (10:00)
--- NOTE | 2017-01-03 10:32 | PD.ONC.PN ---
Subjective Subjective Remarks miserable and aches all over. Objective Data Date Time Temp Pulse Resp B/P (MAP) Pulse Ox O2 Delivery O2 Flow Rate FiO2 01/03/17 04:00 98.7 108 20 164/64 (97) 99 01/03/17 01:00 100.1 01/03/17 00:00 103.0 100 20 154/72 (99) 100 01/02/17 21:35 98 01/02/17 20:20 98 Nasal Cannula 3.00 01/02/17 20:00 102 01/02/17 20:00 99.5 112 20 151/63 (92) 99 01/02/17 18:22 100.0 134/66 (88) 01/02/17 16:36 99.3 86 20 170/77 (108) 01/02/17 12:45 98.6 70 20 158/76 (103) 100 01/03/17 01/03/17 01/03/17 07:00 15:00 23:00 Output Total 420 ml Balance -420 ml Result Diagram: 01/03/1772001/03/1721 Laboratory Results Item Value Date Time Methotrexate Level 0.26 UMOL/L 01/02/17 0632 Laboratory Tests Test 01/02/17 19:50 01/03/17 05:50 01/03/17 07:21 Urine pH 8.0 White Blood Count 5.8 TH/MM3 Red Blood Count 3.31 MIL/MM3 Hemoglobin 10.6 GM/DL Hematocrit 31.3 % Mean Corpuscular Volume 94.6 FL Mean Corpuscular Hemoglobin 32.0 PG Mean Corpuscular Hemoglobin Concent 33.9 % Red Cell Distribution Width 21.1 % Platelet Count 69 TH/MM3 Mean Platelet Volume 7.0 FL Neutrophils (%) (Auto) 99.2 % Lymphocytes (%) (Auto) 0.5 % Monocytes (%) (Auto) 0.1 % Eosinophils (%) (Auto) 0.1 % Basophils (%) (Auto) 0.1 % Neutrophils # (Auto) 5.8 TH/MM3 Lymphocytes # (Auto) 0.0 TH/MM3 Monocytes # (Auto) 0.0 TH/MM3 Eosinophils # (Auto) 0.0 TH/MM3 Basophils # (Auto) 0.0 TH/MM3 CBC Comment AUTO DIFF Differential Comment AUTO DIFF CONFIRMED Platelet Estimate LOW Platelet Morphology Comment NORMAL Blood Urea Nitrogen 35 MG/DL Creatinine 1.54 MG/DL Random Glucose 142 MG/DL Calcium Level 8.2 MG/DL Magnesium Level 1.9 MG/DL Sodium Level 137 MEQ/L Potassium Level 3.4 MEQ/L Chloride Level 106 MEQ/L Carbon Dioxide Level 17.8 MEQ/L Anion Gap 13 MEQ/L Estimat Glomerular Filtration Rate 45 ML/MIN Culture Results Microbiology Date/Time Source Procedure Growth Status 01/02/17 21:50 Blood Peripheral Aerobic Blood Culture Pending Worksheet 01/02/17 21:50 Blood Peripheral Anaerobic Blood Culture Pending Worksheet 01/02/17 20:39 Blood Peripheral Aerobic Blood Culture - Preliminary Gram Positive Cocci Resulted 01/02/17 20:39 Blood Peripheral Anaerobic Blood Culture Pending Resulted 01/02/17 19:50 Urine Clean Catch Urine Culture Pending Worksheet Administered Medications Medications (Trade) Dose Ordered Sig/Daniel Route PRN Reason Start Time Stop Time Status Last Admin Dose Admin Enoxaparin Sodium (Lovenox Inj) 40 mg Q24H SQ 12/29/16 09:00 Future Hold 01/02/17 09:40 Prednisone (Deltasone) 20 mg DAILY PO 12/29/16 09:00 01/03/17 09:09 Pantoprazole Sodium (Protonix) 40 mg DAILY PO 12/29/16 09:00 01/03/17 09:08 Prednisolone Acetate (Pred Forte 1% Opth Susp) 2 DROPS TO BOTH EYES QID EACH EYE 12/29/16 13:00 01/03/17 12:59 01/03/17 09:09 Acetazolamide (Diamox) 250 mg BID PO 12/29/16 21:00 01/03/17 09:09 Allopurinol (Zyloprim) 200 mg DAILY PO 12/30/16 09:00 01/03/17 09:08 Calcium/Vitamin D (Oscal-D 250-125) 500 mg Q12HR PO 12/29/16 21:00 01/03/17 09:09 Diltiazem HCl (Cardizem Cd) 240 mg DAILY PO 12/30/16 09:00 01/03/17 09:08 Diphenhydramine HCl (Benadryl) 25 mg Q4H PRN PO SEE LABEL COMMENTS 12/29/16 11:00 12/31/16 17:49 Lactobacillus Acidophilus (Lactinex) 1 tab TID PO 12/29/16 13:00 01/03/17 09:09 Megestrol Acetate (Megace Liq) 400 mg DAILY PO 12/30/16 09:00 01/03/17 09:08 Metoprolol Tartrate (Lopressor) 25 mg Q12HR PO 12/29/16 21:00 01/03/17 09:09 Hydrocortisone (Nutracort 1% Oint) 1 applic BID TOPICAL 12/29/16 13:00 01/02/17 20:42 Sodium Chloride (NS Flush) 2 ml UNSCH PRN IV FLUSH FLUSH AFTER USING IV ACCESS 12/29/16 12:00 12/31/16 04:07 Sodium Chloride (NS Flush) 2 ml BID IV FLUSH 12/29/16 21:00 01/02/17 20:42 Acetaminophen (Tylenol) 650 mg Q4H PRN PO TEMP > 100.4 12/29/16 11:30 01/03/17 00:11 Oxycodone/ Acetaminophen (Percocet 10-325 Mg) 1 tab Q6H PRN PO PAIN SCALE 6 TO 10 12/29/16 11:30 01/03/17 09:39 Morphine Sulfate (Morphine Inj) 4 mg Q3H PRN IV PUSH Pain 6-10;if unable to take PO 12/29/16 11:30 01/03/17 06:02 Senna/Docusate Sodium (Cindy-Colace) 1 tab BID PO 12/29/16 21:00 01/03/17 09:09 Levothyroxine Sodium (Synthroid) 25 mcg DAILY@0600 PO 12/31/16 06:00 01/03/17 05:51 Insulin Human Regular (NovoLIN R SUPPLEMENTAL SCALE) 1 ACHS SLIDING SCALE SQ 01/01/17 21:00 01/02/17 16:54 Insulin Detemir (Levemir Inj) 5 units Q12HR SQ 01/02/17 09:00 01/02/17 09:40 Objective Remarks GENERAL: Weak and tired SKIN: Warm and dry. HEAD: Normocephalic. oral thrush EYES: No scleral icterus. No injection or drainage. NECK: Supple, trachea midline. No JVD or lymphadenopathy. LYMPHATIC: No adenopathy. CARDIOVASCULAR: iregular rate and rhythm without murmurs. RESPIRATORY: Breath sounds equal bilaterally. No accessory muscle use. GASTROINTESTINAL: Abdomen soft, non-tender, nondistended. EXTREMITIES: No cyanosis, or edema. MUSCULOSKELETAL: Adequate muscle tone. NEUROLOGICAL: No obvious focal deficit. Awake, alert, and oriented x3. PSYCHIATRIC: Appropriate mood and affect; insight and judgment normal. Assessment/Plan Assessment Mr. 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 His disease is associated with very complex cytogenetics and unfortunately this predicts a poor outcome and high rates of relapse despite appropriate and aggressive treatment. He is status post induction remission therapy with Hyper-CVAD with Rituxan and intrathecal chemotherapy which was delivered in mid-October of 2016. 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 Plan 1. 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 Bolus dose and methotrexate infusion to be administered on day 1. chemo completed 01/02 in am 2: methotrexate level is too high and must be continued until less then 0.05 at dose of 50 q 6 hours 3: worsening renal failure, worrisome. will continue iv fluids and monitor 4: thrush- diflucan 5: discontinue lovenex as platelets will continue to fall rapidly 6: + blood culture for gram + organism. on antibiotics and will notify ID. 7: afib - continue same tx. 8: generalized achiness- pain meds. Jose Alberto Julien MD Jan 03, 2017 10:32
--- NOTE | 2017-01-03 11:17 | PD.CONS ---
History of Present Illness Service Infectious Disease Consult Requested By Dr Sanjay Rice Reason for Consult Evaluate patient with fever, with ALL on high dose chemotherapy Primary Care Physician Hallie Norris M.D. Diagnoses: History of Present Illness PAtient seen and examined. records reviewed. Patient is a 71-year-old male was diagnosed in mid-October of 2016 with acute B- cell lymphoblastic leukemia ([place] chromosome negative). He received induction chemotherapy at that time, and hospitalization complicated by neutropenic fevers. He also developed a rash and subsequently underwent skin biopsy which revealed vacuolar interface dermatitis. Differential diagnosis of that biopsy included fixed drug eruption, erythema multiforme, GVHD, and conncetive tissue disease. His skin rash improved with systemic corticosteroids. He has been admitted for consolidation chemotherapy. He received MTX and cytarabine. Since yesterday, he started having fevers. he is complaining of body malaise, diffuse body aches, and neck pain. Denies headache or photophobia. No respiratory complaints. No GI or complaints. His skin is better, and less itchy. 2 BC done yesterday, one is growing GPC. Infectious Disease consultation has been requested to evaluate patient with fevers. He is not neutropenic. he is on IV Vanco, Cefepime and Diflucan. Review of Systems Constitutional: COMPLAINS OF: Fatigue, Fever, Chills Eyes: DENIES: Eye pain Ears, nose, mouth, throat: DENIES: Nasal discharge, Oral lesions, Throat pain, Ear Pain, Sinus Pain Respiratory: DENIES: Cough, Shortness of breath Cardiovascular: DENIES: Chest pain, Palpitations, Syncope, Lower Extremity Edema Gastrointestinal: DENIES: Abdominal pain, Diarrhea, Nausea, Vomiting, Difficulty Swallowing Genitourinary: DENIES: Urinary frequency, Urgency, Hematuria, Dysuria Musculoskeletal: COMPLAINS OF: Joint pain, Muscle aches, Neck pain, DENIES: Joint Swelling Integumentary: COMPLAINS OF: Pruritus, Rash Neurologic: DENIES: Headache, Localized weakness Psychiatric: DENIES: Hallucinations Past Family Social History Allergies: Coded Allergies: No Known Allergies (Unverified , 10/24/16) Past Medical History 1. B-cell ALL ([place] chromosome negative). 2. Acute kidney failure (now recovered). 3. 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 4. Severe rash, currently present. 5. Protein calorie malnutrition. 6. Chemotherapy-related myelosuppression. 7. Atrial fibrillation. Past Surgical History 1. Appendectomy. 2. Benign polyp removal from the throat. 3. Lumbar puncture with intrathecal chemotherapy injection. 4. Port placement. 5. Bone marrow biopsy and aspiration. 6. Skin biopsy Reported Medications I attest that I obtained, updated or reviewed the home and current medications. Reported Meds & Active Scripts Active Protonix (Pantoprazole Sodium) 20 Mg Tab 20 Mg PO DAILY Prednisone 5 Mg Tab 5 Mg PO DAILY 30 mg po daily for three days then 20 mg po daily for three days then 10 mg po daily for three days then 5 mg po daily for three days then stop. Cardizem CD 24 HR (Diltiazem CD 24 HR) 240 Mg Caper 240 Mg PO DAILY 30 Days Acidophilus/l-Sporogenes (Lactobacillus Acidophilus) 35 Million Cell-25 Million Cell Tab 1 Tab PO TID Sucralfate Liq (Sucralfate) 1 Gram/10 Ml Maki 1 Gm PO ACHS Oyster Shell 250 mg + Vit D Tb (Calcium/Vitamin D) 250 Mg Calcium (625 Mg)-125 Unit Tablet 500 Mg PO Q12HR Oxycodone-Acetaminophen 5-325 mg Tab 1 Tab PO Q3H PRN Metoprolol Tartrate 25 Mg Tab 25 Mg PO Q12HR Megestrol Liq (Megestrol Acetate) 40 Mg/Ml Susp 400 Mg PO DAILY MDD 400 Benadryl Allergy (Diphenhydramine HCl) 25 Mg Cap 25 Mg PO Q4H PRN Adjustable Commode 3-in-1 (Device) 1 Mis Mis Ea .ROUTE DIRECTED Bedside Commode (Device) 1 Mis Mis Ea .ROUTE DIRECTED Walker Rolling/GetGo (Device) 1 Mis Mis Ea .ROUTE DIRECTED Zyloprim (Allopurinol) 100 Mg Tab 200 Mg PO DAILY Gnp Hydrocortisone Maximu (Hydrocortisone (Topical)) 1 % Oin 1 Applic TOPICAL BID 10 Days Reported Prednisone 20 Mg Tab 40 Mg PO DAILY Take 40 mg (2 tablets) daily for 5 days Active Ordered Medications Tylenol prn Allopurinol Diamox Dulcolax prn Oscal Cardizem Benadryl prn Hydrocortisone ointment Levemir Insulin sliding scale Lactinex Lactulose Leucovorin Synthroid MOM prn Megace Reglan prn Lopressor Morphine prn Zofran prn Percocet prn Protonix Compazine prn Pericolace prn Senokot prn Vancomycin IV Ambien prn Family History Both parents of coronary artery disease Social History He is . He lives at home alone. Had previously been a smoker but quit at age 31 Rarely drinks alcohol No illicit drugs Physical Exam Vital Signs Vital Signs Date Time Temp Pulse Resp B/P (MAP) Pulse Ox O2 Delivery O2 Flow Rate FiO2 01/03/17 04:00 98.7 108 20 164/64 (97) 99 01/03/17 01:00 100.1 01/03/17 00:00 103.0 100 20 154/72 (99) 100 01/02/17 21:35 98 01/02/17 20:20 98 Nasal Cannula 3.00 01/02/17 20:00 102 01/02/17 20:00 99.5 112 20 151/63 (92) 99 01/02/17 18:22 100.0 134/66 (88) 01/02/17 16:36 99.3 86 20 170/77 (108) 01/02/17 12:45 98.6 70 20 158/76 (103) 100 Physical Exam GENERAL: Patient is a well-nourished, well-developed CM, awake and alert, not in respiratory distress. SKIN: Warm and dry. Has dry skin, with some scattered papules, and some with exfoliation HEAD: Atraumatic. Normocephalic. No temporal wasting, or tenderness. EYES: [place] conjunctiva. No petechia or hemorrhage. Pupils equal, round and reactive to light. Extraocular movements full and intact. No scleral icterus. No injection or drainage. EARS, NOSE AND THROAT: Nose without bleeding or purulent nasal discharge. No sinus tenderness. He is edentulous, with some oral thrush, dry oral mucosa. No oral lesions NECK: Trachea midline. Supple and not tender, no meningeal sign. No nuchal rigidity CARDIOVASCULAR: Regular rate and rhythm. No murmurs, rubs or gallops heard RESPIRATORY: Clear to auscultation. Breath sounds equal bilaterally. No rales , wheezing or rhonchi Port in L upper chest, accessed, no evidence of infection ABDOMEN: Soft, non-tender, nondistended. Bowel sounds present and normoactive. No guarding. No rebound. No organomegaly. Some ecchymoses on L side of abdomen EXTREMITIES: No clubbing, cyanosis, or edema. No joint effusion, has good ROM. No calf tenderness. Well perfused and warm. NEUROLOGICAL: Awake and alert. Cranial nerves grossly intact. Motor grossly within normal limits. PSYCHIATRIC: Normal affect, calm and cooperative. LINE: No evidence of infection Laboratory Laboratory Tests Test 01/02/17 19:50 01/03/17 05:50 01/03/17 07:21 Urine pH 8.0 White Blood Count 5.8 Red Blood Count 3.31 Hemoglobin 10.6 Hematocrit 31.3 Mean Corpuscular Volume 94.6 Mean Corpuscular Hemoglobin 32.0 Mean Corpuscular Hemoglobin Concent 33.9 Red Cell Distribution Width 21.1 Platelet Count 69 Mean Platelet Volume 7.0 Neutrophils (%) (Auto) 99.2 Lymphocytes (%) (Auto) 0.5 Monocytes (%) (Auto) 0.1 Eosinophils (%) (Auto) 0.1 Basophils (%) (Auto) 0.1 Neutrophils # (Auto) 5.8 Lymphocytes # (Auto) 0.0 Monocytes # (Auto) 0.0 Eosinophils # (Auto) 0.0 Basophils # (Auto) 0.0 CBC Comment AUTO DIFF Differential Comment AUTO DIFF CONFIRMED Platelet Estimate LOW Platelet Morphology Comment NORMAL Blood Urea Nitrogen 35 Creatinine 1.54 Random Glucose 142 Calcium Level 8.2 Magnesium Level 1.9 Sodium Level 137 Potassium Level 3.4 Chloride Level 106 Carbon Dioxide Level 17.8 Anion Gap 13 Estimat Glomerular Filtration Rate 45 Date/Time Source Procedure Growth Status 01/02/17 21:50 Blood Peripheral Aerobic Blood Culture Pending Worksheet 01/02/17 21:50 Blood Peripheral Anaerobic Blood Culture Pending Worksheet 01/02/17 19:50 Urine Clean Catch Urine Culture Pending Worksheet Result Diagram: 01/03/1772001/03/17720 Assessment and Plan Assessment and Plan IMPRESSION Fevers, patient with ALL, receiving consolidation chemotherapy - etiology? - one (+) BC, has port, ?significance - No other complaints except some neck pain (which he attributes to his bed) , body aches ALL, on consolidation chemo Renal insufficiency, worse Skin rash Oral thrush RECOMMENDATION Repeat BC, one line, and 1 peripheral UA Follow C/S Continue empiric Abx: Vanco, Cefepime, Diflucan CXR Monitor temps Monitor counts I will follow along with you Thank you for this consultation Discussed Condition With Explained plan to patient D/W Deonna Rasmussen MD Jan 03, 2017 11:16
[2017-01-03] MEDS ORDERED: Vancomycin Consult Pharmacy 1 EA OTHER SCH (11:30)
[2017-01-03] MEDS ORDERED: LEUCOVORIN CALCIUM 50 MG VIAL IV PUSH SCH (12:00)
[2017-01-03] MEDS: LEUCOVORIN CALCIUM IV SCH ×2 (12:39→17:36)
[2017-01-03] MEDS: CEFEPIME INJ 2,000 MG in SODIUM CHLORIDE 0.9% INJ 100 ML IV SCH ×2 (13:23→22:47)
[2017-01-03] MEDS: FLUCONAZOLE 200 MG TAB PO SCH (15:35)
[2017-01-03] MEDS: FILGRASTIM 480 MCG/1.6 ML VIAL SQ SCH (15:36)
[2017-01-03] MEDS: SODIUM CHLORIDE 0.9% FLUSH 10 ML FLUSH IV FLUSH SCH ×2 (15:36→21:00)
--- NOTE | 2017-01-03 17:01 | EKG ---
Date Performed: 01/03/2017 Time Performed: 06:46:44 PTAGE: 71 years EKG: Atrial fibrillation with rapid ventricular response. Inferior ST-T changes are nonspecific Abnormal ECG NO PREVIOUS TRACING DOCTOR: Nick Lang Interpretating Date/Time 01/03/2017 17:00:14
[2017-01-03 18:21] LABS: BACTERIA, URINE RARE /hpf; BLOOD, URINE SMALL (NEG); GLUCOSE,URINE NEG (NEG); KETONE, URINE NEG (NEG); MUCUS URINE FEW /lpf (OCC); NITRITE,URINE NEG (NEG); PH, URINE 5.5 (5.0-8.5); SQUAMOUS EPITHELIAL CELL URINE 2 /hpf (0-5); URINE COLOR YELLOW (YELLW/STRAW)
[2017-01-03] MEDS: SODIUM CHLOR 0.9% 1000 ML INJ 1,000 ML IV SCH (20:00)
--- NOTE | 2017-01-03 22:41 | RADRPT ---
EXAM DATE/TIME: 01/03/2017 22:02 [facility] COMPARISON: CHEST PA & LAT, November 01, 2016, 14:05. INDICATIONS : Fever. MEDICAL HISTORY : Leukemia. Dyspnea. SURGICAL HISTORY : Appendectomy. Infusaport. ENCOUNTER: Initial ACUITY: 1 day PAIN SCORE: 0/10 LOCATION: Bilateral chest FINDINGS: PA and lateral views of the chest demonstrate [id number] in superior vena cava. No consolidation o r significant effusion. No pneumothorax. Tortuous aorta. CONCLUSION: 1. Iwegel-a-[id number] in superior vena cava. No consolidation or significant effusion. Hao Lea MD on January 03, 2017 at 22:38 Board Certified Radiologist. This report was verified electronically.
[2017-01-04] VITALS (11 sets, daily range): BP systolic 112–143; BP diastolic 58–87; PULSE 85–146; RESP 14–18; TEMP 97.2–99; O2SAT 93–100
[2017-01-04] MEDS: LEUCOVORIN CALCIUM IV SCH ×5 (01:06→23:52)
[2017-01-04] MEDS: SODIUM CHLORIDE 0.9% IV SCH ×5 (01:06→23:52)
[2017-01-04] MEDS: VANCOMYCIN INJ 1,250 MG in SODIUM CHLOR 0.9% 250 ML INJ 250 ML IV SCH ×2 (01:06→10:28)
[2017-01-04] MEDS: MORPHINE SULFATE 4 MG/ML INJ IV PUSH PRN ×5 (02:10→21:07)
[2017-01-04] MEDS: LEVOTHYROXINE SODIUM 25 MCG TAB PO SCH (05:00)
[2017-01-04] MEDS: CEFEPIME INJ 2,000 MG in SODIUM CHLORIDE 0.9% INJ 100 ML IV SCH ×3 (05:00→23:03)
[2017-01-04] MEDS: SODIUM CHLOR 0.9% 1000 ML INJ 1,000 ML IV SCH ×3 (05:01→22:20)
--- NOTE | 2017-01-04 06:26 | HHI.PR ---
Subjective Remarks f/u; bacteremia somewhat ill looking. no fever today. but complaining of generalized body ache and weakness. no sob, cough, abdominal pain or nausea. better urine output over night. d/w the RN. Objective Vitals Vital Signs Date Time Temp Pulse Resp B/P (MAP) Pulse Ox O2 Delivery O2 Flow Rate FiO2 01/04/17 05:53 16 01/04/17 05:05 98.3 89 18 118/65 (82) 100 01/03/17 21:43 99.1 97 20 119/74 (89) 100 01/03/17 16:00 99.2 109 20 154/77 (102) 01/03/17 14:40 99 Nasal Cannula 3.00 01/03/17 12:00 98.7 90 22 108/67 (81) 100 01/03/17 11:12 22 01/03/17 08:00 99.0 117 18 125/82 (96) 98 I/O 01/03/17 01/03/17 01/03/17 01/04/17 01/04/17 01/04/17 07:00 15:00 23:00 07:00 15:00 23:00 Intake Total 300 ml 770 ml Output Total 420 ml 900 ml Balance -420 ml 300 ml -130 ml Intake Oral 480 ml IV Total 300 ml 290 ml Output Urine Total 420 ml 900 ml # Bowel Movements 2 Result Diagram: 01/03/17 0721 01/03/17 0721 Imaging Last Impressions Chest X-Ray 01/03/17 0000 Signed Impressions: Service Date/Time: Tuesday, January 03, 2017 22:02 - CONCLUSION: 1. [id number] in superior vena cava. No consolidation or significant effusion. Hao Lea MD Objective Remarks GENERAL: somewhat ill-looking- CARDIOVASCULAR: Regular rate and regular rhythm without murmurs, gallops, or rubs. RESPIRATORY: Clear to auscultation. Breath sounds equal bilaterally. No wheezes , rales, or rhonchi. GASTROINTESTINAL: Abdomen soft, non-tender, nondistended. Normal, active bowel sounds MUSCULOSKELETAL: Extremities without clubbing, cyanosis, or edema. NEURO: Alert & Oriented x4 to person, place, time, situation. Moves all ext x4 Medications and IVs Current Medications Sodium Chloride (NS Flush) 2 ml UNSCH PRN IV FLUSH FLUSH AFTER USING IV ACCESS ; Start 12/29/16 at 08:00; Status Cancel Sodium Chloride (NS Flush) 2 ml BID IV FLUSH Last administered on 12/29/16 10 :20; Start 12/29/16 at 09:00; Stop 12/29/16 at 12:20; Status DC Ondansetron HCl (Zofran Inj) 4 mg Q6H PRN IVP NAUSEA OR VOMITING; Start at 08:00; Status Cancel Metoclopramide HCl (Reglan Inj) 5 mg Q6H PRN IV PUSH NAUSEA OR VOMITING; Start 12/29/16 at 08:00 Prochlorperazine (Compazine Supp) 25 mg Q12H PRN RECTAL NAUSEA OR VOMITING; Start 12/29/16 at 08:00; Status Cancel Zolpidem Tartrate (Ambien) 5 mg HS PRN PO INSOMNIA; Start 12/29/16 at 21:00 Enoxaparin Sodium (Lovenox Inj) 40 mg Q24H SQ Last administered on 01/02/17 09:40; Start 12/29/16 at 09:00; Stop 01/03/17 at 10:35; Status DC Naloxone HCl (Narcan Inj) 0.4 mg UNSCH PRN IV PUSH SEE LABEL COMMENTS; Start 12/29/16 at 08:00; Status Cancel Senna/Docusate Sodium (Cindy-Colace) 1 tab BID PO ; Start 12/29/16 at 09:00; Stop 12/29/16 at 11:49; Status DC Magnesium Hydroxide (Milk Of Magnesia Liq) 30 ml Q12H PRN PO Mild constipation ; Start 12/29/16 at 08:00; Status Cancel Sennosides (Senokot) 17.2 mg Q12H PRN PO Moderate constipation; Start at 08:00; Status Cancel Bisacodyl (Dulcolax Supp) 10 mg DAILY PRN RECTAL SEVERE CONSITIPATION; Start 12/29/16 at 08:00; Status Cancel Lactulose (Lactulose Liq) 30 ml DAILY PRN PO SEVERE CONSITIPATION; Start 12/29 at 08:00; Status Cancel Prednisone (Deltasone) 20 mg DAILY PO Last administered on 01/03/17 09:09; Start 12/29/16 at 09:00 Pantoprazole Sodium (Protonix) 40 mg DAILY PO Last administered on 01/03/17 09:08; Start 12/29/16 at 09:00 Sodium Acetate 100 meq/Dextrose 1,050 ml @ 100 mls/hr [id number] IV Last administered on 01/01/17 04:46; Start 12/29/16 at 13:00; Stop 01/01/17 at 12 :00; Status DC Prednisolone Acetate (Pred Forte 1% Opth Susp) 2 DROPS TO BOTH EYES QID EACH EYE Last administered on 01/03/17 09:09; Start 12/29/16 at 13:00; Stop at 12:59; Status DC Sodium Bicarbonate (Sodium Bicarbonate) 1,300 mg QID PO Last administered on 09:38; Start 12/29/16 at 13:00; Stop 01/02/17 at 12:59; Status DC Acetazolamide (Diamox) 250 mg BID PO Last administered on 01/03/17 22:46; Start 12/29/16 at 21:00 Granisetron HCl (Kytril) 1 mg Q12H PO Last administered on 12/29/16 13:53; Start 12/29/16 at 13:00; Stop 12/30/16 at 08:38; Status DC Methylprednisolone Sodium Succinate (SoluMEDROL INJ) 50 mg Q12H IV PUSH Last administered on 12/29/16 13:53; Start 12/29/16 at 13:00; Stop 12/30/16 at 08 :39; Status DC Methotrexate Sodium 440 mg/ Dextrose 267.6 ml @ 133.8 mls/ hr ONCE ONCE IV Last administered on 12/30/16 09:58; Start 12/29/16 at 14:00; Stop 12/29/16 at 15:59; Status DC Methotrexate Sodium 1760 mg/ Dextrose 1,070.4 ml @ 48.655 mls/hr ONCE ONCE IV Last administered on 12/30/16 12:57; Start 12/29/16 at 16:00; Stop at 13:59; Status DC Cytarabine 4400 mg/Dextrose 250 ml @ 125 mls/hr Q12H IV ; Start 12/30/16 at 16 :00; Stop 12/31/16 at 09:42; Status DC Allopurinol (Zyloprim) 200 mg DAILY PO Last administered on 01/03/17 09:08; Start 12/30/16 at 09:00 Calcium/Vitamin D (Oscal-D 250-125) 500 mg Q12HR PO Last administered on 22:46; Start 12/29/16 at 21:00 Diltiazem HCl (Cardizem Cd) 240 mg DAILY PO Last administered on 01/03/17 09: 08; Start 12/30/16 at 09:00 Diphenhydramine HCl (Benadryl) 25 mg Q4H PRN PO SEE LABEL COMMENTS Last administered on 12/31/16 17:49; Start 12/29/16 at 11:00 Lactobacillus Acidophilus (Lactinex) 1 tab TID PO Last administered on 17:36; Start 12/29/16 at 13:00 Megestrol Acetate (Megace Liq) 400 mg DAILY PO ; Start 12/30/16 at 09:00 Metoprolol Tartrate (Lopressor) 25 mg Q12HR PO Last administered on 01/03/17 22:46; Start 12/29/16 at 21:00 Pantoprazole Sodium (Protonix) 20 mg DAILY PO ; Start 12/30/16 at 09:00; Stop 12/30/16 at 09:00; Status DC Hydrocortisone (Nutracort 1% Oint) 1 applic BID TOPICAL Last administered on 22:47; Start 12/29/16 at 13:00 Prednisone (Deltasone) 40 mg DAILY PO ; Start 12/29/16 at 11:15; Status UNV Sodium Chloride (NS Flush) 2 ml UNSCH PRN IV FLUSH FLUSH AFTER USING IV ACCESS Last administered on 12/31/16 04:07; Start 12/29/16 at 12:00 Sodium Chloride (NS Flush) 2 ml BID IV FLUSH Last administered on 01/03/17 15 :36; Start 12/29/16 at 21:00 Acetaminophen (Tylenol) 650 mg Q4H PRN PO TEMP > 100.4 Last administered on 00:11; Start 12/29/16 at 11:30 Ondansetron HCl (Zofran Inj) 4 mg Q6H PRN IVP NAUSEA OR VOMITING; Start at 11:30 Prochlorperazine (Compazine Supp) 25 mg Q12H PRN RECTAL NAUSEA OR VOMITING; Start 12/29/16 at 11:30 Acetaminophen (Tylenol) 650 mg Q6H PRN PO PAIN SCALE 1 TO 2; Start 12/29/16 at 11:30 Oxycodone/ Acetaminophen (Percocet 5-325 Mg) 1 tab Q6H PRN PO PAIN SCALE 3 TO 5; Start 12/29/16 at 11:30 Oxycodone/ Acetaminophen (Percocet 10-325 Mg) 1 tab Q6H PRN PO PAIN SCALE 6 TO 10 Last administered on 01/03/17 18:43; Start 12/29/16 at 11:30 Morphine Sulfate (Morphine Inj) 2 mg Q3H PRN IV PUSH Pain 3-5; if unable to take PO; Start 12/29/16 at 11:30 Morphine Sulfate (Morphine Inj) 4 mg Q3H PRN IV PUSH Pain 6-10;if unable to take PO Last administered on 01/04/17 05:22; Start 12/29/16 at 11:30 Naloxone HCl (Narcan Inj) 0.4 mg UNSCH PRN IV PUSH SEE LABEL COMMENTS; Start 12/29/16 at 11:45 Senna/Docusate Sodium (Cindy-Colace) 1 tab BID PO Last administered on 09:09; Start 12/29/16 at 21:00 Magnesium Hydroxide (Milk Of Magnesia Liq) 30 ml Q12H PRN PO Mild constipation ; Start 12/29/16 at 11:45 Sennosides (Senokot) 17.2 mg Q12H PRN PO Moderate constipation; Start at 11:45 Bisacodyl (Dulcolax Supp) 10 mg DAILY PRN RECTAL SEVERE CONSITIPATION; Start 12/29/16 at 11:45 Lactulose (Lactulose Liq) 30 ml DAILY PRN PO SEVERE CONSITIPATION; Start 12/29 at 11:45 Leucovorin Calcium 50 mg/ Sodium Chloride 50 ml @ 200 mls/hr ONCE ONCE IV ; Start 12/31/16 at 02:00; Stop 12/31/16 at 02:14; Status DC Leucovorin Calcium 25 mg/ Sodium Chloride 50 ml @ 200 mls/hr Q6H IV ; Start at 08:00; Stop 12/31/16 at 09:50; Status DC Granisetron HCl (Kytril) 1 mg Q12H PO Last administered on 12/30/16 08:48; Start 12/30/16 at 09:00; Stop 12/30/16 at 09:01; Status DC Methylprednisolone Sodium Succinate (SoluMEDROL INJ) 50 mg Q12H IV PUSH Last administered on 12/30/16 08:46; Start 12/30/16 at 09:00; Stop 12/30/16 at 09 :01; Status DC Levothyroxine Sodium (Synthroid) 25 mcg DAILY@0600 PO Last administered on 05:00; Start 12/31/16 at 06:00 Levothyroxine Sodium (Synthroid) 25 mcg ONCE ONCE PO Last administered on 13:00; Start 12/30/16 at 11:15; Stop 12/30/16 at 11:16; Status DC Granisetron HCl (Kytril) 1 mg Q12H PO Last administered on 01/01/17 20:00; Start 12/31/16 at 08:00; Stop 01/01/17 at 20:01; Status DC Methylprednisolone Sodium Succinate (SoluMEDROL INJ) 50 mg Q12H IV PUSH Last administered on 01/01/17 21:06; Start 12/31/16 at 08:00; Stop 01/01/17 at 20 :01; Status DC Sodium Chloride 250 ml @ 15 mls/hr ONCE ONCE IV Last administered on 15:00; Start 12/31/16 at 07:45; Stop 01/01/17 at 00:24; Status DC Acetaminophen (Tylenol) 650 mg Q4H PRN PO SEE LABEL COMMENTS Last administered on 12/31/16 17:50; Start 12/31/16 at 07:45; Stop 12/31/16 at 17:50; Status DC Diphenhydramine HCl (Benadryl) 25 mg Q4H PRN PO SEE LABEL COMMENTS; Start at 07:45 Cytarabine 4400 mg/Dextrose 250 ml @ 125 mls/hr Q12H IV Last administered on 01/01/17 23:01; Start 12/31/16 at 11:00; Stop 01/02/17 at 00:59; Status DC Leucovorin Calcium 50 mg/ Sodium Chloride 50 ml @ 200 mls/hr ONCE ONCE IV Last administered on 12/31/16 22:00; Start 12/31/16 at 22:00; Stop 12/31/16 at 22:14; Status DC Leucovorin Calcium 25 mg/ Sodium Chloride 50 ml @ 200 mls/hr Q6H IV Last administered on 01/02/17 16:46; Start 01/01/17 at 04:00; Stop 01/02/17 at 18 :10; Status DC Potassium Chloride (KCl) 20 meq ONCE ONCE PO Last administered on 01/01/17 08:53; Start 01/01/17 at 07:45; Stop 01/01/17 at 07:46; Status DC Sodium Acetate 100 meq/Dextrose 1,050 ml @ 100 mls/hr [id number] IV Last administered on 01/02/17 02:12; Start 01/01/17 at 16:15; Stop 01/02/17 at 08 :00; Status DC Insulin Human Regular (NovoLIN R SUPPLEMENTAL SCALE) 1 ACHS SLIDING SCALE SQ Last administered on 01/03/17 17:35; Start 01/01/17 at 21:00 Enoxaparin Sodium (Lovenox Inj) 40 mg Q24H SQ ; Start 01/02/17 at 08:45; Stop 01/02/17 at 08:45; Status DC Insulin Detemir (Levemir Inj) 5 units Q12HR SQ Last administered on 01/02/17 09:40; Start 01/02/17 at 09:00 Leucovorin Calcium 50 mg/ Sodium Chloride 50 ml @ 200 mls/hr Q6H IV ; Start at 18:15; Stop 01/02/17 at 18:15; Status DC Leucovorin Calcium 50 mg/ Sodium Chloride 50 ml @ 200 mls/hr Q6H IV ; Start at 19:00; Stop 01/02/17 at 19:00; Status DC Leucovorin Calcium 50 mg/ Sodium Chloride 50 ml @ 200 mls/hr Q6H IV ; Start at 20:00; Stop 01/02/17 at 20:00; Status DC Cefepime HCl 2000 mg/Sodium Chloride 100 ml @ 200 mls/hr Q12H IV Last administered on 01/02/17 21:54; Start 01/02/17 at 21:00; Stop 01/03/17 at 08 :09; Status DC Leucovorin Calcium 25 mg/ Sodium Chloride 50 ml @ 200 mls/hr Q6H IV Last administered on 01/03/17 05:51; Start 01/02/17 at 23:00; Stop 01/03/17 at 05 :14; Status DC Metoprolol Tartrate (Lopressor Inj) 5 mg ONCE PRN IV PUSH sustained HR > 130 bpm; Start 01/03/17 at 06:45; Stop 01/03/17 at 08:45; Status DC Vancomycin HCl 1250 mg/Sodium Chloride 262.5 ml @ 262.5 mls/ hr Q12H IV Last administered on 01/03/17 10:46; Start 01/03/17 at 10:00; Stop 01/03/17 at 14 :00; Status DC Cefepime HCl 2000 mg/Sodium Chloride 100 ml @ 200 mls/hr Q8HR IV Last administered on 01/04/17 05:00; Start 01/03/17 at 14:00 Sodium Chloride 1,000 ml @ 100 mls/hr Q10H ONCE IV Last administered on 12:46; Start 01/03/17 at 09:00; Stop 01/03/17 at 18:59; Status DC Potassium Chloride (KCl) 10 meq ONCE ONCE PO Last administered on 01/03/17 09:12; Start 01/03/17 at 09:00; Stop 01/03/17 at 09:01; Status DC Leucovorin Calcium (Wellcovorin Inj) 25 mg Q6H IV PUSH ; Start 01/03/17 at 12: 00; Status Cancel Fluconazole (Diflucan) 200 mg DAILY PO Last administered on 01/03/17 15:35; Start 01/03/17 at 11:00 Filgrastim (Neupogen Inj) 480 mcg DAILY@14 SQ Last administered on 01/03/17 15:36; Start 01/03/17 at 14:00 Pharmacy Profile Note 0 ml @ 0 mls/hr UNSCH OTHER ; Start 01/03/17 at 11:30 Leucovorin Calcium 25 mg/ Sodium Chloride 50 ml @ 200 mls/hr Q6H IV Last administered on 01/04/17 05:00; Start 01/03/17 at 12:00; Stop 01/05/17 at 12 :14 Vancomycin HCl 1250 mg/Sodium Chloride 262.5 ml @ 262.5 mls/ hr Q12H IV Last administered on 01/04/17 01:06; Start 01/03/17 at 23:00 Miscellaneous Information SPECIFIC LAB TO BE ... 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 MRSA bacteremia; on Vanco- follow the cultures- check echo- ID following. acute kidney injury; continue IV fluid- monitor I/O and renal function closely- oral thruch; on Diflucan Chronic skin rash- continue steroids Atrial fibrillation with RVR; overall HR better today; continue on his beta krystina and calcium channel krystina for rate control anemia- due to chemo- transfused with PRBC- H/H improved- continue to monitor. thrombocytopenia; due to chemo- oncology following. hyperglycemia- steroid-induced; continue with accu-check and SSI hypothyroidism; continue synthroid mild hypokalemia; replaced- will monitor. generalized weakness- consult PT DVT prophylaxis with SCD's- ( Lovenox on hold due to thrombocytopenia) Tabitha Jimenez MD Jan 04, 2017 06:26
[2017-01-04 06:43] LABS: AUTOMATED NEUTROPHIL # 2.9 TH/MM3 (1.8-7.7); BASOPHIL % 0.1 % (0.0-2.0); EOSINOPHIL % 0.1 % (0.0-4.0); HEMATOCRIT 25.8 % (39.0-51.0); LYMPH % 0.7 % (9.0-44.0); MEAN CORPUSCULAR HEMOGLOBIN 31.9 PG (27.0-34.0); MEAN CORPUSCULAR HGB CONC 34.3 % (32.0-36.0); MONO % 0.2 % (0.0-8.0); NEUT % 98.9 % (16.0-70.0); PLATELET COUNT 38 TH/MM3 (150-450); RED BLOOD COUNT 2.77 MIL/MM3 (4.50-5.90); RED CELL DISTRIBUTION WIDTH 21.3 % (11.6-17.2); WHITE BLOOD COUNT 2.9 TH/MM3 (4.0-11.0)
[2017-01-04 06:49] LABS: HEMO FLAGS AUTO DIFF
[2017-01-04 07:01] LABS: ALKALINE PHOSPHATASE 58 U/L (45-117); ALT (GPT) 46 U/L (12-78); ANION GAP 9 MEQ/L (5-15); AST (GOT) 18 U/L (15-37); BICARBONATE 19.4 MEQ/L (21.0-32.0); BLOOD UREA NITROGEN 33 MG/DL (7-18); CHLORIDE 111 MEQ/L (98-107); GLOMERULAR FILTRATION RATE 58 ML/MIN (>89); POTASSIUM 3.9 MEQ/L (3.5-5.1); SODIUM (NA) 139 MEQ/L (136-145); TOTAL BILIRUBIN ADULT 0.7 MG/DL (0.2-1.0)
[2017-01-04 07:51] LABS: PLATELET ESTIMATE SMEAR LOW (NORMAL); PLATELET MORPHOLOGY NORMAL (NORMAL); SCAN/DIFF AUTO DIFF CONFIRMED
[2017-01-04] MEDS: INSULIN NovoLIN REGULAR SUPPLEMENTAL SCALE SQ SCH ×4 (08:00→21:00)
[2017-01-04] MEDS: SODIUM CHLORIDE 0.9% FLUSH 10 ML FLUSH IV FLUSH SCH ×2 (08:57→21:15)
[2017-01-04] MEDS: HYDROCORTISONE 1% OINT 30 GM TUBE TOPICAL SCH ×2 (09:00→21:00)
[2017-01-04] MEDS: INSULIN DETEMIR 100 UNITS/ML VIAL SQ SCH ×2 (09:00→23:44)
[2017-01-04] MEDS: CALCIUM/VITAMIN D 250 MG/125 U TAB PO SCH ×2 (09:01→21:14)
[2017-01-04] MEDS: FLUCONAZOLE 200 MG TAB PO SCH (09:01)
[2017-01-04] MEDS: LACTOBACILLUS ACIDOPHILUS TAB PO SCH ×3 (09:01→18:30)
[2017-01-04] MEDS: predniSONE 20 MG TAB PO SCH (09:01)
[2017-01-04] MEDS: acetaZOLAMIDE 250 MG TAB PO SCH ×2 (09:01→21:14)
[2017-01-04] MEDS: METOPROLOL TARTRATE 25 MG TAB PO SCH ×2 (09:01→21:14)
[2017-01-04] MEDS: MEGESTROL ACETATE SUSP 400 MG/10 ML CUP PO SCH (09:01)
[2017-01-04] MEDS: DILTIAZEM-CD 240 MG CAP ER PO SCH (09:01)
[2017-01-04] MEDS: PANTOPRAZOLE SOD 40 MG DELAYED RELEASE TAB PO SCH (09:01)
[2017-01-04] MEDS: ALLOPURINOL 100 MG TAB PO SCH (09:01)
[2017-01-04] MEDS: DOCUSATE SODIUM 50 MG/SENNA 8.6 MG TAB PO SCH ×2 (09:01→21:00)
--- NOTE | 2017-01-04 09:32 | PD.ONC.PN ---
Subjective Subjective Remarks Afebrile overnight Pt reports he has a considerable amt of pain in his neck No nuchal rigidity Objective Data Date Time Temp Pulse Resp B/P (MAP) Pulse Ox O2 Delivery O2 Flow Rate FiO2 01/04/17 08:51 146 01/04/17 05:53 16 01/04/17 05:05 98.3 89 18 118/65 (82) 100 01/04/17 04:00 90 01/04/17 00:18 85 01/04/17 00:00 98.7 95 18 127/58 (81) 100 01/03/17 22:46 Nasal Cannula 3.00 21 01/03/17 21:43 99.1 97 20 119/74 (89) 100 01/03/17 20:29 99 01/03/17 16:00 99.2 109 20 154/77 (102) 01/03/17 14:40 99 Nasal Cannula 3.00 01/03/17 12:00 98.7 90 22 108/67 (81) 100 01/03/17 11:12 22 01/04/17 01/04/17 01/04/17 07:00 15:00 23:00 Output Total 575 ml Balance -575 ml Result Diagram: 01/04/17 0500 01/04/17 0500 Laboratory Results Laboratory Tests Test 01/03/17 17:50 01/04/17 05:00 Urine Color YELLOW Urine Turbidity HAZY Urine pH 5.5 Urine Specific [place] 1.017 Urine Protein 30 mg/dL Urine Glucose (UA) NEG mg/dL Urine Ketones NEG mg/dL Urine Occult Blood SMALL Urine Nitrite NEG Urine Bilirubin NEG Urine Urobilinogen LESS THAN 2.0 MG/DL Urine Leukocyte Esterase NEG Urine RBC 11 /hpf Urine WBC 3 /hpf Urine Squamous Epithelial Cells 2 /hpf Urine Bacteria RARE /hpf Urine Mucus FEW /lpf White Blood Count 2.9 TH/MM3 Red Blood Count 2.77 MIL/MM3 Hemoglobin 8.9 GM/DL Hematocrit 25.8 % Mean Corpuscular Volume 93.0 FL Mean Corpuscular Hemoglobin 31.9 PG Mean Corpuscular Hemoglobin Concent 34.3 % Red Cell Distribution Width 21.3 % Platelet Count 38 TH/MM3 Mean Platelet Volume 7.6 FL Neutrophils (%) (Auto) 98.9 % Lymphocytes (%) (Auto) 0.7 % Monocytes (%) (Auto) 0.2 % Eosinophils (%) (Auto) 0.1 % Basophils (%) (Auto) 0.1 % Neutrophils # (Auto) 2.9 TH/MM3 Lymphocytes # (Auto) 0.0 TH/MM3 Monocytes # (Auto) 0.0 TH/MM3 Eosinophils # (Auto) 0.0 TH/MM3 Basophils # (Auto) 0.0 TH/MM3 CBC Comment AUTO DIFF Differential Comment AUTO DIFF CONFIRMED Platelet Estimate LOW Platelet Morphology Comment NORMAL Blood Urea Nitrogen 33 MG/DL Creatinine 1.23 MG/DL Random Glucose 168 MG/DL Total Protein 5.7 GM/DL Albumin 2.3 GM/DL Calcium Level 8.2 MG/DL Alkaline Phosphatase 58 U/L Aspartate Amino Transf (AST/SGOT) 18 U/L Alanine Aminotransferase (ALT/SGPT) 46 U/L Total Bilirubin 0.7 MG/DL Sodium Level 139 MEQ/L Potassium Level 3.9 MEQ/L Chloride Level 111 MEQ/L Carbon Dioxide Level 19.4 MEQ/L Anion Gap 9 MEQ/L Estimat Glomerular Filtration Rate 58 ML/MIN Culture Results Microbiology Date/Time Source Procedure Growth Status 01/03/17 17:13 Blood Peripheral Aerobic Blood Culture Pending Received 01/03/17 17:13 Blood Peripheral Anaerobic Blood Culture Pending Received 01/03/17 17:12 Blood Other Aerobic Blood Culture Pending Received 01/03/17 17:12 Blood Other Anaerobic Blood Culture Pending Received 01/02/17 21:50 Blood Peripheral Aerobic Blood Culture - Preliminary Gram Positive Cocci Resulted 01/02/17 21:50 Anaerobic Blood Culture - Preliminary Gram Positive Cocci Resulted 01/02/17 20:39 Blood Peripheral Aerobic Blood Culture - Preliminary S. Aureus Mrsa Resulted 01/02/17 20:39 Blood Peripheral Anaerobic Blood Culture - Preliminary NO GROWTH IN 1 DAY Resulted 01/02/17 19:50 Urine Clean Catch Urine Culture - Preliminary <10,000 CFU/ML GRAM POSITIVE SCOUT Resulted Administered Medications Medications (Trade) Dose Ordered Sig/Daniel Route PRN Reason Start Time Stop Time Status Last Admin Dose Admin Prednisone (Deltasone) 20 mg DAILY PO 12/29/16 09:00 01/04/17 09:01 Pantoprazole Sodium (Protonix) 40 mg DAILY PO 12/29/16 09:00 01/04/17 09:01 Acetazolamide (Diamox) 250 mg BID PO 12/29/16 21:00 01/04/17 09:01 Allopurinol (Zyloprim) 200 mg DAILY PO 12/30/16 09:00 01/04/17 09:01 Calcium/Vitamin D (Oscal-D 250-125) 500 mg Q12HR PO 12/29/16 21:00 01/04/17 09:01 Diltiazem HCl (Cardizem Cd) 240 mg DAILY PO 12/30/16 09:00 01/04/17 09:01 Diphenhydramine HCl (Benadryl) 25 mg Q4H PRN PO SEE LABEL COMMENTS 12/29/16 11:00 12/31/16 17:49 Lactobacillus Acidophilus (Lactinex) 1 tab TID PO 12/29/16 13:00 01/04/17 09:01 Megestrol Acetate (Megace Liq) 400 mg DAILY PO 12/30/16 09:00 01/04/17 09:01 Metoprolol Tartrate (Lopressor) 25 mg Q12HR PO 12/29/16 21:00 01/04/17 09:01 Hydrocortisone (Nutracort 1% Oint) 1 applic BID TOPICAL 12/29/16 13:00 01/03/17 22:47 Sodium Chloride (NS Flush) 2 ml UNSCH PRN IV FLUSH FLUSH AFTER USING IV ACCESS 12/29/16 12:00 12/31/16 04:07 Sodium Chloride (NS Flush) 2 ml BID IV FLUSH 12/29/16 21:00 01/04/17 08:57 Acetaminophen (Tylenol) 650 mg Q4H PRN PO TEMP > 100.4 12/29/16 11:30 01/03/17 00:11 Oxycodone/ Acetaminophen (Percocet 10-325 Mg) 1 tab Q6H PRN PO PAIN SCALE 6 TO 10 12/29/16 11:30 01/03/17 18:43 Morphine Sulfate (Morphine Inj) 4 mg Q3H PRN IV PUSH Pain 6-10;if unable to take PO 12/29/16 11:30 01/04/17 08:57 Senna/Docusate Sodium (Cindy-Colace) 1 tab BID PO 12/29/16 21:00 01/04/17 09:01 Levothyroxine Sodium (Synthroid) 25 mcg DAILY@0600 PO 12/31/16 06:00 01/04/17 05:00 Insulin Human Regular (NovoLIN R SUPPLEMENTAL SCALE) 1 ACHS SLIDING SCALE SQ 01/01/17 21:00 01/03/17 17:35 Insulin Detemir (Levemir Inj) 5 units Q12HR SQ 01/02/17 09:00 01/02/17 09:40 Cefepime HCl 2000 mg/Sodium Chloride 100 ml @ 200 mls/hr Q8HR IV 01/03/17 14:00 01/04/17 05:00 Fluconazole (Diflucan) 200 mg DAILY PO 01/03/17 11:00 01/04/17 09:01 Filgrastim (Neupogen Inj) 480 mcg DAILY@14 SQ 01/03/17 14:00 01/03/17 15:36 Leucovorin Calcium 25 mg/ Sodium Chloride 50 ml @ 200 mls/hr Q6H IV 01/03/17 12:00 01/05/17 12:14 01/04/17 05:00 Vancomycin HCl 1250 mg/Sodium Chloride 262.5 ml @ 262.5 mls/ hr Q12H IV 01/03/17 23:00 01/04/17 01:06 Sodium Chloride 1,000 ml @ 60 mls/hr [id number] IV 01/03/17 20:00 01/04/17 05:01 Objective Remarks GENERAL: Weak appearing older male, resting in bed SKIN: Warm and dry. HEAD: Normocephalic. Oral thrush improved. EYES: No scleral icterus. No injection or drainage. NECK: Supple, trachea midline. No JVD or lymphadenopathy. CARDIOVASCULAR: irregular rate and rhythm without murmurs. RESPIRATORY: Clear anteriorly. Breathing unlabored. GASTROINTESTINAL: Abdomen soft, non-tender, nondistended. EXTREMITIES: No cyanosis, or edema. MUSCULOSKELETAL: Adequate muscle tone. NEUROLOGICAL: No obvious focal deficit. Awake, alert, and oriented x3. Assessment/Plan Assessment Mr. 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 His disease is associated with very complex cytogenetics and unfortunately this predicts a poor outcome and high rates of relapse despite appropriate and aggressive treatment. He is status post induction remission therapy with Hyper-CVAD with Rituxan and intrathecal chemotherapy which was delivered in mid-October of 2016. 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 Plan 1. Pt had consolidation chemotherapy of hyper-CVAD arm B from 12/30/2016 through 01/02/2017. Leucovorin rescue continues at 50mg Q6H. His methotrexate level remains elevated at last result of 0.08. This should be less than 0.05 prior to stopping the leucovorin. 2. Kidney function is slightly improved, continue IVF. 3. He remains quite painful with generalized body aches and neck pain. He has no nuchal rigidity on exam and has been afebrile for the past 24 hours. 4. Blood cultures from 01/02 show MRSA in the blood stream. ID following. Attending Statement The exam, history, and the medical decision-making described in the above note were completed with the assistance of the mid-level provider. I reviewed and agree with the findings presented. I attest that I had a [id number] encounter with the patient on the same day, and personally performed and documented my assessment and findings in the medical record. patient weak but acutely ill. renal function improved and MTX level remains minimally elevated. will continue leucovorin until level less then .05. Has MRSA in blood and being seen by ID and on vancomycin and cefepime. thrush better- continue Diflucan. renal function better and will continue fluids but suspect will be able to decrease IV floods in another day. Imelda Michaels Jan 04, 2017 09:32 Jose Alberto Julien MD Jan 04, 2017 13:32
[2017-01-04] MEDS: FILGRASTIM 480 MCG/1.6 ML VIAL SQ SCH (14:00)
[2017-01-04] MEDS: SODIUM CHLORIDE 0.9% FLUSH 10 ML FLUSH IV FLUSH PRN ×2 (15:48→21:08)
--- NOTE | 2017-01-04 16:03 | HHI.IDPN ---
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 He received induction chemotherapy at that time, and hospitalization complicated by neutropenic fevers. He also developed a rash and subsequently underwent skin biopsy which revealed vacuolar interface dermatitis. Differential diagnosis of that biopsy included fixed drug eruption, erythema multiforme, GVHD, and conncetive tissue disease. His skin rash improved with systemic corticosteroids. He has been admitted for consolidation chemotherapy. He received MTX and cytarabine. Since yesterday, he started having fevers. he is complaining of body malaise, diffuse body aches, and neck pain. Denies headache or photophobia. No respiratory complaints. No GI or complaints. His skin is better, and less itchy. 2 BC done yesterday, one is growing GPC. Infectious Disease consultation has been requested to evaluate patient with fevers. He is not neutropenic. he is on IV Vanco, Cefepime and Diflucan. Notes reviewed Temps better All BC done with MRSA Still with neck pain though better accdg to patient - blames the bed D/W RN - neck pain 10 in morning. better with pain meds Also with dysuria UA ok Pancytopenia Antibiotics I attest that I obtained, updated or reviewed the home and current medications. Vanco Cefepime Current Medications Medications (Trade) Dose Ordered Sig/Daniel Route Start Time Stop Time Status Last Admin (Reglan Inj) 5 mg Q6H PRN IV PUSH 12/29/16 08:00 (Ambien) 5 mg HS PRN PO 12/29/16 21:00 (Deltasone) 20 mg DAILY PO 12/29/16 09:00 01/04/17 09:01 (Protonix) 40 mg DAILY PO 12/29/16 09:00 01/04/17 09:01 (Diamox) 250 mg BID PO 12/29/16 21:00 01/04/17 09:01 (Zyloprim) 200 mg DAILY PO 12/30/16 09:00 01/04/17 09:01 (Oscal-D 250-125) 500 mg Q12HR PO 12/29/16 21:00 01/04/17 09:01 (Cardizem Cd) 240 mg DAILY PO 12/30/16 09:00 01/04/17 09:01 (Benadryl) 25 mg Q4H PRN PO 12/29/16 11:00 12/31/16 17:49 (Lactinex) 1 tab TID PO 12/29/16 13:00 01/04/17 12:16 (Megace Liq) 400 mg DAILY PO 12/30/16 09:00 01/04/17 09:01 (Lopressor) 25 mg Q12HR PO 12/29/16 21:00 01/04/17 09:01 (Nutracort 1% Oint) 1 applic BID TOPICAL 12/29/16 13:00 01/03/17 22:47 (NS Flush) 2 ml UNSCH PRN IV FLUSH 12/29/16 12:00 01/04/17 15:48 (NS Flush) 2 ml BID IV FLUSH 12/29/16 21:00 01/04/17 08:57 (Tylenol) 650 mg Q4H PRN PO 12/29/16 11:30 01/03/17 00:11 (Zofran Inj) 4 mg Q6H PRN IVP 12/29/16 11:30 (Compazine Supp) 25 mg Q12H PRN RECTAL 12/29/16 11:30 (Tylenol) 650 mg Q6H PRN PO 12/29/16 11:30 (Percocet 5-325 Mg) 1 tab Q6H PRN PO 12/29/16 11:30 (Percocet 10-325 Mg) 1 tab Q6H PRN PO 12/29/16 11:30 01/03/17 18:43 (Morphine Inj) 2 mg Q3H PRN IV PUSH 12/29/16 11:30 (Morphine Inj) 4 mg Q3H PRN IV PUSH 12/29/16 11:30 01/04/17 15:46 (Narcan Inj) 0.4 mg UNSCH PRN IV PUSH 12/29/16 11:45 (Cindy-Colace) 1 tab BID PO 12/29/16 21:00 01/04/17 09:01 (Milk Of Magnesia Liq) 30 ml Q12H PRN PO 12/29/16 11:45 (Senokot) 17.2 mg Q12H PRN PO 12/29/16 11:45 (Dulcolax Supp) 10 mg DAILY PRN RECTAL 12/29/16 11:45 (Lactulose Liq) 30 ml DAILY PRN PO 12/29/16 11:45 (Synthroid) 25 mcg DAILY@0600 PO 12/31/16 06:00 01/04/17 05:00 (Benadryl) 25 mg Q4H PRN PO 12/31/16 07:45 (NovoLIN R SUPPLEMENTAL SCALE) 1 ACHS SLIDING SCALE SQ 01/01/17 21:00 01/03/17 17:35 (Levemir Inj) 5 units Q12HR SQ 01/02/17 09:00 01/02/17 09:40 Cefepime HCl 2000 mg/Sodium Chloride 100 ml @ 200 mls/hr Q8HR IV 01/03/17 14:00 01/04/17 12:42 (Diflucan) 200 mg DAILY PO 01/03/17 11:00 01/04/17 09:01 (Neupogen Inj) 480 mcg DAILY@14 SQ 01/03/17 14:00 01/04/17 14:00 Pharmacy Profile Note 0 ml @ 0 mls/hr UNSCH OTHER 01/03/17 11:30 Leucovorin Calcium 25 mg/ Sodium Chloride 50 ml @ 200 mls/hr Q6H IV 01/03/17 12:00 01/05/17 12:14 01/04/17 12:08 Vancomycin HCl 1250 mg/Sodium Chloride 262.5 ml @ 262.5 mls/ hr Q12H IV 01/03/17 23:00 01/04/17 10:28 Miscellaneous Information SPECIFIC LAB TO BE ... ONCE ONCE .XX 01/04/17 22:45 01/04/17 22:46 Sodium Chloride 1,000 ml @ 60 mls/hr [id number] IV 01/03/17 20:00 01/04/17 05:01 Diflucan Lines Port Past Medical History 1. 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 2. Acute kidney failure (now recovered). 3. 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 4. Severe rash, currently present. 5. Protein calorie malnutrition. 6. Chemotherapy-related myelosuppression. 7. Atrial fibrillation. Past Surgical History 1. Appendectomy. 2. Benign polyp removal from the throat. 3. Lumbar puncture with intrathecal chemotherapy injection. 4. Port placement. 5. Bone marrow biopsy and aspiration. 6. Skin biopsy Allergies: Coded Allergies: No Known Allergies (Unverified , 10/24/16) Objective . Vital Signs Date Time Temp Pulse Resp B/P (MAP) Pulse Ox O2 Delivery O2 Flow Rate FiO2 01/04/17 12:58 99.0 132 14 127/63 (84) 93 01/04/17 09:25 97 Nasal Cannula 2.00 01/04/17 09:00 97.6 87 16 112/58 (76) 96 01/04/17 08:51 146 01/04/17 05:53 16 01/04/17 05:05 98.3 89 18 118/65 (82) 100 01/04/17 04:00 90 01/04/17 00:18 85 01/04/17 00:00 98.7 95 18 127/58 (81) 100 01/03/17 22:46 Nasal Cannula 3.00 21 01/03/17 21:43 99.1 97 20 119/74 (89) 100 01/03/17 20:29 99 01/03/17 16:00 99.2 109 20 154/77 (102) 01/04/17 01/04/17 01/05/17 15:00 23:00 07:00 Intake Total 312.5 ml Output Total 150 ml Balance 162.5 ml IV Total 312.5 ml Output Urine Total 150 ml . Laboratory Tests Test 01/03/17 07:21 01/04/17 05:00 White Blood Count 5.8 TH/MM3 2.9 TH/MM3 Red Blood Count 3.31 MIL/MM3 2.77 MIL/MM3 Hemoglobin 10.6 GM/DL 8.9 GM/DL Hematocrit 31.3 % 25.8 % Mean Corpuscular Volume 94.6 FL 93.0 FL Mean Corpuscular Hemoglobin 32.0 PG 31.9 PG Mean Corpuscular Hemoglobin Concent 33.9 % 34.3 % Red Cell Distribution Width 21.1 % 21.3 % Platelet Count 69 TH/MM3 38 TH/MM3 Mean Platelet Volume 7.0 FL 7.6 FL Neutrophils (%) (Auto) 99.2 % 98.9 % Lymphocytes (%) (Auto) 0.5 % 0.7 % Monocytes (%) (Auto) 0.1 % 0.2 % Eosinophils (%) (Auto) 0.1 % 0.1 % Basophils (%) (Auto) 0.1 % 0.1 % Neutrophils # (Auto) 5.8 TH/MM3 2.9 TH/MM3 Lymphocytes # (Auto) 0.0 TH/MM3 0.0 TH/MM3 Monocytes # (Auto) 0.0 TH/MM3 0.0 TH/MM3 Eosinophils # (Auto) 0.0 TH/MM3 0.0 TH/MM3 Basophils # (Auto) 0.0 TH/MM3 0.0 TH/MM3 CBC Comment AUTO DIFF AUTO DIFF Differential Comment AUTO DIFF CONFIRMED AUTO DIFF CONFIRMED Platelet Estimate LOW LOW Platelet Morphology Comment NORMAL NORMAL Laboratory Tests Test 01/03/17 07:21 01/04/17 05:00 Blood Urea Nitrogen 35 MG/DL 33 MG/DL Creatinine 1.54 MG/DL 1.23 MG/DL Random Glucose 142 MG/DL 168 MG/DL Calcium Level 8.2 MG/DL 8.2 MG/DL Magnesium Level 1.9 MG/DL Sodium Level 137 MEQ/L 139 MEQ/L Potassium Level 3.4 MEQ/L 3.9 MEQ/L Chloride Level 106 MEQ/L 111 MEQ/L Carbon Dioxide Level 17.8 MEQ/L 19.4 MEQ/L Anion Gap 13 MEQ/L 9 MEQ/L Estimat Glomerular Filtration Rate 45 ML/MIN 58 ML/MIN Total Protein 5.7 GM/DL Albumin 2.3 GM/DL Alkaline Phosphatase 58 U/L Aspartate Amino Transf (AST/SGOT) 18 U/L Alanine Aminotransferase (ALT/SGPT) 46 U/L Total Bilirubin 0.7 MG/DL Microbiology Date/Time Source Procedure Growth Status 01/03/17 17:13 Blood Peripheral Aerobic Blood Culture - Preliminary Gram Positive Cocci Resulted 01/03/17 17:13 Anaerobic Blood Culture - Preliminary Gram Positive Cocci Resulted 01/03/17 17:12 Blood Other Aerobic Blood Culture - Preliminary Gram Positive Cocci Resulted 01/03/17 17:12 Blood Other Anaerobic Blood Culture - Preliminary NO GROWTH IN 1 DAY Resulted 01/02/17 21:50 Blood Peripheral Aerobic Blood Culture - Preliminary S. Aureus Mrsa Resulted 01/02/17 21:50 Anaerobic Blood Culture - Preliminary S. Aureus Mrsa Resulted 01/02/17 20:39 Blood Peripheral Aerobic Blood Culture - Preliminary S. Aureus Mrsa Resulted 01/02/17 20:39 Anaerobic Blood Culture - Preliminary S. Aureus Mrsa Resulted 01/02/17 19:50 Urine Clean Catch Urine Culture - Final <10,000 CFU/ML GRAM POSITIVE SCOUT Complete Imaging Last Impressions Chest X-Ray 01/03/17 0000 Signed Impressions: Service Date/Time: Tuesday, January 03, 2017 22:02 - CONCLUSION: 1. [id number] in superior vena cava. No consolidation or significant effusion. Hao Lea MD Physical Exam GENERAL: awake and alert, not in respiratory distress. SKIN: Warm and dry. Has dry skin, with some scattered papules, and some with exfoliation HEAD: Atraumatic. Normocephalic. No temporal wasting, or tenderness. EYES: [place] conjunctiva. No petechia or hemorrhage. Pupils equal, round and reactive to light. Extraocular movements full and intact. No scleral icterus. No injection or drainage. EARS, NOSE AND THROAT: Nose without bleeding or purulent nasal discharge. He is edentulous, with some oral thrush, dry oral mucosa. No oral lesions NECK: Trachea midline. Supple and not tender, no meningeal sign. No nuchal rigidity CARDIOVASCULAR: Regular rate and rhythm. No murmurs, rubs or gallops heard RESPIRATORY: Clear to auscultation. Breath sounds equal bilaterally. No rales , wheezing or rhonchi Port in L upper chest, accessed, no evidence of infection ABDOMEN: Soft, non-tender, nondistended. Bowel sounds present and normoactive. No guarding. No rebound. No organomegaly. Some ecchymoses on L side of abdomen EXTREMITIES: No clubbing, cyanosis, or edema. No joint effusion, has good ROM. No calf tenderness. Well perfused and warm. NEUROLOGICAL: Non-focal. PSYCHIATRIC: Normal affect, calm and cooperative. LINE: No evidence of infection Assessment & Plan Remarks IMPRESSION MRSA sepsis, source, worrisome for port Fevers, patient with ALL, receiving consolidation chemotherapy - etiology? - one (+) BC, has port, ?significance - No other complaints except some neck pain (which he attributes to his bed) , body aches ALL, on consolidation chemo Renal insufficiency, worse Skin rash Oral thrush neck pain, ?musculoskeletal RECOMMENDATION Repeat BC to document clearing Continue empiric Abx: Vanco, Cefepime, Diflucan Monitor temps Monitor counts If neck pain continues will do MRI cervical spine Echo If BC continues to be positive, will need to look at removal of port D/W Deonna William MD Jan 04, 2017 16:03
[2017-01-04] MEDS ORDERED: PHARMACY ORDERED LAB ONE (22:45)
[2017-01-04 23:55] LABS: BICARBONATE 16.7 MEQ/L (21.0-32.0)
[2017-01-04 23:59] LABS: VANCOMYCIN TROUGH 19.7 MCG/ML (5.0-10.0)
[2017-01-05] VITALS (11 sets, daily range): BP systolic 83–188; BP diastolic 53–88; PULSE 85–114; RESP 16–30; TEMP 98.1–98.8; O2SAT 92–100
[2017-01-05] MEDS: VANCOMYCIN 1,000 MG/NS 250 ML IV SCH ×6 (00:33→23:13)
[2017-01-05] MEDS: LEUCOVORIN CALCIUM IV SCH ×2 (05:39→13:30)
[2017-01-05] MEDS: LEVOTHYROXINE SODIUM 25 MCG TAB PO SCH (05:39)
[2017-01-05] MEDS: SODIUM CHLORIDE 0.9% IV SCH ×2 (05:39→13:30)
[2017-01-05] MEDS: CEFEPIME INJ 2,000 MG in SODIUM CHLORIDE 0.9% INJ 100 ML IV SCH ×2 (05:58→20:51)
[2017-01-05 06:39] LABS: EOSINOPHIL % 0.8 % (0.0-4.0); HEMATOCRIT 26.1 % (39.0-51.0); LYMPH % 3.5 % (9.0-44.0); MEAN CORPUSCULAR HEMOGLOBIN 31.8 PG (27.0-34.0); MEAN CORPUSCULAR HGB CONC 33.9 % (32.0-36.0); MONO % 1.3 % (0.0-8.0); NEUT % 94.4 % (16.0-70.0); RED BLOOD COUNT 2.78 MIL/MM3 (4.50-5.90); RED CELL DISTRIBUTION WIDTH 21.3 % (11.6-17.2)
[2017-01-05 06:41] LABS: HEMO FLAGS AUTO DIFF
[2017-01-05 06:44] LABS: PLATELET COUNT 18 TH/MM3 (150-450)
[2017-01-05] MEDS: MORPHINE SULFATE 4 MG/ML INJ IV PUSH PRN ×2 (07:54→23:15)
--- NOTE | 2017-01-05 07:59 | ECHRPT ---
Indication: MRSA VEGETATIONS- EVAL VALVES CONCLUSIONS Normal left ventricular size. Wall thickness is measured at the upper limits of normal. The left ventricular systolic function is moderately reduced with an estimated ejection fraction in the range of 40-45%. There is trace tricuspid valve regurgitation. Imaging not sufficient to exclude vegetations. BP: / HR: Rhythm: MEASUREMENTS (Male / Female) Normal Values Technical Quality:Technically difficult study 2D ECHO LV Diastolic Diameter PLAX 4.5 cm 4.2 - 5.9 / 3.9 - 5.3 cm LV Systolic Diameter PLAX 3.8 cm IVS Diastolic Thickness 1.1 cm 0.6 - 1.0 / 0.6 - 0.9 cm LVPW Diastolic Thickness 0.8 cm 0.6 - 1.0 / 0.6 - 0.9 cm LV Relative Wall Thickness 0.4 LA Systolic Diameter LX 3.6 cm 3.0 - 4.0 / 2.7 - 3.8 cm DOPPLER Mitral E Point Velocity 110.0 cm/s Mitral A Point Velocity 32.4 cm/s Mitral E to A Ratio 3.4 TR Peak Velocity 135.0 cm/s TR Peak Gradient 7.3 mmHg Right Atrial Pressure 10.0 mmHg Pulmonary Artery Systolic Pressu 17.3 mmHg Right Ventricular Systolic Press 17.3 mmHg FINDINGS LEFT VENTRICLE Normal left ventricular size. Wall thickness is measured at the upper limits of normal. The left ventricular systolic function is moderately reduced with an estimated ejection fraction in the range of 40-45%. RIGHT VENTRICLE Normal right ventricular size and systolic function. LEFT ATRIUM The left atrial size is normal. RIGHT ATRIUM The right atrial size is normal. ATRIAL SEPTUM Normal atrial septal thickness without atrial level shunting by limited color doppler interrogation. AORTA The aortic root and proximal ascending aorta are normal in size on limited imaging. MITRAL VALVE Structurally normal mitral valve. No mitral valve stenosis or regurgitation. AORTIC VALVE Trileaflet aortic valve. No aortic valve stenosis or regurgitation. TRICUSPID VALVE There is trace tricuspid valve regurgitation. PULMONARY VALVE No pulmonary valve regurgitation or stenosis. VESSELS The inferior vena cava is normal in size. PERICARDIUM No pericardial effusion. Tera Kim MD (Electronically Signed) Final Date:05 January 2017 07:58
[2017-01-05] MEDS: LACTOBACILLUS ACIDOPHILUS TAB PO SCH ×3 (08:00→17:35)
[2017-01-05] MEDS: MEGESTROL ACETATE SUSP 400 MG/10 ML CUP PO SCH (08:00)
[2017-01-05] MEDS: CALCIUM/VITAMIN D 250 MG/125 U TAB PO SCH ×2 (08:00→20:52)
[2017-01-05] MEDS: ALLOPURINOL 100 MG TAB PO SCH (08:00)
[2017-01-05] MEDS: acetaZOLAMIDE 250 MG TAB PO SCH ×2 (08:01→20:52)
[2017-01-05] MEDS: PANTOPRAZOLE SOD 40 MG DELAYED RELEASE TAB PO SCH (08:01)
[2017-01-05] MEDS: DOCUSATE SODIUM 50 MG/SENNA 8.6 MG TAB PO SCH ×2 (08:01→20:53)
[2017-01-05] MEDS: DILTIAZEM-CD 240 MG CAP ER PO SCH (08:01)
[2017-01-05] MEDS: predniSONE 20 MG TAB PO SCH (08:01)
[2017-01-05] MEDS: METOPROLOL TARTRATE 25 MG TAB PO SCH ×2 (08:01→20:52)
[2017-01-05] MEDS: SODIUM CHLORIDE 0.9% FLUSH 10 ML FLUSH IV FLUSH SCH ×2 (08:05→23:13)
[2017-01-05 08:24] LABS: BANDS 1 % (0-6); NEUTROPHIL # MANUAL DIFF 0.9 TH/MM3 (1.8-7.7); PLATELET ESTIMATE SMEAR RARE (NORMAL); PLATELET MORPHOLOGY NORMAL (NORMAL); POLYS (SEG NEUTROPHILS) 93 % (16-70); SCAN/DIFF FINAL DIFF MANUAL; WBC DIFF SAMPLE 100
--- NOTE | 2017-01-05 08:30 | PD.ONC.PN ---
Subjective Subjective Remarks Pt seen and examined, he feels very weak and tired. He reports feeling short of breath and reports his body aches "all over". His Oxygen sats are normal, he is tachycardic. Events of over the weekend were reviewed. Vitals, meds and microbiology reviewed. Objective Data Date Time Temp Pulse Resp B/P (MAP) Pulse Ox O2 Delivery O2 Flow Rate FiO2 01/05/17 08:12 100 Nasal Cannula 3.00 01/05/17 07:51 98.6 85 16 127/72 (90) 100 01/05/17 04:16 98.5 105 18 123/65 (84) 95 01/05/17 04:03 114 01/05/17 00:07 112 01/04/17 23:53 98.1 99 18 143/83 (103) 100 01/04/17 20:54 Nasal Cannula 2.00 01/04/17 20:53 98.7 106 18 134/87 (103) 100 01/04/17 20:23 109 01/04/17 17:00 97.2 130 14 114/76 (89) 96 01/04/17 12:58 99.0 132 14 127/63 (84) 93 01/04/17 09:25 97 Nasal Cannula 2.00 01/04/17 09:00 97.6 87 16 112/58 (76) 96 01/04/17 08:51 146 01/05/17 01/05/17 01/05/17 07:00 15:00 23:00 Intake Total 1160 ml Output Total 450 ml Balance 710 ml Result Diagram: 01/05/17 0545 01/04/17 2302 Laboratory Results Laboratory Tests Test 01/04/17 23:05 01/05/17 05:45 Blood Urea Nitrogen 32 MG/DL Creatinine 0.98 MG/DL Random Glucose 189 MG/DL Calcium Level 8.7 MG/DL Sodium Level 139 MEQ/L Potassium Level 4.0 MEQ/L Chloride Level 109 MEQ/L Carbon Dioxide Level 16.7 MEQ/L Anion Gap 13 MEQ/L Estimat Glomerular Filtration Rate 76 ML/MIN Vancomycin Level Trough 19.7 MCG/ML White Blood Count 1.0 TH/MM3 Red Blood Count 2.78 MIL/MM3 Hemoglobin 8.9 GM/DL Hematocrit 26.1 % Mean Corpuscular Volume 94.0 FL Mean Corpuscular Hemoglobin 31.8 PG Mean Corpuscular Hemoglobin Concent 33.9 % Red Cell Distribution Width 21.3 % Platelet Count 18 TH/MM3 Mean Platelet Volume 7.7 FL Neutrophils (%) (Auto) 94.4 % Lymphocytes (%) (Auto) 3.5 % Monocytes (%) (Auto) 1.3 % Eosinophils (%) (Auto) 0.8 % Basophils (%) (Auto) 0.0 % Neutrophils # (Auto) 1.0 TH/MM3 Lymphocytes # (Auto) 0.0 TH/MM3 Monocytes # (Auto) 0.0 TH/MM3 Eosinophils # (Auto) 0.0 TH/MM3 Basophils # (Auto) 0.0 TH/MM3 CBC Comment AUTO DIFF Culture Results Microbiology Date/Time Source Procedure Growth Status 01/04/17 15:20 Blood Other Aerobic Blood Culture Pending Received 01/04/17 15:20 Blood Other Anaerobic Blood Culture Pending Received 01/03/17 17:13 Blood Peripheral Aerobic Blood Culture - Preliminary Gram Positive Cocci Resulted 01/03/17 17:13 Anaerobic Blood Culture - Preliminary Gram Positive Cocci Resulted 01/03/17 17:12 Blood Other Aerobic Blood Culture - Preliminary Gram Positive Cocci Resulted 01/03/17 17:12 Blood Other Anaerobic Blood Culture - Preliminary NO GROWTH IN 1 DAY Resulted 01/02/17 21:50 Blood Peripheral Aerobic Blood Culture - Final S. Aureus Mrsa Complete 01/02/17 21:50 Anaerobic Blood Culture - Final S. Aureus Mrsa Complete 01/02/17 20:39 Blood Peripheral Aerobic Blood Culture - Final S. Aureus Mrsa Complete 01/02/17 20:39 Anaerobic Blood Culture - Final S. Aureus Mrsa Complete 01/02/17 19:50 Urine Clean Catch Urine Culture - Final <10,000 CFU/ML GRAM POSITIVE SCOUT Complete Administered Medications Medications (Trade) Dose Ordered Sig/Daniel Route PRN Reason Start Time Stop Time Status Last Admin Dose Admin Prednisone (Deltasone) 20 mg DAILY PO 12/29/16 09:00 01/04/17 09:01 Pantoprazole Sodium (Protonix) 40 mg DAILY PO 12/29/16 09:00 01/04/17 09:01 Acetazolamide (Diamox) 250 mg BID PO 12/29/16 21:00 01/04/17 21:14 Allopurinol (Zyloprim) 200 mg DAILY PO 12/30/16 09:00 01/04/17 09:01 Calcium/Vitamin D (Oscal-D 250-125) 500 mg Q12HR PO 12/29/16 21:00 01/04/17 21:14 Diltiazem HCl (Cardizem Cd) 240 mg DAILY PO 12/30/16 09:00 01/04/17 09:01 Diphenhydramine HCl (Benadryl) 25 mg Q4H PRN PO SEE LABEL COMMENTS 12/29/16 11:00 12/31/16 17:49 Lactobacillus Acidophilus (Lactinex) 1 tab TID PO 12/29/16 13:00 01/04/17 18:30 Megestrol Acetate (Megace Liq) 400 mg DAILY PO 12/30/16 09:00 01/04/17 09:01 Metoprolol Tartrate (Lopressor) 25 mg Q12HR PO 12/29/16 21:00 01/04/17 21:14 Hydrocortisone (Nutracort 1% Oint) 1 applic BID TOPICAL 12/29/16 13:00 01/03/17 22:47 Sodium Chloride (NS Flush) 2 ml UNSCH PRN IV FLUSH FLUSH AFTER USING IV ACCESS 12/29/16 12:00 01/04/17 21:08 Sodium Chloride (NS Flush) 2 ml BID IV FLUSH 12/29/16 21:00 01/04/17 21:15 Acetaminophen (Tylenol) 650 mg Q4H PRN PO TEMP > 100.4 12/29/16 11:30 01/03/17 00:11 Oxycodone/ Acetaminophen (Percocet 10-325 Mg) 1 tab Q6H PRN PO PAIN SCALE 6 TO 10 12/29/16 11:30 01/03/17 18:43 Morphine Sulfate (Morphine Inj) 4 mg Q3H PRN IV PUSH Pain 6-10;if unable to take PO 12/29/16 11:30 01/04/17 21:07 Senna/Docusate Sodium (Cindy-Colace) 1 tab BID PO 12/29/16 21:00 01/04/17 09:01 Levothyroxine Sodium (Synthroid) 25 mcg DAILY@0600 PO 12/31/16 06:00 01/05/17 05:39 Insulin Human Regular (NovoLIN R SUPPLEMENTAL SCALE) 1 ACHS SLIDING SCALE SQ 01/01/17 21:00 01/03/17 17:35 Insulin Detemir (Levemir Inj) 5 units Q12HR SQ 01/02/17 09:00 01/04/17 23:44 Cefepime HCl 2000 mg/Sodium Chloride 100 ml @ 200 mls/hr Q8HR IV 01/03/17 14:00 01/05/17 05:58 Fluconazole (Diflucan) 200 mg DAILY PO 01/03/17 11:00 01/04/17 09:01 Filgrastim (Neupogen Inj) 480 mcg DAILY@14 SQ 01/03/17 14:00 01/04/17 14:00 Leucovorin Calcium 25 mg/ Sodium Chloride 50 ml @ 200 mls/hr Q6H IV 01/03/17 12:00 01/05/17 12:14 01/05/17 05:39 Sodium Chloride 1,000 ml @ 60 mls/hr [id number] IV 01/03/17 20:00 01/04/17 19:00 Vancomycin HCl 1000 mg/Sodium Chloride 250 ml @ 250 mls/hr Q12H IV 01/05/17 00:00 01/05/17 00:33 Objective Remarks GENERAL PHYSICAL APPEARANCE: Mr. Chou is an elderly male. He is tall, heavyset. He appears to be in no acute distress. He appears to have a diffuse rash over his arms, face and legs. HEENT: Had is atraumatic, normocephalic. Conjunctivae are pale, sclerae are anicteric. EOMI. PERRLA. Oral exam - no pharyngeal erythema. NECK EXAM: No palpable cervical or supraclavicular lymphadenopathy. RESPIRATORY EXAM: Good air movement bilaterally. No added breath sounds. CARDIOVASCULAR EXAM: Regular rate and rhythm. S1, S2, without any obvious murmurs, rubs or gallops. ABDOMINAL EXAM: Obese belly, soft and nontender, nondistended. No palpable organ enlargement. LOWER EXTREMITIES: Bilateral pretibial edema. No calf tenderness. 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 SKIN EXTREMITIES: He has an exfoliative rash noted over his arms, especially on his back and torso. Assessment/Plan Assessment Mr. Chou is a 71-year-old male with a diagnosis of B-cell acute lymphoblastic leukemia ([place] chromosome negative). His disease is associated with very complex cytogenetics and unfortunately this predicts a poor outcome and high rates of relapse despite appropriate and aggressive treatment. He is status post induction remission therapy with Hyper-CVAD with Rituxan and intrathecal chemotherapy which was delivered in mid-October of 2016. 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 Plan 1. Pt had consolidation chemotherapy of hyper-CVAD arm B from 12/30/2016 through 01/02/2017. Leucovorin rescue continues at 50mg Q6H. His methotrexate level remains elevated at last result of 0.08. This should be less than 0.05 prior to stopping the leucovorin. 2. Kidney function is slightly improved, continue IVF. 3. He remains quite painful with generalized body aches and neck pain. He has no nuchal rigidity on exam and has been afebrile for the past 24 hours. 4. MRSA bacteremia. 5. Will bolus with 1000cc NS over 2-3 hours. 6. Chemotherapy associated myelosuppression. Start Neupogen 480mcg sq daily. Transfuse PLTs and pRBCs as needed. 7. DM: On regular insulin SS and insulin detemir 5 units sq q12hrs. Transfer to ICU if he destabilizes. Sukhwinder Rice MD Jan 05, 2017 08:30
[2017-01-05] MEDS: FLUCONAZOLE 200 MG TAB PO SCH (08:37)
[2017-01-05] MEDS: INSULIN NovoLIN REGULAR SUPPLEMENTAL SCALE SQ SCH ×3 (08:37→20:51)
[2017-01-05] MEDS: INSULIN DETEMIR 100 UNITS/ML VIAL SQ SCH ×2 (08:37→20:51)
[2017-01-05] MEDS: HYDROCORTISONE 1% OINT 30 GM TUBE TOPICAL SCH ×2 (08:39→21:00)
--- NOTE | 2017-01-05 10:25 | HHI.IDPN ---
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 He received induction chemotherapy at that time, and hospitalization complicated by neutropenic fevers. He also developed a rash and subsequently underwent skin biopsy which revealed vacuolar interface dermatitis. Differential diagnosis of that biopsy included fixed drug eruption, erythema multiforme, GVHD, and conncetive tissue disease. His skin rash improved with systemic corticosteroids. He has been admitted for consolidation chemotherapy. He received MTX and cytarabine. Since yesterday, he started having fevers. he is complaining of body malaise, diffuse body aches, and neck pain. Denies headache or photophobia. No respiratory complaints. No GI or complaints. His skin is better, and less itchy. 2 BC done yesterday, one is growing GPC. Infectious Disease consultation has been requested to evaluate patient with fevers. He is not neutropenic. he is on IV Vanco, Cefepime and Diflucan. Notes reviewed D/W RN Lethargic this morning Dyspneic, though sats good on 2L, increased O2 from 2L to 3L Temps better All BC done with MRSA States neck pain is better UA ok Pancytopenia Echo not a good study Antibiotics I attest that I obtained, updated or reviewed the home and current medications. Vanco Cefepime Diflucan Current Medications Medications (Trade) Dose Ordered Sig/Daniel Route Start Time Stop Time Status Last Admin (Reglan Inj) 5 mg Q6H PRN IV PUSH 12/29/16 08:00 (Ambien) 5 mg HS PRN PO 12/29/16 21:00 (Deltasone) 20 mg DAILY PO 12/29/16 09:00 01/05/17 08:01 (Protonix) 40 mg DAILY PO 12/29/16 09:00 01/05/17 08:01 (Diamox) 250 mg BID PO 12/29/16 21:00 01/05/17 08:01 (Zyloprim) 200 mg DAILY PO 12/30/16 09:00 01/05/17 08:00 (Oscal-D 250-125) 500 mg Q12HR PO 12/29/16 21:00 01/04/17 21:14 (Cardizem Cd) 240 mg DAILY PO 12/30/16 09:00 01/05/17 08:01 (Benadryl) 25 mg Q4H PRN PO 12/29/16 11:00 12/31/16 17:49 (Lactinex) 1 tab TID PO 12/29/16 13:00 01/05/17 08:00 (Megace Liq) 400 mg DAILY PO 12/30/16 09:00 01/04/17 09:01 (Lopressor) 25 mg Q12HR PO 12/29/16 21:00 01/05/17 08:01 (Nutracort 1% Oint) 1 applic BID TOPICAL 12/29/16 13:00 01/03/17 22:47 (NS Flush) 2 ml UNSCH PRN IV FLUSH 12/29/16 12:00 01/04/17 21:08 (NS Flush) 2 ml BID IV FLUSH 12/29/16 21:00 01/04/17 21:15 (Tylenol) 650 mg Q4H PRN PO 12/29/16 11:30 01/03/17 00:11 (Zofran Inj) 4 mg Q6H PRN IVP 12/29/16 11:30 (Compazine Supp) 25 mg Q12H PRN RECTAL 12/29/16 11:30 (Tylenol) 650 mg Q6H PRN PO 12/29/16 11:30 (Percocet 5-325 Mg) 1 tab Q6H PRN PO 12/29/16 11:30 (Percocet 10-325 Mg) 1 tab Q6H PRN PO 12/29/16 11:30 01/03/17 18:43 (Morphine Inj) 2 mg Q3H PRN IV PUSH 12/29/16 11:30 (Morphine Inj) 4 mg Q3H PRN IV PUSH 12/29/16 11:30 01/05/17 07:54 (Narcan Inj) 0.4 mg UNSCH PRN IV PUSH 12/29/16 11:45 (Cindy-Colace) 1 tab BID PO 12/29/16 21:00 01/05/17 08:01 (Milk Of Magnesia Liq) 30 ml Q12H PRN PO 12/29/16 11:45 (Senokot) 17.2 mg Q12H PRN PO 12/29/16 11:45 (Dulcolax Supp) 10 mg DAILY PRN RECTAL 10/16/17 11:45 (Lactulose Liq) 30 ml DAILY PRN PO 12/29/16 11:45 (Synthroid) 25 mcg DAILY@0600 PO 12/31/16 06:00 01/05/17 05:39 (Benadryl) 25 mg Q4H PRN PO 12/31/16 07:45 (NovoLIN R SUPPLEMENTAL SCALE) 1 ACHS SLIDING SCALE SQ 01/01/17 21:00 01/05/17 08:37 (Levemir Inj) 5 units Q12HR SQ 01/02/17 09:00 01/05/17 08:37 Cefepime HCl 2000 mg/Sodium Chloride 100 ml @ 200 mls/hr Q8HR IV 01/03/17 14:00 01/05/17 05:58 (Diflucan) 200 mg DAILY PO 01/03/17 11:00 01/05/17 08:37 (Neupogen Inj) 480 mcg DAILY@14 SQ 01/03/17 14:00 01/04/17 14:00 Pharmacy Profile Note 0 ml @ 0 mls/hr UNSCH OTHER 01/03/17 11:30 Leucovorin Calcium 25 mg/ Sodium Chloride 50 ml @ 200 mls/hr Q6H IV 01/03/17 12:00 01/05/17 12:14 01/05/17 05:39 Sodium Chloride 1,000 ml @ 60 mls/hr [id number] IV 01/03/17 20:00 01/04/17 19:00 Vancomycin HCl 1000 mg/Sodium Chloride 250 ml @ 250 mls/hr Q12H IV 01/05/17 00:00 01/05/17 00:33 Miscellaneous Information SPECIFIC LAB TO BE [facility]... ONCE ONCE .XX 01/06/17 11:45 01/06/17 11:46 (Neupogen Inj) 480 mcg DAILY@14 SQ 01/05/17 14:00 Lines Port Past Medical History 1. 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 2. Acute kidney failure (now recovered). 3. 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 4. Severe rash, currently present. 5. Protein calorie malnutrition. 6. Chemotherapy-related myelosuppression. 7. Atrial fibrillation. Past Surgical History 1. Appendectomy. 2. Benign polyp removal from the throat. 3. Lumbar puncture with intrathecal chemotherapy injection. 4. Port placement. 5. Bone marrow biopsy and aspiration. 6. Skin biopsy Allergies: Coded Allergies: No Known Allergies (Unverified , 10/24/16) Objective . Vital Signs Date Time Temp Pulse Resp B/P (MAP) Pulse Ox O2 Delivery O2 Flow Rate FiO2 01/05/17 08:12 100 Nasal Cannula 3.00 01/05/17 07:51 98.6 85 16 127/72 (90) 100 01/05/17 04:16 98.5 105 18 123/65 (84) 95 01/05/17 04:03 114 01/05/17 00:07 112 01/04/17 23:53 98.1 99 18 143/83 (103) 100 01/04/17 20:54 Nasal Cannula 2.00 01/04/17 20:53 98.7 106 18 134/87 (103) 100 01/04/17 20:23 109 01/04/17 17:00 97.2 130 14 114/76 (89) 96 01/04/17 12:58 99.0 132 14 127/63 (84) 93 . Laboratory Tests Test 01/04/17 05:00 01/05/17 05:45 White Blood Count 2.9 TH/MM3 1.0 TH/MM3 Red Blood Count 2.77 MIL/MM3 2.78 MIL/MM3 Hemoglobin 8.9 GM/DL 8.9 GM/DL Hematocrit 25.8 % 26.1 % Mean Corpuscular Volume 93.0 FL 94.0 FL Mean Corpuscular Hemoglobin 31.9 PG 31.8 PG Mean Corpuscular Hemoglobin Concent 34.3 % 33.9 % Red Cell Distribution Width 21.3 % 21.3 % Platelet Count 38 TH/MM3 18 TH/MM3 Mean Platelet Volume 7.6 FL 7.7 FL Neutrophils (%) (Auto) 98.9 % 94.4 % Lymphocytes (%) (Auto) 0.7 % 3.5 % Monocytes (%) (Auto) 0.2 % 1.3 % Eosinophils (%) (Auto) 0.1 % 0.8 % Basophils (%) (Auto) 0.1 % 0.0 % Neutrophils # (Auto) 2.9 TH/MM3 1.0 TH/MM3 Lymphocytes # (Auto) 0.0 TH/MM3 0.0 TH/MM3 Monocytes # (Auto) 0.0 TH/MM3 0.0 TH/MM3 Eosinophils # (Auto) 0.0 TH/MM3 0.0 TH/MM3 Basophils # (Auto) 0.0 TH/MM3 0.0 TH/MM3 CBC Comment AUTO DIFF AUTO DIFF Differential Comment AUTO DIFF CONFIRMED FINAL DIFF MANUAL Platelet Estimate LOW RARE Platelet Morphology Comment NORMAL NORMAL Differential Total Cells Counted 100 Neutrophils % (Manual) 93 % Band Neutrophils % 1 % Lymphocytes % 6 % Neutrophils # (Manual) 0.9 TH/MM3 Laboratory Tests Test 01/04/17 05:00 01/04/17 23:05 Blood Urea Nitrogen 33 MG/DL 32 MG/DL Creatinine 1.23 MG/DL 0.98 MG/DL Random Glucose 168 MG/DL 189 MG/DL Total Protein 5.7 GM/DL Albumin 2.3 GM/DL Calcium Level 8.2 MG/DL 8.7 MG/DL Alkaline Phosphatase 58 U/L Aspartate Amino Transf (AST/SGOT) 18 U/L Alanine Aminotransferase (ALT/SGPT) 46 U/L Total Bilirubin 0.7 MG/DL Sodium Level 139 MEQ/L 139 MEQ/L Potassium Level 3.9 MEQ/L 4.0 MEQ/L Chloride Level 111 MEQ/L 109 MEQ/L Carbon Dioxide Level 19.4 MEQ/L 16.7 MEQ/L Anion Gap 9 MEQ/L 13 MEQ/L Estimat Glomerular Filtration Rate 58 ML/MIN 76 ML/MIN Microbiology Date/Time Source Procedure Growth Status 01/04/17 15:20 Blood Other Aerobic Blood Culture Pending Received 01/04/17 15:20 Blood Other Anaerobic Blood Culture Pending Received 01/03/17 17:13 Blood Peripheral Aerobic Blood Culture - Final S. Aureus Mrsa Complete 01/03/17 17:13 Anaerobic Blood Culture - Final S. Aureus Mrsa Complete 01/03/17 17:12 Blood Other Aerobic Blood Culture - Final S. Aureus Mrsa Resulted 01/03/17 17:12 Blood Other Anaerobic Blood Culture - Preliminary NO GROWTH IN 1 DAY Resulted 01/02/17 21:50 Blood Peripheral Aerobic Blood Culture - Final S. Aureus Mrsa Complete 01/02/17 21:50 Anaerobic Blood Culture - Final S. Aureus Mrsa Complete 01/02/17 20:39 Blood Peripheral Aerobic Blood Culture - Final S. Aureus Mrsa Complete 01/02/17 20:39 Anaerobic Blood Culture - Final S. Aureus Mrsa Complete 01/02/17 19:50 Urine Clean Catch Urine Culture - Final <10,000 CFU/ML GRAM POSITIVE SCOUT Complete Imaging Last Impressions Chest X-Ray 01/03/17 0000 Signed Impressions: Service Date/Time: Tuesday, January 03, 2017 22:02 - CONCLUSION: 1. [id number] in superior vena cava. No consolidation or significant effusion. Hao Lea MD Physical Exam GENERAL: Lethargic, looks dyspneic at rest SKIN: Warm and dry. Has dry skin, with some scattered papules, and some with exfoliation HEAD: Atraumatic. Normocephalic. No temporal wasting, or tenderness. EYES: Hundred conjunctiva. No petechia or hemorrhage. Pupils equal, round and reactive to light. Extraocular movements full and intact. No scleral icterus. No injection or drainage. EARS, NOSE AND THROAT: Nose without bleeding or purulent nasal discharge. He is edentulous, with some oral thrush, dry oral mucosa. No oral lesions NECK: Trachea midline. Supple and not tender, no meningeal sign. No nuchal rigidity CARDIOVASCULAR: Regular rate and rhythm. No murmurs, rubs or gallops heard RESPIRATORY: Decreased BS luh. Port in L upper chest, accessed, no evidence of infection ABDOMEN: Soft, non-tender, nondistended. Bowel sounds present and normoactive. No guarding. No rebound. No organomegaly. Some ecchymoses on L side of abdomen EXTREMITIES: No clubbing, cyanosis, or edema. No joint effusion, has good ROM. No calf tenderness. Well perfused and warm. NEUROLOGICAL: Non-focal. PSYCHIATRIC: Lethargic LINE: No evidence of infection Assessment & Plan Remarks IMPRESSION MRSA sepsis, source, worrisome for port Fevers, patient with ALL, receiving consolidation chemotherapy - due to sepsis Lethargic and SOB ALL, on consolidation chemo Renal insufficiency, worse Skin rash Oral thrush neck pain, ?musculoskeletal RECOMMENDATION Repeat BC to document clearing CXR now May need closer monitoring If more (+) BC will need removal of port Continue empiric Abx: Vanco, Cefepime, Diflucan Monitor temps Monitor counts If neck pain continues will do MRI cervical spine D/W Deonna William MD Jan 05, 2017 10:25
--- NOTE | 2017-01-05 10:55 | HHI.PR ---
Subjective Remarks Patient confused this morning. Nurses note change in mentation. Patient appears to be conversant, however unintelligible speech. Appears to answer that he is not in pain. Objective Vital Signs Date Time Temp Pulse Resp B/P (MAP) Pulse Ox O2 Delivery O2 Flow Rate FiO2 01/05/17 10:33 83/53 (63) 01/05/17 08:12 100 Nasal Cannula 3.00 01/05/17 07:51 98.6 85 16 127/72 (90) 100 01/05/17 04:16 98.5 105 18 123/65 (84) 95 01/05/17 04:03 114 01/05/17 00:07 112 01/04/17 23:53 98.1 99 18 143/83 (103) 100 01/04/17 20:54 Nasal Cannula 2.00 01/04/17 20:53 98.7 106 18 134/87 (103) 100 01/04/17 20:23 109 01/04/17 17:00 97.2 130 14 114/76 (89) 96 01/04/17 12:58 99.0 132 14 127/63 (84) 93 I/O 01/04/17 01/04/17 01/04/17 01/05/17 01/05/17 01/05/17 07:00 15:00 23:00 07:00 15:00 23:00 Intake Total 312.5 ml 960 ml 1160 ml Output Total 575 ml 150 ml 325 ml 450 ml Balance -575 ml 162.5 ml 635 ml 710 ml Intake Oral 960 ml 120 ml IV Total 312.5 ml 1040 ml Output Urine Total 575 ml 150 ml 325 ml 450 ml # Voids 3 3 Result Diagram: 01/05/17 0545 01/04/17 0738 Objective Remarks GENERAL: ling in bed. confused. unintelligible speech. Obeys simple commands. Moves all extremities. SKIN: Warm and dry. HEAD: Normocephalic. EYES: No scleral icterus. No injection or drainage. NECK: Supple, trachea midline. No JVD. CARDIOVASCULAR: Regular rate and rhythm without murmurs, gallops, or rubs. RESPIRATORY: Breath sounds equal bilaterally. No accessory muscle use. GASTROINTESTINAL: Abdomen soft, non-tender, nondistended. MUSCULOSKELETAL: No cyanosis, or edema. BACK: Nontender without obvious deformity. No CVA tenderness. A/P Assessment and Plan //B-cell acute lymphoblastic leukemia-on chemotherapy per Dr. Rice //sepsis/ immunocompromised- /Neutropenic sepsis - started on Vanco and Cefepime- started on Neupogen- ID consulted. = 01/05. Patient more confused, tachypneic. Leukopenia 1.0. Refills 0.0 Await results of chest x-ray, ABG, stat labs ordered this morning. Patient to be transferred to pararescue manager service. Discussed with oncology. //MRSA bacteremia; -Cultures from 01/02, 01/03 all positive. 01/04 cultures negative to date. Continue antibiotics as per infectious disease. Echocardiogram 01/04 with ejection fraction 4045 percent did not show vegetations, however imaging is not sufficient to exclude vegetations. Appreciate assistance. //acute kidney injury; continue IV fluid- monitor I/O and renal function closely - = Creatinine stable 0.9. BUN 30s //oral thruch; on Diflucan //Chronic skin rash- continue steroids //Atrial fibrillation with RVR; overall HR better today; continue on his beta krystina and calcium channel krystina for rate control //anemia- due to chemo- transfused with PRBC- H/H improved- continue to monitor. //thrombocytopenia; due to chemo- oncology following. //hyperglycemia- steroid-induced; continue with accu-check and SSI = Glucose continues in the 190s. Acceptable. Continue sliding cell, continued to monitor. //hypothyroidism; TSH 5.96 on this admission. Acceptable. Continue synthroid. Will need to be rechecked in the ambulatory setting. //mild hypokalemia; replaced-results of replacement. Repeat labs today pending. //generalized weakness-PT following. Appreciate assistance. //DVT prophylaxis with SCD's- ( Lovenox on hold due to thrombocytopenia) Discharge Planning Patient will be transferred to pararescue manager service. Discussed with oncology. Rich Green MD Jan 05, 2017 10:55
--- NOTE | 2017-01-05 11:18 | RADRPT ---
EXAM DATE/TIME: 01/05/2017 10:34 [facility] COMPARISON: CHEST PA & LAT, January 03, 2017, 22:02. CHEST SINGLE AP, October 29, 2016, 8:10. INDICATIONS : Evaluate dyspnea. MEDICAL HISTORY : Leukemia. Dyspnea. SURGICAL HISTORY : Appendectomy. Infusaport. ENCOUNTER: Subsequent ACUITY: 4 - 6 days PAIN SCORE: 0/10 LOCATION: Bilateral chest FINDINGS: Left subclavian [id number] with catheter tip in the proximal SVC. Minimal bibasilar airspace disea se, likely atelectasis. Cardiomediastinal contours are stable given differences in technique. Bony th orax is intact. CONCLUSION: 1. Minimal bibasilar airspace disease, likely atelectasis. 2. Otherwise, no acute abnormality or significant interval change. Armando Martínez MD on January 05, 2017 at 11:15 Board Certified Radiologist. This report was verified electronically.
[2017-01-05 12:35] LABS: ALT (GPT) 31 U/L (12-78); ANION GAP 9 MEQ/L (5-15); AST (GOT) 9 U/L (15-37); BICARBONATE 17.3 MEQ/L (21.0-32.0); BLOOD UREA NITROGEN 34 MG/DL (7-18); CHLORIDE 112 MEQ/L (98-107); GLOMERULAR FILTRATION RATE 70 ML/MIN (>89); MAGNESIUM 2.2 MG/DL (1.5-2.5); POTASSIUM 4.2 MEQ/L (3.5-5.1); SODIUM (NA) 138 MEQ/L (136-145)
[2017-01-05 12:37] LABS: ALKALINE PHOSPHATASE 54 U/L (45-117); TOTAL BILIRUBIN ADULT 0.8 MG/DL (0.2-1.0)
--- NOTE | 2017-01-05 12:42 | RADRPT ---
EXAM DATE/TIME: 01/05/2017 11:54 [facility] COMPARISON: No previous studies available for comparison. INDICATIONS : Lethargic RADIATION DOSE: 56.35 CTDIvol (mGy) MEDICAL HISTORY : Leukemia. Cardiovascular disease Hypertension. SURGICAL HISTORY : Appendectomy. ENCOUNTER: Initial ACUITY: 1 day PAIN SCALE: Non-responsive LOCATION: cranial TECHNIQUE: Multiple contiguous axial images were obtained of the head. Using automated exposure control and adj ustment of the mA and/or kV according to patient size, radiation dose was kept as low as reasonably a chievable to obtain optimal diagnostic quality images. DICOM format image data is available electro nically for review and comparison. FINDINGS: CEREBRUM: The ventricles are normal for age. No evidence of midline shift, mass lesion, hemorrhage or acute in farction. No extra-axial fluid collections are seen. POSTERIOR FOSSA: The cerebellum and brainstem are intact. The 4th ventricle is midline. The cerebellopontine angle i s unremarkable. EXTRACRANIAL: The visualized portion of the orbits is intact. SKULL: The calvaria is intact. No evidence of skull fracture. CONCLUSION: Negative noncontrast CT Wander Hodges MD on January 05, 2017 at 12:40 Board Certified Radiologist. This report was verified electronically.
[2017-01-05] MEDS ORDERED: IOHEXOL 350 MG/ML 10 ML VIAL (for RAD DIAG) IVCONTRAST ONE (12:50)
--- NOTE | 2017-01-05 13:09 | RADRPT ---
EXAM DATE/TIME: 01/05/2017 11:54 [facility] COMPARISON: No previous studies available for comparison. INDICATIONS : Evaluate for abscess,fever IV CONTRAST: 60 cc Omnipaque 350 (iohexol) IV RADIATION DOSE: 14.70 CTDIvol (mGy) MEDICAL HISTORY : Leukemia. Hypertension. Cardiovascular disease SURGICAL HISTORY : Appendectomy. ENCOUNTER: Initial ACUITY: 1 day PAIN SCALE: Non-responsive LOCATION: neck TECHNIQUE: Volumetric scanning of the neck was performed. Using automated exposure control and adjustment of th e mA and/or kV according to patient size, radiation dose was kept as low as reasonably achievable to obtain optimal diagnostic quality images. DICOM format image data is available electronically for r eview and comparison. FINDINGS: NASOPHARYNX: The nasopharyngeal airway has a normal configuration. No mucosal thickening or mass is seen. OROPHARYNX: The intrinsic muscles of the tongue are symmetric. The tonsillar pillars are intact. The prevertebr al soft tissues are not thickened. LARYNX: The supraglottic, glottic, and infraglottic structures are intact. PARAPHARYNGEAL: The parapharyngeal space is intact. SALIVARY GLANDS: The parotid and submandibular glands are intact. LYMPH NODES: No enlarged or necrotic-appearing nodes. THYROID: Homogeneous enhancement without evidence of nodule. BONES: Moderate right-sided facet joint hypertrophy C5-7.. CONCLUSION: Negative CT soft tissue neck with contrast. Dion Alford MD on January 05, 2017 at 13:04 Board Certified Radiologist. This report was verified electronically.
[2017-01-05] MEDS ORDERED: FILGRASTIM 480 MCG/1.6 ML VIAL SQ SCH (14:00)
[2017-01-05 14:02] LABS: BLOOD GAS BASE EXCESS -10.1 mmol/L (-2-2); BLOOD GAS CARBOXYHEMOGLOBIN 1.5 % (0-4); BLOOD GAS HCO3 14 mmol/L (22-26); BLOOD GAS METHEMOGLOBIN 1.2 % (0-2); BLOOD GAS O2 HGB SATURATION 96 % (90-100); BLOOD GAS OXYGEN CONTENT 16.8 Vol % (12.0-20.0); BLOOD GAS PCO2 22 mmHg (38-42); BLOOD GAS PO2 123 mmHg (61-120); BLOOD GAS TOTAL HGB 12.3 G/DL (12.0-16.0); TEMP CORR TO 98.6
[2017-01-05 14:03] LABS: CRITICAL VALUE YES; DRAW SITE RT RADIAL; LITER FLOW 2 L/M; NUMBER OF ARTERIAL PUNCTURES 1; OXYGEN DEVICE NASAL CANNULA
[2017-01-05 14:06] LABS: STAT YES; ULNAR PULSE PRESENT
[2017-01-05] MEDS: FILGRASTIM 480 MCG/1.6 ML VIAL SQ SCH (14:40)
[2017-01-05] MEDS ORDERED: LIDOCAINE 2%/EPINEPHrine PF 1:200,000 20ML SDV I-DERMAL ONE (16:45)
[2017-01-05] MEDS ORDERED: LACTATED RINGER'S 1000 ML INJ 1,000 ML IV ONE (17:30)
[2017-01-05] MEDS: LACTATED RINGER'S 1000 ML INJ 1,000 ML IV SCH (18:09)
--- NOTE | 2017-01-05 20:23 | PD.CONS ---
HPI Service Critical Care Medicine Consult Requested By Oncology service Reason for Consult Respiratory distress Primary Care Physician Hallie Norris M.D. History of Present Illness This is a 71-year-old male with a history of B-cell lymphoma undergoing chemotherapy who was originally admitted to the hospital with febrile neutropenia and was found to have MRSA bacteremia. He is maintained on IV vancomycin. Despite this he is been increasingly more toxic appearing. His respiratory rate is been increasing and he is experiencing increasing respiratory distress. The patient tells me he feels fatigued. He endorses fever, chills, shortness of breath. He says he just doesn't feel well. Throughout the day stays become increasingly dyspneic with an rising respiratory rate. His ABG demonstrates a severe metabolic acidosis with a base deficit of 10. His blood cultures have been positive for 3 days despite adequate therapy. He does have a Port-A-Cath that remains in place. Critical care medicine is consulted to evaluate and manage his respiratory distress and persistent bacteremia, severe neutropenic sepsis Review of Systems ROS Limitations: Clinical Condition Constitutional: COMPLAINS OF: Fatigue, Fever, Chills, DENIES: Diaphoretic episodes Respiratory: DENIES: Cough, Hemoptysis, Sputum production, Shortness of breath Cardiovascular: DENIES: Chest pain, Palpitations, Syncope Gastrointestinal: DENIES: Abdominal pain, Black stools, Bloody stools, Constipation, Diarrhea, Nausea, Vomiting Neurologic: DENIES: Headache, Localized weakness Psychiatric: DENIES: Anxiety, Confusion Past Family Social History Allergies: Coded Allergies: No Known Allergies (Unverified , 10/24/16) Past Medical History B cell ANLL ([place] chromosome negative ( Acute kidney injury History of tumor lysis syndrome Severe rash Severe acute protein calorie malnutrition Chemotherapy-related myelosuppression is Atrial fibrillation Past Surgical History Appendectomy Benign polyp removal from the throat Lumbar puncture with intrathecal chemotherapy Port placement Bone marrow biopsy Reported Medications Protonix (Pantoprazole Sodium) 20 Mg Tab 20 Mg PO DAILY Prednisone 5 Mg Tab 5 Mg PO DAILY 30 mg po daily for three days then 20 mg po daily for three days then 10 mg po daily for three days then 5 mg po daily for three days then stop. Cardizem CD 24 HR (Diltiazem CD 24 HR) 240 Mg Caper 240 Mg PO DAILY 30 Days Acidophilus/l-Sporogenes (Lactobacillus Acidophilus) 35 Million Cell-25 Million Cell Tab 1 Tab PO TID Sucralfate Liq (Sucralfate) 1 Gram/10 Ml Maki 1 Gm PO ACHS Oyster Shell 250 mg + Vit D Tb (Calcium/Vitamin D) 250 Mg Calcium (625 Mg)-125 Unit Tablet 500 Mg PO Q12HR Oxycodone-Acetaminophen 5-325 mg Tab 1 Tab PO Q3H PRN Metoprolol Tartrate 25 Mg Tab 25 Mg PO Q12HR Megestrol Liq (Megestrol Acetate) 40 Mg/Ml Susp 400 Mg PO DAILY MDD 400 Benadryl Allergy (Diphenhydramine HCl) 25 Mg Cap 25 Mg PO Q4H PRN Adjustable Commode 3-in-1 (Device) 1 Mis Mis Ea .ROUTE DIRECTED Bedside Commode (Device) 1 Mis Mis Ea .ROUTE DIRECTED Walker Rolling/GetGo (Device) 1 Mis Mis Ea .ROUTE DIRECTED Zyloprim (Allopurinol) 100 Mg Tab 200 Mg PO DAILY Gnp Hydrocortisone Maximu (Hydrocortisone (Topical)) 1 % Oin 1 Applic TOPICAL BID 10 Days Prednisone 20 Mg Tab 40 Mg PO DAILY Take 40 mg (2 tablets) daily for 5 days Active Ordered Medications See MAR Family History Both parents of coronary artery disease. Per the patient's scwlolb-yr-wim , he has a family history of oncologic diseases Social History Patient is . Prior smoker that quit 40 years ago. Rarely EtOH Physical Exam Vital Signs Vital Signs Date Time Temp Pulse Resp B/P (MAP) Pulse Ox O2 Delivery O2 Flow Rate FiO2 01/05/17 18:00 94 01/05/17 16:45 92 01/05/17 16:45 98.8 92 22 145/75 (98) 100 01/05/17 13:27 98.1 88 18 119/80 (93) 100 01/05/17 10:33 83/53 (63) 01/05/17 08:12 100 Nasal Cannula 3.00 01/05/17 07:51 98.6 85 16 127/72 (90) 100 01/05/17 04:16 98.5 105 18 123/65 (84) 95 01/05/17 04:03 114 01/05/17 00:07 112 01/04/17 23:53 98.1 99 18 143/83 (103) 100 01/04/17 20:54 Nasal Cannula 2.00 01/04/17 20:53 98.7 106 18 134/87 (103) 100 01/04/17 20:23 109 Physical Exam GENERAL: Elderly male, lying in bed in acute distress. Very toxic appearing HEENT: Normocephalic. Atraumatic. Pupils equal, round, reactive, conjugate. Mucous membranes are dry NECK: Trachea is midline. There is no JVD. CHEST: Labored. Tachypnea. Using accessory muscles to breathe. Port-A-Cath in place CARDIOVASCULAR: Tachycardic rate, regular rhythm. Sinus by telemetry. ABDOMEN: Soft, nontender, nondistended. No guarding. MUSCULOSKELETAL: Pulses 2+. No peripheral edema. NEUROLOGICAL: RASS +1. In obvious distress. Follows commands. Nonfocal. Laboratory Laboratory Tests Test 01/04/17 23:05 01/05/17 05:45 01/05/17 11:39 01/05/17 13:44 Blood Urea Nitrogen 32 34 Creatinine 0.98 1.05 Random Glucose 189 200 Calcium Level 8.7 8.6 Sodium Level 139 138 Potassium Level 4.0 4.2 Chloride Level 109 112 Carbon Dioxide Level 16.7 17.3 Anion Gap 13 9 Estimat Glomerular Filtration Rate 76 70 Vancomycin Level Trough 19.7 White Blood Count 1.0 Red Blood Count 2.78 Hemoglobin 8.9 Hematocrit 26.1 Mean Corpuscular Volume 94.0 Mean Corpuscular Hemoglobin 31.8 Mean Corpuscular Hemoglobin Concent 33.9 Red Cell Distribution Width 21.3 Platelet Count 18 Mean Platelet Volume 7.7 Neutrophils (%) (Auto) 94.4 Lymphocytes (%) (Auto) 3.5 Monocytes (%) (Auto) 1.3 Eosinophils (%) (Auto) 0.8 Basophils (%) (Auto) 0.0 Neutrophils # (Auto) 1.0 Lymphocytes # (Auto) 0.0 Monocytes # (Auto) 0.0 Eosinophils # (Auto) 0.0 Basophils # (Auto) 0.0 CBC Comment AUTO DIFF Differential Total Cells Counted 100 Neutrophils % (Manual) 93 Band Neutrophils % 1 Lymphocytes % 6 Neutrophils # (Manual) 0.9 Differential Comment FINAL DIFF MANUAL Platelet Estimate RARE Platelet Morphology Comment NORMAL Methotrexate Level 0.05 Total Protein 5.9 Albumin 2.2 Phosphorus Level 3.3 Magnesium Level 2.2 Alkaline Phosphatase 54 Aspartate Amino Transf (AST/SGOT) 9 Alanine Aminotransferase (ALT/SGPT) 31 Total Bilirubin 0.8 Lactic Acid Level 1.1 Ammonia LESS THAN 10 B-Type Natriuretic Peptide 349 Blood Gas Puncture Site RT RADIAL Blood Gas Patient Temperature 98.6 Blood Gas HCO3 14 Blood Gas Base Excess -10.1 Blood Gas Oxygen Saturation 96 Arterial Blood pH 7.42 Arterial Blood Partial Pressure CO2 22 Arterial Blood Partial Pressure O2 123 Arterial Blood Oxygen Content 16.8 Arterial Blood Carboxyhemoglobin 1.5 Arterial Blood Methemoglobin 1.2 Blood Gas Hemoglobin 12.3 Oxygen Delivery Device NASAL CANNULA Blood Gas Liter Flow 2 Date/Time Source Procedure Growth Status 01/04/17 15:20 Blood Other Aerobic Blood Culture - Preliminary Gram Positive Cocci Resulted 01/04/17 15:20 Blood Other Anaerobic Blood Culture - Preliminary NO GROWTH IN 1 DAY Resulted 01/02/17 19:50 Urine Clean Catch Urine Culture - Final <10,000 CFU/ML GRAM POSITIVE SCOUT Complete Result Diagram: 01/05/17 0545 01/05/17 1139 Imaging Last Impressions Chest X-Ray 01/05/17 1021 Signed Impressions: Service Date/Time: Thursday, January 05, 2017 10:34 - CONCLUSION: 1. Minimal bibasilar airspace disease, likely atelectasis. 2. Otherwise, no acute abnormality or significant interval change. Armando Martínez MD Neck CT 01/05/17 0000 Signed Impressions: Service Date/Time: Thursday, January 05, 2017 11:54 - CONCLUSION: Negative CT soft tissue neck with contrast. Dion Alford MD Head CT 01/05/17 0000 Signed Impressions: Service Date/Time: Thursday, January 05, 2017 11:54 - CONCLUSION: Negative noncontrast CT Wander Hodges MD Assessment and Plan Assessment and Plan Assessment: 71yM with ALL and neutropenic sepsis and MRSA bacteremia. Clinically appears very toxic. I have spoken with general surgery and we will proceed with emergent removal of port-a-cath given this is the only implantable device and we still have persistently positive blood cultures. Although the patient's blood pressure and HR are normal, his worsening severe metabolic acidosis and base deficit as well as his respiratory distress and tachypnea are concerning and he clinically appears toxic. Very critically ill and high concern for clinical decompensation. Active Problems: Respiratory Distress Severe Sepsis Neutropenic Sepsis Neutropenia Thrombocytopenia Anemia secondary to chemotherapy MRSA Bacteremia Severe metabolic Acidosis Acute intravascular volume depletion Plan: - admit to ICU - 1L LR bolus and LR mivf @ 125 cc/hr - emergent gen surg consult and removal of port-a-cath - continue IV vancomycin - close monitoring - no active bleeding. will not transfuse - trend ABG - if clinically declines, may be forced to intubate - may require vasopressors - goal map > 65 mmHg - appreciate oncology and ID involvement. Code Status Full Code Grabiel Elliott MD Jan 05, 2017 20:23
[2017-01-05] MEDS: SODIUM CHLOR 0.9% 1000 ML INJ 1,000 ML IV SCH (20:51)
[2017-01-05] MEDS: METOPROLOL TARTRATE 5 MG/5 ML VIAL IV PUSH PRN (21:39)
[2017-01-05] MEDS ORDERED: CHLORHEXIDINE GLUCONATE 2 % 1 PACK (2 CLOTHS)(extra cloths) TOPICAL PRN (22:30)
[2017-01-06] VITALS (50 sets, daily range): BP systolic 118–217; BP diastolic 67–111; PULSE 92–163; RESP 11–52; TEMP 98.4–99.8; O2SAT 88–100
[2017-01-06] MEDS: CHLORHEXIDINE GLUCONATE 2 % 1 PACK (2 CLOTHS)(taper/protocol) TOPICAL SCH (01:20)
[2017-01-06] MEDS: LACTATED RINGER'S 1000 ML INJ 1,000 ML IV SCH (01:20)
[2017-01-06] MEDS: MORPHINE SULFATE 4 MG/ML INJ IV PUSH PRN ×3 (02:57→21:15)
[2017-01-06] MEDS: METOPROLOL TARTRATE 5 MG/5 ML VIAL IV PUSH PRN ×2 (03:38→08:56)
[2017-01-06] MEDS: CEFEPIME INJ 2,000 MG in SODIUM CHLORIDE 0.9% INJ 100 ML IV SCH ×3 (04:55→21:37)
[2017-01-06] MEDS: LEVOTHYROXINE SODIUM 25 MCG TAB PO SCH (04:55)
[2017-01-06 05:25] LABS: BLOOD GAS BASE EXCESS -9.9 mmol/L (-2-2); BLOOD GAS CARBOXYHEMOGLOBIN 1.8 % (0-4); BLOOD GAS HCO3 13 mmol/L (22-26); BLOOD GAS METHEMOGLOBIN 1.1 % (0-2); BLOOD GAS O2 HGB SATURATION 95 % (90-100); BLOOD GAS OXYGEN CONTENT 11.9 Vol % (12.0-20.0); BLOOD GAS PCO2 18 mmHg (38-42); BLOOD GAS PO2 99 mmHg (61-120); BLOOD GAS TOTAL HGB 8.8 G/DL (12.0-16.0); CRITICAL VALUE YES; DRAW SITE LT RADIAL; LITER FLOW 2 L/M; NUMBER OF ARTERIAL PUNCTURES 1; OXYGEN DEVICE NASAL CANNULA; STAT NO; TEMP CORR TO 98.6; ULNAR PULSE PRESENT
[2017-01-06] MEDS ORDERED: SODIUM BICARBONATE 8.4% INJ 150 MEQ in DEXTROSE 5% IN WATE 1000ML INJ 1,000 ML IV SCH ×2 (05:45)
--- NOTE | 2017-01-06 05:46 | MB ---
cc: LEO TAVERAS M.D. DATE OF CONSULTATION 01/05/2017 REASON FOR CONSULTATION MRSA line sepsis. HISTORY OF PRESENT ILLNESS Mr. Chou is a pleasant 71-year-old patient of Dr. Rice who is currently being treated for lymphoma. Apparently he has been progressively deteriorating and was transferred to the [facility] this afternoon. Dr. Marmolejo called me and asked me to evaluate the patient for line sepsis. Specifically, the patient has had multiple blood cultures grow back MRSA. The patient has a left subclavian Dmpdfv-F-Ooca in place. He is worried the patient may have line sepsis secondary to this. He reports he can find no other source of the patient's continued decline and sepsis. He asked me to come see the patient immediately to remove the Gfbsni-G-Jgku as he felt like this was the most likely cause of the sepsis. PAST MEDICAL HISTORY 1. B-cell lymphoblastic leukemia. 2. Renal insufficiency. 3. Malnutrition. 4. Atrial fibrillation. 5. Myelosuppression secondary to chemotherapy. PAST SURGICAL HISTORY 1. Appendectomy. 2. Polypectomy of the throat. 3. Pucuvq-I-Wuea placement. 4. Bone marrow aspiration. MEDICATIONS His medication list is extensive. Please see his chart. ALLERGIES He has no known drug allergies. SOCIAL HISTORY He is a former smoker but quit many years ago. He only drinks alcohol on a social basis. He is retired and and lives in [place]. FAMILY HISTORY Noncontributory. PHYSICAL EXAMINATION VITAL SIGNS: Temperature is 98, pulse is 100, blood pressure is 80/50, respiratory 20. GENERAL: A very ill-appearing gentleman who appears to have some dyspneic breathing. He does not feel well. HEENT: Pupils equal, round, reactive to light. Sclerae are white. Oropharynx is clear and moist. NECK: Supple. No masses. LUNGS: Clear to auscultation bilaterally. HEART: S1-S2, tachycardiac. Murmur. He has an Eybbsf-A-Jjnq in the left subclavian area which does not appear grossly infected externally. The skin appears clean. No erythema. ABDOMEN: Soft and nontender. EXTREMITIES: Free range of motion x4. NEUROLOGICAL: Alert and oriented x3. LABORATORY DATA White blood cell count is 1, hemoglobin is 8.9, platelet count is 18. His electrolytes are remarkable for hypochloremia at 112. BUN is elevated at 34, creatinine 1.05, glucose is 200,000, albumin is 2.2. MICROBIOLOGY The patient has had four blood cultures positive for MRSA. IMPRESSION Probable line sepsis with MRSA bacteremia. PLAN At this point I advised the patient I agree with Dr. Marmolejo that the Uzayiu-M-Xayb should be removed. The patient is agreeable. Nursing staff has been notified and that we will perform this and medially at the bedside. MD YONI Gonzalez/SSB /5:50 PM /5:29 AM
[2017-01-06 06:58] LABS: AUTOMATED NEUTROPHIL # 0.1 TH/MM3 (1.8-7.7); BASOPHIL % 0.4 % (0.0-2.0); HEMATOCRIT 23.9 % (39.0-51.0); LYMPH % 20.5 % (9.0-44.0); MEAN CELL VOLUME 92.9 FL (80.0-100.0); MEAN CORPUSCULAR HEMOGLOBIN 31.3 PG (27.0-34.0); MEAN CORPUSCULAR HGB CONC 33.7 % (32.0-36.0); MONO % 6.3 % (0.0-8.0); NEUT % 72.8 % (16.0-70.0); RED BLOOD COUNT 2.58 MIL/MM3 (4.50-5.90); WHITE BLOOD COUNT 0.2 TH/MM3 (4.0-11.0)
[2017-01-06 07:00] LABS: HEMO FLAGS AUTO DIFF
[2017-01-06 07:03] LABS: PLATELET COUNT 10 TH/MM3 (150-450)
[2017-01-06 07:14] LABS: ALT (GPT) 29 U/L (12-78); ANION GAP 11 MEQ/L (5-15); AST (GOT) 7 U/L (15-37); BICARBONATE 15.7 MEQ/L (21.0-32.0); BLOOD UREA NITROGEN 29 MG/DL (7-18); CHLORIDE 114 MEQ/L (98-107); GLOMERULAR FILTRATION RATE 70 ML/MIN (>89); POTASSIUM 3.6 MEQ/L (3.5-5.1); SODIUM (NA) 141 MEQ/L (136-145)
[2017-01-06] MEDS ORDERED: SODIUM BICARBONATE 8.4% INJ 50 MEQ/50 ML SYR IV PUSH ONE (07:15)
[2017-01-06 07:16] LABS: ALKALINE PHOSPHATASE 54 U/L (45-117); TOTAL BILIRUBIN ADULT 1.2 MG/DL (0.2-1.0)
--- NOTE | 2017-01-06 07:28 | HHI.CCPN ---
Subjective Remarks/Hospital Course Hospital Course: This is a 71-year-old male with a history of B-cell lymphoma undergoing chemotherapy who was originally admitted to the hospital with febrile neutropenia and was found to have MRSA bacteremia. He is maintained on IV vancomycin. Despite this he is been increasingly more toxic appearing. His respiratory rate is been increasing and he is experiencing increasing respiratory distress. The patient tells me he feels fatigued. He endorses fever, chills, shortness of breath. He says he just doesn't feel well. Throughout the day stays become increasingly dyspneic with an rising respiratory rate. His ABG demonstrates a severe metabolic acidosis with a base deficit of 10. His blood cultures have been positive for 3 days despite adequate therapy. He does have a Port-A-Cath that remains in place. Critical care medicine is consulted to evaluate and manage his respiratory distress and persistent bacteremia, severe neutropenic sepsis Subjective: 01/06: continues to be in significant respiratory distress with a severe non- gapped metabolic acidosis. also has been on diamox since 12/29. bicarbonate drip started this morning. lactate still < 2. hemodynamics stable. clinically appears hypovolemic. tachycardia persists. port removed yesterday. blood cultures continue to be positive for MRSA. on vancomycin with appropriate trough. Objective Vital Signs Date Time Temp Pulse Resp B/P (MAP) Pulse Ox O2 Delivery O2 Flow Rate FiO2 01/06/17 06:00 134 01/06/17 04:00 99.8 21 126/71 (89) 100 01/05/17 20:32 Nasal Cannula 2.00 01/03/17 22:46 21 Intake and Output 01/06/17 01/06/17 01/07/17 08:00 16:00 00:00 Intake Total 1350 ml Output Total 650 ml Balance 700 ml Result Diagram: 01/06/17 0623 01/06/17 0623 Other Results Microbiology Date/Time Source Procedure Growth Status 01/03/17 17:13 Blood Peripheral Aerobic Blood Culture - Final S. Aureus Mrsa Complete 01/03/17 17:13 Anaerobic Blood Culture - Final S. Aureus Mrsa Complete Laboratory Tests Test 01/05/17 13:44 01/06/17 05:00 Blood Gas Puncture Site RT RADIAL LT RADIAL Blood Gas Patient Temperature 98.6 98.6 Blood Gas HCO3 14 mmol/L (22-26) 13 mmol/L (22-26) Blood Gas Base Excess -10.1 mmol/L (-2-2) -9.9 mmol/L (-2-2) Blood Gas Oxygen Saturation 96 % (90-100) 95 % (90-100) Arterial Blood pH 7.42 (7.380-7.420) 7.48 (7.380-7.420) Arterial Blood Partial Pressure CO2 22 mmHg (38-42) 18 mmHg (38-42) Arterial Blood Partial Pressure O2 123 mmHg (61-120) 99 mmHg (61-120) Arterial Blood Oxygen Content 16.8 Vol % (12.0-20.0) 11.9 Vol % (12.0-20.0) Arterial Blood Carboxyhemoglobin 1.5 % (0-4) 1.8 % (0-4) Arterial Blood Methemoglobin 1.2 % (0-2) 1.1 % (0-2) Blood Gas Hemoglobin 12.3 G/DL (12.0-16.0) 8.8 G/DL (12.0-16.0) Oxygen Delivery Device NASAL CANNULA NASAL CANNULA Blood Gas Liter Flow 2 L/M 2 L/M Imaging Last Impressions Chest X-Ray 01/05/17 1021 Signed Impressions: Service Date/Time: Thursday, January 05, 2017 10:34 - CONCLUSION: 1. Minimal bibasilar airspace disease, likely atelectasis. 2. Otherwise, no acute abnormality or significant interval change. Armando Martínez MD Neck CT 01/05/17 0000 Signed Impressions: Service Date/Time: Thursday, January 05, 2017 11:54 - CONCLUSION: Negative CT soft tissue neck with contrast. Dion Alford MD Head CT 01/05/17 0000 Signed Impressions: Service Date/Time: Thursday, January 05, 2017 11:54 - CONCLUSION: Negative noncontrast CT Wander Hodges MD Objective Remarks GENERAL: Elderly male, lying in bed in acute distress. Very toxic appearing HEENT: Normocephalic. Atraumatic. Pupils equal, round, reactive, conjugate. Mucous membranes remain dry NECK: Trachea is midline. There is no JVD. CHEST: Labored. Tachypnea. Using accessory muscles to breathe. incision over chest wall dressing in tact. CARDIOVASCULAR: Tachycardic rate, regular rhythm. Sinus by telemetry. ABDOMEN: Soft, nontender, nondistended. No guarding. MUSCULOSKELETAL: Pulses 2+. No peripheral edema. NEUROLOGICAL: RASS 0. persists in distress. Follows commands. Nonfocal. A/P Assessment and Plan Assessment: 71yM with ALL and neutropenic sepsis and MRSA bacteremia. Clinically continues to appear toxic. This non-gapped acidosis is likely a large component of iatrogenic diamox use, although RTA cannot be excluded or other sources of bicarbonate losses. will give additional bicarb and check u/a. cell counts continue to be lower although no signs of active bleeding, will allow hematology to continue to manage these. f/u catheter tip culture. Continue broad spectrum abx. If catheter tip culture is negative, then we will need to pursue JOSETTE, but in his current respiratory distressed state, would defer JOSETTE until more stable from a pulmonary stance. Still very high risk for decompensation and continues to appear toxic. remain in the ICU. Active Problems: Respiratory Distress Severe Sepsis Neutropenic Sepsis Neutropenia Thrombocytopenia Anemia secondary to chemotherapy MRSA Bacteremia Severe [id number] metabolic Acidosis Acute intravascular volume depletion Plan: - remain in ICU - 1L LR bolus and continue bicarb drip at 75 cc/hr - d/c Diamox - send u/a with microscopy. eval for urine pH. - s/p port-a-cath removal 01/05. f/u tip culture. - continue IV vancomycin - close monitoring - no active bleeding. transfusions to be guided by hematology. - trend ABG - if clinically declines, may be forced to intubate - may require vasopressors - goal map > 65 mmHg - appreciate oncology and ID involvement. Grabiel Elliott MD Jan 06, 2017 07:28
[2017-01-06] MEDS ORDERED: LACTATED RINGER'S 1000 ML INJ 1,000 ML IV ONE (07:30)
--- NOTE | 2017-01-06 07:55 | PD.ONC.PN ---
Subjective Subjective Remarks Patient was seen and examined, vital signs, medications, labs, procedures, imaging studies and health management consultant notes reviewed. The patient was transferred to [facility] yesterday, his infusion port was removed due to persistent MRSA bacteremia. He remains on broad-spectrum antibiotics with vancomycin and cefepime. Subjectively, the patient reports abdominal pain, in fact reports pain diffusely present. He remained short of breath and appears to be acutely ill. He mumbles a few words. He appears to be awake and alert but just is in significant distress. Objective Data Date Time Temp Pulse Resp B/P (MAP) Pulse Ox O2 Delivery O2 Flow Rate FiO2 01/06/17 06:00 134 01/06/17 04:00 99.8 99 21 126/71 (89) 100 01/06/17 04:00 99 01/06/17 02:00 105 01/06/17 00:00 98 01/06/17 00:00 98.9 98 11 118/78 (91) 100 01/05/17 22:00 107 01/05/17 20:32 93 Nasal Cannula 2.00 01/05/17 20:00 98.4 109 30 188/88 (121) 92 01/05/17 20:00 109 01/05/17 19:00 100 Nasal Cannula 3.00 01/05/17 18:00 94 01/05/17 16:45 92 01/05/17 16:45 98.8 92 22 145/75 (98) 100 01/05/17 13:27 98.1 88 18 119/80 (93) 100 01/05/17 10:33 83/53 (63) 01/05/17 08:12 100 Nasal Cannula 3.00 01/05/17 07:51 98.6 85 16 127/72 (90) 100 01/06/17 01/06/17 01/06/17 07:00 15:00 23:00 Intake Total 1450 ml Output Total 650 ml Balance 800 ml Result Diagram: 01/06/1762201/06/17622 Laboratory Results Laboratory Tests Test 01/05/17 11:39 01/05/17 13:44 01/05/17 16:30 01/06/17 05:00 Blood Urea Nitrogen 34 MG/DL Creatinine 1.05 MG/DL Random Glucose 200 MG/DL Total Protein 5.9 GM/DL Albumin 2.2 GM/DL Calcium Level 8.6 MG/DL Phosphorus Level 3.3 MG/DL Magnesium Level 2.2 MG/DL Alkaline Phosphatase 54 U/L Aspartate Amino Transf (AST/SGOT) 9 U/L Alanine Aminotransferase (ALT/SGPT) 31 U/L Total Bilirubin 0.8 MG/DL Sodium Level 138 MEQ/L Potassium Level 4.2 MEQ/L Chloride Level 112 MEQ/L Carbon Dioxide Level 17.3 MEQ/L Anion Gap 9 MEQ/L Estimat Glomerular Filtration Rate 70 ML/MIN Lactic Acid Level 1.1 mmol/L Ammonia LESS THAN 10 MCMOL/L B-Type Natriuretic Peptide 349 PG/ML Blood Gas Puncture Site RT RADIAL LT RADIAL Blood Gas Patient Temperature 98.6 98.6 Blood Gas HCO3 14 mmol/L 13 mmol/L Blood Gas Base Excess -10.1 mmol/L -9.9 mmol/L Blood Gas Oxygen Saturation 96 % 95 % Arterial Blood pH 7.42 7.48 Arterial Blood Partial Pressure CO2 22 mmHg 18 mmHg Arterial Blood Partial Pressure O2 123 mmHg 99 mmHg Arterial Blood Oxygen Content 16.8 Vol % 11.9 Vol % Arterial Blood Carboxyhemoglobin 1.5 % 1.8 % Arterial Blood Methemoglobin 1.2 % 1.1 % Blood Gas Hemoglobin 12.3 G/DL 8.8 G/DL Oxygen Delivery Device NASAL CANNULA NASAL CANNULA Blood Gas Liter Flow 2 L/M 2 L/M Nasal Screen MRSA (PCR) MRSA DETECTED Test 01/06/17 06:23 White Blood Count 0.2 TH/MM3 Red Blood Count 2.58 MIL/MM3 Hemoglobin 8.1 GM/DL Hematocrit 23.9 % Mean Corpuscular Volume 92.9 FL Mean Corpuscular Hemoglobin 31.3 PG Mean Corpuscular Hemoglobin Concent 33.7 % Red Cell Distribution Width 21.0 % Platelet Count 10 TH/MM3 Mean Platelet Volume 7.6 FL Neutrophils (%) (Auto) 72.8 % Lymphocytes (%) (Auto) 20.5 % Monocytes (%) (Auto) 6.3 % Eosinophils (%) (Auto) 0.0 % Basophils (%) (Auto) 0.4 % Neutrophils # (Auto) 0.1 TH/MM3 Lymphocytes # (Auto) 0.0 TH/MM3 Monocytes # (Auto) 0.0 TH/MM3 Eosinophils # (Auto) 0.0 TH/MM3 Basophils # (Auto) 0.0 TH/MM3 CBC Comment AUTO DIFF Blood Urea Nitrogen 29 MG/DL Creatinine 1.05 MG/DL Random Glucose 161 MG/DL Total Protein 6.1 GM/DL Albumin 2.2 GM/DL Calcium Level 8.6 MG/DL Alkaline Phosphatase 54 U/L Aspartate Amino Transf (AST/SGOT) 7 U/L Alanine Aminotransferase (ALT/SGPT) 29 U/L Total Bilirubin 1.2 MG/DL Sodium Level 141 MEQ/L Potassium Level 3.6 MEQ/L Chloride Level 114 MEQ/L Carbon Dioxide Level 15.7 MEQ/L Anion Gap 11 MEQ/L Estimat Glomerular Filtration Rate 70 ML/MIN Lactic Acid Level 1.4 mmol/L Culture Results Microbiology Date/Time Source Procedure Growth Status 01/05/17 15:14 Blood Peripheral Aerobic Blood Culture Pending Received 01/05/17 15:14 Blood Peripheral Anaerobic Blood Culture Pending Received 01/04/17 15:20 Blood Other Aerobic Blood Culture - Preliminary Gram Positive Cocci Resulted 01/04/17 15:20 Blood Other Anaerobic Blood Culture - Preliminary NO GROWTH IN 1 DAY Resulted 01/03/17 17:13 Blood Peripheral Aerobic Blood Culture - Final S. Aureus Mrsa Complete 01/03/17 17:13 Anaerobic Blood Culture - Final S. Aureus Mrsa Complete 01/03/17 17:12 Blood Other Aerobic Blood Culture - Final S. Aureus Mrsa Resulted 01/03/17 17:12 Blood Other Anaerobic Blood Culture - Preliminary NO GROWTH IN 2 DAYS Resulted 01/05/17 16:52 Catheter Tip Subclavian Wound Culture Pending Received Imaging Studies Last 24 hours Impressions Chest X-Ray 01/05/17 1021 Signed Impressions: Service Date/Time: Thursday, January 05, 2017 10:34 - CONCLUSION: 1. Minimal bibasilar airspace disease, likely atelectasis. 2. Otherwise, no acute abnormality or significant interval change. Armando Martínez MD Administered Medications Medications (Trade) Dose Ordered Sig/Daniel Route PRN Reason Start Time Stop Time Status Last Admin Dose Admin Prednisone (Deltasone) 20 mg DAILY PO 12/29/16 09:00 01/05/17 08:01 Pantoprazole Sodium (Protonix) 40 mg DAILY PO 12/29/16 09:00 01/05/17 08:01 Allopurinol (Zyloprim) 200 mg DAILY PO 12/30/16 09:00 01/05/17 08:00 Calcium/Vitamin D (Oscal-D 250-125) 500 mg Q12HR PO 12/29/16 21:00 01/05/17 20:52 Diltiazem HCl (Cardizem Cd) 240 mg DAILY PO 12/30/16 09:00 Future hold 01/05/17 08:01 Diphenhydramine HCl (Benadryl) 25 mg Q4H PRN PO SEE LABEL COMMENTS 12/29/16 11:00 12/31/16 17:49 Lactobacillus Acidophilus (Lactinex) 1 tab TID PO 12/29/16 13:00 01/05/17 08:00 Megestrol Acetate (Megace Liq) 400 mg DAILY PO 12/30/16 09:00 01/04/17 09:01 Metoprolol Tartrate (Lopressor) 25 mg Q12HR PO 12/29/16 21:00 01/05/17 20:52 Hydrocortisone (Nutracort 1% Oint) 1 applic BID TOPICAL 12/29/16 13:00 01/05/17 21:00 Sodium Chloride (NS Flush) 2 ml UNSCH PRN IV FLUSH FLUSH AFTER USING IV ACCESS 12/29/16 12:00 01/04/17 21:08 Sodium Chloride (NS Flush) 2 ml BID IV FLUSH 12/29/16 21:00 01/05/17 23:13 Acetaminophen (Tylenol) 650 mg Q4H PRN PO TEMP > 100.4 12/29/16 11:30 01/03/17 00:11 Oxycodone/ Acetaminophen (Percocet 10-325 Mg) 1 tab Q6H PRN PO PAIN SCALE 6 TO 10 12/29/16 11:30 01/03/17 18:43 Morphine Sulfate (Morphine Inj) 4 mg Q3H PRN IV PUSH Pain 6-10;if unable to take PO 12/29/16 11:30 01/06/17 02:57 Senna/Docusate Sodium (Cindy-Colace) 1 tab BID PO 12/29/16 21:00 01/05/17 20:53 Levothyroxine Sodium (Synthroid) 25 mcg DAILY@0600 PO 12/31/16 06:00 01/06/17 04:55 Insulin Human Regular (NovoLIN R SUPPLEMENTAL SCALE) 1 ACHS SLIDING SCALE SQ 01/01/17 21:00 01/05/17 20:51 Insulin Detemir (Levemir Inj) 5 units Q12HR SQ 01/02/17 09:00 01/05/17 20:51 Cefepime HCl 2000 mg/Sodium Chloride 100 ml @ 200 mls/hr Q8HR IV 01/03/17 14:00 01/06/17 04:55 Fluconazole (Diflucan) 200 mg DAILY PO 01/03/17 11:00 01/05/17 08:37 Filgrastim (Neupogen Inj) 480 mcg DAILY@14 SQ 01/03/17 14:00 01/05/17 14:40 Vancomycin HCl 1000 mg/Sodium Chloride 250 ml @ 250 mls/hr Q12H IV 01/05/17 00:00 01/05/17 23:13 Metoprolol Tartrate (Lopressor Inj) 5 mg Q6H PRN IV PUSH RAPID HEART RATE 01/05/17 10:45 01/06/17 03:38 Miscellaneous Information Patient in critical care unit? Ass... [id number] .[id number] 01/05/17 22:30 01/05/17 22:30 Chlorhexidine Gluconate (Chlorhexidine 2% Cloth) 3 pack DAILY@04 TOPICAL 01/06/17 04:00 01/10/17 04:01 01/06/17 01:20 Sodium Bicarbonate 150 meq/Dextrose 1,150 ml @ 75 mls/hr [id number] IV 01/06/17 05:45 01/06/17 05:54 Objective Remarks GENERAL PHYSICAL APPEARANCE: Mr. Chou is an elderly male. He is laying in bed, he appears to be acutely distressed. He seems very restless. He is able to mumble a few words but overall seems to have difficulty speaking. Sentences. He appears to be having difficulty breathing. HEENT: Had is atraumatic, normocephalic. Conjunctivae are pale, sclerae are anicteric. EOMI. PERRLA. Oral exam - no pharyngeal erythema. NECK EXAM: No palpable cervical or supraclavicular lymphadenopathy. RESPIRATORY EXAM: Respiratory distress, poor inspiratory effort, decreased bibasilar breath sounds. CARDIOVASCULAR EXAM: Tachycardia, irregular, S1 and S2. ABDOMINAL EXAM: Obese belly, he reports tenderness to light palpation, there appears to be increased tympany to percussion. Positive bowel sounds. LOWER EXTREMITIES: Bilateral pretibial edema. No calf tenderness. FIRE LIEUTENANT: No focal sensory or motor deficits. SKIN EXTREMITIES: He has an exfoliative rash noted over his arms, especially on his back and torso. Chest: Interval removal of left-sided infusion port. Assessment/Plan Assessment Mr. 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 His disease is associated with very complex cytogenetics and unfortunately this predicts a poor outcome and high rates of relapse despite appropriate and aggressive treatment. He is status post induction remission therapy with Hyper-CVAD with Rituxan and intrathecal chemotherapy which was delivered in mid-October of 2016. 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 Plan 1. Pt had consolidation chemotherapy of hyper-CVAD arm B from 12/30/2016 through 01/02/2017. Leucovorin rescue continues at 50mg Q6H. His methotrexate level remains elevated at last result of 0.08. This should be less than 0.05 prior to stopping the leucovorin. He is now cytopenic secondary to myelosuppression from chemotherapy. Platelet transfusion today for platelet count of 10,000. He will remain on Neupogen 480 g subcutaneous daily for neutropenia. 2. Kidney function is slightly improved, continue IVF. 3. He remains quite painful with generalized body aches and neck pain. He has no nuchal rigidity on exam and has been afebrile for the past 24 hours. 4. MRSA bacteremia; on vancomycin with appropriate trough levels. His infusion port was removed on 01/05/2017. The catheter tip was submitted for culture. Disposition: Patient is presently critically ill with neutropenic sepsis. His respiratory status is also precarious and he has A. fib with RVR at present. He is maintaining his O2 sats ration with oxygen supplementation via nasal cannula. He is requiring bicarbonate supplementation for acidemia; lactic acid was noted to be normal yesterday. Her abdominal pain I will obtain a KUB at bedside. Sukhwinder Rice MD Jan 06, 2017 07:55
[2017-01-06] MEDS ORDERED: SODIUM CHLOR 0.9% 250 ML INJ 250 ML IV ONE (08:00)
[2017-01-06] MEDS: INSULIN NovoLIN REGULAR SUPPLEMENTAL SCALE SQ SCH ×4 (08:00→21:00)
[2017-01-06 08:03] LABS: POLYS (SEG NEUTROPHILS) 90 % (16-70); WBC DIFF SAMPLE 20
[2017-01-06 08:06] LABS: NEUTROPHIL # MANUAL DIFF 0.2 TH/MM3 (1.8-7.7)
[2017-01-06 08:07] LABS: ACANTHOCYTES OCC (NORMAL); DOHLE BODIES PRESENT (NONE SEEN); OVALOCYTES 1+ (NORMAL); PLATELET ESTIMATE SMEAR RARE (NORMAL); PLATELET MORPHOLOGY NORMAL (NORMAL); SCAN/DIFF FINAL DIFF MANUAL; TOXIC GRANULATION 2+ (NORMAL)
[2017-01-06] MEDS: DOCUSATE SODIUM 50 MG/SENNA 8.6 MG TAB PO SCH ×2 (08:24→21:00)
[2017-01-06] MEDS: PANTOPRAZOLE SOD 40 MG DELAYED RELEASE TAB PO SCH (08:24)
[2017-01-06] MEDS: METOPROLOL TARTRATE 25 MG TAB PO SCH ×2 (08:24→21:00)
[2017-01-06] MEDS: DILTIAZEM-CD 240 MG CAP ER PO SCH (08:24)
[2017-01-06] MEDS: MEGESTROL ACETATE SUSP 400 MG/10 ML CUP PO SCH (08:24)
[2017-01-06] MEDS: ALLOPURINOL 100 MG TAB PO SCH (08:24)
[2017-01-06] MEDS: predniSONE 20 MG TAB PO SCH (08:24)
[2017-01-06] MEDS: CALCIUM/VITAMIN D 250 MG/125 U TAB PO SCH ×2 (08:24→21:00)
[2017-01-06] MEDS: HYDROCORTISONE 1% OINT 30 GM TUBE TOPICAL SCH ×2 (08:25→21:00)
[2017-01-06] MEDS: INSULIN DETEMIR 100 UNITS/ML VIAL SQ SCH ×2 (08:25→21:00)
[2017-01-06] MEDS: LACTOBACILLUS ACIDOPHILUS TAB PO SCH ×3 (08:41→18:00)
[2017-01-06] MEDS: FLUCONAZOLE 200 MG TAB PO SCH (08:41)
[2017-01-06] MEDS: SODIUM CHLORIDE 0.9% FLUSH 10 ML FLUSH IV FLUSH SCH ×2 (08:50→21:00)
[2017-01-06] MEDS ORDERED: ACETAMINOPHEN 325 MG TAB PO PRN (09:00)
[2017-01-06] MEDS ORDERED: diphenhydrAMINE HCL 25 MG CAP PO PRN (09:00)
--- NOTE | 2017-01-06 09:18 | RADRPT ---
EXAM DATE/TIME: 01/06/2017 08:29 [place] COMPARISON: No previous studies available for comparison. INDICATIONS : Abdominal pain and tenderness. MEDICAL HISTORY : Hypertension. Leukemia. Cardiovascular disease. SURGICAL HISTORY : Appendectomy. Port Placement. ENCOUNTER: Subsequent ACUITY: 4 - 6 days PAIN SCORE: Non-responsive. LOCATION: Abdomen. FINDINGS: Supine view of the abdomen was performed. The abdominal bowel gas pattern is normal with gas in nond istended loops of colon. The visualized lower lungs are clear.. No abnormal masses, calcifications, or organomegaly is seen. The osseous structures are unremarkable. CONCLUSION: No dilated loops of small or large bowel.. Dion Alford MD on January 06, 2017 at 9:16 Board Certified Radiologist. This report was verified electronically.
--- NOTE | 2017-01-06 09:44 | HHI.PR ---
Subjective Subjective Notes still in distress, denies any pain to me Objective Vitals/I&O Vital Signs Date Time Temp Pulse Resp B/P (MAP) Pulse Ox O2 Delivery O2 Flow Rate FiO2 01/06/17 06:00 134 01/06/17 04:00 99.8 21 126/71 (89) 100 01/05/17 20:32 Nasal Cannula 2.00 01/03/17 22:46 21 Labs Laboratory Tests Test 01/05/17 11:39 01/05/17 13:44 01/05/17 16:30 01/06/17 05:00 Blood Urea Nitrogen 34 Creatinine 1.05 Random Glucose 200 Total Protein 5.9 Albumin 2.2 Calcium Level 8.6 Phosphorus Level 3.3 Magnesium Level 2.2 Alkaline Phosphatase 54 Aspartate Amino Transf (AST/SGOT) 9 Alanine Aminotransferase (ALT/SGPT) 31 Total Bilirubin 0.8 Sodium Level 138 Potassium Level 4.2 Chloride Level 112 Carbon Dioxide Level 17.3 Anion Gap 9 Estimat Glomerular Filtration Rate 70 Lactic Acid Level 1.1 Ammonia LESS THAN 10 B-Type Natriuretic Peptide 349 Blood Gas Puncture Site RT RADIAL LT RADIAL Blood Gas Patient Temperature 98.6 98.6 Blood Gas HCO3 14 13 Blood Gas Base Excess -10.1 -9.9 Blood Gas Oxygen Saturation 96 95 Arterial Blood pH 7.42 7.48 Arterial Blood Partial Pressure CO2 22 18 Arterial Blood Partial Pressure O2 123 99 Arterial Blood Oxygen Content 16.8 11.9 Arterial Blood Carboxyhemoglobin 1.5 1.8 Arterial Blood Methemoglobin 1.2 1.1 Blood Gas Hemoglobin 12.3 8.8 Oxygen Delivery Device NASAL CANNULA NASAL CANNULA Blood Gas Liter Flow 2 2 Nasal Screen MRSA (PCR) MRSA DETECTED Test 01/06/17 06:23 White Blood Count 0.2 Red Blood Count 2.58 Hemoglobin 8.1 Hematocrit 23.9 Mean Corpuscular Volume 92.9 Mean Corpuscular Hemoglobin 31.3 Mean Corpuscular Hemoglobin Concent 33.7 Red Cell Distribution Width 21.0 Platelet Count 10 Mean Platelet Volume 7.6 Neutrophils (%) (Auto) 72.8 Lymphocytes (%) (Auto) 20.5 Monocytes (%) (Auto) 6.3 Eosinophils (%) (Auto) 0.0 Basophils (%) (Auto) 0.4 Neutrophils # (Auto) 0.1 Lymphocytes # (Auto) 0.0 Monocytes # (Auto) 0.0 Eosinophils # (Auto) 0.0 Basophils # (Auto) 0.0 CBC Comment AUTO DIFF Differential Total Cells Counted 20 Neutrophils % (Manual) 90 Lymphocytes % 10 Neutrophils # (Manual) 0.2 Differential Comment FINAL DIFF MANUAL Toxic Granulation 2+ Dohle Bodies PRESENT Platelet Estimate RARE Platelet Morphology Comment NORMAL Ovalocytes 1+ Acanthocytes OCC Blood Urea Nitrogen 29 Creatinine 1.05 Random Glucose 161 Total Protein 6.1 Albumin 2.2 Calcium Level 8.6 Alkaline Phosphatase 54 Aspartate Amino Transf (AST/SGOT) 7 Alanine Aminotransferase (ALT/SGPT) 29 Total Bilirubin 1.2 Sodium Level 141 Potassium Level 3.6 Chloride Level 114 Carbon Dioxide Level 15.7 Anion Gap 11 Estimat Glomerular Filtration Rate 70 Lactic Acid Level 1.4 Date/Time Source Procedure Growth Status 01/05/17 15:14 Blood Peripheral Aerobic Blood Culture Pending Received 01/05/17 15:14 Blood Peripheral Anaerobic Blood Culture Pending Received 01/02/17 19:50 Urine Clean Catch Urine Culture - Final <10,000 CFU/ML GRAM POSITIVE SCOUT Complete 01/05/17 16:52 Catheter Tip Subclavian Wound Culture Pending Received Narrative Exam port removal site clean, minimal bleeding, no erythema A/P Assessment and Plan MRSA sepsis, pancytopenia, resp distress critical condition supportive care catheter cultures pending please call if needed, will gladly see Kee Rich MD Jan 06, 2017 09:44
[2017-01-06 10:16] LABS: BLOOD, URINE MOD (NEG); GLUCOSE,URINE NEG (NEG); KETONE, URINE NEG (NEG); NITRITE,URINE NEG (NEG); PH, URINE 6.5 (5.0-8.5); URINE COLOR YELLOW (YELLW/STRAW)
--- NOTE | 2017-01-06 11:28 | MP ---
cc: LEO TAVERAS M.D. DATE OF SURGERY: 01/05/2017 PREOPERATIVE DIAGNOSIS MRSA bacteremia likely secondary to Umahgs-[id number]-[id number] in the left subclavian vein. POSTOPERATIVE DIAGNOSIS MRSA bacteremia likely secondary to Zjqrqg-D-Cevy in the left subclavian vein. PROCEDURE PERFORMED Left subclavian Fufinq-E-Jmmg removal. SURGEON Leo Taveras. ANESTHESIA Local. COMPLICATIONS None. INDICATION FOR PROCEDURE Mr. Chou is a pleasant 71-year-old gentleman who unfortunately has MRSA bacteremia while undergoing treatment for B-cell leukemia. He is in septic shock and not doing well. He has had four blood cultures with MRSA. The most likely source is felt to be his Nnnpjq-O-Vlph catheter. Dr. Marmolejo of intensive care has recommended it be removed immediately and I agreed. The patient was advised of this and agreed verbally. DETAILS OF PROCEDURE The patient remained in the [facility]. The left anterior chest was prepped and draped in a standard surgical fashion. 1% lidocaine with epinephrine was injected in the skin and subcutaneous tissue directly overlying the port. The previous incision was then opened with a scalpel. The port was immediately identified. The catheter was withdrawn from the vein and direct pressure was held. The Hzsbok-J-Sfzu was then removed. The catheter was transected and sent for culture. The Thfmwm-Q-Vpjo was discarded. The wound was irrigated out with local anesthetic. No back bleeding was noted from the subclavian vein. The port pocket was clean and dry. The pocket was injected with additional local anesthetic and then closed with a 3-0 Vicryl suture. Steri-Strips were applied and a pressure bandage was applied. The patient tolerated the procedure well without any complications. MD YONI Gonzalez/RAFAT /5:55 PM /11:19 AM
[2017-01-06] MEDS ORDERED: PHARMACY ORDERED LAB ONE (11:45)
[2017-01-06] MEDS ORDERED: DILTIAZEM HCL 25 MG/5 ML VIAL IV PUSH ONE (13:00)
[2017-01-06] MEDS: FILGRASTIM 480 MCG/1.6 ML VIAL SQ SCH (13:29)
[2017-01-06] MEDS: DILTIAZEM INJ 125 MG in SODIUM CHLORIDE 0.9% INJ 100 ML IV PRN (13:30)
--- NOTE | 2017-01-06 13:44 | HHI.IDPN ---
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 He received induction chemotherapy at that time, and hospitalization complicated by neutropenic fevers. He also developed a rash and subsequently underwent skin biopsy which revealed vacuolar interface dermatitis. Differential diagnosis of that biopsy included fixed drug eruption, erythema multiforme, GVHD, and conncetive tissue disease. His skin rash improved with systemic corticosteroids. He has been admitted for consolidation chemotherapy. He received MTX and cytarabine. Since yesterday, he started having fevers. he is complaining of body malaise, diffuse body aches, and neck pain. Denies headache or photophobia. No respiratory complaints. No GI or complaints. His skin is better, and less itchy. 2 BC done yesterday, one is growing GPC. Infectious Disease consultation has been requested to evaluate patient with fevers. He is not neutropenic. he is on IV Vanco, Cefepime and Diflucan. Notes reviewed D/W RN [place] [facility] [place] removed Temps better WBC 0.2 All BC done with MRSA States neck pain is better Looks SOB, on nasal O2 mental status still not his baseline UA ok Pancytopenia Echo not a good study Antibiotics I attest that I obtained, updated or reviewed the home and current medications. Vanco Cefepime Diflucan Current Medications Medications (Trade) Dose Ordered Sig/Daniel Route Start Time Stop Time Status Last Admin (Reglan Inj) 5 mg Q6H PRN IV PUSH 12/29/16 08:00 (Deltasone) 20 mg DAILY PO 12/29/16 09:00 01/06/17 08:24 (Protonix) 40 mg DAILY PO 12/29/16 09:00 01/06/17 08:24 (Zyloprim) 200 mg DAILY PO 12/30/16 09:00 01/06/17 08:24 (Oscal-D 250-125) 500 mg Q12HR PO 12/29/16 21:00 01/06/17 08:24 (Cardizem Cd) 240 mg DAILY PO 12/30/16 09:00 Future hold 01/06/17 08:24 (Benadryl) 25 mg Q4H PRN PO 12/29/16 11:00 12/31/16 17:49 (Lactinex) 1 tab TID PO 12/29/16 13:00 01/06/17 08:41 (Megace Liq) 400 mg DAILY PO 12/30/16 09:00 01/06/17 08:24 (Lopressor) 25 mg Q12HR PO 12/29/16 21:00 01/06/17 08:24 (Nutracort 1% Oint) 1 applic BID TOPICAL 12/29/16 13:00 01/06/17 08:25 (NS Flush) 2 ml UNSCH PRN IV FLUSH 12/29/16 12:00 01/04/17 21:08 (NS Flush) 2 ml BID IV FLUSH 12/29/16 21:00 01/06/17 08:50 (Tylenol) 650 mg Q4H PRN PO 12/29/16 11:30 01/03/17 00:11 (Zofran Inj) 4 mg Q6H PRN IVP 12/29/16 11:30 (Compazine Supp) 25 mg Q12H PRN RECTAL 12/29/16 11:30 (Tylenol) 650 mg Q6H PRN PO 12/29/16 11:30 (Percocet 5-325 Mg) 1 tab Q6H PRN PO 12/29/16 11:30 (Percocet 10-325 Mg) 1 tab Q6H PRN PO 12/29/16 11:30 01/03/17 18:43 (Morphine Inj) 2 mg Q3H PRN IV PUSH 12/29/16 11:30 (Morphine Inj) 4 mg Q3H PRN IV PUSH 12/29/16 11:30 01/06/17 02:57 (Narcan Inj) 0.4 mg UNSCH PRN IV PUSH 12/29/16 11:45 (Cindy-Colace) 1 tab BID PO 12/29/16 21:00 01/06/17 08:24 (Milk Of Magnesia Liq) 30 ml Q12H PRN PO 12/29/16 11:45 (Senokot) 17.2 mg Q12H PRN PO 12/29/16 11:45 (Dulcolax Supp) 10 mg DAILY PRN RECTAL 12/29/16 11:45 (Lactulose Liq) 30 ml DAILY PRN PO 12/29/16 11:45 (Synthroid) 25 mcg DAILY@0600 PO 12/31/16 06:00 01/06/17 04:55 (NovoLIN R SUPPLEMENTAL SCALE) 1 ACHS SLIDING SCALE SQ 01/01/17 21:00 01/06/17 12:00 (Levemir Inj) 5 units Q12HR SQ 01/02/17 09:00 01/06/17 08:25 Cefepime HCl 2000 mg/Sodium Chloride 100 ml @ 200 mls/hr Q8HR IV 01/03/17 14:00 01/06/17 13:14 (Diflucan) 200 mg DAILY PO 01/03/17 11:00 01/06/17 08:41 (Neupogen Inj) 480 mcg DAILY@14 SQ 01/03/17 14:00 01/06/17 13:29 Pharmacy Profile Note 0 ml @ 0 mls/hr UNSCH OTHER 01/03/17 11:30 Vancomycin HCl 1000 mg/Sodium Chloride 250 ml @ 250 mls/hr Q12H IV 01/05/17 00:00 01/05/17 23:13 (Lopressor Inj) 5 mg Q6H PRN IV PUSH 01/05/17 10:45 01/06/17 08:56 Miscellaneous Information Patient in critical care unit? Ass... Q361D .XX 01/05/17 22:30 01/05/17 22:30 (Chlorhexidine 2% Cloth) 3 pack DAILY@04 TOPICAL 01/06/17 04:00 01/10/17 04:01 01/06/17 01:20 (Chlorhexidine 2% Cloth) 3 pack UNSCH PRN TOPICAL 01/05/17 22:30 01/10/17 22:27 Sodium Bicarbonate 150 meq/Dextrose 1,150 ml @ 75 mls/hr [id number] IV 01/06/17 05:45 01/06/17 05:54 Sodium Chloride 250 ml @ 15 mls/hr ONCE ONCE IV 01/06/17 08:00 01/07/17 00:39 (Tylenol) 650 mg Q4H PRN PO 01/06/17 09:00 (Benadryl) 25 mg Q4H PRN PO 01/06/17 09:00 Diltiazem HCl 125 mg/Sodium Chloride 125 ml @ 5 mls/hr TITRATE PRN IV 01/06/17 13:30 01/06/17 13:30 Lines Port - removed 01/05 Past Medical History 1. 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 2. Acute kidney failure (now recovered). 3. 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 4. Severe rash, currently present. 5. Protein calorie malnutrition. 6. Chemotherapy-related myelosuppression. 7. Atrial fibrillation. Past Surgical History 1. Appendectomy. 2. Benign polyp removal from the throat. 3. Lumbar puncture with intrathecal chemotherapy injection. 4. Port placement. 5. Bone marrow biopsy and aspiration. 6. Skin biopsy Allergies: Coded Allergies: No Known Allergies (Unverified , 10/24/16) Objective . Vital Signs Date Time Temp Pulse Resp B/P (MAP) Pulse Ox O2 Delivery O2 Flow Rate FiO2 01/06/17 13:30 144 141/77 01/06/17 09:20 99 Nasal Cannula 2.00 01/06/17 06:00 134 01/06/17 04:00 99.8 99 21 126/71 (89) 100 01/06/17 04:00 99 01/06/17 02:00 105 01/06/17 00:00 98 01/06/17 00:00 98.9 98 11 118/78 (91) 100 01/05/17 22:00 107 01/05/17 20:32 93 Nasal Cannula 2.00 01/05/17 20:00 98.4 109 30 188/88 (121) 92 01/05/17 20:00 109 01/05/17 19:00 100 Nasal Cannula 3.00 01/05/17 18:00 94 01/05/17 16:45 92 01/05/17 16:45 98.8 92 22 145/75 (98) 100 01/06/17 01/06/17 01/07/17 15:00 23:00 07:00 Intake Total 1000 ml Balance 1000 ml IV Total 1000 ml . Laboratory Tests Test 01/05/17 05:45 01/06/17 06:23 White Blood Count 1.0 TH/MM3 0.2 TH/MM3 Red Blood Count 2.78 MIL/MM3 2.58 MIL/MM3 Hemoglobin 8.9 GM/DL 8.1 GM/DL Hematocrit 26.1 % 23.9 % Mean Corpuscular Volume 94.0 FL 92.9 FL Mean Corpuscular Hemoglobin 31.8 PG 31.3 PG Mean Corpuscular Hemoglobin Concent 33.9 % 33.7 % Red Cell Distribution Width 21.3 % 21.0 % Platelet Count 18 TH/MM3 10 TH/MM3 Mean Platelet Volume 7.7 FL 7.6 FL Neutrophils (%) (Auto) 94.4 % 72.8 % Lymphocytes (%) (Auto) 3.5 % 20.5 % Monocytes (%) (Auto) 1.3 % 6.3 % Eosinophils (%) (Auto) 0.8 % 0.0 % Basophils (%) (Auto) 0.0 % 0.4 % Neutrophils # (Auto) 1.0 TH/MM3 0.1 TH/MM3 Lymphocytes # (Auto) 0.0 TH/MM3 0.0 TH/MM3 Monocytes # (Auto) 0.0 TH/MM3 0.0 TH/MM3 Eosinophils # (Auto) 0.0 TH/MM3 0.0 TH/MM3 Basophils # (Auto) 0.0 TH/MM3 0.0 TH/MM3 CBC Comment AUTO DIFF AUTO DIFF Differential Total Cells Counted 100 20 Neutrophils % (Manual) 93 % 90 % Band Neutrophils % 1 % Lymphocytes % 6 % 10 % Neutrophils # (Manual) 0.9 TH/MM3 0.2 TH/MM3 Differential Comment FINAL DIFF MANUAL FINAL DIFF MANUAL Platelet Estimate RARE RARE Platelet Morphology Comment NORMAL NORMAL Toxic Granulation 2+ Dohle Bodies PRESENT Ovalocytes 1+ Acanthocytes OCC Laboratory Tests Test 01/04/17 23:05 01/05/17 11:39 01/06/17 06:23 Blood Urea Nitrogen 32 MG/DL 34 MG/DL 29 MG/DL Creatinine 0.98 MG/DL 1.05 MG/DL 1.05 MG/DL Random Glucose 189 MG/DL 200 MG/DL 161 MG/DL Calcium Level 8.7 MG/DL 8.6 MG/DL 8.6 MG/DL Sodium Level 139 MEQ/L 138 MEQ/L 141 MEQ/L Potassium Level 4.0 MEQ/L 4.2 MEQ/L 3.6 MEQ/L Chloride Level 109 MEQ/L 112 MEQ/L 114 MEQ/L Carbon Dioxide Level 16.7 MEQ/L 17.3 MEQ/L 15.7 MEQ/L Anion Gap 13 MEQ/L 9 MEQ/L 11 MEQ/L Estimat Glomerular Filtration Rate 76 ML/MIN 70 ML/MIN 70 ML/MIN Total Protein 5.9 GM/DL 6.1 GM/DL Albumin 2.2 GM/DL 2.2 GM/DL Phosphorus Level 3.3 MG/DL Magnesium Level 2.2 MG/DL Alkaline Phosphatase 54 U/L 54 U/L Aspartate Amino Transf (AST/SGOT) 9 U/L 7 U/L Alanine Aminotransferase (ALT/SGPT) 31 U/L 29 U/L Total Bilirubin 0.8 MG/DL 1.2 MG/DL Lactic Acid Level 1.1 mmol/L 1.4 mmol/L Ammonia LESS THAN 10 MCMOL/L B-Type Natriuretic Peptide 349 PG/ML Microbiology Date/Time Source Procedure Growth Status 01/05/17 15:14 Blood Peripheral Aerobic Blood Culture - Preliminary Gram Positive Cocci Resulted 01/05/17 15:14 Blood Peripheral Anaerobic Blood Culture Pending Resulted 01/04/17 15:20 Blood Other Aerobic Blood Culture - Final S. Aureus Mrsa Resulted 01/04/17 15:20 Blood Other Anaerobic Blood Culture - Preliminary NO GROWTH IN 2 DAYS Resulted 01/03/17 17:13 Blood Peripheral Aerobic Blood Culture - Final S. Aureus Mrsa Complete 01/03/17 17:13 Anaerobic Blood Culture - Final S. Aureus Mrsa Complete 01/03/17 17:12 Blood Other Aerobic Blood Culture - Final S. Aureus Mrsa Resulted 01/03/17 17:12 Blood Other Anaerobic Blood Culture - Preliminary NO GROWTH IN 3 DAYS Resulted 01/05/17 16:52 Catheter Tip Subclavian Wound Culture - Preliminary IMMATURE GROWTH - REINCUBATE Resulted Imaging Abdomen X-Ray 01/06/17 0000 Signed Impressions: Service Date/Time: Friday, January 06, 2017 08:29 - CONCLUSION: No dilated loops of small or large bowel.. Dion Alford MD Chest X-Ray 01/05/17 1021 Signed Impressions: Service Date/Time: Thursday, January 05, 2017 10:34 - CONCLUSION: 1. Minimal bibasilar airspace disease, likely atelectasis. 2. Otherwise, no acute abnormality or significant interval change. Armando Martínez MD Neck CT 01/05/17 0000 Signed Impressions: Service Date/Time: Thursday, January 05, 2017 11:54 - CONCLUSION: Negative CT soft tissue neck with contrast. Dion Alford MD Head CT 01/05/17 0000 Signed Impressions: Service Date/Time: Thursday, January 05, 2017 11:54 - CONCLUSION: Negative noncontrast CT Wander Hodgse MD Last Impressions Chest X-Ray 01/03/17 0000 Signed Impressions: Service Date/Time: Tuesday, January 03, 2017 22:02 - CONCLUSION: 1. [id number] in superior vena cava. No consolidation or significant effusion. Hao Lea MD Physical Exam GENERAL: More awake than yesterday when I saw him, looks dyspneic at rest SKIN: Warm and dry. Has dry skin, and some with exfoliation HEAD: Atraumatic. Normocephalic. No temporal wasting, or tenderness. EYES: [place] conjunctiva. No petechia or hemorrhage. Pupils equal, round and reactive to light. Extraocular movements full and intact. No scleral icterus. No injection or drainage. EARS, NOSE AND THROAT: Nose without bleeding or purulent nasal discharge. He is edentulous, with some oral thrush, dry oral mucosa. No oral lesions NECK: Trachea midline. Supple and not tender, no meningeal sign. No nuchal rigidity CARDIOVASCULAR: Regular rate and rhythm. No murmurs, rubs or gallops heard RESPIRATORY: Scattered rales, and some wheezing. Intact dressing over previous port site ABDOMEN: Soft, non-tender, nondistended. Bowel sounds present and normoactive. No guarding. No rebound. No organomegaly. Some ecchymoses on L side of abdomen EXTREMITIES: No clubbing, cyanosis, or edema. No joint effusion, has good ROM. No calf tenderness. Well perfused and warm. NEUROLOGICAL: Non-focal. PSYCHIATRIC: More awake LINE: No evidence of infection Assessment & Plan Remarks IMPRESSION MRSA sepsis, source, worrisome for port Fevers, patient with ALL, receiving consolidation chemotherapy - due to sepsis Lethargic and SOB, due to sepsis ALL, on consolidation chemo Neutropenia Renal insufficiency, worse Skin rash Oral thrush Neck pain, ?musculoskeletal RECOMMENDATION Repeat BC to document clearing Continue empiric Abx: Cefepime, Diflucan Change vanco to Cubicin until BC clear (Vanco JENIFER 2) - follow CPK while on Cubicin Monitor temps Monitor counts Neutropenic precautions D/W Deonna William MD Jan 06, 2017 13:44
[2017-01-06 15:04] LABS: BLOOD GAS BASE EXCESS -2.3 mmol/L (-2-2); BLOOD GAS CARBOXYHEMOGLOBIN 1.9 % (0-4); BLOOD GAS HCO3 20 mmol/L (22-26); BLOOD GAS METHEMOGLOBIN 0.6 % (0-2); BLOOD GAS O2 HGB SATURATION 97 % (90-100); BLOOD GAS OXYGEN CONTENT 9.7 Vol % (12.0-20.0); BLOOD GAS PCO2 21 mmHg (38-42); BLOOD GAS PO2 121 mmHG (61-120); TEMP CORR TO 98.6
[2017-01-06 15:05] LABS: CRITICAL VALUE YES; DRAW SITE RT RADIAL; LITER FLOW 2 L/M; NUMBER OF ARTERIAL PUNCTURES 1; OXYGEN DEVICE NASAL CANNULA
[2017-01-06 15:06] LABS: STAT NO; ULNAR PULSE PRESENT
[2017-01-06] MEDS: DAPTOmycin INJ 700 MG in SODIUM CHLORIDE 0.9% INJ 100 ML IV SCH (16:00)
[2017-01-06 20:31] LABS: INTERNATIONAL NORMALIZED RATIO 1.2 RATIO; PROTHROMBIN TIME - PATIENT 12.8 SEC (9.8-11.6)
[2017-01-07] VITALS (20 sets, daily range): BP systolic 99–165; BP diastolic 62–107; PULSE 88–131; RESP 11–31; TEMP 99.1–100; O2SAT 82–100
[2017-01-07] MEDS: MORPHINE SULFATE 4 MG/ML INJ IV PUSH PRN ×6 (01:01→18:18)
[2017-01-07] MEDS: CHLORHEXIDINE GLUCONATE 2 % 1 PACK (2 CLOTHS)(taper/protocol) TOPICAL SCH (04:00)
[2017-01-07] MEDS: CEFEPIME INJ 2,000 MG in SODIUM CHLORIDE 0.9% INJ 100 ML IV SCH ×3 (06:00→20:15)
[2017-01-07] MEDS: LEVOTHYROXINE SODIUM 25 MCG TAB PO SCH (06:00)
[2017-01-07] MEDS: INSULIN NovoLIN REGULAR SUPPLEMENTAL SCALE SQ SCH ×4 (06:49→20:16)
--- NOTE | 2017-01-07 07:33 | PD.ONC.PN ---
Subjective Subjective Remarks Patient seen and examined, vital signs, labs, microbiology and medications were reviewed. 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 There were no acute cardiopulmonary events overnight. He remains afebrile. Vancomycin discontinued and he was initiated on daptomycin. Subjectively, the patient reports feeling weak, he denies pain. He appears to be anxious and seems to be mumbling words and is unable to complete sentences. Objective Data Date Time Temp Pulse Resp B/P (MAP) Pulse Ox O2 Delivery O2 Flow Rate FiO2 01/07/17 06:00 112 01/07/17 04:00 99.6 98 19 126/71 (89) 99 01/07/17 04:00 98 01/07/17 02:00 108 01/07/17 00:00 99.4 105 30 147/83 (104) 100 01/07/17 00:00 105 01/06/17 22:00 102 01/06/17 21:54 99 Nasal Cannula 2.00 01/06/17 21:13 99.7 110 28 157/77 (103) 98 01/06/17 20:00 99.7 124 28 149/85 (106) 98 01/06/17 20:00 124 01/06/17 19:00 100 Nasal Cannula 2.00 01/06/17 18:43 99 17 100 01/06/17 18:28 97 17 100 01/06/17 18:13 94 19 100 01/06/17 18:00 104 20 138/67 (90) 100 01/06/17 18:00 104 01/06/17 18:00 104 20 138/67 (90) 100 01/06/17 17:58 101 23 100 01/06/17 17:43 101 42 97 01/06/17 17:28 95 19 100 01/06/17 17:13 93 16 100 01/06/17 17:00 101 19 118/68 (85) 100 01/06/17 16:13 92 14 100 01/06/17 16:00 98.4 113 49 153/77 (102) 100 01/06/17 16:00 113 01/06/17 16:00 113 49 153/77 (102) 100 01/06/17 15:58 116 52 100 01/06/17 15:43 101 24 100 01/06/17 15:28 153 46 100 01/06/17 15:13 103 42 100 01/06/17 15:01 116 35 170/82 (111) 100 01/06/17 15:01 116 35 170/82 (111) 100 01/06/17 15:00 137 38 99 01/06/17 14:58 113 32 95 01/06/17 14:43 106 41 100 01/06/17 14:28 102 31 100 01/06/17 14:13 142 43 98 01/06/17 14:00 105 27 152/74 (100) 100 01/06/17 14:00 105 27 152/74 (100) 100 01/06/17 14:00 105 01/06/17 13:58 103 35 100 01/06/17 13:43 104 25 100 01/06/17 13:30 144 141/77 01/06/17 13:28 110 31 97 01/06/17 13:13 104 38 100 01/06/17 13:00 106 26 141/77 (98) 100 01/06/17 13:00 106 26 141/77 (98) 100 01/06/17 12:58 104 25 100 01/06/17 12:43 106 39 99 01/06/17 12:28 112 43 92 01/06/17 12:00 98.8 114 50 157/88 (111) 88 01/06/17 12:00 114 01/06/17 11:00 132 37 177/77 (110) 98 01/06/17 10:01 128 33 169/85 (113) 97 01/06/17 10:00 121 33 89 01/06/17 10:00 121 01/06/17 09:20 99 Nasal Cannula 2.00 01/06/17 09:17 117 43 161/82 (108) 96 01/06/17 09:00 126 33 160/111 (127) 100 01/06/17 08:01 99.0 160 32 192/95 (127) 100 01/06/17 08:00 163 28 100 01/06/17 08:00 163 01/07/17 01/07/17 01/07/17 07:00 15:00 23:00 Intake Total 234 ml Output Total 550 ml Balance -316 ml Result Diagram: 01/06/1762201/06/17 06 Laboratory Results Laboratory Tests Test 01/06/17 08:00 01/06/17 14:43 01/06/17 17:56 Urine Color YELLOW Urine Turbidity CLEAR Urine pH 6.5 Urine Specific [place] 1.017 Urine Protein 30 mg/dL Urine Glucose (UA) NEG mg/dL Urine Ketones NEG mg/dL Urine Occult Blood MOD Urine Nitrite NEG Urine Bilirubin NEG Urine Urobilinogen LESS THAN 2.0 MG/DL Urine Leukocyte Esterase NEG Urine RBC 14 /hpf Urine WBC 2 /hpf Blood Gas Puncture Site RT RADIAL Blood Gas Patient Temperature 98.6 Blood Gas HCO3 20 mmol/L Blood Gas Base Excess -2.3 mmol/L Blood Gas Oxygen Saturation 97 % Arterial Blood pH 7.57 Arterial Blood Partial Pressure CO2 21 mmHg Arterial Blood Partial Pressure O2 121 mmHG Arterial Blood Oxygen Content 9.7 Vol % Arterial Blood Carboxyhemoglobin 1.9 % Arterial Blood Methemoglobin 0.6 % Blood Gas Hemoglobin 7.0 G/DL Oxygen Delivery Device NASAL CANNULA Blood Gas Liter Flow 2 L/M Prothrombin Time 12.8 SEC Prothromb Time International Ratio 1.2 RATIO Activated Partial Thromboplast Time 38.0 SEC Fibrinogen 783 mg/dL Culture Results Microbiology Date/Time Source Procedure Growth Status 01/05/17 15:14 Blood Peripheral Aerobic Blood Culture - Preliminary Gram Positive Cocci Resulted 01/05/17 15:14 Blood Peripheral Anaerobic Blood Culture Pending Resulted 01/04/17 15:20 Blood Other Aerobic Blood Culture - Final S. Aureus Mrsa Resulted 01/04/17 15:20 Blood Other Anaerobic Blood Culture - Preliminary NO GROWTH IN 2 DAYS Resulted 01/05/17 16:52 Catheter Tip Subclavian Wound Culture - Preliminary IMMATURE GROWTH - REINCUBATE Resulted Administered Medications Medications (Trade) Dose Ordered Sig/Daniel Route PRN Reason Start Time Stop Time Status Last Admin Dose Admin Prednisone (Deltasone) 20 mg DAILY PO 12/29/16 09:00 01/06/17 08:24 Pantoprazole Sodium (Protonix) 40 mg DAILY PO 12/29/16 09:00 01/06/17 08:24 Allopurinol (Zyloprim) 200 mg DAILY PO 12/30/16 09:00 01/06/17 08:24 Calcium/Vitamin D (Oscal-D 250-125) 500 mg Q12HR PO 12/29/16 21:00 01/06/17 21:00 Diltiazem HCl (Cardizem Cd) 240 mg DAILY PO 12/30/16 09:00 Future hold 01/06/17 08:24 Diphenhydramine HCl (Benadryl) 25 mg Q4H PRN PO SEE LABEL COMMENTS 12/29/16 11:00 12/31/16 17:49 Lactobacillus Acidophilus (Lactinex) 1 tab TID PO 12/29/16 13:00 01/06/17 08:41 Megestrol Acetate (Megace Liq) 400 mg DAILY PO 12/30/16 09:00 01/06/17 08:24 Metoprolol Tartrate (Lopressor) 25 mg Q12HR PO 12/29/16 21:00 01/06/17 08:24 Hydrocortisone (Nutracort 1% Oint) 1 applic BID TOPICAL 12/29/16 13:00 01/06/17 21:00 Sodium Chloride (NS Flush) 2 ml UNSCH PRN IV FLUSH FLUSH AFTER USING IV ACCESS 12/29/16 12:00 01/04/17 21:08 Sodium Chloride (NS Flush) 2 ml BID IV FLUSH 12/29/16 21:00 01/06/17 21:00 Acetaminophen (Tylenol) 650 mg Q4H PRN PO TEMP > 100.4 12/29/16 11:30 01/03/17 00:11 Oxycodone/ Acetaminophen (Percocet 10-325 Mg) 1 tab Q6H PRN PO PAIN SCALE 6 TO 10 12/29/16 11:30 01/03/17 18:43 Morphine Sulfate (Morphine Inj) 2 mg Q3H PRN IV PUSH Pain 3-5; if unable to take PO 12/29/16 11:30 01/07/17 06:48 Morphine Sulfate (Morphine Inj) 4 mg Q3H PRN IV PUSH Pain 6-10;if unable to take PO 12/29/16 11:30 01/07/17 01:01 Senna/Docusate Sodium (Cindy-Colace) 1 tab BID PO 12/29/16 21:00 01/06/17 08:24 Levothyroxine Sodium (Synthroid) 25 mcg DAILY@0600 PO 12/31/16 06:00 01/07/17 06:00 Insulin Human Regular (NovoLIN R SUPPLEMENTAL SCALE) 1 ACHS SLIDING SCALE SQ 01/01/17 21:00 01/07/17 06:49 Insulin Detemir (Levemir Inj) 5 units Q12HR SQ 01/02/17 09:00 01/06/17 21:00 Cefepime HCl 2000 mg/Sodium Chloride 100 ml @ 200 mls/hr Q8HR IV 01/03/17 14:00 01/07/17 06:00 Fluconazole (Diflucan) 200 mg DAILY PO 01/03/17 11:00 01/06/17 08:41 Filgrastim (Neupogen Inj) 480 mcg DAILY@14 SQ 01/03/17 14:00 01/06/17 13:29 Metoprolol Tartrate (Lopressor Inj) 5 mg Q6H PRN IV PUSH RAPID HEART RATE 01/05/17 10:45 01/06/17 08:56 Miscellaneous Information Patient in critical care unit? Ass... Q361D .XX 01/05/17 22:30 01/05/17 22:30 Chlorhexidine Gluconate (Chlorhexidine 2% Cloth) 3 pack DAILY@04 TOPICAL 01/06/17 04:00 01/10/17 04:01 01/06/17 01:20 Sodium Bicarbonate 150 meq/Dextrose 1,150 ml @ 75 mls/hr [id number] IV 01/06/17 05:45 01/06/17 05:54 Diltiazem HCl 125 mg/Sodium Chloride 125 ml @ 5 mls/hr TITRATE PRN IV Tachycardia 01/06/17 13:30 01/06/17 13:30 Daptomycin 700 mg/ Sodium Chloride 100 ml @ 200 mls/hr Q24H IV 01/06/17 16:00 01/06/17 16:00 Objective Remarks GENERAL PHYSICAL APPEARANCE: Mr. Chou is an elderly male. He is laying in bed, he appears to be acutely distressed. He seems very restless. He is able to mumble a few words but overall seems to have difficulty speaking. Sentences. He appears to be having difficulty breathing. HEENT: Had is atraumatic, normocephalic. Conjunctivae are pale, sclerae are anicteric. EOMI. PERRLA. Oral exam - no pharyngeal erythema. NECK EXAM: No palpable cervical or supraclavicular lymphadenopathy. RESPIRATORY EXAM: Respiratory distress, poor inspiratory effort, decreased bibasilar breath sounds. CARDIOVASCULAR EXAM: Tachycardia, irregular, S1 and S2. ABDOMINAL EXAM: Obese belly, he reports tenderness to light palpation, there appears to be increased tympany to percussion. Positive bowel sounds. LOWER EXTREMITIES: Bilateral pretibial edema. No calf tenderness. EDGE BANDING OFF BEARER: No focal sensory or motor deficits. SKIN EXTREMITIES: He has an exfoliative rash noted over his arms, especially on his back and torso. Chest: Interval removal of left-sided infusion port. Assessment/Plan Assessment Mr. 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 His disease is associated with very complex cytogenetics and unfortunately this predicts a poor outcome and high rates of relapse despite appropriate and aggressive treatment. He is status post induction remission therapy with Hyper-CVAD with Rituxan and intrathecal chemotherapy which was delivered in mid-October of 2016. 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 Plan 1. Initiated on chemotherapy of hyper-CVAD arm B from 12/30/2016 through 2016. Leucovorin rescue continues at 50mg Q6H. His methotrexate level remains elevated at last result of 0.08. This should be less than 0.05 prior to stopping the leucovorin. He is now cytopenic secondary to myelosuppression from chemotherapy. Platelet transfusion today for platelet count of 10,000; platelet transfusion ordered on 01/06/2017.. He will remain on Neupogen 480 g subcutaneous daily for neutropenia. 2. Kidney function stable, BMP ordered this morning.. 3. MRSA bacteremia; now on daptomycin. His infusion port was removed on 2016. The catheter tip was submitted for culture. Blood cultures on 01/05/2017 positive for gram-positive cocci. Disposition: Patient is presently critically ill with neutropenic sepsis secondary to MRSA bacteremia. His respiratory status is also precarious and he has A. fib with RVR at present. He is maintaining his O2 sats ration with oxygen supplementation via nasal cannula. I did have a long discussion with the patient's [id number] Mihai last night. I advised Mihai to call the patient's children and have them come in to see the patient given his critical illness. I am hopeful the patient's neutropenia will begin to resolve and that his sepsis will also come under control. The patient will however require intensive physical therapy and supportive care to regain his performance status. When she is more stable he will require physical therapy. I did talk to the nurse about encouraging by mouth intake. Sukhwinder Rice MD Jan 07, 2017 07:33
[2017-01-07] MEDS: INSULIN DETEMIR 100 UNITS/ML VIAL SQ SCH ×2 (09:00→20:16)
[2017-01-07] MEDS: SODIUM CHLORIDE 0.9% FLUSH 10 ML FLUSH IV FLUSH SCH (09:00)
--- NOTE | 2017-01-07 10:35 | HHI.IDPN ---
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 He received induction chemotherapy at that time, and hospitalization complicated by neutropenic fevers. He also developed a rash and subsequently underwent skin biopsy which revealed vacuolar interface dermatitis. Differential diagnosis of that biopsy included fixed drug eruption, erythema multiforme, GVHD, and conncetive tissue disease. His skin rash improved with systemic corticosteroids. He has been admitted for consolidation chemotherapy. He received MTX and cytarabine. Since yesterday, he started having fevers. he is complaining of body malaise, diffuse body aches, and neck pain. Denies headache or photophobia. No respiratory complaints. No GI or complaints. His skin is better, and less itchy. 2 BC done yesterday, one is growing GPC. Infectious Disease consultation has been requested to evaluate patient with fevers. He is not neutropenic. he is on IV Vanco, Cefepime and Diflucan. Notes reviewed Temps ok Remains very weak, some lethargy All BC with MRSA Port removed - 01/05 On nasal O2 Mental status still not his baseline UA ok Pancytopenia Echo not a good study Antibiotics I attest that I obtained, updated or reviewed the home and current medications. Cubicin Cefepime Diflucan Current Medications Medications (Trade) Dose Ordered Sig/Daniel Route Start Time Stop Time Status Last Admin (Reglan Inj) 5 mg Q6H PRN IV PUSH 12/29/16 08:00 (Deltasone) 20 mg DAILY PO 12/29/16 09:00 01/06/17 08:24 (Protonix) 40 mg DAILY PO 12/29/16 09:00 01/06/17 08:24 (Zyloprim) 200 mg DAILY PO 12/30/16 09:00 01/06/17 08:24 (Oscal-D 250-125) 500 mg Q12HR PO 12/29/16 21:00 01/06/17 21:00 (Cardizem Cd) 240 mg DAILY PO 12/30/16 09:00 Future hold 01/06/17 08:24 (Benadryl) 25 mg Q4H PRN PO 12/29/16 11:00 12/31/16 17:49 (Lactinex) 1 tab TID PO 12/29/16 13:00 01/06/17 08:41 (Megace Liq) 400 mg DAILY PO 12/30/16 09:00 01/06/17 08:24 (Lopressor) 25 mg Q12HR PO 12/29/16 21:00 01/06/17 08:24 (Nutracort 1% Oint) 1 applic BID TOPICAL 12/29/16 13:00 01/06/17 21:00 (NS Flush) 2 ml UNSCH PRN IV FLUSH 12/29/16 12:00 01/04/17 21:08 (NS Flush) 2 ml BID IV FLUSH 12/29/16 21:00 01/06/17 21:00 (Tylenol) 650 mg Q4H PRN PO 12/29/16 11:30 01/03/17 00:11 (Zofran Inj) 4 mg Q6H PRN IVP 12/29/16 11:30 (Compazine Supp) 25 mg Q12H PRN RECTAL 12/29/16 11:30 (Tylenol) 650 mg Q6H PRN PO 12/29/16 11:30 (Percocet 5-325 Mg) 1 tab Q6H PRN PO 12/29/16 11:30 (Percocet 10-325 Mg) 1 tab Q6H PRN PO 12/29/16 11:30 01/03/17 18:43 (Morphine Inj) 2 mg Q3H PRN IV PUSH 12/29/16 11:30 01/07/17 06:48 (Morphine Inj) 4 mg Q3H PRN IV PUSH 12/29/16 11:30 01/07/17 01:01 (Narcan Inj) 0.4 mg UNSCH PRN IV PUSH 12/29/16 11:45 (Cindy-Colace) 1 tab BID PO 12/29/16 21:00 01/06/17 08:24 (Milk Of Magnesia Liq) 30 ml Q12H PRN PO 12/29/16 11:45 (Senokot) 17.2 mg Q12H PRN PO 12/29/16 11:45 (Dulcolax Supp) 10 mg DAILY PRN RECTAL 12/29/16 11:45 (Lactulose Liq) 30 ml DAILY PRN PO 12/29/16 11:45 (Synthroid) 25 mcg DAILY@0600 PO 12/31/16 06:00 01/07/17 06:00 (NovoLIN R SUPPLEMENTAL SCALE) 1 ACHS SLIDING SCALE SQ 01/01/17 21:00 01/07/17 06:49 (Levemir Inj) 5 units Q12HR SQ 01/02/17 09:00 01/06/17 21:00 Cefepime HCl 2000 mg/Sodium Chloride 100 ml @ 200 mls/hr Q8HR IV 01/03/17 14:00 01/07/17 06:00 (Diflucan) 200 mg DAILY PO 01/03/17 11:00 01/06/17 08:41 (Neupogen Inj) 480 mcg DAILY@14 SQ 01/03/17 14:00 01/06/17 13:29 (Lopressor Inj) 5 mg Q6H PRN IV PUSH 01/05/17 10:45 01/06/17 08:56 Miscellaneous Information Patient in critical care unit? Ass... Q361D .XX 01/05/17 22:30 01/05/17 22:30 (Chlorhexidine 2% Cloth) 3 pack DAILY@04 TOPICAL 01/06/17 04:00 01/10/17 04:01 01/06/17 01:20 (Chlorhexidine 2% Cloth) 3 pack UNSCH PRN TOPICAL 01/05/17 22:30 01/10/17 22:27 Sodium Bicarbonate 150 meq/Dextrose 1,150 ml @ 75 mls/hr [id number] IV 01/06/17 05:45 01/06/17 05:54 (Tylenol) 650 mg Q4H PRN PO 01/06/17 09:00 (Benadryl) 25 mg Q4H PRN PO 01/06/17 09:00 Diltiazem HCl 125 mg/Sodium Chloride 125 ml @ 5 mls/hr TITRATE PRN IV 01/06/17 13:30 01/06/17 13:30 Daptomycin 700 mg/ Sodium Chloride 100 ml @ 200 mls/hr Q24H IV 01/06/17 16:00 01/06/17 16:00 Lines Port - removed 01/05 Past Medical History 1. B-cell ALL ([place] chromosome negative). 2. Acute kidney failure (now recovered). 3. 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 4. Severe rash, currently present. 5. Protein calorie malnutrition. 6. Chemotherapy-related myelosuppression. 7. Atrial fibrillation. Past Surgical History 1. Appendectomy. 2. Benign polyp removal from the throat. 3. Lumbar puncture with intrathecal chemotherapy injection. 4. Port placement. 5. Bone marrow biopsy and aspiration. 6. Skin biopsy Allergies: Coded Allergies: No Known Allergies (Unverified , 10/24/16) Objective . Vital Signs Date Time Temp Pulse Resp B/P (MAP) Pulse Ox O2 Delivery O2 Flow Rate FiO2 01/07/17 08:19 99 Nasal Cannula 2.00 01/07/17 06:00 112 01/07/17 04:00 99.6 98 19 126/71 (89) 99 01/07/17 04:00 98 01/07/17 02:00 108 01/07/17 00:00 99.4 105 30 147/83 (104) 100 01/07/17 00:00 105 01/06/17 22:00 102 01/06/17 21:54 99 Nasal Cannula 2.00 01/06/17 21:13 99.7 110 28 157/77 (103) 98 01/06/17 20:00 99.7 124 28 149/85 (106) 98 01/06/17 20:00 124 01/06/17 19:00 100 Nasal Cannula 2.00 01/06/17 18:43 99 17 100 01/06/17 18:28 97 17 100 01/06/17 18:13 94 19 100 01/06/17 18:00 104 20 138/67 (90) 100 01/06/17 18:00 104 01/06/17 18:00 104 20 138/67 (90) 100 01/06/17 17:58 101 23 100 01/06/17 17:43 101 42 97 01/06/17 17:28 95 19 100 01/06/17 17:13 93 16 100 01/06/17 17:00 101 19 118/68 (85) 100 01/06/17 16:13 92 14 100 01/06/17 16:00 98.4 113 49 153/77 (102) 100 01/06/17 16:00 113 01/06/17 16:00 113 49 153/77 (102) 100 01/06/17 15:58 116 52 100 01/06/17 15:43 101 24 100 01/06/17 15:28 153 46 100 01/06/17 15:13 103 42 100 01/06/17 15:01 116 35 170/82 (111) 100 01/06/17 15:01 116 35 170/82 (111) 100 01/06/17 15:00 137 38 99 01/06/17 14:58 113 32 95 01/06/17 14:43 106 41 100 01/06/17 14:28 102 31 100 01/06/17 14:13 142 43 98 01/06/17 14:00 105 27 152/74 (100) 100 01/06/17 14:00 105 27 152/74 (100) 100 01/06/17 14:00 105 01/06/17 13:58 103 35 100 01/06/17 13:43 104 25 100 01/06/17 13:30 144 141/77 01/06/17 13:28 110 31 97 01/06/17 13:13 104 38 100 01/06/17 13:00 106 26 141/77 (98) 100 01/06/17 13:00 106 26 141/77 (98) 100 01/06/17 12:58 104 25 100 01/06/17 12:43 106 39 99 01/06/17 12:28 112 43 92 01/06/17 12:00 98.8 114 50 157/88 (111) 88 01/06/17 12:00 114 01/06/17 11:00 132 37 177/77 (110) 98 . Laboratory Tests Test 01/06/17 06:23 White Blood Count 0.2 TH/MM3 Red Blood Count 2.58 MIL/MM3 Hemoglobin 8.1 GM/DL Hematocrit 23.9 % Mean Corpuscular Volume 92.9 FL Mean Corpuscular Hemoglobin 31.3 PG Mean Corpuscular Hemoglobin Concent 33.7 % Red Cell Distribution Width 21.0 % Platelet Count 10 TH/MM3 Mean Platelet Volume 7.6 FL Neutrophils (%) (Auto) 72.8 % Lymphocytes (%) (Auto) 20.5 % Monocytes (%) (Auto) 6.3 % Eosinophils (%) (Auto) 0.0 % Basophils (%) (Auto) 0.4 % Neutrophils # (Auto) 0.1 TH/MM3 Lymphocytes # (Auto) 0.0 TH/MM3 Monocytes # (Auto) 0.0 TH/MM3 Eosinophils # (Auto) 0.0 TH/MM3 Basophils # (Auto) 0.0 TH/MM3 CBC Comment AUTO DIFF Differential Total Cells Counted 20 Neutrophils % (Manual) 90 % Lymphocytes % 10 % Neutrophils # (Manual) 0.2 TH/MM3 Differential Comment FINAL DIFF MANUAL Toxic Granulation 2+ Dohle Bodies PRESENT Platelet Estimate RARE Platelet Morphology Comment NORMAL Ovalocytes 1+ Acanthocytes OCC Laboratory Tests Test 01/05/17 11:39 01/06/17 06:23 Blood Urea Nitrogen 34 MG/DL 29 MG/DL Creatinine 1.05 MG/DL 1.05 MG/DL Random Glucose 200 MG/DL 161 MG/DL Total Protein 5.9 GM/DL 6.1 GM/DL Albumin 2.2 GM/DL 2.2 GM/DL Calcium Level 8.6 MG/DL 8.6 MG/DL Phosphorus Level 3.3 MG/DL 3.1 MG/DL Magnesium Level 2.2 MG/DL Alkaline Phosphatase 54 U/L 54 U/L Aspartate Amino Transf (AST/SGOT) 9 U/L 7 U/L Alanine Aminotransferase (ALT/SGPT) 31 U/L 29 U/L Total Bilirubin 0.8 MG/DL 1.2 MG/DL Sodium Level 138 MEQ/L 141 MEQ/L Potassium Level 4.2 MEQ/L 3.6 MEQ/L Chloride Level 112 MEQ/L 114 MEQ/L Carbon Dioxide Level 17.3 MEQ/L 15.7 MEQ/L Anion Gap 9 MEQ/L 11 MEQ/L Estimat Glomerular Filtration Rate 70 ML/MIN 70 ML/MIN Lactic Acid Level 1.1 mmol/L 1.4 mmol/L Ammonia LESS THAN 10 MCMOL/L B-Type Natriuretic Peptide 349 PG/ML Uric Acid 3.0 MG/DL Total Creatine Kinase 18 U/L Microbiology Date/Time Source Procedure Growth Status 01/05/17 15:14 Blood Peripheral Aerobic Blood Culture - Preliminary Gram Positive Cocci Resulted 01/05/17 15:14 Blood Peripheral Anaerobic Blood Culture Pending Resulted 01/04/17 15:20 Blood Other Aerobic Blood Culture - Final S. Aureus Mrsa Resulted 01/04/17 15:20 Blood Other Anaerobic Blood Culture - Preliminary NO GROWTH IN 2 DAYS Resulted 01/05/17 16:52 Catheter Tip Subclavian Wound Culture - Preliminary IMMATURE GROWTH - REINCUBATE Resulted Imaging Abdomen X-Ray 01/06/17 0000 Signed Impressions: Service Date/Time: Friday, January 06, 2017 08:29 - CONCLUSION: No dilated loops of small or large bowel.. Dion Alford MD Chest X-Ray 01/05/17 1021 Signed Impressions: Service Date/Time: Thursday, January 05, 2017 10:34 - CONCLUSION: 1. Minimal bibasilar airspace disease, likely atelectasis. 2. Otherwise, no acute abnormality or significant interval change. Armando Martínez MD Neck CT 01/05/17 0000 Signed Impressions: Service Date/Time: Thursday, January 05, 2017 11:54 - CONCLUSION: Negative CT soft tissue neck with contrast. Dion Alford MD Head CT 01/05/17 0000 Signed Impressions: Service Date/Time: Thursday, January 05, 2017 11:54 - CONCLUSION: Negative noncontrast CT Wander Hodges MD Last Impressions Chest X-Ray 01/03/17 0000 Signed Impressions: Service Date/Time: Tuesday, January 03, 2017 22:02 - CONCLUSION: 1. Epnuvc-a-Nsel in superior vena cava. No consolidation or significant effusion. Hao Lea MD Physical Exam GENERAL: Answers some commands, very weak, looks ok at rest SKIN: Warm and dry. Has dry skin, and some with exfoliation HEAD: Atraumatic. Normocephalic. No temporal wasting, or tenderness. EYES: [place] conjunctiva. No petechia or hemorrhage. Pupils equal, round and reactive to light. Extraocular movements full and intact. No scleral icterus. No injection or drainage. EARS, NOSE AND THROAT: Nose without bleeding or purulent nasal discharge. He is edentulous, with some oral thrush, dry oral mucosa. No oral lesions NECK: Trachea midline. Supple and not tender, no meningeal sign. No nuchal rigidity CARDIOVASCULAR: Regular rate and rhythm. No murmurs, rubs or gallops heard RESPIRATORY: Scattered rales, and some wheezing. Intact dressing over previous port site ABDOMEN: Soft, non-tender, nondistended. Bowel sounds present and normoactive. No guarding. No rebound. No organomegaly. Some ecchymoses on L side of abdomen EXTREMITIES: No clubbing, cyanosis, or edema. No joint effusion, has good ROM. No calf tenderness. Well perfused and warm. NEUROLOGICAL: Non-focal. PSYCHIATRIC: More awake LINE: No evidence of infection Assessment & Plan Remarks IMPRESSION MRSA sepsis, high grade - port removed - BC still (+) - echo not good study Fevers, patient with ALL, receiving consolidation chemotherapy - due to sepsis Lethargic and SOB, due to sepsis ALL, on consolidation chemo Neutropenia Renal insufficiency, worse Skin rash Oral thrush Neck pain, ?musculoskeletal RECOMMENDATION Continue Cubicin for MRSA (Vanco JENIFER 2.0, nad BC still positive) - follow CPK while on Cubicin Continue other empiric Abx: Cefepime, Diflucan Repeat BC to document clearing Monitor temps Monitor counts Neutropenic precautions Monitor progress Deonna Ansari MD Jan 07, 2017 10:35
[2017-01-07] MEDS: FLUCONAZOLE 200 MG TAB PO SCH (10:48)
[2017-01-07] MEDS: METOPROLOL TARTRATE 25 MG TAB PO SCH ×2 (10:48→20:15)
[2017-01-07] MEDS: DILTIAZEM-CD 240 MG CAP ER PO SCH (10:48)
[2017-01-07] MEDS: PANTOPRAZOLE SOD 40 MG DELAYED RELEASE TAB PO SCH (10:49)
[2017-01-07] MEDS: MEGESTROL ACETATE SUSP 400 MG/10 ML CUP PO SCH (10:49)
[2017-01-07] MEDS: CALCIUM/VITAMIN D 250 MG/125 U TAB PO SCH ×2 (10:49→20:15)
[2017-01-07] MEDS: predniSONE 20 MG TAB PO SCH (10:49)
[2017-01-07] MEDS: HYDROCORTISONE 1% OINT 30 GM TUBE TOPICAL SCH ×2 (10:49→20:18)
[2017-01-07] MEDS: DOCUSATE SODIUM 50 MG/SENNA 8.6 MG TAB PO SCH ×2 (10:49→20:16)
[2017-01-07] MEDS: LACTOBACILLUS ACIDOPHILUS TAB PO SCH ×3 (10:49→18:18)
[2017-01-07] MEDS: ALLOPURINOL 100 MG TAB PO SCH (10:49)
[2017-01-07 11:40] LABS: HEMATOCRIT 21.4 % (39.0-51.0); MEAN CELL VOLUME 92.4 FL (80.0-100.0); MEAN CORPUSCULAR HEMOGLOBIN 32.1 PG (27.0-34.0); MEAN CORPUSCULAR HGB CONC 34.7 % (32.0-36.0); RED BLOOD COUNT 2.32 MIL/MM3 (4.50-5.90); RED CELL DISTRIBUTION WIDTH 20.8 % (11.6-17.2); WHITE BLOOD COUNT 0.1 TH/MM3 (4.0-11.0)
[2017-01-07 11:43] LABS: HEMO FLAGS AUTO DIFF
[2017-01-07 11:45] LABS: PLATELET COUNT 12 TH/MM3 (150-450)
[2017-01-07 11:48] LABS: BICARBONATE 24.9 MEQ/L (21.0-32.0); MAGNESIUM 2.1 MG/DL (1.5-2.5)
[2017-01-07 11:50] LABS: POTASSIUM 2.8 MEQ/L (3.5-5.1)
[2017-01-07] MEDS: DILTIAZEM INJ 125 MG in SODIUM CHLORIDE 0.9% INJ 100 ML IV PRN (12:30)
[2017-01-07 12:41] LABS: WBC DIFF SAMPLE 15
[2017-01-07 12:42] LABS: OVALOCYTES 1+ (NORMAL); PLATELET ESTIMATE SMEAR LOW (NORMAL)
[2017-01-07 12:43] LABS: PLATELET MORPHOLOGY NORMAL (NORMAL); SCAN/DIFF FINAL DIFF MANUAL
[2017-01-07] MEDS ORDERED: POTASSIUM CHLORIDE 10 MEQ CONTROLLED RELEASE TAB PO ONE (13:00)
--- NOTE | 2017-01-07 13:05 | HHI.CCPN ---
Subjective Remarks/Hospital Course Hospital Course: This is a 71-year-old male with a history of B-cell lymphoma undergoing chemotherapy who was originally admitted to the hospital with febrile neutropenia and was found to have MRSA bacteremia. He is maintained on IV vancomycin. Despite this he is been increasingly more toxic appearing. His respiratory rate is been increasing and he is experiencing increasing respiratory distress. The patient tells me he feels fatigued. He endorses fever, chills, shortness of breath. He says he just doesn't feel well. Throughout the day stays become increasingly dyspneic with an rising respiratory rate. His ABG demonstrates a severe metabolic acidosis with a base deficit of 10. His blood cultures have been positive for 3 days despite adequate therapy. He does have a Port-A-Cath that remains in place. Critical care medicine is consulted to evaluate and manage his respiratory distress and persistent bacteremia, severe neutropenic sepsis 01/06: continues to be in significant respiratory distress with a severe non- gapped metabolic acidosis. also has been on diamox since 12/29. bicarbonate drip started this morning. lactate still < 2. hemodynamics stable. clinically appears hypovolemic. tachycardia persists. port removed yesterday. blood cultures continue to be positive for MRSA. on vancomycin with appropriate trough. Subjective: 01/07: Brother at bedside. Arousable and will follow commands. Very lethargic however somewhat improved from yesterday according to RN. Currently afebrile. Very poor appetite. Objective Vital Signs Date Time Temp Pulse Resp B/P (MAP) Pulse Ox O2 Delivery O2 Flow Rate FiO2 01/07/17 12:31 88 21 105/73 (84) 99 01/07/17 12:00 99.2 01/07/17 08:19 Nasal Cannula 2.00 01/03/17 22:46 21 Intake and Output 01/07/17 01/07/17 01/08/17 08:00 16:00 00:00 Intake Total 234 ml Output Total 550 ml Balance -316 ml Result Diagram: 01/07/17 1100 01/07/17 1100 Other Results Microbiology Date/Time Source Procedure Growth Status 01/07/17 12:00 Blood Peripheral Aerobic Blood Culture Pending Received 01/07/17 12:00 Blood Peripheral Anaerobic Blood Culture Pending Received 01/02/17 19:50 Urine Clean Catch Urine Culture - Final <10,000 CFU/ML GRAM POSITIVE SCOUT Complete 01/05/17 16:52 Catheter Tip Subclavian Wound Culture - Preliminary S. Aureus Mrsa Resulted Imaging Last Impressions Abdomen X-Ray 01/06/17 0000 Signed Impressions: Service Date/Time: Friday, January 06, 2017 08:29 - CONCLUSION: No dilated loops of small or large bowel.. Dion Alford MD Chest X-Ray 01/05/17 1021 Signed Impressions: Service Date/Time: Thursday, January 05, 2017 10:34 - CONCLUSION: 1. Minimal bibasilar airspace disease, likely atelectasis. 2. Otherwise, no acute abnormality or significant interval change. Armando Martínez MD Neck CT 01/05/17 0000 Signed Impressions: Service Date/Time: Thursday, January 05, 2017 11:54 - CONCLUSION: Negative CT soft tissue neck with contrast. Dion Alford MD Head CT 01/05/17 0000 Signed Impressions: Service Date/Time: Thursday, January 05, 2017 11:54 - CONCLUSION: Negative noncontrast CT Wander Hodges MD Objective Remarks GENERAL: 71-year-old male, resting in bed with head elevated in no acute distress. HEENT: Normocephalic. Atraumatic. Pupils equal, round, reactive about 3 mm bilaterally, conjugate. Mucous membranes are moderately moist and pink. Drooling from all membranes. NECK: Trachea is midline. There is no JVD. CHEST: Incision over poor removal/left chest is clean dry and intact. CARDIOVASCULAR: IRR. S1, S2. No S4. Without murmur ABDOMEN: Soft, nontender, nondistended. No guarding. MUSCULOSKELETAL: Pulses 2+. No peripheral edema. NEUROLOGICAL: RASS 0. Moves all 4 extremity spontaneously. Follows commands by squeezing hands and wiggling toes. Nonfocal. A/P Assessment and Plan Neuro/Psych: Acute encephalopathy/toxic metabolic Currently on oxycodone/acetaminophen 5/325 -10/325 one tablet every 6 hours when necessary pain 3-10 CV: A. fib with RVR Currently on metoprolol 25 mg twice a day, diltiazem 240 mg daily diltiazem currently 10 mg an hour. Rate currently controlled. Appears a flutter currently 2-D echocardiogram 01/04 revealed EF 40-45%. Decreased LV systolic function. Cannot exclude vegetations. Resp: Acute respiratory insufficiency Nasal cannula to maintain saturations greater than or equal to 92% Incentive spirometry while awake Follow-up a.m. chest x-ray GI: Advance diet as tolerated. : Almazan catheter if indicated Endo: Hypothyroidism Continue levothyroxine 25 g daily Continue allopurinol 200 mg daily for tumor lysis syndrome Renal: Creatinine currently within normal limits Monitor urine output Accurate I's and O's Currently on one half normal saline at 84 cc an hour Heme: History of B-cell CLL Dilaudid, a negative status post hyper CVAD/rituximab and intrathecal chemotherapy Pancytopenia including leukopenia, normocytic anemia thrombocytopenia Transfuse to thresholds per Dr. Rice, hematology ID: MRSA bacteremia Current regimen daptomycin 700 mg IV every 24 hours and cefepime 2 g IV every 8 hours and fluconazole 200 mg daily Followed by infectious disease Likely will need JOSETTE once quickly stable MSK: Osteoarthritis Continuing calcium carbonate vitamin D FEN: Hypokalemia Discontinue bicarbonate drip. 80 mEq KCl by mouth and 30 mEq IV 1 now. Recheck in a.m. Access - Utilize peripheral IV. Central line if indicated Prophylaxis - GI - pantoprazole - DVT - SCD/holding pharmacological prophylaxis in light of thrombocytopenia Critical Care: The total critical care time was 35 minutes. Time to perform other separately billable procedures was not included in the critical care time. Nabeel Fernández MD Jan 07, 2017 13:05
[2017-01-07] MEDS: POTASSIUM CHLOR 10 MEQ PREMIX 100 ML IV SCH ×3 (13:37→17:43)
[2017-01-07] MEDS: FILGRASTIM 480 MCG/1.6 ML VIAL SQ SCH (13:37)
[2017-01-07] MEDS: SODIUM CHLOR 0.45% 1000 ML INJ 1,000 ML IV SCH (13:38)
[2017-01-07] MEDS: DAPTOmycin INJ 700 MG in SODIUM CHLORIDE 0.9% INJ 100 ML IV SCH (15:43)
[2017-01-08] VITALS (14 sets, daily range): BP systolic 100–144; BP diastolic 54–89; PULSE 78–105; RESP 14–24; TEMP 99–100; O2SAT 92–100
[2017-01-08] MEDS: SODIUM CHLORIDE 0.9% FLUSH 10 ML FLUSH IV FLUSH SCH ×3 (03:10→20:26)
[2017-01-08] MEDS: SODIUM CHLOR 0.45% 1000 ML INJ 1,000 ML IV SCH ×2 (03:10→13:46)
[2017-01-08] MEDS: METOPROLOL TARTRATE 5 MG/5 ML VIAL IV PUSH PRN (03:19)
[2017-01-08] MEDS: oxyCODONE/ACETAMINOPHEN 10 MG/325 MG TAB PO PRN (03:19)
[2017-01-08] MEDS: CHLORHEXIDINE GLUCONATE 2 % 1 PACK (2 CLOTHS)(taper/protocol) TOPICAL SCH (04:00)
[2017-01-08] MEDS: LEVOTHYROXINE SODIUM 25 MCG TAB PO SCH (05:25)
[2017-01-08] MEDS: CEFEPIME INJ 2,000 MG in SODIUM CHLORIDE 0.9% INJ 100 ML IV SCH ×3 (05:25→20:30)
[2017-01-08] MEDS: DILTIAZEM INJ 125 MG in SODIUM CHLORIDE 0.9% INJ 100 ML IV PRN (06:19)
[2017-01-08] MEDS: INSULIN NovoLIN REGULAR SUPPLEMENTAL SCALE SQ SCH ×4 (08:00→20:54)
--- NOTE | 2017-01-08 08:13 | PD.ONC.PN ---
Subjective Subjective Remarks Patient seen and examined, vital signs, medications labs and microbiology reviewed. Subjectively the patient reports breathing a little bit better today. His family drove down from [place] yesterday and he appears to be in better spirits because of that. He did have a fever of 100F at 8 PM last night. Infusion port catheter tip is also growing MRSA. He remains on daptomycin, cefepime and fluconazole for antimicrobial coverage. Over the past 24 hours his oral nutritional intake has been close to nil. Objective Data Date Time Temp Pulse Resp B/P (MAP) Pulse Ox O2 Delivery O2 Flow Rate FiO2 01/08/17 07:00 Nasal Cannula 3.00 21 01/08/17 06:19 87 126/61 01/08/17 06:00 86 01/08/17 04:00 81 01/08/17 04:00 99.4 81 14 100/54 (69) 98 01/08/17 02:00 78 01/08/17 00:00 99.0 99 22 144/89 (107) 100 01/08/17 00:00 99 01/07/17 23:25 189 129/85 01/07/17 22:00 92 01/07/17 21:30 101 119/65 01/07/17 20:00 88 01/07/17 20:00 100.0 88 11 115/71 99 01/07/17 19:00 Nasal Cannula 2.00 21 01/07/17 18:20 96 127/74 01/07/17 18:00 96 01/07/17 16:00 99.3 97 28 122/77 (92) 98 01/07/17 16:00 97 01/07/17 15:00 94 20 114/69 (84) 99 01/07/17 14:00 93 01/07/17 14:00 93 20 108/66 (80) 99 01/07/17 13:00 89 17 113/68 (83) 99 01/07/17 12:31 88 21 105/73 (84) 99 01/07/17 12:30 83 105/73 01/07/17 12:00 91 01/07/17 12:00 99.2 91 17 99/62 (74) 100 01/07/17 11:32 94 23 122/77 (92) 82 01/07/17 11:00 131 26 165/107 (126) 99 01/07/17 10:00 107 31 152/90 (110) 97 01/07/17 10:00 107 01/07/17 09:00 116 18 156/74 (101) 99 01/07/17 08:19 99 Nasal Cannula 2.00 01/08/17 01/08/17 01/08/17 06:59 14:59 22:59 Intake Total 1711 ml Output Total 750 ml Balance 961 ml Result Diagram: 01/07/17 1100 01/07/17 1100 Laboratory Results Laboratory Tests Test 01/07/17 11:00 White Blood Count 0.1 TH/MM3 Red Blood Count 2.32 MIL/MM3 Hemoglobin 7.4 GM/DL Hematocrit 21.4 % Mean Corpuscular Volume 92.4 FL Mean Corpuscular Hemoglobin 32.1 PG Mean Corpuscular Hemoglobin Concent 34.7 % Red Cell Distribution Width 20.8 % Platelet Count 12 TH/MM3 Mean Platelet Volume 8.2 FL CBC Comment AUTO DIFF Differential Total Cells Counted 15 Lymphocytes % 93 % Monocytes % 7 % Neutrophils # (Manual) 0.0 TH/MM3 Differential Comment FINAL DIFF MANUAL Platelet Estimate LOW Platelet Morphology Comment NORMAL Ovalocytes 1+ Blood Urea Nitrogen 31 MG/DL Creatinine 1.17 MG/DL Random Glucose 227 MG/DL Calcium Level 8.8 MG/DL Magnesium Level 2.1 MG/DL Sodium Level 143 MEQ/L Potassium Level 2.8 MEQ/L Chloride Level 109 MEQ/L Carbon Dioxide Level 24.9 MEQ/L Anion Gap 9 MEQ/L Estimat Glomerular Filtration Rate 62 ML/MIN Uric Acid 3.1 MG/DL Culture Results Microbiology Date/Time Source Procedure Growth Status 01/07/17 12:00 Blood Peripheral Aerobic Blood Culture Pending Received 01/07/17 12:00 Blood Peripheral Anaerobic Blood Culture Pending Received 01/07/17 11:00 Blood Peripheral Aerobic Blood Culture Pending Received 01/07/17 11:00 Blood Peripheral Anaerobic Blood Culture Pending Received 01/05/17 15:14 Blood Peripheral Aerobic Blood Culture - Final S. Aureus Mrsa Resulted 01/05/17 15:14 Blood Peripheral Anaerobic Blood Culture - Preliminary NO GROWTH IN 1 DAY Resulted 01/05/17 16:52 Catheter Tip Subclavian Wound Culture - Preliminary S. Aureus Mrsa Resulted Administered Medications Medications (Trade) Dose Ordered Sig/Daniel Route PRN Reason Start Time Stop Time Status Last Admin Dose Admin Prednisone (Deltasone) 20 mg DAILY PO 12/29/16 09:00 01/07/17 10:49 Pantoprazole Sodium (Protonix) 40 mg DAILY PO 12/29/16 09:00 01/07/17 10:49 Allopurinol (Zyloprim) 200 mg DAILY PO 12/30/16 09:00 01/07/17 10:49 Calcium/Vitamin D (Oscal-D 250-125) 500 mg Q12HR PO 12/29/16 21:00 01/07/17 20:15 Diltiazem HCl (Cardizem Cd) 240 mg DAILY PO 12/30/16 09:00 Future hold 01/07/17 10:48 Diphenhydramine HCl (Benadryl) 25 mg Q4H PRN PO SEE LABEL COMMENTS 12/29/16 11:00 12/31/16 17:49 Lactobacillus Acidophilus (Lactinex) 1 tab TID PO 12/29/16 13:00 01/07/17 18:18 Megestrol Acetate (Megace Liq) 400 mg DAILY PO 12/30/16 09:00 01/07/17 10:49 Metoprolol Tartrate (Lopressor) 25 mg Q12HR PO 12/29/16 21:00 01/07/17 20:15 Hydrocortisone (Nutracort 1% Oint) 1 applic BID TOPICAL 12/29/16 13:00 01/07/17 20:18 Sodium Chloride (NS Flush) 2 ml UNSCH PRN IV FLUSH FLUSH AFTER USING IV ACCESS 12/29/16 12:00 01/04/17 21:08 Sodium Chloride (NS Flush) 2 ml BID IV FLUSH 12/29/16 21:00 01/08/17 03:10 Acetaminophen (Tylenol) 650 mg Q4H PRN PO TEMP > 100.4 12/29/16 11:30 01/03/17 00:11 Oxycodone/ Acetaminophen (Percocet 10-325 Mg) 1 tab Q6H PRN PO PAIN SCALE 6 TO 10 12/29/16 11:30 01/08/17 03:19 Morphine Sulfate (Morphine Inj) 2 mg Q3H PRN IV PUSH Pain 3-5; if unable to take PO 12/29/16 11:30 01/07/17 18:18 Morphine Sulfate (Morphine Inj) 4 mg Q3H PRN IV PUSH Pain 6-10;if unable to take PO 12/29/16 11:30 01/07/17 16:22 Senna/Docusate Sodium (Cindy-Colace) 1 tab BID PO 12/29/16 21:00 01/07/17 20:16 Levothyroxine Sodium (Synthroid) 25 mcg DAILY@0600 PO 12/31/16 06:00 01/08/17 05:25 Insulin Human Regular (NovoLIN R SUPPLEMENTAL SCALE) 1 ACHS SLIDING SCALE SQ 01/01/17 21:00 01/07/17 20:16 Insulin Detemir (Levemir Inj) 5 units Q12HR SQ 01/02/17 09:00 01/07/17 20:16 Cefepime HCl 2000 mg/Sodium Chloride 100 ml @ 200 mls/hr Q8HR IV 01/03/17 14:00 01/08/17 05:25 Fluconazole (Diflucan) 200 mg DAILY PO 01/03/17 11:00 01/07/17 10:48 Filgrastim (Neupogen Inj) 480 mcg DAILY@14 SQ 01/03/17 14:00 01/07/17 13:37 Metoprolol Tartrate (Lopressor Inj) 5 mg Q6H PRN IV PUSH RAPID HEART RATE 01/05/17 10:45 01/08/17 03:19 Miscellaneous Information Patient in critical care unit? Ass... [id number] .XX 01/05/17 22:30 01/05/17 22:30 Chlorhexidine Gluconate (Chlorhexidine 2% Cloth) 3 pack DAILY@04 TOPICAL 01/06/17 04:00 01/10/17 04:01 01/08/17 04:00 Diltiazem HCl 125 mg/Sodium Chloride 125 ml @ 5 mls/hr TITRATE PRN IV Tachycardia 01/06/17 13:30 01/08/17 06:19 Daptomycin 700 mg/ Sodium Chloride 100 ml @ 200 mls/hr Q24H IV 01/06/17 16:00 01/07/17 15:43 Sodium Chloride 1,000 ml @ 84 mls/hr [id number] IV 01/07/17 13:00 01/08/17 03:10 Objective Remarks GENERAL PHYSICAL APPEARANCE: Mr. Chou is an elderly male. He is laying in bed, he appears to be more comfortable today he appears very weak but does acknowledge my presence and is able to speak to 3 words at a time. HEENT: Had is atraumatic, normocephalic. Conjunctivae are pale, sclerae are anicteric. EOMI. PERRLA. Oral exam - no pharyngeal erythema. NECK EXAM: No palpable cervical or supraclavicular lymphadenopathy. RESPIRATORY EXAM: Poor inspiratory effort, decreased bibasilar breath sounds. CARDIOVASCULAR EXAM:irregular, S1 and S2, tachycardia improved. ABDOMINAL EXAM: Obese belly, he reports tenderness to light palpation, there appears to be increased tympany to percussion. Positive bowel sounds. LOWER EXTREMITIES: Bilateral pretibial edema. No calf tenderness. 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 SKIN EXTREMITIES: He has an exfoliative rash noted over his arms and neck. Chest: Interval removal of left-sided infusion port. Assessment/Plan Assessment Mr. 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 His disease is associated with very complex cytogenetics and unfortunately this predicts a poor outcome and high rates of relapse despite appropriate and aggressive treatment. He is status post induction remission therapy with Hyper-CVAD with Rituxan and intrathecal chemotherapy which was delivered in mid-October of 2016. 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 Plan 1. Initiated on chemotherapy of hyper-CVAD arm B from 12/30/2016 through 2016. Leucovorin rescue continues at 50mg Q6H. His methotrexate level remains elevated at last result of 0.08. This should be less than 0.05 prior to stopping the leucovorin. He is now cytopenic secondary to myelosuppression from chemotherapy. He will remain on Neupogen 480 g subcutaneous daily for neutropenia. 2. Kidney function stable, BMP ordered this morning. Replace electrolytes as needed. 3. MRSA bacteremia; on daptomycin. His infusion port was removed on 2016. All cultures remained positive, repeat blood cultures were submitted on 01/07/2017 these have shown no growth over the past 12 hours. Disposition: Patient is presently critically ill with neutropenic sepsis secondary to MRSA bacteremia. Continue growth factor support with Neupogen. Transfusion support with platelets and red blood cells as needed. Broad-spectrum antibiotic coverage for management of MRSA bacteremia/sepsis. Nutritional support needed, I did encourage him to increase his oral intake otherwise she will require placement of a Dobbhoff tube. Patient's granddaughter and her were updated at bedside today. Sukhwinder Rice MD Jan 08, 2017 08:13
[2017-01-08] MEDS: HYDROCORTISONE 1% OINT 30 GM TUBE TOPICAL SCH ×2 (09:00→20:32)
[2017-01-08] MEDS: CALCIUM/VITAMIN D 250 MG/125 U TAB PO SCH ×2 (09:06→20:29)
[2017-01-08] MEDS: DOCUSATE SODIUM 50 MG/SENNA 8.6 MG TAB PO SCH ×2 (09:06→20:29)
[2017-01-08] MEDS: predniSONE 20 MG TAB PO SCH (09:06)
[2017-01-08] MEDS: DILTIAZEM-CD 240 MG CAP ER PO SCH (09:06)
[2017-01-08] MEDS: PANTOPRAZOLE SOD 40 MG DELAYED RELEASE TAB PO SCH (09:06)
[2017-01-08] MEDS: LACTOBACILLUS ACIDOPHILUS TAB PO SCH ×3 (09:06→18:03)
[2017-01-08] MEDS: METOPROLOL TARTRATE 25 MG TAB PO SCH ×2 (09:06→20:29)
[2017-01-08] MEDS: INSULIN DETEMIR 100 UNITS/ML VIAL SQ SCH ×2 (09:07→20:29)
[2017-01-08] MEDS: MEGESTROL ACETATE SUSP 400 MG/10 ML CUP PO SCH (09:07)
[2017-01-08] MEDS: FLUCONAZOLE 200 MG TAB PO SCH (09:07)
[2017-01-08] MEDS: ALLOPURINOL 100 MG TAB PO SCH (09:09)
[2017-01-08 09:32] LABS: HEMATOCRIT 21.7 % (39.0-51.0); MEAN CORPUSCULAR HEMOGLOBIN 31.9 PG (27.0-34.0); RED BLOOD COUNT 2.31 MIL/MM3 (4.50-5.90); RED CELL DISTRIBUTION WIDTH 21.4 % (11.6-17.2); WHITE BLOOD COUNT 0.8 TH/MM3 (4.0-11.0)
[2017-01-08 09:37] LABS: HEMO FLAGS AUTO DIFF
[2017-01-08 09:41] LABS: PLATELET COUNT 10 TH/MM3 (150-450)
--- NOTE | 2017-01-08 09:53 | HHI.CCPN ---
Subjective Remarks/Hospital Course Hospital Course: This is a 71-year-old male with a history of B-cell lymphoma undergoing chemotherapy who was originally admitted to the hospital with febrile neutropenia and was found to have MRSA bacteremia. He is maintained on IV vancomycin. Despite this he is been increasingly more toxic appearing. His respiratory rate is been increasing and he is experiencing increasing respiratory distress. The patient tells me he feels fatigued. He endorses fever, chills, shortness of breath. He says he just doesn't feel well. Throughout the day stays become increasingly dyspneic with an rising respiratory rate. His ABG demonstrates a severe metabolic acidosis with a base deficit of 10. His blood cultures have been positive for 3 days despite adequate therapy. He does have a Port-A-Cath that remains in place. Critical care medicine is consulted to evaluate and manage his respiratory distress and persistent bacteremia, severe neutropenic sepsis 01/06: continues to be in significant respiratory distress with a severe non- gapped metabolic acidosis. also has been on diamox since 12/29. bicarbonate drip started this morning. lactate still < 2. hemodynamics stable. clinically appears hypovolemic. tachycardia persists. port removed yesterday. blood cultures continue to be positive for MRSA. on vancomycin with appropriate trough. 01/07: Brother at bedside. Arousable and will follow commands. Very lethargic however somewhat improved from yesterday according to RN. Currently afebrile. Very poor appetite. Subjective: 01/08: Tmax 100. Currently 99.4. More awake and alert. Very poor appetite. Noted Doppler placement recommended per hematology however platelets are currently at 10. Objective Vital Signs Date Time Temp Pulse Resp B/P (MAP) Pulse Ox O2 Delivery O2 Flow Rate FiO2 01/08/17 08:46 99 Nasal Cannula 2.00 01/08/17 07:00 21 01/08/17 06:19 87 126/61 01/08/17 04:00 99.4 14 Intake and Output 01/08/17 01/08/17 01/09/17 08:00 16:00 00:00 Intake Total 1711 ml Output Total 750 ml Balance 961 ml Result Diagram: 01/08/17 0727 01/07/17 1100 Other Results Microbiology Date/Time Source Procedure Growth Status 01/08/17 07:45 Blood Peripheral Aerobic Blood Culture Pending Received 01/08/17 07:45 Blood Peripheral Anaerobic Blood Culture Pending Received 01/02/17 19:50 Urine Clean Catch Urine Culture - Final <10,000 CFU/ML GRAM POSITIVE SCOUT Complete 01/05/17 16:52 Catheter Tip Subclavian Wound Culture - Preliminary S. Aureus Mrsa Resulted Imaging Last Impressions Abdomen X-Ray 01/06/17 0000 Signed Impressions: Service Date/Time: Friday, January 06, 2017 08:29 - CONCLUSION: No dilated loops of small or large bowel.. Dion Alford MD Chest X-Ray 01/05/17 1021 Signed Impressions: Service Date/Time: Thursday, January 05, 2017 10:34 - CONCLUSION: 1. Minimal bibasilar airspace disease, likely atelectasis. 2. Otherwise, no acute abnormality or significant interval change. Armando Martínez MD Neck CT 01/05/17 0000 Signed Impressions: Service Date/Time: Thursday, January 05, 2017 11:54 - CONCLUSION: Negative CT soft tissue neck with contrast. Dion Alford MD Head CT 01/05/17 0000 Signed Impressions: Service Date/Time: Thursday, January 05, 2017 11:54 - CONCLUSION: Negative noncontrast CT Wander Hodges MD Objective Remarks GENERAL: 71-year-old male, resting in bed with head elevated in no acute distress. HEENT: Normocephalic. Atraumatic. Pupils equal, round, reactive about 3 mm bilaterally, conjugate. Mucous membranes are moderately moist and pink. Drooling from all membranes. NECK: Trachea is midline. There is no JVD. CHEST: Incision over port removal/left chest is clean dry and intact. CARDIOVASCULAR: IRR. S1, S2. No S4. Without murmur ABDOMEN: Soft, nontender, nondistended. No guarding. MUSCULOSKELETAL: Pulses 2+. No peripheral edema. NEUROLOGICAL: RASS 0. Moves all 4 extremity spontaneously. Follows commands by squeezing hands and wiggling toes. Nonfocal. A/P Assessment and Plan Neuro/Psych: Acute encephalopathy/toxic metabolic Currently on oxycodone/acetaminophen 5/325 -10/325 one tablet every 6 hours when necessary pain 3-10 CT brain/ 01/05 with no acute findings. CV: A. fib with RVR Currently on metoprolol 25 mg twice a day, diltiazem extended release 240 mg daily diltiazem drip currently 5 mg an hour. Rate currently controlled. Appears a flutter currently 2-D echocardiogram 01/04 revealed EF 40-45%. Decreased LV systolic function. Cannot exclude vegetations. Resp: Acute respiratory insufficiency Nasal cannula to maintain saturations greater than or equal to 92% Incentive spirometry while awake Follow-up a.m. chest x-ray GI: Advance diet as tolerated.. Very poor appetite.. Possibly will need nasogastric tube however will place a platelets currently : Almazan catheter if indicated Endo: Hypothyroidism Continue levothyroxine 25 g daily Continue allopurinol 200 mg daily for tumor lysis syndrome a lesser gas at 3.1 Renal: Creatinine currently within normal limits Monitor urine output Accurate I's and O's Currently on one half normal saline at 84 cc an hour Heme: History of B-cell CLL Dilaudid, a negative status post hyper CVAD/rituximab and intrathecal chemotherapy Pancytopenia including leukopenia, normocytic anemia thrombocytopenia Transfuse to thresholds per Dr. Rice, hematology Status post 2 PRBCs and 1 irradiated platelets this admission ID: MRSA bacteremia Current regimen daptomycin 700 mg IV every 24 hours and cefepime 2 g IV every 8 hours and fluconazole 200 mg daily Followed by infectious disease Likely will need JOSETTE once stable MSK: Osteoarthritis Continuing calcium carbonate vitamin D FEN: Hypokalemia Discontinue bicarbonate drip 01/07 30 mEq KCl by mouth and 30 mEq IV Recheck in a.m. Access - Utilize peripheral IV. Central line if indicated Prophylaxis - GI - pantoprazole - DVT - SCD/holding pharmacological prophylaxis in light of thrombocytopenia Critical Care: The total critical care time was 35 minutes. Time to perform other separately billable procedures was not included in the critical care time. Nabeel Fernández MD Jan 08, 2017 09:53
[2017-01-08 10:07] LABS: ALKALINE PHOSPHATASE 48 U/L (45-117); ALT (GPT) 20 U/L (12-78); ANION GAP 12 MEQ/L (5-15); AST (GOT) 37 U/L (15-37); BICARBONATE 21.4 MEQ/L (21.0-32.0); BLOOD UREA NITROGEN 52 MG/DL (7-18); CHLORIDE 109 MEQ/L (98-107); CREATINE KINASE 555 U/L (39-308); GLOMERULAR FILTRATION RATE 43 ML/MIN (>89); MAGNESIUM 2.6 MG/DL (1.5-2.5); POTASSIUM 3.3 MEQ/L (3.5-5.1); SODIUM (NA) 142 MEQ/L (136-145); TOTAL BILIRUBIN ADULT 3.6 MG/DL (0.2-1.0)
[2017-01-08 10:36] LABS: CKMB 0.7 NG/ML (0.5-3.6)
[2017-01-08 10:55] LABS: MYELOCYTES 4 % (0-0); PLATELET ESTIMATE SMEAR RARE (NORMAL); PLATELET MORPHOLOGY NORMAL (NORMAL); SCAN/DIFF FINAL DIFF MANUAL; WBC DIFF SAMPLE 25
[2017-01-08 10:56] LABS: OVALOCYTES 1+ (NORMAL)
--- NOTE | 2017-01-08 11:24 | HHI.IDPN ---
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 He received induction chemotherapy at that time, and hospitalization complicated by neutropenic fevers. He also developed a rash and subsequently underwent skin biopsy which revealed vacuolar interface dermatitis. Differential diagnosis of that biopsy included fixed drug eruption, erythema multiforme, GVHD, and conncetive tissue disease. His skin rash improved with systemic corticosteroids. He has been admitted for consolidation chemotherapy. He received MTX and cytarabine. Since yesterday, he started having fevers. he is complaining of body malaise, diffuse body aches, and neck pain. Denies headache or photophobia. No respiratory complaints. No GI or complaints. His skin is better, and less itchy. 2 BC done yesterday, one is growing GPC. Infectious Disease consultation has been requested to evaluate patient with fevers. He is not neutropenic. he is on IV Vanco, Cefepime and Diflucan. Notes reviewed Temps low grade last night Remains very weak, and lethargic All BC with MRSA, 01/02-1023 Port removed - 01/05 BC 01/06 negative so far On nasal O2 Mental status still not his baseline BP ok UA ok Pancytopenia persists Echo not a good study Antibiotics I attest that I obtained, updated or reviewed the home and current medications. Cubicin Cefepime Diflucan Current Medications Medications (Trade) Dose Ordered Sig/Daniel Route Start Time Stop Time Status Last Admin (Reglan Inj) 5 mg Q6H PRN IV PUSH 12/29/16 08:00 (Deltasone) 20 mg DAILY PO 12/29/16 09:00 01/08/17 09:06 (Protonix) 40 mg DAILY PO 12/29/16 09:00 01/08/17 09:06 (Zyloprim) 200 mg DAILY PO 12/30/16 09:00 01/08/17 09:09 (Oscal-D 250-125) 500 mg Q12HR PO 12/29/16 21:00 01/08/17 09:06 (Cardizem Cd) 240 mg DAILY PO 12/30/16 09:00 Future hold 01/08/17 09:06 (Benadryl) 25 mg Q4H PRN PO 12/29/16 11:00 12/31/16 17:49 (Lactinex) 1 tab TID PO 12/29/16 13:00 01/08/17 09:06 (Megace Liq) 400 mg DAILY PO 12/30/16 09:00 01/08/17 09:07 (Lopressor) 25 mg Q12HR PO 12/29/16 21:00 01/08/17 09:06 (Nutracort 1% Oint) 1 applic BID TOPICAL 12/29/16 13:00 01/07/17 20:18 (NS Flush) 2 ml UNSCH PRN IV FLUSH 12/29/16 12:00 01/04/17 21:08 (NS Flush) 2 ml BID IV FLUSH 12/29/16 21:00 01/08/17 09:10 (Tylenol) 650 mg Q4H PRN PO 12/29/16 11:30 01/03/17 00:11 (Zofran Inj) 4 mg Q6H PRN IVP 12/29/16 11:30 (Compazine Supp) 25 mg Q12H PRN RECTAL 12/29/16 11:30 (Tylenol) 650 mg Q6H PRN PO 12/29/16 11:30 (Percocet 5-325 Mg) 1 tab Q6H PRN PO 12/29/16 11:30 (Percocet 10-325 Mg) 1 tab Q6H PRN PO 12/29/16 11:30 01/08/17 03:19 (Morphine Inj) 2 mg Q3H PRN IV PUSH 12/29/16 11:30 01/07/17 18:18 (Morphine Inj) 4 mg Q3H PRN IV PUSH 12/29/16 11:30 01/07/17 16:22 (Narcan Inj) 0.4 mg UNSCH PRN IV PUSH 12/29/16 11:45 (Cindy-Colace) 1 tab BID PO 12/29/16 21:00 01/08/17 09:06 (Milk Of Magnesia Liq) 30 ml Q12H PRN PO 12/29/16 11:45 (Senokot) 17.2 mg Q12H PRN PO 12/29/16 11:45 (Dulcolax Supp) 10 mg DAILY PRN RECTAL 12/29/16 11:45 (Lactulose Liq) 30 ml DAILY PRN PO 12/29/16 11:45 (Synthroid) 25 mcg DAILY@0600 PO 12/31/16 06:00 01/08/17 05:25 (NovoLIN R SUPPLEMENTAL SCALE) 1 ACHS SLIDING SCALE SQ 01/01/17 21:00 01/07/17 20:16 (Levemir Inj) 5 units Q12HR SQ 01/02/17 09:00 01/08/17 09:07 Cefepime HCl 2000 mg/Sodium Chloride 100 ml @ 200 mls/hr Q8HR IV 01/03/17 14:00 01/08/17 05:25 (Diflucan) 200 mg DAILY PO 01/03/17 11:00 01/08/17 09:07 (Neupogen Inj) 480 mcg DAILY@14 SQ 01/03/17 14:00 01/07/17 13:37 (Lopressor Inj) 5 mg Q6H PRN IV PUSH 01/05/17 10:45 01/08/17 03:19 Miscellaneous Information Patient in critical care unit? Ass... Q361D .XX 01/05/17 22:30 01/05/17 22:30 (Chlorhexidine 2% Cloth) 3 pack DAILY@04 TOPICAL 01/06/17 04:00 01/10/17 04:01 01/08/17 04:00 (Chlorhexidine 2% Cloth) 3 pack UNSCH PRN TOPICAL 01/05/17 22:30 01/10/17 22:27 (Tylenol) 650 mg Q4H PRN PO 01/06/17 09:00 (Benadryl) 25 mg Q4H PRN PO 01/06/17 09:00 Diltiazem HCl 125 mg/Sodium Chloride 125 ml @ 5 mls/hr TITRATE PRN IV 01/06/17 13:30 01/08/17 06:19 Daptomycin 700 mg/ Sodium Chloride 100 ml @ 200 mls/hr Q24H IV 01/06/17 16:00 01/07/17 15:43 Sodium Chloride 1,000 ml @ 84 mls/hr [id number] IV 01/07/17 13:00 01/08/17 03:10 Lines Port - removed 01/05 Past Medical History 1. B-cell ALL ([place] chromosome negative). 2. Acute kidney failure (now recovered). 3. 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 4. Severe rash, currently present. 5. Protein calorie malnutrition. 6. Chemotherapy-related myelosuppression. 7. Atrial fibrillation. Past Surgical History 1. Appendectomy. 2. Benign polyp removal from the throat. 3. Lumbar puncture with intrathecal chemotherapy injection. 4. Port placement. 5. Bone marrow biopsy and aspiration. 6. Skin biopsy Allergies: Coded Allergies: No Known Allergies (Unverified , 10/24/16) Objective . Vital Signs Date Time Temp Pulse Resp B/P (MAP) Pulse Ox O2 Delivery O2 Flow Rate FiO2 01/08/17 08:46 99 Nasal Cannula 2.00 01/08/17 07:00 Nasal Cannula 3.00 21 01/08/17 06:19 87 126/61 01/08/17 06:00 86 01/08/17 04:00 81 01/08/17 04:00 99.4 81 14 100/54 (69) 98 01/08/17 02:00 78 01/08/17 00:00 99.0 99 22 144/89 (107) 100 01/08/17 00:00 99 01/07/17 23:25 189 129/85 01/07/17 22:00 92 01/07/17 21:30 101 119/65 01/07/17 20:00 88 01/07/17 20:00 100.0 88 11 115/71 99 01/07/17 19:00 Nasal Cannula 2.00 21 01/07/17 18:20 96 127/74 01/07/17 18:00 96 01/07/17 16:00 99.3 97 28 122/77 (92) 98 01/07/17 16:00 97 01/07/17 15:00 94 20 114/69 (84) 99 01/07/17 14:00 93 01/07/17 14:00 93 20 108/66 (80) 99 01/07/17 13:00 89 17 113/68 (83) 99 01/07/17 12:31 88 21 105/73 (84) 99 01/07/17 12:30 83 105/73 01/07/17 12:00 91 01/07/17 12:00 99.2 91 17 99/62 (74) 100 01/07/17 11:32 94 23 122/77 (92) 82 . Laboratory Tests Test 01/07/17 11:00 01/08/17 07:27 White Blood Count 0.1 TH/MM3 0.8 TH/MM3 Red Blood Count 2.32 MIL/MM3 2.31 MIL/MM3 Hemoglobin 7.4 GM/DL 7.4 GM/DL Hematocrit 21.4 % 21.7 % Mean Corpuscular Volume 92.4 FL 94.0 FL Mean Corpuscular Hemoglobin 32.1 PG 31.9 PG Mean Corpuscular Hemoglobin Concent 34.7 % 34.0 % Red Cell Distribution Width 20.8 % 21.4 % Platelet Count 12 TH/MM3 10 TH/MM3 Mean Platelet Volume 8.2 FL 9.3 FL CBC Comment AUTO DIFF AUTO DIFF Differential Total Cells Counted 15 25 Lymphocytes % 93 % 88 % Monocytes % 7 % 8 % Neutrophils # (Manual) 0.0 TH/MM3 0.0 TH/MM3 Differential Comment FINAL DIFF MANUAL FINAL DIFF MANUAL Platelet Estimate LOW RARE Platelet Morphology Comment NORMAL NORMAL Ovalocytes 1+ 1+ Myelocytes 4 % Laboratory Tests Test 01/07/17 11:00 01/08/17 07:45 Blood Urea Nitrogen 31 MG/DL 52 MG/DL Creatinine 1.17 MG/DL 1.61 MG/DL Random Glucose 227 MG/DL 138 MG/DL Calcium Level 8.8 MG/DL 8.7 MG/DL Magnesium Level 2.1 MG/DL 2.6 MG/DL Sodium Level 143 MEQ/L 142 MEQ/L Potassium Level 2.8 MEQ/L 3.3 MEQ/L Chloride Level 109 MEQ/L 109 MEQ/L Carbon Dioxide Level 24.9 MEQ/L 21.4 MEQ/L Anion Gap 9 MEQ/L 12 MEQ/L Estimat Glomerular Filtration Rate 62 ML/MIN 43 ML/MIN Uric Acid 3.1 MG/DL Total Protein 6.1 GM/DL Albumin 1.9 GM/DL Phosphorus Level 4.0 MG/DL Alkaline Phosphatase 48 U/L Aspartate Amino Transf (AST/SGOT) 37 U/L Alanine Aminotransferase (ALT/SGPT) 20 U/L Total Bilirubin 3.6 MG/DL Total Creatine Kinase 555 U/L Creatine Kinase MB 0.7 NG/ML Creatine Kinase MB % 0.1 % Microbiology Date/Time Source Procedure Growth Status 01/08/17 07:45 Blood Peripheral Aerobic Blood Culture Pending Received 01/08/17 07:45 Blood Peripheral Anaerobic Blood Culture Pending Received 01/07/17 12:00 Blood Peripheral Aerobic Blood Culture - Preliminary NO GROWTH IN 1 DAY Resulted 01/07/17 12:00 Blood Peripheral Anaerobic Blood Culture - Preliminary NO GROWTH IN 1 DAY Resulted 01/07/17 11:00 Blood Peripheral Aerobic Blood Culture - Preliminary NO GROWTH IN 1 DAY Resulted 01/07/17 11:00 Blood Peripheral Anaerobic Blood Culture - Preliminary NO GROWTH IN 1 DAY Resulted 01/05/17 15:14 Blood Peripheral Aerobic Blood Culture - Final S. Aureus Mrsa Resulted 01/05/17 15:14 Blood Peripheral Anaerobic Blood Culture - Preliminary NO GROWTH IN 2 DAYS Resulted 01/05/17 16:52 Catheter Tip Subclavian Wound Culture - Final S. Aureus Mrsa Complete Imaging Abdomen X-Ray 01/06/17 0000 Signed Impressions: Service Date/Time: Friday, January 06, 2017 08:29 - CONCLUSION: No dilated loops of small or large bowel.. Dion Alford MD Chest X-Ray 01/05/17 1021 Signed Impressions: Service Date/Time: Thursday, January 05, 2017 10:34 - CONCLUSION: 1. Minimal bibasilar airspace disease, likely atelectasis. 2. Otherwise, no acute abnormality or significant interval change. Armando Martínez MD Neck CT 01/05/17 0000 Signed Impressions: Service Date/Time: Thursday, January 05, 2017 11:54 - CONCLUSION: Negative CT soft tissue neck with contrast. Dion Alford MD Head CT 01/05/17 0000 Signed Impressions: Service Date/Time: Thursday, January 05, 2017 11:54 - CONCLUSION: Negative noncontrast CT Wander Hodges MD Last Impressions Chest X-Ray 01/03/17 0000 Signed Impressions: Service Date/Time: Tuesday, January 03, 2017 22:02 - CONCLUSION: 1. [id number] in superior vena cava. No consolidation or significant effusion. Hao Lea MD Physical Exam GENERAL: Opens eyes when stimulated, looks dyspneic, sats good SKIN: Warm and very dry skin. Poor turgor HEAD: Atraumatic. Normocephalic. No temporal wasting, or tenderness. EYES: [place] conjunctiva. No petechia or hemorrhage. Pupils equal, round and reactive to light. Extraocular movements full and intact. No scleral icterus. No injection or drainage. EARS, NOSE AND THROAT: Nose without bleeding or purulent nasal discharge. He is edentulous, with some oral thrush, dry oral mucosa. No oral lesions NECK: Trachea midline. Supple and not tender, no meningeal sign. No nuchal rigidity CARDIOVASCULAR: Regular rate and rhythm. No murmurs, rubs or gallops heard RESPIRATORY: Scattered wheezing. Intact dressing over previous port site ABDOMEN: Soft, non-tender, nondistended. Bowel sounds present and normoactive. No guarding. No rebound. No organomegaly. Some ecchymoses on L side of abdomen EXTREMITIES: No clubbing, cyanosis, or edema. No joint effusion, has good ROM. No calf tenderness. Well perfused and warm. NEUROLOGICAL: Non-focal. PSYCHIATRIC: Still lethargic LINE: No evidence of infection Assessment & Plan Remarks IMPRESSION MRSA sepsis, high grade - port removed 01/05 - BC (+) 01/02-01/05 - echo not good study Fevers, patient with ALL, receiving consolidation chemotherapy - due to sepsis - temps low grade Lethargic and SOB, due to sepsis ALL, on consolidation chemo Neutropenia Renal insufficiency, worse Skin rash Oral thrush Neck pain, ?musculoskeletal RECOMMENDATION Continue Cubicin for MRSA (Vanco JENIFER 2.0, and BC still positive) - follow CPK while on Cubicin Repeat BC If BC negative, would consider switching back to vancomycin Ideally JOSETTE, but high risk and hold off for now He will be treated with 6 weeks IV Abx due to high grade bacteremia (from last ( +) BC or date of removal of port Hopefully BC negative after port removed Continue other empiric Abx: Cefepime, Diflucan, until neutropenia resolves Monitor temps Monitor counts Neutropenic precautions Monitor progress D/W RN Dr Edson Russo covering for [place] 01/09 Dr Hewitt covering the weekend Deonna Ansari MD Jan 08, 2017 11:24
[2017-01-08] MEDS ORDERED: ALBUMIN 5% INJ 500 ML IV ONE (14:00)
[2017-01-08] MEDS ORDERED: SODIUM CHLOR 0.45% 1000 ML INJ 1,000 ML IV ONE (14:00)
[2017-01-08] MEDS ORDERED: FUROSEMIDE 20 MG/2 ML VIAL IV PUSH ONE (14:00)
[2017-01-08] MEDS ORDERED: POTASSIUM CHLORIDE 10 MEQ CONTROLLED RELEASE TAB PO ONE (14:00)
[2017-01-08] MEDS: FILGRASTIM 480 MCG/1.6 ML VIAL SQ SCH (15:03)
[2017-01-08] MEDS: DAPTOmycin INJ 700 MG in SODIUM CHLORIDE 0.9% INJ 100 ML IV SCH (15:04)
[2017-01-08] MEDS: POTASSIUM CHLOR 10 MEQ PREMIX 100 ML IV SCH ×2 (18:04→22:19)
[2017-01-09] VITALS (20 sets, daily range): BP systolic 82–172; BP diastolic 43–74; PULSE 77–114; RESP 16–49; TEMP 98–99.1; O2SAT 89–100
[2017-01-09] MEDS: MORPHINE SULFATE 4 MG/ML INJ IV PUSH PRN (01:00)
[2017-01-09] MEDS: POTASSIUM CHLOR 10 MEQ PREMIX 100 ML IV SCH (01:56)
[2017-01-09] MEDS: SODIUM CHLOR 0.45% 1000 ML INJ 1,000 ML IV SCH ×3 (03:13→23:48)
[2017-01-09] MEDS: CHLORHEXIDINE GLUCONATE 2 % 1 PACK (2 CLOTHS)(taper/protocol) TOPICAL SCH (03:13)
[2017-01-09] MEDS: LEVOTHYROXINE SODIUM 25 MCG TAB PO SCH (06:03)
[2017-01-09] MEDS: CEFEPIME INJ 2,000 MG in SODIUM CHLORIDE 0.9% INJ 100 ML IV SCH ×3 (06:04→20:47)
[2017-01-09 06:58] LABS: MEAN CELL VOLUME 93.1 FL (80.0-100.0); MEAN CORPUSCULAR HGB CONC 34.4 % (32.0-36.0); RED BLOOD COUNT 2.17 MIL/MM3 (4.50-5.90); RED CELL DISTRIBUTION WIDTH 21.2 % (11.6-17.2); WHITE BLOOD COUNT 0.2 TH/MM3 (4.0-11.0)
[2017-01-09] MEDS: DILTIAZEM INJ 125 MG in SODIUM CHLORIDE 0.9% INJ 100 ML IV PRN (07:07)
[2017-01-09 07:10] LABS: HEMO FLAGS AUTO DIFF
[2017-01-09 07:12] LABS: HEMATOCRIT 20.2 % (39.0-51.0); PLATELET COUNT 3 TH/MM3 (150-450)
[2017-01-09 07:27] LABS: BICARBONATE 20.5 MEQ/L (21.0-32.0); INDIRECT BILIRUBIN 1.2 MG/DL (0.0-0.8); MAGNESIUM 2.3 MG/DL (1.5-2.5); POTASSIUM 3.6 MEQ/L (3.5-5.1); TOTAL BILIRUBIN ADULT 4.9 MG/DL (0.2-1.0)
[2017-01-09] MEDS: INSULIN NovoLIN REGULAR SUPPLEMENTAL SCALE SQ SCH ×4 (08:00→21:00)
[2017-01-09] MEDS ORDERED: diphenhydrAMINE HCL 25 MG CAP PO PRN (08:00)
[2017-01-09] MEDS ORDERED: SODIUM CHLOR 0.9% 250 ML INJ 250 ML IV ONE (08:00)
[2017-01-09] MEDS ORDERED: ACETAMINOPHEN 325 MG TAB PO PRN (08:00)
[2017-01-09] MEDS: ALLOPURINOL 100 MG TAB PO SCH (09:00)
[2017-01-09] MEDS: HYDROCORTISONE 1% OINT 30 GM TUBE TOPICAL SCH ×2 (09:00→21:12)
[2017-01-09] MEDS: METOPROLOL TARTRATE 25 MG TAB PO SCH ×2 (09:00→20:47)
[2017-01-09] MEDS: INSULIN DETEMIR 100 UNITS/ML VIAL SQ SCH ×2 (09:00→20:47)
[2017-01-09] MEDS: CALCIUM/VITAMIN D 250 MG/125 U TAB PO SCH ×2 (09:00→20:48)
[2017-01-09] MEDS: FLUCONAZOLE 200 MG TAB PO SCH (09:00)
[2017-01-09] MEDS: PANTOPRAZOLE SOD 40 MG DELAYED RELEASE TAB PO SCH (09:00)
[2017-01-09] MEDS: DILTIAZEM-CD 240 MG CAP ER PO SCH (09:00)
[2017-01-09] MEDS: LACTOBACILLUS ACIDOPHILUS TAB PO SCH ×3 (09:00→15:12)
[2017-01-09] MEDS: DOCUSATE SODIUM 50 MG/SENNA 8.6 MG TAB PO SCH ×2 (09:00→20:48)
[2017-01-09] MEDS: SODIUM CHLORIDE 0.9% FLUSH 10 ML FLUSH IV FLUSH SCH ×2 (09:00→20:47)
[2017-01-09] MEDS: predniSONE 20 MG TAB PO SCH (09:00)
[2017-01-09] MEDS: MEGESTROL ACETATE SUSP 400 MG/10 ML CUP PO SCH (09:00)
--- NOTE | 2017-01-09 09:12 | PD.ONC.PN ---
Subjective Subjective Remarks Patient seen and examined, vital signs, labs, medications, microbiology and email production consultant note she reviewed. Patient's son is at bedside. Subjectively the patient reports having difficulty breathing. Over the past 24 hours his oxygen requirements have increased from 2 L via nasal cannula 2 requiring a facemask with oxygen delivery at 8 L/m. His oxygen saturation is down to between 85 and 90% with oxygen supplementation. Remains tachycardic. He reports pain which is diffusely present. Oral intake is close to nil. Platelet count noted to be 3000 today, hemoglobin 6.3 g/dL. Objective Data Date Time Temp Pulse Resp B/P (MAP) Pulse Ox O2 Delivery O2 Flow Rate FiO2 01/09/17 08:18 99.1 102 47 89 01/09/17 08:16 92 Simple Mask 8.00 01/09/17 07:07 97 142/63 01/09/17 06:00 94 01/09/17 04:00 98.0 87 16 108/74 (85) 94 01/09/17 04:00 87 01/09/17 02:00 83 01/09/17 00:00 98.5 81 18 172/69 (103) 99 01/09/17 00:00 81 01/08/17 22:00 100 01/08/17 20:00 105 01/08/17 19:38 100 Nasal Cannula 2.00 01/08/17 19:00 Nasal Cannula 3.00 01/08/17 18:00 105 01/08/17 16:00 97 01/08/17 16:00 99.8 100 24 125/69 (87) 92 01/08/17 14:00 92 01/08/17 12:00 100.0 86 22 114/57 (76) 95 01/08/17 12:00 86 01/08/17 10:00 92 01/09/17 01/09/17 01/09/17 07:00 15:00 23:00 Intake Total 320 ml 20 ml Output Total 1000 ml Balance -680 ml 20 ml Result Diagram: 01/09/1762101/09/17621 Laboratory Results Laboratory Tests Test 01/09/17 06:22 White Blood Count 0.2 TH/MM3 Red Blood Count 2.17 MIL/MM3 Hemoglobin 6.9 GM/DL Hematocrit 20.2 % Mean Corpuscular Volume 93.1 FL Mean Corpuscular Hemoglobin 32.0 PG Mean Corpuscular Hemoglobin Concent 34.4 % Red Cell Distribution Width 21.2 % Platelet Count 3 TH/MM3 Mean Platelet Volume 9.9 FL CBC Comment AUTO DIFF Blood Urea Nitrogen 59 MG/DL Creatinine 1.46 MG/DL Random Glucose 162 MG/DL Total Protein 5.9 GM/DL Albumin 2.1 GM/DL Calcium Level 8.2 MG/DL Phosphorus Level 2.3 MG/DL Magnesium Level 2.3 MG/DL Alkaline Phosphatase 61 U/L Aspartate Amino Transf (AST/SGOT) 71 U/L Alanine Aminotransferase (ALT/SGPT) 49 U/L Total Bilirubin 4.9 MG/DL Direct Bilirubin 3.7 MG/DL Sodium Level 144 MEQ/L Potassium Level 3.6 MEQ/L Chloride Level 113 MEQ/L Carbon Dioxide Level 20.5 MEQ/L Anion Gap 11 MEQ/L Estimat Glomerular Filtration Rate 48 ML/MIN Indirect Bilirubin 1.2 MG/DL Total Creatine Kinase 129 U/L Culture Results Microbiology Date/Time Source Procedure Growth Status 01/08/17 07:45 Blood Peripheral Aerobic Blood Culture Pending Received 01/08/17 07:45 Blood Peripheral Anaerobic Blood Culture Pending Received 01/07/17 12:00 Blood Peripheral Aerobic Blood Culture - Preliminary Gram Positive Cocci Resulted 01/07/17 12:00 Anaerobic Blood Culture - Preliminary Gram Positive Cocci Resulted 01/07/17 11:00 Blood Peripheral Aerobic Blood Culture - Preliminary NO GROWTH IN 1 DAY Resulted 01/07/17 11:00 Blood Peripheral Anaerobic Blood Culture - Preliminary NO GROWTH IN 1 DAY Resulted Administered Medications Medications (Trade) Dose Ordered Sig/Daniel Route PRN Reason Start Time Stop Time Status Last Admin Dose Admin Prednisone (Deltasone) 20 mg DAILY PO 12/29/16 09:00 01/08/17 09:06 Pantoprazole Sodium (Protonix) 40 mg DAILY PO 12/29/16 09:00 01/08/17 09:06 Allopurinol (Zyloprim) 200 mg DAILY PO 12/30/16 09:00 01/08/17 09:09 Calcium/Vitamin D (Oscal-D 250-125) 500 mg Q12HR PO 12/29/16 21:00 01/08/17 20:29 Diltiazem HCl (Cardizem Cd) 240 mg DAILY PO 12/30/16 09:00 Future hold 01/08/17 09:06 Diphenhydramine HCl (Benadryl) 25 mg Q4H PRN PO SEE LABEL COMMENTS 12/29/16 11:00 12/31/16 17:49 Lactobacillus Acidophilus (Lactinex) 1 tab TID PO 12/29/16 13:00 01/08/17 18:03 Megestrol Acetate (Megace Liq) 400 mg DAILY PO 12/30/16 09:00 01/08/17 09:07 Metoprolol Tartrate (Lopressor) 25 mg Q12HR PO 12/29/16 21:00 01/08/17 20:29 Hydrocortisone (Nutracort 1% Oint) 1 applic BID TOPICAL 12/29/16 13:00 01/08/17 20:32 Sodium Chloride (NS Flush) 2 ml UNSCH PRN IV FLUSH FLUSH AFTER USING IV ACCESS 12/29/16 12:00 01/04/17 21:08 Sodium Chloride (NS Flush) 2 ml BID IV FLUSH 12/29/16 21:00 01/08/17 20:26 Acetaminophen (Tylenol) 650 mg Q4H PRN PO TEMP > 100.4 12/29/16 11:30 01/03/17 00:11 Oxycodone/ Acetaminophen (Percocet 10-325 Mg) 1 tab Q6H PRN PO PAIN SCALE 6 TO 10 12/29/16 11:30 01/08/17 03:19 Morphine Sulfate (Morphine Inj) 2 mg Q3H PRN IV PUSH Pain 3-5; if unable to take PO 12/29/16 11:30 01/07/17 18:18 Morphine Sulfate (Morphine Inj) 4 mg Q3H PRN IV PUSH Pain 6-10;if unable to take PO 12/29/16 11:30 01/09/17 01:00 Senna/Docusate Sodium (Cindy-Colace) 1 tab BID PO 12/29/16 21:00 01/08/17 20:29 Levothyroxine Sodium (Synthroid) 25 mcg DAILY@0600 PO 12/31/16 06:00 01/09/17 06:03 Insulin Human Regular (NovoLIN R SUPPLEMENTAL SCALE) 1 ACHS SLIDING SCALE SQ 01/01/17 21:00 01/08/17 20:54 Insulin Detemir (Levemir Inj) 5 units Q12HR SQ 01/02/17 09:00 01/08/17 20:29 Cefepime HCl 2000 mg/Sodium Chloride 100 ml @ 200 mls/hr Q8HR IV 01/03/17 14:00 01/09/17 06:04 Fluconazole (Diflucan) 200 mg DAILY PO 01/03/17 11:00 01/08/17 09:07 Filgrastim (Neupogen Inj) 480 mcg DAILY@14 SQ 01/03/17 14:00 01/08/17 15:03 Metoprolol Tartrate (Lopressor Inj) 5 mg Q6H PRN IV PUSH RAPID HEART RATE 01/05/17 10:45 01/08/17 03:19 Miscellaneous Information Patient in critical care unit? Ass... Q361D .XX 01/05/17 22:30 01/05/17 22:30 Chlorhexidine Gluconate (Chlorhexidine 2% Cloth) 3 pack DAILY@04 TOPICAL 01/06/17 04:00 01/10/17 04:01 01/09/17 03:13 Diltiazem HCl 125 mg/Sodium Chloride 125 ml @ 5 mls/hr TITRATE PRN IV Tachycardia 01/06/17 13:30 01/09/17 07:07 Daptomycin 700 mg/ Sodium Chloride 100 ml @ 200 mls/hr Q24H IV 01/06/17 16:00 01/08/17 15:04 Sodium Chloride 1,000 ml @ 84 mls/hr [id number] IV 01/07/17 13:00 01/09/17 03:13 Acetaminophen (Tylenol) 650 mg Q4H PRN PO SEE LABEL COMMENTS 01/09/17 08:00 01/09/17 08:20 Diphenhydramine HCl (Benadryl) 25 mg Q4H PRN PO SEE LABEL COMMENTS 01/09/17 08:00 01/09/17 08:20 Objective Remarks GENERAL PHYSICAL APPEARANCE: Mr. Chou is an elderly male. He is laying in bed, he appears to be more comfortable today he appears very weak but does acknowledge my presence and is able to speak to 3 words at a time. HEENT: Had is atraumatic, normocephalic. Conjunctivae are pale, sclerae are anicteric. EOMI. PERRLA. Oral exam - no pharyngeal erythema. NECK EXAM: No palpable cervical or supraclavicular lymphadenopathy. RESPIRATORY EXAM: Poor inspiratory effort, decreased bibasilar breath sounds. CARDIOVASCULAR EXAM:irregular, S1 and S2, tachycardia improved. ABDOMINAL EXAM: Obese belly, he reports tenderness to light palpation, there appears to be increased tympany to percussion. Positive bowel sounds. LOWER EXTREMITIES: Bilateral pretibial edema. No calf tenderness. BILL BOARD POSTER: No focal sensory or motor deficits. SKIN EXTREMITIES: He has an exfoliative rash noted over his arms and neck. Chest: Interval removal of left-sided infusion port. Assessment/Plan Assessment Mr. 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 His disease is associated with very complex cytogenetics and unfortunately this predicts a poor outcome and high rates of relapse despite appropriate and aggressive treatment. He is status post induction remission therapy with Hyper-CVAD with Rituxan and intrathecal chemotherapy which was delivered in mid-October of 2016. 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 Plan 1. Initiated on chemotherapy of hyper-CVAD arm B from 12/30/2016 through 2016. He is now cytopenic secondary to myelosuppression from chemotherapy. He will remain on Neupogen 480 g subcutaneous daily for neutropenia. 2. Kidney function stable, BMP ordered this morning. Replace electrolytes as needed. 3. MRSA bacteremia; on daptomycin. His infusion port was removed on 2016. Repeat blood cultures dated 01/07/2017 also positive for gram-positive cocci. 4. Progressive respiratory distress with increasing oxygen requirements: He may require intubation, case was discussed with clarification operator. I spoke to the patient in the presence of his son, patient's nurse and the patient's granddaughters . The patient indicates intubation would be agreeable to him, he declines cardiac resuscitation. The patient has designated to me that Mr. Mihai Pastor (Patient's Brother in Law) will be his health care surrogate in the event that the patient himself is unable to take or verbalize his wishes. Consult palliative care. Sukhwinder Rice MD Jan 09, 2017 09:12
--- NOTE | 2017-01-09 09:51 | RADRPT ---
EXAM DATE/TIME: 01/09/2017 09:21 [facility] COMPARISON: CHEST SINGLE AP, January 05, 2017, 10:34. INDICATIONS : Shortness of breath. MEDICAL HISTORY : Hypertension. Leukemia. Cardiovascular disease. SURGICAL HISTORY : Appendectomy. Port placement. ENCOUNTER: Initial ACUITY: 1 day PAIN SCORE: Non-responsive. LOCATION: Bilateral chest FINDINGS: Interval removal of left subclavian [id number]. Stable bilateral lower lobe airspace disease with interval development of patchy airspace opacities in the right lower lung zone. Cardiomediastinal con tours are stable. Remainder of exam is unchanged. CONCLUSION: 1. Interval development of patchy airspace disease in the left lower lobe concerning for aspiration o r pneumonia. Armando Martínez MD on January 09, 2017 at 9:47 Board Certified Radiologist. This report was verified electronically.
[2017-01-09 10:03] LABS: BANDS 8 % (0-6); POLYS (SEG NEUTROPHILS) 4 % (16-70); WBC DIFF SAMPLE 25
[2017-01-09 10:08] LABS: DOHLE BODIES PRESENT (NONE SEEN); PLATELET ESTIMATE SMEAR RARE (NORMAL); PLATELET MORPHOLOGY NORMAL (NORMAL); SCAN/DIFF FINAL DIFF MANUAL
--- NOTE | 2017-01-09 11:29 | PD.CONS ---
Consult Service Palliative Care Consult Requested By Sukhwinder Rice MD . Primary Care Physician Hallie Norris M.D. Reason for Consultation a. To assist with evaluation and management of symptoms including: dyspnea, pain, and debility b. To assist medical decision maker(s) with: better understanding of current medical conditions; weighing benefits/burdens of medical treatment options; making medical treatment decisions. HPI History of Present Illness This 71 year old patient presented to the hospital on 12/29/16 for a readmission for chemotherapy. 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 The patient presented to the ED at [facility] in [facility] as instructed by his PCP on 10/20/16 for shortness of breath, he was found to have thrombocytopenia, emphysema, and RLL pneumonia. The patient was not satisfied with his care at that facility and was subsequently transferred to [facility] on 10/24/16 under the care of his oncologist Dr. Rice. During that hospitalization the patient the patient developed a PE, sever anemia, thrombocytopenia, pancytopenia, FAIZA requiring urgent dialysis, afib with RVR, and a severe rash skin biopsy revealed vacuolar interface dermatitis. The patient was discharge home on 11/30/16, he no longer required dialysis at this time and was to follow up with oncology as an outpatient. * Initial admission workup for this acute hospitalization included: Vital signs : T:97.6, HR:76, RR:20, BP:148/80, SPO2:100%. Significant laboratory data included: WBC:11.2, Hb.0, Hct:23.4, Plt Count:201K, BUN:21, Creatinine:0.97, eGFR:77, Total protein:6.3, Albumin:3.3, TSH:5.960. Patient was admitted for initiation of cycle #1 hyper-CVAD Arm-B, with high dose methotrexate, followed by cytarbine. * 12/30/16: Post chemotherapy infusion, Hb.0, Hct:20.7, Plt Count:175K, transfused 1 unit PRBCs in between chemotherapy treatment. * 12/31/16: Patient with persistent anemia. WBC:17.5, Hb.7, Hct:19.4, BUN:26 , Plt Count:162K, Creatinine:1.26. Transfused 2 units PRBCs. * 01/03/17: ID consulted to evaluate patient for fevers, tmax 103, blood culture positive for MRSA, patient with oral thrush. Ordered repeat BC, UZ, follow C/S, continuation of vancomycin, cefepime, Diflucan. Worsening renal function BUN:35, Creatinine:1.54. * 01/05/17: Critical care consulted for tachypnea, respiratory distress, patient 's ABG with severe metabolic acidosis, patient admitted to ICU. Surgery consulted for emergent port-a-cath removal due to suspected source MRSA bacteremia. Patient also experiencing chemotherapy associated myelosuppression, WBC 1.0, Neupogen 480mcg sq daily initiated, Hb.9. Hct:26.1, Plt count:18K. Chest CXR: Minimal bibasilar airspace disease, likely atelectasis. * 01/06/17: General surgery, Dr. Shannon removed [id number]. Patient experiencing ongoing complicated hospital course, now with atrial fibrillation with RVR, hypotensive, respiratory distress, and neutropenic sepsis. WBC:0.2, Neutrophils:0.2, Hb.1, Hct:23.9, Plt count:10K. * 01/07/17: Dr. Riec notified the patient's family regarding his decline and critical condition, he also advised that the patient's children come to visit from out of state. Persistent pancytopenia: WBC:0.1, Neutrophils:0.0, Hb:7.4, Hct:21.4, Plt count:12K, BUN:31, Creatinine:1.17. * 01/08/17: Patient remained in ICU with increasing lethargy and respiratory distress. Persistent pancytopenia, WBC:0.8, Neutrophils:0.0, Hb.4, Hct:21.7, Plt count:10K. * 01/09/17: Patient intubated for respiratory failure, still with ongoing neutropenic sepsis. Palliative care consulted by Dr. Rice for goals of care. Patient seen and examined, chart reviewed, as well as associated laboratory data and available imaging. Patient is intubated, mechanically ventilated and sedated. Ventilator settings: AC/Rate16/TV500/SoG8025%/PEEP5. Palliative care was consulted to discuss with the patient goals of care, the benefits/burdens of her current illnesses, and options regarding future care. Function/Cognitive Trajectory Prior to his diagnosis of ALL the patient was completely independent of all of his ADLs, he walked three to four miles at a time and was very active. Following his acute hospitalization in October of this year the patient has experienced a marked decline in his functional status, although he was discharge home from that hospitalization in November he required the assistance of family members to complete his ADL. . Review of Systems ROS Limitations: Clinical Condition, Intubated (ROS obtained from EMR and reported from patient's family) Constitutional: COMPLAINS OF: Fatigue, Change in appetite, Generalized weakness Respiratory: COMPLAINS OF: Shortness of breath, DENIES: Cough Cardiovascular: COMPLAINS OF: Lower Extremity Edema, DENIES: Chest pain Musculoskeletal: COMPLAINS OF: Stiffness Integumentary: COMPLAINS OF: Abnormal pigmentation, Rash, Excessive dryness Neurologic: COMPLAINS OF: Poor Balance Past Family Social History Coded Allergies: No Known Allergies (Unverified , 10/24/16) Past Medical History 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 Reported Medications Reported Meds & Active Scripts Active Protonix (Pantoprazole Sodium) 20 Mg Tab 20 Mg PO DAILY Prednisone 5 Mg Tab 5 Mg PO DAILY 30 mg po daily for three days then 20 mg po daily for three days then 10 mg po daily for three days then 5 mg po daily for three days then stop. Cardizem CD 24 HR (Diltiazem CD 24 HR) 240 Mg Caper 240 Mg PO DAILY 30 Days Acidophilus/l-Sporogenes (Lactobacillus Acidophilus) 35 Million Cell-25 Million Cell Tab 1 Tab PO TID Sucralfate Liq (Sucralfate) 1 Gram/10 Ml Maki 1 Gm PO ACHS Oyster Shell 250 mg + Vit D Tb (Calcium/Vitamin D) 250 Mg Calcium (625 Mg)-125 Unit Tablet 500 Mg PO Q12HR Oxycodone-Acetaminophen 5-325 mg Tab 1 Tab PO Q3H PRN Metoprolol Tartrate 25 Mg Tab 25 Mg PO Q12HR Megestrol Liq (Megestrol Acetate) 40 Mg/Ml Susp 400 Mg PO DAILY MDD 400 Benadryl Allergy (Diphenhydramine HCl) 25 Mg Cap 25 Mg PO Q4H PRN Adjustable Commode 3-in-1 (Device) 1 Mis Mis Ea .ROUTE DIRECTED Bedside Commode (Device) 1 Mis Mis Ea .ROUTE DIRECTED Walker Rolling/GetGo (Device) 1 Mis Mis Ea .ROUTE DIRECTED Zyloprim (Allopurinol) 100 Mg Tab 200 Mg PO DAILY Gnp Hydrocortisone Maximu (Hydrocortisone (Topical)) 1 % Oin 1 Applic TOPICAL BID 10 Days Reported Prednisone 20 Mg Tab 40 Mg PO DAILY Take 40 mg (2 tablets) daily for 5 days Current Medications Medications (Trade) Dose Ordered Sig/Daniel Route Start Time Stop Time Status Last Admin (Reglan Inj) 5 mg Q6H PRN IV PUSH 12/29/16 08:00 (Deltasone) 20 mg DAILY PO 12/29/16 09:00 01/08/17 09:06 (Protonix) 40 mg DAILY PO 12/29/16 09:00 01/08/17 09:06 (Zyloprim) 200 mg DAILY PO 12/30/16 09:00 01/08/17 09:09 (Oscal-D 250-125) 500 mg Q12HR PO 12/29/16 21:00 01/08/17 20:29 (Cardizem Cd) 240 mg DAILY PO 12/30/16 09:00 Future hold 01/08/17 09:06 (Benadryl) 25 mg Q4H PRN PO 12/29/16 11:00 12/31/16 17:49 (Lactinex) 1 tab TID PO 12/29/16 13:00 01/08/17 18:03 (Megace Liq) 400 mg DAILY PO 12/30/16 09:00 01/08/17 09:07 (Lopressor) 25 mg Q12HR PO 12/29/16 21:00 01/08/17 20:29 (Nutracort 1% Oint) 1 applic BID TOPICAL 12/29/16 13:00 01/08/17 20:32 (NS Flush) 2 ml UNSCH PRN IV FLUSH 12/29/16 12:00 01/04/17 21:08 (NS Flush) 2 ml BID IV FLUSH 12/29/16 21:00 01/09/17 09:00 (Tylenol) 650 mg Q4H PRN PO 12/29/16 11:30 01/03/17 00:11 (Zofran Inj) 4 mg Q6H PRN IVP 12/29/16 11:30 (Compazine Supp) 25 mg Q12H PRN RECTAL 12/29/16 11:30 (Tylenol) 650 mg Q6H PRN PO 12/29/16 11:30 (Percocet 5-325 Mg) 1 tab Q6H PRN PO 12/29/16 11:30 (Percocet 10-325 Mg) 1 tab Q6H PRN PO 12/29/16 11:30 01/08/17 03:19 (Morphine Inj) 2 mg Q3H PRN IV PUSH 12/29/16 11:30 01/07/17 18:18 (Morphine Inj) 4 mg Q3H PRN IV PUSH 12/29/16 11:30 01/09/17 01:00 (Narcan Inj) 0.4 mg UNSCH PRN IV PUSH 12/29/16 11:45 (Cindy-Colace) 1 tab BID PO 12/29/16 21:00 01/08/17 20:29 (Milk Of Magnesia Liq) 30 ml Q12H PRN PO 12/29/16 11:45 (Senokot) 17.2 mg Q12H PRN PO 12/29/16 11:45 (Dulcolax Supp) 10 mg DAILY PRN RECTAL 12/29/16 11:45 (Lactulose Liq) 30 ml DAILY PRN PO 12/29/16 11:45 (Synthroid) 25 mcg DAILY@0600 PO 12/31/16 06:00 01/09/17 06:03 (NovoLIN R SUPPLEMENTAL SCALE) 1 ACHS SLIDING SCALE SQ 01/01/17 21:00 01/08/17 20:54 (Levemir Inj) 5 units Q12HR SQ 01/02/17 09:00 01/08/17 20:29 Cefepime HCl 2000 mg/Sodium Chloride 100 ml @ 200 mls/hr Q8HR IV 01/03/17 14:00 01/09/17 06:04 (Diflucan) 200 mg DAILY PO 01/03/17 11:00 01/08/17 09:07 (Neupogen Inj) 480 mcg DAILY@14 SQ 01/03/17 14:00 01/08/17 15:03 (Lopressor Inj) 5 mg Q6H PRN IV PUSH 01/05/17 10:45 01/08/17 03:19 Miscellaneous Information Patient in critical care unit? Ass... Q361D .XX 01/05/17 22:30 01/05/17 22:30 (Chlorhexidine 2% Cloth) 3 pack DAILY@04 TOPICAL 01/06/17 04:00 01/10/17 04:01 01/09/17 03:13 (Chlorhexidine 2% Cloth) 3 pack UNSCH PRN TOPICAL 01/05/17 22:30 01/10/17 22:27 Diltiazem HCl 125 mg/Sodium Chloride 125 ml @ 5 mls/hr TITRATE PRN IV 01/06/17 13:30 01/09/17 07:07 Daptomycin 700 mg/ Sodium Chloride 100 ml @ 200 mls/hr Q24H IV 01/06/17 16:00 01/08/17 15:04 Sodium Chloride 1,000 ml @ 84 mls/hr [id number] IV 01/07/17 13:00 01/09/17 03:13 Sodium Chloride 250 ml @ 15 mls/hr ONCE ONCE IV 01/09/17 08:00 01/10/17 00:39 01/09/17 08:00 (Tylenol) 650 mg Q4H PRN PO 01/09/17 08:00 01/09/17 08:20 (Benadryl) 25 mg Q4H PRN PO 01/09/17 08:00 01/09/17 08:20 Family History Mother and father from coronary artery disease. Sister had breast cancer, . . Substance Use Tobacco: Former smoker, quit 40 years ago. Alcohol: Prescription med abuse: None reported. Illicits: None reported. Psychosocial History Patient is originally from [place], [place], he is , he lost his approximately four years ago to metastatic ovarian cancer. The patient has three children who all still live in [place]. Patient lives alone, he is supported by his [id number]-[id number] and wahica-mf-eri locally. The patient served in the [employer] followed by working fro [employer] in [employer] and then for the [employer] for 28 years. Spiritual/Cultural Factors Protestant. . Living Will: Never completed Health Care Surrogate: Never completed Durable Power of Patient Relations Manager: Never completed Health Care Surrogate(s): During visit with Dr. Rice patient stated he would like to designate his brother in law Mihai Prieto as his HCS in the event he was unable to make decisions on his own, however a HCS document was not completed at this time. Per [place] statutes in the absence of written advance directives health care decision making would fall to the patient's three adult sons. All of the patient 's sons opted out of decision making and deferred health care decision making to their uncle Mihai Prieto as they also witnessed the conversation in which their father verbally designated him as his HCS. This was also confirmed with the patient's only living sibling, Ishaan Chou, who would be the next of kin and next in line to serve as a HCP per [place] statutes, Ishaan also opted out of decision making and confirmed to follow the patient's verbalized wishes for Mihai Addison to serve as HCP. Ethical and Legal Issues None known. . Physical Exam Vital Signs Date Time Temp Pulse Resp B/P (MAP) Pulse Ox O2 Delivery O2 Flow Rate FiO2 01/09/17 09:52 99.1 110 49 139/57 91 01/09/17 08:18 99.1 102 47 89 01/09/17 08:16 92 Simple Mask 8.00 01/09/17 07:07 97 142/63 01/09/17 06:00 94 01/09/17 04:00 98.0 87 16 108/74 (85) 94 01/09/17 04:00 87 01/09/17 02:00 83 01/09/17 00:00 98.5 81 18 172/69 (103) 99 01/09/17 00:00 81 01/08/17 22:00 100 01/08/17 20:00 105 01/08/17 19:38 100 Nasal Cannula 2.00 01/08/17 19:00 Nasal Cannula 3.00 01/08/17 18:00 105 01/08/17 16:00 97 01/08/17 16:00 99.8 100 24 125/69 (87) 92 01/08/17 14:00 92 01/08/17 12:00 100.0 86 22 114/57 (76) 95 01/08/17 12:00 86 01/09/17 01/10/17 19:00 07:00 Intake Total 40 ml Balance 40 ml Blood Product IV Normal Saline Flush 40 ml Exam CONSTITUTIONAL/GENERAL: This is a frail elderly patient, intubated, mechanically ventilated and sedated. TUBES/LINES/DRAINS: ETT. OGT, PIV x 3, álvarez catheter SKIN: Ecchymoses on upper extremities. No wounds seen anteriorly. Skin temperature appropriate. Not diaphoretic. HEAD: Atraumatic. Normocephalic. EYES: Pupils equal and round and reactive. No scleral icterus. No injection or drainage. Fundi not examined. ENT: Unable to assess secondary to clinical condition. Nose without bleeding or purulent drainage. NECK: Trachea midline. CARDIOVASCULAR: Irregular rate and rhythm without murmurs, gallops, or rubs. No JVD. Peripheral pulses symmetric. RESPIRATORY/CHEST: Symmetric, mechanically ventilated. Diminished breath sounds bilaterally. GASTROINTESTINAL: Abdomen soft, nondistended. No hepato-splenomegaly, or palpable masses. Bowel sounds present. GENITOURINARY: Without palpable bladder distension. Álvarez catheter in place draining colette urine. MUSCULOSKELETAL: Extremities without clubbing, cyanosis, or edema. No mottling or clubbing. LYMPHATICS: No palpable cervical or supraclavicular adenopathy. NEUROLOGICAL: Sedated. PSYCHIATRIC: Unable to assess secondary to clinical condition. . Diagnostic Tests Laboratory Laboratory Tests Test 01/06/17 14:43 01/06/17 17:56 01/07/17 11:00 01/08/17 07:27 Blood Gas Puncture Site RT RADIAL Blood Gas Patient Temperature 98.6 Blood Gas HCO3 20 mmol/L (22-26) Blood Gas Base Excess -2.3 mmol/L (-2-2) Blood Gas Oxygen Saturation 97 % (90-100) Arterial Blood pH 7.57 (7.380-7.420) Arterial Blood Partial Pressure CO2 21 mmHg (38-42) Arterial Blood Partial Pressure O2 121 mmHG (61-120) Arterial Blood Oxygen Content 9.7 Vol % (12.0-20.0) Arterial Blood Carboxyhemoglobin 1.9 % (0-4) Arterial Blood Methemoglobin 0.6 % (0-2) Blood Gas Hemoglobin 7.0 G/DL (12.0-16.0) Oxygen Delivery Device NASAL CANNULA Blood Gas Liter Flow 2 L/M Prothrombin Time 12.8 SEC (9.8-11.6) Prothromb Time International Ratio 1.2 RATIO Activated Partial Thromboplast Time 38.0 SEC (24.3-30.1) Fibrinogen 783 mg/dL (227-377) White Blood Count 0.1 TH/MM3 (4.0-11.0) 0.8 TH/MM3 (4.0-11.0) Red Blood Count 2.32 MIL/MM3 (4.50-5.90) 2.31 MIL/MM3 (4.50-5.90) Hemoglobin 7.4 GM/DL (13.0-17.0) 7.4 GM/DL (13.0-17.0) Hematocrit 21.4 % (39.0-51.0) 21.7 % (39.0-51.0) Mean Corpuscular Volume 92.4 FL (80.0-100.0) 94.0 FL (80.0-100.0) Mean Corpuscular Hemoglobin 32.1 PG (27.0-34.0) 31.9 PG (27.0-34.0) Mean Corpuscular Hemoglobin Concent 34.7 % (32.0-36.0) 34.0 % (32.0-36.0) Red Cell Distribution Width 20.8 % (11.6-17.2) 21.4 % (11.6-17.2) Platelet Count 12 TH/MM3 (150-450) 10 TH/MM3 (150-450) Mean Platelet Volume 8.2 FL (7.0-11.0) 9.3 FL (7.0-11.0) CBC Comment AUTO DIFF AUTO DIFF Differential Total Cells Counted 15 25 Lymphocytes % 93 % (9-44) 88 % (9-44) Monocytes % 7 % (0-8) 8 % (0-8) Neutrophils # (Manual) 0.0 TH/MM3 (1.8-7.7) 0.0 TH/MM3 (1.8-7.7) Differential Comment FINAL DIFF MANUAL FINAL DIFF MANUAL Platelet Estimate LOW (NORMAL) RARE (NORMAL) Platelet Morphology Comment NORMAL (NORMAL) NORMAL (NORMAL) Ovalocytes 1+ (NORMAL) 1+ (NORMAL) Blood Urea Nitrogen 31 MG/DL (7-18) Creatinine 1.17 MG/DL (0.60-1.30) Random Glucose 227 MG/DL (74-106) Calcium Level 8.8 MG/DL (8.5-10.1) Magnesium Level 2.1 MG/DL (1.5-2.5) Sodium Level 143 MEQ/L (136-145) Potassium Level 2.8 MEQ/L (3.5-5.1) Chloride Level 109 MEQ/L (98-107) Carbon Dioxide Level 24.9 MEQ/L (21.0-32.0) Anion Gap 9 MEQ/L (5-15) Estimat Glomerular Filtration Rate 62 ML/MIN (>89) Uric Acid 3.1 MG/DL (2.6-7.2) Myelocytes 4 % (0-0) Test 01/08/17 07:45 01/09/17 06:22 Blood Urea Nitrogen 52 MG/DL (7-18) 59 MG/DL (7-18) Creatinine 1.61 MG/DL (0.60-1.30) 1.46 MG/DL (0.60-1.30) Random Glucose 138 MG/DL (74-106) 162 MG/DL (74-106) Total Protein 6.1 GM/DL (6.4-8.2) 5.9 GM/DL (6.4-8.2) Albumin 1.9 GM/DL (3.4-5.0) 2.1 GM/DL (3.4-5.0) Calcium Level 8.7 MG/DL (8.5-10.1) 8.2 MG/DL (8.5-10.1) Phosphorus Level 4.0 MG/DL (2.5-4.9) 2.3 MG/DL (2.5-4.9) Magnesium Level 2.6 MG/DL (1.5-2.5) 2.3 MG/DL (1.5-2.5) Alkaline Phosphatase 48 U/L (45-117) 61 U/L (45-117) Aspartate Amino Transf (AST/SGOT) 37 U/L (15-37) 71 U/L (15-37) Alanine Aminotransferase (ALT/SGPT) 20 U/L (12-78) 49 U/L (12-78) Total Bilirubin 3.6 MG/DL (0.2-1.0) 4.9 MG/DL (0.2-1.0) Sodium Level 142 MEQ/L (136-145) 144 MEQ/L (136-145) Potassium Level 3.3 MEQ/L (3.5-5.1) 3.6 MEQ/L (3.5-5.1) Chloride Level 109 MEQ/L (98-107) 113 MEQ/L (98-107) Carbon Dioxide Level 21.4 MEQ/L (21.0-32.0) 20.5 MEQ/L (21.0-32.0) Anion Gap 12 MEQ/L (5-15) 11 MEQ/L (5-15) Estimat Glomerular Filtration Rate 43 ML/MIN (>89) 48 ML/MIN (>89) Total Creatine Kinase 555 U/L (39-308) 129 U/L (39-308) Creatine Kinase MB 0.7 NG/ML (0.5-3.6) Creatine Kinase MB % 0.1 % (0.0-4.0) White Blood Count 0.2 TH/MM3 (4.0-11.0) Red Blood Count 2.17 MIL/MM3 (4.50-5.90) Hemoglobin 6.9 GM/DL (13.0-17.0) Hematocrit 20.2 % (39.0-51.0) Mean Corpuscular Volume 93.1 FL (80.0-100.0) Mean Corpuscular Hemoglobin 32.0 PG (27.0-34.0) Mean Corpuscular Hemoglobin Concent 34.4 % (32.0-36.0) Red Cell Distribution Width 21.2 % (11.6-17.2) Platelet Count 3 TH/MM3 (150-450) Mean Platelet Volume 9.9 FL (7.0-11.0) CBC Comment AUTO DIFF Differential Total Cells Counted 25 Neutrophils % (Manual) 4 % (16-70) Band Neutrophils % 8 % (0-6) Lymphocytes % 52 % (9-44) Monocytes % 36 % (0-8) Neutrophils # (Manual) 0.0 TH/MM3 (1.8-7.7) Differential Comment FINAL DIFF MANUAL Dohle Bodies PRESENT (NONE SEEN) Platelet Estimate RARE (NORMAL) Platelet Morphology Comment NORMAL (NORMAL) Direct Bilirubin 3.7 MG/DL (0.0-0.2) Indirect Bilirubin 1.2 MG/DL (0.0-0.8) Result Diagram: 01/09/17 0622 01/09/17 0622 Microbiology Microbiology Date/Time Source Procedure Growth Status 01/08/17 07:45 Blood Peripheral Aerobic Blood Culture Pending Received 01/08/17 07:45 Blood Peripheral Anaerobic Blood Culture Pending Received 01/07/17 12:00 Blood Peripheral Aerobic Blood Culture - Preliminary Gram Positive Cocci Resulted 01/07/17 12:00 Anaerobic Blood Culture - Preliminary Gram Positive Cocci Resulted 01/07/17 11:00 Blood Peripheral Aerobic Blood Culture - Preliminary NO GROWTH IN 1 DAY Resulted 01/07/17 11:00 Blood Peripheral Anaerobic Blood Culture - Preliminary NO GROWTH IN 1 DAY Resulted Imaging Last 72 hours Impressions Upper Extremity Ultrasound 01/09/17 0000 Signed Impressions: Service Date/Time: Monday, January 09, 2017 12:18 - CONCLUSION: 1. No evidence of deep venous thrombosis left upper stomach. 2. Superficial thrombosis in the cephalic vein. Dion Alford MD Chest X-Ray 01/09/17 0000 Signed Impressions: Service Date/Time: Monday, January 09, 2017 11:47 - CONCLUSION: 1. Interval intubation. 2. Mild hazy opacity remains in both lungs. Wander Hodges MD Chest X-Ray 01/09/17 0000 Signed Impressions: Service Date/Time: Monday, January 09, 2017 09:21 - CONCLUSION: 1. Interval development of patchy airspace disease in the left lower lobe concerning for aspiration or pneumonia. Armando Martínez MD Patient/Family Conference Present at Family Conference: Family meeting in consultation room with patient's son's Dion Chou Jr, Wander Chou and his , also present patient's brother in law Jose E Francisco. Update laurent telephone conference patient's son Doron Chou and patient's brother Ishaan Chou. Family Conference Location: Consult Room Issues Discussed: * Palliative care role, purpose, approach * Additional medical, psychosocial, and spiritual history * Patients general health, functional status, and cognitive changes in the months leading up to the current hospitalization * Patient/family understanding of the current medical problems * Patient/family understanding of prognosis * Patients goals of care as best understood from conversations and/or values * Current medical treatment options and benefits/burdens of those options * Code status * Questions answered to the best of my ability * Palliative care contact information provided Assessment and Plan Disease Oriented Problem List: (1) Acute lymphocytic leukemia (2) MRSA bacteremia (3) Neutropenic sepsis (4) Pancytopenia (5) Atrial fibrillation Symptom Scale: (1) Debility (2) Dyspnea (3) Pain Pertinent Non-Medical Issues Psychosocial: Patient is originally from [place], [place], he is , he lost his approximately four years ago to metastatic ovarian cancer. The patient has three children who all still live in [place]. Patient lives alone, he is supported by his cneibpz-yp-rey and ouyeqj-ub-ubj locally. The patient served in the [employer] followed by working fro [employer] in [employer] and then for the [email or web address] for 28 years. Spiritual: Protestant. Legal: None known. Ethical issues impacting care: None known. Important Contacts Mihai Cassidy (Anthony) (HCP) (Brother in law) [phone] Dion Chou Jr (son) [phone] Wander José Antonio (son) [phone] . Prognosis Patient admitted for inpatient chemotherapy due to poor response from initial treatment that lead to a prolonged acute hospitalization with tumor lysis syndrome and acute renal failure requiring dialysis. This hospital admission patient has experienced marked pancytopenia, is now in neutropenic septic shock , multiorgan failure, and respiratory failure requiring intubation with mechanical ventilation. Overall prognosis is poor. . Code Status: Full Code Plan * CODE STATUS: FULL CODE. HCP Mihai Cassidy with the support of the rest of the patient's family endorse they would like the patient to remain a FULL CODE. Discussed risks, benefits and limitations of CPR. The patient's family collectively stated that if the patient were to suffer a cardiac arrest they would like CPR to be initiated and attempted at least once "to give him a chance ". * HEALTHCARE DECISION-MAKING: Patient is not currently capacitated to make his own decisions. It is unclear if he will gain the capacity to make his own health care decisions independently. Mihai Carrasco (brother in law) [phone] is the patient's HCP. * GOALS OF CARE: Aggressive. Long discussion with patient's HCP and remaining family regarding patient's current clinical status and prognosis. The entire family acknowledges an understanding of the severity of the patient's illness and poor prognosis. Patient's HCP and family collectively stated they would like to allow the patient some time on mechanical ventilation to see if there is any improvement before changing the focus of their goals of care. Further discussion pending clinical course. * SYMPTOMS: * = Dyspnea: Secondary to ALL, pancytopenia, neutropenic sepsis, and debilitated status. Patient now intubated and mechanically ventilated. No recommendations at this time. * =Pain: Likely secondary to patient's overall poor clinical status and multiple medical issues. Patient currently intubated, mechanically ventilated, and sedated. No recommendations at this time. * =Debility: Patient is now intubated, mechanically ventilated, and bedbound. Current clinical status is critical. No recommendations at this time. * Palliative care contact information has been provided to the patient's sons, brother, and HCP. * Palliative care will continue to follow-up with patient for further clarifications of goals of care as her clinical course continue to evolve. . Thank you for the opportunity to participate in the care of Mr. Chou. Attestation To help prompt me to consider important information that might be impacting today's encounter and assessment, information from prior notes written by myself or my colleagues may have been "brought forward" into today's note. My signature on this note, however, is an attestation that I personally performed the exam, history, and/or decision-making noted today, and, unless otherwise indicated, the interactions with patient, family, and staff as well as the review of records all occurred today. I also attest that the listed assessment and stated plan reflect my best clinical judgment today based on the combination of historical information, prior notes, and today's exam/ interactions. When time spent is documented, it refers only to time spent today by the signer, or if indicated, combined time spent today by collaborating physician/nurse practitioner. Celina Mueller Jan 09, 2017 11:28
[2017-01-09] MEDS ORDERED: MIDAZOLAM HCL 5 MG/ML VIAL (1 ML) ONE ×2 (11:32→11:33)
[2017-01-09] MEDS ORDERED: ROCURONIUM INJ 50 MG/5 ML VIAL ONE (11:35)
[2017-01-09] MEDS ORDERED: TERBUTALINE INJ 1 MG/ML AMP SQ PRN (11:45)
[2017-01-09] MEDS ORDERED: PHENYLEPHRINE HCL 10 MG/ML VIAL ONE (11:50)
--- NOTE | 2017-01-09 12:01 | HHI.IDPN ---
Subjective Subjective Remarks ID [id number] for . 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 He received induction chemotherapy at that time, and hospitalization complicated by neutropenic fevers. He also developed a rash and subsequently underwent skin biopsy which revealed vacuolar interface dermatitis. Differential diagnosis of that biopsy included fixed drug eruption, erythema multiforme, GVHD, and connective tissue disease. His skin rash improved with systemic corticosteroids. He has been admitted for consolidation chemotherapy. He received MTX and cytarabine. Since yesterday, he started having fevers. he is complaining of body malaise, diffuse body aches, and neck pain. Denies headache or photophobia. No respiratory complaints. No GI or complaints. His skin is better, and less itchy. 2 BC done yesterday, one is growing GPC. Infectious Disease consultation has been requested to evaluate patient with fevers. He is not neutropenic. he is on IV Vanco, Cefepime and Diflucan. Overnight events reviewed. Temps low grade. Short of breath, using accessory muscles of respiration. On 10 L Oxygen. Family wants intubation. All BC with MRSA, 01/02-1023 Port removed - 01/05 BC 01/06 negative so far On nasal O2 Mental status still not his baseline BP ok UA ok Pancytopenia persists Antibiotics I attest that I obtained, updated or reviewed the home and current medications. Cubicin Cefepime Diflucan Current Medications Medications (Trade) Dose Ordered Sig/Daniel Route Start Time Stop Time Status Last Admin (Reglan Inj) 5 mg Q6H PRN IV PUSH 12/29/16 08:00 (Deltasone) 20 mg DAILY PO 12/29/16 09:00 01/08/17 09:06 (Protonix) 40 mg DAILY PO 12/29/16 09:00 01/08/17 09:06 (Zyloprim) 200 mg DAILY PO 12/30/16 09:00 01/08/17 09:09 (Oscal-D 250-125) 500 mg Q12HR PO 12/29/16 21:00 01/08/17 09:06 (Cardizem Cd) 240 mg DAILY PO 12/30/16 09:00 Future hold 01/08/17 09:06 (Benadryl) 25 mg Q4H PRN PO 12/29/16 11:00 12/31/16 17:49 (Lactinex) 1 tab TID PO 12/29/16 13:00 01/08/17 09:06 (Megace Liq) 400 mg DAILY PO 12/30/16 09:00 01/08/17 09:07 (Lopressor) 25 mg Q12HR PO 12/29/16 21:00 01/08/17 09:06 (Nutracort 1% Oint) 1 applic BID TOPICAL 12/29/16 13:00 01/07/17 20:18 (NS Flush) 2 ml UNSCH PRN IV FLUSH 12/29/16 12:00 01/04/17 21:08 (NS Flush) 2 ml BID IV FLUSH 12/29/16 21:00 01/08/17 09:10 (Tylenol) 650 mg Q4H PRN PO 12/29/16 11:30 01/03/17 00:11 (Zofran Inj) 4 mg Q6H PRN IVP 12/29/16 11:30 (Compazine Supp) 25 mg Q12H PRN RECTAL 12/29/16 11:30 (Tylenol) 650 mg Q6H PRN PO 12/29/16 11:30 (Percocet 5-325 Mg) 1 tab Q6H PRN PO 12/29/16 11:30 (Percocet 10-325 Mg) 1 tab Q6H PRN PO 12/29/16 11:30 01/08/17 03:19 (Morphine Inj) 2 mg Q3H PRN IV PUSH 12/29/16 11:30 01/07/17 18:18 (Morphine Inj) 4 mg Q3H PRN IV PUSH 12/29/16 11:30 01/07/17 16:22 (Narcan Inj) 0.4 mg UNSCH PRN IV PUSH 12/29/16 11:45 (Cindy-Colace) 1 tab BID PO 12/29/16 21:00 01/08/17 09:06 (Milk Of Magnesia Liq) 30 ml Q12H PRN PO 12/29/16 11:45 (Senokot) 17.2 mg Q12H PRN PO 12/29/16 11:45 (Dulcolax Supp) 10 mg DAILY PRN RECTAL 12/29/16 11:45 (Lactulose Liq) 30 ml DAILY PRN PO 12/29/16 11:45 (Synthroid) 25 mcg DAILY@0600 PO 12/31/16 06:00 01/08/17 05:25 (NovoLIN R SUPPLEMENTAL SCALE) 1 ACHS SLIDING SCALE SQ 01/01/17 21:00 01/07/17 20:16 (Levemir Inj) 5 units Q12HR SQ 01/02/17 09:00 01/08/17 09:07 Cefepime HCl 2000 mg/Sodium Chloride 100 ml @ 200 mls/hr Q8HR IV 01/03/17 14:00 01/08/17 05:25 (Diflucan) 200 mg DAILY PO 01/03/17 11:00 01/08/17 09:07 (Neupogen Inj) 480 mcg DAILY@14 SQ 01/03/17 14:00 01/07/17 13:37 (Lopressor Inj) 5 mg Q6H PRN IV PUSH 01/05/17 10:45 01/08/17 03:19 Miscellaneous Information Patient in critical care unit? Ass... [id number] .XX 01/05/17 22:30 01/05/17 22:30 (Chlorhexidine 2% Cloth) 3 pack DAILY@04 TOPICAL 01/06/17 04:00 01/10/17 04:01 01/08/17 04:00 (Chlorhexidine 2% Cloth) 3 pack UNSCH PRN TOPICAL 01/05/17 22:30 01/10/17 22:27 (Tylenol) 650 mg Q4H PRN PO 01/06/17 09:00 (Benadryl) 25 mg Q4H PRN PO 01/06/17 09:00 Diltiazem HCl 125 mg/Sodium Chloride 125 ml @ 5 mls/hr TITRATE PRN IV 01/06/17 13:30 01/08/17 06:19 Daptomycin 700 mg/ Sodium Chloride 100 ml @ 200 mls/hr Q24H IV 01/06/17 16:00 01/07/17 15:43 Sodium Chloride 1,000 ml @ 84 mls/hr [id number] IV 01/07/17 13:00 01/08/17 03:10 Lines Port removed. Past Medical History 1. B-cell ALL ([facility] chromosome negative). 2. Acute kidney failure (now recovered). 3. 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 4. Severe rash, currently present. 5. Protein calorie malnutrition. 6. Chemotherapy-related myelosuppression. 7. Atrial fibrillation. Past Surgical History 1. Appendectomy. 2. Benign polyp removal from the throat. 3. Lumbar puncture with intrathecal chemotherapy injection. 4. Port placement. 5. Bone marrow biopsy and aspiration. 6. Skin biopsy Allergies: Coded Allergies: No Known Allergies (Unverified , 10/24/16) Objective . Vital Signs Date Time Temp Pulse Resp B/P (MAP) Pulse Ox O2 Delivery O2 Flow Rate FiO2 01/09/17 10:00 114 01/09/17 09:52 99.1 110 49 139/57 91 01/09/17 08:18 99.1 102 47 89 01/09/17 08:16 92 Simple Mask 8.00 01/09/17 08:00 96 01/09/17 08:00 99.1 96 22 144/74 (97) 89 01/09/17 07:07 97 142/63 01/09/17 07:00 93 Simple Mask 10.00 01/09/17 06:00 94 01/09/17 04:00 98.0 87 16 108/74 (85) 94 01/09/17 04:00 87 01/09/17 02:00 83 01/09/17 00:00 98.5 81 18 172/69 (103) 99 01/09/17 00:00 81 01/08/17 22:00 100 01/08/17 20:00 105 01/08/17 19:38 100 Nasal Cannula 2.00 01/08/17 19:00 Nasal Cannula 3.00 01/08/17 18:00 105 01/08/17 16:00 97 01/08/17 16:00 99.8 100 24 125/69 (87) 92 01/08/17 14:00 92 01/08/17 12:00 100.0 86 22 114/57 (76) 95 01/08/17 12:00 86 01/09/17 01/09/17 01/10/17 15:00 23:00 07:00 Intake Total 40 ml Balance 40 ml Blood Product IV Normal Saline Flush 40 ml . Laboratory Tests Test 01/08/17 07:27 01/09/17 06:22 White Blood Count 0.8 TH/MM3 0.2 TH/MM3 Red Blood Count 2.31 MIL/MM3 2.17 MIL/MM3 Hemoglobin 7.4 GM/DL 6.9 GM/DL Hematocrit 21.7 % 20.2 % Mean Corpuscular Volume 94.0 FL 93.1 FL Mean Corpuscular Hemoglobin 31.9 PG 32.0 PG Mean Corpuscular Hemoglobin Concent 34.0 % 34.4 % Red Cell Distribution Width 21.4 % 21.2 % Platelet Count 10 TH/MM3 3 TH/MM3 Mean Platelet Volume 9.3 FL 9.9 FL CBC Comment AUTO DIFF AUTO DIFF Differential Total Cells Counted 25 25 Lymphocytes % 88 % 52 % Monocytes % 8 % 36 % Neutrophils # (Manual) 0.0 TH/MM3 0.0 TH/MM3 Myelocytes 4 % Differential Comment FINAL DIFF MANUAL FINAL DIFF MANUAL Platelet Estimate RARE RARE Platelet Morphology Comment NORMAL NORMAL Ovalocytes 1+ Neutrophils % (Manual) 4 % Band Neutrophils % 8 % Dohle Bodies PRESENT Laboratory Tests Test 01/08/17 07:45 01/09/17 06:22 Blood Urea Nitrogen 52 MG/DL 59 MG/DL Creatinine 1.61 MG/DL 1.46 MG/DL Random Glucose 138 MG/DL 162 MG/DL Total Protein 6.1 GM/DL 5.9 GM/DL Albumin 1.9 GM/DL 2.1 GM/DL Calcium Level 8.7 MG/DL 8.2 MG/DL Phosphorus Level 4.0 MG/DL 2.3 MG/DL Magnesium Level 2.6 MG/DL 2.3 MG/DL Alkaline Phosphatase 48 U/L 61 U/L Aspartate Amino Transf (AST/SGOT) 37 U/L 71 U/L Alanine Aminotransferase (ALT/SGPT) 20 U/L 49 U/L Total Bilirubin 3.6 MG/DL 4.9 MG/DL Sodium Level 142 MEQ/L 144 MEQ/L Potassium Level 3.3 MEQ/L 3.6 MEQ/L Chloride Level 109 MEQ/L 113 MEQ/L Carbon Dioxide Level 21.4 MEQ/L 20.5 MEQ/L Anion Gap 12 MEQ/L 11 MEQ/L Estimat Glomerular Filtration Rate 43 ML/MIN 48 ML/MIN Total Creatine Kinase 555 U/L 129 U/L Creatine Kinase MB 0.7 NG/ML Creatine Kinase MB % 0.1 % Direct Bilirubin 3.7 MG/DL Indirect Bilirubin 1.2 MG/DL Microbiology Date/Time Source Procedure Growth Status 01/08/17 07:45 Blood Peripheral Aerobic Blood Culture - Preliminary NO GROWTH IN 1 DAY Resulted 01/08/17 07:45 Blood Peripheral Anaerobic Blood Culture - Preliminary NO GROWTH IN 1 DAY Resulted 01/07/17 12:00 Blood Peripheral Aerobic Blood Culture - Preliminary Gram Positive Cocci Resulted 01/07/17 12:00 Anaerobic Blood Culture - Preliminary Gram Positive Cocci Resulted 01/07/17 11:00 Blood Peripheral Aerobic Blood Culture - Preliminary NO GROWTH IN 2 DAYS Resulted 01/07/17 11:00 Blood Peripheral Anaerobic Blood Culture - Preliminary NO GROWTH IN 2 DAYS Resulted Imaging Abdomen X-Ray 01/06/17 0000 Signed Impressions: Service Date/Time: Friday, January 06, 2017 08:29 - CONCLUSION: No dilated loops of small or large bowel.. Dion Alford MD Chest X-Ray 01/05/17 1021 Signed Impressions: Service Date/Time: Thursday, January 05, 2017 10:34 - CONCLUSION: 1. Minimal bibasilar airspace disease, likely atelectasis. 2. Otherwise, no acute abnormality or significant interval change. Armando Martínez MD Neck CT 01/05/17 0000 Signed Impressions: Service Date/Time: Thursday, January 05, 2017 11:54 - CONCLUSION: Negative CT soft tissue neck with contrast. Dion Alford MD Head CT 01/05/17 0000 Signed Impressions: Service Date/Time: Thursday, January 05, 2017 11:54 - CONCLUSION: Negative noncontrast CT Wander Hodges MD Last Impressions Chest X-Ray 01/03/17 0000 Signed Impressions: Service Date/Time: Tuesday, January 03, 2017 22:02 - CONCLUSION: 1. [id number] in superior vena cava. No consolidation or significant effusion. Hao Lea MD Physical Exam GENERAL: Opens eyes when stimulated, looks dyspneic, sats good SKIN: Warm and very dry skin. Poor turgor HEAD: Atraumatic. Normocephalic. No temporal wasting, or tenderness. EYES: Coin conjunctiva. No petechia or hemorrhage. Pupils equal, round and reactive to light. Extraocular movements full and intact. No scleral icterus. No injection or drainage. EARS, NOSE AND THROAT: Nose without bleeding or purulent nasal discharge. He is edentulous, with some oral thrush, dry oral mucosa. No oral lesions NECK: Trachea midline. Supple and not tender, no meningeal sign. No nuchal rigidity CARDIOVASCULAR: Regular rate and rhythm. No murmurs, rubs or gallops heard RESPIRATORY: Scattered wheezing. Intact dressing over previous port site ABDOMEN: Soft, non-tender, nondistended. Bowel sounds present and normoactive. No guarding. No rebound. No organomegaly. Some ecchymoses on L side of abdomen EXTREMITIES: No clubbing, cyanosis, or edema. No joint effusion, has good ROM. No calf tenderness. Well perfused and warm. NEUROLOGICAL: Non-focal. PSYCHIATRIC: Still lethargic LINE: No evidence of infection Port site with minimal erythema. Assessment & Plan Remarks IMPRESSION Probable endocarditis or septic thrombophlebitis related to port. MRSA sepsis, high grade - port removed 01/05 - BC (+) 01/02-01/05 Fevers, patient with ALL, receiving consolidation chemotherapy - due to sepsis - temps low grade Lethargic and SOB, due to sepsis ALL, on consolidation chemo Neutropenia Renal insufficiency, worse Skin rash Oral thrush Neck pain, ?musculoskeletal RECOMMENDATION Continue Cubicin for MRSA (Vanco JENIFER 2.0, and BC still positive) - follow CPK while on Cubicin Continue other empiric Abx: Cefepime, Diflucan, until neutropenia resolves Repeat BCX if one from 01/08/17 is positive or change in clinical condition. Ideally JOSETTE, but high risk and hold off for now. Too unstable and neutropenic/ thrombocytopenic. He will be treated with 6 weeks IV Abx due to high grade bacteremia (from last ( +) BC or date of removal of port. Monitor temps Monitor counts Neutropenic precautions Monitor progress Called CCM to expedite intubation as pt looked in significant resp distress. Check ABG. STAT CXR post intubation CT C/A/P with contrast re: septic emboli, abscesses, empyema. Doppler UE r/o septic thrombophlebitis. Insert Almazan accurate I/O documentation. D/W RN and HETAL VERDUZCO. Dr Hewitt covering the weekend Olive Russo MD Jan 09, 2017 12:01
[2017-01-09] MEDS ORDERED: LACTATED RINGER'S 1000 ML INJ 1,000 ML IV ONE (12:15)
--- NOTE | 2017-01-09 12:48 | RADRPT ---
EXAM DATE/TIME: 01/09/2017 11:47 [facility] COMPARISON: CHEST SINGLE AP, January 09, 2017, 9:21. INDICATIONS : Pneumonia. Post Intubation. MEDICAL HISTORY : Leukemia. Cardiovascular disease Hypertension SURGICAL HISTORY : Appendectomy. ENCOUNTER: Subsequent ACUITY: 1 week PAIN SCORE: Non-responsive. LOCATION: Bilateral chest FINDINGS: A single AP supine portable view of the chest was obtained and demonstrates interval intubation with the endotracheal tube tip approximately 4 cm above the anamika. Hazy opacity remains in the perihilar regions and both lung bases. Heart size remains at the upper limits of normal. The costophrenic angle s appear clear. CONCLUSION: 1. Interval intubation. 2. Mild hazy opacity remains in both lungs. Wander Hodges MD on January 09, 2017 at 12:45 Board Certified Radiologist. This report was verified electronically.
[2017-01-09 12:52] LABS: BLOOD GAS BASE EXCESS -4.3 mmol/L (-2-2); BLOOD GAS CARBOXYHEMOGLOBIN 1.2 % (0-4); BLOOD GAS HCO3 22 mmol/L (22-26); BLOOD GAS METHEMOGLOBIN 0.7 % (0-2); BLOOD GAS O2 HGB SATURATION 96 % (90-100); BLOOD GAS OXYGEN CONTENT 8.6 Vol % (12.0-20.0); BLOOD GAS PCO2 54 mmHg (38-42); BLOOD GAS PO2 123 mmHG (61-120); BLOOD GAS TOTAL HGB 6.2 G/DL (12.0-16.0); TEMP CORR TO 98.6
[2017-01-09 12:53] LABS: CRITICAL VALUE YES; OXYGEN DEVICE VENTILATOR
[2017-01-09 12:54] LABS: DRAW SITE RT RADIAL; FIO2 100 %; NUMBER OF ARTERIAL PUNCTURES 1; STAT NO; ULNAR PULSE PRESENT; VENT SETTINGS 16/500/PEEP5
--- NOTE | 2017-01-09 13:18 | RADRPT ---
EXAM DATE/TIME: 01/09/2017 12:18 [facility] COMPARISON: No previous studies available for comparison. INDICATIONS : Left arm swelling. MEDICAL HISTORY : Hypertension. Renal failure. Blood dyscrasias. Thrombocytopenia. Leukemia. Blood transfusions. MRSA . SURGICAL HISTORY : Appendectomy. ENCOUNTER: Initial ACUITY: 1 day PAIN SCORE: 2/10 LOCATION: Left arm. FINDINGS: There is spontaneous flow documented in the brachial, basilic, axillary, and subclavian veins. The v essels are compressible and augmentation response is documented. No filling defects are seen. The f low is phasic with respiration. Direction of flow in the jugular vein is caudal. There is some echo genic thrombus and noncompressibility of the superficial cephalic vein. CONCLUSION: 1. No evidence of deep venous thrombosis left upper stomach. 2. Superficial thrombosis in the cephalic vein. Dion Alford MD on January 09, 2017 at 13:15 Board Certified Radiologist. This report was verified electronically.
[2017-01-09] MEDS: DAPTOmycin INJ 700 MG in SODIUM CHLORIDE 0.9% INJ 100 ML IV SCH (15:10)
[2017-01-09] MEDS: FILGRASTIM 480 MCG/1.6 ML VIAL SQ SCH (15:11)
[2017-01-09] MEDS: PHENYLEPHRINE INJ 40 MG in DEXTROSE 5% IN WATE 500 ML INJ 496 ML IV PRN ×6 (16:25→23:47)
--- NOTE | 2017-01-09 18:48 | HHI.CCPN ---
Subjective Remarks/Hospital Course Hospital Course: This is a 71-year-old male with a history of B-cell lymphoma undergoing chemotherapy who was originally admitted to the hospital with febrile neutropenia and was found to have MRSA bacteremia. He is maintained on IV vancomycin. Despite this he is been increasingly more toxic appearing. His respiratory rate is been increasing and he is experiencing increasing respiratory distress. The patient tells me he feels fatigued. He endorses fever, chills, shortness of breath. He says he just doesn't feel well. Throughout the day stays become increasingly dyspneic with an rising respiratory rate. His ABG demonstrates a severe metabolic acidosis with a base deficit of 10. His blood cultures have been positive for 3 days despite adequate therapy. He does have a Port-A-Cath that remains in place. Critical care medicine is consulted to evaluate and manage his respiratory distress and persistent bacteremia, severe neutropenic sepsis 01/06: continues to be in significant respiratory distress with a severe non- gapped metabolic acidosis. also has been on diamox since 12/29. bicarbonate drip started this morning. lactate still < 2. hemodynamics stable. clinically appears hypovolemic. tachycardia persists. port removed yesterday. blood cultures continue to be positive for MRSA. on vancomycin with appropriate trough. 01/07: Brother at bedside. Arousable and will follow commands. Very lethargic however somewhat improved from yesterday according to RN. Currently afebrile. Very poor appetite. 01/08: Tmax 100. Currently 99.4. More awake and alert. Very poor appetite. Noted Doppler placement recommended per hematology however platelets are currently at 10. Subjective: 01/09: clinically declined overnight. now on NRB mask. still talking and answering questions, but now dyspneic and in more distress. talked with his family and got palliative care involved and family requests continuation of full code and aggressive care. intubated (see separate procedure note). post- intubation, hypotensive and started on phenylephrine and given 1L LR bolus. remains very critically ill and declining. Objective Vital Signs Date Time Temp Pulse Resp B/P (MAP) Pulse Ox O2 Delivery O2 Flow Rate FiO2 01/09/17 17:06 98 100 01/09/17 16:25 86 82/46 01/09/17 16:00 99.1 24 01/09/17 08:16 Simple Mask 8.00 Intake and Output 01/09/17 01/09/17 01/10/17 08:00 16:00 00:00 Intake Total 320 ml 40 ml Output Total 1000 ml Balance -680 ml 40 ml Result Diagram: 01/09/1762101/09/17621 Other Results Microbiology Date/Time Source Procedure Growth Status 01/07/17 12:00 Blood Peripheral Aerobic Blood Culture - Final S. Aureus Mrsa Complete 01/07/17 12:00 Anaerobic Blood Culture - Final S. Aureus Mrsa Complete Laboratory Tests Test 01/09/17 12:30 Blood Gas Puncture Site RT RADIAL Blood Gas Patient Temperature 98.6 Blood Gas HCO3 22 mmol/L (22-26) Blood Gas Base Excess -4.3 mmol/L (-2-2) Blood Gas Oxygen Saturation 96 % (90-100) Arterial Blood pH 7.24 (7.380-7.420) Arterial Blood Partial Pressure CO2 54 mmHg (38-42) Arterial Blood Partial Pressure O2 123 mmHG (61-120) Arterial Blood Oxygen Content 8.6 Vol % (12.0-20.0) Arterial Blood Carboxyhemoglobin 1.2 % (0-4) Arterial Blood Methemoglobin 0.7 % (0-2) Blood Gas Hemoglobin 6.2 G/DL (12.0-16.0) Oxygen Delivery Device VENTILATOR Blood Gas Ventilator Setting 16/500/PEEP5 Blood Gas Inspired Oxygen 100 % Imaging Last Impressions Abdomen X-Ray 01/06/17 0000 Signed Impressions: Service Date/Time: Friday, January 06, 2017 08:29 - CONCLUSION: No dilated loops of small or large bowel.. Dion Alford MD Chest X-Ray 01/05/17 1021 Signed Impressions: Service Date/Time: Thursday, January 05, 2017 10:34 - CONCLUSION: 1. Minimal bibasilar airspace disease, likely atelectasis. 2. Otherwise, no acute abnormality or significant interval change. Armando Martínez MD Neck CT 01/05/17 0000 Signed Impressions: Service Date/Time: Thursday, January 05, 2017 11:54 - CONCLUSION: Negative CT soft tissue neck with contrast. Dion Alford MD Head CT 01/05/17 0000 Signed Impressions: Service Date/Time: Thursday, January 05, 2017 11:54 - CONCLUSION: Negative noncontrast CT Wander Hodges MD Objective Remarks GENERAL: 71-year-old male,in worsening respiratory distress. HEENT: Normocephalic. Atraumatic. Pupils equal, round, reactive about 3 mm bilaterally, conjugate. Mucous membranes are moderately moist and pink. Drooling from all membranes. NECK: Trachea is midline. There is no JVD. CHEST: Incision over port removal/left chest is clean dry and intact. tachypneic on NRB. CARDIOVASCULAR: IRR. S1, S2. No S4. Without murmur ABDOMEN: Soft, nontender, nondistended. No guarding. MUSCULOSKELETAL: Pulses 2+. No peripheral edema. NEUROLOGICAL: RASS -2. Moves all 4 extremity spontaneously. Follows commands by squeezing hands and wiggling toes. Nonfocal. A/P Assessment and Plan Assessment: 71yM with B cell lymphoma undergoing chemotherapy with MRSA bacteremia which is persistent, severe sepsis, acidosis, acute kidney injury and now worsening acute hypoxic respiratory failure requiring intubation. he remains very critically ill and worse today than yesterday. declining and likely has a very poor prognosis. agree with palliative care consultation. Neuro/Psych: Acute encephalopathy/toxic metabolic Currently on oxycodone/acetaminophen 5/325 -10/325 one tablet every 6 hours when necessary pain 3-10 CT brain/ 01/05 with no acute findings. place on fentanyl for goal RASS -2 while intubated. CV: A. fib with RVR Hypotension post intubation Currently on metoprolol 25 mg twice a day, diltiazem extended release 240 mg daily diltiazem drip Rate currently controlled. Appears a flutter currently 2-D echocardiogram 01/04 revealed EF 40-45%. Decreased LV systolic function. Cannot exclude vegetations. phenylephrine to maintain map > 65 mmHg. Resp: Acute hypoxic and hypercarbic respiratory failure intubated 01/09 for worsening respiratory distress and hypoxia vent bundle/hob at 30 degrees/nebs will not wean today while hypoxic. GI: Acute protein calorie malnutrition- severe place gastric tube and start TF. nutrition consult daily [facility] ICU electrolyte protocol. : Place álvarez catheter given FAIZA and now poor mental status. Endo: Hypothyroidism Continue levothyroxine 25 g daily Continue allopurinol 200 mg daily for tumor lysis syndrome Renal: Acute kidney injury Monitor urine output Accurate I's and O's Currently on one half normal saline at 84 cc an hour Heme: History of B-cell CLL Dilaudid, a negative status post hyper CVAD/rituximab and intrathecal chemotherapy Pancytopenia including leukopenia, normocytic anemia thrombocytopenia Transfuse to thresholds per Dr. Rice, hematology receiving platelets today. ID: MRSA bacteremia - persistent. Current regimen daptomycin 700 mg IV every 24 hours and cefepime 2 g IV every 8 hours and fluconazole 200 mg daily Followed by infectious disease Likely will need JOSETTE once stable, but holding off given thrombocytopenia and neutropenia new LLL infiltrate on CXR, will obtain sputum culture. MSK: Osteoarthritis Continuing calcium carbonate vitamin D FEN: Hypokalemia ICU electrolyte protocol. daily BMP Access - Utilize peripheral IV. Central line if indicated Prophylaxis - GI - pantoprazole - DVT - SCD/holding pharmacological prophylaxis in light of thrombocytopenia Critical Care: The total critical care time was 77 minutes. Time to perform other separately billable procedures was not included in the critical care time. Grabiel Elliott MD Jan 09, 2017 18:48
--- NOTE | 2017-01-09 18:49 | PD.PROCEDR ---
Procedure Note Procedure Endotracheal Intubation Diagnosis: Worsening acute hypoxic and hypercarbic respiratory failure Indications: Acute hypoxic and hypercarbic respiratory failure Consent: Emergent Anesthesia: Versed 10 mg IV, Rocuronium 100 mg IV Description of the Procedure: The patient was positioned in the sniffing position. Pre-oxygenation was performed using a [id number]. Anesthesia was induced via rapid sequence. A Cash #2 was used for laryngoscopy and a Grade 1 view was obtained. A 8.5 cuffed endotracheal tube was inserted atraumatically through the vocal cords. Confirmation of correct endotracheal tube placement was made by equal and bilateral breath sounds and colorimetric CO2 detection. The endotracheal tube was secured at 23 cm at the teeth. There were no immediate complications noted. The patient remained hemodynamically stable throughout the procedure. A chest x-ray has been ordered. I personally performed the procedure. Grabiel Elliott MD Jan 09, 2017 18:49
[2017-01-09] MEDS: CHLORHEXIDINE 0.12% (ORAL KIT) 15 ML CUP MT SCH (20:48)
[2017-01-10] VITALS (54 sets, daily range): BP systolic 80–148; BP diastolic 50–79; PULSE 75–98; RESP 16–37; TEMP 98–99.4; O2SAT 88–99
[2017-01-10] MEDS: CHLORHEXIDINE GLUCONATE 2 % 1 PACK (2 CLOTHS)(taper/protocol) TOPICAL SCH (04:00)
[2017-01-10] MEDS: CEFEPIME INJ 2,000 MG in SODIUM CHLORIDE 0.9% INJ 100 ML IV SCH ×3 (04:46→20:24)
[2017-01-10] MEDS: LEVOTHYROXINE SODIUM 25 MCG TAB PO SCH (04:47)
[2017-01-10] MEDS: PHENYLEPHRINE INJ 40 MG in DEXTROSE 5% IN WATE 500 ML INJ 496 ML IV PRN ×2 (04:50)
[2017-01-10 06:33] LABS: HEMATOCRIT 27.9 % (39.0-51.0); MEAN CELL VOLUME 93.7 FL (80.0-100.0); MEAN CORPUSCULAR HEMOGLOBIN 31.9 PG (27.0-34.0); PLATELET COUNT 24 TH/MM3 (150-450); RED BLOOD COUNT 2.98 MIL/MM3 (4.50-5.90); RED CELL DISTRIBUTION WIDTH 20.3 % (11.6-17.2); WHITE BLOOD COUNT 1.1 TH/MM3 (4.0-11.0)
[2017-01-10 06:47] LABS: HEMO FLAGS AUTO DIFF
[2017-01-10] MEDS: fentaNYL DRIP 250 ML IV PRN ×3 (07:00→23:45)
[2017-01-10] MEDS: INSULIN NovoLIN REGULAR SUPPLEMENTAL SCALE SQ SCH ×4 (08:00→20:53)
[2017-01-10] MEDS: INSULIN DETEMIR 100 UNITS/ML VIAL SQ SCH ×2 (08:17→20:27)
[2017-01-10] MEDS: ALLOPURINOL 100 MG TAB PO SCH (08:17)
[2017-01-10] MEDS: HYDROCORTISONE 1% OINT 30 GM TUBE TOPICAL SCH ×2 (08:17→21:00)
[2017-01-10] MEDS: METOPROLOL TARTRATE 25 MG TAB PO SCH ×2 (08:17→20:25)
[2017-01-10] MEDS: CALCIUM/VITAMIN D 250 MG/125 U TAB PO SCH ×2 (08:17→20:25)
[2017-01-10] MEDS: FLUCONAZOLE 200 MG TAB PO SCH (08:17)
[2017-01-10] MEDS: CHLORHEXIDINE 0.12% (ORAL KIT) 15 ML CUP MT SCH ×2 (08:17→20:00)
[2017-01-10] MEDS: LACTOBACILLUS ACIDOPHILUS TAB PO SCH ×3 (08:17→17:00)
[2017-01-10] MEDS: DOCUSATE SODIUM 50 MG/SENNA 8.6 MG TAB PO SCH ×2 (08:17→20:25)
[2017-01-10] MEDS: predniSONE 20 MG TAB PO SCH (08:17)
[2017-01-10] MEDS: DILTIAZEM-CD 240 MG CAP ER PO SCH (08:17)
[2017-01-10] MEDS: MEGESTROL ACETATE SUSP 400 MG/10 ML CUP PO SCH (08:17)
[2017-01-10] MEDS: PANTOPRAZOLE SOD 40 MG DELAYED RELEASE TAB PO SCH (08:17)
[2017-01-10] MEDS: SODIUM CHLORIDE 0.9% FLUSH 10 ML FLUSH IV FLUSH SCH ×2 (08:18→20:48)
[2017-01-10 08:36] LABS: BANDS 30 % (0-6); CORRECTED NUCLEATED RBC 2 /100 WBC (0-0); EOSINOPHILS 2 % (0-4); METAMYELOCYTES 16 % (0-1); MYELOCYTES 2 % (0-0); NEUTROPHIL # MANUAL DIFF 0.7 TH/MM3 (1.8-7.7); POLYS (SEG NEUTROPHILS) 12 % (16-70); WBC DIFF SAMPLE 50
[2017-01-10 08:37] LABS: ACANTHOCYTES OCC (NORMAL); PLATELET ESTIMATE SMEAR LOW (NORMAL); PLATELET MORPHOLOGY NORMAL (NORMAL); SCAN/DIFF FINAL DIFF MANUAL
[2017-01-10 09:42] LABS: ALKALINE PHOSPHATASE 58 U/L (45-117); ALT (GPT) 597 U/L (12-78); ANION GAP 14 MEQ/L (5-15); AST (GOT) 795 U/L (15-37); BICARBONATE 15.9 MEQ/L (21.0-32.0); BLOOD UREA NITROGEN 76 MG/DL (7-18); CHLORIDE 109 MEQ/L (98-107); GLOMERULAR FILTRATION RATE 27 ML/MIN (>89); POTASSIUM 4.4 MEQ/L (3.5-5.1); SODIUM (NA) 139 MEQ/L (136-145)
--- NOTE | 2017-01-10 11:13 | PD.ONC.PN ---
Subjective Subjective Remarks Afebrile overnight. Remains intubated, sedated. On occasional phenylephrine, otherwise off all pressor support. Objective Data Date Time Temp Pulse Resp B/P (MAP) Pulse Ox O2 Delivery O2 Flow Rate FiO2 01/10/17 10:15 85 21 99/58 (72) 90 01/10/17 10:00 78 01/10/17 10:00 78 19 101/55 (70) 89 01/10/17 09:47 84 22 94/61 (72) 90 01/10/17 09:30 84 23 97/58 (71) 91 01/10/17 09:15 79 28 91/55 (67) 91 01/10/17 09:00 87 30 98/52 (67) 91 01/10/17 08:45 91 27 110/56 (74) 92 01/10/17 08:30 95 30 122/58 (79) 93 01/10/17 08:30 95 122/58 01/10/17 08:15 96 30 113/60 (77) 91 01/10/17 08:13 92 60 01/10/17 08:00 98.8 97 26 139/65 (89) 92 01/10/17 08:00 97 01/10/17 08:00 60 01/10/17 07:45 94 37 148/79 (102) 96 01/10/17 07:30 98 36 144/68 (93) 96 01/10/17 07:15 96 37 127/61 (83) 95 01/10/17 07:00 95 Mechanical Ventilator 50 01/10/17 07:00 91 32 138/60 (86) 95 01/10/17 07:00 91 138/60 01/10/17 06:00 95 01/10/17 04:50 84 149/68 01/10/17 04:20 96 50 01/10/17 04:00 100 01/10/17 04:00 99.4 95 26 143/64 (90) 96 01/10/17 04:00 95 01/10/17 02:00 89 01/10/17 01:15 98 70 01/10/17 00:00 81 01/10/17 00:00 100 01/10/17 00:00 98.2 81 22 122/63 (82) 99 01/09/17 23:47 84 122/63 01/09/17 22:13 99 100 01/09/17 22:00 83 01/09/17 21:11 78 120/56 01/09/17 21:07 98.4 77 29 120/56 100 01/09/17 20:15 99 100 01/09/17 20:00 100 01/09/17 20:00 98.4 81 20 82/49 (60) 99 01/09/17 20:00 81 01/09/17 19:00 99 Mechanical Ventilator 100 01/09/17 18:00 85 01/09/17 17:06 98 100 01/09/17 16:25 86 82/46 01/09/17 16:00 99.1 90 24 96/43 (60) 95 01/09/17 16:00 86 01/09/17 14:00 99 01/09/17 13:00 100 01/09/17 12:00 105 01/09/17 12:00 99.0 105 24 107/63 (78) 98 01/09/17 11:48 100 100 01/10/17 01/10/17 01/10/17 07:00 15:00 23:00 Intake Total 1700 ml 175 ml Output Total 350 ml Balance 1350 ml 175 ml Result Diagram: 01/10/17 0505 01/10/17 0505 Laboratory Results Laboratory Tests Test 01/09/17 12:30 01/10/17 05:05 Blood Gas Puncture Site RT RADIAL Blood Gas Patient Temperature 98.6 Blood Gas HCO3 22 mmol/L Blood Gas Base Excess -4.3 mmol/L Blood Gas Oxygen Saturation 96 % Arterial Blood pH 7.24 Arterial Blood Partial Pressure CO2 54 mmHg Arterial Blood Partial Pressure O2 123 mmHG Arterial Blood Oxygen Content 8.6 Vol % Arterial Blood Carboxyhemoglobin 1.2 % Arterial Blood Methemoglobin 0.7 % Blood Gas Hemoglobin 6.2 G/DL Oxygen Delivery Device VENTILATOR Blood Gas Ventilator Setting 16/500/PEEP5 Blood Gas Inspired Oxygen 100 % White Blood Count 1.1 TH/MM3 Red Blood Count 2.98 MIL/MM3 Hemoglobin 9.5 GM/DL Hematocrit 27.9 % Mean Corpuscular Volume 93.7 FL Mean Corpuscular Hemoglobin 31.9 PG Mean Corpuscular Hemoglobin Concent 34.0 % Red Cell Distribution Width 20.3 % Platelet Count 24 TH/MM3 Mean Platelet Volume 8.9 FL CBC Comment AUTO DIFF Differential Total Cells Counted 50 Neutrophils % (Manual) 12 % Band Neutrophils % 30 % Lymphocytes % 22 % Monocytes % 16 % Eosinophils % 2 % Neutrophils # (Manual) 0.7 TH/MM3 Metamyelocytes 16 % Myelocytes 2 % Nucleated Red Blood Cells 2 /100 WBC Differential Comment FINAL DIFF MANUAL Platelet Estimate LOW Platelet Morphology Comment NORMAL Acanthocytes OCC Blood Urea Nitrogen 76 MG/DL Creatinine 2.37 MG/DL Random Glucose 243 MG/DL Total Protein 5.6 GM/DL Albumin 1.9 GM/DL Calcium Level 8.0 MG/DL Alkaline Phosphatase 58 U/L Aspartate Amino Transf (AST/SGOT) 795 U/L Alanine Aminotransferase (ALT/SGPT) 597 U/L Total Bilirubin 6.0 MG/DL Sodium Level 139 MEQ/L Potassium Level 4.4 MEQ/L Chloride Level 109 MEQ/L Carbon Dioxide Level 15.9 MEQ/L Anion Gap 14 MEQ/L Estimat Glomerular Filtration Rate 27 ML/MIN Total Creatine Kinase 116 U/L Culture Results Microbiology Date/Time Source Procedure Growth Status 01/08/17 07:45 Blood Peripheral Aerobic Blood Culture - Preliminary NO GROWTH IN 1 DAY Resulted 01/08/17 07:45 Blood Peripheral Anaerobic Blood Culture - Preliminary NO GROWTH IN 1 DAY Resulted 01/07/17 12:00 Blood Peripheral Aerobic Blood Culture - Final S. Aureus Mrsa Complete 01/07/17 12:00 Anaerobic Blood Culture - Final S. Aureus Mrsa Complete Administered Medications Medications (Trade) Dose Ordered Sig/Daniel Route PRN Reason Start Time Stop Time Status Last Admin Dose Admin Prednisone (Deltasone) 20 mg DAILY PO 12/29/16 09:00 01/10/17 08:17 Pantoprazole Sodium (Protonix) 40 mg DAILY PO 12/29/16 09:00 01/10/17 08:17 Allopurinol (Zyloprim) 200 mg DAILY PO 12/30/16 09:00 01/10/17 08:17 Calcium/Vitamin D (Oscal-D 250-125) 500 mg Q12HR PO 12/29/16 21:00 01/10/17 08:17 Diltiazem HCl (Cardizem Cd) 240 mg DAILY PO 12/30/16 09:00 Future hold 01/10/17 08:17 Diphenhydramine HCl (Benadryl) 25 mg Q4H PRN PO SEE LABEL COMMENTS 12/29/16 11:00 12/31/16 17:49 Lactobacillus Acidophilus (Lactinex) 1 tab TID PO 12/29/16 13:00 01/10/17 08:17 Megestrol Acetate (Megace Liq) 400 mg DAILY PO 12/30/16 09:00 01/10/17 08:17 Metoprolol Tartrate (Lopressor) 25 mg Q12HR PO 12/29/16 21:00 01/10/17 08:17 Hydrocortisone (Nutracort 1% Oint) 1 applic BID TOPICAL 12/29/16 13:00 01/10/17 08:17 Sodium Chloride (NS Flush) 2 ml UNSCH PRN IV FLUSH FLUSH AFTER USING IV ACCESS 12/29/16 12:00 01/04/17 21:08 Sodium Chloride (NS Flush) 2 ml BID IV FLUSH 12/29/16 21:00 01/10/17 08:18 Acetaminophen (Tylenol) 650 mg Q4H PRN PO TEMP > 100.4 12/29/16 11:30 01/03/17 00:11 Oxycodone/ Acetaminophen (Percocet 10-325 Mg) 1 tab Q6H PRN PO PAIN SCALE 6 TO 10 12/29/16 11:30 01/08/17 03:19 Morphine Sulfate (Morphine Inj) 2 mg Q3H PRN IV PUSH Pain 3-5; if unable to take PO 12/29/16 11:30 01/07/17 18:18 Morphine Sulfate (Morphine Inj) 4 mg Q3H PRN IV PUSH Pain 6-10;if unable to take PO 12/29/16 11:30 01/09/17 01:00 Senna/Docusate Sodium (Cindy-Colace) 1 tab BID PO 12/29/16 21:00 01/10/17 08:17 Levothyroxine Sodium (Synthroid) 25 mcg DAILY@0600 PO 12/31/16 06:00 01/10/17 04:47 Insulin Human Regular (NovoLIN R SUPPLEMENTAL SCALE) 1 ACHS SLIDING SCALE SQ 01/01/17 21:00 01/09/17 21:00 Insulin Detemir (Levemir Inj) 5 units Q12HR SQ 01/02/17 09:00 01/10/17 08:17 Cefepime HCl 2000 mg/Sodium Chloride 100 ml @ 200 mls/hr Q8HR IV 01/03/17 14:00 01/10/17 04:46 Fluconazole (Diflucan) 200 mg DAILY PO 01/03/17 11:00 01/10/17 08:17 Filgrastim (Neupogen Inj) 480 mcg DAILY@14 SQ 01/03/17 14:00 01/09/17 15:11 Metoprolol Tartrate (Lopressor Inj) 5 mg Q6H PRN IV PUSH RAPID HEART RATE 01/05/17 10:45 01/08/17 03:19 Miscellaneous Information Patient in critical care unit? Ass... [id number] .[id number] 01/05/17 22:30 01/05/17 22:30 Diltiazem HCl 125 mg/Sodium Chloride 125 ml @ 5 mls/hr TITRATE PRN IV Tachycardia 01/06/17 13:30 01/09/17 07:07 Daptomycin 700 mg/ Sodium Chloride 100 ml @ 200 mls/hr Q24H IV 01/06/17 16:00 01/09/17 15:10 Sodium Chloride 1,000 ml @ 84 mls/hr [id number] IV 01/07/17 13:00 01/09/17 23:48 Acetaminophen (Tylenol) 650 mg Q4H PRN PO SEE LABEL COMMENTS 01/09/17 08:00 01/09/17 08:20 Diphenhydramine HCl (Benadryl) 25 mg Q4H PRN PO SEE LABEL COMMENTS 01/09/17 08:00 01/09/17 08:20 Chlorhexidine Gluconate (Peridex 0.12% Liq) 15 ml BID@08,20 MT 01/09/17 20:00 01/10/17 08:17 Fentanyl Citrate 250 ml @ 5 mls/hr TITRATE PRN IV SEDATION 01/09/17 12:30 01/10/17 07:00 Phenylephrine HCl 40 mg/Dextrose 500 ml @ 30 mls/hr TITRATE PRN IV Blood pressure management 01/09/17 13:00 01/10/17 04:50 Objective Remarks GENERAL: Intubated, sedated male supine in bed. SKIN: Warm and dry. HEAD: Normocephalic. EYES: No injection or drainage. NECK: Supple, trachea midline. CARDIOVASCULAR: Regular rate and rhythm RESPIRATORY: anterior nogueira clear. on mechanical ventilation. GASTROINTESTINAL: Abdomen nondistended. EXTREMITIES: No cyanosis NEUROLOGICAL: intubated, sedated Assessment/Plan Assessment Mr. 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 His disease is associated with very complex cytogenetics and unfortunately this predicts a poor outcome and high rates of relapse despite appropriate and aggressive treatment. He is status post induction remission therapy with Hyper-CVAD with Rituxan and intrathecal chemotherapy which was delivered in mid-October of 2016. 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 Plan 1. Initiated on chemotherapy of hyper-CVAD arm B from 12/30/2016 through 2016. He is now cytopenic secondary to myelosuppression from chemotherapy. He will remain on Neupogen 480 g subcutaneous daily for neutropenia. 2. Acute renal failure--check tumor lysis labs. 3. MRSA bacteremia: --on daptomycin. --His infusion port was removed on 01/05/2017. --Repeat blood cultures dated 01/07/2017 also positive for gram-positive cocci. --Blood cultures dated 01/08/2017 showed no growth 4. Progressive respiratory distress with increasing oxygen requirements: --was intubated on 01/09. 5. Pancytopenia: Neutrophils improved to 700 today. Remains on Neupogen. Hgb and platelets ok for today. No transfusion needed at present. patient discussed code status with Dr. Rice previously--> indicated intubation would be agreeable to him, he declines cardiac resuscitation. --Mihai Darby (Patient's Brother in Law) is health care surrogate Attending Statement The exam, history, and the medical decision-making described in the above note were completed with the assistance of the mid-level provider. I reviewed and agree with the findings presented. I attest that I had a [id number] encounter with the patient on the same day, and personally performed and documented my assessment and findings in the medical record. Remains intubated. Afebrile. neutrophil trended up today. No need for transfusion today. Continue abx per ID. Continue supportive care. Ava Akhtar Jan 10, 2017 11:13 Gaurav Castaneda MD Jan 10, 2017 14:42
[2017-01-10] MEDS: SODIUM CHLOR 0.45% 1000 ML INJ 1,000 ML IV SCH (11:33)
[2017-01-10 12:45] LABS: MAGNESIUM 2.4 MG/DL (1.5-2.5); URIC ACID 5.1 MG/DL (2.6-7.2)
[2017-01-10] MEDS ORDERED: IOHEXOL 350 MG/ML 10 ML VIAL (for RAD DIAG) IVCONTRAST ONE (12:48)
--- NOTE | 2017-01-10 13:13 | RADRPT ---
EXAM DATE/TIME: 01/10/2017 12:31 [facility] COMPARISON: CT ABDOMEN & PELVIS W CONTRAST, October 24, 2016, 15:57. INDICATIONS : Sepsis; evaluate for abscess. IV CONTRAST: 99 cc Omnipaque 350 (iohexol) IV ; Cumulative dose for multiple exams. ORAL CONTRAST: No oral contrast ingested. RADIATION DOSE: 20.40 CTDIvol (mGy) ; Combined studies - Thorax/Abdomen/Pelvis MEDICAL HISTORY : Leukemia. Renal failure, acute. Hypertension. SURGICAL HISTORY : None. ENCOUNTER: Initial ACUITY: 1 day PAIN SCALE: Non-responsive LOCATION: lower quadrant TECHNIQUE: Volumetric scanning of the abdomen and pelvis was performed. Using automated exposure control and ad justment of the mA and/or kV according to patient size, radiation dose was kept as low as reasonably achievable to obtain optimal diagnostic quality images. DICOM format image data is available electro nically for review and comparison. FINDINGS: LOWER LUNGS: Small bilateral pleural effusions are noted. Bibasilar patchy opacities are noted consistent with ate lectasis and/or pneumonia. Clinical correlation is recommended. Coronary artery calcifications are no adis. LIVER: Homogeneous density without lesion. There is no dilation of the biliary tree. No calcified gallston es. SPLEEN: Normal size without lesion. PANCREAS: Within normal limits. KIDNEYS: Normal in size and shape. There is no mass, stone or hydronephrosis. ADRENAL GLANDS: Within normal limits. VASCULAR: There is no aortic aneurysm. BOWEL/MESENTERY: Uncomplicated sigmoid diverticulosis is noted. Minimal ascites is noted. ABDOMINAL WALL: Within normal limits. RETROPERITONEUM: There is no lymphadenopathy. BLADDER: The bladder is nondistended and contains a Almazan catheter. REPRODUCTIVE: Within normal limits. INGUINAL: There is no lymphadenopathy or hernia. MUSCULOSKELETAL: Degenerative changes are noted throughout the thoracic and lumbar spine. Multilevel spinal stenoses a re noted within the lumbar spine. CONCLUSION: 1. No evidence of intra-abdominal abscess. 2. Scattered patchy opacities within the visualized lung bases consistent with atelectasis and/or pne umonia. Clinical correlation is recommended. 3. Small bilateral pleural effusions. 4. Uncomplicated sigmoid diverticulosis. 5. Minimal ascites. 6. Coronary artery calcifications. Ishaan Tang MD on January 10, 2017 at 13:05 Board Certified Radiologist. This report was verified electronically.
--- NOTE | 2017-01-10 13:17 | RADRPT ---
EXAM DATE/TIME: 01/10/2017 12:31 [facility] COMPARISON: No previous studies available for comparison. INDICATIONS : Possible septic emboli. IV CONTRAST: 99 cc Omnipaque 350 (iohexol) IV ; Cumulative dose for multiple exams. RADIATION DOSE: 20.40 CTDIvol (mGy) ; Combined studies - Thorax/Abdomen/Pelvis MEDICAL HISTORY : Leukemia. Renal failure, acute. Hypertension. SURGICAL HISTORY : None. ENCOUNTER: Initial ACUITY: 1 day PAIN SCALE: Non-responsive LOCATION: TECHNIQUE: Volumetric scanning of the chest was performed. Using automated exposure control and adjustment of t he mA and/or kV according to patient size, radiation dose was kept as low as reasonably achievable to obtain optimal diagnostic quality images. DICOM format image data is available electronically for review and comparison. Follow-up recommendations for detected pulmonary nodules are based at a minimum on nodule size and pa tient risk factors according to Fleischner Society Guidelines. FINDINGS: LUNGS: Patchy alveolar consolidations are noted bilaterally consistent with probable pneumonia. Bibasilar at electasis may also be present. Subpleural emphysematous blebs are noted bilaterally. PLEURA: Small bilateral pleural effusions are noted. MEDIASTINUM: The heart and great vessels demonstrate no acute abnormality. There is no mediastinal or hilar lymph adenopathy. Coronary artery calcifications are noted. AXILLAE: Within normal limits. No lymphadenopathy. SKELETAL: Within normal limits for patient age. MISCELLANEOUS: The visualized upper abdominal organs demonstrate no acute abnormality. CONCLUSION: 1. Patchy alveolar consolidations bilaterally consistent with probable pneumonia. Clinical correlatio n is recommended. 2. Bibasilar atelectasis may also be present. 3. Subpleural emphysematous blebs are noted bilaterally. 4. Coronary artery calcifications. Ishaan Tang MD on January 10, 2017 at 13:11 Board Certified Radiologist. This report was verified electronically.
--- NOTE | 2017-01-10 13:55 | HHI.IDPN ---
Note Infectious Disease Note ID COVERAGE: Notes reviewed. Patient is lethargic Blood culture 01/08 - no growth. 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 He received induction chemotherapy at that time, and hospitalization complicated by neutropenic fevers. He also developed a rash and subsequently underwent skin biopsy which revealed vacuolar interface dermatitis. Differential diagnosis of that biopsy included fixed drug eruption, erythema multiforme, GVHD, and conncetive tissue disease. His skin rash improved with systemic corticosteroids. He has been admitted for consolidation chemotherapy. He received MTX and cytarabine. Since yesterday, he started having fevers. he is complaining of body malaise, diffuse body aches, and neck pain. Denies headache or photophobia. No respiratory complaints. No GI or complaints. His skin is better, and less itchy. Antibiotics Cubicin Cefepime Diflucan Current Medications Medications (Trade) Dose Ordered Sig/Daniel Route PRN Reason Start Time Stop Time Status Last Admin Dose Admin Metoclopramide HCl (Reglan Inj) 5 mg Q6H PRN IV PUSH NAUSEA OR VOMITING 12/29/16 08:00 Prednisone (Deltasone) 20 mg DAILY PO 12/29/16 09:00 01/10/17 08:17 Pantoprazole Sodium (Protonix) 40 mg DAILY PO 12/29/16 09:00 01/10/17 08:17 Allopurinol (Zyloprim) 200 mg DAILY PO 12/30/16 09:00 01/10/17 08:17 Calcium/Vitamin D (Oscal-D 250-125) 500 mg Q12HR PO 12/29/16 21:00 01/10/17 08:17 Diltiazem HCl (Cardizem Cd) 240 mg DAILY PO 12/30/16 09:00 Future hold 01/10/17 08:17 Diphenhydramine HCl (Benadryl) 25 mg Q4H PRN PO SEE LABEL COMMENTS 12/29/16 11:00 12/31/16 17:49 Lactobacillus Acidophilus (Lactinex) 1 tab TID PO 12/29/16 13:00 01/10/17 08:17 Megestrol Acetate (Megace Liq) 400 mg DAILY PO 12/30/16 09:00 01/10/17 08:17 Metoprolol Tartrate (Lopressor) 25 mg Q12HR PO 12/29/16 21:00 01/10/17 08:17 Hydrocortisone (Nutracort 1% Oint) 1 applic BID TOPICAL 12/29/16 13:00 01/10/17 08:17 Sodium Chloride (NS Flush) 2 ml UNSCH PRN IV FLUSH FLUSH AFTER USING IV ACCESS 12/29/16 12:00 01/04/17 21:08 Sodium Chloride (NS Flush) 2 ml BID IV FLUSH 12/29/16 21:00 01/10/17 08:18 Acetaminophen (Tylenol) 650 mg Q4H PRN PO TEMP > 100.4 12/29/16 11:30 01/03/17 00:11 Ondansetron HCl (Zofran Inj) 4 mg Q6H PRN IVP NAUSEA OR VOMITING 12/29/16 11:30 Prochlorperazine (Compazine Supp) 25 mg Q12H PRN RECTAL NAUSEA OR VOMITING 12/29/16 11:30 Acetaminophen (Tylenol) 650 mg Q6H PRN PO PAIN SCALE 1 TO 2 12/29/16 11:30 Oxycodone/ Acetaminophen (Percocet 5-325 Mg) 1 tab Q6H PRN PO PAIN SCALE 3 TO 5 12/29/16 11:30 Oxycodone/ Acetaminophen (Percocet 10-325 Mg) 1 tab Q6H PRN PO PAIN SCALE 6 TO 10 12/29/16 11:30 01/08/17 03:19 Morphine Sulfate (Morphine Inj) 2 mg Q3H PRN IV PUSH Pain 3-5; if unable to take PO 12/29/16 11:30 01/07/17 18:18 Morphine Sulfate (Morphine Inj) 4 mg Q3H PRN IV PUSH Pain 6-10;if unable to take PO 12/29/16 11:30 01/09/17 01:00 Naloxone HCl (Narcan Inj) 0.4 mg UNSCH PRN IV PUSH SEE LABEL COMMENTS 12/29/16 11:45 Senna/Docusate Sodium (Cindy-Colace) 1 tab BID PO 12/29/16 21:00 01/10/17 08:17 Magnesium Hydroxide (Milk Of Magnesia Liq) 30 ml Q12H PRN PO Mild constipation 12/29/16 11:45 Sennosides (Senokot) 17.2 mg Q12H PRN PO Moderate constipation 12/29/16 11:45 Bisacodyl (Dulcolax Supp) 10 mg DAILY PRN RECTAL SEVERE CONSITIPATION 12/29/16 11:45 Lactulose (Lactulose Liq) 30 ml DAILY PRN PO SEVERE CONSITIPATION 12/29/16 11:45 Levothyroxine Sodium (Synthroid) 25 mcg DAILY@0600 PO 12/31/16 06:00 01/10/17 04:47 Insulin Human Regular (NovoLIN R SUPPLEMENTAL SCALE) 1 ACHS SLIDING SCALE SQ 01/01/17 21:00 01/10/17 11:45 Insulin Detemir (Levemir Inj) 5 units Q12HR SQ 01/02/17 09:00 01/10/17 08:17 Cefepime HCl 2000 mg/Sodium Chloride 100 ml @ 200 mls/hr Q8HR IV 01/03/17 14:00 01/10/17 04:46 Fluconazole (Diflucan) 200 mg DAILY PO 01/03/17 11:00 01/10/17 08:17 Filgrastim (Neupogen Inj) 480 mcg DAILY@14 SQ 01/03/17 14:00 01/09/17 15:11 Metoprolol Tartrate (Lopressor Inj) 5 mg Q6H PRN IV PUSH RAPID HEART RATE 01/05/17 10:45 01/08/17 03:19 Miscellaneous Information Patient in critical care unit? Ass... Q361D .XX 01/05/17 22:30 01/05/17 22:30 Chlorhexidine Gluconate (Chlorhexidine 2% Cloth) 3 pack UNSCH PRN TOPICAL HYGIENIC CARE 01/05/17 22:30 01/10/17 22:27 Diltiazem HCl 125 mg/Sodium Chloride 125 ml @ 5 mls/hr TITRATE PRN IV Tachycardia 01/06/17 13:30 01/09/17 07:07 Daptomycin 700 mg/ Sodium Chloride 100 ml @ 200 mls/hr Q24H IV 01/06/17 16:00 01/09/17 15:10 Sodium Chloride 1,000 ml @ 84 mls/hr [id number] IV 01/07/17 13:00 01/10/17 11:33 Acetaminophen (Tylenol) 650 mg Q4H PRN PO SEE LABEL COMMENTS 01/09/17 08:00 01/09/17 08:20 Diphenhydramine HCl (Benadryl) 25 mg Q4H PRN PO SEE LABEL COMMENTS 01/09/17 08:00 01/09/17 08:20 Chlorhexidine Gluconate (Peridex 0.12% Liq) 15 ml BID@08,20 MT 01/09/17 20:00 01/10/17 08:17 Fentanyl Citrate 250 ml @ 5 mls/hr TITRATE PRN IV SEDATION 01/09/17 12:30 01/10/17 07:00 Phenylephrine HCl 40 mg/Dextrose 500 ml @ 30 mls/hr TITRATE PRN IV Blood pressure management 01/09/17 13:00 01/10/17 04:50 Terbutaline Sulfate (Brethine Inj) 1 mg UNSCH PRN SQ For Extravasation 01/09/17 11:45 Lines Port - removed 01/05 Past Medical History 1. B-cell ALL ([place] chromosome negative). 2. Acute kidney failure (now recovered). 3. 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 4. Severe rash, currently present. 5. Protein calorie malnutrition. 6. Chemotherapy-related myelosuppression. 7. Atrial fibrillation. Past Surgical History 1. Appendectomy. 2. Benign polyp removal from the throat. 3. Lumbar puncture with intrathecal chemotherapy injection. 4. Port placement. 5. Bone marrow biopsy and aspiration. 6. Skin biopsy Allergies: Coded Allergies: No Known Allergies (Unverified , 10/24/16) Vital Signs Date Time Temp Pulse Resp B/P (MAP) Pulse Ox O2 Delivery O2 Flow Rate FiO2 01/10/17 13:00 83 16 107/56 (73) 90 01/10/17 12:51 86 17 109/58 (75) 88 01/10/17 12:45 84 18 89/51 (64) 94 01/10/17 12:30 87 18 105/52 (69) 91 01/10/17 12:15 84 23 113/57 (75) 88 01/10/17 12:09 89 19 102/52 (69) 90 01/10/17 12:00 98.2 86 19 113/54 (73) 90 01/10/17 12:00 86 01/10/17 12:00 95 100 01/10/17 12:00 75 01/10/17 11:45 83 19 107/57 (74) 90 01/10/17 11:36 89 65 01/10/17 11:30 84 19 111/61 (78) 90 01/10/17 11:15 87 19 111/56 (74) 90 01/10/17 11:00 85 18 131/58 (82) 90 01/10/17 10:15 85 21 99/58 (72) 90 01/10/17 10:00 78 01/10/17 10:00 78 19 101/55 (70) 89 01/10/17 09:47 84 22 94/61 (72) 90 01/10/17 09:30 84 23 97/58 (71) 91 01/10/17 09:15 79 28 91/55 (67) 91 01/10/17 09:00 87 30 98/52 (67) 91 01/10/17 08:45 91 27 110/56 (74) 92 01/10/17 08:30 95 30 122/58 (79) 93 01/10/17 08:30 95 122/58 01/10/17 08:15 96 30 113/60 (77) 91 01/10/17 08:13 92 60 01/10/17 08:00 98.8 97 26 139/65 (89) 92 01/10/17 08:00 97 01/10/17 08:00 60 01/10/17 07:45 94 37 148/79 (102) 96 01/10/17 07:30 98 36 144/68 (93) 96 01/10/17 07:15 96 37 127/61 (83) 95 01/10/17 07:00 95 Mechanical Ventilator 50 01/10/17 07:00 91 32 138/60 (86) 95 01/10/17 07:00 91 138/60 01/10/17 06:00 95 01/10/17 04:50 84 149/68 01/10/17 04:20 96 50 01/10/17 04:00 100 01/10/17 04:00 99.4 95 26 143/64 (90) 96 01/10/17 04:00 95 01/10/17 02:00 89 01/10/17 01:15 98 70 01/10/17 00:00 81 01/10/17 00:00 100 01/10/17 00:00 98.2 81 22 122/63 (82) 99 01/09/17 23:47 84 122/63 01/09/17 22:13 99 100 01/09/17 22:00 83 01/09/17 21:11 78 120/56 01/09/17 21:07 98.4 77 29 120/56 100 01/09/17 20:15 99 100 01/09/17 20:00 100 01/09/17 20:00 98.4 81 20 82/49 (60) 99 01/09/17 20:00 81 01/09/17 19:00 99 Mechanical Ventilator 100 01/09/17 18:00 85 01/09/17 17:06 98 100 01/09/17 16:25 86 82/46 01/09/17 16:00 99.1 90 24 96/43 (60) 95 01/09/17 16:00 86 01/09/17 14:00 99 Laboratory Tests Test 01/09/17 06:22 01/10/17 05:05 White Blood Count 0.2 TH/MM3 1.1 TH/MM3 Red Blood Count 2.17 MIL/MM3 2.98 MIL/MM3 Hemoglobin 6.9 GM/DL 9.5 GM/DL Hematocrit 20.2 % 27.9 % Mean Corpuscular Volume 93.1 FL 93.7 FL Mean Corpuscular Hemoglobin 32.0 PG 31.9 PG Mean Corpuscular Hemoglobin Concent 34.4 % 34.0 % Red Cell Distribution Width 21.2 % 20.3 % Platelet Count 3 TH/MM3 24 TH/MM3 Mean Platelet Volume 9.9 FL 8.9 FL CBC Comment AUTO DIFF AUTO DIFF Differential Total Cells Counted 25 50 Neutrophils % (Manual) 4 % 12 % Band Neutrophils % 8 % 30 % Lymphocytes % 52 % 22 % Monocytes % 36 % 16 % Neutrophils # (Manual) 0.0 TH/MM3 0.7 TH/MM3 Differential Comment FINAL DIFF MANUAL FINAL DIFF MANUAL Dohle Bodies PRESENT Platelet Estimate RARE LOW Platelet Morphology Comment NORMAL NORMAL Eosinophils % 2 % Metamyelocytes 16 % Myelocytes 2 % Nucleated Red Blood Cells 2 /100 WBC Acanthocytes OCC Laboratory Tests Test 01/09/17 06:22 01/10/17 05:05 Blood Urea Nitrogen 59 MG/DL 76 MG/DL Creatinine 1.46 MG/DL 2.37 MG/DL Random Glucose 162 MG/DL 243 MG/DL Total Protein 5.9 GM/DL 5.6 GM/DL Albumin 2.1 GM/DL 1.9 GM/DL Calcium Level 8.2 MG/DL 8.0 MG/DL Phosphorus Level 2.3 MG/DL 5.0 MG/DL Magnesium Level 2.3 MG/DL 2.4 MG/DL Alkaline Phosphatase 61 U/L 58 U/L Aspartate Amino Transf (AST/SGOT) 71 U/L 795 U/L Alanine Aminotransferase (ALT/SGPT) 49 U/L 597 U/L Total Bilirubin 4.9 MG/DL 6.0 MG/DL Direct Bilirubin 3.7 MG/DL Sodium Level 144 MEQ/L 139 MEQ/L Potassium Level 3.6 MEQ/L 4.4 MEQ/L Chloride Level 113 MEQ/L 109 MEQ/L Carbon Dioxide Level 20.5 MEQ/L 15.9 MEQ/L Anion Gap 11 MEQ/L 14 MEQ/L Estimat Glomerular Filtration Rate 48 ML/MIN 27 ML/MIN Indirect Bilirubin 1.2 MG/DL Total Creatine Kinase 129 U/L 116 U/L Uric Acid 5.1 MG/DL Lactate Dehydrogenase 496 U/L Microbiology Date/Time Source Procedure Growth Status 01/08/17 07:45 Blood Peripheral Aerobic Blood Culture - Preliminary NO GROWTH IN 2 DAYS Resulted 01/08/17 07:45 Blood Peripheral Anaerobic Blood Culture - Preliminary NO GROWTH IN 2 DAYS Resulted Microbiology Date/Time Source Procedure Growth Status 01/08/17 07:45 Blood Peripheral Aerobic Blood Culture Pending Received 01/08/17 07:45 Blood Peripheral Anaerobic Blood Culture Pending Received 01/07/17 12:00 Blood Peripheral Aerobic Blood Culture - Preliminary NO GROWTH IN 1 DAY Resulted 01/07/17 12:00 Blood Peripheral Anaerobic Blood Culture - Preliminary NO GROWTH IN 1 DAY Resulted 01/07/17 11:00 Blood Peripheral Aerobic Blood Culture - Preliminary NO GROWTH IN 1 DAY Resulted 01/07/17 11:00 Blood Peripheral Anaerobic Blood Culture - Preliminary NO GROWTH IN 1 DAY Resulted 01/05/17 15:14 Blood Peripheral Aerobic Blood Culture - Final S. Aureus Mrsa Resulted 01/05/17 15:14 Blood Peripheral Anaerobic Blood Culture - Preliminary NO GROWTH IN 2 DAYS Resulted 01/05/17 16:52 Catheter Tip Subclavian Wound Culture - Final S. Aureus Mrsa Complete Imaging Chest CT 01/10/17 0000 Signed Impressions: Service Date/Time: Tuesday, January 10, 2017 12:31 - CONCLUSION: 1. Patchy alveolar consolidations bilaterally consistent with probable pneumonia. Clinical correlation is recommended. 2. Bibasilar atelectasis may also be present. 3. Subpleural emphysematous blebs are noted bilaterally. 4. Coronary artery calcifications. Ishaan Tang MD Abdomen/Pelvis CT 01/10/17 0000 Signed Impressions: Service Date/Time: Tuesday, January 10, 2017 12:31 - CONCLUSION: 1. No evidence of intra-abdominal abscess. 2. Scattered patchy opacities within the visualized lung bases consistent with atelectasis and/or pneumonia. Clinical correlation is recommended. 3. Small bilateral pleural effusions. 4. Uncomplicated sigmoid diverticulosis. 5. Minimal ascites. 6. Coronary artery calcifications. Ishaan Tang MD Abdomen X-Ray 01/06/17 0000 Signed Impressions: Service Date/Time: Friday, January 06, 2017 08:29 - CONCLUSION: No dilated loops of small or large bowel.. Dion Alford MD Chest X-Ray 01/05/17 1021 Signed Impressions: Service Date/Time: Thursday, January 05, 2017 10:34 - CONCLUSION: 1. Minimal bibasilar airspace disease, likely atelectasis. 2. Otherwise, no acute abnormality or significant interval change. Armando Martínez MD Neck CT 01/05/17 0000 Signed Impressions: Service Date/Time: Thursday, January 05, 2017 11:54 - CONCLUSION: Negative CT soft tissue neck with contrast. Dion Alford MD Head CT 01/05/17 0000 Signed Impressions: Service Date/Time: Thursday, January 05, 2017 11:54 - CONCLUSION: Negative noncontrast CT Wander Hodges MD GENERAL: Patient is in no acute distress. Lethargic. HEENT: No icterus. NECK: Supple. LUNGS: Marked decreased breath sounds. CARDIAC: Regular rate and rhythm. ABDOMEN: Soft, non tender. EXTREMITIES: No CCE. SKIN: No rash. IMPRESSION MRSA sepsis, high grade - port removed 01/05 - BC (+) 01/02-01/05 - echo not good study Fevers, patient with ALL, receiving consolidation chemotherapy - due to sepsis - temps low grade Lethargic and SOB, due to sepsis ALL, on consolidation chemo Neutropenia Renal insufficiency, worse Skin rash Oral thrush RECOMMENDATION Continue Cubicin for MRSA (Vanco JENIFER 2.0, and BC still positive) - follow CPK while on Cubicin Follow repeat BC Continue other empiric Abx: Cefepime, Diflucan, until neutropenia resolves Monitor temps Monitor counts Neutropenic precautions Monitor progress Gene Hewitt MD Jan 10, 2017 13:55
[2017-01-10] MEDS: FILGRASTIM 480 MCG/1.6 ML VIAL SQ SCH (13:59)
--- NOTE | 2017-01-10 16:53 | HHI.CCPN ---
Subjective Remarks/Hospital Course Hospital Course: This is a 71-year-old male with a history of B-cell lymphoma undergoing chemotherapy who was originally admitted to the hospital with febrile neutropenia and was found to have MRSA bacteremia. He is maintained on IV vancomycin. Despite this he is been increasingly more toxic appearing. His respiratory rate is been increasing and he is experiencing increasing respiratory distress. The patient tells me he feels fatigued. He endorses fever, chills, shortness of breath. He says he just doesn't feel well. Throughout the day stays become increasingly dyspneic with an rising respiratory rate. His ABG demonstrates a severe metabolic acidosis with a base deficit of 10. His blood cultures have been positive for 3 days despite adequate therapy. He does have a Port-A-Cath that remains in place. Critical care medicine is consulted to evaluate and manage his respiratory distress and persistent bacteremia, severe neutropenic sepsis 01/06: continues to be in significant respiratory distress with a severe non- gapped metabolic acidosis. also has been on diamox since 12/29. bicarbonate drip started this morning. lactate still < 2. hemodynamics stable. clinically appears hypovolemic. tachycardia persists. port removed yesterday. blood cultures continue to be positive for MRSA. on vancomycin with appropriate trough. 01/07: Brother at bedside. Arousable and will follow commands. Very lethargic however somewhat improved from yesterday according to RN. Currently afebrile. Very poor appetite. 01/08: Tmax 100. Currently 99.4. More awake and alert. Very poor appetite. Noted Doppler placement recommended per hematology however platelets are currently at 10. 01/09: clinically declined overnight. now on NRB mask. still talking and answering questions, but now dyspneic and in more distress. talked with his family and got palliative care involved and family requests continuation of full code and aggressive care. intubated (see separate procedure note). post- intubation, hypotensive and started on phenylephrine and given 1L LR bolus. remains very critically ill and declining. Subjective: 01/10: no improvements. intermittently on low-dose phenylephrine. Cr worsening. Uric acid slightly elevated. high phos levels. ?early tumor lysis?. remains with significant encephalopathy and respiratory failure. Objective Vital Signs Date Time Temp Pulse Resp B/P (MAP) Pulse Ox O2 Delivery O2 Flow Rate FiO2 01/10/17 16:26 94 100 01/10/17 14:00 84 01/10/17 13:00 16 107/56 (73) 01/10/17 12:00 98.2 01/10/17 07:00 Mechanical Ventilator 01/09/17 08:16 8.00 Intake and Output 01/10/17 01/10/17 01/11/17 08:00 16:00 00:00 Intake Total 871 ml 599 ml Output Total 350 ml Balance 521 ml 599 ml Result Diagram: 01/10/17 0505 01/10/17 0505 Imaging Last Impressions Abdomen X-Ray 01/06/17 0000 Signed Impressions: Service Date/Time: Friday, January 06, 2017 08:29 - CONCLUSION: No dilated loops of small or large bowel.. Dion Alford MD Chest X-Ray 01/05/17 1021 Signed Impressions: Service Date/Time: Thursday, January 05, 2017 10:34 - CONCLUSION: 1. Minimal bibasilar airspace disease, likely atelectasis. 2. Otherwise, no acute abnormality or significant interval change. Armando Martínez MD Neck CT 01/05/17 0000 Signed Impressions: Service Date/Time: Thursday, January 05, 2017 11:54 - CONCLUSION: Negative CT soft tissue neck with contrast. Dion Alford MD Head CT 01/05/17 0000 Signed Impressions: Service Date/Time: Thursday, January 05, 2017 11:54 - CONCLUSION: Negative noncontrast CT Wander Hodges MD Objective Remarks GENERAL: 71-year-old male, intubated, sedated. HEENT: Normocephalic. Atraumatic. Pupils equal, round, reactive about 3 mm bilaterally, conjugate. Mucous membranes are moderately moist and pink. NECK: Trachea is midline. There is no JVD. CHEST: Incision over port removal/left chest is clean dry and intact. intubated , fio2 40%. peep 5. PRVC mode. CARDIOVASCULAR: IRR. afib by tele. ABDOMEN: Soft, nontender, nondistended. No guarding. MUSCULOSKELETAL: Pulses 2+. No peripheral edema. NEUROLOGICAL: RASS -2/-3. Moves all 4 extremity spontaneously. intermittently following commands. A/P Assessment and Plan Assessment: 71yM with B cell lymphoma undergoing chemotherapy with MRSA bacteremia which is persistent, severe sepsis, acidosis, acute kidney injury and acute hypoxic and hypercarbic respiratory failure requiring intubation and mechanical ventilation. Some labs suggestive of early possible tumor lysis syndrome. remains pancytopenic. very critically ill with no improvements from yesterday. off pathway. Neuro/Psych: Acute encephalopathy/toxic metabolic fentanyl for goal RASS -2. daily sedation vacation. CT brain/ 01/05 with no acute findings. CV: A. fib with RVR Hypotension associated with sedation Currently on metoprolol 25 mg twice a day, diltiazem extended release 240 mg daily diltiazem drip Rate currently controlled. Appears a flutter currently 2-D echocardiogram 01/04 revealed EF 40-45%. Decreased LV systolic function. Cannot exclude vegetations. phenylephrine to maintain map > 65 mmHg. Resp: Acute hypoxic and hypercarbic respiratory failure intubated 01/09 for worsening respiratory distress and hypoxia vent bundle/hob at 30 degrees/nebs start daily SBTs wean fio2 for spo2 > 90% GI: Acute protein calorie malnutrition- severe continue TF. nutrition consult daily [facility] ICU electrolyte protocol. : Continue álvarez catheter given FAIZA and now poor mental status. Endo: Hypothyroidism Continue levothyroxine 25 g daily Continue allopurinol 200 mg daily for tumor lysis syndrome Renal: Acute kidney injury Monitor urine output Accurate I's and O's Currently on one half normal saline at 84 cc an hour Heme: History of B-cell CLL Dilaudid, a negative status post hyper CVAD/rituximab and intrathecal chemotherapy Pancytopenia including leukopenia, normocytic anemia thrombocytopenia Transfuse to thresholds per Dr. Rice, hematology receiving platelets today. ID: MRSA bacteremia - persistent. Current regimen daptomycin 700 mg IV every 24 hours and cefepime 2 g IV every 8 hours and fluconazole 200 mg daily Followed by infectious disease Likely will need JOSETTE once stable, but holding off given thrombocytopenia and neutropenia new LLL infiltrate on CXR, will obtain sputum culture. MSK: Osteoarthritis Continuing calcium carbonate vitamin D FEN: Hypokalemia ICU electrolyte protocol. daily BMP Access - Utilize peripheral IV. Central line if indicated Prophylaxis - GI - pantoprazole - DVT - SCD/holding pharmacological prophylaxis in light of thrombocytopenia Critical Care: The total critical care time was 31 minutes. Time to perform other separately billable procedures was not included in the critical care time. Grabiel Elliott MD Jan 10, 2017 16:53
[2017-01-10] MEDS: DAPTOmycin INJ 700 MG in SODIUM CHLORIDE 0.9% INJ 100 ML IV SCH (17:00)
--- NOTE | 2017-01-10 23:49 | RADRPT ---
EXAM DATE/TIME: 01/10/2017 22:12 [place] COMPARISON: CT ABDOMEN & PELVIS W CONTRAST, January 10, 2017, 12:31. INDICATIONS : Increased lab values. MEDICAL HISTORY : Hypertension. Neck pain. Dyspnea. Dialysis. Renal failure. Leukemia. Back pain. Blood dyscrasias. Thrombocytopenia. MRSA. SURGICAL HISTORY : Appendectomy. ENCOUNTER: Subsequent ACUITY: 1 day PAIN SCORE: Nonresponsive. LOCATION: Bilateral upper quadrant MEASUREMENTS: LIVER: 17.1 cm length COMMON DUCT: 2 mm RIGHT KIDNEY: 10.3 x 5.5 x 5.8 cm SPLEEN: 13.3 cm length FINDINGS: LIVER: Normal echotexture without focal lesion or ductal dilatation. COMMON DUCT: No intraluminal mass or stone visualized. GALLBLADDER: Wall measures about 5 mm and there is small pericholecystic fluid. PANCREAS: The visualized portions are within normal limits. RIGHT KIDNEY: No hydronephrosis, stone or mass. SPLEEN: No focal lesion. Bilateral pleural effusions are noted. CONCLUSION: 1. Mild thickening and small surrounding fluid of the gallbladder, nonspecific but not uncommonly see n in the setting of chronic disease. 2. Upper limits of normal size liver and spleen. No focal abnormality. Balwinder Smith MD on January 10, 2017 at 23:45 Board Certified Radiologist. This report was verified electronically.
[2017-01-11] VITALS (17 sets, daily range): BP systolic 89–115; BP diastolic 54–58; PULSE 78–103; RESP 16–21; TEMP 97.2–98.4; O2SAT 92–98
[2017-01-11] MEDS: SODIUM CHLOR 0.45% 1000 ML INJ 1,000 ML IV SCH ×2 (00:41→12:54)
[2017-01-11] MEDS: CEFEPIME INJ 2,000 MG in SODIUM CHLORIDE 0.9% INJ 100 ML IV SCH (05:39)
[2017-01-11] MEDS: LEVOTHYROXINE SODIUM 25 MCG TAB PO SCH (05:39)
[2017-01-11 05:40] LABS: HEMATOCRIT 26.8 % (39.0-51.0); MEAN CORPUSCULAR HEMOGLOBIN 31.5 PG (27.0-34.0); MEAN CORPUSCULAR HGB CONC 33.5 % (32.0-36.0); RED BLOOD COUNT 2.85 MIL/MM3 (4.50-5.90); RED CELL DISTRIBUTION WIDTH 20.4 % (11.6-17.2); WHITE BLOOD COUNT 2.3 TH/MM3 (4.0-11.0)
[2017-01-11 05:44] LABS: HEMO FLAGS AUTO DIFF
[2017-01-11 05:50] LABS: PLATELET COUNT 7 TH/MM3 (150-450)
[2017-01-11] MEDS ORDERED: SODIUM CHLOR 0.9% 250 ML INJ 250 ML IV ONE (08:15)
[2017-01-11 08:28] LABS: MYELOCYTES 1 % (0-0)
[2017-01-11 08:30] LABS: BANDS 28 % (0-6); DOHLE BODIES PRESENT (NONE SEEN); METAMYELOCYTES 9 % (0-1); NEUTROPHIL # MANUAL DIFF 1.9 TH/MM3 (1.8-7.7); PLATELET ESTIMATE SMEAR RARE (NORMAL); PLATELET MORPHOLOGY NORMAL (NORMAL); POLYS (SEG NEUTROPHILS) 43 % (16-70); TOXIC GRANULATION 2+ (NORMAL); WBC DIFF SAMPLE 100
[2017-01-11 08:32] LABS: SCAN/DIFF FINAL DIFF MANUAL
[2017-01-11] MEDS: DILTIAZEM-CD 240 MG CAP ER PO SCH (09:00)
[2017-01-11] MEDS: PANTOPRAZOLE SOD 40 MG DELAYED RELEASE TAB PO SCH (09:00)
[2017-01-11] MEDS: HYDROCORTISONE 1% OINT 30 GM TUBE TOPICAL SCH (09:00)
[2017-01-11] MEDS: SODIUM CHLORIDE 0.9% FLUSH 10 ML FLUSH IV FLUSH SCH (09:00)
[2017-01-11] MEDS: METOPROLOL TARTRATE 25 MG TAB PO SCH (09:00)
[2017-01-11] MEDS: CHLORHEXIDINE 0.12% (ORAL KIT) 15 ML CUP MT SCH (09:54)
[2017-01-11] MEDS: INSULIN NovoLIN REGULAR SUPPLEMENTAL SCALE SQ SCH ×2 (09:54→12:00)
[2017-01-11] MEDS: CALCIUM/VITAMIN D 250 MG/125 U TAB PO SCH (09:55)
[2017-01-11] MEDS: predniSONE 20 MG TAB PO SCH (09:55)
[2017-01-11] MEDS: ALLOPURINOL 100 MG TAB PO SCH (09:55)
[2017-01-11] MEDS: LACTOBACILLUS ACIDOPHILUS TAB PO SCH ×2 (09:55→13:23)
[2017-01-11] MEDS: DOCUSATE SODIUM 50 MG/SENNA 8.6 MG TAB PO SCH (09:55)
[2017-01-11] MEDS: FLUCONAZOLE 200 MG TAB PO SCH (09:55)
[2017-01-11] MEDS: MEGESTROL ACETATE SUSP 400 MG/10 ML CUP PO SCH (09:58)
[2017-01-11] MEDS: INSULIN DETEMIR 100 UNITS/ML VIAL SQ SCH (09:58)
[2017-01-11] MEDS: fentaNYL DRIP 250 ML IV PRN (10:00)
--- NOTE | 2017-01-11 10:43 | PD.ONC.PN ---
Subjective Subjective Remarks Afebrile overnight. Patient intubated, sedated. Objective Data Date Time Temp Pulse Resp B/P (MAP) Pulse Ox O2 Delivery O2 Flow Rate FiO2 01/11/17 08:43 92 70 01/11/17 06:00 87 01/11/17 05:30 94 55 01/11/17 04:15 95 70 01/11/17 04:00 100 01/11/17 04:00 97.4 80 18 95/55 (68) 94 01/11/17 04:00 80 01/11/17 03:23 97 70 01/11/17 02:00 78 01/11/17 01:58 98 80 01/11/17 00:00 80 01/11/17 00:00 97.2 80 16 89/55 (66) 97 01/11/17 00:00 100 01/10/17 22:14 99 90 01/10/17 22:00 78 01/10/17 20:00 98.0 75 16 87/54 (65) 94 01/10/17 20:00 100 01/10/17 20:00 75 01/10/17 19:50 94 100 01/10/17 19:00 93 Mechanical Ventilator 50 01/10/17 18:00 78 01/10/17 17:15 80 16 101/52 (68) 93 01/10/17 17:02 79 16 86/54 (65) 93 01/10/17 17:00 81 17 93 01/10/17 16:45 78 16 80/51 (61) 93 01/10/17 16:30 79 16 89/50 (63) 93 01/10/17 16:26 94 100 01/10/17 16:15 81 17 89/55 (66) 93 01/10/17 16:00 100 01/10/17 16:00 98.6 80 17 93/58 (70) 93 01/10/17 16:00 80 01/10/17 15:45 80 16 88/53 (65) 93 01/10/17 15:30 79 17 106/56 (73) 93 01/10/17 15:15 82 16 108/53 (71) 93 01/10/17 15:00 82 17 92/54 (67) 93 01/10/17 14:45 80 17 107/61 (76) 94 01/10/17 14:30 87 16 99/51 (67) 93 01/10/17 14:15 82 16 105/58 (74) 94 01/10/17 14:00 84 01/10/17 14:00 84 17 98/51 (67) 93 01/10/17 13:00 83 16 107/56 (73) 90 01/10/17 12:51 86 17 109/58 (75) 88 01/10/17 12:45 84 18 89/51 (64) 94 01/10/17 12:30 87 18 105/52 (69) 91 01/10/17 12:15 84 23 113/57 (75) 88 01/10/17 12:09 89 19 102/52 (69) 90 01/10/17 12:00 98.2 86 19 113/54 (73) 90 01/10/17 12:00 86 01/10/17 12:00 95 100 01/10/17 12:00 75 01/10/17 11:45 83 19 107/57 (74) 90 01/10/17 11:36 89 65 01/10/17 11:30 84 19 111/61 (78) 90 01/10/17 11:15 87 19 111/56 (74) 90 01/10/17 11:00 85 18 131/58 (82) 90 01/11/17 01/11/17 01/11/17 07:00 15:00 23:00 Intake Total 1549 ml Output Total 200 ml Balance 1349 ml Result Diagram: 01/11/17 7810 01/10/17 6246 Laboratory Results Laboratory Tests Test 01/11/17 04:50 White Blood Count 2.3 TH/MM3 Red Blood Count 2.85 MIL/MM3 Hemoglobin 9.0 GM/DL Hematocrit 26.8 % Mean Corpuscular Volume 94.0 FL Mean Corpuscular Hemoglobin 31.5 PG Mean Corpuscular Hemoglobin Concent 33.5 % Red Cell Distribution Width 20.4 % Platelet Count 7 TH/MM3 Mean Platelet Volume 8.9 FL CBC Comment AUTO DIFF Differential Total Cells Counted 100 Neutrophils % (Manual) 43 % Band Neutrophils % 28 % Lymphocytes % 7 % Monocytes % 12 % Neutrophils # (Manual) 1.9 TH/MM3 Metamyelocytes 9 % Myelocytes 1 % Differential Comment FINAL DIFF MANUAL Toxic Granulation 2+ Dohle Bodies PRESENT Platelet Estimate RARE Platelet Morphology Comment NORMAL Uric Acid 5.4 MG/DL Administered Medications Medications (Trade) Dose Ordered Sig/Daniel Route PRN Reason Start Time Stop Time Status Last Admin Dose Admin Prednisone (Deltasone) 20 mg DAILY PO 12/29/16 09:00 01/11/17 09:55 Pantoprazole Sodium (Protonix) 40 mg DAILY PO 12/29/16 09:00 01/10/17 08:17 Allopurinol (Zyloprim) 200 mg DAILY PO 12/30/16 09:00 01/11/17 09:55 Calcium/Vitamin D (Oscal-D 250-125) 500 mg Q12HR PO 12/29/16 21:00 01/11/17 09:55 Diltiazem HCl (Cardizem Cd) 240 mg DAILY PO 12/30/16 09:00 Future hold 01/10/17 08:17 Diphenhydramine HCl (Benadryl) 25 mg Q4H PRN PO SEE LABEL COMMENTS 12/29/16 11:00 12/31/16 17:49 Lactobacillus Acidophilus (Lactinex) 1 tab TID PO 12/29/16 13:00 01/11/17 09:55 Megestrol Acetate (Megace Liq) 400 mg DAILY PO 12/30/16 09:00 01/11/17 09:58 Metoprolol Tartrate (Lopressor) 25 mg Q12HR PO 12/29/16 21:00 01/10/17 20:25 Hydrocortisone (Nutracort 1% Oint) 1 applic BID TOPICAL 12/29/16 13:00 01/10/17 21:00 Sodium Chloride (NS Flush) 2 ml UNSCH PRN IV FLUSH FLUSH AFTER USING IV ACCESS 12/29/16 12:00 01/04/17 21:08 Sodium Chloride (NS Flush) 2 ml BID IV FLUSH 12/29/16 21:00 01/11/17 09:00 Acetaminophen (Tylenol) 650 mg Q4H PRN PO TEMP > 100.4 12/29/16 11:30 01/03/17 00:11 Oxycodone/ Acetaminophen (Percocet 10-325 Mg) 1 tab Q6H PRN PO PAIN SCALE 6 TO 10 12/29/16 11:30 01/08/17 03:19 Morphine Sulfate (Morphine Inj) 2 mg Q3H PRN IV PUSH Pain 3-5; if unable to take PO 12/29/16 11:30 01/07/17 18:18 Morphine Sulfate (Morphine Inj) 4 mg Q3H PRN IV PUSH Pain 6-10;if unable to take PO 12/29/16 11:30 01/09/17 01:00 Senna/Docusate Sodium (Cindy-Colace) 1 tab BID PO 12/29/16 21:00 01/11/17 09:55 Levothyroxine Sodium (Synthroid) 25 mcg DAILY@0600 PO 12/31/16 06:00 01/11/17 05:39 Insulin Human Regular (NovoLIN R SUPPLEMENTAL SCALE) 1 ACHS SLIDING SCALE SQ 01/01/17 21:00 01/11/17 09:54 Insulin Detemir (Levemir Inj) 5 units Q12HR SQ 01/02/17 09:00 01/11/17 09:58 Fluconazole (Diflucan) 200 mg DAILY PO 01/03/17 11:00 01/11/17 09:55 Filgrastim (Neupogen Inj) 480 mcg DAILY@14 SQ 01/03/17 14:00 01/10/17 13:59 Metoprolol Tartrate (Lopressor Inj) 5 mg Q6H PRN IV PUSH RAPID HEART RATE 01/05/17 10:45 01/08/17 03:19 Miscellaneous Information Patient in critical care unit? Ass... [id number] .XX 01/05/17 22:30 01/05/17 22:30 Diltiazem HCl 125 mg/Sodium Chloride 125 ml @ 5 mls/hr TITRATE PRN IV Tachycardia 01/06/17 13:30 01/09/17 07:07 Daptomycin 700 mg/ Sodium Chloride 100 ml @ 200 mls/hr Q24H IV 01/06/17 16:00 01/10/17 17:00 Sodium Chloride 1,000 ml @ 84 mls/hr [id number] IV 01/07/17 13:00 01/11/17 00:41 Acetaminophen (Tylenol) 650 mg Q4H PRN PO SEE LABEL COMMENTS 01/09/17 08:00 01/09/17 08:20 Diphenhydramine HCl (Benadryl) 25 mg Q4H PRN PO SEE LABEL COMMENTS 01/09/17 08:00 01/09/17 08:20 Chlorhexidine Gluconate (Peridex 0.12% Liq) 15 ml BID@08,20 MT 01/09/17 20:00 01/11/17 09:54 Fentanyl Citrate 250 ml @ 5 mls/hr TITRATE PRN IV SEDATION 01/09/17 12:30 01/11/17 10:00 Phenylephrine HCl 40 mg/Dextrose 500 ml @ 30 mls/hr TITRATE PRN IV Blood pressure management 01/09/17 13:00 01/10/17 04:50 Objective Remarks GENERAL: Intubated, sedated male lying in hospital bed. SKIN: Warm and dry. HEAD: Normocephalic. EYES: No injection or drainage. NECK: Supple, trachea midline. CARDIOVASCULAR: IRR. telemetry shows afib. RESPIRATORY: on mechanical ventilation. GASTROINTESTINAL: Abdomen nondistended. EXTREMITIES: No cyanosis NEUROLOGICAL: intubated, sedated Assessment/Plan Assessment Mr. 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 His disease is associated with very complex cytogenetics and unfortunately this predicts a poor outcome and high rates of relapse despite appropriate and aggressive treatment. He is status post induction remission therapy with Hyper-CVAD with Rituxan and intrathecal chemotherapy which was delivered in mid-October of 2016. 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 Plan 1. Initiated on chemotherapy of hyper-CVAD arm B from 12/30/2016 through 2016. He is now cytopenic secondary to myelosuppression from chemotherapy. He will remain on Neupogen 480 g subcutaneous daily for neutropenia. 2. Acute renal failure--worsening today, no sign of TLS. will consult nephrology 3. MRSA bacteremia: --on daptomycin. --His infusion port was removed on 01/05/2017. --Repeat blood cultures dated 01/07/2017 also positive for gram-positive cocci. --Blood cultures dated 01/08/2017 showed no growth 4. Progressive respiratory distress with increasing oxygen requirements: --was intubated on 01/09. 5. Pancytopenia: Neutrophils improved to 1.9 today. Platelets are 7K, will transfuse 1 unit irradiated platelets. 6. Transaminitis: likely due to Methotrexate. improving today patient discussed code status with Dr. Rice previously--> indicated intubation would be agreeable to him, he declines cardiac resuscitation. --Mihai Pastor (Patient's Brother in Law) is health care surrogate Attending Statement The exam, history, and the medical decision-making described in the above note were completed with the assistance of the mid-level provider. I reviewed and agree with the findings presented. I attest that I had a [id number] encounter with the patient on the same day, and personally performed and documented my assessment and findings in the medical record. Remains on vent. Not responsive. No bleeding noted. Neutropenia improving. Platelet trended lower. LFT improved but renal function is worse. Plan to transfuse platelet. Consult nephrology for worsening renal function. Prognosis is poor. Addendum Discussed with , family decided to w/d supportive care. I have discussed with Dr. Rice and he will discussed further with . Ava Akhtar Jan 11, 2017 10:43 Gaurav Castaneda MD Jan 11, 2017 15:32
--- NOTE | 2017-01-11 11:01 | HHI.IDPN ---
Note Infectious Disease Note ID COVERAGE: Patient is unresponsive. Blood culture 01/08 - no growth. Port removed - 01/05 Afebrile. Pancytopenia persists. LFT elevated. Discussed with RN. Patient is a 71-year-old male was diagnosed in mid-October of 2016 with acute B- cell lymphoblastic leukemia (Orient chromosome negative). He received induction chemotherapy at that time, and hospitalization complicated by neutropenic fevers. He also developed a rash and subsequently underwent skin biopsy which revealed vacuolar interface dermatitis. Differential diagnosis of that biopsy included fixed drug eruption, erythema multiforme, GVHD, and conncetive tissue disease. His skin rash improved with systemic corticosteroids. He has been admitted for consolidation chemotherapy. He received MTX and cytarabine. Since yesterday, he started having fevers. he is complaining of body malaise, diffuse body aches, and neck pain. Denies headache or photophobia. No respiratory complaints. No GI or complaints. His skin is better, and less itchy. Antibiotics Cubicin Cefepime Diflucan Lines Port - removed 01/05 Past Medical History 1. B-cell ALL (Orient chromosome negative). 2. Acute kidney failure (now recovered). 3. 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 4. Severe rash, currently present. 5. Protein calorie malnutrition. 6. Chemotherapy-related myelosuppression. 7. Atrial fibrillation. Past Surgical History 1. Appendectomy. 2. Benign polyp removal from the throat. 3. Lumbar puncture with intrathecal chemotherapy injection. 4. Port placement. 5. Bone marrow biopsy and aspiration. 6. Skin biopsy Allergies: Coded Allergies: No Known Allergies (Unverified , 10/24/16) OBJECTIVE: Vital Signs Date Time Temp Pulse Resp B/P (MAP) Pulse Ox O2 Delivery O2 Flow Rate FiO2 01/11/17 08:43 92 70 01/11/17 06:00 87 01/11/17 05:30 94 55 01/11/17 04:15 95 70 01/11/17 04:00 100 01/11/17 04:00 97.4 80 18 95/55 (68) 94 01/11/17 04:00 80 01/11/17 03:23 97 70 01/11/17 02:00 78 01/11/17 01:58 98 80 01/11/17 00:00 80 01/11/17 00:00 97.2 80 16 89/55 (66) 97 01/11/17 00:00 100 01/10/17 22:14 99 90 01/10/17 22:00 78 01/10/17 20:00 98.0 75 16 87/54 (65) 94 01/10/17 20:00 100 01/10/17 20:00 75 01/10/17 19:50 94 100 01/10/17 19:00 93 Mechanical Ventilator 50 01/10/17 18:00 78 01/10/17 17:15 80 16 101/52 (68) 93 01/10/17 17:02 79 16 86/54 (65) 93 01/10/17 17:00 81 17 93 01/10/17 16:45 78 16 80/51 (61) 93 01/10/17 16:30 79 16 89/50 (63) 93 01/10/17 16:26 94 100 01/10/17 16:15 81 17 89/55 (66) 93 01/10/17 16:00 100 01/10/17 16:00 98.6 80 17 93/58 (70) 93 01/10/17 16:00 80 01/10/17 15:45 80 16 88/53 (65) 93 01/10/17 15:30 79 17 106/56 (73) 93 01/10/17 15:15 82 16 108/53 (71) 93 01/10/17 15:00 82 17 92/54 (67) 93 01/10/17 14:45 80 17 107/61 (76) 94 01/10/17 14:30 87 16 99/51 (67) 93 01/10/17 14:15 82 16 105/58 (74) 94 01/10/17 14:00 84 01/10/17 14:00 84 17 98/51 (67) 93 01/10/17 13:00 83 16 107/56 (73) 90 01/10/17 12:51 86 17 109/58 (75) 88 01/10/17 12:45 84 18 89/51 (64) 94 01/10/17 12:30 87 18 105/52 (69) 91 01/10/17 12:15 84 23 113/57 (75) 88 01/10/17 12:09 89 19 102/52 (69) 90 01/10/17 12:00 98.2 86 19 113/54 (73) 90 01/10/17 12:00 86 01/10/17 12:00 95 100 01/10/17 12:00 75 01/10/17 11:45 83 19 107/57 (74) 90 01/10/17 11:36 89 65 01/10/17 11:30 84 19 111/61 (78) 90 01/10/17 11:15 87 19 111/56 (74) 90 01/10/17 11:00 85 18 131/58 (82) 90 Laboratory Tests Test 01/10/17 05:05 01/11/17 04:50 White Blood Count 1.1 TH/MM3 2.3 TH/MM3 Red Blood Count 2.98 MIL/MM3 2.85 MIL/MM3 Hemoglobin 9.5 GM/DL 9.0 GM/DL Hematocrit 27.9 % 26.8 % Mean Corpuscular Volume 93.7 FL 94.0 FL Mean Corpuscular Hemoglobin 31.9 PG 31.5 PG Mean Corpuscular Hemoglobin Concent 34.0 % 33.5 % Red Cell Distribution Width 20.3 % 20.4 % Platelet Count 24 TH/MM3 7 TH/MM3 Mean Platelet Volume 8.9 FL 8.9 FL CBC Comment AUTO DIFF AUTO DIFF Differential Total Cells Counted 50 100 Neutrophils % (Manual) 12 % 43 % Band Neutrophils % 30 % 28 % Lymphocytes % 22 % 7 % Monocytes % 16 % 12 % Eosinophils % 2 % Neutrophils # (Manual) 0.7 TH/MM3 1.9 TH/MM3 Metamyelocytes 16 % 9 % Myelocytes 2 % 1 % Nucleated Red Blood Cells 2 /100 WBC Differential Comment FINAL DIFF MANUAL FINAL DIFF MANUAL Platelet Estimate LOW RARE Platelet Morphology Comment NORMAL NORMAL Acanthocytes OCC Toxic Granulation 2+ Dohle Bodies PRESENT Laboratory Tests Test 01/10/17 05:05 01/11/17 04:50 01/11/17 10:15 Blood Urea Nitrogen 76 MG/DL Creatinine 2.37 MG/DL Random Glucose 243 MG/DL Total Protein 5.6 GM/DL Albumin 1.9 GM/DL Calcium Level 8.0 MG/DL Alkaline Phosphatase 58 U/L Aspartate Amino Transf (AST/SGOT) 795 U/L Alanine Aminotransferase (ALT/SGPT) 597 U/L Total Bilirubin 6.0 MG/DL Sodium Level 139 MEQ/L Potassium Level 4.4 MEQ/L Chloride Level 109 MEQ/L Carbon Dioxide Level 15.9 MEQ/L Anion Gap 14 MEQ/L Estimat Glomerular Filtration Rate 27 ML/MIN Uric Acid 5.1 MG/DL 5.4 MG/DL Phosphorus Level 5.0 MG/DL Magnesium Level 2.4 MG/DL Lactate Dehydrogenase 496 U/L Total Creatine Kinase 116 U/L Microbiology Date/Time Source Procedure Growth Status 01/08/17 07:45 Blood Peripheral Aerobic Blood Culture Pending Received 01/08/17 07:45 Blood Peripheral Anaerobic Blood Culture Pending Received 01/07/17 12:00 Blood Peripheral Aerobic Blood Culture - Preliminary NO GROWTH IN 1 DAY Resulted 01/07/17 12:00 Blood Peripheral Anaerobic Blood Culture - Preliminary NO GROWTH IN 1 DAY Resulted 01/07/17 11:00 Blood Peripheral Aerobic Blood Culture - Preliminary NO GROWTH IN 1 DAY Resulted 01/07/17 11:00 Blood Peripheral Anaerobic Blood Culture - Preliminary NO GROWTH IN 1 DAY Resulted 01/05/17 15:14 Blood Peripheral Aerobic Blood Culture - Final S. Aureus Mrsa Resulted 01/05/17 15:14 Blood Peripheral Anaerobic Blood Culture - Preliminary NO GROWTH IN 2 DAYS Resulted 01/05/17 16:52 Catheter Tip Subclavian Wound Culture - Final S. Aureus Mrsa Complete Imaging Chest CT 01/10/17 0000 Signed Impressions: Service Date/Time: Tuesday, January 10, 2017 12:31 - CONCLUSION: 1. Patchy alveolar consolidations bilaterally consistent with probable pneumonia. Clinical correlation is recommended. 2. Bibasilar atelectasis may also be present. 3. Subpleural emphysematous blebs are noted bilaterally. 4. Coronary artery calcifications. Ishaan Tang MD Abdomen/Pelvis CT 01/10/17 0000 Signed Impressions: Service Date/Time: Tuesday, January 10, 2017 12:31 - CONCLUSION: 1. No evidence of intra-abdominal abscess. 2. Scattered patchy opacities within the visualized lung bases consistent with atelectasis and/or pneumonia. Clinical correlation is recommended. 3. Small bilateral pleural effusions. 4. Uncomplicated sigmoid diverticulosis. 5. Minimal ascites. 6. Coronary artery calcifications. Ishaan Tang MD Abdomen X-Ray 01/06/17 0000 Signed Impressions: Service Date/Time: Friday, January 06, 2017 08:29 - CONCLUSION: No dilated loops of small or large bowel.. Dion Alford MD Chest X-Ray 01/05/17 1021 Signed Impressions: Service Date/Time: Thursday, January 05, 2017 10:34 - CONCLUSION: 1. Minimal bibasilar airspace disease, likely atelectasis. 2. Otherwise, no acute abnormality or significant interval change. Armando Martínez MD Neck CT 01/05/17 0000 Signed Impressions: Service Date/Time: Thursday, January 05, 2017 11:54 - CONCLUSION: Negative CT soft tissue neck with contrast. Dion Alford MD Head CT 01/05/17 0000 Signed Impressions: Service Date/Time: Thursday, January 05, 2017 11:54 - CONCLUSION: Negative noncontrast CT Wander Hodges MD GENERAL: Patient is in no acute distress. On the vent. HEENT: No icterus. NECK: Supple. LUNGS: Marked decreased breath sounds. CARDIAC: Irregular rate and rhythm. ABDOMEN: Soft, decreased bowel sounds. EXTREMITIES: No CCE. SKIN: No rash. IMPRESSION MRSA sepsis, high grade - port removed 01/05 - BC (+) 01/02-01/05 - echo not good study Fevers, patient with ALL, receiving consolidation chemotherapy - due to sepsis - temps low grade Lethargic and SOB, due to sepsis ALL, on consolidation chemo Neutropenia Renal insufficiency, worse Skin rash Oral thrush RECOMMENDATION Continue Cubicin for MRSA (Vanco JENIFER 2.0, and BC still positive) - follow CPK while on Cubicin Follow the BC Continue other empiric Abx: Cefepime, Stop Diflucan since LFT's are elevated. Monitor temps Monitor counts Neutropenic precautions Monitor progress Gene Hewitt MD Jan 11, 2017 11:01
[2017-01-11 11:11] LABS: APTT (PATIENT) 37.2 SEC (24.3-30.1); INTERNATIONAL NORMALIZED RATIO 1.3 RATIO; PROTHROMBIN TIME - PATIENT 14.7 SEC (9.8-11.6)
[2017-01-11 11:41] LABS: BICARBONATE 18.6 MEQ/L (21.0-32.0); MAGNESIUM 2.3 MG/DL (1.5-2.5); POTASSIUM 5.2 MEQ/L (3.5-5.1)
[2017-01-11 11:55] LABS: INDIRECT BILIRUBIN 0.7 MG/DL (0.0-0.8); TOTAL BILIRUBIN ADULT 3.7 MG/DL (0.2-1.0)
[2017-01-11] MEDS: FILGRASTIM 480 MCG/1.6 ML VIAL SQ SCH (13:23)
--- NOTE | 2017-01-11 15:07 | HHI.CCPN ---
Subjective Remarks/Hospital Course Hospital Course: This is a 71-year-old male with a history of B-cell lymphoma undergoing chemotherapy who was originally admitted to the hospital with febrile neutropenia and was found to have MRSA bacteremia. He is maintained on IV vancomycin. Despite this he is been increasingly more toxic appearing. His respiratory rate is been increasing and he is experiencing increasing respiratory distress. The patient tells me he feels fatigued. He endorses fever, chills, shortness of breath. He says he just doesn't feel well. Throughout the day stays become increasingly dyspneic with an rising respiratory rate. His ABG demonstrates a severe metabolic acidosis with a base deficit of 10. His blood cultures have been positive for 3 days despite adequate therapy. He does have a Port-A-Cath that remains in place. Critical care medicine is consulted to evaluate and manage his respiratory distress and persistent bacteremia, severe neutropenic sepsis 01/06: continues to be in significant respiratory distress with a severe non- gapped metabolic acidosis. also has been on diamox since 12/29. bicarbonate drip started this morning. lactate still < 2. hemodynamics stable. clinically appears hypovolemic. tachycardia persists. port removed yesterday. blood cultures continue to be positive for MRSA. on vancomycin with appropriate trough. 01/07: Brother at bedside. Arousable and will follow commands. Very lethargic however somewhat improved from yesterday according to RN. Currently afebrile. Very poor appetite. 01/08: Tmax 100. Currently 99.4. More awake and alert. Very poor appetite. Noted Doppler placement recommended per hematology however platelets are currently at 10. 01/09: clinically declined overnight. now on NRB mask. still talking and answering questions, but now dyspneic and in more distress. talked with his family and got palliative care involved and family requests continuation of full code and aggressive care. intubated (see separate procedure note). post- intubation, hypotensive and started on phenylephrine and given 1L LR bolus. remains very critically ill and declining. 01/10: no improvements. intermittently on low-dose phenylephrine. Cr worsening. Uric acid slightly elevated. high phos levels. ?early tumor lysis?. remains with significant encephalopathy and respiratory failure. Subjective: 01/11: family upset overnight because patient has TF running through orogastric tube. I had a long discussion today and they do not think the patient will survive, and I agree with their assessment. They would like to transition their goals to comfort and pursue palliative extubation. Given that he has had no further improvement, I agree that this is appropriate. Objective Vital Signs Date Time Temp Pulse Resp B/P (MAP) Pulse Ox O2 Delivery O2 Flow Rate FiO2 01/11/17 14:00 96 01/11/17 12:00 100 01/11/17 12:00 97.9 17 105/58 (74) 92 01/11/17 07:00 Mechanical Ventilator 01/09/17 08:16 8.00 Intake and Output 01/11/17 01/11/17 01/12/17 08:00 16:00 00:00 Intake Total 1299 ml 1010 ml Output Total 200 ml Balance 1099 ml 1010 ml Result Diagram: 01/11/17 0450 01/11/17 1015 Imaging Last Impressions Abdomen X-Ray 01/06/17 0000 Signed Impressions: Service Date/Time: Friday, January 06, 2017 08:29 - CONCLUSION: No dilated loops of small or large bowel.. Dion Alford MD Chest X-Ray 01/05/17 1021 Signed Impressions: Service Date/Time: Thursday, January 05, 2017 10:34 - CONCLUSION: 1. Minimal bibasilar airspace disease, likely atelectasis. 2. Otherwise, no acute abnormality or significant interval change. Armando Martínez MD Neck CT 01/05/17 0000 Signed Impressions: Service Date/Time: Thursday, January 05, 2017 11:54 - CONCLUSION: Negative CT soft tissue neck with contrast. Dion Alford MD Head CT 01/05/17 0000 Signed Impressions: Service Date/Time: Thursday, January 05, 2017 11:54 - CONCLUSION: Negative noncontrast CT Wander Hodges MD Objective Remarks GENERAL: 71-year-old male, intubated, sedated. HEENT: Normocephalic. Atraumatic. Pupils equal, round, reactive about 3 mm bilaterally, conjugate. Mucous membranes are moderately moist and pink. NECK: Trachea is midline. There is no JVD. CHEST: Incision over port removal/left chest is clean dry and intact. intubated , fio2 40%. peep 5. PRVC mode. CARDIOVASCULAR: IRR. afib by tele. ABDOMEN: Soft, nontender, nondistended. No guarding. MUSCULOSKELETAL: Pulses 2+. No peripheral edema. NEUROLOGICAL: RASS -2/-3. Moves all 4 extremity spontaneously. intermittently following commands. A/P Assessment and Plan Assessment: 71yM with B cell lymphoma undergoing chemotherapy with MRSA bacteremia which is persistent, severe sepsis, acidosis, acute kidney injury and acute hypoxic and hypercarbic respiratory failure requiring intubation and mechanical ventilation. No improvements. family wants to pursue withdraw of care , and I think this is appropriate. Neuro/Psych: Acute encephalopathy/toxic metabolic fentanyl for goal RASS -2. daily sedation vacation. CT brain/ 01/05 with no acute findings. CV: A. fib with RVR Hypotension associated with sedation Currently on metoprolol 25 mg twice a day, diltiazem extended release 240 mg daily diltiazem drip Rate currently controlled. Appears a flutter currently 2-D echocardiogram 01/04 revealed EF 40-45%. Decreased LV systolic function. Cannot exclude vegetations. phenylephrine to maintain map > 65 mmHg. Resp: Acute hypoxic and hypercarbic respiratory failure intubated 01/09 for worsening respiratory distress and hypoxia vent bundle/hob at 30 degrees/nebs start daily SBTs wean fio2 for spo2 > 90% GI: Acute protein calorie malnutrition- severe continue TF. nutrition consult daily [facility] ICU electrolyte protocol. : Continue álvarez catheter given FAIZA and now poor mental status. Endo: Hypothyroidism Continue levothyroxine 25 g daily Continue allopurinol 200 mg daily for tumor lysis syndrome Renal: Acute kidney injury Monitor urine output Accurate I's and O's Currently on one half normal saline at 84 cc an hour Heme: History of B-cell CLL Dilaudid, a negative status post hyper CVAD/rituximab and intrathecal chemotherapy Pancytopenia including leukopenia, normocytic anemia thrombocytopenia Transfuse to thresholds per Dr. Rice, hematology receiving platelets today. ID: MRSA bacteremia - persistent. Current regimen daptomycin 700 mg IV every 24 hours and cefepime 2 g IV every 8 hours and fluconazole 200 mg daily Followed by infectious disease Likely will need JOSETTE once stable, but holding off given thrombocytopenia and neutropenia new LLL infiltrate on CXR, will obtain sputum culture. MSK: Osteoarthritis Continuing calcium carbonate vitamin D FEN: Hypokalemia ICU electrolyte protocol. daily BMP Access - Utilize peripheral IV. Central line if indicated Prophylaxis - GI - pantoprazole - DVT - SCD/holding pharmacological prophylaxis in light of thrombocytopenia Fentanyl/Versed as needed for pain and comfort. terminal extubation. will send to hospice if patient survives 24h. Grabiel Elliott MD Jan 11, 2017 15:07
[2017-01-11] MEDS ORDERED: MORPHINE SULFATE 4 MG/ML INJ IV PUSH PRN (15:15)
[2017-01-11] MEDS ORDERED: LORazepam 2 MG/ML VIAL IV PUSH ONE ×2 (15:15→15:45)
[2017-01-11] MEDS ORDERED: LORazepam 2 MG/ML VIAL IV PUSH PRN (15:15)
[2017-01-11] MEDS ORDERED: HYOSCYAMINE 0.5 MG/ML AMP IV PUSH ONE (15:15)
[2017-01-11] MEDS ORDERED: MORPHINE SULFATE 8 MG/ML INJ IV PUSH ONE (15:15)
[2017-01-11] MEDS ORDERED: MORPHINE SULFATE 4 MG/ML INJ IV PUSH ONE (15:45)
[2017-01-11] MEDS ORDERED: ACETAMINOPHEN 650 MG SUPP RECTAL PRN (15:45)
[2017-01-11] MEDS ORDERED: HYOSCYAMINE 0.5 MG/ML AMP IV PUSH PRN (15:45)
[2017-01-11] MEDS ORDERED: CEFEPIME INJ 2,000 MG in SODIUM CHLORIDE 0.9% INJ 100 ML IV SCH (18:00)
== END 2017-01-11 19:05 | disposition expired | DRG 837 ==
LOC: HCIS 06:38 → HIMN 01-05 16:10
PROVIDERS: ADMIT Internal Medicine Hematology & Oncology; ATTEND Internal Medicine Hematology & Oncology
PROC: 3E04305 Introduction of Other Antineoplastic into Central Vein, Percutaneous Approach (ICD-10-PCS; principal; 2016-12-30)
PROC: 30243N1 Transfusion of Nonautologous Red Blood Cells into Central Vein, Percutaneous Approach (ICD-10-PCS; 2016-12-31)
PROC: 0JPT0WZ Removal of Totally Implantable Vascular Access Device from Trunk Subcutaneous Tissue and Fascia, Open Approach (ICD-10-PCS; 2017-01-05)
PROC: 30243R1 Transfusion of Nonautologous Platelets into Central Vein, Percutaneous Approach (ICD-10-PCS; 2017-01-06)
PROC: 0BH17EZ Insertion of Endotracheal Airway into Trachea, Via Natural or Artificial Opening (ICD-10-PCS; 2017-01-09)
PROC: 5A1945Z Respiratory Ventilation, 24-96 Consecutive Hours (ICD-10-PCS; 2017-01-09)
DX: Z51.11 Encounter for antineoplastic chemotherapy (principal); A41.02 Sepsis due to Methicillin resistant Staphylococcus aureus; C91.00 Acute lymphoblastic leukemia not having achieved remission; Z51.5 Encounter for palliative care; R65.21 Severe sepsis with septic shock; E43 Unspecified severe protein-calorie malnutrition; D61.810 Antineoplastic chemotherapy induced pancytopenia; J96.01 Acute respiratory failure with hypoxia; J96.02 Acute respiratory failure with hypercapnia; G92 Toxic encephalopathy; N17.9 Acute kidney failure, unspecified; B37.0 Candidal stomatitis; E87.2 Acidosis; J98.11 Atelectasis; I48.92 Unspecified atrial flutter; T80.211A Bloodstream infection due to central venous catheter, initial encounter; I48.91 Unspecified atrial fibrillation; N18.9 Chronic kidney disease, unspecified; I12.9 Hypertensive chronic kidney disease with stage 1 through stage 4 chronic kidney disease, or unspecified chronic kidney disease; E03.9 Hypothyroidism, unspecified; T45.1X5A Adverse effect of antineoplastic and immunosuppressive drugs, initial encounter; T38.0X5A Adverse effect of glucocorticoids and synthetic analogues, initial encounter; R73.9 Hyperglycemia, unspecified; E87.6 Hypokalemia; L30.8 Other specified dermatitis; E86.9 Volume depletion, unspecified; E87.8 Other disorders of electrolyte and fluid balance, not elsewhere classified; M54.2 Cervicalgia; M19.90 Unspecified osteoarthritis, unspecified site; R74.0 Nonspecific elevation of levels of transaminase and lactic acid dehydrogenase [LDH]; Y84.8 Other medical procedures as the cause of abnormal reaction of the patient, or of later complication, without mention of misadventure at the time of the procedure; Z66 Do not resuscitate; Z68.35 Body mass index [BMI] 35.0-35.9, adult; Z86.711 Personal history of pulmonary embolism; Z87.891 Personal history of nicotine dependence
CPT/HCPCS: 31500; 36430; 36600; 70450; 70491; 71010; 71020; 71260; 74000; 74177; 76705; 76937; 80048; 80053; 80076; 80202; 80299; 81001; 81003; 82140; 82247; 82248; 82550; 82552; 82805; 82948; 83036; 83605; 83615; 83735; 83880; 84100; 84439; 84443; 84550; 85007; 85025; 85027; 85384; 85610; 85730; 86403; 86850; 86900; 86901; 86920; 87040; 87071; 87086; 87147; 87186; 87205; 87641; 93005; 93306; 93971; 94002; 94003; J0640; J0692; J0878; J1442; J1650; J1940; J1980; J2060; J2250; J2270; J2370; J2930; J3010; J3370; J3480; J7030; J7050; J7060; J7070; J7120; J7512; J9100; J9250; P9037; P9040; P9045; Q0166; Q9967